=== PATIENT | male | born 1940 | race Caucasian/White ===

== ENCOUNTER → 2017-10-09 | Outpatient (CLI) | payer MEDICARE ==
[~2017-10-09] MED LIST: DOBUTamine DRIP for NUC MED 500 MG in DEXTROSE/WATER 1 250ML.BAG IV ONE
--- NOTE | 2017-10-09 13:01 | ECHOS ---
STRESS ECHOCARDIOGRAM INDICATIONS: Preoperative. BASELINE HEART RATE: 77 BASELINE BLOOD PRESSURE: 154/66 MAXIMUM HEART RATE: 132 MAXIMUM BLOOD PRESSURE: 218/65 85% MPHR: 124 100% MPHR: 146 MAXIMUM STAGE REACHED: 3 TOTAL EXERCISE TIME: 7:00 CLINICAL INFORMATION: Patient was given dobutamine infusion according to the standard protocol. Peak heart rate of 132 was achieved. Maximum blood pressure of 218/65 mmHg was noted. Resting EKG shows normal sinus rhythm with a QRS morphology suggestive of incomplete right bundle branch block pattern was noted. No ST-segment depression suggestive of ischemia was noted. Occasional PACs were noted. An occasional run of atrial tachycardia were noted. The baseline echocardiographic images reveal normal left ventricular chamber size with normal left ventricular systolic function. At the peak dose of dobutamine infusion, normal increase in the wall thickness and contractility is noted. FINAL IMPRESSION: 1. This dobutamine stress echocardiographic study is negative for stress-induced ischemia. 2. EKG portion of the stress test not suggested ischemia. 3. Intermittent premature atrial contractions and occasional runs of nonsustained atrial tachycardia were noted. MMODL / IJN: [id number] /
== END | disposition home or self-care (01) ==
LOC: RADNMMAIN 10:47
PROVIDERS: ATTEND Internal Medicine
DX: Z01.818 Encounter for other preprocedural examination (principal); I47.1 Supraventricular tachycardia
CPT/HCPCS: 93017; 93350

== ENCOUNTER → 2018-05-03 | Outpatient (CLI) | payer MEDICARE ==
--- NOTE | 2018-05-03 15:37 | ECHOF ---
Referral Reason:I48.91 Atrial Fibillation MEASUREMENTS -------- HEIGHT: 175.3 cm WEIGHT: 97.5 kg BP: 138/85 IVSd: 1.2 cm (0.6 - 1.1) LVIDd: 3.2 cm (3.9 - 5.3) LVPWd: 1.3 cm (0.6 - 1.1) IVSs: 1.5 cm LVIDs: 2.3 cm LVPWs: 1.5 cm LAESV Index (A-L): 33.82 ml/m Ao Diam: 3.5 cm (2.0 - 3.7) AV Cusp: 1.7 cm (1.5 - 2.6) LA Diam: 2.3 cm (2.7 - 3.8) MV E Alexei: 1.02 m/s MV DecT: 172 ms MV A Alexei: 0.00 m/s MV E/A Ratio: 6197 AR PHT: 492 ms RAP: 5.00 mmHg RVSP: 25.18 mmHg FINDINGS -------- Atrial fibrillation. This was a technically adequate study. The left ventricular size is normal. There is mild concentric left ventricular hypertrophy. Overa ll left ventricular systolic function is mildly impaired with, an EF between 45 - 50 %. The right ventricle is normal in size and function. LA is moderately dilated 34-39 ml/m2 The right atrium is normal in size. Aortic valve is trileaflet and is mildly thickened. There is mild aortic regurgitation. There is no evidence of aortic stenosis. The mitral valve leaflets are mildly thickened. Mild mitral annular calcification present. Modera te mitral regurgitation is present. Trace tricuspid regurgitation present. Right ventricular systolic pressure is normal at < 35 mmHg. There is no evidence of pulmonary hypertension. The pulmonic valve was not well visualized. The aortic root size is normal. Normal inferior vena cava with normal inspiratory collapse consistent with estimated right atrial pre ssure of 5 mmHg. There is no pericardial effusion. CONCLUSIONS -------- 1. Atrial fibrillation. 2. This was a technically adequate study. 3. The left ventricular size is normal. 4. There is mild concentric left ventricular hypertrophy. 5. Overall left ventricular systolic function is mildly impaired with, an EF between 45 - 50 %. 6. LA is moderately dilated 34-39 ml/m2 7. Aortic valve is trileaflet and is mildly thickened. 8. There is mild aortic regurgitation. 9. The mitral valve leaflets are mildly thickened. 10. Mild mitral annular calcification present. 11. Moderate mitral regurgitation is present. 12. Trace tricuspid regurgitation present. 13. Right ventricular systolic pressure is normal at < 35 mmHg. 14. There is no evidence of pulmonary hypertension. 15. The pulmonic valve was not well visualized. 16. The aortic root size is normal. 17. There is no pericardial effusion. POSTAL SUPERVISOR: Ari Camarena RDCS
== END | disposition home or self-care (01) ==
LOC: RADECHMAIN 11:25
PROVIDERS: ATTEND Internal Medicine
DX: I48.91 Unspecified atrial fibrillation (principal); I08.0 Rheumatic disorders of both mitral and aortic valves
CPT/HCPCS: 93306

== ENCOUNTER → 2018-05-31 | Day surgery (SDC) | payer MEDICARE ==
[2018-05-29 09:19] VITALS: BMI 32.5
[~2018-05-31] MED LIST changes: -DOBUTamine DRIP for NUC MED 500 MG in DEXTROSE/WATER 1 250ML.BAG IV ONE; +FLECAINIDE 50 MG TAB PO SCH; +LACTATED RINGERS 1,000 ML IV SCH; +LIDOCAINE 1% INJ 10MG/ML (20 ML MDV) ONE; +LOSARTAN 25 MG TAB PO SCH; +METOPROLOL TARTRATE 25 MG TAB PO SCH; +MULTIVITAMINS, THERA 1 EACH TAB PO SCH; +PROPOFOL 10 MG/ML 20 ML VIAL IV ONE; +RIVAROXABAN 20 MG TAB PO SCH; +SODIUM CHLORIDE 0.9% 1,000 ML IV SCH; +TAMSULOSIN 0.4 MG CAP.ER.24H PO SCH
[2018-05-31] MEDS: BENZOCAINE SPRAY 1 CAN MUCOUS MEM ONE ×2 (07:12→07:14)
[2018-05-31 07:15] VITALS: RESP 16
[2018-05-31 08:01] VITALS: TEMP 97.2
--- NOTE | 2018-05-31 08:21 | CE ---
CARDIAC ELECTROPHYSIOLOGY REPORT CARDIOVERSION PROCEDURE NOTE. INDICATION: Atrial fibrillation. PROCEDURE: After explaining the procedure to the patient, its risks and complications, blood pressure, heart rate, O2 saturation was monitored. After spraying the throat with Cetacaine attempt to obtain images with the transesophageal echocardiogram were unsuccessful to obtain clear images because of poor contact. At that time, the probe was removed and a synchronized biphasic 200 joules cardioversion was performed with quaker of normal sinus rhythm. There was no immediate complication. LETTY / JAVADN: [id number] /
[2018-05-31 09:20] VITALS: BP 121/75; PULSE 64
== END | disposition home or self-care (01) ==
LOC: CATHCVL 06:24
PROVIDERS: ATTEND Internal Medicine Interventional Cardiology
DX: I48.1 Persistent atrial fibrillation (principal); Z79.01 Long term (current) use of anticoagulants; I42.8 Other cardiomyopathies; I10 Essential (primary) hypertension; I25.10 Atherosclerotic heart disease of native coronary artery without angina pectoris; G47.33 Obstructive sleep apnea (adult) (pediatric); J45.909 Unspecified asthma, uncomplicated; Z79.899 Other long term (current) drug therapy; Z87.891 Personal history of nicotine dependence
CPT/HCPCS: 93005; 92960; 84132; J2001; J2704

== ENCOUNTER → 2018-06-18 | Outpatient (CLI) | payer MEDICARE ==
[2018-06-18 12:21] LABS: Basophils % (A) 1 %; Eosinophils # (A) 0.2 k/uL (0-0.7); Eosinophils % (A) 3 %; HCT 47.3 % (39.0-53.0); HGB 15.3 gm/dL (13.0-17.5); Lymphocytes # (A) 1.2 k/uL (1.0-4.8); Lymphocytes % (A) 23 %; MCH 29.5 pg (25.0-35.0); MCHC 32.2 g/dL (31.0-37.0); MCV 91.6 fL (80.0-100.0); Mean Platelet Volume 6.9; Monocytes # (A) 0.3 k/uL (0-1.0); Monocytes % (A) 7 %; Neutrophils # (A) 3.2 k/uL (1.3-7.7); Neutrophils % (A) 64 %; Platelet Count 189 k/uL (150-450); RBC 5.17 m/uL (4.30-5.90); WBC 5.1 k/uL (3.8-10.6)
[2018-06-18 12:32] LABS: Potassium 4.9 mmol/L (3.5-5.1)
== END | disposition home or self-care (01) ==
LOC: LABPAT 11:41
PROVIDERS: ATTEND Internal Medicine Interventional Cardiology
DX: Z01.812 Encounter for preprocedural laboratory examination (principal); I48.1 Persistent atrial fibrillation
CPT/HCPCS: 36415; 80051; 82565; 84520; 85025

== ENCOUNTER → 2018-07-05 | Day surgery (SDC) | payer MEDICARE ==
[2018-07-04 08:49] VITALS: BMI 26.5
[~2018-07-05] MED LIST changes: +AMIODARONE 200 MG TAB PO SCH; -FLECAINIDE 50 MG TAB PO SCH; +FOLIC ACID 800 MG PO SCH; +IV FLUID CONTINUATION 1,000 ML IV ONE; -LIDOCAINE 1% INJ 10MG/ML (20 ML MDV) ONE; +NON-FORMULARY DRUG (Cyanocobalamin (Vitamin B-12) [Vitamin B-12] 1,000 MCG) PO SCH
[2018-07-05 06:57] VITALS: TEMP 98.8
--- NOTE | 2018-07-05 08:15 | CE ---
CARDIAC ELECTROPHYSIOLOGY REPORT PROCEDURE: Cardioversion. INDICATION: Atrial fibrillation PROCEDURE IN DETAIL: After explaining the procedure to the patient, its risks and complication, obtaining sedated state per Anesthesia Department, a synchronized biphasic cardioversion using 200 joules was performed with jehovah's witness normal sinus rhythm. There was no immediate complication. LETTY / ESPINOZA: [id number] /
[2018-07-05 08:26] VITALS: RESP 18
[2018-07-05 09:42] VITALS: BP 126/72; PULSE 84
== END | disposition home or self-care (01) ==
LOC: CATHCVL 06:20
PROVIDERS: ATTEND Internal Medicine Interventional Cardiology
DX: I48.1 Persistent atrial fibrillation (principal); I10 Essential (primary) hypertension; I48.92 Unspecified atrial flutter; Z79.899 Other long term (current) drug therapy; I42.9 Cardiomyopathy, unspecified; M19.90 Unspecified osteoarthritis, unspecified site; Z86.718 Personal history of other venous thrombosis and embolism; Z96.653 Presence of artificial knee joint, bilateral; Z79.01 Long term (current) use of anticoagulants; Z82.49 Family history of ischemic heart disease and other diseases of the circulatory system
CPT/HCPCS: 92960; J2704

== ENCOUNTER 2018-08-16 20:43 | Emergency (ER) | payer MEDICARE ==
[2018-08-16 20:51] VITALS: TEMP 98.4
[2018-08-16] MEDS ORDERED: diphenhydrAMINE 50 MG CAP PO STA (20:58)
[2018-08-16 21:45] VITALS: BP 142/78; PULSE 68; RESP 16
--- NOTE | 2018-08-16 21:55 | ED ---
Allergic Reaction HPI - General Source: patient Mode of arrival: ambulatory Limitations: no limitations <Janeen Garza - Last Filed: 08/17/18 00:09> <Arina Cardoza - Last Filed: 08/17/18 01:19> - General Chief complaint: Allergic Reaction Stated complaint: allergic reaction Time Seen by Provider: 08/16/18 20:58 - History of Present Illness Initial Comments: 77-year-old male with past medical history of atrial fibrillation asthma presenting today for chief complaint of hives. Patient states that 20 years ago he had an ALLERGIC reaction to shrimp. Today he was eating shrimp, which he has been doing for the last 10 years without any allergic reaction since the isolated reaction 20 years ago. 20 minutes prior to ingestion of the shrimp patient noticed hives over the face chest and upper extremities as well as the abdomen. Patient denies any lip swelling, tongue swelling, neck swelling, difficulty breathing, dyspnea or coffee swallowing, dizziness headache or confusion. Patient denies any diarrhea, fever. Patient states that he feels well he was just concerned he was having ALLERGIC reaction due to the hives and decided to present to the emergency department. Patient denies any new medications. Pt admits to pruritus. Pt did not take anything prior to arrival. Upon arrival patient appears well. VS stable. (Janeen Garza) - Related Data Home Medications Medication Instructions Recorded Confirmed Albuterol Inhaler [Ventolin Hfa 1 - 2 puff INHALATION Q6HR PRN 05/29/18 07/05/18 Inhaler] Cyanocobalamin (Vitamin B-12) 1,000 mcg PO DAILY 05/29/18 07/05/18 [Vitamin B-12] Folic Acid 800 mg PO DAILY 05/29/18 07/04/18 Losartan Potassium [Cozaar] 25 mg PO HS 05/29/18 07/04/18 Metoprolol Tartrate 25 mg PO BID 05/29/18 07/04/18 Multivitamins, Thera [Multivitamin 1 tab PO DAILY 05/29/18 07/04/18 (formulary)] Rivaroxaban [Xarelto] 20 mg PO HS 05/29/18 07/05/18 Tamsulosin HCl [Flomax] 0.4 mg PO HS 05/29/18 07/05/18 Previous Rx's Medication Instructions Recorded Amiodarone [Cordarone] 200 mg PO DAILY #90 tab 07/05/18 Cetirizine HCl [Zyrtec] 10 mg PO DAILY 7 Days #7 tab 08/16/18 Allergies Allergy/AdvReac Type Severity Reaction Status Date / Time shellfish derived [Shrimp] Allergy Rash/Hives Verified 08/16/18 20:51 Review of Systems ROS Other: All systems not noted in ROS Statement are negative. Constitutional: Denies: fever Eyes: Denies: vision change ENT: Denies: throat pain Respiratory: Denies: cough, dyspnea, wheezes, hemoptysis, stridor Cardiovascular: Denies: chest pain, dyspnea on exertion, syncope Gastrointestinal: Denies: abdominal pain, nausea, vomiting, diarrhea, constipation Skin: Reports: rash (CHPI) Neurological: Denies: headache, weakness, numbness, paresthesias, confusion, abnormal gait <Janeen Garza L - Last Filed: 08/17/18 00:09> ROS Other: All systems not noted in ROS Statement are negative. <Arina Cardoza P - Last Filed: 08/17/18 01:19> ROS Statement: Those systems with pertinent positive or pertinent negative responses have been documented in the HPI. Past Medical History Past Medical History: Atrial Fibrillation, Asthma, Deep Vein Thrombosis (DVT), Hearing Disorder / Deafness, Osteoarthritis (OA), Pneumonia Additional Past Medical History / Comment(s): Hx pneumonia yrs ago. Hiatal hernia. Hx kidney stones. Use of bilateral hearing aids. History of Any Multi-Drug Resistant Organisms: None Reported Past Surgical History: Joint Replacement Additional Past Surgical History / Comment(s): Bilateral knee replacements., LIS and cardioversion 05/31/18 Past Anesthesia/Blood Transfusion Reactions: No Reported Reaction Past Psychological History: No Psychological Hx Reported Smoking Status: Former smoker Past Alcohol Use History: Rare Past Drug Use History: None Reported - Past Family History Mother Family Medical History: No Reported History <Janeen Garza - Last Filed: 08/17/18 00:09> General Exam Limitations: no limitations <Janeen Garza - Last Filed: 08/17/18 00:09> <Arina Cardoza P - Last Filed: 08/17/18 01:19> - General Exam Comments Initial Comments: General: The patient is awake and alert, in no distress, and does not appear acutely ill. Eye: Pupils are equal, round and reactive to light, extra-ocular movements are intact. No nystagmus. There is normal conjunctiva bilaterally. No signs of icterus. Ears, nose, mouth and throat: There are moist mucous membranes and no oral lesions. No swelling noted of the tongue, lips neck or face Neck: The neck is supple, there is no tenderness or JVD. Cardiovascular: There is a regular rate and rhythm. No murmur, rub or gallop is appreciated. Respiratory: Lungs are clear to auscultation, respirations are non-labored, breath sounds are equal. No wheezes, stridor, rales, or rhonchi. Musculoskeletal: Normal ROM, no tenderness. Strength 5/5. Sensation intact. Pulses equal bilaterally 2+. Neurological: A&O x 3. CN II-XII intact, There are no obvious motor or sensory deficits. Coordination appears grossly intact. Speech is normal. Skin: Skin is warm and dry. Raised wheels of various sizes on UE bilaterally face, chest and abdomen. Psychiatric: Cooperative, appropriate mood & affect, normal judgment. (Janeen Garza) Vital Signs 08/16/18 08/16/18 20:48 21:43 Temperature 98.4 F Pulse Rate 87 68 Respiratory 18 16 Rate Blood Pressure 125/66 142/78 O2 Sat by Pulse 98 99 Oximetry Medical Decision Making <Janeen Garza - Last Filed: 08/17/18 00:09> <Arina Cardoza - Last Filed: 08/17/18 01:19> - Medical Decision Making Patient evaluated by myself and Dr. Cardoza in person. Patient has uticaria in the areas mentioned above. Patient was given 50 mg of Benadryl. Patient stated that this helped with the itching, and the wheals appear to diminish in size and an in the affected areas. Patient does not show any signs of respiratory distress, anaphylactic or angioedema. Patient states that he is ready to go home. Patient is given a prescription for Zyrtec 1 tablet daily for 7 days or until symptom resolution and take Benadryl every 6-8 hours as directed on bottle for itching. Patient is to follow-up with primary care provider one to two days. Patient was instructed to refrain from eating any types of shellfish. As well as obtain a referral from primary care provider for an fitter machinist. Patient agrees with this plan. Plan discussed with Dr. Cardoza who agrees. Patient discharged in stable condition (Janeen Garza) I personally saw and evaluated the patient. He had no oral pharyngeal swelling. No angioedema. No wheezing. No complaint of chest tightness or tightness in his throat. He did note to have a couple of hives on his left forearm. These it improved after taking Benadryl. This 70 feel the patient is stable for discharge home. Return parameters were discussed. Avoidance of shellfish was discussed. All questions pertaining care were answered best my ability patient was discharged home in stable condition (Arina Cardoza) Disposition Is patient prescribed a controlled substance at d/c from ED?: No Time of Disposition: 21:54 <Janeen Garza - Last Filed: 08/17/18 00:09> <Arina Cardoza - Last Filed: 08/17/18 01:19> Clinical Impression: Acute urticaria, Shellfish allergy Disposition: HOME SELF-CARE Condition: Good Instructions: Urticaria (ED) Additional Instructions: Please use medication as discussed. Please follow-up with family doctor in the next 2 days, for fitter machinist referral. PLEASE AVOID ALL SHELLFISH as discussed. Please return to emergency room if the symptoms increase or worsen or for any other concerns. Prescriptions: Cetirizine HCl [Zyrtec] 10 mg PO DAILY 7 Days #7 tab Referrals: Buzz Zimmerman MD [Primary Care Provider] - 1-2 days
== END 2018-08-16 22:07 | disposition home or self-care (01) ==
LOC: EC 20:43
DX: L50.9 Urticaria, unspecified (principal); I25.10 Atherosclerotic heart disease of native coronary artery without angina pectoris; Z91.013 Allergy to seafood; Z86.718 Personal history of other venous thrombosis and embolism; Z96.653 Presence of artificial knee joint, bilateral; Z87.891 Personal history of nicotine dependence; Z79.01 Long term (current) use of anticoagulants; Z79.899 Other long term (current) drug therapy
CPT/HCPCS: 99282

== ENCOUNTER → 2018-09-03 | Outpatient (CLI) | payer MEDICARE ==
[2018-09-03 13:04] LABS: Calcium 9.3 mg/dL (8.4-10.2); Potassium 4.6 mmol/L (3.5-5.1)
== END ==
LOC: LABWHC1 12:01
PROVIDERS: ATTEND Internal Medicine Interventional Cardiology
DX: I48.1 Persistent atrial fibrillation (principal); I10 Essential (primary) hypertension; I42.8 Other cardiomyopathies
CPT/HCPCS: 36415; 80048; 84443

== ENCOUNTER → 2021-03-08 | Outpatient (CLI) | payer MEDICARE ==
--- NOTE | 2021-03-08 15:05 | US ---
EXAMINATION TYPE: US venous doppler duplex LE RT DATE OF EXAM: 03/08/2021 2:51 PM COMPARISON: NONE CLINICAL HISTORY: 80-year-old male S80.11XA, Hematoma R Lower Extremity, Pain L Lower. History of DVT years ago, on Xarelto, recent rubio injury during fall, palpable at injury SIDE PERFORMED: Right TECHNIQUE: The lower extremity deep venous system is examined utilizing real time linear array sonog reynaldo with graded compression, doppler sonography and color-flow sonography. VESSELS IMAGED: Common Femoral Vein Deep Femoral Vein Greater Saphenous Vein * Femoral Vein Popliteal Vein Small Saphenous Vein * Proximal Calf Veins Posterior tibial vein (* superficial vessels) Right Leg: Negative for DVT. There is a 4.3 cm complex collection along the anterior rubio at area of palpable and injury IMPRESSION: 1. No evidence for DVT within the right lower extremity. 2. A 4.3 cm complex collection within the subcutaneous layer of the anterior right rubio along the sit e of patient's injury. Findings most likely reflects a hematoma. Clinical follow-up to ensure gradual involution. If the finding persists or enlarges, repeat ultrasound will be recommended.
== END | disposition home or self-care (01) ==
LOC: RADUSWWP 14:19
PROVIDERS: ATTEND Internal Medicine
DX: S80.11XA Contusion of right lower leg, initial encounter (principal); Z86.718 Personal history of other venous thrombosis and embolism

== ENCOUNTER → 2021-04-07 | Outpatient (CLI) | payer MEDICARE ==
--- NOTE | 2021-04-07 15:35 | CT ---
EXAMINATION TYPE: CT angio lower extremity RT DATE OF EXAM: 04/07/2021 COMPARISON: None HISTORY: 80-year-old male S80.11XA , Right lower leg hematoma after fall. TECHNIQUE: Contiguous axial scanning of the abdomen and pelvis with bilateral lower extremity runoff performed with IV Contrast, patient injected with 100ml mL of Isovue 370. Arterial imaging is perform ed. Coronal/sagittal reconstructions performed. 3-D reconstructions generated on a dedicated workstat ion. CT DLP: 1553.4 mGycm Automated exposure control for dose reduction was used. FINDINGS: Abdomen: Heart mildly enlarged. No pericardial effusion. Small hiatal hernia. Some patchy changes in the lower lungs probably areas of atelectasis. Calcified granuloma left base. Arterial phase imaging of the liver, gallbladder, adrenal glands, spleen, pancreas shows no gross abn ormality. 5 mm nonobstructive right renal calculus. A couple 4 mm nonobstructive left renal calculi and a 1.4 c m cortical hypodensity lower pole left kidney likely cysts. No dilated small bowel, free fluid, or free air. No mesenteric or retroperitoneal lymphadenopathy. Normal appendix. Mild stool burden. Mildly redundant sigmoid colon. No pericolonic inflammatory blake es. Small fatty umbilical hernia. Pelvis: Bladder partially distended. Prostate gland mildly enlarged at 4.6 cm wide. No abnormal fluid collect ion in the pelvis. Inguinal lymph nodes some of which are borderline to mildly enlarged measuring up to 1.8 cm on the left and 1.7 cm on the right, refer to coronal image 22 and 27. Lower extremities: Bilateral total knee arthroplasties result in extensive metal hardware artifact limiting the evaluati on. Asymmetric soft tissue swelling of the right leg, right ankle, and right foot. No edema along the rebeca per fascial planes and no soft tissue air is seen. Vasculature: No evidence for AAA. The visceral arteries of the abdomen are patent. Duplex right renal artery. Scat tered mild atherosclerotic calcifications infrarenal abdominal aorta. There is normal bilateral runoff into the foot with only small segments of the bilateral popliteal ar charlene obscured by the metal hardware artifact. Bones: Moderate degenerative disc disease L2-L3. Hypertrophic facet arthropathy mid to lower lumbar spine. G rade 1 anterolisthesis of L4-L5. Bulky anterior plate spondylosis lower thoracic spine. IMPRESSION: 1. NORMAL BILATERAL LOWER EXTREMITY RUNOFF. 2. ASYMMETRIC SOFT TISSUE SWELLING OF THE RIGHT LEG, ANKLE, AND FOOT. NO SIZABLE FOCAL HEMATOMA SEEN. 3. BORDERLINE AND MILDLY ENLARGED INGUINAL LYMPH NODES ON BOTH SIDES MEASURING UP TO 1.8 CM PROBABLY REACTIVE/POST INFLAMMATORY. RECOMMEND CLINICAL FOLLOW-UP TO ENSURE STABILITY/RESOLUTION. 4. NONOBSTRUCTIVE BILATERAL RENAL CALCULI MEASURING UP TO 5 MM. SMALL HIATAL HERNIA.
== END | disposition home or self-care (01) ==
LOC: RADCTMAIN 13:06
PROVIDERS: ATTEND Internal Medicine
DX: S80.11XA Contusion of right lower leg, initial encounter (principal); N20.0 Calculus of kidney; K44.9 Diaphragmatic hernia without obstruction or gangrene
CPT/HCPCS: 73706; Q9967

== ENCOUNTER 2021-10-07 12:11 | Inpatient (IN) | payer MEDICARE ==
[2021-10-07] MEDS ORDERED: ACETAMINOPHEN TAB 500 MG TAB PO STA (13:45)
--- NOTE | 2021-10-07 13:45 | XR ---
EXAMINATION TYPE: XR chest 2V DATE OF EXAM: 10/07/2021 COMPARISON: 12/31/2014 TECHNIQUE: PA and lateral views submitted. HISTORY: Cough FINDINGS: Elevated hemidiaphragms with bilateral areas of patchy infiltrate. Biapical pleural thickening. Heart size normal. Degenerative changes of the spine. Coarsened interstitium. Prominent contour of the asc ending aorta. IMPRESSION: 1. Patchy bilateral infiltrates correlate for pneumonia. 2. Prominence of the ascending aorta. Aneurysm not excluded.
[2021-10-07] MEDS ORDERED: IPRATROPIUM-ALBUTEROL 3 ML NEB INHALATION PRN (14:19)
[2021-10-07] MEDS: guaiFENesin-Coden 100-10MG/5ML 10 ML CUP PO PRN (14:38)
[2021-10-07 14:47] LABS: Basophils % (A) 0 %; Eosinophils # (A) 0.1 k/uL (0-0.7); Eosinophils % (A) 1 %; HCT 48.7 % (39.0-53.0); Lymphocytes # (A) 0.6 k/uL (1.0-4.8); Lymphocytes % (A) 7 %; MCH 31.1 pg (25.0-35.0); MCHC 32.8 g/dL (31.0-37.0); MCV 94.9 fL (80.0-100.0); Mean Platelet Volume 7.5; Monocytes # (A) 0.2 k/uL (0-1.0); Monocytes % (A) 3 %; Neutrophils # (A) 7.6 k/uL (1.3-7.7); Neutrophils % (A) 87 %; Platelet Count 153 k/uL (150-450); RBC 5.13 m/uL (4.30-5.90); WBC 8.7 k/uL (3.8-10.6)
[2021-10-07 15:02] LABS: Albumin 4.3 g/dL (3.5-5.0); Calcium 9.5 mg/dL (8.4-10.2); Potassium 4.5 mmol/L (3.5-5.1); Total Bilirubin 0.9 mg/dL (0.2-1.3); Total Protein 7.1 g/dL (6.3-8.2)
[2021-10-07 15:15] LABS: INR 1.1 (<1.2); Prothrombin Time 11.6 sec (9.0-12.0)
[2021-10-07 15:16] LABS: Partial Thromboplastin Time 28.4 sec (22.0-30.0)
[2021-10-07] MEDS ORDERED: methylPREDNISolone SOD SUCCI 125 MG/2 ML VIAL IV STA (15:20)
[2021-10-07] MEDS ORDERED: AZITHROMYCIN 500 MG in SODIUM CHLORIDE 0.9% 250 ML IVPB STA (15:22)
[2021-10-07] MEDS ORDERED: cefTRIAXone IN SWFI 1,000 MG/10 ML SYRINGE IVP STA (15:22)
--- NOTE | 2021-10-07 15:23 | ED ---
SOB HPI - General Chief Complaint: Shortness of Breath Stated Complaint: SOB/Cough Time Seen by Provider: 10/07/21 13:43 Source: patient Mode of arrival: ambulatory Limitations: no limitations - History of Present Illness Initial Comments: 80-year-old male with past medical history of asthma, A. fib on Eliquis presents to the emergency department with shortness of breath and productive cough 4 days. Patient has been using his inhaler without improvement. He saw Dr. Zimmerman in office who placed him on steroids and antibiotics. He has taken 1 day worth of medication without improvement. He was reevaluated today and in office they found him to have oxygen saturation in the low 80s. RSV did return and was positive. Due to low oxygen saturations, Dr. Zimmerman sent him into the emergency department for admission. Admits to chills. No chest pain. No history of heart failure. Denies any sick contacts no nausea, vomiting or diarrhea. No other alleviating, precipitating or modifying factors - Related Data Home Medications Medication Instructions Recorded Confirmed Cyanocobalamin (Vitamin B-12) 2,000 mcg PO DAILY 05/29/18 10/07/21 [Vitamin B-12] Losartan Potassium [Cozaar] 25 mg PO DIRECTED 05/29/18 10/07/21 Metoprolol Tartrate 25 mg PO BID 05/29/18 10/07/21 Multivitamins, Thera [Multivitamin 1 tab PO DAILY 05/29/18 10/07/21 (formulary)] Rivaroxaban [Xarelto] 20 mg PO HS 05/29/18 10/07/21 Tamsulosin HCl [Flomax] 0.4 mg PO HS 05/29/18 10/07/21 Albuterol Sulfate [Albuterol 2 puff PO RT-Q6H PRN 10/07/21 10/07/21 Sulfate Hfa] Amiodarone [Cordarone] 100 mg PO DIRECTED 10/07/21 10/07/21 Azithromycin [Zithromax Z-pack (6 See Taper PO DIRECTED 10/07/21 10/07/21 tabs)] Folic Acid 0.4 mg PO DAILY 10/07/21 10/07/21 methylPREDNISolone [Medrol Dose See Taper PO DIRECTED 10/07/21 10/07/21 Pack] Allergies Allergy/AdvReac Type Severity Reaction Status Date / Time shellfish derived [Shrimp] Allergy Rash/Hives Verified 10/07/21 15:35 Review of Systems ROS Statement: Those systems with pertinent positive or pertinent negative responses have been documented in the HPI. ROS Other: All systems not noted in ROS Statement are negative. Past Medical History Past Medical History: Atrial Fibrillation, Asthma, Deep Vein Thrombosis (DVT), Hearing Disorder / Deafness, Osteoarthritis (OA), Pneumonia Additional Past Medical History / Comment(s): Hx pneumonia yrs ago. Hiatal hernia. Hx kidney stones. Use of bilateral hearing aids. History of Any Multi-Drug Resistant Organisms: None Reported Past Surgical History: Joint Replacement Additional Past Surgical History / Comment(s): Bilateral knee replacements., LIS and cardioversion 05/31/18 Past Anesthesia/Blood Transfusion Reactions: No Reported Reaction Past Psychological History: No Psychological Hx Reported Smoking Status: Never smoker Past Alcohol Use History: Rare Past Drug Use History: None Reported - Past Family History Mother Family Medical History: No Reported History General Exam Limitations: no limitations General appearance: alert, in no apparent distress Head exam: Present: atraumatic, normocephalic, normal inspection Eye exam: Present: normal appearance, PERRL, EOMI. Absent: scleral icterus, conjunctival injection, periorbital swelling ENT exam: Present: normal exam, mucous membranes moist Neck exam: Present: normal inspection. Absent: tenderness, meningismus, lymphadenopathy Respiratory exam: Present: wheezes, other (tachypnia). Absent: respiratory distress, rales, rhonchi, stridor Cardiovascular Exam: Present: regular rate, normal rhythm, normal heart sounds. Absent: systolic murmur, diastolic murmur, rubs, gallop, clicks GI/Abdominal exam: Present: soft, normal bowel sounds. Absent: distended, tenderness, guarding, rebound, rigid Extremities exam: Present: normal inspection, full ROM, normal capillary refill. Absent: tenderness, pedal edema, joint swelling, calf tenderness Back exam: Present: normal inspection Neurological exam: Present: alert, oriented X3, CN II-XII intact Psychiatric exam: Present: normal affect, normal mood Skin exam: Present: warm, dry, intact, normal color. Absent: rash Course Vital Signs 10/07/21 10/07/21 10/07/21 13:09 14:02 14:44 Temperature 100.7 F H Pulse Rate 101 H 94 Respiratory 21 24 Rate Blood Pressure 119/82 O2 Sat by Pulse 87 L Oximetry 10/07/21 10/07/21 10/07/21 14:59 19:45 19:48 Temperature 97.9 F Pulse Rate 104 H 86 Respiratory 24 Rate Blood Pressure 148/87 O2 Sat by Pulse 87 L Oximetry 10/07/21 10/07/21 10/07/21 19:51 20:21 20:41 Temperature Pulse Rate 88 100 100 Respiratory 17 20 Rate Blood Pressure 127/78 O2 Sat by Pulse 92 L Oximetry 10/07/21 21:45 Temperature Pulse Rate 110 H Respiratory 24 Rate Blood Pressure 132/80 O2 Sat by Pulse 91 L Oximetry Medical Decision Making - Medical Decision Making Upon arrival patient was placed into room 21. Patient originally satting 87%. Placed on 4 L nasal cannula. Labs performed. Chest x-ray demonstrates patchy bilateral infiltrates. Blood cultures obtained patient given Rocephin and azithro. Patient also given DuoNeb breathing treatments and steroids. Patient will be admitted to Dr. Zimmerman. Patient agreed to the treatment plan and is aw aiting a bed - Lab Data Result diagrams: 10/13/21 03:19 10/13/21 03:19 Lab Results 10/07/21 10/07/21 10/07/21 Range/Units 13:15 14:30 14:30 WBC 8.7 (3.8-10.6) k/uL RBC 5.13 (4.30-5.90) m/uL Hgb 16.0 (13.0-17.5) gm/dL Hct 48.7 (39.0-53.0) % MCV 94.9 (80.0-100.0) fL MCH 31.1 (25.0-35.0) pg MCHC 32.8 (31.0-37.0) g/dL RDW 14.0 (11.5-15.5) % Plt Count 153 (150-450) k/uL MPV 7.5 Neutrophils % 87 % Lymphocytes % 7 % Monocytes % 3 % Eosinophils % 1 % Basophils % 0 % Neutrophils # 7.6 (1.3-7.7) k/uL Lymphocytes # 0.6 L (1.0-4.8) k/uL Monocytes # 0.2 (0-1.0) k/uL Eosinophils # 0.1 (0-0.7) k/uL Basophils # 0.0 (0-0.2) k/uL PT 11.6 (9.0-12.0) sec INR 1.1 (<1.2) APTT 28.4 (22.0-30.0) sec Sodium (137-145) mmol/L Potassium (3.5-5.1) mmol/L Chloride (98-107) mmol/L Carbon Dioxide (22-30) mmol/L Anion Gap mmol/L BUN (9-20) mg/dL Creatinine (0.66-1.25) mg/dL Est GFR (CKD-EPI)AfAm (>60 ml/min/1.73 sqM) Est GFR (CKD-EPI)NonAf (>60 ml/min/1.73 sqM) Glucose (74-99) mg/dL Plasma Lactic Acid Efren (0.7-2.0) mmol/L Calcium (8.4-10.2) mg/dL Magnesium (1.6-2.3) mg/dL Total Bilirubin (0.2-1.3) mg/dL AST (17-59) U/L ALT (4-49) U/L Alkaline Phosphatase (38-126) U/L Total Protein (6.3-8.2) g/dL Albumin (3.5-5.0) g/dL Coronavirus (PCR) Not Detected (Not Detectd) 10/07/21 10/07/21 Range/Units 14:30 14:30 WBC (3.8-10.6) k/uL RBC (4.30-5.90) m/uL Hgb (13.0-17.5) gm/dL Hct (39.0-53.0) % MCV (80.0-100.0) fL MCH (25.0-35.0) pg MCHC (31.0-37.0) g/dL RDW (11.5-15.5) % Plt Count (150-450) k/uL MPV Neutrophils % % Lymphocytes % % Monocytes % % Eosinophils % % Basophils % % Neutrophils # (1.3-7.7) k/uL Lymphocytes # (1.0-4.8) k/uL Monocytes # (0-1.0) k/uL Eosinophils # (0-0.7) k/uL Basophils # (0-0.2) k/uL PT (9.0-12.0) sec INR (<1.2) APTT (22.0-30.0) sec Sodium 138 (137-145) mmol/L Potassium 4.5 (3.5-5.1) mmol/L Chloride 105 (98-107) mmol/L Carbon Dioxide 23 (22-30) mmol/L Anion Gap 10 mmol/L BUN 19 (9-20) mg/dL Creatinine 1.04 (0.66-1.25) mg/dL Est GFR (CKD-EPI)AfAm 80 (>60 ml/min/1.73 sqM) Est GFR (CKD-EPI)NonAf 69 (>60 ml/min/1.73 sqM) Glucose 118 H (74-99) mg/dL Plasma Lactic Acid Efren 1.5 (0.7-2.0) mmol/L Calcium 9.5 (8.4-10.2) mg/dL Magnesium 2.0 (1.6-2.3) mg/dL Total Bilirubin 0.9 (0.2-1.3) mg/dL AST 41 (17-59) U/L ALT 20 (4-49) U/L Alkaline Phosphatase 112 (38-126) U/L Total Protein 7.1 (6.3-8.2) g/dL Albumin 4.3 (3.5-5.0) g/dL Coronavirus (PCR) (Not Detectd) - EKG Data EKG Comments: EKG demonstrates significant baseline artifact. Sinus rhythm with rate of 92. KS interval 206. QRS 108. QTC 511. No acute ST segment elevations Disposition Clinical Impression: Hypoxia, RSV (respiratory syncytial virus infection), Pyrexia Disposition: ADMITTED IP TO THIS HOSP Condition: Stable Is patient prescribed a controlled substance at d/c from ED?: No Decision to Admit Reason: Admit from EC Decision Date: 10/07/21 Decision Time: 15:26
[2021-10-07] MEDS ORDERED: IBUPROFEN 400 MG TAB PO PRN (15:26)
[2021-10-07] MEDS ORDERED: NALOXONE 0.4 MG/ML 1 ML VIAL IV PRN (15:26)
[2021-10-07] MEDS ORDERED: IPRATROPIUM 0.5 MG/2.5 ML NEBU INHALATION STA (19:40)
[2021-10-07] MEDS ORDERED: ALBUTEROL NEBULIZED 2.5 MG/3 ML INHALATION STA (19:40)
[2021-10-07 20:55] LABS: ABG Base Excess -0.1 mmol/L; ABG HCO3 25 mmol/L (21-25); ABG PCO2 40 mmHg (35-45); ABG PO2 72 mmHg (83-108); ABG TCO2 26 mmol/L (19-24); Allen Test Performed? Yes
[2021-10-07] MEDS ORDERED: methylPREDNISolone SOD SUCCI 125 MG/2 ML VIAL IV SCH (21:00)
--- NOTE | 2021-10-07 21:10 | ED ---
Medical Decision Making - Medical Decision Making Was brought to attention by the nurse that patient was having worsening dyspnea and hypoxia on a nonrebreather. He was moved from bed 21 into trauma bay #2. Is placed on BiPAP with BiPAP settings of 16 and 7. Patient was evaluated at the bedside. He had diminished breath sounds bilaterally. Patient given a breathing treatment of 10 of albuterol and 0.5 Atrovent. ABG was obtained showing pH of 7.397 pCO2 40.4 and a pO2 of 72.4 with 100% FiO2. Clinical presentation concerning for hypoxic respiratory failure. Patient had be given antibiotic steroids. Dr. Lopez was notified who requested the patient be placed in the ICU. Nurse requested that I speak with the clinical secretary. Patient was evaluated at the bedside after breathing treatment with improvement of symptoms. He is moving air much better and reports significant improvement. Clinical presentation concerning for acute bronchospasm. Case was discussed with Dr. Palafox, on behalf of Dr. Zimmerman who is agreeable for patient to be admitted to intensive care unit. - Lab Data Result diagrams: 10/07/21 14:30 10/07/21 14:30 Lab Results 10/07/21 10/07/21 10/07/21 Range/Units 13:15 14:30 14:30 WBC 8.7 (3.8-10.6) k/uL RBC 5.13 (4.30-5.90) m/uL Hgb 16.0 (13.0-17.5) gm/dL Hct 48.7 (39.0-53.0) % MCV 94.9 (80.0-100.0) fL MCH 31.1 (25.0-35.0) pg MCHC 32.8 (31.0-37.0) g/dL RDW 14.0 (11.5-15.5) % Plt Count 153 (150-450) k/uL MPV 7.5 Neutrophils % 87 % Lymphocytes % 7 % Monocytes % 3 % Eosinophils % 1 % Basophils % 0 % Neutrophils # 7.6 (1.3-7.7) k/uL Lymphocytes # 0.6 L (1.0-4.8) k/uL Monocytes # 0.2 (0-1.0) k/uL Eosinophils # 0.1 (0-0.7) k/uL Basophils # 0.0 (0-0.2) k/uL PT 11.6 (9.0-12.0) sec INR 1.1 (<1.2) APTT 28.4 (22.0-30.0) sec Sodium (137-145) mmol/L Potassium (3.5-5.1) mmol/L Chloride (98-107) mmol/L Carbon Dioxide (22-30) mmol/L Anion Gap mmol/L BUN (9-20) mg/dL Creatinine (0.66-1.25) mg/dL Est GFR (CKD-EPI)AfAm (>60 ml/min/1.73 sqM) Est GFR (CKD-EPI)NonAf (>60 ml/min/1.73 sqM) Glucose (74-99) mg/dL Plasma Lactic Acid Efren (0.7-2.0) mmol/L Calcium (8.4-10.2) mg/dL Magnesium (1.6-2.3) mg/dL Total Bilirubin (0.2-1.3) mg/dL AST (17-59) U/L ALT (4-49) U/L Alkaline Phosphatase (38-126) U/L Total Protein (6.3-8.2) g/dL Albumin (3.5-5.0) g/dL Coronavirus (PCR) Not Detected (Not Detectd) 10/07/21 10/07/21 Range/Units 14:30 14:30 WBC (3.8-10.6) k/uL RBC (4.30-5.90) m/uL Hgb (13.0-17.5) gm/dL Hct (39.0-53.0) % MCV (80.0-100.0) fL MCH (25.0-35.0) pg MCHC (31.0-37.0) g/dL RDW (11.5-15.5) % Plt Count (150-450) k/uL MPV Neutrophils % % Lymphocytes % % Monocytes % % Eosinophils % % Basophils % % Neutrophils # (1.3-7.7) k/uL Lymphocytes # (1.0-4.8) k/uL Monocytes # (0-1.0) k/uL Eosinophils # (0-0.7) k/uL Basophils # (0-0.2) k/uL PT (9.0-12.0) sec INR (<1.2) APTT (22.0-30.0) sec Sodium 138 (137-145) mmol/L Potassium 4.5 (3.5-5.1) mmol/L Chloride 105 (98-107) mmol/L Carbon Dioxide 23 (22-30) mmol/L Anion Gap 10 mmol/L BUN 19 (9-20) mg/dL Creatinine 1.04 (0.66-1.25) mg/dL Est GFR (CKD-EPI)AfAm 80 (>60 ml/min/1.73 sqM) Est GFR (CKD-EPI)NonAf 69 (>60 ml/min/1.73 sqM) Glucose 118 H (74-99) mg/dL Plasma Lactic Acid Efren 1.5 (0.7-2.0) mmol/L Calcium 9.5 (8.4-10.2) mg/dL Magnesium 2.0 (1.6-2.3) mg/dL Total Bilirubin 0.9 (0.2-1.3) mg/dL AST 41 (17-59) U/L ALT 20 (4-49) U/L Alkaline Phosphatase 112 (38-126) U/L Total Protein 7.1 (6.3-8.2) g/dL Albumin 4.3 (3.5-5.0) g/dL Coronavirus (PCR) (Not Detectd) Critical Care Time Critical Care Time: Yes Total Critical Care Time: 33 Disposition Clinical Impression: Hypoxia, RSV (respiratory syncytial virus infection), Pyrexia Disposition: ADMITTED IP TO THIS [facility] Condition: Stable
[2021-10-07 22:00] LABS: Glucose,Whole Blood 176 mg/dL (75-99)
[2021-10-08] MEDS: methylPREDNISolone SOD SUCCI 40 MG/ML 1 ML VIAL IV SCH ×2 (01:10→05:54)
[2021-10-08 04:19] LABS: Basophils % (A) 0 %; Eosinophils % (A) 0 %; HCT 45.4 % (39.0-53.0); HGB 15.4 gm/dL (13.0-17.5); Lymphocytes # (A) 0.5 k/uL (1.0-4.8); Lymphocytes % (A) 5 %; MCH 32.4 pg (25.0-35.0); MCHC 33.9 g/dL (31.0-37.0); MCV 95.4 fL (80.0-100.0); Mean Platelet Volume 7.8; Monocytes # (A) 0.2 k/uL (0-1.0); Monocytes % (A) 2 %; Neutrophils # (A) 9.3 k/uL (1.3-7.7); Neutrophils % (A) 93 %; Platelet Count 156 k/uL (150-450); RBC 4.75 m/uL (4.30-5.90); WBC 9.9 k/uL (3.8-10.6)
[2021-10-08 04:35] LABS: Calcium 9.1 mg/dL (8.4-10.2); Potassium 3.9 mmol/L (3.5-5.1)
[2021-10-08] MEDS ORDERED: IPRATROPIUM-ALBUTEROL 3 ML NEB INHALATION PRN (07:52)
[2021-10-08] MEDS ORDERED: AMIODARONE 200 MG TAB PO SCH (08:00)
[2021-10-08] MEDS ORDERED: LOSARTAN 25 MG TAB PO SCH (08:00)
[2021-10-08] MEDS: BUDESONIDE 1 MG/2 ML NEBU INHALATION SCH ×2 (08:22→19:25)
[2021-10-08] MEDS: IPRATROPIUM-ALBUTEROL 3 ML NEB INHALATION SCH ×4 (08:22→19:25)
--- NOTE | 2021-10-08 09:34 | P.HPIM ---
History of Present Illness H&P Date: 10/08/21 HISTORY OF PRESENT ILLNESS This is a 80-year-old male with past medical history of hypertension, paroxysmal atrial fibrillation on Xarelto, benign prostatic hypertrophy, hiatal hernia, hereditary factor VIII deficiency, hyperlipidemia. Patient presented to the office yesterday due to shortness of breath cough, exertional dyspnea and was found to have a pulse ox of 84% and patient was sent to [facility] emergency center for further evaluation and treatment. Patient was placed on BiPAP overnight and has been transitioned to nasal cannula. CBC was unremarkable. Electrolytes and renal function normal. Blood sugar 176. Liver function tests were normal. ProCalcitonin 0.07. Magnesium 2.0. Lactic acid 1.5. Coronal virus PCR not detected. Chest x-ray reveals patchy bilateral infiltrates correlate for pneumonia. Prominence of descending aorta. Aneurysm not excluded. Patient has a drop in his pulse ox on a 60% and was transferred to the ICU and consult/seen by Dr. Palafox. REVIEW OF SYSTEMS Constitutional: No fever, no chills, no night sweats. No weight change. Reports weakness, Reports fatigue Reports lethargy. No daytime sleepiness. EENT: No headache. No blurred vision or double vision, no loss of vision. No loss of Hearing, no ringing in the ears, no dizziness. No nasal drainage or congestion. No epistaxis. No sore throat. Lungs: Reports shortness of breath, Reports cough, Reports sputum production. Reports wheezing. Cardiovascular: No chest pain, no lower extremity edema. No palpitations. No paroxysmal nocturnal dyspnea. No orthopnea. No lightheadedness or dizziness. No syncopal episodes. Abdominal: No abdominal pain. No nausea, vomiting. No diarrhea. No constipation. No bloody or tarry stools. No loss of appetite. Genitourinary: No dysuria, increased frequency, urgency. No urinary retention. Musculoskeletal: No myalgias. Reports muscle weakness, no gait dysfunction, no frequent falls. No back pain. No neck pain. Integumentary: No wounds, no lesions. No rash or pruritus. No unusual bruising. No change in hair or nails. Neurologic: No aphasia. No facial droop. No change in mentation. No head injury. No headache. No paralysis. No paresthesia. Psychiatric: No depression. No anxiety. No mood swings. Endocrine: No abnormal blood sugars. No weight change. No excessive sweating or thirst. No cold intolerance. MEDICAL HISTORY Hypertension Paroxysmal atrial fibrillation Benign prostatic hypertrophy Hiatal hernia Hereditary factor VIII deficiency Hyperlipidemia SURGICAL HISTORY Hernia repair Bilateral knee replacement SOCIAL HISTORY Patient is a lifelong nonsmoker, no alcohol use or abuse, no marijuana or illicit drug use. Patient lives at home with his . FAMILY HISTORY Father at age 88 from CVA and had CABG 25 years earlier. Mother at age 88 at ECF with history of hyperlipidemia. Patient has 2 brothers and one at age 21 in airplane crash and the other one has had multiple surgeries. Patient has one son with no major medical problems and one daughter with no major medical problem. PHYSICAL EXAMINATION Gen: This is an obese 80-year-old male, resting in the ICU, currently on nasal cannula, appears to be fairly comfortable at rest. HEENT: Head is atraumatic, normocephalic. Pupils equal, round. Sclerae is anicteric. NECK: Supple. No JVD. No lymphadenopathy. No thyromegaly. LUNGS: Diminished breath sounds bilaterally. No intercostal retractions. HEART: First heart sound is depressed, second heart sound is normal, 2/6 systolic ejection murmur at the left sternal border. nuclear monitoring technician is a sinus rhythm. ABDOMEN: Soft. Bowel sounds are present. No masses. No tenderness. EXTREMITIES: No pedal edema. No calf tenderness. NEUROLOGICAL: Patient is awake, alert and oriented x3. Cranial nerves 2 through 12 are grossly intact. ASSESSMENT AND PLAN 1. Acute hypoxic respiratory failure was positive for RSV. Continue oxygen therapy. Patient required BiPAP during the night subsequently transitioned to nasal cannula. 2. Acute exacerbation of COPD. Patient started on Solu-Medrol 60 mg IV every 6 hours, DuoNeb treatments 4 times daily scheduled and as needed, Pulmicort 1 mg twice daily, Tessalon Perles 200 mg 3 times daily, Robitussin with codeine every 6 hours as needed, Singulair 10 mg at bedtime, ceftriaxone 2 g IV piggyback every day and azithromycin 500 mg IV piggyback daily for possible pneumonia although pro-calcitonin was normal. 3. Paroxysmal atrial fibrillation. Continue Xarelto 20 mg at bedtime, Lopressor 25 mg twice daily. 4. Benign prostatic hypertrophy. Continue Flomax 0.4 mg daily, monitor for urinary retention. 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 6. Hyperlipidemia. 7. GI prophylaxis. Protonix 40 mg IV daily. 8. DVT prophylaxis. Xarelto. 9. COVID-19 testing negative. Patient has been hospitalized during a pandemic. Patient will be admitted to the hospital for a minimum of 2 night stay. DISCHARGE PLAN TBD. Impression and plan of care have been directed as dictated by the signing physician. Melissa Hairston nurse practitioner acting as scribe for signing physician. Past Medical History Past Medical History: Atrial Fibrillation, Asthma, Deep Vein Thrombosis (DVT), Hearing Disorder / Deafness, Osteoarthritis (OA), Pneumonia Additional Past Medical History / Comment(s): Hx pneumonia yrs ago. Hiatal hernia. Hx kidney stones. Use of bilateral hearing aids. History of Any Multi-Drug Resistant Organisms: None Reported Past Surgical History: Joint Replacement Additional Past Surgical History / Comment(s): Bilateral knee replacements., LIS and cardioversion 05/31/18 Past Anesthesia/Blood Transfusion Reactions: No Reported Reaction Past Psychological History: No Psychological Hx Reported Smoking Status: Never smoker Past Alcohol Use History: Rare Additional Past Alcohol Use History / Comment(s): Quit smoking 50 yrs ago. Past Drug Use History: None Reported - Past Family History Mother Family Medical History: No Reported History Medications and Allergies Home Medications Medication Instructions Recorded Confirmed Type Cyanocobalamin (Vitamin B-12) 2,000 mcg PO DAILY 05/29/18 10/07/21 History [Vitamin B-12] Losartan Potassium [Cozaar] 25 mg PO DIRECTED 05/29/18 10/07/21 History Metoprolol Tartrate 25 mg PO BID 05/29/18 10/07/21 History Multivitamins, Thera [Multivitamin 1 tab PO DAILY 05/29/18 10/07/21 History (formulary)] Rivaroxaban [Xarelto] 20 mg PO HS 05/29/18 10/07/21 History Tamsulosin HCl [Flomax] 0.4 mg PO HS 05/29/18 10/07/21 History Albuterol Sulfate [Albuterol 2 puff PO RT-Q6H PRN 10/07/21 10/07/21 History Sulfate Hfa] Amiodarone [Cordarone] 100 mg PO DIRECTED 10/07/21 10/07/21 History Azithromycin [Zithromax Z-pack (6 See Taper PO DIRECTED 10/07/21 10/07/21 History tabs)] Folic Acid 0.4 mg PO DAILY 10/07/21 10/07/21 History methylPREDNISolone [Medrol Dose See Taper PO DIRECTED 10/07/21 10/07/21 History Pack] Allergies Allergy/AdvReac Type Severity Reaction Status Date / Time shellfish derived [Shrimp] Allergy Rash/Hives Verified 10/07/21 15:35 Physical Exam Vitals: Vital Signs Temp Pulse Pulse Resp BP BP Pulse Ox 10/08/21 07:00 74 15 128/79 97 10/08/21 06:00 76 18 112/76 94 L 10/08/21 05:00 77 16 121/84 94 L 10/08/21 04:00 96.6 F L 79 20 126/75 97 10/08/21 03:00 81 17 123/82 93 L 10/08/21 02:00 81 15 132/77 92 L 10/08/21 01:00 88 18 130/78 94 L 10/08/21 00:30 92 17 130/78 93 L 10/08/21 00:00 97.8 F 93 20 126/91 90 L 10/07/21 23:00 99 20 126/91 94 L 10/07/21 22:30 109 H 22 151/95 97 10/07/21 22:06 105 H 151/95 97 10/07/21 22:00 98.9 F 112 H 23 152/98 98 10/07/21 21:45 110 H 24 132/80 91 L 10/07/21 20:41 100 20 127/78 92 L 10/07/21 20:21 100 10/07/21 19:51 88 17 10/07/21 19:48 97.9 F 10/07/21 19:45 86 24 148/87 87 L 10/07/21 14:59 104 H 10/07/21 14:44 94 10/07/21 14:02 24 10/07/21 13:09 100.7 F H 101 H 21 119/82 87 L Intake and Output 10/07/21 10/08/21 10/08/21 22:59 06:59 14:59 Intake Total 50 400 50 Output Total 0 275 0 Balance 50 125 50 Intake: IV 50 400 50 .9 50 400 50 Output: Urine 0 275 0 Other: Voiding Method Urinal Weight 108.4 kg Results CBC & Chem 7: 10/08/21 03:43 10/08/21 03:43 Labs: Abnormal Lab Results - Last 24 Hours (Table) 10/07/21 10/07/21 10/07/21 Range/Units 14:30 14:30 20:49 Neutrophils # (1.3-7.7) k/uL Lymphocytes # 0.6 L (1.0-4.8) k/uL ABG pO2 72 L (83-108) mmHg ABG Total CO2 26 H (19-24) mmol/L Sodium (137-145) mmol/L BUN (9-20) mg/dL Glucose 118 H (74-99) mg/dL POC Glucose (mg/dL) (75-99) mg/dL 10/07/21 10/08/21 10/08/21 Range/Units 21:58 03:43 03:43 Neutrophils # 9.3 H (1.3-7.7) k/uL Lymphocytes # 0.5 L (1.0-4.8) k/uL ABG pO2 (83-108) mmHg ABG Total CO2 (19-24) mmol/L Sodium 135 L (137-145) mmol/L BUN 23 H (9-20) mg/dL Glucose 179 H (74-99) mg/dL POC Glucose (mg/dL) 176 H (75-99) mg/dL Thrombosis Risk Factor Assmnt - Choose All That Apply Any of the Below Risk Factors Present?: Yes Each Factor Represents 1 point: Obesity (BMI >25) Other Risk Factors: Yes Each Risk Factor Represents 2 Points: Age 61-74 years Each Risk Factor Represents 3 Points: Age 75 years or older, History of DVT/PE Other congenital or acquired thrombophilia - If yes, enter type in comment: No Thrombosis Risk Factor Assessment Total Risk Factor Score: 9 Thrombosis Risk Factor Assessment Level: High Risk
[2021-10-08] MEDS: guaiFENesin-Coden 100-10MG/5ML 10 ML CUP PO PRN (11:26)
[2021-10-08] MEDS: CYANOCOBALAMIN 500 MCG TAB PO SCH (11:26)
[2021-10-08] MEDS: PANTOPRAZOLE 40 MG/10 ML VIAL IV SCH (11:26)
[2021-10-08] MEDS: METOPROLOL TARTRATE 25 MG TAB PO SCH ×2 (11:26→20:08)
[2021-10-08] MEDS: methylPREDNISolone SOD SUCCI 125 MG/2 ML VIAL IV SCH ×2 (11:26→20:08)
[2021-10-08] MEDS: FOLIC ACID 1 MG TAB PO SCH (11:26)
[2021-10-08] MEDS: SODIUM CHLORIDE 0.9% 1,000 ML IV SCH (11:27)
[2021-10-08] MEDS: MULTIVITAMINS, THERA 1 EACH TAB PO SCH (11:27)
[2021-10-08] MEDS: AZITHROMYCIN 500 MG in SODIUM CHLORIDE 0.9% 250 ML IVPB SCH (11:37)
[2021-10-08] MEDS: BENZONATATE 100 MG CAP PO PRN (11:38)
[2021-10-08 11:47] LABS: Glucose,Whole Blood 162 mg/dL (75-99)
[2021-10-08] MEDS: INSULIN ASPART (NovoLOG) 100 UNIT/ML VIAL SQ SCH ×3 (11:48→20:13)
--- NOTE | 2021-10-08 11:56 | P.CNPUL ---
History of Present Illness Consult date: 10/08/21 Requesting physician: Buzz Zimmerman Reason for consult: dyspnea, other (Critical care management) Chief complaint: Shortness of breath, cough, congestion History of present illness: Visit pleasant 80-year-old gentleman who follows with Dr. Zimmerman is his primary care provider. He has a history of atrial fibrillation anticoagulated with Xarelto, DVT, hearing disorder, mild intermittent chronic bronchial asthma, nonsmoker. He had been seen by Dr. Palafox in the past for shortness of breath that he felt was secondary to a large hiatal hernia and the patient did undergo subsequent surgical repair. He was last seen in 2017. Presented to the emergency room yesterday from his PCPs office after being found to have O2 saturation in low 80s. He was positive for RSV. Negative for cho virus. He had initially been given antibiotics and steroids and only took them for 1 day without much improvement. While in the emergency room he was placed on BiPAP 16/7 and 100% FiO2. Blood gases revealed a PaO2 of 72, pCO2 of 40 and a pH of 7.39. He also was having issues with acute bronchospasm and he was admitted to the intensive care unit. He is seen today in consultation. He is currently sitting up in bed. Awake and alert. He does have a harsh nonproductive cough. He is off the BiPAP and requiring 15 L high flow nasal cannula. His x-ray revealed patchy bilateral infiltrates. White count 9.9. Hemoglobin 15.4. Lymphocyte 0.5. Sodium 135. Potassium 3.9. Bicarb 22. Creatinine 1.13. Glucose 179. Pro-calcitonin 0.07. His continued on DuoNeb inhalations, Pulmicort inhalations, IV Solu-Medrol. Antibiotics in the form of ceftriaxone and azithromycin. Review of Systems REVIEW OF SYSTEMS: CONSTITUTIONAL: Denies any recent significant weight loss or weight gain. EYES: Denies change in vision. EARS, NOSE, MOUTH, THROAT: Denies headaches, denies sore throat. CARDIOVASCULAR: Denies chest pain, palpitations or syncopal episodes. RESPIRATORY: Positive for shortness of breath, cough, congestion no hemoptysis. GASTROINTESTINAL: Denies change in appetite, denies abdominal pain GENITOURINARY: Denies hematuria, denies infections. MUSKULOSKELETAL: Denies pain, denies swelling. INTEGUMENTARY: Denies rash, denies eczema. NEUROLOGICAL: Denies recent memory loss, no recent seizure activity. PSYCHIATRIC: Denies anxiety, denies depression. HEMATOLOGIC/LYMPHATIC: Denies anemia, denies enlarged lymph nodes. Past Medical History Past Medical History: Atrial Fibrillation, Asthma, Deep Vein Thrombosis (DVT), Hearing Disorder / Deafness, Osteoarthritis (OA), Pneumonia Additional Past Medical History / Comment(s): Hx pneumonia yrs ago. Hiatal hernia. Hx kidney stones. Use of bilateral hearing aids. History of Any Multi-Drug Resistant Organisms: None Reported Past Surgical History: Joint Replacement Additional Past Surgical History / Comment(s): Bilateral knee replacements., LIS and cardioversion 05/31/18 Past Anesthesia/Blood Transfusion Reactions: No Reported Reaction Past Psychological History: No Psychological Hx Reported Smoking Status: Never smoker Past Alcohol Use History: Rare Additional Past Alcohol Use History / Comment(s): Quit smoking 50 yrs ago. Past Drug Use History: None Reported - Past Family History Mother Family Medical History: No Reported History Medications and Allergies Home Medications Medication Instructions Recorded Confirmed Type Cyanocobalamin (Vitamin B-12) 2,000 mcg PO DAILY 05/29/18 10/07/21 History [Vitamin B-12] Losartan Potassium [Cozaar] 25 mg PO DIRECTED 05/29/18 10/07/21 History Metoprolol Tartrate 25 mg PO BID 05/29/18 10/07/21 History Multivitamins, Thera [Multivitamin 1 tab PO DAILY 05/29/18 10/07/21 History (formulary)] Rivaroxaban [Xarelto] 20 mg PO HS 05/29/18 10/07/21 History Tamsulosin HCl [Flomax] 0.4 mg PO HS 05/29/18 10/07/21 History Albuterol Sulfate [Albuterol 2 puff PO RT-Q6H PRN 10/07/21 10/07/21 History Sulfate Hfa] Amiodarone [Cordarone] 100 mg PO DIRECTED 10/07/21 10/07/21 History Azithromycin [Zithromax Z-pack (6 See Taper PO DIRECTED 10/07/21 10/07/21 History tabs)] Folic Acid 0.4 mg PO DAILY 10/07/21 10/07/21 History methylPREDNISolone [Medrol Dose See Taper PO DIRECTED 10/07/21 10/07/21 History Pack] Allergies Allergy/AdvReac Type Severity Reaction Status Date / Time shellfish derived [Shrimp] Allergy Rash/Hives Verified 10/07/21 15:35 Physical Exam Vitals: Vital Signs Temp Pulse Pulse Resp BP BP Pulse Ox 10/08/21 08:38 88 10/08/21 08:23 87 10/08/21 07:00 74 15 128/79 97 10/08/21 06:00 76 18 112/76 94 L 10/08/21 05:00 77 16 121/84 94 L 10/08/21 04:00 96.6 F L 79 20 126/75 97 10/08/21 03:00 81 17 123/82 93 L 10/08/21 02:00 81 15 132/77 92 L 10/08/21 01:00 88 18 130/78 94 L 10/08/21 00:30 92 17 130/78 93 L 10/08/21 00:00 97.8 F 93 20 126/91 90 L 10/07/21 23:00 99 20 126/91 94 L 10/07/21 22:30 109 H 22 151/95 97 10/07/21 22:06 105 H 151/95 97 10/07/21 22:00 98.9 F 112 H 23 152/98 98 10/07/21 21:45 110 H 24 132/80 91 L 10/07/21 20:41 100 20 127/78 92 L 10/07/21 20:21 100 10/07/21 19:51 88 17 10/07/21 19:48 97.9 F 10/07/21 19:45 86 24 148/87 87 L 10/07/21 14:59 104 H 10/07/21 14:44 94 10/07/21 14:02 24 10/07/21 13:09 100.7 F H 101 H 21 119/82 87 L Intake and Output 10/07/21 10/08/21 10/08/21 22:59 06:59 14:59 Intake Total 50 400 50 Output Total 0 275 0 Balance 50 125 50 Intake: IV 50 400 50 .9 50 400 50 Output: Urine 0 275 0 Other: Voiding Method Urinal Weight 108.4 kg GENERAL EXAM: Alert, obese, 80-year-old gentleman, on 15 L high flow nasal cannula, fairly comfortable in no apparent distress. HEAD: Normocephalic. EYES: Normal reaction of pupils, equal size. NOSE: Clear with pink turbinates. THROAT: No erythema or exudates. NECK: No masses, no JVD. CHEST: No chest wall deformity. LUNGS: Equal air entry with bilateral end expiratory wheeze, scattered rhonchi CVS: S1 and S2 normal with no audible murmur, regular rhythm. ABDOMEN: No hepatosplenomegaly, normal bowel sounds, no guarding or rigidity. SPINE: No scoliosis or deformity SKIN: No rashes CENTRAL NERVOUS SYSTEM: No focal deficits, tone is normal in all 4 extremities. EXTREMITIES: There is no peripheral edema. No clubbing, no cyanosis. Peripheral pulses are intact. Results - Laboratory Findings CBC and BMP: 10/08/21 03:43 10/08/21 03:43 ABG ABG pH 7.40 (7.35-7.45) 10/07/21 20:49 ABG pCO2 40 mmHg (35-45) 10/07/21 20:49 ABG pO2 72 mmHg (83-108) L 10/07/21 20:49 ABG O2 Saturation 95.0 % (94-97) 10/07/21 20:49 PT/INR, D-dimer PT 11.6 sec (9.0-12.0) 10/07/21 14:30 INR 1.1 (<1.2) 10/07/21 14:30 Abnormal lab findings: Abnormal Labs 10/07/21 10/07/21 10/07/21 14:30 14:30 20:49 Neutrophils # Lymphocytes # 0.6 L ABG pO2 72 L ABG Total CO2 26 H Sodium BUN Glucose 118 H POC Glucose (mg/dL) 10/07/21 10/08/21 10/08/21 21:58 03:43 03:43 Neutrophils # 9.3 H Lymphocytes # 0.5 L ABG pO2 ABG Total CO2 Sodium 135 L BUN 23 H Glucose 179 H POC Glucose (mg/dL) 176 H - Diagnostic Findings Chest x-ray: image reviewed Assessment and Plan Assessment: 1 Acute hypoxemic respiratory failure secondary to an acute exacerbation of chronic bronchial asthma secondary to RSV. Negative for COVID-19. Pro- calcitonin normal. 2 History of mild intermittent chronic bronchial asthma 3 Recap history of paroxysmal atrial fibrillation, anticoagulated with Xarelto, previous cardioversion 4 History of DVT 5 Hearing disorder 6 Nonsmoker Plan: The patient was seen and evaluated by Dr. Palafox X-ray, ABGs and labs reviewed Continue to titrate the FiO2 as tolerated May try AirVo high flow oxygen versus BiPAP Add Tessalon Perles Add Singulair Increase IV Solu-Medrol to 60 mg every 6 hours Continue DuoNeb inhalations, Pulmicort inhalations We will continue to follow and make further recommendations based on his clinical status I, the cosigning physician, performed a history & physical examination of the pa coy. Lungs sounds with bilateral end expiratory wheeze, scattered rhonchi. Maintaining good O2 saturations in the 90s on 15 L high flow nasal cannula. I discussed the assessment and plan of care with my nurse practitioner, Bere Borja. I attest to the above consultation as dictated by her. Time with Patient: Greater than 30
[2021-10-08 17:07] LABS: Glucose,Whole Blood 128 mg/dL (75-99)
[2021-10-08] MEDS: MONTELUKAST 10 MG TAB PO SCH (20:08)
[2021-10-08] MEDS: TAMSULOSIN 0.4 MG CAP.ER.24H PO SCH (20:08)
[2021-10-08] MEDS: RIVAROXABAN 20 MG TAB PO SCH (20:09)
[2021-10-08 20:14] LABS: Glucose,Whole Blood 156 mg/dL (75-99)
[2021-10-09] MEDS: methylPREDNISolone SOD SUCCI 125 MG/2 ML VIAL IV SCH ×4 (00:14→17:02)
[2021-10-09] MEDS: IPRATROPIUM-ALBUTEROL 3 ML NEB INHALATION SCH ×4 (07:50→20:04)
[2021-10-09] MEDS: BUDESONIDE 1 MG/2 ML NEBU INHALATION SCH ×2 (07:50→20:04)
[2021-10-09] MEDS: PANTOPRAZOLE 40 MG/10 ML VIAL IV SCH (09:13)
[2021-10-09] MEDS: CYANOCOBALAMIN 500 MCG TAB PO SCH (09:13)
[2021-10-09] MEDS: METOPROLOL TARTRATE 25 MG TAB PO SCH ×2 (09:13→19:45)
[2021-10-09] MEDS: FOLIC ACID 1 MG TAB PO SCH (09:13)
[2021-10-09] MEDS: MULTIVITAMINS, THERA 1 EACH TAB PO SCH (09:13)
[2021-10-09] MEDS: AZITHROMYCIN 500 MG in SODIUM CHLORIDE 0.9% 250 ML IVPB SCH (09:14)
--- NOTE | 2021-10-09 10:34 | P.PN ---
Subjective Progress Note Date: 10/09/21 Principal diagnosis: Acute hypoxic respiratory failure secondary to acute asthma exacerbation and RSV tracheobronchitis. Visit pleasant 80-year-old gentleman who follows with Dr. Zimmerman is his primary care provider. He has a history of atrial fibrillation anticoagulated with Xare lto, DVT, hearing disorder, mild intermittent chronic bronchial asthma, nonsmoker. He had been seen by Dr. Palafox in the past for shortness of breath that he felt was secondary to a large hiatal hernia and the patient did undergo subsequent surgical repair. He was last seen in 2017. Presented to the emergency room yesterday from his PCPs office after being found to have O2 saturation in low 80s. He was positive for RSV. Negative for cho virus. He had initially been given antibiotics and steroids and only took them for 1 day without much improvement. While in the emergency room he was placed on BiPAP 16/7 and 100% FiO2. Blood gases revealed a PaO2 of 72, pCO2 of 40 and a pH of 7.39. He also was having issues with acute bronchospasm and he was admitted to the intensive care unit. He is seen today in consultation. He is currently sitting up in bed. Awake and alert. He does have a harsh nonproductive cough. He is off the BiPAP and requiring 15 L high flow nasal cannula. His x-ray revealed patchy bilateral infiltrates. White count 9.9. Hemoglobin 15.4. Lymphocyte 0.5. Sodium 135. Potassium 3.9. Bicarb 22. Creatinine 1.13. Glucose 179. Pro-calcitonin 0.07. His continued on DuoNeb inhalations, Pulmicort inhalations, IV Solu-Medrol. Antibiotics in the form of ceftriaxone and azithromycin. Reevaluated today on 10/09/21, patient remains in the ICU, continues to have intermittent episodes of cough, wheezing, shortness of breath. Patient is on high flow oxygen, 70% FiO2 and 60 L flow using airvo, and his O2 saturation is 94-96%. Follow-up chest x-ray this morning showed minimal atelectasis at the bases especially at the left base, doubt infiltrate. Labs were reviewed. These were all done yesterday. Objective - Vital Signs Vital signs: Vital Signs Temp 97.9 F 10/09/21 04:00 Pulse 66 10/09/21 07:59 Resp 14 10/09/21 06:00 BP 168/73 10/09/21 06:00 Pulse Ox 96 10/09/21 07:54 Intake & Output 10/08/21 10/09/21 10/09/21 18:59 06:59 18:59 Intake Total 530 460 Output Total 400 800 Balance 130 -340 Weight 108.4 kg Intake: IV 530 260 .9 230 260 Azithromycin 500 mg In 250 Sodium Chloride 0.9% 250 ml @ 250 mls/hr IVPB DAILY [facility] Rx#:[id number] cefTRIAXone 2 gm In 50 Sodium Chloride 0.9% 50 ml @ 100 mls/hr IVPB Q24HR@0800 [facility] Rx#: [id number] Oral 200 Output: Urine 400 800 Other: Voiding Method External Catheter External Catheter # Voids 1 - Exam GENERAL EXAM: Revealed 80-year-old white male in no distress, on high flow oxygen. HEAD: Normocephalic. Atraumatic. EENT: PERRLA, EOMI, anicteric, no neck masses, no JVD, no stridor. NECK: No masses, no JVD. CHEST: No chest wall deformity. LUNGS: Symmetrical chest expansion, rhonchi and wheezes noted bilaterally more so on forced expiratory maneuver. CVS: S1 and S2 normal with no audible murmur, regular rhythm. ABDOMEN: No hepatosplenomegaly, normal bowel sounds, no guarding or rigidity. SKIN: No rashes CENTRAL NERVOUS SYSTEM: Alert and oriented 3, no gross Focal deficits. EXTREMITIES: No clubbing edema or cyanosis. - Labs CBC & Chem 7: 10/08/21 03:43 10/08/21 03:43 Labs: Abnormal Lab Results - Last 24 Hours (Table) 10/08/21 10/08/21 10/08/21 Range/Units 11:45 17:06 20:12 POC Glucose (mg/dL) 162 H 128 H 156 H (75-99) mg/dL Microbiology - Last 24 Hours (Table) 10/07/21 16:15 Blood Culture - Preliminary Blood No Growth after 24 hours Assessment and Plan Assessment: Impression: Acute hypoxic referral failure secondary to acute asthma exacerbation triggered by RSV tracheobronchitis. History of mild intermittent asthma Paroxysmal atrial fibrillation History of DVT Nonsmoker Recommendation: Continue bronchodilators. Continue oxygen Continue empiric antibiotics. Continue GI prophylaxis. Continue Solu-Medrol. Continue to monitor in the ICU not ready for any plans to transfer anytime soon. Continue Xarelto. Prognosis remains guarded. We will continue to follow. Time with Patient: Less than 30
[2021-10-09] MEDS: INSULIN ASPART (NovoLOG) 100 UNIT/ML VIAL SQ SCH ×4 (11:05→19:50)
--- NOTE | 2021-10-09 11:10 | XR ---
EXAMINATION TYPE: XR chest 1V portable DATE OF EXAM: 10/09/2021 Comparison: 10/07/2021 Clinical History: 80-year-old male RSV, RLL infiltrate Findings: Heart is enlarged. Increased peripheral interstitial density on the right. Some improved aeration of the right base but with slight increased patchy retrocardiac density. Tortuous/ectatic thoracic aorta . Impression: 1. Cardiomegaly. 2. Increased patchy left basilar atelectasis/infiltrate. 3. Mild interstitial infiltrate periphery of the right lung.
[2021-10-09 12:39] LABS: Glucose,Whole Blood 147 mg/dL (75-99)
[2021-10-09] MEDS: SODIUM CHLORIDE 0.9% 1,000 ML IV SCH (14:04)
[2021-10-09 16:32] LABS: Glucose,Whole Blood 125 mg/dL (75-99)
[2021-10-09] MEDS: TAMSULOSIN 0.4 MG CAP.ER.24H PO SCH (19:45)
[2021-10-09] MEDS: MONTELUKAST 10 MG TAB PO SCH (19:45)
[2021-10-09] MEDS: RIVAROXABAN 20 MG TAB PO SCH (19:46)
[2021-10-09 19:50] LABS: Glucose,Whole Blood 172 mg/dL (75-99)
[2021-10-10] MEDS: methylPREDNISolone SOD SUCCI 125 MG/2 ML VIAL IV SCH ×4 (06:53→17:05)
[2021-10-10] MEDS: BUDESONIDE 1 MG/2 ML NEBU INHALATION SCH ×2 (07:34→21:51)
[2021-10-10] MEDS: IPRATROPIUM-ALBUTEROL 3 ML NEB INHALATION SCH ×4 (07:34→21:51)
--- NOTE | 2021-10-10 08:21 | P.PN ---
Subjective Progress Note Date: 10/09/21 HISTORY OF PRESENT ILLNESS This is a 80-year-old male with past medical history of hypertension, paroxysmal atrial fibrillation on Xarelto, benign prostatic hypertrophy, hiatal hernia, hereditary factor VIII deficiency, hyperlipidemia. Patient presented to the office yesterday due to shortness of breath cough, exertional dyspnea and was found to have a pulse ox of 84% and patient was sent to [facility] emergency center for further evaluation and treatment. Patient was placed on BiPAP overnight and has been transitioned to nasal cannula. CBC was unremarkable. Electrolytes and renal function normal. Blood sugar 176. Liver function tests were normal. ProCalcitonin 0.07. Magnesium 2.0. Lactic acid 1.5. Coronal virus PCR not detected. Chest x-ray reveals patchy bilateral infiltrates correlate for pneumonia. Prominence of descending aorta. Aneurysm not excluded. Patient has a drop in his pulse ox on a 60% and was transferred to the ICU and consult/seen by Dr. Palafox. 10/09: Patient sitting up in bed he is requiring more oxygen today he's been satting about 93-94%, he continued to have occasional cough, no phlegm production, he has no headache, he has no chest pain, he has pain, nausea vomiting or diarrhea, he seems to be tolerating treatment very well, patient continues to be somewhat hypertensive, we will start the patient on losartan 50 mg once every other blood pressures not improving in the next 24 hours. REVIEW OF SYSTEMS Constitutional: No fever, no chills, no night sweats. No weight change. Repor ts weakness, Reports fatigue Reports lethargy. No daytime sleepiness. EENT: No headache. No blurred vision or double vision, no loss of vision. No loss of Hearing, no ringing in the ears, no dizziness. No nasal drainage or congestion. No epistaxis. No sore throat. Lungs: Reports shortness of breath, Reports cough, Reports sputum production. Reports wheezing. Cardiovascular: No chest pain, no lower extremity edema. No palpitations. No paroxysmal nocturnal dyspnea. No orthopnea. No lightheadedness or dizziness. No syncopal episodes. Abdominal: No abdominal pain. No nausea, vomiting. No diarrhea. No constipation. No bloody or tarry stools. No loss of appetite. Genitourinary: No dysuria, increased frequency, urgency. No urinary retention. Musculoskeletal: No myalgias. Reports muscle weakness, no gait dysfunction, no frequent falls. No back pain. No neck pain. Integumentary: No wounds, no lesions. No rash or pruritus. No unusual bruising. No change in hair or nails. Neurologic: No aphasia. No facial droop. No change in mentation. No head injury. No headache. No paralysis. No paresthesia. Psychiatric: No depression. No anxiety. No mood swings. Endocrine: No abnormal blood sugars. No weight change. No excessive sweating or thirst. No cold intolerance. PHYSICAL EXAMINATION Gen: This is an obese 80-year-old male, resting in the ICU, currently on nasal cannula, appears to be fairly comfortable at rest. HEENT: Head is atraumatic, normocephalic. Pupils equal, round. Sclerae is anicteric. NECK: Supple. No JVD. No lymphadenopathy. No thyromegaly. LUNGS: Diminished breath sounds bilaterally. No intercostal retractions. HEART: First heart sound is depressed, second heart sound is normal, 2/6 systolic ejection murmur at the left sternal border. traffic monitor specialist is a sinus rhythm. ABDOMEN: Soft. Bowel sounds are present. No masses. No tenderness. EXTREMITIES: No pedal edema. No calf tenderness. NEUROLOGICAL: Patient is awake, alert and oriented x3. Cranial nerves 2 through 12 are grossly intact. ASSESSMENT AND PLAN 1. Acute hypoxic respiratory failure was positive for RSV. Continue oxygen therapy. Patient required BiPAP during the night subsequently transitioned to nasal cannula. 2. Acute exacerbation of COPD. Patient on Solu-Medrol 60 mg IV every 6 hours, DuoNeb treatments 4 times daily scheduled and as needed, Pulmicort 1 mg twice daily, Tessalon Perles 200 mg 3 times daily, Robitussin with codeine every 6 hours as needed, Singulair 10 mg at bedtime, ceftriaxone 2 g IV piggyback every day and azithromycin 500 mg IV piggyback daily for possible pneumonia although pro-calcitonin was normal. 3. Paroxysmal atrial fibrillation. Continue Xarelto 20 mg at bedtime, Lopressor 25 mg twice daily. 4. Benign prostatic hypertrophy. Continue Flomax 0.4 mg daily, monitor for urinary retention. 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 6. Hyperlipidemia. Continue low-cholesterol diet and monitor lipid panel. 7. Hypertension and hypertensive cardiovascular disease. Continue patient on metoprolol 25 mg orally twice every day, continue to monitor blood pressure very closely, add losartan 50 mg once every day tomorrow morning the blood pressures not better. 8. GI prophylaxis. Protonix 40 mg IV daily. 9. DVT prophylaxis. Xarelto. 10. COVID-19 testing negative. Patient has been hospitalized during a pandemic. Objective - Vital Signs Vital signs: Vital Signs Temp 97.9 F 10/09/21 04:00 Pulse 66 10/09/21 07:59 Resp 14 10/09/21 06:00 BP 168/73 10/09/21 06:00 Pulse Ox 96 10/09/21 07:54 Intake & Output 10/08/21 10/09/21 10/09/21 18:59 06:59 18:59 Intake Total 530 460 Output Total 400 800 Balance 130 -340 Weight 108.4 kg Intake: IV 530 260 .9 230 260 Azithromycin 500 mg In 250 Sodium Chloride 0.9% 250 ml @ 250 mls/hr IVPB DAILY [facility] Rx#:[id number] cefTRIAXone 2 gm In 50 Sodium Chloride 0.9% 50 ml @ 100 mls/hr IVPB Q24HR@0800 [facility] Rx#: [id number] Oral 200 Output: Urine 400 800 Other: Voiding Method External Catheter External Catheter # Voids 1 - Labs CBC & Chem 7: 10/08/21 03:43 10/08/21 03:43 Labs: Abnormal Lab Results - Last 24 Hours (Table) 10/08/21 10/08/21 10/08/21 Range/Units 11:45 17:06 20:12 POC Glucose (mg/dL) 162 H 128 H 156 H (75-99) mg/dL Microbiology - Last 24 Hours (Table) 10/07/21 16:15 Blood Culture - Preliminary Blood No Growth after 24 hours
[2021-10-10] MEDS: PANTOPRAZOLE 40 MG/10 ML VIAL IV SCH (08:27)
[2021-10-10] MEDS: CYANOCOBALAMIN 500 MCG TAB PO SCH (08:27)
[2021-10-10] MEDS: AZITHROMYCIN 500 MG in SODIUM CHLORIDE 0.9% 250 ML IVPB SCH (08:27)
[2021-10-10] MEDS: MULTIVITAMINS, THERA 1 EACH TAB PO SCH (08:28)
[2021-10-10] MEDS: METOPROLOL TARTRATE 25 MG TAB PO SCH ×2 (08:28→21:12)
[2021-10-10] MEDS: FOLIC ACID 1 MG TAB PO SCH (08:28)
[2021-10-10] MEDS: LOSARTAN 50 MG TAB PO SCH (08:34)
[2021-10-10] MEDS: INSULIN ASPART (NovoLOG) 100 UNIT/ML VIAL SQ SCH ×4 (10:10→21:31)
--- NOTE | 2021-10-10 10:14 | P.PN ---
Subjective Progress Note Date: 10/10/21 HISTORY OF PRESENT ILLNESS This is a 80-year-old male with past medical history of hypertension, paroxysmal atrial fibrillation on Xarelto, benign prostatic hypertrophy, hiatal hernia, hereditary factor VIII deficiency, hyperlipidemia. Patient presented to the office yesterday due to shortness of breath cough, exertional dyspnea and was found to have a pulse ox of 84% and patient was sent to [facility] emergency [place] for further evaluation and treatment. Patient was placed on BiPAP overnight and has been transitioned to nasal cannula. CBC was unremarkable. Electrolytes and renal function normal. Blood sugar 176. Liver function tests were normal. ProCalcitonin 0.07. Magnesium 2.0. Lactic acid 1.5. Coronal virus PCR not detected. Chest x-ray reveals patchy bilateral infiltrates correlate for pneumonia. Prominence of descending aorta. Aneurysm not excluded. Patient has a drop in his pulse ox on a 60% and was transferred to the ICU and consult/seen by Dr. Palafox. 10/09: Patient sitting up in bed he is requiring more oxygen today he's been satting about 93-94%, he continued to have occasional cough, no phlegm production, he has no headache, he has no chest pain, he has pain, nausea vomiting or diarrhea, he seems to be tolerating treatment very well, patient continues to be somewhat hypertensive, we will start the patient on losartan 50 mg once every other blood pressures not improving in the next 24 hours. 10/10: Patient continues to be hypotensive I will add losartan 50 mg once every day, continue metoprolol 25 mg twice every day, continue patient's in the ICU continue patient on current treatment plan, he continues to require quite a bit of oxygen his saturation is about 94%, we'll continue current ICU care monitor the patient very closely. REVIEW OF SYSTEMS Constitutional: No fever, no chills, no night sweats. No weight change. Reports weakness, Reports fatigue Reports lethargy. No daytime sleepiness. EENT: No headache. No blurred vision or double vision, no loss of vision. No loss of Hearing, no ringing in the ears, no dizziness. No nasal drainage or congestion. No epistaxis. No sore throat. Lungs: Reports shortness of breath, Reports cough, Reports sputum production. Reports wheezing. Cardiovascular: No chest pain, no lower extremity edema. No palpitations. No paroxysmal nocturnal dyspnea. No orthopnea. No lightheadedness or dizziness. No syncopal episodes. Abdominal: No abdominal pain. No nausea, vomiting. No diarrhea. No constipation. No bloody or tarry stools. No loss of appetite. Genitourinary: No dysuria, increased frequency, urgency. No urinary retention. Musculoskeletal: No myalgias. Reports muscle weakness, no gait dysfunction, no frequent falls. No back pain. No neck pain. Integumentary: No wounds, no lesions. No rash or pruritus. No unusual bruising. No change in hair or nails. Neurologic: No aphasia. No facial droop. No change in mentation. No head injury. No headache. No paralysis. No paresthesia. Psychiatric: No depression. No anxiety. No mood swings. Endocrine: No abnormal blood sugars. No weight change. No excessive sweating or thirst. No cold intolerance. PHYSICAL EXAMINATION Gen: This is an obese 80-year-old male, resting in the ICU, currently on nasal cannula, appears to be fairly comfortable at rest. HEENT: Head is atraumatic, normocephalic. Pupils equal, round. Sclerae is anicteric. NECK: Supple. No JVD. No lymphadenopathy. No thyromegaly. LUNGS: Diminished breath sounds bilaterally. No intercostal retractions. HEART: First heart sound is depressed, second heart sound is normal, 2/6 systolic ejection murmur at the left sternal border. billing specialist is a sinus rhythm. ABDOMEN: Soft. Bowel sounds are present. No masses. No tenderness. EXTREMITIES: No pedal edema. No calf tenderness. NEUROLOGICAL: Patient is awake, alert and oriented x3. Cranial nerves 2 through 12 are grossly intact. ASSESSMENT AND PLAN 1. Acute hypoxic respiratory failure was positive for RSV. Continue oxygen therapy. Patient required BiPAP during the night subsequently transitioned to nasal cannula. 2. Acute exacerbation of COPD. Patient on Solu-Medrol 60 mg IV every 6 hours, DuoNeb treatments 4 times daily scheduled and as needed, Pulmicort 1 mg twice daily, Tessalon Perles 200 mg 3 times daily, Robitussin with codeine every 6 hours as needed, Singulair 10 mg at bedtime, ceftriaxone 2 g IV piggyback every day and azithromycin 500 mg IV piggyback daily for possible pneumonia although pro-calcitonin was normal. 3. Paroxysmal atrial fibrillation. Continue Xarelto 20 mg at bedtime, Lopressor 25 mg twice daily. 4. Benign prostatic hypertrophy. Continue Flomax 0.4 mg daily, monitor for urinary retention. 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 6. Hyperlipidemia. Continue low-cholesterol diet and monitor lipid panel. 7. Hypertension and hypertensive cardiovascular disease. Continue patient on metoprolol 25 mg orally twice every day, we will add losartan 50 mg every day monitor blood pressure very closely. 8. GI prophylaxis. Protonix 40 mg IV daily. 9. DVT prophylaxis. Xarelto. 10. COVID-19 testing negative. Patient has been hospitalized during a pandemic. Objective - Vital Signs Vital signs: Vital Signs Temp 97.7 F 10/10/21 04:00 Pulse 76 10/10/21 07:46 Resp 13 10/10/21 07:00 BP 150/81 10/10/21 07:00 Pulse Ox 93 L 10/10/21 07:37 Intake & Output 10/09/21 10/10/21 10/10/21 18:59 06:59 18:59 Intake Total 520 260 Output Total 500 550 Balance 20 -290 Weight 109 kg Intake: IV 520 260 .9 220 260 Azithromycin 500 mg In 250 Sodium Chloride 0.9% 250 ml @ 250 mls/hr IVPB DAILY ON LICENSE OF [facility] Rx#:[id number] cefTRIAXone 2 gm In 50 Sodium Chloride 0.9% 50 ml @ 100 mls/hr IVPB Q24HR@0800 ON LICENSE OF [facility] Rx#: [id number] Output: Urine 500 550 Other: Voiding Method External Catheter - Labs CBC & Chem 7: 10/08/21 03:43 10/08/21 03:43 Labs: Abnormal Lab Results - Last 24 Hours (Table) 10/09/21 10/09/21 10/09/21 Range/Units 12:37 16:30 19:49 POC Glucose (mg/dL) 147 H 125 H 172 H (75-99) mg/dL Microbiology - Last 24 Hours (Table) 10/07/21 16:15 Blood Culture - Preliminary Blood No Growth after 48 hours
[2021-10-10 10:46] LABS: Glucose,Whole Blood 136 mg/dL (75-99)
[2021-10-10] MEDS: SODIUM CHLORIDE 0.9% 1,000 ML IV SCH (12:38)
--- NOTE | 2021-10-10 14:33 | P.PN ---
Subjective Progress Note Date: 10/10/21 Principal diagnosis: Acute hypoxic respiratory failure secondary to acute asthma exacerbation and RSV tracheobronchitis. Visit pleasant 80-year-old gentleman who follows with Dr. Zimmerman is his primary care provider. He has a history of atrial fibrillation anticoagulated with Xare lto, DVT, hearing disorder, mild intermittent chronic bronchial asthma, nonsmoker. He had been seen by Dr. Palafox in the past for shortness of breath that he felt was secondary to a large hiatal hernia and the patient did undergo subsequent surgical repair. He was last seen in 2017. Presented to the emergency room yesterday from his PCPs office after being found to have O2 saturation in low 80s. He was positive for RSV. Negative for cho virus. He had initially been given antibiotics and steroids and only took them for 1 day without much improvement. While in the emergency room he was placed on BiPAP 16/7 and 100% FiO2. Blood gases revealed a PaO2 of 72, pCO2 of 40 and a pH of 7.39. He also was having issues with acute bronchospasm and he was admitted to the intensive care unit. He is seen today in consultation. He is currently sitting up in bed. Awake and alert. He does have a harsh nonproductive cough. He is off the BiPAP and requiring 15 L high flow nasal cannula. His x-ray revealed patchy bilateral infiltrates. White count 9.9. Hemoglobin 15.4. Lymphocyte 0.5. Sodium 135. Potassium 3.9. Bicarb 22. Creatinine 1.13. Glucose 179. Pro-calcitonin 0.07. His continued on DuoNeb inhalations, Pulmicort inhalations, IV Solu-Medrol. Antibiotics in the form of ceftriaxone and azithromycin. Reevaluated today on 10/09/21, patient remains in the ICU, continues to have intermittent episodes of cough, wheezing, shortness of breath. Patient is on high flow oxygen, 70% FiO2 and 60 L flow using airvo, and his O2 saturation is 94-96%. Follow-up chest x-ray this morning showed minimal atelectasis at the bases especially at the left base, doubt infiltrate. Labs were reviewed. These were all done yesterday. Patient was reevaluated today on 10/10/2021, remains in the ICU, feeling much better, breathing a lot easier, nonetheless continues to have intermittent episodes of cough. His O2 saturation is 94%, however the patient remains on relatively high flow oxygen, he is on airvo at 55% and 55 L flow. Clinically the patient is feeling better, and breathing a lot easier. Her cheko on multiple bronchodilators and and steroids. No labs were done today. Objective - Vital Signs Vital signs: Vital Signs Temp 98.2 F 10/10/21 08:00 Pulse 58 L 10/10/21 12:00 Resp 5 L 10/10/21 12:00 BP 145/73 10/10/21 12:00 Pulse Ox 94 L 10/10/21 12:00 Intake & Output 10/09/21 10/10/21 10/10/21 18:59 06:59 18:59 Intake Total 520 260 250 Output Total 500 550 Balance 20 -290 250 Weight 109 kg Intake: IV 520 260 250 .9 220 260 100 Azithromycin 500 mg In 250 100 Sodium Chloride 0.9% 250 ml @ 250 mls/hr IVPB DAILY [facility] Rx#:[id number] cefTRIAXone 2 gm In 50 50 Sodium Chloride 0.9% 50 ml @ 100 mls/hr IVPB Q24HR@0800 [facility] Rx#: [id number] Output: Urine 500 550 Other: Voiding Method External Catheter - Exam GENERAL EXAM: Revealed 80-year-old white male in no distress, on high flow oxygen.airvo, 55/55. HEAD: Normocephalic. Atraumatic. EENT: PERRLA, EOMI, anicteric, no neck masses, no JVD, no stridor. NECK: No masses, no JVD. CHEST: No chest wall deformity. LUNGS: Symmetrical chest expansion, minimal wheezing CVS: S1 and S2 normal with no audible murmur, regular rhythm. ABDOMEN: No hepatosplenomegaly, normal bowel sounds, no guarding or rigidity. SKIN: No rashes CENTRAL NERVOUS SYSTEM: Alert and oriented 3, no gross Focal deficits. EXTREMITIES: No clubbing edema or cyanosis. - Labs CBC & Chem 7: 10/08/21 03:43 10/08/21 03:43 Labs: Abnormal Lab Results - Last 24 Hours (Table) 10/09/21 10/09/21 10/10/21 Range/Units 16:30 19:49 10:44 POC Glucose (mg/dL) 125 H 172 H 136 H (75-99) mg/dL Microbiology - Last 24 Hours (Table) 10/07/21 16:15 Blood Culture - Preliminary Blood No Growth after 48 hours Assessment and Plan Assessment: Impression: Acute hypoxic referral failure secondary to acute asthma exacerbation triggered by RSV tracheobronchitis. History of mild intermittent asthma Paroxysmal atrial fibrillation History of DVT Nonsmoker Recommendation: Continue bronchodilators. Continue oxygen Continue empiric antibiotics. Continue GI prophylaxis. Continue Solu-Medrol. We'll continue to monitor the ICU for next 24 hours. And likely transfer to the regular medical floor tomorrow Continue Xarelto. We will continue to follow. Time with Patient: Less than 30
[2021-10-10 17:09] LABS: Glucose,Whole Blood 119 mg/dL (75-99)
[2021-10-10] MEDS: MONTELUKAST 10 MG TAB PO SCH (21:12)
[2021-10-10] MEDS: TAMSULOSIN 0.4 MG CAP.ER.24H PO SCH (21:12)
[2021-10-10] MEDS: RIVAROXABAN 20 MG TAB PO SCH (21:13)
[2021-10-10 21:20] LABS: Glucose,Whole Blood 123 mg/dL (75-99)
[2021-10-11] MEDS: methylPREDNISolone SOD SUCCI 125 MG/2 ML VIAL IV SCH ×4 (00:48→17:32)
[2021-10-11 04:03] LABS: Basophils % (A) 0 %; Eosinophils % (A) 0 %; HCT 45.6 % (39.0-53.0); HGB 14.7 gm/dL (13.0-17.5); Lymphocytes # (A) 0.7 k/uL (1.0-4.8); Lymphocytes % (A) 4 %; MCH 30.7 pg (25.0-35.0); MCHC 32.3 g/dL (31.0-37.0); MCV 95.1 fL (80.0-100.0); Mean Platelet Volume 7.8; Monocytes # (A) 0.4 k/uL (0-1.0); Monocytes % (A) 3 %; Neutrophils # (A) 14.3 k/uL (1.3-7.7); Neutrophils % (A) 93 %; Platelet Count 207 k/uL (150-450); WBC 15.4 k/uL (3.8-10.6)
[2021-10-11 04:07] LABS: Albumin 3.1 g/dL (3.5-5.0); Calcium 8.4 mg/dL (8.4-10.2); Magnesium 2.5 mg/dL (1.6-2.3); Potassium 4.6 mmol/L (3.5-5.1); Total Bilirubin 0.4 mg/dL (0.2-1.3); Total Protein 5.6 g/dL (6.3-8.2)
[2021-10-11] MEDS: PANTOPRAZOLE 40 MG TABLET PO SCH (06:48)
[2021-10-11] MEDS: INSULIN ASPART (NovoLOG) 100 UNIT/ML VIAL SQ SCH ×4 (07:13→21:16)
[2021-10-11] MEDS: BUDESONIDE 1 MG/2 ML NEBU INHALATION SCH ×2 (07:29→20:14)
[2021-10-11] MEDS: IPRATROPIUM-ALBUTEROL 3 ML NEB INHALATION SCH ×4 (07:29→20:14)
[2021-10-11] MEDS: MULTIVITAMINS, THERA 1 EACH TAB PO SCH (08:04)
[2021-10-11] MEDS: CYANOCOBALAMIN 500 MCG TAB PO SCH (08:04)
[2021-10-11] MEDS: METOPROLOL TARTRATE 25 MG TAB PO SCH ×2 (08:04→21:17)
[2021-10-11] MEDS: AZITHROMYCIN 500 MG in SODIUM CHLORIDE 0.9% 250 ML IVPB SCH (08:04)
[2021-10-11] MEDS: LOSARTAN 50 MG TAB PO SCH (08:04)
[2021-10-11] MEDS: FOLIC ACID 1 MG TAB PO SCH (08:04)
[2021-10-11] MEDS: SODIUM CHLORIDE 0.9% 1,000 ML IV SCH (08:05)
[2021-10-11] MEDS ORDERED: DOCUSATE 100 MG CAP PO SCH (09:00)
--- NOTE | 2021-10-11 10:35 | P.PN ---
Subjective Progress Note Date: 10/11/21 Principal diagnosis: Respiratory failure. Acute hypoxic respiratory failure secondary to acute asthma exacerbation and RSV tracheobronchitis. Visit pleasant 80-year-old gentleman who follows with Dr. Zimmerman is his primary care provider. He has a history of atrial fibrillation anticoagulated with Xarelto, DVT, hearing disorder, mild intermittent chronic bronchial asthma, nons moker. He had been seen by Dr. Palafox in the past for shortness of breath that he felt was secondary to a large hiatal hernia and the patient did undergo subsequent surgical repair. He was last seen in 2017. Presented to the emergency room yesterday from his PCPs office after being found to have O2 saturation in low 80s. He was positive for RSV. Negative for cho virus. He had initially been given antibiotics and steroids and only took them for 1 day without much improvement. While in the emergency room he was placed on BiPAP 16/7 and 100% FiO2. Blood gases revealed a PaO2 of 72, pCO2 of 40 and a pH of 7.39. He also was having issues with acute bronchospasm and he was admitted to the intensive care unit. He is seen today in consultation. He is currently sitting up in bed. Awake and alert. He does have a harsh nonproductive cough. He is off the BiPAP and requiring 15 L high flow nasal cannula. His x-ray revealed patchy bilateral infiltrates. White count 9.9. Hemoglobin 15.4. Lymphocyte 0.5. Sodium 135. Potassium 3.9. Bicarb 22. Creatinine 1.13. Glucose 179. Pro-calcitonin 0.07. His continued on DuoNeb inhalations, Pulmicort inhalations, IV Solu-Medrol. Antibiotics in the form of ceftriaxone and azithromycin. Reevaluated today on 10/09/21, patient remains in the ICU, continues to have intermittent episodes of cough, wheezing, shortness of breath. Patient is on high flow oxygen, 70% FiO2 and 60 L flow using airvo, and his O2 saturation is 94-96%. Follow-up chest x-ray this morning showed minimal atelectasis at the bases especially at the left base, doubt infiltrate. Labs were reviewed. These were all done yesterday. Patient was reevaluated today on 10/10/2021, remains in the ICU, feeling much better, breathing a lot easier, nonetheless continues to have intermittent episodes of cough. His O2 saturation is 94%, however the patient remains on relatively high flow oxygen, he is on airvo at 55% and 55 L flow. Clinically the patient is feeling better, and breathing a lot easier. Her cheko on multiple bronchodilators and and steroids. No labs were done today. Progress note dated 10/11/2021. 80-year-old male, who was admitted on October 07, into the intensive care unit for respiratory failure. The patient was discovered to have respiratory syncytial virus infection, with hypoxemic respiratory failure. Currently, the patient is on AIRVO, at 55 L/m with an FiO2 of 55%. The patient is not receiving any IV fluids. The patient is on broad-spectrum antibiotics. I did ask the nurse to repeat a pro-calcitonin level. So far, microbiology is negative. Clinically, he is very short of breath with any activity. He is about the same today as he was yesterday, he tells me. White count 15.4, hemoglobin 14.7, hematocrit 45.6, and platelet count 207,000. Sodium 136, potassium 4.6, chlorides 106, CO2 26, anion gap 4, BUN 31, and creatinine 0.95. Chest x-ray shows cardiomegaly, with patch bilateral infiltrates. Objective - Vital Signs Vital signs: Vital Signs Temp 98.2 F 10/11/21 08:00 Pulse 74 10/11/21 08:00 Resp 17 10/11/21 08:00 BP 139/82 10/11/21 08:00 Pulse Ox 91 L 10/11/21 08:00 Intake & Output 10/10/21 10/11/21 10/11/21 18:59 06:59 18:59 Intake Total 370 920 220 Output Total 500 1200 0 Balance -130 -280 220 Weight 108.7 kg Intake: IV 370 220 20 .9 220 220 20 Azithromycin 500 mg In 100 Sodium Chloride 0.9% 250 ml @ 250 mls/hr IVPB DAILY [facility] Rx#:[id number] cefTRIAXone 2 gm In 50 Sodium Chloride 0.9% 50 ml @ 100 mls/hr IVPB Q24HR@0800 [facility] Rx#: [id number] Oral 700 200 Output: Urine 500 1200 0 Other: Voiding Method External Catheter - Exam Oriented 3, mild conversational dyspnea. AIRVO cannula in place. HEENT examination is grossly unremarkable. Neck supple. Full range of motion. No adenopathy thyromegaly or neck vein distention. Cardiovascular examination reveals regular rhythm rate. S1-S2 normal. No S3 or S4. No discernible murmur noted. Heart sounds are distant. Heart rate 74 bpm. Lungs reveal diffuse bilateral rhonchi. Bibasilar crackles are noted. There are no wheezes. Abdomen soft bowel sounds are heard. No masses or tenderness. Extremities are intact. No cyanosis clubbing or edema. Skin is without rash or lesion. Neurologic examination is brief but nonfocal. - Labs CBC & Chem 7: 10/11/21 03:12 10/11/21 03:12 Labs: Abnormal Lab Results - Last 24 Hours (Table) 10/10/21 10/10/21 10/10/21 Range/Units 10:44 17:07 21:17 WBC (3.8-10.6) k/uL Neutrophils # (1.3-7.7) k/uL Lymphocytes # (1.0-4.8) k/uL Sodium (137-145) mmol/L BUN (9-20) mg/dL Glucose (74-99) mg/dL POC Glucose (mg/dL) 136 H 119 H 123 H (75-99) mg/dL Magnesium (1.6-2.3) mg/dL Total Protein (6.3-8.2) g/dL Albumin (3.5-5.0) g/dL 10/11/21 10/11/21 Range/Units 03:12 03:12 WBC 15.4 H (3.8-10.6) k/uL Neutrophils # 14.3 H (1.3-7.7) k/uL Lymphocytes # 0.7 L (1.0-4.8) k/uL Sodium 136 L (137-145) mmol/L BUN 31 H (9-20) mg/dL Glucose 122 H (74-99) mg/dL POC Glucose (mg/dL) (75-99) mg/dL Magnesium 2.5 H (1.6-2.3) mg/dL Total Protein 5.6 L (6.3-8.2) g/dL Albumin 3.1 L (3.5-5.0) g/dL Microbiology - Last 24 Hours (Table) 10/07/21 16:15 Blood Culture - Preliminary Blood No Growth after 72 hours Assessment and Plan Assessment: Acute hypoxemic respiratory failure secondary to acute asthma exacerbation, triggered by respiratory syncytial virus tracheobronchitis. History of mild intermittent asthma. Paroxysmal atrial fibrillation. History of DVT. Lifelong nontobacco use. Plan: Plan dated 10/11/2021. The patient remains on bronchodilators, as well as oxygen, empiric antibiotics, GI prophylaxis, and Solu-Medrol. The patient also continues on his factor X a inhibitor. We will repeat a pro-calcitonin level. If it is normal, we will discontinue empiric antibiotics. Additional recommendations suggestions are forthcoming. Prognosis is guarded. The patient remains on AIRVO, at 55 L/m with an FiO2 of 55%. X-ray and labs are ordered for the morning. We will continue to follow make recommendations where appropriate. Time with Patient: Greater than 30
[2021-10-11 12:26] LABS: Glucose,Whole Blood 142 mg/dL (75-99)
[2021-10-11 12:58] VITALS: BMI 34.4
--- NOTE | 2021-10-11 15:53 | P.PN ---
<RigobertooliDayamiy A - Last Filed: 10/11/21 15:48> Subjective Progress Note Date: 10/11/21 HISTORY OF PRESENT ILLNESS This is a 80-year-old male with past medical history of hypertension, paroxysmal atrial fibrillation on Xarelto, benign prostatic hypertrophy, hiatal hernia, hereditary factor VIII deficiency, hyperlipidemia. Patient presented to the office yesterday due to shortness of breath cough, exertional dyspnea and was found to have a pulse ox of 84% and patient was sent to [facility] [place] for further evaluation and treatment. Patient was placed on BiPAP overnight and has been transitioned to nasal cannula. CBC was unremarkable. Electrolytes and renal function normal. Blood sugar 176. Liver function tests were normal. ProCalcitonin 0.07. Magnesium 2.0. Lactic acid 1.5. Coronal virus PCR not detected. Chest x-ray reveals patchy bilateral infiltrates correlate for pneumonia. Prominence of descending aorta. Aneurysm not excluded. Patient has a drop in his pulse ox on a 60% and was transferred to the ICU and consult/seen by Dr. Palafox. 10/09: Patient sitting up in bed he is requiring more oxygen today he's been satting about 93-94%, he continued to have occasional cough, no phlegm production, he has no headache, he has no chest pain, he has pain, nausea vomiting or diarrhea, he seems to be tolerating treatment very well, patient con tinues to be somewhat hypertensive, we will start the patient on losartan 50 mg once every other blood pressures not improving in the next 24 hours. 10/10: Patient continues to be hypotensive I will add losartan 50 mg once every day, continue metoprolol 25 mg twice every day, continue patient's in the ICU continue patient on current treatment plan, he continues to require quite a bit of oxygen his saturation is about 94%, we'll continue current ICU care monitor the patient very closely. 10/11: Patient remains in the intensive care unit. Heart rate running between 49 and 64, blood pressure 152/82, pulse ox 92% on high flow nasal cannula. Repeat blood work reveals WBC 15.4. Sodium 136, BUN 31 creatinine 0.95. Capillary blood glucose running between 119 and an 172. Magnesium 2.5. Liver function tests normal. Blood culture showing no growth at 72 hours. REVIEW OF SYSTEMS Constitutional: No fever, no chills, no night sweats. No weight change. Reports weakness, Reports fatigue Reports lethargy. No daytime sleepiness. EENT: No headache. No blurred vision or double vision, no loss of vision. No loss of Hearing. No nasal drainage or congestion. No epistaxis. No sore throat. Lungs: Reports shortness of breath, Reports cough, Reports sputum production. Reports wheezing. Cardiovascular: No chest pain, no lower extremity edema. No palpitations. No paroxysmal nocturnal dyspnea. No orthopnea. No lightheadedness or dizziness. No syncopal episodes. Abdominal: No abdominal pain. No nausea, vomiting. No diarrhea. No constipation. No bloody or tarry stools. No loss of appetite. Genitourinary: No dysuria, increased frequency, urgency. No urinary retention. Musculoskeletal: No myalgias. Reports muscle weakness, no gait dysfunction, no frequent falls. No back pain. No neck pain. Integumentary: No wounds, no lesions. No rash or pruritus. No unusual bruising. No change in hair or nails. Neurologic: No aphasia. No facial droop. No change in mentation. No head injury. No headache. No paralysis. No paresthesia. Psychiatric: No depression. No anxiety. No mood swings. Endocrine: No abnormal blood sugars. No weight change. No excessive sweating or thirst. No cold intolerance. PHYSICAL EXAMINATION Gen: This is an obese 80-year-old male, resting in the ICU, currently on nasal cannula, appears to be fairly comfortable at rest. HEENT: Head is atraumatic, normocephalic. Pupils equal, round. Sclerae is anicteric. NECK: Supple. No JVD. No lymphadenopathy. No thyromegaly. LUNGS: Diminished breath sounds bilaterally. No intercostal retractions. HEART: First heart sound is depressed, second heart sound is normal, 2/6 systolic ejection murmur at the left sternal border. pmo lead is a sinus rhythm. ABDOMEN: Soft. Bowel sounds are present. No masses. No tenderness. EXTREMITIES: No pedal edema. No calf tenderness. NEUROLOGICAL: Patient is awake, alert and oriented x3. Cranial nerves 2 through 12 are grossly intact. ASSESSMENT AND PLAN 1. Acute hypoxic respiratory failure secondary to acute exacerbation of asthma triggered by RSV tracheobronchitis. Patient is managed in the intensive care unit, consult with pulmonary medicine appreciated. Continue azithromycin 500 mg IV piggyback every day, ceftriaxone 2 g IV piggyback every 24 hours, Pulmicort 1 mg twice daily, DuoNeb treatments 4 times daily and as needed, Robitussin with codeine every 6 hours as needed, sliding Medrol 60 mg IV every 6 hours. 2. Acute exacerbation of mild intermittent asthma. Continue as in #1. 3. Paroxysmal atrial fibrillation. Continue Xarelto 20 mg at bedtime, Lopressor 25 mg twice daily. 4. Benign prostatic hypertrophy. Continue Flomax 0.4 mg daily, monitor for urinary retention. 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 6. Hyperlipidemia. Continue low-cholesterol diet and monitor lipid panel. 7. Hypertension and hypertensive cardiovascular disease. Continue patient on metoprolol 25 mg orally twice every day, we will add losartan 50 mg every day monitor blood pressure very closely. 8. GI prophylaxis. Protonix 40 mg IV daily. 9. DVT prophylaxis. Xarelto. 10. COVID-19 testing negative. Patient has been hospitalized during a pandemic. DISCHARGE PLAN Home with [facility] Impression and plan of care have been directed as dictated by the signing physician. Melissa Hairston nurse practitioner acting as scribe for signing physician. Objective - Vital Signs Vital signs: Vital Signs Temp 98.4 F 10/11/21 04:00 Pulse 64 10/11/21 07:33 Resp 22 10/11/21 07:33 BP 139/101 10/11/21 07:00 Pulse Ox 92 L 10/11/21 07:33 Intake & Output 10/10/21 10/11/21 10/11/21 18:59 06:59 18:59 Intake Total 370 920 220 Output Total 500 1200 0 Balance -130 -280 220 Weight 108.7 kg Intake: IV 370 220 20 .9 220 220 20 Azithromycin 500 mg In 100 Sodium Chloride 0.9% 250 ml @ 250 mls/hr IVPB DAILY [facility] Rx#:[id number] cefTRIAXone 2 gm In 50 Sodium Chloride 0.9% 50 ml @ 100 mls/hr IVPB Q24HR@0800 [facility] Rx#: [id number] Oral 700 200 Output: Urine 500 1200 0 Other: Voiding Method External Catheter - Labs CBC & Chem 7: 10/11/21 03:12 10/11/21 03:12 Labs: Abnormal Lab Results - Last 24 Hours (Table) 10/10/21 10/10/21 10/10/21 Range/Units 10:44 17:07 21:17 WBC (3.8-10.6) k/uL Neutrophils # (1.3-7.7) k/uL Lymphocytes # (1.0-4.8) k/uL Sodium (137-145) mmol/L BUN (9-20) mg/dL Glucose (74-99) mg/dL POC Glucose (mg/dL) 136 H 119 H 123 H (75-99) mg/dL Magnesium (1.6-2.3) mg/dL Total Protein (6.3-8.2) g/dL Albumin (3.5-5.0) g/dL 10/11/21 10/11/21 Range/Units 03:12 03:12 WBC 15.4 H (3.8-10.6) k/uL Neutrophils # 14.3 H (1.3-7.7) k/uL Lymphocytes # 0.7 L (1.0-4.8) k/uL Sodium 136 L (137-145) mmol/L BUN 31 H (9-20) mg/dL Glucose 122 H (74-99) mg/dL POC Glucose (mg/dL) (75-99) mg/dL Magnesium 2.5 H (1.6-2.3) mg/dL Total Protein 5.6 L (6.3-8.2) g/dL Albumin 3.1 L (3.5-5.0) g/dL Microbiology - Last 24 Hours (Table) 10/07/21 16:15 Blood Culture - Preliminary Blood No Growth after 72 hours <Buzz Zimmerman - Last Filed: 10/13/21 17:36> Objective - Vital Signs Vital signs: Vital Signs Temp 98.4 F 10/13/21 16:00 Pulse 81 10/13/21 16:42 Resp 18 10/13/21 16:42 BP 132/85 10/13/21 16:00 Pulse Ox 92 L 10/13/21 16:00 Intake & Output 10/12/21 10/13/21 10/13/21 18:59 06:59 18:59 Intake Total 940 300 600 Output Total 550 900 400 Balance 390 -600 200 Weight 110 kg Intake: IV 220 60 .9 220 60 Oral 720 240 600 Output: Urine 550 900 400 Other: Voiding Method Urinal Urinal Urinal # Voids 1 1 # Bowel Movements 1 - Labs CBC & Chem 7: 10/13/21 03:19 10/13/21 03:19 Labs: Abnormal Lab Results - Last 24 Hours (Table) 10/12/21 10/13/21 10/13/21 Range/Units 21:01 03:19 03:19 WBC 14.9 H (3.8-10.6) k/uL Neutrophils # 13.8 H (1.3-7.7) k/uL Lymphocytes # 0.5 L (1.0-4.8) k/uL Sodium 134 L (137-145) mmol/L BUN 38 H (9-20) mg/dL Glucose 129 H (74-99) mg/dL POC Glucose (mg/dL) 128 H (75-99) mg/dL 10/13/21 10/13/21 10/13/21 Range/Units 06:57 11:38 16:50 WBC (3.8-10.6) k/uL Neutrophils # (1.3-7.7) k/uL Lymphocytes # (1.0-4.8) k/uL Sodium (137-145) mmol/L BUN (9-20) mg/dL Glucose (74-99) mg/dL POC Glucose (mg/dL) 104 H 150 H 116 H (75-99) mg/dL Microbiology - Last 24 Hours (Table) 10/07/21 16:15 Blood Culture - Preliminary Blood No Growth after 120 hours
[2021-10-11 17:37] LABS: Glucose,Whole Blood 178 mg/dL (75-99)
[2021-10-11 21:10] LABS: Glucose,Whole Blood 170 mg/dL (75-99)
[2021-10-11] MEDS: TAMSULOSIN 0.4 MG CAP.ER.24H PO SCH (21:18)
[2021-10-11] MEDS: MONTELUKAST 10 MG TAB PO SCH (21:18)
[2021-10-12] MEDS: methylPREDNISolone SOD SUCCI 125 MG/2 ML VIAL IV SCH ×4 (00:01→17:02)
[2021-10-12 04:11] LABS: HGB 15.5 gm/dL (13.0-17.5); MCH 30.8 pg (25.0-35.0); MCHC 32.2 g/dL (31.0-37.0); MCV 95.5 fL (80.0-100.0); Mean Platelet Volume 7.7; Platelet Count 225 k/uL (150-450); RBC 5.03 m/uL (4.30-5.90)
[2021-10-12 04:27] LABS: African American GFR (CKD) >90 (>60 ml/min/1.73 sqM); Anion Gap 3 mmol/L; Blood Urea Nitrogen 37 mg/dL (9-20); Calcium 8.6 mg/dL (8.4-10.2); Carbon Dioxide 29 mmol/L (22-30); Chloride 105 mmol/L (98-107); Glucose 118 mg/dL (74-99); Non-African American GFR(CKD) 80 (>60 ml/min/1.73 sqM); Sodium 137 mmol/L (137-145)
[2021-10-12] MEDS: guaiFENesin-Coden 100-10MG/5ML 10 ML CUP PO PRN (05:00)
[2021-10-12] MEDS: RIVAROXABAN 20 MG TAB PO SCH ×2 (06:46→22:05)
[2021-10-12] MEDS: PANTOPRAZOLE 40 MG TABLET PO SCH (06:52)
[2021-10-12] MEDS: INSULIN ASPART (NovoLOG) 100 UNIT/ML VIAL SQ SCH ×4 (06:53→22:05)
[2021-10-12 06:56] LABS: Glucose,Whole Blood 125 mg/dL (75-99)
--- NOTE | 2021-10-12 08:07 | XR ---
EXAMINATION TYPE: XR chest 1V DATE OF EXAM: 10/12/2021 COMPARISON: Chest x-ray 10/09/2021 HISTORY: Cough TECHNIQUE: Single frontal view of the chest is obtained. FINDINGS: Patchy increased attenuation is present at the lung bases bilaterally. No evident pneumoth orax or pleural effusion. Cardiomediastinal silhouette is likely stable accounting for differences in technique. Bones are unchanged. IMPRESSION: Correlate for pneumonia versus atelectasis
--- NOTE | 2021-10-12 08:19 | P.PN ---
Subjective Progress Note Date: 10/12/21 HISTORY OF PRESENT ILLNESS This is a 80-year-old male with past medical history of hypertension, paroxysmal atrial fibrillation on Xarelto, benign prostatic hypertrophy, hiatal hernia, hereditary factor VIII deficiency, hyperlipidemia. Patient presented to the office yesterday due to shortness of breath cough, exertional dyspnea and was found to have a pulse ox of 84% and patient was sent to [facility] emergency [place] for further evaluation and treatment. Patient was placed on BiPAP overnight and has been transitioned to nasal cannula. CBC was unremarkable. Electrolytes and renal function normal. Blood sugar 176. Liver function tests were normal. ProCalcitonin 0.07. Magnesium 2.0. Lactic acid 1.5. Coronal virus PCR not detected. Chest x-ray reveals patchy bilateral infiltrates correlate for pneumonia. Prominence of descending aorta. Aneurysm not excluded. Patient has a drop in his pulse ox on a 60% and was transferred to the ICU and consult/seen by Dr. Palafox. 10/09: Patient sitting up in bed he is requiring more oxygen today he's been satting about 93-94%, he continued to have occasional cough, no phlegm production, he has no headache, he has no chest pain, he has pain, nausea vomiting or diarrhea, he seems to be tolerating treatment very well, patient continues to be somewhat hypertensive, we will start the patient on losartan 50 mg once every other blood pressures not improving in the next 24 hours. 10/10: Patient continues to be hypotensive I will add losartan 50 mg once every day, continue metoprolol 25 mg twice every day, continue patient's in the ICU continue patient on current treatment plan, he continues to require quite a bit of oxygen his saturation is about 94%, we'll continue current ICU care monitor the patient very closely. 10/11: Patient remains in the intensive care unit. Heart rate running between 49 and 64, blood pressure 152/82, pulse ox 92% on high flow nasal cannula. Repeat blood work reveals WBC 15.4. Sodium 136, BUN 31 creatinine 0.95. Capillary blood glucose running between 119 and an 172. Magnesium 2.5. Liver function tests normal. Blood culture showing no growth at 72 hours. 10/12: Patient remains in the intensive care unit on AirVo 55% and 50 L with pulse ox of 89-93% through the night. Heart rate is running in the 50s, blood pressure 130/78. WBC 16. Capillary blood glucose running between 120s and 178. Patient bothersome congested cough and states he does not feel as well as yesterday. Patient states he was of this year for several hours yesterday. Chest x-ray reveals correlate for pneumonia versus atelectasis. Incentive spirometry will be ordered, patient to be up in a chair today as well. REVIEW OF SYSTEMS Constitutional: No fever, no chills, no night sweats. No weight change. Reports weakness, Reports fatigue Reports lethargy. No daytime sleepiness. EENT: No headache. No blurred vision or double vision, no loss of vision. No loss of Hearing. No nasal drainage or congestion. No epistaxis. No sore throat. Lungs: Reports shortness of breath, Reports cough, Reports sputum production. Reports wheezing. Cardiovascular: No chest pain, no lower extremity edema. No palpitations. No paroxysmal nocturnal dyspnea. No orthopnea. No lightheadedness or dizziness. No syncopal episodes. Abdominal: No abdominal pain. No nausea, vomiting. No diarrhea. No constipation. No bloody or tarry stools. No loss of appetite. Genitourinary: No dysuria, increased frequency, urgency. No urinary retention. Musculoskeletal: No myalgias. Reports muscle weakness, no gait dysfunction, no frequent falls. No back pain. No neck pain. Integumentary: No wounds, no lesions. No rash or pruritus. No unusual bruising. Neurologic: No aphasia. No facial droop. No change in mentation. No head injury. No headache. No paralysis. No paresthesia. Psychiatric: No depression. No anxiety. No mood swings. Endocrine: No abnormal blood sugars. No weight change. No excessive sweating or thirst. No cold intolerance. PHYSICAL EXAMINATION Gen: This is an obese 80-year-old male, resting in the ICU bed, currently on AirVo, appears to be fairly comfortable at rest. HEENT: Head is atraumatic, normocephalic. Pupils equal, round. Sclerae is anicteric. NECK: Supple. No JVD. No lymphadenopathy. No thyromegaly. LUNGS: Diminished breath sounds bilaterally. Bilateral rhonchi. No intercostal retractions. HEART: First heart sound is depressed, second heart sound is normal, 2/6 systolic ejection murmur at the left sternal border. monitoring and evaluation advisor is a sinus rhythm. ABDOMEN: Soft. Bowel sounds are present. No masses. No tenderness. EXTREMITIES: No pedal edema. No calf tenderness. NEUROLOGICAL: Patient is awake, alert and oriented x3. Cranial nerves 2 through 12 are grossly intact. ASSESSMENT AND PLAN 1. Acute hypoxic respiratory failure secondary to acute exacerbation of asthma triggered by RSV tracheobronchitis. Patient is managed in the intensive care unit, consult with pulmonary medicine appreciated. Continue azithromycin 500 mg IV piggyback every day, ceftriaxone 2 g IV piggyback every 24 hours, Pulmicort 1 mg twice daily, DuoNeb treatments 4 times daily and as needed, Robitussin with codeine every 6 hours as needed, sliding Medrol 60 mg IV every 6 hours, no change in steroid, add IS. 2. Acute exacerbation of mild intermittent asthma. Continue as in #1. 3. Paroxysmal atrial fibrillation. Continue Xarelto 20 mg at bedtime, Lopressor 25 mg twice daily. 4. Benign prostatic hypertrophy. Continue Flomax 0.4 mg daily, monitor for urinary retention. 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 6. Hyperlipidemia. Continue low-cholesterol diet and monitor lipid panel. 7. Hypertension and hypertensive cardiovascular disease. Continue patient on metoprolol 25 mg orally twice every day, we will add losartan 50 mg every day monitor blood pressure very closely. 8. GI prophylaxis. Protonix 40 mg IV daily. 9. DVT prophylaxis. Xarelto. 10. COVID-19 testing negative. Patient has been hospitalized during a pandemic. DISCHARGE PLAN Home with [facility] Impression and plan of care have been directed as dictated by the signing physician. Melissa Hairston nurse practitioner acting as scribe for signing physician. Objective - Vital Signs Vital signs: Vital Signs Temp 97.8 F 10/12/21 04:00 Pulse 51 L 10/12/21 07:00 Resp 16 10/12/21 07:00 BP 135/78 10/12/21 07:00 Pulse Ox 92 L 10/12/21 07:00 Intake & Output 10/11/21 10/12/21 10/12/21 18:59 06:59 18:59 Intake Total 540 300 Output Total 1100 1150 Balance -560 -850 Weight 108.7 kg 109.4 kg Intake: IV 340 .9 40 Azithromycin 500 mg In 250 Sodium Chloride 0.9% 250 ml @ 250 mls/hr IVPB DAILY [facility] Rx#:[id number] cefTRIAXone 2 gm In 50 Sodium Chloride 0.9% 50 ml @ 100 mls/hr IVPB Q24HR@0800 [facility] Rx#: [id number] Oral 200 300 Output: Urine 1100 1150 Other: Voiding Method External Catheter - Labs CBC & Chem 7: 10/12/21 03:17 10/12/21 03:17 Labs: Abnormal Lab Results - Last 24 Hours (Table) 10/11/21 10/11/21 10/11/21 Range/Units 12:25 17:36 21:08 WBC (3.8-10.6) k/uL BUN (9-20) mg/dL Glucose (74-99) mg/dL POC Glucose (mg/dL) 142 H 178 H 170 H (75-99) mg/dL 10/12/21 10/12/21 10/12/21 Range/Units 03:17 03:17 06:54 WBC 16.0 H (3.8-10.6) k/uL BUN 37 H (9-20) mg/dL Glucose 118 H (74-99) mg/dL POC Glucose (mg/dL) 125 H (75-99) mg/dL Microbiology - Last 24 Hours (Table) 10/07/21 16:15 Blood Culture - Preliminary Blood No Growth after 96 hours
[2021-10-12] MEDS: IPRATROPIUM-ALBUTEROL 3 ML NEB INHALATION SCH ×4 (09:16→20:51)
[2021-10-12] MEDS: BUDESONIDE 1 MG/2 ML NEBU INHALATION SCH ×2 (09:16→20:51)
[2021-10-12] MEDS: METOPROLOL TARTRATE 25 MG TAB PO SCH ×2 (09:18→22:06)
[2021-10-12] MEDS: CYANOCOBALAMIN 500 MCG TAB PO SCH (09:18)
[2021-10-12] MEDS: LOSARTAN 50 MG TAB PO SCH (09:18)
[2021-10-12] MEDS: MULTIVITAMINS, THERA 1 EACH TAB PO SCH (09:19)
[2021-10-12] MEDS: FOLIC ACID 1 MG TAB PO SCH (09:19)
[2021-10-12] MEDS: SODIUM CHLORIDE 0.9% 1,000 ML IV SCH (09:36)
--- NOTE | 2021-10-12 11:15 | P.PN ---
Subjective Progress Note Date: 10/12/21 Principal diagnosis: Respiratory failure. Acute hypoxic respiratory failure secondary to acute asthma exacerbation and RSV tracheobronchitis. Visit pleasant 80-year-old gentleman who follows with Dr. Zimmerman is his primary care provider. He has a history of atrial fibrillation anticoagulated with Xarelto, DVT, hearing disorder, mild intermittent chronic bronchial asthma, nons moker. He had been seen by Dr. Palafox in the past for shortness of breath that he felt was secondary to a large hiatal hernia and the patient did undergo subsequent surgical repair. He was last seen in 2017. Presented to the emergency room yesterday from his PCPs office after being found to have O2 saturation in low 80s. He was positive for RSV. Negative for cho virus. He had initially been given antibiotics and steroids and only took them for 1 day without much improvement. While in the emergency room he was placed on BiPAP 16/7 and 100% FiO2. Blood gases revealed a PaO2 of 72, pCO2 of 40 and a pH of 7.39. He also was having issues with acute bronchospasm and he was admitted to the intensive care unit. He is seen today in consultation. He is currently sitting up in bed. Awake and alert. He does have a harsh nonproductive cough. He is off the BiPAP and requiring 15 L high flow nasal cannula. His x-ray revealed patchy bilateral infiltrates. White count 9.9. Hemoglobin 15.4. Lymphocyte 0.5. Sodium 135. Potassium 3.9. Bicarb 22. Creatinine 1.13. Glucose 179. Pro-calcitonin 0.07. His continued on DuoNeb inhalations, Pulmicort inhalations, IV Solu-Medrol. Antibiotics in the form of ceftriaxone and azithromycin. Reevaluated today on 10/09/21, patient remains in the ICU, continues to have intermittent episodes of cough, wheezing, shortness of breath. Patient is on high flow oxygen, 70% FiO2 and 60 L flow using airvo, and his O2 saturation is 94-96%. Follow-up chest x-ray this morning showed minimal atelectasis at the bases especially at the left base, doubt infiltrate. Labs were reviewed. These were all done yesterday. Patient was reevaluated today on 10/10/2021, remains in the ICU, feeling much better, breathing a lot easier, nonetheless continues to have intermittent episodes of cough. His O2 saturation is 94%, however the patient remains on relatively high flow oxygen, he is on airvo at 55% and 55 L flow. Clinically the patient is feeling better, and breathing a lot easier. Her cheko on multiple bronchodilators and and steroids. No labs were done today. Progress note dated 10/11/2021. 80-year-old male, who was admitted on October 07, into the intensive care unit for respiratory failure. The patient was discovered to have respiratory syncytial virus infection, with hypoxemic respiratory failure. Currently, the patient is on AIRVO, at 55 L/m with an FiO2 of 55%. The patient is not receiving any IV fluids. The patient is on broad-spectrum antibiotics. I did ask the nurse to repeat a pro-calcitonin level. So far, microbiology is negative. Clinically, he is very short of breath with any activity. He is about the same today as he was yesterday, he tells me. White count 15.4, hemoglobin 14.7, hematocrit 45.6, and platelet count 207,000. Sodium 136, potassium 4.6, chlorides 106, CO2 26, anion gap 4, BUN 31, and creatinine 0.95. Chest x-ray shows cardiomegaly, with patch bilateral infiltrates. Progress note dated 10/12/2021. This is a 80-year-old gentleman who's been now in the hospital for 5 days. He was admitted back on October 07, into the intensive care unit, for respiratory failure. The patient was positive for RSV infection, with hypoxemic respiratory failure, and asthma exacerbation. The patient remains on AIRVO at 50 L/m and 55%. This is essentially what he was on yesterday. The patient is still very short of breath. White count 16, hemoglobin 15.5, hematocrit 48, platelet count 225,000. Sodium 137, potassium 5, chlorides 105, CO2 29, anion gap 3, BUN 37, and creatinine 0.92. The patient's chest x-ray shows bilateral infiltrates, and is essentially unchanged. Objective - Vital Signs Vital signs: Vital Signs Temp 98.5 F 10/12/21 08:00 Pulse 55 L 10/12/21 11:00 Resp 22 10/12/21 09:30 BP 124/101 10/12/21 11:00 Pulse Ox 89 L 10/12/21 11:00 Intake & Output 10/11/21 10/12/21 10/12/21 18:59 06:59 18:59 Intake Total 540 300 140 Output Total 1100 1150 250 Balance -560 -850 -110 Weight 108.7 kg 109.4 kg Intake: IV 340 20 .9 40 20 Azithromycin 500 mg In 250 Sodium Chloride 0.9% 250 ml @ 250 mls/hr IVPB DAILY [facility] Rx#:[id number] cefTRIAXone 2 gm In 50 Sodium Chloride 0.9% 50 ml @ 100 mls/hr IVPB Q24HR@0800 [facility] Rx#: [id number] Oral 200 300 120 Output: Urine 1100 1150 250 Other: Voiding Method External Catheter - Exam Oriented 3, mild conversational dyspnea. AIRVO cannula in place. HEENT examination is grossly unremarkable. Neck supple. Full range of motion. No adenopathy thyromegaly or neck vein distention. Cardiovascular examination reveals regular rhythm rate. S1-S2 normal. No S3 or S4. No discernible murmur noted. Heart sounds are distant. Heart rate 55 bpm. Lungs reveal diffuse bilateral rhonchi. Bibasilar crackles are noted. There are no wheezes. Abdomen soft bowel sounds are heard. No masses or tenderness. Extremities are intact. No cyanosis clubbing or edema. Skin is without rash or lesion. Neurologic examination is brief but nonfocal. - Labs CBC & Chem 7: 10/12/21 03:17 10/12/21 03:17 Labs: Abnormal Lab Results - Last 24 Hours (Table) 10/11/21 10/11/21 10/11/21 Range/Units 12:25 17:36 21:08 WBC (3.8-10.6) k/uL BUN (9-20) mg/dL Glucose (74-99) mg/dL POC Glucose (mg/dL) 142 H 178 H 170 H (75-99) mg/dL 10/12/21 10/12/21 10/12/21 Range/Units 03:17 03:17 06:54 WBC 16.0 H (3.8-10.6) k/uL BUN 37 H (9-20) mg/dL Glucose 118 H (74-99) mg/dL POC Glucose (mg/dL) 125 H (75-99) mg/dL Microbiology - Last 24 Hours (Table) 10/07/21 16:15 Blood Culture - Preliminary Blood No Growth after 96 hours Assessment and Plan Assessment: Acute hypoxemic respiratory failure secondary to acute asthma exacerbation, triggered by respiratory syncytial virus tracheobronchitis. History of mild intermittent asthma. Paroxysmal atrial fibrillation. History of DVT. Lifelong nontobacco use. Plan: Plan dated 10/11/2021. The patient remains on bronchodilators, as well as oxygen, empiric antibiotics, GI prophylaxis, and Solu-Medrol. The patient also continues on his factor X a inhibitor. We will repeat a pro-calcitonin level. If it is normal, we will discontinue empiric antibiotics. Additional recommendations suggestions are forthcoming. Prognosis is guarded. The patient remains on AIRVO, at 55 L/m with an FiO2 of 55%. X-ray and labs are ordered for the morning. We will continue to follow make recommendations where appropriate. Plan dated 10/12/2021. Currently, the patient's about the same as he was yesterday. He remains on updrafts, as well as both Pulmicort, and Robitussin. The patient is also on Singulair, and corticosteroids. The patient's pro-calcitonin level was normal, and hence, the patient's antibiotics were discontinued. The patient is encouraged to deep breathe, cough, and clear any secretions. We will continue to follow. We added Perforomist to his regimen. Time with Patient: Greater than 30
[2021-10-12 12:06] LABS: Glucose,Whole Blood 99 mg/dL (75-99)
[2021-10-12 17:02] LABS: Glucose,Whole Blood 113 mg/dL (75-99)
[2021-10-12] MEDS: FORMOTEROL FUMARATE 20 MCG/2 ML NEBU INHALATION SCH (20:51)
[2021-10-12 21:02] LABS: Glucose,Whole Blood 128 mg/dL (75-99)
[2021-10-12] MEDS: TAMSULOSIN 0.4 MG CAP.ER.24H PO SCH (22:05)
[2021-10-12] MEDS: MONTELUKAST 10 MG TAB PO SCH (22:05)
[2021-10-13 03:32] LABS: Basophils % (A) 0 %; Eosinophils # (A) 0.1 k/uL (0-0.7); Eosinophils % (A) 1 %; HCT 46.6 % (39.0-53.0); HGB 15.2 gm/dL (13.0-17.5); Lymphocytes # (A) 0.5 k/uL (1.0-4.8); Lymphocytes % (A) 4 %; MCHC 32.7 g/dL (31.0-37.0); MCV 94.8 fL (80.0-100.0); Mean Platelet Volume 7.6; Monocytes # (A) 0.5 k/uL (0-1.0); Monocytes % (A) 3 %; Neutrophils # (A) 13.8 k/uL (1.3-7.7); Neutrophils % (A) 92 %; Platelet Count 212 k/uL (150-450); RBC 4.91 m/uL (4.30-5.90); RDW 13.9 % (11.5-15.5); WBC 14.9 k/uL (3.8-10.6)
[2021-10-13 03:43] LABS: Calcium 8.4 mg/dL (8.4-10.2); Potassium 4.6 mmol/L (3.5-5.1)
[2021-10-13] MEDS: methylPREDNISolone SOD SUCCI 125 MG/2 ML VIAL IV SCH ×4 (05:33→18:56)
[2021-10-13 06:59] LABS: Glucose,Whole Blood 104 mg/dL (75-99)
[2021-10-13] MEDS: INSULIN ASPART (NovoLOG) 100 UNIT/ML VIAL SQ SCH ×4 (07:10→21:46)
--- NOTE | 2021-10-13 09:17 | XR ---
EXAMINATION TYPE: XR chest 1V portable DATE OF EXAM: 10/13/2021 COMPARISON: Chest x-ray 10/12/2021 HISTORY: Respiratory distress TECHNIQUE: Single frontal view of the chest is obtained. FINDINGS: Findings are similar to prior exam. Patient is rotated. Cardiac mediastinal silhouette miladis ws a similar appearance. No evident pneumothorax. Bibasilar attenuation is improved somewhat. IMPRESSION: There is some improvement in aeration.
[2021-10-13] MEDS: IPRATROPIUM-ALBUTEROL 3 ML NEB INHALATION SCH ×5 (09:21→20:30)
[2021-10-13] MEDS: BUDESONIDE 1 MG/2 ML NEBU INHALATION SCH ×2 (09:21→20:30)
[2021-10-13] MEDS: FORMOTEROL FUMARATE 20 MCG/2 ML NEBU INHALATION SCH ×2 (09:21→20:30)
[2021-10-13] MEDS: PANTOPRAZOLE 40 MG TABLET PO SCH (09:35)
[2021-10-13] MEDS: CYANOCOBALAMIN 500 MCG TAB PO SCH (09:35)
[2021-10-13] MEDS: FOLIC ACID 1 MG TAB PO SCH (09:36)
[2021-10-13] MEDS: LOSARTAN 50 MG TAB PO SCH (09:36)
[2021-10-13] MEDS: METOPROLOL TARTRATE 25 MG TAB PO SCH ×2 (09:36→21:46)
[2021-10-13] MEDS: MULTIVITAMINS, THERA 1 EACH TAB PO SCH (09:37)
[2021-10-13] MEDS: SODIUM CHLORIDE 0.9% 1,000 ML IV SCH (09:38)
[2021-10-13 11:40] LABS: Glucose,Whole Blood 150 mg/dL (75-99)
--- NOTE | 2021-10-13 12:26 | P.PN ---
Subjective Progress Note Date: 10/13/21 Principal diagnosis: Respiratory failure. Acute hypoxic respiratory failure secondary to acute asthma exacerbation and RSV tracheobronchitis. Visit pleasant 80-year-old gentleman who follows with Dr. Zimmerman is his primary care provider. He has a history of atrial fibrillation anticoagulated with Xarelto, DVT, hearing disorder, mild intermittent chronic bronchial asthma, nons moker. He had been seen by Dr. Palafox in the past for shortness of breath that he felt was secondary to a large hiatal hernia and the patient did undergo subsequent surgical repair. He was last seen in 2017. Presented to the emergency room yesterday from his PCPs office after being found to have O2 saturation in low 80s. He was positive for RSV. Negative for coh virus. He had initially been given antibiotics and steroids and only took them for 1 day without much improvement. While in the emergency room he was placed on BiPAP 16/7 and 100% FiO2. Blood gases revealed a PaO2 of 72, pCO2 of 40 and a pH of 7.39. He also was having issues with acute bronchospasm and he was admitted to the intensive care unit. He is seen today in consultation. He is currently sitting up in bed. Awake and alert. He does have a harsh nonproductive cough. He is off the BiPAP and requiring 15 L high flow nasal cannula. His x-ray revealed patchy bilateral infiltrates. White count 9.9. Hemoglobin 15.4. Lymphocyte 0.5. Sodium 135. Potassium 3.9. Bicarb 22. Creatinine 1.13. Glucose 179. Pro-calcitonin 0.07. His continued on DuoNeb inhalations, Pulmicort inhalations, IV Solu-Medrol. Antibiotics in the form of ceftriaxone and azithromycin. Reevaluated today on 10/09/21, patient remains in the ICU, continues to have intermittent episodes of cough, wheezing, shortness of breath. Patient is on high flow oxygen, 70% FiO2 and 60 L flow using airvo, and his O2 saturation is 94-96%. Follow-up chest x-ray this morning showed minimal atelectasis at the bases especially at the left base, doubt infiltrate. Labs were reviewed. These were all done yesterday. Patient was reevaluated today on 10/10/2021, remains in the ICU, feeling much better, breathing a lot easier, nonetheless continues to have intermittent episodes of cough. His O2 saturation is 94%, however the patient remains on relatively high flow oxygen, he is on airvo at 55% and 55 L flow. Clinically the patient is feeling better, and breathing a lot easier. Her cheko on multiple bronchodilators and and steroids. No labs were done today. Progress note dated 10/11/2021. 80-year-old male, who was admitted on October 07, into the intensive care unit for respiratory failure. The patient was discovered to have respiratory syncytial virus infection, with hypoxemic respiratory failure. Currently, the patient is on AIRVO, at 55 L/m with an FiO2 of 55%. The patient is not receiving any IV fluids. The patient is on broad-spectrum antibiotics. I did ask the nurse to repeat a pro-calcitonin level. So far, microbiology is negative. Clinically, he is very short of breath with any activity. He is about the same today as he was yesterday, he tells me. White count 15.4, hemoglobin 14.7, hematocrit 45.6, and platelet count 207,000. Sodium 136, potassium 4.6, chlorides 106, CO2 26, anion gap 4, BUN 31, and creatinine 0.95. Chest x-ray shows cardiomegaly, with patch bilateral infiltrates. Progress note dated 10/12/2021. This is a 80-year-old gentleman who's been now in the hospital for 5 days. He was admitted back on October 07, into the intensive care unit, for respiratory failure. The patient was positive for RSV infection, with hypoxemic respiratory failure, and asthma exacerbation. The patient remains on AIRVO at 50 L/m and 55%. This is essentially what he was on yesterday. The patient is still very short of breath. White count 16, hemoglobin 15.5, hematocrit 48, platelet count 225,000. Sodium 137, potassium 5, chlorides 105, CO2 29, anion gap 3, BUN 37, and creatinine 0.92. The patient's chest x-ray shows bilateral infiltrates, and is essentially unchanged. Progress note dated 10/13/2021. 80-year-old male is been the hospital now for 6 days. He was admitted back on October 07. Into the ICU, for respiratory failure secondary to RSV infection and asthma exacerbation. Currently, unfortunately, he remains on AIRVO, at 50 L/m and an FiO2 of 50%. He's quite short of breath with any activity. He feels like he is really not improving, but also not getting any worse. White count 14.9, with a normal hemoglobin, hematocrit, and platelet count. Sodium 134, potassium 4.6, chlorides 105, CO2 25, anion gap 4, BUN 38, and creatinine 1. Chest x-ray shows some improvement in the patient's lung aeration. Objective - Vital Signs Vital signs: Vital Signs Temp 97.9 F 10/13/21 08:00 Pulse 81 10/13/21 12:15 Resp 16 10/13/21 12:15 BP 137/77 10/13/21 11:00 Pulse Ox 91 L 10/13/21 11:00 Intake & Output 10/12/21 10/13/21 10/13/21 18:59 06:59 18:59 Intake Total 940 300 240 Output Total 550 900 400 Balance 390 -600 -160 Weight 110 kg Intake: IV 220 60 .9 220 60 Oral 720 240 240 Output: Urine 550 900 400 Other: Voiding Method Urinal Urinal Urinal # Voids 1 1 # Bowel Movements 1 - Exam Oriented 3, mild conversational dyspnea. AIRVO cannula in place. Saturations are 91% HEENT examination is grossly unremarkable. Neck supple. Full range of motion. No adenopathy thyromegaly or neck vein distention. Cardiovascular examination reveals regular rhythm rate. S1-S2 normal. No S3 or S4. No discernible murmur noted. Heart sounds are distant. Heart rate 81 bpm. Lungs reveal diffuse bilateral rhonchi. Bibasilar crackles are noted. There are no wheezes. Abdomen soft bowel sounds are heard. No masses or tenderness. Extremities are intact. No cyanosis clubbing or edema. Skin is without rash or lesion. Neurologic examination is brief but nonfocal. - Labs CBC & Chem 7: 10/13/21 03:19 10/13/21 03:19 Labs: Abnormal Lab Results - Last 24 Hours (Table) 10/12/21 10/12/21 10/13/21 Range/Units 16:59 21:01 03:19 WBC 14.9 H (3.8-10.6) k/uL Neutrophils # 13.8 H (1.3-7.7) k/uL Lymphocytes # 0.5 L (1.0-4.8) k/uL Sodium (137-145) mmol/L BUN (9-20) mg/dL Glucose (74-99) mg/dL POC Glucose (mg/dL) 113 H 128 H (75-99) mg/dL 10/13/21 10/13/21 10/13/21 Range/Units 03:19 06:57 11:38 WBC (3.8-10.6) k/uL Neutrophils # (1.3-7.7) k/uL Lymphocytes # (1.0-4.8) k/uL Sodium 134 L (137-145) mmol/L BUN 38 H (9-20) mg/dL Glucose 129 H (74-99) mg/dL POC Glucose (mg/dL) 104 H 150 H (75-99) mg/dL Microbiology - Last 24 Hours (Table) 10/07/21 16:15 Blood Culture - Preliminary Blood No Growth after 120 hours Assessment and Plan Assessment: Acute hypoxemic respiratory failure secondary to acute asthma exacerbation, triggered by respiratory syncytial virus tracheobronchitis. History of mild intermittent asthma. Paroxysmal atrial fibrillation. History of DVT. Lifelong nontobacco use. Plan: Plan dated 10/11/2021. The patient remains on bronchodilators, as well as oxygen, empiric antibiotics, GI prophylaxis, and Solu-Medrol. The patient also continues on his factor X a inhibitor. We will repeat a pro-calcitonin level. If it is normal, we will discontinue empiric antibiotics. Additional recommendations suggestions are forthcoming. Prognosis is guarded. The patient remains on AIRVO, at 55 L/m with an FiO2 of 55%. X-ray and labs are ordered for the morning. We will continue to follow make recommendations where appropriate. Plan dated 10/12/2021. Currently, the patient's about the same as he was yesterday. He remains on updrafts, as well as both Pulmicort, and Robitussin. The patient is also on Singulair, and corticosteroids. The patient's pro-calcitonin level was normal, and hence, the patient's antibiotics were discontinued. The patient is encouraged to deep breathe, cough, and clear any secretions. We will continue t o follow. We added Perforomist to his regimen. Plan dated 10/13/2021. The patient remains on AIRVO, at 50 L/m with an FiO2 of 50%. He is not getting any IV fluids. His antibiotics were discontinued, because his pro-calcitonin level was normal. The patient is encouraged to take deep breaths, cough, and clear secretions. We also recommend him using the incentive spirometer. The patient is on Pulmicort and Perforomist. He remains on updrafts. We will continue to follow make recommendations where appropriate. He has not really improved clinically over the last 2 or 3 days. Radiographically, there may be some improvement. Time with Patient: Greater than 30
[2021-10-13 16:52] LABS: Glucose,Whole Blood 116 mg/dL (75-99)
--- NOTE | 2021-10-13 17:27 | P.PN ---
Subjective Progress Note Date: 10/13/21 Progress Note Date: 10/13/21 HISTORY OF PRESENT ILLNESS This is a 80-year-old male with past medical history of hypertension, paroxysmal atrial fibrillation on Xarelto, benign prostatic hypertrophy, hiatal hernia, hereditary factor VIII deficiency, hyperlipidemia. Patient presented to the office yesterday due to shortness of breath cough, exertional dyspnea and was found to have a pulse ox of 84% and patient was sent to [facility] emergency center for further evaluation and treatment. Patient was placed on BiPAP overnight and has been transitioned to nasal cannula. CBC was unremarkable. Electrolytes and renal function normal. Blood sugar 176. Liver function tests were normal. ProCalcitonin 0.07. Magnesium 2.0. Lactic acid 1.5. Coronal virus PCR not detected. Chest x-ray reveals patchy bilateral infiltrates correlate for pneumonia. Prominence of descending aorta. Aneurysm not excluded. Patient has a drop in his pulse ox on a 60% and was transferred to the ICU and consult/seen by Dr. Palafox. 10/09: Patient sitting up in bed he is requiring more oxygen today he's been satting about 93-94%, he continued to have occasional cough, no phlegm production, he has no headache, he has no chest pain, he has pain, nausea vomiting or diarrhea, he seems to be tolerating treatment very well, patient continues to be somewhat hypertensive, we will start the patient on losartan 50 mg once every other blood pressures not improving in the next 24 hours. 10/10: Patient continues to be hypotensive I will add losartan 50 mg once every day, continue metoprolol 25 mg twice every day, continue patient's in the ICU continue patient on current treatment plan, he continues to require quite a bit of oxygen his saturation is about 94%, we'll continue current ICU care monitor the patient very closely. 10/11: Patient remains in the intensive care unit. Heart rate running between 49 and 64, blood pressure 152/82, pulse ox 92% on high flow nasal cannula. Repeat blood work reveals WBC 15.4. Sodium 136, BUN 31 creatinine 0.95. Capillary blood glucose running between 119 and an 172. Magnesium 2.5. Liver function tests normal. Blood culture showing no growth at 72 hours. 10/12: Patient remains in the intensive care unit on AirVo 55% and 50 L with pulse ox of 89-93% through the night. Heart rate is running in the 50s, blood pressure 130/78. WBC 16. Capillary blood glucose running between 120s and 178. Patient bothersome congested cough and states he does not feel as well as yesterday. Patient states he was of this year for several hours yesterday. Chest x-ray reveals correlate for pneumonia versus atelectasis. Incentive spirometry will be ordered, patient to be up in a chair today as well. 10/13: Patient sitting up in bed in intensive care unit, continue on AirVo 50% , chest x-ray did show evidence of better aeration of the lung, he continues to be short of breath, he continues to have minimal coughing from production, he is using incentive spirometer, monitor the patient very closely continue current treatment plan, pulmonary is following. REVIEW OF SYSTEMS Constitutional: No fever, no chills, no night sweats. No weight change. Reports weakness, Reports fatigue Reports lethargy. No daytime sleepiness. EENT: No headache. No blurred vision or double vision, no loss of vision. No loss of Hearing. No nasal drainage or congestion. No epistaxis. No sore thr oat. Lungs: Reports shortness of breath, Reports cough, Reports sputum production. Reports wheezing. Cardiovascular: No chest pain, no lower extremity edema. No palpitations. No paroxysmal nocturnal dyspnea. No orthopnea. No lightheadedness or dizziness. No syncopal episodes. Abdominal: No abdominal pain. No nausea, vomiting. No diarrhea. No constipation. No bloody or tarry stools. No loss of appetite. Genitourinary: No dysuria, increased frequency, urgency. No urinary retention. Musculoskeletal: No myalgias. Reports muscle weakness, no gait dysfunction, no frequent falls. No back pain. No neck pain. Integumentary: No wounds, no lesions. No rash or pruritus. No unusual bruis ing. Neurologic: No aphasia. No facial droop. No change in mentation. No head injury. No headache. No paralysis. No paresthesia. Psychiatric: No depression. No anxiety. No mood swings. Endocrine: No abnormal blood sugars. No weight change. No excessive sweating or thirst. No cold intolerance. PHYSICAL EXAMINATION Gen: This is an obese 80-year-old male, resting in the ICU bed, currently on AirVo, appears to be fairly comfortable at rest. HEENT: Head is atraumatic, normocephalic. Pupils equal, round. Sclerae is anicteric. NECK: Supple. No JVD. No lymphadenopathy. No thyromegaly. LUNGS: Diminished breath sounds bilaterally. Bilateral rhonchi. No intercostal retractions. HEART: First heart sound is depressed, second heart sound is normal, 2/6 syst olic ejection murmur at the left sternal border. journalists and other writers is a sinus rhythm. ABDOMEN: Soft. Bowel sounds are present. No masses. No tenderness. EXTREMITIES: No pedal edema. No calf tenderness. NEUROLOGICAL: Patient is awake, alert and oriented x3. Cranial nerves 2 through 12 are grossly intact. ASSESSMENT AND PLAN 1. Acute hypoxic respiratory failure secondary to acute exacerbation of asthma triggered by RSV tracheobronchitis. Patient is managed in the intensive care unit, consult with pulmonary medicine appreciated. Continue azithromycin 500 mg IV piggyback every day, ceftriaxone 2 g IV piggyback every 24 hours, Pulmicort 1 mg twice daily, DuoNeb treatments 4 times daily and as needed, Robitussin with codeine every 6 hours as needed, sliding Medrol 60 mg IV every 6 hours, no change in steroid, add IS. 2. Acute exacerbation of mild intermittent asthma. Continue as in #1. 3. Paroxysmal atrial fibrillation. Continue Xarelto 20 mg at bedtime, Lopressor 25 mg twice daily. 4. Benign prostatic hypertrophy. Continue Flomax 0.4 mg daily, monitor for urinary retention. 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 6. Hyperlipidemia. Continue low-cholesterol diet and monitor lipid panel. 7. Hypertension and hypertensive cardiovascular disease. Continue patient on metoprolol 25 mg orally twice every day, we will add losartan 50 mg every day monitor blood pressure very closely. 8. GI prophylaxis. Protonix 40 mg IV daily. 9. DVT prophylaxis. Xarelto. 10. COVID-19 testing negative. Patient has been hospitalized during a pandemic. Objective - Vital Signs Vital signs: Vital Signs Temp 97.9 F 10/13/21 08:00 Pulse 81 10/13/21 12:15 Resp 16 10/13/21 12:15 BP 137/77 10/13/21 11:00 Pulse Ox 91 L 10/13/21 11:00 Intake & Output 10/12/21 10/13/21 10/13/21 18:59 06:59 18:59 Intake Total 940 300 240 Output Total 550 900 400 Balance 390 -600 -160 Weight 110 kg Intake: IV 220 60 .9 220 60 Oral 720 240 240 Output: Urine 550 900 400 Other: Voiding Method Urinal Urinal Urinal # Voids 1 1 # Bowel Movements 1 - Labs CBC & Chem 7: 10/13/21 03:19 10/13/21 03:19 Labs: Abnormal Lab Results - Last 24 Hours (Table) 10/12/21 10/12/21 10/13/21 Range/Units 16:59 21:01 03:19 WBC 14.9 H (3.8-10.6) k/uL Neutrophils # 13.8 H (1.3-7.7) k/uL Lymphocytes # 0.5 L (1.0-4.8) k/uL Sodium (137-145) mmol/L BUN (9-20) mg/dL Glucose (74-99) mg/dL POC Glucose (mg/dL) 113 H 128 H (75-99) mg/dL 10/13/21 10/13/21 10/13/21 Range/Units 03:19 06:57 11:38 WBC (3.8-10.6) k/uL Neutrophils # (1.3-7.7) k/uL Lymphocytes # (1.0-4.8) k/uL Sodium 134 L (137-145) mmol/L BUN 38 H (9-20) mg/dL Glucose 129 H (74-99) mg/dL POC Glucose (mg/dL) 104 H 150 H (75-99) mg/dL Microbiology - Last 24 Hours (Table) 10/07/21 16:15 Blood Culture - Preliminary Blood No Growth after 120 hours
[2021-10-13 21:23] LABS: Glucose,Whole Blood 150 mg/dL (75-99)
[2021-10-13] MEDS: MONTELUKAST 10 MG TAB PO SCH (21:46)
[2021-10-13] MEDS: RIVAROXABAN 20 MG TAB PO SCH (21:46)
[2021-10-13] MEDS: TAMSULOSIN 0.4 MG CAP.ER.24H PO SCH (21:46)
[2021-10-14] MEDS: methylPREDNISolone SOD SUCCI 125 MG/2 ML VIAL IV SCH ×4 (00:20→18:24)
[2021-10-14 06:45] LABS: Glucose,Whole Blood 109 mg/dL (75-99)
[2021-10-14] MEDS: INSULIN ASPART (NovoLOG) 100 UNIT/ML VIAL SQ SCH ×4 (06:53→21:26)
[2021-10-14] MEDS: BENZOCAINE/MENTHOL LOZENG 1 EACH LOZENGE MUCOUS MEM PRN ×2 (07:02→13:36)
[2021-10-14] MEDS: BUDESONIDE 1 MG/2 ML NEBU INHALATION SCH ×2 (07:57→20:17)
[2021-10-14] MEDS: FORMOTEROL FUMARATE 20 MCG/2 ML NEBU INHALATION SCH ×2 (07:57→20:17)
[2021-10-14] MEDS: IPRATROPIUM-ALBUTEROL 3 ML NEB INHALATION SCH ×4 (07:57→20:17)
[2021-10-14] MEDS: METOPROLOL TARTRATE 25 MG TAB PO SCH ×2 (09:00→21:25)
[2021-10-14] MEDS: CYANOCOBALAMIN 500 MCG TAB PO SCH (09:04)
[2021-10-14] MEDS: MULTIVITAMINS, THERA 1 EACH TAB PO SCH (09:04)
[2021-10-14] MEDS: FOLIC ACID 1 MG TAB PO SCH (09:04)
[2021-10-14] MEDS: LOSARTAN 50 MG TAB PO SCH (09:04)
[2021-10-14] MEDS: PANTOPRAZOLE 40 MG TABLET PO SCH (09:04)
[2021-10-14] MEDS: guaiFENesin-Coden 100-10MG/5ML 10 ML CUP PO PRN ×3 (09:05→21:25)
[2021-10-14] MEDS: SODIUM CHLORIDE 0.9% 1,000 ML IV SCH (10:39)
[2021-10-14 11:36] LABS: Glucose,Whole Blood 118 mg/dL (75-99)
--- NOTE | 2021-10-14 11:40 | P.PN ---
Subjective Progress Note Date: 10/14/21 Principal diagnosis: Respiratory failure. Acute hypoxic respiratory failure secondary to acute asthma exacerbation and RSV tracheobronchitis. Visit pleasant 80-year-old gentleman who follows with Dr. Zimmerman is his primary care provider. He has a history of atrial fibrillation anticoagulated with Xarelto, DVT, hearing disorder, mild intermittent chronic bronchial asthma, nons moker. He had been seen by Dr. Palafox in the past for shortness of breath that he felt was secondary to a large hiatal hernia and the patient did undergo subsequent surgical repair. He was last seen in 2017. Presented to the emergency room yesterday from his PCPs office after being found to have O2 saturation in low 80s. He was positive for RSV. Negative for cho virus. He had initially been given antibiotics and steroids and only took them for 1 day without much improvement. While in the emergency room he was placed on BiPAP 16/7 and 100% FiO2. Blood gases revealed a PaO2 of 72, pCO2 of 40 and a pH of 7.39. He also was having issues with acute bronchospasm and he was admitted to the intensive care unit. He is seen today in consultation. He is currently sitting up in bed. Awake and alert. He does have a harsh nonproductive cough. He is off the BiPAP and requiring 15 L high flow nasal cannula. His x-ray revealed patchy bilateral infiltrates. White count 9.9. Hemoglobin 15.4. Lymphocyte 0.5. Sodium 135. Potassium 3.9. Bicarb 22. Creatinine 1.13. Glucose 179. Pro-calcitonin 0.07. His continued on DuoNeb inhalations, Pulmicort inhalations, IV Solu-Medrol. Antibiotics in the form of ceftriaxone and azithromycin. Reevaluated today on 10/09/21, patient remains in the ICU, continues to have intermittent episodes of cough, wheezing, shortness of breath. Patient is on high flow oxygen, 70% FiO2 and 60 L flow using airvo, and his O2 saturation is 94-96%. Follow-up chest x-ray this morning showed minimal atelectasis at the bases especially at the left base, doubt infiltrate. Labs were reviewed. These were all done yesterday. Patient was reevaluated today on 10/10/2021, remains in the ICU, feeling much better, breathing a lot easier, nonetheless continues to have intermittent episodes of cough. His O2 saturation is 94%, however the patient remains on relatively high flow oxygen, he is on airvo at 55% and 55 L flow. Clinically the patient is feeling better, and breathing a lot easier. Her cheko on multiple bronchodilators and and steroids. No labs were done today. Progress note dated 10/11/2021. 80-year-old male, who was admitted on October 07, into the intensive care unit for respiratory failure. The patient was discovered to have respiratory syncytial virus infection, with hypoxemic respiratory failure. Currently, the patient is on AIRVO, at 55 L/m with an FiO2 of 55%. The patient is not receiving any IV fluids. The patient is on broad-spectrum antibiotics. I did ask the nurse to repeat a pro-calcitonin level. So far, microbiology is negative. Clinically, he is very short of breath with any activity. He is about the same today as he was yesterday, he tells me. White count 15.4, hemoglobin 14.7, hematocrit 45.6, and platelet count 207,000. Sodium 136, potassium 4.6, chlorides 106, CO2 26, anion gap 4, BUN 31, and creatinine 0.95. Chest x-ray shows cardiomegaly, with patch bilateral infiltrates. Progress note dated 10/12/2021. This is a 80-year-old gentleman who's been now in the hospital for 5 days. He was admitted back on October 07, into the intensive care unit, for respiratory failure. The patient was positive for RSV infection, with hypoxemic respiratory failure, and asthma exacerbation. The patient remains on AIRVO at 50 L/m and 55%. This is essentially what he was on yesterday. The patient is still very short of breath. White count 16, hemoglobin 15.5, hematocrit 48, platelet count 225,000. Sodium 137, potassium 5, chlorides 105, CO2 29, anion gap 3, BUN 37, and creatinine 0.92. The patient's chest x-ray shows bilateral infiltrates, and is essentially unchanged. Progress note dated 10/13/2021. 80-year-old male is been the hospital now for 6 days. He was admitted back on October 07. Into the ICU, for respiratory failure secondary to RSV infection and asthma exacerbation. Currently, unfortunately, he remains on AIRVO, at 50 L/m and an FiO2 of 50%. He's quite short of breath with any activity. He feels like he is really not improving, but also not getting any worse. White count 14.9, with a normal hemoglobin, hematocrit, and platelet count. Sodium 134, potassium 4.6, chlorides 105, CO2 25, anion gap 4, BUN 38, and creatinine 1. Chest x-ray shows some improvement in the patient's lung aeration. Progress note dated 10/14/2021. 80-year-old male, seen again in room 258. The patient has been in the hospital now for 7 days. He was admitted with a diagnosis of asthma exacerbation, she was likely triggered by a respiratory syncytial virus. Currently, the patient has been weaned down to 15 L high flow nasal O2. Yesterday, he was on AIRVO. He feels like he is improving. His chest x-ray does show improvement in aeration. No new labs today. Objective - Vital Signs Vital signs: Vital Signs Temp 98.4 F 10/14/21 08:00 Pulse 77 10/14/21 10:00 Resp 11 L 10/14/21 10:00 BP 120/81 10/14/21 10:00 Pulse Ox 90 L 10/14/21 10:00 Intake & Output 10/13/21 10/14/21 10/14/21 18:59 06:59 18:59 Intake Total 960 250 Output Total 400 1300 200 Balance 560 -1300 50 Weight 111.1 kg Intake: Oral 960 250 Output: Urine 400 1300 200 Other: Voiding Method Urinal Urinal # Voids 1 1 - Exam Oriented 3, mild conversational dyspnea. Saturations are 90% on a 15 L high flow nasal cannula. HEENT examination is grossly unremarkable. Neck supple. Full range of motion. No adenopathy thyromegaly or neck vein distention. Cardiovascular examination reveals regular rhythm rate. S1-S2 normal. No S3 or S4. No discernible murmur noted. Heart sounds are distant. Heart rate 77 bpm. Lungs reveal diffuse bilateral rhonchi. Bibasilar crackles are noted. There are no wheezes. Breath sounds are a bit improved. Abdomen soft bowel sounds are heard. No masses or tenderness. Extremities are intact. No cyanosis clubbing or edema. Skin is without rash or lesion. Neurologic examination is brief but nonfocal. - Labs CBC & Chem 7: 10/13/21 03:19 10/13/21 03:19 Labs: Abnormal Lab Results - Last 24 Hours (Table) 10/13/21 10/13/21 10/13/21 Range/Units 11:38 16:50 21:21 POC Glucose (mg/dL) 150 H 116 H 150 H (75-99) mg/dL 10/14/21 10/14/21 Range/Units 06:43 11:34 POC Glucose (mg/dL) 109 H 118 H (75-99) mg/dL Microbiology - Last 24 Hours (Table) 10/07/21 16:15 Blood Culture - Final Blood No Growth after 144 hours Assessment and Plan Assessment: Acute hypoxemic respiratory failure secondary to acute asthma exacerbation, triggered by respiratory syncytial virus tracheobronchitis. History of mild intermittent asthma. Paroxysmal atrial fibrillation. History of DVT. Lifelong nontobacco use. Plan: Plan dated 10/11/2021. The patient remains on bronchodilators, as well as oxygen, empiric antibiotics, GI prophylaxis, and Solu-Medrol. The patient also continues on his factor X a inhibitor. We will repeat a pro-calcitonin level. If it is normal, we will discontinue empiric antibiotics. Additional recommendations suggestions are forthcoming. Prognosis is guarded. The patient remains on AIRVO, at 55 L/m with an FiO2 of 55%. X-ray and labs are ordered for the morning. We will continue to follow make recommendations where appropriate. Plan dated 10/12/2021. Currently, the patient's about the same as he was yesterday. He remains on updrafts, as well as both Pulmicort, and Robitussin. The patient is also on Singulair, and corticosteroids. The patient's pro-calcitonin level was normal, and hence, the patient's antibiotics were discontinued. The patient is encouraged to deep breathe, cough, and clear any secretions. We will continue to follow. We added Perforomist to his regimen. Plan dated 10/13/2021. The patient remains on AIRVO, at 50 L/m with an FiO2 of 50%. He is not getting any IV fluids. His antibiotics were discontinued, because his pro-calcitonin level was normal. The patient is encouraged to take deep breaths, cough, and clear secretions. We also recommend him using the incentive spirometer. The patient is on Pulmicort and Perforomist. He remains on updrafts. We will continue to follow make recommendations where appropriate. He has not really improved clinically over the last 2 or 3 days. Radiographically, there may be some improvement. Plan dated 10/14/2021. The patient has been weaned from AIRVO, down to 15 L high flow nasal cannula. Saturations are right around 90%. Clinically, the patient looks better, and his chest x-ray my opinion is improved. We encourage the hourly use of incentive spirometer, as well as deep breathing, coughing, and clearing of secretions. We will continue to follow. The patient is not stable enough to leave the intensive care unit this time. Additional recommendations and suggestions are forthcoming. Time with Patient: Less than 30
[2021-10-14 16:28] LABS: Glucose,Whole Blood 164 mg/dL (75-99)
[2021-10-14 20:01] LABS: Glucose,Whole Blood 150 mg/dL (75-99)
[2021-10-14] MEDS: RIVAROXABAN 20 MG TAB PO SCH (21:25)
[2021-10-14] MEDS: MONTELUKAST 10 MG TAB PO SCH (21:25)
[2021-10-14] MEDS: TAMSULOSIN 0.4 MG CAP.ER.24H PO SCH (21:25)
[2021-10-14] MEDS ORDERED: guaiFENesin SYRUP 100MG/5ML 200 MG/10 ML CUP PO PRN (21:41)
--- NOTE | 2021-10-14 21:43 | P.PN ---
Subjective This is a pleasant 80 years old male with past medical history of hypertension, paroxysmal atrial fibrillation on Xarelto, benign prostatic hypertrophy, hiatal hernia, hereditary factor VIII deficiency, hyperlipidemia. Patient remains in the ICU monitored closely. He did have good sleep last night however he felt some Mason the center of his chest but he denies any specific chest pain. Coughing a lot and he was to cuff is still followed therefore we will add Robitussin. Patient remains quite hypoxic needing 15 L/m of oxygen. He has mild leukocytosis secondary to steroid effect He remains on Solu-Medrol and Xarelto. Objective - Vital Signs Vital signs: Vital Signs Temp 98.4 F 10/14/21 08:00 Pulse 77 10/14/21 10:00 Resp 11 L 10/14/21 10:00 BP 120/81 10/14/21 10:00 Pulse Ox 90 L 10/14/21 10:00 Intake & Output 10/13/21 10/14/21 10/14/21 18:59 06:59 18:59 Intake Total 960 250 Output Total 400 1300 200 Balance 560 -1300 50 Weight 111.1 kg Intake: Oral 960 250 Output: Urine 400 1300 200 Other: Voiding Method Urinal Urinal # Voids 1 1 - Exam GENERAL: The patient is alert and oriented x3, not in any acute distress. Well developed, well nourished. HEENT: Pupils are round and equally reacting to light. EOMI. No scleral icterus. No conjunctival pallor. Normocephalic, atraumatic. No pharyngeal erythema. No thyromegaly. CARDIOVASCULAR: S1 and S2 present. No murmurs, rubs, or gallops. -PULMONARY: Chest is clear to auscultation, cathetered bilateral wheezing ABDOMEN: Soft, nontender, nondistended, normoactive bowel sounds. No palpable organomegaly. MUSCULOSKELETAL: No joint swelling or deformity. EXTREMITIES: No cyanosis, clubbing, or pedal edema. NEUROLOGICAL: Gross neurological examination did not reveal any focal deficits. SKIN: No rashes. no petechiae. - Labs CBC & Chem 7: 10/13/21 03:19 10/13/21 03:19 Labs: Abnormal Lab Results - Last 24 Hours (Table) 10/13/21 10/13/21 10/13/21 Range/Units 11:38 16:50 21:21 POC Glucose (mg/dL) 150 H 116 H 150 H (75-99) mg/dL 10/14/21 Range/Units 06:43 POC Glucose (mg/dL) 109 H (75-99) mg/dL Microbiology - Last 24 Hours (Table) 10/07/21 16:15 Blood Culture - Final Blood No Growth after 144 hours Assessment and Plan Assessment: Acute asthma exacerbation RSV virus infection of the respiratory's airway Hypertension Paroxysmal atrial fibrillation on Xarelto History of benign prostatic hypertrophy History of hiatal hernia Hereditary factor VIII deficiency Hyperlipidemia Plan: This is a pleasant 80 years old male who presents with asthma Continue with Solu-Medrol Continue with oxygen as needed Labs and medication were reviewed.. Continue same treatment. Continue with symptomatic treatment. Resume home medication. Monitor lytes and vitals. DVT and GI prophylaxis. Further recommendations as per clinical course of the patient DVT prophylaxis: Xarelto GI Prophylaxis: Ppi Prognosis is guarded
[2021-10-14] MEDS: guaiFENesin SYRUP 100MG/5ML 200 MG/10 ML CUP PO SCH (23:46)
[2021-10-15] MEDS: methylPREDNISolone SOD SUCCI 125 MG/2 ML VIAL IV SCH ×5 (00:32→23:33)
[2021-10-15 05:53] LABS: Basophils # (A) 0.1 k/uL (0-0.2); Basophils % (A) 0 %; Eosinophils % (A) 0 %; HCT 48.7 % (39.0-53.0); HGB 15.8 gm/dL (13.0-17.5); Lymphocytes # (A) 0.4 k/uL (1.0-4.8); Lymphocytes % (A) 2 %; MCHC 32.5 g/dL (31.0-37.0); MCV 95.3 fL (80.0-100.0); Mean Platelet Volume 7.5; Monocytes # (A) 0.6 k/uL (0-1.0); Monocytes % (A) 4 %; Neutrophils # (A) 16.9 k/uL (1.3-7.7); Neutrophils % (A) 94 %; Platelet Count 243 k/uL (150-450); RBC 5.11 m/uL (4.30-5.90); WBC 18.1 k/uL (3.8-10.6)
[2021-10-15 06:09] LABS: Calcium 8.3 mg/dL (8.4-10.2); Potassium 4.6 mmol/L (3.5-5.1)
[2021-10-15] MEDS: INSULIN ASPART (NovoLOG) 100 UNIT/ML VIAL SQ SCH ×4 (06:32→21:30)
[2021-10-15] MEDS: PANTOPRAZOLE 40 MG TABLET PO SCH (06:37)
[2021-10-15] MEDS: BUDESONIDE 1 MG/2 ML NEBU INHALATION SCH ×2 (07:59→19:41)
[2021-10-15] MEDS: FORMOTEROL FUMARATE 20 MCG/2 ML NEBU INHALATION SCH ×2 (07:59→19:41)
[2021-10-15] MEDS: IPRATROPIUM-ALBUTEROL 3 ML NEB INHALATION SCH ×4 (07:59→19:41)
[2021-10-15] MEDS: guaiFENesin SYRUP 100MG/5ML 200 MG/10 ML CUP PO SCH ×3 (08:45→21:28)
[2021-10-15] MEDS: MULTIVITAMINS, THERA 1 EACH TAB PO SCH (08:45)
[2021-10-15] MEDS: CYANOCOBALAMIN 500 MCG TAB PO SCH (08:45)
[2021-10-15] MEDS: FOLIC ACID 1 MG TAB PO SCH (08:45)
[2021-10-15] MEDS: METOPROLOL TARTRATE 25 MG TAB PO SCH ×2 (08:46→21:31)
[2021-10-15] MEDS: LOSARTAN 50 MG TAB PO SCH (08:46)
[2021-10-15 11:48] LABS: Glucose,Whole Blood 113 mg/dL (75-99)
--- NOTE | 2021-10-15 15:15 | P.PN ---
Subjective Progress Note Date: 10/15/21 Principal diagnosis: Respiratory failure. Acute hypoxic respiratory failure secondary to acute asthma exacerbation and RSV tracheobronchitis. Visit pleasant 80-year-old gentleman who follows with Dr. Zimmerman is his primary care provider. He has a history of atrial fibrillation anticoagulated with Xarelto, DVT, hearing disorder, mild intermittent chronic bronchial asthma, nons moker. He had been seen by Dr. Palafox in the past for shortness of breath that he felt was secondary to a large hiatal hernia and the patient did undergo subsequent surgical repair. He was last seen in 2017. Presented to the emergency room yesterday from his PCPs office after being found to have O2 saturation in low 80s. He was positive for RSV. Negative for cho virus. He had initially been given antibiotics and steroids and only took them for 1 day without much improvement. While in the emergency room he was placed on BiPAP 16/7 and 100% FiO2. Blood gases revealed a PaO2 of 72, pCO2 of 40 and a pH of 7.39. He also was having issues with acute bronchospasm and he was admitted to the intensive care unit. He is seen today in consultation. He is currently sitting up in bed. Awake and alert. He does have a harsh nonproductive cough. He is off the BiPAP and requiring 15 L high flow nasal cannula. His x-ray revealed patchy bilateral infiltrates. White count 9.9. Hemoglobin 15.4. Lymphocyte 0.5. Sodium 135. Potassium 3.9. Bicarb 22. Creatinine 1.13. Glucose 179. Pro-calcitonin 0.07. His continued on DuoNeb inhalations, Pulmicort inhalations, IV Solu-Medrol. Antibiotics in the form of ceftriaxone and azithromycin. Reevaluated today on 10/09/21, patient remains in the ICU, continues to have intermittent episodes of cough, wheezing, shortness of breath. Patient is on high flow oxygen, 70% FiO2 and 60 L flow using airvo, and his O2 saturation is 94-96%. Follow-up chest x-ray this morning showed minimal atelectasis at the bases especially at the left base, doubt infiltrate. Labs were reviewed. These were all done yesterday. Patient was reevaluated today on 10/10/2021, remains in the ICU, feeling much better, breathing a lot easier, nonetheless continues to have intermittent episodes of cough. His O2 saturation is 94%, however the patient remains on relatively high flow oxygen, he is on airvo at 55% and 55 L flow. Clinically the patient is feeling better, and breathing a lot easier. Her cheko on multiple bronchodilators and and steroids. No labs were done today. Progress note dated 10/11/2021. 80-year-old male, who was admitted on October 07, into the intensive care unit for respiratory failure. The patient was discovered to have respiratory syncytial virus infection, with hypoxemic respiratory failure. Currently, the patient is on AIRVO, at 55 L/m with an FiO2 of 55%. The patient is not receiving any IV fluids. The patient is on broad-spectrum antibiotics. I did ask the nurse to repeat a pro-calcitonin level. So far, microbiology is negative. Clinically, he is very short of breath with any activity. He is about the same today as he was yesterday, he tells me. White count 15.4, hemoglobin 14.7, hematocrit 45.6, and platelet count 207,000. Sodium 136, potassium 4.6, chlorides 106, CO2 26, anion gap 4, BUN 31, and creatinine 0.95. Chest x-ray shows cardiomegaly, with patch bilateral infiltrates. Progress note dated 10/12/2021. This is a 80-year-old gentleman who's been now in the hospital for 5 days. He was admitted back on October 07, into the intensive care unit, for respiratory failure. The patient was positive for RSV infection, with hypoxemic respiratory failure, and asthma exacerbation. The patient remains on AIRVO at 50 L/m and 55%. This is essentially what he was on yesterday. The patient is still very short of breath. White count 16, hemoglobin 15.5, hematocrit 48, platelet count 225,000. Sodium 137, potassium 5, chlorides 105, CO2 29, anion gap 3, BUN 37, and creatinine 0.92. The patient's chest x-ray shows bilateral infiltrates, and is essentially unchanged. Progress note dated 10/13/2021. 80-year-old male is been the hospital now for 6 days. He was admitted back on October 07. Into the ICU, for respiratory failure secondary to RSV infection and asthma exacerbation. Currently, unfortunately, he remains on AIRVO, at 50 L/m and an FiO2 of 50%. He's quite short of breath with any activity. He feels like he is really not improving, but also not getting any worse. White count 14.9, with a normal hemoglobin, hematocrit, and platelet count. Sodium 134, potassium 4.6, chlorides 105, CO2 25, anion gap 4, BUN 38, and creatinine 1. Chest x-ray shows some improvement in the patient's lung aeration. Progress note dated 10/14/2021. 80-year-old male, seen again in room 258. The patient has been in the hospital now for 7 days. He was admitted with a diagnosis of asthma exacerbation, she was likely triggered by a respiratory syncytial virus. Currently, the patient has been weaned down to 15 L high flow nasal O2. Yesterday, he was on AIRVO. He feels like he is improving. His chest x-ray does show improvement in aeration. No new labs today. Progress note dated 10/15/2021. 80-year-old male, again seen in room 258. The patient is been the hospital now for 8 days. He was admitted with a diagnosis of viral pneumonia, secondary to RSV, and asthma exacerbation. The patient is currently not on any IV fluids. He is also on 15 L high flow nasal cannula. Clinically, he looks better. His breathing is better, but his oxygen requirements are still quite high. White count 18.1, hemoglobin, hematocrit, and platelet count are all normal. Sodium 137, potassium 4.6, chlorides 107, CO2 24, anion gap 6, BUN 39, creatinine 0.98. No chest x-ray from today as yet. The patient will have a chest x-ray tomorrow. Objective - Vital Signs Vital signs: Vital Signs Temp 98.3 F 10/15/21 04:00 Pulse 60 10/15/21 15:00 Resp 18 10/15/21 15:00 BP 134/87 10/15/21 15:00 Pulse Ox 94 L 10/15/21 15:00 Intake & Output 10/14/21 10/15/21 10/15/21 18:59 06:59 18:59 Intake Total 1200 500 840 Output Total 800 750 200 Balance 400 -250 640 Intake: Oral 1200 500 840 Output: Urine 800 750 200 Other: Voiding Method Urinal Urinal Urinal # Voids 1 - Exam Oriented 3, mild conversational dyspnea. Saturations are 94 % on a 15 L high flow nasal cannula. HEENT examination is grossly unremarkable. Neck supple. Full range of motion. No adenopathy thyromegaly or neck vein distention. Cardiovascular examination reveals regular rhythm rate. S1-S2 normal. No S3 or S4. No discernible murmur noted. Heart sounds are distant. Heart rate 60 bpm. Lungs reveal diffuse bilateral rhonchi. Bibasilar crackles are noted. There are no wheezes. Breath sounds are a bit improved. Abdomen soft bowel sounds are heard. No masses or tenderness. Extremities are intact. No cyanosis clubbing or edema. Skin is without rash or lesion. Neurologic examination is brief but nonfocal. - Labs CBC & Chem 7: 10/15/21 05:18 10/15/21 05:15 Labs: Abnormal Lab Results - Last 24 Hours (Table) 10/14/21 10/14/21 10/15/21 Range/Units 16:26 19:59 05:15 WBC (3.8-10.6) k/uL Neutrophils # (1.3-7.7) k/uL Lymphocytes # (1.0-4.8) k/uL BUN 39 H (9-20) mg/dL Glucose 125 H (74-99) mg/dL POC Glucose (mg/dL) 164 H 150 H (75-99) mg/dL Calcium 8.3 L (8.4-10.2) mg/dL 10/15/21 10/15/21 Range/Units 05:18 11:47 WBC 18.1 H (3.8-10.6) k/uL Neutrophils # 16.9 H (1.3-7.7) k/uL Lymphocytes # 0.4 L (1.0-4.8) k/uL BUN (9-20) mg/dL Glucose (74-99) mg/dL POC Glucose (mg/dL) 113 H (75-99) mg/dL Calcium (8.4-10.2) mg/dL Assessment and Plan Assessment: Acute hypoxemic respiratory failure secondary to acute asthma exacerbation, triggered by respiratory syncytial virus tracheobronchitis. History of mild intermittent asthma. Paroxysmal atrial fibrillation. History of DVT. Lifelong nontobacco use. Plan: Plan dated 10/11/2021. The patient remains on bronchodilators, as well as oxygen, empiric antibiotics, GI prophylaxis, and Solu-Medrol. The patient also continues on his factor X a inhibitor. We will repeat a pro-calcitonin level. If it is normal, we will discontinue empiric antibiotics. Additional recommendations suggestions are fo rthcoming. Prognosis is guarded. The patient remains on AIRVO, at 55 L/m with an FiO2 of 55%. X-ray and labs are ordered for the morning. We will continue to follow make recommendations where appropriate. Plan dated 10/12/2021. Currently, the patient's about the same as he was yesterday. He remains on updrafts, as well as both Pulmicort, and Robitussin. The patient is also on Singulair, and corticosteroids. The patient's pro-calcitonin level was normal, and hence, the patient's antibiotics were discontinued. The patient is encouraged to deep breathe, cough, and clear any secretions. We will continue to follow. We added Perforomist to his regimen. Plan dated 10/13/2021. The patient remains on AIRVO, at 50 L/m with an FiO2 of 50%. He is not getting any IV fluids. His antibiotics were discontinued, because his pro-calcitonin level was normal. The patient is encouraged to take deep breaths, cough, and clear secretions. We also recommend him using the incentive spirometer. The patient is on Pulmicort and Perforomist. He remains on updrafts. We will continue to follow make recommendations where appropriate. He has not really improved clinically over the last 2 or 3 days. Radiographically, there may be some improvement. Plan dated 10/14/2021. The patient has been weaned from AIRVO, down to 15 L high flow nasal cannula. Saturations are right around 90%. Clinically, the patient looks better, and his chest x-ray my opinion is improved. We encourage the hourly use of incentive spirometer, as well as deep breathing, coughing, and clearing of secretions. We will continue to follow. The patient is not stable enough to leave the intensive care unit this time. Additional recommendations and suggestions are forthcoming. Plan dated 10/15/2021. The patient remains on 15 L high flow nasal cannula. This is an improvement, from the AIRVO that he was previously on. The patient's chest x-ray does show improvement. Clinically the patient feels better. The patient is anxious to be discharged from the hospital, but has to be on 5 L or less of oxygen. In addition, we will like to see her saturations to be above 90%. Additional recommendations and suggestions are forthcoming. We will continue to follow. Prognosis is guarded. Time with Patient: Less than 30
[2021-10-15] MEDS: SODIUM CHLORIDE 0.9% 1,000 ML IV SCH (16:39)
[2021-10-15 16:51] LABS: Glucose,Whole Blood 139 mg/dL (75-99)
--- NOTE | 2021-10-15 19:23 | P.PN ---
Subjective This is a pleasant 80 years old male with past medical history of hypertension, paroxysmal atrial fibrillation on Xarelto, benign prostatic hypertrophy, hiatal hernia, hereditary factor VIII deficiency, hyperlipidemia. Patient remains in the ICU monitored closely. He did have good sleep last night however he felt some [place] the center of his chest but he denies any specific chest pain. Coughing a lot and he was to cuff is still followed therefore we will add Robitussin. Patient remains quite hypoxic needing 15 L/m of oxygen. He has mild leukocytosis secondary to steroid effect He remains on Solu-Medrol and Xarelto. 10/15/2021 Patient showed gradual improvement from air were down to 15 L. However since yesterday's normal change his still on 15 L/m of oxygen. At rest he does not complain from dyspnea, actually he states he feels little better today. However patient does not move around. Cough and is better no other complaints. Other vitals are stable. Labs are unremarkable. Patient kept on the same treatment of 15 mL per hour. Objective - Vital Signs Vital signs: Vital Signs Temp 98.3 F 10/15/21 04:00 Pulse 75 10/15/21 10:00 Resp 16 10/15/21 10:00 BP 140/74 10/15/21 10:00 Pulse Ox 89 L 10/15/21 10:00 Intake & Output 10/14/21 10/15/21 10/15/21 18:59 06:59 18:59 Intake Total 1200 500 360 Output Total 800 750 0 Balance 400 -250 360 Intake: Oral 1200 500 360 Output: Urine 800 750 0 Other: Voiding Method Urinal Urinal Urinal # Voids 1 - Exam GENERAL: The patient is alert and oriented x3, not in any acute distress. Well developed, well nourished. HEENT: Pupils are round and equally reacting to light. EOMI. No scleral icterus. No conjunctival pallor. Normocephalic, atraumatic. No pharyngeal erythema. No thyromegaly. CARDIOVASCULAR: S1 and S2 present. No murmurs, rubs, or gallops. -PULMONARY: Chest is clear to auscultation, cathetered bilateral wheezing ABDOMEN: Soft, nontender, nondistended, normoactive bowel sounds. No palpable o rganomegaly. MUSCULOSKELETAL: No joint swelling or deformity. EXTREMITIES: No cyanosis, clubbing, or pedal edema. NEUROLOGICAL: Gross neurological examination did not reveal any focal deficits. SKIN: No rashes. no petechiae. - Labs CBC & Chem 7: 10/15/21 05:18 10/15/21 05:15 Labs: Abnormal Lab Results - Last 24 Hours (Table) 10/14/21 10/14/21 10/15/21 Range/Units 16:26 19:59 05:15 WBC (3.8-10.6) k/uL Neutrophils # (1.3-7.7) k/uL Lymphocytes # (1.0-4.8) k/uL BUN 39 H (9-20) mg/dL Glucose 125 H (74-99) mg/dL POC Glucose (mg/dL) 164 H 150 H (75-99) mg/dL Calcium 8.3 L (8.4-10.2) mg/dL 10/15/21 10/15/21 Range/Units 05:18 11:47 WBC 18.1 H (3.8-10.6) k/uL Neutrophils # 16.9 H (1.3-7.7) k/uL Lymphocytes # 0.4 L (1.0-4.8) k/uL BUN (9-20) mg/dL Glucose (74-99) mg/dL POC Glucose (mg/dL) 113 H (75-99) mg/dL Calcium (8.4-10.2) mg/dL Assessment and Plan Assessment: Acute asthma exacerbation RSV virus infection of the respiratory's airway Hypertension Paroxysmal atrial fibrillation on Xarelto History of benign prostatic hypertrophy History of hiatal hernia Hereditary factor VIII deficiency Hyperlipidemia Plan: This is a pleasant 80 years old male who presents with asthma Continue with Solu-Medrol Continue with oxygen as needed Labs and medication were reviewed.. Continue same treatment. Continue with symptomatic treatment. Resume home medication. Monitor lytes and vitals. DVT and GI prophylaxis. Further recommendations as per clinical course of the patient DVT prophylaxis: Xarelto GI Prophylaxis: Ppi Prognosis is guarded
[2021-10-15 21:29] LABS: Glucose,Whole Blood 186 mg/dL (75-99)
[2021-10-15] MEDS: TAMSULOSIN 0.4 MG CAP.ER.24H PO SCH (21:31)
[2021-10-15] MEDS: MONTELUKAST 10 MG TAB PO SCH (21:31)
[2021-10-15] MEDS: RIVAROXABAN 20 MG TAB PO SCH (21:31)
[2021-10-16] MEDS: methylPREDNISolone SOD SUCCI 125 MG/2 ML VIAL IV SCH ×4 (05:27→23:37)
[2021-10-16 06:45] LABS: Glucose,Whole Blood 121 mg/dL (75-99)
[2021-10-16] MEDS: PANTOPRAZOLE 40 MG TABLET PO SCH (06:45)
[2021-10-16] MEDS: INSULIN ASPART (NovoLOG) 100 UNIT/ML VIAL SQ SCH ×4 (06:45→20:30)
--- NOTE | 2021-10-16 07:43 | XR ---
EXAMINATION TYPE: XR chest 1V portable DATE OF EXAM: 10/16/2021 CLINICAL HISTORY: Difficulty breathing and RSV progress study. TECHNIQUE: Single AP portable upright view of the chest is obtained. COMPARISON: Chest x-ray from 3 days earlier and older studies. FINDINGS: Cardiomegaly with ectatic thoracic aorta causing right-sided tracheal deviation redemonstr ated. Chronic parenchymal changes with worsening left greater than right bibasilar opacities. Osseous structures are intact. IMPRESSION: Chronic parenchymal changes and cardiomegaly with worsening left greater than right bibas ilar acute infiltrates and/or atelectasis.
[2021-10-16] MEDS: IPRATROPIUM-ALBUTEROL 3 ML NEB INHALATION SCH ×4 (08:13→20:36)
[2021-10-16] MEDS: FORMOTEROL FUMARATE 20 MCG/2 ML NEBU INHALATION SCH (08:13)
[2021-10-16] MEDS: BUDESONIDE 1 MG/2 ML NEBU INHALATION SCH (08:13)
[2021-10-16] MEDS: guaiFENesin SYRUP 100MG/5ML 200 MG/10 ML CUP PO SCH ×3 (09:35→22:00)
[2021-10-16] MEDS: CYANOCOBALAMIN 500 MCG TAB PO SCH (09:35)
[2021-10-16] MEDS: METOPROLOL TARTRATE 25 MG TAB PO SCH ×2 (09:35→20:29)
[2021-10-16] MEDS: MULTIVITAMINS, THERA 1 EACH TAB PO SCH (09:35)
[2021-10-16] MEDS: FOLIC ACID 1 MG TAB PO SCH (09:35)
[2021-10-16] MEDS: LOSARTAN 50 MG TAB PO SCH (09:35)
[2021-10-16] MEDS ORDERED: SODIUM CHLORIDE 0.65% NASAL SPRAY 44 ML BTL NASAL PRN (09:52)
[2021-10-16 11:16] LABS: Glucose,Whole Blood 150 mg/dL (75-99)
--- NOTE | 2021-10-16 12:41 | P.PN ---
Subjective Progress Note Date: 10/16/21 Principal diagnosis: Acute hypoxic respiratory failure On 10/16/2021 patient seen in follow-up in the intensive care unit, he is still coughing, still requiring high flow oxygen, although she feels that this admission overall she is improved. He is currently on 15 L per regular high flow nasal cannula his pulse ox is 90-92%.'s been afebrile, hemodynamically has been stable, he is not on any IV fluids. His chest x-ray today shows chronic bronchial changes and cardiomegaly with worsening left greater than right bibasilar acute infiltrates and/or atelectasis. His labs from yesterday revealed a white blood cell count of 18.1, increased from the previous value a few days ago possibly due to IV steroids. Hemoglobin was stable at 15.8, electrolytes were within normal limits, B1 is 39 creatinine 0.98. Patient was again retested for COVID-19 related to his persistent coughing with a rapid test and was again found to be negative. He remains on IV steroids with Solu-Medrol 60 mg every 6 hours. Patient has been tested with levels of 0.07 and 0.03 not indicative of underlying bacterial infection. Cultures have shown no growth. He states his cough is dry, irritated, lung sounds did not reveal any wheezing, there is some diminished breath sounds with some scattered crackles, no chest pain, no phlegm production. Patient has been getting Tessalon [facility] in [facility] to Robitussin cough syrup 200 mg 3 times daily. Objective - Vital Signs Vital signs: Vital Signs Temp 97.7 F 10/15/21 20:00 Pulse 78 10/16/21 11:36 Resp 18 10/16/21 11:00 BP 137/84 10/16/21 11:00 Pulse Ox 90 L 10/16/21 11:00 Intake & Output 10/15/21 10/16/21 10/16/21 18:59 06:59 18:59 Intake Total 1560 360 Output Total 800 550 350 Balance 760 -550 10 Weight 113.1 kg Intake: Oral 1560 360 Output: Urine 800 550 350 Other: Voiding Method Urinal Urinal Urinal # Voids 1 1 1 - Exam GENERAL EXAM: Alert, pleasant, 80-year-old obese white male, currently on 15 L of oxygen pulse ox is 90-92% comfortable in no apparent distress. HEAD: Normocephalic/atraumatic. EYES: Normal reaction of pupils, equal size. Conjunctiva pink, sclera white. NOSE: Clear with pink turbinates. THROAT: No erythema or exudates. NECK: No masses, no JVD, no thyroid enlargement, no adenopathy. CHEST: No chest wall deformity. Symmetrical expansion. LUNGS: Equal air entry with diffuse crackles, no rhonchi or wheezing CVS: Regular rate and rhythm, normal S1 and S2, no gallops, no murmurs, no rubs ABDOMEN: Soft, nontender. No hepatosplenomegaly, normal bowel sounds, no guarding or rigidity. EXTREMITIES: No clubbing, mild pretibial edema, chronic venous stasis changes present in bilateral lower extremities no cyanosis, 2+ pulses and upper and lower extremities. MUSCULOSKELETAL: Muscle strength and tone normal. SPINE: No scoliosis or deformity SKIN: No rashes CENTRAL NERVOUS SYSTEM: Alert and oriented -3. No focal deficits, tone is normal in all 4 extremities. PSYCHIATRIC: Alert and oriented -3. Appropriate affect. Intact judgment and insight. - Labs CBC & Chem 7: 10/15/21 05:18 10/15/21 05:15 Labs: Abnormal Lab Results - Last 24 Hours (Table) 10/15/21 10/15/21 10/16/21 Range/Units 16:49 21:27 06:40 POC Glucose (mg/dL) 139 H 186 H 121 H (75-99) mg/dL 10/16/21 Range/Units 11:15 POC Glucose (mg/dL) 150 H (75-99) mg/dL Assessment and Plan Plan: Assessment: #1. Acute hypoxic respiratory failure secondary to acute exacerbation of chronic bronchial asthma, unspecified, triggered by respiratory syncytial virus tracheobronchitis. Procalcitonin level was negative 2, COVID-19 PCR was negative 3 #2. Leukocytosis likely related to IV steroids #3. Paroxysmal atrial fibrillation on Xarelto #4. 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 Lifetime nonsmoker #6. Hearing disorder #7. Morbid obesity Plan: Continue IV steroids Continue cough syrup Wean FiO2 to maintain O2 saturations at 88% and above Blood cultures remain negative, probe calcitonin level is negative time 2, COVID-19 PCR negative 3 No acute events overnight Still does have a persistent cough but overall patient is slowly improving since admission Stop Pulmicort and perforomist, they maybe exacerbating the cough continue cough syrup and tessalon Stable for transfer out of intensive care unit today to regular medical surgical floor without telemetry I performed a history & physical examination of the patient and discussed their management with my nurse practitioner, Marcie Schwarz. I reviewed the nurse practitioner's note and agree with the documented findings and plan of care. Lung sounds are positive for diffuse crackles throughout the lung hall. The findings and the impression was discussed with the patient. I attest to the documentation by the nurse practitioner. Time with Patient: Less than 30
[2021-10-16 16:59] LABS: Glucose,Whole Blood 109 mg/dL (75-99)
[2021-10-16 20:21] LABS: Glucose,Whole Blood 134 mg/dL (75-99)
[2021-10-16] MEDS: MONTELUKAST 10 MG TAB PO SCH (20:29)
[2021-10-16] MEDS: TAMSULOSIN 0.4 MG CAP.ER.24H PO SCH (20:29)
[2021-10-16] MEDS: RIVAROXABAN 20 MG TAB PO SCH (20:30)
[2021-10-17] MEDS: methylPREDNISolone SOD SUCCI 125 MG/2 ML VIAL IV SCH ×4 (05:20→23:24)
[2021-10-17 07:02] LABS: Glucose,Whole Blood 125 mg/dL (75-99)
[2021-10-17] MEDS: INSULIN ASPART (NovoLOG) 100 UNIT/ML VIAL SQ SCH ×4 (07:24→21:21)
[2021-10-17] MEDS: BENZONATATE 100 MG CAP PO PRN (08:19)
[2021-10-17] MEDS: guaiFENesin SYRUP 100MG/5ML 200 MG/10 ML CUP PO SCH ×3 (08:19→21:36)
[2021-10-17] MEDS: FOLIC ACID 1 MG TAB PO SCH (08:19)
[2021-10-17] MEDS: CYANOCOBALAMIN 500 MCG TAB PO SCH (08:19)
[2021-10-17] MEDS: PANTOPRAZOLE 40 MG TABLET PO SCH (08:20)
[2021-10-17] MEDS: LOSARTAN 50 MG TAB PO SCH (08:20)
[2021-10-17] MEDS: METOPROLOL TARTRATE 25 MG TAB PO SCH ×2 (08:20→21:36)
[2021-10-17] MEDS: MULTIVITAMINS, THERA 1 EACH TAB PO SCH (08:20)
[2021-10-17] MEDS: IPRATROPIUM-ALBUTEROL 3 ML NEB INHALATION SCH ×4 (09:37→20:33)
[2021-10-17 11:36] LABS: Glucose,Whole Blood 108 mg/dL (75-99)
[2021-10-17 17:06] LABS: Glucose,Whole Blood 126 mg/dL (75-99)
--- NOTE | 2021-10-17 18:20 | P.PN ---
Subjective Progress Note Date: 10/17/21 Principal diagnosis: Respiratory failure. Acute hypoxic respiratory failure secondary to acute asthma exacerbation and RSV tracheobronchitis. Visit pleasant 80-year-old gentleman who follows with Dr. Zimmerman is his primary care provider. He has a history of atrial fibrillation anticoagulated with Xarelto, DVT, hearing disorder, mild intermittent chronic bronchial asthma, nons moker. He had been seen by Dr. Palafox in the past for shortness of breath that he felt was secondary to a large hiatal hernia and the patient did undergo subsequent surgical repair. He was last seen in 2017. Presented to the emergency room yesterday from his PCPs office after being found to have O2 saturation in low 80s. He was positive for RSV. Negative for cho virus. He had initially been given antibiotics and steroids and only took them for 1 day without much improvement. While in the emergency room he was placed on BiPAP 16/7 and 100% FiO2. Blood gases revealed a PaO2 of 72, pCO2 of 40 and a pH of 7.39. He also was having issues with acute bronchospasm and he was admitted to the intensive care unit. He is seen today in consultation. He is currently sitting up in bed. Awake and alert. He does have a harsh nonproductive cough. He is off the BiPAP and requiring 15 L high flow nasal cannula. His x-ray revealed patchy bilateral infiltrates. White count 9.9. Hemoglobin 15.4. Lymphocyte 0.5. Sodium 135. Potassium 3.9. Bicarb 22. Creatinine 1.13. Glucose 179. Pro-calcitonin 0.07. His continued on DuoNeb inhalations, Pulmicort inhalations, IV Solu-Medrol. Antibiotics in the form of ceftriaxone and azithromycin. Reevaluated today on 10/09/21, patient remains in the ICU, continues to have intermittent episodes of cough, wheezing, shortness of breath. Patient is on high flow oxygen, 70% FiO2 and 60 L flow using airvo, and his O2 saturation is 94-96%. Follow-up chest x-ray this morning showed minimal atelectasis at the bases especially at the left base, doubt infiltrate. Labs were reviewed. These were all done yesterday. Patient was reevaluated today on 10/10/2021, remains in the ICU, feeling much better, breathing a lot easier, nonetheless continues to have intermittent episodes of cough. His O2 saturation is 94%, however the patient remains on relatively high flow oxygen, he is on airvo at 55% and 55 L flow. Clinically the patient is feeling better, and breathing a lot easier. Her cheko on multiple bronchodilators and and steroids. No labs were done today. Progress note dated 10/11/2021. 80-year-old male, who was admitted on October 07, into the intensive care unit for respiratory failure. The patient was discovered to have respiratory syncytial virus infection, with hypoxemic respiratory failure. Currently, the patient is on AIRVO, at 55 L/m with an FiO2 of 55%. The patient is not receiving any IV fluids. The patient is on broad-spectrum antibiotics. I did ask the nurse to repeat a pro-calcitonin level. So far, microbiology is negative. Clinically, he is very short of breath with any activity. He is about the same today as he was yesterday, he tells me. White count 15.4, hemoglobin 14.7, hematocrit 45.6, and platelet count 207,000. Sodium 136, potassium 4.6, chlorides 106, CO2 26, anion gap 4, BUN 31, and creatinine 0.95. Chest x-ray shows cardiomegaly, with patch bilateral infiltrates. Progress note dated 10/12/2021. This is a 80-year-old gentleman who's been now in the hospital for 5 days. He was admitted back on October 07, into the intensive care unit, for respiratory failure. The patient was positive for RSV infection, with hypoxemic respiratory failure, and asthma exacerbation. The patient remains on AIRVO at 50 L/m and 55%. This is essentially what he was on yesterday. The patient is still very short of breath. White count 16, hemoglobin 15.5, hematocrit 48, platelet count 225,000. Sodium 137, potassium 5, chlorides 105, CO2 29, anion gap 3, BUN 37, and creatinine 0.92. The patient's chest x-ray shows bilateral infiltrates, and is essentially unchanged. Progress note dated 10/13/2021. 80-year-old male is been the hospital now for 6 days. He was admitted back on October 07. Into the ICU, for respiratory failure secondary to RSV infection and asthma exacerbation. Currently, unfortunately, he remains on AIRVO, at 50 L/m and an FiO2 of 50%. He's quite short of breath with any activity. He feels like he is really not improving, but also not getting any worse. White count 14.9, with a normal hemoglobin, hematocrit, and platelet count. Sodium 134, potassium 4.6, chlorides 105, CO2 25, anion gap 4, BUN 38, and creatinine 1. Chest x-ray shows some improvement in the patient's lung aeration. Progress note dated 10/14/2021. 80-year-old male, seen again in room 258. The patient has been in the hospital now for 7 days. He was admitted with a diagnosis of asthma exacerbation, she was likely triggered by a respiratory syncytial virus. Currently, the patient has been weaned down to 15 L high flow nasal O2. Yesterday, he was on AIRVO. He feels like he is improving. His chest x-ray does show improvement in aeration. No new labs today. Progress note dated 10/15/2021. 80-year-old male, again seen in room 258. The patient is been the hospital now for 8 days. He was admitted with a diagnosis of viral pneumonia, secondary to RSV, and asthma exacerbation. The patient is currently not on any IV fluids. He is also on 15 L high flow nasal cannula. Clinically, he looks better. His breathing is better, but his oxygen requirements are still quite high. White count 18.1, hemoglobin, hematocrit, and platelet count are all normal. Sodium 137, potassium 4.6, chlorides 107, CO2 24, anion gap 6, BUN 39, creatinine 0.98. No chest x-ray from today as yet. The patient will have a chest x-ray tomorrow. Progress note dated 10/17/2021. This is a 80-year-old male, who was seen in room 466. Previously, he was in the ICU. He is now been in the hospital for a total of 10 days. He remains on 15 L high flow nasal O2. Clinically, he appears to be relatively stable. He is not having any conversational dyspnea, or using any accessory muscles of respiration. There are no new labs today to report. Chest x-ray from yesterday shows chronic parenchymal changes and cardiomegaly, left greater than right. Objective - Vital Signs Vital signs: Vital Signs Temp 98 F 10/17/21 14:00 Pulse 68 10/17/21 16:56 Resp 17 10/17/21 16:00 BP 150/71 10/17/21 14:00 Pulse Ox 94 L 10/17/21 17:41 Intake & Output 10/16/21 10/17/21 10/17/21 18:59 06:59 18:59 Intake Total 480 Output Total 350 0 Balance 130 0 Weight 112 kg Intake: Oral 480 Output: Urine 350 0 Other: Voiding Method Urinal Urinal # Voids 1 1 # Bowel Movements 1 - Exam Oriented 3, no overt signs of respiratory distress or difficulty. Saturations are 90 % on a 15 L high flow nasal cannula. HEENT examination is grossly unremarkable. Neck supple. Full range of motion. No adenopathy thyromegaly or neck vein distention. Cardiovascular examination reveals regular rhythm rate. S1-S2 normal. No S3 or S4. No discernible murmur noted. Heart sounds are distant. Heart rate 68 bpm. Lungs reveal diffuse bilateral rhonchi. Bibasilar crackles are noted. There are no wheezes. Breath sounds are a bit improved. Abdomen soft bowel sounds are heard. No masses or tenderness. Extremities are intact. No cyanosis clubbing or edema. Skin is without rash or lesion. Neurologic examination is brief but nonfocal. - Labs CBC & Chem 7: 10/15/21 05:18 10/15/21 05:15 Labs: Abnormal Lab Results - Last 24 Hours (Table) 10/16/21 10/17/21 10/17/21 Range/Units 20:18 07:01 11:34 POC Glucose (mg/dL) 134 H 125 H 108 H (75-99) mg/dL 10/17/21 Range/Units 17:04 POC Glucose (mg/dL) 126 H (75-99) mg/dL Assessment and Plan Assessment: Acute hypoxemic respiratory failure secondary to acute asthma exacerbation, triggered by respiratory syncytial virus (RSV) tracheobronchitis. History of mild intermittent asthma. Paroxysmal atrial fibrillation. History of DVT. Lifelong nontobacco use. Plan: Plan dated 10/11/2021. The patient remains on bronchodilators, as well as oxygen, empiric antibiotics, GI prophylaxis, and Solu-Medrol. The patient also continues on his factor X a inhibitor. We will repeat a pro-calcitonin level. If it is normal, we will discontinue empiric antibiotics. Additional recommendations suggestions are forthcoming. Prognosis is guarded. The patient remains on AIRVO, at 55 L/m with an FiO2 of 55%. X-ray and labs are ordered for the morning. We will continue to follow make recommendations where appropriate. Plan dated 10/12/2021. Currently, the patient's about the same as he was yesterday. He remains on updrafts, as well as both Pulmicort, and Robitussin. The patient is also on Singulair, and corticosteroids. The patient's pro-calcitonin level was normal, and hence, the patient's antibiotics were discontinued. The patient is encouraged to deep breathe, cough, and clear any secretions. We will continue to follow. We added Perforomist to his regimen. Plan dated 10/13/2021. The patient remains on AIRVO, at 50 L/m with an FiO2 of 50%. He is not getting any IV fluids. His antibiotics were discontinued, because his pro-calcitonin level was normal. The patient is encouraged to take deep breaths, cough, and clear secretions. We also recommend him using the incentive spirometer. The patient is on Pulmicort and Perforomist. He remains on updrafts. We will continue to follow make recommendations where appropriate. He has not really improved clinically over the last 2 or 3 days. Radiographically, there may be some improvement. Plan dated 10/14/2021. The patient has been weaned from AIRVO, down to 15 L high flow nasal cannula. Saturations are right around 90%. Clinically, the patient looks better, and his chest x-ray my opinion is improved. We encourage the hourly use of incentive spirometer, as well as deep breathing, coughing, and clearing of secretions. We will continue to follow. The patient is not stable enough to leave the intensive care unit this time. Additional recommendations and suggestions are forthcoming. Plan dated 10/15/2021. The patient remains on 15 L high flow nasal cannula. This is an improvement, f rom the AIRVO that he was previously on. The patient's chest x-ray does show improvement. Clinically the patient feels better. The patient is anxious to be discharged from the hospital, but has to be on 5 L or less of oxygen. In addition, we will like to see her saturations to be above 90%. Additional recommendations and suggestions are forthcoming. We will continue to follow. Prognosis is guarded. Plan dated 10/17/2021. The patient remains on albuterol sulfate and ipratropium bromide breathing treatments. The patient is on Singulair, as well as Solu-Medrol, 60 mg IV push every 6 hours. The patient remains on Xarelto. We will continue to follow make recommendations where appropriate. I will add back Pulmicort, 1 mg twice a day. Prognosis is guarded. We will continue to follow. Time with Patient: Less than 30
--- NOTE | 2021-10-17 19:00 | P.PN ---
Subjective This is a pleasant 80 years old male with past medical history of hypertension, paroxysmal atrial fibrillation on Xarelto, benign prostatic hypertrophy, hiatal hernia, hereditary factor VIII deficiency, hyperlipidemia. Patient remains in the ICU monitored closely. He did have good sleep last night however he felt some [place] the center of his chest but he denies any specific chest pain. Coughing a lot and he was to cuff is still followed therefore we will add Robitussin. Patient remains quite hypoxic needing 15 L/m of oxygen. He has mild leukocytosis secondary to steroid effect He remains on Solu-Medrol and Xarelto. 10/15/2021 Patient showed gradual improvement from air were down to 15 L. However since yesterday's normal change his still on 15 L/m of oxygen. At rest he does not complain from dyspnea, actually he states he feels little better today. However patient does not move around. Cough and is better no other complaints. Other vitals are stable. Labs are unremarkable. Patient kept on the same treatment of 15 mL per hour. 10/17/2021 Patient with severe asthma still on 15 L/m of oxygen with good saturation of 97 %. States his breathing is okay while he is sitting in chair but wants he has mild exertion he becomes severely dyspneic. Remains on high-dose Solu-Medrol 60 mg. Home dose of Xarelto. Continue monitoring closely Objective - Vital Signs Vital signs: Vital Signs Temp 97.7 F 10/15/21 20:00 Pulse 78 10/16/21 11:36 Resp 18 10/16/21 11:00 BP 137/84 10/16/21 11:00 Pulse Ox 90 L 10/16/21 11:00 Intake & Output 10/15/21 10/16/21 10/16/21 18:59 06:59 18:59 Intake Total 1560 360 Output Total 800 550 350 Balance 760 -550 10 Weight 113.1 kg Intake: Oral 1560 360 Output: Urine 800 550 350 Other: Voiding Method Urinal Urinal Urinal # Voids 1 1 1 - Exam GENERAL: The patient is alert and oriented x3, not in any acute distress. Well developed, well nourished. HEENT: Pupils are round and equally reacting to light. EOMI. No scleral icterus. No conjunctival pallor. Normocephalic, atraumatic. No pharyngeal erythema. No thyromegaly. CARDIOVASCULAR: S1 and S2 present. No murmurs, rubs, or gallops. -PULMONARY: Chest is clear to auscultation, cathetered bilateral wheezing ABDOMEN: Soft, nontender, nondistended, normoactive bowel sounds. No palpable organomegaly. MUSCULOSKELETAL: No joint swelling or deformity. EXTREMITIES: No cyanosis, clubbing, or pedal edema. NEUROLOGICAL: Gross neurological examination did not reveal any focal deficits. SKIN: No rashes. no petechiae. - Labs CBC & Chem 7: 10/15/21 05:18 10/15/21 05:15 Labs: Abnormal Lab Results - Last 24 Hours (Table) 10/15/21 10/15/21 10/16/21 Range/Units 16:49 : 06:40 POC Glucose (mg/dL) 139 H 186 H 121 H (75-99) mg/dL 10/16/21 Range/Units 11:15 POC Glucose (mg/dL) 150 H (75-99) mg/dL Assessment and Plan Assessment: Acute asthma exacerbation RSV virus infection of the respiratory's airway Hypertension Paroxysmal atrial fibrillation on Xarelto History of benign prostatic hypertrophy History of hiatal hernia Hereditary factor VIII deficiency Hyperlipidemia Plan: This is a pleasant 80 years old male who presents with asthma Continue with Solu-Medrol Continue with oxygen as needed Labs and medication were reviewed.. Continue same treatment. Continue with symptomatic treatment. Resume home medication. Monitor lytes and vitals. DVT and GI prophylaxis. Further recommendations as per clinical course of the patient DVT prophylaxis: Xarelto GI Prophylaxis: Ppi Prognosis is guarded
[2021-10-17 20:27] LABS: Glucose,Whole Blood 115 mg/dL (75-99)
[2021-10-17] MEDS: BUDESONIDE 1 MG/2 ML NEBU INHALATION SCH (20:33)
[2021-10-17] MEDS: TAMSULOSIN 0.4 MG CAP.ER.24H PO SCH (21:35)
[2021-10-17] MEDS: MONTELUKAST 10 MG TAB PO SCH (21:36)
[2021-10-17] MEDS: RIVAROXABAN 20 MG TAB PO SCH (21:50)
[2021-10-18] MEDS: methylPREDNISolone SOD SUCCI 125 MG/2 ML VIAL IV SCH ×3 (05:12→18:15)
[2021-10-18 07:18] LABS: Glucose,Whole Blood 109 mg/dL (75-99)
[2021-10-18] MEDS: INSULIN ASPART (NovoLOG) 100 UNIT/ML VIAL SQ SCH ×4 (08:28→22:03)
[2021-10-18] MEDS: PANTOPRAZOLE 40 MG TABLET PO SCH (08:51)
[2021-10-18] MEDS: METOPROLOL TARTRATE 25 MG TAB PO SCH ×2 (08:51→22:01)
[2021-10-18] MEDS: LOSARTAN 50 MG TAB PO SCH (08:51)
[2021-10-18] MEDS: MULTIVITAMINS, THERA 1 EACH TAB PO SCH (08:51)
[2021-10-18] MEDS: CYANOCOBALAMIN 500 MCG TAB PO SCH (08:51)
[2021-10-18] MEDS: ACETAMINOPHEN TAB 325 MG TAB PO PRN (08:51)
[2021-10-18] MEDS: FOLIC ACID 1 MG TAB PO SCH (08:51)
[2021-10-18] MEDS: guaiFENesin SYRUP 100MG/5ML 200 MG/10 ML CUP PO SCH ×3 (08:53→22:02)
--- NOTE | 2021-10-18 09:21 | XR ---
EXAMINATION TYPE: XR chest 1V portable DATE OF EXAM: 10/18/2021 COMPARISON: 10/16/2021 HISTORY: Hypoxia TECHNIQUE: Single frontal view of the chest is obtained. FINDINGS: Bilateral lower lobe infiltrate. Tiny effusions not excluded. Her prominent. Bilateral ple ural fluid. No pneumothorax. Interstitium stable. Hypertrophic changes of the spine. IMPRESSION: Stable bilateral infiltrate.
[2021-10-18] MEDS: IPRATROPIUM-ALBUTEROL 3 ML NEB INHALATION SCH ×4 (09:56→20:25)
[2021-10-18] MEDS: BUDESONIDE 1 MG/2 ML NEBU INHALATION SCH ×2 (09:56→20:25)
[2021-10-18] MEDS: AZITHROMYCIN 500 MG in SODIUM CHLORIDE 0.9% 250 ML IVPB SCH (10:27)
[2021-10-18 11:47] LABS: Glucose,Whole Blood 170 mg/dL (75-99)
--- NOTE | 2021-10-18 12:43 | P.PN ---
Subjective Progress Note Date: 10/18/21 80-year-old male patient, who is being seen for a follow-up. The patient has been hospitalized for an acute asthma exacerbation was RSV tracheobronchitis. The patient has been in the hospital for the past 11 days. He also has chronic atrial fibrillation the patient is maintained on Xarelto, he has a large hiatal hernia that has been surgically repaired. The patient was initiated intensive care unit for increased dyspnea wheezing and the patient was also requiring high flow oxygen at 60 L with an FiO2 of 70%. The patient gradually improved in his oxygenation was weaned down and currently is on 15 L of oxygen by nasal cannula. The patient remains on DuoNeb the right treatment [id number]. The patient remains on IV Solu Medrol 60 mg every 6 hours. The chest x-ray showing stable bilateral lower lobe pulmonary infiltrate and tiny effusions along with some mild cardiomegaly. Objective - Vital Signs Vital signs: Vital Signs Temp 98.2 F 10/18/21 07:00 Pulse 85 10/18/21 10:10 Resp 15 10/18/21 08:00 BP 138/73 10/18/21 07:00 Pulse Ox 95 10/18/21 09:59 Intake & Output 10/17/21 10/18/21 10/18/21 18:59 06:59 18:59 Output Total 0 0 Balance 0 0 Weight 111 kg Output: Urine 0 0 Other: Voiding Method Urinal # Voids 1 1 - Exam GENERAL EXAM: Alert, pleasant, 80-year-old obese white male, currently on 15 L of oxygen pulse ox is 90-92% comfortable in no apparent distress. HEAD: Normocephalic/atraumatic. EYES: Normal reaction of pupils, equal size. Conjunctiva pink, sclera white. NOSE: Clear with pink turbinates. THROAT: No erythema or exudates. NECK: No masses, no JVD, no thyroid enlargement, no adenopathy. CHEST: No chest wall deformity. Symmetrical expansion. LUNGS: Equal air entry with diffuse crackles, no rhonchi or wheezing CVS: Regular rate and rhythm, normal S1 and S2, no gallops, no murmurs, no rubs ABDOMEN: Soft, nontender. No hepatosplenomegaly, normal bowel sounds, no guar ding or rigidity. EXTREMITIES: No clubbing, mild pretibial edema, chronic venous stasis changes present in bilateral lower extremities no cyanosis, 2+ pulses and upper and lower extremities. MUSCULOSKELETAL: Muscle strength and tone normal. SPINE: No scoliosis or deformity SKIN: No rashes CENTRAL NERVOUS SYSTEM: Alert and oriented -3. No focal deficits, tone is normal in all 4 extremities. PSYCHIATRIC: Alert and oriented -3. Appropriate affect. Intact judgment and insight. - Labs CBC & Chem 7: 10/15/21 05:18 10/15/21 05:15 Labs: Abnormal Lab Results - Last 24 Hours (Table) 10/17/21 10/17/21 10/18/21 Range/Units 17:04 20:26 07:16 POC Glucose (mg/dL) 126 H 115 H 109 H (75-99) mg/dL 10/18/21 Range/Units 11:46 POC Glucose (mg/dL) 170 H (75-99) mg/dL Assessment and Plan Plan: #1. Acute hypoxic respiratory failure secondary to acute exacerbation of chronic bronchial asthma, unspecified, triggered by respiratory syncytial virus tracheobronchitis. Procalcitonin level was negative 2, COVID-19 PCR was negative 3, clinically improving and the patient has been weaned down to 11 L of oxygen by nasal cannula. Using incentive spirometer. No new complaints otherwise for now. #2. Leukocytosis likely related to IV steroids #3. Paroxysmal atrial fibrillation on Xarelto #4. 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 Lifetime nonsmoker #6. Hearing disorder #7. Morbid obesity Plan: Weaned off the oxygen down to 11 L by nasal cannula and further bringing it down to maintain a saturation above 90% Monitor the oxygenation Continue IV steroids Continue cough syrup Wean FiO2 to maintain O2 saturations at 88% and above Blood cultures remain negative, probe calcitonin level is negative time 2, COVID-19 PCR negative 3 No acute events overnight continue cough syrup and tessalon Stable for transfer out of intensive care unit today to regular medical surgical floor without telemetry
[2021-10-18 16:55] LABS: Glucose,Whole Blood 123 mg/dL (75-99)
[2021-10-18 20:50] LABS: Glucose,Whole Blood 122 mg/dL (75-99)
[2021-10-18] MEDS: RIVAROXABAN 20 MG TAB PO SCH (22:02)
[2021-10-18] MEDS: MONTELUKAST 10 MG TAB PO SCH (22:02)
[2021-10-18] MEDS: TAMSULOSIN 0.4 MG CAP.ER.24H PO SCH (22:02)
[2021-10-19] MEDS: methylPREDNISolone SOD SUCCI 125 MG/2 ML VIAL IV SCH ×4 (00:39→18:15)
[2021-10-19 07:05] LABS: Glucose,Whole Blood 112 mg/dL (75-99)
[2021-10-19] MEDS: INSULIN ASPART (NovoLOG) 100 UNIT/ML VIAL SQ SCH ×4 (08:43→21:15)
[2021-10-19] MEDS: CYANOCOBALAMIN 500 MCG TAB PO SCH (08:43)
[2021-10-19] MEDS: guaiFENesin SYRUP 100MG/5ML 200 MG/10 ML CUP PO SCH ×3 (08:43→21:15)
[2021-10-19] MEDS: PANTOPRAZOLE 40 MG TABLET PO SCH (08:44)
[2021-10-19] MEDS: FOLIC ACID 1 MG TAB PO SCH (08:44)
[2021-10-19] MEDS: METOPROLOL TARTRATE 25 MG TAB PO SCH ×2 (08:44→21:15)
[2021-10-19] MEDS: LOSARTAN 50 MG TAB PO SCH (08:44)
[2021-10-19] MEDS: MULTIVITAMINS, THERA 1 EACH TAB PO SCH (08:44)
[2021-10-19] MEDS: BUDESONIDE 1 MG/2 ML NEBU INHALATION SCH ×2 (08:59→20:36)
[2021-10-19] MEDS: IPRATROPIUM-ALBUTEROL 3 ML NEB INHALATION SCH ×4 (08:59→20:36)
[2021-10-19 11:35] LABS: Glucose,Whole Blood 128 mg/dL (75-99)
--- NOTE | 2021-10-19 12:53 | P.PN ---
Subjective Progress Note Date: 10/19/21 10/19/2021, I'm seeing the patient for a follow-up. The patient is feeling better. The patient is currently down to 8 L of Oxymizer nasal cannula. He is still not fully recovered. He still has exertional dyspnea. Limited cough without any sputum production. He remains on IV Solu-Medrol. He has developed some increased swelling in lower extremity is bilaterally. Note that the patient was hospitalized for acute asthma exacerbation secondary to RSV tracheobronchitis. He has been in the hospital for the past 12 days. He did have gradual improvement in his oxygenation as the patient was treated with a combination of bronchodilators and steroids. No new complaints otherwise for now. His tolerating his diet. No altered mentation. He has chronic atrial fibrillation and he is maintained on Xarelto. The patient also has a large size hiatal hernia that has been surgically repaired. Objective - Vital Signs Vital signs: Vital Signs Temp 98 F 10/19/21 08:01 Pulse 85 10/19/21 09:11 Resp 16 10/19/21 08:01 BP 143/79 10/19/21 08:01 Pulse Ox 93 L 10/19/21 08:01 Intake & Output 10/18/21 10/19/21 10/19/21 18:59 06:59 18:59 Intake Total 236 Balance 236 Intake: Oral 236 Other: Voiding Method Urinal # Voids 3 - Exam GENERAL EXAM: Alert, pleasant, 80-year-old obese white male, currently on 8 L of oxygen pulse ox is 90-92% comfortable in no apparent distress. HEAD: Normocephalic/atraumatic. EYES: Normal reaction of pupils, equal size. Conjunctiva pink, sclera white. NOSE: Clear with pink turbinates. THROAT: No erythema or exudates. NECK: No masses, no JVD, no thyroid enlargement, no adenopathy. CHEST: No chest wall deformity. Symmetrical expansion. LUNGS: Equal air entry with diffuse crackles, no rhonchi or wheezing CVS: Regular rate and rhythm, normal S1 and S2, no gallops, no murmurs, no rubs ABDOMEN: Soft, nontender. No hepatosplenomegaly, normal bowel sounds, no guarding or rigidity. EXTREMITIES: No clubbing, mild pretibial edema, chronic venous stasis changes present in bilateral lower extremities no cyanosis, 2+ pulses and upper and lower extremities. MUSCULOSKELETAL: Muscle strength and tone normal. SPINE: No scoliosis or deformity SKIN: No rashes CENTRAL NERVOUS SYSTEM: Alert and oriented -3. No focal deficits, tone is normal in all 4 extremities. PSYCHIATRIC: Alert and oriented -3. Appropriate affect. Intact judgment and insight. - Labs CBC & Chem 7: 10/15/21 05:18 10/15/21 05:15 Labs: Abnormal Lab Results - Last 24 Hours (Table) 10/18/21 10/18/21 10/19/21 Range/Units 16:55 20:48 07:03 POC Glucose (mg/dL) 123 H 122 H 112 H (75-99) mg/dL 10/19/21 Range/Units 11:34 POC Glucose (mg/dL) 128 H (75-99) mg/dL Assessment and Plan Plan: #1. Acute hypoxic respiratory failure secondary to acute exacerbation of chron ic bronchial asthma, unspecified, triggered by respiratory syncytial virus tracheobronchitis. Procalcitonin level was negative 2, COVID-19 PCR was negative 3, clinically improving and the patient has been weaned down to 8 L of oxygen by nasal cannula. Using incentive spirometer. No new complaints otherwise for now. Continues to be on same treatment including steroids and bronchodilators. #2. Leukocytosis likely related to IV steroids #3. Paroxysmal atrial fibrillation on Xarelto #4. 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 Lifetime nonsmoker #6. Hearing disorder #7. Morbid obesity Plan: Weaned off the oxygen down to 8 L by nasal cannula and further bringing it down to maintain a saturation above 90% Monitor the oxygenation Continue IV steroids, suggest tapering the steroids as of tomorrow Encourage using incentive spirometer Continue cough syrup Wean FiO2 to maintain O2 saturations at 88% and above Blood cultures remain negative, probe calcitonin level is negative time 2, COVID-19 PCR negative 3 No acute events overnight
--- NOTE | 2021-10-19 14:16 | P.PN ---
Subjective Progress Note Date: 10/18/21 HISTORY OF PRESENT ILLNESS This is a 80-year-old male with past medical history of hypertension, paroxysmal atrial fibrillation on Xarelto, benign prostatic hypertrophy, hiatal hernia, hereditary factor VIII deficiency, hyperlipidemia. Patient presented to the office yesterday due to shortness of breath cough, exertional dyspnea and was found to have a pulse ox of 84% and patient was sent to [facility] emergency [place] for further evaluation and treatment. Patient was placed on BiPAP overnight and has been transitioned to nasal cannula. CBC was unremarkable. Electrolytes and renal function normal. Blood sugar 176. Liver function tests were normal. ProCalcitonin 0.07. Magnesium 2.0. Lactic acid 1.5. Coronal virus PCR not detected. Chest x-ray reveals patchy bilateral infiltrates correlate for pneumonia. Prominence of descending aorta. Aneurysm not excluded. Patient has a drop in his pulse ox on a 60% and was transferred to the ICU and consult/seen by Dr. Palafox. 10/09: Patient sitting up in bed he is requiring more oxygen today he's been satting about 93-94%, he continued to have occasional cough, no phlegm production, he has no headache, he has no chest pain, he has pain, nausea vomiting or diarrhea, he seems to be tolerating treatment very well, patient continues to be somewhat hypertensive, we will start the patient on losartan 50 mg once every other blood pressures not improving in the next 24 hours. 10/10: Patient continues to be hypotensive I will add losartan 50 mg once every day, continue metoprolol 25 mg twice every day, continue patient's in the ICU continue patient on current treatment plan, he continues to require quite a bit of oxygen his saturation is about 94%, we'll continue current ICU care monitor the patient very closely. 10/11: Patient remains in the intensive care unit. Heart rate running between 49 and 64, blood pressure 152/82, pulse ox 92% on high flow nasal cannula. Repeat blood work reveals WBC 15.4. Sodium 136, BUN 31 creatinine 0.95. Capillary blood glucose running between 119 and an 172. Magnesium 2.5. Liver function tests normal. Blood culture showing no growth at 72 hours. 10/12: Patient remains in the intensive care unit on AirVo 55% and 50 L with pulse ox of 89-93% through the night. Heart rate is running in the 50s, blood pressure 130/78. WBC 16. Capillary blood glucose running between 120s and 178. Patient bothersome congested cough and states he does not feel as well as yesterday. Patient states he was of this year for several hours yesterday. Chest x-ray reveals correlate for pneumonia versus atelectasis. Incentive spirometry will be ordered, patient to be up in a chair today as well. 10/15/2021 Patient showed gradual improvement from air were down to 15 L. However since yesterday's normal change his still on 15 L/m of oxygen. At rest he does not complain from dyspnea, actually he states he feels little better today. However patient does not move around. Cough and is better no other complaints. Other vitals are stable. Labs are unremarkable. Patient kept on the same treatment of 15 mL per hour. 10/17/2021 Patient with severe asthma still on 15 L/m of oxygen with good saturation of 97%. States his breathing is okay while he is sitting in chair but wants he has mild exertion he becomes severely dyspneic. Remains on high-dose Solu-Medrol 60 mg. Home dose of Xarelto. Continue monitoring closely 10/18: Patient states his breathing is better today and he feels stronger. He is still short of breath with activity. Patient has been afebrile, heart rate 59, blood pressure 138/73, pulse ox 95% on 12 L nasal cannula. He is utilizing incentive spirometry and doing well with that. Repeat chest x-ray reveals stable bilateral infiltrate. Patient is followed by pulmonary medicine and continued on Solu-Medrol 60 mg IV every 6 hours, Pulmicort twice daily, Tessalon Perles, Robitussin, DuoNeb treatments 4 times daily and as needed, Singulair. Plan to wean oxygen down and preparation for discharge soon. REVIEW OF SYSTEMS Constitutional: No fever, no chills, no night sweats. No weight change. Report s weakness, Reports fatigue Reports lethargy. No daytime sleepiness. EENT: No headache. No blurred vision or double vision, no loss of vision. No loss of Hearing. No nasal drainage or congestion. No epistaxis. No sore throat. Lungs: Reports shortness of breath, Reports cough, Reports sputum production. Reports wheezing. Cardiovascular: No chest pain, no lower extremity edema. No palpitations. No paroxysmal nocturnal dyspnea. No orthopnea. No lightheadedness or dizziness. No syncopal episodes. Abdominal: No abdominal pain. No nausea, vomiting. No diarrhea. No constipation. No bloody or tarry stools. No loss of appetite. Genitourinary: No dysuria, increased frequency, urgency. No urinary retention. Musculoskeletal: No myalgias. Reports muscle weakness, no gait dysfunction, no frequent falls. No back pain. No neck pain. Integumentary: No wounds, no lesions. No rash or pruritus. No unusual bruising. Neurologic: No aphasia. No facial droop. No change in mentation. No head injury. No headache. No paralysis. No paresthesia. Psychiatric: No depression. No anxiety. No mood swings. Endocrine: No abnormal blood sugars. No weight change. No excessive sweating or thirst. PHYSICAL EXAMINATION Gen: This is an obese 80-year-old male, resting in bed, currently on AirVo, appears to be fairly comfortable at rest. HEENT: Head is atraumatic, normocephalic. Pupils equal, round. Sclerae is anicteric. NECK: Supple. No JVD. No lymphadenopathy. No thyromegaly. LUNGS: Diminished breath sounds bilaterally. Bilateral rhonchi. No intercostal retractions. HEART: First heart sound is depressed, second heart sound is normal, 2/6 systo lic ejection murmur at the left sternal border. school bus monitor is a sinus rhythm. ABDOMEN: Soft. Bowel sounds are present. No masses. No tenderness. EXTREMITIES: No pedal edema. No calf tenderness. NEUROLOGICAL: Patient is awake, alert and oriented x3. Cranial nerves 2 through 12 are grossly intact. ASSESSMENT AND PLAN 1. Acute hypoxic respiratory failure secondary to acute exacerbation of asthma triggered by RSV tracheobronchitis. Patient is seen today on the cardiac stepdown unit, consult with pulmonary medicine appreciated. Continue Pulmicort 1 mg twice daily, DuoNeb treatments 4 times daily and as needed, Robitussin with codeine every 6 hours as needed, Solu-Medrol 60 mg IV every 6 hours, continue incentive spirometry. 2. Acute exacerbation of mild intermittent asthma. Continue as in #1. Continue Singulair 3. Paroxysmal atrial fibrillation. Continue Xarelto 20 mg at bedtime, Lopressor 25 mg twice daily. 4. Benign prostatic hypertrophy. Continue Flomax 0.4 mg daily, monitor for urinary retention. 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 6. Hyperlipidemia. Continue low-cholesterol diet and monitor lipid panel. 7. Hypertension and hypertensive cardiovascular disease. Continue patient on metoprolol 25 mg orally twice every day, continue losartan 50 mg every day monitor blood pressure very closely. 8. GI prophylaxis. Protonix 40 mg IV daily. 9. DVT prophylaxis. Xarelto. 10. COVID-19 testing negative. Patient has been hospitalized during a pandemic. DISCHARGE PLAN Home with [facility] Impression and plan of care have been directed as dictated by the signing physician. Melissa Hairston nurse practitioner acting as scribe for signing physician. Objective - Vital Signs Vital signs: Vital Signs Temp 98.2 F 10/18/21 07:00 Pulse 59 L 10/18/21 07:00 Resp 22 10/18/21 07:00 BP 138/73 10/18/21 07:00 Pulse Ox 95 10/18/21 07:00 Intake & Output 10/17/21 10/18/21 10/18/21 18:59 06:59 18:59 Output Total 0 0 Balance 0 0 Weight 111 kg Output: Urine 0 0 Other: Voiding Method Urinal # Voids 1 1 - Labs CBC & Chem 7: 10/15/21 05:18 10/15/21 05:15 Labs: Abnormal Lab Results - Last 24 Hours (Table) 10/17/21 10/17/21 10/17/21 Range/Units 11:34 17:04 20:26 POC Glucose (mg/dL) 108 H 126 H 115 H (75-99) mg/dL 10/18/21 Range/Units 07:16 POC Glucose (mg/dL) 109 H (75-99) mg/dL
--- NOTE | 2021-10-19 14:19 | P.PN ---
Subjective Progress Note Date: 10/19/21 HISTORY OF PRESENT ILLNESS This is a 80-year-old male with past medical history of hypertension, paroxysmal atrial fibrillation on Xarelto, benign prostatic hypertrophy, hiatal hernia, hereditary factor VIII deficiency, hyperlipidemia. Patient presented to the office yesterday due to shortness of breath cough, exertional dyspnea and was found to have a pulse ox of 84% and patient was sent to [facility] emergency [place] for further evaluation and treatment. Patient was placed on BiPAP overnight and has been transitioned to nasal cannula. CBC was unremarkable. Electrolytes and renal function normal. Blood sugar 176. Liver function tests were normal. ProCalcitonin 0.07. Magnesium 2.0. Lactic acid 1.5. Coronal virus PCR not detected. Chest x-ray reveals patchy bilateral infiltrates correlate for pneumonia. Prominence of descending aorta. Aneurysm not excluded. Patient has a drop in his pulse ox on a 60% and was transferred to the ICU and consult/seen by Dr. Palafox. 10/09: Patient sitting up in bed he is requiring more oxygen today he's been satting about 93-94%, he continued to have occasional cough, no phlegm production, he has no headache, he has no chest pain, he has pain, nausea vomiting or diarrhea, he seems to be tolerating treatment very well, patient continues to be somewhat hypertensive, we will start the patient on losartan 50 mg once every other blood pressures not improving in the next 24 hours. 10/10: Patient continues to be hypotensive I will add losartan 50 mg once every day, continue metoprolol 25 mg twice every day, continue patient's in the ICU continue patient on current treatment plan, he continues to require quite a bit of oxygen his saturation is about 94%, we'll continue current ICU care monitor the patient very closely. 10/11: Patient remains in the intensive care unit. Heart rate running between 49 and 64, blood pressure 152/82, pulse ox 92% on high flow nasal cannula. Repeat blood work reveals WBC 15.4. Sodium 136, BUN 31 creatinine 0.95. Capillary blood glucose running between 119 and an 172. Magnesium 2.5. Liver function tests normal. Blood culture showing no growth at 72 hours. 10/12: Patient remains in the intensive care unit on AirVo 55% and 50 L with pulse ox of 89-93% through the night. Heart rate is running in the 50s, blood pressure 130/78. WBC 16. Capillary blood glucose running between 120s and 178. Patient bothersome congested cough and states he does not feel as well as yesterday. Patient states he was of this year for several hours yesterday. Chest x-ray reveals correlate for pneumonia versus atelectasis. Incentive spirometry will be ordered, patient to be up in a chair today as well. 10/15/2021 Patient showed gradual improvement from air were down to 15 L. However since yesterday's normal change his still on 15 L/m of oxygen. At rest he does not complain from dyspnea, actually he states he feels little better today. However patient does not move around. Cough and is better no other complaints. Other vitals are stable. Labs are unremarkable. Patient kept on the same treatment of 15 mL per hour. 10/17/2021 Patient with severe asthma still on 15 L/m of oxygen with good saturation of 97%. States his breathing is okay while he is sitting in chair but wants he has mild exertion he becomes severely dyspneic. Remains on high-dose Solu-Medrol 60 mg. Home dose of Xarelto. Continue monitoring closely 10/18: Patient states his breathing is better today and he feels stronger. He is still short of breath with activity. Patient has been afebrile, heart rate 59, blood pressure 138/73, pulse ox 95% on 12 L nasal cannula. He is utilizing incentive spirometry and doing well with that. Repeat chest x-ray reveals stable bilateral infiltrate. Patient is followed by pulmonary medicine and continued on Solu-Medrol 60 mg IV every 6 hours, Pulmicort twice daily, Tessalon Perles, Robitussin, DuoNeb treatments 4 times daily and as needed, Singulair. Plan to wean oxygen down and preparation for discharge soon. 10/19: Patient continues to feel that he is breathing better. He does have a croupy cough. He is eating well and had a bowel movement last night. He is now on 9 L nasal cannula with pulse ox of 93%. He's been afebrile, heart rate 66, blood pressure 143/79. D-dimer 0.2. Plan today to continue to wean oxygen down maintaining pulse ox of 90-93%. She is anxious to be discharged home. Probable discharge home tomorrow. REVIEW OF SYSTEMS Constitutional: No fever, no chills, no night sweats. No weight change. Reports weakness, Reports fatigue Reports lethargy. No daytime sleepiness. EENT: No headache. No blurred vision or double vision, no loss of vision. No loss of Hearing. No nasal drainage or congestion. No epistaxis. No sore throat. Lungs: Reports shortness of breath, Reports cough, Reports sputum production. Reports wheezing. Cardiovascular: No chest pain, no lower extremity edema. No palpitations. No paroxysmal nocturnal dyspnea. No orthopnea. No lightheadedness or dizziness. No syncopal episodes. Abdominal: No abdominal pain. No nausea, vomiting. No diarrhea. No constipation. No bloody or tarry stools. No loss of appetite. Genitourinary: No dysuria, increased frequency, urgency. No urinary retention. Musculoskeletal: No myalgias. Reports muscle weakness, no gait dysfunction, no frequent falls. No back pain. No neck pain. Integumentary: No wounds, no lesions. No rash or pruritus. No unusual bruising. Neurologic: No aphasia. No facial droop. No change in mentation. No head injury. No headache. No paralysis. No paresthesia. Psychiatric: No depression. No anxiety. No mood swings. Endocrine: No abnormal blood sugars. No weight change. PHYSICAL EXAMINATION Gen: This is an obese 80-year-old male, resting in bed, currently on nasal cannula at 8 L, appears to be fairly comfortable at rest. HEENT: Head is atraumatic, normocephalic. Pupils equal, round. Sclerae is anicteric. NECK: Supple. No JVD. No lymphadenopathy. No thyromegaly. LUNGS: Diminished breath sounds bilaterally. Bilateral rhonchi. No intercostal retractions. HEART: First heart sound is depressed, second heart sound is normal, 2/6 systolic ejection murmur at the left sternal border. awake overnight monitor is a sinus rhythm. ABDOMEN: Soft. Bowel sounds are present. No masses. No tenderness. EXTREMITIES: No pedal edema. No calf tenderness. NEUROLOGICAL: Patient is awake, alert and oriented x3. Cranial nerves 2 through 12 are grossly intact. ASSESSMENT AND PLAN 1. Acute hypoxic respiratory failure secondary to acute exacerbation of asthma triggered by RSV tracheobronchitis. Patient is seen today on the cardiac stepdown unit, consult with pulmonary medicine appreciated. Continue Pulmicort 1 mg twice daily, DuoNeb treatments 4 times daily and as needed, Robitussin with codeine every 6 hours as needed, Solu-Medrol 60 mg IV every 6 hours, continue incentive spirometry. 2. Acute exacerbation of mild intermittent asthma. Continue as in #1. Continue Singulair 3. Paroxysmal atrial fibrillation. Continue Xarelto 20 mg at bedtime, continue Lopressor 25 mg twice daily. 4. Benign prostatic hypertrophy. Continue Flomax 0.4 mg daily, monitor for urinary retention. 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 6. Hyperlipidemia. Continue low-cholesterol diet and monitor lipid panel. 7. Hypertension and hypertensive cardiovascular disease. Continue patient on metoprolol 25 mg orally twice every day, continue losartan 50 mg every day monitor blood pressure very closely. 8. GI prophylaxis. Protonix 40 mg IV daily. 9. DVT prophylaxis. Xarelto. 10. COVID-19 testing negative. Patient has been hospitalized during a pandemic. DISCHARGE PLAN Home with [facility] Impression and plan of care have been directed as dictated by the signing phys ician. Melissa Hairston nurse practitioner acting as scribe for signing physician. Objective - Vital Signs Vital signs: Vital Signs Temp 98 F 10/19/21 08:01 Pulse 66 10/19/21 08:01 Resp 16 10/19/21 08:01 BP 143/79 10/19/21 08:01 Pulse Ox 93 L 10/19/21 08:01 Intake & Output 10/18/21 10/19/21 10/19/21 18:59 06:59 18:59 Other: # Voids 3 - Labs CBC & Chem 7: 10/15/21 05:18 10/15/21 05:15 Labs: Abnormal Lab Results - Last 24 Hours (Table) 10/18/21 10/18/21 10/18/21 Range/Units 11:46 16:55 20:48 POC Glucose (mg/dL) 170 H 123 H 122 H (75-99) mg/dL 10/19/21 Range/Units 07:03 POC Glucose (mg/dL) 112 H (75-99) mg/dL
[2021-10-19 16:35] LABS: Glucose,Whole Blood 114 mg/dL (75-99)
[2021-10-19 20:25] LABS: Glucose,Whole Blood 166 mg/dL (75-99)
[2021-10-19] MEDS: MONTELUKAST 10 MG TAB PO SCH (21:15)
[2021-10-19] MEDS: TAMSULOSIN 0.4 MG CAP.ER.24H PO SCH (21:15)
[2021-10-19] MEDS: RIVAROXABAN 20 MG TAB PO SCH (21:15)
[2021-10-19] MEDS: ACETAMINOPHEN TAB 325 MG TAB PO PRN (21:50)
[2021-10-20] MEDS: methylPREDNISolone SOD SUCCI 125 MG/2 ML VIAL IV SCH ×5 (06:10→23:03)
[2021-10-20] MEDS: BENZOCAINE/MENTHOL LOZENG 1 EACH LOZENGE MUCOUS MEM PRN (06:11)
[2021-10-20] MEDS: BENZONATATE 100 MG CAP PO PRN (06:11)
[2021-10-20 07:03] LABS: Glucose,Whole Blood 122 mg/dL (75-99)
[2021-10-20] MEDS: INSULIN ASPART (NovoLOG) 100 UNIT/ML VIAL SQ SCH ×4 (07:32→21:12)
[2021-10-20] MEDS: METOPROLOL TARTRATE 25 MG TAB PO SCH ×2 (07:54→21:11)
[2021-10-20] MEDS: PANTOPRAZOLE 40 MG TABLET PO SCH (07:54)
[2021-10-20] MEDS: FOLIC ACID 1 MG TAB PO SCH (07:55)
[2021-10-20] MEDS: CYANOCOBALAMIN 500 MCG TAB PO SCH (07:55)
[2021-10-20] MEDS: MULTIVITAMINS, THERA 1 EACH TAB PO SCH (07:55)
[2021-10-20] MEDS: guaiFENesin SYRUP 100MG/5ML 200 MG/10 ML CUP PO SCH ×3 (07:56→21:12)
[2021-10-20] MEDS: LOSARTAN 50 MG TAB PO SCH (07:56)
--- NOTE | 2021-10-20 09:39 | P.PN ---
Subjective Progress Note Date: 10/20/21 HISTORY OF PRESENT ILLNESS This is a 80-year-old male with past medical history of hypertension, paroxysmal atrial fibrillation on Xarelto, benign prostatic hypertrophy, hiatal hernia, hereditary factor VIII deficiency, hyperlipidemia. Patient presented to the office yesterday due to shortness of breath cough, exertional dyspnea and was found to have a pulse ox of 84% and patient was sent to [facility] emergency [place] for further evaluation and treatment. Patient was placed on BiPAP overnight and has been transitioned to nasal cannula. CBC was unremarkable. Electrolytes and renal function normal. Blood sugar 176. Liver function tests were normal. ProCalcitonin 0.07. Magnesium 2.0. Lactic acid 1.5. Coronal virus PCR not detected. Chest x-ray reveals patchy bilateral infiltrates correlate for pneumonia. Prominence of descending aorta. Aneurysm not excluded. Patient has a drop in his pulse ox on a 60% and was transferred to the ICU and consult/seen by Dr. Palafox. 10/09: Patient sitting up in bed he is requiring more oxygen today he's been satting about 93-94%, he continued to have occasional cough, no phlegm production, he has no headache, he has no chest pain, he has pain, nausea vomiting or diarrhea, he seems to be tolerating treatment very well, patient continues to be somewhat hypertensive, we will start the patient on losartan 50 mg once every other blood pressures not improving in the next 24 hours. 10/10: Patient continues to be hypotensive I will add losartan 50 mg once every day, continue metoprolol 25 mg twice every day, continue patient's in the ICU continue patient on current treatment plan, he continues to require quite a bit of oxygen his saturation is about 94%, we'll continue current ICU care monitor the patient very closely. 10/11: Patient remains in the intensive care unit. Heart rate running between 49 and 64, blood pressure 152/82, pulse ox 92% on high flow nasal cannula. Repeat blood work reveals WBC 15.4. Sodium 136, BUN 31 creatinine 0.95. Capillary blood glucose running between 119 and an 172. Magnesium 2.5. Liver function tests normal. Blood culture showing no growth at 72 hours. 10/12: Patient remains in the intensive care unit on AirVo 55% and 50 L with pulse ox of 89-93% through the night. Heart rate is running in the 50s, blood pressure 130/78. WBC 16. Capillary blood glucose running between 120s and 178. Patient bothersome congested cough and states he does not feel as well as yesterday. Patient states he was of this year for several hours yesterday. Chest x-ray reveals correlate for pneumonia versus atelectasis. Incentive spirometry will be ordered, patient to be up in a chair today as well. 10/15/2021 Patient showed gradual improvement from air were down to 15 L. However since yesterday's normal change his still on 15 L/m of oxygen. At rest he does not complain from dyspnea, actually he states he feels little better today. However patient does not move around. Cough and is better no other complaints. Other vitals are stable. Labs are unremarkable. Patient kept on the same treatment of 15 mL per hour. 10/17/2021 Patient with severe asthma still on 15 L/m of oxygen with good saturation of 97%. States his breathing is okay while he is sitting in chair but wants he has mild exertion he becomes severely dyspneic. Remains on high-dose Solu-Medrol 60 mg. Home dose of Xarelto. Continue monitoring closely 10/18: Patient states his breathing is better today and he feels stronger. He is still short of breath with activity. Patient has been afebrile, heart rate 59, blood pressure 138/73, pulse ox 95% on 12 L nasal cannula. He is utilizing incentive spirometry and doing well with that. Repeat chest x-ray reveals stable bilateral infiltrate. Patient is followed by pulmonary medicine and continued on Solu-Medrol 60 mg IV every 6 hours, Pulmicort twice daily, Tessalon Perles, Robitussin, DuoNeb treatments 4 times daily and as needed, Singulair. Plan to wean oxygen down and preparation for discharge soon. 10/19: Patient continues to feel that he is breathing better. He does have a croupy cough. He is eating well and had a bowel movement last night. He is now on 9 L nasal cannula with pulse ox of 93%. He's been afebrile, heart rate 66, blood pressure 143/79. D-dimer 0.2. Plan today to continue to wean oxygen down maintaining pulse ox of 90-93%. She is anxious to be discharged home. Probable discharge home tomorrow. 10/20: Patient is seen today sitting up in a recliner and appears to be fairly comfortable. Pulse ox is 92% on 8 L and patient has been decreased to 7 L. He's been afebrile, heart rate 88, blood pressure 141/81, blood pressure 141/81. Patient is continued on Solu-Medrol, cough medicines, Pulmicort and DuoNeb treatments. Patient is followed closely by pulmonary medicine. REVIEW OF SYSTEMS Constitutional: No fever, no chills, no night sweats. No weight change. Rep orts weakness, Reports fatigue Reports lethargy. No daytime sleepiness. EENT: No headache. No blurred vision or double vision, no loss of vision. No loss of Hearing. No nasal drainage or congestion. No epistaxis. No sore throat. Lungs: Reports shortness of breath, improving, Reports cough, Reports sputum production. Reports wheezing. Cardiovascular: No chest pain, no lower extremity edema. No palpitations. No paroxysmal nocturnal dyspnea. No orthopnea. No lightheadedness or dizziness. No syncopal episodes. Abdominal: No abdominal pain. No nausea, vomiting. No diarrhea. No consti pation. No bloody or tarry stools. No loss of appetite. Genitourinary: No dysuria, increased frequency, urgency. No urinary retention. Musculoskeletal: No myalgias. Reports muscle weakness, no gait dysfunction, no frequent falls. No back pain. No neck pain. Integumentary: No wounds, no lesions. No rash or pruritus. No unusual bruising. Neurologic: No aphasia. No facial droop. No change in mentation. No head injury. No headache. No paralysis. No paresthesia. Psychiatric: No depression. No anxiety. No mood swings. Endocrine: No abnormal blood sugars. No weight change. PHYSICAL EXAMINATION Gen: This is an obese 80-year-old male, resting in a recliner, currently on nasal cannula at 7 L, appears to be fairly comfortable at rest. HEENT: Head is atraumatic, normocephalic. Pupils equal, round. Sclerae is anicteric. NECK: Supple. No JVD. No lymphadenopathy. No thyromegaly. LUNGS: Diminished breath sounds bilaterally. Bilateral rhonchi. No intercostal retractions. HEART: First heart sound is depressed, second heart sound is normal, 2/6 sy stolic ejection murmur at the left sternal border. ABDOMEN: Soft. Bowel sounds are present. No masses. No tenderness. EXTREMITIES: No pedal edema. No calf tenderness. NEUROLOGICAL: Patient is awake, alert and oriented x3. Cranial nerves 2 through 12 are grossly intact. ASSESSMENT AND PLAN 1. Acute hypoxic respiratory failure secondary to acute exacerbation of asthma triggered by RSV tracheobronchitis. Patient is seen today on the cardiac stepdown unit, consult with pulmonary medicine appreciated. Continue Pulmicort 1 mg twice daily, DuoNeb treatments 4 times daily and as needed, Robitussin with codeine every 6 hours as needed, Solu-Medrol 60 mg IV every 6 hours as continued, continue incentive spirometry. 2. Acute exacerbation of mild intermittent asthma. Continue as in #1. Continue Singulair 3. Paroxysmal atrial fibrillation. Continue Xarelto 20 mg at bedtime, continue Lopressor 25 mg twice daily. 4. Benign prostatic hypertrophy. Continue Flomax 0.4 mg daily, monitor for urinary retention. 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 6. Hyperlipidemia. Continue low-cholesterol diet and monitor lipid panel. 7. Hypertension and hypertensive cardiovascular disease. Continue patient on metoprolol 25 mg orally twice every day, continue losartan 50 mg every day monitor blood pressure very closely. 8. GI prophylaxis. Protonix 40 mg IV daily. 9. DVT prophylaxis. Xarelto. 10. COVID-19 testing negative. Patient has been hospitalized during a pandemic. DISCHARGE PLAN Home with [facility] Impression and plan of care have been directed as dictated by the signing physician. Melissa Hairston nurse practitioner acting as scribe for signing physician. Objective - Vital Signs Vital signs: Vital Signs Temp 97.8 F 10/20/21 00:07 Pulse 77 10/19/21 21:46 Resp 17 10/19/21 21:46 BP 141/81 10/19/21 21:46 Pulse Ox 92 L 10/19/21 21:46 Intake & Output 10/19/21 10/20/21 10/20/21 18:59 06:59 18:59 Intake Total 708 480 Output Total 200 Balance 508 480 Intake: Oral 708 480 Output: Urine 200 Other: Voiding Method Urinal Urinal - Labs CBC & Chem 7: 10/15/21 05:18 10/15/21 05:15 Labs: Abnormal Lab Results - Last 24 Hours (Table) 10/19/21 10/19/21 10/19/21 Range/Units 11:34 16:33 20:23 POC Glucose (mg/dL) 128 H 114 H 166 H (75-99) mg/dL 10/20/21 Range/Units 07:02 POC Glucose (mg/dL) 122 H (75-99) mg/dL
[2021-10-20] MEDS: IPRATROPIUM-ALBUTEROL 3 ML NEB INHALATION SCH ×4 (09:51→20:04)
[2021-10-20] MEDS: BUDESONIDE 1 MG/2 ML NEBU INHALATION SCH ×2 (09:51→20:04)
[2021-10-20] MEDS: FUROSEMIDE 10 MG/ML 4 ML VIAL IV SCH (11:21)
[2021-10-20] MEDS: POTASSIUM CHLORIDE ER 20 MEQ TAB.ER PO SCH (11:22)
[2021-10-20 12:01] LABS: Glucose,Whole Blood 140 mg/dL (75-99)
--- NOTE | 2021-10-20 13:29 | P.PN ---
Subjective Progress Note Date: 10/20/21 Principal diagnosis: Acute hypoxic respiratory failure On 10/16/2021 patient seen in follow-up in the intensive care unit, he is still coughing, still requiring high flow oxygen, although she feels that this admission overall she is improved. He is currently on 15 L per regular high flow nasal cannula his pulse ox is 90-92%.'s been afebrile, hemodynamically has been stable, he is not on any IV fluids. His chest x-ray today shows chronic bronchial changes and cardiomegaly with worsening left greater than right bibasilar acute infiltrates and/or atelectasis. His labs from yesterday revealed a white blood cell count of 18.1, increased from the previous value a few days ago possibly due to IV steroids. Hemoglobin was stable at 15.8, electrolytes were within normal limits, B1 is 39 creatinine 0.98. Patient was again retested for COVID-19 related to his persistent coughing with a rapid test and was again found to be negative. He remains on IV steroids with Solu-Medrol 60 mg every 6 hours. Patient has been tested with levels of 0.07 and 0.03 not indicative of underlying bacterial infection. Cultures have shown no growth. He states his cough is dry, irritated, lung sounds did not reveal any wheezing, there is some diminished breath sounds with some scattered crackles, no chest pain, no phlegm production. Patient has been getting Tessalon Perles in [facility] to Robitussin cough syrup 200 mg 3 times daily. On 10/20/2021 patient seen in follow-up on medical surgical floor, FiO2 is currently down to 6 L, has been reduced from 8 L earlier this morning, pulse ox on 6 L of oxygen is 93%, overall patient states he is improving, he is coughing less, last night he was able to sleep without any coughing, lung sounds reveal no wheezes, some minimal crackles at the right base, no complaint of chest discomfort, no fever or chills, vital signs have been stable, patient remains on high-dose steroids with Solu-Medrol 60 mg every 6 hours, nebulized bronchodilat ors, he is on oral anticoagulation, and he was given a dose of IV Lasix today in addition to a potassium supplement. blood cultures revealed no growth, his pro calcitonin level was negative, x-ray shows stable bilateral infiltrates and this was on 10/18/2021, overall clinically he is improving, he has mild lower extremity edema, and still requiring high flow oxygen although has shown some improvement in terms of oxygenation and we were able to titrate his FiO2 down. Objective - Vital Signs Vital signs: Vital Signs Temp 98.0 F 10/20/21 10:18 Pulse 73 10/20/21 10:18 Resp 20 10/20/21 10:18 BP 122/75 10/20/21 10:18 Pulse Ox 93 L 10/20/21 12:38 Intake & Output 10/19/21 10/20/21 10/20/21 18:59 06:59 18:59 Intake Total 708 480 Output Total 200 1650 Balance 508 480 -1650 Intake: Oral 708 480 Output: Urine 200 1650 Other: Voiding Method Urinal Urinal - Exam GENERAL EXAM: Alert, pleasant, 80-year-old obese white male, currently on 6 L of oxygen pulse ox is 90-92% comfortable in no apparent distress. HEAD: Normocephalic/atraumatic. EYES: Normal reaction of pupils, equal size. Conjunctiva pink, sclera white. NOSE: Clear with pink turbinates. THROAT: No erythema or exudates. NECK: No masses, no JVD, no thyroid enlargement, no adenopathy. CHEST: No chest wall deformity. Symmetrical expansion. LUNGS: Equal air entry with diffuse crackles, no rhonchi or wheezing CVS: Regular rate and rhythm, normal S1 and S2, no gallops, no murmurs, no rubs ABDOMEN: Soft, nontender. No hepatosplenomegaly, normal bowel sounds, no gu arding or rigidity. EXTREMITIES: No clubbing, mild pretibial edema, chronic venous stasis changes pr esent in bilateral lower extremities no cyanosis, 2+ pulses and upper and lower extremities. MUSCULOSKELETAL: Muscle strength and tone normal. SPINE: No scoliosis or deformity SKIN: No rashes CENTRAL NERVOUS SYSTEM: Alert and oriented -3. No focal deficits, tone is normal in all 4 extremities. PSYCHIATRIC: Alert and oriented -3. Appropriate affect. Intact judgment and insight. - Labs CBC & Chem 7: 10/15/21 05:18 10/15/21 05:15 Labs: Abnormal Lab Results - Last 24 Hours (Table) 10/19/21 10/19/21 10/20/21 Range/Units 16:33 20:23 07:02 POC Glucose (mg/dL) 114 H 166 H 122 H (75-99) mg/dL 10/20/21 Range/Units 11:59 POC Glucose (mg/dL) 140 H (75-99) mg/dL Assessment and Plan Plan: Assessment: #1. Acute hypoxic respiratory failure secondary to acute exacerbation of chronic bronchial asthma, unspecified, triggered by respiratory syncytial virus tracheobronchitis. Procalcitonin level was negative 2, COVID-19 PCR was negative 3 #2. Leukocytosis likely related to IV steroids #3. Paroxysmal atrial fibrillation on Xarelto #4. 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 Lifetime nonsmoker #6. Hearing disorder #7. Morbid obesity Plan: Continue IV steroids Wean FiO2 to maintain O2 saturations at 88% and above Currently Fio2 down to 6 l/min Blood cultures remain negative, probe calcitonin level is negative time 2, COVID-19 PCR negative 3 No acute events overnight Cough improved continue cough syrup and tessalon Will continue to follow, hopefully home in the next 48 hours I performed a history & physical examination of the patient and discussed their management with my nurse practitioner, Marcie Schwarz. I reviewed the nurse practitioner's note and agree with the documented findings and plan of care. L leopoldo sounds are positive for diffuse crackles throughout the lung hall. The findings and the impression was discussed with the patient. I attest to the documentation by the nurse practitioner. Time with Patient: Less than 30
[2021-10-20 16:59] LABS: Glucose,Whole Blood 134 mg/dL (75-99)
[2021-10-20 20:27] LABS: Glucose,Whole Blood 148 mg/dL (75-99)
[2021-10-20] MEDS: TAMSULOSIN 0.4 MG CAP.ER.24H PO SCH (21:10)
[2021-10-20] MEDS: ACETAMINOPHEN TAB 325 MG TAB PO PRN (21:11)
[2021-10-20] MEDS: RIVAROXABAN 20 MG TAB PO SCH (21:11)
[2021-10-20] MEDS: MONTELUKAST 10 MG TAB PO SCH (21:11)
[2021-10-21] MEDS: methylPREDNISolone SOD SUCCI 125 MG/2 ML VIAL IV SCH ×2 (05:39→12:10)
[2021-10-21 07:21] LABS: Glucose,Whole Blood 104 mg/dL (75-99)
[2021-10-21] MEDS: INSULIN ASPART (NovoLOG) 100 UNIT/ML VIAL SQ SCH ×4 (07:49→21:01)
[2021-10-21] MEDS: IPRATROPIUM-ALBUTEROL 3 ML NEB INHALATION SCH ×4 (07:59→19:42)
[2021-10-21] MEDS: BUDESONIDE 1 MG/2 ML NEBU INHALATION SCH ×2 (07:59→19:42)
[2021-10-21] MEDS: METOPROLOL TARTRATE 25 MG TAB PO SCH ×2 (08:11→21:05)
[2021-10-21] MEDS: FOLIC ACID 1 MG TAB PO SCH (08:11)
[2021-10-21] MEDS: FUROSEMIDE 10 MG/ML 4 ML VIAL IV SCH (08:11)
[2021-10-21] MEDS: guaiFENesin SYRUP 100MG/5ML 200 MG/10 ML CUP PO SCH ×3 (08:11→21:05)
[2021-10-21] MEDS: MULTIVITAMINS, THERA 1 EACH TAB PO SCH (08:11)
[2021-10-21] MEDS: PANTOPRAZOLE 40 MG TABLET PO SCH (08:11)
[2021-10-21] MEDS: CYANOCOBALAMIN 500 MCG TAB PO SCH (08:12)
[2021-10-21] MEDS: POTASSIUM CHLORIDE ER 20 MEQ TAB.ER PO SCH (08:12)
[2021-10-21] MEDS: LOSARTAN 50 MG TAB PO SCH (08:12)
[2021-10-21 12:01] LABS: Glucose,Whole Blood 118 mg/dL (75-99)
--- NOTE | 2021-10-21 13:23 | P.PN ---
Subjective Progress Note Date: 10/21/21 HISTORY OF PRESENT ILLNESS This is a 80-year-old male with past medical history of hypertension, paroxysmal atrial fibrillation on Xarelto, benign prostatic hypertrophy, hiatal hernia, hereditary factor VIII deficiency, hyperlipidemia. Patient presented to the office yesterday due to shortness of breath cough, exertional dyspnea and was found to have a pulse ox of 84% and patient was sent to [facility] emergency [place] for further evaluation and treatment. Patient was placed on BiPAP overnight and has been transitioned to nasal cannula. CBC was unremarkable. Electrolytes and renal function normal. Blood sugar 176. Liver function tests were normal. ProCalcitonin 0.07. Magnesium 2.0. Lactic acid 1.5. Coronal virus PCR not detected. Chest x-ray reveals patchy bilateral infiltrates correlate for pneumonia. Prominence of descending aorta. Aneurysm not excluded. Patient has a drop in his pulse ox on a 60% and was transferred to the ICU and consult/seen by Dr. Palafox. 10/09: Patient sitting up in bed he is requiring more oxygen today he's been satting about 93-94%, he continued to have occasional cough, no phlegm production, he has no headache, he has no chest pain, he has pain, nausea vomiting or diarrhea, he seems to be tolerating treatment very well, patient continues to be somewhat hypertensive, we will start the patient on losartan 50 mg once every other blood pressures not improving in the next 24 hours. 10/10: Patient continues to be hypotensive I will add losartan 50 mg once every day, continue metoprolol 25 mg twice every day, continue patient's in the ICU continue patient on current treatment plan, he continues to require quite a bit of oxygen his saturation is about 94%, we'll continue current ICU care monitor the patient very closely. 10/11: Patient remains in the intensive care unit. Heart rate running between 49 and 64, blood pressure 152/82, pulse ox 92% on high flow nasal cannula. Repeat blood work reveals WBC 15.4. Sodium 136, BUN 31 creatinine 0.95. Capillary blood glucose running between 119 and an 172. Magnesium 2.5. Liver function tests normal. Blood culture showing no growth at 72 hours. 10/12: Patient remains in the intensive care unit on AirVo 55% and 50 L with pulse ox of 89-93% through the night. Heart rate is running in the 50s, blood pressure 130/78. WBC 16. Capillary blood glucose running between 120s and 178. Patient bothersome congested cough and states he does not feel as well as yesterday. Patient states he was of this year for several hours yesterday. Chest x-ray reveals correlate for pneumonia versus atelectasis. Incentive spirometry will be ordered, patient to be up in a chair today as well. 10/15/2021 Patient showed gradual improvement from air were down to 15 L. However since yesterday's normal change his still on 15 L/m of oxygen. At rest he does not complain from dyspnea, actually he states he feels little better today. However patient does not move around. Cough and is better no other complaints. Other vitals are stable. Labs are unremarkable. Patient kept on the same treatment of 15 mL per hour. 10/17/2021 Patient with severe asthma still on 15 L/m of oxygen with good saturation of 97%. States his breathing is okay while he is sitting in chair but wants he has mild exertion he becomes severely dyspneic. Remains on high-dose Solu-Medrol 60 mg. Home dose of Xarelto. Continue monitoring closely 10/18: Patient states his breathing is better today and he feels stronger. He is still short of breath with activity. Patient has been afebrile, heart rate 59, blood pressure 138/73, pulse ox 95% on 12 L nasal cannula. He is utilizing incentive spirometry and doing well with that. Repeat chest x-ray reveals stable bilateral infiltrate. Patient is followed by pulmonary medicine and continued on Solu-Medrol 60 mg IV every 6 hours, Pulmicort twice daily, Tessalon Perles, Robitussin, DuoNeb treatments 4 times daily and as needed, Singulair. Plan to wean oxygen down and preparation for discharge soon. 10/19: Patient continues to feel that he is breathing better. He does have a croupy cough. He is eating well and had a bowel movement last night. He is now on 9 L nasal cannula with pulse ox of 93%. He's been afebrile, heart rate 66, blood pressure 143/79. D-dimer 0.2. Plan today to continue to wean oxygen down maintaining pulse ox of 90-93%. She is anxious to be discharged home. Probable discharge home tomorrow. 10/20: Patient is seen today sitting up in a recliner and appears to be fairly comfortable. Pulse ox is 92% on 8 L and patient has been decreased to 7 L. He's been afebrile, heart rate 88, blood pressure 141/81, blood pressure 141/81. Patient is continued on Solu-Medrol, cough medicines, Pulmicort and DuoNeb treatments. Patient is followed closely by pulmonary medicine. 10/21: Patient is seen in follow[facility]up on the [facility] floor. He is currently down to 1-1/2 L nasal cannula. His pulse ox is 92%. He's been afebrile, heart rate 80, blood pressure 149/81. Patient has decreased lower extremity edema. Blood sugars are running between 104 and 148. Anticipate discharge home tomorrow. REVIEW OF SYSTEMS Constitutional: No fever, no chills, no night sweats. No weight change. Reports weakness, Reports fatigue Reports lethargy. No daytime sleepiness. EENT: No headache. No blurred vision or double vision, no loss of vision. No loss of Hearing. No nasal drainage or congestion. No epistaxis. No sore throat. Lungs: Reports shortness of breath, improving, Reports cough, Reports sputum production. Reports wheezing. Cardiovascular: No chest pain, no lower extremity edema. No palpitations. No paroxysmal nocturnal dyspnea. No orthopnea. No lightheadedness or dizziness. No syncopal episodes. Abdominal: No abdominal pain. No nausea, vomiting. No diarrhea. No constipation. No bloody or tarry stools. No loss of appetite. Genitourinary: No dysuria, increased frequency, urgency. No urinary retention. Musculoskeletal: No myalgias. Reports muscle weakness, no gait dysfunction, no frequent falls. No back pain. No neck pain. Integumentary: No wounds, no lesions. No rash or pruritus. No unusual bruising. Neurologic: No aphasia. No facial droop. No change in mentation. No head injury. No headache. No paralysis. No paresthesia. Psychiatric: No depression. No anxiety. Endocrine: No abnormal blood sugars. No weight change. PHYSICAL EXAMINATION Gen: This is an obese 80-year-old male, resting in a recliner, currently on nasal cannula at 7 L, appears to be fairly comfortable at rest. HEENT: Head is atraumatic, normocephalic. Pupils equal, round. Sclerae is anicteric. NECK: Supple. No JVD. No lymphadenopathy. No thyromegaly. LUNGS: Diminished breath sounds bilaterally. Bilateral rhonchi. No intercostal retractions. HEART: First heart sound is depressed, second heart sound is normal, 2/6 systolic ejection murmur at the left sternal border. ABDOMEN: Soft. Bowel sounds are present. No masses. No tenderness. EXTREMITIES: No pedal edema. No calf tenderness. NEUROLOGICAL: Patient is awake, alert and oriented x3. Cranial nerves 2 through 12 are grossly intact. ASSESSMENT AND PLAN 1. Acute hypoxic respiratory failure secondary to acute exacerbation of asthma triggered by RSV tracheobronchitis. Patient is seen today on the cardiac stepdown unit, consult with pulmonary medicine appreciated. Continue Pulmicort 1 mg twice daily, DuoNeb treatments 4 times daily and as needed, Robitussin with codeine every 6 hours as needed, Solu-Medrol crease to 40 mg every 8 hours, continue incentive spirometry. 2. Acute exacerbation of mild intermittent asthma. Continue as in #1. Continue Singulair 3. Paroxysmal atrial fibrillation. Continue Xarelto 20 mg at bedtime, continue Lopressor 25 mg twice daily. 4. Benign prostatic hypertrophy. Continue Flomax 0.4 mg daily, monitor for urinary retention. 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 6. Hyperlipidemia. Continue low-cholesterol diet and monitor lipid panel. 7. Hypertension and hypertensive cardiovascular disease. Continue patient on metoprolol 25 mg orally twice every day, continue losartan 50 mg every day monitor blood pressure very closely. 8. GI prophylaxis. Protonix 40 mg IV daily. 9. DVT prophylaxis. Xarelto. 10. COVID-19 testing negative. Patient has been hospitalized during a pandemic. DISCHARGE PLAN Home with [facility] on Monday Impression and plan of care have been directed as dictated by the signing physician. Melissa Hairston nurse practitioner acting as scribe for signing physician. Objective - Vital Signs Vital signs: Vital Signs Temp 98.3 F 10/21/21 05:46 Pulse 80 10/21/21 08:10 Resp 17 10/21/21 05:46 BP 149/81 10/21/21 05:46 Pulse Ox 92 L 10/21/21 06:22 Intake & Output 10/20/21 10/21/21 10/21/21 18:59 06:59 18:59 Output Total 1650 Balance -1650 Output: Urine 1650 Other: # Voids 2 - Labs CBC & Chem 7: 10/15/21 05:18 10/15/21 05:15 Labs: Abnormal Lab Results - Last 24 Hours (Table) 10/20/21 10/20/21 10/20/21 Range/Units 11:59 16:58 20:26 POC Glucose (mg/dL) 140 H 134 H 148 H (75-99) mg/dL 10/21/21 Range/Units 07:20 POC Glucose (mg/dL) 104 H (75-99) mg/dL
--- NOTE | 2021-10-21 14:01 | P.PN ---
Subjective Progress Note Date: 10/21/21 10/21/2021, the patient is on 2 L of oxygen by nasal cannula. No new complaints. He is recovering from his RSV tracheobronchitis. Using incentive spirometer. Continues to be on bronchodilators. Continues to be on long-term articulation with Xarelto. No other new complaints otherwise for now. Am bulating. No nausea or vomiting. Possible discharge home along with home oxygen Objective - Vital Signs Vital signs: Vital Signs Temp 98.6 F 10/21/21 10:00 Pulse 78 10/21/21 12:14 Resp 16 10/21/21 10:00 BP 132/81 10/21/21 10:00 Pulse Ox 95 10/21/21 10:00 Intake & Output 10/20/21 10/21/21 10/21/21 18:59 06:59 18:59 Output Total 1650 1300 Balance -1650 -1300 Output: Urine 1650 1300 Other: Voiding Method Urinal # Voids 2 - Exam GENERAL EXAM: Alert, pleasant, 80-year-old obese white male, currently on 6 L of oxygen pulse ox is 90-92% comfortable in no apparent distress. HEAD: Normocephalic/atraumatic. EYES: Normal reaction of pupils, equal size. Conjunctiva pink, sclera white. NOSE: Clear with pink turbinates. THROAT: No erythema or exudates. NECK: No masses, no JVD, no thyroid enlargement, no adenopathy. CHEST: No chest wall deformity. Symmetrical expansion. LUNGS: Equal air entry with diffuse crackles, no rhonchi or wheezing CVS: Regular rate and rhythm, normal S1 and S2, no gallops, no murmurs, no rubs ABDOMEN: Soft, nontender. No hepatosplenomegaly, normal bowel sounds, no guarding or rigidity. EXTREMITIES: No clubbing, mild pretibial edema, chronic venous stasis changes present in bilateral lower extremities no cyanosis, 2+ pulses and upper and lower extremities. MUSCULOSKELETAL: Muscle strength and tone normal. SPINE: No scoliosis or deformity SKIN: No rashes CENTRAL NERVOUS SYSTEM: Alert and oriented -3. No focal deficits, tone is normal in all 4 extremities. PSYCHIATRIC: Alert and oriented -3. Appropriate affect. Intact judgment and insight. - Labs CBC & Chem 7: 10/15/21 05:18 10/15/21 05:15 Labs: Abnormal Lab Results - Last 24 Hours (Table) 10/20/21 10/20/21 10/21/21 Range/Units 16:58 20:26 07:20 POC Glucose (mg/dL) 134 H 148 H 104 H (75-99) mg/dL 10/21/21 Range/Units 12:00 POC Glucose (mg/dL) 118 H (75-99) mg/dL Assessment and Plan Plan: #1. Acute hypoxic respiratory failure secondary to acute exacerbation of chronic bronchial asthma, unspecified, triggered by respiratory syncytial virus tracheobronchitis. Procalcitonin level was negative 2, COVID-19 PCR was negative 3, clinically improving and the patient has been weaned down to 2 L of oxygen by nasal cannula. Using incentive spirometer. No new complaints otherwise for now. Continues to be on same treatment including steroids and bronchodilators. #2. Leukocytosis likely related to IV steroids #3. Paroxysmal atrial fibrillation on Xarelto #4. 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 Lifetime nonsmoker #6. Hearing disorder #7. Morbid obesity Plan: Discharge the patient home on a prednisone burst taper with the next 24 hours. Oxidation is improved and the patient is currently on 2 L. Continue Xarelto. Continue bronchodilators. Possible home tomorrow.
[2021-10-21 16:53] LABS: Glucose,Whole Blood 109 mg/dL (75-99)
[2021-10-21] MEDS: methylPREDNISolone SOD SUCCI 40 MG/ML 1 ML VIAL IV SCH ×2 (17:03→23:39)
[2021-10-21 20:47] LABS: Glucose,Whole Blood 127 mg/dL (75-99)
[2021-10-21] MEDS: RIVAROXABAN 20 MG TAB PO SCH (21:05)
[2021-10-21] MEDS: TAMSULOSIN 0.4 MG CAP.ER.24H PO SCH (21:05)
[2021-10-21] MEDS: MONTELUKAST 10 MG TAB PO SCH (21:05)
[2021-10-22 04:38] VITALS: BP 125/72; RESP 18; TEMP 97.1
[2021-10-22 07:03] LABS: Glucose,Whole Blood 111 mg/dL (75-99)
--- NOTE | 2021-10-22 08:10 | P.DS ---
Providers Date of admission: 10/07/21 15:26 Expected date of discharge: 10/22/21 Attending physician: Buzz Zimmerman Consults: 10/07/21 20:28 Consult Physician Routine Consulting Provider: Jessica Palafox Consult Reason/Comments: upgrade to icu Do you want consulting provider notified?: Yes Primary care physician: Buzz Zimmerman Hospital Course: HISTORY OF PRESENT ILLNESS This is a 80-year-old male with past medical history of hypertension, paroxysmal atrial fibrillation on Xarelto, benign prostatic hypertrophy, hiatal hernia, hereditary factor VIII deficiency, hyperlipidemia. Patient presented to the office yesterday due to shortness of breath cough, exertional dyspnea and was found to have a pulse ox of 84% and patient was sent to [facility] for further evaluation and treatment. Patient was placed on BiPAP overnight and has been transitioned to nasal cannula. CBC was unremarkable. Electrolytes and renal function normal. Blood sugar 176. Liver function tests were normal. ProCalcitonin 0.07. Magnesium 2.0. Lactic acid 1.5. Coronal virus PCR not detected. Chest x-ray reveals patchy bilateral infiltrates correlate for pneumonia. Prominence of descending aorta. Aneurysm not excluded. Patient has a drop in his pulse ox on a 60% and was transferred to the ICU and consult/seen by Dr. Palafox. 10/09: Patient sitting up in bed he is requiring more oxygen today he's been satting about 93-94%, he continued to have occasional cough, no phlegm production, he has no headache, he has no chest pain, he has pain, nausea vomiting or diarrhea, he seems to be tolerating treatment very well, patient continues to be somewhat hypertensive, we will start the patient on losartan 50 mg once every other blood pressures not improving in the next 24 hours. 10/10: Patient continues to be hypotensive I will add losartan 50 mg once every day, continue metoprolol 25 mg twice every day, continue patient's in the ICU continue patient on current treatment plan, he continues to require quite a bit of oxygen his saturation is about 94%, we'll continue current ICU care monitor the patient very closely. 10/11: Patient remains in the intensive care unit. Heart rate running between 49 and 64, blood pressure 152/82, pulse ox 92% on high flow nasal cannula. Repeat blood work reveals WBC 15.4. Sodium 136, BUN 31 creatinine 0.95. Capillary blood glucose running between 119 and an 172. Magnesium 2.5. Liver function tests normal. Blood culture showing no growth at 72 hours. 10/12: Patient remains in the intensive care unit on AirVo 55% and 50 L with pulse ox of 89-93% through the night. Heart rate is running in the 50s, blood pressure 130/78. WBC 16. Capillary blood glucose running between 120s and 178. Patient bothersome congested cough and states he does not feel as well as yesterday. Patient states he was of this year for several hours yesterday. Chest x-ray reveals correlate for pneumonia versus atelectasis. Incentive spirometry will be ordered, patient to be up in a chair today as well. 10/15/2021 Patient showed gradual improvement from air were down to 15 L. However since yesterday's normal change his still on 15 L/m of oxygen. At rest he does not complain from dyspnea, actually he states he feels little better today. However patient does not move around. Cough and is better no other complaints. Other vitals are stable. Labs are unremarkable. Patient kept on the same treatment of 15 mL per hour. 10/17/2021 Patient with severe asthma still on 15 L/m of oxygen with good saturation of 97%. States his breathing is okay while he is sitting in chair but wants he has mild exertion he becomes severely dyspneic. Remains on high-dose Solu-Medrol 60 mg. Home dose of Xarelto. Continue monitoring closely 10/18: Patient states his breathing is better today and he feels stronger. He is still short of breath with activity. Patient has been afebrile, heart rate 59, blood pressure 138/73, pulse ox 95% on 12 L nasal cannula. He is utilizing incentive spirometry and doing well with that. Repeat chest x-ray reveals stable bilateral infiltrate. Patient is followed by pulmonary medicine and continued on Solu-Medrol 60 mg IV every 6 hours, Pulmicort twice daily, Tessalon Perles, Robitussin, DuoNeb treatments 4 times daily and as needed, Singulair. Plan to wean oxygen down and preparation for discharge soon. 10/19: Patient continues to feel that he is breathing better. He does have a croupy cough. He is eating well and had a bowel movement last night. He is now on 9 L nasal cannula with pulse ox of 93%. He's been afebrile, heart rate 66, blood pressure 143/79. D-dimer 0.2. Plan today to continue to wean oxygen down maintaining pulse ox of 90-93%. She is anxious to be discharged home. Probable discharge home tomorrow. 10/20: Patient is seen today sitting up in a recliner and appears to be fairly comfortable. Pulse ox is 92% on 8 L and patient has been decreased to 7 L. He's been afebrile, heart rate 88, blood pressure 141/81, blood pressure 141/81. Patient is continued on Solu-Medrol, cough medicines, Pulmicort and DuoNeb treatments. Patient is followed closely by pulmonary medicine. 10/21: Patient is [facility] floor. He is currently down to 1-1/2 L nasal cannula. His pulse ox is 92%. He's been afebrile, heart rate 80, blood pressure 149/81. Patient has decreased lower extremity edema. Blood sugars are running between 104 and 148. Anticipate discharge home tomorrow. 10/22: Patient is now off oxygen therapy with pulse ox of 95%. He's been afebrile, heart rate 50s to 80s, blood pressure 125/72. Patient's breathing status is improved. We will plan to send the patient home on prednisone taper, DuoNeb and Symbicort and continue Lasix. Patient will be discharged today once all arrangements are completed. ASSESSMENT AND PLAN 1. Acute hypoxic respiratory failure secondary to acute exacerbation of asthma triggered by RSV tracheobronchitis. 2. Acute exacerbation of mild intermittent asthma and possible underlying COPD. 3. Paroxysmal atrial fibrillation. 4. Benign prostatic hypertrophy. 5. Hereditary factor VIII deficiency. 6. Hyperlipidemia. 7. Hypertension and hypertensive cardiovascular disease. 8. COVID-19 testing negative. Patient has been hospitalized during a pandemic. DISCHARGE PLAN Home with [facility] Greater than 35 minutes was utilized and coordinating patient's discharge. Impression and plan of care have been directed as dictated by the signing physician. Melissa Hairston nurse practitioner acting as scribe for signing physician. Patient Condition at Discharge: Stable Plan - Discharge Summary Discharge Rx Participant: No New Discharge Prescriptions: New Furosemide [Lasix] 40 mg PO DAILY #30 tablet predniSONE 0 mg PO DIRECTED #30 tab guaiFENesin SYRUP 100MG/5ML [Robitussin] 200 mg PO TID ml Montelukast [Singulair] 10 mg PO HS #30 tab Benzonatate [Tessalon Perles] 200 mg PO TID PRN #30 cap PRN Reason: Cough Losartan [Cozaar] 50 mg PO DAILY #30 tab Ipratropium-Albuterol Nebulize [Duoneb 0.5 mg-3 mg/3 ml Soln] 3 ml INHALATION TID #90 ml Potassium Chloride ER [K-Dur 20] 20 meq PO DAILY #30 tablet Pantoprazole [Protonix] 40 mg PO AC-BRKFST #30 tab Budesonide-Formot 160-4.5 Mcg [Symbicort 160-4.5 Mcg Inhaler] 2 puff INHALATION BID #10.2 gm Continue Metoprolol Tartrate 25 mg PO BID Rivaroxaban [Xarelto] 20 mg PO HS Multivitamins, Thera [Multivitamin (formulary)] 1 tab PO DAILY Tamsulosin HCl [Flomax] 0.4 mg PO HS Cyanocobalamin (Vitamin B-12) [Vitamin B-12] 2,000 mcg PO DAILY Folic Acid 0.4 mg PO DAILY Albuterol Sulfate [Albuterol Sulfate Hfa] 2 puff PO RT-Q6H PRN PRN Reason: Shortness Of Breath Discontinued Losartan Potassium [Cozaar] 25 mg PO DIRECTED methylPREDNISolone [Medrol Dose Pack] See Taper PO DIRECTED Amiodarone [Cordarone] 100 mg PO DIRECTED Azithromycin [Zithromax Z-pack (6 tabs)] See Taper PO DIRECTED Discharge Medication List Cyanocobalamin (Vitamin B-12) [Vitamin B-12] 2,000 mcg PO DAILY 05/29/18 [History] Metoprolol Tartrate 25 mg PO BID 05/29/18 [History] Multivitamins, Thera [Multivitamin (formulary)] 1 tab PO DAILY 05/29/18 [History] Rivaroxaban [Xarelto] 20 mg PO HS 05/29/18 [History] Tamsulosin HCl [Flomax] 0.4 mg PO HS 05/29/18 [History] Albuterol Sulfate [Albuterol Sulfate Hfa] 2 puff PO RT-Q6H PRN 10/07/21 [History] Folic Acid 0.4 mg PO DAILY 10/07/21 [History] Benzonatate [Tessalon Perles] 200 mg PO TID PRN #30 cap 10/22/21 [Rx] Budesonide-Formot 160-4.5 Mcg [Symbicort 160-4.5 Mcg Inhaler] 2 puff INHALATION BID #10.2 gm 10/22/21 [Rx] Furosemide [Lasix] 40 mg PO DAILY #30 tablet 10/22/21 [Rx] Ipratropium-Albuterol Nebulize [Duoneb 0.5 mg-3 mg/3 ml Soln] 3 ml INHALATION TID #90 ml 10/22/21 [Rx] Losartan [Cozaar] 50 mg PO DAILY #30 tab 10/22/21 [Rx] Montelukast [Singulair] 10 mg PO HS #30 tab 10/22/21 [Rx] Pantoprazole [Protonix] 40 mg PO AC-BRKFST #30 tab 10/22/21 [Rx] Potassium Chloride ER [K-Dur 20] 20 meq PO DAILY #30 tablet 10/22/21 [Rx] guaiFENesin SYRUP 100MG/5ML [Robitussin] 200 mg PO TID ml 10/22/21 [Rx] predniSONE 0 mg PO DIRECTED #30 tab 10/22/21 [Rx] Follow up Appointment(s)/Referral(s): Jessica Palafox MD [STAFF PHYSICIAN] - 11/11/21 2:45 pm (Appointment with Bere Borja ) Buzz Zimmerman MD [Primary Care Provider] - 10/29/21 12:15 pm Discharge/Stand Alone Forms: Personal Piano In[employer] Discharge Disposition: HOME SELF-CARE
[2021-10-22] MEDS: INSULIN ASPART (NovoLOG) 100 UNIT/ML VIAL SQ SCH (08:48)
[2021-10-22] MEDS: methylPREDNISolone SOD SUCCI 40 MG/ML 1 ML VIAL IV SCH (08:59)
[2021-10-22] MEDS: FUROSEMIDE 10 MG/ML 4 ML VIAL IV SCH (08:59)
[2021-10-22] MEDS: CYANOCOBALAMIN 500 MCG TAB PO SCH (09:00)
[2021-10-22] MEDS: METOPROLOL TARTRATE 25 MG TAB PO SCH (09:00)
[2021-10-22] MEDS: MULTIVITAMINS, THERA 1 EACH TAB PO SCH (09:00)
[2021-10-22] MEDS: guaiFENesin SYRUP 100MG/5ML 200 MG/10 ML CUP PO SCH (09:00)
[2021-10-22] MEDS: PANTOPRAZOLE 40 MG TABLET PO SCH (09:00)
[2021-10-22] MEDS: POTASSIUM CHLORIDE ER 20 MEQ TAB.ER PO SCH (09:00)
[2021-10-22] MEDS: LOSARTAN 50 MG TAB PO SCH (09:00)
[2021-10-22] MEDS: FOLIC ACID 1 MG TAB PO SCH (09:00)
[2021-10-22] MEDS: IPRATROPIUM-ALBUTEROL 3 ML NEB INHALATION SCH (09:20)
[2021-10-22] MEDS: BUDESONIDE 1 MG/2 ML NEBU INHALATION SCH (09:21)
[2021-10-22 09:35] VITALS: PULSE 90
== END 2021-10-22 11:11 | disposition home or self-care (01) | DRG 202 ==
LOC: EC 12:11 → 4SSUR 15:26 → 2SICU 20:50 → 4SSUR 10-16 16:03 → 6NMEDSUR 10-22 05:48 → 4SSUR 10-22 05:52
PROVIDERS: ADMIT Internal Medicine; ATTEND Internal Medicine
PROC: 5A09357 Assistance with Respiratory Ventilation, Less than 24 Consecutive Hours, Continuous Positive Airway Pressure (ICD-10-PCS; principal; 2021-10-07)
PROC: 5A0955A Assistance with Respiratory Ventilation, Greater than 96 Consecutive Hours, High Flow/Velocity Cannula (ICD-10-PCS; 2021-10-07)
DX: J20.5 Acute bronchitis due to respiratory syncytial virus (principal); J96.01 Acute respiratory failure with hypoxia; D66 Hereditary factor VIII deficiency; J45.21 Mild intermittent asthma with (acute) exacerbation; J44.0 Chronic obstructive pulmonary disease with (acute) lower respiratory infection; J44.1 Chronic obstructive pulmonary disease with (acute) exacerbation; I95.9 Hypotension, unspecified; I11.9 Hypertensive heart disease without heart failure; I48.0 Paroxysmal atrial fibrillation; E66.01 Morbid (severe) obesity due to excess calories; Z20.822 Contact with and (suspected) exposure to COVID-19; D72.829 Elevated white blood cell count, unspecified; T38.0X5A Adverse effect of glucocorticoids and synthetic analogues, initial encounter; Z68.35 Body mass index [BMI] 35.0-35.9, adult; E78.5 Hyperlipidemia, unspecified; N40.0 Benign prostatic hyperplasia without lower urinary tract symptoms; H91.90 Unspecified hearing loss, unspecified ear; M19.90 Unspecified osteoarthritis, unspecified site; Z79.01 Long term (current) use of anticoagulants; Z79.899 Other long term (current) drug therapy; Z86.718 Personal history of other venous thrombosis and embolism; Z87.01 Personal history of pneumonia (recurrent); Z87.442 Personal history of urinary calculi; Z97.4 Presence of external hearing-aid; Z96.653 Presence of artificial knee joint, bilateral; Z87.19 Personal history of other diseases of the digestive system; Z87.891 Personal history of nicotine dependence; Z98.890 Other specified postprocedural states; Z71.3 Dietary counseling and surveillance; Z91.013 Allergy to seafood; Z82.3 Family history of stroke; Z82.49 Family history of ischemic heart disease and other diseases of the circulatory system
CPT/HCPCS: 36415; 36600; 71045; 71046; 80048; 80053; 82805; 83605; 83735; 84145; 85025; 85027; 85379; 85610; 85730; 87040; 87635; 93005; 94640; 94660; 94760; 99285

== ENCOUNTER → 2021-12-15 | Outpatient (CLI) | payer MEDICARE ==
--- NOTE | 2021-12-15 13:50 | CT ---
EXAMINATION TYPE: CT angio lower extremity LT DATE OF EXAM: 12/15/2021 1:36 PM COMPARISON: None. HISTORY: contusion of lt LE CT DLP: 993.3 mGycm Automated exposure control for dose reduction was used. TECHNIQUE: Performed with IV Contrast, patient injected with 100 mL of Isovue 300. 3D reconstructed images are created on an independent workstation and reviewed.. Imaging performed of the pelvis extending through the bilateral lower extremities. FINDINGS: Vascular: Mild peripheral plaque in the distal abdominal aorta. Minimal plaque in the iliac arteries bilaterally without significant stenosis. Mild peripheral plaque left common femoral artery. No obvio us significant stenosis on the right. Exam is tailored to the left lower extremity with satisfactory bifurcation into superficial and deep femoral arteries. There is no significant plaque or stenosis al cecy the left superficial femoral artery extending into the popliteal artery. Satisfactory bifurcation and trifurcation below the knee joint. Good three-vessel flow mid leg similar drop the left side. Go od 2 vessel flow ankle level similar to the opposite right side. Suboptimal evaluation of left knee j oint due to streak artifact from surgical change. Other: There is susceptibility artifact from bilateral knee arthroplasty noted. Below the knees there is moderate diffuse subcutaneous edema bilaterally fairly symmetric in appearance. Some improvement in the distal leg level bilaterally is present with more moderate edema and swelling in the ankles an d feet bilaterally symmetric in appearance. No well-formed fluid collection or hematoma identified bi laterally. No suspicious bowel dilatation. Normal-appearing appendix is seen. Prostate gland is upper limits of normal in size. There are prominent but subcentimeter bilateral groin lymph nodes. Muscle bulk is sym metric and maintained bilaterally. IMPRESSION: As above.
== END | disposition home or self-care (01) ==
LOC: RADCTMAIN 12:37
PROVIDERS: ATTEND Internal Medicine
DX: S80.12XA Contusion of left lower leg, initial encounter (principal); I70.202 Unspecified atherosclerosis of native arteries of extremities, left leg; I70.0 Atherosclerosis of aorta; M79.89 Other specified soft tissue disorders; X58.XXXA Exposure to other specified factors, initial encounter
CPT/HCPCS: 73706; Q9967

== ENCOUNTER → 2022-05-27 | Outpatient (CLI) | payer MEDICARE ==
--- NOTE | 2022-05-28 07:34 | CT ---
EXAMINATION TYPE: CT abdomen pelvis w con DATE OF EXAM: 05/27/2022 COMPARISON: None. HISTORY: L hip pain, constipation, contusion of abdominal wall/psoas region CT DLP: 2041.10 mGycm, Automated Exposure Control for Dose Reduction was Utilized. CONTRAST: CT scan of the abdomen and pelvis is performed with oral and with IV Contrast, patient injected with 2041.10 mL of Isovue 370. FINDINGS: LUNG BASES: Elevated left hemidiaphragm. Mild cardiomegaly. There is 7 mm calcified nodule or benign granuloma in the posterior left lung base axial image 12. LIVER/GB: Dependent density in the gallbladder consistent with small stones and/or sludge.. No surrou nding fat stranding. No biliary dilatation. PANCREAS: No significant abnormality is seen. SPLEEN: No significant abnormality is seen. ADRENALS: No significant abnormality is seen. KIDNEYS: Incidental simple appearing 1.5 cm thin-walled cyst lower pole of the left kidney series 6 i mage 46.. There are 2-3 small right renal calculi coronal image 68 measuring up to 5 mm in size. Ther e is 2 to 3 mm nonobstructing calculus left kidney coronal image 64. There is symmetric cortical medu llary uptake and excretion without hydronephrosis seen bilaterally. BOWEL: Surgical changes at level of diaphragmatic hiatus. And oral contrast does not reach level of d istal ileum making evaluation of distal bowel slightly suboptimal. No suspicious small or large bowel dilatation is seen. PROSTATE/SEMINAL VESICLES: Prostate gland upper limits of normal in size. LYMPH NODES: No greater than 1cm abdominal or pelvic lymph nodes are appreciated. Prominent borderli ne enlarged bilateral groin lymph nodes OSSEOUS STRUCTURES: Moderate multilevel spurring in the thoracolumbar spine. Multilevel facet arthrop athy in the mid to lower lumbar spine. OTHER: Mild calcified plaque of the aorta extends into branch vessels. Moderate to large size umbilic al hernia containing fat and suspected some fluid. IMPRESSION: No bowel obstruction. No significant colonic fecal prominence. No suspicious ventral wall hernia. Moderate to large size umbilical hernia is present. Bilateral nonobstructing renal calculi a re noted. Small stones and/or gallbladder sludge. No CT evidence for acute cholecystitis.
== END | disposition home or self-care (01) ==
LOC: RADCTMAIN 17:19
PROVIDERS: ATTEND Internal Medicine
DX: K42.9 Umbilical hernia without obstruction or gangrene (principal); N20.0 Calculus of kidney; K80.20 Calculus of gallbladder without cholecystitis without obstruction
CPT/HCPCS: 74177; Q9967

== ENCOUNTER 2022-06-02 12:21 | Inpatient (IN) | payer MEDICARE ==
[2022-06-02] MEDS ORDERED: ACETAMINOPHEN TAB 325 MG TAB PO PRN (13:35)
[2022-06-02] MEDS ORDERED: NALOXONE 0.4 MG/ML 1 ML VIAL IV PRN (13:35)
--- NOTE | 2022-06-02 13:40 | ED ---
Lower Extremity Injury HPI - General Chief Complaint: Extremity Injury, Lower Stated Complaint: Procedure 06/03 Hip Time Seen by Provider: 06/02/22 12:24 Source: patient, RN notes reviewed Mode of arrival: wheelchair Limitations: no limitations - History of Present Illness Initial Comments: This a 81-year-old male presents emergency Department for admission for left hip surgery. Patient still having left hip pain for a while is found to have a subcapital hip fracture on MRI. Patient is scheduled for total hip replacement tomorrow. Patient denies any blood thinners denies any head injury no chest pain or shortness breath no abdominal pain. - Related Data Home Medications Medication Instructions Recorded Confirmed Cyanocobalamin (Vitamin B-12) 2,000 mcg PO DAILY 05/29/18 06/02/22 [Vitamin B-12] Metoprolol Tartrate 25 mg PO BID 05/29/18 06/02/22 Multivitamins, Thera [Multivitamin 1 tab PO DAILY 05/29/18 06/02/22 (formulary)] Rivaroxaban [Xarelto] 20 mg PO DIRECTED 05/29/18 06/02/22 Tamsulosin HCl [Flomax] 0.4 mg PO HS 05/29/18 06/02/22 Albuterol Sulfate [Albuterol 1 puff PO RT-Q4H PRN 10/07/21 06/02/22 Sulfate Hfa] Folic Acid 0.4 mg PO DAILY 10/07/21 06/02/22 Docusate [Colace] 100 mg PO BID PRN 06/02/22 06/02/22 Ezetimibe [Zetia] 10 mg PO DAILY 06/02/22 06/02/22 Fluticasone Nasal [place] [Flonase 1 spray EA NOSTRIL BID PRN 06/02/22 06/02/22 Nasal [place]] HYDROcodone/APAP 7.5-325MG [[place] 1 tab PO Q4H PRN 06/02/22 06/02/22 7.5-325] Levocetirizine Dihydrochloride 5 mg PO HS PRN 06/02/22 06/02/22 [Xyzal] Losartan [Cozaar] 25 mg PO DAILY 06/02/22 06/02/22 Previous Rx's Medication Instructions Recorded Montelukast [Singulair] 10 mg PO HS #30 tab 10/22/21 Docusate [Colace] 100 mg PO BID #60 capsule 06/03/22 HYDROcodone/APAP 5-325MG [[place] 1 - 2 tab PO Q6HR PRN 7 Days #40 06/03/22 5-325] tab Omeprazole 40 mg PO DAILY 30 Days #30 cap 06/03/22 Allergies Allergy/AdvReac Type Severity Reaction Status Date / Time shellfish derived [Shrimp] Allergy Rash/Hives Verified 06/03/22 09:13 rosuvastatin [From Crestor] AdvReac muscle Verified 06/03/22 09:13 soreness/cramps Review of Systems ROS Statement: Those systems with pertinent positive or pertinent negative responses have been documented in the HPI. ROS Other: All systems not noted in ROS Statement are negative. Past Medical History Past Medical History: Atrial Fibrillation, Asthma, Deep Vein Thrombosis (DVT), Hearing Disorder / Deafness, Osteoarthritis (OA), Pneumonia Additional Past Medical History / Comment(s): Hx pneumonia yrs ago. Hiatal hernia. Hx kidney stones. Use of bilateral hearing aids. History of Any Multi-Drug Resistant Organisms: None Reported Past Surgical History: Joint Replacement Additional Past Surgical History / Comment(s): Bilateral knee replacements., LIS and cardioversion 05/31/18 Past Anesthesia/Blood Transfusion Reactions: No Reported Reaction Past Psychological History: No Psychological Hx Reported Smoking Status: Never smoker Past Alcohol Use History: Rare Past Drug Use History: None Reported - Past Family History Mother Family Medical History: No Reported History General Exam Limitations: no limitations General appearance: alert, in no apparent distress Head exam: Present: atraumatic, normocephalic, normal inspection Eye exam: Present: normal appearance, PERRL, EOMI. Absent: scleral icterus, conjunctival injection, periorbital swelling ENT exam: Present: normal exam, mucous membranes moist Neck exam: Present: normal inspection, full ROM. Absent: tenderness, meningismus, lymphadenopathy Respiratory exam: Present: normal lung sounds bilaterally. Absent: respiratory distress, wheezes, rales, rhonchi, stridor Cardiovascular Exam: Present: normal rhythm, tachycardia, normal heart sounds. Absent: systolic murmur, diastolic murmur, rubs, gallop, clicks Extremities exam: Present: other (Left wrist, limited range of motion) Course Vital Signs 06/02/22 13:35 Temperature 98.1 F Pulse Rate 114 H Respiratory 20 Rate Blood Pressure 130/77 O2 Sat by Pulse 97 Oximetry Medical Decision Making - Medical Decision Making I did received phone call from orthopedics associate to the patient admitted to Dr. Thakkar. Labs EKG and chest x-ray were ordered patient will have medicine consult. - Lab Data Result diagrams: 06/04/22 06:04 06/02/22 13:43 Disposition Clinical Impression: Fracture of left hip Disposition: ADMITTED IP TO THIS HOSP Condition: Fair Time of Disposition: 13:40
[2022-06-02 14:10] LABS: Basophils % (A) 0 %; Eosinophils # (A) 0.1 k/uL (0-0.7); Eosinophils % (A) 1 %; HCT 45.4 % (39.0-53.0); HGB 14.7 gm/dL (13.0-17.5); Lymphocytes # (A) 0.6 k/uL (1.0-4.8); Lymphocytes % (A) 6 %; MCH 29.9 pg (25.0-35.0); MCHC 32.4 g/dL (31.0-37.0); Mean Platelet Volume 7.3; Monocytes # (A) 0.8 k/uL (0-1.0); Monocytes % (A) 8 %; Neutrophils # (A) 8.5 k/uL (1.3-7.7); Neutrophils % (A) 84 %; Platelet Count 306 k/uL (150-450); RBC 4.94 m/uL (4.30-5.90); RDW 13.9 % (11.5-15.5); WBC 10.1 k/uL (3.8-10.6)
[2022-06-02 14:30] LABS: INR 1.1 (<1.2); Partial Thromboplastin Time 28.4 sec (22.0-30.0); Prothrombin Time 11.7 sec (9.0-12.0)
[2022-06-02 14:34] LABS: Albumin 4.1 g/dL (3.5-5.0); Calcium 9.4 mg/dL (8.4-10.2); Potassium 4.8 mmol/L (3.5-5.1); Total Bilirubin 1.1 mg/dL (0.2-1.3); Total Protein 6.9 g/dL (6.3-8.2)
[2022-06-02 14:35] LABS: Appearance,Urine Clear (Clear); Bilirubin,Urine Negative (Negative); Blood,Urine Moderate (Negative); Color,Urine Yellow; Glucose,Urine (UA) Negative (Negative); Hyaline Casts,Urine 16 /lpf (0-2); Ketones,Urine 1+ (Negative); Leukocyte Esterase,Urine Negative (Negative); Mucus,Urine Rare /hpf; Nitrite,Urine Negative (Negative); PH, Urine 5.5 (5.0-8.0); Protein,Urine Trace (Negative); RBC,Urine 37 /hpf (0-5); Specific Gravity,Urine 1.024 (1.001-1.035); WBC,Urine 1 /hpf (0-5)
[2022-06-02] MEDS ORDERED: ONDANSETRON 4 MG/2 ML VIAL IVP STA (15:30)
[2022-06-02] MEDS ORDERED: HYDROmorphone 0.5 MG/0.5 ML SYRINGE IVP STA (15:30)
--- NOTE | 2022-06-02 15:42 | XR ---
EXAMINATION TYPE: XR chest 1V DATE OF EXAM: 06/02/2022 COMPARISON: 10/18/2021 HISTORY: Preop TECHNIQUE: Single frontal view of the chest is obtained. FINDINGS: There is no focal air space opacity, pleural effusion, or pneumothorax seen. The cardiac silhouette size is within normal limits. The osseous structures are intact. Prominence of the aorta . Elevated hemidiaphragms with areas of subsegmental consolidation. Cannot exclude a degree of COPD. IMPRESSION: 1. Mediastinum is somewhat prominent correlate for thoracic aortic ectasia or aneurysm. 2. Correlate for COPD.
--- NOTE | 2022-06-02 18:39 | P.HPOR ---
History of Present Illness H&P Date: 06/02/22 This patient is a 81- year old male with a past medical history of atrial fibrillation on Xarelto who initially presented to our office for evaluation of his left hip on 05/20/22. Patient was experiencing hip pain for about 4 weeks with no injury. X-rays showed evidence of possible AVN. MRI of the left hip was ordered as an outpatient and revealed an acute femoral neck fracture. It was recommended patient be admitted to the hospital today for surgical intervention with a left total hip arthroplasty for femoral neck fracture. Patient presented to the [facility] emergency department this afternoon for direct admission. Patient was admitted under the care of Dr. Thakkar with a consult placed to internal medicine for pre-operative medical clearance. Past Medical History Past Medical History: Atrial Fibrillation, Asthma, Deep Vein Thrombosis (DVT), Hearing Disorder / Deafness, Osteoarthritis (OA), Pneumonia Additional Past Medical History / Comment(s): Hx pneumonia yrs ago. Hiatal hernia. Hx kidney stones. Use of bilateral hearing aids. History of Any Multi-Drug Resistant Organisms: None Reported Past Surgical History: Joint Replacement Additional Past Surgical History / Comment(s): Bilateral knee replacements., LIS and cardioversion 05/31/18 Past Anesthesia/Blood Transfusion Reactions: No Reported Reaction Past Psychological History: No Psychological Hx Reported Smoking Status: Never smoker Past Alcohol Use History: Rare Additional Past Alcohol Use History / Comment(s): Quit smoking 50 yrs ago. Past Drug Use History: None Reported - Past Family History Mother Family Medical History: No Reported History Medications and Allergies Home Medications Medication Instructions Recorded Confirmed Type Cyanocobalamin (Vitamin B-12) 2,000 mcg PO DAILY 05/29/18 10/07/21 History [Vitamin B-12] Metoprolol Tartrate 25 mg PO BID 05/29/18 10/07/21 History Multivitamins, Thera [Multivitamin 1 tab PO DAILY 05/29/18 10/07/21 History (formulary)] Rivaroxaban [Xarelto] 20 mg PO HS 05/29/18 10/07/21 History Tamsulosin HCl [Flomax] 0.4 mg PO HS 05/29/18 10/07/21 History Albuterol Sulfate [Albuterol 2 puff PO RT-Q6H PRN 10/07/21 10/07/21 History Sulfate Hfa] Folic Acid 0.4 mg PO DAILY 10/07/21 10/07/21 History Benzonatate [Tessalon Perles] 200 mg PO TID PRN #30 cap 10/22/21 Rx Budesonide-Formot 160-4.5 Mcg 2 puff INHALATION BID #10.2 gm 10/22/21 Rx [Symbicort 160-4.5 Mcg Inhaler] Furosemide [Lasix] 40 mg PO DAILY #30 tablet 10/22/21 Rx Ipratropium-Albuterol Nebulize 3 ml INHALATION TID #90 ml 10/22/21 Rx [Duoneb 0.5 mg-3 mg/3 ml Soln] Losartan [Cozaar] 50 mg PO DAILY #30 tab 10/22/21 Rx Montelukast [Singulair] 10 mg PO HS #30 tab 10/22/21 Rx Pantoprazole [Protonix] 40 mg PO AC-BRKFST #30 tab 10/22/21 Rx Potassium Chloride ER [K-Dur 20] 20 meq PO DAILY #30 tablet 10/22/21 Rx guaiFENesin SYRUP 100MG/5ML 200 mg PO TID ml 10/22/21 Rx [Robitussin] predniSONE 0 mg PO DIRECTED #30 tab 10/22/21 Rx Allergies Allergy/AdvReac Type Severity Reaction Status Date / Time shellfish derived [Shrimp] Allergy Rash/Hives Verified 06/02/22 13:38 Physical Examination On examination, patient is sitting up in bed in no apparent distress. He is alert and orientated x3. A focused examination of his left hip is conducted. On inspection of the left hip, there are no prior scars. Skin is intact. Severe pain with any PROM of the left hip. Motor and sensory function grossly intact LLE. LLE is warm and well perfused. Results MRI left hip performed at [facility] 05/31/22: Acute/subacute subcapital femoral neck fracture with mild displacement and varus alignment. - Labs Labs: Abnormal Lab Results - Last 24 Hours (Table) 06/02/22 06/02/22 06/02/22 Range/Units 13:43 13:43 13:43 Neutrophils # 8.5 H (1.3-7.7) k/uL Lymphocytes # 0.6 L (1.0-4.8) k/uL Sodium 134 L (137-145) mmol/L Glucose 118 H (74-99) mg/dL Alkaline Phosphatase 132 H (38-126) U/L Urine Protein Trace H (Negative) Urine Ketones 1+ H (Negative) Urine Blood Moderate H (Negative) Urine RBC 37 H (0-5) /hpf Hyaline Casts 16 H (0-2) /lpf Urine Mucus Rare H (None) /hpf H & H 06/02/22 Range/Units 13:43 Hgb 14.7 (13.0-17.5) gm/dL Hct 45.4 (39.0-53.0) % Coagulation 06/02/22 Range/Units 13:43 INR 1.1 (<1.2) Result Diagrams: 06/02/22 13:43 06/02/22 13:43 Assessment and Plan Assessment: Left subcapital femoral neck fracture Plan: - The clinical and imaging findings were discussed bedside this afternoon with the patient and Dr. Thakkar. Recommend left direct anterior total hip arthroplasty for femoral neck fracture tomorrow morning. Risks were discussed with the patient. Patient is agreeable to surgery. - Non-weight bearing left lower extremity. Pain management as needed. - Internal medicine consulted for pre-operative medical clearance. - NPO diet at midnight. Will plan for OR in the morning.
[2022-06-02] MEDS: HYDROmorphone 0.5 MG/0.5 ML SYRINGE IVP PRN (19:46)
[2022-06-02] MEDS ORDERED: FLUTICASONE 50MCG/SPRAY NASAL 16GM EA NOSTRIL PRN (20:17)
[2022-06-02] MEDS ORDERED: ALBUTEROL NEBULIZED 2.5 MG/3 ML INHALATION PRN (20:17)
[2022-06-02] MEDS ORDERED: LORATADINE 10 MG TAB PO PRN (20:17)
[2022-06-02] MEDS: METOPROLOL TARTRATE 25 MG TAB PO SCH (21:03)
[2022-06-02] MEDS: MONTELUKAST 10 MG TAB PO SCH (21:03)
[2022-06-02] MEDS: TAMSULOSIN 0.4 MG CAP.ER.24H PO SCH (21:03)
[2022-06-02] MEDS: HYDROcodone/APAP 5-325MG 1 EACH TAB PO PRN (23:09)
--- NOTE | 2022-06-03 07:19 | P.CONS ---
History of Present Illness - Reason for Consult Consult date: 06/03/22 Medical management - History of Present Illness HISTORY OF PRESENT ILLNESS This is a 81-year-old male with past medical history of hypertension, paroxysmal atrial fibrillation on Xarelto, benign prostatic hypertrophy, hiatal hernia, hereditary factor VIII deficiency, hyperlipidemia, mild intermittent asthma Possible COPD. Patient has had ongoing hip pain for the past month and was seen by orthopedics in the office initially on 05/20. X-ray showed evidence of possible AVN. MRI of the left hip revealed acute acute femoral neck fracture and patient was recommended, and the hospital for left total hip arthroplasty for femoral neck fracture. Patient has been seen by orthopedics and scheduled for surgical intervention today. Patient presented to [facility] emergency center and found to be afebrile, heart rate 114, blood pressure 130/77, pulse ox 97% on room air. CBC is unremarkable. Electrolytes and renal function unremarkable. Blood sugar 118. Alkaline phosphatase 132. Urinalysis showed moderate amount of blood and 37 RBCs. Chest x-ray reveals mediastinum is somewhat prominent correlate for thoracic aortic ectasia or aneurysm. Correlate for COPD REVIEW OF SYSTEMS Constitutional: No fever, no chills, no night sweats. No weight change. Reports weakness, Reports fatigue Reports lethargy. No daytime sleepiness. EENT: No headache. No blurred vision or double vision, no loss of vision. No loss of Hearing, no ringing in the ears, no dizziness. No nasal drainage or congestion. No epistaxis. No sore throat. Lungs: Reports shortness of breath, Reports cough, Reports sputum production. Reports wheezing. Cardiovascular: No chest pain, no lower extremity edema. No palpitations. No paroxysmal nocturnal dyspnea. No orthopnea. No lightheadedness or dizziness. No syncopal episodes. Abdominal: No abdominal pain. No nausea, vomiting. No diarrhea. No constipation. No bloody or tarry stools. No loss of appetite. Genitourinary: No dysuria, increased frequency, urgency. No urinary retention. Musculoskeletal: No myalgias. Reports muscle weakness, no gait dysfunction, no frequent falls. No back pain. No neck pain. Integumentary: No wounds, no lesions. No rash or pruritus. No unusual bruising. No change in hair or nails. Neurologic: No aphasia. No facial droop. No change in mentation. No head injury. No headache. No paralysis. No paresthesia. Psychiatric: No depression. No anxiety. No mood swings. Endocrine: No abnormal blood sugars. No weight change. No excessive sweating or thirst. No cold intolerance. MEDICAL HISTORY Hypertension Paroxysmal atrial fibrillation Benign prostatic hypertrophy Hiatal hernia Hereditary factor VIII deficiency Hyperlipidemia Mild intermittent asthma COPD SURGICAL HISTORY Hernia repair Bilateral knee replacement SOCIAL HISTORY Patient is a lifelong nonsmoker, no alcohol use or abuse, no marijuana or illicit drug use. Patient lives at home with his . FAMILY HISTORY Father at age 88 from CVA and had CABG 25 years earlier. Mother at age 88 at F with history of hyperlipidemia. Patient has 2 brothers and one at age 21 in airplane crash and the other one has had multiple surgeries. Patient has one son with no major medical problems and one daughter with no major medical problem. PHYSICAL EXAMINATION Gen: This is an obese 81-year-old male, resting in bed, appears to be fairly comfortable at rest. HEENT: Head is atraumatic, normocephalic. Pupils equal, round. Sclerae is anicteric. NECK: Supple. No JVD. No lymphadenopathy. No thyromegaly. LUNGS: Diminished breath sounds bilaterally. No intercostal retractions. HEART: First heart sound is depressed, second heart sound is normal, 2/6 sy stolic ejection murmur at the left sternal border. ABDOMEN: Soft. Bowel sounds are present. No masses. No tenderness. EXTREMITIES: No pedal edema. No calf tenderness. Pain in the left hip. Dorsa lis pedis palpable bilaterally. NEUROLOGICAL: Patient is awake, alert and oriented x3. Cranial nerves 2 through 12 are grossly intact. ASSESSMENT AND PLAN 1. Acute left femoral neck fracture, scheduled for left total hip arthroplasty today. Xarelto is on hold. Continue [place] as needed for pain, incentive spirometry to reduce incidence of atelectasis and hospital-acquired pneumonia. Patient is cleared medically for surgical intervention. 2. COPD without exacerbation. Continue patient on albuterol every 4 hours as needed for shortness of breath. 3. Mild intermittent asthma. Continue Singulair 10 mg at bedtime, Claritin as needed, albuterol nebulizer treatments every 4 hours as needed. 4. Paroxysmal atrial fibrillation. Hold Xarelto 20 mg at bedtime, continue patient on Lopressor 25 mg twice daily. 5. Benign prostatic hypertrophy. Continue Flomax 0.4 mg at bedtime, monitor for urinary retention. 6. Hereditary factor VIII deficiency. Resume Xarelto once cleared by orthopedic surgeon. 7. Hyperlipidemia. Continue Zetia 10 mg daily 8. Hypertension. Continue losartan 25 mg daily, Lopressor 25 mg twice daily. 9. GI prophylaxis. Protonix 40 mg po daily. 10. DVT prophylaxis. Xarelto will be resumed following surgery once cleared by orthopedics. 9. COVID-19 testing negative. Patient has been hospitalized during a pandemic. DISCHARGE PLAN Anticipate need for subacute rehab. PT and OT will be started following surgery. Impression and plan of care have been directed as dictated by the signing physician. Melissa Hairston nurse practitioner acting as scribe for signing physician. Past Medical History Past Medical History: Atrial Fibrillation, Asthma, Deep Vein Thrombosis (DVT), Hearing Disorder / Deafness, Osteoarthritis (OA), Pneumonia Additional Past Medical History / Comment(s): Hx pneumonia yrs ago. Hiatal hernia. Hx kidney stones. Use of bilateral hearing aids. History of Any Multi-Drug Resistant Organisms: None Reported Past Surgical History: Joint Replacement Additional Past Surgical History / Comment(s): Bilateral knee replacements., LIS and cardioversion 05/31/18 Past Anesthesia/Blood Transfusion Reactions: No Reported Reaction Past Psychological History: No Psychological Hx Reported Smoking Status: Never smoker Past Alcohol Use History: Rare Additional Past Alcohol Use History / Comment(s): Quit smoking 50 yrs ago. Past Drug Use History: None Reported - Past Family History Mother Family Medical History: No Reported History Medications and Allergies Home Medications Medication Instructions Recorded Confirmed Type Cyanocobalamin (Vitamin B-12) 2,000 mcg PO DAILY 05/29/18 06/02/22 History [Vitamin B-12] Metoprolol Tartrate 25 mg PO BID 05/29/18 06/02/22 History Multivitamins, Thera [Multivitamin 1 tab PO DAILY 05/29/18 06/02/22 History (formulary)] Rivaroxaban [Xarelto] 20 mg PO DIRECTED 05/29/18 06/02/22 History Tamsulosin HCl [Flomax] 0.4 mg PO HS 05/29/18 06/02/22 History Albuterol Sulfate [Albuterol 1 puff PO RT-Q4H PRN 10/07/21 06/02/22 History Sulfate Hfa] Folic Acid 0.4 mg PO DAILY 10/07/21 06/02/22 History Montelukast [Singulair] 10 mg PO HS #30 tab 10/22/21 06/02/22 Rx Docusate [Colace] 100 mg PO BID PRN 06/02/22 06/02/22 History Ezetimibe [Zetia] 10 mg PO DAILY 06/02/22 06/02/22 History Fluticasone Nasal [place] [Flonase 1 spray EA NOSTRIL BID PRN 06/02/22 06/02/22 History Nasal [place]] HYDROcodone/APAP 7.5-325MG [[place] 1 tab PO Q4H PRN 06/02/22 06/02/22 History 7.5-325] Levocetirizine Dihydrochloride 5 mg PO HS PRN 06/02/22 06/02/22 History [Xyzal] Losartan [Cozaar] 25 mg PO DAILY 06/02/22 06/02/22 History Allergies Allergy/AdvReac Type Severity Reaction Status Date / Time shellfish derived [Shrimp] Allergy Rash/Hives Verified 06/02/22 19:07 rosuvastatin [From Crestor] AdvReac muscle Verified 06/02/22 19:07 soreness/cramps Physical Exam Vitals: Vital Signs Temp Pulse Pulse Resp BP BP Pulse Ox 06/03/22 01:32 98.8 F 65 16 125/75 94 L 06/02/22 19:55 20 06/02/22 19:16 98 F 105 H 16 121/87 95 06/02/22 17:24 98.5 F 93 20 167/95 96 06/02/22 15:53 98.5 F 92 16 167/95 96 06/02/22 15:45 98 F 78 16 128/78 98 06/02/22 13:35 98.1 F 114 H 20 130/77 97 Intake and Output 06/02/22 06/03/22 06/03/22 22:59 06:59 14:59 Intake Total 500 Output Total 500 800 Balance 0 -800 Intake: Oral 500 Output: Urine 500 800 Other: Voiding Method Urinal # Voids 2 3 # Bowel Movements 0 Weight 106.141 kg Results CBC & Chem 7: 06/02/22 13:43 06/02/22 13:43 Labs: Abnormal Lab Results - Last 24 Hours (Table) 06/02/22 06/02/22 06/02/22 Range/Units 13:43 13:43 13:43 Neutrophils # 8.5 H (1.3-7.7) k/uL Lymphocytes # 0.6 L (1.0-4.8) k/uL Sodium 134 L (137-145) mmol/L Glucose 118 H (74-99) mg/dL Alkaline Phosphatase 132 H (38-126) U/L Urine Protein Trace H (Negative) Urine Ketones 1+ H (Negative) Urine Blood Moderate H (Negative) Urine RBC 37 H (0-5) /hpf Hyaline Casts 16 H (0-2) /lpf Urine Mucus Rare H (None) /hpf
[2022-06-03] MEDS: PANTOPRAZOLE 40 MG TABLET PO SCH (07:27)
[2022-06-03] MEDS: HYDROmorphone 0.5 MG/0.5 ML SYRINGE IVP PRN (07:28)
[2022-06-03] MEDS: METOPROLOL TARTRATE 25 MG TAB PO SCH ×2 (07:29→21:29)
[2022-06-03] MEDS: LOSARTAN 25 MG TAB PO SCH (07:29)
[2022-06-03] MEDS ORDERED: TRANEXAMIC ACID IN NACL,ISO-OS 1,000 MG in SALINE 1 100ML.BAG IVPB ONE (09:33)
[2022-06-03] MEDS: CYANOCOBALAMIN 500 MCG TAB PO SCH (09:33)
[2022-06-03] MEDS: EZETIMIBE 10 MG TAB PO SCH (09:34)
[2022-06-03] MEDS: FOLIC ACID 1 MG TAB PO SCH (09:34)
[2022-06-03] MEDS: MULTIVITAMINS, THERA 1 EACH TAB PO SCH (09:34)
[2022-06-03] MEDS ORDERED: LACTATED RINGERS 1,000 ML IV ONE ×2 (09:55→13:11)
[2022-06-03] MEDS ORDERED: TRANEXAMIC ACID 1,000 MG in SODIUM CHLORIDE 0.9% 100 ML IVPB ONE (10:02)
[2022-06-03] MEDS ORDERED: ROPIVACAINE/EPI/CLONIDINE/KET 50 ML SYRINGE MISCELLANE PRN (10:02)
[2022-06-03] MEDS ORDERED: IPRATROPIUM-ALBUTEROL 3 ML NEB INHALATION STA (10:07)
[2022-06-03] MEDS ORDERED: fentaNYL (PF) 50 MCG/ML 2 ML AMP IVP ONE (10:31)
[2022-06-03] MEDS ORDERED: oxyCODONE ER 10 MG TAB.ER.12H PO ONE ×2 (10:31)
[2022-06-03] MEDS ORDERED: ACETAMINOPHEN TAB 500 MG TAB PO ONE ×2 (10:31)
[2022-06-03] MEDS ORDERED: KETOROLAC 15 MG/ML 1 ML VIAL IVP ONE ×2 (10:31)
[2022-06-03] MEDS ORDERED: DEXAMETHASONE SOD PHOSPHATE 10 MG/ML 1 ML VIAL IVP ONE ×2 (10:31)
[2022-06-03] MEDS ORDERED: FAMOTIDINE 20 MG/2 ML VIAL IVP ONE ×2 (10:31)
[2022-06-03] MEDS ORDERED: DEXAMETHASONE SOD PHOSPHATE 4 MG/ML 1 ML VIAL ONE (10:53)
[2022-06-03] MEDS ORDERED: GLYCOPYRROLATE 0.2 MG/ML 2 ML VIAL ONE (10:53)
[2022-06-03] MEDS ORDERED: SUCCINYLCHOLINE CHLORIDE 100 MG/5 ML SYR IV ONE (10:53)
[2022-06-03] MEDS ORDERED: LIDOCAINE 2% INJ 20 MG/ML (2 ML VIAL) ONE (10:53)
[2022-06-03] MEDS ORDERED: ROPIVACAINE 5 MG/ML 30 ML VIAL ONE (10:53)
[2022-06-03] MEDS ORDERED: TRANEXAMIC ACID IN NACL,ISO-OS 1,000 MG/100 ML BAG ONE (10:53)
[2022-06-03] MEDS ORDERED: fentaNYL (PF) 50 MCG/ML 2 ML AMP ONE (10:53)
[2022-06-03] MEDS ORDERED: ROCURONIUM 10 MG/ML (5 ML VIAL) IV ONE (10:53)
[2022-06-03] MEDS ORDERED: NEOSTIGMINE 1 MG/ML 10 ML VIAL ONE (10:53)
[2022-06-03] MEDS ORDERED: ePHEDrine 50 MG/ML 1 ML VIAL ONE (10:53)
[2022-06-03] MEDS ORDERED: PROPOFOL 10 MG/ML 20 ML VIAL IV ONE (10:53)
--- NOTE | 2022-06-03 13:00 | P.ANPRN ---
Procedure Note - Anesthesia - Nerve Block Performed Left Erector Spinae Single Time Out Performed: Yes Date of Procedure: 06/03/22 Procedure Start Time: 10:30 Procedure Stop Time: 10:38 Location of Patient: PreOp Indication: Acute Post-Operative Pain, Requested by Surgeon Sedation Type: Sedate with meaningful contact maintained Preparation: Sterile Prep Position: Prone Catheter: None Needle Types: [place] Needle Gauge: 20 Ultrasound used to visualize needle placement: Yes Ultrasound used to observe medication spread: Yes Injectate: 0.5% Ropivacaine (see comment for volume) (30 ml + decadron 4 mg) Blood Aspirated: No Pain Paresthesia on Injection Noted: No Resistance on Injection: Normal Image Stored and Saved: Yes Events: Uneventful and Well Tolerated
[2022-06-03] MEDS ORDERED: ONDANSETRON 4 MG/2 ML VIAL IVP PRN (13:18)
[2022-06-03] MEDS ORDERED: hydrOXYzine pamoate 25 MG CAP PO PRN (13:18)
[2022-06-03] MEDS ORDERED: HYDROmorphone 0.5 MG/0.5 ML SYRINGE IVP PRN ×3 (13:18)
--- NOTE | 2022-06-03 13:23 | P.OP ---
Date of Procedure: 06/03/22 Preoperative Diagnosis: 1. 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 History of RSV pulmonary infection with high-dose steroid use 3. Atrial fibrillation on Xarelto Postoperative Diagnosis: Same Procedure(s) Performed: Left direct anterior total hip arthroplasty Implants: 1. Evelyn Trident II Acetabular Cup, Size #54 2. Evelyn Accolade C Size # 5 Femoral Stem, High Offset 3. Dual Mobility OD 42mm, ID 28mm, -4 neck Anesthesia: GETA Surgeon: Cullen Thakkar Zigzag Tunnel Elastic Operator #1: Ronald Lr Estimated Blood Loss (ml): 200 IV fluids (ml): 1,000 Pathology: other (Femoral head to pathology) Condition: stable Disposition: PACU Indications for Procedure: The patient is very pleasant 81-year-old male who was recently hospitalized for pulmonary infection with RSV. He received high-dose steroids at that time. He's been having hip pain and was followed in the office by my partner Dr. Lavon Bran who diagnosed him with AVN. He had an increase in his hip pain so an MRI was ordered. Dr. Bran was out of town when the results came in and it showed collapse with a displaced femoral neck fracture. I agreed to assume care of Mr. Brennan. I met with the patient and discussed treatment options. My recommendation was to proceed with a direct anterior total hip arthroplasty. We discussed the risks at length included the elevated risk profile associated with avascular necrosis. My recommendation was to use a press-fit acetabular cup, cemented femoral stem, and a dual mobility articulation. I had a long discussion with the patient in his hospital room on the potential risks and complications of an elective total hip replacement through a direct anterior approach. Risks discussed include, but are certainly not limited to, risks from anesthesia, superficial infection requiring local wound care or antibiotics, deep steven- prosthetic joint infection and the treatment required to eradicate infection, intraoperative fracture, postoperative periprosthetic fracture, damage to local blood vessels or nerves particularly the lateral femoral cutaneous nerve, delayed wound healing requiring local wound care or possibly surgical debridement, hip dislocation, leg length discrepancy, soft tissue irritation around the total hip implant such as iliopsoas tendinitis or trochanteric bursitis, wear and osteolysis from the implants, squeaking or audible noises, g roin pain, thigh pain, heterotopic ossification, stiffness, aseptic loosening of the implants, dissatisfaction with surgical outcome, need for revision surgery, DVT, PE, swelling of the operative extremity, acute coronary event, stroke, failure to thrive, and possibly loss of life or limb. The patient understands that while these are the most common complications after an elective hip replacement there are certainly other less common complications possible. They were given ample time to ask questions regarding the potential complications of a hip replacement. Following our discussion the patient provided their verbal and written consent to go forward with an elective total hip replacement. Operative Findings: There is obvious avascular necrosis with collapse of the left femoral head. There was necrosis throughout the subchondral bone. Patient had very poor bone quality and the proximal femur so cemented fixation was utilized. Description of Procedure: The patient was identified in the preoperative holding area and the correct hip was marked with my initials. I reviewed the procedure and consent with the patient. All of their questions were answered. The patient was then brought back into the operating room by anesthesia. While on the [facility] anesthesia was administered by the anesthesia team. Preoperative antibiotics and tranexamic acid were also given. After the patient was under anesthesia I examined their ankles to determine their preoperative leg length discrepancy. The skin over the anterior aspect of the hip was shaved to remove hair over the site of planned incision. Both feet and ankles were padded with webril and boots for the [place] were applied. The patient was then carefully transferred onto the [place] table. A perineal post was immediately placed. The arms were placed on arm holders and were well-padded. Both boots were secured to the spars on the [place] table. The patient was positioned so that the pelvis was centered over the post. Nonsterile drapes were applied. A timeout was performed identifying the correct patient, operative extremity, and procedure. At this point fluoroscopy was brought in to take preoperative images of the pelvis and operative hip. Using the standing AP pelvis from the office as a template, a comparable image was obtained with fluoroscopy. A metallic bar was used to create a bi-ischial line for use as a reference to leg length adjustments during the procedure. Global offset was also measured on both the operative and nonoperative leg. Fluoroscopy was then brought out and a pre-scrub using a chlorhexidine scrub brush was performed. The operative limb was then prepped and draped in the standard sterile fashion. An anterior longitudinal incision was made lateral and distal to the ASIS. The skin and subcutaneous tissues were incised sharply. The underlying tensor fascia was identified and incised in its midportion. The fascia was dissected free from the underlying muscle and the muscle belly was retracted. A blunt tipped cobra retractor was placed over the superior neck under the muscle fibers of the gluteus minimus. The deep enveloping fascia of the tensor was incised. The anterior leash of vessels were then identified and cauterized. The fascia between the rectus and the capsule was then incised and the pre-capsular fat was excised. A second Cobra was placed inferior to the neck. The interval between the rectus and iliocapsularis and the hip capsule was developed and a retractor was placed carefully over the anterior rim of the acetabulum. A T-shaped anterior capsulotomy was performed. The superior capsular leaflet was left in place in the inferior capsular flap was excised. The Cobra retractors were placed intracapsularly. We then made a femoral neck osteotomy according to preoperative and intraoperative templating and confirmed the level of the osteotomy using fluoroscopic imaging. The femoral head was removed, passed off to the back table, and sized. The superior capsular flap was excised. Retractors were placed circumferentially exposing the acetabulum. We then circumferentially debrided the acetabulum free of labrum and osteophytes. The pulvinar was removed to fully visualize the cotyloid fossa. We then sequentially reamed to achieve peripheral fit and excellent bleeding subchondral bone. The socket was thoroughly irrigated. The acetabular component was impacted into the appropriate position using fluoroscopy to guide version, inclination, and depth of insertion taking care to have a comparable image of the AP pelvis to the standing image taken in the office. An excellent press-fit was achieved and final position was confirmed using fluoroscopy. The press fit was augmented with bony cancellus dome screws. The liner was then impacted into the socket. Attention was then turned to the femur. The remnant dorsal lateral capsule was excised. The short external rotators were visible and protected. A bone hook was used to confirm appropriate translation of the trochanter away from the acetabulum. The leg was then extended and adducted and the bone hook was used to elevate the femur for broaching. On inspection of the patient's proximal femur, they appeared to have poor bone quality so I elected to proceed with cemented fixation of the femoral component. A box osteotome and blunt tipped canal sound was then utilized to gain access to the femoral canal. We then sequentially broached the femur in appropriate anteversion until torsional stability was achieved and the implant was felt to have reached the appropriate size to allow trialing. The neck cut was brought flush to the trial broach with a calcar planar. A trial neck and head were then placed onto the broach and the hip was atraumatically reduced under direct visualization. External rotation to 90 was performed to assess stability. Fluoroscopy was brought in. An AP and lateral fluoroscopic image of the proximal femur was obtained to assess position and fill of the trial broach. An AP of the pelvis was then obtained and matched to the preoperative image taken. A bi-ischial bar was then placed and measurements were taken to assess changes in length and offset. The hip was then carefully dislocated, the proximal femur was exposed, and the trial implants were removed. The proximal femur was then prepared for cementing. The canal was thoroughly irrigated with pulsatile lavage to remove blood and marrow contents. A cement restrictor was placed to a depth just distal to the tip of the final implant. Epinephrine-soaked gauze was then packed into the proximal femur. 2 bags of cement were then mixed using a centrifuge and placed into a cement gun. Anesthesia was notified that cementing was about to commence to make sure the patient was appropriately ventilated and hydrated. Once the cement had reached appropriate consistency, the cement gun was used to fill the canal in a retrograde fashion starting at the restrictor. Cement was then pressurized into the canal with a blue tipped apron worker. The stem was then carefully introduced into the cement taking care to guide the implant into appropriate version. The stem was held in position until the cement had fully set. All extra cement was removed while the cement was hardening. The trunnion was cleansed and the final head was tapped into place to engage the Castro taper. The acetabulum was irrigated and visualized to be free of debris. The hip was carefully reduced. Stability was checked clinically with external rotation to 90 and there was no evidence of instability. Final fluoroscopic images were taken. The wound was then thoroughly irrigated and soaked with a dilute Betadine rinse for 3 minutes. 3 L of sterile saline was irrigated through the wound using pulsatile lavage. Local anesthetic cocktail was injected into the soft tissues around the surgical field. A deep drain was placed. The wound was then closed in layers. A sterile dressing was placed over the surgical incision and drain site. The drapes were taken down and the patient was carefully transferred off of the [place] table. Following removal of the boots the leg lengths felt acceptable. The patient was then taken to recovery room having tolerated the procedure well. Ronald Lr PA-C was required as a skilled grooming assistant for patient positioning, surgical exposure, retraction, placement of implants, and closure of the surgical wound. PLAN: The patient can weight-bear as tolerated on the operative extremity. 2 doses of postoperative antibiotics. DVT prophylaxis - resume Xarelto POD #1 for DVT prophylaxis. Physical therapy for gait training. Discontinue drain postoperative day #1 if output is less than 100 mL per shift.
[2022-06-03] MEDS ORDERED: ONDANSETRON 4 MG/2 ML VIAL IVP ONE ×2 (13:50→13:52)
[2022-06-03] MEDS ORDERED: HYDROmorphone 0.5 MG/0.5 ML SYRINGE IVP ONE (13:53)
[2022-06-03] MEDS ORDERED: SODIUM CHLORIDE 0.9% 1,000 ML IV ONE (14:35)
[2022-06-03] MEDS ORDERED: MAGNESIUM CITRATE 296 ML BOTTLE PO ONE (18:18)
[2022-06-03] MEDS: TAMSULOSIN 0.4 MG CAP.ER.24H PO SCH (21:29)
[2022-06-03] MEDS: MONTELUKAST 10 MG TAB PO SCH (21:30)
[2022-06-03] MEDS: SENNOSIDES-DOCUSATE SODIUM 1 EACH TAB PO SCH (21:30)
--- NOTE | 2022-06-04 09:36 | P.PN ---
Subjective Progress Note Date: 06/04/22 Principal diagnosis: Left total hip arthroplasty Objective - Vital Signs Vital signs: Vital Signs Temp 97.6 F 06/04/22 02:00 Pulse 97 06/04/22 02:00 Resp 17 06/04/22 02:00 BP 103/62 06/04/22 02:00 Pulse Ox 97 06/04/22 02:00 FiO2 Intake & Output 06/03/22 06/04/22 06/04/22 18:59 06:59 18:59 Intake Total 1850 Output Total 400 420 Balance 1450 -420 Intake: IV 1850 Output: Drainage 80 Left Hip 80 Urine 300 340 Estimated Blood Loss 100 Other: Voiding Method Urinal Toilet Urinal # Voids 1 # Bowel Movements 1 - Labs CBC & Chem 7: 06/02/22 13:43 06/02/22 13:43
[2022-06-04] MEDS: FOLIC ACID 1 MG TAB PO SCH (10:13)
[2022-06-04] MEDS: MULTIVITAMINS, THERA 1 EACH TAB PO SCH (10:13)
[2022-06-04] MEDS: EZETIMIBE 10 MG TAB PO SCH (10:13)
[2022-06-04] MEDS: PANTOPRAZOLE 40 MG TABLET PO SCH (10:13)
[2022-06-04] MEDS: CYANOCOBALAMIN 500 MCG TAB PO SCH (10:13)
[2022-06-04] MEDS: METOPROLOL TARTRATE 25 MG TAB PO SCH ×3 (10:13→22:59)
[2022-06-04] MEDS: LOSARTAN 25 MG TAB PO SCH (10:13)
--- NOTE | 2022-06-04 10:19 | P.PN ---
Subjective Progress Note Date: 06/04/22 HISTORY OF PRESENT ILLNESS This is a 81-year-old male with past medical history of hypertension, paroxysmal atrial fibrillation on Xarelto, benign prostatic hypertrophy, hiatal hernia, hereditary factor VIII deficiency, hyperlipidemia, mild intermittent asthma Possible COPD. Patient has had ongoing hip pain for the past month and was seen by orthopedics in the office initially on 05/20. X-ray showed evidence of possible AVN. MRI of the left hip revealed acute acute femoral neck fracture and patient was recommended, and the hospital for left total hip arthroplasty for femoral neck fracture. Patient has been seen by orthopedics and scheduled for surgical intervention today. Patient presented to [facility] emergency center and found to be afebrile, heart rate 114, blood pressure 130/77, pulse ox 97% on room air. CBC is unremarkable. Electrolytes and renal function unremarkable. Blood sugar 118. Alkaline phosphatase 132. Urinalysis showed moderate amount of blood and 37 RBCs. Chest x-ray reveals mediastinum is somewhat prominent correlate for thoracic aortic ectasia or aneurysm. Correlate for COPD 06/04: Anterior approach total hip arthroplasty with Dr. Thakkar. Patient remains afebrile, heart rate 97, blood pressure 103/62, pulse ox 97% on room air. Patient is reaching 2500 ML's on incentive spirometry. Blood work report is pending. Patient will be resumed on Xarelto tonight. Patient is start working with PT and OT. Anticipate need for subacute rehab at discharge. REVIEW OF SYSTEMS Constitutional: No fever, no chills, no night sweats. No weight change. Reports weakness, Reports fatigue Reports lethargy. No daytime sleepiness. EENT: No headache. No blurred vision or double vision, no loss of vision. No loss of Hearing, no ringing in the ears, no dizziness. No nasal drainage or congestion. No epistaxis. No sore throat. Lungs: Reports shortness of breath, Reports cough, Reports sputum production. Reports wheezing. Cardiovascular: No chest pain, no lower extremity edema. No palpitations. No paroxysmal nocturnal dyspnea. No orthopnea. No lightheadedness or dizziness. No syncopal episodes. Abdominal: No abdominal pain. No nausea, vomiting. No diarrhea. No constipation. No bloody or tarry stools. No loss of appetite. Genitourinary: No dysuria, increased frequency, urgency. No urinary retention. Musculoskeletal: No myalgias. Reports muscle weakness, noted gait dysfunction, no frequent falls. No back pain. No neck pain. Reports left hip discomfort. Integumentary: No wounds, no lesions. No rash or pruritus. No unusual bruising. No change in hair or nails. Neurologic: No aphasia. No facial droop. No change in mentation. No head injury. No headache. No paralysis. No paresthesia. Psychiatric: No depression. No anxiety. No mood swings. Endocrine: No abnormal blood sugars. No weight change. No excessive sweating or thirst. No cold intolerance. PHYSICAL EXAMINATION Gen: This is an obese 81-year-old male, resting in bed, appears to be fairly comfortable at rest. HEENT: Head is atraumatic, normocephalic. Pupils equal, round. Sclerae is anicteric. NECK: Supple. No JVD. No lymphadenopathy. No thyromegaly. LUNGS: Diminished breath sounds bilaterally. No intercostal retractions. HEART: First heart sound is depressed, second heart sound is normal, 2/6 systolic ejection murmur at the left sternal border. ABDOMEN: Soft. Bowel sounds are present. No masses. No tenderness. EXTREMITIES: No pedal edema. No calf tenderness. Pain in the left hip. Dorsalis pedis palpable bilaterally. NEUROLOGICAL: Patient is awake, alert and oriented x3. Cranial nerves 2 through 12 are grossly intact. ASSESSMENT AND PLAN 1. Acute left femoral neck fracture, status post anterior approach left total hip arthroplasty 06/03. Xarelto will be resumed. Continue [place] as needed for pain, incentive spirometry to reduce incidence of atelectasis and hospital- acquired pneumonia. Patient is cleared medically for surgical intervention. PT and OT to start today 2. COPD without exacerbation. Continue patient on albuterol every 4 hours as needed for shortness of breath. 3. Mild intermittent asthma. Continue Singulair 10 mg at bedtime, Claritin as needed, albuterol nebulizer treatments every 4 hours as needed. 4. Paroxysmal atrial fibrillation. Resume Xarelto 20 mg at bedtime, continue patient on Lopressor 25 mg twice daily. 5. Benign prostatic hypertrophy. Continue Flomax 0.4 mg at bedtime, monitor for urinary retention. 6. Hereditary factor VIII deficiency. Resume Xarelto. 7. Hyperlipidemia. Continue Zetia 10 mg daily 8. Hypertension. Continue losartan 25 mg daily, Lopressor 25 mg twice daily. 9. GI prophylaxis. Protonix 40 mg po daily. 10. DVT prophylaxis. Xarelto. DISCHARGE PLAN Anticipate need for subacute rehab. PT and OT will be started following surgery. Impression and plan of care have been directed as dictated by the signing physician. Melissa Hairston nurse practitioner acting as scribe for signing physician. Objective - Vital Signs Vital signs: Vital Signs Temp 97.6 F 06/04/22 02:00 Pulse 97 06/04/22 02:00 Resp 17 06/04/22 02:00 BP 103/62 06/04/22 02:00 Pulse Ox 97 06/04/22 02:00 FiO2 Intake & Output 06/03/22 06/04/22 06/04/22 18:59 06:59 18:59 Intake Total 1850 Output Total 400 420 Balance 1450 -420 Intake: IV 1850 Output: Drainage 80 Left Hip 80 Urine 300 340 Estimated Blood Loss 100 Other: Voiding Method Urinal Toilet Urinal # Voids 1 # Bowel Movements 1 - Labs CBC & Chem 7: 06/02/22 13:43 06/02/22 13:43
--- NOTE | 2022-06-04 11:58 | P.PN ---
Subjective Progress Note Date: 06/04/22 Principal diagnosis: Status post left total hip arthroplasty This is a 81 year-old male post left direct anterior total knee arthroplasty. This is post-op day 1. The patient was evaluated at the bedside today. The patient denies nausea, vomiting, abdominal pain, chest pain, or shortness of breath this morning. He states his pain is controlled at this time. The patient has been up to the bathroom this morning. He has been constipation for the past few weeks but did have a small bowel movement this morning. He states the Hemovac drain was pulled out last night when he got out of bed. Objective - Vital Signs Vital signs: Vital Signs Temp 97.6 F 06/04/22 02:00 Pulse 97 06/04/22 02:00 Resp 17 06/04/22 02:00 BP 103/62 06/04/22 02:00 Pulse Ox 97 06/04/22 02:00 FiO2 Intake & Output 06/03/22 06/04/22 06/04/22 18:59 06:59 18:59 Intake Total 1850 Output Total 400 420 Balance 1450 -420 Intake: IV 1850 Output: Drainage 80 Left Hip 80 Urine 300 340 Estimated Blood Loss 100 Other: Voiding Method Urinal Toilet Urinal # Voids 1 # Bowel Movements 1 - Exam The patient does not appear in acute distress. Alert and orientated x3. Dressing is clean dry and intact. Incision appears fine with no erythema or active drainage. Drain site looks good. Calf is soft and nontender. Good foot and ankle motion without difficulty. Sensation and circulatory status is intact. - Labs CBC & Chem 7: 06/02/22 13:43 06/02/22 13:43 Assessment and Plan (1) Status post total hip replacement, left Current Visit: Yes Status: Acute Code(s): Z96.642 - PRESENCE OF LEFT ARTIFICIAL HIP JOINT SNOMED Code(s): 644502583980 (2) Fracture of left hip Current Visit: Yes Status: Acute Code(s): S72.002A - FRACTURE OF UNSP PART OF NECK OF LEFT FEMUR, INIT SNOMED Code(s): 942693484 Plan: 1. Continue pain control 2. Anticoagulation with Xarelto 3. Start physical therapy and ambulation today 4. Anticipate discharge home vs rehab in the next day or so.
[2022-06-04 12:13] LABS: Basophils # (A) 0.01 X 10*3/uL (0.00-0.10); Basophils % (A) 0.1 %; Eosinophils # (A) 0 X 10*3/uL (0.04-0.35); Eosinophils % (A) 0 %; HCT 35.8 % (39.6-50.0); HGB 11.3 g/dL (13.0-17.0); Immature Grans, Automated 0.9 %; Lymphocytes # (A) 0.46 X 10*3/uL (0.90-5.00); Lymphocytes % (A) 2.8 %; MCH 28.8 pg (27.0-32.0); MCHC 31.6 g/dL (32.0-37.0); MCV 91.3 fL (80.0-97.0); Mean Platelet Volume 10.1 fL (9.5-12.2); Monocytes # (A) 1.13 X 10*3/uL (0.20-1.00); Monocytes % (A) 6.9 %; NRBC Per 100 WBC 0 /100 WBCS (0.0-0.0); Neutrophils # (A) 14.54 X 10*3/uL (1.80-7.70); Neutrophils % (A) 89.3 %; Platelet Count 291 X 10*3/uL (140-440); RBC 3.92 X 10*6/uL (4.40-5.60); RDW 14.6 % (11.5-14.5); WBC 16.28 X 10*3/uL (4.50-10.00)
[2022-06-04] MEDS: RIVAROXABAN 20 MG TAB PO SCH (17:38)
[2022-06-04] MEDS: MONTELUKAST 10 MG TAB PO SCH (22:11)
[2022-06-04] MEDS: TAMSULOSIN 0.4 MG CAP.ER.24H PO SCH (22:11)
[2022-06-04] MEDS: HYDROcodone/APAP 5-325MG 1 EACH TAB PO PRN (22:11)
[2022-06-04] MEDS: SENNOSIDES-DOCUSATE SODIUM 1 EACH TAB PO SCH (22:12)
[2022-06-04] MEDS ORDERED: SODIUM CHLORIDE 0.9% 500 ML 500 ML IV ONE (23:05)
[2022-06-05] MEDS: PANTOPRAZOLE 40 MG TABLET PO SCH (08:50)
[2022-06-05] MEDS: MULTIVITAMINS, THERA 1 EACH TAB PO SCH (08:50)
[2022-06-05] MEDS: FOLIC ACID 1 MG TAB PO SCH (08:51)
[2022-06-05] MEDS: LOSARTAN 25 MG TAB PO SCH (08:51)
[2022-06-05] MEDS: CYANOCOBALAMIN 500 MCG TAB PO SCH (08:51)
[2022-06-05] MEDS: EZETIMIBE 10 MG TAB PO SCH (08:51)
[2022-06-05] MEDS: METOPROLOL TARTRATE 25 MG TAB PO SCH ×2 (08:51→21:34)
[2022-06-05] MEDS: HYDROcodone/APAP 5-325MG 1 EACH TAB PO PRN (08:53)
--- NOTE | 2022-06-05 09:16 | P.PN ---
Subjective Progress Note Date: 06/05/22 HISTORY OF PRESENT ILLNESS This is a 81-year-old male with past medical history of hypertension, paroxysmal atrial fibrillation on Xarelto, benign prostatic hypertrophy, hiatal hernia, hereditary factor VIII deficiency, hyperlipidemia, mild intermittent asthma Possible COPD. Patient has had ongoing hip pain for the past month and was seen by orthopedics in the office initially on 05/20. X-ray showed evidence of possible AVN. MRI of the left hip revealed acute acute femoral neck fracture and patient was recommended, and the hospital for left total hip arthroplasty for femoral neck fracture. Patient has been seen by orthopedics and scheduled for surgical intervention today. Patient presented to [facility] emergency center and found to be afebrile, heart rate 114, blood pressure 130/77, pulse ox 97% on room air. CBC is unremarkable. Electrolytes and renal function unremarkable. Blood sugar 118. Alkaline phosphatase 132. Urinalysis showed moderate amount of blood and 37 RBCs. Chest x-ray reveals mediastinum is somewhat prominent correlate for thoracic aortic ectasia or aneurysm. Correlate for COPD 06/04: Anterior approach total hip arthroplasty with Dr. Thakkar. Patient remains afebrile, heart rate 97, blood pressure 103/62, pulse ox 97% on room air. Patient is reaching 2500 ML's on incentive spirometry. Blood work report is pending. Patient will be resumed on Xarelto tonight. Patient is start working with PT and OT. Anticipate need for subacute rehab at discharge. 06/05: Patient is complaining of increased muscle pain in the left thigh and we will continue with current treatment plan, he definitely will require physical therapy, patient will need a wheeled walker for home, and if he is ok by orthopedic service he may go home. REVIEW OF SYSTEMS Constitutional: No fever, no chills, no night sweats. No weight change. Reports weakness, Reports fatigue Reports lethargy. No daytime sleepiness. EENT: No headache. No blurred vision or double vision, no loss of vision. No loss of Hearing, no ringing in the ears, no dizziness. No nasal drainage or congestion. No epistaxis. No sore throat. Lungs: Reports shortness of breath, Reports cough, Reports sputum production. Reports wheezing. Cardiovascular: No chest pain, no lower extremity edema. No palpitations. No paroxysmal nocturnal dyspnea. No orthopnea. No lightheadedness or dizziness. No syncopal episodes. Abdominal: No abdominal pain. No nausea, vomiting. No diarrhea. No constipation. No bloody or tarry stools. No loss of appetite. Genitourinary: No dysuria, increased frequency, urgency. No urinary retention. Musculoskeletal: No myalgias. Reports muscle weakness, noted gait dysfunction, no frequent falls. No back pain. No neck pain. Reports left hip discomfort. Integumentary: No wounds, no lesions. No rash or pruritus. No unusual bruising. No change in hair or nails. Neurologic: No aphasia. No facial droop. No change in mentation. No head injury. No headache. No paralysis. No paresthesia. Psychiatric: No depression. No anxiety. No mood swings. Endocrine: No abnormal blood sugars. No weight change. No excessive sweating or thirst. No cold intolerance. PHYSICAL EXAMINATION Gen: This is an obese 81-year-old male, resting in bed, appears to be fairly comfortable at rest. HEENT: Head is atraumatic, normocephalic. Pupils equal, round. Sclerae is anicteric. NECK: Supple. No JVD. No lymphadenopathy. No thyromegaly. LUNGS: Diminished breath sounds bilaterally. No intercostal retractions. HEART: First heart sound is depressed, second heart sound is normal, 2/6 systolic ejection murmur at the left sternal border. ABDOMEN: Soft. Bowel sounds are present. No masses. No tenderness. EXTREMITIES: No pedal edema. No calf tenderness. Pain in the left hip. Dorsalis pedis palpable bilaterally. NEUROLOGICAL: Patient is awake, alert and oriented x3. Cranial nerves 2 through 12 are grossly intact. ASSESSMENT AND PLAN 1. Acute left femoral neck fracture, status post anterior approach left total hip arthroplasty 06/03. Xarelto 20 mg po daily Continue [place] as needed for pain, incentive spirometry to reduce incidence of atelectasis and hospital- acquired pneumonia. Patient is cleared medically for surgical intervention. PT and OT to start today 2. COPD without exacerbation. Continue patient on albuterol every 4 hours as needed for shortness of breath. 3. Mild intermittent asthma. Continue Singulair 10 mg at bedtime, Claritin as needed, albuterol nebulizer treatments every 4 hours as needed. 4. Paroxysmal atrial fibrillation. Resume Xarelto 20 mg at bedtime, continue patient on Lopressor 25 mg twice daily. 5. Benign prostatic hypertrophy. Continue Flomax 0.4 mg at bedtime, monitor for urinary retention. 6. Hereditary factor VIII deficiency. Resume Xarelto. 7. Hyperlipidemia. Continue Zetia 10 mg daily 8. Hypertension. Continue losartan 25 mg daily, Lopressor 25 mg twice daily. 9. GI prophylaxis. Protonix 40 mg po daily. 10. DVT prophylaxis. Xarelto. 11. Patient will need some sort of therapy he is asking for home PT as he can not leave his alone due to her dementia Objective - Vital Signs Vital signs: Vital Signs Temp 98.5 F 06/05/22 07:45 Pulse 93 06/05/22 07:45 Resp 18 06/05/22 07:45 BP 94/69 06/05/22 07:45 Pulse Ox 96 06/05/22 07:45 FiO2 Intake & Output 06/04/22 06/05/22 06/05/22 18:59 06:59 18:59 Intake Total 500 Output Total 2000 120 Balance -1500 -120 Intake: Intake, IV Titration 500 Amount Sodium Chloride 0.9% 500 500 ml 500 ml @ 999 mls/hr IV .Q31M ONE Rx#:[id number] Output: Urine 2000 120 Other: Voiding Method Toilet Toilet Urinal Urinal # Voids 2 8 # Bowel Movements 1 - Labs CBC & Chem 7: 06/04/22 06:04 06/02/22 13:43 Labs: Abnormal Lab Results - Last 24 Hours (Table) 06/04/22 Range/Units 06:04 WBC 16.28 H (4.50-10.00) X 10*3/uL RBC 3.92 L (4.40-5.60) X 10*6/uL Hgb 11.3 L (13.0-17.0) g/dL Hct 35.8 L (39.6-50.0) % MCHC 31.6 L (32.0-37.0) g/dL RDW 14.6 H (11.5-14.5) % Immature Gran # 0.14 H (0.00-0.04) X 10*3/uL Neutrophils # 14.54 H (1.80-7.70) X 10*3/uL Lymphocytes # 0.46 L (0.90-5.00) X 10*3/uL Monocytes # 1.13 H (0.20-1.00) X 10*3/uL Eosinophils # 0 L (0.04-0.35) X 10*3/uL
--- NOTE | 2022-06-05 10:17 | P.PN ---
Subjective Progress Note Date: 06/05/22 Principal diagnosis: Status post left hip arthroplasty This is a 81 year-old male post left direct anterior total knee arthroplasty. This is post-op day 2. The patient was evaluated at the bedside today. The patient denies nausea, vomiting, abdominal pain, chest pain, or shortness of breath this morning. He states his pain is controlled at this time. The patient has been up to the bathroom this morning. No new complaints today. Objective - Vital Signs Vital signs: Vital Signs Temp 98.5 F 06/05/22 07:45 Pulse 93 06/05/22 07:45 Resp 18 06/05/22 07:45 BP 94/69 06/05/22 07:45 Pulse Ox 96 06/05/22 07:45 FiO2 Intake & Output 06/04/22 06/05/22 06/05/22 18:59 06:59 18:59 Intake Total 500 Output Total 1999 120 Balance -1500 -120 Intake: Intake, IV Titration 500 Amount Sodium Chloride 0.9% 500 500 ml 500 ml @ 999 mls/hr IV .Q31M ONE Rx#:[id number] Output: Urine 1999 120 Other: Voiding Method Toilet Toilet Urinal Urinal # Voids 2 8 # Bowel Movements 1 - Exam The patient does not appear in acute distress. Alert and orientated x3. Dressing is clean dry and intact. Incision appears fine with no erythema or active drainage. Drain site looks good. Calf is soft and nontender. Good foot and ankle motion without difficulty. Sensation and circulatory status is intact. - Labs CBC & Chem 7: 06/04/22 06:04 06/02/22 13:43 Labs: Abnormal Lab Results - Last 24 Hours (Table) 06/04/22 Range/Units 06:04 WBC 16.28 H (4.50-10.00) X 10*3/uL RBC 3.92 L (4.40-5.60) X 10*6/uL Hgb 11.3 L (13.0-17.0) g/dL Hct 35.8 L (39.6-50.0) % MCHC 31.6 L (32.0-37.0) g/dL RDW 14.6 H (11.5-14.5) % Immature Gran # 0.14 H (0.00-0.04) X 10*3/uL Neutrophils # 14.54 H (1.80-7.70) X 10*3/uL Lymphocytes # 0.46 L (0.90-5.00) X 10*3/uL Monocytes # 1.13 H (0.20-1.00) X 10*3/uL Eosinophils # 0 L (0.04-0.35) X 10*3/uL Assessment and Plan (1) Status post total hip replacement, left Current Visit: Yes Status: Acute Code(s): Z96.642 - PRESENCE OF LEFT ARTIFICIAL HIP JOINT SNOMED Code(s): 483388256174 (2) Fracture of left hip Current Visit: Yes Status: Acute Code(s): S72.002A - FRACTURE OF UNSP PART OF NECK OF LEFT FEMUR, INIT SNOMED Code(s): 305415277 Plan: 1. Continue pain control 2. Anticoagulation with Xarelto 3. Continue physical therapy and ambulation today 4. Anticipate discharge home vs rehab in the next day or so.
[2022-06-05] MEDS: RIVAROXABAN 20 MG TAB PO SCH (17:06)
[2022-06-05] MEDS: MONTELUKAST 10 MG TAB PO SCH (21:34)
[2022-06-05] MEDS: SENNOSIDES-DOCUSATE SODIUM 1 EACH TAB PO SCH (21:34)
[2022-06-05] MEDS: TAMSULOSIN 0.4 MG CAP.ER.24H PO SCH (21:34)
[2022-06-06 07:41] VITALS: RESP 18
[2022-06-06 07:48] VITALS: BP 108/69; PULSE 91; TEMP 98.6
[2022-06-06 08:26] LABS: Basophils # (A) 0.02 X 10*3/uL (0.00-0.10); Basophils % (A) 0.2 %; Eosinophils # (A) 0.06 X 10*3/uL (0.04-0.35); Eosinophils % (A) 0.5 %; HCT 35.2 % (39.6-50.0); HGB 11.1 g/dL (13.0-17.0); Lymphocytes # (A) 0.91 X 10*3/uL (0.90-5.00); Lymphocytes % (A) 7.5 %; MCH 29.1 pg (27.0-32.0); MCHC 31.5 g/dL (32.0-37.0); MCV 92.4 fL (80.0-97.0); Mean Platelet Volume 9.9 fL (9.5-12.2); Monocytes % (A) 11.5 %; NRBC Per 100 WBC 0 /100 WBCS (0.0-0.0); Neutrophils # (A) 9.69 X 10*3/uL (1.80-7.70); Neutrophils % (A) 79.3 %; Platelet Count 298 X 10*3/uL (140-440); RBC 3.81 X 10*6/uL (4.40-5.60); RDW 14.9 % (11.5-14.5)
[2022-06-06] MEDS: EZETIMIBE 10 MG TAB PO SCH (09:28)
[2022-06-06] MEDS: CYANOCOBALAMIN 500 MCG TAB PO SCH (09:28)
[2022-06-06] MEDS: LOSARTAN 25 MG TAB PO SCH (09:29)
[2022-06-06] MEDS: FOLIC ACID 1 MG TAB PO SCH (09:29)
[2022-06-06] MEDS: METOPROLOL TARTRATE 25 MG TAB PO SCH (09:29)
[2022-06-06] MEDS: MULTIVITAMINS, THERA 1 EACH TAB PO SCH (09:29)
[2022-06-06] MEDS: PANTOPRAZOLE 40 MG TABLET PO SCH (09:29)
--- NOTE | 2022-06-06 11:46 | P.DS ---
Providers Date of admission: 06/02/22 13:35 Expected date of discharge: 06/06/22 Attending physician: Cullen Thakkar Consults: 06/02/22 13:35 Consult Physician Urgent Consulting Provider: Buzz Zimmerman Consult Reason/Comments: Medical management, surgical clearance Do you want consulting provider notified?: Yes Primary care physician: Buzz Zimmerman Hospital Course: This is a 81-year-old male who was followed in the office for increasing left hip pain. MRI was obtained as an outpatient and revealed a femoral neck fracture. Treatment options were discussed, and patient elected to undergo a left total hip arthroplasty. Patient was direct admitted under the care of Dr. Thakkar. Patient was seen pre-operatively by Dr. Zimmerman and cleared for surgery. Patient underwent a left direct anterior total hip arthroplasty on 06/03/22. The procedure was performed without complication or sequelae. The patient is doing fairly well postoperatively. Vital signs and labs are stable on postoperative day #3. Patient was examined bedside today. Patient states he is overall doing very well and the pain in his left hip is well-controlled. He has been ambulating with a walker with minimal assistance. He has worked with physical therapy this morning and has been cleared to return home. Patient is tolerating his breakfast well. He is voiding without issues. Patient is comfortable being discharged home today. Patient denies chest pain, shortness of breath, nausea, vomiting, fevers, chills. On examination, the patient is sitting up in the bed in no apparent distress. He is alert and orientated 3. On inspection of the left hip, there is a clean, dry, intact surgical dressing in place. There is no bleeding or drainage the dressing. Patient has good strength and ROM of the left ankle and toes. Motor and sensory function is intact of the left lower extremity. The dorsalis pedis pulse is easily palpable, the left lower extremity is warm and well perfused with brisk capillary refill. Calf is soft and non-tender to palpation. Patient is discharged home with home health in good condition, pending medical clearance. Patient will follow-up with Dr. Thakkar in the office in 2 weeks. Please see med rec for accurate list of discharge medication. Patient Condition at Discharge: Fair Plan - Discharge Summary New Discharge Prescriptions: New Docusate [Colace] 100 mg PO BID #60 capsule HYDROcodone/APAP 5-325MG [[place] 5-325] 1 - 2 tab PO Q6HR PRN 7 Days #40 tab PRN Reason: Pain Omeprazole 40 mg PO DAILY 30 Days #30 cap Continue Metoprolol Tartrate 25 mg PO BID Rivaroxaban [Xarelto] 20 mg PO DIRECTED Multivitamins, Thera [Multivitamin (formulary)] 1 tab PO DAILY Tamsulosin HCl [Flomax] 0.4 mg PO HS Cyanocobalamin (Vitamin B-12) [Vitamin B-12] 2,000 mcg PO DAILY Montelukast [Singulair] 10 mg PO HS #30 tab HYDROcodone/APAP 7.5-325MG [[place] 7.5-325] 1 tab PO Q4H PRN PRN Reason: Pain Losartan [Cozaar] 25 mg PO DAILY Folic Acid 0.4 mg PO DAILY Albuterol Sulfate [Albuterol Sulfate Hfa] 1 puff PO RT-Q4H PRN PRN Reason: Shortness Of Breath Levocetirizine Dihydrochloride [Xyzal] 5 mg PO HS PRN PRN Reason: Allergy Symptoms Docusate [Colace] 100 mg PO BID PRN PRN Reason: Constipation Fluticasone Nasal [place] [Flonase Nasal [place]] 1 spray EA NOSTRIL BID PRN PRN Reason: Allergy Symptoms Ezetimibe [Zetia] 10 mg PO DAILY Discharge Medication List Cyanocobalamin (Vitamin B-12) [Vitamin B-12] 2,000 mcg PO DAILY 05/29/18 [History] Metoprolol Tartrate 25 mg PO BID 05/29/18 [History] Multivitamins, Thera [Multivitamin (formulary)] 1 tab PO DAILY 05/29/18 [History] Rivaroxaban [Xarelto] 20 mg PO DIRECTED 05/29/18 [History] Tamsulosin HCl [Flomax] 0.4 mg PO HS 05/29/18 [History] Albuterol Sulfate [Albuterol Sulfate Hfa] 1 puff PO RT-Q4H PRN 10/07/21 [History] Folic Acid 0.4 mg PO DAILY 10/07/21 [History] Montelukast [Singulair] 10 mg PO HS #30 tab 10/22/21 [Rx] Docusate [Colace] 100 mg PO BID PRN 06/02/22 [History] Ezetimibe [Zetia] 10 mg PO DAILY 06/02/22 [History] Fluticasone Nasal [place] [Flonase Nasal [place]] 1 spray EA NOSTRIL BID PRN 06/02/22 [History] HYDROcodone/APAP 7.5-325MG [[place] 7.5-325] 1 tab PO Q4H PRN 06/02/22 [History] Levocetirizine Dihydrochloride [Xyzal] 5 mg PO HS PRN 06/02/22 [History] Losartan [Cozaar] 25 mg PO DAILY 06/02/22 [History] Docusate [Colace] 100 mg PO BID #60 capsule 06/03/22 [Rx] HYDROcodone/APAP 5-325MG [[place] 5-325] 1 - 2 tab PO Q6HR PRN 7 Days #40 tab 06/03/22 [Rx] Omeprazole 40 mg PO DAILY 30 Days #30 cap 06/03/22 [Rx] Follow up Appointment(s)/Referral(s): Buzz Zimmerman MD [Primary Care Provider] - 1 Week [facility] [NON-STAFF] - As Needed (walker) [facility] [NON-STAFF] - As Needed Cullen Thakkar MD [Medical Doctor] - 2 Weeks Activity/Diet/Wound Care/Special Instructions: Weight bear as tolerated on operative extremity with a walker. Keep operative dressings intact until follow-up in the office. May shower over dressing. Call the office if dressing becomes saturated or falls off. Resume Xarelto for DVT prophylaxis. Take pain medications as prescribed. Follow-up in the office in two weeks with Dr. Thakkar. Call the office with any questions or concerns, Discharge Disposition: HOME WITH HOME HEALTH SERVICES
--- NOTE | 2022-06-06 15:49 | P.PN ---
Subjective Progress Note Date: 06/06/22 HISTORY OF PRESENT ILLNESS This is a 81-year-old male with past medical history of hypertension, paroxysmal atrial fibrillation on Xarelto, benign prostatic hypertrophy, hiatal hernia, hereditary factor VIII deficiency, hyperlipidemia, mild intermittent asthma Possible COPD. Patient has had ongoing hip pain for the past month and was seen by orthopedics in the office initially on 05/20. X-ray showed evidence of possible AVN. MRI of the left hip revealed acute acute femoral neck fracture and patient was recommended, and the hospital for left total hip arthroplasty for femoral neck fracture. Patient has been seen by orthopedics and scheduled for surgical intervention today. Patient presented to [facility] emergency center and found to be afebrile, heart rate 114, blood pressure 130/77, pulse ox 97% on room air. CBC is unremarkable. Electrolytes and renal function unremarkable. Blood sugar 118. Alkaline phosphatase 132. Urinalysis showed moderate amount of blood and 37 RBCs. Chest x-ray reveals mediastinum is somewhat prominent correlate for thoracic aortic ectasia or aneurysm. Correlate for COPD 06/04: Anterior approach total hip arthroplasty with Dr. Thakkar. Patient remains afebrile, heart rate 97, blood pressure 103/62, pulse ox 97% on room air. Patient is reaching 2500 ML's on incentive spirometry. Blood work report is pending. Patient will be resumed on Xarelto tonight. Patient is start working with PT and OT. Anticipate need for subacute rehab at discharge. 06/05: Patient is complaining of increased muscle pain in the left thigh and we will continue with current treatment plan, he definitely will require physical therapy, patient will need a wheeled walker for home, and if he is ok by orthopedic service he may go home. 06/06: No new concerns from the patient. He is scheduled for discharge home today. [facility] has been arranged. Medication reconciliation has been reviewed for discharge. He has been afebrile, heart rate 91, blood pressure 108/69, pulse ox 95% on room air. Repeat blood work reveals WBC 12.2, hemoglobin 11.1, platelet count 298. REVIEW OF SYSTEMS Constitutional: No fever, no chills, no night sweats. No weight change. Reports weakness, Reports fatigue Reports lethargy. No daytime sleepiness. EENT: No headache. No blurred vision or double vision, no loss of vision. No loss of Hearing, no ringing in the ears, no dizziness. No nasal drainage or congestion. No epistaxis. No sore throat. Lungs: Reports shortness of breath, Reports cough, Reports sputum production. Reports wheezing. Cardiovascular: No chest pain, no lower extremity edema. No palpitations. No paroxysmal nocturnal dyspnea. No orthopnea. No lightheadedness or dizziness. No syncopal episodes. Abdominal: No abdominal pain. No nausea, vomiting. No diarrhea. No constipa tion. No bloody or tarry stools. No loss of appetite. Genitourinary: No dysuria, increased frequency, urgency. No urinary retention. Musculoskeletal: No myalgias. Reports muscle weakness, noted gait dysfunction, no frequent falls. No back pain. No neck pain. Reports left hip discomfort. Integumentary: No wounds, no lesions. No rash or pruritus. No unusual bruising. No change in hair or nails. Neurologic: No aphasia. No facial droop. No change in mentation. No head injury. No headache. No paralysis. No paresthesia. Psychiatric: No depression. No anxiety. No mood swings. Endocrine: No abnormal blood sugars. No weight change. No excessive sweating or thirst. No cold intolerance. PHYSICAL EXAMINATION Gen: This is an obese 81-year-old male, resting in bed, appears to be fairly comfortable at rest. HEENT: Head is atraumatic, normocephalic. Pupils equal, round. Sclerae is anicteric. NECK: Supple. No JVD. No lymphadenopathy. No thyromegaly. LUNGS: Diminished breath sounds bilaterally. No intercostal retractions. HEART: First heart sound is depressed, second heart sound is normal, 2/6 systolic ejection murmur at the left sternal border. ABDOMEN: Soft. Bowel sounds are present. No masses. No tenderness. EXTREMITIES: No pedal edema. No calf tenderness. Pain in the left hip. Dorsalis pedis palpable bilaterally. NEUROLOGICAL: Patient is awake, alert and oriented x3. Cranial nerves 2 through 12 are grossly intact. ASSESSMENT AND PLAN 1. Acute left femoral neck fracture, status post anterior approach left total hip arthroplasty 06/03. Xarelto 20 mg po daily Continue [place] as needed for pain, incentive spirometry to reduce incidence of atelectasis and hospital- acquired pneumonia. Patient is cleared medically for surgical intervention. PT and OT to start today 2. COPD without exacerbation. Continue patient on albuterol every 4 hours as needed for shortness of breath. 3. Mild intermittent asthma. Continue Singulair 10 mg at bedtime, Claritin as needed, albuterol nebulizer treatments every 4 hours as needed. 4. Paroxysmal atrial fibrillation. Resume Xarelto 20 mg at bedtime, continue patient on Lopressor 25 mg twice daily. 5. Benign prostatic hypertrophy. Continue Flomax 0.4 mg at bedtime, monitor for urinary retention. 6. Hereditary factor VIII deficiency. Resume Xarelto. 7. Hyperlipidemia. Continue Zetia 10 mg daily 8. Hypertension. Continue losartan 25 mg daily, Lopressor 25 mg twice daily. 9. GI prophylaxis. Protonix 40 mg po daily. 10. DVT prophylaxis. Xarelto. 11. Patient will need some sort of therapy he is asking for home PT as he can not leave his alone due to her dementia Impression and plan of care have been directed as dictated by the signing physician. Melissa Hairston nurse practitioner acting as scribe for signing physician. Impression and plan of care have been directed as dictated by the signing physician. Melissa Hairston nurse practitioner acting as scribe for signing physician. Objective - Vital Signs Vital signs: Vital Signs Temp 98.6 F 06/06/22 07:48 Pulse 91 06/06/22 07:48 Resp 18 06/06/22 07:48 BP 108/69 06/06/22 07:48 Pulse Ox 96 06/06/22 08:19 FiO2 21 06/06/22 08:19 Intake & Output 06/05/22 06/06/22 06/06/22 18:59 06:59 18:59 Intake Total 590 Output Total 120 800 Balance -120 -210 Intake: Oral 590 Output: Urine 120 800 Other: Voiding Method Toilet Urinal # Voids 3 - Labs CBC & Chem 7: 06/06/22 05:26 06/02/22 13:43 Labs: Abnormal Lab Results - Last 24 Hours (Table) 06/06/22 Range/Units 05:26 WBC 12.20 H (4.50-10.00) X 10*3/uL RBC 3.81 L (4.40-5.60) X 10*6/uL Hgb 11.1 L (13.0-17.0) g/dL Hct 35.2 L (39.6-50.0) % MCHC 31.5 L (32.0-37.0) g/dL RDW 14.9 H (11.5-14.5) % Immature Gran # 0.12 H (0.00-0.04) X 10*3/uL Neutrophils # 9.69 H (1.80-7.70) X 10*3/uL Monocytes # 1.40 H (0.20-1.00) X 10*3/uL
== END 2022-06-06 15:14 | disposition home health service (06) | DRG 521 ==
LOC: EC 12:21 → 4SSUR 13:35
PROVIDERS: ADMIT Orthopaedic Surgery; ATTEND Orthopaedic Surgery
PROC: 0SRB049 Replacement of Left Hip Joint with Ceramic on Polyethylene Synthetic Substitute, Cemented, Open Approach (ICD-10-PCS; principal; 2022-06-03 10:15)
DX: S72.012A Unspecified intracapsular fracture of left femur, initial encounter for closed fracture (principal); D66 Hereditary factor VIII deficiency; M87.852 Other osteonecrosis, left femur; I48.0 Paroxysmal atrial fibrillation; J44.9 Chronic obstructive pulmonary disease, unspecified; J45.20 Mild intermittent asthma, uncomplicated; I10 Essential (primary) hypertension; E78.5 Hyperlipidemia, unspecified; N40.0 Benign prostatic hyperplasia without lower urinary tract symptoms; K44.9 Diaphragmatic hernia without obstruction or gangrene; K59.00 Constipation, unspecified; H91.90 Unspecified hearing loss, unspecified ear; Z79.01 Long term (current) use of anticoagulants; Z79.899 Other long term (current) drug therapy; Z96.653 Presence of artificial knee joint, bilateral; Z87.442 Personal history of urinary calculi; Z97.4 Presence of external hearing-aid; Z86.718 Personal history of other venous thrombosis and embolism; Z87.01 Personal history of pneumonia (recurrent); Z88.8 Allergy status to other drugs, medicaments and biological substances; Z91.013 Allergy to seafood; Z82.3 Family history of stroke; Z83.49 Family history of other endocrine, nutritional and metabolic diseases
CPT/HCPCS: 64461; 71045; 76942; 80053; 81001; 85025; 85610; 85730; 86850; 86900; 86901; 93005; 94640; 94760; 96374; 96375; 99284

== ENCOUNTER → 2023-04-14 | Outpatient (CLI) | payer MEDICARE ==
--- NOTE | 2023-04-18 04:43 | CT ---
EXAMINATION TYPE: CT angio chest DATE OF EXAM: 04/14/2023 COMPARISON: 09/19/2017 HISTORY: 82-year-old male R7.81, pleuritic chest pain TECHNIQUE: Contiguous axial scanning of the chest performed with IV Contrast, patient injected with 7 5 mL of Isovue 370. Coronal/sagittal MIP reconstructions performed. CT DLP: 581.6 mGycm Automated exposure control for dose reduction was used. FINDINGS: Heart is mildly enlarged particularly with left atrial dilatation. No pericardial effusion. LAD coron rohit artery calcifications are present. Mild aortic valvular calcifications. 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 Mild atherosclerotic arch calcifications with conventio nal arch vessel branching anatomy. Ectatic descending thoracic aorta measuring up to 3.3 cm, unchange d. There is large caliber to the main right and left pulmonary arteries measuring up to 3.0 cm suggestin g underlying pulmonary artery hypertension. No evidence for pulmonary embolus. Numerous nonenlarged and borderline to mildly enlarged mediastinal lymph nodes are present. Largest l ower right paratracheal measuring 2.0 cm versus 1.5 cm, previously. Subcarinal measuring 2.0 cm, new from prior. Right hilum measuring up to 1.8 cm. Interval postsurgical change with repair of the patient's previous very large hiatal hernia. There ap pears to be a fundoplication wrap. Possible residual tiny hiatal hernia. There is fat stranding aroun d the distal esophagus that could represent postsurgical scarring and should be correlated with patie nt's symptoms to exclude any inflammatory edema. There are septal lines seen throughout the lungs. Mild emphysematous change. Moderate central interst itial thickening. More patchy and groundglass changes in the lower lungs. Some of these densities have a more nodular configuration and should be reassessed following treatmen t. For example, 9 mm at the lingula, axial and 79 and 5 mm at the posterolateral left lung base, axia l image 98. Benign calcified granuloma posterior left base measuring 1 cm. No pleural effusion. Visualized upper abdomen shows a few nonobstructive bilateral renal calculi measuring up to 4 mm. Pos sible layering gravel in the gallbladder partially visualized. Bones: Moderate degenerative disc disease throughout. Prominent anterior endplate spondylosis mid to lower thoracic spine with accentuated midthoracic kyphosis. Normal variant sternal foramen. IMPRESSION: 1. CARDIOMEGALY WITH PULMONARY ARTERIAL HYPERTENSION, NEW DIFFUSE SEPTAL AND CENTRAL INTERSTITIAL THI CKENING. Patchy and groundglass opacities in the lower lungs. Correlate for CHF with developing patch y pulmonary edema. 2. Mediastinal and hilar lymphadenopathy measuring up to 2.0 cm may be reactive. Reassess in 3 months to ensure stability/resolution. 3. COPD with mild emphysema. Some of the parenchymal changes have a nodular configuration and should also be reassessed in 3 months. 4. No pulmonary embolus is seen. 5. Interval repair of the patient's very large hiatal hernia. A tiny residual hiatal hernia may remai n. There is prominent fat stranding along the distal esophagus that may represent postsurgical scarri ng. Correlate with patient's symptoms to exclude any inflammatory edema.
== END | disposition home or self-care (01) ==
LOC: RADCTMAIN 10:32
PROVIDERS: ATTEND Internal Medicine
DX: I27.21 Secondary pulmonary arterial hypertension (principal); K44.9 Diaphragmatic hernia without obstruction or gangrene; J43.9 Emphysema, unspecified; R91.8 Other nonspecific abnormal finding of lung field; R59.0 Localized enlarged lymph nodes
CPT/HCPCS: 82565; 84520; 71275; 36415; Q9967

== ENCOUNTER → 2023-09-19 | Day surgery (SDC) | payer MEDICARE ==
[~2023-09-19] MED LIST changes: +ALPRAZolam 0.25 MG TAB PO PRN; +ALPRAZolam 0.5 MG TAB PO PRN; +AMIODARONE 100 MG TAB PO SCH; -AMIODARONE 200 MG TAB PO SCH; +ASPIRIN 325 MG TAB PO STA; +ASPIRIN 81 MG ONE; -FOLIC ACID 800 MG PO SCH; +HEPARIN SODIUM 1,000 UN/ML (10ML VL) IV ONE; +HEPARIN SODIUM 1,000 UN/ML (10ML VL) ONE; +HEPARIN SODIUM,PORCINE (1 ML) 2,500 UNIT in SODIUM CHLORIDE 0.9% 250 ML IRRIGATION PRN; +HEPARIN SODIUM,PORCINE 10,000 UNIT in SODIUM CHLORIDE 0.9% 1,000 ML IRRIGATION PRN; +IOPAMIDOL-370 100ML BTL INJ ONE; -IV FLUID CONTINUATION 1,000 ML IV ONE; -LACTATED RINGERS 1,000 ML IV SCH; +LIDOCAINE 1% INJ 10MG/ML (20 ML MDV) SQ ONE; -LOSARTAN 25 MG TAB PO SCH; +LOSARTAN 25 MG TAB PO STA; +LOSARTAN 50 MG TAB PO SCH; +METOPROLOL TARTRATE 25 MG TAB PO STA; -MULTIVITAMINS, THERA 1 EACH TAB PO SCH; +NITROGLYCERIN SL TABS 0.4 MG TAB SUBLINGUAL PRN; -NON-FORMULARY DRUG (Cyanocobalamin (Vitamin B-12) [Vitamin B-12] 1,000 MCG) PO SCH; -PROPOFOL 10 MG/ML 20 ML VIAL IV ONE; -RIVAROXABAN 20 MG TAB PO SCH; +RX INFO: IV CONTRAST WAS GIVEN 1 EACH MISC MISCELLANE PRN; +SODIUM CHLORIDE 0.9% 1,000 ML in EMPTY BAG 1 BAG IV SCH; +VERAPAMIL 2.5 MG/ML 2 ML AMP ONE; +VERAPAMIL SYRINGE (5 MG/10 ML) INTRAARTER ONE; +fentaNYL (PF) 50 MCG/1 ML VIAL IVP ONE; +fentaNYL (PF) 50 MCG/ML 2 ML AMP ONE
[2023-09-19 08:53] LABS: Basophils % (A) 0 %; Eosinophils # (A) 0.2 k/uL (0-0.7); Eosinophils % (A) 2 %; HCT 47.2 % (39.0-53.0); HGB 15.4 gm/dL (13.0-17.5); Lymphocytes # (A) 1.3 k/uL (1.0-4.8); Lymphocytes % (A) 18 %; MCH 30.8 pg (25.0-35.0); MCHC 32.7 g/dL (31.0-37.0); MCV 94.2 fL (80.0-100.0); Mean Platelet Volume 7.8; Monocytes # (A) 0.6 k/uL (0-1.0); Monocytes % (A) 8 %; Neutrophils # (A) 4.8 k/uL (1.3-7.7); Neutrophils % (A) 69 %; Platelet Count 194 k/uL (150-450)
[2023-09-19 09:09] LABS: African American GFR (CKD) 88 (>60 ml/min/1.73 sqM); Anion Gap 12 mmol/L; Blood Urea Nitrogen 19 mg/dL (9-20); Carbon Dioxide 21 mmol/L (22-30); Chloride 106 mmol/L (98-107); Glucose 119 mg/dL (74-99); Non-African American GFR(CKD) 76 (>60 ml/min/1.73 sqM); Sodium 139 mmol/L (137-145)
[2023-09-19 09:13] VITALS: RESP 18; TEMP 98.2
--- NOTE | 2023-09-19 11:21 | P.CARDCATH ---
Date of Procedure: 09/19/23 Description of Procedure: Cardiac Catheterization: The patient is an 82-year-old male known history of hypertension, hyperlipidemia who has been complaining of progressive dyspnea and had an abnormal MPI. He has a known history of atrial fibrillation. Recommendations were made regarding cardiac catheterization, the risks and the complications were discussed with the patient who is in full understanding and agreement. Procedure Description: Patient was brought to [facility] in fasting semi-sedated state after receiving Fentanyl and Benadryl achieiving moderate conscious sedated state. Using Xylocaine Anesthesia and modified Seldinger technique, a 6-Congolese sheath was introduced in the right radial artery . Subsequently, selective coronary angiography was performed using a 5-Congolese 3.5 bend Audrey catheter. Multiple views of the coronary artery including hemiaxial views were obtained. The 5-Congolese pigtail catheter was used to cross the aortic valve and LVEDP was calculated. Following that, catheter and sheath were removed. Hemostasis was obtained with deployment of vascular band . There was no immediate complication. Patient was returned to room in stable condition. Of note, the patient received a total of 5000 units of intravenous heparin as well as intra-arterial verapamil. Findings: Fluoroscopy: Calcifications of the LAD was noted Left main: This is a large size vessel, bifurcating into LAD and left circumflex, the distal left main has about a 10% to 20% plaque. LAD: This is a large size vessel, giving rise to a very proximal diagonal branch. The proximal LAD has mild intimal disease of 20% with no high-grade stenosis Left circumflex: This is a large nondominant vessel giving rise to 2 obtuse marginal branch. The proximal left circumflex has 10-20% plaque. The rest of the vessel has no high-grade stenosis. RCA: This is a large dominant vessel, bifurcating distally into PDA and PLV. The midright coronary artery stent 20% plaque that is of the vessel has no high- grade stenosis Left Ventriculogram: Not performed Hemodynamics: There was no gradient across the aortic valve , LVEDP was 16-20 mmHg Conclusion: 1. Calcified LAD 2. Mild triple-vessel disease 3. Mild distal left main disease 4. Right dominance Recommendations: The patient will continue on aggressive coronary risks modifications. The findings and the recommendations were discussed with the patient and the family and they were in full understanding and agreement. Duration of sedation is 18 minutes.
[2023-09-19 15:17] VITALS: BP 128/80; PULSE 62
== END | disposition home or self-care (01) ==
LOC: CATHCVL 08:19
PROVIDERS: ATTEND Internal Medicine Interventional Cardiology
DX: I48.19 Other persistent atrial fibrillation (principal); I25.10 Atherosclerotic heart disease of native coronary artery without angina pectoris; I10 Essential (primary) hypertension; E78.5 Hyperlipidemia, unspecified; Z79.01 Long term (current) use of anticoagulants; Z79.899 Other long term (current) drug therapy; Z95.2 Presence of prosthetic heart valve
CPT/HCPCS: 99152; 93458; 80048; 85025; C1769 ×2; C1894; J2001; J1644; Q9967; J3010

== ENCOUNTER 2023-10-16 04:22 | Observation (INO) | payer MEDICARE ==
--- NOTE | 2023-10-16 04:26 | ED ---
Trauma HPI - General Stated Complaint: Fall Time Seen by Provider: 10/16/23 04:25 - History of Present Illness Initial Comments: 82-year-old male presents to the emergency department today via ambulance. Patient reports that around 8 PM last night he fell in his bathroom resulting in injury to his right elbow. He did strike his head but doesn't believe he lost consciousness. Patient reports a April the pain in his arm he was able to crawl so he remained on the floor most the night until he was able to get to a phone this morning and call for assistance. Ambulance found him on the floor with obvious deformity to the right elbow and brought to the ER for evaluation. - Related Data Home Medications Medication Instructions Recorded Confirmed Cyanocobalamin (Vitamin B-12) 2,000 mcg PO QAM 05/29/18 09/19/23 [Vitamin B-12] Metoprolol Tartrate 25 mg PO BID 05/29/18 09/19/23 Multivitamins, Thera [Multivitamin 1 tab PO QAM 05/29/18 09/19/23 (formulary)] Rivaroxaban [Xarelto] 20 mg PO HS 05/29/18 09/19/23 Tamsulosin HCl [Flomax] 0.4 mg PO HS 05/29/18 09/19/23 Albuterol Sulfate [Albuterol 1 puff PO RT-Q4H PRN 10/07/21 09/19/23 Sulfate Hfa] Folic Acid 0.4 mg PO QAM 10/07/21 09/19/23 Fluticasone Nasal Mather [Flonase 1 spray EA NOSTRIL BID PRN 06/02/22 09/19/23 Nasal Mather] Losartan [Cozaar] 25 mg PO DAILY 06/02/22 09/19/23 Amiodarone [Cordarone] 100 mg PO HS 09/07/23 09/19/23 Fluticasone/Umeclidin/Vilanter 1 spray NASAL QAM 09/07/23 09/19/23 [Trelegy Ellipta 200-62.5-25] Allergies Allergy/AdvReac Type Severity Reaction Status Date / Time rosuvastatin [From Crestor] AdvReac muscle Verified 09/19/23 08:49 soreness/cramps Review of Systems ROS Statement: Those systems with pertinent positive or pertinent negative responses have been documented in the HPI. ROS Other: All systems not noted in ROS Statement are negative. Past Medical History Past Medical History: Atrial Fibrillation, Asthma, Deep Vein Thrombosis (DVT), Hearing Disorder / Deafness, Hyperlipidemia, Hypertension, Osteoarthritis (OA), Pneumonia, Renal Disease Additional Past Medical History / Comment(s): Hx pneumonia yrs ago, RSV/ hospitalized x 2 weeks in ICU, dvt R calf, hiatal hernia, hx kidney stones, [place] use of bilateral hearing aids. History of Any Multi-Drug Resistant Organisms: None Reported Past Surgical History: Joint Replacement Additional Past Surgical History / Comment(s): Bilateral knee replacements., total L hip arthroplasty, LIS and cardioversions Past Anesthesia/Blood Transfusion Reactions: No Reported Reaction Smoking Status: Never smoker - Past Family History Mother Family Medical History: No Reported History General Exam Limitations: no limitations General appearance: alert, other (Appears uncomfortable) Head exam: Present: normocephalic, other (Abrasion to left side of forehead) Eye exam: Present: PERRL ENT exam: Present: mucous membranes dry Neck exam: Present: normal inspection Respiratory exam: Absent: respiratory distress Cardiovascular Exam: Present: tachycardia, irregular rhythm GI/Abdominal exam: Present: soft, hernia (Umbilical, nontender). Absent: di stended Right Elbow exam: Present: tenderness, swelling, deformity Hand Wrist exam: Present: ecchymosis Vascular: Absent: vascular compromise Course Vital Signs 10/16/23 10/16/23 04:26 07:00 Temperature 98.4 F Pulse Rate 74 115 H Respiratory 24 25 H Rate Blood Pressure 162/97 140/93 O2 Sat by Pulse 95 94 L Oximetry Medical Decision Making - Medical Decision Making Was pt. sent in by a medical professional or institution (, PA, FIELD SERVICE COORDINATOR, urgent care, hospital, or jail...) When possible be specific @ -[No Did you speak to anyone other than the patient for history (EMS, parent, family, police, friend...)? What history was obtained from this source @ -EMS Did you review nursing and triage notes (agree or disagree)? Why? @ -I reviewed and agree with nursing and triage notes Were old charts reviewed (outside hosp., previous admission, EMS record, old EKG, old radiological studies, urgent care reports/EKG's, jail records)? Report findings @ -No old charts were reviewed Differential Diagnosis (chest pain, altered mental status, abdominal pain women, abdominal pain men, vaginal bleeding, weakness, fever, dyspnea, syncope, headache, dizziness, GI bleed, back pain, seizure, CVA, palpatations, mental health)? @ -Trauma EKG interpreted by me (3pts min.). @ -As above X-rays interpreted by me (1pt min.). @ -Right elbow x-ray concerning for distal humerus fracture based on my interpretation CT interpreted by me (1pt min.). @ -CT head with no obvious mass or bleed U/S interpreted by me (1pt. min.). @ -None done What testing was considered but not performed or refused? (CT, X-rays, U/S, labs)? Why? @ -None What meds were considered but not given or refused? Why? @ -None Did you discuss the management of the patient with other professionals (pro fessionals i.e. , PA, FIELD SERVICE COORDINATOR, lab, RT, psych nurse, social media sr strategy manager, emergency veterinary technician, teacher, fourth officer, case checker)? Give summary @ -No Was smoking cessation discussed for >3mins.? @ -No Was critical care preformed (if so, how long)? @ -No Were there social determinants of health that impacted care today? How? (Homelessness, low income, unemployed, alcoholism, drug addiction, transporta tion, low edu. Level, literacy, decrease access to med. care, fdc, rehab)? @ -Transportation Was there de-escalation of care discussed even if they declined (Discuss DNR or withdrawal of care, Hospice)? DNR status @ -No What co-morbidities impacted this encounter? (DM, HTN, Smoking, COPD, CAD, Cancer, CVA, ARF, Chemo, Hep., AIDS, mental health diagnosis, sleep apnea, morbid obesity)? @ -Diabetes Was patient admitted / discharged? Hospital course, mention meds given and route, prescriptions, significant lab abnormalities, going to OR and other pertinent info. @ -The patient was seen and evaluated me upon arrival in the emergency department, 82-year-old male fall at home obvious head trauma, obvious deformity of the right elbow, patient spent over 8 hours on the floor. Labs were initiated. Patient has mild lactic acidosis ever glycemia, chronic kidney d isease. Patient receiving gentle IV fluids. X-ray was indeterminate computed tomography scan was ordered there is a supracondylar fracture, patient is neurovascularly intact. Patient splinted. Patient to be admitted due to A for social work intervention and concerns about safety. Undiagnosed new problem with uncertain prognosis? @ -No Drug Therapy requiring intensive monitoring for toxicity (Heparin, Nitro, Insulin, Cardizem)? @ -No Were any procedures done? @ -No Diagnosis/symptom? @ -Fracture, elbow Acute, or Chronic, or Acute on Chronic? @ -Acute Uncomplicated (without systemic symptoms) or Complicated (systemic symptoms)? @ -Uncomplicated Side effects of treatment? @ -No Exacerbation, Progression, or Severe Exacerbation? @ -No Poses a threat to life or bodily function? How? (Chest pain, USA, NC, pneumonia, PE, COPD, DKA, ARF, appy, cholecystitis, CVA, Diverticulitis, Homicidal, Suicidal, threat to staff... and all critical care pts) @ -No - Lab Data Result diagrams: 10/16/23 05:14 10/16/23 05:14 Lab Results 10/16/23 10/16/23 10/16/23 Range/Units 05:14 05:14 05:14 WBC 10.3 (3.8-10.6) k/uL RBC 5.04 (4.30-5.90) m/uL Hgb 15.5 (13.0-17.5) gm/dL Hct 47.8 (39.0-53.0) % MCV 94.9 (80.0-100.0) fL MCH 30.7 (25.0-35.0) pg MCHC 32.4 (31.0-37.0) g/dL RDW 14.8 (11.5-15.5) % Plt Count 146 L (150-450) k/uL MPV 8.7 Neutrophils % 89 % Lymphocytes % 4 % Monocytes % 5 % Eosinophils % 1 % Basophils % 0 % Neutrophils # 9.2 H (1.3-7.7) k/uL Lymphocytes # 0.4 L (1.0-4.8) k/uL Monocytes # 0.5 (0-1.0) k/uL Eosinophils # 0.1 (0-0.7) k/uL Basophils # 0.0 (0-0.2) k/uL PT 11.7 (10.0-12.5) sec INR 1.1 (<1.2) APTT 23.1 (22.0-30.0) sec Sodium 133 L (137-145) mmol/L Potassium 4.6 (3.5-5.1) mmol/L Chloride 99 (98-107) mmol/L Carbon Dioxide 23 (22-30) mmol/L Anion Gap 11 mmol/L BUN 20 (9-20) mg/dL Creatinine 1.48 H (0.66-1.25) mg/dL Est GFR (CKD-EPI)AfAm 51 (>60 ml/min/1.73 sqM) Est GFR (CKD-EPI)NonAf 44 (>60 ml/min/1.73 sqM) Glucose 145 H (74-99) mg/dL Plasma Lactic Acid Efren (0.7-2.0) mmol/L Calcium 9.1 (8.4-10.2) mg/dL Total Bilirubin 0.9 (0.2-1.3) mg/dL AST 33 (17-59) U/L ALT 21 (4-49) U/L Alkaline Phosphatase 94 (38-126) U/L Creatine Kinase 205 H (55-170) U/L Troponin I (0.000-0.034) ng/mL Total Protein 6.5 (6.3-8.2) g/dL Albumin 4.1 (3.5-5.0) g/dL Serum Alcohol <10 mg/dL Blood Type Blood Type Recheck Bld Type Recheck Status Antibody Screen Spec Expiration Date 10/16/23 10/16/23 10/16/23 Range/Units 05:14 05:14 05:14 WBC (3.8-10.6) k/uL RBC (4.30-5.90) m/uL Hgb (13.0-17.5) gm/dL Hct (39.0-53.0) % MCV (80.0-100.0) fL MCH (25.0-35.0) pg MCHC (31.0-37.0) g/dL RDW (11.5-15.5) % Plt Count (150-450) k/uL MPV Neutrophils % % Lymphocytes % % Monocytes % % Eosinophils % % Basophils % % Neutrophils # (1.3-7.7) k/uL Lymphocytes # (1.0-4.8) k/uL Monocytes # (0-1.0) k/uL Eosinophils # (0-0.7) k/uL Basophils # (0-0.2) k/uL PT (10.0-12.5) sec INR (<1.2) APTT (22.0-30.0) sec Sodium (137-145) mmol/L Potassium (3.5-5.1) mmol/L Chloride (98-107) mmol/L Carbon Dioxide (22-30) mmol/L Anion Gap mmol/L BUN (9-20) mg/dL Creatinine (0.66-1.25) mg/dL Est GFR (CKD-EPI)AfAm (>60 ml/min/1.73 sqM) Est GFR (CKD-EPI)NonAf (>60 ml/min/1.73 sqM) Glucose (74-99) mg/dL Plasma Lactic Acid Efern 2.4 H* (0.7-2.0) mmol/L Calcium (8.4-10.2) mg/dL Total Bilirubin (0.2-1.3) mg/dL AST (17-59) U/L ALT (4-49) U/L Alkaline Phosphatase (38-126) U/L Creatine Kinase (55-170) U/L Troponin I 0.026 (0.000-0.034) ng/mL Total Protein (6.3-8.2) g/dL Albumin (3.5-5.0) g/dL Serum Alcohol mg/dL Blood Type A Positive Blood Type Recheck A Pos Bld Type Recheck Status No Antibody Screen NEGATIVE Spec Expiration Date 10/19/20232313 - EKG Data -: EKG Interpreted by Me Rate: tachycardia EKG Comments: EKG interpreted by me, EKG obtained his prior trauma workup EKG obtained at 5:07 AM, rate is 116 rhythm and it is their complex irregular rhythm consistent with atrial fibrillation with rapid ventricular response, bifascicular block noted, no obvious ST elevations or depressions no evidence of ischemia or infarction. Disposition Clinical Impression: Fall, Elbow fracture, right, Atrial fibrillation with RVR, Lactic acidosis, Hyperglycemia due to type 2 diabetes mellitus, CKD (chronic kidney disease) Disposition: ADMITTED IP TO THIS HOSP Condition: Stable Is patient prescribed a controlled substance at d/c from ED?: No Referrals: Buzz Zimmerman MD [Primary Care Provider] - 1-2 days
[2023-10-16 05:46] LABS: Basophils % (A) 0 %; Eosinophils # (A) 0.1 k/uL (0-0.7); Eosinophils % (A) 1 %; HCT 47.8 % (39.0-53.0); HGB 15.5 gm/dL (13.0-17.5); Lymphocytes # (A) 0.4 k/uL (1.0-4.8); Lymphocytes % (A) 4 %; MCH 30.7 pg (25.0-35.0); MCHC 32.4 g/dL (31.0-37.0); MCV 94.9 fL (80.0-100.0); Mean Platelet Volume 8.7; Monocytes # (A) 0.5 k/uL (0-1.0); Monocytes % (A) 5 %; Neutrophils # (A) 9.2 k/uL (1.3-7.7); Neutrophils % (A) 89 %; Platelet Count 146 k/uL (150-450); RBC 5.04 m/uL (4.30-5.90); RDW 14.8 % (11.5-15.5); WBC 10.3 k/uL (3.8-10.6)
--- NOTE | 2023-10-16 05:49 | XR ---
EXAM: XR Right Wrist Complete, 3 or More Views CLINICAL HISTORY: Deformity TECHNIQUE: Frontal, lateral and oblique views of the right wrist. COMPARISON: No relevant prior studies available. FINDINGS: Bones/joints: No acute fracture. No dislocation. Degenerative changes of the first digit carpometacarpal joint. Soft tissues: Unremarkable. No radiopaque foreign body. IMPRESSION: No acute post-traumatic abnormality.
--- NOTE | 2023-10-16 05:54 | XR ---
EXAM: XR Right Elbow Complete, 3 or More Views CLINICAL HISTORY: Deformity TECHNIQUE: Frontal, lateral and oblique views of the right elbow. COMPARISON: No relevant prior studies available. FINDINGS: Soft tissue swelling surrounding the elbow. Degenerative changes with hypertrophic spurring throughout the elbow. No acute fracture or dislocation. Bone mineralization within normal limits. IMPRESSION: Soft tissue swelling. No definite fracture or dislocation. Diffuse degenerative changes.
--- NOTE | 2023-10-16 05:55 | XR ---
EXAM: XR Pelvis, 1 or 2 Views CLINICAL HISTORY: Trauma TECHNIQUE: Frontal view of the pelvis. COMPARISON: No relevant prior studies available. FINDINGS: Left hip bipolar arthroplasty in anatomic position. Degenerative changes of the lumbar spine and right hip. No acute fracture or dislocation. Bones are osteopenic. Soft tissues are unremarkable. IMPRESSION: No acute post-traumatic abnormality.
--- NOTE | 2023-10-16 05:57 | XR ---
EXAM: XR Chest, 1 View CLINICAL HISTORY: Trauma TECHNIQUE: Frontal view of the chest. COMPARISON: 06/02/2022. FINDINGS: Patient is slightly rotated to the right. Heart and mediastinum are enlarged low relatively prominent. No CHF. No pleural effusion or pneumothorax. Bones are unremarkable. IMPRESSION: Amended rotated examination. Enlarged cardiomediastinal silhouette, likely positional. Recommend repeat straight frontal view to rule out mediastinal widening.
[2023-10-16 06:03] LABS: INR 1.1 (<1.2); Partial Thromboplastin Time 23.1 sec (22.0-30.0); Prothrombin Time 11.7 sec (10.0-12.5)
--- NOTE | 2023-10-16 06:23 | CT ---
EXAM: CT Head Without Intravenous Contrast CLINICAL HISTORY: ITS.REASON CT Reason: fall TECHNIQUE: Axial computed tomography images of the head/brain without intravenous contrast. CTDI is 45.2 mGy and DLP is 881.25 mGy-cm. This CT exam was performed using one or more of the following dose reduction techniques: automated exposure control, adjustment of the mA and/or kV according to patient size, and/or use of iterative reconstruction technique. COMPARISON: No relevant prior studies available. FINDINGS: There is no acute intracranial hemorrhage or major vascular territory infarct. No mass effect or midline shift seen. There is prominence of the ventricles and sulci consistent with generalized parenchymal volume loss. Scattered hypodensities throughout the periventricular and subcortical white matter are noted, likely sequela of chronic microvascular changes. The calvarium is intact. Orbits unremarkable. Mucosal thickening in the right ethmoid sinuses. The mastoid air cells are clear. IMPRESSION: No acute intracranial pathology. Generalized parenchymal volume loss and sequela of chronic microvascular ischemic angiopathy. EXAM: CT Cervical Spine Without Intravenous Contrast CLINICAL HISTORY: ITS.REASON CT Reason: fall TECHNIQUE: Axial computed tomography images of the cervical spine without intravenous contrast. CTDI is 22.6 mGy and DLP is 881.25 mGy-cm. This CT exam was performed using one or more of the following dose reduction techniques: automated exposure control, adjustment of the mA and/or kV according to patient size, and/or use of iterative reconstruction technique. COMPARISON: No relevant prior studies available. FINDINGS: No acute fracture or traumatic subluxation. Calcification of the transverse ligament which can be seen in the setting of crowned dens syndrome. Prominent multilevel cervical spondylosis which would be better evaluated by MRI. Moderate to severe narrowing at C3-4. The prevertebral and paraspinal soft tissues are grossly unremarkable. Visualized lung apices are clear. IMPRESSION: No acute fracture or traumatic subluxation. Prominent multilevel cervical spondylosis which would be better evaluated by MRI.
[2023-10-16 06:28] LABS: ALT 21 U/L (4-49); AST 33 U/L (17-59); African American GFR (CKD) 51 (>60 ml/min/1.73 sqM); Albumin 4.1 g/dL (3.5-5.0); Alcohol <10 mg/dL; Alkaline Phosphatase 94 U/L (38-126); Anion Gap 11 mmol/L; Blood Urea Nitrogen 20 mg/dL (9-20); Calcium 9.1 mg/dL (8.4-10.2); Carbon Dioxide 23 mmol/L (22-30); Chloride 99 mmol/L (98-107); Creatine Kinase 205 U/L (55-170); Glucose 145 mg/dL (74-99); Non-African American GFR(CKD) 44 (>60 ml/min/1.73 sqM); Potassium 4.6 mmol/L (3.5-5.1); Sodium 133 mmol/L (137-145); Total Bilirubin 0.9 mg/dL (0.2-1.3); Total Protein 6.5 g/dL (6.3-8.2)
--- NOTE | 2023-10-16 08:20 | CT ---
EXAMINATION TYPE: CT elbow RT wo con DATE OF EXAM: 10/16/2023 COMPARISON: Right elbow x-ray earlier today HISTORY: Fall, trauma to RT elbow, possible fracture CT DLP: 433.5 mGycm Automated exposure control for dose reduction was used. FINDINGS: Nondisplaced transverse fracture through the supracondylar region of the distal humerus. Fracture edouard e is fairly well corticated with tiny adjacent densities could reflect small fracture fragments and m ild to moderate adjacent subcutaneous edema raising concern for acute or subacute age or injury. No s ignificant joint effusion is seen. No elbow dislocation. IMPRESSION: Age-indeterminate transverse supracondylar fracture of the distal humerus. Acute or subac [place] etiology cannot be excluded.
[2023-10-16] MEDS ORDERED: NALOXONE 0.4 MG/ML 1 ML VIAL IV PRN (08:27)
[2023-10-16] MEDS ORDERED: MORPHINE SULFATE 4 MG/ML SYRINGE IV PRN (08:27)
[2023-10-16 11:22] LABS: Amphetamine Screen,Urine Not Detected (NotDetected); Barbiturate Screen,Urine Not Detected (NotDetected); Benzodiazepines Screen,Urine Not Detected (NotDetected); Cocaine Screen,Urine Not Detected (NotDetected); Methadone Screen, Urine Not Detected (NotDetected); Opiate Screen,Urine Not Detected (NotDetected); Oxycodone Screen, Urine Not Detected (NotDetected); Phencyclidine Screen,Urine Not Detected (NotDetected); Tricyclic Antidepressant,Urine Not Detected (NotDetected); Urn Cannabinoid Scrn Not Detected (NotDetected)
[2023-10-16] MEDS ORDERED: ALBUTEROL NEBULIZED 2.5 MG/3 ML INHALATION PRN (12:12)
[2023-10-16] MEDS ORDERED: FLUTICASONE 50MCG/SPRAY NASAL 16GM EA NOSTRIL PRN (12:12)
[2023-10-16] MEDS ORDERED: SENNOSIDES 8.6 MG TAB PO PRN (12:35)
--- NOTE | 2023-10-16 12:38 | P.CNOR ---
History of Present Illness - [facility] Consult date: 10/16/23 Requesting physician: Arina Cardoza Consult reason: other (right elbow fracture) History of present illness: Patient is an 82-year-old male who presents to the emergency department this morning via ambulance with chief complaint of right elbow pain. Patient was seen at bedside this morning in the emergency room with a splint to the right upper extremity. Patient says last night he was walking downstairs when he missed the last step and fell onto the floor landing onto his right elbow. Patient states he does not believe that he lost consciousness. Patient states he spent most of last night on the floor before he was able to crawl to the phone and call ambulance. Patient says he does have previous history of knee replacements and hip surgery. Patient states pain is located to the right elbow at this time. Patient denies radiation of pain. Patient denies any numbnes s/tingling down the right upper extremity. Patient denies any previous history of stroke or heart attack. Patient states at baseline he does ambulate independently. Patient denies chest pain, fever, shortness of breath, nausea, vomiting, change in vision, loss of bowel/bladder control. Past Medical History Past Medical History: Atrial Fibrillation, Asthma, Deep Vein Thrombosis (DVT), Hearing Disorder / Deafness, Hyperlipidemia, Hypertension, Osteoarthritis (OA), Pneumonia, Renal Disease Additional Past Medical History / Comment(s): Hx pneumonia yrs ago, RSV/ hospitalized x 2 weeks in ICU, dvt R calf, hiatal hernia, hx kidney stones, [place] use of bilateral hearing aids. History of Any Multi-Drug Resistant Organisms: None Reported Past Surgical History: Joint Replacement Additional Past Surgical History / Comment(s): Bilateral knee replacements., t otal L hip arthroplasty, LIS and cardioversions Past Anesthesia/Blood Transfusion Reactions: No Reported Reaction Smoking Status: Never smoker - Past Family History Mother Family Medical History: No Reported History Medications and Allergies Home Medications Medication Instructions Recorded Confirmed Type Cyanocobalamin (Vitamin B-12) 2,000 mcg PO QAM 05/29/18 10/16/23 History [Vitamin B-12] Metoprolol Tartrate 25 mg PO BID 05/29/18 10/16/23 History Multivitamins, Thera [Multivitamin 1 tab PO QAM 05/29/18 10/16/23 History (formulary)] Rivaroxaban [Xarelto] 20 mg PO HS 05/29/18 10/16/23 History Tamsulosin HCl [Flomax] 0.4 mg PO HS 05/29/18 10/16/23 History Albuterol Sulfate [Albuterol 1 puff PO RT-Q4H PRN 10/07/21 10/16/23 History Sulfate Hfa] Folic Acid 0.4 mg PO QAM 10/07/21 10/16/23 History Fluticasone Nasal [place] [Flonase 1 spray EA NOSTRIL BID PRN 06/02/22 10/16/23 History Nasal [place]] Fluticasone/Umeclidin/Vilanter 1 puff INHALATION RT-DAILY 09/07/23 10/16/23 History [Trelegy Ellipta 200-62.5-25] Amiodarone [Cordarone] 100 mg PO HS 10/16/23 10/16/23 History Atorvastatin [Lipitor] 40 mg PO HS 10/16/23 10/16/23 History Ezetimibe [Zetia] 10 mg PO DAILY 10/16/23 10/16/23 History Isosorbide Mononitrate ER [Imdur] 30 mg PO DAILY 10/16/23 10/16/23 History Levocetirizine Dihydrochloride 5 mg PO HS 10/16/23 10/16/23 History [Xyzal] Sulfamethox-Tmp 800-160Mg [Bactrim 1 tab PO Q12HR 10/16/23 10/16/23 History DS 800-160 mg] Allergies Allergy/AdvReac Type Severity Reaction Status Date / Time rosuvastatin [From Crestor] AdvReac muscle Verified 10/16/23 10:15 soreness/cramps Physical Examination Inspection: Johnny bandage and long-arm splint present to the right upper extremity. Negative for any open fractures. Sensation: Equal, symmetric, bilaterally intact throughout the upper and lower extremities Palpation: Moderate to severe TTP diffusely throughout the right elbow and the proximal humerus in the right upper extremity. Nontender to palpation throughout rest exam. Range of motion: Patient is able to wiggle digits and right upper extremity without pain. Patient does have limited range of motion in right wrist and elbow secondary to pain and splint in place. Patient has full range of motion throughout left upper extremity on exam. Motor: Right upper extremity motor exam limited secondary to pain and injury to the right elbow and splint. 4+/5 in all major motor groups and left upper extremity. 4+/5 in all major motor groups BLE Special tests: Negative Homans bilaterally. Negative Nilesh's bilaterally. Neurovascular status: Radial pulses intact, 2+ bilaterally. Cap refill under 3 seconds in digits of UE. Results - Labs Labs: Abnormal Lab Results - Last 24 Hours (Table) 10/16/23 10/16/23 10/16/23 Range/Units 05:14 05:14 05:14 Plt Count 146 L (150-450) k/uL Neutrophils # 9.2 H (1.3-7.7) k/uL Lymphocytes # 0.4 L (1.0-4.8) k/uL Sodium 133 L (137-145) mmol/L Creatinine 1.48 H (0.66-1.25) mg/dL Glucose 145 H (74-99) mg/dL Plasma Lactic Acid Efren 2.4 H* (0.7-2.0) mmol/L Creatine Kinase 205 H (55-170) U/L 10/16/23 Range/Units 09:47 Plt Count (150-450) k/uL Neutrophils # (1.3-7.7) k/uL Lymphocytes # (1.0-4.8) k/uL Sodium (137-145) mmol/L Creatinine (0.66-1.25) mg/dL Glucose (74-99) mg/dL Plasma Lactic Acid Efren 2.1 H* (0.7-2.0) mmol/L Creatine Kinase (55-170) U/L H & H 10/16/23 Range/Units 05:14 Hgb 15.5 (13.0-17.5) gm/dL Hct 47.8 (39.0-53.0) % Coagulation 10/16/23 Range/Units 05:14 INR 1.1 (<1.2) Result Diagrams: 10/16/23 05:14 10/16/23 05:14 - Diagnostic results Elbow CT: report reviewed, image reviewed (Computed tomography scan and x-ray of the right elbow do reveal right distal humerus supracondylar fracture. Negative for any significant joint effusion or dislocation) Assessment and Plan Assessment: 1. Right upper extremity distal humerus fracture Plan: 1. Right upper extremity distal humerus fracture - Computed tomography scan and x-ray of the right elbow do reveal right distal humerus supracondylar fracture. Negative for any significant joint effusion or dislocation. Patient stable at bedside with splint in place. I did discuss the findings of the imaging and exam with my attending, Dr. Alvarez. At this time we are recommending surgical intervention in the form of ORIF right distal humerus. Surgery has been sche duled for 10/18/2023. Patient does need medical clearance for surgery. Patient may weight-bear as tolerated lower extremities. Splint in place to RUE --NWB RUE. Sling to be applied to the upper extremity as well. We'll continue follow patient during a standard hospital. Patient to be nothing by mouth starting midnight tomorrow night. 2. Appreciate medical management - patient does need medical clearance for surgery 3. Pain management - tramadol; tylenol 4. GI prophylaxis - senna 5. DVT prophylaxis - mechanical; withhold thinners at this time 6. PT/OT - nonweightbearing right upper extremity. Maintain in splint at all times. Maintain in sling. Weight-bear as tolerated bilateral lower extremities 7. Encourage incentive spirometer use 8. Appreciate consult Time with Patient: Less than 30
[2023-10-16] MEDS: ACETAMINOPHEN TAB 325 MG TAB PO PRN ×2 (13:58→20:11)
[2023-10-16] MEDS: ISOSORBIDE MONONITRATE ER 30 MG TAB.ER.24H PO SCH (13:58)
[2023-10-16] MEDS: METOPROLOL TARTRATE 25 MG TAB PO SCH ×2 (13:58→22:23)
[2023-10-16 14:37] LABS: Appearance,Urine Clear (Clear); Bilirubin,Urine Negative (Negative); Blood,Urine Large (Negative); Color,Urine Yellow; Glucose,Urine (UA) Negative (Negative); Ketones,Urine Trace (Negative); Leukocyte Esterase,Urine Negative (Negative); Mucus,Urine Rare /hpf; Nitrite,Urine Negative (Negative); PH, Urine 5.5 (5.0-8.0); Protein,Urine Trace (Negative); RBC,Urine 54 /hpf (0-5); Urobilinogen,Urine <2.0 mg/dL (<2.0); WBC,Urine 9 /hpf (0-5)
[2023-10-16] MEDS: traMADol 50 MG TAB PO SCH ×2 (17:45→22:23)
[2023-10-16] MEDS: ATORVASTATIN 40 MG TAB PO SCH (20:11)
[2023-10-16] MEDS: TAMSULOSIN 0.4 MG CAP.ER.24H PO SCH (20:11)
[2023-10-16] MEDS ORDERED: SULFAMETHOX-TMP 800-160MG 1 EACH TAB PO SCH (21:00)
[2023-10-16] MEDS: AMIODARONE 100 MG TAB PO SCH (22:23)
[2023-10-17] MEDS: traMADol 50 MG TAB PO SCH ×3 (08:14→21:34)
[2023-10-17] MEDS: MULTIVITAMINS, THERA 1 EACH TAB PO SCH (08:14)
[2023-10-17] MEDS: FOLIC ACID 1 MG TAB PO SCH (08:14)
[2023-10-17] MEDS: CYANOCOBALAMIN 500 MCG TAB PO SCH (08:15)
[2023-10-17] MEDS: EZETIMIBE 10 MG TAB PO SCH (08:15)
[2023-10-17] MEDS: ISOSORBIDE MONONITRATE ER 30 MG TAB.ER.24H PO SCH (08:15)
[2023-10-17] MEDS: METOPROLOL TARTRATE 25 MG TAB PO SCH ×2 (08:15→21:34)
[2023-10-17] MEDS: IPRATROPIUM 0.5 MG/2.5 ML NEBU INHALATION SCH ×4 (08:43→18:31)
[2023-10-17] MEDS: SYMBICORT 80-4.5 MCG INHALER INHALATION SCH ×2 (08:43→18:31)
--- NOTE | 2023-10-17 08:45 | P.PN ---
Subjective Progress Note Date: 10/17/23 Principal diagnosis: Right elbow fracture Patient seen and examined this morning. Patient is resting comfortably in bed. Right upper extremity presents with splint and Johnny wrap intact elevated on one pillow. Patient denies any numbness or tingling to the right upper extremity and is able to wiggle fingers. Patient was slightly confused thinking his surgery was today. Continue to encourage patient to elevate right upper extremity and utilize ice packs to decrease swelling. No acute concerns at this time. Objective - Vital Signs Vital signs: Vital Signs Temp 98.0 F 10/17/23 02:00 Pulse 89 10/17/23 02:00 Resp 16 10/17/23 02:00 BP 116/74 10/17/23 02:00 Pulse Ox 92 L 10/17/23 02:00 FiO2 Intake & Output 10/16/23 10/17/23 10/17/23 18:59 06:59 18:59 Intake Total 240 Output Total 800 Balance -560 Weight 106.594 kg Intake: Oral 240 Output: Urine 800 Other: Voiding Method Urinal Diaper Incontinent # Voids 2 - Exam Inspection: Negative for any open fractures, edematous noted to right upper extremity. Right upper extremity presents with Johnny wrap and splint intact, elevated on pillow. Sensation: Sensation is equal, symmetric, bilaterally intact throughout the upper and lower extremities Palpation: Tenderness to palpation over the right elbow. Range of motion: Patient does have full range of motion bilateral upper and lower extremities on exam, limited range of motion to the right elbow due to splint and pain. Motor: 4/5 in all major motor groups in the bilateral upper and lower extremities Special tests: Negative Homans bilaterally. Negative Nilesh bilaterally. Negative clonus bilaterally. Neurovascular: Radial pulse intact, 2+ bilaterally. Cap refill under 3 seconds in digits upper extremities. - Labs CBC & Chem 7: 10/16/23 05:14 10/16/23 05:14 Labs: Abnormal Lab Results - Last 24 Hours (Table) 10/16/23 10/16/23 Range/Units 09:47 14:27 Plasma Lactic Acid Efren 2.1 H* (0.7-2.0) mmol/L Urine Protein Trace H (Negative) Urine Ketones Trace H (Negative) Urine Blood Large H (Negative) Urine RBC 54 H (0-5) /hpf Urine WBC 9 H (0-5) /hpf Urine Mucus Rare H (None) /hpf Assessment and Plan Assessment: Right upper extremity distal humerus fracture Plan: 1. Surgery is scheduled for 10/20/2023. Patient to be NPO at [place] the night before. Surgery is postponed to allow for soft tissue swelling to improve. Patient may either stay inpatient to day of surgery Monday or be DC'd to facility and surgery can be performed outpatient on Monday. 2. Appreciate medical management - patient does need medical clearance for surgery 3. Pain management - tramadol; tylenol 4. GI prophylaxis - senna 5. DVT prophylaxis - Recommend Lovenox if staying in patient and DC lovenox 5pm night before surgery. 6. PT/OT - nonweightbearing right upper extremity. Maintain in splint at all times. Maintain in sling. Weight-bear as tolerated bilateral lower extremities 7. Encourage incentive spirometer use 8. Appreciate consult -Terry Alvarez DO I reviewed and discussed this case with my attending Dr. Alvarez, whom has reviewed this chart and films and is in agreement with assessment and plan of care as outlined above. I have personally seen and examined the patient, performed the documentation and the assessment and plan as written. Number of minutes spent on the visit: 15m.
[2023-10-17] MEDS ORDERED: ENOXAPARIN 30 MG/0.3 ML SYRINGE SQ STA (09:26)
--- NOTE | 2023-10-17 15:45 | P.CONS ---
History of Present Illness - Reason for Consult Consult date: 10/16/23 - History of Present Illness HISTORY OF PRESENT ILLNESS This is a 82-year-old male with past medical history of hypertension, paroxysmal atrial fibrillation on Xarelto, benign prostatic hypertrophy, hiatal hernia, hereditary factor VIII deficiency, hyperlipidemia, mild intermittent asthma, possible COPD. patient presented to the emergency center via ambulance due to fall the previous night in his bathroom. Patient injured his right elbow. No loss of consciousness. Patient ended up staying on the floor for the night, approximately 8 hours, until he was able to crawl and get to a phone call for assistance. He was found to have significant deformity of the right elbow and was brought into the emergency center. Blood pressure was elevated at the time at 162/97 otherwise vital signs were stable and he has been afebrile. The splint has been applied to the right arm and patient is seen today in the emergency center. Platelet count was found to be 146. Sodium 133 and potassium 4.6, creatinine was 1.48 and baseline is 0.9. CK 205. Urinalysis was bloody. Urine drug screen negative. Serum alcohol negative. Patient Efra for been on the [facility] floor and orthopedic consult in place. X-rays of the right wrist showed no acute abnormality. X-ray of the right elbow soft tissue swelling. No definite fracture or dislocation. Diffuse degenerative changes. Chest x-ray: Enlarged cardiomediastinal silhouette. Pelvis x-ray no acute abnormality. CT right elbow: Age indeterminate transverse supracondylar fracture of the distal humerus. Acute or subacute etiology cannot be excluded. CAT scan of the head reveals no acute fracture or traumatic subluxation. Prominent multilevel cervical spondylosis. REVIEW OF SYSTEMS Constitutional: No fever, no chills, no night sweats. No weight change. Reports weakness, Reports fatigue Reports lethargy. No daytime sleepiness. EENT: No headache. No blurred vision or double vision, no loss of vision. No loss of Hearing, no ringing in the ears, no dizziness. No nasal drainage or congestion. No epistaxis. No sore throat. Lungs: Reports shortness of breath, Reports cough, Reports sputum production. Reports wheezing. Cardiovascular: No chest pain, no lower extremity edema. No palpitations. No paroxysmal nocturnal dyspnea. No orthopnea. No lightheadedness or dizziness. No syncopal episodes. Abdominal: No abdominal pain. No nausea, vomiting. No diarrhea. No constipation. No bloody or tarry stools. No loss of appetite. Genitourinary: No dysuria, increased frequency, urgency. No urinary retention. Musculoskeletal: No myalgias. Reports muscle weakness, no gait dysfunction, no frequent falls. No back pain. No neck pain. + Right elbow pain Integumentary: No wounds, no lesions. No rash or pruritus. No unusual bruising. No change in hair or nails. Neurologic: No aphasia. No facial droop. No change in mentation. No head injury. No headache. No paralysis. No paresthesia. Psychiatric: No depression. No anxiety. No mood swings. Endocrine: No abnormal blood sugars. No weight change. No excessive sweating or thirst. No cold intolerance. MEDICAL HISTORY Hypertension Paroxysmal atrial fibrillation Benign prostatic hypertrophy Hiatal hernia Hereditary factor VIII deficiency Hyperlipidemia Mild intermittent asthma COPD SURGICAL HISTORY Hernia repair Bilateral knee replacement SOCIAL HISTORY Patient is a lifelong nonsmoker, no alcohol use or abuse, no marijuana or illicit drug use. Patient lives at home with his . FAMILY HISTORY Father at age 88 from CVA and had CABG 25 years earlier. Mother at age 88 at [facility] with history of hyperlipidemia. Patient has 2 brothers and one at age 21 in airplane crash and the other one has had multiple surgeries. Patient has one son with no major medical problems and one daughter with no major medical problem. PHYSICAL EXAMINATION Gen: This is an obese 82-year-old male, resting in bed, appears to be fairly comfortable at rest. HEENT: Head is atraumatic, normocephalic. Pupils equal, round. Sclerae is anicteric. NECK: Supple. No JVD. No lymphadenopathy. No thyromegaly. LUNGS: Diminished breath sounds bilaterally. No intercostal retractions. HEART: First heart sound is depressed, second heart sound is normal, 2/6 systolic ejection murmur at the left sternal border. ABDOMEN: Soft. Bowel sounds are present. No masses. No tenderness. EXTREMITIES: No pedal edema. No calf tenderness. Pain in the left hip. Dorsalis pedis palpable bilaterally. NEUROLOGICAL: Patient is awake, alert and oriented x3. Cranial nerves 2 through 12 are grossly intact. ASSESSMENT AND PLAN 1. Acute right distal humerus fracture. Consult with orthopedics. Continue patient on morphine 4 mg IV push every 4 hours as needed for pain or tramadol 50 mg 3 times daily for pain. Maintain splint to the right arm. Patient is medically cleared for surgery. 2. Possible UTI. Patient started on ceftriaxone 1 g IV piggyback every 24 hours. 3. COPD without exacerbation. Continue patient on albuterol every 4 hours as needed for shortness of breath, Symbicort 804 0.5 g 2 puffs twice daily. 4. Mild intermittent asthma. Continue Singulair 10 mg at bedtime, Claritin as needed, albuterol nebulizer treatments every 4 hours as needed. 5. Paroxysmal atrial fibrillation. Hold Xarelto 20 mg at bedtime, continue patient on amiodarone 100 mg at bedtime, Lopressor 25 mg twice daily. 6. Benign prostatic hypertrophy. Continue Flomax 0.4 mg at bedtime, monitor for urinary retention. 6. Hereditary factor VIII deficiency. Resume Xarelto once cleared by orthopedic surgeon. 7. Hyperlipidemia. Continue Zetia 10 mg daily 8. Hypertension. Continue losartan 25 mg daily, Lopressor 25 mg twice daily. 9. GI prophylaxis. Protonix 40 mg po daily. 10. DVT prophylaxis. Xarelto will be resumed following surgery once cleared by orthopedics DISCHARGE PLAN Return home Past Medical History Past Medical History: Atrial Fibrillation, Asthma, Deep Vein Thrombosis (DVT), Hearing Disorder / Deafness, Hyperlipidemia, Hypertension, Osteoarthritis (OA), Pneumonia, Renal Disease Additional Past Medical History / Comment(s): Hx pneumonia yrs ago, RSV/ hosp italized x 2 weeks in ICU, dvt R calf, hiatal hernia, hx kidney stones, [place] use of bilateral hearing aids. History of Any Multi-Drug Resistant Organisms: None Reported Past Surgical History: Joint Replacement Additional Past Surgical History / Comment(s): Bilateral knee replacements., total L hip arthroplasty, LIS and cardioversions Past Anesthesia/Blood Transfusion Reactions: No Reported Reaction Past Psychological History: Depression Additional Psychological History / Comment(s): Pt resides alone. Spouse 04/2023 Smoking Status: Former smoker Past Alcohol Use History: Rare Additional Past Alcohol Use History / Comment(s): Quit smoking 50 yrs ago. Past Drug Use History: None Reported - Past Family History Mother Family Medical History: No Reported History Medications and Allergies Home Medications Medication Instructions Recorded Confirmed Type Cyanocobalamin (Vitamin B-12) 2,000 mcg PO QAM 05/29/18 10/16/23 History [Vitamin B-12] Metoprolol Tartrate 25 mg PO BID 05/29/18 10/16/23 History Multivitamins, Thera [Multivitamin 1 tab PO QAM 05/29/18 10/16/23 History (formulary)] Rivaroxaban [Xarelto] 20 mg PO HS 05/29/18 10/16/23 History Tamsulosin HCl [Flomax] 0.4 mg PO HS 05/29/18 10/16/23 History Albuterol Sulfate [Albuterol 1 puff PO RT-Q4H PRN 10/07/21 10/16/23 History Sulfate Hfa] Folic Acid 0.4 mg PO QAM 10/07/21 10/16/23 History Fluticasone Nasal [place] [Flonase 1 spray EA NOSTRIL BID PRN 06/02/22 10/16/23 History Nasal [place]] Fluticasone/Umeclidin/Vilanter 1 puff INHALATION RT-DAILY 09/07/23 10/16/23 History [Trelegy Ellipta 200-62.5-25] Amiodarone [Cordarone] 100 mg PO HS 10/16/23 10/16/23 History Atorvastatin [Lipitor] 40 mg PO HS 10/16/23 10/16/23 History Ezetimibe [Zetia] 10 mg PO DAILY 10/16/23 10/16/23 History Isosorbide Mononitrate ER [Imdur] 30 mg PO DAILY 10/16/23 10/16/23 History Levocetirizine Dihydrochloride 5 mg PO HS 10/16/23 10/16/23 History [Xyzal] Sulfamethox-Tmp 800-160Mg [Bactrim 1 tab PO Q12HR 10/16/23 10/16/23 History DS 800-160 mg] Allergies Allergy/AdvReac Type Severity Reaction Status Date / Time rosuvastatin [From Crestor] AdvReac muscle Verified 10/16/23 10:15 soreness/cramps Physical Exam Vitals: Vital Signs Temp Pulse Pulse Resp BP BP BP 10/17/23 14:18 98.5 F 42 L 16 101/64 10/17/23 11:54 96 10/17/23 11:44 92 10/17/23 08:51 100 10/17/23 08:41 100 10/17/23 07:21 98.7 F 97 16 118/76 10/17/23 02:00 98.0 F 89 16 116/74 10/16/23 20:00 98.6 F 67 16 112/76 10/16/23 17:57 97/52 10/16/23 17:00 95 20 100/63 10/16/23 15:00 117 H 20 125/72 Pulse Ox 10/17/23 14:18 92 L 10/17/23 11:54 10/17/23 11:44 10/17/23 08:51 10/17/23 08:41 10/17/23 07:21 91 L 10/17/23 02:00 92 L 10/16/23 20:00 94 L 10/16/23 17:57 10/16/23 17:00 92 L 10/16/23 15:00 93 L Intake and Output 10/16/23 10/17/23 10/17/23 22:59 06:59 14:59 Intake Total 240 120 Output Total 800 100 Balance 240 -800 20 Intake: Oral 240 120 Output: Urine 800 100 Other: Voiding Method Urinal Urinal Diaper Diaper Incontinent # Voids 2 Weight 106.594 kg Results CBC & Chem 7: 10/16/23 05:14 10/16/23 05:14
--- NOTE | 2023-10-17 16:39 | P.DS ---
Providers Date of admission: 10/16/23 08:27 Expected date of discharge: 10/17/23 Attending physician: Buzz Zimmerman Consults: 10/16/23 08:27 Consult Physician Urgent Consulting Provider: Terry Alvarez Consult Reason/Comments: right elbow fracture Do you want consulting provider notified?: Already Contacted Primary care physician: Buzz Zimmerman [facility] Course: HISTORY OF PRESENT ILLNESS This is a 82-year-old male with past medical history of hypertension, paroxysmal atrial fibrillation on Xarelto, benign prostatic hypertrophy, hiatal hernia, hereditary factor VIII deficiency, hyperlipidemia, mild intermittent asthma, possible COPD. patient presented to the emergency center via ambulance due to fall the previous night in his bathroom. Patient injured his right elbow. No loss of consciousness. Patient ended up staying on the floor for the night, approximately 8 hours, until he was able to crawl and get to a phone call for assistance. He was found to have significant deformity of the right elbow and was brought into the emergency center. Blood pressure was elevated at the time at 162/97 otherwise vital signs were stable and he has been afebrile. The splint has been applied to the right arm and patient is seen today in the emergency center. Platelet count was found to be 146. Sodium 133 and potassium 4.6, creatinine was 1.48 and baseline is 0.9. CK 205. Urinalysis was bloody. Urine drug screen negative. Serum alcohol negative. Patient Efra for been on the [facility] floor and orthopedic consult in place. X-rays of the right wrist showed no acute abnormality. X-ray of the right elbow soft tissue swelling. No definite fracture or dislocation. Diffuse degenerative changes. Chest x-ray: Enlarged cardiomediastinal silhouette. Pelvis x-ray no acute abnormality. CT right elbow: Age indeterminate transverse supracondylar fracture of the distal humerus. Acute or subacute etiology cannot be excluded. CAT scan of the head reveals no acute fracture or traumatic subluxation. Prominent multilevel cervical spondylosis. REVIEW OF SYSTEMS Constitutional: No fever, no chills, no night sweats. No weight change. Reports weakness, Reports fatigue Reports lethargy. No daytime sleepiness. EENT: No headache. No blurred vision or double vision, no loss of vision. No loss of Hearing, no ringing in the ears, no dizziness. No nasal drainage or congestion. No epistaxis. No sore throat. Lungs: Reports shortness of breath, Reports cough, Reports sputum production. Reports wheezing. Cardiovascular: No chest pain, no lower extremity edema. No palpitations. No paroxysmal nocturnal dyspnea. No orthopnea. No lightheadedness or dizziness. No syncopal episodes. Abdominal: No abdominal pain. No nausea, vomiting. No diarrhea. No constipation. No bloody or tarry stools. No loss of appetite. Genitourinary: No dysuria, increased frequency, urgency. No urinary retention. Musculoskeletal: No myalgias. Reports muscle weakness, no gait dysfunction, no frequent falls. No back pain. No neck pain. + Right elbow pain Integumentary: No wounds, no lesions. No rash or pruritus. No unusual bru ising. No change in hair or nails. Neurologic: No aphasia. No facial droop. No change in mentation. No head injury. No headache. No paralysis. No paresthesia. Psychiatric: No depression. No anxiety. No mood swings. Endocrine: No abnormal blood sugars. No weight change. No excessive sweating or thirst. No cold intolerance. MEDICAL HISTORY Hypertension Paroxysmal atrial fibrillation Benign prostatic hypertrophy Hiatal hernia Hereditary factor VIII deficiency Hyperlipidemia Mild intermittent asthma COPD SURGICAL HISTORY Hernia repair Bilateral knee replacement SOCIAL HISTORY Patient is a lifelong nonsmoker, no alcohol use or abuse, no marijuana or illicit drug use. Patient lives at home with his . FAMILY HISTORY Father at age 88 from CVA and had CABG 25 years earlier. Mother at age 88 at [facility] with history of hyperlipidemia. Patient has 2 brothers and one at age 21 in airplane crash and the other one has had multiple surgeries. Patient has one son with no major medical problems and one daughter with no major medical problem. PHYSICAL EXAMINATION Gen: This is an obese 82-year-old male, resting in bed, appears to be fairly comfortable at rest. HEENT: Head is atraumatic, normocephalic. Pupils equal, round. Sclerae is anicteric. NECK: Supple. No JVD. No lymphadenopathy. No thyromegaly. LUNGS: Diminished breath sounds bilaterally. No intercostal retractions. HEART: First heart sound is depressed, second heart sound is normal, 2/6 systolic ejection murmur at the left sternal border. ABDOMEN: Soft. Bowel sounds are present. No masses. No tenderness. EXTREMITIES: No pedal edema. No calf tenderness. Pain in the left hip. Dorsalis pedis palpable bilaterally. NEUROLOGICAL: Patient is awake, alert and oriented x3. Cranial nerves 2 through 12 are grossly intact. ASSESSMENT AND PLAN 1. Acute right distal humerus fracture. Consult with orthopedics. Continue patient on morphine 4 mg IV push every 4 hours as needed for pain or tramadol 50 mg 3 times daily for pain. Maintain splint to the right arm. Patient is medically cleared for surgery. 2. Possible UTI. Patient started on ceftriaxone 1 g IV piggyback every 24 hours. 3. COPD without exacerbation. Continue patient on albuterol every 4 hours as needed for shortness of breath, Symbicort 804 0.5 g 2 puffs twice daily. 4. Mild intermittent asthma. Continue Singulair 10 mg at bedtime, Claritin as needed, albuterol nebulizer treatments every 4 hours as needed. 5. Paroxysmal atrial fibrillation. Hold Xarelto 20 mg at bedtime, continue patient on amiodarone 100 mg at bedtime, Lopressor 25 mg twice daily. 6. Benign prostatic hypertrophy. Continue Flomax 0.4 mg at bedtime, monitor for urinary retention. 6. Hereditary factor VIII deficiency. Resume Xarelto once cleared by orthopedic surgeon. 7. Hyperlipidemia. Continue Zetia 10 mg daily 8. Hypertension. Continue losartan 25 mg daily, Lopressor 25 mg twice daily. 9. GI prophylaxis. Protonix 40 mg po daily. 10. DVT prophylaxis. Xarelto will be resumed following surgery once cleared by orthopedics DISCHARGE PLAN Return home Patient Condition at Discharge: Stable Plan - Discharge Summary New Discharge Prescriptions: New Sennosides [Senokot] 8.6 mg PO DAILY PRN tab PRN Reason: Constipation Continue Metoprolol Tartrate 25 mg PO BID Rivaroxaban [Xarelto] 20 mg PO HS Multivitamins, Thera [Multivitamin (formulary)] 1 tab PO QAM Tamsulosin HCl [Flomax] 0.4 mg PO HS Cyanocobalamin (Vitamin B-12) [Vitamin B-12] 2,000 mcg PO QAM Fluticasone/Umeclidin/Vilanter [Trelegy Ellipta 200-62.5-25] 1 puff INHALATION RT-DAILY Isosorbide Mononitrate ER [Imdur] 30 mg PO DAILY Ezetimibe [Zetia] 10 mg PO DAILY Folic Acid 0.4 mg PO QAM Albuterol Sulfate [Albuterol Sulfate Hfa] 1 puff PO RT-Q4H PRN PRN Reason: Shortness Of Breath Fluticasone Nasal [place] [Flonase Nasal [place]] 1 spray EA NOSTRIL BID PRN PRN Reason: Allergy Symptoms Sulfamethox-Tmp 800-160Mg [Bactrim DS 800-160 mg] 1 tab PO Q12HR Atorvastatin [Lipitor] 40 mg PO HS Amiodarone [Cordarone] 100 mg PO HS Levocetirizine Dihydrochloride [Xyzal] 5 mg PO HS Discharge Medication List Cyanocobalamin (Vitamin B-12) [Vitamin B-12] 2,000 mcg PO QAM 05/29/18 [History] Metoprolol Tartrate 25 mg PO BID 05/29/18 [History] Multivitamins, Thera [Multivitamin (formulary)] 1 tab PO QAM 05/29/18 [History] Rivaroxaban [Xarelto] 20 mg PO HS 05/29/18 [History] Tamsulosin HCl [Flomax] 0.4 mg PO HS 05/29/18 [History] Albuterol Sulfate [Albuterol Sulfate Hfa] 1 puff PO RT-Q4H PRN 10/07/21 [History] Folic Acid 0.4 mg PO QAM 10/07/21 [History] Fluticasone Nasal [place] [Flonase Nasal [place]] 1 spray EA NOSTRIL BID PRN 06/02/22 [History] Fluticasone/Umeclidin/Vilanter [Trelegy Ellipta 200-62.5-25] 1 puff INHALATION RT-DAILY 09/07/23 [History] Amiodarone [Cordarone] 100 mg PO HS 10/16/23 [History] Atorvastatin [Lipitor] 40 mg PO HS 10/16/23 [History] Ezetimibe [Zetia] 10 mg PO DAILY 10/16/23 [History] Isosorbide Mononitrate ER [Imdur] 30 mg PO DAILY 10/16/23 [History] Levocetirizine Dihydrochloride [Xyzal] 5 mg PO HS 10/16/23 [History] Sulfamethox-Tmp 800-160Mg [Bactrim DS 800-160 mg] 1 tab PO Q12HR 10/16/23 [History] Sennosides [Senokot] 8.6 mg PO DAILY PRN tab 10/17/23 [Rx] Follow up Appointment(s)/Referral(s): Buzz Zimmerman MD [Primary Care Provider] - As Needed Discharge Disposition: HOME SELF-CARE
[2023-10-17] MEDS: ACETAMINOPHEN TAB 325 MG TAB PO PRN (18:10)
[2023-10-17] MEDS: AMIODARONE 100 MG TAB PO SCH (21:34)
[2023-10-17] MEDS: TAMSULOSIN 0.4 MG CAP.ER.24H PO SCH (21:34)
[2023-10-17] MEDS: ATORVASTATIN 40 MG TAB PO SCH (21:34)
--- NOTE | 2023-10-18 08:18 | P.PN ---
Subjective Progress Note Date: 10/18/23 Principal diagnosis: Right elbow fracture Patient seen and examined this morning. Patient is resting comfortably in bed. Right upper extremity presents with splint and Johnny wrap intact elevated on one pillow. Patient denies any numbness or tingling to the right upper extremity and is able to wiggle fingers. His daughter is present at bedside. There was confusion again today regarding date of surgery, called Dr. Alvarez while in room and he states he did change date of surgery to 10/20/23. Patient and family have been updated. Patient may continue with his previous diet order. Continue to encourage patient to elevate right upper extremity and utilize ice packs to decrease swelling. No acute concerns at this time. Objective - Vital Signs Vital signs: Vital Signs Temp 97.8 F 10/18/23 07:25 Pulse 89 10/18/23 07:25 Resp 16 10/18/23 07:25 BP 131/89 10/18/23 07:25 Pulse Ox 92 L 10/18/23 07:25 FiO2 Intake & Output 10/17/23 10/18/23 10/18/23 18:59 06:59 18:59 Intake Total 120 50 Output Total 100 225 Balance 20 -175 Intake: Intake, IV Titration 50 Amount cefTRIAXone 1 gm In 50 Sodium Chloride 0.9% 50 ml @ 100 mls/hr IVPB Q24HR [facility] Rx#:[id number] Oral 120 Output: Urine 100 225 Other: Voiding Method Urinal Urinal Diaper Diaper # Voids 1 - Exam Inspection: Negative for any open fractures, edematous noted to right upper extremity. Right upper extremity presents with Johnny wrap and splint intact, elevated on pillow. Sensation: Sensation is equal, symmetric, bilaterally intact throughout the upper and lower extremities Palpation: Tenderness to palpation over the right elbow. Range of motion: Patient does have full range of motion bilateral upper and lower extremities on exam, limited range of motion to the right elbow due to splint and pain. Motor: 4/5 in all major motor groups in the bilateral upper and lower extremities Special tests: Negative Homans bilaterally. Negative Nilesh bilaterally. Negative clonus bilaterally. Neurovascular: Radial pulse intact, 2+ bilaterally. Cap refill under 3 seconds in digits upper extremities. - Labs CBC & Chem 7: 10/16/23 05:14 10/16/23 05:14 Labs: Microbiology - Last 24 Hours (Table) 10/16/23 14:00 Blood Culture - Preliminary Blood 10/16/23 13:45 Blood Culture - Preliminary Blood Assessment and Plan Assessment: Right upper extremity distal humerus fracture Plan: 1. Surgery is scheduled for 10/20/23 2. Appreciate medical management - patient does need medical clearance for surgery 3. Pain management - tramadol; tylenol 4. GI prophylaxis - senna 5. DVT prophylaxis - Continue Lovenox while in patient, DC night before surgery. Patient will resume Xarelto post op. 6. PT/OT - nonweightbearing right upper extremity. Maintain in splint at all times. Maintain in sling. Weight-bear as tolerated bilateral lower extremities 7. Encourage incentive spirometer use 8. Appreciate consult I reviewed and discussed this case with my attending Dr. Alvarez, whom has reviewed this chart and films and is in agreement with assessment and plan of care as outlined above. I have personally seen and examined the patient, performed the documentation and the assessment and plan as written. Number of minutes spent on the visit: 15m.
[2023-10-18] MEDS: EZETIMIBE 10 MG TAB PO SCH (08:49)
[2023-10-18] MEDS: ISOSORBIDE MONONITRATE ER 30 MG TAB.ER.24H PO SCH (08:49)
[2023-10-18] MEDS: METOPROLOL TARTRATE 25 MG TAB PO SCH ×2 (08:49→21:15)
[2023-10-18] MEDS: FOLIC ACID 1 MG TAB PO SCH (08:49)
[2023-10-18] MEDS: MULTIVITAMINS, THERA 1 EACH TAB PO SCH (08:49)
[2023-10-18] MEDS: CYANOCOBALAMIN 500 MCG TAB PO SCH (08:49)
[2023-10-18] MEDS: traMADol 50 MG TAB PO SCH ×3 (08:50→21:15)
[2023-10-18] MEDS ORDERED: ENOXAPARIN 30 MG/0.3 ML SYRINGE SQ SCH ×2 (09:00→12:45)
[2023-10-18] MEDS: IPRATROPIUM 0.5 MG/2.5 ML NEBU INHALATION SCH ×4 (09:39→20:48)
[2023-10-18] MEDS: SYMBICORT 80-4.5 MCG INHALER INHALATION SCH ×2 (09:39→20:48)
--- NOTE | 2023-10-18 16:56 | P.PN ---
Subjective Progress Note Date: 10/17/23 HISTORY OF PRESENT ILLNESS This is a 82-year-old male with past medical history of hypertension, paroxysmal atrial fibrillation on Xarelto, benign prostatic hypertrophy, hiatal hernia, hereditary factor VIII deficiency, hyperlipidemia, mild intermittent asthma, possible COPD. patient presented to the emergency center via ambulance due to fall the previous night in his bathroom. Patient injured his right elbow. No loss of consciousness. Patient ended up staying on the floor for the night, approximately 8 hours, until he was able to crawl and get to a phone call for assistance. He was found to have significant deformity of the right elbow and was brought into the emergency center. Blood pressure was elevated at the time at 162/97 otherwise vital signs were stable and he has been afebrile. The splint has been applied to the right arm and patient is seen today in the emergency center. Platelet count was found to be 146. Sodium 133 and potassium 4.6, creatinine was 1.48 and baseline is 0.9. CK 205. Urinalysis was bloody. Urine drug screen negative. Serum alcohol negative. Patient Efra for been on the [facility] floor and orthopedic consult in place. X-rays of the right wrist showed no acute abnormality. X-ray of the right elbow soft tissue swelling. No definite fracture or dislocation. Diffuse degenerative changes. Chest x-ray: Enlarged cardiomediastinal silhouette. Pelvis x-ray no acute abnormality. CT right elbow: Age indeterminate transverse supracondylar fracture of the distal humerus. Acute or subacute etiology cannot be excluded. CAT scan of the head reveals no acute fracture or traumatic subluxation. Prominent multilevel cervical spondylosis. 10/17: Patient is currently waiting for surgery on his elbow. He is off Xarelto and will be started on Lovenox at the three-day isidro. He has history of factor VIII deficiency. Patient remains with a sling and Johnny wrap on the right arm. Patient remains afebrile, heart rate in the 70s, blood pressure 101/64, pulse ox 92% on room air. Patient is currently waiting for surgery. REVIEW OF SYSTEMS Constitutional: No fever, no chills, no night sweats. No weight change. Reports weakness, Reports fatigue Reports lethargy. No daytime sleepiness. EENT: No headache. No blurred vision or double vision, no loss of vision. No loss of Hearing, no ringing in the ears, no dizziness. No nasal drainage or congestion. No epistaxis. No sore throat. Lungs: Reports shortness of breath, Reports cough, Reports sputum production. Reports wheezing. Cardiovascular: No chest pain, no lower extremity edema. No palpitations. No paroxysmal nocturnal dyspnea. No orthopnea. No lightheadedness or dizziness. No syncopal episodes. Abdominal: No abdominal pain. No nausea, vomiting. No diarrhea. No constipation. No bloody or tarry stools. No loss of appetite. Genitourinary: No dysuria, increased frequency, urgency. No urinary retention. Musculoskeletal: No myalgias. Reports muscle weakness, no gait dysfunction, no frequent falls. No back pain. No neck pain. + Right elbow pain Integumentary: No wounds, no lesions. No rash or pruritus. No unusual bru ising. No change in hair or nails. Neurologic: No aphasia. No facial droop. No change in mentation. No head injury. No headache. No paralysis. No paresthesia. Psychiatric: No depression. No anxiety. No mood swings. Endocrine: No abnormal blood sugars. No weight change. No excessive sweating or thirst. No cold intolerance. PHYSICAL EXAMINATION Gen: This is an obese 82-year-old male, resting in bed, appears to be fairly comfortable at rest. HEENT: Head is atraumatic, normocephalic. Pupils equal, round. Sclerae is anicteric. NECK: Supple. No JVD. No lymphadenopathy. No thyromegaly. LUNGS: Diminished breath sounds bilaterally. No intercostal retractions. HEART: First heart sound is depressed, second heart sound is normal, 2/6 systolic ejection murmur at the left sternal border. ABDOMEN: Soft. Bowel sounds are present. No masses. No tenderness. EXTREMITIES: No pedal edema. No calf tenderness. Pain in the left hip. Dorsalis pedis palpable bilaterally. NEUROLOGICAL: Patient is awake, alert and oriented x3. Cranial nerves 2 through 12 are grossly intact. ASSESSMENT AND PLAN 1. Acute right distal humerus fracture. Consult with orthopedics. Continue patient on morphine 4 mg IV push every 4 hours as needed for pain or tramadol 50 mg 3 times daily for pain. Maintain splint to the right arm. [facility] 2. Possible UTI. Patient started on ceftriaxone 1 g IV piggyback every 24 hours. 3. COPD without exacerbation. Continue patient on albuterol every 4 hours as needed for shortness of breath, Symbicort 804 0.5 g 2 puffs twice daily. 4. Mild intermittent asthma. Continue Singulair 10 mg at bedtime, Claritin as needed, albuterol nebulizer treatments every 4 hours as needed. 5. Paroxysmal atrial fibrillation. Hold Xarelto 20 mg at bedtime, continue patient on amiodarone 100 mg at bedtime, Lopressor 25 mg twice daily. 6. Benign prostatic hypertrophy. Continue Flomax 0.4 mg at bedtime, monitor for urinary retention. 6. Hereditary factor VIII deficiency. Resume Xarelto once cleared by orthopedic surgeon. 7. Hyperlipidemia. Continue Zetia 10 mg daily 8. Hypertension. Continue losartan 25 mg daily, Lopressor 25 mg twice daily. 9. GI prophylaxis. Protonix 40 mg po daily. 10. DVT prophylaxis. Xarelto will be resumed following surgery once cleared by orthopedics DISCHARGE PLAN Subacute rehab at [facility] or [facility] following surgery. Patient is not safe to be discharged home and at high risk for falls with further injury. Impression and plan of care have been directed as dictated by the signing physi cian. Melissa Hairston nurse practitioner acting as scribe for signing physician. Objective - Vital Signs Vital signs: Vital Signs Temp 98.5 F 10/17/23 14:18 Pulse 72 10/17/23 15:38 Resp 16 10/17/23 14:18 BP 101/64 10/17/23 14:18 Pulse Ox 92 L 10/17/23 14:18 FiO2 Intake & Output 10/16/23 10/17/23 10/17/23 18:59 06:59 18:59 Intake Total 240 120 Output Total 800 100 Balance -560 20 Weight 106.594 kg Intake: Oral 240 120 Output: Urine 800 100 Other: Voiding Method Urinal Urinal Diaper Diaper Incontinent # Voids 2 - Labs CBC & Chem 7: 10/16/23 05:14 10/16/23 05:14
--- NOTE | 2023-10-18 16:59 | P.PN ---
Subjective Progress Note Date: 10/18/23 HISTORY OF PRESENT ILLNESS This is a 82-year-old male with past medical history of hypertension, paroxysmal atrial fibrillation on Xarelto, benign prostatic hypertrophy, hiatal hernia, hereditary factor VIII deficiency, hyperlipidemia, mild intermittent asthma, possible COPD. patient presented to the emergency center via ambulance due to fall the previous night in his bathroom. Patient injured his right elbow. No loss of consciousness. Patient ended up staying on the floor for the night, approximately 8 hours, until he was able to crawl and get to a phone call for assistance. He was found to have significant deformity of the right elbow and was brought into the emergency center. Blood pressure was elevated at the time at 162/97 otherwise vital signs were stable and he has been afebrile. The splint has been applied to the right arm and patient is seen today in the emergency center. Platelet count was found to be 146. Sodium 133 and potassium 4.6, creatinine was 1.48 and baseline is 0.9. CK 205. Urinalysis was bloody. Urine drug screen negative. Serum alcohol negative. Patient Efra for been on the [facility] floor and orthopedic consult in place. X-rays of the right wrist showed no acute abnormality. X-ray of the right elbow soft tissue swelling. No definite fracture or dislocation. Diffuse degenerative changes. Chest x-ray: Enlarged cardiomediastinal silhouette. Pelvis x-ray no acute abnormality. CT right elbow: Age indeterminate transverse supracondylar fracture of the distal humerus. Acute or subacute etiology cannot be excluded. CAT scan of the head reveals no acute fracture or traumatic subluxation. Prominent multilevel cervical spondylosis. 10/17: Patient is currently waiting for surgery on his elbow. He is off Xarelto and will be started on Lovenox at the three-day isidro. He has history of factor VIII deficiency. Patient remains with a sling and Johnny wrap on the right arm. Patient remains afebrile, heart rate in the 70s, blood pressure 101/64, pulse ox 92% on room air. Patient is currently waiting for surgery. 10/18: Patient surgery is delayed until Monday to wait for improvement of swelling. Patient will be started on Lovenox tonight based on weight due to his factor VIII deficiency. Plan for him to receive Lovenox on Monday and morning and then discontinue prior to surgery. Heart rate is in the 90s and 80s, blood pressure 113/74, pulse ox 95% on room air. Discharge plan is for subacute rehab at [facility] or [facility] following surgery. REVIEW OF SYSTEMS Constitutional: No fever, no chills, no night sweats. No weight change. Reports weakness, Reports fatigue Reports lethargy. No daytime sleepiness. EENT: No headache. No blurred vision or double vision, no loss of vision. No loss of Hearing, no ringing in the ears, no dizziness. No nasal drainage or con gestion. No epistaxis. No sore throat. Lungs: Reports shortness of breath, Reports cough, Reports sputum production. Reports wheezing. Cardiovascular: No chest pain, no lower extremity edema. No palpitations. No paroxysmal nocturnal dyspnea. No orthopnea. No lightheadedness or dizziness. No syncopal episodes. Abdominal: No abdominal pain. No nausea, vomiting. No diarrhea. No constipation. No bloody or tarry stools. No loss of appetite. Genitourinary: No dysuria, increased frequency, urgency. No urinary retention. Musculoskeletal: No myalgias. Reports muscle weakness, no gait dysfunction, no frequent falls. No back pain. No neck pain. + Right elbow pain Integumentary: No wounds, no lesions. No rash or pruritus. No unusual bruising. No change in hair or nails. Neurologic: No aphasia. No facial droop. No change in mentation. No head injury. No headache. No paralysis. No paresthesia. Psychiatric: No depression. No anxiety. No mood swings. Endocrine: No abnormal blood sugars. No weight change. No excessive sweating or thirst. No cold intolerance. PHYSICAL EXAMINATION Gen: This is an obese 82-year-old male, resting in bed, appears to be fairly comfortable at rest. HEENT: Head is atraumatic, normocephalic. Pupils equal, round. Sclerae is anicteric. NECK: Supple. No JVD. No lymphadenopathy. No thyromegaly. LUNGS: Diminished breath sounds bilaterally. No intercostal retractions. HEART: First heart sound is depressed, second heart sound is normal, 2/6 systolic ejection murmur at the left sternal border. ABDOMEN: Soft. Bowel sounds are present. No masses. No tenderness. EXTREMITIES: No pedal edema. No calf tenderness. Pain in the left hip. Dorsalis pedis palpable bilaterally. NEUROLOGICAL: Patient is awake, alert and oriented x3. Cranial nerves 2 through 12 are grossly intact. ASSESSMENT AND PLAN 1. Acute right distal humerus fracture. Consult with orthopedics. Continue patient on morphine 4 mg IV push every 4 hours as needed for pain or tramadol 50 mg 3 times daily for pain. Maintain splint to the right arm. Patient is medically cleared for surgery. Patient surgery has been delayed until Monday. 2. Possible UTI. Patient started on ceftriaxone 1 g IV piggyback every 24 hours. 3. COPD without exacerbation. Continue patient on albuterol every 4 hours as needed for shortness of breath, Symbicort 804 0.5 g 2 puffs twice daily. 4. Mild intermittent asthma. Continue Singulair 10 mg at bedtime, Claritin as needed, albuterol nebulizer treatments every 4 hours as needed. 5. Paroxysmal atrial fibrillation. Hold Xarelto 20 mg at bedtime, continue patient on amiodarone 100 mg at bedtime, Lopressor 25 mg twice daily. 6. Benign prostatic hypertrophy. Continue Flomax 0.4 mg at bedtime, monitor for urinary retention. 6. Hereditary factor VIII deficiency. Resume Xarelto once cleared by orthopedic surgeon. Patient is day #3 without Xarelto. Patient will be started on Lovenox based on weight. Plan to continue this for tonight morning and discontinue after that in preparation for surgery on Monday. 7. Hyperlipidemia. Continue Zetia 10 mg daily 8. Hypertension. Continue losartan 25 mg daily, Lopressor 25 mg twice daily. 9. GI prophylaxis. Protonix 40 mg po daily. 10. DVT prophylaxis. Xarelto will be resumed following surgery once cleared by orthopedics DISCHARGE PLAN Subacute rehab at [facility] or [facility] following surgery. Patient is not safe to be discharged home and at high risk for falls with further injury. Impression and plan of care have been directed as dictated by the signing physician. Melissa Hairston nurse practitioner acting as scribe for signing physician. Objective - Vital Signs Vital signs: Vital Signs Temp 97.8 F 10/18/23 12:45 Pulse 74 10/18/23 15:53 Resp 16 10/18/23 12:45 BP 113/74 10/18/23 12:45 Pulse Ox 95 10/18/23 12:45 FiO2 Intake & Output 10/17/23 10/18/23 10/18/23 18:59 06:59 18:59 Intake Total 120 50 236 Output Total 100 225 200 Balance 20 -175 36 Intake: Intake, IV Titration 50 Amount cefTRIAXone 1 gm In 50 Sodium Chloride 0.9% 50 ml @ 100 mls/hr IVPB Q24HR [facility] Rx#:[id number] Oral 120 236 Output: Urine 100 225 200 Other: Voiding Method Urinal Urinal Diaper Diaper # Voids 1 - Labs CBC & Chem 7: 10/16/23 05:14 10/16/23 05:14 Labs: Microbiology - Last 24 Hours (Table) 10/16/23 14:00 Blood Culture - Preliminary Blood 10/16/23 13:45 Blood Culture - Preliminary Blood
[2023-10-18 17:49] LABS: HGB 14.9 gm/dL (13.0-17.5); MCH 30.7 pg (25.0-35.0); MCHC 32.5 g/dL (31.0-37.0); MCV 94.5 fL (80.0-100.0); Mean Platelet Volume 8.2; Platelet Count 158 k/uL (150-450); RBC 4.86 m/uL (4.30-5.90); RDW 14.2 % (11.5-15.5); WBC 6.6 k/uL (3.8-10.6)
[2023-10-18 18:07] LABS: ALT 20 U/L (4-49); AST 28 U/L (17-59); African American GFR (CKD) 72 (>60 ml/min/1.73 sqM); Albumin 3.4 g/dL (3.5-5.0); Albumin/Globulin Ratio 1.4; Alkaline Phosphatase 78 U/L (38-126); Anion Gap 10 mmol/L; Blood Urea Nitrogen 26 mg/dL (9-20); Calcium 8.7 mg/dL (8.4-10.2); Carbon Dioxide 23 mmol/L (22-30); Chloride 101 mmol/L (98-107); Globulin 2.5 g/dL; Glucose 130 mg/dL (74-99); Non-African American GFR(CKD) 63 (>60 ml/min/1.73 sqM); Potassium 4.4 mmol/L (3.5-5.1); Sodium 134 mmol/L (137-145); Total Bilirubin 0.7 mg/dL (0.2-1.3); Total Protein 5.9 g/dL (6.3-8.2)
[2023-10-18] MEDS: ENOXAPARIN 100 MG/ML SYRINGE SQ SCH (21:15)
[2023-10-18] MEDS: ATORVASTATIN 40 MG TAB PO SCH (21:15)
[2023-10-18] MEDS: TAMSULOSIN 0.4 MG CAP.ER.24H PO SCH (21:15)
[2023-10-18] MEDS: AMIODARONE 100 MG TAB PO SCH (21:15)
[2023-10-19] MEDS: IPRATROPIUM 0.5 MG/2.5 ML NEBU INHALATION SCH ×4 (07:36→20:05)
[2023-10-19] MEDS: SYMBICORT 80-4.5 MCG INHALER INHALATION SCH ×2 (07:36→20:05)
[2023-10-19] MEDS: traMADol 50 MG TAB PO SCH ×3 (08:41→21:00)
[2023-10-19] MEDS: MULTIVITAMINS, THERA 1 EACH TAB PO SCH (08:41)
[2023-10-19] MEDS: CYANOCOBALAMIN 500 MCG TAB PO SCH (08:41)
[2023-10-19] MEDS: METOPROLOL TARTRATE 25 MG TAB PO SCH ×2 (08:41→21:02)
[2023-10-19] MEDS: ENOXAPARIN 100 MG/ML SYRINGE SQ SCH (08:42)
[2023-10-19] MEDS: ISOSORBIDE MONONITRATE ER 30 MG TAB.ER.24H PO SCH (08:42)
[2023-10-19] MEDS: EZETIMIBE 10 MG TAB PO SCH (08:42)
[2023-10-19] MEDS: FOLIC ACID 1 MG TAB PO SCH (08:42)
--- NOTE | 2023-10-19 09:10 | P.PN ---
Subjective Progress Note Date: 10/19/23 HISTORY OF PRESENT ILLNESS This is a 82-year-old male with past medical history of hypertension, paroxysmal atrial fibrillation on Xarelto, benign prostatic hypertrophy, hiatal hernia, hereditary factor VIII deficiency, hyperlipidemia, mild intermittent asthma, possible COPD. patient presented to the emergency center via ambulance due to fall the previous night in his bathroom. Patient injured his right elbow. No loss of consciousness. Patient ended up staying on the floor for the night, approximately 8 hours, until he was able to crawl and get to a phone call for assistance. He was found to have significant deformity of the right elbow and was brought into the emergency center. Blood pressure was elevated at the time at 162/97 otherwise vital signs were stable and he has been afebrile. The splint has been applied to the right arm and patient is seen today in the emergency center. Platelet count was found to be 146. Sodium 133 and potassium 4.6, creatinine was 1.48 and baseline is 0.9. CK 205. Urinalysis was bloody. Urine drug screen negative. Serum alcohol negative. Patient Efra for been on the [facility] floor and orthopedic consult in place. X-rays of the right wrist showed no acute abnormality. X-ray of the right elbow soft tissue swelling. No definite fracture or dislocation. Diffuse degenerative changes. Chest x-ray: Enlarged cardiomediastinal silhouette. Pelvis x-ray no acute abnormality. CT right elbow: Age indeterminate transverse supracondylar fracture of the distal humerus. Acute or subacute etiology cannot be excluded. CAT scan of the head reveals no acute fracture or traumatic subluxation. Prominent multilevel cervical spondylosis. 10/17: Patient is currently waiting for surgery on his elbow. He is off Xarelto and will be started on Lovenox at the three-day isidro. He has history of factor VIII deficiency. Patient remains with a sling and Johnny wrap on the right arm. Patient remains afebrile, heart rate in the 70s, blood pressure 101/64, pulse ox 92% on room air. Patient is currently waiting for surgery. 10/18: Patient surgery is delayed until Monday to wait for improvement of swelling. Patient will be started on Lovenox tonight based on weight due to his factor VIII deficiency. Plan for him to receive Lovenox on Monday and morning and then discontinue prior to surgery. Heart rate is in the 90s and 80s, blood pressure 113/74, pulse ox 95% on room air. Discharge plan is for subacute rehab at [facility] or [facility] following surgery. 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 This will be discontinued today after the morning dose in preparation for surgery tomorrow. Heart rate is been in the 70s and 80s, blood pressure 117/78, pulse ox 92% on room air. Blood work ordered yesterday afternoon reveals CBC is unremarkable with hemoglobin of 14.9. Sodium 134, potassium 4.4, BUN 26 creatinine 1.11. REVIEW OF SYSTEMS Constitutional: No fever, no chills, no night sweats. No weight change. Reports weakness, Reports fatigue Reports lethargy. No daytime sleepiness. EENT: No headache. No blurred vision or double vision, no loss of vision. No loss of Hearing, no ringing in the ears, no dizziness. No nasal drainage or con gestion. No epistaxis. No sore throat. Lungs: Reports shortness of breath, Reports cough, Reports sputum production. Reports wheezing. Cardiovascular: No chest pain, no lower extremity edema. No palpitations. No paroxysmal nocturnal dyspnea. No orthopnea. No lightheadedness or dizziness. No syncopal episodes. Abdominal: No abdominal pain. No nausea, vomiting. No diarrhea. No constipation. No bloody or tarry stools. No loss of appetite. Genitourinary: No dysuria, increased frequency, urgency. No urinary retention. Musculoskeletal: No myalgias. Reports muscle weakness, no gait dysfunction, no frequent falls. No back pain. No neck pain. + Right elbow pain Integumentary: No wounds, no lesions. No rash or pruritus. No unusual bruising. No change in hair or nails. Neurologic: No aphasia. No facial droop. No change in mentation. No head injury. No headache. No paralysis. No paresthesia. Psychiatric: No depression. No anxiety. No mood swings. Endocrine: No abnormal blood sugars. No weight change. No excessive sweating or thirst. No cold intolerance. PHYSICAL EXAMINATION Gen: This is an obese 82-year-old male, resting in bed, appears to be fairly comfortable at rest. HEENT: Head is atraumatic, normocephalic. Pupils equal, round. Sclerae is anicteric. NECK: Supple. No JVD. No lymphadenopathy. No thyromegaly. LUNGS: Diminished breath sounds bilaterally. No intercostal retractions. HEART: First heart sound is depressed, second heart sound is normal, 2/6 systolic ejection murmur at the left sternal border. ABDOMEN: Soft. Bowel sounds are present. No masses. No tenderness. EXTREMITIES: No pedal edema. No calf tenderness. Pain in the left hip. Dorsalis pedis palpable bilaterally. NEUROLOGICAL: Patient is awake, alert and oriented x3. Cranial nerves 2 through 12 are grossly intact. ASSESSMENT AND PLAN 1. Acute right distal humerus fracture. Consult with orthopedics. Continue patient on morphine 4 mg IV push every 4 hours as needed for pain or tramadol 50 mg 3 times daily for pain. Maintain splint to the right arm. Patient is medically cleared for surgery. Patient surgery has been delayed until Monday. 2. Possible UTI. Patient started on ceftriaxone 1 g IV piggyback every 24 hours. 3. COPD without exacerbation. Continue patient on albuterol every 4 hours as needed for shortness of breath, Symbicort 804 0.5 g 2 puffs twice daily. 4. Mild intermittent asthma. Continue Singulair 10 mg at bedtime, Claritin as needed, albuterol nebulizer treatments every 4 hours as needed. 5. Paroxysmal atrial fibrillation. Hold Xarelto 20 mg at bedtime, continue patient on amiodarone 100 mg at bedtime, Lopressor 25 mg twice daily. 6. Benign prostatic hypertrophy. Continue Flomax 0.4 mg at bedtime, monitor for urinary retention. 6. Hereditary factor VIII deficiency. Resume Xarelto once cleared by orthopedic surgeon. Patient is day #3 without Xarelto. Patient will be started on Lovenox based on weight. Plan to continue this for tonight morning and discontinue after that in preparation for surgery on Monday. 7. Hyperlipidemia. Continue Zetia 10 mg daily 8. Hypertension. Continue losartan 25 mg daily, Lopressor 25 mg twice daily. 9. GI prophylaxis. Protonix 40 mg po daily. 10. DVT prophylaxis. Xarelto will be resumed following surgery once cleared by orthopedics DISCHARGE PLAN Subacute rehab at [facility] or [facility] following surgery. Patient is not safe to be discharged home and at high risk for falls with further injury. Impression and plan of care have been directed as dictated by the signing physician. Melissa Hairston nurse practitioner acting as scribe for signing physician. Objective - Vital Signs Vital signs: Vital Signs Temp 98.3 F 10/19/23 07:24 Pulse 84 10/19/23 07:50 Resp 20 10/19/23 07:24 BP 117/78 10/19/23 07:24 Pulse Ox 91 L 10/19/23 07:38 FiO2 Intake & Output 10/18/23 10/19/23 10/19/23 18:59 06:59 18:59 Intake Total 236 Output Total 300 150 100 Balance -64 -150 -100 Intake: Oral 236 Output: Urine 300 150 100 Other: Voiding Method Urinal Urinal Diaper Diaper - Labs CBC & Chem 7: 10/18/23 17:32 10/18/23 17:32 Labs: Abnormal Lab Results - Last 24 Hours (Table) 10/18/23 Range/Units 17:32 Sodium 134 L (137-145) mmol/L BUN 26 H (9-20) mg/dL Glucose 130 H (74-99) mg/dL Total Protein 5.9 L (6.3-8.2) g/dL Albumin 3.4 L (3.5-5.0) g/dL Microbiology - Last 24 Hours (Table) 10/16/23 14:00 Blood Culture - Preliminary Blood 10/16/23 13:45 Blood Culture - Preliminary Blood
--- NOTE | 2023-10-19 09:10 | P.PN ---
Subjective Progress Note Date: 10/19/23 Principal diagnosis: Right elbow fracture Patient seen and examined this morning. Patient is resting comfortably in bed. Right upper extremity presents with splint and Johnny wrap intact elevated on one pillow. Patient denies any numbness or tingling to the right upper extremity and is able to wiggle fingers. Continue to encourage patient to elevate right upper extremity and utilize ice packs to decrease swelling. [facility] N[facility] at [facility]. Surgery scheduled for tomorrow 10/20/23. No acute concerns at this time. Objective - Vital Signs Vital signs: Vital Signs Temp 98.6 F 10/19/23 01:33 Pulse 97 10/19/23 01:33 Resp 16 10/19/23 01:33 BP 111/65 10/19/23 01:33 Pulse Ox 92 L 10/19/23 01:33 FiO2 Intake & Output 10/18/23 10/19/23 10/19/23 18:59 06:59 18:59 Intake Total 236 Output Total 300 150 Balance -64 -150 Intake: Oral 236 Output: Urine 300 150 Other: Voiding Method Urinal Diaper - Exam Inspection: Negative for any open fractures, edematous noted to right upper extremity. Right upper extremity presents with Johnny wrap and splint intact, elevated on pillow. Sensation: Sensation is equal, symmetric, bilaterally intact throughout the upper and lower extremities Palpation: Tenderness to palpation over the right elbow. Range of motion: Patient does have full range of motion bilateral upper and lower extremities on exam, limited range of motion to the right elbow due to splint and pain. Motor: 4/5 in all major motor groups in the bilateral upper and lower extremities Special tests: Negative Homans bilaterally. Negative Nilesh bilaterally. Negative clonus bilaterally. Neurovascular: Radial pulse intact, 2+ bilaterally. Cap refill under 3 seconds in digits upper extremities. - Labs CBC & Chem 7: 10/18/23 17:32 10/18/23 17:32 Labs: Abnormal Lab Results - Last 24 Hours (Table) 10/18/23 Range/Units 17:32 Sodium 134 L (137-145) mmol/L BUN 26 H (9-20) mg/dL Glucose 130 H (74-99) mg/dL Total Protein 5.9 L (6.3-8.2) g/dL Albumin 3.4 L (3.5-5.0) g/dL Microbiology - Last 24 Hours (Table) 10/16/23 14:00 Blood Culture - Preliminary Blood 10/16/23 13:45 Blood Culture - Preliminary Blood Assessment and Plan Assessment: Right upper extremity distal humerus fracture Plan: 1. Surgery is scheduled for 10/20/23, NPO at [facility] 2. Appreciate medical management - patient does need medical clearance for surgery 3. Pain management - tramadol; tylenol 4. GI prophylaxis - senna 5. DVT prophylaxis - mechanical; withhold thinners at this time 6. PT/OT - nonweightbearing right upper extremity. Maintain in splint at all times. Maintain in sling. Weight-bear as tolerated bilateral lower extremities 7. Encourage incentive spirometer use 8. Appreciate consult I reviewed and discussed this case with my attending Dr. Alvarez, whom has reviewe d this chart and films and is in agreement with assessment and plan of care as outlined above. I have personally seen and examined the patient, performed the documentation and the assessment and plan as written. Number of minutes spent on the visit: 15m.
[2023-10-19] MEDS ORDERED: IPRATROPIUM-ALBUTEROL 3 ML NEB INHALATION PRN (11:27)
[2023-10-19] MEDS: IPRATROPIUM-ALBUTEROL 3 ML NEB INHALATION SCH ×3 (12:18→20:05)
[2023-10-19] MEDS: ATORVASTATIN 40 MG TAB PO SCH (21:02)
[2023-10-19] MEDS: TAMSULOSIN 0.4 MG CAP.ER.24H PO SCH (21:02)
[2023-10-19] MEDS: AMIODARONE 100 MG TAB PO SCH (22:08)
[2023-10-20] MEDS: IPRATROPIUM-ALBUTEROL 3 ML NEB INHALATION SCH ×4 (05:41→20:34)
[2023-10-20] MEDS: SYMBICORT 80-4.5 MCG INHALER INHALATION SCH ×2 (05:41→20:34)
[2023-10-20] MEDS: IPRATROPIUM 0.5 MG/2.5 ML NEBU INHALATION SCH ×2 (07:45→11:06)
[2023-10-20] MEDS: CYANOCOBALAMIN 500 MCG TAB PO SCH (10:02)
[2023-10-20] MEDS: traMADol 50 MG TAB PO SCH ×3 (10:02→21:50)
[2023-10-20] MEDS: ISOSORBIDE MONONITRATE ER 30 MG TAB.ER.24H PO SCH (10:02)
[2023-10-20] MEDS: EZETIMIBE 10 MG TAB PO SCH (10:02)
[2023-10-20] MEDS: METOPROLOL TARTRATE 25 MG TAB PO SCH ×2 (10:02→20:27)
[2023-10-20] MEDS: MULTIVITAMINS, THERA 1 EACH TAB PO SCH (10:03)
[2023-10-20] MEDS: FOLIC ACID 1 MG TAB PO SCH (10:11)
[2023-10-20] MEDS ORDERED: LACTATED RINGERS 1,000 ML IV ONE ×3 (11:42→17:34)
[2023-10-20] MEDS ORDERED: MIDAZOLAM 2 MG/2 ML VIAL IV PRN (11:44)
[2023-10-20] MEDS ORDERED: ONDANSETRON 4 MG/2 ML VIAL IVP ONE (11:44)
[2023-10-20] MEDS ORDERED: DEXAMETHASONE SOD PHOSPHATE 4 MG/ML 1 ML VIAL IV ONE (11:44)
[2023-10-20] MEDS ORDERED: LIDOCAINE 1% (10MG/ML) FOR IV START INTRADERMA PRN (11:44)
[2023-10-20] MEDS ORDERED: HYDROmorphone 0.5 MG/0.5 ML SYRINGE IVP PRN (11:44)
[2023-10-20] MEDS ORDERED: MIDAZOLAM 2 MG/2 ML VIAL IVP ONE (12:16)
--- NOTE | 2023-10-20 13:18 | P.ANPRN ---
Procedure Note - Anesthesia - Nerve Block Performed Right Supraclavicular Single Time Out Performed: Yes ([id number]) Date of Procedure: 10/20/23 Procedure Start Time: 12: Procedure Stop Time: : Location of Patient: PreOp Indication: Acute Post-Operative Pain, Requested by Surgeon Sedation Type: Sedate with meaningful contact maintained Preparation: Sterile Prep Position: Sitting Catheter: None Needle Types: Pajunk Needle Gauge: Other (see comment) (22 G) Ultrasound used to visualize needle placement: Yes Ultrasound used to observe medication spread: Yes Injectate: 0.5% Ropivacaine (see comment for volume) (21 mL of block solution containing 20 ML of 0.5% ropivacaine mixed with 4 MG of dexamethasone) Blood Aspirated: No Pain Paresthesia on Injection Noted: No Resistance on Injection: Normal Image Stored and Saved: Yes Events: Uneventful and Well Tolerated
[2023-10-20 13:28] LABS: Glucose,Whole Blood 109 mg/dL (70-110)
[2023-10-20] MEDS ORDERED: LIDOCAINE 1% INJ 10MG/ML (20 ML MDV) ONE (13:28)
[2023-10-20] MEDS ORDERED: PHENYLEPHRINE 10 MG/ML VIAL ONE (13:28)
[2023-10-20] MEDS ORDERED: ePHEDrine 50 MG/ML 1 ML VIAL ONE (13:28)
[2023-10-20] MEDS ORDERED: DEXAMETHASONE SOD PHOSPHATE 4 MG/ML 1 ML VIAL ONE (13:28)
[2023-10-20] MEDS ORDERED: PROPOFOL 10 MG/ML 20 ML VIAL IV ONE (13:28)
[2023-10-20] MEDS ORDERED: SUCCINYLCHOLINE CHLORIDE 200 MG/10 ML VIAL IV ONE (13:28)
[2023-10-20] MEDS ORDERED: ROPIVACAINE 5 MG/ML 30 ML VIAL ONE (13:28)
[2023-10-20] MEDS ORDERED: ceFAZolin 1,000 MG in SODIUM CHLORIDE 0.9% 1,000 ML IRRIGATION ONE (14:14)
--- NOTE | 2023-10-20 14:32 | P.PN ---
Subjective Progress Note Date: 10/20/23 HISTORY OF PRESENT ILLNESS This is a 82-year-old male with past medical history of hypertension, paroxysmal atrial fibrillation on Xarelto, benign prostatic hypertrophy, hiatal hernia, hereditary factor VIII deficiency, hyperlipidemia, mild intermittent asthma, possible COPD. patient presented to the emergency center via ambulance due to fall the previous night in his bathroom. Patient injured his right elbow. No loss of consciousness. Patient ended up staying on the floor for the night, approximately 8 hours, until he was able to crawl and get to a phone call for assistance. He was found to have significant deformity of the right elbow and was brought into the emergency center. Blood pressure was elevated at the time at 162/97 otherwise vital signs were stable and he has been afebrile. The splint has been applied to the right arm and patient is seen today in the emergency center. Platelet count was found to be 146. Sodium 133 and potassium 4.6, creatinine was 1.48 and baseline is 0.9. CK 205. Urinalysis was bloody. Urine drug screen negative. Serum alcohol negative. Patient Efra for been on the [facility] floor and orthopedic consult in place. X-rays of the right wrist showed no acute abnormality. X-ray of the right elbow soft tissue swelling. No definite fracture or dislocation. Diffuse degenerative changes. Chest x-ray: Enlarged cardiomediastinal silhouette. Pelvis x-ray no acute abnormality. CT right elbow: Age indeterminate transverse supracondylar fracture of the distal humerus. Acute or subacute etiology cannot be excluded. CAT scan of the head reveals no acute fracture or traumatic subluxation. Prominent multilevel cervical spondylosis. 10/17: Patient is currently waiting for surgery on his elbow. He is off Xarelto and will be started on Lovenox at the three-day isidro. He has history of factor VIII deficiency. Patient remains with a sling and Johnny wrap on the right arm. Patient remains afebrile, heart rate in the 70s, blood pressure 101/64, pulse ox 92% on room air. Patient is currently waiting for surgery. 10/18: Patient surgery is delayed until Monday to wait for improvement of swelling. Patient will be started on Lovenox tonight based on weight due to his factor VIII deficiency. Plan for him to receive Lovenox on Monday and morning and then discontinue prior to surgery. Heart rate is in the 90s and 80s, blood pressure 113/74, pulse ox 95% on room air. Discharge plan is for subacute rehab at [facility] or [facility] following surgery. 10/19: Yesterday, patient was started on Lovenox for Dr. Cristiano aaron. This will be discontinued today after the morning dose in preparation for surgery tomorrow. Heart rate is been in the 70s and 80s, blood pressure 117/78, pulse ox 92% on room air. Blood work ordered yesterday afternoon reveals CBC is unremarkable with hemoglobin of 14.9. Sodium 134, potassium 4.4, BUN 26 creatinine 1.11. 10/20: Patient is status post surgical intervention. He is looking at rehab at [facility] and has been accepted awaiting insurance authorization. Patient has been afebrile, heart rate 74, blood pressure 106/66, pulse ox 95% on 2 L nasal cannula. Plan to discharge patient to rehab once arrangements are completed REVIEW OF SYSTEMS Constitutional: No fever, no chills, no night sweats. No weight change. Reports weakness, Reports fatigue Reports lethargy. No daytime sleepiness. EENT: No headache. No blurred vision or double vision, no loss of vision. No loss of Hearing, no ringing in the ears, no dizziness. No nasal drainage or congestion. No epistaxis. No sore throat. Lungs: Reports shortness of breath, Reports cough, Reports sputum production. Reports wheezing. Cardiovascular: No chest pain, no lower extremity edema. No palpitations. No paroxysmal nocturnal dyspnea. No orthopnea. No lightheadedness or dizziness. No syncopal episodes. Abdominal: No abdominal pain. No nausea, vomiting. No diarrhea. No constipation. No bloody or tarry stools. No loss of appetite. Genitourinary: No dysuria, increased frequency, urgency. No urinary retention. Musculoskeletal: No myalgias. Reports muscle weakness, no gait dysfunction, no frequent falls. No back pain. No neck pain. + Right elbow pain Integumentary: No wounds, no lesions. No rash or pruritus. No unusual bruising. No change in hair or nails. Neurologic: No aphasia. No facial droop. No change in mentation. No head injury. No headache. No paralysis. No paresthesia. Psychiatric: No depression. No anxiety. No mood swings. Endocrine: No abnormal blood sugars. No weight change. No excessive sweating or thirst. No cold intolerance. PHYSICAL EXAMINATION Gen: This is an obese 82-year-old male, resting in bed, appears to be fairly comfortable at rest. HEENT: Head is atraumatic, normocephalic. Pupils equal, round. Sclerae is anicteric. NECK: Supple. No JVD. No lymphadenopathy. No thyromegaly. LUNGS: Diminished breath sounds bilaterally. No intercostal retractions. HEART: First heart sound is depressed, second heart sound is normal, 2/6 systolic ejection murmur at the left sternal border. ABDOMEN: Soft. Bowel sounds are present. No masses. No tenderness. EXTREMITIES: No pedal edema. No calf tenderness. Pain in the left hip. Dorsalis pedis palpable bilaterally. NEUROLOGICAL: Patient is awake, alert and oriented x3. Cranial nerves 2 through 12 are grossly intact. ASSESSMENT AND PLAN 1. Acute right distal humerus fracture. Consult with orthopedics. Continue patient on morphine 4 mg IV push every 4 hours as needed for pain or tramadol 50 mg 3 times daily for pain. Maintain splint to the right arm. Patient is medically cleared for surgery. 2. Possible UTI. Patient started on ceftriaxone 1 g IV piggyback every 24 hours. 3. COPD without exacerbation. Continue patient on albuterol every 4 hours as needed for shortness of breath, Symbicort 804 0.5 g 2 puffs twice daily. 4. Mild intermittent asthma. Continue Singulair 10 mg at bedtime, Claritin as needed, albuterol nebulizer treatments every 4 hours as needed. 5. Paroxysmal atrial fibrillation. Hold Xarelto 20 mg at bedtime, continue patient on amiodarone 100 mg at bedtime, Lopressor 25 mg twice daily. 6. Benign prostatic hypertrophy. Continue Flomax 0.4 mg at bedtime, monitor for urinary retention. 6. Hereditary factor VIII deficiency. Resume Xarelto once cleared by orthopedic surgeon. Patient is day #3 without Xarelto. Patient will be started on Lovenox based on weight. Plan to continue this for tonight morning and discontinue after that in preparation for surgery on Monday. 7. Hyperlipidemia. Continue Zetia 10 mg daily 8. Hypertension. Continue losartan 25 mg daily, Lopressor 25 mg twice daily. 9. GI prophylaxis. Protonix 40 mg po daily. 10. DVT prophylaxis. Xarelto will be resumed following surgery once cleared by orthopedics DISCHARGE PLAN Subacute rehab at [facility]. Patient is not safe to be discharged home and at high risk for falls with further injury. Impression and plan of care have been directed as dictated by the signing physician. Melissa Hairston nurse practitioner acting as scribe for signing physician. Objective - Vital Signs Vital signs: Vital Signs Temp 98.4 F 10/20/23 11:30 Pulse 74 10/20/23 12:25 Resp 16 10/20/23 12:25 BP 106/66 10/20/23 12:25 Pulse Ox 95 10/20/23 12:25 FiO2 21 10/20/23 11:09 Intake & Output 10/19/23 10/20/23 10/20/23 18:59 06:59 18:59 Intake Total 120 151 Output Total 250 500 Balance -130 -500 151 Intake: IV 151 Oral 120 Output: Urine 250 500 Other: Voiding Method Urinal Urinal Diaper Diaper # Voids 1 - Labs CBC & Chem 7: 10/18/23 17:32 10/18/23 17:32 Labs: Microbiology - Last 24 Hours (Table) 10/16/23 14:00 Blood Culture - Preliminary Blood 10/16/23 13:45 Blood Culture - Preliminary Blood
--- NOTE | 2023-10-20 17:34 | XR ---
Fluoroscopy INDICATION: Pain FINDINGS: Fluoroscopy time: 1 minute 29 seconds. Total dose area product (DAP) in uGy*m?, mGy*cm? (or similar): 1.9173 Images obtained: 5. IMPRESSION: 1. Documentation of fluoroscopy.
[2023-10-20] MEDS ORDERED: ALBUTEROL NEBULIZED 2.5 MG/3 ML INHALATION ONE (18:15)
--- NOTE | 2023-10-20 18:40 | P.OP ---
Date of Procedure: 10/20/23 Preoperative Diagnosis: Right distal humerus fracture Postoperative Diagnosis: Right distal humerus fracture Procedure(s) Performed: Open reduction internal fixation of right distal humerus fracture Implants: Evelyn Variax 2 distal humerus plates x2 Anesthesia: PERLAA Surgeon: Terry Alvarez [employer] Associate #1: Arianne Miller Estimated Blood Loss (ml): 200 Pathology: none sent Condition: stable Disposition: PACU Description of Procedure: This is a 82 year old male who sustained a displaced right distal humerus fracture after falling and presents today for surgical intervention. Risks and benefits of surgery were discussed with the patient including bleeding, damage to surrounding tissue, possible need for irritable hardware removal in the future infection, need for further surgery as well as risks of anesthesia including pulmonary embolism and even and the patient wished to proceed with surgical intervention. The patient was seen in the pre-operative area by myself. Consent and H&P were completed and updated. The correct extremity was marked in the pre-operative area by myself and all other questions were answered. Operative Narrative: The patient was brought to the operating room by the department of anes thea. They were placed supine on the operative table and general anesthesia was performed. The patient was then drifted off to sleep by the department of anesthesia. A nonsterile tourniquet was then applied to the operative extremity and the patient was then placed in a samuel bag lateral position with all joshua prominences well padded, axillary role was placed. The upper extremity was then prepped and draped in normal sterile fashion. Pre-operative time out was performed indicating the correct patient, procedure and laterality. All in the room agreed. Pre-operative antibiotics were given prior to skin incision. A nonsterile tourniquet was then applied to the operative extremity and the right upper extremity was then prepped and draped in normal sterile fashion. The operative extremity was the exsanguinated with an esmarch bandage and the tourniquet was inflated to 250mmHg. 15 blade scalpel was utilized to make a longitudinal incision over the posterior aspect of the elbow that was directed slightly medial around the olecranon process. Full thickness flaps were then made down to the posterior aspect of the triceps tendon. Dissection was then carried medially and the ulnar nerve was identified proximally and then dissected out along it's distal course through the cubital tunnel which was released and the deep and superficial fascia of the two heads of the FCU muscle were decompressed and the nerve was able to be mobilized. The nerve was found to be trapped in the fracture site and appeared very compressed, erythematous and irritated after removal. A subcutaneous pocket was then created anteriorly and the ulnar nerve was then tucked into the pocket out of the fracture site and tagged with a vessel loop. The medial intermuscular septum was then identified and the medial triceps was elevated off of the intermuscular septum to reveal the medial column of the distal humerus. The triceps was then from the underlying capsule. Looking through the medial window it appeared the fracture was a transverse supracondylar fracture without intra-articular extension and decision was made to go forward with a triceps sparing approach. 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 There were no obvious cortical fracture reads with the rounded edges but the outer cortex of the medial epicondyle was able to be easily identified and read for fracture approximation. A Mckenzie elevator was utilized to bluntly pass around the distal humerus posteriorly to the lateral intermuscular septum region. The lateral boarder of the triceps was then developed and the lateral column was exposed with sharp dissection. Radial nerve was identified and was found to have a relatively distal crossing point along the posterior humerus. This was identified and protected. Both the medial and lateral columns were now adequately exposed. The fracture site was opened up and irrigation and suction was utilized to remove any free floating small bone fragments in the joint and subcutaneous tissue and to debride the cortical edges. Reduction was performed and two K-wires were then inserted in retrograde fashion up both the medial and lateral columns out of the region of planned plate placement. Reduction was confirmed both visually and with C-Arm. A medial distal humerus Evelyn Variax 2 locking plate was applied to the reduced medial epicondyle and found to fit the patients anatomy well. Distally this plate was held in place with a k-wire and the plate was then fixed proximally to the metadiaphyseal region with a non locking screw in the oblong hole. The same was then done for the lateral column. Distal fixation was then performed and screws were placed crossing both columns. Supracondylar compression was then applied across the fracture site, the proximal holes of the medial and lateral plates were drilled eccentrically to aid in compression. The distal K-wires were then removed and drilled and filled with locking screws. The lateral posterior cortical read was very poor due to rounded edges and the void was filled with crushed cancellous graft. Final imaging confirmed correct screw length with no intra-articular penetration, elbow range of motion was smooth without any obvious intra-articlar penetration of the screws. The wound was then irrigated. The ulnar nerve was then placed back posteriorly. Layered closure was performed with 2-0 vicryl suture followed by 3-0 nylon suture in a horizontal mattress fashion. Sterile dressing was applied consisting of a adaptic, bacitracin, 4x4s, cast padding, and a posterior slab plaster splint. Tourniquet was let down and the hand had immediate perfusion. The patient was then transferred to PACU in stable condition. Veronica Brown NP was present for the case to assist in major portions including hardware placement and fracture reduction. Terry Alvarez D.O. Orthopedic Hand/Upper Extremity Surgeon
[2023-10-20] MEDS ORDERED: METOPROLOL TARTRATE 5 MG/5 ML VIAL IVP ONE (18:58)
[2023-10-20] MEDS: LACTATED RINGERS 1,000 ML IV SCH (20:26)
[2023-10-20] MEDS: TAMSULOSIN 0.4 MG CAP.ER.24H PO SCH (20:27)
[2023-10-20] MEDS: AMIODARONE 100 MG TAB PO SCH (20:27)
[2023-10-20] MEDS: ATORVASTATIN 40 MG TAB PO SCH (20:27)
[2023-10-21] MEDS: SYMBICORT 80-4.5 MCG INHALER INHALATION SCH ×2 (07:38→18:02)
[2023-10-21] MEDS: IPRATROPIUM-ALBUTEROL 3 ML NEB INHALATION SCH ×4 (07:38→18:02)
[2023-10-21] MEDS: METOPROLOL TARTRATE 25 MG TAB PO SCH ×2 (09:25→20:05)
[2023-10-21] MEDS: EZETIMIBE 10 MG TAB PO SCH (09:25)
[2023-10-21] MEDS: FOLIC ACID 1 MG TAB PO SCH (09:25)
[2023-10-21] MEDS: MULTIVITAMINS, THERA 1 EACH TAB PO SCH (09:25)
[2023-10-21] MEDS: ISOSORBIDE MONONITRATE ER 30 MG TAB.ER.24H PO SCH (09:25)
[2023-10-21] MEDS: traMADol 50 MG TAB PO SCH ×3 (09:25→22:16)
[2023-10-21] MEDS: CYANOCOBALAMIN 500 MCG TAB PO SCH (09:25)
[2023-10-21 09:42] LABS: Basophils % (A) 0 %; Eosinophils % (A) 0 %; HGB 13.6 gm/dL (13.0-17.5); Lymphocytes # (A) 0.6 k/uL (1.0-4.8); Lymphocytes % (A) 4 %; MCH 31.2 pg (25.0-35.0); MCHC 33.1 g/dL (31.0-37.0); MCV 94.2 fL (80.0-100.0); Mean Platelet Volume 9.1; Monocytes # (A) 0.7 k/uL (0-1.0); Monocytes % (A) 5 %; Neutrophils # (A) 11.3 k/uL (1.3-7.7); Neutrophils % (A) 89 %; Platelet Count 240 k/uL (150-450); RBC 4.35 m/uL (4.30-5.90); RDW 14.6 % (11.5-15.5); WBC 12.7 k/uL (3.8-10.6)
[2023-10-21 09:44] LABS: INR 1.1 (<1.2); Prothrombin Time 11.4 sec (10.0-12.5)
[2023-10-21 10:27] LABS: African American GFR (CKD) 76 (>60 ml/min/1.73 sqM); Anion Gap 13 mmol/L; Blood Urea Nitrogen 27 mg/dL (9-20); Calcium 8.7 mg/dL (8.4-10.2); Carbon Dioxide 25 mmol/L (22-30); Chloride 100 mmol/L (98-107); Glucose 112 mg/dL (74-99); Non-African American GFR(CKD) 66 (>60 ml/min/1.73 sqM); Potassium 4.8 mmol/L (3.5-5.1); Sodium 138 mmol/L (137-145)
--- NOTE | 2023-10-21 14:23 | P.PN ---
Progress Note - Text Progress Note Date: 10/21/23 Subjective: The patient was seen and examined at bedside today by myself. He is resting comfortably in bed and is postoperative day 1 after undergoing a right distal humerus open reduction and internal fixation. His pain has been controlled as his nerve block is wearing off. He denies any numbness or tingling in the hand and is able to move all the fingers. We discussed intraoperative findings that this fracture appeared to be to some degree subacute in nature. He now recalls a significant fall approximately 1 month ago where he thought he hurt the elbow but never sought any treatment. 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 He states he has yet to have a bowel movement. Physical Exam: RUE: AIN/PIN/Radial/Ulnar/Median motor intact. Radial/Ulnar/Median SILT. 2+/4 Radial/Ulnar pulses palpated. Able to make a full fist. Splint is in place. Cap refill to digits is <3 seconds. Assessment: 1.) POD 1 right distal humerus ORIF Plan: Intraoperative findings and details of surgery were discussed in detail with the patient and all questions were answered. We will plan to keep the postoperative splint on for the next 24 hours and then initiate early range of motion starting Monday with passive and active flexion and extension, elbow exercises. He is to remain nonweightbearing in the splint until splint removal but may start immediate hand and finger range of motion. Recommend ice for swelling control 3 times a day. He may continue DVT prophylaxis with Xarelto which he was previously on. The current plan is placement at [facility]. Recommend bowel stimulation due to lack of bowel movement thus far in the hospital stay. Orthopedics will continue to follow the patient. He may follow up in 10-14 days in the outpatient setting for his first post operative appointment. -Terry Alvarez DO Orthopedic Hand/Upper Extremity Surgeon
[2023-10-21] MEDS: LACTATED RINGERS 1,000 ML IV SCH (14:26)
--- NOTE | 2023-10-21 15:26 | P.PN ---
Subjective Progress Note Date: 10/21/23 HISTORY OF PRESENT ILLNESS This is a 82-year-old male with past medical history of hypertension, paroxysmal atrial fibrillation on Xarelto, benign prostatic hypertrophy, hiatal hernia, hereditary factor VIII deficiency, hyperlipidemia, mild intermittent asthma, possible COPD. patient presented to the emergency center via ambulance due to fall the previous night in his bathroom. Patient injured his right elbow. No loss of consciousness. Patient ended up staying on the floor for the night, approximately 8 hours, until he was able to crawl and get to a phone call for assistance. He was found to have significant deformity of the right elbow and was brought into the emergency center. Blood pressure was elevated at the time at 162/97 otherwise vital signs were stable and he has been afebrile. The splint has been applied to the right arm and patient is seen today in the emergency center. Platelet count was found to be 146. Sodium 133 and potassium 4.6, creatinine was 1.48 and baseline is 0.9. CK 205. Urinalysis was bloody. Urine drug screen negative. Serum alcohol negative. Patient Efra for been on the [facility] floor and orthopedic consult in place. X-rays of the right wrist showed no acute abnormality. X-ray of the right elbow soft tissue swelling. No definite fracture or dislocation. Diffuse degenerative changes. Chest x-ray: Enlarged cardiomediastinal silhouette. Pelvis x-ray no acute abnormality. CT right elbow: Age indeterminate transverse supracondylar fracture of the distal humerus. Acute or subacute etiology cannot be excluded. CAT scan of the head reveals no acute fracture or traumatic subluxation. Prominent multilevel cervical spondylosis. 10/17: Patient is currently waiting for surgery on his elbow. He is off Xarelto and will be started on Lovenox at the three-day isidro. He has history of factor VIII deficiency. Patient remains with a sling and Johnny wrap on the right arm. Patient remains afebrile, heart rate in the 70s, blood pressure 101/64, pulse ox 92% on room air. Patient is currently waiting for surgery. 10/18: Patient surgery is delayed until Monday to wait for improvement of swelling. Patient will be started on Lovenox tonight based on weight due to his factor VIII deficiency. Plan for him to receive Lovenox on Monday and morning and then discontinue prior to surgery. Heart rate is in the 90s and 80s, blood pressure 113/74, pulse ox 95% on room air. Discharge plan is for subacute rehab at [facility] or [facility] following surgery. 10/19: Yesterday, patient was started on Lovenox for Dr. Cristiano aaron. This will be discontinued today after the morning dose in preparation for surgery tomorrow. Heart rate is been in the 70s and 80s, blood pressure 117/78, pulse ox 92% on room air. Blood work ordered yesterday afternoon reveals CBC is unremarkable with hemoglobin of 14.9. Sodium 134, potassium 4.4, BUN 26 creatinine 1.11. 10/20: Patient is status post surgical intervention. He is looking at rehab at [facility] and has been accepted awaiting insurance authorization. Patient has been afebrile, heart rate 74, blood pressure 106/66, pulse ox 95% on 2 L nasal cannula. Plan to discharge patient to rehab once arrangements are completed 10/21: Patient is post-op day #1 for ORIF of the right distal humerus fracture and open ulnar nerve neuroplasty at the elbow. Patient is awake and alert. Son was concerned that patient is confused but he seems to be mentally intact. He has been resumed back on Xarelto starting today. His heart rate has been in the 80s and 90s, blood pressure 138/79, afebrile, pulse ox 95% on room air. WBC 12.7, hemoglobin 13.6, platelet count 240. BUN 27 creatinine 1.07. Blood sugar 112. Electrolytes within normal limits. Patient states he ate his breakfast this morning, he denies any nausea or vomiting. No lightheadedness or dizziness the patient is not been out of bed yet. He does need assistance to get out of bed and is a risk for falls. Blood culture no growth after 72 hours. Discharge plan is [facility] on Monday for subacute rehab. REVIEW OF SYSTEMS Constitutional: No fever, no chills, no night sweats. No weight change. Reports weakness, Reports fatigue Reports lethargy. No daytime sleepiness. EENT: No headache. No blurred vision or double vision, no loss of vision. No loss of Hearing, no ringing in the ears, no dizziness. No nasal drainage or congestion. No epistaxis. No sore throat. Lungs: Reports shortness of breath, Reports cough, Reports sputum production. Reports wheezing. Cardiovascular: No chest pain, no lower extremity edema. No palpitations. No paroxysmal nocturnal dyspnea. No orthopnea. No lightheadedness or dizziness. No syncopal episodes. Abdominal: No abdominal pain. No nausea, vomiting. No diarrhea. No constipation. No bloody or tarry stools. No loss of appetite. Genitourinary: No dysuria, increased frequency, urgency. No urinary retention. Musculoskeletal: No myalgias. Reports muscle weakness, no gait dysfunction, no frequent falls. No back pain. No neck pain. + Right elbow pain Integumentary: No wounds, no lesions. No rash or pruritus. No unusual bruising. No change in hair or nails. Neurologic: No aphasia. No facial droop. No change in mentation. No head injury. No headache. No paralysis. No paresthesia. Psychiatric: No depression. No anxiety. No mood swings. Endocrine: No abnormal blood sugars. No weight change. No excessive sweating or thirst. No cold intolerance. PHYSICAL EXAMINATION Gen: This is an obese 82-year-old male, resting in bed, appears to be fairly comfortable at rest. HEENT: Head is atraumatic, normocephalic. Pupils equal, round. Sclerae is anicteric. NECK: Supple. No JVD. No lymphadenopathy. No thyromegaly. LUNGS: Diminished breath sounds bilaterally. No intercostal retractions. HEART: First heart sound is depressed, second heart sound is normal, 2/6 systolic ejection murmur at the left sternal border. ABDOMEN: Soft. Bowel sounds are present. No masses. No tenderness. EXTREMITIES: No pedal edema. No calf tenderness. Cast and splint in place to the right arm. Dorsalis pedis palpable bilaterally. NEUROLOGICAL: Patient is awake, alert and oriented x3. Cranial nerves 2 through 12 are grossly intact. ASSESSMENT AND PLAN 1. Acute right distal humerus fracture status post ORIF of the right distal humerus fracture and open ulnar nerve neuroplasty at the elbow 10/20. Consult with orthopedics appreciated. Continue patient on morphine 4 mg IV push every 4 hours as needed for pain or tramadol 50 mg 3 times daily for pain. Maintain splint to the right arm. Incentive spirometry to reduce incidence of atelectasis and hospital-acquired pneumonia. Patient has been resumed on Xarelto 2. Possible UTI. Patient started on ceftriaxone 1 g IV piggyback every 24 hours. 3. COPD without exacerbation. Continue patient on albuterol every 4 hours as needed for shortness of breath, Symbicort 804 0.5 g 2 puffs twice daily. 4. Mild intermittent asthma. Continue Singulair 10 mg at bedtime, Claritin as needed, albuterol nebulizer treatments every 4 hours as needed. 5. Paroxysmal atrial fibrillation. Hold Xarelto 20 mg at bedtime, continue patient on amiodarone 100 mg at bedtime, Lopressor 25 mg twice daily. 6. Benign prostatic hypertrophy. Continue Flomax 0.4 mg at bedtime, monitor for urinary retention. 6. Hereditary factor VIII deficiency. Resume Xarelto. 7. Hyperlipidemia. Continue Zetia 10 mg daily 8. Hypertension. Continue losartan 25 mg daily, Lopressor 25 mg twice daily. 9. GI prophylaxis. Protonix 40 mg po daily. 10. DVT prophylaxis. Xarelto will be resumed following surgery once cleared by orthopedics DISCHARGE PLAN Subacute rehab at [facility] on Monday. Impression and plan of care have been directed as dictated by the signing physician. Melissa Hairston nurse practitioner acting as scribe for signing physician. Objective - Vital Signs Vital signs: Vital Signs Temp 98.8 F 10/21/23 08:00 Pulse 97 10/21/23 08:00 Resp 17 10/21/23 08:00 BP 138/79 10/21/23 08:00 Pulse Ox 95 10/21/23 08:00 FiO2 21 10/20/23 11:09 Intake & Output 10/20/23 10/21/23 10/21/23 18:59 06:59 18:59 Intake Total 2251 Output Total 200 Balance 2050 Intake: IV 2251 Output: Estimated Blood Loss 200 Other: Voiding Method Urinal Diaper # Voids 3 - Labs CBC & Chem 7: 10/21/23 06:53 10/21/23 06:53 Labs: Abnormal Lab Results - Last 24 Hours (Table) 10/21/23 10/21/23 Range/Units 06:53 06:53 WBC 12.7 H (3.8-10.6) k/uL Neutrophils # 11.3 H (1.3-7.7) k/uL Lymphocytes # 0.6 L (1.0-4.8) k/uL BUN 27 H (9-20) mg/dL Glucose 112 H (74-99) mg/dL
[2023-10-21] MEDS: TAMSULOSIN 0.4 MG CAP.ER.24H PO SCH (20:05)
[2023-10-21] MEDS: RIVAROXABAN 20 MG TAB PO SCH (20:05)
[2023-10-21] MEDS: AMIODARONE 100 MG TAB PO SCH (20:05)
[2023-10-21] MEDS: ATORVASTATIN 40 MG TAB PO SCH (20:05)
[2023-10-22] MEDS: SYMBICORT 80-4.5 MCG INHALER INHALATION SCH ×2 (07:37→20:07)
[2023-10-22] MEDS: IPRATROPIUM-ALBUTEROL 3 ML NEB INHALATION SCH ×4 (07:37→20:07)
[2023-10-22] MEDS: traMADol 50 MG TAB PO SCH ×3 (09:38→22:26)
[2023-10-22] MEDS: EZETIMIBE 10 MG TAB PO SCH (09:38)
[2023-10-22] MEDS: ISOSORBIDE MONONITRATE ER 30 MG TAB.ER.24H PO SCH (09:38)
[2023-10-22] MEDS: MULTIVITAMINS, THERA 1 EACH TAB PO SCH (09:38)
[2023-10-22] MEDS: METOPROLOL TARTRATE 25 MG TAB PO SCH ×2 (09:38→20:21)
[2023-10-22] MEDS: CYANOCOBALAMIN 500 MCG TAB PO SCH (09:38)
[2023-10-22] MEDS: FOLIC ACID 1 MG TAB PO SCH (09:38)
--- NOTE | 2023-10-22 13:57 | P.PN ---
Subjective Progress Note Date: 10/22/23 HISTORY OF PRESENT ILLNESS This is a 82-year-old male with past medical history of hypertension, paroxysmal atrial fibrillation on Xarelto, benign prostatic hypertrophy, hiatal hernia, hereditary factor VIII deficiency, hyperlipidemia, mild intermittent asthma, possible COPD. patient presented to the emergency center via ambulance due to fall the previous night in his bathroom. Patient injured his right elbow. No loss of consciousness. Patient ended up staying on the floor for the night, approximately 8 hours, until he was able to crawl and get to a phone call for assistance. He was found to have significant deformity of the right elbow and was brought into the emergency center. Blood pressure was elevated at the time at 162/97 otherwise vital signs were stable and he has been afebrile. The splint has been applied to the right arm and patient is seen today in the emergency center. Platelet count was found to be 146. Sodium 133 and potassium 4.6, creatinine was 1.48 and baseline is 0.9. CK 205. Urinalysis was bloody. Urine drug screen negative. Serum alcohol negative. Patient Efra for been on the [facility] floor and orthopedic consult in place. X-rays of the right wrist showed no acute abnormality. X-ray of the right elbow soft tissue swelling. No definite fracture or dislocation. Diffuse degenerative changes. Chest x-ray: Enlarged cardiomediastinal silhouette. Pelvis x-ray no acute abnormality. CT right elbow: Age indeterminate transverse supracondylar fracture of the distal humerus. Acute or subacute etiology cannot be excluded. CAT scan of the head reveals no acute fracture or traumatic subluxation. Prominent multilevel cervical spondylosis. 10/17: Patient is currently waiting for surgery on his elbow. He is off Xarelto and will be started on Lovenox at the three-day isidro. He has history of factor VIII deficiency. Patient remains with a sling and Johnny wrap on the right arm. Patient remains afebrile, heart rate in the 70s, blood pressure 101/64, pulse ox 92% on room air. Patient is currently waiting for surgery. 10/18: Patient surgery is delayed until Monday to wait for improvement of swelling. Patient will be started on Lovenox tonight based on weight due to his factor VIII deficiency. Plan for him to receive Lovenox on Monday and morning and then discontinue prior to surgery. Heart rate is in the 90s and 80s, blood pressure 113/74, pulse ox 95% on room air. Discharge plan is for subacute rehab at [facility] or [facility] following surgery. 10/19: Yesterday, patient was started on Lovenox for Dr. Cristiano aaron. This will be discontinued today after the morning dose in preparation for surgery tomorrow. Heart rate is been in the 70s and 80s, blood pressure 117/78, pulse ox 92% on room air. Blood work ordered yesterday afternoon reveals CBC is unremarkable with hemoglobin of 14.9. Sodium 134, potassium 4.4, BUN 26 creatinine 1.11. 10/20: Patient is status post surgical intervention. He is looking at rehab at [facility] and has been accepted awaiting insurance authorization. Patient has been afebrile, heart rate 74, blood pressure 106/66, pulse ox 95% on 2 L nasal cannula. Plan to discharge patient to rehab once arrangements are completed 10/21: Patient is post-op day #1 for ORIF of the right distal humerus fracture and open ulnar nerve neuroplasty at the elbow. Patient is awake and alert. Son was concerned that patient is confused but he seems to be mentally intact. He has been resumed back on Xarelto starting today. His heart rate has been in the 80s and 90s, blood pressure 138/79, afebrile, pulse ox 95% on room air. WBC 12.7, hemoglobin 13.6, platelet count 240. BUN 27 creatinine 1.07. Blood sugar 112. Electrolytes within normal limits. Patient states he ate his breakfast this morning, he denies any nausea or vomiting. No lightheadedness or dizziness the patient is not been out of bed yet. He does need assistance to get out of bed and is a risk for falls. Blood culture no growth after 72 hours. Discharge plan is [facility] on Monday for subacute rehab. 10/22: Patient is sitting up in bed in no apparent distress, he continues to have some pain in the right shoulder, he denies any chest pain, or any shortness breath, he to be tolerated treatment very well, patient will likely be discharged to [facility] tomorrow morning for physical therapy and rehabilitation. REVIEW OF SYSTEMS Constitutional: No fever, no chills, no night sweats. No weight change. Reports weakness, Reports fatigue Reports lethargy. No daytime sleepiness. EENT: No headache. No blurred vision or double vision, no loss of vision. No loss of Hearing, no ringing in the ears, no dizziness. No nasal drainage or congestion. No epistaxis. No sore throat. Lungs: Reports shortness of breath, Reports cough, Reports sputum production. Reports wheezing. Cardiovascular: No chest pain, no lower extremity edema. No palpitations. No paroxysmal nocturnal dyspnea. No orthopnea. No lightheadedness or dizziness. No syncopal episodes. Abdominal: No abdominal pain. No nausea, vomiting. No diarrhea. No constipation. No bloody or tarry stools. No loss of appetite. Genitourinary: No dysuria, increased frequency, urgency. No urinary retention. Musculoskeletal: No myalgias. Reports muscle weakness, no gait dysfunction, no frequent falls. No back pain. No neck pain. + Right elbow pain Integumentary: No wounds, no lesions. No rash or pruritus. No unusual bruising. No change in hair or nails. Neurologic: No aphasia. No facial droop. No change in mentation. No head injury. No headache. No paralysis. No paresthesia. Psychiatric: No depression. No anxiety. No mood swings. Endocrine: No abnormal blood sugars. No weight change. No excessive sweating or thirst. No cold intolerance. PHYSICAL EXAMINATION Gen: This is an obese 82-year-old male, resting in bed, appears to be fairly comfortable at rest. HEENT: Head is atraumatic, normocephalic. Pupils equal, round. Sclerae is a nicteric. NECK: Supple. No JVD. No lymphadenopathy. No thyromegaly. LUNGS: Diminished breath sounds bilaterally. No intercostal retractions. HEART: First heart sound is depressed, second heart sound is normal, 2/6 systolic ejection murmur at the left sternal border. ABDOMEN: Soft. Bowel sounds are present. No masses. No tenderness. EXTREMITIES: No pedal edema. No calf tenderness. Cast and splint in place to the right arm. Dorsalis pedis palpable bilaterally. NEUROLOGICAL: Patient is awake, alert and oriented x3. Cranial nerves 2 through 12 are grossly intact. ASSESSMENT AND PLAN 1. POD #2 S/P Acute right distal humerus fracture status post ORIF of the right distal humerus fracture and open ulnar nerve neuroplasty at the elbow. Continue current pain management, continue to monitor the patient very closely, fall precautions, follow up with the patient very closely. 2. Possible UTI. Patient has been on ceftriaxone 1 g IV piggyback every 24 hours, we'll switch to oral Ceftin tomorrow morning. 3. COPD without exacerbation. Continue patient on albuterol every 4 hours as needed for shortness of breath, Symbicort 804 0.5 g 2 puffs twice daily. 4. Mild intermittent asthma. Continue Singulair 10 mg at bedtime, Claritin as needed, albuterol nebulizer treatments every 4 hours as needed. 5. Paroxysmal atrial fibrillation. Hold Xarelto 20 mg at bedtime, continue patient on amiodarone 100 mg at bedtime, Lopressor 25 mg twice daily. 6. Benign prostatic hypertrophy. Continue Flomax 0.4 mg at bedtime, monitor for urinary retention. 6. Hereditary factor VIII deficiency. Resume Xarelto. 7. Hyperlipidemia. Continue Zetia 10 mg daily 8. Hypertension. Continue losartan 25 mg daily, Lopressor 25 mg twice daily. 9. GI prophylaxis. Protonix 40 mg po daily. 10. DVT prophylaxis. Continue patient on Xarelto. 11. We will follow with you. Objective - Vital Signs Vital signs: Vital Signs Temp 97.9 F 10/22/23 08:00 Pulse 84 10/22/23 11:21 Resp 19 10/22/23 08:00 BP 129/78 10/22/23 08:00 Pulse Ox 96 10/22/23 08:00 FiO2 21 10/20/23 11:09 Intake & Output 10/21/23 10/22/23 10/22/23 18:59 06:59 18:59 Intake Total 880 1430 120 Output Total 300 Balance 880 1130 120 Intake: Oral 880 1430 120 Output: Urine 300 Other: Voiding Method Urinal Urinal Diaper Diaper # Voids 3 4 1 - Labs CBC & Chem 7: 10/21/23 06:53 10/21/23 06:53 Labs: Microbiology - Last 24 Hours (Table) 10/16/23 14:00 Blood Culture - Final Blood 10/16/23 13:45 Blood Culture - Final Blood
[2023-10-22] MEDS: LACTATED RINGERS 1,000 ML IV SCH (16:51)
[2023-10-22] MEDS ORDERED: NA PHOS,M-B/NA PHOS,DI-BA 133 ML ENEMA RECTAL PRN (19:56)
[2023-10-22] MEDS ORDERED: MAGNESIUM HYDROXIDE 2,400 MG/30 ML CUP PO PRN (19:56)
--- NOTE | 2023-10-22 19:56 | P.PN ---
Subjective Progress Note Date: 10/22/23 Principal diagnosis: Right elbow fracture Patient seen and examined this morning. Family friend is present at bedside. Patient is resting comfortably in bed. He is aware that he is slightly confused at times. This has been ongoing since the of his in April 2023 and l ongtime pet few weeks after. Right upper extremity presents with splint and Johnny wrap intact elevated on one pillow and in sling. Patient denies any numbness or tingling to the right upper extremity and is able to wiggle fingers. Patient is looking forward to the removal of the splint to begin range of motion exercises tomorrow. Patient reports his pain is managed on current regimen. He verbalizes his understanding of his need to go to subacute rehab at discharge. No acute concerns at this time. Objective - Vital Signs Vital signs: Vital Signs Temp 97.9 F 10/22/23 08:00 Pulse 74 10/22/23 08:00 Resp 19 10/22/23 08:00 BP 129/78 10/22/23 08:00 Pulse Ox 96 10/22/23 08:00 FiO2 21 10/20/23 11:09 Intake & Output 10/21/23 10/22/23 10/22/23 18:59 06:59 18:59 Intake Total 880 1430 120 Output Total 300 Balance 880 1130 120 Intake: Oral 880 1430 120 Output: Urine 300 Other: Voiding Method Urinal Urinal Diaper Diaper # Voids 3 4 - Exam Inspection: Negative for any open fractures, edematous noted to right upper extremity. Surgical incision to the right elbow, right upper extremity presents with Johnny wrap and splint intact, elevated on pillow and sling present. Sensation: Sensation is equal, symmetric, bilaterally intact throughout the upper and lower extremities Palpation: Tenderness to palpation over the right elbow. Range of motion: Patient does have full range of motion bilateral upper and lower extremities on exam, limited range of motion to the right elbow due to splint and pain. Motor: 4/5 in all major motor groups in the bilateral upper and lower extremities Special tests: Negative Homans bilaterally. Negative Nilesh bilaterally. Negative clonus bilaterally. Neurovascular: Radial pulse intact, 2+ bilaterally. Cap refill under 3 seconds in digits upper extremities. - Labs CBC & Chem 7: 10/21/23 06:53 10/21/23 06:53 Labs: Microbiology - Last 24 Hours (Table) 10/16/23 14:00 Blood Culture - Final Blood 10/16/23 13:45 Blood Culture - Final Blood Assessment and Plan Assessment: Postop day 2: Right distal humerus ORIF Right upper extremity distal humerus fracture Plan: 1. Appreciate medical management 2. Pain management - tramadol; tylenol, Recommend ice for swelling control 3 times a day. 3. GI prophylaxis - senna 4. DVT prophylaxis - Xarelto 5. PT/OT - nonweightbearing right upper extremity, start immediate hand and finger range of motion. Maintain in splint at all times. Maintain in sling. Weight-bear as tolerated bilateral lower extremities. We will initiate early range of motion starting Monday with passive and active flexion and extension, elbow exercises after we remove splint. 6. Encourage incentive spirometer use 7. Appreciate consult, He may follow up in 10-14 days in the outpatient setting for his first post operative appointment. I reviewed and discussed this case with my attending Dr. Alvarez, whom has reviewed this chart and films and is in agreement with assessment and plan of care as outlined above. I have personally seen and examined the patient, performed the documentation and the assessment and plan as written. Number of minutes spent on the visit: 15m.
[2023-10-22] MEDS: TAMSULOSIN 0.4 MG CAP.ER.24H PO SCH (20:20)
[2023-10-22] MEDS: ATORVASTATIN 40 MG TAB PO SCH (20:20)
[2023-10-22] MEDS: polyethylene glycoL 3350 17 GM POWD.PACK PO SCH (20:20)
[2023-10-22] MEDS: AMIODARONE 100 MG TAB PO SCH (20:21)
[2023-10-22] MEDS: RIVAROXABAN 20 MG TAB PO SCH (20:21)
[2023-10-23] MEDS: IPRATROPIUM-ALBUTEROL 3 ML NEB INHALATION SCH ×4 (07:28→19:40)
[2023-10-23] MEDS: SYMBICORT 80-4.5 MCG INHALER INHALATION SCH ×2 (07:28→19:40)
--- NOTE | 2023-10-23 07:39 | P.DS ---
Providers Date of admission: 10/16/23 08:27 Expected date of discharge: 10/23/23 Attending physician: Buzz Zimmerman Consults: 10/16/23 08:27 Consult Physician Urgent Consulting Provider: Terry Alvarez Consult Reason/Comments: right elbow fracture Do you want consulting provider notified?: Already Contacted Primary care physician: Buzz Zimmerman [facility] Course: HISTORY OF PRESENT ILLNESS This is a 82-year-old male with past medical history of hypertension, paroxysmal atrial fibrillation on Xarelto, benign prostatic hypertrophy, hiatal hernia, hereditary factor VIII deficiency, hyperlipidemia, mild intermittent asthma, possible COPD. patient presented to the emergency center via ambulance due to fall the previous night in his bathroom. Patient injured his right elbow. No loss of consciousness. Patient ended up staying on the floor for the night, approximately 8 hours, until he was able to crawl and get to a phone call for assistance. He was found to have significant deformity of the right elbow and was brought into the emergency center. Blood pressure was elevated at the time at 162/97 otherwise vital signs were stable and he has been afebrile. The splint has been applied to the right arm and patient is seen today in the emergency center. Platelet count was found to be 146. Sodium 133 and potassium 4.6, creatinine was 1.48 and baseline is 0.9. CK 205. Urinalysis was bloody. Urine drug screen negative. Serum alcohol negative. Patient Efra for been on the [facility] floor and orthopedic consult in place. X-rays of the right wrist showed no acute abnormality. X-ray of the right elbow soft tissue swelling. No definite fracture or dislocation. Diffuse degenerative changes. Chest x-ray: Enlarged cardiomediastinal silhouette. Pelvis x-ray no acute abnormality. CT right elbow: Age indeterminate transverse supracondylar fracture of the distal humerus. Acute or subacute etiology cannot be excluded. CAT scan of the head reveals no acute fracture or traumatic subluxation. Prominent multilevel cervical spondylosis. 10/17: Patient is currently waiting for surgery on his elbow. He is off Xarelto and will be started on Lovenox at the three-day isidro. He has history of factor VIII deficiency. Patient remains with a sling and Johnny wrap on the right arm. Patient remains afebrile, heart rate in the 70s, blood pressure 101/64, pulse ox 92% on room air. Patient is currently waiting for surgery. 10/18: Patient surgery is delayed until Monday to wait for improvement of swelling. Patient will be started on Lovenox tonight based on weight due to his factor VIII deficiency. Plan for him to receive Lovenox on Monday and morning and then discontinue prior to surgery. Heart rate is in the 90s and 80s, blood pressure 113/74, pulse ox 95% on room air. Discharge plan is for subacute rehab at [facility] or [facility] following surgery. 10/19: Yesterday, patient was started on Lovenox for Dr. 8 deficiency. This will be discontinued today after the morning dose in preparation for surgery tomorrow. Heart rate is been in the 70s and 80s, blood pressure 117/78, pulse ox 92% on room air. Blood work ordered yesterday afternoon reveals CBC is unremarkable with hemoglobin of 14.9. Sodium 134, potassium 4.4, BUN 26 creatinine 1.11. 10/20: Patient is status post surgical intervention. He is looking at rehab at [facility] and has been accepted awaiting insurance authorization. Patient has been afebrile, heart rate 74, blood pressure 106/66, pulse ox 95% on 2 L nasal cannula. Plan to discharge patient to rehab once arrangements are completed 10/21: Patient is post-op day #1 for ORIF of the right distal humerus fracture and open ulnar nerve neuroplasty at the elbow. Patient is awake and alert. Son was concerned that patient is confused but he seems to be mentally intact. He has been resumed back on Xarelto starting today. His heart rate has been in the 80s and 90s, blood pressure 138/79, afebrile, pulse ox 95% on room air. WBC 12.7, hemoglobin 13.6, platelet count 240. BUN 27 creatinine 1.07. Blood sugar 112. Electrolytes within normal limits. Patient states he ate his breakfast this morning, he denies any nausea or vomiting. No lightheadedness or dizziness the patient is not been out of bed yet. He does need assistance to get out of bed and is a risk for falls. Blood culture no growth after 72 hours. Discharge plan is [facility] on Monday for subacute rehab. 10/22: Patient is sitting up in bed in no apparent distress, he continues to have some pain in the right shoulder, he denies any chest pain, or any shortness breath, he to be tolerated treatment very well, patient will likely be discharged to [facility] tomorrow morning for physical therapy and rehabilitation. 10/23: Patient will be discharged to subacute rehab today in stable condition. DISCHARGE DIAGNOSES 1. POD #3 S/P Acute right distal humerus fracture status post ORIF of the right distal humerus fracture and open ulnar nerve neuroplasty at the elbow. 2. Possible UTI. 3. COPD without exacerbation. 4. Mild intermittent asthma. 5. Paroxysmal atrial fibrillation. 6. Benign prostatic hypertrophy. 6. Hereditary factor VIII deficiency. 7. Hyperlipidemia. 8. Hypertension. Discharge plan: Subacute rehab at [facility] than 35 minutes was utilized and coordinating patient's discharge. Impression and plan of care have been directed as dictated by the signing physician. Melissa Hairston nurse practitioner acting as scribe for signing physician. Patient Condition at Discharge: Stable Plan - Discharge Summary New Discharge Prescriptions: New Sennosides [Senokot] 8.6 mg PO DAILY PRN tab PRN Reason: Constipation Ipratropium-Albuterol Nebulize [Duoneb 0.5 mg-3 mg/3 ml Soln] 3 ml INHALATION RT-QID PRN each PRN Reason: Shortness Of Breath polyethylene glycoL 3350 [Miralax] 17 gm PO DAILY packet Continue Metoprolol Tartrate 25 mg PO BID Rivaroxaban [Xarelto] 20 mg PO HS Multivitamins, Thera [Multivitamin (formulary)] 1 tab PO QAM Tamsulosin HCl [Flomax] 0.4 mg PO HS Cyanocobalamin (Vitamin B-12) [Vitamin B-12] 2,000 mcg PO QAM Fluticasone/Umeclidin/Vilanter [Trelegy Ellipta 200-62.5-25] 1 puff INHALATION RT-DAILY Isosorbide Mononitrate ER [Imdur] 30 mg PO DAILY Ezetimibe [Zetia] 10 mg PO DAILY Folic Acid 0.4 mg PO QAM Albuterol Sulfate [Albuterol Sulfate Hfa] 1 puff PO RT-Q4H PRN PRN Reason: Shortness Of Breath Fluticasone Nasal Dover [Flonase Nasal Dover] 1 spray EA NOSTRIL BID PRN PRN Reason: Allergy Symptoms Atorvastatin [Lipitor] 40 mg PO HS Amiodarone [Cordarone] 100 mg PO HS Levocetirizine Dihydrochloride [Xyzal] 5 mg PO HS Discontinued Sulfamethox-Tmp 800-160Mg [Bactrim DS 800-160 mg] 1 tab PO Q12HR Discharge Medication List Cyanocobalamin (Vitamin B-12) [Vitamin B-12] 2,000 mcg PO QAM 05/29/18 [History] Metoprolol Tartrate 25 mg PO BID 05/29/18 [History] Multivitamins, Thera [Multivitamin (formulary)] 1 tab PO QAM 05/29/18 [History] Rivaroxaban [Xarelto] 20 mg PO HS 05/29/18 [History] Tamsulosin HCl [Flomax] 0.4 mg PO HS 05/29/18 [History] Albuterol Sulfate [Albuterol Sulfate Hfa] 1 puff PO RT-Q4H PRN 10/07/21 [History] Folic Acid 0.4 mg PO QAM 10/07/21 [History] Fluticasone Nasal [place] [Flonase Nasal [place]] 1 spray EA NOSTRIL BID PRN 06/02/22 [History] Fluticasone/Umeclidin/Vilanter [Trelegy Ellipta 200-62.5-25] 1 puff INHALATION RT-DAILY 09/07/23 [History] Amiodarone [Cordarone] 100 mg PO HS 10/16/23 [History] Atorvastatin [Lipitor] 40 mg PO HS 10/16/23 [History] Ezetimibe [Zetia] 10 mg PO DAILY 10/16/23 [History] Isosorbide Mononitrate ER [Imdur] 30 mg PO DAILY 10/16/23 [History] Levocetirizine Dihydrochloride [Xyzal] 5 mg PO HS 10/16/23 [History] Sennosides [Senokot] 8.6 mg PO DAILY PRN tab 10/17/23 [Rx] Ipratropium-Albuterol Nebulize [Duoneb 0.5 mg-3 mg/3 ml Soln] 3 ml INHALATION RT-QID PRN each 12/04/23 [Rx] polyethylene glycoL 3350 [Miralax] 17 gm PO DAILY packet 10/23/23 [Rx] Follow up Appointment(s)/Referral(s): Buzz Zimmerman MD [Primary Care Provider] - 1 Week (at [facility] ) Terry Alvarez DO [Doctor of Osteopathic Medicine] - 10 Days Discharge Disposition: TRANSFER TO SNF/ECF
--- NOTE | 2023-10-23 07:48 | P.PN ---
Subjective Progress Note Date: 10/23/23 Principal diagnosis: Right elbow fracture Patient seen and examined this morning. Patient repositioned in bed for comfort. He states his pain is controlled at this time. Patient denies any numbness or tingling to the right upper extremity and is able to wiggle fingers. Splint and bello wrap have been removed. Optifoam surgical dressing applied. Instructed patient to begin passive and active range of motion of the right elbow. He continues to be a little confused, please continue to reorientate patient with instructions and guided exercises. No acute concerns at this time. Objective - Vital Signs Vital signs: Vital Signs Temp 97.7 F 10/23/23 02:00 Pulse 78 10/23/23 03:29 Resp 16 10/23/23 02:00 BP 119/72 10/23/23 02:00 Pulse Ox 92 L 10/23/23 02:00 FiO2 21 10/20/23 11:09 Intake & Output 10/22/23 10/23/23 10/23/23 18:59 06:59 18:59 Intake Total 760 590 Output Total 300 Balance 760 290 Intake: Oral 760 590 Output: Urine 300 Other: Voiding Method Urinal Urinal Diaper Diaper # Voids 3 - Exam Inspection: Negative for any open fractures, edematous noted to right upper extremity. Surgical incision to the right elbow, Optifoam surgical dressing applied, elevated on pillow and sling present. Sensation: Sensation is equal, symmetric, bilaterally intact throughout the upper and lower extremities Palpation: Tenderness to palpation over the right elbow. Range of motion: Patient does have full range of motion bilateral upper and lower extremities on exam, limited range of motion to the right elbow due to splint and pain. Motor: 4/5 in all major motor groups in the bilateral upper and lower extremities Special tests: Negative Homans bilaterally. Negative Nilseh bilaterally. Negative clonus bilaterally. Neurovascular: Radial pulse intact, 2+ bilaterally. Cap refill under 3 seconds in digits upper extremities. - Labs CBC & Chem 7: 10/21/23 06:53 10/21/23 06:53 Assessment and Plan Assessment: Postop day 3: Right distal humerus ORIF Right upper extremity distal humerus fracture Plan: 1. Appreciate medical management 2. Pain management - tramadol; tylenol, Recommend ice for swelling control 3 times a day. 3. GI prophylaxis - senna 4. DVT prophylaxis - Xarelto 5. PT/OT - Weight-bear as tolerated bilateral lower extremities. Initiate early range of motion starting today with passive and active flexion and extension elbow exercises. Patient to continue nonweightbearing of right upper extremity, utilize sling. 6. Encourage incentive spirometer use 7. Appreciate consult, He may follow up in 10-14 days in the outpatient setting for his first post operative appointment. I reviewed and discussed this case with my attending Dr. Alvarez, whom has reviewed this chart and films and is in agreement with assessment and plan of care as outlined above. I have personally seen and examined the patient, performed the documentation and the assessment and plan as written. Number of minutes spent on the visit: 15m.
[2023-10-23] MEDS: polyethylene glycoL 3350 17 GM POWD.PACK PO SCH (10:03)
[2023-10-23] MEDS: CYANOCOBALAMIN 500 MCG TAB PO SCH (10:04)
[2023-10-23] MEDS: FOLIC ACID 1 MG TAB PO SCH (10:04)
[2023-10-23] MEDS: traMADol 50 MG TAB PO SCH ×3 (10:04→21:47)
[2023-10-23] MEDS: EZETIMIBE 10 MG TAB PO SCH (10:04)
[2023-10-23] MEDS: SENNOSIDES 8.6 MG TAB PO SCH (10:04)
[2023-10-23] MEDS: ISOSORBIDE MONONITRATE ER 30 MG TAB.ER.24H PO SCH (10:04)
[2023-10-23] MEDS: MULTIVITAMINS, THERA 1 EACH TAB PO SCH (10:04)
[2023-10-23] MEDS: METOPROLOL TARTRATE 25 MG TAB PO SCH ×2 (10:04→21:47)
[2023-10-23] MEDS: LACTATED RINGERS 1,000 ML IV SCH (11:45)
[2023-10-23] MEDS: TAMSULOSIN 0.4 MG CAP.ER.24H PO SCH (21:47)
[2023-10-23] MEDS: RIVAROXABAN 20 MG TAB PO SCH (21:47)
[2023-10-23] MEDS: ATORVASTATIN 40 MG TAB PO SCH (21:47)
[2023-10-23] MEDS: AMIODARONE 100 MG TAB PO SCH (21:47)
[2023-10-24] MEDS: IPRATROPIUM-ALBUTEROL 3 ML NEB INHALATION SCH ×2 (07:37→11:17)
[2023-10-24] MEDS: SYMBICORT 80-4.5 MCG INHALER INHALATION SCH (07:37)
--- NOTE | 2023-10-24 08:32 | US ---
EXAMINATION TYPE: US venous doppler duplex UE RT DATE OF EXAM: 10/24/2023 COMPARISON: NONE CLINICAL INDICATION: Male, 82 years old with history of EDEMA, POST orif, OFF ANTICOAG FOR SURGERY; S welling. No redness. Upper arm fx surgery 10/20/2023 SIDE PERFORMED: Right Right Arm: Negative for DVT IMPRESSION: Grayscale, color doppler, spectral doppler imaging performed of the deep veins of the upper extremiti es. There is normal flow, compressibility and vascular waveforms.
[2023-10-24] MEDS: METOPROLOL TARTRATE 25 MG TAB PO SCH (09:12)
[2023-10-24] MEDS: LACTATED RINGERS 1,000 ML IV SCH (09:12)
[2023-10-24] MEDS: MULTIVITAMINS, THERA 1 EACH TAB PO SCH (09:12)
[2023-10-24] MEDS: traMADol 50 MG TAB PO SCH (09:12)
[2023-10-24] MEDS: SENNOSIDES 8.6 MG TAB PO SCH (09:13)
[2023-10-24] MEDS: ISOSORBIDE MONONITRATE ER 30 MG TAB.ER.24H PO SCH (09:13)
[2023-10-24] MEDS: CYANOCOBALAMIN 500 MCG TAB PO SCH (09:13)
[2023-10-24] MEDS: EZETIMIBE 10 MG TAB PO SCH (09:13)
[2023-10-24] MEDS: FOLIC ACID 1 MG TAB PO SCH (09:13)
[2023-10-24] MEDS: polyethylene glycoL 3350 17 GM POWD.PACK PO SCH (09:14)
--- NOTE | 2023-10-24 09:28 | P.PN ---
Subjective Progress Note Date: 10/23/23 HISTORY OF PRESENT ILLNESS This is a 82-year-old male with past medical history of hypertension, paroxysmal atrial fibrillation on Xarelto, benign prostatic hypertrophy, hiatal hernia, hereditary factor VIII deficiency, hyperlipidemia, mild intermittent asthma, possible COPD. patient presented to the emergency center via ambulance due to fall the previous night in his bathroom. Patient injured his right elbow. No loss of consciousness. Patient ended up staying on the floor for the night, approximately 8 hours, until he was able to crawl and get to a phone call for assistance. He was found to have significant deformity of the right elbow and was brought into the emergency center. Blood pressure was elevated at the time at 162/97 otherwise vital signs were stable and he has been afebrile. The splint has been applied to the right arm and patient is seen today in the emergency center. Platelet count was found to be 146. Sodium 133 and potassium 4.6, creatinine was 1.48 and baseline is 0.9. CK 205. Urinalysis was bloody. Urine drug screen negative. Serum alcohol negative. Patient Efra for been on the [facility] floor and orthopedic consult in place. X-rays of the right wrist showed no acute abnormality. X-ray of the right elbow soft tissue swelling. No definite fracture or dislocation. Diffuse degenerative changes. Chest x-ray: Enlarged cardiomediastinal silhouette. Pelvis x-ray no acute abnormality. CT right elbow: Age indeterminate transverse supracondylar fracture of the distal humerus. Acute or subacute etiology cannot be excluded. CAT scan of the head reveals no acute fracture or traumatic subluxation. Prominent multilevel cervical spondylosis. 10/17: Patient is currently waiting for surgery on his elbow. He is off Xarelto and will be started on Lovenox at the three-day isidro. He has history of factor VIII deficiency. Patient remains with a sling and Johnny wrap on the right arm. Patient remains afebrile, heart rate in the 70s, blood pressure 101/64, pulse ox 92% on room air. Patient is currently waiting for surgery. 10/18: Patient surgery is delayed until Monday to wait for improvement of swelling. Patient will be started on Lovenox tonight based on weight due to his factor VIII deficiency. Plan for him to receive Lovenox on Monday and morning and then discontinue prior to surgery. Heart rate is in the 90s and 80s, blood pressure 113/74, pulse ox 95% on room air. Discharge plan is for subacute rehab at [facility] or [facility] following surgery. 10/19: Yesterday, patient was started on Lovenox for Dr. Cristiano aaron. This will be discontinued today after the morning dose in preparation for surgery tomorrow. Heart rate is been in the 70s and 80s, blood pressure 117/78, pulse ox 92% on room air. Blood work ordered yesterday afternoon reveals CBC is unremarkable with hemoglobin of 14.9. Sodium 134, potassium 4.4, BUN 26 creatinine 1.11. 10/20: Patient is status post surgical intervention. He is looking at rehab at [facility] and has been accepted awaiting insurance authorization. Patient has been afebrile, heart rate 74, blood pressure 106/66, pulse ox 95% on 2 L nasal cannula. Plan to discharge patient to rehab once arrangements are completed 10/21: Patient is post-op day #1 for ORIF of the right distal humerus fracture and open ulnar nerve neuroplasty at the elbow. Patient is awake and alert. Son was concerned that patient is confused but he seems to be mentally intact. He has been resumed back on Xarelto starting today. His heart rate has been in the 80s and 90s, blood pressure 138/79, afebrile, pulse ox 95% on room air. WBC 12.7, hemoglobin 13.6, platelet count 240. BUN 27 creatinine 1.07. Blood sugar 112. Electrolytes within normal limits. Patient states he ate his breakfast this morning, he denies any nausea or vomiting. No lightheadedness or dizziness the patient is not been out of bed yet. He does need assistance to get out of bed and is a risk for falls. Blood culture no growth after 72 hours. Discharge plan is [facility] on Monday for subacute rehab. 10/22: Patient is sitting up in bed in no apparent distress, he continues to have some pain in the right shoulder, he denies any chest pain, or any shortness breath, he to be tolerated treatment very well, patient will likely be discharged to [facility] tomorrow morning for physical therapy and rehabilitation. 10/23: No new concerns overnight. Patient's vital signs are been stable. He has been cleared for discharge by orthopedic surgery and plan for follow-up in the office in 10-14 days. Discharge plan is for subacute rehab at [facility]. Patient was prepared for discharge but on hold waiting for insurance authorization. REVIEW OF SYSTEMS Constitutional: No fever, no chills, no night sweats. No weight change. Reports weakness, Reports fatigue Reports lethargy. No daytime sleepiness. EENT: No headache. No blurred vision or double vision, no loss of vision. No loss of Hearing, no ringing in the ears, no dizziness. No nasal drainage or congestion. No epistaxis. No sore throat. Lungs: Reports shortness of breath, Reports cough, Reports sputum production. Reports wheezing. Cardiovascular: No chest pain, no lower extremity edema. No palpitations. No paroxysmal nocturnal dyspnea. No orthopnea. No lightheadedness or dizziness. No syncopal episodes. Abdominal: No abdominal pain. No nausea, vomiting. No diarrhea. No con stipation. No bloody or tarry stools. No loss of appetite. Genitourinary: No dysuria, increased frequency, urgency. No urinary retention. Musculoskeletal: No myalgias. Reports muscle weakness, no gait dysfunction, no frequent falls. No back pain. No neck pain. + Right elbow pain Integumentary: No wounds, no lesions. No rash or pruritus. No unusual bruising. No change in hair or nails. Neurologic: No aphasia. No facial droop. No change in mentation. No head injury. No headache. No paralysis. No paresthesia. Psychiatric: No depression. No anxiety. No mood swings. Endocrine: No abnormal blood sugars. No weight change. No excessive sweating or thirst. No cold intolerance. PHYSICAL EXAMINATION Gen: This is an obese 82-year-old male, resting in bed, appears to be fairly comfortable at rest. HEENT: Head is atraumatic, normocephalic. Pupils equal, round. Sclerae is anicteric. NECK: Supple. No JVD. No lymphadenopathy. No thyromegaly. LUNGS: Diminished breath sounds bilaterally. No intercostal retractions. HEART: First heart sound is depressed, second heart sound is normal, 2/6 systolic ejection murmur at the left sternal border. ABDOMEN: Soft. Bowel sounds are present. No masses. No tenderness. EXTREMITIES: No pedal edema. No calf tenderness. Cast and splint in place to the right arm. Dorsalis pedis palpable bilaterally. NEUROLOGICAL: Patient is awake, alert and oriented x3. Cranial nerves 2 through 12 are grossly intact. ASSESSMENT AND PLAN 1. POD #2 S/P Acute right distal humerus fracture status post ORIF of the right distal humerus fracture and open ulnar nerve neuroplasty at the elbow. Continue current pain management, continue to monitor the patient very closely, fall precautions, follow up with the patient very closely. 2. Possible UTI. Patient has been on ceftriaxone 1 g IV piggyback every 24 hours, we'll switch to oral Ceftin tomorrow morning. 3. COPD without exacerbation. Continue patient on albuterol every 4 hours as needed for shortness of breath, Symbicort 804 0.5 g 2 puffs twice daily. 4. Mild intermittent asthma. Continue Singulair 10 mg at bedtime, Claritin as needed, albuterol nebulizer treatments every 4 hours as needed. 5. Paroxysmal atrial fibrillation. Hold Xarelto 20 mg at bedtime, continue patient on amiodarone 100 mg at bedtime, Lopressor 25 mg twice daily. 6. Benign prostatic hypertrophy. Continue Flomax 0.4 mg at bedtime, monitor f or urinary retention. 6. Hereditary factor VIII deficiency. Resume Xarelto. 7. Hyperlipidemia. Continue Zetia 10 mg daily 8. Hypertension. Continue losartan 25 mg daily, Lopressor 25 mg twice daily. 9. GI prophylaxis. Protonix 40 mg po daily. 10. DVT prophylaxis. Continue patient on Xarelto. 11. We will follow with you. Impression and plan of care have been directed as dictated by the signing physician. Melissa Hairston nurse practitioner acting as scribe for signing physician. Objective - Vital Signs Vital signs: Vital Signs Temp 97.6 F 10/24/23 07:40 Pulse 80 10/24/23 07:50 Resp 20 10/24/23 07:40 BP 115/81 10/24/23 07:40 Pulse Ox 99 10/24/23 07:40 FiO2 21 10/20/23 11:09 Intake & Output 10/23/23 10/24/23 10/24/23 18:59 06:59 18:59 Intake Total 50 Balance 50 Intake: Intake, IV Titration 50 Amount Lactated Ringers 1,000 ml 50 @ 0 mls/hr IV .[facility] Rx#:[id number] Other: Voiding Method Urinal Urinal Diaper Diaper # Voids 0 - Labs CBC & Chem 7: 10/21/23 06:53 10/21/23 06:53
[2023-10-24 13:03] VITALS: BP 107/67; PULSE 83; RESP 16; TEMP 97.9
[2023-10-24 13:52] VITALS: BMI 34.7
== END 2023-10-24 13:51 ==
LOC: EC 04:22 → 4SSUR 08:27 → 5NMEDONC 14:24
PROVIDERS: ADMIT Internal Medicine; ATTEND Internal Medicine
DX: S42.411A Displaced simple supracondylar fracture without intercondylar fracture of right humerus, initial encounter for closed fracture (principal); W10.9XXA Fall (on) (from) unspecified stairs and steps, initial encounter; Y92.012 Bathroom of single-family (private) house as the place of occurrence of the external cause; E11.65 Type 2 diabetes mellitus with hyperglycemia; E11.22 Type 2 diabetes mellitus with diabetic chronic kidney disease; I12.9 Hypertensive chronic kidney disease with stage 1 through stage 4 chronic kidney disease, or unspecified chronic kidney disease; N18.9 Chronic kidney disease, unspecified; E87.20 Acidosis, unspecified; I48.0 Paroxysmal atrial fibrillation; E78.5 Hyperlipidemia, unspecified; N40.1 Benign prostatic hyperplasia with lower urinary tract symptoms; R33.8 Other retention of urine; J45.20 Mild intermittent asthma, uncomplicated; D66 Hereditary factor VIII deficiency; F32.A Depression, unspecified; Z86.718 Personal history of other venous thrombosis and embolism; Z87.891 Personal history of nicotine dependence; Z79.01 Long term (current) use of anticoagulants; Z79.51 Long term (current) use of inhaled steroids; Z79.899 Other long term (current) drug therapy
CPT/HCPCS: 96361; 96366 ×7; 96372 ×3; 96375; 96365; 99285; 36415; 94640 ×16; 94760 ×3; 93005; 97530 ×3; 97162; 97535 ×2; 97166; 64415; 86900; 86901; 80053 ×2; 80048; 82550; 83605; 84484; 85025 ×2; 85027; 85610 ×2; 85730; 86850; 81001; 87040; 80306; 72170; 73070; 73080; 73110; 71045; 93971; 72125; 70450; 73200; 24545; G0378 ×10; C1713 ×2; G0480; J2250; J0330; J2270; J1100; J2405; J0690; J2001; J1650 ×4; J0696 ×8; J2795; J2704; J2371; 80320

== ENCOUNTER 2024-01-12 16:08 | Inpatient (IN) | payer MEDICARE ==
[2024-01-12 16:49] LABS: Basophils % (A) 0 %; Eosinophils # (A) 0.1 k/uL (0-0.7); Eosinophils % (A) 1 %; HCT 42.5 % (39.0-53.0); HGB 13.4 gm/dL (13.0-17.5); Lymphocytes # (A) 0.6 k/uL (1.0-4.8); Lymphocytes % (A) 5 %; MCH 29.6 pg (25.0-35.0); MCHC 31.6 g/dL (31.0-37.0); MCV 93.6 fL (80.0-100.0); Mean Platelet Volume 7.4; Monocytes # (A) 0.5 k/uL (0-1.0); Monocytes % (A) 4 %; Neutrophils # (A) 11.2 k/uL (1.3-7.7); Neutrophils % (A) 89 %; Platelet Count 191 k/uL (150-450); RBC 4.54 m/uL (4.30-5.90); RDW 15.3 % (11.5-15.5); WBC 12.6 k/uL (3.8-10.6)
[2024-01-12 17:02] LABS: INR 1.3 (<1.2); Partial Thromboplastin Time 27.1 sec (22.0-30.0); Prothrombin Time 13.6 sec (10.0-12.5)
[2024-01-12 17:06] LABS: ALT 30 U/L (4-49); AST 122 U/L (17-59); African American GFR (CKD) 79 (>60 ml/min/1.73 sqM); Albumin 3.7 g/dL (3.5-5.0); Alkaline Phosphatase 126 U/L (38-126); Anion Gap 10 mmol/L; Blood Urea Nitrogen 20 mg/dL (9-20); Carbon Dioxide 22 mmol/L (22-30); Chloride 107 mmol/L (98-107); Glucose 112 mg/dL (74-99); Magnesium 1.8 mg/dL (1.6-2.3); Non-African American GFR(CKD) 68 (>60 ml/min/1.73 sqM); Potassium 4.5 mmol/L (3.5-5.1); Sodium 139 mmol/L (137-145); Total Bilirubin 1.6 mg/dL (0.2-1.3); Total Protein 6.2 g/dL (6.3-8.2)
--- NOTE | 2024-01-12 17:35 | ED ---
General Adult HPI - General Chief complaint: Weakness Stated complaint: Weakness Time Seen by Provider: 01/12/24 16:16 Source: patient, RN notes reviewed, old records reviewed Mode of arrival: EMS Limitations: no limitations - History of Present Illness Initial comments: Patient is an 83-year-old male who presents emergency department after being found down for 3 days at home. Was recently discharged from rehab as well as family sounds. States he was too weak to get back up. [place] weak like he might fall so he lowered himself to the ground and was unable to get up. Has not eaten or taken his medications over that period of time either. Was found today on the ground. No obvious injuries. Has a known right elbow fracture status post repair. Denies any obvious injuries. Unknown if he lost consciousness. Presents for further evaluation at this time. - Related Data Home Medications Medication Instructions Recorded Confirmed Metoprolol Tartrate 25 mg PO BID 05/29/18 01/12/24 Rivaroxaban [Xarelto] 20 mg PO HS 05/29/18 01/12/24 Tamsulosin HCl [Flomax] 0.4 mg PO HS 05/29/18 01/12/24 Albuterol Sulfate [Albuterol 1 puff PO RT-Q4H PRN 10/07/21 01/12/24 Sulfate Hfa] Fluticasone Nasal [place] [Flonase 1 spray EA NOSTRIL BID PRN 06/02/22 01/12/24 Nasal [place]] Fluticasone/Umeclidin/Vilanter 1 puff INHALATION RT-DAILY 09/07/23 01/12/24 [[place] Ellipta 200-62.5-25] Atorvastatin [Lipitor] 40 mg PO HS 10/16/23 01/12/24 Ezetimibe [Zetia] 10 mg PO DAILY 10/16/23 01/12/24 Isosorbide Mononitrate ER [Imdur] 30 mg PO DAILY 10/16/23 01/12/24 Levocetirizine Dihydrochloride 5 mg PO HS 10/16/23 01/12/24 [Xyzal] Amiodarone [Cordarone] 100 mg PO HS 01/12/24 01/12/24 Venlafaxine HCl [Effexor XR] 75 mg PO HS 01/12/24 01/12/24 Previous Rx's Medication Instructions Recorded Sennosides [Senokot] 8.6 mg PO DAILY PRN tab 10/17/23 Allergies Allergy/AdvReac Type Severity Reaction Status Date / Time rosuvastatin [From Crestor] AdvReac muscle Verified 01/12/24 16:44 soreness/cramps Review of Systems ROS Statement: Those systems with pertinent positive or pertinent negative responses have been documented in the HPI. Review of Systems: CONST: Denies fever EYES: Denies blurry vision ENT: Denies nasal congestion C/V: Denies Chest pain RESP: Denies shortness of breath GI: Denies abdominal pain : Denies dysuria SKIN: Denies rash. MSK: Denies joint pain. NEURO: Denies headache ROS Other: All systems not noted in ROS Statement are negative. Past Medical History Past Medical History: Atrial Fibrillation, Asthma, Deep Vein Thrombosis (DVT), Hearing Disorder / Deafness, Hyperlipidemia, Hypertension, Osteoarthritis (OA), Pneumonia, Renal Disease Additional Past Medical History / Comment(s): Hx pneumonia yrs ago, RSV/ hospitalized x 2 weeks in ICU, dvt R calf, hiatal hernia, hx kidney stones, [place] use of bilateral hearing aids. History of Any Multi-Drug Resistant Organisms: None Reported Past Surgical History: Joint Replacement Additional Past Surgical History / Comment(s): Bilateral knee replacements., total L hip arthroplasty, LIS and cardioversions Past Anesthesia/Blood Transfusion Reactions: No Reported Reaction Past Psychological History: Depression Smoking Status: Former smoker Past Alcohol Use History: Rare Past Drug Use History: None Reported - Past Family History Mother Family Medical History: No Reported History General Exam - General Exam Comments Initial Comments: General: Appears in no acute distress. HEAD: Normal with no signs of head trauma. EYES: PERRLA, EOMI, conjunctiva normal, no discharge. +3 mm and equal bilaterally ENT: Hearing grossly intact, normal oropharynx. RESPIRATORY: Clear breath sounds bilaterally. No wheezes, rales, or rhonchi. C/V: Regular rate and rhythm. S1 and S2 auscultated, no edema, peripheral pulses 2+ and intact throughout ABD: Abd is soft, nontender, nondistended EXT: Normal range of motion, no obvious deformity. No midline cervical, thoracic, lumbar spine tenderness to palpation. Pelvis is stable. Right elbow is swollen, status post surgery. SKIN: No rashes or lesions observed on exposed skin. NEURO: Alert and oriented x 4. Cranial nerves II-XII intact. No focal sensory or strength deficits. Endorses generalized weakness Limitations: no limitations Course Vital Signs 01/12/24 01/12/24 01/12/24 16:14 18:15 19:36 Temperature 98.3 F Pulse Rate 118 H 93 88 Respiratory 18 18 22 Rate Blood Pressure 133/104 133/86 120/73 O2 Sat by Pulse 96 95 97 Oximetry Medical Decision Making - Medical Decision Making Was pt. sent in by a medical professional or institution (, PA, SWISS TYPE SCREW MACHINE OPERATOR, urgent care, hospital, or prison...) When possible be specific @ -No Did you speak to anyone other than the patient for history (EMS, parent, family, police, friend...)? What history was obtained from this source @ -No Did you review nursing and triage notes (agree or disagree)? Why? @ -I reviewed and agree with nursing and triage notes Were old charts reviewed (outside hosp., previous admission, EMS record, old EKG, old radiological studies, urgent care reports/EKG's, prison records)? Report findings @ -Old charts reviewed Differential Diagnosis (chest pain, altered mental status, abdominal pain women, abdominal pain men, vaginal bleeding, weakness, fever, dyspnea, syncope, headache, dizziness, GI bleed, back pain, seizure, CVA, palpatations, mental health, musculoskeletal)? @ -Differential Weakness: Hypoglycemia, shock, sepsis, hyponatremia, anemia, infection, OH, ETOH, adverse medicine reaction, overdose, stroke, this is not meant to be an all-inclusive list. EKG interpreted by me (3pts min.). @ -As above X-rays interpreted by me (1pt min.). @ -Elbow x-ray shows status post fixation. Chest x-ray reveals no obvious acute cardiopulmonary process, COPD changes. CT interpreted by me (1pt min.). @ -CT brain reveals no evidence of acute intracranial process or injury. U/S interpreted by me (1pt. min.). @ -None done What testing was considered but not performed or refused? (CT, X-rays, U/S, labs)? Why? @ -None What meds were considered but not given or refused? Why? @ -None Did you discuss the management of the patient with other professionals (professionals i.e. , PA, SWISS TYPE SCREW MACHINE OPERATOR, lab, RT, psych nurse, foster care social worker, noc analyst, teacher, commercial loan officer, protective services case worker)? Give summary @ -Discussed with admitting team, BELLE Valencia of [facility] who is covering for Dr. Zimmerman. He accepted the admission. Was smoking cessation discussed for >3mins.? @ -No Was critical care preformed (if so, how long)? @ -No Were there social determinants of health that impacted care today? How? (Homelessness, low income, unemployed, alcoholism, drug addiction, transportation, low edu. Level, literacy, decrease access to med. care, care home, rehab)? @ -No Was there de-escalation of care discussed even if they declined (Discuss DNR or withdrawal of care, Hospice)? DNR status @ -No What co-morbidities impacted this encounter? (DM, HTN, Smoking, COPD, CAD, Cancer, CVA, ARF, Chemo, Hep., AIDS, mental health diagnosis, sleep apnea, morbid obesity)? @ -History of atrial fibrillation Was patient admitted / discharged? Hospital course, mention meds given and route, prescriptions, significant lab abnormalities, going to OR and other pertinent info. @ -Based on the patient's presentation and physical exam, presents with A-fib with RVR as well as concern for possible rhabdo as he has been on the ground for multiple days. Likely secondary to chronic debility. We will obtain generalized workup. CT imaging the brain will be obtained as he is on blood thinners. Patient was in agreement this plan. Vital signs remarkable for A-fib with RVR but he has not been compliant with medications since he has been on the ground. He will be given a dose of his amiodarone early as well as metoprolol. Patient was in agreement this plan. Patient's heart rate improved. Vital signs remained within acceptable limits. EKG shows no signs of acute ischemia. Laboratory studies remarkable for elevated lactic acid of 2.4, elevated creatinine kinase of 5400, as well as an elevated troponin of 0.083 likely secondary to underlying presentation of debility, being on the ground for the last 3 days, weakness, dehydration. I updated the patient. CT imaging the brain as well as imaging unremarkable. I would like to admit her to the hospital at this time. We will continue IV fluids as well as normal home pain meds. Troponin will be trended. Cardiology will be consulted. They were in agreement this plan. I spoke with the admitting team, BELLE Valencia of [facility] who accepted the admission. Undiagnosed new problem with uncertain prognosis? @ -No Drug Therapy requiring intensive monitoring for toxicity (Heparin, Nitro, Insulin, Cardizem)? @ -No Were any procedures done? @ -No Diagnosis/symptom? @ -Rhabdomyolysis, dehydration, elevated troponin, debility Acute, or Chronic, or Acute on Chronic? @ -Acute Uncomplicated (without systemic symptoms) or Complicated (systemic symptoms)? @ -Complicated Side effects of treatment? @ -No Exacerbation, Progression, or Severe Exacerbation? @ -No Poses a threat to life or bodily function? How? (Chest pain, [place], OH, pneumonia, PE, COPD, DKA, ARF, appy, cholecystitis, CVA, Diverticulitis, Homicidal, Suicidal, threat to staff... and all critical care pts) @ -Yes Diagnosis/symptom? @ -A-fib Acute, or Chronic, or Acute on Chronic? @ -Chronic Uncomplicated (without systemic symptoms) or Complicated (systemic symptoms)? @ -Uncomplicated Side effects of treatment? @ -None Exacerbation, Progression, or Severe Exacerbation] @ -No Poses a threat to life or bodily function? @ -Unlikely - Lab Data Result diagrams: 01/12/24 16:39 01/12/24 16:39 Lab Results 01/12/24 01/12/24 01/12/24 Range/Units 16:39 16:39 16:39 WBC 12.6 H (3.8-10.6) k/uL RBC 4.54 (4.30-5.90) m/uL Hgb 13.4 (13.0-17.5) gm/dL Hct 42.5 (39.0-53.0) % MCV 93.6 (80.0-100.0) fL MCH 29.6 (25.0-35.0) pg MCHC 31.6 (31.0-37.0) g/dL RDW 15.3 (11.5-15.5) % Plt Count 191 (150-450) k/uL MPV 7.4 Neutrophils % 89 % Lymphocytes % 5 % Monocytes % 4 % Eosinophils % 1 % Basophils % 0 % Neutrophils # 11.2 H (1.3-7.7) k/uL Lymphocytes # 0.6 L (1.0-4.8) k/uL Monocytes # 0.5 (0-1.0) k/uL Eosinophils # 0.1 (0-0.7) k/uL Basophils # 0.0 (0-0.2) k/uL PT 13.6 H (10.0-12.5) sec INR 1.3 H (<1.2) APTT 27.1 (22.0-30.0) sec Sodium 139 (137-145) mmol/L Potassium 4.5 (3.5-5.1) mmol/L Chloride 107 (98-107) mmol/L Carbon Dioxide 22 (22-30) mmol/L Anion Gap 10 mmol/L BUN 20 (9-20) mg/dL Creatinine 1.03 (0.66-1.25) mg/dL Est GFR (CKD-EPI)AfAm 79 (>60 ml/min/1.73 sqM) Est GFR (CKD-EPI)NonAf 68 (>60 ml/min/1.73 sqM) Glucose 112 H (74-99) mg/dL Lactic Ac Sepsis Rflx Plasma Lactic Acid Efren (0.7-2.0) mmol/L Calcium 9.0 (8.4-10.2) mg/dL Magnesium 1.8 (1.6-2.3) mg/dL Total Bilirubin 1.6 H (0.2-1.3) mg/dL AST 122 H (17-59) U/L ALT 30 (4-49) U/L Alkaline Phosphatase 126 (38-126) U/L Creatine Kinase 5444 H* (55-170) U/L Troponin I (0.000-0.034) ng/mL Total Protein 6.2 L (6.3-8.2) g/dL Albumin 3.7 (3.5-5.0) g/dL Influenza Type A (PCR) (Not Detectd) Influenza Type B (PCR) (Not Detectd) RSV (PCR) (Not Detectd) SARS-CoV-2 (PCR) (Not Detectd) 01/12/24 01/12/24 01/12/24 Range/Units 16:39 16:39 16:39 WBC (3.8-10.6) k/uL RBC (4.30-5.90) m/uL Hgb (13.0-17.5) gm/dL Hct (39.0-53.0) % MCV (80.0-100.0) fL MCH (25.0-35.0) pg MCHC (31.0-37.0) g/dL RDW (11.5-15.5) % Plt Count (150-450) k/uL MPV Neutrophils % % Lymphocytes % % Monocytes % % Eosinophils % % Basophils % % Neutrophils # (1.3-7.7) k/uL Lymphocytes # (1.0-4.8) k/uL Monocytes # (0-1.0) k/uL Eosinophils # (0-0.7) k/uL Basophils # (0-0.2) k/uL PT (10.0-12.5) sec INR (<1.2) APTT (22.0-30.0) sec Sodium (137-145) mmol/L Potassium (3.5-5.1) mmol/L Chloride (98-107) mmol/L Carbon Dioxide (22-30) mmol/L Anion Gap mmol/L BUN (9-20) mg/dL Creatinine (0.66-1.25) mg/dL Est GFR (CKD-EPI)AfAm (>60 ml/min/1.73 sqM) Est GFR (CKD-EPI)NonAf (>60 ml/min/1.73 sqM) Glucose (74-99) mg/dL Lactic Ac Sepsis Rflx Plasma Lactic Acid Efren 2.4 H* (0.7-2.0) mmol/L Calcium (8.4-10.2) mg/dL Magnesium (1.6-2.3) mg/dL Total Bilirubin (0.2-1.3) mg/dL AST (17-59) U/L ALT (4-49) U/L Alkaline Phosphatase (38-126) U/L Creatine Kinase (55-170) U/L Troponin I 0.083 H* (0.000-0.034) ng/mL Total Protein (6.3-8.2) g/dL Albumin (3.5-5.0) g/dL Influenza Type A (PCR) Not Detected (Not Detectd) Influenza Type B (PCR) Not Detected (Not Detectd) RSV (PCR) Not Detected (Not Detectd) SARS-CoV-2 (PCR) Not Detected (Not Detectd) 01/12/24 Range/Units 17:04 WBC (3.8-10.6) k/uL RBC (4.30-5.90) m/uL Hgb (13.0-17.5) gm/dL Hct (39.0-53.0) % MCV (80.0-100.0) fL MCH (25.0-35.0) pg MCHC (31.0-37.0) g/dL RDW (11.5-15.5) % Plt Count (150-450) k/uL MPV Neutrophils % % Lymphocytes % % Monocytes % % Eosinophils % % Basophils % % Neutrophils # (1.3-7.7) k/uL Lymphocytes # (1.0-4.8) k/uL Monocytes # (0-1.0) k/uL Eosinophils # (0-0.7) k/uL Basophils # (0-0.2) k/uL PT (10.0-12.5) sec INR (<1.2) APTT (22.0-30.0) sec Sodium (137-145) mmol/L Potassium (3.5-5.1) mmol/L Chloride (98-107) mmol/L Carbon Dioxide (22-30) mmol/L Anion Gap mmol/L BUN (9-20) mg/dL Creatinine (0.66-1.25) mg/dL Est GFR (CKD-EPI)AfAm (>60 ml/min/1.73 sqM) Est GFR (CKD-EPI)NonAf (>60 ml/min/1.73 sqM) Glucose (74-99) mg/dL Lactic Ac Sepsis Rflx Y Plasma Lactic Acid Efren (0.7-2.0) mmol/L Calcium (8.4-10.2) mg/dL Magnesium (1.6-2.3) mg/dL Total Bilirubin (0.2-1.3) mg/dL AST (17-59) U/L ALT (4-49) U/L Alkaline Phosphatase (38-126) U/L Creatine Kinase (55-170) U/L Troponin I (0.000-0.034) ng/mL Total Protein (6.3-8.2) g/dL Albumin (3.5-5.0) g/dL Influenza Type A (PCR) (Not Detectd) Influenza Type B (PCR) (Not Detectd) RSV (PCR) (Not Detectd) SARS-CoV-2 (PCR) (Not Detectd) - EKG Data -: EKG Interpreted by Me EKG Comments: 12-lead Electrocardiogram Interpretation Note EKG was reviewed and interpreted by myself. 12-lead ECG performed at 1611 is interpreted by me as revealing A-fib with RVR at a rate of 120 beats per minute. Left axis deviation. QRS durations 128 ms, QTc is 433 ms.. There were no ST or T wave abnormalities to suggest myocardial ischemia or injury. R wave progression across the precordium was delayed. By my interpretation this EKG is non-diagnostic for acute ischemia. Disposition Clinical Impression: Rhabdomyolysis, Dehydration, A-fib, Debility Disposition: ADMITTED IP TO THIS [facility] Condition: Stable Referrals: Buzz Zimmerman MD [Primary Care Provider] - 1-2 days Time of Disposition: 19:35
[2024-01-12 17:54] LABS: Creatine Kinase 5444 U/L (55-170)
[2024-01-12] MEDS: SODIUM CHLORIDE 0.9% 1,000 ML IV STA ×2 (18:18→19:34)
[2024-01-12] MEDS: METOPROLOL TARTRATE 25 MG TAB PO STA (18:18)
[2024-01-12] MEDS: AMIODARONE 100 MG TAB PO STA (18:19)
--- NOTE | 2024-01-12 18:36 | CT ---
EXAMINATION TYPE: CT brain wo con CT DLP: 1193.4 mGycm, Automated exposure control for dose reduction was used. DATE OF EXAM: 01/12/2024 6:00 PM COMPARISON: 10/16/2023. CLINICAL INDICATION:Male, 83 years old with history of weakness, Weakness. TECHNIQUE: Brain: Axial CT images of the brain were obtained with coronal and sagittal reformats created and rev iewed. Contrast used: None. Oral contrast used: None. FINDINGS: Brain: Extra-axial spaces: No abnormal extra-axial fluid collections. Ventricular system: Dilatation in proportion to cerebral atrophy. Cerebral parenchyma: Cerebral atrophy. No acute intraparenchymal hemorrhage or mass effect. The mcguire -white junction is well differentiated. Scattered hypoattenuating areas are seen within the white mat ter. Cerebellum: Unremarkable. Mass effect: No evidence of midline shift. Intracranial vasculature: Atherosclerotic calcifications of the intracranial vessels. Soft tissues: Normal. Calvarium/osseous structures: No depressed skull fracture. Paranasal sinuses and mastoid air cells: Mild scattered paranasal sinus disease. Visualized orbits: Orbital contents are intact. IMPRESSION: 1. No acute intracranial process. 2. Nonspecific white matter changes, likely secondary to chronic small vessel ischemic disease.
--- NOTE | 2024-01-12 19:20 | XR ---
EXAMINATION TYPE: XR elbow limited RT DATE OF EXAM: 01/12/2024 6:49 PM CLINICAL INDICATION:Male, 83 years old with history of pain; [facility] COMPARISON: 10/16/2023. TECHNIQUE: XR elbow limited RT; elbow was examined in AP, lateral, and oblique projections. FINDINGS/IMPRESSION: Post fixation changes. Hardware appears intact. There is incomplete fusion of the fracture site to th e distal humerus. No new fractures. Soft tissue swelling around the distal humerus.
--- NOTE | 2024-01-12 19:24 | XR ---
EXAMINATION TYPE: XR chest 2V DATE OF EXAM: 01/12/2024 6:48 PM CLINICAL INDICATION:Male, 83 years old with history of Weakness; [facility] COMPARISON: Chest radiographs from 10/16/2023. TECHNIQUE: XR chest 2V Frontal and lateral views of the chest. FINDINGS: Lungs/Pleura: There is no evidence of pleural effusion, focal consolidation, or pneumothorax. Pulmonary vascularity: Pulmonary vascular congestion. Heart/mediastinum: Cardiomediastinal silhouette is enlarged and stable. Musculoskeletal: No acute osseous pathology. IMPRESSION: 1. No acute cardiopulmonary disease process. 2. COPD changes.
[2024-01-12] MEDS ORDERED: FLUTICASONE 50MCG/SPRAY NASAL 16GM EA NOSTRIL PRN (19:44)
[2024-01-12] MEDS ORDERED: SENNOSIDES 8.6 MG TAB PO PRN (19:44)
[2024-01-12] MEDS ORDERED: NALOXONE 0.4 MG/ML 1 ML VIAL IV PRN (19:45)
[2024-01-12] MEDS: SODIUM CHLORIDE 0.9% 1,000 ML IV SCH (20:02)
[2024-01-12 20:03] LABS: Appearance,Urine Cloudy (Clear); Bacteria,Urine Many /hpf; Bilirubin,Urine Negative (Negative); Blood,Urine Small (Negative); Color,Urine Yellow; Glucose,Urine (UA) Negative (Negative); Hyaline Casts,Urine 6 /lpf (0-2); Ketones,Urine 1+ (Negative); Leukocyte Esterase,Urine Large (Negative); Mucus,Urine Many /hpf; Nitrite,Urine Negative (Negative); PH, Urine 5.5 (5.0-8.0); Protein,Urine 1+ (Negative); RBC,Urine 17 /hpf (0-5); Specific Gravity,Urine 1.022 (1.001-1.035); Urobilinogen,Urine <2.0 mg/dL (<2.0); WBC,Urine 148 /hpf (0-5)
[2024-01-12] MEDS: ALBUTEROL NEBULIZED 2.5 MG/3 ML INHALATION PRN (20:12)
[2024-01-12] MEDS: IPRATROPIUM-ALBUTEROL 3 ML NEB INHALATION STA ×2 (21:47→21:48)
[2024-01-12] MEDS: methylPREDNISolone SOD SUCCI 125 MG/2 ML VIAL IV STA (21:56)
[2024-01-12] MEDS: ATORVASTATIN 40 MG TAB PO SCH (22:02)
[2024-01-12] MEDS: LORATADINE 10 MG TAB PO SCH (22:03)
[2024-01-12] MEDS: TAMSULOSIN 0.4 MG CAP.ER.24H PO SCH (22:04)
[2024-01-12] MEDS: VENLAFAXINE HCL ER 75 MG CAP PO SCH (22:04)
[2024-01-12] MEDS: RIVAROXABAN 20 MG TAB PO SCH (22:04)
[2024-01-12] MEDS: METOPROLOL TARTRATE 25 MG TAB PO SCH (22:14)
[2024-01-12] MEDS: IPRATROPIUM-ALBUTEROL 3 ML NEB INHALATION SCH (23:47)
[2024-01-13 01:50] LABS: Glucose,Whole Blood 117 mg/dL (70-110)
[2024-01-13 04:14] LABS: Glucose,Whole Blood 199 mg/dL (70-110)
[2024-01-13] MEDS ORDERED: IPRATROPIUM 0.5 MG/2.5 ML NEBU INHALATION SCH (08:00)
[2024-01-13] MEDS: ISOSORBIDE MONONITRATE ER 30 MG TAB.ER.24H PO SCH (08:10)
[2024-01-13] MEDS: EZETIMIBE 10 MG TAB PO SCH (08:10)
[2024-01-13] MEDS: methylPREDNISolone SOD SUCCI 40 MG/ML 1 ML VIAL IV SCH (08:10)
[2024-01-13 08:20] LABS: Basophils % (A) 0 %; Eosinophils % (A) 0 %; HCT 42.4 % (39.0-53.0); HGB 13.4 gm/dL (13.0-17.5); Hypochromasia Slight; Lymphocytes # (A) 0.5 k/uL (1.0-4.8); Lymphocytes % (A) 4 %; MCH 30.2 pg (25.0-35.0); MCHC 31.7 g/dL (31.0-37.0); MCV 95.2 fL (80.0-100.0); Mean Platelet Volume 9.5; Monocytes # (A) 0.3 k/uL (0-1.0); Monocytes % (A) 3 %; Neutrophils # (A) 11.6 k/uL (1.3-7.7); Neutrophils % (A) 93 %; Platelet Count 163 k/uL (150-450); RBC 4.45 m/uL (4.30-5.90); RDW 15.5 % (11.5-15.5); WBC 12.5 k/uL (3.8-10.6)
[2024-01-13] MEDS: SYMBICORT 80-4.5 MCG INHALER INHALATION SCH (08:27)
[2024-01-13 08:39] LABS: African American GFR (CKD) 82 (>60 ml/min/1.73 sqM); Anion Gap 9 mmol/L; Blood Urea Nitrogen 22 mg/dL (9-20); Calcium 8.7 mg/dL (8.4-10.2); Carbon Dioxide 22 mmol/L (22-30); Chloride 110 mmol/L (98-107); Glucose 186 mg/dL (74-99); Non-African American GFR(CKD) 71 (>60 ml/min/1.73 sqM); Potassium 4.3 mmol/L (3.5-5.1); Sodium 141 mmol/L (137-145)
[2024-01-13 08:47] LABS: Creatine Kinase 2723 U/L (55-170)
--- NOTE | 2024-01-13 11:40 | P.HPIM ---
History of Present Illness This is a pleasant 83 years old male with past medical history of multiple medical problems including atrial fibrillation and DVT on a blood thinner, Hearing Disorder / Deafness, Hyperlipidemia, Hypertension, Osteoarthritis (OA), Patient presents because he was on the floor for 2 days. Patient states that his on April 26, 2023, since then he has difficulty taking care of himself. The last few days prior to hospitalization he had tremor in his hands and has been shaking with difficulty walking because of balance problem, because of his tremor he could not call of friend, he ran out of food and drinks for 2 days, eventually he fell on the floor and he had difficult time moving, it took him 2 days to crawl to his cell phone as he has large house about 4000 square feet as per patient, he could manage to call his son who brought him to the emergency room. Currently he is sitting up in bed, fully awake and oriented, looks relaxed. He has been complaining from some tachypnea with coughing and occasional phlegm but no overt chest pain, no abdominal pain Patient has been complaining from hesitancy in urination he noticed some blood in his urine and little dysuria. Henry catheter was placed in the emergency room. Patient denies headache dizziness weakness or numbness specific for lateralization. Patient however has generalized weakness. Patient denies depression or suicidal ideation He denies smoking alcohol or illicit drugs. On admission he has mild leukocytosis of 12.5, he is afebrile and list of vitals look stable now, his was mildly tachypneic but currently breathing at 16 breaths/min, Heart rate is around 110. Creatinine kinase was elevated 5444, coming down to 2723 today. Urine analysis suspicious for infection. AST slightly up 11/27/2021, bilirubin 1.6 but ALT is normal at 30. Troponin is mildly elevated 0.08, 0.07, 0.05 and 0.05. Mic[place] Influenza A and type B, RSV, SARS (coronavirus) are and detected Chest x-ray: COPD with no acute process Elbow x-ray showing no new fracture but incomplete fusion of fracture site to the distal humerus CT of brain negative for acute process EKG showing A-fib with RVR with a rate of 120. Patient started on IV Solu-Medrol 40 mg twice daily, normal saline 100 mL/h and resumed his Xarelto 20 mg as well as amiodarone and metoprolol. Review of Systems Review of systems CONSTITUTIONAL: No fever, no malaise HEENT: No recent visual problems , Denied any sore throat. CARDIOVASCULAR: No orthopnea, PND, no palpitations, no syncope. PULMONARY: No chest wall tenderness, no hemoptysis. GASTROINTESTINAL: No diarrhea, no nausea, no vomiting, no abdominal pain. Normoactive bowel sounds. NEUROLOGICAL: No headaches, no weakness, no numbness. HEMATOLOGICAL: Denies any bleeding or petechiae. -GENITOURINARY: As above MUSCULOSKELETAL/RHEUMATOLOGICAL: Denies any joint pain, swelling, or any muscle pain. ENDOCRINE: Denies any polyuria or polydipsia. Past Medical History Past Medical History: Atrial Fibrillation, Asthma, Deep Vein Thrombosis (DVT), Hearing Disorder / Deafness, Hyperlipidemia, Hypertension, Osteoarthritis (OA), Pneumonia, Renal Disease Additional Past Medical History / Comment(s): Hx pneumonia yrs ago, RSV/ hospitalized x 2 weeks in ICU, dvt R calf, hiatal hernia, hx kidney stones, [place] use of bilateral hearing aids. History of Any Multi-Drug Resistant Organisms: None Reported Past Surgical History: Joint Replacement Additional Past Surgical History / Comment(s): Bilateral knee replacements., total L hip arthroplasty, LIS and cardioversions Past Anesthesia/Blood Transfusion Reactions: No Reported Reaction Smoking Status: Never smoker - Past Family History Mother Family Medical History: No Reported History Medications and Allergies Home Medications Medication Instructions Recorded Confirmed Type Metoprolol Tartrate 25 mg PO BID 05/29/18 01/12/24 History Rivaroxaban [Xarelto] 20 mg PO HS 05/29/18 01/12/24 History Tamsulosin HCl [Flomax] 0.4 mg PO HS 05/29/18 01/12/24 History Albuterol Sulfate [Albuterol 1 puff PO RT-Q4H PRN 10/07/21 01/12/24 History Sulfate Hfa] Fluticasone Nasal [place] [Flonase 1 spray EA NOSTRIL BID PRN 06/02/22 01/12/24 History Nasal [place]] Fluticasone/Umeclidin/Vilanter 1 puff INHALATION RT-DAILY 09/07/23 01/12/24 History [Trelegy Ellipta 200-62.5-25] Atorvastatin [Lipitor] 40 mg PO HS 10/16/23 01/12/24 History Ezetimibe [Zetia] 10 mg PO DAILY 10/16/23 01/12/24 History Isosorbide Mononitrate ER [Imdur] 30 mg PO DAILY 10/16/23 01/12/24 History Levocetirizine Dihydrochloride 5 mg PO HS 10/16/23 01/12/24 History [Xyzal] Sennosides [Senokot] 8.6 mg PO DAILY PRN tab 10/17/23 01/12/24 Rx Amiodarone [Cordarone] 100 mg PO HS 01/12/24 01/12/24 History Venlafaxine HCl [Effexor XR] 75 mg PO HS 01/12/24 01/12/24 History Allergies Allergy/AdvReac Type Severity Reaction Status Date / Time rosuvastatin [From Crestor] AdvReac muscle Verified 01/12/24 16:44 soreness/cramps Physical Exam Vitals: Vital Signs Temp Pulse Pulse Resp BP BP Pulse Ox 01/13/24 08:35 100 01/13/24 08:28 101 H 98 01/13/24 04:32 110 H 20 01/13/24 04:00 98.0 F 110 H 20 122/80 95 01/13/24 03:57 104 H 01/13/24 01:27 96 22 113/81 94 L 01/12/24 23:39 105 H 24 136/74 92 L 01/12/24 22:00 104 H 26 H 123/78 95 01/12/24 21:57 104 H 01/12/24 21:49 101 H 01/12/24 21:38 94 28 H 96 01/12/24 20:21 84 01/12/24 20:14 84 01/12/24 20:00 96 28 H 108/80 97 01/12/24 19:36 88 22 120/73 97 01/12/24 18:15 93 18 133/86 95 01/12/24 16:14 98.3 F 118 H 18 133/104 96 Intake and Output 01/12/24 01/13/24 01/13/24 22:59 06:59 14:59 Output Total 500 Balance -500 Output: Urine 500 Other: Voiding Method Incontinent Weight 99.79 kg 99.79 kg GENERAL: The patient is alert and oriented x3, not in any acute distress. Well developed, well nourished. HEENT: Pupils are round and equally reacting to light. EOMI. No scleral icterus. No conjunctival pallor. Normocephalic, atraumatic. No pharyngeal erythema. No thyromegaly. CARDIOVASCULAR: S1 and S2 present. No murmurs, rubs, or gallops. PULMONARY: Chest is clear to auscultation, no wheezing , no crackles. ABDOMEN: Soft, nontender, nondistended, normoactive bowel sounds. No palpable organomegaly. MUSCULOSKELETAL: No joint swelling or deformity. EXTREMITIES: No cyanosis, clubbing, or pedal edema. NEUROLOGICAL: Gross neurological examination did not reveal any focal deficits. SKIN: No rashes. no petechiae. Results CBC & Chem 7: 01/13/24 08:00 01/13/24 08:00 Labs: Abnormal Lab Results - Last 24 Hours (Table) 01/12/24 01/12/24 01/12/24 Range/Units 16:39 16:39 16:39 WBC 12.6 H (3.8-10.6) k/uL Neutrophils # 11.2 H (1.3-7.7) k/uL Lymphocytes # 0.6 L (1.0-4.8) k/uL PT 13.6 H (10.0-12.5) sec INR 1.3 H (<1.2) Chloride (98-107) mmol/L BUN (9-20) mg/dL Glucose 112 H (74-99) mg/dL POC Glucose (mg/dL) (70-110) mg/dL Plasma Lactic Acid Efren (0.7-2.0) mmol/L Total Bilirubin 1.6 H (0.2-1.3) mg/dL AST 122 H (17-59) U/L Creatine Kinase 5444 H* (55-170) U/L Troponin I (0.000-0.034) ng/mL Total Protein 6.2 L (6.3-8.2) g/dL Urine Protein (Negative) Urine Ketones (Negative) Urine Blood (Negative) Ur Leukocyte Esterase (Negative) Urine RBC (0-5) /hpf Urine WBC (0-5) /hpf Urine Bacteria (None) /hpf Hyaline Casts (0-2) /lpf Urine Mucus (None) /hpf 01/12/24 01/12/24 01/12/24 Range/Units 16:39 16:39 19:35 WBC (3.8-10.6) k/uL Neutrophils # (1.3-7.7) k/uL Lymphocytes # (1.0-4.8) k/uL PT (10.0-12.5) sec INR (<1.2) Chloride (98-107) mmol/L BUN (9-20) mg/dL Glucose (74-99) mg/dL POC Glucose (mg/dL) (70-110) mg/dL Plasma Lactic Acid Efren 2.4 H* (0.7-2.0) mmol/L Total Bilirubin (0.2-1.3) mg/dL AST (17-59) U/L Creatine Kinase (55-170) U/L Troponin I 0.083 H* (0.000-0.034) ng/mL Total Protein (6.3-8.2) g/dL Urine Protein 1+ H (Negative) Urine Ketones 1+ H (Negative) Urine Blood Small H (Negative) Ur Leukocyte Esterase Large H (Negative) Urine RBC 17 H (0-5) /hpf Urine WBC 148 H (0-5) /hpf Urine Bacteria Many H (None) /hpf Hyaline Casts 6 H (0-2) /lpf Urine Mucus Many H (None) /hpf 01/12/24 01/12/24 01/13/24 Range/Units 20:56 23:45 01:48 WBC (3.8-10.6) k/uL Neutrophils # (1.3-7.7) k/uL Lymphocytes # (1.0-4.8) k/uL PT (10.0-12.5) sec INR (<1.2) Chloride (98-107) mmol/L BUN (9-20) mg/dL Glucose (74-99) mg/dL POC Glucose (mg/dL) 117 H (70-110) mg/dL Plasma Lactic Acid Efren (0.7-2.0) mmol/L Total Bilirubin (0.2-1.3) mg/dL AST (17-59) U/L Creatine Kinase (55-170) U/L Troponin I 0.076 H* 0.059 H* (0.000-0.034) ng/mL Total Protein (6.3-8.2) g/dL Urine Protein (Negative) Urine Ketones (Negative) Urine Blood (Negative) Ur Leukocyte Esterase (Negative) Urine RBC (0-5) /hpf Urine WBC (0-5) /hpf Urine Bacteria (None) /hpf Hyaline Casts (0-2) /lpf Urine Mucus (None) /hpf 01/13/24 01/13/24 01/13/24 Range/Units 04:12 06:42 08:00 WBC 12.5 H (3.8-10.6) k/uL Neutrophils # 11.6 H (1.3-7.7) k/uL Lymphocytes # 0.5 L (1.0-4.8) k/uL PT (10.0-12.5) sec INR (<1.2) Chloride (98-107) mmol/L BUN (9-20) mg/dL Glucose (74-99) mg/dL POC Glucose (mg/dL) 199 H (70-110) mg/dL Plasma Lactic Acid Efren (0.7-2.0) mmol/L Total Bilirubin (0.2-1.3) mg/dL AST (17-59) U/L Creatine Kinase (55-170) U/L Troponin I 0.053 H* (0.000-0.034) ng/mL Total Protein (6.3-8.2) g/dL Urine Protein (Negative) Urine Ketones (Negative) Urine Blood (Negative) Ur Leukocyte Esterase (Negative) Urine RBC (0-5) /hpf Urine WBC (0-5) /hpf Urine Bacteria (None) /hpf Hyaline Casts (0-2) /lpf Urine Mucus (None) /hpf 01/13/24 Range/Units 08:00 WBC (3.8-10.6) k/uL Neutrophils # (1.3-7.7) k/uL Lymphocytes # (1.0-4.8) k/uL PT (10.0-12.5) sec INR (<1.2) Chloride 110 H (98-107) mmol/L BUN 22 H (9-20) mg/dL Glucose 186 H (74-99) mg/dL POC Glucose (mg/dL) (70-110) mg/dL Plasma Lactic Acid Efren (0.7-2.0) mmol/L Total Bilirubin (0.2-1.3) mg/dL AST (17-59) U/L Creatine Kinase 2723 H* (55-170) U/L Troponin I (0.000-0.034) ng/mL Total Protein (6.3-8.2) g/dL Urine Protein (Negative) Urine Ketones (Negative) Urine Blood (Negative) Ur Leukocyte Esterase (Negative) Urine RBC (0-5) /hpf Urine WBC (0-5) /hpf Urine Bacteria (None) /hpf Hyaline Casts (0-2) /lpf Urine Mucus (None) /hpf Thrombosis Risk Factor Assmnt - Choose All That Apply Any of the Below Risk Factors Present?: No Other Risk Factors: No Other congenital or acquired thrombophilia - If yes, enter type in comment: No Thrombosis Risk Factor Assessment Level: Very Low Risk Assessment and Plan Assessment: Acute rhabdomyolysis Fall and was on the floor for 2 to 3 days Dehydration managed with elevated lactic acid level, present on admission and improving acute urinary tract infection Acute urinary retention s/p Henry catheter Mild acute COPD exacerbation A-fib and RVR on Xarelto with elevated troponin History of DVT on Xarelto History of right humerus fracture status post fixation and hardcore wire placement, possible noncompliance effusion, asymptomatic Plan: Continue with normal saline 100 mL/h, This can be lowered to 75 mL/h Keep monitoring creatinine kinase Start ceftriaxone and monitor urine culture Discontinue IV Solu-Medrol and start prednisone 40 mg Continue with blood thinner Xarelto, amiodarone and metoprolol Cardiology team consult Labs and medication were reviewed.. Continue same treatment. Continue with symptomatic treatment. Resume home medication. Monitor labs and vitals. DVT and GI prophylaxis. Further recommendations as per clinical course of the patient DVT prophylaxis: Subcutaneous heparin GI Prophylaxis: Pepcid PT/OT: Pending Prognosis is guarded
--- NOTE | 2024-01-13 13:19 | P.CRDCN ---
History of Present Illness Consult date: 01/13/24 Consult reason: atrial fibrillation History of present illness: The patient is an 83-year-old male who follows in the office with Dr. Davis. Cardiology has been consulted for syncope, however the patient denies actually losing consciousness. The patient did recently have a fall where he fractured his right elbow. He states he has been doing better about using assistive devices, however had not eaten or drank fluid over the course of 48 hours when he became weak ambulating to the restroom. The patient states when he felt extremely weak he was able to guide himself to the floor. The patient is currently being treated for rhabdomyolysis, with CK level being greater than 2000. The patient also has elevated troponins which are to be e xpected in relation to his CK level DIAGNOSTICS: EKG shows atrial fibrillation with RVR. Heart rates in the 120s. Lab data: WBC 12.5, hemoglobin 13.4, hematocrit 42.4, platelet 163, sodium 141, potassium 4.3, BUN 22, creatinine 0.99, CK 2723, troponin 0.08, 0.07, 0.05, 0.05, TSH 1.4 CT scan of the brain shows no acute intracranial process Chest x-ray shows no acute cardiopulmonary disease process REVIEW OF SYSTEMS: No fever or chills. No cough or expectoration. No diaphoresis. Patient denies headache, dizziness, blurred vision, double vision. Patient denies any stomach discomfort. No nausea, vomiting. No hematochezia. No hematemesis. Denies any black stools or blood in his stools. Denies dysuria or hematuria. No muscle weakness or numbness. Denies any current chest pain or chest pressure. No difficulty breathing. PHYSICAL EXAMINATION: This is a 82-year-old male in no apparent distress at the time of my examination. HEENT: Head is atraumatic, normocephalic. Pupils are equal, round. There is no jugular venous distention. No carotid bruit is heard. CHEST EXAMINATION: Lungs are clear to auscultation. No chest wall tenderness is noted on palpation or with deep breathing. HEART EXAMINATION: Irregular rate and rhythm. S1, S2 heard. No murmurs, gallops or rub. ABDOMEN: Soft, nontender. Bowel sounds are heard. No organomegaly noted. EXTREMITIES: 2+ peripheral pulses with no evidence of peripheral edema and no calf tenderness noted. Bruising and swelling noted around right elbow. NEUROLOGIC EXAMINATION: Patient is awake, alert and oriented x3. FINAL ASSESSMENT AND PLAN: Mechanical fall Acute rhabdomyolysis Dehydration A-fib with RVR PLAN: Continue current medication regimen including rehydration with IV fluids Consider discontinuing isosorbide if patient develops hypotension Outpatient follow-up with Dr. Davis regarding possible cardioversion should the patient remain in atrial fibrillation Further recommendations to be based upon clinical course I am dictating on behalf of Dr Adama Arrieta's history/physical and assessment/plan. Past Medical History Past Medical History: Atrial Fibrillation, Asthma, Deep Vein Thrombosis (DVT), Hearing Disorder / Deafness, Hyperlipidemia, Hypertension, Osteoarthritis (OA), Pneumonia, Renal Disease Additional Past Medical History / Comment(s): Hx pneumonia yrs ago, RSV/ hospitalized x 2 weeks in ICU, dvt R calf, hiatal hernia, hx kidney stones, [place] use of bilateral hearing aids. History of Any Multi-Drug Resistant Organisms: None Reported Past Surgical History: Joint Replacement Additional Past Surgical History / Comment(s): Bilateral knee replacements., total L hip arthroplasty, LIS and cardioversions Past Anesthesia/Blood Transfusion Reactions: No Reported Reaction Smoking Status: Never smoker - Past Family History Mother Family Medical History: No Reported History Medications and Allergies Home Medications Medication Instructions Recorded Confirmed Type Metoprolol Tartrate 25 mg PO BID 05/29/18 01/12/24 History Rivaroxaban [Xarelto] 20 mg PO HS 05/29/18 01/12/24 History Tamsulosin HCl [Flomax] 0.4 mg PO HS 05/29/18 01/12/24 History Albuterol Sulfate [Albuterol 1 puff PO RT-Q4H PRN 10/07/21 01/12/24 History Sulfate Hfa] Fluticasone Nasal [place] [Flonase 1 spray EA NOSTRIL BID PRN 06/02/22 01/12/24 History Nasal [place]] Fluticasone/Umeclidin/Vilanter 1 puff INHALATION RT-DAILY 09/07/23 01/12/24 History [Trelegy Ellipta 200-62.5-25] Atorvastatin [Lipitor] 40 mg PO HS 10/16/23 01/12/24 History Ezetimibe [Zetia] 10 mg PO DAILY 10/16/23 01/12/24 History Isosorbide Mononitrate ER [Imdur] 30 mg PO DAILY 10/16/23 01/12/24 History Levocetirizine Dihydrochloride 5 mg PO HS 10/16/23 01/12/24 History [Xyzal] Sennosides [Senokot] 8.6 mg PO DAILY PRN tab 10/17/23 01/12/24 Rx Amiodarone [Cordarone] 100 mg PO HS 01/12/24 01/12/24 History Venlafaxine HCl [Effexor XR] 75 mg PO HS 01/12/24 01/12/24 History Allergies Allergy/AdvReac Type Severity Reaction Status Date / Time rosuvastatin [From Crestor] AdvReac muscle Verified 01/12/24 16:44 soreness/cramps Physical Exam Vitals: Vital Signs Temp Pulse Pulse Resp BP BP Pulse Ox 01/13/24 12:40 100 01/13/24 12:27 102 H 01/13/24 12:00 97.6 F 102 H 16 104/66 95 01/13/24 08:35 100 01/13/24 08:28 101 H 98 01/13/24 08:00 97.2 F L 94 16 120/78 96 01/13/24 04:32 110 H 20 01/13/24 04:00 98.0 F 110 H 20 122/80 95 01/13/24 03:57 104 H 01/13/24 01:27 96 22 113/81 94 L 01/12/24 23:39 105 H 24 136/74 92 L 01/12/24 22:00 104 H 26 H 123/78 95 01/12/24 21:57 104 H 01/12/24 21:49 101 H 01/12/24 21:38 94 28 H 96 01/12/24 20:21 84 01/12/24 20:14 84 01/12/24 20:00 96 28 H 108/80 97 01/12/24 19:36 88 22 120/73 97 01/12/24 18:15 93 18 133/86 95 01/12/24 16:14 98.3 F 118 H 18 133/104 96 Intake and Output 01/12/24 01/13/24 01/13/24 22:59 06:59 14:59 Intake Total 1988 Output Total 500 Balance -500 1987 Intake: Intake, IV Titration 850 Amount Sodium Chloride 0.9% 1, 800 000 ml @ 100 mls/hr IV . Q10H [facility] Rx#:[id number] cefTRIAXone 1 gm In 50 Sodium Chloride 0.9% 50 ml @ 100 mls/hr IVPB Q24HR [facility] Rx#:[id number] Oral 1138 Output: Urine 500 Other: Voiding Method Incontinent Indwelling Catheter Weight 99.79 kg 99.79 kg Results 01/13/24 08:00 01/13/24 08:00 Cardiac Enzymes 01/12/24 01/12/24 01/12/24 Range/Units 16:39 16:39 20:56 AST 122 H (17-59) U/L Troponin I 0.083 H* 0.076 H* (0.000-0.034) ng/mL 01/12/24 01/13/24 Range/Units 23:45 06:42 AST (17-59) U/L Troponin I 0.059 H* 0.053 H* (0.000-0.034) ng/mL Coagulation 01/12/24 Range/Units 16:39 PT 13.6 H (10.0-12.5) sec APTT 27.1 (22.0-30.0) sec CBC 01/12/24 01/13/24 Range/Units 16:39 08:00 WBC 12.6 H 12.5 H (3.8-10.6) k/uL RBC 4.54 4.45 (4.30-5.90) m/uL Hgb 13.4 13.4 (13.0-17.5) gm/dL Hct 42.5 42.4 (39.0-53.0) % Plt Count 191 163 (150-450) k/uL Comprehensive Metabolic Panel 01/12/24 01/13/24 Range/Units 16:39 08:00 Sodium 139 141 (137-145) mmol/L Potassium 4.5 4.3 (3.5-5.1) mmol/L Chloride 107 110 H (98-107) mmol/L Carbon Dioxide 22 22 (22-30) mmol/L BUN 20 22 H (9-20) mg/dL Creatinine 1.03 0.99 (0.66-1.25) mg/dL Glucose 112 H 186 H (74-99) mg/dL Calcium 9.0 8.7 (8.4-10.2) mg/dL AST 122 H (17-59) U/L ALT 30 (4-49) U/L Alkaline Phosphatase 126 (38-126) U/L Total Protein 6.2 L (6.3-8.2) g/dL Albumin 3.7 (3.5-5.0) g/dL Current Medications Generic Name Dose Route Start Last Admin Trade Name Freq PRN Reason Stop Dose Admin Albuterol Sulfate 2.5 mg 01/12/24 19:44 01/12/24 20:12 Albuterol Nebulized 2.5 Mg/3 Ml INHALATION 2.5 mg RT-Q4H PRN Administration Shortness Of Breath Albuterol/Ipratropium 3 ml 01/13/24 00:00 01/13/24 12:27 Ipratropium-Albuterol 3 Ml Neb INHALATION 3 ml RT-Q4H BRIANA Administration Amiodarone HCl 100 mg 01/13/24 21:00 Amiodarone 100 Mg Tab PO HS BRIANA Atorvastatin Calcium 40 mg 01/12/24 21:00 01/12/24 22:02 Atorvastatin 40 Mg Tab PO 40 mg HS BRIANA Administration Budesonide/Formoterol Fumarate 2 puff 01/13/24 08:00 01/13/24 08:27 Symbicort 80-4.5 Mcg Inhaler INHALATION 2 puff RT-BID BRIANA Administration Ezetimibe 10 mg 01/13/24 09:00 01/13/24 08:10 Ezetimibe 10 Mg Tab PO 10 mg DAILY BRIANA Administration Famotidine 20 mg 01/13/24 21:00 Famotidine 20 Mg Tab PO BID BRIANA Fluticasone Propionate 1 spray 01/12/24 19:44 Fluticasone 50mcg/[place] Nasal 16gm EA NOSTRIL BID PRN Allergy Symptoms Sodium Chloride 1,000 mls @ 100 mls/hr 01/12/24 19:45 01/12/24 20:02 Saline 0.9% IV 100 mls/hr .Q10H BRIANA Administration Ceftriaxone Sodium 1 gm/ 50 mls @ 100 mls/hr 01/13/24 12:00 Sodium Chloride IVPB Q24HR BRIANA Protocol Isosorbide Mononitrate 30 mg 01/13/24 09:00 01/13/24 08:10 Isosorbide Mononitrate Er 30 Mg Tab.Er.24h PO 30 mg DAILY BRIANA Administration Loratadine 10 mg 01/12/24 21:00 01/12/24 22:03 Loratadine 10 Mg Tab PO 10 mg HS BRIANA Administration Metoprolol Tartrate 25 mg 01/12/24 21:00 01/13/24 08:10 Metoprolol Tartrate 25 Mg Tab PO 25 mg BID BRIANA Administration Naloxone HCl 0.2 mg 01/12/24 19:45 Naloxone 0.4 Mg/Ml 1 Ml Vial IV Q2M PRN Opioid Reversal Prednisone 40 mg 01/14/24 09:00 Prednisone 20 Mg Tab PO DAILY BRIANA Rivaroxaban 20 mg 01/12/24 21:00 01/12/24 22:04 Rivaroxaban 20 Mg Tab PO 20 mg HS BRIANA Administration Protocol Senna 8.6 mg 01/12/24 19:44 Sennosides 8.6 Mg Tab PO DAILY PRN Constipation Tamsulosin HCl 0.4 mg 01/12/24 21:00 01/12/24 22:04 Tamsulosin 0.4 Mg Cap.Er.24h PO 0.4 mg HS BRIANA Administration Venlafaxine HCl 75 mg 01/12/24 21:00 01/12/24 22:04 Venlafaxine Hcl Er 75 Mg Cap PO 75 mg HS BRIANA Administration Intake and Output 01/12/24 01/13/24 01/13/24 22:59 06:59 14:59 Intake Total 1987 Output Total 500 Balance -500 1987 Intake: Intake, IV Titration 850 Amount Sodium Chloride 0.9% 1, 800 000 ml @ 100 mls/hr IV . Q10H [facility] Rx#:[id number] cefTRIAXone 1 gm In 50 Sodium Chloride 0.9% 50 ml @ 100 mls/hr IVPB Q24HR [facility] Rx#:[id number] Oral 1138 Output: Urine 500 Other: Voiding Method Incontinent Indwelling Catheter Weight 99.79 kg 99.79 kg 01/13/24 08:00 01/13/24 08:00
--- NOTE | 2024-01-13 16:43 | US ---
EXAMINATION TYPE: US renals and bladder DATE OF EXAM: 01/13/2024 COMPARISON: CT 2021 CLINICAL INDICATION: Male, 83 years old with history of sever uti and retention; EXAM MEASUREMENTS: Right Kidney: 10.5 x 4.8 x 4.4 cm Left Kidney: 10.3 x 4.5 x 4.7 cm Right Kidney: 0.6cm echogenic focus superior pole Left Kidney: 0.5cm echogenic focus inferior pole Bladder: not distended, mckinley catheter There is no evidence for hydronephrosis at this point in time. No masses are identified. The urinar y bladder is anechoic. IMPRESSION: No evidence for obstructive uropathy. Bilateral nonobstructing calculi.
[2024-01-13] MEDS: FAMOTIDINE 20 MG TAB PO SCH (19:27)
[2024-01-13] MEDS: AMIODARONE 100 MG TAB PO SCH (19:28)
[2024-01-13] MEDS ORDERED: FAMOTIDINE 20 MG/2 ML VIAL IV SCH (21:00)
[2024-01-14] MEDS: predniSONE 20 MG TAB PO SCH (08:07)
[2024-01-14 08:49] LABS: Basophils % (A) 0 %; Eosinophils % (A) 0 %; HCT 37.5 % (39.0-53.0); HGB 11.9 gm/dL (13.0-17.5); Hypochromasia Slight; Lymphocytes # (A) 0.6 k/uL (1.0-4.8); Lymphocytes % (A) 3 %; MCH 30.2 pg (25.0-35.0); MCHC 31.7 g/dL (31.0-37.0); MCV 95.2 fL (80.0-100.0); Monocytes # (A) 0.6 k/uL (0-1.0); Monocytes % (A) 4 %; Neutrophils # (A) 16.2 k/uL (1.3-7.7); Neutrophils % (A) 92 %; Platelet Count 195 k/uL (150-450); RBC 3.94 m/uL (4.30-5.90); RDW 15.7 % (11.5-15.5); WBC 17.6 k/uL (3.8-10.6)
[2024-01-14 09:08] LABS: African American GFR (CKD) 82 (>60 ml/min/1.73 sqM); Anion Gap 6 mmol/L; Blood Urea Nitrogen 30 mg/dL (9-20); Calcium 8.5 mg/dL (8.4-10.2); Carbon Dioxide 21 mmol/L (22-30); Chloride 112 mmol/L (98-107); Glucose 137 mg/dL (74-99); Non-African American GFR(CKD) 71 (>60 ml/min/1.73 sqM); Potassium 4.3 mmol/L (3.5-5.1); Sodium 139 mmol/L (137-145)
--- NOTE | 2024-01-14 12:13 | P.PN ---
Subjective Progress Note Date: 01/14/24 The patient is an 83-year-old male who follows in the office with Dr. Davis. He is currently admitted after experiencing a presyncopal episode. He has had multiple falls within the last several months, however his most recent episode was likely secondary to dehydration. Patient is interviewed and examined resting comfortably in the recliner chair. He denies any dizziness lightheadedness when ambulating around his room. He currently denies any chest pain, chest pressure, or difficulty breathing. GENERAL: Well-appearing, well-nourished and in no acute distress. NECK: Supple without JVD or thyromegaly. LUNGS: Breath sounds diminished to auscultation bilaterally. Respiration equal and unlabored. No wheezes, rales or rhonchi. HEART: Irregular rate and rhythm without murmurs, rubs or gallops. S1 and S2 heard. EXTREMITIES: Normal range of motion, no edema. No clubbing or cyanosis. Peripheral pulses intact and strong. Ambulates with a walker. TELEMETRY: Persistent atrial fibrillation LABS: WBC 17.6, hemoglobin 11.9, hematocrit 37.5, platelet 195, sodium 139, potassium 4.3, BUN 30, creatinine 0.99 IMPRESSION: Status post mechanical fall Acute rhabdomyolysis He dehydration A-fib with RVR PLAN: Increase beta-niraj for rate control Encourage oral hydration and ambulation Patient may be discharged from the cardiac standpoint Outpatient follow-up with Dr. Davis in 1 week I am dictating on behalf of Dr Adama Arrieta's history/physical and assessment/plan. Objective - Vital Signs Vital signs: Vital Signs Temp 97.5 F L 01/14/24 11:41 Pulse 84 01/14/24 11:52 Resp 16 01/14/24 11:52 BP 107/69 01/14/24 11:41 Pulse Ox 92 L 01/14/24 11:41 FiO2 Intake & Output 01/13/24 01/14/24 01/14/24 18:59 06:59 18:59 Intake Total 3614 240 Output Total 350 350 Balance 3264 -350 240 Intake: Intake, IV Titration 1700 Amount Sodium Chloride 0.9% 1, 1600 000 ml @ 100 mls/hr IV . Q10H [facility] Rx#:[id number] cefTRIAXone 1 gm In 100 Sodium Chloride 0.9% 50 ml @ 100 mls/hr IVPB Q24HR [facility] Rx#:[id number] Oral 1914 240 Output: Urine 350 350 Other: Voiding Method Indwelling Catheter Indwelling Catheter Indwelling Catheter # Bowel Movements 1 - Labs CBC & Chem 7: 01/14/24 07:44 01/14/24 07:44 Labs: Abnormal Lab Results - Last 24 Hours (Table) 01/13/24 01/13/24 01/14/24 Range/Units 07:13 08:00 07:44 WBC 17.6 H (3.8-10.6) k/uL RBC 3.94 L (4.30-5.90) m/uL Hgb 11.9 L (13.0-17.5) gm/dL Hct 37.5 L (39.0-53.0) % RDW 15.7 H (11.5-15.5) % Neutrophils # 16.2 H (1.3-7.7) k/uL Lymphocytes # 0.6 L (1.0-4.8) k/uL Chloride (98-107) mmol/L Carbon Dioxide (22-30) mmol/L BUN (9-20) mg/dL Glucose (74-99) mg/dL Vitamin B12 1048.0 H (200.0-944.0) pg/mL Procalcitonin 2.07 H (0.02-0.09) ng/mL 01/14/24 Range/Units 07:44 WBC (3.8-10.6) k/uL RBC (4.30-5.90) m/uL Hgb (13.0-17.5) gm/dL Hct (39.0-53.0) % RDW (11.5-15.5) % Neutrophils # (1.3-7.7) k/uL Lymphocytes # (1.0-4.8) k/uL Chloride 112 H (98-107) mmol/L Carbon Dioxide 21 L (22-30) mmol/L BUN 30 H (9-20) mg/dL Glucose 137 H (74-99) mg/dL Vitamin B12 (200.0-944.0) pg/mL Procalcitonin (0.02-0.09) ng/mL
[2024-01-14] MEDS: METOPROLOL TARTRATE 25 MG TAB PO STA (12:20)
--- NOTE | 2024-01-14 12:33 | P.PN ---
Subjective Progress Note Date: 01/14/24 83 years old male with past medical history of multiple medical problems including atrial fibrillation and DVT on a blood thinner, Hearing Disorder / Deafness, Hyperlipidemia, Hypertension, Osteoarthritis (OA), Patient presents because he was on the floor for 2 days. Patient states that his on April 26, 2023, since then he has difficulty taking care of himself. The last few days prior to hospitalization he had tremor in his hands and has been shaking with difficulty walking because of balance problem, because of his tremor he could not call of friend, he ran out of food and drinks for 2 days, eventually he fell on the floor and he had difficult time moving, it took him 2 days to crawl to his cell phone as he has large house about 4000 square feet as per patient, he could manage to call his son who brought him to the emergency room. Currently he is sitting up in bed, fully awake and oriented, looks relaxed. He has been complaining from some tachypnea with coughing and occasional phlegm but no overt chest pain, no abdominal pain Patient has been complaining from hesitancy in urination he noticed some blood in his urine and little dysuria. Henry catheter was placed in the emergency room. Patient denies headache dizziness weakness or numbness specific for lateralization. Patient however has generalized weakness. Patient denies depression or suicidal ideation He denies smoking alcohol or illicit drugs. On admission he has mild leukocytosis of 12.5, he is afebrile and list of vitals look stable now, his was mildly tachypneic but currently breathing at 16 breaths/min, Heart rate is around 110. Creatinine kinase was elevated 5444, coming down to 2723 today. Urine analysis suspicious for infection. AST slightly up 11/27/2021, bilirubin 1.6 but ALT is normal at 30. Troponin is mildly elevated 0.08, 0.07, 0.05 and 0.05. Microwires Influenza A and type B, RSV, SARS (coronavirus) are and detected Chest x-ray: COPD with no acute process Elbow x-ray showing no new fracture but incomplete fusion of fracture site to the distal humerus CT of brain negative for acute process EKG showing A-fib with RVR with a rate of 120. Patient started on IV Solu-Medrol 40 mg twice daily, normal saline 100 mL/h and resumed his Xarelto 20 mg as well as amiodarone and metoprolol. 01/14/2024: Patient seen and evaluated bedside, patient admitted for A-fib RVR. Blood work reviewed WBC 17.6 hemoglobin 11.0 platelet count 195. Serum chemistry showed sodium 139, serum creatinine down. Heart rate better controlled 84. PHYSICAL EXAMINATION: GENERAL: The patient is alert and oriented x3, ill appearance HEENT: Pupils are round and equally reacting to light. EOMI. No scleral icterus. CARDIOVASCULAR: S1 and S2 present. No murmurs, rubs, or gallops. PULMONARY: Chest is clear to auscultation, no wheezing or crackles. ABDOMEN: Soft, nontender, nondistended, normoactive bowel sounds. No palpable organomegaly. MUSCULOSKELETAL: Right humerus swelling nontender on palpation EXTREMITIES: No cyanosis, clubbing, or pedal edema. NEUROLOGICAL: Gross neurological examination did not reveal any focal deficits. . Objective - Vital Signs Vital signs: Vital Signs Temp 97.5 F L 01/14/24 11:41 Pulse 84 01/14/24 11:52 Resp 16 01/14/24 11:52 BP 107/69 01/14/24 11:41 Pulse Ox 92 L 01/14/24 11:41 FiO2 Intake & Output 01/13/24 01/14/24 01/14/24 18:59 06:59 18:59 Intake Total 3614 240 Output Total 350 350 Balance 3264 -350 240 Intake: Intake, IV Titration 1700 Amount Sodium Chloride 0.9% 1, 1600 000 ml @ 100 mls/hr IV . Q10H [facility] Rx#:[id number] cefTRIAXone 1 gm In 100 Sodium Chloride 0.9% 50 ml @ 100 mls/hr IVPB Q24HR [facility] Rx#:[id number] Oral 1914 240 Output: Urine 350 350 Other: Voiding Method Indwelling Catheter Indwelling Catheter Indwelling Catheter # Bowel Movements 1 - Labs CBC & Chem 7: 01/14/24 07:44 01/14/24 07:44 Labs: Abnormal Lab Results - Last 24 Hours (Table) 01/13/24 01/13/24 01/14/24 Range/Units 07:13 08:00 07:44 WBC 17.6 H (3.8-10.6) k/uL RBC 3.94 L (4.30-5.90) m/uL Hgb 11.9 L (13.0-17.5) gm/dL Hct 37.5 L (39.0-53.0) % RDW 15.7 H (11.5-15.5) % Neutrophils # 16.2 H (1.3-7.7) k/uL Lymphocytes # 0.6 L (1.0-4.8) k/uL Chloride (98-107) mmol/L Carbon Dioxide (22-30) mmol/L BUN (9-20) mg/dL Glucose (74-99) mg/dL Vitamin B12 1048.0 H (200.0-944.0) pg/mL Procalcitonin 2.07 H (0.02-0.09) ng/mL 01/14/24 Range/Units 07:44 WBC (3.8-10.6) k/uL RBC (4.30-5.90) m/uL Hgb (13.0-17.5) gm/dL Hct (39.0-53.0) % RDW (11.5-15.5) % Neutrophils # (1.3-7.7) k/uL Lymphocytes # (1.0-4.8) k/uL Chloride 112 H (98-107) mmol/L Carbon Dioxide 21 L (22-30) mmol/L BUN 30 H (9-20) mg/dL Glucose 137 H (74-99) mg/dL Vitamin B12 (200.0-944.0) pg/mL Procalcitonin (0.02-0.09) ng/mL Assessment and Plan Assessment: Assessment and plan S/p fall with rhabdomyolysis Urinary tract infection Atrial fibrillation with rapid ventricular response history of DVT on Xarelto History of right humerus fracture s/p fixation, impaired fusion History of COPD with exacerbation * Regards to rhabdomyolysis continue fluid resuscitation, follow-up on CPK levels * In regards to urinary tract infection continue patient on Rocephin * Regards to atrial fibrillation continue anticoagulation with Xarelto, continue rate control medication including metoprolol * Regards to COPD continue patient on breathing treatment continue prednisone * In regards to BPH continue Flomax
[2024-01-14] MEDS: METOPROLOL TARTRATE 25 MG TAB PO SCH (20:08)
[2024-01-15 01:11] LABS: Basophils % (A) 0 %; Eosinophils % (A) 0 %; HCT 37.1 % (39.0-53.0); HGB 11.8 gm/dL (13.0-17.5); Lymphocytes # (A) 0.5 k/uL (1.0-4.8); Lymphocytes % (A) 4 %; MCH 30.1 pg (25.0-35.0); MCHC 31.8 g/dL (31.0-37.0); MCV 94.6 fL (80.0-100.0); Mean Platelet Volume 8.6; Monocytes # (A) 0.4 k/uL (0-1.0); Monocytes % (A) 3 %; Neutrophils % (A) 92 %; Platelet Count 187 k/uL (150-450); RBC 3.92 m/uL (4.30-5.90); RDW 15.5 % (11.5-15.5); WBC 14.1 k/uL (3.8-10.6)
[2024-01-15 07:47] LABS: HCT 37.7 % (39.0-53.0); Hypochromasia Slight; MCH 29.9 pg (25.0-35.0); MCHC 31.9 g/dL (31.0-37.0); MCV 93.6 fL (80.0-100.0); Mean Platelet Volume 8.3; Platelet Count 214 k/uL (150-450); RBC 4.03 m/uL (4.30-5.90); RDW 15.7 % (11.5-15.5); WBC 15.2 k/uL (3.8-10.6)
[2024-01-15 07:55] LABS: African American GFR (CKD) >90 (>60 ml/min/1.73 sqM); Anion Gap 4 mmol/L; Blood Urea Nitrogen 30 mg/dL (9-20); Calcium 8.4 mg/dL (8.4-10.2); Carbon Dioxide 22 mmol/L (22-30); Chloride 113 mmol/L (98-107); Creatine Kinase 477 U/L (55-170); Glucose 96 mg/dL (74-99); Non-African American GFR(CKD) 81 (>60 ml/min/1.73 sqM); Potassium 4.3 mmol/L (3.5-5.1); Sodium 139 mmol/L (137-145)
[2024-01-15] MEDS: IPRATROPIUM-ALBUTEROL 3 ML NEB INHALATION SCH (08:34)
[2024-01-15] MEDS: METOPROLOL TARTRATE 50 MG TAB PO SCH (08:53)
[2024-01-15] MEDS: guaiFENesin SYRUP 100MG/5ML 200 MG/10 ML CUP PO PRN (08:57)
--- NOTE | 2024-01-15 11:27 | P.PN ---
Subjective Progress Note Date: 01/15/24 83 years old male with past medical history of multiple medical problems including atrial fibrillation and DVT on a blood thinner, Hearing Disorder / Deafness, Hyperlipidemia, Hypertension, Osteoarthritis (OA), Patient presents because he was on the floor for 2 days. Patient states that his on April 26, 2023, since then he has difficulty taking care of himself. The last few days prior to hospitalization he had tremor in his hands and has been shaking with difficulty walking because of balance problem, because of his tremor he could not call of friend, he ran out of food and drinks for 2 days, eventually he fell on the floor and he had difficult time moving, it took him 2 days to crawl to his cell phone as he has large house about 4000 square feet as per patient, he could manage to call his son who brought him to the emergency room. Currently he is sitting up in bed, fully awake and oriented, looks relaxed. He has been complaining from some tachypnea with coughing and occasional phlegm but no overt chest pain, no abdominal pain Patient has been complaining from hesitancy in urination he noticed some blood in his urine and little dysuria. Henry catheter was placed in the emergency room. Patient denies headache dizziness weakness or numbness specific for lateralization. Patient however has generalized weakness. Patient denies depression or suicidal ideation He denies smoking alcohol or illicit drugs. On admission he has mild leukocytosis of 12.5, he is afebrile and list of vitals look stable now, his was mildly tachypneic but currently breathing at 16 breaths/min, Heart rate is around 110. Creatinine kinase was elevated 5444, coming down to 2723 today. Urine analysis suspicious for infection. AST slightly up 11/27/2021, bilirubin 1.6 but ALT is normal at 30. Troponin is mildly elevated 0.08, 0.07, 0.05 and 0.05. Microwires Influenza A and type B, RSV, SARS (coronavirus) are and detected Chest x-ray: COPD with no acute process Elbow x-ray showing no new fracture but incomplete fusion of fracture site to the distal humerus CT of brain negative for acute process EKG showing A-fib with RVR with a rate of 120. Patient started on IV Solu-Medrol 40 mg twice daily, normal saline 100 mL/h and resumed his Xarelto 20 mg as well as amiodarone and metoprolol. 01/14/2024: Patient seen and evaluated bedside, patient admitted for A-fib RVR. Blood work reviewed WBC 17.6 hemoglobin 11.0 platelet count 195. Serum chemistry showed sodium 139, serum creatinine down. Heart rate better controlled 84. 01/15/2024: Patient seen and evaluated bedside, patient worked with therapy, noted to have paroxysmal tachycardia heart rate 107. Hematology reviewed WBC 15.2 hemoglobin 12, serum chemistry reviewed CPK trending down. Discussed with case management potential discharge in the next 24 hours we will send referrals to rehab and see if patient is approved PHYSICAL EXAMINATION: GENERAL: The patient is alert and oriented x3, ill appearance HEENT: Pupils are round and equally reacting to light. EOMI. No scleral icterus. CARDIOVASCULAR: S1 and S2 present. Irregular rhythm tachycardic s. PULMONARY: Chest is clear to auscultation, no wheezing or crackles. ABDOMEN: Soft, nontender, nondistended, normoactive bowel sounds. No palpable organomegaly. MUSCULOSKELETAL: Right humerus swelling nontender on palpation EXTREMITIES: No cyanosis, clubbing, or pedal edema. NEUROLOGICAL: Gross neurological examination did not reveal any focal deficits. . Objective - Vital Signs Vital signs: Vital Signs Temp 98.6 F 01/15/24 08:00 Pulse 92 01/15/24 08:43 Resp 16 01/15/24 08:00 BP 116/74 01/15/24 08:00 Pulse Ox 95 01/15/24 08:35 FiO2 Intake & Output 01/14/24 01/15/24 01/15/24 18:59 06:59 18:59 Intake Total 358 Output Total 375 650 Balance -17 -650 Intake: Oral 358 Output: Urine 375 650 Other: Voiding Method Indwelling Catheter Indwelling Catheter # Bowel Movements 1 - Labs CBC & Chem 7: 01/15/24 07:04 01/15/24 07:04 Labs: Abnormal Lab Results - Last 24 Hours (Table) 01/15/24 01/15/24 01/15/24 Range/Units 01:00 07:04 07:04 WBC 14.1 H 15.2 H (3.8-10.6) k/uL RBC 3.92 L 4.03 L (4.30-5.90) m/uL Hgb 11.8 L 12.0 L (13.0-17.5) gm/dL Hct 37.1 L 37.7 L (39.0-53.0) % RDW 15.7 H (11.5-15.5) % Neutrophils # 13.0 H (1.3-7.7) k/uL Lymphocytes # 0.5 L (1.0-4.8) k/uL Chloride 113 H (98-107) mmol/L BUN 30 H (9-20) mg/dL Creatine Kinase 477 H (55-170) U/L Assessment and Plan Assessment: Assessment and plan S/p fall with rhabdomyolysis Urinary tract infection Atrial fibrillation with rapid ventricular response history of DVT on Xarelto History of right humerus fracture s/p fixation, impaired fusion History of COPD with exacerbation * Regards to rhabdomyolysis appropriately fluid resuscitation, IV fluid dis continued 01/15 follow-up on CPK levels ending down * In regards to urinary tract infection continue patient on Rocephin day 3 * Regards to atrial fibrillation continue anticoagulation with Xarelto, continue rate control medication including metoprolol * Regards to COPD continue patient on breathing treatment continue prednisone, to complete 5-day course * In regards to BPH continue Flomax * Worked with therapy will evaluate for discharge home versus rehab patient lives by himself Time with Patient: Greater than 30
--- NOTE | 2024-01-15 12:42 | P.PN ---
Subjective Progress Note Date: 01/15/24 The patient is an 83-year-old male who follows in the office with Dr. Davis. He is currently admitted after experiencing a presyncopal episode. He has had multiple falls within the last several months, however his most recent episode was likely secondary to dehydration. Patient is interviewed and examined resting comfortably in bed. He denies any dizziness lightheadedness when ambulating around his room. He currently denies any chest pain, chest pressure. Patient does complain of shortness of breath secondary to asthma. Heart rate is 1 in the 90s, blood pressure 127/69. GENERAL: Well-appearing, well-nourished and in no acute distress. NECK: Supple without JVD or thyromegaly. LUNGS: Breath sounds diminished to auscultation bilaterally. Bilateral wheezing. HEART: Irregular rate and rhythm without murmurs, rubs or gallops. S1 and S2 heard. EXTREMITIES: Normal range of motion, no edema. No clubbing or cyanosis. Peripheral pulses intact and strong. Ambulates with a walker. IMPRESSION: Status post mechanical fall Acute rhabdomyolysis Dehydration A-fib with RVR on presentation, currently rate controlled PLAN: Continue current cardiac medications Cardiology will sign off this case and follow on an as-needed basis. Please reconsult for any new concerns. Patient may follow-up with Dr. Davis in the office in one to 2 weeks. Nurse practitioner note has been reviewed, I agree with documented findings and plan of care. Patient was seen and examined. Objective - Vital Signs Vital signs: Vital Signs Temp 98 F 01/15/24 04:00 Pulse 99 01/15/24 04:00 Resp 18 01/15/24 04:00 BP 112/66 01/15/24 04:00 Pulse Ox 96 01/15/24 04:00 FiO2 Intake & Output 01/14/24 01/15/24 01/15/24 18:59 06:59 18:59 Intake Total 358 Output Total 375 650 Balance -17 650 Intake: Oral 358 Output: Urine 375 650 Other: Voiding Method Indwelling Catheter Indwelling Catheter # Bowel Movements 1 - Labs CBC & Chem 7: 01/15/24 07:04 01/15/24 07:04 Labs: Abnormal Lab Results - Last 24 Hours (Table) 01/14/24 01/14/24 01/15/24 Range/Units 07:44 07:44 01:00 WBC 17.6 H 14.1 H (3.8-10.6) k/uL RBC 3.94 L 3.92 L (4.30-5.90) m/uL Hgb 11.9 L 11.8 L (13.0-17.5) gm/dL Hct 37.5 L 37.1 L (39.0-53.0) % RDW 15.7 H (11.5-15.5) % Neutrophils # 16.2 H 13.0 H (1.3-7.7) k/uL Lymphocytes # 0.6 L 0.5 L (1.0-4.8) k/uL Chloride 112 H (98-107) mmol/L Carbon Dioxide 21 L (22-30) mmol/L BUN 30 H (9-20) mg/dL Glucose 137 H (74-99) mg/dL Creatine Kinase (55-170) U/L 01/15/24 01/15/24 Range/Units 07:04 07:04 WBC 15.2 H (3.8-10.6) k/uL RBC 4.03 L (4.30-5.90) m/uL Hgb 12.0 L (13.0-17.5) gm/dL Hct 37.7 L (39.0-53.0) % RDW 15.7 H (11.5-15.5) % Neutrophils # (1.3-7.7) k/uL Lymphocytes # (1.0-4.8) k/uL Chloride 113 H (98-107) mmol/L Carbon Dioxide (22-30) mmol/L BUN 30 H (9-20) mg/dL Glucose (74-99) mg/dL Creatine Kinase 477 H (55-170) U/L
--- NOTE | 2024-01-15 18:22 | CDI ---
Documentation Clarification Form Date: 01/15/2024 06:10:20 PM From: Raine Perales RN, CCDS Email: [email or web address] Admit Date: 01/12/2024 07:48:00 PM Patient Name: Yaw Brennan Visit Number: [id number] Discharge Date: ATTENTION: The Clinical Documentation Specialists (CDI) and [facility] Coding Staff appreciate your assistance in clarifying documentation. Please respond to the clarification below the line at the bottom and electronically sign. The CDI & [facility] Coding staff will review the response and follow-up if needed. Please note: Queries are made part of the Legal Health Record. If you have any questions, please contact the author of this message via ITS. Dr. Hever Bernal Acute Rhabdomyolysis is documented in the H&P and progress notes. Additional clarification regarding the type of rhabdomyolysis is requested. History/Risk Factors: A fib, DVT, HLD and HTN. Presented after a fall. Admitted with acute rhabdomyolysis, dehydration and COPD exacerbation. Clinical Indicators: H&P: "he fell on the floor and he had difficult time moving. It took him 2 days to crawl to his cell phone. Acute rhabdomyolysis." 01/13 Cardiology: "The patient is currently being treated for rhabdomyolysis, with CK level being greater than 2000." 01/15 IM: "In regard to rhabdomyolysis, appropriate fluid resuscitation, IV fluid discontinued 01/15. Follow-up on CPK levels trending down." 01/12-01/15 CK level: [id number] Treatment: Monitor CK levels; 1L IV bolus 0.9 NS on 01/12 then NS @100mL/hr Please clarify the type of rhabdomyolysis, if known: [y ] Traumatic rhabdomyolysis due to fall [ ] Traumatic rhabdomyolysis due to prolonged immobility [ ] Other, please specify [ ] Unable to Determine MTDD
[2024-01-16 09:14] LABS: HCT 38.2 % (39.0-53.0); HGB 12.1 gm/dL (13.0-17.5); Hypochromasia Slight; MCH 29.6 pg (25.0-35.0); MCHC 31.5 g/dL (31.0-37.0); MCV 93.7 fL (80.0-100.0); Mean Platelet Volume 8.3; Platelet Count 221 k/uL (150-450); RBC 4.08 m/uL (4.30-5.90); RDW 15.7 % (11.5-15.5); WBC 11.7 k/uL (3.8-10.6)
[2024-01-16 09:22] LABS: African American GFR (CKD) >90 (>60 ml/min/1.73 sqM); Anion Gap 4 mmol/L; Blood Urea Nitrogen 24 mg/dL (9-20); Calcium 8.3 mg/dL (8.4-10.2); Carbon Dioxide 23 mmol/L (22-30); Chloride 111 mmol/L (98-107); Creatine Kinase 273 U/L (55-170); Glucose 108 mg/dL (74-99); Non-African American GFR(CKD) 82 (>60 ml/min/1.73 sqM); Potassium 4.1 mmol/L (3.5-5.1); Sodium 138 mmol/L (137-145)
[2024-01-16] MEDS: CEPHALEXIN 500 MG CAP PO SCH (10:07)
--- NOTE | 2024-01-16 11:39 | P.PN ---
Subjective Progress Note Date: 01/16/24 83 years old male with past medical history of multiple medical problems including atrial fibrillation and DVT on a blood thinner, Hearing Disorder / Deafness, Hyperlipidemia, Hypertension, Osteoarthritis (OA), Patient presents because he was on the floor for 2 days. Patient states that his on April 26, 2023, since then he has difficulty taking care of himself. The last few days prior to hospitalization he had tremor in his hands and has been shaking with difficulty walking because of balance problem, because of his tremor he could not call of friend, he ran out of food and drinks for 2 days, eventually he fell on the floor and he had difficult time moving, it took him 2 days to crawl to his cell phone as he has large house about 4000 square feet as per patient, he could manage to call his son who brought him to the emergency room. Currently he is sitting up in bed, fully awake and oriented, looks relaxed. He has been complaining from some tachypnea with coughing and occasional phlegm but no overt chest pain, no abdominal pain Patient has been complaining from hesitancy in urination he noticed some blood in his urine and little dysuria. Henry catheter was placed in the emergency room. Patient denies headache dizziness weakness or numbness specific for lateralization. Patient however has generalized weakness. Patient denies depression or suicidal ideation He denies smoking alcohol or illicit drugs. On admission he has mild leukocytosis of 12.5, he is afebrile and list of vitals look stable now, his was mildly tachypneic but currently breathing at 16 breaths/min, Heart rate is around 110. Creatinine kinase was elevated 5444, coming down to 2723 today. Urine analysis suspicious for infection. AST slightly up 11/27/2021, bilirubin 1.6 but ALT is normal at 30. Troponin is mildly elevated 0.08, 0.07, 0.05 and 0.05. Microwires Influenza A and type B, RSV, SARS (coronavirus) are and detected Chest x-ray: COPD with no acute process Elbow x-ray showing no new fracture but incomplete fusion of fracture site to the distal humerus CT of brain negative for acute process EKG showing A-fib with RVR with a rate of 120. Patient started on IV Solu-Medrol 40 mg twice daily, normal saline 100 mL/h and resumed his Xarelto 20 mg as well as amiodarone and metoprolol. 01/14/2024: Patient seen and evaluated bedside, patient admitted for A-fib RVR. Blood work reviewed WBC 17.6 hemoglobin 11.0 platelet count 195. Serum chemistry showed sodium 139, serum creatinine down. Heart rate better controlled 84. 01/15/2024: Patient seen and evaluated bedside, patient worked with therapy, noted to have paroxysmal tachycardia heart rate 107. Hematology reviewed WBC 15.2 hemoglobin 12, serum chemistry reviewed CPK trending down. Discussed with case management potential discharge in the next 24 hours we will send referrals to rehab and see if patient is approved 01/16/2024: Patient seen and evaluated at bedside, patient had episode of delirium has been intermittently confused. However through the day his mentation improved was alert to person place and situation. His home safety concern has been a big issue.. PEER TO PEER Completed with patient insurance waiting to see if he will be approved for rehab since he believes patient lives by himself and were not be a safe discharge home by himself. Case management aware of the situation. Patient states if he has to go home his son can help out however he is at work at the moment and might not be able to help him today PHYSICAL EXAMINATION: GENERAL: The patient is alert and oriented x3, ill appearance HEENT: Pupils are round and equally reacting to light. EOMI. No scleral icterus. CARDIOVASCULAR: S1 and S2 present. Irregular rhythm , rate controlled within normal limits. PULMONARY: Chest is clear to auscultation, no wheezing or crackles. ABDOMEN: Soft, nontender, nondistended, normoactive bowel sounds. No palpable organomegaly. MUSCULOSKELETAL: Right humerus swelling nontender on palpation EXTREMITIES: No cyanosis, clubbing, or pedal edema. NEUROLOGICAL: Gross neurological examination did not reveal any focal deficits. . Objective - Vital Signs Vital signs: Vital Signs Temp 97.9 F 01/16/24 07:50 Pulse 84 01/16/24 09:07 Resp 16 01/16/24 07:50 BP 155/92 01/16/24 07:50 Pulse Ox 96 01/16/24 08:54 FiO2 Intake & Output 01/15/24 01/16/24 01/16/24 18:59 06:59 18:59 Intake Total 1204 0 240 Balance 1204 0 240 Intake: Intake, IV Titration 850 Amount Sodium Chloride 0.9% 1, 800 000 ml @ 100 mls/hr IV . Q10H [facility] Rx#:[id number] cefTRIAXone 1 gm In 50 Sodium Chloride 0.9% 50 ml @ 100 mls/hr IVPB Q24HR [facility] Rx#:[id number] Oral 354 0 240 Other: Voiding Method Toilet Toilet Toilet Urinal Urinal Urinal # Voids 2 2 # Bowel Movements 1 1 - Labs CBC & Chem 7: 01/16/24 08:19 01/16/24 08:19 Labs: Abnormal Lab Results - Last 24 Hours (Table) 01/16/24 01/16/24 Range/Units 08:19 08:19 WBC 11.7 H (3.8-10.6) k/uL RBC 4.08 L (4.30-5.90) m/uL Hgb 12.1 L (13.0-17.5) gm/dL Hct 38.2 L (39.0-53.0) % RDW 15.7 H (11.5-15.5) % Chloride 111 H (98-107) mmol/L BUN 24 H (9-20) mg/dL Glucose 108 H (74-99) mg/dL Calcium 8.3 L (8.4-10.2) mg/dL Creatine Kinase 273 H (55-170) U/L Microbiology - Last 24 Hours (Table) 01/13/24 12:07 Urine Culture - Final Urine,Catheterized Enterococcus faecalis Assessment and Plan Assessment: Assessment and plan S/p fall with rhabdomyolysis Urinary tract infection Acute metabolic encephalopathy with acute delirium Atrial fibrillation with rapid ventricular response history of DVT on Xarelto History of right humerus fracture s/p fixation, impaired fusion History of COPD with exacerbation * Regards to rhabdomyolysis appropriately fluid resuscitation, IV fluid discontinued 01/15 follow-up on CPK levels ending down * In regards to urinary tract infection continue patient on Rocephin on day 4>> , transition to oral antibiotic Keflex to complete total 7-day course * Regards to atrial fibrillation continue anticoagulation with Xarelto, continue rate control medication including metoprolol * Regards to COPD continue patient on breathing treatment continue prednisone, to complete 5-day course * In regards to BPH continue Flomax * Patient work with physical therapy, trying to coordinate with insurance for discharge to rehab, if denied patient would want to go home with home care however family needs to stay with him since patient does get intermittently confused concern for med management Time with Patient: Greater than 30
[2024-01-16 21:25] VITALS: TEMP 98.2
[2024-01-17 08:14] VITALS: BP 136/87; RESP 18
[2024-01-17 08:41] LABS: HCT 43.2 % (39.0-53.0); HGB 13.8 gm/dL (13.0-17.5); Hypochromasia Slight; MCH 30.2 pg (25.0-35.0); MCHC 31.8 g/dL (31.0-37.0); MCV 94.7 fL (80.0-100.0); Mean Platelet Volume 8.3; Platelet Count 251 k/uL (150-450); RBC 4.56 m/uL (4.30-5.90); RDW 15.5 % (11.5-15.5); WBC 14.9 k/uL (3.8-10.6)
[2024-01-17 08:46] VITALS: PULSE 90
[2024-01-17 08:47] LABS: African American GFR (CKD) 82 (>60 ml/min/1.73 sqM); Anion Gap 5 mmol/L; Blood Urea Nitrogen 22 mg/dL (9-20); Calcium 8.7 mg/dL (8.4-10.2); Carbon Dioxide 26 mmol/L (22-30); Chloride 108 mmol/L (98-107); Glucose 93 mg/dL (74-99); Non-African American GFR(CKD) 71 (>60 ml/min/1.73 sqM); Potassium 3.9 mmol/L (3.5-5.1); Sodium 139 mmol/L (137-145)
--- NOTE | 2024-01-17 08:54 | XR ---
EXAMINATION TYPE: XR chest 1V DATE OF EXAM: 01/17/2024 8:35 AM CLINICAL INDICATION:Male, 83 years old with history of sob. COMPARISON: Chest radiographs from 01/12/2024. TECHNIQUE: XR chest 1V Frontal view of the chest. FINDINGS: Lungs/Pleura: There is no evidence of pleural effusion, focal consolidation, or pneumothorax. Pulmonary vascularity: Unremarkable. Heart/mediastinum: Cardiomediastinal silhouette is unremarkable. Musculoskeletal: No acute osseous pathology. Other findings: None IMPRESSION: Stable chronic changes, no evidence for acute heart failure.
[2024-01-17] MEDS: AMOXIC-POT CLAV 875-125MG 1 EACH TAB PO SCH (09:21)
[2024-01-17 11:33] LABS: C Reactive Protein 1.8 mg/dL (<1.0)
--- NOTE | 2024-01-18 00:13 | P.DS ---
Providers Date of admission: 01/12/24 19:48 Attending physician: Yina Fierro Consults: 01/12/24 19:45 Consult Physician Routine Consulting Provider: [facility] Consult Reason/Comments: afib, elevated troponin Do you want consulting provider notified?: Yes Primary care physician: Buzz Zimmerman Hospital Course: Diagnoses: S/p fall with rhabdomyolysis Urinary tract infection, secondary to Enterococcus faecalis sensitive to ampicillin Acute metabolic encephalopathy with acute delirium. Resolved Atrial fibrillation with rapid ventricular response history of DVT on Xarelto History of right humerus fracture s/p fixation, impaired fusion History of COPD with exacerbation Hospital course: 83 years old male with past medical history of multiple medical problems including atrial fibrillation and DVT on a blood thinner, Hearing Disorder / Deafness, Hyperlipidemia, Hypertension, Osteoarthritis (OA), Patient presents because he was on the floor for 2 days. Patient states that his on April 26, 2023, since then he has difficulty taking care of himself. The last few days prior to hospitalization he had tremor in his hands and has been shaking with difficulty walking because of balance problem, because of his tremor he could not call of friend, he ran out of food and drinks for 2 days, eventually he fell on the floor and he had difficult time moving, it took him 2 days to crawl to his cell phone as he has large house about 4000 square feet as per patient, he could manage to call his son who brought him to the emergency room. Patient was found to have elevated creatinine kinase up to 5444 which was improved with IV fluid. Patient was diagnosed with rhabdomyolysis. He was dehydrated and improved with IV fluid. Batch Operator evaluated the patient for A-fib and RVR and elevated troponin and recommended to treat conservatively and cardiology signed off the case. Is on Xarelto at home for his atrial fibrillation and he confirms to me he has Xarelto at home Patient with evidence of UTI. Culture growing Enterococcus faecalis sensitive to amoxicillin and patient was placed on Augmentin with plan to be discharged on short course of oral Augmentin x 5 days. Patient is awake and alert and oriented to time place and person, he has insight and follow commands. He gets little confused over night but improved with orientation most likely secondary to his delirium due to his infection and other medical problems however this morning he is stable. His mentation is back to normal. Get up and go test is normal. Patient evaluated by PT/OT recommended home health care with patient agreed to this plan. Also patient will be discharged on tapered steroids for his acute COPD exacerbation Other than his medically stable hide cardiology signed off the case Patient denies any other new complaint and he confirms he is ready to go home today. Problems and management plan were discussed with the patient and he verbalized understanding and acceptance Patient was found stable and can be discharged home in guarded prognosis however he needs follow-up as an outpatient. Patient was instructed to follow up with PCP Dr. Zimmerman within one week and patient agrees . Patient was instructed to follow-up with portfolio assistant Dr. Davis in 1 to 2 weeks and he agrees. Also patient will follow-up with his orthopedic for his history of right humerus fracture and he already told me he has appointment with them Physical exam Gen: patient is a AAOx3, no distress CVS: S1-S2, RRR, no murmur Lungs: B/L CTA, no wheezing Abdomen: soft, no distention, no tenderness, positive bowel sounds Extremity: no leg edema or induration Time spent more than 35 minutes Patient Condition at Discharge: Stable Plan - Discharge Summary Discharge Rx Participant: No New Discharge Prescriptions: New Amoxic-Pot Clav 875-125Mg [Augmentin 875-125] 1 each PO Q12HR 5 Days #10 tab Famotidine [Pepcid] 20 mg PO BID 15 Days #30 tab Metoprolol Tartrate [Lopressor] 25 mg PO HS #30 tab Metoprolol Tartrate [Lopressor] 50 mg PO DAILY #30 tab predniSONE 10 mg PO DIRECTED #40 tab Continue Rivaroxaban [Xarelto] 20 mg PO HS Tamsulosin HCl [Flomax] 0.4 mg PO HS Fluticasone/Umeclidin/Vilanter [Trelegy Ellipta 200-62.5-25] 1 puff INHALATION RT-DAILY Isosorbide Mononitrate ER [Imdur] 30 mg PO DAILY Ezetimibe [Zetia] 10 mg PO DAILY Sennosides [Senokot] 8.6 mg PO DAILY PRN tab PRN Reason: Constipation Venlafaxine HCl [Effexor XR] 75 mg PO HS Albuterol Sulfate [Albuterol Sulfate Hfa] 1 puff PO RT-Q4H PRN PRN Reason: Shortness Of Breath Fluticasone Nasal [place] [Flonase Nasal [place]] 1 spray EA NOSTRIL BID PRN PRN Reason: Allergy Symptoms Atorvastatin [Lipitor] 40 mg PO HS Levocetirizine Dihydrochloride [Xyzal] 5 mg PO HS Amiodarone [Cordarone] 100 mg PO HS Discontinued Metoprolol Tartrate 25 mg PO BID Discharge Medication List Rivaroxaban [Xarelto] 20 mg PO HS 05/29/18 [History] Tamsulosin HCl [Flomax] 0.4 mg PO HS 05/29/18 [History] Albuterol Sulfate [Albuterol Sulfate Hfa] 1 puff PO RT-Q4H PRN 10/07/21 [History] Fluticasone Nasal [place] [Flonase Nasal [place]] 1 spray EA NOSTRIL BID PRN 06/02/22 [History] Fluticasone/Umeclidin/Vilanter [Trelegy Ellipta 200-62.5-25] 1 puff INHALATION RT-DAILY 09/07/23 [History] Atorvastatin [Lipitor] 40 mg PO HS 10/16/23 [History] Ezetimibe [Zetia] 10 mg PO DAILY 10/16/23 [History] Isosorbide Mononitrate ER [Imdur] 30 mg PO DAILY 10/16/23 [History] Levocetirizine Dihydrochloride [Xyzal] 5 mg PO HS 10/16/23 [History] Sennosides [Senokot] 8.6 mg PO DAILY PRN tab 10/17/23 [Rx] Amiodarone [Cordarone] 100 mg PO HS 01/12/24 [History] Venlafaxine HCl [Effexor XR] 75 mg PO HS 01/12/24 [History] Amoxic-Pot Clav 875-125Mg [Augmentin 875-125] 1 each PO Q12HR 5 Days #10 tab 01/17/24 [Rx] Famotidine [Pepcid] 20 mg PO BID 15 Days #30 tab 01/17/24 [Rx] Metoprolol Tartrate [Lopressor] 25 mg PO HS #30 tab 01/17/24 [Rx] Metoprolol Tartrate [Lopressor] 50 mg PO DAILY #30 tab 01/17/24 [Rx] predniSONE 10 mg PO DIRECTED #40 tab 01/17/24 [Rx] Follow up Appointment(s)/Referral(s): [facility], [NON-STAFF] - George Davis MD [STAFF PHYSICIAN] - 01/25/24 9:45 am Terry Alvarez DO [Doctor of Osteopathic Medicine] - 01/22/24 11:45 am (your orthopedic doctor ) Buzz Zimmerman MD [Primary Care Provider] - 02/16/24 11:15 am Activity/Diet/Wound Care/Special Instructions: Home Care arranged - must go to follow up appointment at Dr. Zimmerman's office before home care can begin - appt scheduled for this Monday01/19/24 @1115 with his nurse practitioner [facility] - [phone] Ext [id number] [place] [employer] [facility] - for meals on wheels - [phone] Discharge Disposition: HOME WITH HOME HEALTH SERVICES
== END 2024-01-17 12:08 | disposition home health service (06) | DRG 564 ==
LOC: EC 16:08 → 3SCARD 19:48
PROVIDERS: ADMIT Hospitalist; ATTEND Hospitalist
DX: T79.6XXA Traumatic ischemia of muscle, initial encounter (principal); G93.41 Metabolic encephalopathy; I48.19 Other persistent atrial fibrillation; F05 Delirium due to known physiological condition; J44.1 Chronic obstructive pulmonary disease with (acute) exacerbation; S42.3 Fracture of shaft of humerus; N39.0 Urinary tract infection, site not specified; R54 Age-related physical debility; I47.9 Paroxysmal tachycardia, unspecified; I10 Essential (primary) hypertension; E86.0 Dehydration; B95.2 Enterococcus as the cause of diseases classified elsewhere; E78.5 Hyperlipidemia, unspecified; Z74.2 Need for assistance at home and no other household member able to render care; N40.1 Benign prostatic hyperplasia with lower urinary tract symptoms; H91.93 Unspecified hearing loss, bilateral; T50.916A Underdosing of multiple unspecified drugs, medicaments and biological substances, initial encounter; R25.1 Tremor, unspecified; R29.6 Repeated falls; R31.9 Hematuria, unspecified; R39.11 Hesitancy of micturition; W18.30XA Fall on same level, unspecified, initial encounter; Y92.009 Unspecified place in unspecified non-institutional (private) residence as the place of occurrence of the external cause; Z96.653 Presence of artificial knee joint, bilateral; Z96.642 Presence of left artificial hip joint; Z87.891 Personal history of nicotine dependence; Z91.130 Patient's unintentional underdosing of medication regimen due to age-related debility; Z11.52 Encounter for screening for COVID-19; Z79.899 Other long term (current) drug therapy; Z79.01 Long term (current) use of anticoagulants; Z86.718 Personal history of other venous thrombosis and embolism; Z79.51 Long term (current) use of inhaled steroids; Z88.8 Allergy status to other drugs, medicaments and biological substances; Z97.4 Presence of external hearing-aid; Z91.81 History of falling; Z63.4 Disappearance and death of family member
CPT/HCPCS: 36415; 51702; 51798; 70450; 71045; 71046; 76770; 80048; 80053; 81001; 82550; 82607; 82746; 83605; 83735; 84145; 84443; 84484; 85025; 85027; 85610; 85730; 86140; 87077; 87086; 87186; 87636; 93005; 94640; 94760; 96361; 96374; 99285

== ENCOUNTER → 2024-02-22 | Outpatient (CLI) | payer MEDICARE ==
--- NOTE | 2024-02-22 15:52 | XR ---
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 FINDINGS: No evidence of any acute osseous pathology. No evidence of loss of vertebral body height i s seen. There is grade 1 anterolisthesis of L4 and L5 alignment of the lumbar vertebral bodies. Mild scattered disc space narrowing. Multilevel marginal osteophyte formation throughout the visualized sp ine. There is facet joint arthropathy throughout the spine. Scattered at least mild neural foraminal stenosis. Hip arthroplasty changes partially visualized. IMPRESSION: 1. No acute fracture. 2. Moderate multilevel disc degeneration.
== END | disposition home or self-care (01) ==
LOC: RADXRMAIN 14:45
PROVIDERS: ATTEND Internal Medicine
DX: M51.36 Other intervertebral disc degeneration, lumbar region (principal); M47.16 Other spondylosis with myelopathy, lumbar region
CPT/HCPCS: 72100

== ENCOUNTER 2024-03-22 09:57 | Inpatient (IN) | payer MEDICARE ==
--- NOTE | 2024-03-22 10:22 | ED ---
General Adult HPI - General Chief complaint: Shortness of Breath Stated complaint: Afib,VIOLETA Time Seen by Provider: 03/22/24 10:00 Source: EMS, RN notes reviewed, old records reviewed Mode of arrival: EMS Limitations: no limitations - History of Present Illness Initial comments: This is an 83-year-old male who presents to the emergency department complaining of difficulty breathing. Patient went to see his doctor doctor and he was having such a hard time breathing a [facility] emergency department immediately. Patient states has been coughing for the last few days. Patient states last time he had RSV had to be intubated. Patient also has a history of atrial fibrillation is on Xarelto. Patient is extremely hard of hearing. Patient denies any chest pain or abdominal pain. Patient denies any lightheadedness or dizziness. Patient's complaint is that he has a significant cough and short of breath. Patient denies any increased swelling to the legs or any calf tenderness. - Related Data Home Medications Medication Instructions Recorded Confirmed Rivaroxaban [Xarelto] 20 mg PO HS 05/29/18 03/22/24 Tamsulosin HCl [Flomax] 0.4 mg PO HS 05/29/18 03/22/24 Albuterol Sulfate [Albuterol 1 puff PO RT-Q4H PRN 10/07/21 03/22/24 Sulfate Hfa] Fluticasone Nasal [place] [Flonase 1 spray EA NOSTRIL BID PRN 06/02/22 03/22/24 Nasal [place]] Fluticasone/Umeclidin/Vilanter 1 puff INHALATION RT-DAILY 09/07/23 03/22/24 [[place] 200-62.5-25] Atorvastatin [Lipitor] 40 mg PO HS 10/16/23 03/22/24 Ezetimibe [Zetia] 10 mg PO DAILY 10/16/23 03/22/24 Levocetirizine Dihydrochloride 5 mg PO HS 10/16/23 03/22/24 [Xyzal] Venlafaxine HCl [Effexor XR] 75 mg PO HS 01/12/24 03/22/24 Previous Rx's Medication Instructions Recorded Metoprolol Tartrate [Lopressor] 25 mg PO HS #30 tab 01/17/24 Metoprolol Tartrate [Lopressor] 50 mg PO DAILY #30 tab 01/17/24 Allergies Allergy/AdvReac Type Severity Reaction Status Date / Time rosuvastatin [From Crestor] AdvReac muscle Verified 03/22/24 10:35 soreness/cramps Review of Systems ROS Statement: Those systems with pertinent positive or pertinent negative responses have been documented in the HPI. ROS Other: All systems not noted in ROS Statement are negative. Past Medical History Past Medical History: Atrial Fibrillation, Asthma, Deep Vein Thrombosis (DVT), Hearing Disorder / Deafness, Hyperlipidemia, Hypertension, Osteoarthritis (OA), Pneumonia, Renal Disease Additional Past Medical History / Comment(s): Hx pneumonia yrs ago, RSV/ hospitalized x 2 weeks in ICU, dvt R calf, hiatal hernia, hx kidney stones, [place] use of bilateral hearing aids. History of Any Multi-Drug Resistant Organisms: None Reported Past Surgical History: Joint Replacement Additional Past Surgical History / Comment(s): Bilateral knee replacements., total L hip arthroplasty, LIS and cardioversions Past Anesthesia/Blood Transfusion Reactions: No Reported Reaction Past Psychological History: Depression Smoking Status: Never smoker Past Alcohol Use History: Occasional Past Drug Use History: None Reported - Past Family History Mother Family Medical History: No Reported History General Exam - General Exam Comments Initial Comments: GENERAL: Patient is well-developed and well-nourished. Patient is nontoxic and well- hydrated and is in mild distress. ENT: Neck is soft and supple. No significant lymphadenopathy is noted. Oropharynx is clear. Moist mucous membranes. Neck has full range of motion without eliciting any pain. EYES: The sclera were anicteric and conjunctiva were pink and moist. Extraocular movements were intact and pupils were equal round and reactive to light. Eyelids were unremarkable. PULMONARY: Unlabored respirations. Occasional expiratory wheeze. Crackles in the right base CARDIOVASCULAR: Patient is tachycardic at about 130 beats a minute and it is irregular ABDOMEN: Soft and nontender with normal bowel sounds. No palpable organomegaly was noted. There is no palpable pulsatile mass. SKIN: Skin is clear with no lesions or rashes and otherwise unremarkable. NEUROLOGIC: Patient is alert and oriented x3. Cranial nerves II through XII are grossly intact. Motor and sensory are also intact. Normal speech, volume and content. Symmetrical smile. MUSCULOSKELETAL: Normal extremities with adequate strength and full range of motion. LYMPHATICS: No significant lymphadenopathy is noted PSYCHIATRIC: Normal psychiatric evaluation. Limitations: no limitations Course Vital Signs 05/03/24 05/03/24 05/03/24 09:59 10:15 10:31 Temperature 99.6 F Pulse Rate 93 135 H Pulse Rate [ 130 H Pulse Oximetery ] Respiratory 24 20 Rate Blood Pressure 111/76 98/73 O2 Sat by Pulse 94 L 94 L Oximetry 03/22/24 03/22/24 03/22/24 10:55 11:15 11:51 Temperature 99.6 F Pulse Rate 123 H 123 H 122 H Pulse Rate [ Pulse Oximetery ] Respiratory 20 Rate Blood Pressure 115/75 O2 Sat by Pulse 94 L Oximetry 03/22/24 12:00 Temperature Pulse Rate 113 H Pulse Rate [ Pulse Oximetery ] Respiratory 20 Rate Blood Pressure 130/82 O2 Sat by Pulse 91 L Oximetry Medical Decision Making - Medical Decision Making EKG is interpreted by myself. EKG shows atrial fibrillation with rapid ventricular response at 139 bpm QRS is 118 QT interval 335 QTc is 416. Patient EKG shows no ST segment elevation. Was pt. sent in by a medical professional or institution (, PA, BEHAVIORAL HEALTH CLINICIAN, urgent care, hospital, or halfway...) When possible be specific @ -Dr. Zimmerman sent the patient to the emergency department Did you speak to anyone other than the patient for history (EMS, parent, family, police, friend...)? What history was obtained from this source @ -[No] Did you review nursing and triage notes (agree or disagree)? Why? @ -[I reviewed and agree with nursing and triage notes] Were old charts reviewed (outside hosp., previous admission, EMS record, old EKG, old radiological studies, urgent care reports/EKG's, halfway records)? Report findings @ -I compared this chest x-ray with the previous chest x-ray there is some atelectasis in the bilateral bases. Differential Diagnosis (chest pain, altered mental status, abdominal pain women, abdominal pain men, vaginal bleeding, weakness, fever, dyspnea, syncope, headache, dizziness, GI bleed, back pain, seizure, CVA, palpatations, mental health, musculoskeletal)? @ -Differential Dyspnea: Coronary syndrome, arrhythmia, tamponade, asthma, COPD, pulmonary embolism, pneumonia, pneumothorax, pulmonary effusion, anaphylaxis, diabetic ketoacidosis, flailed chest, pulmonary contusion, diaphragmatic rupture, anemia, neuromuscular, this is not meant to be an all-inclusive list. EKG interpreted by me (3pts min.). @ -[As above] X-rays interpreted by me (1pt min.). @ -Chest x-ray showed atelectasis bilateral bases CT interpreted by me (1pt min.). @ -[None done] U/S interpreted by me (1pt. min.). @ -[None done] What testing was considered but not performed or refused? (CT, X-rays, U/S, labs)? Why? @ -[None] What meds were considered but not given or refused? Why? @ -[None] Did you discuss the management of the patient with other professionals (professionals i.e. , PA, BEHAVIORAL HEALTH CLINICIAN, lab, RT, psych nurse, director social, ferry pilot, teacher, zoology technical officer, manager case)? Give summary @ -I spoke with Dr. Zimmerman and he agreed to admit the patient admit the patient wrote admitting orders Was smoking cessation discussed for >3mins.? @ -[No] Was critical care preformed (if so, how long)? @ -35 minutes Were there social determinants of health that impacted care today? How? (Homelessness, low income, unemployed, alcoholism, drug addiction, transportation, low edu. Level, literacy, decrease access to med. care, intermediate, rehab)? @ -[No] Was there de-escalation of care discussed even if they declined (Discuss DNR or withdrawal of care, Hospice)? DNR status @ -[No] What co-morbidities impacted this encounter? (DM, HTN, Smoking, COPD, CAD, Cancer, CVA, ARF, Chemo, Hep., AIDS, mental health diagnosis, sleep apnea, mor bid obesity)? @ -[None] Was patient admitted / discharged? Hospital course, mention meds given and r oute, prescriptions, significant lab abnormalities, going to OR and other pertinent info. @ -Patient was started on Cardizem and given a Cardizem bolus. Patient's heart rate slowed down nicely. Patient was also given some Lasix after initial fluid bolus for the tentative blood pressure. I admitted the patient to Dr. Zimmerman and I consulted cardiology and Dr. Welsh. Undiagnosed new problem with uncertain prognosis? @ -[No] Drug Therapy requiring intensive monitoring for toxicity (Heparin, Nitro, Insulin, Cardizem)? @ -[No] Were any procedures done? @ -[No] Diagnosis/symptom? @ -A-fib with rapid ventricular response Acute, or Chronic, or Acute on Chronic? @ -Acute Uncomplicated (without systemic symptoms) or Complicated (systemic symptoms)? @ -Complicated Side effects of treatment? @ -[No] Exacerbation, Progression, or Severe Exacerbation? @ -[No] Poses a threat to life or bodily function? How? (Chest pain, [place], [place], pneumonia, PE, COPD, DKA, ARF, appy, cholecystitis, CVA, Diverticulitis, Homicidal, Suicidal, threat to staff... and all critical care pts) @ -Yes this can lead to poor perfusion and endorgan dysfunction - Lab Data Result diagrams: 03/22/24 10:25 03/22/24 10:25 Lab Results 03/22/24 03/22/24 03/22/24 Range/Units 10:25 10:25 10:25 WBC 5.6 (3.8-10.6) k/uL RBC 4.77 (4.30-5.90) m/uL Hgb 14.3 (13.0-17.5) gm/dL Hct 44.6 (39.0-53.0) % MCV 93.4 (80.0-100.0) fL MCH 30.0 (25.0-35.0) pg MCHC 32.1 (31.0-37.0) g/dL RDW 15.8 H (11.5-15.5) % Plt Count 163 (150-450) k/uL MPV 7.8 Neutrophils % 68 % Lymphocytes % 16 % Monocytes % 11 % Eosinophils % 1 % Basophils % 1 % Neutrophils # 3.8 (1.3-7.7) k/uL Lymphocytes # 0.9 L (1.0-4.8) k/uL Monocytes # 0.6 (0-1.0) k/uL Eosinophils # 0.0 (0-0.7) k/uL Basophils # 0.0 (0-0.2) k/uL PT 13.2 H (10.0-12.5) sec INR 1.3 H (<1.2) APTT 26.0 (22.0-30.0) sec Sodium 137 (137-145) mmol/L Potassium 4.0 (3.5-5.1) mmol/L Chloride 107 (98-107) mmol/L Carbon Dioxide 19 L (22-30) mmol/L Anion Gap 11 mmol/L BUN 19 (9-20) mg/dL Creatinine 1.03 (0.66-1.25) mg/dL Est GFR (CKD-EPI)AfAm 79 (>60 ml/min/1.73 sqM) Est GFR (CKD-EPI)NonAf 68 (>60 ml/min/1.73 sqM) Glucose 115 H (74-99) mg/dL Plasma Lactic Acid Efren (0.7-2.0) mmol/L Calcium 8.3 L (8.4-10.2) mg/dL Magnesium 1.7 (1.6-2.3) mg/dL Total Bilirubin 1.1 (0.2-1.3) mg/dL AST 30 (17-59) U/L ALT 18 (4-49) U/L Alkaline Phosphatase 106 (38-126) U/L Troponin I (0.000-0.034) ng/mL NT-Pro-B Natriuret Pep 1230 pg/mL Total Protein 5.9 L (6.3-8.2) g/dL Albumin 3.5 (3.5-5.0) g/dL Influenza Type A (PCR) (Not Detectd) Influenza Type B (PCR) (Not Detectd) RSV (PCR) (Not Detectd) SARS-CoV-2 (PCR) (Not Detectd) 03/22/24 03/22/24 03/22/24 Range/Units 10:25 10:25 10:25 WBC (3.8-10.6) k/uL RBC (4.30-5.90) m/uL Hgb (13.0-17.5) gm/dL Hct (39.0-53.0) % MCV (80.0-100.0) fL MCH (25.0-35.0) pg MCHC (31.0-37.0) g/dL RDW (11.5-15.5) % Plt Count (150-450) k/uL MPV Neutrophils % % Lymphocytes % % Monocytes % % Eosinophils % % Basophils % % Neutrophils # (1.3-7.7) k/uL Lymphocytes # (1.0-4.8) k/uL Monocytes # (0-1.0) k/uL Eosinophils # (0-0.7) k/uL Basophils # (0-0.2) k/uL PT (10.0-12.5) sec INR (<1.2) APTT (22.0-30.0) sec Sodium (137-145) mmol/L Potassium (3.5-5.1) mmol/L Chloride (98-107) mmol/L Carbon Dioxide (22-30) mmol/L Anion Gap mmol/L BUN (9-20) mg/dL Creatinine (0.66-1.25) mg/dL Est GFR (CKD-EPI)AfAm (>60 ml/min/1.73 sqM) Est GFR (CKD-EPI)NonAf (>60 ml/min/1.73 sqM) Glucose (74-99) mg/dL Plasma Lactic Acid Efren 3.0 H* (0.7-2.0) mmol/L Calcium (8.4-10.2) mg/dL Magnesium (1.6-2.3) mg/dL Total Bilirubin (0.2-1.3) mg/dL AST (17-59) U/L ALT (4-49) U/L Alkaline Phosphatase (38-126) U/L Troponin I 0.022 (0.000-0.034) ng/mL NT-Pro-B Natriuret Pep pg/mL Total Protein (6.3-8.2) g/dL Albumin (3.5-5.0) g/dL Influenza Type A (PCR) Not Detected (Not Detectd) Influenza Type B (PCR) Not Detected (Not Detectd) RSV (PCR) Not Detected (Not Detectd) SARS-CoV-2 (PCR) Not Detected (Not Detectd) Disposition Clinical Impression: Atrial fibrillation with rapid ventricular response Disposition: ADMITTED IP TO THIS HOSP Referrals: Buzz Zimmerman MD [Primary Care Provider] - 1-2 days Time of Disposition: 12:31
[2024-03-22] MEDS: ALBUTEROL NEBULIZED 2.5 MG/3 ML INHALATION STA (10:54)
[2024-03-22] MEDS: IPRATROPIUM 0.5 MG/2.5 ML NEBU INHALATION STA (10:54)
[2024-03-22 10:55] LABS: Basophils % (A) 1 %; Eosinophils % (A) 1 %; HCT 44.6 % (39.0-53.0); HGB 14.3 gm/dL (13.0-17.5); Lymphocytes # (A) 0.9 k/uL (1.0-4.8); Lymphocytes % (A) 16 %; MCHC 32.1 g/dL (31.0-37.0); MCV 93.4 fL (80.0-100.0); Mean Platelet Volume 7.8; Monocytes # (A) 0.6 k/uL (0-1.0); Monocytes % (A) 11 %; Neutrophils # (A) 3.8 k/uL (1.3-7.7); Neutrophils % (A) 68 %; Platelet Count 163 k/uL (150-450); RBC 4.77 m/uL (4.30-5.90); RDW 15.8 % (11.5-15.5); WBC 5.6 k/uL (3.8-10.6)
[2024-03-22 10:58] LABS: INR 1.3 (<1.2); Prothrombin Time 13.2 sec (10.0-12.5)
[2024-03-22 11:01] LABS: ALT 18 U/L (4-49); AST 30 U/L (17-59); African American GFR (CKD) 79 (>60 ml/min/1.73 sqM); Albumin 3.5 g/dL (3.5-5.0); Alkaline Phosphatase 106 U/L (38-126); Anion Gap 11 mmol/L; Blood Urea Nitrogen 19 mg/dL (9-20); Calcium 8.3 mg/dL (8.4-10.2); Carbon Dioxide 19 mmol/L (22-30); Chloride 107 mmol/L (98-107); Glucose 115 mg/dL (74-99); Magnesium 1.7 mg/dL (1.6-2.3); Non-African American GFR(CKD) 68 (>60 ml/min/1.73 sqM); Sodium 137 mmol/L (137-145); Total Bilirubin 1.1 mg/dL (0.2-1.3); Total Protein 5.9 g/dL (6.3-8.2)
[2024-03-22] MEDS: cefTRIAXone IN SWFI 1,000 MG/10 ML SYRINGE IVP STA (11:04)
--- NOTE | 2024-03-22 11:05 | XR ---
EXAMINATION TYPE: XR chest 2V DATE OF EXAM: 03/22/2024 COMPARISON: 01/17/2024 TECHNIQUE: PA and lateral views submitted. HISTORY: Cough FINDINGS: A bilateral consolidation. Elevated left hemidiaphragm. No pneumothorax. Diffuse osteopenia and arthr opathy of the shoulders. Size is mildly enlarged. IMPRESSION: 1. Bilateral lower lobe infiltrate or atelectasis.
[2024-03-22 11:09] LABS: NT-Pro-B-Type Natriuretic Pept 1230 pg/mL
[2024-03-22] MEDS: SODIUM CHLORIDE 0.9% 500 ML 500 ML IV STA (11:17)
[2024-03-22] MEDS: methylPREDNISolone SOD SUCCI 125 MG/2 ML VIAL IV STA (11:48)
[2024-03-22] MEDS: FUROSEMIDE 10 MG/ML 4 ML VIAL IV STA (11:49)
[2024-03-22] MEDS ORDERED: NITROGLYCERIN SL TABS 0.4 MG TAB SUBLINGUAL PRN (12:31)
[2024-03-22] MEDS ORDERED: ALBUTEROL HFA INHALER INHALATION PRN (13:12)
[2024-03-22] MEDS ORDERED: FLUTICASONE 50MCG/SPRAY NASAL 16GM EA NOSTRIL PRN (13:12)
--- NOTE | 2024-03-22 14:45 | P.CRDCN ---
History of Present Illness History of present illness: HISTORY OF PRESENT ILLNESS: This is a 83-year-old male with a past medical history significant for coronary artery disease, atrial fibrillation, hypertension, hyperlipidemia, peripheral v ascular disease and asthma. Patient follows in the office with Dr. Davis. We have been asked to see the patient in consultation for A-fib with RVR. Patient examined at the bedside in the emergency room. Patient states he started feeling short of breath last Monday and it has progressively gotten worse. He does report having a frequent nonproductive cough. He denies any chest pain or pressure. No swelling in his legs or weight gain. He denies having any palpitations. Denied any fever or chills. Patient was found to be in A-fib with RVR upon presentation to the emergency room. Upon examination, the patient remains in atrial fibrillation with a heart rate around 120. DIAGNOSTICS: - EKG reveals atrial fibrillation with RVR. - Chest xray bilateral lower lobe infiltrate or atelectasis - Laboratory data: WBC 5.6. Hemoglobin 14.3. Platelet count 163. Sodium 137. Potassium 4.0. BUN 19. Creatinine 1.03. Lactic acid 3.0. Troponin negative x 2. proBNP 1230. - Current home cardiac medications include Xarelto 20 mg at night, metoprolol tartrate 50 mg in the morning and 25 mg in the evening, Zetia 10 mg daily, Lipitor 40 mg at night. - Most recent echocardiogram obtained in July 2023 revealed normal EF, moderate MR, mild AR, mild TR - Cardiac catheterization history: August 2023 revealing 20% distal left main, 20% proximal LAD, 20% proximal circumflex, 20% mid RCA. Right dominant system. REVIEW OF SYSTEMS: At the time of my exam: CONSTITUTIONAL: Denies fever or chills. HEENT: Denies blurred vision, vision changes, or eye pain. Denies hemoptysis CARDIOVASCULAR: Denies chest pain. Denies orthopnea. Denies PND. Denies palpitations RESPIRATORY: Reports shortness of breath. GASTROINTESTINAL: Denies abdominal pain. Denies nausea or vomiting. HEMATOLOGIC: Denies bleeding disorders. GENITOURINARY: Denies any blood in urine. SKIN: Denies pruitis. Denies rash. PHYSICAL EXAM: VITAL SIGNS: Reviewed. GENERAL: Well-developed in no acute distress. HEENT: Head is normocephalic. Pupils are equal, round. Sclerae anicteric. Mucous membranes of the mouth are moist. Neck supple. No JVD or thyromegaly LUNGS: Respirations even and unlabored. Lungs with bilateral crackles HEART: Tachycardic. Irregular rate and rhythm. S1 and S2 heard. ABDOMEN: Soft. Nondistended. Nontender. EXTREMITIES: Normal range of motion. No clubbing or cyanosis. Peripheral pulses intact. No lower extremity edema NEUROLOGIC: Awake and alert. Oriented x 3. ASSESSMENT: Progressive dyspnea likely stemming from asthma exacerbation Persistent atrial fibrillation with RVR Bilateral lower lobe infiltrate or atelectasis, per CXR Elevated lactic acid Nonobstructive coronary artery disease Hypertension Hyperlipidemia Peripheral vascular disease History of asthma PLAN: Obtain 2D echo to assess cardiac structure and function Resume home cardiac medications Add Cardizem 30 mg 3 times daily for optimal heart rate control May continue IV diuretics for additional 24 hours Continue telemetry monitoring Further recommendations pending patient course Nurse practitioner note has been reviewed by physician. Signing provider agrees with the documented findings, assessment, and plan of care documented by DIRECTOR OF PLANT OPERATIONS as a scribe. Past Medical History Past Medical History: Atrial Fibrillation, Asthma, Deep Vein Thrombosis (DVT), Hearing Disorder / Deafness, Hyperlipidemia, Hypertension, Osteoarthritis (OA), Pneumonia, Renal Disease Additional Past Medical History / Comment(s): Hx pneumonia yrs ago, RSV/ hospitalized x 2 weeks in ICU, dvt R calf, hiatal hernia, hx kidney stones, [place] use of bilateral hearing aids. History of Any Multi-Drug Resistant Organisms: None Reported Past Surgical History: Joint Replacement Additional Past Surgical History / Comment(s): Bilateral knee replacements., total L hip arthroplasty, LIS and cardioversions Past Anesthesia/Blood Transfusion Reactions: No Reported Reaction Past Psychological History: Depression Smoking Status: Never smoker Past Alcohol Use History: Occasional Past Drug Use History: None Reported - Past Family History Mother Family Medical History: No Reported History Medications and Allergies Home Medications Medication Instructions Recorded Confirmed Type Rivaroxaban [Xarelto] 20 mg PO HS 05/29/18 03/22/24 History Tamsulosin HCl [Flomax] 0.4 mg PO HS 05/29/18 03/22/24 History Albuterol Sulfate [Albuterol 1 puff PO RT-Q4H PRN 10/07/21 03/22/24 History Sulfate Hfa] Fluticasone Nasal [place] [Flonase 1 spray EA NOSTRIL BID PRN 06/02/22 03/22/24 History Nasal [place]] Fluticasone/Umeclidin/Vilanter 1 puff INHALATION RT-DAILY 09/07/23 03/22/24 History [[place] Ellipta 200-62.5-25] Atorvastatin [Lipitor] 40 mg PO HS 10/16/23 03/22/24 History Ezetimibe [Zetia] 10 mg PO DAILY 10/16/23 03/22/24 History Levocetirizine Dihydrochloride 5 mg PO HS 10/16/23 03/22/24 History [Xyzal] Venlafaxine HCl [Effexor XR] 75 mg PO HS 01/12/24 03/22/24 History Metoprolol Tartrate [Lopressor] 25 mg PO HS #30 tab 01/17/24 03/22/24 Rx Metoprolol Tartrate [Lopressor] 50 mg PO DAILY #30 tab 01/17/24 03/22/24 Rx Allergies Allergy/AdvReac Type Severity Reaction Status Date / Time rosuvastatin [From Crestor] AdvReac muscle Verified 03/22/24 10:35 soreness/cramps Physical Exam Vitals: Vital Signs Temp Pulse Pulse Resp BP Pulse Ox 03/22/24 12:47 117 H 20 143/96 94 L 03/22/24 12:00 113 H 20 130/82 91 L 03/22/24 11:51 99.6 F 122 H 20 115/75 94 L 03/22/24 11:15 123 H 03/22/24 10:55 123 H 03/22/24 10:31 135 H 20 98/73 94 L 03/22/24 10:15 130 H 03/22/24 09:59 99.6 F 93 24 111/76 94 L Intake and Output 03/21/24 03/22/24 03/22/24 22:59 06:59 14:59 Other: Weight 104.326 kg Results 03/22/24 10:25 03/22/24 10:25 Cardiac Enzymes 03/22/24 03/22/24 03/22/24 Range/Units 10:25 10:25 12:55 AST 30 (17-59) U/L Troponin I 0.022 0.022 (0.000-0.034) ng/mL Coagulation 03/22/24 Range/Units 10:25 PT 13.2 H (10.0-12.5) sec APTT 26.0 (22.0-30.0) sec CBC 03/22/24 Range/Units 10:25 WBC 5.6 (3.8-10.6) k/uL RBC 4.77 (4.30-5.90) m/uL Hgb 14.3 (13.0-17.5) gm/dL Hct 44.6 (39.0-53.0) % Plt Count 163 (150-450) k/uL Comprehensive Metabolic Panel 03/22/24 Range/Units 10:25 Sodium 137 (137-145) mmol/L Potassium 4.0 (3.5-5.1) mmol/L Chloride 107 (98-107) mmol/L Carbon Dioxide 19 L (22-30) mmol/L BUN 19 (9-20) mg/dL Creatinine 1.03 (0.66-1.25) mg/dL Glucose 115 H (74-99) mg/dL Calcium 8.3 L (8.4-10.2) mg/dL AST 30 (17-59) U/L ALT 18 (4-49) U/L Alkaline Phosphatase 106 (38-126) U/L Total Protein 5.9 L (6.3-8.2) g/dL Albumin 3.5 (3.5-5.0) g/dL Current Medications Generic Name Dose Route Start Last Admin Trade Name Freq PRN Reason Stop Dose Admin Albuterol Sulfate 1 puff 03/22/24 13:12 Albuterol Hfa Inhaler INHALATION RT-Q4H PRN Shortness Of Breath Atorvastatin Calcium 40 mg 03/22/24 21:00 Atorvastatin 40 Mg Tab PO HS [facility] Budesonide/Formoterol Fumarate 2 puff 03/22/24 20:00 Symbicort 160-4.5 Mcg Inhaler INHALATION RT-BID [facility] Ezetimibe 10 mg 03/23/24 09:00 Ezetimibe 10 Mg Tab PO DAILY [facility] Fluticasone Propionate 1 spray 03/22/24 13:12 Fluticasone 50mcg/[place] Nasal 16gm EA NOSTRIL BID PRN Allergy Symptoms Furosemide 20 mg 03/22/24 21:00 Furosemide 10 Mg/Ml 2 Ml Vial IV Q12HR [facility] Ipratropium [place] 0.5 mg 03/23/24 08:00 Ipratropium 0.5 Mg/2.5 Ml Nebu INHALATION RT-QID BRIANA Loratadine 10 mg 03/22/24 21:00 Loratadine 10 Mg Tab PO HS [facility] Metoprolol Tartrate 25 mg 03/22/24 21:00 Metoprolol Tartrate 25 Mg Tab PO HS [facility] Metoprolol Tartrate 50 mg 03/23/24 09:00 Metoprolol Tartrate 50 Mg Tab PO DAILY BRIANA Nitroglycerin 0.4 mg 03/22/24 12:31 Nitroglycerin Sl Tabs 0.4 Mg Tab SUBLINGUAL Q5M PRN Chest Pain Pantoprazole Sodium 40 mg 03/23/24 07:30 Pantoprazole 40 Mg Tablet PO AC-BRKFST [facility] Rivaroxaban 20 mg 03/22/24 21:00 Rivaroxaban 20 Mg Tab PO HS [facility] Protocol Tamsulosin HCl 0.4 mg 03/22/24 21:00 Tamsulosin 0.4 Mg Cap.Er.24h PO HS [facility] Venlafaxine HCl 75 mg 03/22/24 21:00 Venlafaxine Hcl Er 75 Mg Cap PO HS [facility] Intake and Output 03/21/24 03/22/24 03/22/24 22:59 06:59 14:59 Other: Weight 104.326 kg Patient Weight 03/23/24 06:59 Weight 104.326 kg 03/22/24 10:25 03/22/24 10:25
--- NOTE | 2024-03-22 16:13 | P.CNPUL ---
History of Present Illness Consult date: 03/22/24 Reason for consult: dyspnea History of present illness: 83-year-old male patient came into the emergency department today with symptoms of shortness of breath progressively getting worse. He also had some nonproductive cough. Denies having any chest pain. No swelling lower extremities. He was found to be in A-fib RVR at the time of presentation to the emergency department. Patient is known to have coronary artery disease and chronic atrial fibrillation. The patient is also known to have hypertension hyperlipidemia peripheral vascular disease and history of bronchial asthma. His chest x-ray showed some limited left lower lobe atelectatic change. EKG was consistent with A-fib RVR. WBC count of 5.6 with a hemoglobin of 14 and a platelet count of 163. Creatinine was at 1.03 with a BUN of 19. Troponin was negative x 2 and proBNP level was 1230. The patient is known to have a preserved LV function based on a previous echocardiogram from July 2023 with moderate MR, mild AR and mild TR. Last cardiac catheterization was in August 2023 and the patient was found to have 20% left main, 20% LAD, 20% circumflex and 20% RCA lesion. The patient was accordingly hospitalized. Currently is on anticoagulation with Xarelto. He is also on oral Cardizem at 30 mg 3 times daily and is also on metoprolol 25 mg at bedtime and 50 mg in the morning. His current heart rate is around 117. BP is stable and the patient is currently on liters of oxygen by nasal cannula with a pulse ox of 94%. The rest spirometry that was done back in 2016 showed an FEV1 of 77% of predicted. The patient has remote history of DVT, and degenerative arthritis in addition. His last hospitalization was in December 2022 and at that time the patient had rhabdomyolysis related to a fall and a urine tract infection with Enterococcus faecalis treated with penicillins. He also developed encephalopathy at that time which essentially recovered. He is known to have mild COPD maintained on Trelegy Ellipta on outpatient basis. He is currently off amiodarone. Review of Systems Constitutional: No fever, no chills, no night sweats. No weight change. Reports weakness, Reports fatigue Reports lethargy. No daytime sleepiness. EENT: No headache. No blurred vision or double vision, no loss of vision. No loss of Hearing, no ringing in the ears, no dizziness. No nasal drainage or congestion. No epistaxis. No sore throat. Lungs: Reports shortness of breath, Reports cough, Reports sputum production. Reports wheezing. Cardiovascular: No chest pain, no lower extremity edema. No palpitations. No paroxysmal nocturnal dyspnea. No orthopnea. No lightheadedness or dizziness. No syncopal episodes. Abdominal: No abdominal pain. No nausea, vomiting. No diarrhea. No constipation. No bloody or tarry stools. No loss of appetite. Genitourinary: No dysuria, increased frequency, urgency. No urinary retention. Musculoskeletal: No myalgias. Reports muscle weakness, no gait dysfunction, no frequent falls. No back pain. No neck pain. + Right elbow pain Integumentary: No wounds, no lesions. No rash or pruritus. No unusual bruising. No change in hair or nails. Neurologic: No aphasia. No facial droop. No change in mentation. No head injury. No headache. No paralysis. No paresthesia. Psychiatric: No depression. No anxiety. No mood swings. Endocrine: No abnormal blood sugars. No weight change. No excessive sweating or thirst. No cold intolerance. Past Medical History Past Medical History: Atrial Fibrillation, Asthma, Deep Vein Thrombosis (DVT), Hearing Disorder / Deafness, Hyperlipidemia, Hypertension, Osteoarthritis (OA), Pneumonia, Renal Disease Additional Past Medical History / Comment(s): Hx pneumonia yrs ago, RSV/ hospitalized x 2 weeks in ICU, dvt R calf, hiatal hernia, hx kidney stones, [place] use of bilateral hearing aids. History of Any Multi-Drug Resistant Organisms: None Reported Past Surgical History: Joint Replacement Additional Past Surgical History / Comment(s): Bilateral knee replacements., total L hip arthroplasty, LIS and cardioversions Past Anesthesia/Blood Transfusion Reactions: No Reported Reaction Past Psychological History: Depression Smoking Status: Never smoker Past Alcohol Use History: Occasional Past Drug Use History: None Reported - Past Family History Mother Family Medical History: No Reported History Medications and Allergies Home Medications Medication Instructions Recorded Confirmed Type Rivaroxaban [Xarelto] 20 mg PO HS 05/29/18 03/22/24 History Tamsulosin HCl [Flomax] 0.4 mg PO HS 05/29/18 03/22/24 History Albuterol Sulfate [Albuterol 1 puff PO RT-Q4H PRN 10/07/21 03/22/24 History Sulfate Hfa] Fluticasone Nasal [place] [Flonase 1 spray EA NOSTRIL BID PRN 06/02/22 03/22/24 History Nasal [place]] Fluticasone/Umeclidin/Vilanter 1 puff INHALATION RT-DAILY 09/07/23 03/22/24 History [Trelegy Ellipta 200-62.5-25] Atorvastatin [Lipitor] 40 mg PO HS 10/16/23 03/22/24 History Ezetimibe [Zetia] 10 mg PO DAILY 10/16/23 03/22/24 History Levocetirizine Dihydrochloride 5 mg PO HS 10/16/23 03/22/24 History [Xyzal] Venlafaxine HCl [Effexor XR] 75 mg PO HS 01/12/24 03/22/24 History Metoprolol Tartrate [Lopressor] 25 mg PO HS #30 tab 01/17/24 03/22/24 Rx Metoprolol Tartrate [Lopressor] 50 mg PO DAILY #30 tab 01/17/24 03/22/24 Rx Allergies Allergy/AdvReac Type Severity Reaction Status Date / Time rosuvastatin [From Crestor] AdvReac muscle Verified 03/22/24 10:35 soreness/cramps Physical Exam Vitals: Vital Signs Temp Pulse Pulse Resp BP Pulse Ox 03/22/24 12:47 117 H 20 143/96 94 L 03/22/24 12:00 113 H 20 130/82 91 L 03/22/24 11:51 99.6 F 122 H 20 115/75 94 L 03/22/24 11:15 123 H 03/22/24 10:55 123 H 03/22/24 10:31 135 H 20 98/73 94 L 03/22/24 10:15 130 H 03/22/24 09:59 99.6 F 93 24 111/76 94 L Intake and Output 03/22/24 03/22/24 03/22/24 06:59 14:59 22:59 Other: Weight 104.326 kg Gen: This is an obese 83-year-old male, resting in bed, appears to be fairly comfortable at rest. The patient is currently on 3 days of oxygen by nasal cannula Head exam was generally normal. There was no scleral icterus or corneal arcus. Mucous membranes were moist. HEENT: Head is atraumatic, normocephalic. Pupils equal, round. Sclerae is anicteric. NECK: Supple. No JVD. No lymphadenopathy. No thyromegaly. LUNGS: Diminished breath sounds bilaterally. No intercostal retractions. HEART: Irregular S1-S2 consistent with atrial fibrillation with rapid ventricular response first heart sound is depressed, second heart sound is normal, 2/6 systolic ejection murmur at the left sternal border. ABDOMEN: Soft. Bowel sounds are present. No masses. No tenderness. EXTREMITIES: No pedal edema. No calf tenderness. Pain in the left hip. Dorsalis pedis palpable bilaterally. NEUROLOGICAL: Patient is awake, alert and oriented x3. Cranial nerves 2 through 12 are grossly intact. Examination of the skin revealed no evidence of significant rashes, suspicious appearing nevi or other concerning lesions. Results - Laboratory Findings CBC and BMP: 03/22/24 10:25 03/22/24 10:25 PT/INR, D-dimer PT 13.2 sec (10.0-12.5) H 03/22/24 10:25 INR 1.3 (<1.2) H 03/22/24 10:25 Abnormal lab findings: Abnormal Labs 03/22/24 03/22/24 03/22/24 10:25 10:25 10:25 RDW 15.8 H Lymphocytes # 0.9 L PT 13.2 H INR 1.3 H Carbon Dioxide 19 L Glucose 115 H Plasma Lactic Acid Efren Calcium 8.3 L Total Protein 5.9 L 03/22/24 10:25 RDW Lymphocytes # PT INR Carbon Dioxide Glucose Plasma Lactic Acid Efren 3.0 H* Calcium Total Protein Assessment and Plan Plan: There may be also a component of mild CHF with preserved LV function secondary to A-fib RVR. Acute on chronic shortness of breath desaturated to A-fib RVR, he does have underlying COPD. Acute hypoxic respiratory failure currently on 3 L of oxygen by nasal cannula COPD with an FEV1 of 77% of predicted at baseline maintain on Trelegy Ellipta on outpatient basis with a mild component of COPD exacerbation. CHF with preserved LV function, pro BNP level is at 1230 Mild lactic acidosis, improved Mild nonocclusive coronary artery disease Hypertension Hyperlipidemia Peripheral vascular disease Remote history of a DVT, involving the right lower extremity BPH Impaired hearing Osteoarthritis History of hiatal hernia Plan Management of atrial fibrillation per cardiology. Echocardiogram to be repeated and the patient is currently on metoprolol 50 mg in p.m. and 25 mg the morning and the patient was also started on Cardizem 30 mg p.o. 3 times daily. Continue anticoagulation with Xarelto. May allow to use Trelegy Ellipta from home, meanwhile, the patient was switched to Symbicort during his current hospital stay. IV Solu-Medrol 40 mg. 8 DuoNeb updrafts as needed Resume home medications Viral screen is negative Will continue to follow
[2024-03-22] MEDS: DILTIAZEM ORAL 30 MG TAB PO SCH (17:08)
[2024-03-22 17:16] LABS: Glucose,Whole Blood 139 mg/dL (70-110)
[2024-03-22] MEDS: INSULIN ASPART (NovoLOG) 100 UNIT/ML VIAL SQ SCH (17:18)
[2024-03-22] MEDS: methylPREDNISolone SOD SUCCI 125 MG/2 ML VIAL IV SCH (17:29)
--- NOTE | 2024-03-22 18:47 | CA ---
Transthoracic Echo Report Name: Yaw Brennan Age: 83 Gender: M : 1940 Exam Date: 03/22/2024 16:04 Exam Location: [facility] Ht (in): 70 Wt (lb): 230 Ordering Physician: Sabine Ruiz Attending/Referring Phys: [id number], Joseph Peanut Roaster Sonya Lugo, JAMEEL Procedure CPT: Indications: LV function, AF Cardiac Hx: Technical Quality: Technically difficult study Contrast 1: Total Dose (mL): Contrast 2: Total Dose (mL): MEASUREMENTS (Male / Female) Normal Values 2D ECHO LV Diastolic Diameter PLAX 4.1 cm 4.2 - 5.9 / 3.9 - 5.3 cm LV Systolic Diameter PLAX 3.3 cm IVS Diastolic Thickness 1.7 cm 0.6 - 1.0 / 0.6 - 0.9 cm LVPW Diastolic Thickness 1.7 cm 0.6 - 1.0 / 0.6 - 0.9 cm LV Relative Wall Thickness 0.8 RV Internal Dim ED PLAX 3.4 cm LVOT Diameter 1.9 cm LA Systolic Diameter LX 4.6 cm 3.0 - 4.0 / 2.7 - 3.8 cm LA Volume 65.4 cm??? 18 - 58 / 22 - 52 cm??? LA Volume Index 28.4 cm???/m??? 16 - 28 cm???/m??? M-MODE Aortic Root Diameter MM 4.1 cm MV E Point Septal Separation 0.4 cm AV Cusp Separation MM 2.3 cm DOPPLER AV Peak Velocity 186.6 cm/s AV Peak Gradient 13.9 mmHg AV Mean Velocity 147.2 cm/s AV Mean Gradient 9.9 mmHg AV Velocity Time Integral 39.3 cm AI Peak Velocity 468.5 cm/s AI Peak Gradient 87.8 mmHg AI Pressure Half Time 1502.3 ms MV Area PHT 3.5 cm??? MV Deceleration Time 185.5 ms TR Peak Velocity 215.8 cm/s TR Peak Gradient 18.6 mmHg Right Ventricular Systolic Press 22.6 mmHg FINDINGS Left Ventricle Left ventricular ejection fraction is estimated at 40-45 %. Left ventricular cavity size normal. Severe concentric left ventricular hypertrophy. No obvious regional wall motion abnormalities. Right Ventricle Mild right ventricular dilatation. Right ventricular systolic pressure within normal limits. Right Atrium Normal right atrial size. No right atrial thrombus or mass seen. Left Atrium Normal left atrial size. No left atrial thrombus or mass present. Mitral Valve Structurally normal mitral valve. No mitral stenosis, regurgitation or prolapse. Aortic Valve Aortic valve not well visualized. Mild aortic stenosis with a peak gradient of 14 mmHg and a mean gradient of 10 mmHg. Mild aortic regurgitation. Tricuspid Valve Structurally normal tricuspid valve. Mild tricuspid regurgitation. Pulmonic Valve Pulmonic valve not well visualized. Pericardium No pericardial effusion. No pleural effusion. Aorta Mild aortic dilatation at the level of the sinuses of valsalva 41 mm CONCLUSIONS Mildly impaired LV function was EF between 40-45% Overall technically difficult study was poorly visualized endocardium and intracardiac valves Aortic valve was not well seen. There is mild aortic stenosis and mild aortic insufficiency Previewed by: Dr. Ramirez Bradshaw MD (Electronically Signed) Final Date: 22 Mar 2024 18:46
[2024-03-22] MEDS: BUDESONIDE 1 MG/2 ML NEBU INHALATION SCH (19:47)
[2024-03-22] MEDS: IPRATROPIUM-ALBUTEROL 3 ML NEB INHALATION SCH (19:47)
[2024-03-22] MEDS ORDERED: SYMBICORT 160-4.5 MCG INHALER INHALATION SCH (20:00)
[2024-03-22] MEDS ORDERED: METOPROLOL TARTRATE 25 MG TAB PO SCH (21:00)
[2024-03-22 21:20] LABS: Glucose,Whole Blood 278 mg/dL (70-110)
[2024-03-22] MEDS: TAMSULOSIN 0.4 MG CAP.ER.24H PO SCH (21:23)
[2024-03-22] MEDS: LORATADINE 10 MG TAB PO SCH (21:23)
[2024-03-22] MEDS: METOPROLOL TARTRATE 50 MG TAB PO SCH (21:23)
[2024-03-22] MEDS: RIVAROXABAN 20 MG TAB PO SCH (21:23)
[2024-03-22] MEDS: VENLAFAXINE HCL ER 75 MG CAP PO SCH (21:23)
[2024-03-22] MEDS: ATORVASTATIN 40 MG TAB PO SCH (21:23)
[2024-03-22] MEDS: FUROSEMIDE 10 MG/ML 2 ML VIAL IV SCH (21:26)
[2024-03-23 06:14] LABS: Glucose,Whole Blood 150 mg/dL (70-110)
[2024-03-23] MEDS: PANTOPRAZOLE 40 MG TABLET PO SCH (06:52)
[2024-03-23 08:12] LABS: Basophils % (A) 0 %; Eosinophils % (A) 0 %; HCT 45.9 % (39.0-53.0); HGB 14.7 gm/dL (13.0-17.5); Lymphocytes # (A) 0.6 k/uL (1.0-4.8); Lymphocytes % (A) 11 %; MCH 29.6 pg (25.0-35.0); MCV 92.3 fL (80.0-100.0); Mean Platelet Volume 7.7; Monocytes # (A) 0.2 k/uL (0-1.0); Monocytes % (A) 3 %; Neutrophils % (A) 85 %; Platelet Count 183 k/uL (150-450); RBC 4.97 m/uL (4.30-5.90); RDW 15.9 % (11.5-15.5); WBC 5.9 k/uL (3.8-10.6)
[2024-03-23 08:29] LABS: ALT 18 U/L (4-49); AST 26 U/L (17-59); African American GFR (CKD) 89 (>60 ml/min/1.73 sqM); Albumin 3.9 g/dL (3.5-5.0); Alkaline Phosphatase 108 U/L (38-126); Anion Gap 12 mmol/L; Blood Urea Nitrogen 23 mg/dL (9-20); Carbon Dioxide 20 mmol/L (22-30); Chloride 105 mmol/L (98-107); Glucose 154 mg/dL (74-99); Magnesium 1.9 mg/dL (1.6-2.3); Non-African American GFR(CKD) 77 (>60 ml/min/1.73 sqM); Potassium 4.2 mmol/L (3.5-5.1); Sodium 137 mmol/L (137-145); Total Bilirubin 0.7 mg/dL (0.2-1.3); Total Protein 6.3 g/dL (6.3-8.2)
[2024-03-23] MEDS: IPRATROPIUM 0.5 MG/2.5 ML NEBU INHALATION SCH (08:48)
[2024-03-23] MEDS: EZETIMIBE 10 MG TAB PO SCH (08:56)
[2024-03-23] MEDS: FUROSEMIDE 20 MG TAB PO SCH (08:56)
[2024-03-23] MEDS ORDERED: ASPIRIN 325 MG TAB PO SCH (09:00)
[2024-03-23] MEDS ORDERED: METOPROLOL TARTRATE 50 MG TAB PO SCH (09:00)
[2024-03-23] MEDS: DAPAGLIFLOZIN PROPANEDIOL 10 MG TABLET PO SCH (11:01)
--- NOTE | 2024-03-23 11:25 | P.PN ---
Subjective HISTORY OF PRESENT ILLNESS: This is a 83-year-old male with a past medical history significant for coronary artery disease, atrial fibrillation, hypertension, hyperlipidemia, peripheral vascular disease and asthma. Patient follows in the office with Dr. Davis. We have been asked to see the patient in consultation for A-fib with RVR. Patient e regina at the bedside in the emergency room. Patient states he started feeling short of breath last Monday and it has progressively gotten worse. He does report having a frequent nonproductive cough. He denies any chest pain or pressure. No swelling in his legs or weight gain. He denies having any palpitations. Denied any fever or chills. Patient was found to be in A-fib with RVR upon presentation to the emergency room. Upon examination, the patient remains in atrial fibrillation with a heart rate around 120. DIAGNOSTICS: - EKG reveals atrial fibrillation with RVR. - Chest xray bilateral lower lobe infiltrate or atelectasis - Laboratory data: WBC 5.6. Hemoglobin 14.3. Platelet count 163. Sodium 137. Potassium 4.0. BUN 19. Creatinine 1.03. Lactic acid 3.0. Troponin negative x 2. proBNP 1230. - Current home cardiac medications include Xarelto 20 mg at night, metoprolol tartrate 50 mg in the morning and 25 mg in the evening, Zetia 10 mg daily, Lipitor 40 mg at night. - Most recent echocardiogram obtained in July 2023 revealed normal EF, moderate MR, mild AR, mild TR - Cardiac catheterization history: August 2023 revealing 20% distal left main, 20% proximal LAD, 20% proximal circumflex, 20% mid RCA. Right dominant system. 03/23/2024 Patient examined this morning. Patient is sitting up in the chair. Patient reports improvement in his shortness of breath. He does report having a mild cough this morning. He denies any chest pain or pressure. Telemetry reveals atrial fibrillation with heart rate between [id number]. Echocardiogram completed revealing ejection fraction 40 to 45%, no obvious regional wall motion abnormalities, mild aortic stenosis, and mild aortic insufficiency PHYSICAL EXAM: VITAL SIGNS: Reviewed. GENERAL: Well-developed in no acute distress. HEENT: Head is normocephalic. Pupils are equal, round. Sclerae anicteric. Mucous membranes of the mouth are moist. Neck supple. No JVD or thyromegaly LUNGS: Respirations even and unlabored. Lungs with a few crackles at the bases and mild expiratory wheezing noted HEART: Irregular rate and rhythm. S1 and S2 heard. ABDOMEN: Soft. Nondistended. Nontender. EXTREMITIES: Normal range of motion. No clubbing or cyanosis. Peripheral pulses intact. No lower extremity edema NEUROLOGIC: Awake and alert. Oriented x 3. ASSESSMENT: Progressive dyspnea likely stemming from asthma exacerbation Persistent atrial fibrillation with RVR Bilateral lower lobe infiltrate or atelectasis, per CXR Elevated lactic acid Nonobstructive coronary artery disease Hypertension Hyperlipidemia Peripheral vascular disease History of asthma New onset cardiomyopathy, EF 40 to 45%, suspect nonischemic as patient had recent heart cath in August 2023 PLAN: Discontinue oral Cardizem Continue current dose of metoprolol tartrate Discontinue IV Lasix. Begin oral Lasix 20 mg daily Continue telemetry monitoring Recheck kidney function in a.m. Further recommendations pending patient course Nurse practitioner note has been reviewed by physician. Signing provider agrees with the documented findings, assessment, and plan of care documented by LOAN ADMINISTRATOR as a scribe. Objective - Vital Signs Vital signs: Vital Signs Temp 98.2 F 03/23/24 08:00 Pulse 92 03/23/24 09:01 Resp 18 03/23/24 09:01 BP 120/75 03/23/24 08:00 Pulse Ox 94 L 03/23/24 08:48 FiO2 Intake & Output 03/22/24 03/23/24 03/23/24 18:59 06:59 18:59 Intake Total 240 118 Output Total 1200 Balance -960 118 Weight 104.326 kg 106.6 kg Intake: Oral 240 118 Output: Urine 1200 Other: Voiding Method External Catheter # Voids 1 # Bowel Movements 1 - Labs CBC & Chem 7: 03/23/24 07:41 03/23/24 07:41 Labs: Abnormal Lab Results - Last 24 Hours (Table) 03/22/24 03/22/24 03/22/24 Range/Units 10:25 17:12 21:19 RDW (11.5-15.5) % Lymphocytes # (1.0-4.8) k/uL Carbon Dioxide (22-30) mmol/L BUN (9-20) mg/dL Glucose (74-99) mg/dL POC Glucose (mg/dL) 139 H 278 H (70-110) mg/dL Plasma Lactic Acid Efren 3.0 H* (0.7-2.0) mmol/L 03/23/24 03/23/24 03/23/24 Range/Units 06:13 07:41 07:41 RDW 15.9 H (11.5-15.5) % Lymphocytes # 0.6 L (1.0-4.8) k/uL Carbon Dioxide 20 L (22-30) mmol/L BUN 23 H (9-20) mg/dL Glucose 154 H (74-99) mg/dL POC Glucose (mg/dL) 150 H (70-110) mg/dL Plasma Lactic Acid Efren (0.7-2.0) mmol/L
[2024-03-23 11:35] LABS: Glucose,Whole Blood 218 mg/dL (70-110)
[2024-03-23] MEDS: IPRATROPIUM-ALBUTEROL 3 ML NEB INHALATION SCH (12:02)
[2024-03-23 13:29] LABS: Chol/HDL Ratio 2.22 Ratio; LDL Cholesterol,Calculated 59.7 mg/dL (0.0-131.0); VLDL Calculation 11.16 mg/dL (5.00-40.00)
--- NOTE | 2024-03-23 13:49 | P.PN ---
Subjective Progress Note Date: 03/23/24 83-year-old male patient came into the emergency department today with symptoms of shortness of breath progressively getting worse. He also had some nonproductive cough. Denies having any chest pain. No swelling lower extremities. He was found to be in A-fib RVR at the time of presentation to the emergency department. Patient is known to have coronary artery disease and chronic atrial fibrillation. The patient is also known to have hypertension hyperlipidemia peripheral vascular disease and history of bronchial asthma. His chest x-ray showed some limited left lower lobe atelectatic change. EKG was consistent with A-fib RVR. WBC count of 5.6 with a hemoglobin of 14 and a platelet count of 163. Creatinine was at 1.03 with a BUN of 19. Troponin was negative x 2 and proBNP level was 1230. The patient is known to have a preserved LV function based on a previous echocardiogram from July 2023 with moderate MR, mild AR and mild TR. Last cardiac catheterization was in August 2023 and the patient was found to have 20% left main, 20% LAD, 20% circumflex and 20% RCA lesion. The patient was accordingly hospitalized. Currently is on anticoagulation with Xarelto. He is also on oral Cardizem at 30 mg 3 times daily and is also on metoprolol 25 mg at bedtime and 50 mg in the morning. His current heart rate is around 117. BP is stable and the patient is currently on liters of oxygen by nasal cannula with a pulse ox of 94%. The rest spirometry that was done back in 2016 showed an FEV1 of 77% of predicted. The patient has remote history of DVT, and degenerative arthritis in addition. His last hospitalization was in December 2022 and at that time the patient had rhabdomyolysis related to a fall and a urine tract infection with Enterococcus faecalis treated with penicillins. He also developed encephalopathy at that time which essentially recovered. He is known to have mild COPD maintained on Trelegy Ellipta on outpatient basis. He is currently off amiodarone. 03/23/2024, the patient is being seen for a follow-up. Patient is doing well. Less short of breath compared to yesterday. Less bronchospastic and wheezy. The patient is currently resting comfortably on room air oxygen. Denies having any chest pain. The patient is currently on metoprolol and Cardizem drip has been discontinued. The patient was also taken off the IV Lasix and the patient will be started on oral Lasix by cardiology. Has echocardiogram was repeated yesterday and the patient was found to have a mildly impaired LV function with an ejection fraction of 40 to 45%. Concentric left ventricular hypertrophy was present. The patient remains on bronchodilators. Patient remains on steroids. The patient is also on anticoagulation with Xarelto. He remains in atrial fibrillation and the rate is under better control for now. Objective - Vital Signs Vital signs: Vital Signs Temp 98.2 F 03/23/24 08:00 Pulse 92 03/23/24 09:01 Resp 18 03/23/24 09:01 BP 120/75 03/23/24 08:00 Pulse Ox 94 L 03/23/24 08:48 FiO2 Intake & Output 03/22/24 03/23/24 03/23/24 18:59 06:59 18:59 Intake Total 240 118 Output Total 1200 Balance -960 118 Weight 104.326 kg 106.6 kg Intake: Oral 240 118 Output: Urine 1200 Other: Voiding Method External Catheter # Voids 1 # Bowel Movements 1 - Exam Gen: This is an obese 83-year-old male, resting in bed, appears to be fairly comfortable at rest. The patient is currently on 3 days of oxygen by nasal cannula Head exam was generally normal. There was no scleral icterus or corneal arcus. Mucous membranes were moist. HEENT: Head is atraumatic, normocephalic. Pupils equal, round. Sclerae is anicteric. NECK: Supple. No JVD. No lymphadenopathy. No thyromegaly. LUNGS: Diminished breath sounds bilaterally. No intercostal retractions. HEART: Irregular S1-S2 consistent with atrial fibrillation with rapid ventricular response first heart sound is depressed, second heart sound is normal, 2/6 systolic ejection murmur at the left sternal border. ABDOMEN: Soft. Bowel sounds are present. No masses. No tenderness. EXTREMITIES: No pedal edema. No calf tenderness. Pain in the left hip. Dorsalis pedis palpable bilaterally. NEUROLOGICAL: Patient is awake, alert and oriented x3. Cranial nerves 2 through 12 are grossly intact. Examination of the skin revealed no evidence of significant rashes, suspicious appearing nevi or other concerning lesions. - Labs CBC & Chem 7: 03/23/24 07:41 03/23/24 07:41 Labs: Abnormal Lab Results - Last 24 Hours (Table) 03/22/24 03/22/24 03/22/24 Range/Units 10:25 10:25 10:25 RDW 15.8 H (11.5-15.5) % Lymphocytes # 0.9 L (1.0-4.8) k/uL PT 13.2 H (10.0-12.5) sec INR 1.3 H (<1.2) Carbon Dioxide 19 L (22-30) mmol/L BUN (9-20) mg/dL Glucose 115 H (74-99) mg/dL POC Glucose (mg/dL) (70-110) mg/dL Plasma Lactic Acid Efrne (0.7-2.0) mmol/L Calcium 8.3 L (8.4-10.2) mg/dL Total Protein 5.9 L (6.3-8.2) g/dL 03/22/24 03/22/24 03/22/24 Range/Units 10:25 17:12 21:19 RDW (11.5-15.5) % Lymphocytes # (1.0-4.8) k/uL PT (10.0-12.5) sec INR (<1.2) Carbon Dioxide (22-30) mmol/L BUN (9-20) mg/dL Glucose (74-99) mg/dL POC Glucose (mg/dL) 139 H 278 H (70-110) mg/dL Plasma Lactic Acid Efren 3.0 H* (0.7-2.0) mmol/L Calcium (8.4-10.2) mg/dL Total Protein (6.3-8.2) g/dL 03/23/24 03/23/24 03/23/24 Range/Units 06:13 07:41 07:41 RDW 15.9 H (11.5-15.5) % Lymphocytes # 0.6 L (1.0-4.8) k/uL PT (10.0-12.5) sec INR (<1.2) Carbon Dioxide 20 L (22-30) mmol/L BUN 23 H (9-20) mg/dL Glucose 154 H (74-99) mg/dL POC Glucose (mg/dL) 150 H (70-110) mg/dL Plasma Lactic Acid Efren (0.7-2.0) mmol/L Calcium (8.4-10.2) mg/dL Total Protein (6.3-8.2) g/dL Assessment and Plan Plan: There may be also a component of mild CHF with preserved LV function secondary to A-fib RVR. Acute on chronic shortness of breath desaturated to A-fib RVR, he does have underlying COPD. Clinically improving. The patient remains atrial fibrillation the rate is under better control. Remains on bronchodilators and steroids. Acute hypoxic respiratory failure currently on 3 L of oxygen by nasal cannula Acute exacerbation of chronic COPD. The patient is known to have COPD with an FEV1 of 77% of predicted at baseline maintain on Trelegy Ellipta on outpatient basis with a mild component of COPD exacerbation. CHF with preserved LV function, pro BNP level is at 1230 Mild lactic acidosis, improved Mild nonocclusive coronary artery disease Hypertension Hyperlipidemia Peripheral vascular disease Remote history of a DVT, involving the right lower extremity BPH Impaired hearing Osteoarthritis History of hiatal hernia Plan Management of atrial fibrillation per cardiology. Continue metoprolol 50 mg p.o. twice daily.. Continue anticoagulation with Xarelto. May allow to use Trelegy Ellipta from home, meanwhile, the patient was switched to Symbicort during his current hospital stay. IV Solu-Medrol 40 mg. 8 8 hours IV DuoNeb updrafts as needed Resume home medications Viral screen is negative Will continue to follow
--- NOTE | 2024-03-23 14:47 | P.HPIM ---
History of Present Illness H&P Date: 03/22/24 Chief Complaint: atrial fibrillation with RVR HISTORY OF PRESENT ILLNESS This is a 83-year-old male with past medical history of hypertension, paroxysmal atrial fibrillation on Xarelto, benign prostatic hypertrophy, hiatal hernia, hereditary factor VIII deficiency, hyperlipidemia, mild intermittent asthma, possible COPD. Patient was seen in the office today for shortness of breath x 5 days as well as a nonproductive cough. Patient denies any chest pain or discomfort. Patient denies fever or chills. Patient does state that he was recently in close proximity to sick individuals at a . Patient was swabbed in the emergency room; negative for influenza, COVID, and RSV. EKG revealed atrial fibrillation with rapid ventricular response. Patient was taken by ambulance to the emergency department where he was given Cardizem 30 mg PO, Solu-Medrol 125 mg IV push, 1 g of Rocephin, and 40 mg IV lasix. Chest x-ray shows bilateral lower lobe infiltrate. Patient will be admitted with consults to pulmonology and cardiology. REVIEW OF SYSTEMS Constitutional: No fever, no chills, no night sweats. No weight change. Reports weakness, Reports fatigue Reports lethargy. No daytime sleepiness. EENT: No headache. No blurred vision or double vision, no loss of vision. No loss of Hearing, no ringing in the ears, no dizziness. No nasal drainage or congestion. No epistaxis. No sore throat. Lungs: Reports shortness of breath, Reports cough, Reports sputum production. Reports wheezing. Cardiovascular: No chest pain, no lower extremity edema. No palpitations. No paroxysmal nocturnal dyspnea. No orthopnea. No lightheadedness or dizziness. No syncopal episodes. Abdominal: No abdominal pain. No nausea, vomiting. No diarrhea. No constipation. No bloody or tarry stools. No loss of appetite. Genitourinary: No dysuria, increased frequency, urgency. No urinary retention. Musculoskeletal: No myalgias. Reports muscle weakness, no gait dysfunction, no frequent falls. No back pain. No neck pain. + Right elbow pain Integumentary: No wounds, no lesions. No rash or pruritus. No unusual bruising . No change in hair or nails. Neurologic: No aphasia. No facial droop. No change in mentation. No head injury. No headache. No paralysis. No paresthesia. Psychiatric: No depression. No anxiety. No mood swings. Endocrine: No abnormal blood sugars. No weight change. No excessive sweating or thirst. No cold intolerance. MEDICAL HISTORY Hypertension Paroxysmal atrial fibrillation Benign prostatic hypertrophy Hiatal hernia Hereditary factor VIII deficiency Hyperlipidemia Mild intermittent asthma COPD SURGICAL HISTORY Hernia repair Bilateral knee replacement SOCIAL HISTORY Patient is a lifelong nonsmoker, no alcohol use or abuse, no marijuana or illicit drug use. Patient lives at home with his . FAMILY HISTORY Father at age 88 from CVA and had CABG 25 years earlier. Mother at age 88 at F with history of hyperlipidemia. Patient has 2 brothers and one at age 21 in airplane crash and the other one has had multiple surgeries. Patient has one son with no major medical problems and one daughter with no major medical problem. PHYSICAL EXAMINATION Gen: This is an obese 83-year-old male, resting in bed, appears to be fairly comfortable at rest. HEENT: Head is atraumatic, normocephalic. Pupils equal, round. Sclerae is a nicteric. NECK: Supple. No JVD. No lymphadenopathy. No thyromegaly. LUNGS: Diminished breath sounds bilaterally, bilateral expiratory wheezes, mild intercostal retractions HEART: First heart sound is depressed, second heart sound is normal, 2/6 systolic ejection murmur at the left sternal border, irregularly irregular due to atrial fibrillation ABDOMEN: Soft. Bowel sounds are present. No masses. No tenderness. EXTREMITIES: +1 pedal edema. No calf tenderness. Pain in the left hip. Dorsalis pedis palpable bilaterally. NEUROLOGICAL: Patient is awake, alert and oriented x3. Cranial nerves 2 through 12 are grossly intact, muscle power 4/5 upper and lower extremities bilaterally ASSESSMENT AND PLAN 1. Atrial fibrillation with RVR. Patient started on Cardizem drip, continue Xarelto 20 mg once a day, amiodarone 100 mg at bedtime, increase Lopressor to 50 mg twice daily, cardiology consult. 2. Acute diastolic heart failure due to afib with RVR. Continue metoprolol 50 mg morning and increase evening dose from 25 mg to 50 mg. Start lasix 20 mg IVP every 12 hours. 3. COPD without exacerbation. Continue patient on albuterol every 4 hours as needed for shortness of breath, Symbicort 804 0.5 g 2 puffs twice daily. 4. Mild intermittent asthma. Continue Singulair 10 mg at bedtime, levocetirizine 5 mg once daily, albuterol nebulizer treatments every 4 hours as needed. 5. Paroxysmal atrial fibrillation. Continue Xarelto 20 mg at bedtime, continue Lopressor 50 mg twice daily. 6. Benign prostatic hypertrophy. Continue Flomax 0.4 mg at bedtime, monitor for urinary retention. 7. Hereditary factor VIII deficiency. Continue Xarelto 20 mg once a day. 8. Hyperlipidemia. Continue Zetia 10 mg daily and Atorvastatin 40 mg once a day. 9. Hypertension. Continue Lopressor 50 mg twice daily. 10. GI prophylaxis. Protonix 40 mg po daily. 11. DVT prophylaxis. Continue Xarelto 20 mg once daily. 12. Admit to inpatient. Estimated length of stay two midnights. 13. Full code. Past Medical History Past Medical History: Atrial Fibrillation, Asthma, Deep Vein Thrombosis (DVT), Hearing Disorder / Deafness, Hyperlipidemia, Hypertension, Osteoarthritis (OA), Pneumonia, Renal Disease Additional Past Medical History / Comment(s): Hx pneumonia yrs ago, RSV/ hospitalized x 2 weeks in ICU, dvt R calf, hiatal hernia, hx kidney stones, [id number] use of bilateral hearing aids. History of Any Multi-Drug Resistant Organisms: None Reported Past Surgical History: Joint Replacement Additional Past Surgical History / Comment(s): Bilateral knee replacements., total L hip arthroplasty, LIS and cardioversions Past Anesthesia/Blood Transfusion Reactions: No Reported Reaction Past Psychological History: Depression Smoking Status: Never smoker Past Alcohol Use History: Occasional Past Drug Use History: None Reported - Past Family History Mother Family Medical History: No Reported History Medications and Allergies Home Medications Medication Instructions Recorded Confirmed Type Rivaroxaban [Xarelto] 20 mg PO HS 05/29/18 03/22/24 History Tamsulosin HCl [Flomax] 0.4 mg PO HS 05/29/18 03/22/24 History Albuterol Sulfate [Albuterol 1 puff PO RT-Q4H PRN 10/07/21 03/22/24 History Sulfate Hfa] Fluticasone Nasal [place] [Flonase 1 spray EA NOSTRIL BID PRN 06/02/22 03/22/24 H istory Nasal [place]] Fluticasone/Umeclidin/Vilanter 1 puff INHALATION RT-DAILY 09/07/23 03/22/24 History [Trelegy Ellipta 200-62.5-25] Atorvastatin [Lipitor] 40 mg PO HS 10/16/23 03/22/24 History Ezetimibe [Zetia] 10 mg PO DAILY 10/16/23 03/22/24 History Levocetirizine Dihydrochloride 5 mg PO HS 10/16/23 03/22/24 History [Xyzal] Venlafaxine HCl [Effexor XR] 75 mg PO HS 01/12/24 03/22/24 History Metoprolol Tartrate [Lopressor] 25 mg PO HS #30 tab 01/17/24 03/22/24 Rx Metoprolol Tartrate [Lopressor] 50 mg PO DAILY #30 tab 01/17/24 03/22/24 Rx Allergies Allergy/AdvReac Type Severity Reaction Status Date / Time rosuvastatin [From Crestor] AdvReac muscle Verified 03/22/24 10:35 soreness/cramps Physical Exam Vitals: Vital Signs Temp Pulse Pulse Resp BP Pulse Ox 03/22/24 12:47 117 H 20 143/96 94 L 03/22/24 12:00 113 H 20 130/82 91 L 03/22/24 11:51 99.6 F 122 H 20 115/75 94 L 03/22/24 11:15 123 H 03/22/24 10:55 123 H 03/22/24 10:31 135 H 20 98/73 94 L 03/22/24 10:15 130 H 03/22/24 09:59 99.6 F 93 24 111/76 94 L Intake and Output 03/21/24 03/22/24 03/22/24 22:59 06:59 14:59 Other: Weight 104.326 kg Results CBC & Chem 7: 03/23/24 07:41 03/23/24 07:41 Labs: Abnormal Lab Results - Last 24 Hours (Table) 03/22/24 03/22/24 03/22/24 Range/Units 10:25 10:25 10:25 RDW 15.8 H (11.5-15.5) % Lymphocytes # 0.9 L (1.0-4.8) k/uL PT 13.2 H (10.0-12.5) sec INR 1.3 H (<1.2) Carbon Dioxide 19 L (22-30) mmol/L Glucose 115 H (74-99) mg/dL Plasma Lactic Acid Efren (0.7-2.0) mmol/L Calcium 8.3 L (8.4-10.2) mg/dL Total Protein 5.9 L (6.3-8.2) g/dL 03/22/24 Range/Units 10:25 RDW (11.5-15.5) % Lymphocytes # (1.0-4.8) k/uL PT (10.0-12.5) sec INR (<1.2) Carbon Dioxide (22-30) mmol/L Glucose (74-99) mg/dL Plasma Lactic Acid Efren 3.0 H* (0.7-2.0) mmol/L Calcium (8.4-10.2) mg/dL Total Protein (6.3-8.2) g/dL
--- NOTE | 2024-03-23 15:02 | P.PN ---
Subjective Progress Note Date: 03/23/24 HISTORY OF PRESENT ILLNESS This is a 83-year-old male with past medical history of hypertension, paroxysmal atrial fibrillation on Xarelto, benign prostatic hypertrophy, hiatal hernia, hereditary factor VIII deficiency, hyperlipidemia, mild intermittent asthma, possible COPD. Patient was seen in the office today for shortness of breath x 5 days as well as a nonproductive cough. Patient denies any chest pain or discomfort. Patient denies fever or chills. Patient does state that he was recently in close proximity to sick individuals at a . Patient was swabbed in the emergency room; negative for influenza, COVID, and RSV. EKG revealed atrial fibrillation with rapid ventricular response. Patient was taken by ambulance to the emergency department where he was given Cardizem 30 mg PO, Solu-Medrol 125 mg IV push, 1 g of Rocephin, and 40 mg IV lasix. Chest x-ray shows bilateral lower lobe infiltrate. Patient will be admitted with consults to pulmonology and cardiology. 03/23: Patient is sitting up in bed at this time. He is less short of breath today. Transthoracic echo shows mildly impaired LV function with an EF of 40 to 45%, mild aortic stenosis, and mild aortic insufficiency. Patient remains in A- fib with a heart rate between 90 and 110. Diltiazem was discontinued. Patient is currently not on amiodarone. Continue metoprolol 50 mg twice daily. Continue Solu-Medrol 60 mg IV every 6 hours. Patient was switched to 20 mg oral Lasix once daily. Continue continue Xarelto 20 mg at bedtime. We will obtain repeat chest x-ray and labs tomorrow. Likely to be discharged tomorrow or Monday. REVIEW OF SYSTEMS Constitutional: No fever, no chills, no night sweats. No weight change. Reports weakness, Reports fatigue Reports lethargy. No daytime sleepiness. EENT: No headache. No blurred vision or double vision, no loss of vision. No loss of Hearing, no ringing in the ears, no dizziness. No nasal drainage or congestion. No epistaxis. No sore throat. Lungs: Reports shortness of breath, Reports cough, Reports sputum production. Reports wheezing. Cardiovascular: No chest pain, no lower extremity edema. No palpitations. No paroxysmal nocturnal dyspnea. No orthopnea. No lightheadedness or dizziness. No syncopal episodes. Abdominal: No abdominal pain. No nausea, vomiting. No diarrhea. No constipation. No bloody or tarry stools. No loss of appetite. Genitourinary: No dysuria, increased frequency, urgency. No urinary retention. Musculoskeletal: No myalgias. Reports muscle weakness, no gait dysfunction, no frequent falls. No back pain. No neck pain. + Right elbow pain Integumentary: No wounds, no lesions. No rash or pruritus. No unusual bruising. No change in hair or nails. Neurologic: No aphasia. No facial droop. No change in mentation. No head injury. No headache. No paralysis. No paresthesia. Psychiatric: No depression. No anxiety. No mood swings. Endocrine: No abnormal blood sugars. No weight change. No excessive sweating or thirst. No cold intolerance. PHYSICAL EXAMINATION Gen: This is an obese 83-year-old male, resting in bed, appears to be fairly comfortable at rest. HEENT: Head is atraumatic, normocephalic. Pupils equal, round. Sclerae is anicteric. NECK: Supple. No JVD. No lymphadenopathy. No thyromegaly. LUNGS: Diminished breath sounds bilaterally, bilateral expiratory wheezes, no retractions HEART: First heart sound is depressed, second heart sound is normal, 2/6 systolic ejection murmur at the left sternal border, irregularly irregular due to atrial fibrillation ABDOMEN: Soft. Bowel sounds are present. No masses. No tenderness. EXTREMITIES: +1 pedal edema. No calf tenderness. Pain in the left hip. Dorsalis pedis palpable bilaterally. NEUROLOGICAL: Patient is awake, alert and oriented x3. Cranial nerves 2 through 12 are grossly intact, muscle power 4/5 upper and lower extremities bilaterally ASSESSMENT AND PLAN 1. Atrial fibrillation with RVR. Continue Xarelto 20 mg once a day and lopressor 50 mg twice daily. 2. Acute diastolic heart failure due to afib with RVR. Continue metoprolol 50 mg morning and increase evening dose from 25 mg to 50 mg. Start lasix 20 mg IVP every 12 hours. 3. COPD without exacerbation. Continue patient on albuterol every 4 hours as needed for shortness of breath, Symbicort 804 0.5 g 2 puffs twice daily. 4. Mild intermittent asthma. Continue Singulair 10 mg at bedtime, levocetirizine 5 mg once daily, albuterol nebulizer treatments every 4 hours as needed. 5. Paroxysmal atrial fibrillation. Continue Xarelto 20 mg at bedtime, continue metoprolol 50 mg twice daily. 6. Benign prostatic hypertrophy. Continue Flomax 0.4 mg at bedtime, monitor for urinary retention. 7. Hereditary factor VIII deficiency. Continue Xarelto 20 mg once daily. 8. Hyperlipidemia. Continue Zetia 10 mg daily and Atorvastatin 40 mg once a day. 9. Hypertension. Continue Lopressor 50 milligrams twice daily. 10. GI prophylaxis. Protonix 40 mg po daily. 11. DVT prophylaxis. Continue Xarelto 20 mg once daily. 13. Full code. Objective - Vital Signs Vital signs: Vital Signs Temp 98.2 F 03/23/24 08:00 Pulse 92 03/23/24 12:03 Resp 18 03/23/24 12:03 BP 123/60 03/23/24 11:55 Pulse Ox 94 L 03/23/24 11:55 FiO2 Intake & Output 03/22/24 03/23/24 03/23/24 18:59 06:59 18:59 Intake Total 240 476 Output Total 1200 150 Balance -960 326 Weight 104.326 kg 106.6 kg Intake: Oral 240 476 Output: Urine 1200 150 Other: Voiding Method Toilet Urinal # Voids 1 # Bowel Movements 1 - Labs CBC & Chem 7: 03/23/24 07:41 03/23/24 07:41 Labs: Abnormal Lab Results - Last 24 Hours (Table) 03/22/24 03/22/24 03/23/24 Range/Units 17:12 21:19 06:13 RDW (11.5-15.5) % Lymphocytes # (1.0-4.8) k/uL Carbon Dioxide (22-30) mmol/L BUN (9-20) mg/dL Glucose (74-99) mg/dL POC Glucose (mg/dL) 139 H 278 H 150 H (70-110) mg/dL 03/23/24 03/23/24 03/23/24 Range/Units 07:41 07:41 11:33 RDW 15.9 H (11.5-15.5) % Lymphocytes # 0.6 L (1.0-4.8) k/uL Carbon Dioxide 20 L (22-30) mmol/L BUN 23 H (9-20) mg/dL Glucose 154 H (74-99) mg/dL POC Glucose (mg/dL) 218 H (70-110) mg/dL
[2024-03-23 16:15] LABS: Glucose,Whole Blood 134 mg/dL (70-110)
[2024-03-23 20:32] LABS: Glucose,Whole Blood 174 mg/dL (70-110)
[2024-03-24 05:50] LABS: Glucose,Whole Blood 126 mg/dL (70-110)
[2024-03-24 08:01] LABS: African American GFR (CKD) 67 (>60 ml/min/1.73 sqM); Anion Gap 10 mmol/L; Blood Urea Nitrogen 28 mg/dL (9-20); Calcium 8.8 mg/dL (8.4-10.2); Carbon Dioxide 23 mmol/L (22-30); Chloride 106 mmol/L (98-107); Glucose 145 mg/dL (74-99); Non-African American GFR(CKD) 58 (>60 ml/min/1.73 sqM); Potassium 4.2 mmol/L (3.5-5.1); Sodium 139 mmol/L (137-145)
--- NOTE | 2024-03-24 09:22 | P.PN ---
Subjective Progress Note Date: 03/24/24 HISTORY OF PRESENT ILLNESS This is a 83-year-old male with past medical history of hypertension, paroxysmal atrial fibrillation on Xarelto, benign prostatic hypertrophy, hiatal hernia, hereditary factor VIII deficiency, hyperlipidemia, mild intermittent asthma, possible COPD. Patient was seen in the office today for shortness of breath x 5 days as well as a nonproductive cough. Patient denies any chest pain or discomfort. Patient denies fever or chills. Patient does state that he was recently in close proximity to sick individuals at a . Patient was swabbed in the emergency room; negative for influenza, COVID, and RSV. EKG revealed atrial fibrillation with rapid ventricular response. Patient was taken by ambulance to the emergency department where he was given Cardizem 30 mg PO, Solu-Medrol 125 mg IV push, 1 g of Rocephin, and 40 mg IV lasix. Chest x-ray shows bilateral lower lobe infiltrate. Patient will be admitted with consults to pulmonology and cardiology. 03/23: Patient is sitting up in bed at this time. He is less short of breath today. Transthoracic echo shows mildly impaired LV function with an EF of 40 to 45%, mild aortic stenosis, and mild aortic insufficiency. Patient remains in A- fib with a heart rate between 90 and 110. Diltiazem was discontinued. Patient is currently not on amiodarone. Continue metoprolol 50 mg twice daily. Continue Solu-Medrol 60 mg IV every 6 hours. Patient was switched to 20 mg oral Lasix once daily. Continue continue Xarelto 20 mg at bedtime. We will obtain repeat chest x-ray and labs tomorrow. Likely to be discharged tomorrow or Monday. 03/24: Patient is sitting up in the chair he continues to be somewhat short of breath when ambulating, he denies any chest pressure at this point in time, his echocardiogram showed ejection fraction of 45%, with mild aortic valve stenosis and mild aortic regurgitation, he remains in atrial fibrillation his heart rate is around 90-102, patient has been on metoprolol 50 mg orally twice every day, I will increase metoprolol to 75 mg orally twice every day, monitor the patient very closely decrease Solu-Medrol to 40 mg IV push every 8 hours, patient is yet to be seen by pulmonary medicine, will continue to monitor the patient very closely continue patient on DuoNeb 3 mL nebulization every 6 hours and Pulmicort 1 mg nebulization twice every day. REVIEW OF SYSTEMS Constitutional: No fever, no chills, no night sweats. No weight change. Reports weakness, Reports fatigue Reports lethargy. No daytime sleepiness. EENT: No headache. No blurred vision or double vision, no loss of vision. No loss of Hearing, no ringing in the ears, no dizziness. No nasal drainage or congestion. No epistaxis. No sore throat. Lungs: Reports shortness of breath, Reports cough, Reports sputum production. Reports wheezing. Cardiovascular: No chest pain, no lower extremity edema. No palpitations. No paroxysmal nocturnal dyspnea. No orthopnea. No lightheadedness or dizziness. No syncopal episodes. Abdominal: No abdominal pain. No nausea, vomiting. No diarrhea. No constipation. No bloody or tarry stools. No loss of appetite. Genitourinary: No dysuria, increased frequency, urgency. No urinary retention. Musculoskeletal: No myalgias. Reports muscle weakness, no gait dysfunction, no frequent falls. No back pain. No neck pain. + Right elbow pain Integumentary: No wounds, no lesions. No rash or pruritus. No unusual b ruising. No change in hair or nails. Neurologic: No aphasia. No facial droop. No change in mentation. No head injury. No headache. No paralysis. No paresthesia. Psychiatric: No depression. No anxiety. No mood swings. Endocrine: No abnormal blood sugars. No weight change. No excessive sweating o r thirst. No cold intolerance. PHYSICAL EXAMINATION Gen: This is an obese 83-year-old male, resting in bed, appears to be fairly comfortable at rest. HEENT: Head is atraumatic, normocephalic. Pupils equal, round. Sclerae is anicteric. NECK: Supple. No JVD. No lymphadenopathy. No thyromegaly. LUNGS: Diminished breath sounds bilaterally, bilateral expiratory wheezes, no retractions HEART: First heart sound is depressed, second heart sound is normal, 2/6 sy stolic ejection murmur at the left sternal border, irregularly irregular due to atrial fibrillation ABDOMEN: Soft. Bowel sounds are present. No masses. No tenderness. EXTREMITIES: +1 pedal edema. No calf tenderness. Pain in the left hip. Dorsalis pedis palpable bilaterally. NEUROLOGICAL: Patient is awake, alert and oriented x3. Cranial nerves 2 through 12 are grossly intact, muscle power 4/5 upper and lower extremities bilaterally ASSESSMENT AND PLAN 1. Atrial fibrillation with RVR. Patient heart rate is between 90-103 I will increase his metoprolol to 75 mg orally twice every day, continue Xarelto 20 mg once every day, monitor the patient very closely 2. Acute diastolic heart failure due to afib with RVR. Continue metoprolol 50 milligram orally twice every day, patient was taken off Cardizem due to heart failure with reduced ejection fraction, continue patient on Farxiga 10 mg once every day, monitor input and output and daily weight, continue patient on Lasix 40 mg orally once every day. 3. Mild COPD exacerbation. Decrease Solu-Medrol to 40 mg IV push every 8 hours, continue DuoNeb 3 mm nebulization 4 times every day, continue Pulmicort 1 mg nebulization twice every day, pulmonary consultation 4. Mild intermittent asthma. Continue patient on DuoNeb 3 mL nebulization 4 times every day, Pulmicort 1 mg nebulization twice every day, I will continue patient on oxygen as needed, continue Singulair 10 mg at bedtime as well as levocetirizine or Claritin 10 mg orally once every day. 5. Paroxysmal atrial fibrillation. Continue Xarelto 20 mg at bedtime, continue metoprolol 50 mg twice daily. 6. Benign prostatic hypertrophy. Continue Flomax 0.4 mg at bedtime, monitor for urinary retention. 7. Hereditary factor VIII deficiency. Continue Xarelto 20 mg once daily. 8. Hyperlipidemia. Continue Zetia 10 mg daily and Atorvastatin 40 mg once a day. 9. Hypertension and hypertensive cardiovascular disease. Continue patient on metoprolol 75 mg orally twice every day. 10. GI prophylaxis. Protonix 40 mg po daily. 11. DVT prophylaxis. Continue Xarelto 20 mg once daily. 13. Full code. 14. Physical therapy evaluation. 15. Likely home on Monday. Objective - Vital Signs Vital signs: Vital Signs Temp 97.7 F 03/23/24 19:57 Pulse 101 H 03/24/24 09:14 Resp 18 03/24/24 09:14 BP 118/73 03/24/24 04:00 Pulse Ox 91 L 03/24/24 09:03 FiO2 Intake & Output 03/23/24 03/24/24 03/24/24 18:59 06:59 18:59 Intake Total 594 480 240 Output Total 450 600 Balance 144 -120 240 Weight 105.6 kg Intake: Oral 594 480 240 Output: Urine 450 600 Other: Voiding Method Toilet External Catheter Urinal # Voids 2 1 - Labs CBC & Chem 7: 03/23/24 07:41 03/24/24 06:49 Labs: Abnormal Lab Results - Last 24 Hours (Table) 03/23/24 03/23/24 03/23/24 Range/Units 11:33 16:14 20:22 BUN (9-20) mg/dL Glucose (74-99) mg/dL POC Glucose (mg/dL) 218 H 134 H 174 H (70-110) mg/dL 03/24/24 03/24/24 Range/Units 05:48 06:49 BUN 28 H (9-20) mg/dL Glucose 145 H (74-99) mg/dL POC Glucose (mg/dL) 126 H (70-110) mg/dL Microbiology - Last 24 Hours (Table) 03/22/24 10:40 Blood Culture - Preliminary Blood 03/22/24 10:25 Blood Culture - Preliminary Blood
--- NOTE | 2024-03-24 10:23 | P.PN ---
Subjective HISTORY OF PRESENT ILLNESS: This is a 83-year-old male with a past medical history significant for coronary artery disease, atrial fibrillation, hypertension, hyperlipidemia, peripheral vascular disease and asthma. Patient follows in the office with Dr. Davis. We have been asked to see the patient in consultation for A-fib with RVR. Patient e regina at the bedside in the emergency room. Patient states he started feeling short of breath last Monday and it has progressively gotten worse. He does report having a frequent nonproductive cough. He denies any chest pain or pressure. No swelling in his legs or weight gain. He denies having any palpitations. Denied any fever or chills. Patient was found to be in A-fib with RVR upon presentation to the emergency room. Upon examination, the patient remains in atrial fibrillation with a heart rate around 120. DIAGNOSTICS: - EKG reveals atrial fibrillation with RVR. - Chest xray bilateral lower lobe infiltrate or atelectasis - Laboratory data: WBC 5.6. Hemoglobin 14.3. Platelet count 163. Sodium 137. Potassium 4.0. BUN 19. Creatinine 1.03. Lactic acid 3.0. Troponin negative x 2. proBNP 1230. - Current home cardiac medications include Xarelto 20 mg at night, metoprolol tartrate 50 mg in the morning and 25 mg in the evening, Zetia 10 mg daily, Lipitor 40 mg at night. - Most recent echocardiogram obtained in July 2023 revealed normal EF, moderate MR, mild AR, mild TR - Cardiac catheterization history: August 2023 revealing 20% distal left main, 20% proximal LAD, 20% proximal circumflex, 20% mid RCA. Right dominant system. 03/23/2024 Patient examined this morning. Patient is sitting up in the chair. Patient reports improvement in his shortness of breath. He does report having a mild cough this morning. He denies any chest pain or pressure. Telemetry reveals atrial fibrillation with heart rate between [id number]. Echocardiogram completed revealing ejection fraction 40 to 45%, no obvious regional wall motion abnormalities, mild aortic stenosis, and mild aortic insufficiency 03/24/2024 Patient examined this morning. Patient is sitting up in the chair. Patient reports having an episode of shortness of breath with wheezing overnight. He reports a" rattle" in his throat this morning. Telemetry reveals atrial fibrillation with heart rate between [id number]. PHYSICAL EXAM: VITAL SIGNS: Reviewed. GENERAL: Well-developed in no acute distress. HEENT: Head is normocephalic. Pupils are equal, round. Sclerae anicteric. Mucous membranes of the mouth are moist. Neck supple. No JVD or thyromegaly LUNGS: Respirations even and unlabored. Lungs with a few crackles at the bases and mild expiratory wheezing noted HEART: Irregular rate and rhythm. S1 and S2 heard. ABDOMEN: Soft. Nondistended. Nontender. EXTREMITIES: Normal range of motion. No clubbing or cyanosis. Peripheral pulses intact. No lower extremity edema NEUROLOGIC: Awake and alert. Oriented x 3. ASSESSMENT: Progressive dyspnea likely stemming from asthma exacerbation Persistent atrial fibrillation with RVR Bilateral lower lobe infiltrate or atelectasis, per CXR Elevated lactic acid Nonobstructive coronary artery disease Hypertension Hyperlipidemia Peripheral vascular disease History of asthma New onset cardiomyopathy, EF 40 to 45%, suspect nonischemic as patient had recent heart cath in August 2023 PLAN: Increase metoprolol to 75 mg twice a day for optimal heart rate control Continue additional cardiac medications Continue IV steroids per primary medicine Possible discharge home tomorrow if patient remains stable Further recommendations pending patient course Nurse practitioner note has been reviewed by physician. Signing provider agrees with the documented findings, assessment, and plan of care documented by ASSISTANT TRACK COACH as a scribe. Objective - Vital Signs Vital signs: Vital Signs Temp 98.1 F 03/24/24 08:00 Pulse 101 H 03/24/24 09:14 Resp 18 03/24/24 09:14 BP 110/67 03/24/24 08:00 Pulse Ox 91 L 03/24/24 09:03 FiO2 Intake & Output 03/23/24 03/24/24 03/24/24 18:59 06:59 18:59 Intake Total 594 480 240 Output Total 450 600 Balance 144 -120 240 Weight 105.6 kg Intake: Oral 594 480 240 Output: Urine 450 600 Other: Voiding Method Toilet External Catheter Toilet Urinal Urinal # Voids 2 1 - Labs CBC & Chem 7: 03/23/24 07:41 03/24/24 06:49 Labs: Abnormal Lab Results - Last 24 Hours (Table) 03/23/24 03/23/24 03/23/24 Range/Units 11:33 16:14 20:22 BUN (9-20) mg/dL Glucose (74-99) mg/dL POC Glucose (mg/dL) 218 H 134 H 174 H (70-110) mg/dL 03/24/24 03/24/24 Range/Units 05:48 06:49 BUN 28 H (9-20) mg/dL Glucose 145 H (74-99) mg/dL POC Glucose (mg/dL) 126 H (70-110) mg/dL Microbiology - Last 24 Hours (Table) 03/22/24 10:40 Blood Culture - Preliminary Blood 03/22/24 10:25 Blood Culture - Preliminary Blood
[2024-03-24 12:00] LABS: Glucose,Whole Blood 124 mg/dL (70-110)
--- NOTE | 2024-03-24 12:06 | P.PN ---
Subjective Progress Note Date: 03/24/24 83-year-old male patient came into the emergency department today with symptoms of shortness of breath progressively getting worse. He also had some nonproductive cough. Denies having any chest pain. No swelling lower extremities. He was found to be in A-fib RVR at the time of presentation to the emergency department. Patient is known to have coronary artery disease and chronic atrial fibrillation. The patient is also known to have hypertension hyperlipidemia peripheral vascular disease and history of bronchial asthma. His chest x-ray showed some limited left lower lobe atelectatic change. EKG was consistent with A-fib RVR. WBC count of 5.6 with a hemoglobin of 14 and a platelet count of 163. Creatinine was at 1.03 with a BUN of 19. Troponin was negative x 2 and proBNP level was 1230. The patient is known to have a preserved LV function based on a previous echocardiogram from July 2023 with moderate MR, mild AR and mild TR. Last cardiac catheterization was in August 2023 and the patient was found to have 20% left main, 20% LAD, 20% circumflex and 20% RCA lesion. The patient was accordingly hospitalized. Currently is on anticoagulation with Xarelto. He is also on oral Cardizem at 30 mg 3 times daily and is also on metoprolol 25 mg at bedtime and 50 mg in the morning. His current heart rate is around 117. BP is stable and the patient is currently on liters of oxygen by nasal cannula with a pulse ox of 94%. The rest spirometry that was done back in 2016 showed an FEV1 of 77% of predicted. The patient has remote history of DVT, and degenerative arthritis in addition. His last hospitalization was in December 2022 and at that time the patient had rhabdomyolysis related to a fall and a urine tract infection with Enterococcus faecalis treated with penicillins. He also developed encephalopathy at that time which essentially recovered. He is known to have mild COPD maintained on Trelegy Ellipta on outpatient basis. He is currently off amiodarone. 03/23/2024, the patient is being seen for a follow-up. Patient is doing well. Less short of breath compared to yesterday. Less bronchospastic and wheezy. The patient is currently resting comfortably on room air oxygen. Denies having any chest pain. The patient is currently on metoprolol and Cardizem drip has been discontinued. The patient was also taken off the IV Lasix and the patient will be started on oral Lasix by cardiology. Has echocardiogram was repeated yesterday and the patient was found to have a mildly impaired LV function with an ejection fraction of 40 to 45%. Concentric left ventricular hypertrophy was present. The patient remains on bronchodilators. Patient remains on steroids. The patient is also on anticoagulation with Xarelto. He remains in atrial fibrillation and the rate is under better control for now. 03/24/2024, the patient is being seen for a follow-up. The patient is calm and comfortable and patient is currently on room air oxygen with a pulse ox of 91%. Continues to have some noted bronchospasm and wheezing. Overall condition is improved considerably. Remains on bronchodilators. Remains on IV Solu-Medrol 40 mg every 8 hours. Remains on Lasix 40 mg p.o. daily. Antibiotic coverage essentially empiric and the cultures have been negative. BUN is 28 with a creatinine 1.1 and sodium of 139 with a potassium level of 4.2. No complaints. Sitting up in the chair and he reports improvement. Objective - Vital Signs Vital signs: Vital Signs Temp 98.1 F 03/24/24 08:00 Pulse 101 H 03/24/24 09:14 Resp 18 03/24/24 09:14 BP 110/67 03/24/24 08:00 Pulse Ox 91 L 03/24/24 09:03 FiO2 Intake & Output 03/23/24 03/24/24 03/24/24 18:59 06:59 18:59 Intake Total 594 480 240 Output Total 450 600 Balance 144 -120 240 Weight 105.6 kg Intake: Oral 594 480 240 Output: Urine 450 600 Other: Voiding Method Toilet External Catheter Toilet Urinal Urinal # Voids 2 1 - Exam Gen: This is an obese 83-year-old male, resting in bed, appears to be fairly comfortable at rest. The patient is currently on 3 days of oxygen by nasal cannula Head exam was generally normal. There was no scleral icterus or corneal arcus. Mucous membranes were moist. HEENT: Head is atraumatic, normocephalic. Pupils equal, round. Sclerae is anicteric. NECK: Supple. No JVD. No lymphadenopathy. No thyromegaly. LUNGS: Diminished breath sounds bilaterally. No intercostal retractions. HEART: Irregular S1-S2 consistent with atrial fibrillation with rapid ventricu lar response first heart sound is depressed, second heart sound is normal, 2/6 systolic ejection murmur at the left sternal border. ABDOMEN: Soft. Bowel sounds are present. No masses. No tenderness. EXTREMITIES: No pedal edema. No calf tenderness. Pain in the left hip. Dorsalis pedis palpable bilaterally. NEUROLOGICAL: Patient is awake, alert and oriented x3. Cranial nerves 2 through 12 are grossly intact. Examination of the skin revealed no evidence of significant rashes, suspicious appearing nevi or other concerning lesions. - Labs CBC & Chem 7: 03/23/24 07:41 03/24/24 06:49 Labs: Abnormal Lab Results - Last 24 Hours (Table) 03/23/24 03/23/24 03/23/24 Range/Units 11:33 16:14 20:22 BUN (9-20) mg/dL Glucose (74-99) mg/dL POC Glucose (mg/dL) 218 H 134 H 174 H (70-110) mg/dL 03/24/24 03/24/24 Range/Units 05:48 06:49 BUN 28 H (9-20) mg/dL Glucose 145 H (74-99) mg/dL POC Glucose (mg/dL) 126 H (70-110) mg/dL Microbiology - Last 24 Hours (Table) 03/22/24 10:40 Blood Culture - Preliminary Blood 03/22/24 10:25 Blood Culture - Preliminary Blood Assessment and Plan Plan: There may be also a component of mild CHF with preserved LV function secondary to A-fib RVR. Acute on chronic shortness of breath desaturated to A-fib RVR, he does have underlying COPD. Clinically improving. The patient remains atrial fibrillation the rate is under better control. Remains on bronchodilators and steroids. Acute hypoxic respiratory failure , improved and the patient is currently on room air oxygen. Acute exacerbation of chronic COPD. The patient is known to have COPD with an FEV1 of 77% of predicted at baseline maintain on Trelegy Ellipta on outpatient basis with a mild component of COPD exacerbation. CHF with preserved LV function, pro BNP level is at 1230 Mild lactic acidosis, improved Mild nonocclusive coronary artery disease Hypertension Hyperlipidemia Peripheral vascular disease Remote history of a DVT, involving the right lower extremity BPH Impaired hearing Osteoarthritis History of hiatal hernia Plan Clinically improving Less short of breath and oxygenation is improved and the patient is currently on room air oxygen Management of atrial fibrillation per cardiology. Continue metoprolol 50 mg p.o. twice daily.. Continue anticoagulation with Xarelto. May allow to use Trelegy Ellipta from home, meanwhile, the patient was switched to Symbicort during his current hospital stay. IV Solu-Medrol 40 mg. 8 8 hours IV for another 24 hours and switch this patient to prednisone burst taper as of tomorrow DuoNeb updrafts as needed Resume home medications Viral screen is negative Will continue to follow
[2024-03-24] MEDS: methylPREDNISolone SOD SUCCI 40 MG/ML 1 ML VIAL IV SCH (15:13)
[2024-03-24 16:39] LABS: Glucose,Whole Blood 112 mg/dL (70-110)
[2024-03-24 19:49] LABS: Glucose,Whole Blood 156 mg/dL (70-110)
[2024-03-24] MEDS: METOPROLOL TARTRATE 25 MG TAB PO SCH (19:55)
[2024-03-25 05:55] LABS: Glucose,Whole Blood 111 mg/dL (70-110)
[2024-03-25] MEDS: FUROSEMIDE 40 MG TAB PO SCH (09:32)
[2024-03-25 10:08] LABS: Basophils % (A) 0 %; Eosinophils # (A) 0.1 k/uL (0-0.7); Eosinophils % (A) 1 %; HCT 47.1 % (39.0-53.0); HGB 14.6 gm/dL (13.0-17.5); Lymphocytes # (A) 0.6 k/uL (1.0-4.8); Lymphocytes % (A) 3 %; MCH 28.8 pg (25.0-35.0); MCHC 31.1 g/dL (31.0-37.0); MCV 92.6 fL (80.0-100.0); Monocytes # (A) 0.4 k/uL (0-1.0); Monocytes % (A) 2 %; Neutrophils # (A) 16.3 k/uL (1.3-7.7); Neutrophils % (A) 94 %; Platelet Count 208 k/uL (150-450); RBC 5.08 m/uL (4.30-5.90); WBC 17.5 k/uL (3.8-10.6)
[2024-03-25 10:45] LABS: ALT 20 U/L (4-49); AST 26 U/L (17-59); African American GFR (CKD) 74 (>60 ml/min/1.73 sqM); Albumin 3.7 g/dL (3.5-5.0); Alkaline Phosphatase 96 U/L (38-126); Anion Gap 9 mmol/L; Blood Urea Nitrogen 37 mg/dL (9-20); Calcium 8.8 mg/dL (8.4-10.2); Carbon Dioxide 22 mmol/L (22-30); Chloride 108 mmol/L (98-107); Glucose 133 mg/dL (74-99); Magnesium 2.2 mg/dL (1.6-2.3); Non-African American GFR(CKD) 64 (>60 ml/min/1.73 sqM); Potassium 4.4 mmol/L (3.5-5.1); Sodium 139 mmol/L (137-145); Total Bilirubin 0.5 mg/dL (0.2-1.3); Total Protein 6.3 g/dL (6.3-8.2)
[2024-03-25 11:43] LABS: Glucose,Whole Blood 132 mg/dL (70-110)
--- NOTE | 2024-03-25 12:59 | P.PN ---
Subjective Progress Note Date: 03/25/24 HISTORY OF PRESENT ILLNESS This is a 83-year-old male with past medical history of hypertension, paroxysmal atrial fibrillation on Xarelto, benign prostatic hypertrophy, hiatal hernia, hereditary factor VIII deficiency, hyperlipidemia, mild intermittent asthma, possible COPD. Patient was seen in the office today for shortness of breath x 5 days as well as a nonproductive cough. Patient denies any chest pain or discomfort. Patient denies fever or chills. Patient does state that he was recently in close proximity to sick individuals at a . Patient was swabbed in the emergency room; negative for influenza, COVID, and RSV. EKG revealed atrial fibrillation with rapid ventricular response. Patient was taken by ambulance to the emergency department where he was given Cardizem 30 mg PO, Solu-Medrol 125 mg IV push, 1 g of Rocephin, and 40 mg IV lasix. Chest x-ray shows bilateral lower lobe infiltrate. Patient will be admitted with consults to pulmonology and cardiology. 03/23: Patient is sitting up in bed at this time. He is less short of breath today. Transthoracic echo shows mildly impaired LV function with an EF of 40 to 45%, mild aortic stenosis, and mild aortic insufficiency. Patient remains in A- fib with a heart rate between 90 and 110. Diltiazem was discontinued. Patient is currently not on amiodarone. Continue metoprolol 50 mg twice daily. Continue Solu-Medrol 60 mg IV every 6 hours. Patient was switched to 20 mg oral Lasix once daily. Continue continue Xarelto 20 mg at bedtime. We will obtain repeat chest x-ray and labs tomorrow. Likely to be discharged tomorrow or Monday. 03/24: Patient is sitting up in the chair he continues to be somewhat short of breath when ambulating, he denies any chest pressure at this point in time, his echocardiogram showed ejection fraction of 45%, with mild aortic valve stenosis and mild aortic regurgitation, he remains in atrial fibrillation his heart rate is around 90-102, patient has been on metoprolol 50 mg orally twice every day, I will increase metoprolol to 75 mg orally twice every day, monitor the patient very closely decrease Solu-Medrol to 40 mg IV push every 8 hours, patient is yet to be seen by pulmonary medicine, will continue to monitor the patient very closely continue patient on DuoNeb 3 mL nebulization every 6 hours and Pulmicort 1 mg nebulization twice every day. 6: Patient continues to have dyspnea on exertion, he continues to be somewhat short of breath laying flat, he denies any abdominal pain, he did not have a bowel movement, he continues to urinate well, he is down and Solu-Medrol to 40 mg IV push every 12 hours, will keep the patient for another 24 hours, continue current treatment plan, I will follow-up with the patient in the next 24 hours hopefully will be able to discharge home tomorrow morning. REVIEW OF SYSTEMS Constitutional: No fever, no chills, no night sweats. No weight change. Reports weakness, Reports fatigue Reports lethargy. No daytime sleepiness. EENT: No headache. No blurred vision or double vision, no loss of vision. No loss of Hearing, no ringing in the ears, no dizziness. No nasal drainage or congestion. No epistaxis. No sore throat. Lungs: Reports shortness of breath, Reports cough, Reports sputum production. Reports wheezing. Cardiovascular: No chest pain, no lower extremity edema. No palpitations. No paroxysmal nocturnal dyspnea. No orthopnea. No lightheadedness or dizziness. No syncopal episodes. Abdominal: No abdominal pain. No nausea, vomiting. No diarrhea. No constip ation. No bloody or tarry stools. No loss of appetite. Genitourinary: No dysuria, increased frequency, urgency. No urinary retention. Musculoskeletal: No myalgias. Reports muscle weakness, no gait dysfunction, no frequent falls. No back pain. No neck pain. + Right elbow pain Integumentary: No wounds, no lesions. No rash or pruritus. No unusual bruising. No change in hair or nails. Neurologic: No aphasia. No facial droop. No change in mentation. No head injury. No headache. No paralysis. No paresthesia. Psychiatric: No depression. No anxiety. No mood swings. Endocrine: No abnormal blood sugars. No weight change. No excessive sweating or thirst. No cold intolerance. PHYSICAL EXAMINATION Gen: This is an obese 83-year-old male, resting in bed, appears to be fairly comfortable at rest. HEENT: Head is atraumatic, normocephalic. Pupils equal, round. Sclerae is anicteric. NECK: Supple. No JVD. No lymphadenopathy. No thyromegaly. LUNGS: Diminished breath sounds bilaterally, bilateral expiratory wheezes, no retractions HEART: First heart sound is depressed, second heart sound is normal, 2/6 systolic ejection murmur at the left sternal border, irregularly irregular due to atrial fibrillation ABDOMEN: Soft. Bowel sounds are present. No masses. No tenderness. EXTREMITIES: +1 pedal edema. No calf tenderness. Pain in the left hip. Do rsalis pedis palpable bilaterally. NEUROLOGICAL: Patient is awake, alert and oriented x3. Cranial nerves 2 through 12 are grossly intact, muscle power 4/5 upper and lower extremities bilaterally ASSESSMENT AND PLAN 1. Atrial fibrillation with RVR. Patient heart rate is between 90-103 continue metoprolol to 75 mg orally twice every day, continue Xarelto 20 mg once every day, monitor the patient very closely 2. Acute systolic heart failure due to afib with RVR. Continue metoprolol 75 milligram orally twice every day, continue patient on Farxiga 10 mg once every day, monitor input and output and daily weight, continue patient on Lasix 40 mg orally once every day. 3. Mild COPD exacerbation. Decrease Solu-Medrol to 40 mg IV push every 12 hours, continue DuoNeb 3 mm nebulization 4 times every day, continue Pulmicort 1 mg nebulization twice every day, pulmonary consultation 4. Mild intermittent asthma. Continue patient on DuoNeb 3 mL nebulization 4 times every day, Pulmicort 1 mg nebulization twice every day, I will continue patient on oxygen as needed, continue Singulair 10 mg at bedtime as well as levocetirizine or Claritin 10 mg orally once every day. 5. Paroxysmal atrial fibrillation. Continue Xarelto 20 mg at bedtime, continue metoprolol 75 mg twice daily. 6. Benign prostatic hypertrophy. Continue Flomax 0.4 mg at bedtime, monitor for urinary retention. 7. Hereditary factor VIII deficiency. Continue Xarelto 20 mg once daily. 8. Hyperlipidemia. Continue Zetia 10 mg daily and Atorvastatin 40 mg once a day. 9. Hypertension and hypertensive cardiovascular disease. Continue patient on metoprolol 75 mg orally twice every day. 10. GI prophylaxis. Protonix 40 mg po daily. 11. DVT prophylaxis. Continue Xarelto 20 mg once daily. 13. Full code. 14. Physical therapy evaluation. 15. Likely home on Monday. Objective - Vital Signs Vital signs: Vital Signs Temp 98.2 F 03/25/24 08:00 Pulse 88 03/25/24 12:44 Resp 20 03/25/24 08:00 BP 154/78 03/25/24 08:00 Pulse Ox 93 L 03/25/24 08:53 FiO2 Intake & Output 03/24/24 03/25/24 03/25/24 18:59 06:59 18:59 Intake Total 1320 240 Balance 1320 240 Intake: Oral 1320 240 Other: Voiding Method Toilet Toilet Urinal Urinal # Voids 2 1 - Labs CBC & Chem 7: 03/25/24 09:44 03/25/24 09:44 Labs: Abnormal Lab Results - Last 24 Hours (Table) 03/24/24 03/24/24 03/25/24 Range/Units 16:38 19:47 05:54 WBC (3.8-10.6) k/uL RDW (11.5-15.5) % Neutrophils # (1.3-7.7) k/uL Lymphocytes # (1.0-4.8) k/uL Chloride (98-107) mmol/L BUN (9-20) mg/dL Glucose (74-99) mg/dL POC Glucose (mg/dL) 112 H 156 H 111 H (70-110) mg/dL 03/25/24 03/25/24 03/25/24 Range/Units 09:44 09:44 11:35 WBC 17.5 H (3.8-10.6) k/uL RDW 16.0 H (11.5-15.5) % Neutrophils # 16.3 H (1.3-7.7) k/uL Lymphocytes # 0.6 L (1.0-4.8) k/uL Chloride 108 H (98-107) mmol/L BUN 37 H (9-20) mg/dL Glucose 133 H (74-99) mg/dL POC Glucose (mg/dL) 132 H (70-110) mg/dL Microbiology - Last 24 Hours (Table) 03/22/24 10:40 Blood Culture - Preliminary Blood 03/22/24 10:25 Blood Culture - Preliminary Blood
--- NOTE | 2024-03-25 14:16 | P.PN ---
Subjective Progress Note Date: 03/25/24 HISTORY OF PRESENT ILLNESS: This is a 83-year-old male with a past medical history significant for coronary artery disease, atrial fibrillation, hypertension, hyperlipidemia, peripheral vascular disease and asthma. Patient follows in the office with Dr. Davis. We have been asked to see the patient in consultation for A-fib with RVR. Patient examined at the bedside in the emergency room. Patient states he started feeling short of breath last Monday and it has progressively gotten worse. He does report having a frequent nonproductive cough. He denies any chest pain or pressure. No swelling in his legs or weight gain. He denies having any palpitations. Denied any fever or chills. Patient was found to be in A-fib with RVR upon presentation to the emergency room. Upon examination, the patient remains in atrial fibrillation with a heart rate around 120. DIAGNOSTICS: - EKG reveals atrial fibrillation with RVR. - Chest xray bilateral lower lobe infiltrate or atelectasis - Laboratory data: WBC 5.6. Hemoglobin 14.3. Platelet count 163. Sodium 137. Potassium 4.0. BUN 19. Creatinine 1.03. Lactic acid 3.0. Troponin negative x 2. proBNP 1230. - Current home cardiac medications include Xarelto 20 mg at night, metoprolol tartrate 50 mg in the morning and 25 mg in the evening, Zetia 10 mg daily, Lipitor 40 mg at night. - Most recent echocardiogram obtained in July 2023 revealed normal EF, moderate MR, mild AR, mild TR - Cardiac catheterization history: August 2023 revealing 20% distal left main, 20% proximal LAD, 20% proximal circumflex, 20% mid RCA. Right dominant system. 03/23/2024 Patient examined this morning. Patient is sitting up in the chair. Patient reports improvement in his shortness of breath. He does report having a mild cough this morning. He denies any chest pain or pressure. Telemetry reveals atrial fibrillation with heart rate [place] [id number]. Echocardiogram completed revealing ejection fraction 40 to 45%, no obvious regional wall motion abnormalities, mild aortic stenosis, and mild aortic insufficiency 03/24/2024 Patient examined this morning. Patient is sitting up in the chair. Patient reports having an episode of shortness of breath with wheezing overnight. He reports a" rattle" in his throat this morning. Telemetry reveals atrial fibrillation with heart rate between [id number]. 03/24 Patient is seen today in follow-up. He has been maintained on IV Lasix 40 mg oral daily started today by attending. Blood pressure 154/78, heart rate 88, pulse ox 93% on room air. Repeat blood work reveals WBC 17.5, hemoglobin 14.6. Potassium 4.4, BUN 37 creatinine 1.08. Patient does not feel as well today as he did yesterday. C/o cough but unable to bring up sputum. He feels heart rate rise with minimal activity. PHYSICAL EXAM: VITAL SIGNS: Reviewed. GENERAL: Well-developed in no acute distress. HEENT: Head is normocephalic. Pupils are equal, round. Sclerae anicteric. Mucous membranes of the mouth are moist. Neck supple. No JVD or thyromegaly LUNGS: Respirations even and unlabored. Lungs with a few mild expiratory wheezing noted HEART: Irregular rate and rhythm. S1 and S2 heard. ABDOMEN: Soft. Nondistended. Nontender. EXTREMITIES: Normal range of motion. No clubbing or cyanosis. Peripheral pulses intact. No lower extremity edema NEUROLOGIC: Awake and alert. Oriented x 3. 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 Cardiology will sign off this case and follow on an as-needed basis. Please rec onsult for any new concerns. Patient may follow-up in the office in one to 2 weeks. Nurse practitioner note has been reviewed by physician. Signing provider agrees with the documented findings, assessment, and plan of care documented by FLOW NURSE as a scribe. Objective - Vital Signs Vital signs: Vital Signs Temp 98.2 F 03/25/24 08:00 Pulse 88 03/25/24 12:44 Resp 20 03/25/24 08:00 BP 154/78 03/25/24 08:00 Pulse Ox 93 L 03/25/24 08:53 FiO2 Intake & Output 03/24/24 03/25/2403/25/24 18:59 06:59 18:59 Intake Total 1320 480 Balance 1320 480 Intake: Oral 1320 480 Other: Voiding Method Toilet Toilet Urinal Urinal # Voids 2 1 - Labs CBC & Chem 7: 03/25/24 09:44 03/25/24 09:44 Labs: Abnormal Lab Results - Last 24 Hours (Table) 03/24/24 03/24/24 03/25/24 Range/Units 16:38 19:47 05:54 WBC (3.8-10.6) k/uL RDW (11.5-15.5) % Neutrophils # (1.3-7.7) k/uL Lymphocytes # (1.0-4.8) k/uL Chloride (98-107) mmol/L BUN (9-20) mg/dL Glucose (74-99) mg/dL POC Glucose (mg/dL) 112 H 156 H 111 H (70-110) mg/dL 03/25/24 03/25/24 03/25/24 Range/Units 09:44 09:44 11:35 WBC 17.5 H (3.8-10.6) k/uL RDW 16.0 H (11.5-15.5) % Neutrophils # 16.3 H (1.3-7.7) k/uL Lymphocytes # 0.6 L (1.0-4.8) k/uL Chloride 108 H (98-107) mmol/L BUN 37 H (9-20) mg/dL Glucose 133 H (74-99) mg/dL POC Glucose (mg/dL) 132 H (70-110) mg/dL Microbiology - Last 24 Hours (Table) 03/22/24 10:40 Blood Culture - Preliminary Blood 03/22/24 10:25 Blood Culture - Preliminary Blood
--- NOTE | 2024-03-25 16:04 | P.PN ---
Subjective Progress Note Date: 03/25/24 83-year-old male patient came into the emergency department today with symptoms of shortness of breath progressively getting worse. He also had some nonproductive cough. Denies having any chest pain. No swelling lower extremities. He was found to be in A-fib RVR at the time of presentation to the emergency department. Patient is known to have coronary artery disease and chronic atrial fibrillation. The patient is also known to have hypertension hyperlipidemia peripheral vascular disease and history of bronchial asthma. His chest x-ray showed some limited left lower lobe atelectatic change. EKG was consistent with A-fib RVR. WBC count of 5.6 with a hemoglobin of 14 and a platelet count of 163. Creatinine was at 1.03 with a BUN of 19. Troponin was negative x 2 and proBNP level was 1230. The patient is known to have a preserved LV function based on a previous echocardiogram from July 2023 with moderate MR, mild AR and mild TR. Last cardiac catheterization was in August 2023 and the patient was found to have 20% left main, 20% LAD, 20% circumflex and 20% RCA lesion. The patient was accordingly hospitalized. Currently is on anticoagulation with Xarelto. He is also on oral Cardizem at 30 mg 3 times daily and is also on metoprolol 25 mg at bedtime and 50 mg in the morning. His current heart rate is around 117. BP is stable and the patient is currently on liters of oxygen by nasal cannula with a pulse ox of 94%. The rest spirometry that was done back in 2016 showed an FEV1 of 77% of predicted. The patient has remote history of DVT, and degenerative arthritis in addition. His last hospitalization was in December 2022 and at that time the patient had rhabdomyolysis related to a fall and a urine tract infection with Enterococcus faecalis treated with penicillins. He also developed encephalopathy at that time which essentially recovered. He is known to have mild COPD maintained on Trelegy Ellipta on outpatient basis. He is currently off amiodarone. 03/23/2024, the patient is being seen for a follow-up. Patient is doing well. Less short of breath compared to yesterday. Less bronchospastic and wheezy. The patient is currently resting comfortably on room air oxygen. Denies having any chest pain. The patient is currently on metoprolol and Cardizem drip has been discontinued. The patient was also taken off the IV Lasix and the patient will be started on oral Lasix by cardiology. Has echocardiogram was repeated yesterday and the patient was found to have a mildly impaired LV function with an ejection fraction of 40 to 45%. Concentric left ventricular hypertrophy was present. The patient remains on bronchodilators. Patient remains on steroids. The patient is also on anticoagulation with Xarelto. He remains in atrial fibrillation and the rate is under better control for now. 03/24/2024, the patient is being seen for a follow-up. The patient is calm and comfortable and patient is currently on room air oxygen with a pulse ox of 91%. Continues to have some noted bronchospasm and wheezing. Overall condition is improved considerably. Remains on bronchodilators. Remains on IV Solu-Medrol 40 mg every 8 hours. Remains on Lasix 40 mg p.o. daily. Antibiotic coverage essentially empiric and the cultures have been negative. BUN is 28 with a creatinine 1.1 and sodium of 139 with a potassium level of 4.2. No complaints. Sitting up in the chair and he reports improvement. The patient is seen today March 25, 2024 in follow-up on the selective care unit. He is currently sitting up at the bedside. Awake and alert in no acute distress. He is maintaining good O2 saturations in the 90s on room air. Does remain in atrial fibrillation with RVR. He does have suspected nonischemic cardiomyopathy with ejection fraction of 40 to 45%. Has some cough and congestion. Blood cultures revealed no growth. Count 17.5. Hemoglobin 14.6. Platelets 208. Sodium 139. Potassium 4.4. Bicarb 22. BUN 37. Creatinine 1.08. Glucose 133. He remains on DuoNeb ventilations, Pulmicort and performing scintillations, IV Solu-Medrol. He is anticoagulated with Xarelto. He is on antibiotics in the form of ceftriaxone. Objective - Vital Signs Vital signs: Vital Signs Temp 98.2 F 03/25/24 08:00 Pulse 110 H 03/25/24 15:53 Resp 20 03/25/24 15:53 BP 139/80 03/25/24 15:53 Pulse Ox 95 03/25/24 15:53 FiO2 Intake & Output 03/24/24 03/25/24 03/25/24 18:59 06:59 18:59 Intake Total 1320 480 Balance 1320 480 Intake: Oral 1320 480 Other: Voiding Method Toilet Toilet Urinal Urinal # Voids 2 1 - Exam GENERAL EXAM: Alert, pleasant 83-year-old gentleman, on room air, fair comfortable in no apparent distress. HEAD: Normocephalic. EYES: Normal reaction of pupils, equal size. NOSE: Clear with pink turbinates. THROAT: No erythema or exudates. NECK: No masses, no JVD. CHEST: No chest wall deformity. LUNGS: Equal air entry with end expiratory wheeze, few scattered rhonchi, diminished CVS: S1 and S2 normal with no audible murmur, irregular rhythm. ABDOMEN: No hepatosplenomegaly, normal bowel sounds, no guarding or rigidity. SPINE: No scoliosis or deformity SKIN: No rashes CENTRAL NERVOUS SYSTEM: No focal deficits, tone is normal in all 4 extremities. EXTREMITIES: There is no peripheral edema. No clubbing, no cyanosis. Peripheral pulses are intact. - Labs CBC & Chem 7: 03/25/24 09:44 03/25/24 09:44 Labs: Abnormal Lab Results - Last 24 Hours (Table) 03/24/24 03/24/24 03/25/24 Range/Units 16:38 19:47 05:54 WBC (3.8-10.6) k/uL RDW (11.5-15.5) % Neutrophils # (1.3-7.7) k/uL Lymphocytes # (1.0-4.8) k/uL Chloride (98-107) mmol/L BUN (9-20) mg/dL Glucose (74-99) mg/dL POC Glucose (mg/dL) 112 H 156 H 111 H (70-110) mg/dL 03/25/24 03/25/24 03/25/24 Range/Units 09:44 09:44 11:35 WBC 17.5 H (3.8-10.6) k/uL RDW 16.0 H (11.5-15.5) % Neutrophils # 16.3 H (1.3-7.7) k/uL Lymphocytes # 0.6 L (1.0-4.8) k/uL Chloride 108 H (98-107) mmol/L BUN 37 H (9-20) mg/dL Glucose 133 H (74-99) mg/dL POC Glucose (mg/dL) 132 H (70-110) mg/dL Microbiology - Last 24 Hours (Table) 03/22/24 10:40 Blood Culture - Preliminary Blood 03/22/24 10:25 Blood Culture - Preliminary Blood Assessment and Plan Assessment: Acute exacerbation of chronic systolic congestive heart failure impaired left ventricular systolic function with ejection fraction 40 to 45%. Acute on chronic shortness of breath secondary to A-fib RVR, he does have underlying COPD. Clinically improving. The patient remains atrial fibrillation the rate is under better control. Anticoagulated with Xarelto and remains on bronchodil ators and steroids Acute hypoxic respiratory failure , improved and the patient is currently on joselyn m air oxygen Acute exacerbation of chronic COPD. The patient is known to have COPD with an FEV1 of 77% of predicted at baseline maintain on Trelegy Ellipta on outpatient basis with a mild component of COPD exacerbation. Mild lactic acidosis, improved Mild nonocclusive coronary artery disease Hypertension Hyperlipidemia Peripheral vascular disease Remote history of a DVT, involving the right lower extremity BPH Impaired hearing Osteoarthritis History of hiatal hernia Plan: The patient was seen and evaluated Labs and medications reviewed Continue bronchodilators and steroids Continue diuretics Anticoagulated with Xarelto We will continue to follow I have personally seen and examined the patient, performed the documentation and the assessment and plan as written. Number of minutes spent on the visit: 10.
[2024-03-25 16:18] LABS: Glucose,Whole Blood 116 mg/dL (70-110)
[2024-03-25] MEDS: methylPREDNISolone SOD SUCCI 40 MG/ML 1 ML VIAL IV SCH (17:27)
[2024-03-25] MEDS: FORMOTEROL FUMARATE 20 MCG/2 ML NEBU INHALATION SCH (20:32)
[2024-03-25 20:49] LABS: Glucose,Whole Blood 137 mg/dL (70-110)
[2024-03-25] MEDS ORDERED: methylPREDNISolone SOD SUCCI 40 MG/ML 1 ML VIAL IV SCH (21:00)
[2024-03-26 06:14] LABS: Glucose,Whole Blood 106 mg/dL (70-110)
[2024-03-26 12:06] LABS: Glucose,Whole Blood 155 mg/dL (70-110)
--- NOTE | 2024-03-26 12:59 | P.PN ---
Subjective Progress Note Date: 03/26/24 HISTORY OF PRESENT ILLNESS This is a 83-year-old male with past medical history of hypertension, paroxysmal atrial fibrillation on Xarelto, benign prostatic hypertrophy, hiatal hernia, hereditary factor VIII deficiency, hyperlipidemia, mild intermittent asthma, possible COPD. Patient was seen in the office today for shortness of breath x 5 days as well as a nonproductive cough. Patient denies any chest pain or discomfort. Patient denies fever or chills. Patient does state that he was recently in close proximity to sick individuals at a . Patient was swabbed in the emergency room; negative for influenza, COVID, and RSV. EKG revealed atrial fibrillation with rapid ventricular response. Patient was taken by ambulance to the emergency department where he was given Cardizem 30 mg PO, Solu-Medrol 125 mg IV push, 1 g of Rocephin, and 40 mg IV lasix. Chest x-ray shows bilateral lower lobe infiltrate. Patient will be admitted with consults to pulmonology and cardiology. 03/23: Patient is sitting up in bed at this time. He is less short of breath today. Transthoracic echo shows mildly impaired LV function with an EF of 40 to 45%, mild aortic stenosis, and mild aortic insufficiency. Patient remains in A- fib with a heart rate between 90 and 110. Diltiazem was discontinued. Patient is currently not on amiodarone. Continue metoprolol 50 mg twice daily. Continue Solu-Medrol 60 mg IV every 6 hours. Patient was switched to 20 mg oral Lasix once daily. Continue continue Xarelto 20 mg at bedtime. We will obtain repeat chest x-ray and labs tomorrow. Likely to be discharged tomorrow or Monday. 03/24: Patient is sitting up in the chair he continues to be somewhat short of breath when ambulating, he denies any chest pressure at this point in time, his echocardiogram showed ejection fraction of 45%, with mild aortic valve stenosis and mild aortic regurgitation, he remains in atrial fibrillation his heart rate is around 90-102, patient has been on metoprolol 50 mg orally twice every day, I will increase metoprolol to 75 mg orally twice every day, monitor the patient very closely decrease Solu-Medrol to 40 mg IV push every 8 hours, patient is yet to be seen by pulmonary medicine, will continue to monitor the patient very closely continue patient on DuoNeb 3 mL nebulization every 6 hours and Pulmicort 1 mg nebulization twice every day. 03/25: Patient continues to have dyspnea on exertion, he continues to be somewhat short of breath laying flat, he denies any abdominal pain, he did not have a bowel movement, he continues to urinate well, he is down and Solu-Medrol to 40 mg IV push every 12 hours, will keep the patient for another 24 hours, continue current treatment plan, I will follow-up with the patient in the next 24 hours hopefully will be able to discharge home tomorrow morning. 03/26: Patient is sitting up in bed he is feeling a bit better, he continues to have some minimal expiratory wheezes, he was seen yesterday by pulmonary medicine, his Solu-Medrol was increased back to 40 mg IV push every 8 hours, he was started on Perforomist twice every day, continue the current treatment plan, continue to follow-up with the patient for another 24 hours, hopefully he will be able to be discharged home in the next 24 hours. I will keep the patient on current steroid dose unless otherwise directed by pulmonary team, patient has been seen by cardiology as well, there were signed off, I would think the patient can be discharged home in the next 24 hours if okay with pulmonary medicine. REVIEW OF SYSTEMS Constitutional: No fever, no chills, no night sweats. No weight change. Reports weakness, Reports fatigue Reports lethargy. No daytime sleepiness. EENT: No headache. No blurred vision or double vision, no loss of vision. No loss of Hearing, no ringing in the ears, no dizziness. No nasal drainage or congestion. No epistaxis. No sore throat. Lungs: Reports shortness of breath, Reports cough, Reports sputum production. Reports wheezing. Cardiovascular: No chest pain, no lower extremity edema. No palpitations. No paroxysmal nocturnal dyspnea. No orthopnea. No lightheadedness or dizziness. No syncopal episodes. Abdominal: No abdominal pain. No nausea, vomiting. No diarrhea. No constipation. No bloody or tarry stools. No loss of appetite. Genitourinary: No dysuria, increased frequency, urgency. No urinary retention. Musculoskeletal: No myalgias. Reports muscle weakness, no gait dysfunction, no frequent falls. No back pain. No neck pain. + Right elbow pain Integumentary: No wounds, no lesions. No rash or pruritus. No unusual bruising. No change in hair or nails. Neurologic: No aphasia. No facial droop. No change in mentation. No head injury. No headache. No paralysis. No paresthesia. Psychiatric: No depression. No anxiety. No mood swings. Endocrine: No abnormal blood sugars. No weight change. No excessive sweating or thirst. No cold intolerance. PHYSICAL EXAMINATION Gen: This is an obese 83-year-old male, resting in bed, appears to be fairly comfortable at rest. HEENT: Head is atraumatic, normocephalic. Pupils equal, round. Sclerae is anicteric. NECK: Supple. No JVD. No lymphadenopathy. No thyromegaly. LUNGS: Diminished breath sounds bilaterally, bilateral expiratory wheezes, no retractions HEART: First heart sound is depressed, second heart sound is normal, 2/6 systolic ejection murmur at the left sternal border, irregularly irregular due to atrial fibrillation ABDOMEN: Soft. Bowel sounds are present. No masses. No tenderness. EXTREMITIES: +1 pedal edema. No calf tenderness. Pain in the left hip. Dorsalis pedis palpable bilaterally. NEUROLOGICAL: Patient is awake, alert and oriented x3. Cranial nerves 2 through 12 are grossly intact, muscle power 4/5 upper and lower extremities bilaterally ASSESSMENT AND PLAN 1. Atrial fibrillation with RVR. Patient heart rate is between 90-103 continue metoprolol to 75 mg orally twice every day, continue Xarelto 20 mg once every day, monitor the patient very closely 2. Acute systolic heart failure due to afib with RVR. Continue metoprolol 75 milligram orally twice every day, continue patient on Farxiga 10 mg once every day, monitor input and output and daily weight, continue patient on Lasix 40 mg orally once every day. 3. Mild COPD exacerbation. Continue Solu-Medrol to 40 mg IV push every 8 hours, continue DuoNeb 3 mm nebulization 4 times every day, continue Pulmicort 1 mg nebulization twice every day, continue performance twice every day as well, pulmonary consultation appreciated. 4. Mild intermittent asthma. Continue patient on DuoNeb 3 mL nebulization 4 times every day, Pulmicort 1 mg nebulization twice every day, I will continue patient on oxygen as needed, continue Singulair 10 mg at bedtime as well as levocetirizine or Claritin 10 mg orally once every day. 5. Paroxysmal atrial fibrillation. Continue Xarelto 20 mg at bedtime, continue metoprolol 75 mg twice daily. 6. Benign prostatic hypertrophy. Continue Flomax 0.4 mg at bedtime, monitor for urinary retention. 7. Hereditary factor VIII deficiency. Continue Xarelto 20 mg once daily. 8. Hyperlipidemia. Continue Zetia 10 mg daily and Atorvastatin 40 mg once a day. 9. Hypertension and hypertensive cardiovascular disease. Continue patient on metoprolol 75 mg orally twice every day. 10. GI prophylaxis. Protonix 40 mg po daily. 11. DVT prophylaxis. Continue Xarelto 20 mg once daily. 13. Full code. 14. Physical therapy evaluation. 15. Likely home tomorrow morning. Objective - Vital Signs Vital signs: Vital Signs Temp 97.5 F L 03/26/24 04:00 Pulse 88 03/26/24 11:38 Resp 16 03/26/24 04:00 BP 122/78 03/26/24 04:00 Pulse Ox 91 L 03/26/24 04:00 FiO2 Intake & Output 03/25/24 03/26/24 03/26/24 18:59 06:59 18:59 Intake Total 598 118 Output Total 175 Balance 598 -175 118 Intake: Oral 598 118 Output: Urine 175 Other: Voiding Method Toilet Urinal # Voids 2 2 - Labs CBC & Chem 7: 03/25/24 09:44 03/25/24 09:44 Labs: Abnormal Lab Results - Last 24 Hours (Table) 03/25/24 03/25/24 03/26/24 Range/Units 16:13 20:19 12:04 POC Glucose (mg/dL) 116 H 137 H 155 H (70-110) mg/dL Microbiology - Last 24 Hours (Table) 03/22/24 10:40 Blood Culture - Preliminary Blood 03/22/24 10:25 Blood Culture - Preliminary Blood
[2024-03-26 14:35] LABS: Anisocytosis Slight; Basophils % (A) 0 %; Eosinophils % (A) 0 %; HCT 45.6 % (39.0-53.0); HGB 14.7 gm/dL (13.0-17.5); Lymphocytes # (A) 0.4 k/uL (1.0-4.8); Lymphocytes % (A) 3 %; MCH 29.6 pg (25.0-35.0); MCHC 32.3 g/dL (31.0-37.0); MCV 91.4 fL (80.0-100.0); Mean Platelet Volume 8.7; Monocytes # (A) 0.4 k/uL (0-1.0); Monocytes % (A) 3 %; Neutrophils # (A) 13.3 k/uL (1.3-7.7); Neutrophils % (A) 93 %; Platelet Count 221 k/uL (150-450); RBC 4.98 m/uL (4.30-5.90); WBC 14.2 k/uL (3.8-10.6)
[2024-03-26 14:50] LABS: ALT 24 U/L (4-49); AST 28 U/L (17-59); African American GFR (CKD) 81 (>60 ml/min/1.73 sqM); Albumin 3.5 g/dL (3.5-5.0); Alkaline Phosphatase 101 U/L (38-126); Anion Gap 9 mmol/L; Blood Urea Nitrogen 39 mg/dL (9-20); Calcium 8.5 mg/dL (8.4-10.2); Carbon Dioxide 24 mmol/L (22-30); Chloride 105 mmol/L (98-107); Glucose 131 mg/dL (74-99); Non-African American GFR(CKD) 70 (>60 ml/min/1.73 sqM); Potassium 4.4 mmol/L (3.5-5.1); Sodium 138 mmol/L (137-145); Total Bilirubin 0.5 mg/dL (0.2-1.3)
--- NOTE | 2024-03-26 15:40 | P.PN ---
Subjective Progress Note Date: 03/26/24 83-year-old male patient came into the emergency department today with symptoms of shortness of breath progressively getting worse. He also had some nonproductive cough. Denies having any chest pain. No swelling lower extremities. He was found to be in A-fib RVR at the time of presentation to the emergency department. Patient is known to have coronary artery disease and chronic atrial fibrillation. The patient is also known to have hypertension hyperlipidemia peripheral vascular disease and history of bronchial asthma. His chest x-ray showed some limited left lower lobe atelectatic change. EKG was consistent with A-fib RVR. WBC count of 5.6 with a hemoglobin of 14 and a platelet count of 163. Creatinine was at 1.03 with a BUN of 19. Troponin was negative x 2 and proBNP level was 1230. The patient is known to have a preserved LV function based on a previous echocardiogram from July 2023 with moderate MR, mild AR and mild TR. Last cardiac catheterization was in August 2023 and the patient was found to have 20% left main, 20% LAD, 20% circumflex and 20% RCA lesion. The patient was accordingly hospitalized. Currently is on anticoagulation with Xarelto. He is also on oral Cardizem at 30 mg 3 times daily and is also on metoprolol 25 mg at bedtime and 50 mg in the morning. His current heart rate is around 117. BP is stable and the patient is currently on liters of oxygen by nasal cannula with a pulse ox of 94%. The rest spirometry that was done back in 2016 showed an FEV1 of 77% of predicted. The patient has remote history of DVT, and degenerative arthritis in addition. His last hospitalization was in December 2022 and at that time the patient had rhabdomyolysis related to a fall and a urine tract infection with Enterococcus faecalis treated with penicillins. He also developed encephalopathy at that time which essentially recovered. He is known to have mild COPD maintained on Trelegy Ellipta on outpatient basis. He is currently off amiodarone. 03/23/2024, the patient is being seen for a follow-up. Patient is doing well. Less short of breath compared to yesterday. Less bronchospastic and wheezy. The patient is currently resting comfortably on room air oxygen. Denies having any chest pain. The patient is currently on metoprolol and Cardizem drip has been discontinued. The patient was also taken off the IV Lasix and the patient will be started on oral Lasix by cardiology. Has echocardiogram was repeated yesterday and the patient was found to have a mildly impaired LV function with an ejection fraction of 40 to 45%. Concentric left ventricular hypertrophy was present. The patient remains on bronchodilators. Patient remains on steroids. The patient is also on anticoagulation with Xarelto. He remains in atrial fibrillation and the rate is under better control for now. 03/24/2024, the patient is being seen for a follow-up. The patient is calm and comfortable and patient is currently on room air oxygen with a pulse ox of 91%. Continues to have some noted bronchospasm and wheezing. Overall condition is improved considerably. Remains on bronchodilators. Remains on IV Solu-Medrol 40 mg every 8 hours. Remains on Lasix 40 mg p.o. daily. Antibiotic coverage essentially empiric and the cultures have been negative. BUN is 28 with a creatinine 1.1 and sodium of 139 with a potassium level of 4.2. No complaints. Sitting up in the chair and he reports improvement. The patient is seen today March 25, 2024 in follow-up on the selective care unit. He is currently sitting up at the bedside. Awake and alert in no acute distress. He is maintaining good O2 saturations in the 90s on room air. Does remain in atrial fibrillation with RVR. He does have suspected nonischemic cardiomyopathy with ejection fraction of 40 to 45%. Has some cough and congestion. Blood cultures revealed no growth. Count 17.5. Hemoglobin 14.6. Platelets 208. Sodium 139. Potassium 4.4. Bicarb 22. BUN 37. Creatinine 1.08. Glucose 133. He remains on DuoNeb ventilations, Pulmicort and performing scintillations, IV Solu-Medrol. He is anticoagulated with Xarelto. He is on antibiotics in the form of ceftriaxone. The patient is seen today March 26, 2024 in follow-up on the selective care unit. He is currently sitting up in a chair. Awake and alert in no acute distress. He is maintaining good O2 saturations in the 90s on room air. He is feeling better today compared to yesterday. White count 14.2. Hemoglobin 14.7. Platel ets 221. Sodium 138. Potassium 4.4. Bicarb 24. BUN 39. Creatinine 1.00. Glucose 131. He remains on antibiotics in the form of ceftriaxone. Continued on bronchodilators and steroids. Anticoagulated with Xarelto. Remains on oral diuretics. Objective - Vital Signs Vital signs: Vital Signs Temp 97.5 F L 03/26/24 04:00 Pulse 88 03/26/24 11:38 Resp 16 03/26/24 04:00 BP 122/78 03/26/24 04:00 Pulse Ox 91 L 03/26/24 04:00 FiO2 Intake & Output 03/25/24 03/26/24 03/26/24 18:59 06:59 18:59 Intake Total 598 236 Output Total 175 Balance 598 -175 236 Intake: Oral 598 236 Output: Urine 175 Other: Voiding Method Toilet Urinal # Voids 2 2 - Exam GENERAL EXAM: Alert, 83-year-old gentleman, on room air, up in a chair, comfortable in no apparent distress. HEAD: Normocephalic. EYES: Normal reaction of pupils, equal size. NOSE: Clear with pink turbinates. THROAT: No erythema or exudates. NECK: No masses, no JVD. CHEST: No chest wall deformity. LUNGS: Equal air entry with end expiratory wheeze, few scattered rhonchi, diminished CVS: S1 and S2 normal with no audible murmur, irregular rhythm. ABDOMEN: No hepatosplenomegaly, normal bowel sounds, no guarding or rigidity. SPINE: No scoliosis or deformity SKIN: No rashes CENTRAL NERVOUS SYSTEM: No focal deficits, tone is normal in all 4 extremities. EXTREMITIES: There is no peripheral edema. No clubbing, no cyanosis. Peripheral pulses are intact. - Labs CBC & Chem 7: 03/26/24 13:22 03/26/24 13:22 Labs: Abnormal Lab Results - Last 24 Hours (Table) 03/25/24 03/25/24 03/26/24 Range/Units 16:13 20:19 12:04 WBC (3.8-10.6) k/uL RDW (11.5-15.5) % Neutrophils # (1.3-7.7) k/uL Lymphocytes # (1.0-4.8) k/uL BUN (9-20) mg/dL Glucose (74-99) mg/dL POC Glucose (mg/dL) 116 H 137 H 155 H (70-110) mg/dL Total Protein (6.3-8.2) g/dL 03/26/24 03/26/24 Range/Units 13:22 13:22 WBC 14.2 H (3.8-10.6) k/uL RDW 16.0 H (11.5-15.5) % Neutrophils # 13.3 H (1.3-7.7) k/uL Lymphocytes # 0.4 L (1.0-4.8) k/uL BUN 39 H (9-20) mg/dL Glucose 131 H (74-99) mg/dL POC Glucose (mg/dL) (70-110) mg/dL Total Protein 6.0 L (6.3-8.2) g/dL Microbiology - Last 24 Hours (Table) 03/22/24 10:40 Blood Culture - Preliminary Blood 03/22/24 10:25 Blood Culture - Preliminary Blood Assessment and Plan Assessment: Acute exacerbation of chronic systolic congestive heart failure impaired left ventricular systolic function with ejection fraction 40 to 45%. Acute on chronic shortness of breath secondary to A-fib RVR, he does have underlying COPD. Clinically improving. The patient remains atrial fibrillation the rate is under better control. Anticoagulated with Xarelto and remains on bronchodilators and steroids Acute hypoxic respiratory failure , improved and the patient is currently on room air oxygen Acute exacerbation of chronic COPD. The patient is known to have COPD with an FEV1 of 77% of predicted at baseline maintain on Trelegy Ellipta on outpatient basis with a mild component of COPD exacerbation. Mild lactic acidosis, improved Mild nonocclusive coronary artery disease Hypertension Hyperlipidemia Peripheral vascular disease Remote history of a DVT, involving the right lower extremity BPH Impaired hearing Osteoarthritis History of hiatal hernia Plan: The patient was seen and evaluated Labs and medications reviewed Continue the current treatment plan Home once cleared by cardiology I have personally seen and examined the patient, performed the documentation and the assessment and plan as written. Number of minutes spent on the visit: 10.
[2024-03-26 16:29] LABS: Glucose,Whole Blood 152 mg/dL (70-110)
[2024-03-26 20:24] LABS: Glucose,Whole Blood 122 mg/dL (70-110)
[2024-03-27 06:20] LABS: Glucose,Whole Blood 128 mg/dL (70-110)
--- NOTE | 2024-03-27 07:45 | XR ---
EXAMINATION TYPE: XR chest 1V portable DATE OF EXAM: 03/27/2024 COMPARISON: 03/22/2024 HISTORY: Shortness of breath TECHNIQUE: Single frontal view of the chest is obtained. FINDINGS: There is bilateral consolidation greater on the right. Elevated left hemidiaphragm. No pne umothorax. Diffuse osteopenia and arthropathy of the shoulders. Heart size is mildly enlarged. No pne umothorax. No sizable pleural effusion. IMPRESSION: Bilateral lower lobe atelectasis or infiltrate. Findings stable.
[2024-03-27 11:45] LABS: Glucose,Whole Blood 164 mg/dL (70-110)
--- NOTE | 2024-03-27 13:33 | P.PN ---
Subjective Progress Note Date: 03/27/24 Principal diagnosis: Acute exacerbation of chronic systolic congestive heart failure and underlying COPD with acute exacerbation 83-year-old male patient came into the emergency department today with symptoms of shortness of breath progressively getting worse. He also had some nonproductive cough. Denies having any chest pain. No swelling lower extremities. He was found to be in A-fib RVR at the time of presentation to the emergency department. Patient is known to have coronary artery disease and chronic atrial fibrillation. The patient is also known to have hypertension hyperlipidemia peripheral vascular disease and history of bronchial asthma. His chest x-ray showed some limited left lower lobe atelectatic change. EKG was consistent with A-fib RVR. WBC count of 5.6 with a hemoglobin of 14 and a platelet count of 163. Creatinine was at 1.03 with a BUN of 19. Troponin was negative x 2 and proBNP level was 1230. The patient is known to have a preserved LV function based on a previous echocardiogram from July 2023 with moderate MR, mild AR and mild TR. Last cardiac catheterization was in August 2023 and the patient was found to have 20% left main, 20% LAD, 20% circumflex and 20% RCA lesion. The patient was accordingly hospitalized. Currently is on anticoagulation with Xarelto. He is also on oral Cardizem at 30 mg 3 times daily and is also on metoprolol 25 mg at bedtime and 50 mg in the morning. His current heart rate is around 117. BP is stable and the patient is currently on liters of oxygen by nasal cannula with a pulse ox of 94%. The rest spirometry that was done back in 2016 showed an FEV1 of 77% of predicted. The patient has remote history of DVT, and degenerative arthritis in addition. His last hospitalization was in December 2022 and at that time the patient had rhabdomyolysis related to a fall and a urine tract infection with Enterococcus faecalis treated with penicillins. He also developed encephalopathy at that time which essentially recovered. He is known to have mild COPD maintained on Trelegy Ellipta on outpatient basis. He is currently off amiodarone. 03/23/2024, the patient is being seen for a follow-up. Patient is doing well. Less short of breath compared to yesterday. Less bronchospastic and wheezy. The patient is currently resting comfortably on room air oxygen. Denies having any chest pain. The patient is currently on metoprolol and Cardizem drip has been discontinued. The patient was also taken off the IV Lasix and the patient will be started on oral Lasix by cardiology. Has echocardiogram was repeated yesterday and the patient was found to have a mildly impaired LV function with an ejection fraction of 40 to 45%. Concentric left ventricular hypertrophy was present. The patient remains on bronchodilators. Patient remains on steroids. The patient is also on anticoagulation with Xarelto. He remains in atrial fibrillation and the rate is under better control for now. 03/24/2024, the patient is being seen for a follow-up. The patient is calm and comfortable and patient is currently on room air oxygen with a pulse ox of 91%. Continues to have some noted bronchospasm and wheezing. Overall condition is improved considerably. Remains on bronchodilators. Remains on IV Solu-Medrol 40 mg every 8 hours. Remains on Lasix 40 mg p.o. daily. Antibiotic coverage essentially empiric and the cultures have been negative. BUN is 28 with a creatinine 1.1 and sodium of 139 with a potassium level of 4.2. No complaints. Sitting up in the chair and he reports improvement. The patient is seen today March 25, 2024 in follow-up on the selective care unit. He is currently sitting up at the bedside. Awake and alert in no acute distress. He is maintaining good O2 saturations in the 90s on room air. Does remain in atrial fibrillation with RVR. He does have suspected nonischemic cardiomyopathy with ejection fraction of 40 to 45%. Has some cough and congestion. Blood cultures revealed no growth. Count 17.5. Hemoglobin 14.6. Platelets 208. Sodium 139. Potassium 4.4. Bicarb 22. BUN 37. Creatinine 1.08. Glucose 133. He remains on DuoNeb ventilations, Pulmicort and performing scintillations, IV Solu-Medrol. He is anticoagulated with Xarelto. He is on antibiotics in the form of ceftriaxone. The patient is seen today March 26, 2024 in follow-up on the selective care unit. He is currently sitting up in a chair. Awake and alert in no acute distress. He is maintaining good O2 saturations in the 90s on room air. He is feeling better today compared to yesterday. White count 14.2. Hemoglobin 14.7. Platelets 221. Sodium 138. Potassium 4.4. Bicarb 24. BUN 39. Creatinine 1.00. Glucose 131. He remains on antibiotics in the form of ceftriaxone. Continued on bronchodilators and steroids. Anticoagulated with Xarelto. Remains on oral diuretics. Patient was reevaluated today on March 2706/2024, patient is feeling better, patient is asking to be discharged home, and I felt that the patient needed to be cleared by cardiology pulmonary schaefer continues to have some minimal cough and wheezing patient is on proper bronchodilators and steroids, he is also on diuretics. Cardiology is following for his congestive heart failure. Again clinically the patient is feeling better and he would like to be discharged home. Labs today where not done except for a blood sugar of 164 Objective - Vital Signs Vital signs: Vital Signs Temp 97.9 F 03/27/24 08:00 Pulse 96 03/27/24 12:00 Resp 16 03/27/24 08:00 BP 113/76 03/27/24 04:00 Pulse Ox 92 L 03/27/24 08:00 FiO2 Intake & Output 03/26/24 03/27/24 03/27/24 18:59 06:59 18:59 Intake Total 354 118 Output Total 200 Balance 354 -200 118 Weight 107.9 kg Intake: Oral 354 118 Output: Urine 200 Other: Voiding Method Toilet Toilet Urinal Urinal # Voids 1 - Exam GENERAL EXAM: Revealed 83-year-old white male in no distress HEAD: Normocephalic. EYES: Normal reaction of pupils, equal size. NOSE: Clear with pink turbinates. THROAT: No erythema or exudates. NECK: No masses, no JVD. CHEST: No chest wall deformity. LUNGS: Fine crackles and wheezing noted bilaterally CVS: S1 and S2 normal with no audible murmur, irregular rhythm. ABDOMEN: No hepatosplenomegaly, normal bowel sounds, no guarding or rigidity. SKIN: No rashes CENTRAL NERVOUS SYSTEM: Alert and oriented x 3 no gross focal deficit EXTREMITIES: There is no peripheral edema. No clubbing, no cyanosis. Peripheral pulses are intact. - Labs CBC & Chem 7: 03/26/24 13:22 03/26/24 13:22 Labs: Abnormal Lab Results - Last 24 Hours (Table) 03/26/24 03/26/24 03/26/24 Range/Units 13:22 13:22 16:28 WBC 14.2 H (3.8-10.6) k/uL RDW 16.0 H (11.5-15.5) % Neutrophils # 13.3 H (1.3-7.7) k/uL Lymphocytes # 0.4 L (1.0-4.8) k/uL BUN 39 H (9-20) mg/dL Glucose 131 H (74-99) mg/dL POC Glucose (mg/dL) 152 H (70-110) mg/dL Total Protein 6.0 L (6.3-8.2) g/dL 03/26/24 03/27/24 03/27/24 Range/Units 20:04 06:18 11:43 WBC (3.8-10.6) k/uL RDW (11.5-15.5) % Neutrophils # (1.3-7.7) k/uL Lymphocytes # (1.0-4.8) k/uL BUN (9-20) mg/dL Glucose (74-99) mg/dL POC Glucose (mg/dL) 122 H 128 H 164 H (70-110) mg/dL Total Protein (6.3-8.2) g/dL Assessment and Plan Assessment: Impression: Acute exacerbation of chronic systolic congestive heart failure impaired left ventricular systolic function with ejection fraction 40 to 45%. Acute on chronic shortness of breath secondary to A-fib RVR, he does have underlying COPD. Acute hypoxic respiratory failure , improved and the patient is currently on room air oxygen Acute exacerbation of chronic COPD. The patient is known to have COPD with an FEV1 of 77% of predicted at baseline maintain on Trelegy Ellipta on outpatient basis with a mild component of COPD exacerbation. Mild lactic acidosis, improved Mild nonocclusive coronary artery disease Hypertension Hyperlipidemia Peripheral vascular disease Remote history of a DVT, involving the right lower extremity BPH Impaired hearing Osteoarthritis History of hiatal hernia Recommendation: Continue bronchodilators, continue diuretics, Transition to oral prednisone, Will clear the patient for discharge if cleared by cardiology. Otherwise we will continue to follow
--- NOTE | 2024-03-27 14:54 | P.DS ---
Providers Date of admission: 03/22/24 12:33 Expected date of discharge: 03/27/24 Attending physician: Buzz Zimmerman Consults: 03/22/24 12:31 Consult Physician Urgent Consulting Provider: [facility] Consult Reason/Comments: A-fib with rapid ventricular response Do you want consulting provider notified?: Yes Consult Physician Urgent Consulting Provider: Karie Perez Consult Reason/Comments: COPD Do you want consulting provider notified?: Yes Primary care physician: Buzz Zimmerman Hospital Course: HISTORY OF PRESENT ILLNESS This is a 83-year-old male with past medical history of hypertension, paroxysmal atrial fibrillation on Xarelto, benign prostatic hypertrophy, hiatal hernia, hereditary factor VIII deficiency, hyperlipidemia, mild intermittent asthma, possible COPD. Patient was seen in the office today for shortness of breath x 5 days as well as a nonproductive cough. Patient denies any chest pain or discomfort. Patient denies fever or chills. Patient does state that he was recently in close proximity to sick individuals at a . Patient was swabbed in the emergency room; negative for influenza, COVID, and RSV. EKG revealed atrial fibrillation with rapid ventricular response. Patient was taken by ambulance to the emergency department where he was given Cardizem 30 mg PO, Solu-Medrol 125 mg IV push, 1 g of Rocephin, and 40 mg IV lasix. Chest x-ray shows bilateral lower lobe infiltrate. Patient will be admitted with consults to pulmonology and cardiology. 03/23: Patient is sitting up in bed at this time. He is less short of breath today. Transthoracic echo shows mildly impaired LV function with an EF of 40 to 45%, mild aortic stenosis, and mild aortic insufficiency. Patient remains in A- fib with a heart rate between 90 and 110. Diltiazem was discontinued. Patient is currently not on amiodarone. Continue metoprolol 50 mg twice daily. Continue Solu-Medrol 60 mg IV every 6 hours. Patient was switched to 20 mg oral Lasix once daily. Continue continue Xarelto 20 mg at bedtime. We will obtain repeat chest x-ray and labs tomorrow. Likely to be discharged tomorrow or Monday. 03/24: Patient is sitting up in the chair he continues to be somewhat short of breath when ambulating, he denies any chest pressure at this point in time, his echocardiogram showed ejection fraction of 45%, with mild aortic valve stenosis and mild aortic regurgitation, he remains in atrial fibrillation his heart rate is around 90-102, patient has been on metoprolol 50 mg orally twice every day, I will increase metoprolol to 75 mg orally twice every day, monitor the patient very closely decrease Solu-Medrol to 40 mg IV push every 8 hours, patient is yet to be seen by pulmonary medicine, will continue to monitor the patient very closely continue patient on DuoNeb 3 mL nebulization every 6 hours and Pulmicort 1 mg nebulization twice every day. 03/25: Patient continues to have dyspnea on exertion, he continues to be somewhat short of breath laying flat, he denies any abdominal pain, he did not have a bowel movement, he continues to urinate well, he is down and Solu-Medrol to 40 mg IV push every 12 hours, will keep the patient for another 24 hours, continue current treatment plan, I will follow-up with the patient in the next 24 hours hopefully will be able to discharge home tomorrow morning. 03/26: Patient is sitting up in bed he is feeling a bit better, he continues to have some minimal expiratory wheezes, he was seen yesterday by pulmonary medicine, his Solu-Medrol was increased back to 40 mg IV push every 8 hours, he was started on Perforomist twice every day, continue the current treatment plan, continue to follow-up with the patient for another 24 hours, hopefully he will be able to be discharged home in the next 24 hours. I will keep the patient on current steroid dose unless otherwise directed by pulmonary team, patient has been seen by cardiology as well, there were signed off, I would think the patient can be discharged home in the next 24 hours if okay with pulmonary medicine. 03/27: Patient is sitting up in bed is feeling better today, he was transitioned to oral prednisone, he denies any chest pain, he continues to be somewhat short of breath with activity, he continues to be on current treatment plan, patient is willing to be discharged home today, follow-up with us as an outpatient in the next week. He is to follow-up with cardiology as well as pulmonary medicine as an outpatient. 03/28: Patient is sitting up in the chair no apparent distress, he is requiring no oxygen at this time, his oxygen saturation on room air with ambulation is 94%, continue with current treatment plan, switch the patient to oral prednisone, prescription was called to his pharmacy, send the patient home without oxygen, follow-up with me as an outpatient 1 week. Discharge diagnoses: 1. Atrial fibrillation with RVR. 2. Acute systolic heart failure due to afib with RVR. 3. Mild COPD exacerbation. 4. Mild intermittent asthma. 5. Paroxysmal atrial fibrillation. 6. Benign prostatic hypertrophy. 7. Hereditary factor VIII deficiency. 8. Hyperlipidemia. 9. Hypertension and hypertensive cardiovascular disease. Patient Condition at Discharge: Stable Plan - Discharge Summary Discharge Rx Participant: No New Discharge Prescriptions: New predniSONE [Deltasone] 40 mg PO DAILY #20 tab Metoprolol Tartrate [Lopressor] 75 mg PO BID #60 tab Dapagliflozin Propanediol [Farxiga] 10 mg PO DAILY #30 tab Furosemide [Lasix] 40 mg PO DAILY #30 tab Pantoprazole [Protonix] 40 mg PO AC-BRKFST #30 tab Continue Rivaroxaban [Xarelto] 20 mg PO HS Tamsulosin HCl [Flomax] 0.4 mg PO HS Fluticasone/Umeclidin/Vilanter [Trelegy Ellipta 200-62.5-25] 1 puff INHALATION RT-DAILY Ezetimibe [Zetia] 10 mg PO DAILY Venlafaxine HCl [Effexor XR] 75 mg PO HS Albuterol Sulfate [Albuterol Sulfate Hfa] 1 puff PO RT-Q4H PRN PRN Reason: Shortness Of Breath Fluticasone Nasal Franklin [Flonase Nasal Franklin] 1 spray EA NOSTRIL BID PRN PRN Reason: Allergy Symptoms Atorvastatin [Lipitor] 40 mg PO HS Levocetirizine Dihydrochloride [Xyzal] 5 mg PO HS Discontinued Metoprolol Tartrate [Lopressor] 25 mg PO HS #30 tab Metoprolol Tartrate [Lopressor] 50 mg PO DAILY #30 tab Discharge Medication List Rivaroxaban [Xarelto] 20 mg PO HS 05/29/18 [History] Tamsulosin HCl [Flomax] 0.4 mg PO HS 05/29/18 [History] Albuterol Sulfate [Albuterol Sulfate Hfa] 1 puff PO RT-Q4H PRN 10/07/21 [History] Fluticasone Nasal Franklin [Flonase Nasal Franklin] 1 spray EA NOSTRIL BID PRN 06/02/22 [History] Fluticasone/Umeclidin/Vilanter [Trelegy Ellipta 200-62.5-25] 1 puff INHALATION RT-DAILY 09/07/23 [History] Atorvastatin [Lipitor] 40 mg PO HS 10/16/23 [History] Ezetimibe [Zetia] 10 mg PO DAILY 10/16/23 [History] Levocetirizine Dihydrochloride [Xyzal] 5 mg PO HS 10/16/23 [History] Venlafaxine HCl [Effexor XR] 75 mg PO HS 01/12/24 [History] Dapagliflozin Propanediol [Farxiga] 10 mg PO DAILY #30 tab 03/27/24 [Rx] Furosemide [Lasix] 40 mg PO DAILY #30 tab 03/27/24 [Rx] Metoprolol Tartrate [Lopressor] 75 mg PO BID #60 tab 03/27/24 [Rx] Pantoprazole [Protonix] 40 mg PO AC-BRKFST #30 tab 03/27/24 [Rx] predniSONE [Deltasone] 40 mg PO DAILY #20 tab 03/27/24 [Rx] Follow up Appointment(s)/Referral(s): George Davis MD [STAFF PHYSICIAN] - 1 Week Buzz Zimmerman MD [Primary Care Provider] - 1 Week Discharge Disposition: HOME WITH HOME HEALTH SERVICES
[2024-03-27 16:32] LABS: Glucose,Whole Blood 136 mg/dL (70-110)
[2024-03-27] MEDS: SYMBICORT 160-4.5 MCG INHALER INHALATION SCH (18:17)
[2024-03-27 19:47] LABS: Glucose,Whole Blood 177 mg/dL (70-110)
--- NOTE | 2024-03-27 20:37 | P.PN ---
Subjective Progress Note Date: 03/27/24 HISTORY OF PRESENT ILLNESS This is a 83-year-old male with past medical history of hypertension, paroxysmal atrial fibrillation on Xarelto, benign prostatic hypertrophy, hiatal hernia, hereditary factor VIII deficiency, hyperlipidemia, mild intermittent asthma, possible COPD. Patient was seen in the office today for shortness of breath x 5 days as well as a nonproductive cough. Patient denies any chest pain or discomfort. Patient denies fever or chills. Patient does state that he was recently in close proximity to sick individuals at a . Patient was swabbed in the emergency room; negative for influenza, COVID, and RSV. EKG revealed atrial fibrillation with rapid ventricular response. Patient was taken by ambulance to the emergency department where he was given Cardizem 30 mg PO, Solu-Medrol 125 mg IV push, 1 g of Rocephin, and 40 mg IV lasix. Chest x-ray shows bilateral lower lobe infiltrate. Patient will be admitted with consults to pulmonology and cardiology. 03/23: Patient is sitting up in bed at this time. He is less short of breath today. Transthoracic echo shows mildly impaired LV function with an EF of 40 to 45%, mild aortic stenosis, and mild aortic insufficiency. Patient remains in A- fib with a heart rate between 90 and 110. Diltiazem was discontinued. Patient is currently not on amiodarone. Continue metoprolol 50 mg twice daily. Continue Solu-Medrol 60 mg IV every 6 hours. Patient was switched to 20 mg oral Lasix once daily. Continue continue Xarelto 20 mg at bedtime. We will obtain repeat chest x-ray and labs tomorrow. Likely to be discharged tomorrow or Monday. 03/24: Patient is sitting up in the chair he continues to be somewhat short of breath when ambulating, he denies any chest pressure at this point in time, his echocardiogram showed ejection fraction of 45%, with mild aortic valve stenosis and mild aortic regurgitation, he remains in atrial fibrillation his heart rate is around 90-102, patient has been on metoprolol 50 mg orally twice every day, I will increase metoprolol to 75 mg orally twice every day, monitor the patient very closely decrease Solu-Medrol to 40 mg IV push every 8 hours, patient is yet to be seen by pulmonary medicine, will continue to monitor the patient very closely continue patient on DuoNeb 3 mL nebulization every 6 hours and Pulmicort 1 mg nebulization twice every day. 03/25: Patient continues to have dyspnea on exertion, he continues to be somewhat short of breath laying flat, he denies any abdominal pain, he did not have a bowel movement, he continues to urinate well, he is down and Solu-Medrol to 40 mg IV push every 12 hours, will keep the patient for another 24 hours, continue current treatment plan, I will follow-up with the patient in the next 24 hours hopefully will be able to discharge home tomorrow morning. 03/26: Patient is sitting up in bed he is feeling a bit better, he continues to have some minimal expiratory wheezes, he was seen yesterday by pulmonary medicine, his Solu-Medrol was increased back to 40 mg IV push every 8 hours, he was started on Perforomist twice every day, continue the current treatment plan, continue to follow-up with the patient for another 24 hours, hopefully he will be able to be discharged home in the next 24 hours. I will keep the patient on current steroid dose unless otherwise directed by pulmonary team, patient has been seen by cardiology as well, there were signed off, I would think the patient can be discharged home in the next 24 hours if okay with pulmonary medicine. 03/27: Patient was supposed to be discharged home today, however he is feeling more short of breath today, he is started on 2 L nasal cannula, his oxygenation is 90% at this time, patient was instructed to use incentive parameter, continue with nebulized treatment, restart the patient back on Solu-Medrol 40 mg IV push every 12 hours for another 24 hours, then he would be restarted back on prednisone tomorrow morning. Meanwhile the patient will stay in the hospital for another 24 hours, he continues to have yellow phlegm production, he continues to have shortness of breath with activity, likely related to ischemic cardiomyopathy. REVIEW OF SYSTEMS Constitutional: No fever, no chills, no night sweats. No weight change. Reports weakness, Reports fatigue Reports lethargy. No daytime sleepiness. EENT: No headache. No blurred vision or double vision, no loss of vision. No loss of Hearing, no ringing in the ears, no dizziness. No nasal drainage or congestion. No epistaxis. No sore throat. Lungs: Reports shortness of breath, Reports cough, Reports sputum production. Reports wheezing. Cardiovascular: No chest pain, no lower extremity edema. No palpitations. No paroxysmal nocturnal dyspnea. No orthopnea. No lightheadedness or dizziness. No syncopal episodes. Abdominal: No abdominal pain. No nausea, vomiting. No diarrhea. No constipation. No bloody or tarry stools. No loss of appetite. Genitourinary: No dysuria, increased frequency, urgency. No urinary retention. Musculoskeletal: No myalgias. Reports muscle weakness, no gait dysfunction, no frequent falls. No back pain. No neck pain. + Right elbow pain Integumentary: No wounds, no lesions. No rash or pruritus. No unusual bruising. No change in hair or nails. Neurologic: No aphasia. No facial droop. No change in mentation. No head injury. No headache. No paralysis. No paresthesia. Psychiatric: No depression. No anxiety. No mood swings. Endocrine: No abnormal blood sugars. No weight change. No excessive sweating or thirst. No cold intolerance. PHYSICAL EXAMINATION Gen: This is an obese 83-year-old male, resting in bed, appears to be fairly comfortable at rest. HEENT: Head is atraumatic, normocephalic. Pupils equal, round. Sclerae is anicteric. NECK: Supple. No JVD. No lymphadenopathy. No thyromegaly. LUNGS: Diminished breath sounds bilaterally, minimal expiratory wheezes, minimal intercostal retractions. Chest wall tenderness HEART: First heart sound is depressed, second heart sound is normal, 2/6 systolic ejection murmur at the left sternal border, irregularly irregular due to atrial fibrillation ABDOMEN: Soft. Bowel sounds are present. No masses. No tenderness. EXTREMITIES: +1 pedal edema. No calf tenderness. Pain in the left hip. Dorsalis pedis palpable bilaterally. NEUROLOGICAL: Patient is awake, alert and oriented x3. Cranial nerves 2 through 12 are grossly intact, muscle power 4/5 upper and lower extremities bilaterally ASSESSMENT AND PLAN 1. Atrial fibrillation with RVR. Patient heart rate is between 90-103 continue metoprolol to 75 mg orally twice every day, continue Xarelto 20 mg once every day, monitor the patient very closely 2. Acute systolic heart failure due to afib with RVR. Continue metoprolol 75 milligram orally twice every day, continue patient on Farxiga 10 mg once every day, monitor input and output and daily weight, continue patient on Lasix 40 mg orally once every day. 3. Mild COPD exacerbation. Continue Solu-Medrol to 40 mg IV push every 12 hours, continue DuoNeb 3 mm nebulization 4 times every day, patient was started on Symbicort 160/4.5 mcg 2 puffs inhalation twice every day, continue oxygen support, check the patient oxygen level tomorrow morning, patient may need to go home on oxygen. 4. Mild intermittent asthma. Continue patient on DuoNeb 3 mL nebulization 4 times every day, continue Symbicort 160/4.5 mcg 2 puffs inhalation twice every day, check the patient oxygen level tomorrow morning. 5. Paroxysmal atrial fibrillation. Continue Xarelto 20 mg at bedtime, continue metoprolol 75 mg twice daily. 6. Benign prostatic hypertrophy. Continue Flomax 0.4 mg at bedtime, monitor for urinary retention. 7. Hereditary factor VIII deficiency. Continue Xarelto 20 mg once daily. 8. Hyperlipidemia. Continue Zetia 10 mg daily and Atorvastatin 40 mg once a day. 9. Hypertension and hypertensive cardiovascular disease. Continue patient on metoprolol 75 mg orally twice every day. 10. GI prophylaxis. Protonix 40 mg po daily. 11. DVT prophylaxis. Continue Xarelto 20 mg once daily. 14. Home tomorrow morning. Objective - Vital Signs Vital signs: Vital Signs Temp 97.9 F 03/27/24 08:00 Pulse 94 03/27/24 12:00 Resp 16 03/27/24 12:00 BP 119/57 03/27/24 12:00 Pulse Ox 90 L 03/27/24 12:00 FiO2 Intake & Output 03/26/24 03/27/24 03/27/24 18:59 06:59 18:59 Intake Total 354 236 Output Total 200 Balance 354 -200 236 Weight 107.9 kg Intake: Oral 354 236 Output: Urine 200 Other: Voiding Method Toilet Toilet Urinal Urinal # Voids 1 - Labs CBC & Chem 7: 03/26/24 13:22 03/26/24 13:22 Labs: Abnormal Lab Results - Last 24 Hours (Table) 03/26/24 03/26/24 03/27/24 Range/Units 16:28 20:04 06:18 POC Glucose (mg/dL) 152 H 122 H 128 H (70-110) mg/dL 03/27/24 Range/Units 11:43 POC Glucose (mg/dL) 164 H (70-110) mg/dL
[2024-03-27] MEDS: methylPREDNISolone SOD SUCCI 40 MG/ML 1 ML VIAL IV SCH (21:21)
[2024-03-28 06:18] LABS: Glucose,Whole Blood 119 mg/dL (70-110)
[2024-03-28] MEDS ORDERED: predniSONE 20 MG TAB PO SCH (09:00)
[2024-03-28 09:07] VITALS: RESP 16; TEMP 97.4
[2024-03-28 10:44] LABS: Basophils # (A) 0.1 k/uL (0-0.2); Basophils % (A) 0 %; Eosinophils % (A) 0 %; HCT 49.1 % (39.0-53.0); HGB 15.4 gm/dL (13.0-17.5); Lymphocytes # (A) 0.6 k/uL (1.0-4.8); Lymphocytes % (A) 4 %; MCH 29.3 pg (25.0-35.0); MCHC 31.4 g/dL (31.0-37.0); MCV 93.3 fL (80.0-100.0); Mean Platelet Volume 8.5; Monocytes # (A) 0.5 k/uL (0-1.0); Monocytes % (A) 3 %; Neutrophils # (A) 14.4 k/uL (1.3-7.7); Neutrophils % (A) 92 %; Platelet Count 270 k/uL (150-450); RBC 5.26 m/uL (4.30-5.90); RDW 15.7 % (11.5-15.5); WBC 15.7 k/uL (3.8-10.6)
[2024-03-28 11:20] LABS: Glucose,Whole Blood 101 mg/dL (70-110)
[2024-03-28 11:30] LABS: ALT 30 U/L (4-49); AST 28 U/L (17-59); African American GFR (CKD) 81 (>60 ml/min/1.73 sqM); Albumin 3.4 g/dL (3.5-5.0); Alkaline Phosphatase 94 U/L (38-126); Anion Gap 7 mmol/L; Blood Urea Nitrogen 42 mg/dL (9-20); Calcium 8.2 mg/dL (8.4-10.2); Carbon Dioxide 25 mmol/L (22-30); Chloride 104 mmol/L (98-107); Glucose 118 mg/dL (74-99); Non-African American GFR(CKD) 70 (>60 ml/min/1.73 sqM); Potassium 4.1 mmol/L (3.5-5.1); Sodium 136 mmol/L (137-145); Total Bilirubin 0.7 mg/dL (0.2-1.3); Total Protein 5.9 g/dL (6.3-8.2)
[2024-03-28 12:11] VITALS: BP 135/90
[2024-03-28 12:55] VITALS: PULSE 92
--- NOTE | 2024-03-28 14:14 | P.PN ---
Subjective Progress Note Date: 03/28/24 Principal diagnosis: Acute exacerbation of chronic systolic congestive heart failure and underlying COPD with acute exacerbation 83-year-old male patient came into the emergency department today with symptoms of shortness of breath progressively getting worse. He also had some nonproductive cough. Denies having any chest pain. No swelling lower extremities. He was found to be in A-fib RVR at the time of presentation to the emergency department. Patient is known to have coronary artery disease and chronic atrial fibrillation. The patient is also known to have hypertension hyperlipidemia peripheral vascular disease and history of bronchial asthma. His chest x-ray showed some limited left lower lobe atelectatic change. EKG was consistent with A-fib RVR. WBC count of 5.6 with a hemoglobin of 14 and a platelet count of 163. Creatinine was at 1.03 with a BUN of 19. Troponin was negative x 2 and proBNP level was 1230. The patient is known to have a preserved LV function based on a previous echocardiogram from July 2023 with moderate MR, mild AR and mild TR. Last cardiac catheterization was in August 2023 and the patient was found to have 20% left main, 20% LAD, 20% circumflex and 20% RCA lesion. The patient was accordingly hospitalized. Currently is on anticoagulation with Xarelto. He is also on oral Cardizem at 30 mg 3 times daily and is also on metoprolol 25 mg at bedtime and 50 mg in the morning. His current heart rate is around 117. BP is stable and the patient is currently on liters of oxygen by nasal cannula with a pulse ox of 94%. The rest spirometry that was done back in 2016 showed an FEV1 of 77% of predicted. The patient has remote history of DVT, and degenerative arthritis in addition. His last hospitalization was in December 2022 and at that time the patient had rhabdomyolysis related to a fall and a urine tract infection with Enterococcus faecalis treated with penicillins. He also developed encephalopathy at that time which essentially recovered. He is known to have mild COPD maintained on Trelegy Ellipta on outpatient basis. He is currently off amiodarone. 03/23/2024, the patient is being seen for a follow-up. Patient is doing well. Less short of breath compared to yesterday. Less bronchospastic and wheezy. The patient is currently resting comfortably on room air oxygen. Denies having any chest pain. The patient is currently on metoprolol and Cardizem drip has been discontinued. The patient was also taken off the IV Lasix and the patient will be started on oral Lasix by cardiology. Has echocardiogram was repeated yesterday and the patient was found to have a mildly impaired LV function with an ejection fraction of 40 to 45%. Concentric left ventricular hypertrophy was present. The patient remains on bronchodilators. Patient remains on steroids. The patient is also on anticoagulation with Xarelto. He remains in atrial fibrillation and the rate is under better control for now. 03/24/2024, the patient is being seen for a follow-up. The patient is calm and comfortable and patient is currently on room air oxygen with a pulse ox of 91%. Continues to have some noted bronchospasm and wheezing. Overall condition is improved considerably. Remains on bronchodilators. Remains on IV Solu-Medrol 40 mg every 8 hours. Remains on Lasix 40 mg p.o. daily. Antibiotic coverage essentially empiric and the cultures have been negative. BUN is 28 with a creatinine 1.1 and sodium of 139 with a potassium level of 4.2. No complaints. Sitting up in the chair and he reports improvement. The patient is seen today March 25, 2024 in follow-up on the selective care unit. He is currently sitting up at the bedside. Awake and alert in no acute distress. He is maintaining good O2 saturations in the 90s on room air. Does remain in atrial fibrillation with RVR. He does have suspected nonischemic cardiomyopathy with ejection fraction of 40 to 45%. Has some cough and congestion. Blood cultures revealed no growth. Count 17.5. Hemoglobin 14.6. Platelets 208. Sodium 139. Potassium 4.4. Bicarb 22. BUN 37. Creatinine 1.08. Glucose 133. He remains on DuoNeb ventilations, Pulmicort and performing scintillations, IV Solu-Medrol. He is anticoagulated with Xarelto. He is on antibiotics in the form of ceftriaxone. The patient is seen today March 26, 2024 in follow-up on the selective care unit. He is currently sitting up in a chair. Awake and alert in no acute distress. He is maintaining good O2 saturations in the 90s on room air. He is feeling better today compared to yesterday. White count 14.2. Hemoglobin 14.7. Platelets 221. Sodium 138. Potassium 4.4. Bicarb 24. BUN 39. Creatinine 1.00. Glucose 131. He remains on antibiotics in the form of ceftriaxone. Continued on bronchodilators and steroids. Anticoagulated with Xarelto. Remains on oral diuretics. Patient was reevaluated today on March 2706/2024, patient is feeling better, patient is asking to be discharged home, and I felt that the patient needed to be cleared by cardiology pulmonary schaefer continues to have some minimal cough and wheezing patient is on proper bronchodilators and steroids, he is also on diuretics. Cardiology is following for his congestive heart failure. Again clinically the patient is feeling better and he would like to be discharged home. Labs today where not done except for a blood sugar of 164 Patient with 3 reevaluated today on 03/28/2024, continues to do well, patient denies any cough, no wheezing, no shortness of breath, his pulmonary symptoms have significantly improved since admission, again will clear the patient for discharge if cleared by cardiology on the case. Objective - Vital Signs Vital signs: Vital Signs Temp 97.4 F L 03/28/24 08:00 Pulse 92 03/28/24 12:38 Resp 16 03/28/24 11:53 BP 135/90 03/28/24 11:53 Pulse Ox 94 L 03/28/24 11:53 FiO2 Intake & Output 03/27/24 03/28/24 03/28/24 18:59 06:59 18:59 Intake Total 354 20 366 Balance 354 20 366 Weight 108.1 kg Intake: IV 20 10 Invasive Line 2 20 10 Oral 354 356 Other: Voiding Method Toilet Toilet Urinal Urinal # Voids 2 - Exam GENERAL EXAM: Revealed 83-year-old white male in no distress HEAD: Normocephalic. EYES: Normal reaction of pupils, equal size. NOSE: Clear with pink turbinates. THROAT: No erythema or exudates. NECK: No masses, no JVD. CHEST: No chest wall deformity. LUNGS: Clear bilaterally no rhonchi no wheezes CVS: S1 and S2 normal with no audible murmur, irregular rhythm. ABDOMEN: No hepatosplenomegaly, normal bowel sounds, no guarding or rigidity. SKIN: No rashes CENTRAL NERVOUS SYSTEM: Alert and oriented x 3 no gross focal deficit EXTREMITIES: There is no peripheral edema. No clubbing, no cyanosis. Peripheral pulses are intact. - Labs CBC & Chem 7: 03/28/24 08:22 03/28/24 08:22 Labs: Abnormal Lab Results - Last 24 Hours (Table) 03/27/24 03/27/24 03/28/24 Range/Units 16:30 19:46 06:16 WBC (3.8-10.6) k/uL RDW (11.5-15.5) % Neutrophils # (1.3-7.7) k/uL Lymphocytes # (1.0-4.8) k/uL Sodium (137-145) mmol/L BUN (9-20) mg/dL Glucose (74-99) mg/dL POC Glucose (mg/dL) 136 H 177 H 119 H (70-110) mg/dL Calcium (8.4-10.2) mg/dL Total Protein (6.3-8.2) g/dL Albumin (3.5-5.0) g/dL 03/28/24 03/28/24 Range/Units 08:22 08:22 WBC 15.7 H (3.8-10.6) k/uL RDW 15.7 H (11.5-15.5) % Neutrophils # 14.4 H (1.3-7.7) k/uL Lymphocytes # 0.6 L (1.0-4.8) k/uL Sodium 136 L (137-145) mmol/L BUN 42 H (9-20) mg/dL Glucose 118 H (74-99) mg/dL POC Glucose (mg/dL) (70-110) mg/dL Calcium 8.2 L (8.4-10.2) mg/dL Total Protein 5.9 L (6.3-8.2) g/dL Albumin 3.4 L (3.5-5.0) g/dL Microbiology - Last 24 Hours (Table) 03/22/24 10:40 Blood Culture - Final Blood 03/22/24 10:25 Blood Culture - Final Blood Assessment and Plan Assessment: Impression: Acute exacerbation of chronic systolic congestive heart failure impaired left ventricular systolic function with ejection fraction 40 to 45%. Acute on chronic shortness of breath secondary to A-fib RVR, he does have underlying COPD. Acute hypoxic respiratory failure , improved and the patient is currently on room air oxygen Acute exacerbation of chronic COPD. The patient is known to have COPD with an FEV1 of 77% of predicted at baseline maintain on Trelegy Ellipta on outpatient basis with a mild component of COPD exacerbation. Mild lactic acidosis, improved Mild nonocclusive coronary artery disease Hypertension Hyperlipidemia Peripheral vascular disease Remote history of a DVT, involving the right lower extremity BPH Impaired hearing Osteoarthritis History of hiatal hernia Recommendation: Continue bronchodilators, continue diuretics, Transition to oral prednisone, titrate on outpatient basis over the next 1 week Cleared again for discharge, Follow-up on outpatient basis Time with Patient: Less than 30
== END 2024-03-28 14:27 | disposition home health service (06) | DRG 291 ==
LOC: EC 09:57 → 3SCARD 12:33
PROVIDERS: ADMIT Internal Medicine; ATTEND Internal Medicine
DX: I11.0 Hypertensive heart disease with heart failure (principal); D66 Hereditary factor VIII deficiency; I50.43 Acute on chronic combined systolic (congestive) and diastolic (congestive) heart failure; J96.01 Acute respiratory failure with hypoxia; G93.40 Encephalopathy, unspecified; I48.0 Paroxysmal atrial fibrillation; N40.0 Benign prostatic hyperplasia without lower urinary tract symptoms; I25.5 Ischemic cardiomyopathy; I25.10 Atherosclerotic heart disease of native coronary artery without angina pectoris; I35.0 Nonrheumatic aortic (valve) stenosis; H91.93 Unspecified hearing loss, bilateral; J45.20 Mild intermittent asthma, uncomplicated; J44.9 Chronic obstructive pulmonary disease, unspecified; F32.A Depression, unspecified; E78.5 Hyperlipidemia, unspecified; Z96.642 Presence of left artificial hip joint; Z96.653 Presence of artificial knee joint, bilateral; Z79.01 Long term (current) use of anticoagulants; Z79.51 Long term (current) use of inhaled steroids; Z79.899 Other long term (current) drug therapy; Z86.718 Personal history of other venous thrombosis and embolism; Z97.4 Presence of external hearing-aid
CPT/HCPCS: 36415; 71045; 71046; 80048; 80053; 80061; 83605; 83735; 83880; 84484; 85025; 85610; 85730; 87040; 87636; 93005; 93306; 94640; 94760; 96374; 96375; 96376; 99291

== ENCOUNTER → 2024-06-27 | Outpatient (CLI) | payer MEDICARE | END | disposition home or self-care (01) | LOC: LABPRL 01:57 | PROVIDERS: ATTEND Internal Medicine | DX: I10 Essential (primary) hypertension | CPT/HCPCS: 80053; 80061; 83036; 83735; 84443; 84550; 85025 ==

== ENCOUNTER 2024-08-29 18:07 | Emergency (ER) | payer MEDICARE ==
[2024-08-29 18:34] VITALS: RESP 18; TEMP 97.8
--- NOTE | 2024-08-29 19:11 | ED ---
Head Injury HPI - General Chief complaint: Head Injury Stated complaint: fall/on thinners, head injury Time Seen by Provider: 08/29/24 19:09 Source: patient, family, RN notes reviewed Mode of arrival: wheelchair Limitations: no limitations - History of Present Illness Initial comments: 83-year-old male presenting to the ER with a chief complaint of head injury. Patient states he was sitting in his lawn chair in the sun earlier today. He states he was leaning back and believes he fell backward hitting his head. He does take Xarelto. Patient is unsure of how long he was unconscious or on the ground. Family state he was only home alone for approximately 3 hours. Patient does report today he noticed his urine was brown in color prior to the fall. He states he may be dehydrated. He denies any other injuries or complaints. Patient does have a laceration to the back of his head. Tetanus is up-to-date. No other injuries or complaints. - Related Data Home Medications Medication Instructions Recorded Confirmed Rivaroxaban [Xarelto] 20 mg PO HS 05/29/18 03/22/24 Tamsulosin HCl [Flomax] 0.4 mg PO HS 05/29/18 03/22/24 Albuterol Sulfate [Albuterol 1 puff PO RT-Q4H PRN 10/07/21 03/22/24 Sulfate Hfa] Fluticasone Nasal [place] [Flonase 1 spray EA NOSTRIL BID PRN 06/02/22 03/22/24 Nasal [place]] Fluticasone/Umeclidin/Vilanter 1 puff INHALATION RT-DAILY 09/07/23 03/22/24 [[place] Ellipta 200-62.5-25] Atorvastatin [Lipitor] 40 mg PO HS 10/16/23 03/22/24 Ezetimibe [Zetia] 10 mg PO DAILY 10/16/23 03/22/24 Levocetirizine Dihydrochloride 5 mg PO HS 10/16/23 03/22/24 [Xyzal] Venlafaxine HCl [Effexor XR] 75 mg PO HS 01/12/24 03/22/24 Previous Rx's Medication Instructions Recorded Dapagliflozin Propanediol [Farxiga] 10 mg PO DAILY #30 tab 03/27/24 Furosemide [Lasix] 40 mg PO DAILY #30 tab 03/27/24 Metoprolol Tartrate [Lopressor] 75 mg PO BID #60 tab 03/27/24 Pantoprazole [Protonix] 40 mg PO AC-BRKFST #30 tab 03/27/24 predniSONE [Deltasone] 40 mg PO DAILY #20 tab 03/27/24 Allergies/Adverse reactions: Allergies Allergy/AdvReac Type Severity Reaction Status Date / Time rosuvastatin [From Crestor] AdvReac muscle Verified 03/22/24 10:35 soreness/cramps Review of Systems ROS Statement: Those systems with pertinent positive or pertinent negative responses have been documented in the HPI. ROS Other: All systems not noted in ROS Statement are negative. Past Medical History Past Medical History: Atrial Fibrillation, Asthma, Deep Vein Thrombosis (DVT), Hearing Disorder / Deafness, Hyperlipidemia, Hypertension, Osteoarthritis (OA), Pneumonia, Renal Disease Additional Past Medical History / Comment(s): Hx pneumonia yrs ago, RSV/ hospitalized x 2 weeks in ICU, dvt R calf, hiatal hernia, hx kidney stones, [place] use of bilateral hearing aids. History of Any Multi-Drug Resistant Organisms: None Reported Past Surgical History: Joint Replacement Additional Past Surgical History / Comment(s): Bilateral knee replacements., total L hip arthroplasty, LIS and cardioversions Past Anesthesia/Blood Transfusion Reactions: No Reported Reaction Past Psychological History: Depression Smoking Status: Never smoker Past Alcohol Use History: Occasional Past Drug Use History: None Reported - Past Family History Mother Family Medical History: No Reported History General Exam Limitations: no limitations General appearance: alert, in no apparent distress Head exam: Present: normocephalic, other (skin tear to occipital scalp. No active bleeding.) Eye exam: Present: normal appearance, PERRL, EOMI. Absent: scleral icterus, conjunctival injection, periorbital swelling Pupils: Present: normal accommodation ENT exam: Present: normal exam, normal oropharynx, mucous membranes moist Neck exam: Present: normal inspection. Absent: tenderness, meningismus, lymphadenopathy Respiratory exam: Present: wheezes (Bilaterally) Cardiovascular Exam: Present: regular rate, irregular rhythm, normal heart sounds GI/Abdominal exam: Present: soft, normal bowel sounds. Absent: distended, tenderness, guarding, rebound, rigid Extremities exam: Present: normal inspection, full ROM, normal capillary refill. Absent: tenderness, pedal edema, joint swelling, calf tenderness Back exam: Present: normal inspection Neurological exam: Present: alert, oriented X3, CN II-XII intact Skin exam: Present: warm, dry, intact, normal color. Absent: rash Course Vital Signs 08/29/24 08/29/24 08/29/24 18:29 19:00 19:31 Temperature 97.8 F Pulse Rate 62 76 Respiratory 18 16 16 Rate Blood Pressure 141/82 114/76 120/95 O2 Sat by Pulse 96 96 Oximetry 08/29/24 08/29/24 08/29/24 20:30 21:00 22:38 Temperature Pulse Rate 80 84 86 Respiratory 16 18 18 Rate Blood Pressure 105/73 132/78 111/75 O2 Sat by Pulse 94 L 94 L 98 Oximetry Medical Decision Making - Medical Decision Making Was pt. sent in by a medical professional or institution (, PA, D[employer], urgent care, hospital, or long term...) When possible be specific @ -No Did you speak to anyone other than the patient for history (EMS, parent, family, police, friend...)? What history was obtained from this source @ -No Did you review nursing and triage notes (agree or disagree)? Why? @ -I reviewed and agree with nursing and triage notes Were old charts reviewed (outside hosp., previous admission, EMS record, old EKG, old radiological studies, urgent care reports/EKG's, long term records)? Report findings @ -No old charts were reviewed Differential Diagnosis (chest pain, altered mental status, abdominal pain women, abdominal pain men, vaginal bleeding, weakness, fever, dyspnea, syncope, headache, dizziness, GI bleed, back pain, seizure, CVA, palpatations, mental health, musculoskeletal)? @ -Differential Syncope: Valvular disease, hypertrophic cardiomyopathy, pulmonary embolism, tamponade, tachycardia, bradycardia, [place], hypovolemia, hemorrhage, dissection, anemia, intracranial hemorrhage, seizure, hypoglycemia, carbon monoxide poisoning, this is not meant to be an all-inclusive list. Family, at bedside, aiding in HPI and past medical history. EKG interpreted by me (3pts min.). @ -As above X-rays interpreted by me (1pt min.). @ -Right ribs AP chest x-ray negative for acute fractures or dislocations. There is cardiomegaly and mild pulmonary vascular congestion noted. Lumbar spine x-rays showing vertebral fractures of undetermined age. CT interpreted by me (1pt min.). @ -CT brain negative for acute intracranial process. U/S interpreted by me (1pt. min.). @ -None done What testing was considered but not performed or refused? (CT, X-rays, U/S, labs)? Why? @ -None What meds were considered but not given or refused? Why? @ -None Did you discuss the management of the patient with other professionals (professionals i.e. , PA, D[employer], lab, RT, psych nurse, social work therapist, turbine mechanic, teacher, protocol officer, watch case polisher)? Give summary @ -No Was smoking cessation discussed for >3mins.? @ -No Was critical care preformed (if so, how long)? @ -No Were there social determinants of health that impacted care today? How? (Homelessness, low income, unemployed, alcoholism, drug addiction, transportation, low edu. Level, literacy, decrease access to med. care, shelter, rehab)? @ -No Was there de-escalation of care discussed even if they declined (Discuss DNR or withdrawal of care, Hospice)? DNR status @ -No What co-morbidities impacted this encounter? (DM, HTN, Smoking, COPD, CAD, Cancer, CVA, ARF, Chemo, Hep., AIDS, mental health diagnosis, sleep apnea, morbid obesity)? @ -Atrial fibrillation on xarelto Was patient admitted / discharged? Hospital course, mention meds given and route, prescriptions, significant lab abnormalities, going to OR and other pertinent info. @ -Discharge. 83-year-old male presented to the ER with a chief complaint of a fall with head injury. History and physical exam completed. Vitals within normal limits. Patient in no signs of acute distress nontoxic-appearing. AxO x 3. No acute neurological findings on exam. Bilateral upper and lower extremities neurovascular intact. Patient does have a skin tear to posterior scalp. Minimal active bleeding. Due to patient being uncertain if he passed out or how long he was down laboratory studies will be obtained. Laboratories unremarkable. Troponin undetectable. Creatinine kinase 73. EKG showing atrial fibrillation no acute evidence of infarct or ischemia. CT brain negative. All other x-rays negative for acute findings. Lumbar x-ray showing vertebral fractures of undetermined age. Family at bedside states this is chronic and patient received an MRI today for further evaluation. Patient received 1 L IV fluids in the ER. Upon reevaluation, patient resting comfortably in exam room eager for discharge. No signs of acute distress. Results discussed with patient, all questions answered. Wound cleaned and a compressive dressing was placed. Tetanus is up-to-date. Patient stable for discharge. Strict return parameters discussed. Patient discharged stable condition with follow-up to PCP in the next 1 to 2 days. Patient verbally expressed understanding and agreement with care plan. Case discussed with ED attending, Dr. Berumen. Undiagnosed new problem with uncertain prognosis? @ -No Drug Therapy requiring intensive monitoring for toxicity (Heparin, Nitro, Insulin, Cardizem)? @ -No Were any procedures done? @ -No Diagnosis/symptom? @ -Fall/skin tear Acute, or Chronic, or Acute on Chronic? @ -Acute Uncomplicated (without systemic symptoms) or Complicated (systemic symptoms)? @ -Uncomplicated Side effects of treatment? @ -No Exacerbation, Progression, or Severe Exacerbation? @ -No Poses a threat to life or bodily function? How? (Chest pain, [place], [place], pneumonia, PE, COPD, DKA, ARF, appy, cholecystitis, CVA, Diverticulitis, Homicidal, Suicidal, threat to staff... and all critical care pts) @ -No - Lab Data Result diagrams: 08/29/24 19:09 08/29/24 19:09 Lab Results 08/29/24 08/29/24 08/29/24 Range/Units 19:09 19:09 19:09 WBC 8.0 (3.8-10.6) k/uL RBC 5.15 (4.30-5.90) m/uL Hgb 15.4 (13.0-17.5) gm/dL Hct 48.9 (39.0-53.0) % MCV 95.0 (80.0-100.0) fL MCH 29.8 (25.0-35.0) pg MCHC 31.4 (31.0-37.0) g/dL RDW 15.2 (11.5-15.5) % Plt Count 195 (150-450) k/uL MPV 7.2 Neutrophils % 77 % Lymphocytes % 13 % Monocytes % 6 % Eosinophils % 1 % Basophils % 0 % Neutrophils # 6.1 (1.3-7.7) k/uL Lymphocytes # 1.0 (1.0-4.8) k/uL Monocytes # 0.5 (0-1.0) k/uL Eosinophils # 0.1 (0-0.7) k/uL Basophils # 0.0 (0-0.2) k/uL Hypochromasia Slight PT 11.8 (10.0-12.5) sec INR 1.1 (<1.2) APTT 26.0 (22.0-30.0) sec Sodium 139 (137-145) mmol/L Potassium 4.6 (3.5-5.1) mmol/L Chloride 110 H (98-107) mmol/L Carbon Dioxide 23 (22-30) mmol/L Anion Gap 6 mmol/L BUN 19 (9-20) mg/dL Creatinine 1.16 (0.66-1.25) mg/dL Est GFR (CKD-EPI)AfAm 68 (>60 ml/min/1.73 sqM) Est GFR (CKD-EPI)NonAf 59 (>60 ml/min/1.73 sqM) Glucose 99 (74-99) mg/dL Calcium 9.4 (8.4-10.2) mg/dL Total Bilirubin 0.9 (0.2-1.3) mg/dL AST 30 (17-59) U/L ALT 22 (4-49) U/L Alkaline Phosphatase 118 (38-126) U/L Creatine Kinase 73 (55-170) U/L Troponin I (0.000-0.034) ng/mL Total Protein 6.3 (6.3-8.2) g/dL Albumin 4.1 (3.5-5.0) g/dL 08/29/24 Range/Units 19:09 WBC (3.8-10.6) k/uL RBC (4.30-5.90) m/uL Hgb (13.0-17.5) gm/dL Hct (39.0-53.0) % MCV (80.0-100.0) fL MCH (25.0-35.0) pg MCHC (31.0-37.0) g/dL RDW (11.5-15.5) % Plt Count (150-450) k/uL MPV Neutrophils % % Lymphocytes % % Monocytes % % Eosinophils % % Basophils % % Neutrophils # (1.3-7.7) k/uL Lymphocytes # (1.0-4.8) k/uL Monocytes # (0-1.0) k/uL Eosinophils # (0-0.7) k/uL Basophils # (0-0.2) k/uL Hypochromasia PT (10.0-12.5) sec INR (<1.2) APTT (22.0-30.0) sec Sodium (137-145) mmol/L Potassium (3.5-5.1) mmol/L Chloride (98-107) mmol/L Carbon Dioxide (22-30) mmol/L Anion Gap mmol/L BUN (9-20) mg/dL Creatinine (0.66-1.25) mg/dL Est GFR (CKD-EPI)AfAm (>60 ml/min/1.73 sqM) Est GFR (CKD-EPI)NonAf (>60 ml/min/1.73 sqM) Glucose (74-99) mg/dL Calcium (8.4-10.2) mg/dL Total Bilirubin (0.2-1.3) mg/dL AST (17-59) U/L ALT (4-49) U/L Alkaline Phosphatase (38-126) U/L Creatine Kinase (55-170) U/L Troponin I 0.012 (0.000-0.034) ng/mL Total Protein (6.3-8.2) g/dL Albumin (3.5-5.0) g/dL - EKG Data -: EKG Interpreted by Me EKG Comments: EKG taken at 18: 42 showing atrial fibrillation with a right bundle branch block. No acute ST segment or T wave abnormalities. Ventricular rate 81, QRS duration 133, QT/QTc 420/458. - Radiology Data Radiology results: report reviewed, image reviewed Disposition Clinical Impression: Scalp avulsion, Fall Disposition: HOME SELF-CARE Condition: Stable Instructions (If sedation given, give patient instructions): Fall Prevention for Older Adults (ED) Additional Instructions: You may take [id number] Tylenol for pain control. Follow-up with PCP in the next 1 to 2 days. Return to the ER for any new or worsening concerns. Is patient prescribed a controlled substance at d/c from ED?: No Referrals: Buzz Zimmerman MD [Primary Care Provider] - 1-2 days Time of Disposition: 22:26
[2024-08-29 19:20] LABS: Basophils % (A) 0 %; Eosinophils # (A) 0.1 k/uL (0-0.7); Eosinophils % (A) 1 %; HCT 48.9 % (39.0-53.0); HGB 15.4 gm/dL (13.0-17.5); Hypochromasia Slight; Lymphocytes % (A) 13 %; MCH 29.8 pg (25.0-35.0); MCHC 31.4 g/dL (31.0-37.0); Mean Platelet Volume 7.2; Monocytes # (A) 0.5 k/uL (0-1.0); Monocytes % (A) 6 %; Neutrophils # (A) 6.1 k/uL (1.3-7.7); Neutrophils % (A) 77 %; Platelet Count 195 k/uL (150-450); RBC 5.15 m/uL (4.30-5.90); RDW 15.2 % (11.5-15.5)
[2024-08-29 19:31] LABS: ALT 22 U/L (4-49); AST 30 U/L (17-59); African American GFR (CKD) 68 (>60 ml/min/1.73 sqM); Albumin 4.1 g/dL (3.5-5.0); Alkaline Phosphatase 118 U/L (38-126); Anion Gap 6 mmol/L; Blood Urea Nitrogen 19 mg/dL (9-20); Calcium 9.4 mg/dL (8.4-10.2); Carbon Dioxide 23 mmol/L (22-30); Chloride 110 mmol/L (98-107); Creatine Kinase 73 U/L (55-170); Glucose 99 mg/dL (74-99); Non-African American GFR(CKD) 59 (>60 ml/min/1.73 sqM); Potassium 4.6 mmol/L (3.5-5.1); Sodium 139 mmol/L (137-145); Total Bilirubin 0.9 mg/dL (0.2-1.3); Total Protein 6.3 g/dL (6.3-8.2)
[2024-08-29 19:32] LABS: INR 1.1 (<1.2); Prothrombin Time 11.8 sec (10.0-12.5)
[2024-08-29] MEDS: SODIUM CHLORIDE 0.9% 1,000 ML IV STA (19:51)
--- NOTE | 2024-08-29 20:46 | XR ---
EXAMINATION TYPE: XR chest 2V, XR ribs right DATE OF EXAM: 08/29/2024 7:32 PM CLINICAL INDICATION:Male, 83 years old with history of syncope; [facility] COMPARISON: 03/2024 TECHNIQUE: XR chest 2V. Frontal and lateral views of the chest.. 4 views right ribs. FINDINGS: EKG leads overlie the [id number]. Heart is moderately enlarged. Mediastinum appears prominent likely related to body habitus/lipomatosi s. If of concern, CT may be obtained. Mild central vascular congestion. No focal consolidation, sizable pleural effusion, or visible pneumo thorax. Osseous structures appear grossly intact as seen. Moderate degenerative changes of the shoulders and spine. No acute displaced or deforming rib fractures identified. IMPRESSION: 1. Cardiomegaly with mild pulmonary vascular congestion. 2. No pneumothorax or definite displaced/deforming rib fracture. [facility], , 08/29/2024 8:44 PM
--- NOTE | 2024-08-29 20:49 | XR ---
EXAMINATION TYPE: XR chest 2V, XR ribs right DATE OF EXAM: 08/29/2024 7:32 PM CLINICAL INDICATION:Male, 83 years old with history of syncope; [facility] COMPARISON: 03/2024 TECHNIQUE: XR chest 2V. Frontal and lateral views of the chest.. 4 views right ribs. FINDINGS: EKG leads overlie the [id number]. Heart is moderately enlarged. Mediastinum appears prominent likely related to body habitus/lipomatosi s. If of concern, CT may be obtained. Mild central vascular congestion. No focal consolidation, sizable pleural effusion, or visible pneumo thorax. Osseous structures appear grossly intact as seen. Moderate degenerative changes of the shoulders and spine. No acute displaced or deforming rib fractures identified. IMPRESSION: 1. Cardiomegaly with mild pulmonary vascular congestion. 2. No pneumothorax or definite displaced/deforming rib fracture. [facility], , 08/29/2024 8:47 PM
--- NOTE | 2024-08-29 21:00 | XR ---
EXAMINATION TYPE: XR lumbar spine 2 or 3V DATE OF EXAM: 08/29/2024 7:33 PM CLINICAL INDICATION:Male, 83 years old with history of pain s/p fall; [facility] COMPARISON: None TECHNIQUE: XR lumbar spine 2 or 3V - Frontal, lateral and coned down L5-S1 lateral views of the lumba r spine. FINDINGS: Examination limited by bowel gas and size osteopenia. There are moderate degenerative changes. Mild v ertebral body height loss suggested at multiple levels including T12, L1, L2, age-indeterminate. Ther e is grade 1 degenerative anterolisthesis L4 over 5. Mild apex right curvature. Mild degenerative neal nges of the SI joints. Partially imaged left total hip arthroplasty. Moderate arterial vascular calcifications of the aorta. IMPRESSION: 1. Moderate multilevel lumbar spondylosis. 2. Nonspecific, age indeterminate height loss of multiple vertebral bodies suggested. If clinically indicated, CT or MRI may be considered for further evaluation. [facility], , 08/29/2024 8:57 PM
--- NOTE | 2024-08-29 21:24 | CT ---
EXAMINATION TYPE: CT brain wo con CT DLP: 1184.4 mGycm, Automated exposure control for dose reduction was used. DATE OF EXAM: 08/29/2024 8:00 PM COMPARISON: CT 01/12/2024 CLINICAL INDICATION:Male, 83 years old with history of head injury on thinners, Fall TECHNIQUE: Brain: Axial CT images of the brain were obtained with coronal and sagittal reformats created and rev iewed. Contrast used: None. Oral contrast used: None. FINDINGS: Extra-axial spaces: No abnormal extra-axial fluid collections. Basilar cisterns are patent. Ventricular system: Ventricles appear dilated in proportion to the degree of cerebral atrophy. Cerebral parenchyma: No increased attenuation to suggest acute intraparenchymal hemorrhage. The gra y-white matter interface appears maintained. Moderate generalized brain atrophy. Scattered and some confluent hypoattenuating areas are seen within the cerebral white matter, nonspecific but most ofte n seen with chronic microvascular ischemic changes; moderate/severe in degree. Cerebellum: No acute abnormality. Mass effect: No evidence of mass effect or midline shift. Intracranial vasculature: Unremarkable Soft tissues: No acute or concerning abnormality. Visualized orbits: Orbital contents appear grossly intact. Calvarium/osseous structures: No evidence of calvarial fracture. Paranasal sinuses and mastoid air cells: No significant fluid accumulation is seen. There is somewhat lobular appearing soft tissue density seen in the right nasal passage, considerations include nasal polyposis; correlate clinically. MRI is more sensitive for detecting acute processes such as infarct, and may be considered if clinica lly warranted. IMPRESSION: 1. No CT evidence of an acute intracranial abnormality. 2. Atrophy and chronic microvascular ischemic white matter changes. [facility], , 08/29/2024 9:22 PM
[2024-08-29 22:47] VITALS: BP 111/75; PULSE 86
== END 2024-08-29 22:53 | disposition home or self-care (01) ==
LOC: EC 18:07
CPT/HCPCS: 36415; 70450; 71046; 72100; 80053; 82550; 84484; 85025; 85610; 85730; 93005; 96360; 99284

== ENCOUNTER 2024-09-13 03:47 | Inpatient (IN) | payer MEDICARE ==
--- NOTE | 2024-09-13 05:14 | ED ---
General Adult HPI <Prince Johnson - Last Filed: 09/13/24 10:09> - General Source: patient Mode of arrival: ambulatory <Meena - Last Filed: 09/20/24 03:12> - General Chief complaint: Back Pain/Injury Stated complaint: Back pain Time Seen by Provider: 09/13/24 04:04 - History of Present Illness Initial comments: Patient is a pleasant 83-year-old gentleman presenting today for right sided back pain. Patient states that he typically deals with lower chronic lumbar back pain however this evening he began experiencing pain on the right side of his back that was different from his usual pain. States it began in the right lower quadrant of his abdomen and radiates to the right flank. His son who accompanies him states patient does have a history of prior kidney stones. Patient states that he took a pain pill at home but is not sure what he took. This did improve the pain somewhat. He denies hematuria or dysuria. Denies any black or bloody stools or diarrhea. Denies fevers or vomiting but does endorse nausea. Denies chest pain or shortness of breath. No lower extremity swelling. Denies any recent trauma, saddle anesthesia or urinary or stool incontinence. (Meena Nicole) - Related Data Home Medications Medication Instructions Recorded Confirmed Rivaroxaban [Xarelto] 20 mg PO HS 05/29/18 09/13/24 Tamsulosin HCl [Flomax] 0.4 mg PO HS 05/29/18 09/13/24 Albuterol Sulfate [Albuterol 1 puff INHALATION RT-Q4H PRN 10/07/21 09/13/24 Sulfate Hfa] Fluticasone Nasal [place] [Flonase 1 spray EA NOSTRIL BID PRN 06/02/22 09/13/24 Nasal [place]] Fluticasone/Umeclidin/Vilanter 1 puff INHALATION RT-DAILY 09/07/23 09/13/24 [Trelegy Ellipta 200-62.5-25] Atorvastatin [Lipitor] 40 mg PO HS 10/16/23 09/13/24 Ezetimibe [Zetia] 10 mg PO DAILY 10/16/23 09/13/24 Levocetirizine Dihydrochloride 5 mg PO HS 10/16/23 09/13/24 [Xyzal] Ammonium Lactate Lotion 1 applic TOPICAL BID 09/13/24 09/13/24 [Lac-Hydrin 12% Lotion] Budesonide/Formoterol Fumarate 1 puff INHALATION RT-BID 09/13/24 09/13/24 [Breyna 160-4.5 Mcg Inhaler] Pantoprazole [Protonix] 40 mg PO DAILY 09/13/24 09/13/24 Venlafaxine HCl [Effexor XR] 37.5 mg PO HS 09/13/24 09/13/24 Previous Rx's Medication Instructions Recorded Dapagliflozin Propanediol [Farxiga] 10 mg PO DAILY #30 tab 03/27/24 Metoprolol Tartrate [Lopressor] 75 mg PO BID #60 tab 03/27/24 Amoxicillin 500 mg PO Q8H #30 capsule 09/16/24 Lactulose [Cephulac] 20 gm PO BID #900 ml 09/19/24 Sennosides [Senokot] 8.6 mg PO BID #60 tab 09/19/24 polyethylene glycoL 3350 [Miralax] 17 gm PO DAILY #30 packet 09/19/24 Allergies Allergy/AdvReac Type Severity Reaction Status Date / Time rosuvastatin [From Crestor] AdvReac muscle Verified 09/13/24 10:41 soreness/cramps Review of Systems ROS Other: All systems not noted in ROS Statement are negative. <Prince Johnson - Last Filed: 09/13/24 10:09> ROS Other: All systems not noted in ROS Statement are negative. <Meena Nicole - Last Filed: 09/20/24 03:12> ROS Statement: Those systems with pertinent positive or pertinent negative responses have been documented in the HPI. Past Medical History Past Medical History: Atrial Fibrillation, Asthma, Deep Vein Thrombosis (DVT), Hearing Disorder / Deafness, Hyperlipidemia, Hypertension, Osteoarthritis (OA), Pneumonia, Renal Disease Additional Past Medical History / Comment(s): Hx pneumonia yrs ago, RSV/ hospitalized x 2 weeks in ICU, dvt R calf, hiatal hernia, hx kidney stones, KOI use of bilateral hearing aids. History of Any Multi-Drug Resistant Organisms: None Reported Past Surgical History: Joint Replacement Additional Past Surgical History / Comment(s): Bilateral knee replacements., total L hip arthroplasty, LIS and cardioversions Past Anesthesia/Blood Transfusion Reactions: No Reported Reaction Past Psychological History: Depression Smoking Status: Never smoker Past Alcohol Use History: Occasional Past Drug Use History: None Reported - Past Family History Mother Family Medical History: No Reported History <Meena Nicole - Last Filed: 09/20/24 03:12> General Exam <Meena Nicole - Last Filed: 09/20/24 03:12> - General Exam Comments Initial Comments: PE: CONSTITUTIONAL: No apparent distress, well appearing SKIN: Warm, dry, no jaundice, hives or petechiae, overlying skin changes in the area of discomfort EYES: Pupils are equally round, extraocular movements intact without nystagmus, clear conjunctiva, non-icteric sclera HENT: Normocephalic, atraumatic, moist mucus membranes, oropharynx clear without exudates NECK: , Full range of motion, normal appearance PULMONARY: Clear to auscultation without wheezes, rhonchi, or rales, normal ex cursion, no accessory muscle use and no stridor CARDIOVASCULAR: Regular rate, rhythm, normal S1 and S2. No appreciated murmurs, rubs or gallops. Strong radial and dorsalis pedis pulses with intact distal perfusion. No lower extremity edema GASTROINTESTINAL: Soft, active bowel sounds throughout, non-tender, non- distended, no palpable masses, no rebound or guarding. No hepatosplenomegaly, right sided CVA/flank tenderness to palpation GENITOURINARY: MUSCULOSKELETAL: Extremities have no gross deformity, no edema, redness, or swelling. No calf swelling NEUROLOGIC:_a/o x 3, GCS 15, normal mentation and speech. Moves all extremities x 4 without motor or sensory deficit, no midline spinal tenderness to palpation PSYCHIATRIC:_normal mood and affect, thought process is clear and linear (Meena Nicole) Course Vital Signs 09/13/24 09/13/24 09/13/24 03:48 08:05 09:35 Temperature Pulse Rate 102 H 71 77 Pulse Rate [ Pulse Oximetery ] Respiratory 18 17 17 Rate Blood Pressure 136/81 106/72 129/85 Blood Pressure [Right Arm] O2 Sat by Pulse 95 99 95 Oximetry 09/13/24 09/13/24 09/13/24 09:47 11:21 13:30 Temperature 97.8 F 97.8 F Pulse Rate 74 77 Pulse Rate [ Pulse Oximetery ] Respiratory 17 16 Rate Blood Pressure 95/61 126/75 Blood Pressure [Right Arm] O2 Sat by Pulse 95 93 L Oximetry 09/13/24 09/13/24 14:06 15:09 Temperature 97.7 F 97.6 F Pulse Rate 82 Pulse Rate [ 83 Pulse Oximetery ] Respiratory 16 16 Rate Blood Pressure 128/87 Blood Pressure 148/91 [Right Arm] O2 Sat by Pulse 95 96 Oximetry Medical Decision Making - Lab Data Result diagrams: 09/13/24 05:43 09/13/24 05:43 <Prince Johnson - Last Filed: 09/13/24 10:09> - Lab Data Result diagrams: 09/19/24 05:34 09/19/24 05:34 <Meena Nicole - Last Filed: 09/20/24 03:12> - Medical Decision Making CT scan of abdomen and pelvis interpreted by myself does show right distal ureteral calculi, 5 mm with right-sided hydro and stranding. Case was discussed with urology Dr. Gayle who will admit Patient will be kept n.p.o. with cultures and IV antibiotics started. This is all been ordered. Patient reevaluated and updated. Patient is having only mild discomfort at this time. Patient had questionable subjective fever at home, none in the emergency department. Diagnosis: Kidney stone, UTI Acute, acute Complicated with urinary tract infection Threat of sepsis and renal dysfunction (Prince Johnson) Was pt. sent in by a medical professional or institution (, PA, SENIOR ESTIMATOR, urgent care, hospital, or jail...) When possible be specific @ -No Did you speak to anyone other than the patient for history (EMS, parent, family, police, friend...)? What history was obtained from this source @Spoke with patient's son who assisted in providing history at bedside Did you review nursing and triage notes (agree or disagree)? Why? @ -I reviewed and agree with nursing and triage notes Were old charts reviewed (outside hosp., previous admission, EMS record, old EKG, old radiological studies, urgent care reports/EKG's, jail records)? Report findings @Medical records reviewed Differential Diagnosis (chest pain, altered mental status, abdominal pain women, abdominal pain men, vaginal bleeding, weakness, fever, dyspnea, syncope, headache, dizziness, GI bleed, back pain, seizure, CVA, palpatations, mental health, musculoskeletal)? Differential Back Pain: Strain, zoster, cauda equina syndrome, epidural abscess, vertebral osteomyelitis, discitis, fracture, subluxation, disc herniation, DJD, spinal st enosis, dissection, AAA, pancreatitis, peptic ulcer disease, pyelonephritis, kidney stone, this is not meant to be an all-inclusive list. I have very low suspicion for infectious etiology including osteomyelitis, discitis or epidural abscess given no midline spinal tenderness palpation, no fevers, no overlying skin changes, I do not feel imaging to delineate for these etiologies further indicated unless significant lab abnormalities. EKG interpreted by me (3pts min.). @ -As above X-rays interpreted by me (1pt min.). @ -None done CT interpreted by me (1pt min.). @Please see my interpretation as noted below U/S interpreted by me (1pt. min.). @ -None done What testing was considered but not performed or refused? (CT, X-rays, U/S, labs)? Why? @ -None What meds were considered but not given or refused? Why? @ -None Did you discuss the management of the patient with other professionals (prof brandons i.e. , PA, SENIOR ESTIMATOR, lab, RT, psych nurse, social services analyst, differential tester, teacher, employment security officer, bottle caser)? Give summary @ -No Was smoking cessation discussed for >3mins.? @ -No Was critical care preformed (if so, how long)? @ -No Were there social determinants of health that impacted care today? How? (Homelessness, low income, unemployed, alcoholism, drug addiction, transportation, low edu. Level, literacy, decrease access to med. care, long term, rehab)? @ -No Was there de-escalation of care discussed even if they declined (Discuss DNR or withdrawal of care, Hospice)? @ -No What co-morbidities impacted this encounter? (DM, HTN, Smoking, COPD, CAD, Cancer, CVA, ARF, Chemo, Hep., AIDS, mental health diagnosis, sleep apnea, morbid obesity)? @ -None Was patient admitted / discharged? Hospital course, mention meds given and route, prescriptions, significant lab abnormalities, going to OR and other pertinent info. @ - Signed out to oncoming physician pending CT read. Patient is a pleasant 83-year-old gentleman presenting today for right flank pain. On my assessment patient is well-appearing and in no acute distress. +Right CVA TTP on exam. Discussed with patient and son plan for CT abdomen pelvis patient and son are agreeable plan Reviewed patient's labs, significant for mild leukocytosis white blood cell 11.9, CRP 0.9, lactic 1.1. Reviewed CT Ab/pelvis, I do see an approximately 6-7 mm stone in the right ureter. I reassessed the patient. He states that his pain is controlled. He is currently comfortable. I updated him the findings and concern for ureterolithiasis as well as pending radiologist read. Patient agreeable with plan. Currently pending radiologist read and UA, signed out to oncoming physician, Dr. Johnson. (,Meena) - Lab Data Lab Results 09/13/24 09/13/24 09/13/24 Range/Units 05:43 05:43 05:43 WBC 11.3 H (3.8-10.6) k/uL RBC 5.06 (4.30-5.90) m/uL Hgb 14.8 (13.0-17.5) gm/dL Hct 47.4 (39.0-53.0) % MCV 93.8 (80.0-100.0) fL MCH 29.2 (25.0-35.0) pg MCHC 31.2 (31.0-37.0) g/dL RDW 15.3 (11.5-15.5) % Plt Count 220 (150-450) k/uL MPV 7.6 Neutrophils % 84 % Lymphocytes % 7 % Monocytes % 6 % Eosinophils % 1 % Basophils % 0 % Neutrophils # 9.5 H (1.3-7.7) k/uL Lymphocytes # 0.8 L (1.0-4.8) k/uL Monocytes # 0.7 (0-1.0) k/uL Eosinophils # 0.1 (0-0.7) k/uL Basophils # 0.0 (0-0.2) k/uL Hypochromasia Sodium 139 (137-145) mmol/L Potassium 4.5 (3.5-5.1) mmol/L Chloride 109 H (98-107) mmol/L Carbon Dioxide 24 (22-30) mmol/L Anion Gap 6 mmol/L BUN 27 H (9-20) mg/dL Creatinine 1.18 (0.66-1.25) mg/dL Est GFR (CKD-EPI)AfAm 67 (>60 ml/min/1.73 sqM) Est GFR (CKD-EPI)NonAf 58 (>60 ml/min/1.73 sqM) Glucose 143 H (74-99) mg/dL POC Glucose (mg/dL) (70-110) mg/dL POC Glu Technical Support 1 Software Engineer ID Plasma Lactic Acid Efren 1.1 (0.7-2.0) mmol/L Calcium 8.9 (8.4-10.2) mg/dL Total Bilirubin 0.9 (0.2-1.3) mg/dL AST 23 (17-59) U/L ALT 15 (4-49) U/L Alkaline Phosphatase 168 H (38-126) U/L C-Reactive Protein 0.9 (<1.0) mg/dL Total Protein 5.8 L (6.3-8.2) g/dL Albumin 3.6 (3.5-5.0) g/dL Lipase 77 (23-300) U/L Urine Color Urine Appearance (Clear) Urine pH (5.0-8.0) Ur Specific [place] (1.001-1.035) Urine Protein (Negative) Urine Glucose (UA) (Negative) Urine Ketones (Negative) Urine Blood (Negative) Urine Nitrite (Negative) Urine Bilirubin (Negative) Urine Urobilinogen (<2.0) mg/dL Ur Leukocyte Esterase (Negative) Urine RBC (0-5) /hpf Urine WBC (0-5) /hpf Urine WBC Clumps (None) /hpf Urine Bacteria (None) /hpf Urine Mucus (None) /hpf 09/13/24 09/14/24 09/14/24 Range/Units 08:30 05:48 05:48 WBC 8.4 (3.8-10.6) k/uL RBC 4.87 (4.30-5.90) m/uL Hgb 14.2 (13.0-17.5) gm/dL Hct 46.4 (39.0-53.0) % MCV 95.3 (80.0-100.0) fL MCH 29.2 (25.0-35.0) pg MCHC 30.6 L (31.0-37.0) g/dL RDW 15.4 (11.5-15.5) % Plt Count 213 (150-450) k/uL MPV 7.7 Neutrophils % 92 % Lymphocytes % 5 % Monocytes % 2 % Eosinophils % 0 % Basophils % 0 % Neutrophils # 7.7 (1.3-7.7) k/uL Lymphocytes # 0.5 L (1.0-4.8) k/uL Monocytes # 0.2 (0-1.0) k/uL Eosinophils # 0.0 (0-0.7) k/uL Basophils # 0.0 (0-0.2) k/uL Hypochromasia Slight Sodium 139 (137-145) mmol/L Potassium 5.2 H (3.5-5.1) mmol/L Chloride 107 (98-107) mmol/L Carbon Dioxide 27 (22-30) mmol/L Anion Gap 5 mmol/L BUN 29 H (9-20) mg/dL Creatinine 1.46 H (0.66-1.25) mg/dL Est GFR (CKD-EPI)AfAm 51 (>60 ml/min/1.73 sqM) Est GFR (CKD-EPI)NonAf 45 (>60 ml/min/1.73 sqM) Glucose 140 H (74-99) mg/dL POC Glucose (mg/dL) (70-110) mg/dL POC Glu Technical Support 1 Software Engineer ID Plasma Lactic Acid Efren (0.7-2.0) mmol/L Calcium 8.7 (8.4-10.2) mg/dL Total Bilirubin 0.6 (0.2-1.3) mg/dL AST 21 (17-59) U/L ALT 14 (4-49) U/L Alkaline Phosphatase 138 H (38-126) U/L C-Reactive Protein (<1.0) mg/dL Total Protein 5.3 L (6.3-8.2) g/dL Albumin 3.2 L (3.5-5.0) g/dL Lipase (23-300) U/L Urine Color Yellow Urine Appearance Cloudy (Clear) Urine pH 6.0 (5.0-8.0) Ur Specific [place] 1.025 (1.001-1.035) Urine Protein Trace H (Negative) Urine Glucose (UA) 4+ H (Negative) Urine Ketones Negative (Negative) Urine Blood Large H (Negative) Urine Nitrite Negative (Negative) Urine Bilirubin Negative (Negative) Urine Urobilinogen <2.0 (<2.0) mg/dL Ur Leukocyte Esterase Large H (Negative) Urine RBC >182 H (0-5) /hpf Urine WBC >182 H (0-5) /hpf Urine WBC Clumps Few H (None) /hpf Urine Bacteria Few H (None) /hpf Urine Mucus Rare H (None) /hpf 09/15/24 09/15/24 09/16/24 Range/Units 06:44 06:44 06:29 WBC 17.7 H (3.8-10.6) k/uL RBC 4.39 (4.30-5.90) m/uL Hgb 13.2 (13.0-17.5) gm/dL Hct 41.0 (39.0-53.0) % MCV 93.4 (80.0-100.0) fL MCH 30.0 (25.0-35.0) pg MCHC 32.1 (31.0-37.0) g/dL RDW 16.0 H (11.5-15.5) % Plt Count 206 (150-450) k/uL MPV 8.1 Neutrophils % 93 % Lymphocytes % 3 % Monocytes % 4 % Eosinophils % 0 % Basophils % 0 % Neutrophils # 16.4 H (1.3-7.7) k/uL Lymphocytes # 0.6 L (1.0-4.8) k/uL Monocytes # 0.6 (0-1.0) k/uL Eosinophils # 0.0 (0-0.7) k/uL Basophils # 0.0 (0-0.2) k/uL Hypochromasia Sodium 138 (137-145) mmol/L Potassium 5.1 (3.5-5.1) mmol/L Chloride 109 H (98-107) mmol/L Carbon Dioxide 25 (22-30) mmol/L Anion Gap 4 mmol/L BUN 33 H (9-20) mg/dL Creatinine 1.15 (0.66-1.25) mg/dL Est GFR (CKD-EPI)AfAm 69 (>60 ml/min/1.73 sqM) Est GFR (CKD-EPI)NonAf 60 (>60 ml/min/1.73 sqM) Glucose 101 H (74-99) mg/dL POC Glucose (mg/dL) 101 (70-110) mg/dL POC Glu Technical Support 1 Software Engineer ID [place] Plasma Lactic Acid Efren (0.7-2.0) mmol/L Calcium 8.3 L (8.4-10.2) mg/dL Total Bilirubin 0.4 (0.2-1.3) mg/dL AST 21 (17-59) U/L ALT 13 (4-49) U/L Alkaline Phosphatase 125 (38-126) U/L C-Reactive Protein (<1.0) mg/dL Total Protein 5.0 L (6.3-8.2) g/dL Albumin 2.9 L (3.5-5.0) g/dL Lipase (23-300) U/L Urine Color Urine Appearance (Clear) Urine pH (5.0-8.0) Ur Specific [place] (1.001-1.035) Urine Protein (Negative) Urine Glucose (UA) (Negative) Urine Ketones (Negative) Urine Blood (Negative) Urine Nitrite (Negative) Urine Bilirubin (Negative) Urine Urobilinogen (<2.0) mg/dL Ur Leukocyte Esterase (Negative) Urine RBC (0-5) /hpf Urine WBC (0-5) /hpf Urine WBC Clumps (None) /hpf Urine Bacteria (None) /hpf Urine Mucus (None) /hpf 09/16/24 09/16/24 Range/Units 07:26 07:26 WBC 12.2 H (3.8-10.6) k/uL RBC 4.71 (4.30-5.90) m/uL Hgb 13.8 (13.0-17.5) gm/dL Hct 44.5 (39.0-53.0) % MCV 94.6 (80.0-100.0) fL MCH 29.2 (25.0-35.0) pg MCHC 30.9 L (31.0-37.0) g/dL RDW 15.4 (11.5-15.5) % Plt Count 208 (150-450) k/uL MPV 7.4 Neutrophils % 83 % Lymphocytes % 10 % Monocytes % 6 % Eosinophils % 0 % Basophils % 0 % Neutrophils # 10.2 H (1.3-7.7) k/uL Lymphocytes # 1.2 (1.0-4.8) k/uL Monocytes # 0.7 (0-1.0) k/uL Eosinophils # 0.0 (0-0.7) k/uL Basophils # 0.0 (0-0.2) k/uL Hypochromasia Sodium 138 (137-145) mmol/L Potassium 4.4 (3.5-5.1) mmol/L Chloride 108 H (98-107) mmol/L Carbon Dioxide 27 (22-30) mmol/L Anion Gap 3 mmol/L BUN 28 H (9-20) mg/dL Creatinine 1.08 (0.66-1.25) mg/dL Est GFR (CKD-EPI)AfAm 74 (>60 ml/min/1.73 sqM) Est GFR (CKD-EPI)NonAf 64 (>60 ml/min/1.73 sqM) Glucose 87 (74-99) mg/dL POC Glucose (mg/dL) (70-110) mg/dL POC Glu Technical Support 1 Software Engineer ID Plasma Lactic Acid Efren (0.7-2.0) mmol/L Calcium 8.3 L (8.4-10.2) mg/dL Total Bilirubin 0.4 (0.2-1.3) mg/dL AST 24 (17-59) U/L ALT 16 (4-49) U/L Alkaline Phosphatase 130 H (38-126) U/L C-Reactive Protein (<1.0) mg/dL Total Protein 5.0 L (6.3-8.2) g/dL Albumin 3.0 L (3.5-5.0) g/dL Lipase (23-300) U/L Urine Color Urine Appearance (Clear) Urine pH (5.0-8.0) Ur Specific [place] (1.001-1.035) Urine Protein (Negative) Urine Glucose (UA) (Negative) Urine Ketones (Negative) Urine Blood (Negative) Urine Nitrite (Negative) Urine Bilirubin (Negative) Urine Urobilinogen (<2.0) mg/dL Ur Leukocyte Esterase (Negative) Urine RBC (0-5) /hpf Urine WBC (0-5) /hpf Urine WBC Clumps (None) /hpf Urine Bacteria (None) /hpf Urine Mucus (None) /hpf Disposition Is patient prescribed a controlled substance at d/c from ED?: No Time of Disposition: 10:10 <Prince Johnson - Last Filed: 09/13/24 10:09> <Meena Nicole - Last Filed: 09/20/24 03:12> Clinical Impression: Kidney stone Disposition: ADMITTED IP TO THIS HOSP Condition: Stable
[2024-09-13] MEDS: SODIUM CHLORIDE 0.9% 500 ML 500 ML IV STA (05:36)
[2024-09-13] MEDS: ACETAMINOPHEN TAB 500 MG TAB PO STA (05:36)
[2024-09-13] MEDS: KETOROLAC 15 MG/ML 1 ML VIAL IVP STA (05:36)
[2024-09-13 05:57] LABS: Basophils % (A) 0 %; Eosinophils # (A) 0.1 k/uL (0-0.7); Eosinophils % (A) 1 %; HCT 47.4 % (39.0-53.0); HGB 14.8 gm/dL (13.0-17.5); Lymphocytes # (A) 0.8 k/uL (1.0-4.8); Lymphocytes % (A) 7 %; MCH 29.2 pg (25.0-35.0); MCHC 31.2 g/dL (31.0-37.0); MCV 93.8 fL (80.0-100.0); Mean Platelet Volume 7.6; Monocytes # (A) 0.7 k/uL (0-1.0); Monocytes % (A) 6 %; Neutrophils # (A) 9.5 k/uL (1.3-7.7); Neutrophils % (A) 84 %; Platelet Count 220 k/uL (150-450); RBC 5.06 m/uL (4.30-5.90); RDW 15.3 % (11.5-15.5); WBC 11.3 k/uL (3.8-10.6)
[2024-09-13 06:13] LABS: ALT 15 U/L (4-49); AST 23 U/L (17-59); African American GFR (CKD) 67 (>60 ml/min/1.73 sqM); Albumin 3.6 g/dL (3.5-5.0); Alkaline Phosphatase 168 U/L (38-126); Anion Gap 6 mmol/L; Blood Urea Nitrogen 27 mg/dL (9-20); C Reactive Protein 0.9 mg/dL (<1.0); Calcium 8.9 mg/dL (8.4-10.2); Carbon Dioxide 24 mmol/L (22-30); Chloride 109 mmol/L (98-107); Glucose 143 mg/dL (74-99); Lipase 77 U/L (23-300); Non-African American GFR(CKD) 58 (>60 ml/min/1.73 sqM); Potassium 4.5 mmol/L (3.5-5.1); Sodium 139 mmol/L (137-145); Total Bilirubin 0.9 mg/dL (0.2-1.3); Total Protein 5.8 g/dL (6.3-8.2)
[2024-09-13 09:00] LABS: Appearance,Urine Cloudy (Clear); Bacteria,Urine Few /hpf; Bilirubin,Urine Negative (Negative); Blood,Urine Large (Negative); Color,Urine Yellow; Glucose,Urine (UA) 4+ (Negative); Ketones,Urine Negative (Negative); Leukocyte Esterase,Urine Large (Negative); Mucus,Urine Rare /hpf; Nitrite,Urine Negative (Negative); Protein,Urine Trace (Negative); RBC,Urine >182 /hpf (0-5); Specific Gravity,Urine 1.025 (1.001-1.035); Urobilinogen,Urine <2.0 mg/dL (<2.0); WBC,Urine >182 /hpf (0-5)
--- NOTE | 2024-09-13 09:27 | CT ---
EXAMINATION TYPE: CT abdomen pelvis wo/w con DATE OF EXAM: 09/13/2024 COMPARISON: 05/27/2022 HISTORY: Patient is coming to facility with complaints of back pain. H/O renal stones. CT DLP: 2757 mGycm CONTRAST: CT scan of the abdomen and pelvis is performed without Oral Contrast and with IV Contrast, patient in jected with 100 ml mL of Isovue 300. FINDINGS: LUNG BASES-: No visible nodule. No infiltrate. LIVER/GB: Layering calculi within the gallbladder. No space occupying hepatic lesion. Biliary tree is of normal caliber. PANCREAS: No inflammation. No distinct mass. SPLEEN: No splenic enlargement. No lesion seen. ADRENALS: No nodule. No thickening. KIDNEYS/BLADDER: There is a 5.3 x 4.4 mm distal right ureteral calculus which resides approximately 3 .2 cm from the right UVJ. There is resultant [id number] right-sided hydronephrosis. There is ri ght perinephric stranding. Nonobstructing 2 mm calculus mid pole left kidney. No distinct renal mass. Urinary bladder grossly unremarkable. BOWEL: Normal appendix. Normal bowel caliber. No inflammation. GENITAL ORGANS: No gross abnormality. LYMPH NODES: No greater than 1cm abdominal or pelvic lymph nodes are appreciated. AORTA: No significant abnormality. OSSEOUS STRUCTURES: No significant abnormality is seen. OTHER: Small fat-containing umbilical hernia. IMPRESSION: 1. 5.3 x 4.4 mm distal right ureteral calculus which resides approximately 3.2 cm from the right UVJ. There is resultant [id number] right-sided hydronephrosis. There is right perinephric stranding . [facility], , 09/13/2024 7:54 AM
[2024-09-13] MEDS ORDERED: HYDROmorphone 0.5 MG/0.5 ML SYRINGE IVP PRN (10:10)
[2024-09-13] MEDS ORDERED: NALOXONE 0.4 MG/ML 1 ML VIAL IV PRN (10:10)
[2024-09-13] MEDS ORDERED: HYDROmorphone 1 MG/ML 1 ML SYRINGE IVP PRN (10:10)
[2024-09-13] MEDS: SODIUM CHLORIDE 0.9% 1,000 ML IV SCH (11:23)
--- NOTE | 2024-09-13 13:05 | P.GSHP ---
History of Present Illness H&P Date: 09/13/24 Chief Complaint: Right renal colic The patient is an 83-year-old white male with a history of urolithiasis. He has never required surgery for kidney stones. He denies any prior history of UTIs. Yesterday, he experienced acute onset of right flank pain radiating to the right groin, associated with nausea and vomiting. His symptoms have worsened and he presented to the ER for evaluation. CT scan shows evidence of right hydronephrosis due to a 4.4 x 5.3 mm right distal ureteral calculus. CT scan also shows a 2 mm nonobstructing left renal calculus. He is afebrile, but his WBC count is mildly elevated and urinalysis is suggestive of a UTI. - Constitutional Constitutional: Denies chills, Denies fever - Gastrointestinal Gastrointestinal: Reports nausea, Reports vomiting - Genitourinary (Male) Genitourinary: Reports dysuria, Reports flank pain, Reports hematuria, Reports kidney stones Past Medical History Past Medical History: Atrial Fibrillation, Asthma, Deep Vein Thrombosis (DVT), Hearing Disorder / Deafness, Hyperlipidemia, Hypertension, Osteoarthritis (OA), Pneumonia, Renal Disease Additional Past Medical History / Comment(s): Hx pneumonia yrs ago, RSV/ hospitalized x 2 weeks in ICU, dvt R calf, hiatal hernia, hx kidney stones, [place] use of bilateral hearing aids. History of Any Multi-Drug Resistant Organisms: None Reported Past Surgical History: Joint Replacement Additional Past Surgical History / Comment(s): Bilateral knee replacements., total L hip arthroplasty, LIS and cardioversions Past Anesthesia/Blood Transfusion Reactions: No Reported Reaction Past Psychological History: Depression Smoking Status: Never smoker Past Alcohol Use History: Occasional Past Drug Use History: None Reported - Past Family History Mother Family Medical History: No Reported History Medications and Allergies Home Medications Medication Instructions Recorded Confirmed Type Rivaroxaban [Xarelto] 20 mg PO HS 05/29/18 09/13/24 History Tamsulosin HCl [Flomax] 0.4 mg PO HS 05/29/18 09/13/24 History Albuterol Sulfate [Albuterol 1 puff INHALATION RT-Q4H PRN 10/07/21 09/13/24 History Sulfate Hfa] Fluticasone Nasal [place] [Flonase 1 spray EA NOSTRIL BID PRN 06/02/22 09/13/24 History Nasal [place]] Fluticasone/Umeclidin/Vilanter 1 puff INHALATION RT-DAILY 09/07/23 09/13/24 History [Trelegy Ellipta 200-62.5-25] Atorvastatin [Lipitor] 40 mg PO HS 10/16/23 09/13/24 History Ezetimibe [Zetia] 10 mg PO DAILY 10/16/23 09/13/24 History Levocetirizine Dihydrochloride 5 mg PO HS 10/16/23 09/13/24 History [Xyzal] Dapagliflozin Propanediol [Farxiga] 10 mg PO DAILY #30 tab 03/27/24 09/13/24 Rx Metoprolol Tartrate [Lopressor] 75 mg PO BID #60 tab 03/27/24 09/13/24 Rx Ammonium Lactate Lotion 1 applic TOPICAL BID 09/13/24 09/13/24 History [Lac-Hydrin 12% Lotion] Budesonide/Formoterol Fumarate 1 puff INHALATION RT-BID 09/13/24 09/13/24 History [Breyna 160-4.5 Mcg Inhaler] Pantoprazole [Protonix] 40 mg PO DAILY 09/13/24 09/13/24 History Venlafaxine HCl [Effexor XR] 37.5 mg PO HS 09/13/24 09/13/24 History Allergies Allergy/AdvReac Type Severity Reaction Status Date / Time rosuvastatin [From Crestor] AdvReac muscle Verified 09/13/24 10:41 soreness/cramps Surgical - Exam Vital Signs Pulse Resp BP Pulse Ox 102 H 18 136/81 95 09/13/24 03:48 09/13/24 03:48 09/13/24 03:48 09/13/24 03:48 - General well developed, well nourished, moderate distress - Respiratory normal respiratory effort - Abdomen Abdomen: soft, non tender, no guarding, no rigid, no rebound - Genitourinary normal penis with no external lesions, testicles non-tender - Psychiatric oriented to time, oriented to person, oriented to place, speech is normal, memory intact Results - Labs 09/13/24 05:43 09/13/24 05:43 Abnormal Lab Results - Last 24 Hours (Table) 09/13/24 09/13/24 09/13/24 Range/Units 05:43 05:43 08:30 WBC 11.3 H (3.8-10.6) k/uL Neutrophils # 9.5 H (1.3-7.7) k/uL Lymphocytes # 0.8 L (1.0-4.8) k/uL Chloride 109 H (98-107) mmol/L BUN 27 H (9-20) mg/dL Glucose 143 H (74-99) mg/dL Alkaline Phosphatase 168 H (38-126) U/L Total Protein 5.8 L (6.3-8.2) g/dL Urine Protein Trace H (Negative) Urine Glucose (UA) 4+ H (Negative) Urine Blood Large H (Negative) Ur Leukocyte Esterase Large H (Negative) Urine RBC >182 H (0-5) /hpf Urine WBC >182 H (0-5) /hpf Urine WBC Clumps Few H (None) /hpf Urine Bacteria Few H (None) /hpf Urine Mucus Rare H (None) /hpf Diabetes panel 09/13/24 Range/Units 05:43 Sodium 139 (137-145) mmol/L Potassium 4.5 (3.5-5.1) mmol/L Chloride 109 H (98-107) mmol/L Carbon Dioxide 24 (22-30) mmol/L BUN 27 H (9-20) mg/dL Creatinine 1.18 (0.66-1.25) mg/dL Glucose 143 H (74-99) mg/dL Calcium 8.9 (8.4-10.2) mg/dL AST 23 (17-59) U/L ALT 15 (4-49) U/L Alkaline Phosphatase 168 H (38-126) U/L Total Protein 5.8 L (6.3-8.2) g/dL Albumin 3.6 (3.5-5.0) g/dL Calcium panel 09/13/24 Range/Units 05:43 Calcium 8.9 (8.4-10.2) mg/dL Albumin 3.6 (3.5-5.0) g/dL Pituitary panel 09/13/24 Range/Units 05:43 Sodium 139 (137-145) mmol/L Potassium 4.5 (3.5-5.1) mmol/L Chloride 109 H (98-107) mmol/L Carbon Dioxide 24 (22-30) mmol/L BUN 27 H (9-20) mg/dL Creatinine 1.18 (0.66-1.25) mg/dL Glucose 143 H (74-99) mg/dL Calcium 8.9 (8.4-10.2) mg/dL Adrenal panel 09/13/24 Range/Units 05:43 Sodium 139 (137-145) mmol/L Potassium 4.5 (3.5-5.1) mmol/L Chloride 109 H (98-107) mmol/L Carbon Dioxide 24 (22-30) mmol/L BUN 27 H (9-20) mg/dL Creatinine 1.18 (0.66-1.25) mg/dL Glucose 143 H (74-99) mg/dL Calcium 8.9 (8.4-10.2) mg/dL Total Bilirubin 0.9 (0.2-1.3) mg/dL AST 23 (17-59) U/L ALT 15 (4-49) U/L Alkaline Phosphatase 168 H (38-126) U/L Total Protein 5.8 L (6.3-8.2) g/dL Albumin 3.6 (3.5-5.0) g/dL - Imaging CT scan - abdomen: report reviewed, image reviewed Assessment and Plan (1) Calculus of ureter Current Visit: Yes Status: Acute Code(s): N20.1 - CALCULUS OF URETER SNOMED Code(s): 59085675 (2) UTI (urinary tract infection) Current Visit: Yes Status: Acute Code(s): N39.0 - URINARY TRACT INFECTION, SITE NOT SPECIFIED SNOMED Code(s): 91023305 (3) Hydronephrosis with renal and ureteral calculous obstruction Current Visit: Yes Status: Acute Code(s): N13.2 - HYDRONEPHROSIS WITH RENAL AND URETERAL CALCULOUS OBSTRUCTION SNOMED Code(s): 813968248 Plan: A urine culture was sent, and the patient has received Rocephin. I have made arrangements for Mr. Brennan to undergo cystoscopy with right ureteral stent insertion, to relieve his right ureteral obstruction. The rationale for this was discussed with him, as were potential risks which include anesthesia, bleeding, inability to place the stent, and ureteral injury. The patient has been advised that he will require a secondary procedure in 2 to 4 weeks, consisting of cystoscopy, right ureteral stent removal, and ureteroscopic removal of the right ureteral calculus once his infection has resolved. Time with Patient: Greater than 30
[2024-09-13] MEDS: IV FLUID CONTINUATION 1,000 ML IV ONE (15:15)
[2024-09-13] MEDS ORDERED: FLUTICASONE NASAL 50MCG/SPRAY 16GM BTL EA NOSTRIL PRN (15:16)
[2024-09-13] MEDS ORDERED: ALBUTEROL NEBULIZED 2.5 MG/3 ML INHALATION PRN (15:16)
--- NOTE | 2024-09-13 15:16 | P.CONS ---
History of Present Illness - Reason for Consult Consult date: 09/13/24 Medical management Requesting physician: Sharad Smiley - Chief Complaint Right distal ureteral stone with hydronephrosis/UTI - History of Present Illness HISTORY OF PRESENT ILLNESS This is a 83-year-old male with past medical history of hypertension, paroxysmal atrial fibrillation on Xarelto, benign prostatic hypertrophy, hiatal hernia, hereditary factor VIII deficiency, hyperlipidemia, mild intermittent asthma, possible COPD, patient was brought into the Emergency Department at [facility] today 3:00 in the morning because of severe right sided flank pain associated with intractable nausea and vomiting radiating to the groin area, he had a CT scan of the abdomen pelvis that showed evidence of 4.4 x 5.3 mm distal right ureteral stone with right hydronephrosis, patient also was found to have an evidence of UTI with SIRS without evidence of sepsis, he was started on IV antibiotic in the form of Rocephin, he was placed on pain medication, and he was seen in by urology admitted under urology service he is going for a cystoscopy with right ureteral stent placement to relieve the obstruction and urine culture was obtained still pending at time of dictation, I was asked to see the patient for medical management. REVIEW OF SYSTEMS Constitutional: No fever, no chills, no night sweats. No weight change. no weakness, no fatigue or lethargy. EENT: No headache. No blurred vision or double vision, no loss of vision. very hard of Hearing, no ringing in the ears, no dizziness. No nasal drainage o r congestion. No epistaxis. No sore throat. Lungs: No shortness of breath, no cough, dyspnea on exertion, no pleurisy no hemoptysis. Cardiovascular: No chest pain, no lower extremity edema. No palpitations. No paroxysmal nocturnal dyspnea. No orthopnea. No lightheadedness or dizziness. No syncopal episodes. Abdominal: Positive right flank abdominal pain. Positive for nausea, vomiting. No diarrhea. No constipation. No bloody or tarry stools. No loss of appetite. Genitourinary: No dysuria, increased frequency, urgency. No urinary retention. Musculoskeletal: No myalgias. Reports muscle weakness, no gait dysfunction, positive for frequent falls. No back pain. No neck pain. Integumentary: No wounds, no lesions. No rash or pruritus. No unusual bruising. No change in hair or nails. Neurologic: No aphasia. No facial droop. No change in mentation. No head injury. No headache. No paralysis. No paresthesia. Psychiatric: No depression. No anxiety. No mood swings. Endocrine: No abnormal blood sugars. No weight change. No excessive sweating or thirst. No cold intolerance. MEDICAL HISTORY Hypertension Paroxysmal atrial fibrillation Benign prostatic hypertrophy Hiatal hernia Hereditary factor VIII deficiency Hyperlipidemia Mild intermittent asthma COPD SURGICAL HISTORY Hernia repair Bilateral knee replacement SOCIAL HISTORY Patient is a lifelong nonsmoker, no alcohol use or abuse, no marijuana or illicit drug use. Patient lives at home with his . FAMILY HISTORY Father at age 88 from CVA and had CABG 25 years earlier. Mother at age 88 at F with history of hyperlipidemia. Patient has 2 brothers and one at age 21 in airplane crash and the other one has had multiple surgeries. Patient has one son with no major medical problems and one daughter with no major medical problem. PHYSICAL EXAMINATION Gen: This is an obese 83-year-old male, resting in bed, appears to be fairly comfortable at rest. HEENT: Head is atraumatic, normocephalic. Pupils equal, round. Sclerae is anicteric. NECK: Supple. No JVD. No lymphadenopathy. No thyromegaly. LUNGS: decreased breath sound at bases, few rhonchi no expiratory wheezes no chest wall tenderness no intercostal retractions HEART: First heart sound is depressed, second heart sound is normal, 2/6 systolic ejection murmur at the left sternal border, irregular irregular due to atrial fibrillation. ABDOMEN: Soft. Bowel sounds are present. No masses. No tenderness. EXTREMITIES: +1 pedal edema. No calf tenderness. Pain in the left hip. Dorsalis pedis palpable bilaterally. NEUROLOGICAL: Patient is awake, alert and oriented x3. Cranial nerves 2 through 12 are grossly intact, muscle power 4/5 upper and lower extremities bilaterally ASSESSMENT AND PLAN 1. Right distal ureteral stone with right-sided hydronephrosis continue IV fluid resuscitation, continue patient on IV antibiotic in the form of Rocephin 2 g piggyback every 24 hours, check urine culture, patient is scheduled to go for cystoscopy with right ureteral stent placement by Dr. Shelby later on today. 2. chronic diastolic heart failure . Continue metoprolol 75 mg orally twice every day, monitor the patient's symptoms very closely continue Farxiga 10 mg orally once every day. 3. COPD without exacerbation. Continue patient on albuterol every 4 hours as needed for shortness of breath, Symbicort 804 0.5 g 2 puffs twice daily. 4. Mild intermittent asthma. Continue Singulair 10 mg at bedtime, levocetirizine 5 mg once daily, albuterol nebulizer treatments every 4 hours as needed. 5. Paroxysmal atrial fibrillation. hold Xarelto until after the procedure, continue Lopressor 75 mg twice daily. Continue Farxiga 10 mg orally once every day. 6. Benign prostatic hypertrophy. Continue Flomax 0.4 mg at bedtime, monitor for urinary retention. 7. Hereditary factor VIII deficiency. Continue Xarelto 20 mg once a day. 8. Hyperlipidemia. Continue Zetia 10 mg daily and Atorvastatin 40 mg once a day. Monitor the patient lipid panel, keep LDL 55-70 9. Hypertension and hypertensive cardiovascular disease. Continue Lopressor 75 mg twice daily. 10. GI prophylaxis. Protonix 40 mg po daily. 11. DVT prophylaxis. hold Xarelto until after the procedure. 12. Major depressive disorder. Continue patient on Effexor XR 37.5 mg orally once every day. 13. Thank you Dr. Smiley for allowing me to participate in the care of your patient will follow the patient with you. Past Medical History Past Medical History: Atrial Fibrillation, Asthma, Deep Vein Thrombosis (DVT), Hearing Disorder / Deafness, Hyperlipidemia, Hypertension, Osteoarthritis (OA), Pneumonia, Renal Disease Additional Past Medical History / Comment(s): Hx pneumonia yrs ago, RSV/ hospitalized x 2 weeks in ICU, dvt R calf, hiatal hernia, hx kidney stones, [place] use of bilateral hearing aids. History of Any Multi-Drug Resistant Organisms: None Reported Past Surgical History: Joint Replacement Additional Past Surgical History / Comment(s): Bilateral knee replacements., total L hip arthroplasty, LIS and cardioversions Past Anesthesia/Blood Transfusion Reactions: No Reported Reaction Past Psychological History: Depression Smoking Status: Never smoker Past Alcohol Use History: Occasional Past Drug Use History: None Reported - Past Family History Mother Family Medical History: No Reported History Medications and Allergies Home Medications Medication Instructions Recorded Confirmed Type Rivaroxaban [Xarelto] 20 mg PO HS 05/29/18 09/13/24 History Tamsulosin HCl [Flomax] 0.4 mg PO HS 05/29/18 09/13/24 History Albuterol Sulfate [Albuterol 1 puff INHALATION RT-Q4H PRN 10/07/21 09/13/24 History Sulfate Hfa] Fluticasone Nasal [place] [Flonase 1 spray EA NOSTRIL BID PRN 06/02/22 09/13/24 History Nasal [place]] Fluticasone/Umeclidin/Vilanter 1 puff INHALATION RT-DAILY 09/07/23 09/13/24 History [Trelegy Ellipta 200-62.5-25] Atorvastatin [Lipitor] 40 mg PO HS 10/16/23 09/13/24 History Ezetimibe [Zetia] 10 mg PO DAILY 10/16/23 09/13/24 History Levocetirizine Dihydrochloride 5 mg PO HS 10/16/23 09/13/24 History [Xyzal] Dapagliflozin Propanediol [Farxiga] 10 mg PO DAILY #30 tab 03/27/24 09/13/24 Rx Metoprolol Tartrate [Lopressor] 75 mg PO BID #60 tab 03/27/24 09/13/24 Rx Ammonium Lactate Lotion 1 applic TOPICAL BID 09/13/24 09/13/24 History [Lac-Hydrin 12% Lotion] Budesonide/Formoterol Fumarate 1 puff INHALATION RT-BID 09/13/24 09/13/24 History [Breyna 160-4.5 Mcg Inhaler] Pantoprazole [Protonix] 40 mg PO DAILY 09/13/24 09/13/24 History Venlafaxine HCl [Effexor XR] 37.5 mg PO HS 09/13/24 09/13/24 History Allergies Allergy/AdvReac Type Severity Reaction Status Date / Time rosuvastatin [From Crestor] AdvReac muscle Verified 09/13/24 10:41 soreness/cramps Physical Exam Vitals: Vital Signs Temp Pulse Resp BP Pulse Ox 09/13/24 14:06 97.7 F 82 16 128/87 95 09/13/24 13:30 97.8 F 77 16 126/75 93 L 09/13/24 11:21 74 17 95/61 95 09/13/24 09:47 97.8 F 09/13/24 09:35 77 17 129/85 95 10/25/24 08:05 71 17 106/72 99 09/13/24 03:48 102 H 18 136/81 95 Intake and Output 09/13/24 09/13/24 09/13/24 06:59 14:59 22:59 Other: Weight 104.326 kg Results CBC & Chem 7: 09/13/24 05:43 09/13/24 05:43 Labs: Abnormal Lab Results - Last 24 Hours (Table) 09/13/24 09/13/24 09/13/24 Range/Units 05:43 05:43 08:30 WBC 11.3 H (3.8-10.6) k/uL Neutrophils # 9.5 H (1.3-7.7) k/uL Lymphocytes # 0.8 L (1.0-4.8) k/uL Chloride 109 H (98-107) mmol/L BUN 27 H (9-20) mg/dL Glucose 143 H (74-99) mg/dL Alkaline Phosphatase 168 H (38-126) U/L Total Protein 5.8 L (6.3-8.2) g/dL Urine Protein Trace H (Negative) Urine Glucose (UA) 4+ H (Negative) Urine Blood Large H (Negative) Ur Leukocyte Esterase Large H (Negative) Urine RBC >182 H (0-5) /hpf Urine WBC >182 H (0-5) /hpf Urine WBC Clumps Few H (None) /hpf Urine Bacteria Few H (None) /hpf Urine Mucus Rare H (None) /hpf
[2024-09-13] MEDS: methylPREDNISolone SOD SUCCI 125 MG/2 ML VIAL IV STA (15:28)
[2024-09-13] MEDS: ONDANSETRON 4 MG/2 ML VIAL IVP STA (15:30)
[2024-09-13] MEDS ORDERED: HYDROmorphone 2 MG/ML 1 ML SYRINGE IVP PRN (15:31)
[2024-09-13] MEDS: IPRATROPIUM-ALBUTEROL 3 ML NEB INHALATION STA (15:32)
[2024-09-13] MEDS ORDERED: fentaNYL (PF) 50 MCG/ML 2 ML AMP ONE (15:34)
[2024-09-13] MEDS ORDERED: MIDAZOLAM 2 MG/2 ML VIAL ONE (15:34)
[2024-09-13] MEDS ORDERED: GLYCOPYRROLATE 0.2 MG/ML 2 ML VIAL ONE (15:34)
[2024-09-13] MEDS ORDERED: KETAMINE HCL IN 0.9 % NACL 50 MG/5 ML SYRINGE ONE (15:34)
[2024-09-13] MEDS ORDERED: LIDOCAINE 1% INJ 10MG/ML (20 ML MDV) ONE (15:34)
[2024-09-13] MEDS ORDERED: PROPOFOL 10 MG/ML 20 ML VIAL IV ONE (15:34)
[2024-09-13] MEDS: LIDOCAINE 2% URO-JET JELLY 5 ML KIT URETHRAL ONE (15:53)
--- NOTE | 2024-09-13 16:17 | P.OP ---
Date of Procedure: 09/13/24 Preoperative Diagnosis: Right hydronephrosis secondary to right ureteral calculus Postoperative Diagnosis: Same Procedure(s) Performed: Cystoscopy, right ureteral stent insertion Anesthesia: MAC Surgeon: Sharad Smiley Estimated Blood Loss (ml): 5 IV fluids (ml): 500 Pathology: none sent Condition: stable Disposition: PACU Indications for Procedure: The patient is an 83-year-old white male with a history of urolithiasis. He has never required surgery for kidney stones. He denies any prior history of UTIs. Yesterday, he experienced acute onset of right flank pain radiating to the right groin, associated with nausea and vomiting. His symptoms have worsened and he presented to the ER for evaluation. CT scan shows evidence of right hydronephrosis due to a 4.4 x 5.3 mm right distal ureteral calculus. CT scan also shows a 2 mm nonobstructing left renal calculus. He is afebrile, but his WBC count is mildly elevated and urinalysis is suggestive of a UTI. He has received Rocephin and now comes for right ureteral stent insertion. Operative Findings: Successful right ureteral stent placement. Description of Procedure: The patient was taken to the operating room and placed in the dorsolithotomy position, with legs supported in Sal stirrups. The external genitalia was prepped and draped sterilely. 2% lidocaine gel was administered intraurethrally. The 30 lens was used to introduce the 22-[place] Stortz cystoscopic sheath through the urethra and into the bladder under direct vision. The prostatic urethra showed evidence of significant lateral lobe enlargement with visual occlusion. The bladder was examined in its entirety. Both ureteral orifices were of normal anatomic location and configuration. Clear urine effluxed from the left ureteral orifice, but bloody urine effluxed from the right ureteral orifice. No tumors or foreign bodies were seen. The bladder was moderately trabeculated with several cellules. A 0.035 inch Glidewire was passed through the cystoscope. The right ureteral orifice was cannulated, and the Glidewire was slowly advanced. Resistance was met at the level of the calculus, which was not radiopaque, but the Glidewire was manipulated beyond the calculus and up to the renal pelvis, where it coiled. Significant amount of bloody urine drained alongside the Glidewire. A 26 cm, 6-[place] double-J ureteral stent was placed over the wire. Proper stent positioning was verified fluoroscopically and endoscopically. With the beak of the cystoscope immediately adjacent to the distal end of the stent, urine was collected and sent for culture and sensitivity. The bladder was emptied and the cystoscope removed. The patient tolerated the procedure well and was taken to the recovery room in stable condition.
[2024-09-13] MEDS: PHENYLEPHRINE-0.9% NACL SYG 1,000 MCG/10 ML SYRINGE IVP ONE (16:33)
[2024-09-13] MEDS: SODIUM CHLORIDE 0.9% 1,000 ML IV ONE ×2 (16:33→17:32)
--- NOTE | 2024-09-13 16:36 | FL ---
EXAMINATION TYPE: FL guidance operating room DATE OF EXAM: 09/13/2024 Comparison: None FLUOROSCOPY cystoscopy rt side fl time- 18.3 dap-[id number] One image submitted. [facility], , 09/13/2024 4:33 PM
[2024-09-13] MEDS: SYMBICORT 160-4.5 MCG INHALER INHALATION SCH (19:54)
[2024-09-13] MEDS ORDERED: RIVAROXABAN 20 MG TAB PO SCH (21:00)
[2024-09-13] MEDS: ATORVASTATIN 40 MG TAB PO SCH (21:29)
[2024-09-13] MEDS: LORATADINE 10 MG TAB PO SCH (21:29)
[2024-09-13] MEDS: TAMSULOSIN 0.4 MG CAP.ER.24H PO SCH (21:29)
[2024-09-13] MEDS: METOPROLOL TARTRATE 25 MG TAB PO SCH (21:30)
[2024-09-13] MEDS: VENLAFAXINE HCL ER 37.5 MG CAP PO SCH (21:56)
[2024-09-13] MEDS: AMMONIUM LACTATE 12% LOTION 225 GM BTL TOPICAL SCH (21:56)
[2024-09-14] MEDS: PANTOPRAZOLE 40 MG TABLET PO SCH (06:44)
[2024-09-14 06:49] LABS: Basophils % (A) 0 %; Eosinophils % (A) 0 %; HCT 46.4 % (39.0-53.0); HGB 14.2 gm/dL (13.0-17.5); Hypochromasia Slight; Lymphocytes # (A) 0.5 k/uL (1.0-4.8); Lymphocytes % (A) 5 %; MCH 29.2 pg (25.0-35.0); MCHC 30.6 g/dL (31.0-37.0); MCV 95.3 fL (80.0-100.0); Mean Platelet Volume 7.7; Monocytes # (A) 0.2 k/uL (0-1.0); Monocytes % (A) 2 %; Neutrophils # (A) 7.7 k/uL (1.3-7.7); Neutrophils % (A) 92 %; Platelet Count 213 k/uL (150-450); RBC 4.87 m/uL (4.30-5.90); RDW 15.4 % (11.5-15.5); WBC 8.4 k/uL (3.8-10.6)
[2024-09-14 07:05] LABS: ALT 14 U/L (4-49); AST 21 U/L (17-59); African American GFR (CKD) 51 (>60 ml/min/1.73 sqM); Albumin 3.2 g/dL (3.5-5.0); Alkaline Phosphatase 138 U/L (38-126); Anion Gap 5 mmol/L; Blood Urea Nitrogen 29 mg/dL (9-20); Calcium 8.7 mg/dL (8.4-10.2); Carbon Dioxide 27 mmol/L (22-30); Chloride 107 mmol/L (98-107); Glucose 140 mg/dL (74-99); Non-African American GFR(CKD) 45 (>60 ml/min/1.73 sqM); Potassium 5.2 mmol/L (3.5-5.1); Sodium 139 mmol/L (137-145); Total Bilirubin 0.6 mg/dL (0.2-1.3); Total Protein 5.3 g/dL (6.3-8.2)
[2024-09-14] MEDS: EZETIMIBE 10 MG TAB PO SCH (08:29)
[2024-09-14] MEDS: DAPAGLIFLOZIN PROPANEDIOL 10 MG TABLET PO SCH (08:29)
[2024-09-14] MEDS: IPRATROPIUM 0.5 MG/2.5 ML NEBU INHALATION SCH (09:17)
--- NOTE | 2024-09-14 10:03 | P.PN ---
Subjective Progress Note Date: 09/14/24 HISTORY OF PRESENT ILLNESS This is a 83-year-old male with past medical history of hypertension, paroxysmal atrial fibrillation on Xarelto, benign prostatic hypertrophy, hiatal hernia, hereditary factor VIII deficiency, hyperlipidemia, mild intermittent asthma, possible COPD, patient was brought into the Emergency Department at [facility] today 3:00 in the morning because of severe right sided flank pain associated with intractable nausea and vomiting radiating to the groin area, he had a CT scan of the abdomen pelvis that showed evidence of 4.4 x 5.3 mm distal right ureteral stone with right hydronephrosis, patient also was found to have an evidence of UTI with SIRS without evidence of sepsis, he was started on IV antibiotic in the form of Rocephin, he was placed on pain medication, and he was seen in by urology admitted under urology service he is going for a cystoscopy with right ureteral stent placement to relieve the obstruction and urine culture was obtained still pending at time of dictation, I was asked to see the patient for medical management. 09/14: Patient sitting up in bed in no apparent distress, he underwent yesterday cystoscopy with J stent placement of the right ureter, urine culture was sent, he continues to be on IV antibiotic in the form of ceftriaxone, 2 g of piggyback every 24 hours, urine culture still pending, we will follow-up with the patient very closely continue IV fluid resuscitation in the form of normal saline 75 cc an hour, restart the patient back on Xarelto 20 mg once every day, I will follow-up with the patient during his hospital stay, hopefully if we get the results of the urine culture patient can be discharged home in the next 1 or 2 days. REVIEW OF SYSTEMS Constitutional: No fever, no chills, no night sweats. No weight change. no weakness, no fatigue or lethargy. EENT: No headache. No blurred vision or double vision, no loss of vision. very hard of Hearing, no ringing in the ears, no dizziness. No nasal drainage or congestion. No epistaxis. No sore throat. Lungs: No shortness of breath, no cough, dyspnea on exertion, no pleurisy no hemoptysis. Cardiovascular: No chest pain, no lower extremity edema. No palpitations. No paroxysmal nocturnal dyspnea. No orthopnea. No lightheadedness or dizziness. No syncopal episodes. Abdominal: No right flank abdominal pain. Negative for nausea, vomiting. No diarrhea. No constipation. No bloody or tarry stools. No loss of appetite. Genitourinary: No dysuria, increased frequency, urgency. No urinary retention. Musculoskeletal: No myalgias. Reports muscle weakness, no gait dysfunction, positive for frequent falls. No back pain. No neck pain. Integumentary: No wounds, no lesions. No rash or pruritus. No unusual bruising. No change in hair or nails. Neurologic: No aphasia. No facial droop. No change in mentation. No head injury. No headache. No paralysis. No paresthesia. Psychiatric: No depression. No anxiety. No mood swings. Endocrine: No abnormal blood sugars. No weight change. No excessive sweating or thirst. No cold intolerance. PHYSICAL EXAMINATION Gen: This is an obese 83-year-old male, resting in bed, appears to be fairly comfortable at rest. HEENT: Head is atraumatic, normocephalic. Pupils equal, round. Sclerae is anicteric. NECK: Supple. No JVD. No lymphadenopathy. No thyromegaly. LUNGS: decreased breath sound at bases, few rhonchi no expiratory wheezes no chest wall tenderness no intercostal retractions HEART: First heart sound is depressed, second heart sound is normal, 2/6 systolic ejection murmur at the left sternal border, irregular irregular due to atrial fibrillation. ABDOMEN: Soft. Bowel sounds are present. No masses. No tenderness. EXTREMITIES: +1 pedal edema. No calf tenderness. Pain in the left hip. Dorsa lis pedis palpable bilaterally. NEUROLOGICAL: Patient is awake, alert and oriented x3. Cranial nerves 2 through 12 are grossly intact, muscle power 4/5 upper and lower extremities bilaterally ASSESSMENT AND PLAN 1. Right distal ureteral stone with right-sided hydronephrosis status post cystoscopy with J stent placement of the right ureter, continue patient on ceftriaxone 2 g every back every 24 hours, monitor for urine culture, continue current pain management, continue IV resuscitation in the form of normal saline 75 cc an hour. 2. chronic diastolic heart failure . Continue metoprolol 75 mg orally twice every day, monitor the patient's symptoms very closely continue Farxiga 10 mg orally once every day. 3. COPD without exacerbation. Continue patient on albuterol every 4 hours as needed for shortness of breath, Symbicort 804 0.5 g 2 puffs twice daily. 4. Mild intermittent asthma. Continue Singulair 10 mg at bedtime, levocetirizine 5 mg once daily, albuterol nebulizer treatments every 4 hours as needed. 5. Paroxysmal atrial fibrillation. Continue Xarelto 20 mg once every day, continue Lopressor 75 mg twice daily. Continue Farxiga 10 mg orally once every day. 6. Benign prostatic hypertrophy. Continue Flomax 0.4 mg at bedtime, monitor for urinary retention. 7. Hereditary factor VIII deficiency. Continue Xarelto 20 mg once a day. 8. Hyperlipidemia. Continue Zetia 10 mg daily and Atorvastatin 40 mg once a day. Monitor the patient lipid panel, keep LDL 55-70 9. Hypertension and hypertensive cardiovascular disease. Continue Lopressor 75 mg twice daily. 10. GI prophylaxis. Protonix 40 mg po daily. 11. DVT prophylaxis. Restart the patient Xarelto 20 mg once every day. 12. Major depressive disorder. Continue patient on Effexor XR 37.5 mg orally once every day. 13. We will continue to follow with you. Objective - Vital Signs Vital signs: Vital Signs Temp 97.5 F L 09/14/24 04:00 Pulse 82 09/14/24 09:27 Resp 16 09/14/24 04:00 BP 109/65 09/14/24 04:00 Pulse Ox 98 09/14/24 04:00 FiO2 Intake & Output 09/13/24 09/14/24 09/14/24 18:59 06:59 18:59 Intake Total 900 0 118 Output Total 5 450 Balance 895 -450 118 Weight 104.326 kg 111 kg Intake: IV 900 Oral 0 118 Output: Urine 450 Estimated Blood Loss 5 Other: # Voids 1 - Labs CBC & Chem 7: 09/14/24 05:48 09/14/24 05:48 Labs: Abnormal Lab Results - Last 24 Hours (Table) 09/14/24 09/14/24 Range/Units 05:48 05:48 MCHC 30.6 L (31.0-37.0) g/dL Lymphocytes # 0.5 L (1.0-4.8) k/uL Potassium 5.2 H (3.5-5.1) mmol/L BUN 29 H (9-20) mg/dL Creatinine 1.46 H (0.66-1.25) mg/dL Glucose 140 H (74-99) mg/dL Alkaline Phosphatase 138 H (38-126) U/L Total Protein 5.3 L (6.3-8.2) g/dL Albumin 3.2 L (3.5-5.0) g/dL
--- NOTE | 2024-09-14 10:07 | P.PN ---
Subjective Progress Note Date: 09/14/24 Principal diagnosis: Right ureteral calculus, UTI Patient presented with right renal colic due to a right distal ureteral calculus. Urinalysis was suggestive of a UTI, so he underwent right ureteral stent insertion on September 13, 2024. He is currently receiving Rocephin, pending urine culture results. He denies dysuria and flank pain. He has very minimal hematuria. Objective - Vital Signs Vital signs: Vital Signs Temp 97.5 F L 09/14/24 04:00 Pulse 65 09/14/24 04:00 Resp 16 09/14/24 04:00 BP 109/65 09/14/24 04:00 Pulse Ox 98 09/14/24 04:00 FiO2 Intake & Output 09/13/24 09/14/24 09/14/24 18:59 06:59 18:59 Intake Total 900 0 Output Total 5 450 Balance 895 -450 Weight 104.326 kg 111 kg Intake: IV 900 Oral 0 Output: Urine 450 Estimated Blood Loss 5 Other: # Voids 1 - Constitutional General appearance: Present: average body habitus, cooperative, no acute distre ss - Psychiatric Psychiatric: Present: A&O x's 3 - Labs CBC & Chem 7: 09/14/24 05:48 09/14/24 05:48 Labs: Abnormal Lab Results - Last 24 Hours (Table) 09/13/24 09/14/24 09/14/24 Range/Units 08:30 05:48 05:48 MCHC 30.6 L (31.0-37.0) g/dL Lymphocytes # 0.5 L (1.0-4.8) k/uL Potassium 5.2 H (3.5-5.1) mmol/L BUN 29 H (9-20) mg/dL Creatinine 1.46 H (0.66-1.25) mg/dL Glucose 140 H (74-99) mg/dL Alkaline Phosphatase 138 H (38-126) U/L Total Protein 5.3 L (6.3-8.2) g/dL Albumin 3.2 L (3.5-5.0) g/dL Urine Protein Trace H (Negative) Urine Glucose (UA) 4+ H (Negative) Urine Blood Large H (Negative) Ur Leukocyte Esterase Large H (Negative) Urine RBC >182 H (0-5) /hpf Urine WBC >182 H (0-5) /hpf Urine WBC Clumps Few H (None) /hpf Urine Bacteria Few H (None) /hpf Urine Mucus Rare H (None) /hpf Assessment and Plan (1) Calculus of ureter Current Visit: Yes Status: Acute Code(s): N20.1 - CALCULUS OF URETER SNOMED Code(s): 14294333 (2) UTI (urinary tract infection) Current Visit: Yes Status: Acute Code(s): N39.0 - URINARY TRACT INFECTION, SITE NOT SPECIFIED SNOMED Code(s): 65121763 (3) Hydronephrosis with renal and ureteral calculous obstruction Current Visit: Yes Status: Acute Code(s): N13.2 - HYDRONEPHROSIS WITH RENAL AND URETERAL CALCULOUS OBSTRUCTION SNOMED Code(s): 933074485 Plan: - Continue Rocephin, pending urine culture results. - Continue tamsulosin. - Resume Xarelto. - Anticipate discharge home once cultures are complete.
--- NOTE | 2024-09-14 12:46 | P.CNPUL ---
History of Present Illness Consult date: 09/14/24 Requesting physician: Perfecto Oates Reason for consult: other (Postoperative hypotension and evaluation for possible ICU admission) Chief complaint: Right-sided flank pain with intact nausea and vomiting History of present illness: This is an 83-year-old white male admitted on 09/13/2024, patient was admitted with mostly symptoms of right hydronephrosis and right ureteral calculus. Underwent cystoscopy and right ureteral stent insertion. Postoperatively and while in the recovery room, patient was relatively hypotensive I was notified about the patient to evaluate and possibly admit to the ICU. I evaluated the patient in the recovery room, and during my evaluation he was felt to be stable enough to be transferred to 3 S. and not ICU. Patient had no shortness of breath, no chest pain, no cough, no wheezing, and he was definitely hemodynamically stable during my evaluation. Patient is already on antibiotics for presumptive urosepsis, and pyelonephritis. Patient is being followed by primary care for his acute urosepsis.Urine came back positive for group D Enterococcus, hence antibiotics will likely need to be changed to Unasyn. The patient was transferred to 3 . last night, he seems to be doing well, remains stable, not in any distress, reviewed the cultures from his urine, and change of ceftriaxone to Unasyn Review of Systems REVIEW OF SYSTEMS: CONSTITUTIONAL: Negative. EYES: Negative. ENT: Negative. CARDIAC: Negative. PULMONARY: As above. GI: Nausea and vomiting in the setting of acute pyelonephritis GENITOURINARY: As noted in HPI, mostly symptoms of right flank pain with nausea and vomiting MUSCULOSKELETAL: Negative. SKIN: Negative. NEUROPSYCH: Negative. ENDOCRINE: Negative. HEMATOLOGIC: Negative. Past Medical History Past Medical History: Atrial Fibrillation, Asthma, Deep Vein Thrombosis (DVT), Hearing Disorder / Deafness, Hyperlipidemia, Hypertension, Osteoarthritis (OA), Pneumonia, Renal Disease Additional Past Medical History / Comment(s): Hx pneumonia yrs ago, RSV/ hospitalized x 2 weeks in ICU, dvt R calf, hiatal hernia, hx kidney stones, ROBINSON use of bilateral hearing aids. History of Any Multi-Drug Resistant Organisms: None Reported Past Surgical History: Joint Replacement Additional Past Surgical History / Comment(s): Bilateral knee replacements., total L hip arthroplasty, LIS and cardioversions Past Anesthesia/Blood Transfusion Reactions: No Reported Reaction Past Psychological History: Depression Additional Psychological History / Comment(s): Pt resides alone. Spouse 04/2023 Smoking Status: Never smoker Past Alcohol Use History: Occasional Additional Past Alcohol Use History / Comment(s): Quit smoking 50 yrs ago. Past Drug Use History: None Reported - Past Family History Mother Family Medical History: No Reported History Medications and Allergies Home Medications Medication Instructions Recorded Confirmed Type Rivaroxaban [Xarelto] 20 mg PO HS 05/29/18 09/13/24 History Tamsulosin HCl [Flomax] 0.4 mg PO HS 05/29/18 09/13/24 History Albuterol Sulfate [Albuterol 1 puff INHALATION RT-Q4H PRN 10/07/21 09/13/24 History Sulfate Hfa] Fluticasone Nasal Ringsted [Flonase 1 spray EA NOSTRIL BID PRN 06/02/22 09/13/24 History Nasal Ringsted] Fluticasone/Umeclidin/Vilanter 1 puff INHALATION RT-DAILY 09/07/23 09/13/24 History [Velasquez Ellipta 200-62.5-25] Atorvastatin [Lipitor] 40 mg PO HS 10/16/23 09/13/24 History Ezetimibe [Zetia] 10 mg PO DAILY 10/16/23 09/13/24 History Levocetirizine Dihydrochloride 5 mg PO HS 10/16/23 09/13/24 History [Xyzal] Dapagliflozin Propanediol [Farxiga] 10 mg PO DAILY #30 tab 03/27/24 09/13/24 Rx Metoprolol Tartrate [Lopressor] 75 mg PO BID #60 tab 03/27/24 09/13/24 Rx Ammonium Lactate Lotion 1 applic TOPICAL BID 09/13/24 09/13/24 History [Lac-Hydrin 12% Lotion] Budesonide/Formoterol Fumarate 1 puff INHALATION RT-BID 09/13/24 09/13/24 History [Breyna 160-4.5 Mcg Inhaler] Pantoprazole [Protonix] 40 mg PO DAILY 09/13/24 09/13/24 History Venlafaxine HCl [Effexor XR] 37.5 mg PO HS 09/13/24 09/13/24 History Allergies Allergy/AdvReac Type Severity Reaction Status Date / Time rosuvastatin [From Crestor] AdvReac muscle Verified 09/13/24 10:41 soreness/cramps Physical Exam Vitals: Vital Signs Temp Pulse Pulse Resp BP BP Pulse Ox 09/14/24 12:05 80 09/14/24 11:55 86 09/14/24 11:50 86 16 125/68 93 L 09/14/24 09:27 82 09/14/24 09:18 76 09/14/24 08:05 98.2 F 82 16 131/69 94 L 09/14/24 04:00 97.5 F L 65 16 109/65 98 09/14/24 01:28 85 16 09/14/24 00:00 97.6 F 85 16 110/67 97 09/13/24 19:39 97.5 F L 89 16 132/78 97 09/13/24 18:01 91 18 09/13/24 17:45 91 136/89 97 09/13/24 17:16 103 H 18 115/61 95 09/13/24 17:01 109 H 18 103/69 93 L 09/13/24 16:53 109 H 18 124/59 97 09/13/24 16:48 107 H 18 109/68 97 09/13/24 16:42 111 H 18 98/62 97 09/13/24 16:34 96 18 104/60 96 09/13/24 16:28 109 H 18 83/64 98 09/13/24 16:24 101 H 18 87/52 98 09/13/24 16:19 105 H 18 98/52 98 09/13/24 16:14 97 F L 115 H 18 96/56 99 09/13/24 15:09 97.6 F 83 16 148/91 96 09/13/24 14:06 97.7 F 82 16 128/87 95 09/13/24 13:30 97.8 F 77 16 126/75 93 L Intake and Output 09/13/24 09/14/24 09/14/24 22:59 06:59 14:59 Intake Total 900 118 Output Total 5 450 150 Balance 895 -450 -32 Intake: IV 900 Oral 0 118 Output: Urine 450 150 Estimated Blood Loss 5 Other: # Voids 1 Weight 104.326 kg 111 kg Gen: 83-year-old white male in no distress, on room air HEENT: Head is atraumatic, normocephalic. Pupils equal, round. Sclerae is anicteric. NECK: Supple no neck masses no thyromegaly no JVD no lymphadenopathy LUNGS: Good breath sound bilaterally no crackles rhonchi or wheezes HEART: Distant S1-S2, 2/6 systolic murmur left lower sternal border. ABDOMEN: Obese soft nontender no megaly no rebound no guarding EXTREMITIES: trace of bipedal edema, no clubbing, no cyanosis, good pulses bilaterally NEUROLOGICAL: Alert and oriented x 3 no gross focal neurologic deficit Psychiatric: Normal mood affect and no mental status examination Skin: No rash Results - Laboratory Findings CBC and BMP: 09/14/24 05:48 09/14/24 05:48 Abnormal lab findings: Abnormal Labs 09/13/24 09/13/24 09/13/24 05:43 05:43 08:30 WBC 11.3 H MCHC Neutrophils # 9.5 H Lymphocytes # 0.8 L Potassium Chloride 109 H BUN 27 H Creatinine Glucose 143 H Alkaline Phosphatase 168 H Total Protein 5.8 L Albumin Urine Protein Trace H Urine Glucose (UA) 4+ H Urine Blood Large H Ur Leukocyte Esterase Large H Urine RBC >182 H Urine WBC >182 H Urine WBC Clumps Few H Urine Bacteria Few H Urine Mucus Rare H 09/14/24 09/14/24 05:48 05:48 WBC MCHC 30.6 L Neutrophils # Lymphocytes # 0.5 L Potassium 5.2 H Chloride BUN 29 H Creatinine 1.46 H Glucose 140 H Alkaline Phosphatase 138 H Total Protein 5.3 L Albumin 3.2 L Urine Protein Urine Glucose (UA) Urine Blood Ur Leukocyte Esterase Urine RBC Urine WBC Urine WBC Clumps Urine Bacteria Urine Mucus - Diagnostic Findings Additional studies: CT abdomen and pelvis report was reviewed, clearly showed a 5.3 x 4.4 mm distal right ureteral calculus and evidence of mild right-sided hydronephrosis. And there is evidence of right perinephric stranding. Assessment and Plan Assessment: Impression: Acute pyelonephritis Acute hydronephrosis secondary to right ureteral calculus status post cystoscopy and ureteral stent placement History of chronic diastolic congestive heart failure History of underlying COPD Paroxysmal atrial fibrillation History of benign prostatic hypertrophy History of hypertension Dyslipidemia History of factor VIII deficiency Recommendation: Considering the cultures of the urine showing group D Enterococcus, will transition the antibiotics from ceftriaxone to Unasyn Continue to monitor on 3 S., I saw the patient yesterday and today, and recommended no need for ICU admission Continue bronchodilators and cardiac meds Check final report on the urine and blood cultures and adjust antibiotics accordingly Will continue to follow Time with Patient: Greater than 30
[2024-09-14] MEDS: AMPICILLIN-SULBACTAM 1.5 GM in SODIUM CHLORIDE 0.9% 50 ML IVPB SCH (17:01)
[2024-09-14] MEDS: RIVAROXABAN 15 MG TAB PO SCH (17:01)
[2024-09-14] MEDS ORDERED: RIVAROXABAN 20 MG TAB PO SCH (17:30)
[2024-09-15 07:41] LABS: Basophils % (A) 0 %; Eosinophils % (A) 0 %; HGB 13.2 gm/dL (13.0-17.5); Lymphocytes # (A) 0.6 k/uL (1.0-4.8); Lymphocytes % (A) 3 %; MCHC 32.1 g/dL (31.0-37.0); MCV 93.4 fL (80.0-100.0); Mean Platelet Volume 8.1; Monocytes # (A) 0.6 k/uL (0-1.0); Monocytes % (A) 4 %; Neutrophils # (A) 16.4 k/uL (1.3-7.7); Neutrophils % (A) 93 %; Platelet Count 206 k/uL (150-450); RBC 4.39 m/uL (4.30-5.90); WBC 17.7 k/uL (3.8-10.6)
[2024-09-15 08:09] LABS: African American GFR (CKD) 69 (>60 ml/min/1.73 sqM); Albumin 2.9 g/dL (3.5-5.0); Anion Gap 4 mmol/L; Blood Urea Nitrogen 33 mg/dL (9-20); Calcium 8.3 mg/dL (8.4-10.2); Carbon Dioxide 25 mmol/L (22-30); Chloride 109 mmol/L (98-107); Glucose 101 mg/dL (74-99); Non-African American GFR(CKD) 60 (>60 ml/min/1.73 sqM); Potassium 5.1 mmol/L (3.5-5.1); Sodium 138 mmol/L (137-145)
[2024-09-15 08:10] LABS: ALT 13 U/L (4-49); AST 21 U/L (17-59); Alkaline Phosphatase 125 U/L (38-126); Total Bilirubin 0.4 mg/dL (0.2-1.3)
--- NOTE | 2024-09-15 10:53 | P.PN ---
Subjective Progress Note Date: 09/15/24 HISTORY OF PRESENT ILLNESS This is a 83-year-old male with past medical history of hypertension, paroxysmal atrial fibrillation on Xarelto, benign prostatic hypertrophy, hiatal hernia, hereditary factor VIII deficiency, hyperlipidemia, mild intermittent asthma, possible COPD, patient was brought into the Emergency Department at [facility] today 3:00 in the morning because of severe right sided flank pain associated with intractable nausea and vomiting radiating to the groin area, he had a CT scan of the abdomen pelvis that showed evidence of 4.4 x 5.3 mm distal right ureteral stone with right hydronephrosis, patient also was found to have an evidence of UTI with SIRS without evidence of sepsis, he was started on IV antibiotic in the form of Rocephin, he was placed on pain medication, and he was seen in by urology admitted under urology service he is going for a cystoscopy with right ureteral stent placement to relieve the obstruction and urine culture was obtained still pending at time of dictation, I was asked to see the patient for medical management. 09/14: Patient sitting up in bed in no apparent distress, he underwent yesterday cystoscopy with J stent placement of the right ureter, urine culture was sent, he continues to be on IV antibiotic in the form of ceftriaxone, 2 g of piggyback every 24 hours, urine culture still pending, we will follow-up with the patient very closely continue IV fluid resuscitation in the form of normal saline 75 cc an hour, restart the patient back on Xarelto 20 mg once every day, I will follow-up with the patient during his hospital stay, hopefully if we get the results of the urine culture patient can be discharged home in the next 1 or 2 days. 09/15: Patient is laying down in bed in no apparent distress, he denies any chest pain, shortness of breath, he denies any abdominal pain, nausea vomiting or diarrhea, he has no pain in the right flank area, he has a new episode of hematuria we will continue to monitor the patient very closely, CBC and CMP were done, no significant drop in the hemoglobin, his urine culture is positive for group D Enterococcus, discontinue ceftriaxone start the patient on Unasyn 3 g piggyback every 8 hours monitor the patient very closely. REVIEW OF SYSTEMS Constitutional: No fever, no chills, no night sweats. No weight change. no weakness, no fatigue or lethargy. EENT: No headache. No blurred vision or double vision, no loss of vision. very hard of Hearing, no ringing in the ears, no dizziness. No nasal drainage or congestion. No epistaxis. No sore throat. Lungs: No shortness of breath, no cough, dyspnea on exertion, no pleurisy no hemoptysis. Cardiovascular: No chest pain, no lower extremity edema. No palpitations. No paroxysmal nocturnal dyspnea. No orthopnea. No lightheadedness or dizziness. No syncopal episodes. Abdominal: No right flank abdominal pain. Negative for nausea, vomiting. No diarrhea. No constipation. No bloody or tarry stools. No loss of appetite. Genitourinary: No dysuria, increased frequency, urgency. No urinary retention, positive for hematuria Musculoskeletal: No myalgias. Reports no muscle weakness, no gait dysfunction, positive for frequent falls. No back pain. No neck pain. Integumentary: No wounds, no lesions. No rash or pruritus. No unusual bruising. No change in hair or nails. Neurologic: No aphasia. No facial droop. No change in mentation. No head injury. No headache. No paralysis. No paresthesia. Psychiatric: No depression. No anxiety. No mood swings. Endocrine: No abnormal blood sugars. No weight change. No excessive sweating or thirst. No cold intolerance. PHYSICAL EXAMINATION Gen: This is an obese 83-year-old male, resting in bed, appears to be fairly comfortable at rest. HEENT: Head is atraumatic, normocephalic. Pupils equal, round. Sclerae is anicteric. NECK: Supple. No JVD. No lymphadenopathy. No thyromegaly. LUNGS: decreased breath sound at bases, few rhonchi no expiratory wheezes no chest wall tenderness no intercostal retractions HEART: First heart sound is depressed, second heart sound is normal, 2/6 systolic ejection murmur at the left sternal border, irregular irregular due to atrial fibrillation. ABDOMEN: Soft. Bowel sounds are present. No masses. No tenderness. EXTREMITIES: +1 pedal edema. No calf tenderness. Pain in the left hip. Dorsalis pedis palpable bilaterally. NEUROLOGICAL: Patient is awake, alert and oriented x3. Cranial nerves 2 through 12 are grossly intact, muscle power 4/5 upper and lower extremities bilaterally ASSESSMENT AND PLAN 1. Right distal ureteral stone with right-sided hydronephrosis status post cystoscopy with J stent placement of the right ureter, continue patient on ceftriaxone 2 g every back every 24 hours, monitor for urine culture, continue current pain management, Hep-Lock his IV. 2. Gross hematuria likely related to recent instrumentation. Monitor the patient CBC, hold Xarelto if hemoglobin is dropping overnight. 3. Group D Enterococcus UTI without sepsis. patient was taken off ceftriaxone and he was started on Unasyn patient may be switched to oral Augmentin 875/125 mg orally twice every day for 7 days when the urine cultures are back. 4. chronic diastolic heart failure . Continue metoprolol 75 mg orally twice every day, monitor the patient's symptoms very closely continue Farxiga 10 mg orally once every day. Hep-Lock his IV. 5. COPD without exacerbation. Continue patient on albuterol every 4 hours as needed for shortness of breath, Symbicort 804 0.5 g 2 puffs twice daily. 6. Mild intermittent asthma. Continue Singulair 10 mg at bedtime, levocetirizine 5 mg once daily, albuterol nebulizer treatments every 4 hours as needed. 7. Paroxysmal atrial fibrillation. Continue Xarelto 20 mg once every day, continue Lopressor 75 mg twice daily. Continue Farxiga 10 mg orally once every day. 8. Benign prostatic hypertrophy. Continue Flomax 0.4 mg at bedtime, monitor for urinary retention. 9. Hereditary factor VIII deficiency. Continue Xarelto 20 mg once a day. 10. Hyperlipidemia. Continue Zetia 10 mg daily and Atorvastatin 40 mg once a day. Monitor the patient lipid panel, keep LDL 55-70 11. Hypertension and hypertensive cardiovascular disease. Continue Lopressor 75 mg twice daily. 12. GI prophylaxis. Protonix 40 mg po daily. 13. DVT prophylaxis. Restart the patient Xarelto 20 mg once every day. 14. Major depressive disorder. Continue patient on Effexor XR 37.5 mg orally once every day. 15. We will continue to follow with you. Objective - Vital Signs Vital signs: Vital Signs Temp 97.6 F 09/15/24 03:29 Pulse 92 09/15/24 08:24 Resp 16 09/15/24 03:29 BP 104/76 09/15/24 03:29 Pulse Ox 94 L 09/15/24 03:29 FiO2 Intake & Output 09/14/24 09/15/24 09/15/24 18:59 06:59 18:59 Intake Total 358 120 Output Total 850 650 Balance -492 -530 Intake: Oral 358 120 Output: Urine 850 650 - Labs CBC & Chem 7: 09/15/24 06:44 09/15/24 06:44 Labs: Abnormal Lab Results - Last 24 Hours (Table) 09/15/24 09/15/24 Range/Units 06:44 06:44 WBC 17.7 H (3.8-10.6) k/uL RDW 16.0 H (11.5-15.5) % Neutrophils # 16.4 H (1.3-7.7) k/uL Lymphocytes # 0.6 L (1.0-4.8) k/uL Chloride 109 H (98-107) mmol/L BUN 33 H (9-20) mg/dL Glucose 101 H (74-99) mg/dL Calcium 8.3 L (8.4-10.2) mg/dL Total Protein 5.0 L (6.3-8.2) g/dL Albumin 2.9 L (3.5-5.0) g/dL Microbiology - Last 24 Hours (Table) 09/13/24 16:11 Urine Culture - Preliminary Urine,Voided 09/14/24 00:00 Blood Culture - Preliminary Blood 09/13/24 08:30 Urine Culture - Preliminary Urine,Voided Group D Enterococcus
--- NOTE | 2024-09-15 13:08 | P.PN ---
Subjective Progress Note Date: 09/15/24 Principal diagnosis: Acute pyelonephritis This is an 83-year-old white male admitted on 09/13/2024, patient was admitted with mostly symptoms of right hydronephrosis and right ureteral calculus. Underwent cystoscopy and right ureteral stent insertion. Postoperatively and while in the recovery room, patient was relatively hypotensive I was notified about the patient to evaluate and possibly admit to the ICU. I evaluated the patient in the recovery room, and during my evaluation he was felt to be stable enough to be transferred to 3 S. and not ICU. Patient had no shortness of breath, no chest pain, no cough, no wheezing, and he was definitely hemodynamically stable during my evaluation. Patient is already on antibiotics for presumptive urosepsis, and pyelonephritis. Patient is being followed by primary care for his acute urosepsis.Urine came back positive for group D Enterococcus, hence antibiotics will likely need to be changed to Unasyn. The patient was transferred to 3 S. last night, he seems to be doing well, remains stable, not in any distress, reviewed the cultures from his urine, and change of ceftriaxone to Unasyn Patient was evaluated today on 09/15/2024, on room air, does not seem to be in any distress, patient is hemodynamically stable. Continues to have gross hematuria most likely related to instrumentation and underlying urinary tract i nfection. Patient is afebrile, hemodynamically stable. His urine cultures came back positive for group D Enterococcus presently on Unasyn which could be transitioned eventually to Augmentin. WBC 17.7 hemoglobin 13.2 basic metabolic profile is normal bicarb is 33 creatinine down to 1.15 Objective - Vital Signs Vital signs: Vital Signs Temp 97.8 F 09/15/24 08:15 Pulse 92 09/15/24 11:41 Resp 16 09/15/24 11:20 BP 119/72 09/15/24 11:20 Pulse Ox 94 L 09/15/24 11:20 FiO2 Intake & Output 09/14/24 09/15/24 09/15/24 18:59 06:59 18:59 Intake Total 358 120 240 Output Total 850 650 300 Balance -492 -530 -60 Intake: Oral 358 120 240 Output: Urine 850 650 300 - Exam Gen: 83-year-old white male in no distress, on room air HEENT: Head is atraumatic, normocephalic. Pupils equal, round. Sclerae is anicteric. NECK: Supple no neck masses no thyromegaly no JVD no lymphadenopathy LUNGS: Good breath sound bilaterally no crackles rhonchi or wheezes HEART: Distant S1-S2, 2/6 systolic murmur left lower sternal border. ABDOMEN: Obese soft nontender no megaly no rebound no guarding EXTREMITIES: trace of bipedal edema, no clubbing, no cyanosis, good pulses bilaterally NEUROLOGICAL: Alert and oriented x 3 no gross focal neurologic deficit Psychiatric: Normal mood affect and no mental status examination Skin: No rash - Labs CBC & Chem 7: 09/15/24 06:44 09/15/24 06:44 Labs: Abnormal Lab Results - Last 24 Hours (Table) 09/15/24 09/15/24 Range/Units 06:44 06:44 WBC 17.7 H (3.8-10.6) k/uL RDW 16.0 H (11.5-15.5) % Neutrophils # 16.4 H (1.3-7.7) k/uL Lymphocytes # 0.6 L (1.0-4.8) k/uL Chloride 109 H (98-107) mmol/L BUN 33 H (9-20) mg/dL Glucose 101 H (74-99) mg/dL Calcium 8.3 L (8.4-10.2) mg/dL Total Protein 5.0 L (6.3-8.2) g/dL Albumin 2.9 L (3.5-5.0) g/dL Microbiology - Last 24 Hours (Table) 09/13/24 08:30 Urine Culture - Final Urine,Voided Enterococcus faecalis 09/13/24 16:11 Urine Culture - Preliminary Urine,Voided 09/14/24 00:00 Blood Culture - Preliminary Blood Assessment and Plan Assessment: Impression: Acute pyelonephritis Acute hydronephrosis secondary to right ureteral calculus status post cystoscopy and ureteral stent placement History of chronic diastolic congestive heart failure History of underlying COPD Paroxysmal atrial fibrillation History of benign prostatic hypertrophy History of hypertension Dyslipidemia History of factor VIII deficiency Recommendation: Continue Unasyn for now, may eventually transition to Augmentin orally Continue to monitor on 3 S., Continue bronchodilators and cardiac meds Will continue to follow Time with Patient: Less than 30
[2024-09-15] MEDS: RIVAROXABAN 20 MG TAB PO SCH (17:05)
--- NOTE | 2024-09-15 20:49 | P.PN ---
Subjective Progress Note Date: 09/15/24 Principal diagnosis: Right ureteral calculus, UTI Patient presented with right renal colic due to a right distal ureteral calculus. Urinalysis was suggestive of a UTI, so he underwent right ureteral stent insertion on September 13, 2024. He states that he is feeling well. He reports minimal dysuria at the beginning of his urinary stream. He denies flank pain. He is experiencing some hematuria and understands that this will persist intermittently until his stent is removed. Urine culture shows an Enterococcus UTI, and Rocephin has been changed to Unasyn. Preliminary blood cultures are negative. Objective - Vital Signs Vital signs: Vital Signs Temp 98.4 F 09/15/24 16:10 Pulse 72 09/15/24 20:36 Resp 16 09/15/24 16:10 BP 112/74 09/15/24 16:10 Pulse Ox 95 09/15/24 16:10 FiO2 Intake & Output 09/15/24 09/15/24 09/16/24 06:59 18:59 06:59 Intake Total 120 600 Output Total 650 1300 Balance -530 -700 Intake: Oral 120 600 Output: Urine 650 1300 - Constitutional General appearance: Present: average body habitus, cooperative, no acute distress - Psychiatric Psychiatric: Present: A&O x's 3 - Labs CBC & Chem 7: 09/15/24 06:44 09/15/24 06:44 Labs: Abnormal Lab Results - Last 24 Hours (Table) 09/15/24 09/15/24 Range/Units 06:44 06:44 WBC 17.7 H (3.8-10.6) k/uL RDW 16.0 H (11.5-15.5) % Neutrophils # 16.4 H (1.3-7.7) k/uL Lymphocytes # 0.6 L (1.0-4.8) k/uL Chloride 109 H (98-107) mmol/L BUN 33 H (9-20) mg/dL Glucose 101 H (74-99) mg/dL Calcium 8.3 L (8.4-10.2) mg/dL Total Protein 5.0 L (6.3-8.2) g/dL Albumin 2.9 L (3.5-5.0) g/dL Microbiology - Last 24 Hours (Table) 09/13/24 08:30 Urine Culture - Final Urine,Voided Enterococcus faecalis 09/13/24 16:11 Urine Culture - Preliminary Urine,Voided 09/14/24 00:00 Blood Culture - Preliminary Blood Assessment and Plan Assessment: The patient's condition continues to improve. The increase in his WBC count this morning was unexpected. (1) Calculus of ureter Current Visit: Yes Status: Acute Code(s): N20.1 - CALCULUS OF URETER SNOMED Code(s): 86382828 (2) UTI (urinary tract infection) Current Visit: Yes Status: Acute Code(s): N39.0 - URINARY TRACT INFECTION, SITE NOT SPECIFIED SNOMED Code(s): 40994619 (3) Hydronephrosis with renal and ureteral calculous obstruction Current Visit: Yes Status: Acute Code(s): N13.2 - HYDRONEPHROSIS WITH RENAL AND URETERAL CALCULOUS OBSTRUCTION SNOMED Code(s): 036355350 Plan: - Continue Unasyn. - Continue tamsulosin. - Repeat CBC in AM - Anticipate discharge in 1 to 2 days on Augmentin. Arrangements will be made for him to undergo outpatient surgery (cystoscopy, right ureteral stent removal, right ureteroscopy with holmium laser lithotripsy and possible stone basketing).
[2024-09-16 06:31] LABS: Glucose,Whole Blood 101 mg/dL (70-110)
[2024-09-16 08:24] LABS: Basophils % (A) 0 %; Eosinophils % (A) 0 %; HCT 44.5 % (39.0-53.0); HGB 13.8 gm/dL (13.0-17.5); Lymphocytes # (A) 1.2 k/uL (1.0-4.8); Lymphocytes % (A) 10 %; MCH 29.2 pg (25.0-35.0); MCHC 30.9 g/dL (31.0-37.0); MCV 94.6 fL (80.0-100.0); Mean Platelet Volume 7.4; Monocytes # (A) 0.7 k/uL (0-1.0); Monocytes % (A) 6 %; Neutrophils # (A) 10.2 k/uL (1.3-7.7); Neutrophils % (A) 83 %; Platelet Count 208 k/uL (150-450); RBC 4.71 m/uL (4.30-5.90); RDW 15.4 % (11.5-15.5); WBC 12.2 k/uL (3.8-10.6)
[2024-09-16 08:38] LABS: ALT 16 U/L (4-49); AST 24 U/L (17-59); African American GFR (CKD) 74 (>60 ml/min/1.73 sqM); Alkaline Phosphatase 130 U/L (38-126); Anion Gap 3 mmol/L; Blood Urea Nitrogen 28 mg/dL (9-20); Calcium 8.3 mg/dL (8.4-10.2); Carbon Dioxide 27 mmol/L (22-30); Chloride 108 mmol/L (98-107); Glucose 87 mg/dL (74-99); Non-African American GFR(CKD) 64 (>60 ml/min/1.73 sqM); Potassium 4.4 mmol/L (3.5-5.1); Sodium 138 mmol/L (137-145); Total Bilirubin 0.4 mg/dL (0.2-1.3)
--- NOTE | 2024-09-16 12:05 | P.PN ---
Subjective Progress Note Date: 09/16/24 Principal diagnosis: Kidney stone, urinary tract infection. This is an 83-year-old white male admitted on 09/13/2024, patient was admitted with mostly symptoms of right hydronephrosis and right ureteral calculus. Underwent cystoscopy and right ureteral stent insertion. Postoperatively and while in the recovery room, patient was relatively hypotensive I was notified about the patient to evaluate and possibly admit to the ICU. I evaluated the patient in the recovery room, and during my evaluation he was felt to be stable enough to be transferred to 3 S. and not ICU. Patient had no shortness of breath, no chest pain, no cough, no wheezing, and he was definitely hemodyna mically stable during my evaluation. Patient is already on antibiotics for presumptive urosepsis, and pyelonephritis. Patient is being followed by primary care for his acute urosepsis.Urine came back positive for group D Enterococcus, hence antibiotics will likely need to be changed to Unasyn. The patient was transferred to 3 S. last night, he seems to be doing well, remains stable, not in any distress, reviewed the cultures from his urine, and change of ceftriaxone to Unasyn Patient was evaluated today on 09/15/2024, on room air, does not seem to be in any distress, patient is hemodynamically stable. Continues to have gross hematuria most likely related to instrumentation and underlying urinary tract infection. Patient is afebrile, hemodynamically stable. His urine cultures came back positive for group D Enterococcus presently on Unasyn which could be transitioned eventually to Augmentin. WBC 17.7 hemoglobin 13.2 basic metabolic profile is normal bicarb is 33 creatinine down to 1.15 Progress note dated September 16, 2024. 83-year-old male seen today in room 351. He is currently on room air. He is getting saline at 75 cc an hour. The patient seems to be doing relatively well. He is resting comfortably. No acute distress. Certainly no respiratory distress. Urine cultures came back positive for group D Enterococcus. Current laboratory data includes a white count 12.2, hemoglobin 13.8, hematocrit 44.5, and a platelet count of 208,000. Sodium 138, potassium 4.4, chlorides 108, CO2 27, BUN 28, and creatinine 1.08. Albumin is 3. Calcium is 8.3. The patient had a cystoscopy, with a right ureteral stent insertion. Objective - Vital Signs Vital signs: Vital Signs Temp 98.1 F 09/16/24 08:00 Pulse 72 09/16/24 11:06 Resp 16 09/16/24 08:00 BP 121/76 09/16/24 08:00 Pulse Ox 95 09/16/24 08:00 FiO2 Intake & Output 09/15/24 09/16/24 09/16/24 18:59 06:59 18:59 Intake Total 600 250 Output Total 1300 1900 Balance -700 -1900 250 Weight 112.4 kg Intake: Oral 600 250 Output: Urine 1300 1900 Other: Voiding Method External Catheter External Catheter - Exam No acute distress, oriented 3. HEENT examination is grossly unremarkable. Mucous membranes are moist. No oral lesions. Neck supple. Full range of motion. No adenopathy thyromegaly or neck vein distention. Cardiovascular examination reveals regular rhythm rate. S1-S2 normal. No S3 or S4. No discernible murmur noted. Lungs reveal clear breath sounds. Breath sounds are equal bilaterally. No adventitious lung sounds including wheezes rhonchi or crackles. Abdomen soft bowel sounds are heard. No masses or tenderness. Extremities are intact. No cyanosis clubbing or edema. Skin is without rash or lesion. Neurologic examination is brief but nonfocal. - Labs CBC & Chem 7: 09/16/24 07:26 09/16/24 07:26 Labs: Abnormal Lab Results - Last 24 Hours (Table) 09/16/24 09/16/24 Range/Units 07:26 07:26 WBC 12.2 H (3.8-10.6) k/uL MCHC 30.9 L (31.0-37.0) g/dL Neutrophils # 10.2 H (1.3-7.7) k/uL Chloride 108 H (98-107) mmol/L BUN 28 H (9-20) mg/dL Calcium 8.3 L (8.4-10.2) mg/dL Alkaline Phosphatase 130 H (38-126) U/L Total Protein 5.0 L (6.3-8.2) g/dL Albumin 3.0 L (3.5-5.0) g/dL Microbiology - Last 24 Hours (Table) 09/13/24 16:11 Urine Culture - Final Urine,Voided Enterococcus faecalis 09/14/24 00:00 Blood Culture - Preliminary Blood 09/13/24 08:30 Urine Culture - Final Urine,Voided Enterococcus faecalis Assessment and Plan Assessment: Acute pyelonephritis, secondary to group D Enterococcus. Acute hydronephrosis, secondary to right ureteral calculus, S/P cystoscopy, and right ureteral stent. History of chronic diastolic CHF. History of COPD. History of paroxysmal atrial fibrillation. History of benign prostatic hypertrophy. History of hypertension. History of dyslipidemia. History of factor VIII deficiency. Plan: Plan dated September 16, 2024. The patient is seen today in room 351. The patient appears to be resting comfortably. He is on room air. He is getting saline at 75 cc an hour. The patient had a right ureteral stent placed. Urine sampling, shows evidence of Enterococcus faecalis. The patient continues on Unasyn. Labs, x-rays, and all medications are reviewed. We will continue to follow the patient. Prognosis is guarded. Time with Patient: Less than 30
--- NOTE | 2024-09-16 12:07 | P.DS ---
Providers Date of admission: 09/13/24 10:10 Attending physician: Sharad Smiley Consults: 09/13/24 12:57 Consult Physician Routine Consulting Provider: Buzz Zimmerman Consult Reason/Comments: Complicated UTI, medical management Do you want consulting provider notified?: Yes 09/13/24 17:05 Consult Physician Urgent Consulting Provider: Jessica Palafox Consult Reason/Comments: CRITICAL CARE EVALUATION Do you want consulting provider notified?: Already Contacted Primary care physician: Buzz Zimmerman Hospital Course: patient was admitted 09/13 with a uti with sepsis and and obstructing stone.in the right ureter. Dr Smiley placed a stent . the urine grew enterococcus. He is ion appropriate ab. He is ready for d/c He will be given and rx for amoxicillin. He will fu in the office in 1 week. He will be set up for cysto with stent and stone removal from the right ureter in about two weeks The situation has been discussed with the patient and hs daughter. His condition is good. Patient Condition at Discharge: Good Plan - Discharge Summary Discharge Rx Participant: No New Discharge Prescriptions: New Amoxicillin 500 mg PO Q8H #30 capsule No Action Rivaroxaban [Xarelto] 20 mg PO HS Tamsulosin HCl [Flomax] 0.4 mg PO HS Fluticasone/Umeclidin/Vilanter [Trelegy Ellipta 200-62.5-25] 1 puff INHALATION RT-DAILY Ezetimibe [Zetia] 10 mg PO DAILY Metoprolol Tartrate [Lopressor] 75 mg PO BID #60 tab Ammonium Lactate Lotion [Lac-Hydrin 12% Lotion] 1 applic TOPICAL BID Pantoprazole [Protonix] 40 mg PO DAILY Albuterol Sulfate [Albuterol Sulfate Hfa] 1 puff INHALATION RT-Q4H PRN PRN Reason: Shortness Of Breath Fluticasone Nasal Prospect [Flonase Nasal Prospect] 1 spray EA NOSTRIL BID PRN PRN Reason: Allergy Symptoms Atorvastatin [Lipitor] 40 mg PO HS Levocetirizine Dihydrochloride [Xyzal] 5 mg PO HS Dapagliflozin Propanediol [Farxiga] 10 mg PO DAILY #30 tab Budesonide/Formoterol Fumarate [Breyna 160-4.5 Mcg Inhaler] 1 puff INHALATION RT-BID Venlafaxine HCl [Effexor XR] 37.5 mg PO HS Discharge Medication List Rivaroxaban [Xarelto] 20 mg PO HS 05/29/18 [History] Tamsulosin HCl [Flomax] 0.4 mg PO HS 05/29/18 [History] Albuterol Sulfate [Albuterol Sulfate Hfa] 1 puff INHALATION RT-Q4H PRN 10/07/21 [History] Fluticasone Nasal Prospect [Flonase Nasal Prospect] 1 spray EA NOSTRIL BID PRN 06/02/22 [History] Fluticasone/Umeclidin/Vilanter [Trelegy Ellipta 200-62.5-25] 1 puff INHALATION RT-DAILY 09/07/23 [History] Atorvastatin [Lipitor] 40 mg PO HS 10/16/23 [History] Ezetimibe [Zetia] 10 mg PO DAILY 10/16/23 [History] Levocetirizine Dihydrochloride [Xyzal] 5 mg PO HS 10/16/23 [History] Dapagliflozin Propanediol [Farxiga] 10 mg PO DAILY #30 tab 03/27/24 [Rx] Metoprolol Tartrate [Lopressor] 75 mg PO BID #60 tab 03/27/24 [Rx] Ammonium Lactate Lotion [Lac-Hydrin 12% Lotion] 1 applic TOPICAL BID 09/13/24 [H istory] Budesonide/Formoterol Fumarate [Breyna 160-4.5 Mcg Inhaler] 1 puff INHALATION RT-BID 09/13/24 [History] Pantoprazole [Protonix] 40 mg PO DAILY 09/13/24 [History] Venlafaxine HCl [Effexor XR] 37.5 mg PO HS 09/13/24 [History] Amoxicillin 500 mg PO Q8H #30 capsule 09/16/24 [Rx] Follow up Appointment(s)/Referral(s): [facility], [NON-STAFF] - Buzz Zimmerman MD [Primary Care Provider] - 1-2 days Dillon Arreaga MD [STAFF PHYSICIAN] - 1 Week Discharge Disposition: HOME SELF-CARE
--- NOTE | 2024-09-16 16:14 | P.PN ---
Subjective Progress Note Date: 09/16/24 HISTORY OF PRESENT ILLNESS This is a 83-year-old male with past medical history of hypertension, paroxysmal atrial fibrillation on Xarelto, benign prostatic hypertrophy, hiatal hernia, hereditary factor VIII deficiency, hyperlipidemia, mild intermittent asthma, possible COPD, patient was brought into the Emergency Department at [facility] today 3:00 in the morning because of severe right sided flank pain associated with intractable nausea and vomiting radiating to the groin area, he had a CT scan of the abdomen pelvis that showed evidence of 4.4 x 5.3 mm distal right ureteral stone with right hydronephrosis, patient also was found to have an evidence of UTI with SIRS without evidence of sepsis, he was started on IV antibiotic in the form of Rocephin, he was placed on pain medication, and he was seen in by urology admitted under urology service he is going for a cystoscopy with right ureteral stent placement to relieve the obstruction and urine culture was obtained still pending at time of dictation, I was asked to see the patient for medical management. 09/14: Patient sitting up in bed in no apparent distress, he underwent yesterday cystoscopy with J stent placement of the right ureter, urine culture was sent, he continues to be on IV antibiotic in the form of ceftriaxone, 2 g of piggyback every 24 hours, urine culture still pending, we will follow-up with the patient very closely continue IV fluid resuscitation in the form of normal saline 75 cc an hour, restart the patient back on Xarelto 20 mg once every day, I will follow-up with the patient during his hospital stay, hopefully if we get the results of the urine culture patient can be discharged home in the next 1 or 2 days. 09/15: Patient is laying down in bed in no apparent distress, he denies any chest pain, shortness of breath, he denies any abdominal pain, nausea vomiting or diarrhea, he has no pain in the right flank area, he has a new episode of hematuria we will continue to monitor the patient very closely, CBC and CMP were done, no significant drop in the hemoglobin, his urine culture is positive for group D Enterococcus, discontinue ceftriaxone start the patient on Unasyn 3 g piggyback every 8 hours monitor the patient very closely. 09/16: Patient sitting up in the chair does not appear to be in acute distress, he continues to have the pure wick in place, he continues to have a significant hematuria patient was discharged by urology we will keep the patient for another 24 hours, hold his Xarelto, increase his fluid intake, repeat CBC tomorrow morning, if his hematuria is better he can be discharged home tomorrow morning. REVIEW OF SYSTEMS Constitutional: No fever, no chills, no night sweats. No weight change. no weakness, no fatigue or lethargy. EENT: No headache. No blurred vision or double vision, no loss of vision. ashu y hard of Hearing, no ringing in the ears, no dizziness. No nasal drainage or congestion. No epistaxis. No sore throat. Lungs: No shortness of breath, no cough, dyspnea on exertion, no pleurisy no hemoptysis. Cardiovascular: No chest pain, no lower extremity edema. No palpitations. No paroxysmal nocturnal dyspnea. No orthopnea. No lightheadedness or dizziness. No syncopal episodes. Abdominal: No right flank abdominal pain. Negative for nausea, vomiting. No diarrhea. No constipation. No bloody or tarry stools. No loss of appetite. Genitourinary: No dysuria, increased frequency, urgency. No urinary retention, positive for hematuria Musculoskeletal: No myalgias. Reports no muscle weakness, no gait dysfunction, positive for frequent falls. No back pain. No neck pain. Integumentary: No wounds, no lesions. No rash or pruritus. No unusual bruising. No change in hair or nails. Neurologic: No aphasia. No facial droop. No change in mentation. No head injury. No headache. No paralysis. No paresthesia. Psychiatric: No depression. No anxiety. No mood swings. Endocrine: No abnormal blood sugars. No weight change. No excessive sweating or thirst. No cold intolerance. PHYSICAL EXAMINATION Gen: This is an obese 83-year-old male, resting in bed, appears to be fairly comfortable at rest. HEENT: Head is atraumatic, normocephalic. Pupils equal, round. Sclerae is anicteric. NECK: Supple. No JVD. No lymphadenopathy. No thyromegaly. LUNGS: decreased breath sound at bases, few rhonchi no expiratory wheezes no chest wall tenderness no intercostal retractions HEART: First heart sound is depressed, second heart sound is normal, 2/6 systolic ejection murmur at the left sternal border, irregular irregular due to atrial fibrillation. ABDOMEN: Soft. Bowel sounds are present. No masses. No tenderness. EXTREMITIES: +1 pedal edema. No calf tenderness. Pain in the left hip. Dorsalis pedis palpable bilaterally. NEUROLOGICAL: Patient is awake, alert and oriented x3. Cranial nerves 2 through 12 are grossly intact, muscle power 4/5 upper and lower extremities bilaterally ASSESSMENT AND PLAN 1. Right distal ureteral stone with right-sided hydronephrosis status post cystoscopy with J stent placement of the right ureter, patient has been on Unasyn 3 g of piggyback every 8 hours, he will be transition to Augmentin 875 mg orally twice every day for 7 days. 2. Gross hematuria likely related to recent instrumentation. Monitor the patient CBC, hold Xarelto tonight, repeat CBC CMP tomorrow morning. 3. Group D Enterococcus UTI without sepsis. patient was taken off ceftriaxone and he was started on Unasyn patient may be switched to oral Augmentin 875/125 mg orally twice every day for 7 days when the urine cultures are back. 4. chronic diastolic heart failure . Continue metoprolol 75 mg orally twice every day, monitor the patient's symptoms very closely continue Farxiga 10 mg orally once every day. Hep-Lock his IV. 5. COPD without exacerbation. Continue patient on albuterol every 4 hours as needed for shortness of breath, Symbicort 804 0.5 g 2 puffs twice daily. 6. Mild intermittent asthma. Continue Singulair 10 mg at bedtime, levocetirizine 5 mg once daily, albuterol nebulizer treatments every 4 hours as needed. 7. Paroxysmal atrial fibrillation. Continue Xarelto 20 mg once every day, continue Lopressor 75 mg twice daily. Continue Farxiga 10 mg orally once every day. 8. Benign prostatic hypertrophy. Continue Flomax 0.4 mg at bedtime, monitor for urinary retention. 9. Hereditary factor VIII deficiency. Continue Xarelto 20 mg once a day. 10. Hyperlipidemia. Continue Zetia 10 mg daily and Atorvastatin 40 mg once a day. Monitor the patient lipid panel, keep LDL 55-70 11. Hypertension and hypertensive cardiovascular disease. Continue Lopressor 7 5 mg twice daily. 12. GI prophylaxis. Protonix 40 mg po daily. 13. DVT prophylaxis. Restart the patient Xarelto 20 mg once every day. 14. Major depressive disorder. Continue patient on Effexor XR 37.5 mg orally once every day. 15. We will continue to follow with you. Objective - Vital Signs Vital signs: Vital Signs Temp 98.1 F 09/16/24 08:00 Pulse 68 09/16/24 15:34 Resp 16 09/16/24 14:00 BP 115/77 09/16/24 12:00 Pulse Ox 94 L 09/16/24 12:00 FiO2 Intake & Output 09/15/24 09/16/24 09/16/24 18:59 06:59 18:59 Intake Total 600 1150 Output Total 1300 1900 Balance -700 -1900 1150 Weight 112.4 kg Intake: Intake, IV Titration 650 Amount Ampicillin-Sulbactam 1.5 50 gm In Sodium Chloride 0.9 % 50 ml @ 100 mls/hr IVPB Q8HR [facility] Rx#:[id number] Sodium Chloride 0.9% 1, 600 000 ml @ 75 mls/hr IV . [id number] [facility] Rx#:[id number] Oral 600 500 Output: Urine 1300 1900 Other: Voiding Method External Catheter External Catheter # Voids 1 - Labs CBC & Chem 7: 09/16/24 07:26 09/16/24 07:26 Labs: Abnormal Lab Results - Last 24 Hours (Table) 09/16/24 09/16/24 Range/Units 07:26 07:26 WBC 12.2 H (3.8-10.6) k/uL MCHC 30.9 L (31.0-37.0) g/dL Neutrophils # 10.2 H (1.3-7.7) k/uL Chloride 108 H (98-107) mmol/L BUN 28 H (9-20) mg/dL Calcium 8.3 L (8.4-10.2) mg/dL Alkaline Phosphatase 130 H (38-126) U/L Total Protein 5.0 L (6.3-8.2) g/dL Albumin 3.0 L (3.5-5.0) g/dL Microbiology - Last 24 Hours (Table) 09/13/24 16:11 Urine Culture - Final Urine,Voided Enterococcus faecalis 09/14/24 00:00 Blood Culture - Preliminary Blood 09/13/24 08:30 Urine Culture - Final Urine,Voided Enterococcus faecalis
[2024-09-17 07:29] LABS: Basophils % (A) 0 %; Eosinophils # (A) 0.1 k/uL (0-0.7); Eosinophils % (A) 2 %; HCT 42.3 % (39.0-53.0); HGB 13.7 gm/dL (13.0-17.5); Hypochromasia Slight; Lymphocytes # (A) 1.1 k/uL (1.0-4.8); Lymphocytes % (A) 12 %; MCH 30.5 pg (25.0-35.0); MCHC 32.3 g/dL (31.0-37.0); MCV 94.5 fL (80.0-100.0); Mean Platelet Volume 7.6; Monocytes # (A) 0.7 k/uL (0-1.0); Monocytes % (A) 8 %; Neutrophils % (A) 77 %; Platelet Count 205 k/uL (150-450); RBC 4.48 m/uL (4.30-5.90); RDW 15.5 % (11.5-15.5); WBC 9.1 k/uL (3.8-10.6)
[2024-09-17 07:53] LABS: ALT 20 U/L (4-49); AST 25 U/L (17-59); African American GFR (CKD) 81 (>60 ml/min/1.73 sqM); Albumin 2.8 g/dL (3.5-5.0); Alkaline Phosphatase 130 U/L (38-126); Anion Gap 4 mmol/L; Blood Urea Nitrogen 22 mg/dL (9-20); Calcium 8.1 mg/dL (8.4-10.2); Carbon Dioxide 26 mmol/L (22-30); Chloride 109 mmol/L (98-107); Glucose 89 mg/dL (74-99); Non-African American GFR(CKD) 70 (>60 ml/min/1.73 sqM); Potassium 4.6 mmol/L (3.5-5.1); Sodium 139 mmol/L (137-145); Total Bilirubin 0.5 mg/dL (0.2-1.3); Total Protein 4.8 g/dL (6.3-8.2)
--- NOTE | 2024-09-17 10:55 | P.PN ---
Subjective Progress Note Date: 09/17/24 Principal diagnosis: Kidney stone, urinary tract infection. This is an 83-year-old white male admitted on 09/13/2024, patient was admitted with mostly symptoms of right hydronephrosis and right ureteral calculus. Underwent cystoscopy and right ureteral stent insertion. Postoperatively and while in the recovery room, patient was relatively hypotensive I was notified about the patient to evaluate and possibly admit to the ICU. I evaluated the patient in the recovery room, and during my evaluation he was felt to be stable enough to be transferred to 3 S. and not ICU. Patient had no shortness of breath, no chest pain, no cough, no wheezing, and he was definitely hemodyna mically stable during my evaluation. Patient is already on antibiotics for presumptive urosepsis, and pyelonephritis. Patient is being followed by primary care for his acute urosepsis.Urine came back positive for group D Enterococcus, hence antibiotics will likely need to be changed to Unasyn. The patient was transferred to 3 S. last night, he seems to be doing well, remains stable, not in any distress, reviewed the cultures from his urine, and change of ceftriaxone to Unasyn Patient was evaluated today on 09/15/2024, on room air, does not seem to be in any distress, patient is hemodynamically stable. Continues to have gross hematuria most likely related to instrumentation and underlying urinary tract infection. Patient is afebrile, hemodynamically stable. His urine cultures came back positive for group D Enterococcus presently on Unasyn which could be transitioned eventually to Augmentin. WBC 17.7 hemoglobin 13.2 basic metabolic profile is normal bicarb is 33 creatinine down to 1.15 Progress note dated September 16, 2024. 83-year-old male seen today in room 351. He is currently on room air. He is getting saline at 75 cc an hour. The patient seems to be doing relatively well. He is resting comfortably. No acute distress. Certainly no respiratory distress. Urine cultures came back positive for group D Enterococcus. Current laboratory data includes a white count 12.2, hemoglobin 13.8, hematocrit 44.5, and a platelet count of 208,000. Sodium 138, potassium 4.4, chlorides 108, CO2 27, BUN 28, and creatinine 1.08. Albumin is 3. Calcium is 8.3. The patient had a cystoscopy, with a right ureteral stent insertion. Progress note dated September 17, 2024. 83-year-old male seen today in room 351. The patient is currently on room air. He is getting saline at 75 cc an hour. The patient is resting comfortably, with no acute distress. He has no specific complaints today. Labs today include a white count of 9.1, down from 12.2, hemoglobin 13.7, hematocrit 42.3, and a normal platelet count. Sodium 139, potassium 4.6, chlorides 109, CO2 26, BUN 22, creatinine 1. Albumin is 2.8. Urine cultures are positive for Enterococcus faecalis. The patient remains on Unasyn. Objective - Vital Signs Vital signs: Vital Signs Temp 98.5 F 09/17/24 08:00 Pulse 78 09/17/24 09:06 Resp 20 09/17/24 08:00 BP 152/95 09/17/24 08:00 Pulse Ox 95 09/17/24 08:00 FiO2 Intake & Output 09/16/24 09/17/24 09/17/24 18:59 06:59 18:59 Intake Total 1300 Output Total 2 Balance 1300 -2 Weight 112.1 kg Intake: Intake, IV Titration 650 Amount Ampicillin-Sulbactam 1.5 50 gm In Sodium Chloride 0.9 % 50 ml @ 100 mls/hr IVPB Q8HR [facility] Rx#:[id number] Sodium Chloride 0.9% 1, 600 000 ml @ 75 mls/hr IV . [id number] [facility] Rx#:[id number] Oral 650 Output: Urine 2 Other: Voiding Method External Catheter Urinal Urinal Diaper Diaper # Voids 2 5 - Exam No acute distress, oriented 3. HEENT examination is grossly unremarkable. Mucous membranes are moist. No oral lesions. Neck supple. Full range of motion. No adenopathy thyromegaly or neck vein distention. Cardiovascular examination reveals regular rhythm rate. S1-S2 normal. No S3 or S4. No discernible murmur noted. Lungs reveal clear breath sounds. Breath sounds are equal bilaterally. No adventitious lung sounds including wheezes rhonchi or crackles. Abdomen soft bowel sounds are heard. No masses or tenderness. Extremities are intact. No cyanosis clubbing or edema. Skin is without rash or lesion. Neurologic examination is brief but nonfocal. - Labs CBC & Chem 7: 09/17/24 06:37 09/17/24 06:37 Labs: Abnormal Lab Results - Last 24 Hours (Table) 09/17/24 Range/Units 06:37 Chloride 109 H (98-107) mmol/L BUN 22 H (9-20) mg/dL Calcium 8.1 L (8.4-10.2) mg/dL Alkaline Phosphatase 130 H (38-126) U/L Total Protein 4.8 L (6.3-8.2) g/dL Albumin 2.8 L (3.5-5.0) g/dL Microbiology - Last 24 Hours (Table) 09/14/24 00:00 Blood Culture - Preliminary Blood 09/13/24 16:11 Urine Culture - Final Urine,Voided Enterococcus faecalis Assessment and Plan Assessment: Acute pyelonephritis, secondary to group D Enterococcus faecalis. Acute hydronephrosis, secondary to right ureteral calculus, S/P cystoscopy, and right ureteral stent. History of chronic diastolic CHF. History of COPD. History of paroxysmal atrial fibrillation. History of benign prostatic hypertrophy. History of hypertension. History of dyslipidemia. History of factor VIII deficiency. Plan: Plan dated September 16, 2024. The patient is seen today in room 351. The patient appears to be resting comfortably. He is on room air. He is getting saline at 75 cc an hour. The patient had a right ureteral stent placed. Urine sampling, shows evidence of Enterococcus faecalis. The patient continues on Unasyn. Labs, x-rays, and all medications are reviewed. We will continue to follow the patient. Prognosis is guarded. Plan dated September 17, 2024. The patient is seen today in room 351. He is on room air. He is getting saline at 75 cc an hour. The patient continues on Unasyn, for urine sampling which showed evidence of Enterococcus faecalis. Labs, x-rays, and all medications are reviewed. The patient is resting comfortably without any particular complaints. He is currently on room air. We will continue to follow as needed. Prognosis is guarded. Time with Patient: Less than 30
--- NOTE | 2024-09-17 14:09 | P.PN ---
Subjective Progress Note Date: 09/17/24 Patient is evaluated today in follow up and nursing still reports bloody urine with clots. His xarelto has been placed on hold, hemoglobin remains stable today at 13.7. Renal function slightly improved BUN of 22, creatinine 1.00 with oral hydration. Review of Systems Constitutional: Denied any fatigue denied any fever. Cardio vascular: denied any chest pain, palpitations Gastrointestinal: denied any nausea, vomiting, diarrhea Pulmonary: Denied any shortness of breath cough Neurologic denied any new focal deficits All inpatient medications were reviewed and appropriate changes in these medications as dictated in the interval history and assessment and plan. PHYSICAL EXAMINATION: GENERAL: The patient is alert and oriented x3, not in any acute distress. Well developed, well nourished. HEENT: Pupils are round and equally reacting to light. EOMI. No scleral icterus. No conjunctival pallor. Normocephalic, atraumatic. No pharyngeal erythema. No thyromegaly. CARDIOVASCULAR: S1 and S2 present. No murmurs, rubs, or gallops. PULMONARY: Chest is clear to auscultation, no wheezing or crackles. ABDOMEN: Soft, nontender, nondistended, normoactive bowel sounds. No palpable organomegaly. MUSCULOSKELETAL: No joint swelling or deformity. EXTREMITIES: No cyanosis, clubbing, or pedal edema. NEUROLOGICAL: Gross neurological examination did not reveal any focal deficits. SKIN: No rashes. Assessment and Plan 1. Right distal ureteral stone with right-sided hydronephrosis status post cystoscopy with J stent placement of the right ureter, patient has been on Unasyn 3 g of piggyback every 8 hours, he will be transition to Augmentin 875 mg orally twice every day for 7 days. 2. Gross hematuria likely related to recent instrumentation. Monitor the patient CBC, and continue to hold xarelto. repeat CBC CMP tomorrow morning. There is continued gross hematuria with clots. 3. Group D Enterococcus UTI without sepsis. patient was taken off ceftriaxone and he was started on Unasyn patient may be switched to oral Augmentin 875/125 mg orally twice every day for 7 days Urine culture is back and showing enteroccocus faecalis. 4. chronic diastolic heart failure . Continue metoprolol 75 mg orally twice every day, monitor the patient's symptoms very closely continue Farxiga 10 mg orally once every day. Hep-Lock his IV. 5. COPD without exacerbation. Continue patient on albuterol every 4 hours as needed for shortness of breath, Symbicort 804 0.5 g 2 puffs twice daily. 6. Mild intermittent asthma. Continue Singulair 10 mg at bedtime, levocetirizine 5 mg once daily, albuterol nebulizer treatments every 4 hours as needed. 7. Paroxysmal atrial fibrillation. Continue Xarelto 20 mg once every day, continue Lopressor 75 mg twice daily. Continue Farxiga 10 mg orally once every day. 8. Benign prostatic hypertrophy. Continue Flomax 0.4 mg at bedtime, monitor for urinary retention. 9. Hereditary factor VIII deficiency. Continue Xarelto 20 mg once a day. Currently on hold for gross hematura post ureter stent placement. 10. Hyperlipidemia. Continue Zetia 10 mg daily and Atorvastatin 40 mg once a day. Monitor the patient lipid panel, keep LDL 55-70 11. Hypertension and hypertensive cardiovascular disease. Continue Lopressor 75 mg twice daily. 12. GI prophylaxis. Protonix 40 mg po daily. 13. DVT prophylaxis. Restart the patient Xarelto 20 mg once every day. 14. Major depressive disorder. Continue patient on Effexor XR 37.5 mg orally once every day. 15. We will continue to follow with you. Continue to hold xarelto. Monitor for improvement in the hematura. Repeat CBC tomorrow. The impression and plan of care has been dictated by Kandace Bennett, Nurse Practitioner as directed. Dr. Tarun MD I have performed a history and physical examination and medical decision making of this patient, discussed the same with the dictator, and agree with the dictators assessment and plan as written, documented as a scribe. Based on total visit time, I have performed more than 50% of this visit. Objective - Vital Signs Vital signs: Vital Signs Temp 97.7 F 09/17/24 04:00 Pulse 78 09/17/24 09:06 Resp 20 09/17/24 04:00 BP 128/74 09/17/24 04:00 Pulse Ox 93 L 09/17/24 04:00 FiO2 Intake & Output 09/16/24 09/17/24 09/17/24 18:59 06:59 18:59 Intake Total 1300 Output Total 2 Balance 1300 -2 Weight 112.1 kg Intake: Intake, IV Titration 650 Amount Ampicillin-Sulbactam 1.5 50 gm In Sodium Chloride 0.9 % 50 ml @ 100 mls/hr IVPB Q8HR [facility] Rx#:[id number] Sodium Chloride 0.9% 1, 600 000 ml @ 75 mls/hr IV . [id number] [facility] Rx#:[id number] Oral 650 Output: Urine 2 Other: Voiding Method External Catheter Urinal Diaper # Voids 2 5 - Labs CBC & Chem 7: 09/17/24 06:37 09/17/24 06:37 Labs: Abnormal Lab Results - Last 24 Hours (Table) 09/17/24 Range/Units 06:37 Chloride 109 H (98-107) mmol/L BUN 22 H (9-20) mg/dL Calcium 8.1 L (8.4-10.2) mg/dL Alkaline Phosphatase 130 H (38-126) U/L Total Protein 4.8 L (6.3-8.2) g/dL Albumin 2.8 L (3.5-5.0) g/dL Microbiology - Last 24 Hours (Table) 09/14/24 00:00 Blood Culture - Preliminary Blood 09/13/24 16:11 Urine Culture - Final Urine,Voided Enterococcus faecalis Assessment and Plan Time with Patient: Less than 30
[2024-09-18 07:31] LABS: Basophils % (A) 0 %; Eosinophils # (A) 0.2 k/uL (0-0.7); Eosinophils % (A) 2 %; HCT 43.3 % (39.0-53.0); HGB 13.5 gm/dL (13.0-17.5); Hypochromasia Slight; Lymphocytes # (A) 1.2 k/uL (1.0-4.8); Lymphocytes % (A) 12 %; MCH 29.4 pg (25.0-35.0); MCHC 31.2 g/dL (31.0-37.0); MCV 94.2 fL (80.0-100.0); Mean Platelet Volume 7.6; Monocytes # (A) 0.7 k/uL (0-1.0); Monocytes % (A) 7 %; Neutrophils # (A) 8.1 k/uL (1.3-7.7); Neutrophils % (A) 78 %; Platelet Count 210 k/uL (150-450); RBC 4.59 m/uL (4.30-5.90); RDW 15.5 % (11.5-15.5); WBC 10.4 k/uL (3.8-10.6)
--- NOTE | 2024-09-18 11:00 | P.PN ---
Subjective Progress Note Date: 09/18/24 Principal diagnosis: Kidney stone, urinary tract infection. This is an 83-year-old white male admitted on 09/13/2024, patient was admitted with mostly symptoms of right hydronephrosis and right ureteral calculus. Underwent cystoscopy and right ureteral stent insertion. Postoperatively and while in the recovery room, patient was relatively hypotensive I was notified about the patient to evaluate and possibly admit to the ICU. I evaluated the patient in the recovery room, and during my evaluation he was felt to be stable enough to be transferred to 3 S. and not ICU. Patient had no shortness of breath, no chest pain, no cough, no wheezing, and he was definitely hemodyna mically stable during my evaluation. Patient is already on antibiotics for presumptive urosepsis, and pyelonephritis. Patient is being followed by primary care for his acute urosepsis.Urine came back positive for group D Enterococcus, hence antibiotics will likely need to be changed to Unasyn. The patient was transferred to 3 S. last night, he seems to be doing well, remains stable, not in any distress, reviewed the cultures from his urine, and change of ceftriaxone to Unasyn Patient was evaluated today on 09/15/2024, on room air, does not seem to be in any distress, patient is hemodynamically stable. Continues to have gross hematuria most likely related to instrumentation and underlying urinary tract infection. Patient is afebrile, hemodynamically stable. His urine cultures came back positive for group D Enterococcus presently on Unasyn which could be transitioned eventually to Augmentin. WBC 17.7 hemoglobin 13.2 basic metabolic profile is normal bicarb is 33 creatinine down to 1.15 Progress note dated September 16, 2024. 83-year-old male seen today in room 351. He is currently on room air. He is getting saline at 75 cc an hour. The patient seems to be doing relatively well. He is resting comfortably. No acute distress. Certainly no respiratory distress. Urine cultures came back positive for group D Enterococcus. Current laboratory data includes a white count 12.2, hemoglobin 13.8, hematocrit 44.5, and a platelet count of 208,000. Sodium 138, potassium 4.4, chlorides 108, CO2 27, BUN 28, and creatinine 1.08. Albumin is 3. Calcium is 8.3. The patient had a cystoscopy, with a right ureteral stent insertion. Progress note dated September 17, 2024. 83-year-old male seen today in room 351. The patient is currently on room air. He is getting saline at 75 cc an hour. The patient is resting comfortably, with no acute distress. He has no specific complaints today. Labs today include a white count of 9.1, down from 12.2, hemoglobin 13.7, hematocrit 42.3, and a normal platelet count. Sodium 139, potassium 4.6, chlorides 109, CO2 26, BUN 22, creatinine 1. Albumin is 2.8. Urine cultures are positive for Enterococcus faecalis. The patient remains on Unasyn. Progress note dated September 18, 2024. 83-year-old male seen in room 351. The patient continues on room air. The patient is receiving saline at 75 cc an hour. He continues on Unasyn. He has no specific complaints today. He is awake and alert. Current laboratory data includes a white count 10.4, hemoglobin 13.5, hematocrit 43.3, and a normal platelet count. Previous urine cultures were positive for Enterococcus faecalis. Objective - Vital Signs Vital signs: Vital Signs Temp 98.3 F 09/18/24 08:00 Pulse 86 09/18/24 08:22 Resp 16 09/18/24 08:00 BP 147/81 09/18/24 08:00 Pulse Ox 95 09/18/24 08:00 FiO2 Intake & Output 09/17/24 09/18/24 09/18/24 18:59 06:59 18:59 Intake Total 1320 180 Output Total 2 1225 Balance 1318 -1225 180 Weight 114 kg Intake: Oral 1320 180 Output: Urine 2 850 Post Void Residual 375 Other: Voiding Method Urinal Toilet Diaper Diaper # Voids 7 - Exam No acute distress, oriented 3. No respiratory distress. The patient is currently on room air. HEENT examination is grossly unremarkable. Mucous membranes are moist. No oral lesions. Neck supple. Full range of motion. No adenopathy thyromegaly or neck vein distention. Cardiovascular examination reveals regular rhythm rate. S1-S2 normal. No S3 or S4. No discernible murmur noted. Lungs reveal clear breath sounds. Breath sounds are equal bilaterally. No adventitious lung sounds including wheezes rhonchi or crackles. Abdomen soft bowel sounds are heard. No masses or tenderness. Extremities are intact. No cyanosis clubbing or edema. Skin is without rash or lesion. Neurologic examination is brief but nonfocal. - Labs CBC & Chem 7: 09/18/24 06:25 09/17/24 06:37 Labs: Abnormal Lab Results - Last 24 Hours (Table) 09/18/24 Range/Units 06:25 Neutrophils # 8.1 H (1.3-7.7) k/uL Assessment and Plan Assessment: Acute pyelonephritis, secondary to group D Enterococcus faecalis. Acute hydronephrosis, secondary to right ureteral calculus, S/P cystoscopy, and right ureteral stent. History of chronic diastolic CHF. History of COPD. History of paroxysmal atrial fibrillation. History of benign prostatic hypertrophy. History of hypertension. History of dyslipidemia. History of factor VIII deficiency. Plan: Plan dated September 16, 2024. The patient is seen today in room 351. The patient appears to be resting comfortably. He is on room air. He is getting saline at 75 cc an hour. The patient had a right ureteral stent placed. Urine sampling, shows evidence of Enterococcus faecalis. The patient continues on Unasyn. Labs, x-rays, and all medications are reviewed. We will continue to follow the patient. Prognosis is guarded. Plan dated September 17, 2024. The patient is seen today in room 351. He is on room air. He is getting saline at 75 cc an hour. The patient continues on Unasyn, for urine sampling which showed evidence of Enterococcus faecalis. Labs, x-rays, and all medications are reviewed. The patient is resting comfortably without any particular complaints. He is currently on room air. We will continue to follow as needed. Prognosis is guarded. Plan dated September 18, 2024. The patient is seen today in room 351. The patient continues on Unasyn. The patient is getting saline at 75 cc an hour. Urine sampling was positive for Enterococcus faecalis. We will continue to follow make recommendations along the way. Labs, x-rays, and all medications are reviewed. Prognosis is guarded. Time with Patient: Less than 30
[2024-09-18] MEDS: SENNOSIDES 8.6 MG TAB PO SCH (15:32)
[2024-09-18] MEDS: bisacodyL 10 MG SUPP RECTAL STA (15:32)
[2024-09-18] MEDS: polyethylene glycoL 3350 17 GM POWD.PACK PO SCH (15:32)
[2024-09-18] MEDS: RIVAROXABAN 20 MG TAB PO SCH (15:32)
--- NOTE | 2024-09-18 16:22 | P.PN ---
Subjective Progress Note Date: 09/18/24 HISTORY OF PRESENT ILLNESS This is a 83-year-old male with past medical history of hypertension, paroxysmal atrial fibrillation on Xarelto, benign prostatic hypertrophy, hiatal hernia, hereditary factor VIII deficiency, hyperlipidemia, mild intermittent asthma, possible COPD, patient was brought into [facility] Emergency Department at [facility] today 3:00 in the morning because of severe right sided flank pain associated with intractable nausea and vomiting radiating to the groin area, he had a CT scan of the abdomen pelvis that showed evidence of 4.4 x 5.3 mm distal right ureteral stone with right hydronephrosis, patient also was found to have an evidence of UTI with SIRS without evidence of sepsis, he was started on IV antibiotic in the form of Rocephin, he was placed on pain medication, and he was seen in by urology admitted under urology service he is going for a cystoscopy with right ureteral stent placement to relieve the obstruction and urine culture was obtained still pending at time of dictation, I was asked to see the patient for medical management. 09/14: Patient sitting up in bed in no apparent distress, he underwent yesterday cystoscopy with J stent placement of the right ureter, urine culture was sent, he continues to be on IV antibiotic in the form of ceftriaxone, 2 g of piggyback every 24 hours, urine culture still pending, we will follow-up with the patient very closely continue IV fluid resuscitation in the form of normal saline 75 cc an hour, restart the patient back on Xarelto 20 mg once every day, I will follow-up with the patient during his hospital stay, hopefully if we get the results of the urine culture patient can be discharged home in the next 1 or 2 days. 09/15: Patient is laying down in bed in no apparent distress, he denies any chest pain, shortness of breath, he denies any abdominal pain, nausea vomiting or diarrhea, he has no pain in the right flank area, he has a new episode of hematuria we will continue to monitor the patient very closely, CBC and CMP were done, no significant drop in the hemoglobin, his urine culture is positive for group D Enterococcus, discontinue ceftriaxone start the patient on Unasyn 3 g piggyback every 8 hours monitor the patient very closely. 09/16: Patient sitting up in the chair does not appear to be in acute distress, he continues to have the pure wick in place, he continues to have a significant hematuria patient was discharged by urology we will keep the patient for another 24 hours, hold his Xarelto, increase his fluid intake, repeat CBC tomorrow morning, if his hematuria is better he can be discharged home tomorrow morning. 09/17: Patient is sitting up in a chair he complains of increased abdominal distention, he has a Henry catheter in place, his urine is better less hematuria, we will restart his Xarelto 20 mg tonight, discontinue Henry catheter tomorrow morning, patient has not had a bowel movement in the last week or so patient will be given Dulcolax suppository 10 mg if that does not work we will give him a Fleet enema, added MiraLAX and lactulose along with a stool softener follow-up with the patient very closely repeat labs tomorrow morning. REVIEW OF SYSTEMS Constitutional: No fever, no chills, no night sweats. No weight change. no weakness, no fatigue or lethargy. EENT: No headache. No blurred vision or double vision, no loss of vision. very hard of Hearing, no ringing in the ears, no dizziness. No nasal drainage or congestion. No epistaxis. No sore throat. Lungs: No shortness of breath, no cough, dyspnea on exertion, no pleurisy no hemoptysis. Cardiovascular: No chest pain, no lower extremity edema. No palpitations. No paroxysmal nocturnal dyspnea. No orthopnea. No lightheadedness or dizziness. No syncopal episodes. Abdominal: No right flank abdominal pain. Negative for nausea, vomiting. No diarrhea. No constipation. No bloody or tarry stools. No loss of appetite. Genitourinary: No dysuria, increased frequency, urgency. No urinary retention, positive for hematuria Musculoskeletal: No myalgias. Reports no muscle weakness, no gait dysfunction, positive for frequent falls. No back pain. No neck pain. Integumentary: No wounds, no lesions. No rash or pruritus. No unusual bruising. No change in hair or nails. Neurologic: No aphasia. No facial droop. No change in mentation. No head injury. No headache. No paralysis. No paresthesia. Psychiatric: No depression. No anxiety. No mood swings. Endocrine: No abnormal blood sugars. No weight change. No excessive sweating or thirst. No cold intolerance. PHYSICAL EXAMINATION Gen: This is an obese 83-year-old male, resting in bed, appears to be fairly comfortable at rest. HEENT: Head is atraumatic, normocephalic. Pupils equal, round. Sclerae is anicteric. NECK: Supple. No JVD. No lymphadenopathy. No thyromegaly. LUNGS: decreased breath sound at bases, few rhonchi no expiratory wheezes no chest wall tenderness no intercostal retractions HEART: First heart sound is depressed, second heart sound is normal, 2/6 systolic ejection murmur at the left sternal border, irregular irregular due to atrial fibrillation. ABDOMEN: Soft. Bowel sounds are present. No masses. No tenderness. EXTREMITIES: +1 pedal edema. No calf tenderness. Pain in the left hip. Dorsalis pedis palpable bilaterally. NEUROLOGICAL: Patient is awake, alert and oriented x3. Cranial nerves 2 through 12 are grossly intact, muscle power 4/5 upper and lower extremities bilaterally ASSESSMENT AND PLAN 1. Right distal ureteral stone with right-sided hydronephrosis status post cystoscopy with J stent placement of the right ureter, patient has been on Unasyn 3 g of piggyback every 8 hours, he will be transition to Augmentin 875 mg orally twice every day for 7 days. 2. Gross hematuria likely related to recent instrumentation. Has been off his Xarelto for the past 48 hours. Monitor the patient CBC, hold Xarelto tonight, repeat CBC CMP tomorrow morning. 3. Group D Enterococcus UTI without sepsis. patient was taken off ceftriaxone and he was started on Unasyn patient may be switched to oral Augmentin 875/125 mg orally twice every day for 7 days when the urine cultures are back. 4. chronic diastolic heart failure . Continue metoprolol 75 mg orally twice every day, monitor the patient's symptoms very closely continue Farxiga 10 mg orally once every day. Hep-Lock his IV. 5. COPD without exacerbation. Continue patient on albuterol every 4 hours as n eeded for shortness of breath, Symbicort 804 0.5 g 2 puffs twice daily. 6. Mild intermittent asthma. Continue Singulair 10 mg at bedtime, levocetirizine 5 mg once daily, albuterol nebulizer treatments every 4 hours as needed. 7. Paroxysmal atrial fibrillation. Continue Xarelto 20 mg once every day, continue Lopressor 75 mg twice daily. Continue Farxiga 10 mg orally once every day. 8. Benign prostatic hypertrophy. Continue Flomax 0.4 mg at bedtime, monitor for urinary retention. 9. Hereditary factor VIII deficiency. Continue Xarelto 20 mg once a day. 10. Hyperlipidemia. Continue Zetia 10 mg daily and Atorvastatin 40 mg once a day. Monitor the patient lipid panel, keep LDL 55-70 11. Hypertension and hypertensive cardiovascular disease. Continue Lopressor 75 mg twice daily. 12. GI prophylaxis. Protonix 40 mg po daily. 13. DVT prophylaxis. Restart the patient Xarelto 20 mg once every day. 14. Major depressive disorder. Continue patient on Effexor XR 37.5 mg orally once every day. 15. severe Constipation start the patient on Dulcolax suppository 10 mg follo wed by Fleet enema if no response continue with lactulose 20 g orally twice every day and stool softener. 16. Discontinue Henry catheter tomorrow morning. 17. Home tomorrow morning. Objective - Vital Signs Vital signs: Vital Signs Temp 98.3 F 09/18/24 12:00 Pulse 95 09/18/24 12:00 Resp 16 09/18/24 12:00 BP 142/87 09/18/24 12:00 Pulse Ox 95 09/18/24 12:00 FiO2 Intake & Output 09/17/24 09/18/24 09/18/24 18:59 06:59 18:59 Intake Total 1320 360 Output Total 2 1225 900 Balance 1318 -1225 -540 Weight 114 kg Intake: Oral 1320 360 Output: Urine 2 850 900 Post Void Residual 375 Other: Voiding Method Urinal Toilet Toilet Diaper Diaper Diaper # Voids 7 - Labs CBC & Chem 7: 09/18/24 06:25 09/17/24 06:37 Labs: Abnormal Lab Results - Last 24 Hours (Table) 09/18/24 Range/Units 06:25 Neutrophils # 8.1 H (1.3-7.7) k/uL
[2024-09-18] MEDS: NA PHOS,M-B/NA PHOS,DI-BA 133 ML ENEMA RECTAL ONE (18:03)
[2024-09-18] MEDS: LACTULOSE 20 GM/30 ML CUP PO SCH (20:26)
[2024-09-19 06:12] LABS: Basophils % (A) 0 %; Eosinophils # (A) 0.2 k/uL (0-0.7); Eosinophils % (A) 2 %; HCT 41.5 % (39.0-53.0); HGB 13.5 gm/dL (13.0-17.5); Lymphocytes # (A) 1.1 k/uL (1.0-4.8); Lymphocytes % (A) 10 %; MCH 30.3 pg (25.0-35.0); MCHC 32.5 g/dL (31.0-37.0); MCV 93.2 fL (80.0-100.0); Mean Platelet Volume 7.3; Monocytes # (A) 0.9 k/uL (0-1.0); Monocytes % (A) 8 %; Neutrophils # (A) 8.5 k/uL (1.3-7.7); Neutrophils % (A) 78 %; Platelet Count 191 k/uL (150-450); RBC 4.46 m/uL (4.30-5.90); RDW 15.5 % (11.5-15.5); WBC 10.9 k/uL (3.8-10.6)
[2024-09-19 06:28] LABS: ALT 17 U/L (4-49); AST 20 U/L (17-59); African American GFR (CKD) 89 (>60 ml/min/1.73 sqM); Albumin 2.8 g/dL (3.5-5.0); Alkaline Phosphatase 131 U/L (38-126); Anion Gap 4 mmol/L; Blood Urea Nitrogen 15 mg/dL (9-20); Calcium 8.4 mg/dL (8.4-10.2); Carbon Dioxide 26 mmol/L (22-30); Chloride 107 mmol/L (98-107); Glucose 90 mg/dL (74-99); Non-African American GFR(CKD) 77 (>60 ml/min/1.73 sqM); Potassium 4.4 mmol/L (3.5-5.1); Sodium 137 mmol/L (137-145); Total Protein 4.8 g/dL (6.3-8.2)
[2024-09-19 12:11] VITALS: BP 118/78; PULSE 89; RESP 18; TEMP 98.5
--- NOTE | 2024-09-19 12:52 | P.DS ---
Providers Date of admission: 09/16/24 09:58 Expected date of discharge: 09/19/24 Attending physician: Sharad Smiley Consults: 09/13/24 12:57 Consult Physician Routine Consulting Provider: Buzz Zimmerman Consult Reason/Comments: Complicated UTI, medical management Do you want consulting provider notified?: Yes 09/13/24 17:05 Consult Physician Urgent Consulting Provider: Jessica Palafox Consult Reason/Comments: CRITICAL CARE EVALUATION Do you want consulting provider notified?: Already Contacted Primary care physician: Buzz Zimmerman [facility] Course: HISTORY OF PRESENT ILLNESS This is a 83-year-old male with past medical history of hypertension, paroxysmal atrial fibrillation on Xarelto, benign prostatic hypertrophy, hiatal hernia, hereditary factor VIII deficiency, hyperlipidemia, mild intermittent asthma, possible COPD, patient was brought into the Emergency Department at [facility] today 3:00 in the morning because of severe right sided flank pain associated with intractable nausea and vomiting radiating to the groin area, he had a CT scan of the abdomen pelvis that showed evidence of 4.4 x 5.3 mm distal right ureteral stone with right hydronephrosis, patient also was found to have an evidence of UTI with SIRS without evidence of sepsis, he was started on IV antibiotic in the form of Rocephin, he was placed on pain medication, and he was seen in by urology admitted under urology service he is going for a cystoscopy with right ureteral stent placement to relieve the obstruction and urine culture was obtained still pending at time of dictation, I was asked to see the patient for medical management. 09/14: Patient sitting up in bed in no apparent distress, he underwent yesterday cystoscopy with J stent placement of the right ureter, urine culture was sent, he continues to be on IV antibiotic in the form of ceftriaxone, 2 g of piggyback every 24 hours, urine culture still pending, we will follow-up with the patient very closely continue IV fluid resuscitation in the form of normal saline 75 cc an hour, restart the patient back on Xarelto 20 mg once every day, I will follow-up with the patient during his hospital stay, hopefully if we get the results of the urine culture patient can be discharged home in the next 1 or 2 days. 09/15: Patient is laying down in bed in no apparent distress, he denies any chest pain, shortness of breath, he denies any abdominal pain, nausea vomiting or diarrhea, he has no pain in the right flank area, he has a new episode of hematuria we will continue to monitor the patient very closely, CBC and CMP were done, no significant drop in the hemoglobin, his urine culture is positive for group D Enterococcus, discontinue ceftriaxone start the patient on Unasyn 3 g piggyback every 8 hours monitor the patient very closely. 09/16: Patient sitting up in the chair does not appear to be in acute distress, he continues to have the pure wick in place, he continues to have a significant hematuria patient was discharged by urology we will keep the patient for another 24 hours, hold his Xarelto, increase his fluid intake, repeat CBC tomorrow morning, if his hematuria is better he can be discharged home tomorrow morning. 09/18: Patient is sitting up in a chair he complains of increased abdominal distention, he has a Henry catheter in place, his urine is better less hematuria, we will restart his Xarelto 20 mg tonight, discontinue Henry catheter tomorrow morning, patient has not had a bowel movement in the last week or so patient will be given Dulcolax suppository 10 mg if that does not work we will give him a Fleet enema, added MiraLAX and lactulose along with a stool softener follow-up with the patient very closely repeat labs tomorrow morning. 09/19: Patient is sitting up in the recliner chair no apparent distress, he had a bowel movement yesterday, he denies any chest pain, shortness of breath, his Henry catheter was removed, he was seen earlier by urology, he was cleared to be discharged home today, he will be discharged home and follow-up with me as an outpatient next week, he is to follow-up with pulmonary as well as cardiology in the next week or as well along with urology. Discharge diagnoses: 1. Right distal ureteral stone with right-sided hydronephrosis status post cystoscopy with J stent placement of the right ureter 2. Gross hematuria likely related to recent instrumentation. 3. Group D Enterococcus UTI without sepsis. 4. chronic diastolic heart failure 5. COPD without exacerbation. 6. Mild intermittent asthma. 7. Paroxysmal atrial fibrillation. 8. Benign prostatic hypertrophy. 9. Hereditary factor VIII deficiency. 10. Hyperlipidemia. 11. Hypertension and hypertensive cardiovascular disease. 12. Major depressive disorder. Continue patient on Effexor XR 37.5 mg orally once every day. 13. severe Constipation Patient Condition at Discharge: Stable Plan - Discharge Summary Discharge Rx Participant: No New Discharge Prescriptions: New Amoxicillin 500 mg PO Q8H #30 capsule No Action Rivaroxaban [Xarelto] 20 mg PO HS Tamsulosin HCl [Flomax] 0.4 mg PO HS Fluticasone/Umeclidin/Vilanter [Trelegy Ellipta 200-62.5-25] 1 puff INHALATION RT-DAILY Ezetimibe [Zetia] 10 mg PO DAILY Metoprolol Tartrate [Lopressor] 75 mg PO BID #60 tab Ammonium Lactate Lotion [Lac-Hydrin 12% Lotion] 1 applic TOPICAL BID Pantoprazole [Protonix] 40 mg PO DAILY Albuterol Sulfate [Albuterol Sulfate Hfa] 1 puff INHALATION RT-Q4H PRN PRN Reason: Shortness Of Breath Fluticasone Nasal [place] [Flonase Nasal [place]] 1 spray EA NOSTRIL BID PRN PRN Reason: Allergy Symptoms Atorvastatin [Lipitor] 40 mg PO HS Levocetirizine Dihydrochloride [Xyzal] 5 mg PO HS Dapagliflozin Propanediol [Farxiga] 10 mg PO DAILY #30 tab Budesonide/Formoterol Fumarate [Breyna 160-4.5 Mcg Inhaler] 1 puff INHALATION RT-BID Venlafaxine HCl [Effexor XR] 37.5 mg PO HS Discharge Medication List Rivaroxaban [Xarelto] 20 mg PO HS 05/29/18 [History] Tamsulosin HCl [Flomax] 0.4 mg PO HS 05/29/18 [History] Albuterol Sulfate [Albuterol Sulfate Hfa] 1 puff INHALATION RT-Q4H PRN 10/07/21 [History] Fluticasone Nasal [place] [Flonase Nasal [place]] 1 spray EA NOSTRIL BID PRN 06/02/22 [History] Fluticasone/Umeclidin/Vilanter [Trelegy Ellipta 200-62.5-25] 1 puff INHALATION RT-DAILY 09/07/23 [History] Atorvastatin [Lipitor] 40 mg PO HS 10/16/23 [History] Ezetimibe [Zetia] 10 mg PO DAILY 10/16/23 [History] Levocetirizine Dihydrochloride [Xyzal] 5 mg PO HS 10/16/23 [History] Dapagliflozin Propanediol [Farxiga] 10 mg PO DAILY #30 tab 03/27/24 [Rx] Metoprolol Tartrate [Lopressor] 75 mg PO BID #60 tab 03/27/24 [Rx] Ammonium Lactate Lotion [Lac-Hydrin 12% Lotion] 1 applic TOPICAL BID 09/13/24 [History] Budesonide/Formoterol Fumarate [Breyna 160-4.5 Mcg Inhaler] 1 puff INHALATION RT-BID 09/13/24 [History] Pantoprazole [Protonix] 40 mg PO DAILY 09/13/24 [History] Venlafaxine HCl [Effexor XR] 37.5 mg PO HS 09/13/24 [History] Amoxicillin 500 mg PO Q8H #30 capsule 09/16/24 [Rx] Follow up Appointment(s)/Referral(s): [facility], [NON-STAFF] - Buzz Zimmerman MD [Primary Care Provider] - 1-2 days Dillon Arreaga MD [STAFF PHYSICIAN] - 1 Week
--- NOTE | 2024-09-19 12:57 | P.PN ---
Subjective Progress Note Date: 09/19/24 Principal diagnosis: Kidney stone, urinary tract infection. This is an 83-year-old white male admitted on 09/13/2024, patient was admitted with mostly symptoms of right hydronephrosis and right ureteral calculus. Underwent cystoscopy and right ureteral stent insertion. Postoperatively and while in the recovery room, patient was relatively hypotensive I was notified about the patient to evaluate and possibly admit to the ICU. I evaluated the patient in the recovery room, and during my evaluation he was felt to be stable enough to be transferred to 3 S. and not ICU. Patient had no shortness of breath, no chest pain, no cough, no wheezing, and he was definitely hemodyna mically stable during my evaluation. Patient is already on antibiotics for presumptive urosepsis, and pyelonephritis. Patient is being followed by primary care for his acute urosepsis.Urine came back positive for group D Enterococcus, hence antibiotics will likely need to be changed to Unasyn. The patient was transferred to 3 S. last night, he seems to be doing well, remains stable, not in any distress, reviewed the cultures from his urine, and change of ceftriaxone to Unasyn Patient was evaluated today on 09/15/2024, on room air, does not seem to be in any distress, patient is hemodynamically stable. Continues to have gross hematuria most likely related to instrumentation and underlying urinary tract infection. Patient is afebrile, hemodynamically stable. His urine cultures came back positive for group D Enterococcus presently on Unasyn which could be transitioned eventually to Augmentin. WBC 17.7 hemoglobin 13.2 basic metabolic profile is normal bicarb is 33 creatinine down to 1.15 Progress note dated September 16, 2024. 83-year-old male seen today in room 351. He is currently on room air. He is getting saline at 75 cc an hour. The patient seems to be doing relatively well. He is resting comfortably. No acute distress. Certainly no respiratory distress. Urine cultures came back positive for group D Enterococcus. Current laboratory data includes a white count 12.2, hemoglobin 13.8, hematocrit 44.5, and a platelet count of 208,000. Sodium 138, potassium 4.4, chlorides 108, CO2 27, BUN 28, and creatinine 1.08. Albumin is 3. Calcium is 8.3. The patient had a cystoscopy, with a right ureteral stent insertion. Progress note dated September 17, 2024. 83-year-old male seen today in room 351. The patient is currently on room air. He is getting saline at 75 cc an hour. The patient is resting comfortably, with no acute distress. He has no specific complaints today. Labs today include a white count of 9.1, down from 12.2, hemoglobin 13.7, hematocrit 42.3, and a normal platelet count. Sodium 139, potassium 4.6, chlorides 109, CO2 26, BUN 22, creatinine 1. Albumin is 2.8. Urine cultures are positive for Enterococcus faecalis. The patient remains on Unasyn. Progress note dated September 18, 2024. 83-year-old male seen in room 351. The patient continues on room air. The patient is receiving saline at 75 cc an hour. He continues on Unasyn. He has no specific complaints today. He is awake and alert. Current laboratory data includes a white count 10.4, hemoglobin 13.5, hematocrit 43.3, and a normal platelet count. Previous urine cultures were positive for Enterococcus faecalis. Progress note dated September 19, 2024. 83-year-old male seen in room 351. The patient is doing about the same. No specific complaints. He is on room air. Is not receiving any IV fluids. He is currently on Unasyn for Enterococcus faecalis infection. White count is 10.9, hemoglobin 13.5, hematocrit 41.5, platelet count 191,000. Sodium 137, potassium 4.4, chlorides 107, CO2 26, BUN 15, creatinine 0.93. Albumin is 2.8. Objective - Vital Signs Vital signs: Vital Signs Temp 98.5 F 09/19/24 12:00 Pulse 89 09/19/24 12:00 Resp 18 09/19/24 12:00 BP 118/78 09/19/24 12:00 Pulse Ox 95 09/19/24 12:00 FiO2 Intake & Output 09/18/24 09/19/24 09/19/24 18:59 06:59 18:59 Intake Total 540 118 Output Total 1700 2300 Balance -1160 -2300 118 Weight 110.2 kg Intake: Oral 540 118 Output: Urine 1700 2300 Other: Voiding Method Toilet Toilet Toilet Diaper Diaper Diaper # Bowel Movements 1 - Exam No acute distress, oriented 3. No respiratory distress. The patient is currently on room air. HEENT examination is grossly unremarkable. Mucous membranes are moist. No oral lesions. Neck supple. Full range of motion. No adenopathy thyromegaly or neck vein distention. Cardiovascular examination reveals regular rhythm rate. S1-S2 normal. No S3 or S4. No discernible murmur noted. Lungs reveal clear breath sounds. Breath sounds are equal bilaterally. No adventitious lung sounds including wheezes rhonchi or crackles. Abdomen soft bowel sounds are heard. No masses or tenderness. Extremities are intact. No cyanosis clubbing or edema. Skin is without rash or lesion. Neurologic examination is brief but nonfocal. - Labs CBC & Chem 7: 09/19/24 05:34 09/19/24 05:34 Labs: Abnormal Lab Results - Last 24 Hours (Table) 09/19/24 09/19/24 Range/Units 05:34 05:34 WBC 10.9 H (3.8-10.6) k/uL Neutrophils # 8.5 H (1.3-7.7) k/uL Alkaline Phosphatase 131 H (38-126) U/L Total Protein 4.8 L (6.3-8.2) g/dL Albumin 2.8 L (3.5-5.0) g/dL Microbiology - Last 24 Hours (Table) 09/14/24 00:00 Blood Culture - Final Blood Assessment and Plan Assessment: Acute pyelonephritis, secondary to group D Enterococcus faecalis. Acute hydronephrosis, secondary to right ureteral calculus, S/P cystoscopy, and right ureteral stent. History of chronic diastolic CHF. History of COPD. History of paroxysmal atrial fibrillation. History of benign prostatic hypertrophy. History of hypertension. History of dyslipidemia. History of factor VIII deficiency. Plan: Plan dated September 16, 2024. The patient is seen today in room 351. The patient appears to be resting comfortably. He is on room air. He is getting saline at 75 cc an hour. The patient had a right ureteral stent placed. Urine sampling, shows evidence of Enterococcus faecalis. The patient continues on Unasyn. Labs, x-rays, and all medications are reviewed. We will continue to follow the patient. Prognosis is guarded. Plan dated September 17, 2024. The patient is seen today in room 351. He is on room air. He is getting saline at 75 cc an hour. The patient continues on Unasyn, for urine sampling which showed evidence of Enterococcus faecalis. Labs, x-rays, and all medications are reviewed. The patient is resting comfortably without any particular complaints. He is currently on room air. We will continue to follow as needed. Prognosis is guarded. Plan dated September 18, 2024. The patient is seen today in room 351. The patient continues on Unasyn. The patient is getting saline at 75 cc an hour. Urine sampling was positive for Enterococcus faecalis. We will continue to follow make recommendations along the way. Labs, x-rays, and all medications are reviewed. Prognosis is guarded. Plan dated September 19, 2024. The patient is seen again in room 351. He is resting comfortably. He is on room air. No IV fluids. The patient continues on Unasyn. Labs, x-rays, and all medications are reviewed. No additional recommendations are made at this time. Prognosis is guarded. We will continue to follow. Time with Patient: Less than 30
--- NOTE | 2024-09-19 18:33 | P.PN ---
Subjective Progress Note Date: 09/19/24 No acute overnight event, denies any flank pain gross hematuria or dysuria. Objective - Vital Signs Vital signs: Vital Signs Temp 98.5 F 09/19/24 12:00 Pulse 89 09/19/24 12:00 Resp 18 09/19/24 12:00 BP 118/78 09/19/24 12:00 Pulse Ox 95 09/19/24 12:00 FiO2 Intake & Output 09/18/24 09/19/24 09/19/24 18:59 06:59 18:59 Intake Total 540 118 Output Total 1700 2300 Balance -1160 -2300 118 Weight 110.2 kg Intake: Oral 540 118 Output: Urine 1700 2300 Other: Voiding Method Toilet Toilet Toilet Diaper Diaper Diaper # Bowel Movements 1 - Constitutional General appearance: Present: no acute distress - Psychiatric Psychiatric: Present: A&O x's 3 - Labs CBC & Chem 7: 09/19/24 05:34 09/19/24 05:34 Labs: Abnormal Lab Results - Last 24 Hours (Table) 09/19/24 09/19/24 Range/Units 05:34 05:34 WBC 10.9 H (3.8-10.6) k/uL Neutrophils # 8.5 H (1.3-7.7) k/uL Alkaline Phosphatase 131 H (38-126) U/L Total Protein 4.8 L (6.3-8.2) g/dL Albumin 2.8 L (3.5-5.0) g/dL Microbiology - Last 24 Hours (Table) 09/14/24 00:00 Blood Culture - Final Blood Assessment and Plan Assessment: 83-year-old male status post right-sided stent insertion for a 5 mm ureteral stone by Dr. Shelby. From urology standpoint he is stable for discharge, he will need to follow-up with Dr. Shelby as an outpatient as he will need to be set up for right-sided ureteroscopy with holmium laser to address his stone
== END 2024-09-19 15:07 | disposition home health service (06) | DRG 853 ==
LOC: EC 03:47 → 4SSUR 10:10 → 3SCARD 17:16 → OBSVTOIN 09-16 09:58
PROVIDERS: ADMIT Urology; ATTEND Urology
PROC: 0T968ZX Drainage of Right Ureter, Via Natural or Artificial Opening Endoscopic, Diagnostic (ICD-10-PCS; 2024-09-13)
PROC: 0T768DZ Dilation of Right Ureter with Intraluminal Device, Via Natural or Artificial Opening Endoscopic (ICD-10-PCS; principal; 2024-09-13 11:30)
DX: A41.81 Sepsis due to Enterococcus (principal); D66 Hereditary factor VIII deficiency; I50.32 Chronic diastolic (congestive) heart failure; N13.6 Pyonephrosis; I11.0 Hypertensive heart disease with heart failure; K59.00 Constipation, unspecified; E78.5 Hyperlipidemia, unspecified; F32.9 Major depressive disorder, single episode, unspecified; G89.29 Other chronic pain; I48.0 Paroxysmal atrial fibrillation; J45.20 Mild intermittent asthma, uncomplicated; R31.0 Gross hematuria; H91.93 Unspecified hearing loss, bilateral; J44.89 Other specified chronic obstructive pulmonary disease; K44.9 Diaphragmatic hernia without obstruction or gangrene; I95.9 Hypotension, unspecified; N40.0 Benign prostatic hyperplasia without lower urinary tract symptoms; Z79.01 Long term (current) use of anticoagulants; Z79.84 Long term (current) use of oral hypoglycemic drugs; Z79.899 Other long term (current) drug therapy; Z79.51 Long term (current) use of inhaled steroids; Z87.01 Personal history of pneumonia (recurrent); Z87.442 Personal history of urinary calculi; Z96.642 Presence of left artificial hip joint; Z96.653 Presence of artificial knee joint, bilateral; Z82.3 Family history of stroke
CPT/HCPCS: 36415; 74178; 80053; 81001; 83605; 83690; 85025; 86140; 87040; 87077; 87086; 87186; 94640; 96361; 96365; 96375; 99285

== ENCOUNTER 2024-10-09 07:03 | Day surgery (SDC) | payer MEDICARE ==
--- NOTE | 2024-10-08 14:45 | P.GSHP ---
History of Present Illness H&P Date: 10/08/24 83 yo male recently in hospital with uti and obstructing rt distal ureteral stone. Sherice Mcintosh saw the patient in consultation and placed a right double j catheter. The patient now comes stone and stent removal. - Constitutional Constitutional: Denies chills, Denies fever - EENT Eyes: denies blurred vision, denies pain Ears, nose, mouth and throat: Denies headache, Denies sore throat - Cardiovascular Cardiovascular: Denies chest pain, Denies shortness of breath - Respiratory Respiratory: Denies cough, Denies 7 - Gastrointestinal Gastrointestinal: Denies abdominal pain, Denies diarrhea, Denies nausea, Denies vomiting - Genitourinary (Female) Genitourinary: Denies dysuria, Denies hematuria - Genitourinary (Male) Genitourinary: Denies dysuria, Denies hematuria - Musculoskeletal Musculoskeletal: Denies myalgias - Integumentary Integumentary: Denies pruritus, Denies rash - Neurological Neurological: Denies numbness, Denies weakness - Psychiatric Psychiatric: Denies anxiety, Denies depression - Endocrine Endocrine: Denies fatigue, Denies weight change Past Medical History Past Medical History: Atrial Fibrillation, Asthma, Cancer, Deep Vein Thrombosis (DVT), GERD/Reflux, Hearing Disorder / Deafness, Hyperlipidemia, Hypertension, Osteoarthritis (OA), Pneumonia, Renal Disease Additional Past Medical History / Comment(s): Hx pneumonia yrs ago, RSV/ hospitalized x 2 weeks in ICU 2020, dvt R calf, , hx kidney stones, ELEM use of bilateral hearing aids. farxiga for heart. skin cancer removed. recent UTI/ kidney stones treated with abx and complete. hx Dermatitis to lower legs History of Any Multi-Drug Resistant Organisms: None Reported Past Surgical History: Hernia Repair, Joint Replacement Additional Past Surgical History / Comment(s): Bilateral knee replacements., total L hip arthroplasty, LIS and cardioversions. hiatal hernia Past Anesthesia/Blood Transfusion Reactions: No Reported Reaction Smoking Status: Former smoker, Light tobacco smoker - Past Family History Mother Family Medical History: No Reported History Father Additional Family Medical History / Comment(s): open heart Medications and Allergies Home Medications Medication Instructions Recorded Confirmed Type Rivaroxaban [Xarelto] 20 mg PO HS 05/29/18 10/07/24 History Tamsulosin HCl [Flomax] 0.4 mg PO HS 05/29/18 10/07/24 History Albuterol Sulfate [Albuterol 1 puff INHALATION RT-Q4H PRN 10/07/21 10/07/24 History Sulfate Hfa] Fluticasone Nasal [place] [Flonase 1 spray EA NOSTRIL BID PRN 06/02/22 10/07/24 History Nasal [place]] Fluticasone/Umeclidin/Vilanter 1 puff INHALATION RT-DAILY 09/07/23 10/07/24 History [Trelegy Ellipta 200-62.5-25] Atorvastatin [Lipitor] 40 mg PO HS 10/16/23 10/07/24 History Ezetimibe [Zetia] 10 mg PO DAILY 10/16/23 10/07/24 History Levocetirizine Dihydrochloride 5 mg PO HS 10/16/23 10/07/24 History [Xyzal] Dapagliflozin Propanediol [Farxiga] 10 mg PO DAILY #30 tab 03/27/24 10/07/24 Rx Metoprolol Tartrate [Lopressor] 75 mg PO BID #60 tab 03/27/24 10/07/24 Rx Ammonium Lactate Lotion 1 applic TOPICAL BID PRN 09/13/24 10/07/24 History [Lac-Hydrin 12% Lotion] Budesonide/Formoterol Fumarate 1 puff INHALATION RT-BID 09/13/24 10/07/24 History [Breyna 160-4.5 Mcg Inhaler] Pantoprazole [Protonix] 40 mg PO DAILY 09/13/24 10/07/24 History Venlafaxine HCl [Effexor XR] 37.5 mg PO HS 09/13/24 10/07/24 History Sennosides [Senokot] 8.6 mg PO DAILY 10/07/24 10/07/24 History Allergies Allergy/AdvReac Type Severity Reaction Status Date / Time rosuvastatin [From Crestor] AdvReac muscle Verified 10/07/24 12:50 soreness/cramps Surgical - Exam - General well developed, well nourished, no distress, obese - Eyes normal ocular movement, no icteric - ENT no hearing loss, no congestion - Neck no masses, trachea midline - Respiratory normal respiratory effort, clear to auscultation - Abdomen Abdomen: soft, non tender, no guarding, no rigid, no rebound - Integumentary no rash, no abnormal pigmentation - Neurologic no disoriented, no combative - Psychiatric oriented to time, oriented to person, oriented to place, speech is normal, memory intact Results - Imaging CT scan - abdomen: report reviewed, image reviewed CT scan - pelvis: report reviewed, image reviewed Assessment and Plan Assessment: Impression: right ureteral stone sp/ stent placement and antibiotics Plan: cysto with right ureteroscopy laser lithotripsy, stone and stent removal
[~2024-10-09 07:03] MED LIST changes: -ALPRAZolam 0.25 MG TAB PO PRN; -ALPRAZolam 0.5 MG TAB PO PRN; -AMIODARONE 100 MG TAB PO SCH; -ASPIRIN 325 MG TAB PO STA; -ASPIRIN 81 MG ONE; -HEPARIN SODIUM 1,000 UN/ML (10ML VL) IV ONE; -HEPARIN SODIUM 1,000 UN/ML (10ML VL) ONE; -HEPARIN SODIUM,PORCINE (1 ML) 2,500 UNIT in SODIUM CHLORIDE 0.9% 250 ML IRRIGATION PRN; -HEPARIN SODIUM,PORCINE 10,000 UNIT in SODIUM CHLORIDE 0.9% 1,000 ML IRRIGATION PRN; +HYDROmorphone 0.5 MG/0.5 ML SYRINGE IVP PRN; -IOPAMIDOL-370 100ML BTL INJ ONE; +LIDOCAINE 1% (10MG/ML) FOR IV START INTRADERMA PRN; -LIDOCAINE 1% INJ 10MG/ML (20 ML MDV) SQ ONE; -LOSARTAN 25 MG TAB PO STA; -LOSARTAN 50 MG TAB PO SCH; -METOPROLOL TARTRATE 25 MG TAB PO SCH; -METOPROLOL TARTRATE 25 MG TAB PO STA; -NITROGLYCERIN SL TABS 0.4 MG TAB SUBLINGUAL PRN; -RX INFO: IV CONTRAST WAS GIVEN 1 EACH MISC MISCELLANE PRN; -SODIUM CHLORIDE 0.9% 1,000 ML IV SCH; -SODIUM CHLORIDE 0.9% 1,000 ML in EMPTY BAG 1 BAG IV SCH; -TAMSULOSIN 0.4 MG CAP.ER.24H PO SCH; -VERAPAMIL 2.5 MG/ML 2 ML AMP ONE; -VERAPAMIL SYRINGE (5 MG/10 ML) INTRAARTER ONE; +droPERidol 5 MG/2 ML VIAL IVP ONE; -fentaNYL (PF) 50 MCG/1 ML VIAL IVP ONE; -fentaNYL (PF) 50 MCG/ML 2 ML AMP ONE
[2024-10-09 08:00] LABS: Glucose,Whole Blood 116 mg/dL (70-110)
[2024-10-09] MEDS: ONDANSETRON 4 MG/2 ML VIAL IVP ONE (08:02)
[2024-10-09] MEDS: DEXAMETHASONE SOD PHOSPHATE 4 MG/ML 1 ML VIAL IV ONE (08:03)
--- NOTE | 2024-10-09 08:11 | XR ---
EXAMINATION TYPE: XR KUB DATE OF EXAM: 10/09/2024 7:28 AM COMPARISON: 10/09/2024. CLINICAL INDICATION: Male, 83 years old with history of Right Ureteral Calculus N20.1; TECHNIQUE: One radiographic view of the abdomen was obtained. FINDINGS: The bowel gas pattern is nonspecific without dilated loops of small or large bowel. . Fecal material and gas are demonstrated throughout the colon and rectum. There is no evidence for organomegaly or pneumoperitoneum. The osseous structures are intact. Right ureteral stent with superior and inferior pigtails in appropriate position. Hip fixation hardware in satisfactory position. A calcific density projects near the distal right ure teral stent. IMPRESSION: Right ureteral stent in appropriate position. Calculus projects near the distal ureteral stent. Nonspecific bowel gas pattern without radiographic evidence for acute process. [facility], , 10/09/2024 8:09 AM
[2024-10-09] MEDS: LACTATED RINGERS 1,000 ML IV SCH (08:12)
[2024-10-09] MEDS: IV FLUID CONTINUATION 1,000 ML IV ONE (08:13)
[2024-10-09] MEDS ORDERED: LIDOCAINE 1% INJ 10MG/ML (20 ML MDV) ONE (08:27)
[2024-10-09] MEDS ORDERED: MIDAZOLAM 2 MG/2 ML VIAL ONE (08:27)
[2024-10-09] MEDS ORDERED: PROPOFOL 10 MG/ML 20 ML VIAL IV ONE (08:27)
[2024-10-09] MEDS: GENTAMICIN 130 MG in SODIUM CHLORIDE 0.9% 100 ML IVPB PRN (08:30)
[2024-10-09] MEDS: AMPICILLIN 2,000 MG in SODIUM CHLORIDE 0.9% 100 ML IVPB PRN (08:30)
--- NOTE | 2024-10-09 09:11 | P.OP ---
Date of Procedure: 10/09/24 Preoperative Diagnosis: right ureteral calculus with obstruction status post stent placement Postoperative Diagnosis: same Procedure(s) Performed: cystoscopy, right ureteroscopy with laser lithotripsy and stone basketing, removal double-J catheter right Anesthesia: SEGUNDO Surgeon: Dillon Arreaga Estimated Blood Loss (ml): 0 Pathology: other (stone) Condition: stable Disposition: PACU Indications for Procedure: patient is 83. A couple weeks back he had a urinary tract infection with sepsis and obstructing right ureteral stone. placed a right double-J catheter to relieve the obstruction he was treated with antibiotics. His infection has cleared. He now comes for removal stent stone Description of Procedure: The operative suite. Given a general anesthetic. Placed lithotomy position with a sterile prep and drape. Cystoscopy Foroblique lens and 21-[place] sheath identifies a normal anterior urethra. The prostatic urethra shows trilobar obstruction and friability. The bladder tanner trabeculated. The right double-J catheters identified and grasped and pulled to the urethral meatus. An 035 wires passed through the stent up into the right kidney.I remove the stent. I then passed the semirigid ureteroscope up into the bladder and then up the right ureteral orifice to the stone. With the 365 laser probe the stone was broken into tiny fragments the largest of which are stone basketed. At the end of the procedure there is no significant fragments remaining in the ureter. There is not enough edema to replace a stent. The stone fragments are drained out of the bladder. The bladder is drained. The wires removed. The patient is awakened and returned recovery room good condition. He tolerated procedure well and will be discharged home upon recovery. He'll follow-up in the office in one week. His condition is good.
[2024-10-09 09:14] VITALS: TEMP 97.3
--- NOTE | 2024-10-09 09:19 | FL ---
EXAMINATION TYPE: FL guidance operating room DATE OF EXAM: 10/09/2024 9:13 AM COMPARISON: Pre Operative Images if available both CT/MRI or plain film CLINICAL INDICATION: Male, 83 years old with history of RIGHT URETERAL STONE; TECHNIQUE: FL guidance operating room, multiple fluoroscopic images provided for procedure. Total fluoroscopy time: 3.2 seconds Total submitted images to PACS: 1 DAP: [id number] mGym2 Gycm2 uGym2 cGycm2 or equivalent. FINDINGS: Fluoroscopic images taken for renal stone. No evidence of pneumoperitoneum. Multilevel degeneration c hanges of the spine. IMPRESSION: 1. No evidence for intraoperative complication. 2. Please see the operative/procedural note for further details. [facility], , 10/09/2024 9:17 AM
[2024-10-09 10:58] VITALS: BP 113/72; PULSE 79; RESP 14
== END 2024-10-09 11:22 | disposition home or self-care (01) ==
LOC: OR 07:03
PROVIDERS: ATTEND Urology
DX: N20.1 Calculus of ureter (principal); I48.91 Unspecified atrial fibrillation; J45.909 Unspecified asthma, uncomplicated; E78.5 Hyperlipidemia, unspecified; I10 Essential (primary) hypertension; K21.9 Gastro-esophageal reflux disease without esophagitis; M19.90 Unspecified osteoarthritis, unspecified site; Z85.828 Personal history of other malignant neoplasm of skin; Z87.442 Personal history of urinary calculi; Z98.890 Other specified postprocedural states; Z96.653 Presence of artificial knee joint, bilateral; Z87.891 Personal history of nicotine dependence; Z86.718 Personal history of other venous thrombosis and embolism; Z79.84 Long term (current) use of oral hypoglycemic drugs
CPT/HCPCS: 82365; 74018; 52356; C1769; J2250; J1100; J2405; J2003; J1580; J0290; J2704

== ENCOUNTER → 2024-10-14 | Outpatient (CLI) | payer MEDICARE | LOC: LABWHC1 16:11 | PROVIDERS: ATTEND Internal Medicine | DX: Z53.9 Procedure and treatment not carried out, unspecified reason (principal) ==

== ENCOUNTER → 2024-10-14 | Outpatient (CLI) | payer MEDICARE ==
[2024-10-15 02:25] LABS: Basophils # (A) 0.04 X 10*3/uL (0.00-0.10); Basophils % (A) 0.5 %; Eosinophils # (A) 0.16 X 10*3/uL (0.04-0.35); HCT 42.5 % (39.6-50.0); HGB 13.7 g/dL (13.0-17.0); Lymphocytes # (A) 1.09 X 10*3/uL (0.90-5.00); Lymphocytes % (A) 13.8 %; MCH 30.4 pg (27.0-32.0); MCHC 32.2 g/dL (32.0-37.0); MCV 94.4 FL (80.0-97.0); Mean Platelet Volume 10.7 FL (9.5-12.2); Monocytes # (A) 0.96 X 10*3/uL (0.20-1.00); Monocytes % (A) 12.2 %; NRBC Per 100 WBC 0 X 10*3/uL (0.00-0.01); Neutrophils # (A) 5.55 X 10*3/uL (1.80-7.70); Neutrophils % (A) 70.2 %; Platelet Count 229 X 10*3/uL (140-440); RDW 16.4 % (11.5-14.5)
[2024-10-15 03:22] LABS: NT-Pro-B-Type Natriuretic Pept 1751 pg/mL (0-450)
[2024-10-15 03:41] LABS: ALT 15 U/L (10-49); AST 19 U/L (14-35); Albumin 3.9 g/dL (3.8-4.9); Albumin/Globulin Ratio 2.17 Ratio (1.60-3.17); Alkaline Phosphatase 131 U/L (41-126); BUN/Creat Ratio 16.83 Ratio (12.00-20.00); Blood Urea Nitrogen 20.2 mg/dL (9.0-27.0); Calcium 8.9 mg/dL (8.7-10.3); Carbon Dioxide 25.8 mmol/L (21.6-31.8); Chloride 107 mmol/L (96-109); Chol/HDL Ratio 1.84 Ratio; Creatine Kinase 41 U/L (35-257); Globulin 1.8 g/dL (1.6-3.3); Glucose 100 mg/dL (70-110); Potassium 4.7 mmol/L (3.5-5.5); Prostate Specific Antigen 2.46 ng/mL (0.000-6.500); Sodium 142 mmol/L (135-145); Total Bilirubin 0.6 mg/dL (0.3-1.2); Total Protein 5.7 g/dL (6.2-8.2); Uric Acid 4.8 mg/dL (3.7-8.7)
[2024-10-15 05:06] LABS: Appearance,Urine Clear (Clear); Bilirubin,Urine Negative (Negative); Blood,Urine Negative (Negative); Color,Urine Yellow (Yellow); Ketones,Urine Negative (Negative); Nitrite,Urine Negative (Negative); PH, Urine 5.5; Specific Gravity,Urine 1.027 (1.001-1.030)
== END | disposition home or self-care (01) ==
LOC: LABPAT 16:08
PROVIDERS: ATTEND Orthopaedic Surgery
DX: Z01.812 Encounter for preprocedural laboratory examination (principal); Z22.322 Carrier or suspected carrier of Methicillin resistant Staphylococcus aureus; M16.11 Unilateral primary osteoarthritis, right hip; E11.9 Type 2 diabetes mellitus without complications
CPT/HCPCS: 80053; 80061; 81003; 82306; 82550; 83036; 83735; 83880; 84153; 84550; 85025; 86850; 86900; 86901; 87070

== ENCOUNTER 2024-11-25 02:57 | Inpatient (IN) | payer MEDICARE ==
--- NOTE | 2024-11-25 03:34 | ED ---
General Adult HPI - General Chief complaint: Shortness of Breath Stated complaint: Difficulty breathing Time Seen by Provider: 11/25/24 03:04 Source: patient, EMS Mode of arrival: EMS Limitations: no limitations - History of Present Illness Initial comments: Dictation was produced using [employer] dictation software. please excuse any grammatical, word or spelling errors. Chief Complaint: 84-year-old male with dyspnea History of Present Illness: Patient is an 84-year-old male brought in from [facility] for dyspnea. Is found to be hypoxic after trying to go to the bathroom by himself. Patient states he exerted himself. States at the bedside he feels baseline. According EMS patient was 80% pulse oximetry. Patient has a chest pain. Denies any cough runny nose sore throat. The ROS documented in this emergency department record has been reviewed and confirmed by me. Those systems with pertinent positive or negative responses have been documented in the HPI. All other systems are other negative and/or noncontributory. - Related Data Home Medications Medication Instructions Recorded Confirmed Tamsulosin HCl [Flomax] 0.4 mg PO HS 05/29/18 10/25/24 Albuterol Sulfate [Albuterol 1 puff INHALATION RT-Q4H PRN 10/07/21 10/25/24 Sulfate Hfa] Fluticasone Nasal [place] [Flonase 1 spray EA NOSTRIL BID PRN 06/02/22 10/25/24 Nasal [place]] Fluticasone/Umeclidin/Vilanter 1 puff INHALATION RT-DAILY 09/07/23 10/25/24 [Velasquez Bruce 200-62.5-25] Atorvastatin [Lipitor] 40 mg PO HS 10/16/23 10/25/24 Ezetimibe [Zetia] 10 mg PO DAILY 10/16/23 10/25/24 Levocetirizine Dihydrochloride 5 mg PO HS 10/16/23 10/25/24 [Xyzal] Ammonium Lactate Lotion 1 applic TOPICAL BID PRN 09/13/24 10/25/24 [Lac-Hydrin 12% Lotion] Budesonide/Formoterol Fumarate 1 puff INHALATION RT-BID 09/13/24 10/25/24 [Breyna 160-4.5 Mcg Inhaler] Pantoprazole [Protonix] 40 mg PO DAILY 09/13/24 10/25/24 Venlafaxine HCl [Effexor XR] 37.5 mg PO HS 09/13/24 10/25/24 Cholecalciferol (Vitamin D3) 50 mcg PO DAILY 10/21/24 10/25/24 [Vitamin D3 (50 Mcg = 2000 Iu)] Previous Rx's Medication Instructions Recorded Dapagliflozin Propanediol [Farxiga] 10 mg PO DAILY #30 tab 03/27/24 Metoprolol Tartrate [Lopressor] 75 mg PO BID #60 tab 03/27/24 HYDROcodone/APAP 5-325MG [[place] 5] 1 - 2 each PO Q6HR PRN #48 tab 10/25/24 Omeprazole 20 mg PO DAILY #30 tab 10/25/24 Ondansetron [Zofran] 4 mg PO Q6HR PRN #30 tab 10/25/24 Sennosides-Docusate Sodium 1 tab PO BID PRN #60 tablet 10/25/24 [Senokot-S] Ipratropium-Albuterol Nebulize 3 ml INHALATION RT-QID each 10/30/24 [Duoneb 0.5 mg-3 mg/3 ml Soln] Lactulose [Cephulac] 20 gm PO BID ml 10/30/24 Rivaroxaban [Xarelto] 15 mg PO BID-W/MEALS tab 10/30/24 guaiFENesin SYRUP 100MG/5ML 200 mg PO Q6HR PRN ml 10/30/24 [Robitussin] polyethylene glycoL 3350 [Miralax] 17 gm PO DAILY packet 10/30/24 Allergies Allergy/AdvReac Type Severity Reaction Status Date / Time rosuvastatin [From Crestor] AdvReac muscle Verified 11/25/24 03:04 soreness/cramps Review of Systems ROS Statement: Those systems with pertinent positive or pertinent negative responses have been documented in the HPI. ROS Other: All systems not noted in ROS Statement are negative. Past Medical History Past Medical History: Atrial Fibrillation, Asthma, Cancer, Diabetes Mellitus, Deep Vein Thrombosis (DVT), GERD/Reflux, Hearing Disorder / Deafness, Hyperlipidemia, Hypertension, Osteoarthritis (OA), Pneumonia, Prostate Disorder Additional Past Medical History / Comment(s): Hx pneumonia yrs ago, RSV/ hospitalized x 2 weeks in ICU, dvt R calf, hiatal hernia, hx kidney stones, [place] use of bilateral hearing aids. skin ca; "pre diabetic". History of Any Multi-Drug Resistant Organisms: None Reported Past Surgical History: Joint Replacement, Orthopedic Surgery Additional Past Surgical History / Comment(s): Bilateral knee replacements., total L hip arthroplasty, LIS and cardioversions, elbow surg, cystoscopy & right ureter stent Aug 2024, stent removed Sep 2024. Right TAD. Past Anesthesia/Blood Transfusion Reactions: No Reported Reaction Past Psychological History: Depression Smoking Status: Never smoker Past Alcohol Use History: Rare Past Drug Use History: None Reported - Past Family History Mother Family Medical History: No Reported History Father Additional Family Medical History / Comment(s): open heart General Exam - General Exam Comments Initial Comments: PHYSICAL EXAM: General Impression: Alert and oriented x3, tachypneic HEENT: Normocephalic atraumatic, extra-ocular movements intact, pupils equal and reactive to light bilaterally, mucous membranes moist. Cardiovascular: Heart regular rate and rhythm Chest: Able to complete full sentences, no retractions, no tachypnea Abdomen: abdomen soft, non-tender, non-distended, no organomegaly Musculoskeletal: Pulses present and equal in all extremities, no peripheral edema Motor: no focal deficits noted Neurological: CN II-XII grossly intact, no focal motor or sensory deficits noted Skin: Intact with no visualized rashes Psych: Normal affect and mood Limitations: no limitations Course Vital Signs 11/25/24 11/25/24 03:00 03:16 Temperature 99.3 F Pulse Rate 94 108 H Respiratory 20 20 Rate Blood Pressure 124/88 102/77 O2 Sat by Pulse 97 97 Oximetry EKG Findings - EKG Comments: EKG Findings:: My EKG interpretation: Ventricular rate 20, A-fib, QRS 133, QTc 423. No IN prolongation, no QTC prolongation, no ST or T-wave changes noted. EKG compared to August 29, 2024 showing no changes. Overall, this EKG is unremarkable Medical Decision Making - Medical Decision Making Was pt. sent in by a medical professional or institution (, PA, ASSEMBLY LINE INSPECTOR, urgent care, hospital, or long-term...) When possible be specific @ -No Did you speak to anyone other than the patient for history (EMS, parent, family, police, friend...)? What history was obtained from this source @ -No Did you review nursing and triage notes (agree or disagree)? Why? @ -I reviewed and agree with nursing and triage notes Were old charts reviewed (outside hosp., previous admission, EMS record, old EKG, old radiological studies, urgent care reports/EKG's, long-term records)? Report findings @ -No old charts were reviewed Differential Diagnosis (chest pain, altered mental status, abdominal pain women, abdominal pain men, vaginal bleeding, musculoskeletal, weakness, fever, dyspnea, syncope, headache, dizziness, GI bleed, back pain, seizure, CVA, palpatations, mental health)? @ -Differential Dyspnea: Coronary syndrome, arrhythmia, tamponade, asthma, COPD, pulmonary embolism, pneumonia, pneumothorax, pulmonary effusion, anaphylaxis, diabetic ketoacidosis, flailed chest, pulmonary contusion, diaphragmatic rupture, anemia, neuromuscular, this is not meant to be an all-inclusive list. EKG interpreted by me (3pts min.). @ -See above X-rays interpreted by me (1pt min.). @ -Chest x-ray shows right lower lobe pneumonia CT interpreted by me (1pt min.). @ -None done U/S interpreted by me (1pt. min.). @ -None done What testing was considered but not performed or refused? (CT, X-rays, U/S, labs)? Why? @ -None What meds were considered but not given or refused? Why? @ -None Was smoking cessation discussed for >3mins.? @ -No Were there social determinants of health that impacted care today? How? (Home lessness, low income, unemployed, alcoholism, drug addiction, transportation, low edu. Level, literacy, decrease access to med. care, m[facility], rehab)? @ -No Was there de-escalation of care discussed even if they declined (Discuss DNR or withdrawal of care, Hospice)? DNR status @ -No What co-morbidities impacted this encounter? (DM, HTN, Smoking, COPD, CAD, Cancer, CVA, ARF, Chemo, Hep., AIDS, mental health diagnosis, sleep apnea, morbid obesity)? @ -CHF Was patient admitted / discharged? Hospital course, mention meds given and route, prescriptions, significant lab abnormalities, going to OR and other pertinent info. @ -84-year-old male presents emergency department for dyspnea and hypoxia. Vital signs upon arrival 97% on 15 L nonrebreather. Patient switched to nasal cannula. Laboratory evaluation obtained leukocytosis 17.0. No lactic acidosis. Elevated cardiac labs. X-ray shows pneumonia. Viral testing is negative. Patient started on antibiotics to treat commune acquired pneumonia. Case discussed with Dr. Zimmerman for admission Did you discuss the management of the patient with other professionals (professionals i.e. , PA, ASSEMBLY LINE INSPECTOR, lab, RT, psych nurse, social media content specialist, health information assistant, teacher, compliance officer, bilingual patient support caseworker)? Give summary @ -No Was critical care preformed (if so, how long)? @ -No Undiagnosed new problem with uncertain prognosis? @ -No Drug Therapy requiring intensive monitoring for toxicity (Heparin, Nitro, Insulin, Cardizem)? @ -No Were any procedures done? @ -No Diagnosis/symptom? Acute, or Chronic, or Acute on Chronic? Uncomplicated (without systemic symptoms) or Complicated (systemic symptoms)? @ -Acute pneumonia complicated by hypoxia Side effects of treatment? @ -No Exacerbation, Progression, or Severe Exacerbation? @ -No Poses a threat to life or bodily function? How? (Chest pain, USA, LA, pneumonia, PE, COPD, DKA, ARF, appy, cholecystitis, CVA, Diverticulitis, Homicidal, Suicidal, threat to staff... and all critical care pts) @ -yes - Lab Data Result diagrams: 11/25/24 03:26 11/25/24 03:26 Lab Results 11/25/24 11/25/24 11/25/24 Range/Units 03:10 03:26 03:26 WBC 17.0 H (3.8-10.6) k/uL RBC 4.70 (4.30-5.90) m/uL Hgb 13.6 (13.0-17.5) gm/dL Hct 42.0 (39.0-53.0) % MCV 89.4 (80.0-100.0) fL MCH 29.0 (25.0-35.0) pg MCHC 32.5 (31.0-37.0) g/dL RDW 14.7 (11.5-15.5) % Plt Count 299 (150-450) k/uL MPV 8.1 Neutrophils % 90 % Lymphocytes % 4 % Monocytes % 5 % Eosinophils % 1 % Basophils % 0 % Neutrophils # 15.2 H (1.3-7.7) k/uL Lymphocytes # 0.7 L (1.0-4.8) k/uL Monocytes # 0.8 (0-1.0) k/uL Eosinophils # 0.1 (0-0.7) k/uL Basophils # 0.0 (0-0.2) k/uL Hypochromasia Slight PT 13.8 H (10.0-12.5) sec INR 1.3 H (<1.2) APTT 27.4 (22.0-30.0) sec Sodium (137-145) mmol/L Potassium (3.5-5.1) mmol/L Chloride (98-107) mmol/L Carbon Dioxide (22-30) mmol/L Anion Gap mmol/L BUN (9-20) mg/dL Creatinine (0.66-1.25) mg/dL Est GFR (CKD-EPI)AfAm (>60 ml/min/1.73 sqM) Est GFR (CKD-EPI)NonAf (>60 ml/min/1.73 sqM) Glucose (74-99) mg/dL Plasma Lactic Acid Efren (0.7-2.0) mmol/L Calcium (8.4-10.2) mg/dL Magnesium (1.6-2.3) mg/dL Total Bilirubin (0.2-1.3) mg/dL AST (17-59) U/L ALT (4-49) U/L Alkaline Phosphatase (38-126) U/L Troponin I (0.000-0.034) ng/mL NT-Pro-B Natriuret Pep pg/mL Total Protein (6.3-8.2) g/dL Albumin (3.5-5.0) g/dL Influenza Type A (PCR) Not Detected (Not Detectd) Influenza Type B (PCR) Not Detected (Not Detectd) RSV (PCR) Not Detected (Not Detectd) SARS-CoV-2 (PCR) Not Detected (Not Detectd) 11/25/24 11/25/24 11/25/24 Range/Units 03:26 03:26 03:26 WBC (3.8-10.6) k/uL RBC (4.30-5.90) m/uL Hgb (13.0-17.5) gm/dL Hct (39.0-53.0) % MCV (80.0-100.0) fL MCH (25.0-35.0) pg MCHC (31.0-37.0) g/dL RDW (11.5-15.5) % Plt Count (150-450) k/uL MPV Neutrophils % % Lymphocytes % % Monocytes % % Eosinophils % % Basophils % % Neutrophils # (1.3-7.7) k/uL Lymphocytes # (1.0-4.8) k/uL Monocytes # (0-1.0) k/uL Eosinophils # (0-0.7) k/uL Basophils # (0-0.2) k/uL Hypochromasia PT (10.0-12.5) sec INR (<1.2) APTT (22.0-30.0) sec Sodium 136 L (137-145) mmol/L Potassium 4.6 (3.5-5.1) mmol/L Chloride 100 (98-107) mmol/L Carbon Dioxide 27 (22-30) mmol/L Anion Gap 9 mmol/L BUN 38 H (9-20) mg/dL Creatinine 1.49 H (0.66-1.25) mg/dL Est GFR (CKD-EPI)AfAm 50 (>60 ml/min/1.73 sqM) Est GFR (CKD-EPI)NonAf 43 (>60 ml/min/1.73 sqM) Glucose 139 H (74-99) mg/dL Plasma Lactic Acid Efren 1.6 (0.7-2.0) mmol/L Calcium 9.3 (8.4-10.2) mg/dL Magnesium 2.1 (1.6-2.3) mg/dL Total Bilirubin 0.6 (0.2-1.3) mg/dL AST 25 (17-59) U/L ALT 21 (4-49) U/L Alkaline Phosphatase 139 H (38-126) U/L Troponin I 0.017 (0.000-0.034) ng/mL NT-Pro-B Natriuret Pep 1170 pg/mL Total Protein 6.1 L (6.3-8.2) g/dL Albumin 3.8 (3.5-5.0) g/dL Influenza Type A (PCR) (Not Detectd) Influenza Type B (PCR) (Not Detectd) RSV (PCR) (Not Detectd) SARS-CoV-2 (PCR) (Not Detectd) Disposition Clinical Impression: Pneumonia Disposition: ADMITTED IP TO THIS HOSP Condition: Fair Referrals: None,Stated [REFERRING] - 1-2 days Decision Time: 05:20
[2024-11-25 03:43] LABS: Basophils % (A) 0 %; Eosinophils # (A) 0.1 k/uL (0-0.7); Eosinophils % (A) 1 %; HGB 13.6 gm/dL (13.0-17.5); Hypochromasia Slight; Lymphocytes # (A) 0.7 k/uL (1.0-4.8); Lymphocytes % (A) 4 %; MCHC 32.5 g/dL (31.0-37.0); MCV 89.4 fL (80.0-100.0); Mean Platelet Volume 8.1; Monocytes # (A) 0.8 k/uL (0-1.0); Monocytes % (A) 5 %; Neutrophils # (A) 15.2 k/uL (1.3-7.7); Neutrophils % (A) 90 %; Platelet Count 299 k/uL (150-450); RDW 14.7 % (11.5-15.5)
[2024-11-25 03:53] LABS: INR 1.3 (<1.2); Partial Thromboplastin Time 27.4 sec (22.0-30.0); Prothrombin Time 13.8 sec (10.0-12.5)
[2024-11-25 04:13] LABS: ALT 21 U/L (4-49); AST 25 U/L (17-59); African American GFR (CKD) 50 (>60 ml/min/1.73 sqM); Albumin 3.8 g/dL (3.5-5.0); Alkaline Phosphatase 139 U/L (38-126); Anion Gap 9 mmol/L; Blood Urea Nitrogen 38 mg/dL (9-20); Calcium 9.3 mg/dL (8.4-10.2); Carbon Dioxide 27 mmol/L (22-30); Chloride 100 mmol/L (98-107); Glucose 139 mg/dL (74-99); Magnesium 2.1 mg/dL (1.6-2.3); Non-African American GFR(CKD) 43 (>60 ml/min/1.73 sqM); Potassium 4.6 mmol/L (3.5-5.1); Sodium 136 mmol/L (137-145); Total Bilirubin 0.6 mg/dL (0.2-1.3); Total Protein 6.1 g/dL (6.3-8.2)
[2024-11-25 04:20] LABS: Influenza A Not Detected (Not Detectd); Influenza B Not Detected (Not Detectd); RSV Not Detected (Not Detectd)
[2024-11-25 04:21] LABS: NT-Pro-B-Type Natriuretic Pept 1170 pg/mL
--- NOTE | 2024-11-25 05:07 | XR ---
EXAM: XR Chest, 1 View CLINICAL HISTORY: ITS.REASON XR Reason: dyspnea, hypoxic TECHNIQUE: Frontal view of the chest. COMPARISON: X-ray dated 08/29/2024 FINDINGS: Lungs: Confluent right lower lobe airspace opacity. The lateral aspect of the right lower lungs excluded from the film. The right lung is clear. Pleural space: Unremarkable. No pneumothorax. Heart: Mild enlargement of the cardiac silhouette. Mediastinum: Unremarkable. Normal mediastinal contour. Bones/joints: Degenerative changes are seen within the spine and shoulders. No acute fracture. IMPRESSION: Partial visualization of likely right lower lobe pneumonia.
[2024-11-25] MEDS ORDERED: PNEUMONIA PROTOCOL UTILIZED 1 EACH MISC PO PRN (05:13)
[2024-11-25] MEDS: SODIUM CHLORIDE 0.9% 1,000 ML IV SCH (07:38)
[2024-11-25] MEDS ORDERED: ONDANSETRON 4 MG TAB PO PRN (10:37)
[2024-11-25] MEDS ORDERED: ALBUTEROL NEBULIZED 2.5 MG/3 ML INHALATION PRN (10:37)
[2024-11-25] MEDS ORDERED: NON FORMULARY DRUG (Naloxone Hcl [Narcan] 4 MG Each) NASAL PRN (10:37)
[2024-11-25] MEDS ORDERED: polyethylene glycoL 3350 17 GM POWD.PACK PO PRN (10:37)
[2024-11-25] MEDS ORDERED: AMMONIUM LACTATE 12% LOTION 225 GM BTL TOPICAL PRN (10:37)
[2024-11-25] MEDS ORDERED: SENNOSIDES 8.6 MG TAB PO PRN (10:37)
[2024-11-25] MEDS: RIVAROXABAN 15 MG TAB PO SCH (11:04)
[2024-11-25] MEDS: EZETIMIBE 10 MG TAB PO SCH (11:04)
[2024-11-25] MEDS: POTASSIUM CHLORIDE ER 20 MEQ TAB.ER PO SCH (11:04)
[2024-11-25] MEDS: IPRATROPIUM-ALBUTEROL 3 ML NEB INHALATION SCH (12:43)
[2024-11-25] MEDS: FUROSEMIDE 40 MG TAB PO SCH (14:12)
[2024-11-25] MEDS: METOPROLOL TARTRATE 25 MG TAB PO SCH (15:15)
[2024-11-25] MEDS: BENZONATATE 100 MG CAP PO SCH (15:16)
[2024-11-25] MEDS: DOCUSATE 100 MG CAP PO SCH (15:16)
[2024-11-25] MEDS: ACETAMINOPHEN TAB 325 MG TAB PO PRN (15:16)
[2024-11-25] MEDS: SYMBICORT 160-4.5 MCG INHALER INHALATION SCH (19:47)
[2024-11-25] MEDS: VENLAFAXINE HCL ER 37.5 MG CAP PO SCH (20:34)
[2024-11-25] MEDS: LORATADINE 10 MG TAB PO SCH (20:34)
[2024-11-25] MEDS: TAMSULOSIN 0.4 MG CAP.ER.24H PO SCH (20:34)
[2024-11-25] MEDS: ATORVASTATIN 40 MG TAB PO SCH (20:34)
[2024-11-26] MEDS ORDERED: VANCOMYCIN IV PER PHARMACY 1 EACH MISC MISCELLANE PRN (05:03)
[2024-11-26] MEDS: FLUTICASONE NASAL 50MCG/SPRAY 16GM BTL EA NOSTRIL PRN (05:26)
--- NOTE | 2024-11-26 05:45 | P.HPIM ---
History of Present Illness H&P Date: 11/25/24 Chief Complaint: Right lower lobe pneumonia HISTORY OF PRESENT ILLNESS This is a 84-year-old male with past medical history of hypertension, paroxysmal atrial fibrillation on Xarelto, benign prostatic hypertrophy, hiatal hernia, hereditary factor VIII deficiency, hyperlipidemia, mild intermittent asthma, mild COPD, patient was recently admitted to [facility] after he underwent right total hip arthroplasty that was done by Dr. Thakkar and he has been at [facility] for physical therapy rehabilitation, patient developed to have a significant cough yellow phlegm production as well as shortness of breath over the last 2 days, yesterday I received a call from the nursing staff stating that the patient is having dry cough, he was placed on Tessalon Perles 200 mg orally 3 times every day, however the patient became quite hypoxemic, with oxygenation in the range of 84 to 85% he was placed on nonrebreather, he was sent to the ER for evaluation he had a chest x-ray that showed right lower lobe pneumonia, he was started on IV antibiotic in the form of Rocephin and Zithromax he was admitted to the hospital with pulmonary c onsultation, antibiotics were further discontinued and he was started on vancomycin and cefepime since blood cultures did show evidence of MRSA. REVIEW OF SYSTEMS Constitutional: positive for fever, no chills, no night sweats. No weight change. no weakness, no fatigue or lethargy. EENT: No headache. No blurred vision or double vision, no loss of vision. very hard of Hearing, no ringing in the ears, no dizziness. No nasal drainage or congestion. No epistaxis. No sore throat. Lungs: positive for shortness of breath, positive for cough, positive for phlegm production dyspnea on exertion, no pleurisy no hemoptysis. Cardiovascular: No chest pain, mild lower extremity edema. positive for palpitations. No paroxysmal nocturnal dyspnea. No orthopnea. No l ightheadedness or dizziness. No syncopal episodes. Abdominal: no abdominal pain. no nausea, vomiting. No diarrhea. positive for constipation. No bloody or tarry stools. No loss of appetite. Genitourinary: No dysuria, increased frequency, urgency. No urinary retention. Musculoskeletal: No myalgias. Reports muscle weakness, positive for gait dysfunction, positive for frequent falls. No back pain. No neck pain. Integumentary: right hip incision is healed , no lesions. No rash or pruritus. No unusual bruising. No change in hair or nails. Neurologic: No aphasia. No facial droop. No change in mentation. No head injury. No headache. No paralysis. No paresthesia. Psychiatric: mild depression. No anxiety. No mood swings. Endocrine: No abnormal blood sugars. No weight change. No excessive sweating or thirst. No cold intolerance. MEDICAL HISTORY Hypertension Paroxysmal atrial fibrillation Benign prostatic hypertrophy Hiatal hernia Hereditary factor VIII deficiency Hyperlipidemia Mild intermittent asthma COPD SURGICAL HISTORY Hernia repair Bilateral knee replacement Right total hip arthroplasty via anterior approach SOCIAL HISTORY Patient is a lifelong nonsmoker, no alcohol use or abuse, no marijuana or illicit drug use. Patient lives at home with his . FAMILY HISTORY Father at age 88 from CVA and had CABG 25 years earlier. Mother at age 88 at [facility] with history of hyperlipidemia. Patient has 2 brothers and one at age 21 in airplane crash and the other one has had multiple surgeries. Patient has one son with no major medical problems and one daughter with no major medical problem. PHYSICAL EXAMINATION Gen: This is an obese 84-year-old male, resting in bed, appears to be in minimal respiratory distress. HEENT: Head is atraumatic, normocephalic. Pupils equal, round. Sclerae is anicteric. NECK: Supple. No JVD. No lymphadenopathy. No thyromegaly. LUNGS: decreased breath sound at bases, few rhonchi minimal expiratory wheezes no chest wall tenderness no intercostal retractions HEART: First heart sound is depressed, second heart sound is normal, 2/6 systolic ejection murmur at the left sternal border, irregular irregular due to atrial fibrillation. ABDOMEN: Soft. Bowel sounds are present. No masses. No tenderness. EXTREMITIES: +1 pedal edema. No calf tenderness. Pain in the left hip. Dorsalis pedis palpable bilaterally. NEUROLOGICAL: Patient is awake, alert and oriented x3. Cranial nerves 2 through 12 are grossly intact, muscle power 4/5 upper and lower extremities bilaterally ASSESSMENT AND PLAN 1. Right lower lobe pneumonia with MRSA bacteremia. Sputum culture/blood culture came back positive for MRSA discontinue Rocephin and Zithromax started the patient on vancomycin pharmacy to dose its peak and trough, cefepime 2 g IV piggyback every 8 hours, continue with DuoNeb 3 mL nebulization 4 times every day, continue oxygen support, continue with Symbicort 160/4.5 mcg 2 puffs elation twice every day, we have consulted pulmonary medicine as well as ID we will follow-up with the patient very closely. 2. Atrial fibrillation with rapid ventricular response. Increase metoprolol to 100 mg orally twice every day, continue Xarelto 15 mg orally once every day, cardiology consultation. 3. chronic diastolic heart failure . Continue metoprolol 100 mg orally twice every day, monitor the patient's symptoms very closely continue Farxiga 10 mg orally once every day, continue Lasix 40 mg orally twice daily with potassium supplements 4. COPD with mild exacerbation. Continue patient on DuoNeb 3 mL nebulization 4 times every day, Symbicort 804 0.5 g 2 puffs twice daily, oxygen support, pulmonary consultation 5. Mild intermittent asthma. Continue Singulair 10 mg at bedtime, levocetirizine 5 mg once daily, albuterol nebulizer treatments every 4 hours as neede 6. Benign prostatic hypertrophy. Continue Flomax 0.4 mg at bedtime, monitor for urinary retention. 7. Hereditary factor VIII deficiency. Continue Xarelto 15 mg once a day. 8. Hyperlipidemia. Continue Zetia 10 mg daily and Atorvastatin 40 mg once a day. Monitor the patient lipid panel, keep LDL 55-70 9. Hypertension and hypertensive cardiovascular disease. Continue Lopressor 100 mg twice daily. 10. GI prophylaxis. Protonix 40 mg po daily. 11. DVT prophylaxis. Continue Xarelto 15 mg once every day 12. Major depressive disorder. Continue patient on Effexor XR 37.5 mg orally once every day. 13. Admit to inpatient. Estimated length of stay 2 nights 14. Patient is full code. Past Medical History Past Medical History: Atrial Fibrillation, Asthma, Cancer, Diabetes Mellitus, Deep Vein Thrombosis (DVT), GERD/Reflux, Hearing Disorder / Deafness, Hyperlipidemia, Hypertension, Osteoarthritis (OA), Pneumonia, Prostate Disorder Additional Past Medical History / Comment(s): Hx pneumonia yrs ago, RSV/ hospitalized x 2 weeks in ICU, dvt R calf, hiatal hernia, hx kidney stones, [place] use of bilateral hearing aids. skin ca; "pre diabetic". History of Any Multi-Drug Resistant Organisms: None Reported Past Surgical History: Joint Replacement, Orthopedic Surgery Additional Past Surgical History / Comment(s): Bilateral knee replacements., total L hip arthroplasty, LIS and cardioversions, elbow surg, cystoscopy & right ureter stent Aug 2024, stent removed Sep 2024. Right TAD. Past Anesthesia/Blood Transfusion Reactions: No Reported Reaction Past Psychological History: Depression Smoking Status: Never smoker Past Alcohol Use History: Rare Past Drug Use History: None Reported - Past Family History Mother Family Medical History: No Reported History Father Additional Family Medical History / Comment(s): open heart Medications and Allergies Home Medications Medication Instructions Recorded Confirmed Type Tamsulosin HCl [Flomax] 0.4 mg PO HS 05/29/18 11/25/24 History Albuterol Sulfate [Albuterol 1 puff INHALATION RT-Q4H PRN 10/07/21 11/25/24 History Sulfate Hfa] Fluticasone Nasal [place] [Flonase 1 spray EA NOSTRIL BID PRN 06/02/22 11/25/24 History Nasal [place]] Fluticasone/Umeclidin/Vilanter 1 puff INHALATION RT-DAILY 09/07/23 11/25/24 History [Trelegy Ellipta 200-62.5-25] Atorvastatin [Lipitor] 40 mg PO HS 10/16/23 11/25/24 History Ezetimibe [Zetia] 10 mg PO DAILY 10/16/23 11/25/24 History Levocetirizine Dihydrochloride 5 mg PO HS 10/16/23 11/25/24 History [Xyzal] Dapagliflozin Propanediol [Farxiga] 10 mg PO DAILY #30 tab 03/27/24 11/25/24 Rx Ammonium Lactate Lotion 1 applic TOPICAL BID PRN 09/13/24 11/25/24 History [Lac-Hydrin 12% Lotion] Budesonide/Formoterol Fumarate 1 puff INHALATION RT-BID 09/13/24 11/25/24 History [Breyna 160-4.5 Mcg Inhaler] Venlafaxine HCl [Effexor XR] 37.5 mg PO HS 09/13/24 11/25/24 History Cholecalciferol (Vitamin D3) 50 mcg PO DAILY 10/21/24 11/25/24 History [Vitamin D3 (50 Mcg = 2000 Iu)] Omeprazole 20 mg PO DAILY #30 tab 10/25/24 11/25/24 Rx Ondansetron [Zofran] 4 mg PO Q6HR PRN #30 tab 10/25/24 11/25/24 Rx guaiFENesin SYRUP 100MG/5ML 200 mg PO Q6HR PRN ml 10/30/24 11/25/24 Rx [Robitussin] Acetaminophen [Tylenol 8 Hour] 650 mg PO Q6H PRN 11/25/24 11/25/24 History Benzonatate [Tessalon Perles] 100 mg PO TID 11/25/24 11/25/24 History Docusate [Colace] 100 mg PO BID@0800,1600 11/25/24 11/25/24 History Furosemide [Lasix] 40 mg PO DAILY@0500,1300 11/25/24 11/25/24 History HYDROcodone/APAP 5-325MG [[place] 5] 1 tab PO Q6HR PRN 11/25/24 11/25/24 History Ipratropium-Albuterol Nebulize 3 ml INHALATION RT-Q6H 11/25/24 11/25/24 History [Duoneb 0.5 mg-3 mg/3 ml Soln] Metoprolol Tartrate [Lopressor] 75 mg PO BID@0800,1600 11/25/24 11/25/24 History Naloxone HCl [Narcan] 4 mg NASAL ONCE PRN 11/25/24 11/25/24 History Potassium Chloride [Klor-Con M20] 20 meq PO DAILY 11/25/24 11/25/24 History Rivaroxaban [Xarelto] 20 mg PO DAILY 11/25/24 11/25/24 History Sennosides [Senokot] 17.2 mg PO DAILY PRN 11/25/24 11/25/24 History polyethylene glycoL 3350 [Miralax] 17 gm PO DAILY PRN 11/25/24 11/25/24 History Allergies Allergy/AdvReac Type Severity Reaction Status Date / Time rosuvastatin [From Crestor] AdvReac muscle Verified 11/25/24 03:04 soreness/cramps Physical Exam Vitals: Vital Signs Temp Pulse Resp BP Pulse Ox 11/25/24 10:34 107 H 22 100/65 95 11/25/24 09:15 99.8 F H 107 H 22 97/73 98 11/25/24 07:41 110 H 24 105/70 95 11/25/24 06:35 103 H 20 113/91 93 L 11/25/24 03:16 108 H 20 102/77 97 11/25/24 03:00 99.3 F 94 20 124/88 97 Intake and Output 11/24/24 11/25/24 11/25/24 22:59 06:59 14:59 Other: Weight 106.594 kg Results CBC & Chem 7: 11/25/24 03:26 11/25/24 03:26 Labs: Abnormal Lab Results - Last 24 Hours (Table) 11/25/24 11/25/24 11/25/24 Range/Units 03:26 03:26 03:26 WBC 17.0 H (3.8-10.6) k/uL Neutrophils # 15.2 H (1.3-7.7) k/uL Lymphocytes # 0.7 L (1.0-4.8) k/uL PT 13.8 H (10.0-12.5) sec INR 1.3 H (<1.2) Sodium 136 L (137-145) mmol/L BUN 38 H (9-20) mg/dL Creatinine 1.49 H (0.66-1.25) mg/dL Glucose 139 H (74-99) mg/dL Alkaline Phosphatase 139 H (38-126) U/L Total Protein 6.1 L (6.3-8.2) g/dL
[2024-11-26] MEDS: VANCOMYCIN 1,750 MG in SODIUM CHLORIDE 0.9% 500 ML 500 ML IVPB SCH (06:23)
[2024-11-26] MEDS: METOPROLOL TARTRATE 50 MG TAB PO SCH (06:23)
--- NOTE | 2024-11-26 06:29 | P.CNPUL ---
History of Present Illness Consult date: 11/26/24 Requesting physician: Deny Conley Reason for consult: pneumonia Chief complaint: Shortness of breath, hypoxia History of present illness: Patient is an 84-year-old male with past medical history significant for hypertension, atrial fibrillation anticoagulated on Xarelto, hyperlipidemia, ast hma/COPD. Of note, recently underwent right total hip arthroplasty on October 25, 2024, and was discharged to [facility] for rehab. While at the [facility], was noted to be getting up to the bathroom and was in acute respiratory distress. He was noted to be hypoxic with an SpO2 in the low 80s. Transferred to [facility] ED for evaluation early yesterday morning. Workup in the ED including a chest x-ray possible right lower lobe airspace opacity with the right lateral lung excluded from the film. Originally started on antibiotics in the ED for possible pneumonia. Blood cultures were positive for MRSA. Patient's antibiotics have since been adjusted to vancomycin and cefepime. Highest recorded temperature 99.8 F. Has been tachycardic. Right hip incision is approximated without any erythema, warmth, drainage, or wound dehiscence no. No significant pain out of proportion. He has been ambulating with walker. CBC: WBC count 17, hemoglobin 13.6, platelets 299. CMP: Sodium 136, potassium 4.6, chloride 100, serum bicarb 27, BUN 38, creatinine 1.49, glucose 139. Lac tic was 1.6. NT proBNP 1170. EKG: Atrial fibrillation with rapid ventricular response, 108 bpm, RBB pattern. Negative for influenza, RSV, COVID. Currently being evaluated on the general medical floor. He is alert but overall poor historian. He is hard of hearing. He is on 3 L/min nasal cannula, SpO2 is 95%. He denies any significant respiratory distress. Has a congested cough. Current vitals: Temperature 98.4 F, heart rate 107 bpm, blood pressure 103/57 mmHg, nontachypneic, SpO2 95% on 3 L/min nasal cannula. Review of Systems Constitutional: Denies chills, Denies fatigue, Denies fever, Denies poor appetite, Denies sweats, Denies weight gain, Denies weight loss Ears, nose, mouth and throat: Denies headache, Denies nasal congestion, Denies nasal discharge, Denies post-nasal drip, Denies sinus pain, Denies sinus pr essure, Denies sore throat Cardiovascular: Reports dyspnea on exertion, Denies chest pain, Denies leg edema, Denies lightheadedness, Denies orthopnea, Denies palpitations, Denies paroxysmal nocturnal dyspnea, Denies shortness of breath Respiratory: Reports congestion, Reports cough, Reports dyspnea, Denies cough with sputum, Denies excessive sputum, Denies home oxygen Gastrointestinal: Denies abdominal pain, Denies constipation, Denies diarrhea, Denies nausea, Denies vomiting Genitourinary: Denies dysuria Musculoskeletal: Denies limitation of motion Integumentary: Denies rash, Denies sores Neurological: Denies seizures, Denies syncope Psychiatric: Denies anxiety, Denies depression Past Medical History Past Medical History: Atrial Fibrillation, Asthma, Cancer, Diabetes Mellitus, Deep Vein Thrombosis (DVT), GERD/Reflux, Hearing Disorder / Deafness, H yperlipidemia, Hypertension, Osteoarthritis (OA), Pneumonia, Prostate Disorder Additional Past Medical History / Comment(s): Hx pneumonia yrs ago, RSV/ hospitalized x 2 weeks in ICU, dvt R calf, hiatal hernia, hx kidney stones, EKWOK use of bilateral hearing aids. skin ca; "pre diabetic". History of Any Multi-Drug Resistant Organisms: None Reported Past Surgical History: Joint Replacement, Orthopedic Surgery Additional Past Surgical History / Comment(s): Bilateral knee replacements., total L hip arthroplasty, LIS and cardioversions, elbow surg, cystoscopy & right ureter stent Aug 2024, stent removed Sep 2024. Right TAD. Past Anesthesia/Blood Transfusion Reactions: No Reported Reaction Past Psychological History: Depression Smoking Status: Never smoker Past Alcohol Use History: Rare Past Drug Use History: None Reported - Past Family History Mother Family Medical History: No Reported History Father Additional Family Medical History / Comment(s): open heart Medications and Allergies Home Medications Medication Instructions Recorded Confirmed Type Tamsulosin HCl [Flomax] 0.4 mg PO HS 05/29/18 11/25/24 History Albuterol Sulfate [Albuterol 1 puff INHALATION RT-Q4H PRN 10/07/21 11/25/24 History Sulfate Hfa] Fluticasone Nasal [place] [Flonase 1 spray EA NOSTRIL BID PRN 06/02/22 11/25/24 History Nasal [place]] Fluticasone/Umeclidin/Vilanter 1 puff INHALATION RT-DAILY 09/07/23 11/25/24 History [Trelerodriguez Ellipta 200-62.5-25] Atorvastatin [Lipitor] 40 mg PO HS 10/16/23 11/25/24 History Ezetimibe [Zetia] 10 mg PO DAILY 10/16/23 11/25/24 History Levocetirizine Dihydrochloride 5 mg PO HS 10/16/23 11/25/24 History [Xyzal] Dapagliflozin Propanediol [Farxiga] 10 mg PO DAILY #30 tab 03/27/24 11/25/24 Rx Ammonium Lactate Lotion 1 applic TOPICAL BID PRN 09/13/24 11/25/24 History [Lac-Hydrin 12% Lotion] Budesonide/Formoterol Fumarate 1 puff INHALATION RT-BID 09/13/24 11/25/24 History [Breyna 160-4.5 Mcg Inhaler] Venlafaxine HCl [Effexor XR] 37.5 mg PO HS 09/13/24 11/25/24 History Cholecalciferol (Vitamin D3) 50 mcg PO DAILY 10/21/24 11/25/24 History [Vitamin D3 (50 Mcg = 2000 Iu)] Omeprazole 20 mg PO DAILY #30 tab 10/25/24 11/25/24 Rx Ondansetron [Zofran] 4 mg PO Q6HR PRN #30 tab 10/25/24 11/25/24 Rx guaiFENesin SYRUP 100MG/5ML 200 mg PO Q6HR PRN ml 10/30/24 11/25/24 Rx [Robitussin] Acetaminophen [Tylenol 8 Hour] 650 mg PO Q6H PRN 11/25/24 11/25/24 History Benzonatate [Tessalon Perles] 100 mg PO TID 11/25/24 11/25/24 History Docusate [Colace] 100 mg PO BID@0800,1600 11/25/24 11/25/24 History Furosemide [Lasix] 40 mg PO DAILY@0500,1300 11/25/24 11/25/24 History HYDROcodone/APAP 5-325MG [[place] 5] 1 tab PO Q6HR PRN 11/25/24 11/25/24 History Ipratropium-Albuterol Nebulize 3 ml INHALATION RT-Q6H 11/25/24 11/25/24 History [Duoneb 0.5 mg-3 mg/3 ml Soln] Metoprolol Tartrate [Lopressor] 75 mg PO BID@0800,1600 11/25/24 11/25/24 History Naloxone HCl [Narcan] 4 mg NASAL ONCE PRN 11/25/24 11/25/24 History Potassium Chloride [Klor-Con M20] 20 meq PO DAILY 11/25/24 11/25/24 History Rivaroxaban [Xarelto] 20 mg PO DAILY 11/25/24 11/25/24 History Sennosides [Senokot] 17.2 mg PO DAILY PRN 11/25/24 11/25/24 History polyethylene glycoL 3350 [Miralax] 17 gm PO DAILY PRN 11/25/24 11/25/24 History Allergies Allergy/AdvReac Type Severity Reaction Status Date / Time rosuvastatin [From Crestor] AdvReac muscle Verified 11/25/24 03:04 soreness/cramps Physical Exam Vitals: Vital Signs Temp Pulse Pulse Resp BP BP Pulse Ox 11/26/24 05:36 95 11/26/24 01:52 98.4 F 107 H 18 103/57 95 11/25/24 20:02 118 H 11/25/24 20:00 18 11/25/24 19:48 115 H 11/25/24 19:16 98.5 F 92 18 101/65 94 L 11/25/24 13:50 97.8 F 116 H 20 143/65 95 11/25/24 12:57 99.2 F 104 H 18 108/75 97 11/25/24 12:53 109 H 11/25/24 12:44 120 H 11/25/24 10:34 107 H 22 100/65 95 11/25/24 09:15 99.8 F H 107 H 22 97/73 98 11/25/24 07:41 110 H 24 105/70 95 11/25/24 06:35 103 H 20 113/91 93 L Intake and Output 11/25/24 11/25/24 11/26/24 14:59 22:59 06:59 Intake Total 50 Balance 50 Intake: Intake, IV Titration 50 Amount cefTRIAXone 2 gm In 50 Sodium Chloride 0.9% 50 ml @ 100 mls/hr IVPB Q24HR [facility] Rx#:[id number] Other: Voiding Method Incontinent # Voids 2 3 Weight 106.594 kg GENERAL EXAM: Alert, 84-year-old white male, laying on his left side, hard of hearing, fairly comfortable in no apparent distress. HEAD: Normocephalic and atraumatic EYES: Normal reaction of pupils, equal size. NOSE: Clear with pink turbinates. THROAT: No erythema or exudates. NECK: No masses, no JVD. CHEST: No chest wall deformity. LUNGS: Equal air entry with bilateral rhonchi. On 3 L/min nasal cannula, SpO2 95%. No conversational dyspnea or accessory muscle use.. CVS: S1 and S2 normal with no audible murmur, irregular rhythm. No extra heart sounds ABDOMEN: No hepatosplenomegaly, active bowel sounds, no guarding or rigidity. SPINE: No scoliosis or deformity SKIN: No rashes. Right hip incision is approximated, without any erythema, warmth, drainage or wound dehiscence CENTRAL NERVOUS SYSTEM: No focal deficits, tone is normal in all 4 extremities. EXTREMITIES: There is no peripheral edema, clubbing, or cyanosis. Peripheral pulses are intact. Results - Laboratory Findings CBC and BMP: 11/25/24 03:26 11/25/24 03:26 PT/INR, D-dimer PT 13.8 sec (10.0-12.5) H 11/25/24 03:26 INR 1.3 (<1.2) H 11/25/24 03:26 Abnormal lab findings: Abnormal Labs 11/25/24 11/25/24 11/25/24 03:26 03:26 03:26 WBC 17.0 H Neutrophils # 15.2 H Lymphocytes # 0.7 L PT 13.8 H INR 1.3 H Sodium 136 L BUN 38 H Creatinine 1.49 H Glucose 139 H Alkaline Phosphatase 139 H Total Protein 6.1 L - Diagnostic Findings Chest x-ray: image reviewed Assessment and Plan Assessment: Acute exacerbation of chronic COPD with secondary shortness of breath. The patient is actively bronchospastic and wheezy Acute hypoxic respiratory failure currently on 3 days of oxygen by nasal ca nnula. Chest x-ray is revealing cardiomegaly with mild pulm vessel congestion and some atelectatic changes right lung base MRSA bacteremia, under investigation. Rule out contaminant versus true inf ection. Afebrile the patient has some mild leukocytosis. Surgical site over the right hip area is dry clean and intact. Recent right direct anterior total hip arthroplasty, October 25, 2024, discha [facility]ilherme to [facility] for rehab Acute hypoxemic respiratory failure, on 3 L/min nasal cannula, chest x-ray showing possible right lung infiltrate versus atelectasis Possible acute COPD exacerbation Atrial fibrillation with rapid ventricular response, anticoagulated on Xarelto History of hypertension History of hyperlipidemia History of factor VIII deficiency History of BPH History of nephrolithiasis and previous ureteral stent placement History of frequent urinary tract infections Plan: Patient's medications, labs, chest x-ray reviewed Continue supplemental oxygen maintain oxygen saturation of 90% or greater, currently on 3 L/min nasal cannula Continue combination of Symbicort inhaler, DuoNebs, IV Solu-Medrol Blood cultures positive for MRSA, antibiotics previously adjusted including vancomycin and cefepime. Echocardiogram pending for the morning Recent direct anterior total hip arthroplasty Infectious disease is consulted Xarelto has been continued Metoprolol 100 mg twice daily also continued GI prophylaxis: protonix We will continue to follow I have personally seen and examined the patient, performed the documentation and the assessment and plan as written. Number of minutes spent on the visit:20 On 11/26/2024, the patient is being seen in consultation and this is a joint evaluation that was done along with the nurse practitioner. This patient is a 22 years old with known history of COPD. He also has multiple other comorbidities including history of atrial fibrillation maintained on long-term anticoagulation with Xarelto, hypertension, hyperlipidemia, BPH, nephrolithiasis and the patient has osteoarthritis and he has undergone a anterior total right hip arthroplasty on 10/25/2024. He was discharged for rehabilitation at the [facility] where the patient was found to be more short of breath and the patient was actively bronchospastic and wheezy and based on that he was brought back to the hospital. Chest x-ray reveals cardiomegaly with some increased interstitial prominence and the echocardiogram shows mildly impaired LV function with an ejection fraction of 40 to 45% without any significant valvular abnormalities other than some mild aortic regurgitation. The patient also had a positive blood culture that is growing gram-positive cocci in clusters. His white cell count is currently at 17 with a hemoglobin 13.6 and a platelet count of 299. BUN is 38 with a creatinine of 1.49 and this is consistent with an acute kidney injury. Rest of the electrolytes are essentially within normal limits. Troponins are negative. proBNP level is 1170. For now, the patient is on DuoNeb nebulized treatment [id number], Symbicort 2 puffs twice daily as maintenance. He is on IV Solu-Medrol 60 mg every 6 hours. He was started on IV vancomycin pending further cultures and the blood. He is also on IV cefepime. He remains on anticoagulation with Xarelto. Oxygen requirements are stable and the patient remains on 2 L of oxygen by nasal cannula with a pulse ox of 92%. Surgical wound site over the right hip area is dry clean and intact. Will monitor the cultures. Will continue to follow. Time with Patient: Greater than 30
[2024-11-26] MEDS ORDERED: NON FORMULARY DRUG (Fluticasone/Umeclidin/Vilanter [Trelegy Ellipta 200-62.5-25] 1 EACH Bl INHALATION SCH (08:00)
[2024-11-26] MEDS: DAPAGLIFLOZIN PROPANEDIOL 10 MG TABLET PO SCH (08:28)
[2024-11-26] MEDS: PANTOPRAZOLE 40 MG TABLET PO SCH (08:28)
[2024-11-26] MEDS: CHOLECALCIFEROL 25 MCG (1000 IU) TABLET PO SCH (08:28)
--- NOTE | 2024-11-26 08:32 | XR ---
EXAMINATION TYPE: XR chest 1V portable DATE OF EXAM: 11/26/2024 7:35 AM COMPARISON: 11/25/2024 CLINICAL INDICATION: Male, 84 years old with history of pneumonia, , FINDINGS: Heart mildly moderately enlarged. Increased interstitial density. Ongoing patchy mid and lower lung o pacity on the right lower lesser extent on the left. IMPRESSION: 1. Similar mild to moderate cardiomegaly. 2. Similar interstitial density. Correlate to exclude mild pulmonary vascular congestion. 3. Patchy interstitial opacities remain at the lower lungs, right greater than left. [facility], Workstation: [id number], 11/26/2024 8:30 AM
[2024-11-26] MEDS ORDERED: AZITHROMYCIN 500 MG TAB PO SCH (09:00)
[2024-11-26] MEDS: CEFEPIME 2 GM in SODIUM CHLORIDE 0.9% 100 ML IVPB SCH (10:29)
--- NOTE | 2024-11-26 11:00 | P.CRDCN ---
History of Present Illness Consult date: 11/26/24 (It looks) Reason for Consult (text): Atrial fibrillation with RVR History of present illness: This is an 84-year-old male patient of Dr. Davis with past medical history of chronic permanent atrial fibrillation on Xarelto, hypertension, peripheral vascular disease, family history of premature coronary artery disease, history of tobacco use and dependence, multivessel CAD, mixed hyperlipidemia, ischemic cardiomyopathy. We have been asked to evaluate the patient for A-fib with RVR. Patient's son states that he received a call from [facility] where patient is receiving subacute rehab that his pulse ox had dropped down to 80%. Patient a lso had congestion and a deep raspy cough. Patient denies having chest pain, no palpitations. Patient was admitted to the hospital and treated for right lower lobe pneumonia and MRSA bacteremia, A-fib with RVR, chronic diastolic heart failure, COPD with mild exacerbation as well as mild intermittent asthma. Patient was found to have A-fib with RVR with heart rate in the 120s to 150s this morning. Attending has increased his Lopressor to 100 mg twice daily from 75 mg twice daily. Heart rate is better controlled at the time of evaluation. Blood pressure 107/62, heart rate 100-112, pulse ox 95% on 2 L nasal cannula. -EKG: Atrial fibrillation with ventricular rate of 108 -Chest x-ray: #1 partial visualization of likely right lower lobe pneumonia. #2 similar mild to moderate cardiomegaly. Similar interstitial density correlate to include mild pulmonary vascular congestion. Patchy interstitial opacities remain in the lower lungs right greater than left. -Laboratory studies: WBC 17, hemoglobin 13.6, INR 1.3, BUN 38, creatinine 1.49, potassium 4.6, troponin negative x 1. proBNP 1170. Alkaline phosphatase 139. Influenza A, influenza B, RSV, COVID-19 not detected. -Home cardiac medications: Atorvastatin 40 mg at bedtime, Farxiga 10 mg daily, Zetia 10 mg daily, Lasix 40 mg twice daily, metoprolol tartrate 75 mg twice daily, potassium chloride 20 mill equivalents daily, Xarelto 20 mg daily -Cardiac catheterization performed 09/19/2023 revealed 20% distal left main, 20% proximal LAD, 20% proximal circumflex, 20% mid RCA and right dominant. -Echocardiogram performed on 03/22/2024 in the office revealed EF 42% with mild , mild TR, mild AR. -Event monitor performed 01/25/2024 - 01/26/2024: Primary rhythm atrial fibrillation/flutter with average heart rate 93, minimal heart rate 69 and maximum heart rate 144. 100% burden of atrial fibrillation or flutter. PVC burden 0.08%. 1 episode of ventricular tachycardia 4 beats. Overall, atrial fibrillation with controlled ventricular rate. Review Of Systems: At the time of my exam: CONSTITUTIONAL: Denies fever or chills. HEENT: Denies blurred vision, vision changes, or eye pain. Denies hemoptysis CARDIOVASCULAR: Denies chest pain. Denies orthopnea. Denies PND. Denies palpitations RESPIRATORY: Reports shortness of breath. Reports cough GASTROINTESTINAL: Denies abdominal pain. Denies nausea or vomiting. HEMATOLOGIC: Denies bleeding disorders. GENITOURINARY: Denies any blood in urine. SKIN: Denies puritis. Denies rash. Physical examination: Gen: This is an 84-year-old male in no acute distress. VS: reviewed HEENT: Head is atraumatic, normocephalic. Pupils equal, round. Sclerae is anicteric. NECK: Supple. No JVD. LUNGS: Bilateral rhonchi. No intercostal retractions. HEART: Irregular rate and rhythm. 2/6 systolic ejection murmur at the base. ABDOMEN: Soft No tenderness. EXTREMITIES: No pedal edema. No calf tenderness. NEUROLOGICAL: Patient is awake, alert and oriented x3. Assessment: Permanent atrial fibrillation on Xarelto with RVR Acute hypoxic respiratory failure with possible right pneumonia COPD exacerbation Possible MRSA bacteremia Acute kidney injury Recent right total hip arthroplasty 10/25/2024 Hypertension Hyperlipidemia Multivessel mild coronary artery disease, nonobstructive, cardiac cath done 09/19/2023 Remote history of tobacco use Plan: Continue patient's home cardiac medications Agree with increasing metoprolol to 100 mg twice daily Continue telemetry monitoring Obtain 2-D echocardiogram and Doppler study to assess cardiac structure and function Further recommendations to follow based upon clinical course Thank you kindly for this consultation. Nurse practitioner note has been reviewed, I agree with documented findings and plan of care. Patient was seen and examined. Past Medical History Past Medical History: Atrial Fibrillation, Asthma, Cancer, Diabetes Mellitus, Deep Vein Thrombosis (DVT), GERD/Reflux, Hearing Disorder / Deafness, Hyperlipidemia, Hypertension, Osteoarthritis (OA), Pneumonia, Prostate Disorder Additional Past Medical History / Comment(s): Hx pneumonia yrs ago, RSV/ hospitalized x 2 weeks in ICU, dvt R calf, hiatal hernia, hx kidney stones, [place] use of bilateral hearing aids. skin ca; "pre diabetic". History of Any Multi-Drug Resistant Organisms: None Reported Past Surgical History: Joint Replacement, Orthopedic Surgery Additional Past Surgical History / Comment(s): Bilateral knee replacements., to aurea L hip arthroplasty, LIS and cardioversions, elbow surg, cystoscopy & right ureter stent Aug 2024, stent removed Sep 2024. Right TAD. Past Anesthesia/Blood Transfusion Reactions: No Reported Reaction Past Psychological History: Depression Smoking Status: Never smoker Past Alcohol Use History: Rare Past Drug Use History: None Reported - Past Family History Mother Family Medical History: No Reported History Father Additional Family Medical History / Comment(s): open heart Medications and Allergies Home Medications Medication Instructions Recorded Confirmed Type Tamsulosin HCl [Flomax] 0.4 mg PO HS 05/29/18 11/25/24 History Albuterol Sulfate [Albuterol 1 puff INHALATION RT-Q4H PRN 10/07/21 11/25/24 History Sulfate Hfa] Fluticasone Nasal [place] [Flonase 1 spray EA NOSTRIL BID PRN 06/02/22 11/25/24 History Nasal [place]] Fluticasone/Umeclidin/Vilanter 1 puff INHALATION RT-DAILY 09/07/23 11/25/24 History [Trelegy Ellipta 200-62.5-25] Atorvastatin [Lipitor] 40 mg PO HS 10/16/23 11/25/24 History Ezetimibe [Zetia] 10 mg PO DAILY 10/16/23 11/25/24 History Levocetirizine Dihydrochloride 5 mg PO HS 10/16/23 11/25/24 History [Xyzal] Dapagliflozin Propanediol [Farxiga] 10 mg PO DAILY #30 tab 03/27/24 11/25/24 Rx Ammonium Lactate Lotion 1 applic TOPICAL BID PRN 09/13/24 11/25/24 History [Lac-Hydrin 12% Lotion] Budesonide/Formoterol Fumarate 1 puff INHALATION RT-BID 09/13/24 11/25/24 His tory [Breyna 160-4.5 Mcg Inhaler] Venlafaxine HCl [Effexor XR] 37.5 mg PO HS 09/13/24 11/25/24 History Cholecalciferol (Vitamin D3) 50 mcg PO DAILY 10/21/24 11/25/24 History [Vitamin D3 (50 Mcg = 2000 Iu)] Omeprazole 20 mg PO DAILY #30 tab 10/25/24 11/25/24 Rx Ondansetron [Zofran] 4 mg PO Q6HR PRN #30 tab 10/25/24 11/25/24 Rx guaiFENesin SYRUP 100MG/5ML 200 mg PO Q6HR PRN ml 10/30/24 11/25/24 Rx [Robitussin] Acetaminophen [Tylenol 8 Hour] 650 mg PO Q6H PRN 11/25/24 11/25/24 History Benzonatate [Tessalon Perles] 100 mg PO TID 11/25/24 11/25/24 History Docusate [Colace] 100 mg PO BID@0800,1600 11/25/24 11/25/24 History Furosemide [Lasix] 40 mg PO DAILY@0500,1300 11/25/24 11/25/24 History HYDROcodone/APAP 5-325MG [Ransom 5] 1 tab PO Q6HR PRN 11/25/24 11/25/24 History Ipratropium-Albuterol Nebulize 3 ml INHALATION RT-Q6H 11/25/24 11/25/24 History [Duoneb 0.5 mg-3 mg/3 ml Soln] Metoprolol Tartrate [Lopressor] 75 mg PO BID@0800,1600 11/25/24 11/25/24 History Naloxone HCl [Narcan] 4 mg NASAL ONCE PRN 11/25/24 11/25/24 History Potassium Chloride [Klor-Con M20] 20 meq PO DAILY 11/25/24 11/25/24 History Rivaroxaban [Xarelto] 20 mg PO DAILY 11/25/24 11/25/24 History Sennosides [Senokot] 17.2 mg PO DAILY PRN 11/25/24 11/25/24 History polyethylene glycoL 3350 [Miralax] 17 gm PO DAILY PRN 11/25/24 11/25/24 History Allergies Allergy/AdvReac Type Severity Reaction Status Date / Time rosuvastatin [From Crestor] AdvReac muscle Verified 11/25/24 03:04 soreness/cramps Physical Exam Vitals: Vital Signs Temp Pulse Pulse Resp BP BP Pulse Ox 11/26/24 08:25 100 11/26/24 08:10 112 H 11/26/24 07:10 98.5 F 100 22 107/62 95 11/26/24 06:45 111 H 11/26/24 06:24 136 H 132/78 95 11/26/24 05:36 95 11/26/24 01:52 98.4 F 107 H 18 103/57 95 11/25/24 20:02 118 H 11/25/24 20:00 18 11/25/24 19:48 115 H 11/25/24 19:16 98.5 F 92 18 101/65 94 L 11/25/24 13:50 97.8 F 116 H 20 143/65 95 11/25/24 12:57 99.2 F 104 H 18 108/75 97 11/25/24 12:53 109 H 11/25/24 12:44 120 H 11/25/24 10:34 107 H 22 100/65 95 11/25/24 09:15 99.8 F H 107 H 22 97/73 98 Intake and Output 11/25/24 11/26/24 11/26/24 22:59 06:59 14:59 Intake Total 50 Output Total 100 Balance 50 -100 Intake: Intake, IV Titration 50 Amount cefTRIAXone 2 gm In 50 Sodium Chloride 0.9% 50 ml @ 100 mls/hr IVPB Q24HR [facility] Rx#:[id number] Output: Urine 100 Other: Voiding Method Incontinent # Voids 2 3 Results 11/25/24 03:26 11/25/24 03:26 Current Medications Generic Name Dose Route Start Last Admin Trade Name Freq PRN Reason Stop Dose Admin Acetaminophen 650 mg 11/25/24 10:37 11/25/24 15:16 Acetaminophen Tab 325 Mg Tab PO 650 mg Q6H PRN Administration Mild Pain Hydrocodone Bitart/Acetaminophen 1 each 11/25/24 10:37 Hydrocodone/Apap 5-325mg 1 Each Tab PO Q6HR PRN Pain Albuterol/Ipratropium 3 ml 11/25/24 14:00 11/26/24 08:10 Ipratropium-Albuterol 3 Ml Neb INHALATION 3 ml RT-Q6H BRIANA Administration Atorvastatin Calcium 40 mg 11/25/24 21:00 11/25/24 20:34 Atorvastatin 40 Mg Tab PO 40 mg HS BRIANA Administration Benzonatate 100 mg 11/25/24 16:00 11/26/24 08:28 Benzonatate 100 Mg Cap PO 100 mg TID BRIANA Administration Budesonide/Formoterol Fumarate 1 puff 11/25/24 20:00 11/26/24 08:10 Symbicort 160-4.5 Mcg Inhaler INHALATION 1 puff RT-BID BRIANA Administration Cholecalciferol 50 mcg 11/26/24 09:00 11/26/24 08:28 Cholecalciferol 25 Mcg (1000 Iu) Tablet PO 50 mcg DAILY BRIANA Administration Dapagliflozin 10 mg 11/26/24 09:00 11/26/24 08:28 Dapagliflozin Propanediol 10 Mg Tablet PO 10 mg DAILY BRIANA Administration Docusate Sodium 100 mg 11/25/24 16:00 11/26/24 08:28 Docusate 100 Mg Cap PO 100 mg BID@0800,1600 BRIANA Administration Ezetimibe 10 mg 11/25/24 10:45 11/26/24 08:28 Ezetimibe 10 Mg Tab PO 10 mg DAILY BRIANA Administration Fluticasone Propionate 1 spray 11/25/24 10:37 11/26/24 05:26 Fluticasone Nasal 50mcg/[place] 16gm Btl EA NOSTRIL 1 spray BID PRN Administration Allergy Symptoms Guaifenesin 200 mg 11/25/24 10:37 Guaifenesin Syrup 100mg/5ml 200 Mg/10 Ml Cup PO Q6HR PRN Cough Sodium Chloride 1,000 mls @ 20 mls/hr 11/25/24 05:15 11/26/24 05:15 Saline 0.9% IV Not Given .Q24H BRIANA Cefepime HCl 2 gm/ Sodium 100 mls @ 25 mls/hr 11/26/24 08:00 Chloride IVPB Q12H BRIANA Protocol Vancomycin HCl 1,750 mg/ 500 mls @ 167 mls/hr 11/26/24 06:00 11/26/24 06:23 Sodium Chloride IVPB 167 mls/hr Q24H BRIANA Administration Lactic Acid 1 applic 11/25/24 10:37 Ammonium Lactate 12% Lotion 225 Gm Btl TOPICAL BID PRN dermatitis on legs Protocol Loratadine 10 mg 11/25/24 21:00 11/25/24 20:34 Loratadine 10 Mg Tab PO 10 mg HS [facility] Administration Methylprednisolone Sodium Succinate 60 mg 11/26/24 12:00 Methylprednisolone Sod Succi 125 Mg/2 Ml Vial IV Q6HR [facility] Metoprolol Tartrate 100 mg 11/26/24 09:00 11/26/24 06:23 Metoprolol Tartrate 50 Mg Tab PO 100 mg BID BRIANA Administration Miscellaneous Information 1 each 11/25/24 05:13 Pneumonia Protocol Utilized 1 Each Misc PO ONCE PRN Per Protocol Ondansetron HCl 4 mg 11/25/24 10:37 Ondansetron 4 Mg Tab PO Q6HR PRN Nausea Pantoprazole Sodium 40 mg 11/26/24 09:00 11/26/24 08:28 Pantoprazole 40 Mg Tablet PO 40 mg DAILY [facility] Administration Polyethylene Glycol 17 gm 11/25/24 10:37 Polyethylene Glycol 3350 17 Gm Powd.Pack PO DAILY PRN Constipation Rivaroxaban 15 mg 11/25/24 10:45 11/26/24 08:28 Rivaroxaban 15 Mg Tab PO 15 mg DAILY [facility] Administration Protocol Senna 17.2 mg 11/25/24 10:37 Sennosides 8.6 Mg Tab PO DAILY PRN Constipation Tamsulosin HCl 0.4 mg 11/25/24 21:00 11/25/24 20:34 Tamsulosin 0.4 Mg Cap.Er.24h PO 0.4 mg HS [facility] Administration Venlafaxine HCl 37.5 mg 11/25/24 21:00 11/25/24 20:34 Venlafaxine Hcl Er 37.5 Mg Cap PO 37.5 mg HS [facility] Administration Intake and Output 11/25/24 11/26/24 11/26/24 22:59 06:59 14:59 Intake Total 50 Output Total 100 Balance 50 -100 Intake: Intake, IV Titration 50 Amount cefTRIAXone 2 gm In 50 Sodium Chloride 0.9% 50 ml @ 100 mls/hr IVPB Q24HR [facility] Rx#:[id number] Output: Urine 100 Other: Voiding Method Incontinent # Voids 2 3 11/25/24 03:26 11/25/24 03:26
--- NOTE | 2024-11-26 13:05 | CA ---
Transthoracic Echo Report Name: Yaw Brennan Age: 84 Gender: M : 1940 Exam Date: 11/26/2024 10:06 Exam Location: [place] [facility] Ht (in): 69 Wt (lb): 235 Ordering Physician: Buzz Zimmerman MD Attending/Referring Phys: Wild Life Manager Sonya Lugo RDCS Procedure CPT: Indications: MRSA bacteremia Cardiac Hx: Technical Quality: Very technically difficult study Contrast 1: Definity Total Dose (mL): 2 Contrast 2: Total Dose (mL): MEASUREMENTS (Male / Female) Normal Values 2D ECHO LV Diastolic Diameter PLAX 3.4 cm 4.2 - 5.9 / 3.9 - 5.3 cm LV Systolic Diameter PLAX 2.7 cm IVS Diastolic Thickness 1.3 cm 0.6 - 1.0 / 0.6 - 0.9 cm LVPW Diastolic Thickness 1.1 cm 0.6 - 1.0 / 0.6 - 0.9 cm LV Relative Wall Thickness 0.7 RV Internal Dim ED PLAX 3.2 cm LV Diastolic Volume MOD BP 57.1 cm??? 67 - 155 / 56 - 104 cm??? LV Systolic Volume MOD BP 27.6 cm??? 22 - 58 / 19 - 49 cm??? LV Ejection Fraction MOD BP 51.7 % >= 55 % LV Cardiac Index MOD BP 1453.0 cm???/min???m??? LV Diastolic Volume MOD 4C 83.6 cm??? LV Systolic Volume MOD 4C 32.4 cm??? LV Ejection Fraction MOD 4C 61.3 % LV Cardiac Index MOD 4C 2522.3 cm???/min???m??? LV Diastolic Length 4C 7.9 cm LV Systolic Length 4C 7.0 cm LV Diastolic Volume MOD 2C 38.3 cm??? LV Systolic Volume MOD 2C 7.7 cm??? LV Ejection Fraction MOD 2C 80.0 % LV Cardiac Index MOD 2C 1509.4 cm???/min???m??? LV Diastolic Length 2C 7.7 cm LV Systolic Length 2C 2.2 cm LA Volume 64.2 cm??? 18 - 58 / 22 - 52 cm??? LA Volume Index 27.7 cm???/m??? 16 - 28 cm???/m??? M-MODE Aortic Root Diameter MM 3.4 cm DOPPLER AV Peak Velocity 178.2 cm/s AV Peak Gradient 12.7 mmHg AV Mean Velocity 127.3 cm/s AV Mean Gradient 7.3 mmHg AV Velocity Time Integral 28.6 cm MV Area PHT 3.1 cm??? MV Deceleration Time 244.8 ms FINDINGS Left Ventricle Left ventricular ejection fraction is estimated at 40-45 %. Small left ventricular cavity. Mildly increased septal wall thickness. Mildly decreased left ventricular ejection fraction. Right Ventricle Normal right ventricular size. Unable to estimate the right ventricular systolic pressure. Right Atrium Right atrium not well visualized. Left Atrium Mildly increased left atrial volume. Mildly increased left atrial area. Mitral Valve Mitral valve not well visualized. No mitral stenosis, regurgitation or prolapse. Aortic Valve Aortic valve not well visualized. No aortic valve stenosis. Aortic valve sclerosis. Trace to mild aortic regurgitation. Tricuspid Valve Tricuspid valve not well visualized. No tricuspid stenosis, regurgitation or prolapse. Pulmonic Valve Pulmonic valve not well visualized. Pericardium No pericardial effusion. Aorta Normal size aortic root and proximal ascending aorta. CONCLUSIONS Very technically difficult study. Limited views LVEF 40 to 45% Globally reduced mild LV systolic dysfunction. No significant regional wall motion abnormality appreciated. Mild aortic regurgitation Previewed by: Dr Ez Taylor (Electronically Signed) Final Date: 26 November 2024 13:04
[2024-11-26] MEDS: methylPREDNISolone SOD SUCCI 125 MG/2 ML VIAL IV SCH (13:13)
--- NOTE | 2024-11-26 19:06 | P.PN ---
Subjective Progress Note Date: 11/26/24 HISTORY OF PRESENT ILLNESS This is a 84-year-old male with past medical history of hypertension, paroxysmal atrial fibrillation on Xarelto, benign prostatic hypertrophy, hiatal hernia, hereditary factor VIII deficiency, hyperlipidemia, mild intermittent asthma, mild COPD, patient was recently admitted to [facility] after he underwent right total hip arthroplasty that was done by Dr. Thakkar and he has been at [facility] for physical therapy rehabilitation, patient developed to have a significant cough yellow phlegm production as well as shortness of breath over the last 2 days, yesterday I received a call from the nursing staff stating that the patient is having dry cough, he was placed on Tessalon Perles 200 mg orally 3 times every day, however the patient became quite hypoxemic, with oxygenation in the range of 84 to 85% he was placed on nonrebreather, he was sent to the ER for evaluation he had a chest x-ray that showed right lower lobe pneumonia, he was started on IV antibiotic in the form of Rocephin and Zithromax he was admitted to the hospital with pulmonary consultation, antibiotics were further discontinued and he was started on va ncomycin and cefepime since blood cultures did show evidence of MRSA. 11/26: Patient is laying down in bed in no apparent distress, he continues to have A-fib with RVR his heart rate is running between 115 and 135 cardiology was consulted, metoprolol was increased to 100 mg orally twice every day, continue treatment plan, pulmonary consultation still pending, cardiology consultation still pending, patient blood culture showed evidence of MRSA, he was switched to vancomycin as well as cefepime, await ID input, echocardiogram will be obtained. PHYSICAL EXAMINATION Gen: This is an obese 84-year-old male, resting in bed, appears to be in minimal respiratory distress. HEENT: Head is atraumatic, normocephalic. Pupils equal, round. Sclerae is anicteric. NECK: Supple. No JVD. No lymphadenopathy. No thyromegaly. LUNGS: decreased breath sound at bases, few rhonchi minimal expiratory wheezes no chest wall tenderness no intercostal retractions HEART: First heart sound is depressed, second heart sound is normal, 2/6 systolic ejection murmur at the left sternal border, irregular irregular due to atrial fibrillation. ABDOMEN: Soft. Bowel sounds are present. No masses. No tenderness. EXTREMITIES: +1 pedal edema. No calf tenderness. Pain in the left hip. Dorsalis pedis palpable bilaterally. NEUROLOGICAL: Patient is awake, alert and oriented x3. Cranial nerves 2 through 12 are grossly intact, muscle power 4/5 upper and lower extremities bilaterally ASSESSMENT AND PLAN 1. Right lower lobe pneumonia with MRSA bacteremia. Sputum culture/blood culture came back positive for MRSA discontinue Rocephin and Zithromax started the patient on vancomycin pharmacy to dose its peak and trough, cefepime 2 g IV piggyback every 8 hours, continue with DuoNeb 3 mL nebulization 4 times every day, continue oxygen support, continue with Symbicort 160/4.5 mcg 2 puffs elation twice every day, we have consulted pulmonary medicine as well as ID we will follow-up with the patient very closely. We will check echocardiogram. 2. Atrial fibrillation with rapid ventricular response. Increase metoprolol to 100 mg orally twice every day, continue Xarelto 15 mg orally once every day, cardiology consultation. 3. chronic diastolic heart failure . Continue metoprolol 100 mg orally twice every day, monitor the patient's symptoms very closely continue Farxiga 10 mg orally once every day, continue Lasix 40 mg orally twice daily with potassium supplements 4. COPD with mild exacerbation. Continue patient on DuoNeb 3 mL nebulization 4 times every day, Symbicort 804 0.5 g 2 puffs twice daily, oxygen support, pulmonary consultation 5. Mild intermittent asthma. Continue Singulair 10 mg at bedtime, levocetirizine 5 mg once daily, albuterol nebulizer treatments every 4 hours as neede 6. Benign prostatic hypertrophy. Continue Flomax 0.4 mg at bedtime, monitor for urinary retention. 7. Hereditary factor VIII deficiency. Continue Xarelto 15 mg once a day. 8. Hyperlipidemia. Continue Zetia 10 mg daily and Atorvastatin 40 mg once a day. Monitor the patient lipid panel, keep LDL 55-70 9. Hypertension and hypertensive cardiovascular disease. Continue Lopressor 100 mg twice daily. 10. GI prophylaxis. Protonix 40 mg po daily. 11. DVT prophylaxis. Continue Xarelto 15 mg once every day 12. Major depressive disorder. Continue patient on Effexor XR 37.5 mg orally once every day. Objective - Vital Signs Vital signs: Vital Signs Temp 98.4 F 01/07/25 01:52 Pulse 107 H 11/26/24 01:52 Resp 18 11/26/24 01:52 BP 103/57 11/26/24 01:52 Pulse Ox 95 11/26/24 05:36 FiO2 Intake & Output 11/25/24 11/25/24 11/26/24 06:59 18:59 06:59 Intake Total 50 Balance 50 Weight 106.594 kg 106.594 kg Intake: Intake, IV Titration 50 Amount cefTRIAXone 2 gm In 50 Sodium Chloride 0.9% 50 ml @ 100 mls/hr IVPB Q24HR [facility] Rx#:[id number] Other: Voiding Method Incontinent Incontinent # Voids 3 - Labs CBC & Chem 7: 11/25/24 03:26 11/25/24 03:26 Labs: Microbiology - Last 24 Hours (Table) 11/25/24 03:10 Blood Culture Gram Stain - Preliminary Blood Blood Culture - Preliminary Molecular ID
[2024-11-26] MEDS ORDERED: IPRATROPIUM-ALBUTEROL 3 ML NEB INHALATION PRN (19:37)
[2024-11-26] MEDS: IPRATROPIUM-ALBUTEROL 3 ML NEB INHALATION SCH (22:04)
--- NOTE | 2024-11-26 22:27 | P.CONS ---
History of Present Illness - Reason for Consult Consult date: 11/26/24 Positive blood culture Requesting physician: Buzz Zimmerman - Chief Complaint Shortness of breath x few days - History of Present Illness Patient is an 84-year-old male with a past medical history significant for diabetes mellitus hypertension hyperlipidemia osteoarthritis pneumonia atrial fibrillation patient has been brought into the hospital from the local intermediate concerning for increasing shortness of breath and the patient was found to be hypoxic after trying to go to the bathroom by himself patient was hypoxic with O2 sats of 80% patient denies having any high-grade fever or chills no significant URI symptoms no chest pain did have some shortness of breath and a cough but not bringing up any sputum denies any nausea vomiting no choking on food no abdominal pain or diarrhea patient on presentation to hospital have low- grade fever of 99.8 F patient was tachycardic but not hypotensive he was hypoxic he is currently on 2 L nasal cannula oxygen patient did have white count of 17,000 with a left shift. Creatinine has been mildly elevated influenza RSV COVID testing is negative patient did have chest x-ray right lower lobe pneumonia patient did have a procalcitonin 0.22 blood cultures came back positive with MRSA patient has been started on vancomycin he is also on cefepime infectious disease was consulted for further management of antibiotic therapy Review of Systems Positive point and negatives has been mentioned in the HPI, complete review of systems was performed and all other systems are negative Past Medical History Past Medical History: Atrial Fibrillation, Asthma, Cancer, Diabetes Mellitus, Deep Vein Thrombosis (DVT), GERD/Reflux, Hearing Disorder / Deafness, Hyperlipidemia, Hypertension, Osteoarthritis (OA), Pneumonia, Prostate Disorder Additional Past Medical History / Comment(s): Hx pneumonia yrs ago, RSV/ hospitalized x 2 weeks in ICU, dvt R calf, hiatal hernia, hx kidney stones, [place] use of bilateral hearing aids. skin ca; "pre diabetic". History of Any Multi-Drug Resistant Organisms: None Reported Past Surgical History: Joint Replacement, Orthopedic Surgery Additional Past Surgical History / Comment(s): Bilateral knee replacements., total L hip arthroplasty, LIS and cardioversions, elbow surg, cystoscopy & right ureter stent Aug 2024, stent removed Sep 2024. Right TAD. Past Anesthesia/Blood Transfusion Reactions: No Reported Reaction Past Psychological History: Depression Smoking Status: Never smoker Past Alcohol Use History: Rare Past Drug Use History: None Reported - Past Family History Mother Family Medical History: No Reported History Father Additional Family Medical History / Comment(s): open heart Medications and Allergies Home Medications Medication Instructions Recorded Confirmed Type Tamsulosin HCl [Flomax] 0.4 mg PO HS 05/29/18 11/25/24 History Albuterol Sulfate [Albuterol 1 puff INHALATION RT-Q4H PRN 10/07/21 11/25/24 History Sulfate Hfa] Fluticasone Nasal [place] [Flonase 1 spray EA NOSTRIL BID PRN 06/02/22 11/25/24 History Nasal [place]] Fluticasone/Umeclidin/Vilanter 1 puff INHALATION RT-DAILY 09/07/23 11/25/24 History [Trelegy Ellipta 200-62.5-25] Atorvastatin [Lipitor] 40 mg PO HS 10/16/23 11/25/24 History Ezetimibe [Zetia] 10 mg PO DAILY 10/16/23 11/25/24 History Levocetirizine Dihydrochloride 5 mg PO HS 10/16/23 11/25/24 History [Xyzal] Dapagliflozin Propanediol [Farxiga] 10 mg PO DAILY #30 tab 03/27/24 11/25/24 Rx Ammonium Lactate Lotion 1 applic TOPICAL BID PRN 09/13/24 11/25/24 History [Lac-Hydrin 12% Lotion] Budesonide/Formoterol Fumarate 1 puff INHALATION RT-BID 09/13/24 11/25/24 History [Breyna 160-4.5 Mcg Inhaler] Venlafaxine HCl [Effexor XR] 37.5 mg PO HS 09/13/24 11/25/24 History Cholecalciferol (Vitamin D3) 50 mcg PO DAILY 10/21/24 11/25/24 History [Vitamin D3 (50 Mcg = 2000 Iu)] Omeprazole 20 mg PO DAILY #30 tab 10/25/24 11/25/24 Rx Ondansetron [Zofran] 4 mg PO Q6HR PRN #30 tab 10/25/24 11/25/24 Rx guaiFENesin SYRUP 100MG/5ML 200 mg PO Q6HR PRN ml 10/30/24 11/25/24 Rx [Robitussin] Acetaminophen [Tylenol 8 Hour] 650 mg PO Q6H PRN 11/25/24 11/25/24 History Benzonatate [Tessalon Perles] 100 mg PO TID 11/25/24 11/25/24 History Docusate [Colace] 100 mg PO BID@0800,1600 11/25/24 11/25/24 History Furosemide [Lasix] 40 mg PO DAILY@0500,1300 11/25/24 11/25/24 History HYDROcodone/APAP 5-325MG [[place] 5] 1 tab PO Q6HR PRN 11/25/24 11/25/24 History Ipratropium-Albuterol Nebulize 3 ml INHALATION RT-Q6H 11/25/24 11/25/24 History [Duoneb 0.5 mg-3 mg/3 ml Soln] Metoprolol Tartrate [Lopressor] 75 mg PO BID@0800,1600 11/25/24 11/25/24 History Naloxone HCl [Narcan] 4 mg NASAL ONCE PRN 11/25/24 11/25/24 History Potassium Chloride [Klor-Con M20] 20 meq PO DAILY 11/25/24 11/25/24 History Rivaroxaban [Xarelto] 20 mg PO DAILY 11/25/24 11/25/24 History Sennosides [Senokot] 17.2 mg PO DAILY PRN 11/25/24 11/25/24 History polyethylene glycoL 3350 [Miralax] 17 gm PO DAILY PRN 11/25/24 11/25/24 History Allergies Allergy/AdvReac Type Severity Reaction Status Date / Time rosuvastatin [From Crestor] AdvReac muscle Verified 11/25/24 03:04 soreness/cramps Physical Exam Vitals: Vital Signs Temp Pulse Pulse Resp BP BP Pulse Ox 11/26/24 08:25 100 11/26/24 08:10 112 H 11/26/24 07:10 98.5 F 100 22 107/62 95 11/26/24 06:45 111 H 11/26/24 06:24 136 H 132/78 95 11/26/24 05:36 95 11/26/24 01:52 98.4 F 107 H 18 103/57 95 11/25/24 20:02 118 H 11/25/24 20:00 18 11/25/24 19:48 115 H 11/25/24 19:16 98.5 F 92 18 101/65 94 L 11/25/24 13:50 97.8 F 116 H 20 143/65 95 11/25/24 12:57 99.2 F 104 H 18 108/75 97 11/25/24 12:53 109 H 11/25/24 12:44 120 H Intake and Output 11/25/24 11/26/24 11/26/24 22:59 06:59 14:59 Intake Total 50 Output Total 100 200 Balance 50 -100 -200 Intake: Intake, IV Titration 50 Amount cefTRIAXone 2 gm In 50 Sodium Chloride 0.9% 50 ml @ 100 mls/hr IVPB Q24HR [facility] Rx#:[id number] Output: Urine 100 200 Other: Voiding Method Incontinent Urinal Incontinent # Voids 2 3 GENERAL DESCRIPTION: Elderly male lying in bed, no distress. No tachypnea or accessory muscle of respiration use. HEENT: Shows Pallor , no scleral icterus. Oral mucous membrane is dry. No p haryngeal erythema or thrush NECK: Trachea central, no thyromegaly. LUNGS: Unlabored breathing. Coarse breath sounds bilaterally HEART: S1, S2, regular rate and rhythm. No loud murmur ABDOMEN: Soft, no tenderness , guarding or rigidity, no organomegaly EXTREMITIES: No edema of feet. SKIN: No rash, no masses palpable. NEUROLOGICAL: The patient is sleepy but arousable mood and affect normal. Results CBC & Chem 7: 11/28/24 03:42 11/28/24 03:42 Labs: Microbiology - Last 24 Hours (Table) 11/25/24 03:10 Blood Culture Gram Stain - Preliminary Blood Blood Culture - Preliminary Molecular ID Assessment and Plan (1) Sepsis Current Visit: Yes Status: Acute Code(s): A41.9 - SEPSIS, UNSPECIFIED ORGANISM SNOMED Code(s): 46777543 (2) MRSA bacteremia Current Visit: Yes Status: Acute Code(s): R78.81 - BACTEREMIA; B95.62 - METHICILLIN RESIS STAPH INFCT CAUSING DISEASES [facility]SD [facility] SNOMED Code(s): 73599861386924525 (3) Pneumonia Current Visit: Yes Status: Acute Code(s): J18.9 - PNEUMONIA, UNSPECIFIED ORGANISM SNOMED Code(s): 470600441 Plan: 1patient presented to hospital with sepsis in this patient who did have low- grade fever tachycardia elevated white count meeting criteria for SIRS/sepsis source likely pneumonia right lower lobe in this patient who is a intermediate resident concern for resistant gram-positive/gram-negative 2-patient with MRSA bacteremia source likely pneumonia 3-blood cultures will be document clearance of bacteremia 4-patient did have mild renal insufficiency and need to monitor Vanco trough closely while on vancomycin 5-vancomycin pharmacy to dose target trough of 15 while watching kidney function and Vanco trough closely however discontinue cefepime We will follow on clinical condition and cultures to further adjust medication if needed Thank you for this consultation we will follow the patient along with you Dictation was produced using [employer] dictation software. please excuse any grammatical, word or spelling errors. Time with Patient: Greater than 30
[2024-11-27 05:48] LABS: ALT 17 U/L (4-49); AST 22 U/L (17-59); African American GFR (CKD) 65 (>60 ml/min/1.73 sqM); Albumin 3.4 g/dL (3.5-5.0); Albumin/Globulin Ratio 1.4; Alkaline Phosphatase 116 U/L (38-126); Anion Gap 7 mmol/L; Blood Urea Nitrogen 38 mg/dL (9-20); Calcium 9.2 mg/dL (8.4-10.2); Carbon Dioxide 25 mmol/L (22-30); Chloride 101 mmol/L (98-107); Globulin 2.4 g/dL; Glucose 141 mg/dL (74-99); Non-African American GFR(CKD) 56 (>60 ml/min/1.73 sqM); Potassium 4.4 mmol/L (3.5-5.1); Sodium 133 mmol/L (137-145); Total Bilirubin 0.6 mg/dL (0.2-1.3); Total Protein 5.8 g/dL (6.3-8.2)
[2024-11-27 08:31] LABS: Basophils # (A) 0.01 X 10*3/uL (0.00-0.10); Basophils % (A) 0.1 %; Eosinophils # (A) 0 X 10*3/uL (0.04-0.35); Eosinophils % (A) 0 %; HCT 37.2 % (39.6-50.0); Lymphocytes # (A) 0.42 X 10*3/uL (0.90-5.00); Lymphocytes % (A) 4.7 %; MCHC 32.3 g/dL (32.0-37.0); MCV 86.9 FL (80.0-97.0); Mean Platelet Volume 10.8 FL (9.5-12.2); Monocytes # (A) 0.23 X 10*3/uL (0.20-1.00); Monocytes % (A) 2.6 %; NRBC Per 100 WBC 0 X 10*3/uL (0.00-0.01); Neutrophils # (A) 8.18 X 10*3/uL (1.80-7.70); Neutrophils % (A) 91.7 %; Platelet Count 231 X 10*3/uL (140-440); RBC 4.28 X 10*6/uL (4.40-5.60); RDW 14.5 % (11.5-14.5); WBC 8.92 X 10*3/uL (4.50-10.00)
[2024-11-27] MEDS: DILTIAZEM ORAL 30 MG TAB PO SCH (10:24)
--- NOTE | 2024-11-27 11:01 | P.PN ---
Subjective Progress Note Date: 11/27/24 Reason for Consult (text): Atrial fibrillation with RVR History of present illness: This is an 84-year-old male patient of Dr. Davis with past medical history of chronic permanent atrial fibrillation on Xarelto, hypertension, peripheral vascular disease, family history of premature coronary artery disease, history of tobacco use and dependence, multivessel CAD, mixed hyperlipidemia, ischemic cardiomyopathy. We have been asked to evaluate the patient for A-fib with RVR. Patient's son states that he received a call from [facility] where patient is receiving subacute rehab that his pulse ox had dropped down to 80%. Patient also had congestion and a deep raspy cough. Patient denies having chest pain, no palpitations. Patient was admitted to the hospital and treated for right lower lobe pneumonia and MRSA bacteremia, A-fib with RVR, chronic diastolic heart failure, COPD with mild exacerbation as well as mild intermittent asthma. Patient was found to have A-fib with RVR with heart rate in the 120s to 150s this morning. Attending has increased his Lopressor to 100 mg twice daily from 75 mg twice daily. Heart rate is better controlled at the time of evaluation. Blood pressure 107/62, heart rate 100-112, pulse ox 95% on 2 L nasal cannula. -EKG: Atrial fibrillation with ventricular rate of 108 -Chest x-ray: #1 partial visualization of likely right lower lobe pneumonia. #2 similar mild to moderate cardiomegaly. Similar interstitial density correlate to include mild pulmonary vascular congestion. Patchy interstitial opacities r emain in the lower lungs right greater than left. -Laboratory studies: WBC 17, hemoglobin 13.6, INR 1.3, BUN 38, creatinine 1.49, potassium 4.6, troponin negative x 1. proBNP 1170. Alkaline phosphatase 139. Influenza A, influenza B, RSV, COVID-19 not detected. -Home cardiac medications: Atorvastatin 40 mg at bedtime, Farxiga 10 mg daily, Zetia 10 mg daily, Lasix 40 mg twice daily, metoprolol tartrate 75 mg twice daily, potassium chloride 20 mill equivalents daily, Xarelto 20 mg daily -Cardiac catheterization performed 09/19/2023 revealed 20% distal left main, 20% proximal LAD, 20% proximal circumflex, 20% mid RCA and right dominant. -Echocardiogram performed on 03/22/2024 in the office revealed EF 42% with mild , mild TR, mild AR. -Event monitor performed 01/25/2024 - 01/26/2024: Primary rhythm atrial fibrillation/flutter with average heart rate 93, minimal heart rate 69 and maximum heart rate 144. 100% burden of atrial fibrillation or flutter. PVC burden 0.08%. 1 episode of ventricular tachycardia 4 beats. Overall, atrial fibrillation with controlled ventricular rate. 11/27/2024 Patient seen and examined. Patient states that his shortness of breath and coughing are a lot better. He feels a lot better in general. Heart rate is running between 90 and 114, telemetry is atrial fibrillation. Blood pressure 107/72, pulse ox 90% on 2 L nasal cannula. Repeat blood work reveals WBC 8.9, hemoglobin 12, sodium 133, potassium 4.4, BUN 38 creatinine 1.2 Echocardiogram reveals EF 40 to 45%, limited views. Mild aortic regurgitation. Physical examination: Gen: This is an 84-year-old male in no acute distress. VS: reviewed HEENT: Head is atraumatic, normocephalic. Pupils equal, round. Sclerae is anicteric. NECK: Supple. No JVD. LUNGS: Bilateral rhonchi. No intercostal retractions. HEART: Irregular rate and rhythm. 2/6 systolic ejection murmur at the base. ABDOMEN: Soft No tenderness. EXTREMITIES: No pedal edema. No calf tenderness. NEUROLOGICAL: Patient is awake, alert and oriented x3. Assessment: Permanent atrial fibrillation on Xarelto with RVR Acute hypoxic respiratory failure with possible right pneumonia COPD exacerbation MRSA bacteremia Acute kidney injury, resolved Recent right total hip arthroplasty 10/25/2024 Hypertension Hyperlipidemia Multivessel mild coronary artery disease, nonobstructive, cardiac cath done 09/19/2023 Remote history of tobacco use Plan: Continue patient's home cardiac medications Continue increased dose of metoprolol metoprolol 100 mg twice daily Start patient on Cardizem 30 mg 3 times daily while in the hospital. This can be discontinued at discharge if heart rate is improved. Consider increasing Xarelto dosing at discharge if renal function remains improved Cardiology will sign off this case and follow on an as-needed basis. Please reconsult for any new concerns. Patient may follow-up in the office in one to [address] Davis. Nurse practitioner note has been reviewed, I agree with documented findings and plan of care. Patient was seen and examined. Objective - Vital Signs Vital signs: Vital Signs Temp 97.5 F L 11/27/24 07:36 Pulse 92 11/27/24 08:11 Resp 18 11/27/24 07:36 BP 107/72 11/27/24 07:36 Pulse Ox 90 L 11/27/24 07:36 FiO2 Intake & Output 11/26/24 11/27/24 11/27/24 18:59 06:59 18:59 Output Total 200 600 Balance -200 -600 Output: Urine 200 600 Other: Voiding Method Urinal Urinal Incontinent Incontinent # Voids 3 - Labs CBC & Chem 7: 11/27/24 05:26 11/27/24 05:26 Labs: Abnormal Lab Results - Last 24 Hours (Table) 11/27/24 11/27/24 Range/Units 05:26 05:26 RBC 4.28 L (4.40-5.60) X 10*6/uL Hgb 12.0 L (13.0-17.0) g/dL Hct 37.2 L (39.6-50.0) % Immature Gran # 0.08 H (0.00-0.04) X 10*3/uL Neutrophils # 8.18 H (1.80-7.70) X 10*3/uL Lymphocytes # 0.42 L (0.90-5.00) X 10*3/uL Eosinophils # 0 L (0.04-0.35) X 10*3/uL Sodium 133 L (137-145) mmol/L BUN 38 H (9-20) mg/dL Glucose 141 H (74-99) mg/dL Total Protein 5.8 L (6.3-8.2) g/dL Albumin 3.4 L (3.5-5.0) g/dL Microbiology - Last 24 Hours (Table) 11/25/24 03:10 Blood Culture Gram Stain - Preliminary Blood Blood Culture - Preliminary Presumptive MRSA Coagulase Negative Staph Molecular ID
[2024-11-27] MEDS: guaiFENesin SYRUP 100MG/5ML 200 MG/10 ML CUP PO PRN (13:22)
--- NOTE | 2024-11-27 14:34 | P.PN ---
Subjective Progress Note Date: 11/27/24 Patient is an 84-year-old male with past medical history significant for hypertension, atrial fibrillation anticoagulated on Xarelto, hyperlipidemia, asthma/COPD. Of note, recently underwent right total hip arthroplasty on October 25, 2024, and was discharged to [facility] for rehab. While at the [facility], was noted to be getting up to the bathroom and was in acute respiratory distress. He was noted to be hypoxic with an SpO2 in the low 80s. Transferred to [facility] ED for evaluation early yesterday morning. Workup in the ED including a chest x-ray possible right lower lobe airspace opacity with the right lateral lung excluded from the film. Originally started on antibiotics in the ED for possible pneumonia. Blood cultures were positive for MRSA. Patient's antibiotics have since been adjusted to vancomycin and cefepime. Highest recorded temperature 99.8 F. Has been tachycardic. Right hip incision is approximated without any erythema, warmth, drainage, or wound de hiscence no. No significant pain out of proportion. He has been ambulating with walker. CBC: WBC count 17, hemoglobin 13.6, platelets 299. CMP: Sodium 136, potassium 4.6, chloride 100, serum bicarb 27, BUN 38, creatinine 1.49, glucose 139. Lactic was 1.6. NT proBNP 1170. EKG: Atrial fibrillation with rapid ventricular response, 108 bpm, RBB pattern. Negative for influenza, RSV, COVID. Currently being evaluated on the general medical floor. He is alert but overall poor historian. He is hard of hearing. He is on 3 L/min nasal cannula, SpO2 is 95%. He denies any significant respiratory distress. Has a congested cough. Current vitals: Temperature 98.4 F, heart rate 107 bpm, blood pressure 103/57 mmHg, nontachypneic, SpO2 95% on 3 L/min nasal cannula. On 11/27/2024, the patient is being seen for a follow-up. Less short of breath compared to yesterday. Markedly improved and less bronchospastic and wheezy. Remains on Symbicort as maintenance and DuoNeb nebulized treatments [id number]. Remains on IV Solu-Medrol 60 mg every 6 hours. Rest of the medications are essentially unchanged. Labs from today show a white cell count of 8 with a hemoglobin 12 and a platelet count of 231. Sodium levels at 133, BUN 38 and a creatinine is 1.2. proBNP level was 1170. Troponins were negative. Procalcitonin level was at 0.32. The blood culture is presumptive MRSA and coagulase negative staph and the patient remains on vancomycin. No clear source for the underlying infection. The patient is also known to be in chronic atrial fibrillation. Appraisal Manager on the case. Maintained on metoprolol 100 mg p.o. twice a day. Maintained also on Cardizem 30 mg p.o. 3 times daily for rate control and the patient is also on anticoagulation with Xarelto and dose modification was done as the patient's renal function improved and the creatinine is down from 1.49 down to 1.2. Patient is also being seen by infectious disease regarding the bacteremia with MRSA/coagulase-negative staph. Reviewed the chest x-ray and there is some cardiomegaly. Increased interstitial changes in the lung bases. Pneumonia is doubtful. Currently on 2 L of oxygen by nasal cannula. Echocardiogram from 11/26/2024 shows left-ventricular ejection fraction of 40 to 45%, mildly impaired without any significant wall motion abnormalities and there is also mild aortic regurgitation. Objective - Vital Signs Vital signs: Vital Signs Temp 97.5 F L 11/27/24 07:36 Pulse 96 11/27/24 11:41 Resp 18 11/27/24 08:00 BP 107/72 11/27/24 07:36 Pulse Ox 90 L 11/27/24 07:36 FiO2 Intake & Output 11/26/24 11/27/24 11/27/24 18:59 06:59 18:59 Output Total 200 600 Balance -200 -600 Output: Urine 200 600 Other: Voiding Method Urinal Urinal Urinal Incontinent Incontinent Incontinent # Voids 3 - Exam GENERAL EXAM: Alert, 84-year-old white male, laying on his left side, hard of hearing, fairly comfortable in no apparent distress. Patient is currently on 2 L of oxygen nasal cannula HEAD: Normocephalic and atraumatic EYES: Normal reaction of pupils, equal size. NOSE: Clear with pink turbinates. THROAT: No erythema or exudates. NECK: No masses, no JVD. CHEST: No chest wall deformity. LUNGS: Equal air entry with bilateral rhonchi. Improved air entry bilaterally the patient is much less bronchospastic and wheezy. No conversational dyspnea or accessory muscle use. CVS: S1 and S2 normal with no audible murmur, irregular rhythm. No extra heart sounds ABDOMEN: No hepatosplenomegaly, active bowel sounds, no guarding or rigidity. SPINE: No scoliosis or deformity SKIN: No rashes. Right hip incision is approximated, without any erythema, warmth, drainage or wound dehiscence CENTRAL NERVOUS SYSTEM: No focal deficits, tone is normal in all 4 extremities. EXTREMITIES: There is no peripheral edema, clubbing, or cyanosis. Peripheral p ulses are intact. - Labs CBC & Chem 7: 11/27/24 05:26 11/27/24 05:26 Labs: Abnormal Lab Results - Last 24 Hours (Table) 11/27/24 11/27/24 Range/Units 05:26 05:26 RBC 4.28 L (4.40-5.60) X 10*6/uL Hgb 12.0 L (13.0-17.0) g/dL Hct 37.2 L (39.6-50.0) % Immature Gran # 0.08 H (0.00-0.04) X 10*3/uL Neutrophils # 8.18 H (1.80-7.70) X 10*3/uL Lymphocytes # 0.42 L (0.90-5.00) X 10*3/uL Eosinophils # 0 L (0.04-0.35) X 10*3/uL Sodium 133 L (137-145) mmol/L BUN 38 H (9-20) mg/dL Glucose 141 H (74-99) mg/dL Total Protein 5.8 L (6.3-8.2) g/dL Albumin 3.4 L (3.5-5.0) g/dL Microbiology - Last 24 Hours (Table) 11/25/24 03:10 Blood Culture Gram Stain - Preliminary Blood Blood Culture - Preliminary Presumptive MRSA Coagulase Negative Staph Molecular ID Assessment and Plan Assessment: Acute exacerbation of chronic COPD with secondary shortness of breath, Started on a combination of bronchodilators and steroids and the patient is feeling less short of breath compared to yesterday Acute hypoxic respiratory failure currently on 2 L oxygen by nasal cannula. est x-ray is revealing cardiomegaly with mild pulm vessel congestion and some atelectatic changes right lung base, pneumonia is doubtful Staph aureus/coagulase-negative staph bacteremia, under investigation. Rule out contaminant versus true infection. Afebrile the patient has some mild leukocytosis. Surgical site over the right hip area is dry clean and intact. Procalcitonin level is is at 0.32 and the patient is leukocytosis improving. Recent right direct anterior total hip arthroplasty, October 25, 2024, discharged to [facility] for rehab Chronic systolic heart failure and Echocardiogram from 11/26/2024 shows left- ventricular ejection fraction of 40 to 45%, mildly impaired without any significant wall motion abnormalities and there is also mild aortic regurgitation. Atrial fibrillation with rapid ventricular response, anticoagulated on Xarelto, the patient is currently on a combination of Cardizem and metoprolol Acute kidney injury, improving History of hypertension History of hyperlipidemia History of factor VIII deficiency History of BPH History of nephrolithiasis and previous ureteral stent placement History of frequent urinary tract infections Plan: Titrate oxygen flow to maintain saturation above 90%, currently on 2 L Continue Symbicort Continue DuoNeb updrafts Continue IV Solu-Medrol Awaiting final blood cultures and the patient remains on IV vancomycin White cell count is improving Renal function is improving Continue anticoagulation with Xarelto Patient is on metoprolol 100 mg p.o. twice a day and the patient was also started on Cardizem Echocardiogram was noted ID is on the case Cardiology on the case Will continue to follow
[2024-11-28] MEDS: HYDROcodone/APAP 5-325MG 1 EACH TAB PO PRN (00:47)
[2024-11-28 04:28] LABS: ALT 20 U/L (4-49); AST 28 U/L (17-59); African American GFR (CKD) 70 (>60 ml/min/1.73 sqM); Albumin 3.6 g/dL (3.5-5.0); Albumin/Globulin Ratio 1.4; Alkaline Phosphatase 113 U/L (38-126); Anion Gap 12 mmol/L; Blood Urea Nitrogen 42 mg/dL (9-20); Calcium 9.2 mg/dL (8.4-10.2); Carbon Dioxide 19 mmol/L (22-30); Chloride 104 mmol/L (98-107); Globulin 2.5 g/dL; Glucose 131 mg/dL (74-99); Non-African American GFR(CKD) 61 (>60 ml/min/1.73 sqM); Potassium 4.3 mmol/L (3.5-5.1); Sodium 135 mmol/L (137-145); Total Bilirubin 0.5 mg/dL (0.2-1.3); Total Protein 6.1 g/dL (6.3-8.2)
[2024-11-28 09:03] LABS: Basophils # (A) 0.03 X 10*3/uL (0.00-0.10); Basophils % (A) 0.1 %; Eosinophils # (A) 0.02 X 10*3/uL (0.04-0.35); Eosinophils % (A) 0.1 %; HGB 12.3 g/dL (13.0-17.0); Lymphocytes # (A) 0.44 X 10*3/uL (0.90-5.00); Lymphocytes % (A) 2.2 %; MCHC 31.5 g/dL (32.0-37.0); MCV 88.8 FL (80.0-97.0); Mean Platelet Volume 10.7 FL (9.5-12.2); Monocytes # (A) 0.56 X 10*3/uL (0.20-1.00); Monocytes % (A) 2.8 %; NRBC Per 100 WBC 0.02 X 10*3/uL (0.00-0.01); Neutrophils # (A) 18.86 X 10*3/uL (1.80-7.70); Platelet Count 277 X 10*3/uL (140-440); RBC 4.39 X 10*6/uL (4.40-5.60); RDW 14.5 % (11.5-14.5); WBC 20.08 X 10*3/uL (4.50-10.00)
--- NOTE | 2024-11-28 13:02 | P.PN ---
Subjective Progress Note Date: 11/27/24 Principal diagnosis: Reason for follow-up is MRSA bacteremia/pneumonia Patient is an 84-year-old male with a past medical history significant for diabetes mellitus hypertension hyperlipidemia osteoarthritis pneumonia atrial fibrillation patient has been brought into the hospital from the local halfway concerning for increasing shortness of breath and the patient was found to be hypoxic, patient also have a positive blood culture with MRSA prompting this consultation. On today's evaluation that is 11/27/2024,the patient denies any fever or any chills, patient is breathing slightly comfortably on 2 L nasal cannula oxygen, the patient denies chest pain shortness of breath and no worsening cough, patient denies abdominal pain, no nausea vomiting or diarrhea. Patient white count is 8.92, creatinine 1.20 blood culture with MRSA repeat blood culture currently pending Objective - Vital Signs Vital signs: Vital Signs Temp 97.5 F L 11/27/24 07:36 Pulse 96 11/27/24 11:41 Resp 18 11/27/24 08:00 BP 107/72 11/27/24 07:36 Pulse Ox 90 L 11/27/24 07:36 FiO2 Intake & Output 11/26/24 11/27/24 11/27/24 18:59 06:59 18:59 Output Total 200 600 Balance -200 -600 Output: Urine 200 600 Other: Voiding Method Urinal Urinal Urinal Incontinent Incontinent Incontinent # Voids 3 - Exam GENERAL DESCRIPTION: An elderly male up in the chair in no distress RESPIRATORY SYSTEM: Unlabored breathing , decreased breath sounds at bases HEART: S1 S2 regular rate and rhythm , ABDOMEN: Soft , no tenderness EXTREMITIES: Trace edema feet - Labs CBC & Chem 7: 11/28/24 03:42 11/28/24 03:42 Labs: Abnormal Lab Results - Last 24 Hours (Table) 11/27/24 11/27/24 Range/Units 05:26 05:26 RBC 4.28 L (4.40-5.60) X 10*6/uL Hgb 12.0 L (13.0-17.0) g/dL Hct 37.2 L (39.6-50.0) % Immature Gran # 0.08 H (0.00-0.04) X 10*3/uL Neutrophils # 8.18 H (1.80-7.70) X 10*3/uL Lymphocytes # 0.42 L (0.90-5.00) X 10*3/uL Eosinophils # 0 L (0.04-0.35) X 10*3/uL Sodium 133 L (137-145) mmol/L BUN 38 H (9-20) mg/dL Glucose 141 H (74-99) mg/dL Total Protein 5.8 L (6.3-8.2) g/dL Albumin 3.4 L (3.5-5.0) g/dL Microbiology - Last 24 Hours (Table) 11/25/24 03:10 Blood Culture Gram Stain - Preliminary Blood Blood Culture - Preliminary Presumptive MRSA Coagulase Negative Staph Molecular ID Assessment and Plan (1) Sepsis Current Visit: Yes Status: Acute Code(s): A41.9 - SEPSIS, UNSPECIFIED ORGANISM SNOMED Code(s): 86282981 (2) MRSA bacteremia Current Visit: Yes Status: Acute Code(s): R78.81 - BACTEREMIA; B95.62 - METHICILLIN RESIS STAPH INFCT CAUSING DISEASES [facility] SNOMED Code(s): 06519433243710108 (3) Pneumonia Current Visit: Yes Status: Acute Code(s): J18.9 - PNEUMONIA, UNSPECIFIED ORGANISM SNOMED Code(s): 603206782 Plan: 1patient presented to hospital with sepsis in this patient who did have low-gr vipin fever tachycardia elevated white count meeting criteria for SIRS/sepsis source likely pneumonia right lower lobe in this patient who is a halfway resident concern for resistant gram-positive/gram-negative 2-patient with MRSA bacteremia source likely pneumonia, blood cultures has been repeated document clearance of bacteremia 3patient to continue with vancomycin pharmacy to dose target trough of 15 while watching kidney function and Vanco trough closely Dictation was produced using GTRAN dictation software. please excuse any grammatical, word or spelling errors.
--- NOTE | 2024-11-28 13:03 | P.PN ---
Subjective Progress Note Date: 11/28/24 Principal diagnosis: Reason for follow-up is MRSA bacteremia/pneumonia Patient is an 84-year-old male with a past medical history significant for diabetes mellitus hypertension hyperlipidemia osteoarthritis pneumonia atrial fibrillation patient has been brought into the hospital from the local custodial concerning for increasing shortness of breath and the patient was found to be hypoxic, patient also have a positive blood culture with MRSA prompting this consultation. On today's evaluation that is 11/28/2024,the patient remains to be afebrile, patient is on 2 L nasal cannula supplemental oxygen and complaining of more shortness of breath especially when he lies down he denies any chest pain or any worsening cough no nausea vomiting abdominal pain or diarrhea. Patient white count is up to 20.08, creatinine is 1.13 blood and sputum culture repeated currently pending Objective - Vital Signs Vital signs: Vital Signs Temp 98.5 F 11/28/24 07:16 Pulse 104 H 11/28/24 12:17 Resp 18 11/28/24 08:00 BP 96/63 11/28/24 07:16 Pulse Ox 96 11/28/24 09:43 FiO2 Intake & Output 11/27/24 11/28/24 11/28/24 18:59 06:59 18:59 Intake Total 1200 Output Total 675 400 Balance 525 -400 Intake: Oral 1200 Output: Urine 675 400 Other: Voiding Method Urinal Urinal Urinal Incontinent Incontinent Incontinent - Exam GENERAL DESCRIPTION: An elderly male up in the chair in no distress RESPIRATORY SYSTEM: Unlabored breathing , decreased breath sounds at bases HEART: S1 S2 regular rate and rhythm , ABDOMEN: Soft , no tenderness EXTREMITIES: Trace edema feet - Labs CBC & Chem 7: 11/28/24 03:42 11/28/24 03:42 Labs: Abnormal Lab Results - Last 24 Hours (Table) 11/28/24 11/28/24 Range/Units 03:42 03:42 WBC 20.08 H (4.50-10.00) X 10*3/uL RBC 4.39 L (4.40-5.60) X 10*6/uL Hgb 12.3 L (13.0-17.0) g/dL Hct 39.0 L (39.6-50.0) % MCHC 31.5 L (32.0-37.0) g/dL Immature Gran # 0.17 H (0.00-0.04) X 10*3/uL Neutrophils # 18.86 H (1.80-7.70) X 10*3/uL Lymphocytes # 0.44 L (0.90-5.00) X 10*3/uL Eosinophils # 0.02 L (0.04-0.35) X 10*3/uL NRBC/100 WBC Diff 0.02 H (0.00-0.01) X 10*3/uL Sodium 135 L (137-145) mmol/L Carbon Dioxide 19 L (22-30) mmol/L BUN 42 H (9-20) mg/dL Glucose 131 H (74-99) mg/dL Total Protein 6.1 L (6.3-8.2) g/dL Microbiology - Last 24 Hours (Table) 11/27/24 05:20 Blood Culture - Preliminary Blood 11/25/24 03:10 Blood Culture Gram Stain - Final Blood Blood Culture - Final Methicillin resist S. aureus Coagulase Negative Staph Molecular ID Assessment and Plan (1) Sepsis Current Visit: Yes Status: Acute Code(s): A41.9 - SEPSIS, UNSPECIFIED ORGAN ISM SNOMED Code(s): 98051616 (2) MRSA bacteremia Current Visit: Yes Status: Acute Code(s): R78.81 - BACTEREMIA; B95.62 - METHICILLIN RESIS STAPH INFCT CAUSING DISEASES CLASSD [facility] SNOMED Code(s): 23075576913289482 (3) Pneumonia Current Visit: Yes Status: Acute Code(s): J18.9 - PNEUMONIA, UNSPECIFIED ORGANISM SNOMED Code(s): 217987779 Plan: 1patient presented to hospital with sepsis in this patient who did have low- grade fever tachycardia elevated white count meeting criteria for SIRS/sepsis source likely pneumonia right lower lobe in this patient who is a custodial resident concern for resistant gram-positive/gram-negative 2-patient with MRSA bacteremia source likely pneumonia, blood cultures has been repeated currently pending sputum culture has been obtained results are curre ntly pending 3patient did have slight worsening of the white count likely related to steroids need to be monitored closely and for now we will treat with vancomycin pharmacy to dose target trough of 15 while watching kidney function and Vanco trough closely Dictation was produced using Acucelaation software. please excuse any grammatical, word or spelling errors. Time with Patient: Less than 30
--- NOTE | 2024-11-28 14:08 | CDI ---
Documentation Clarification Form Date: 11/28/2024 01:30:48 PM From: Evleine Roe RN CCDS Phone: [phone] Admit Date: 11/25/2024 05:16:00 AM Patient Name: Yaw Brennan Visit Number: [id number] Discharge Date: ATTENTION: The Clinical Documentation Specialists (CDI) and [facility] Coding Staff appreciate your assistance in clarifying documentation. Please respond to the clarification below the line at the bottom and electronically sign. The CDI & [facility] Coding staff will review the response and follow-up if needed. Please note: Queries are made part of the Legal Health Record. If you have any questions, please contact the author of this message via ITS. Dr: Buzz Zimmerman Sepsis is documented in the ID consult 11/26. Based on this information and the findings below, is there an additional diagnosis that is clinically appropriate for this patient? History/Risk Factors: 84 year old Male presents to the ED from [facility] for dyspnea found to be hypoxic after coming back from the bathroom pulse ox 80%. Recent discharge from hospital. Medical History: COPD, PAfib, HTN, HLD, CAD and BPH. 11/25, HP. Clinical Indicators: WBC, 11/25: 17.0 Neutrophils, 11/25: 15.2 Blood cultures: 11/25: MRSA Coagulase Negative Staph Molecular ID 11/27: No growth after 24 hours verified on 11/28/2024 Vitals signs: 11/25: B/P 102/77, HR 108, 20, Temp 99.3F oral SpO2 97% 15 L Non Rebreather Treatment: ID Consult, 11/26: Patient presented to hospital with sepsis in this paitent who did have a low grade fever tachycardia elevated white count meeting criteria for SIRS/sepsis source likely pneumonia right lower lobe in this patient who is a intermediate resident concern for gram positive / gram negative. Antibiotics: 11/26 Vancomycin IVPB, Q24H; 11/26 11/26 Cefepime IVPB Q12H x 2 doses. Is there an additional diagnosis that is clinically appropriate for this patient? [ x ] Sepsis, secondary to bacteremia and pneumonia [ ] Sepsis, secondary to pneumonia [ ] Sepsis ruled out [ ] Other, please specify [ ] Unable to determine SIRS Criteria: 2 or more of the following may indicate SIRS Temperature < 96.8F (36C) or > 101.0F (38.3C) Heart Rate > 90 bpm Respiratory Rate > 20 breaths/min or PaCO2 < 32 mmHg White Blood Cell Count > 12,000 or < 4,000 cells/mm3 or > 10% bands (Template Last Reviewed: November 2022) MTDD
[2024-11-28] MEDS: DILTIAZEM 125 MG in SODIUM CHLORIDE 0.9% 100 ML IV SCH (15:33)
--- NOTE | 2024-11-28 17:23 | P.PN ---
Subjective Progress Note Date: 11/28/24 Patient is an 84-year-old male with past medical history significant for hypertension, atrial fibrillation anticoagulated on Xarelto, hyperlipidemia, asthma/COPD. Of note, recently underwent right total hip arthroplasty on October 25, 2024, and was discharged to [facility] for rehab. While at the [facility], was noted to be getting up to the bathroom and was in acute respiratory distress. He was noted to be hypoxic with an SpO2 in the low 80s. Transferred to [facility] ED for evaluation early yesterday morning. Workup in the ED including a chest x-ray possible right lower lobe airspace opacity with the right lateral lung excluded from the film. Originally started on antibiotics in the ED for possible pneumonia. Blood cultures were positive for MRSA. Patient's antibiotics have since been adjusted to vancomycin and cefepime. Highest recorded temperature 99.8 F. Has been tachycardic. Right hip incision is approximated without any erythema, warmth, drainage, or wound de hiscence no. No significant pain out of proportion. He has been ambulating with walker. CBC: WBC count 17, hemoglobin 13.6, platelets 299. CMP: Sodium 136, potassium 4.6, chloride 100, serum bicarb 27, BUN 38, creatinine 1.49, glucose 139. Lactic was 1.6. NT proBNP 1170. EKG: Atrial fibrillation with rapid ventricular response, 108 bpm, RBB pattern. Negative for influenza, RSV, COVID. Currently being evaluated on the general medical floor. He is alert but overall poor historian. He is hard of hearing. He is on 3 L/min nasal cannula, SpO2 is 95%. He denies any significant respiratory distress. Has a congested cough. Current vitals: Temperature 98.4 F, heart rate 107 bpm, blood pressure 103/57 mmHg, nontachypneic, SpO2 95% on 3 L/min nasal cannula. On 11/27/2024, the patient is being seen for a follow-up. Less short of breath compared to yesterday. Markedly improved and less bronchospastic and wheezy. Remains on Symbicort as maintenance and DuoNeb nebulized treatments [id number]. Remains on IV Solu-Medrol 60 mg every 6 hours. Rest of the medications are essentially unchanged. Labs from today show a white cell count of 8 with a hemoglobin 12 and a platelet count of 231. Sodium levels at 133, BUN 38 and a creatinine is 1.2. proBNP level was 1170. Troponins were negative. Procalcitonin level was at 0.32. The blood culture is presumptive MRSA and coagulase negative staph and the patient remains on vancomycin. No clear source for the underlying infection. The patient is also known to be in chronic atrial fibrillation. Puppet Master on the case. Maintained on metoprolol 100 mg p.o. twice a day. Maintained also on Cardizem 30 mg p.o. 3 times daily for rate control and the patient is also on anticoagulation with Xarelto and dose modification was done as the patient's renal function improved and the creatinine is down from 1.49 down to 1.2. Patient is also being seen by infectious disease regarding the bacteremia with MRSA/coagulase-negative staph. Reviewed the chest x-ray and there is some cardiomegaly. Increased interstitial changes in the lung bases. Pneumonia is doubtful. Currently on 2 L of oxygen by nasal cannula. Echocardiogram from 11/26/2024 shows left-ventricular ejection fraction of 40 to 45%, mildly impaired without any significant wall motion abnormalities and there is also mild aortic regurgitation. On 11/28/2024, the patient is being seen for a follow-up. The patient was seen earlier this morning and the patient was feeling better. He is still having some coughing spells. Nevertheless, he is less bronchospastic and wheezy. Of concern is a positive blood culture with MRSA and coagulase-negative staph. Blood work from today shows a white cell count of 20 with a hemoglobin 12.3 and a platelet count of 277. His BUN is 42 with a creatinine of 1.1. Serum bicarb is down to 19 and sodium levels at 135. His procalcitonin level is at 0.32. The patient is communicating. He is afebrile. Denies having any nausea vomiting or diarrhea. No other new complaints for now. He is antibiotic coverage includes vancomycin. He remains on bronchodilators. He remains on Symbicort. He remains on IV Solu-Medrol. Long-term anticoagulation is with Xarelto. Objective - Vital Signs Vital signs: Vital Signs Temp 98.5 F 11/28/24 07:16 Pulse 100 11/28/24 09:54 Resp 18 11/28/24 08:00 BP 96/63 11/28/24 07:16 Pulse Ox 96 11/28/24 09:43 FiO2 Intake & Output 11/27/24 11/28/24 11/28/24 18:59 06:59 18:59 Intake Total 1200 Output Total 675 400 Balance 525 -400 Intake: Oral 1200 Output: Urine 675 400 Other: Voiding Method Urinal Urinal Urinal Incontinent Incontinent Incontinent - Exam GENERAL EXAM: Alert, 84-year-old white male, laying on his left side, hard of hearing, fairly comfortable in no apparent distress. Patient is currently on 2 L of oxygen nasal cannula HEAD: Normocephalic and atraumatic EYES: Normal reaction of pupils, equal size. NOSE: Clear with pink turbinates. THROAT: No erythema or exudates. NECK: No masses, no JVD. CHEST: No chest wall deformity. LUNGS: Equal air entry with bilateral rhonchi. Improved air entry bilaterally the patient is much less bronchospastic and wheezy. No conversational dyspnea or accessory muscle use. CVS: S1 and S2 normal with no audible murmur, irregular rhythm. No extra heart sounds ABDOMEN: No hepatosplenomegaly, active bowel sounds, no guarding or rigidity. SPINE: No scoliosis or deformity SKIN: No rashes. Right hip incision is approximated, without any erythema, warm th, drainage or wound dehiscence CENTRAL NERVOUS SYSTEM: No focal deficits, tone is normal in all 4 extremities. EXTREMITIES: There is no peripheral edema, clubbing, or cyanosis. Peripheral pulses are intact. - Labs CBC & Chem 7: 11/28/24 03:42 11/28/24 03:42 Labs: Abnormal Lab Results - Last 24 Hours (Table) 11/28/24 11/28/24 Range/Units 03:42 03:42 WBC 20.08 H (4.50-10.00) X 10*3/uL RBC 4.39 L (4.40-5.60) X 10*6/uL Hgb 12.3 L (13.0-17.0) g/dL Hct 39.0 L (39.6-50.0) % MCHC 31.5 L (32.0-37.0) g/dL Immature Gran # 0.17 H (0.00-0.04) X 10*3/uL Neutrophils # 18.86 H (1.80-7.70) X 10*3/uL Lymphocytes # 0.44 L (0.90-5.00) X 10*3/uL Eosinophils # 0.02 L (0.04-0.35) X 10*3/uL NRBC/100 WBC Diff 0.02 H (0.00-0.01) X 10*3/uL Sodium 135 L (137-145) mmol/L Carbon Dioxide 19 L (22-30) mmol/L BUN 42 H (9-20) mg/dL Glucose 131 H (74-99) mg/dL Total Protein 6.1 L (6.3-8.2) g/dL Microbiology - Last 24 Hours (Table) 11/25/24 03:10 Blood Culture Gram Stain - Final Blood Blood Culture - Final Methicillin resist S. aureus Coagulase Negative Staph Molecular ID Assessment and Plan Assessment: Acute exacerbation of chronic COPD with secondary shortness of breath, maintained on a combination of bronchodilators and steroids. Last bronchospa stic and wheezy. Continues to have coughing spells. Acute hypoxic respiratory failure currently on 2 L oxygen by nasal cannula. Chest x-ray is revealing cardiomegaly with mild pulm vessel congestion and some atelectatic changes right lung base, pneumonia is doubtful Staphylococcal sepsis and blood cultures positive for MRSA and coagulase- negative staph. The white cell count is elevated procalcitonin level is is at 0.32 Recent right direct anterior total hip arthroplasty, October 25, 2024, [facility] Chronic systolic heart failure and Echocardiogram from 11/26/2024 shows left- ventricular ejection fraction of 40 to 45%, mildly impaired without any significant wall motion abnormalities and there is also mild aortic regurgitation. Atrial fibrillation with rapid ventricular response, anticoagulated on Xarelto, the patient is currently on a combination of Cardizem and metoprolol Acute kidney injury, improving History of hypertension History of hyperlipidemia History of factor VIII deficiency History of BPH History of nephrolithiasis and previous ureteral stent placement History of frequent urinary tract infections Plan: Titrate oxygen flow to maintain saturation above 90%, currently on 2 L Continue Symbicort Continue DuoNeb updrafts Continue IV Solu-Medrol Continue V vancomycin White cell count is still elevated Renal function is improving Continue anticoagulation with Xarelto Patient is on metoprolol 100 mg p.o. twice a day and Cardizem Echocardiogram was noted ID is on the case Cardiology on the case Will continue to follow
--- NOTE | 2024-11-28 23:48 | P.PN ---
Subjective Progress Note Date: 11/28/24 HISTORY OF PRESENT ILLNESS This is a 84-year-old male with past medical history of hypertension, paroxysmal atrial fibrillation on Xarelto, benign prostatic hypertrophy, hiatal hernia, hereditary factor VIII deficiency, hyperlipidemia, mild intermittent asthma, mild COPD, patient was recently admitted to [facility] after he underwent right total hip arthroplasty that was done by Dr. Thakkar and he has been at [facility] for physical therapy rehabilitation, patient developed to have a significant cough yellow phlegm production as well as shortness of breath over the last 2 days, yesterday I received a call from the nursing staff stating that the patient is having dry cough, he was placed on Tessalon Perles 200 mg orally 3 times every day, however the patient became quite hypoxemic, with oxygenation in the range of 84 to 85% he was placed on nonrebreather, he was sent to the ER for evaluation he had a chest x-ray that showed right lower lobe pneumonia, he was started on IV antibiotic in the form of Rocephin and Zithromax he was admitted to the hospital with pulmonary consultation, antibiotics were further discontinued and he was started on va ncomycin and cefepime since blood cultures did show evidence of MRSA. 11/26: Patient is laying down in bed in no apparent distress, he continues to have A-fib with RVR his heart rate is running between 115 and 135 cardiology was consulted, metoprolol was increased to 100 mg orally twice every day, continue treatment plan, pulmonary consultation still pending, cardiology consultation still pending, patient blood culture showed evidence of MRSA, he was switched to vancomycin as well as cefepime, await ID input, echocardiogram will be obtained. 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 1/9: Patient is sitting up in the chair continues to be somewhat short of breath, his monitor showing atrial fibrillation with rapid response, cardiology reconsulted, the patient was moved to telemetry unit, he was started on Cardizem drip at 5 mg an hour, he has been maintained on metoprolol 100 mg orally twice every day, repeated blood culture from November 27, 2024 still pending at the time of dictation, patient continues to be on vancomycin for MRSA bacteremia that is likely related to possible MRSA pneumonia. Sputum culture still pending at time of dictation. Patient will be seen in consultation by physical therapy, the plan for the patient to either go back to [facility] or going home from here. PHYSICAL EXAMINATION Gen: This is an obese 84-year-old male, resting in bed, appears to be in minimal respiratory distress. HEENT: Head is atraumatic, normocephalic. Pupils equal, round. Sclerae is anicteric. NECK: Supple. No JVD. No lymphadenopathy. No thyromegaly. LUNGS: decreased breath sound at bases, few rhonchi minimal expiratory wheezes no chest wall tenderness no intercostal retractions HEART: First heart sound is depressed, second heart sound is normal, 2/6 systolic ejection murmur at the left sternal border, irregular irregular due to atrial fibrillation. ABDOMEN: Soft. Bowel sounds are present. No masses. No tenderness. EXTREMITIES: +1 pedal edema. No calf tenderness. Pain in the left hip. Dorsal is pedis palpable bilaterally. NEUROLOGICAL: Patient is awake, alert and oriented x3. Cranial nerves 2 through 12 are grossly intact, muscle power 4/5 upper and lower extremities bilaterally ASSESSMENT AND PLAN 1. Right lower lobe pneumonia with MRSA bacteremia likely MRSA pneumonia. Continue patient on vancomycin pharmacy to dose its peak and trough, shoot for a trough of 15 per ID recommendation, continue to monitor the patient very closely, continue oxygen support, continue nebulized treatment, follow-up with the patient very closely, sputum culture was sent still pending. Repeat the blood culture from November 27, 2024 still pending. 2. Atrial fibrillation with rapid ventricular response. Increase metoprolol to 100 mg orally twice every day, continue Xarelto 15 mg orally once every day, cardiology consultation. Patient was switched to Cardizem drip at 5 mg an hour he was moved to telemetry 9. 3. 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 Continue metoprolol 100 mg orally twice every day, monitor the patient's symptoms very closely continue Farxiga 10 mg orally once every day, continue Lasix 40 mg orally twice daily with potassium supplements 4. COPD with mild exacerbation. Continue patient on DuoNeb 3 mL nebulization 4 times every day, Symbicort 804 0.5 g 2 puffs twice daily, oxygen support continue Solu-Medrol 1 mg IV push every 8 hours 5. Mild intermittent asthma. Continue Singulair 10 mg at bedtime, loratadine 10 mg once daily, albuterol nebulizer treatments every 4 hours as needed. 6. Benign prostatic hypertrophy. Continue Flomax 0.4 mg at bedtime, monitor for urinary retention. 7. Hereditary factor VIII deficiency. Continue Xarelto 15 mg once a day. 8. Mixed hyperlipidemia. Continue Zetia 10 mg daily and Atorvastatin 40 mg once a day. Monitor the patient lipid panel, keep LDL 55-70 9. Hypertension and hypertensive cardiovascular disease. Continue metoprolol 100 mg orally twice every day. 10. GI prophylaxis. Continue patient on Protonix 40 mg po daily. 11. DVT prophylaxis. Continue Xarelto 15 mg once every day 12. Major depressive disorder. Continue patient on Effexor XR 37.5 mg orally once every day. 13. Physical therapy evaluation. 14. 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 15. Full code. Objective - Vital Signs Vital signs: Vital Signs Temp 97.7 F 11/28/24 20:33 Pulse 100 11/28/24 22:03 Resp 20 11/28/24 20:33 BP 128/84 11/28/24 20:33 Pulse Ox 93 L 11/28/24 20:33 FiO2 Intake & Output 11/28/24 11/28/24 11/29/24 06:59 18:59 06:59 Intake Total 480 Output Total 400 Balance -400 480 Intake: Oral 480 Output: Urine 400 Other: Voiding Method Urinal Urinal Urinal Incontinent # Voids 1 - Labs CBC & Chem 7: 11/28/24 03:42 11/28/24 03:42 Labs: Abnormal Lab Results - Last 24 Hours (Table) 11/28/24 11/28/24 Range/Units 03:42 03:42 WBC 20.08 H (4.50-10.00) X 10*3/uL RBC 4.39 L (4.40-5.60) X 10*6/uL Hgb 12.3 L (13.0-17.0) g/dL Hct 39.0 L (39.6-50.0) % MCHC 31.5 L (32.0-37.0) g/dL Immature Gran # 0.17 H (0.00-0.04) X 10*3/uL Neutrophils # 18.86 H (1.80-7.70) X 10*3/uL Lymphocytes # 0.44 L (0.90-5.00) X 10*3/uL Eosinophils # 0.02 L (0.04-0.35) X 10*3/uL NRBC/100 WBC Diff 0.02 H (0.00-0.01) X 10*3/uL Sodium 135 L (137-145) mmol/L Carbon Dioxide 19 L (22-30) mmol/L BUN 42 H (9-20) mg/dL Glucose 131 H (74-99) mg/dL Total Protein 6.1 L (6.3-8.2) g/dL Microbiology - Last 24 Hours (Table) 11/27/24 05:20 Blood Culture - Preliminary Blood 11/25/24 03:10 Blood Culture Gram Stain - Final Blood Blood Culture - Final Methicillin resist S. aureus Coagulase Negative Staph Molecular ID
[2024-11-29] MEDS: methylPREDNISolone SOD SUCCI 40 MG/ML 1 ML VIAL IV SCH ×3 (00:38→21:19)
[2024-11-29 05:46] LABS: Basophils % (A) 0 %; Eosinophils # (A) 0.1 k/uL (0-0.7); Eosinophils % (A) 0 %; HCT 36.5 % (39.0-53.0); HGB 11.5 gm/dL (13.0-17.5); Hypochromasia Moderate; Lymphocytes # (A) 0.4 k/uL (1.0-4.8); Lymphocytes % (A) 2 %; MCH 28.3 pg (25.0-35.0); MCHC 31.6 g/dL (31.0-37.0); MCV 89.4 fL (80.0-100.0); Mean Platelet Volume 7.3; Monocytes # (A) 0.6 k/uL (0-1.0); Monocytes % (A) 4 %; Neutrophils # (A) 14.8 k/uL (1.3-7.7); Neutrophils % (A) 93 %; Platelet Count 266 k/uL (150-450); RBC 4.08 m/uL (4.30-5.90); RDW 14.5 % (11.5-15.5); WBC 15.9 k/uL (3.8-10.6)
[2024-11-29 06:01] LABS: ALT 21 U/L (4-49); AST 28 U/L (17-59); African American GFR (CKD) 59 (>60 ml/min/1.73 sqM); Albumin 3.3 g/dL (3.5-5.0); Alkaline Phosphatase 104 U/L (38-126); Anion Gap 7 mmol/L; Blood Urea Nitrogen 45 mg/dL (9-20); Calcium 9.2 mg/dL (8.4-10.2); Carbon Dioxide 25 mmol/L (22-30); Chloride 106 mmol/L (98-107); Glucose 119 mg/dL (74-99); Non-African American GFR(CKD) 51 (>60 ml/min/1.73 sqM); Potassium 4.7 mmol/L (3.5-5.1); Sodium 138 mmol/L (137-145); Total Bilirubin 0.3 mg/dL (0.2-1.3); Total Protein 5.5 g/dL (6.3-8.2)
[2024-11-29] MEDS: VANCOMYCIN TROUGH DUE 1 EACH MISC MISCELLANE ONE (07:19)
[2024-11-29] MEDS: METOPROLOL TARTRATE 50 MG TAB PO STA (11:30)
--- NOTE | 2024-11-29 12:25 | P.PN ---
Subjective Progress Note Date: 11/29/24 History of present illness: This is an 84-year-old male patient of Dr. Davis with past medical history of chronic permanent atrial fibrillation on Xarelto, hypertension, peripheral vascular disease, family history of premature coronary artery disease, history of tobacco use and dependence, multivessel CAD, mixed hyperlipidemia, ischemic cardiomyopathy. We have been asked to evaluate the patient for A-fib with RVR. Patient's son states that he received a call from [facility] where patient is receiving subacute rehab that his pulse ox had dropped down to 80%. Patient also had congestion and a deep raspy cough. Patient denies having chest pain, no palpitations. Patient was admitted to the hospital and treated for right lower lobe pneumonia and MRSA bacteremia, A-fib with RVR, chronic diastolic heart failure, COPD with mild exacerbation as well as mild intermittent asthma. Patient was found to have A-fib with RVR with heart rate in the 120s to 150s this morning. Attending has increased his Lopressor to 100 mg twice daily from 75 mg twice daily. Heart rate is better controlled at the time of evaluation. Blood pressure 107/62, heart rate 100-112, pulse ox 95% on 2 L nasal cannula. -EKG: Atrial fibrillation with ventricular rate of 108 -Chest x-ray: #1 partial visualization of likely right lower lobe pneumonia. #2 similar mild to moderate cardiomegaly. Similar interstitial density correlate to include mild pulmonary vascular congestion. Patchy interstitial opacities remain in the lower lungs right greater than left. -Laboratory studies: WBC 17, hemoglobin 13.6, INR 1.3, BUN 38, creatinine 1.49, potassium 4.6, troponin negative x 1. proBNP 1170. Alkaline phosphatase 139. Influenza A, influenza B, RSV, COVID-19 not detected. -Home cardiac medications: Atorvastatin 40 mg at bedtime, Farxiga 10 mg daily, Zetia 10 mg daily, Lasix 40 mg twice daily, metoprolol tartrate 75 mg twice daily, potassium chloride 20 mill equivalents daily, Xarelto 20 mg daily -Cardiac catheterization performed 09/19/2023 revealed 20% distal left main, 20% proximal LAD, 20% proximal circumflex, 20% mid RCA and right dominant. -Echocardiogram performed on 03/22/2024 in the office revealed EF 42% with mild , mild TR, mild AR. -Event monitor performed 01/25/2024 - 01/26/2024: Primary rhythm atrial fibrillation/flutter with average heart rate 93, minimal heart rate 69 and maximum heart rate 144. 100% burden of atrial fibrillation or flutter. PVC burden 0.08%. 1 episode of ventricular tachycardia 4 beats. Overall, atrial fibrillation with controlled ventricular rate. 11/27/2024 Patient seen and examined. Patient states that his shortness of breath and coughing are a lot better. He feels a lot better in general. Heart rate is running between 90 and 114, telemetry is atrial fibrillation. Blood pressure 107/72, pulse ox 90% on 2 L nasal cannula. Repeat blood work reveals WBC 8.9, hemoglobin 12, sodium 133, potassium 4.4, BUN 38 creatinine 1.2 Echocardiogram reveals EF 40 to 45%, limited views. Mild aortic regurgitation. 11/29/2024 Cardiology was reconsulted for atrial fibrillation. Echocardiogram does show EF of 40-45%. His heart rates are not well-controlled. He is out of bed in chair and feeling okay. His shortness of breath is better but he is not at baseline. Still with a cough. He does admit that he had prior cardioversion x 2 in the past and did feel better with this. Physical examination: Gen: This is an 84-year-old male in no acute distress. VS: reviewed HEENT: Head is atraumatic, normocephalic. Pupils equal, round. Sclerae is anicteric. NECK: Supple. No JVD. LUNGS: Bilateral rhonchi. No intercostal retractions. HEART: Irregular rate and rhythm. 2/6 systolic ejection murmur at the base. ABDOMEN: Soft No tenderness. EXTREMITIES: No pedal edema. No calf tenderness. NEUROLOGICAL: Patient is awake, alert and oriented x3. Assessment: Permanent atrial fibrillation on Xarelto with RVR Acute hypoxic respiratory failure with possible right pneumonia COPD exacerbation MRSA bacteremia Acute kidney injury, resolved Recent right total hip arthroplasty 10/25/2024 Hypertension Hyperlipidemia Multivessel mild coronary artery disease, nonobstructive, cardiac cath done 09/19/2023 Remote history of tobacco use Plan: Continue patient's home cardiac medications Continue increased dose of metoprolol metoprolol 150 mg twice daily Given low EF we will stop Cardizem. May consider cardioversion or antiarrhythmics as an outpatient for longer-term management of atrial fibrillation Further recommendations pending clinical course. Nurse practitioner note has been reviewed, I agree with documented findings and plan of care. Patient was seen and examined. Objective - Vital Signs Vital signs: Vital Signs Temp 97.4 F L 11/29/24 09:01 Pulse 100 11/29/24 11:33 Resp 17 11/29/24 11:32 BP 128/77 11/29/24 11:32 Pulse Ox 91 L 11/29/24 09:01 FiO2 Intake & Output 11/28/24 11/29/24 11/29/24 18:59 06:59 18:59 Intake Total 480 480 Output Total 725 Balance 480 -725 480 Weight 109 kg Intake: Oral 480 480 Output: Urine 725 Other: Voiding Method Urinal Urinal Urinal # Voids 1 3 - Labs CBC & Chem 7: 11/29/24 05:26 11/29/24 05:26 Labs: Abnormal Lab Results - Last 24 Hours (Table) 11/29/24 11/29/24 Range/Units 05:26 05:26 WBC 15.9 H (3.8-10.6) k/uL RBC 4.08 L (4.30-5.90) m/uL Hgb 11.5 L (13.0-17.5) gm/dL Hct 36.5 L (39.0-53.0) % Neutrophils # 14.8 H (1.3-7.7) k/uL Lymphocytes # 0.4 L (1.0-4.8) k/uL BUN 45 H (9-20) mg/dL Creatinine 1.29 H (0.66-1.25) mg/dL Glucose 119 H (74-99) mg/dL Total Protein 5.5 L (6.3-8.2) g/dL Albumin 3.3 L (3.5-5.0) g/dL Microbiology - Last 24 Hours (Table) 11/28/24 03:30 Gram Stain - Preliminary Sputum 11/27/24 05:20 Blood Culture - Preliminary Blood 11/25/24 03:10 Blood Culture Gram Stain - Final Blood Blood Culture - Final Methicillin resist S. aureus Coagulase Negative Staph Molecular ID
--- NOTE | 2024-11-29 15:29 | P.PN ---
Subjective Progress Note Date: 11/29/24 Patient is an 84-year-old male with past medical history significant for hypertension, atrial fibrillation anticoagulated on Xarelto, hyperlipidemia, asthma/COPD. Of note, recently underwent right total hip arthroplasty on October 25, 2024, and was discharged to [facility] for rehab. While at the [facility], was noted to be getting up to the bathroom and was in acute respiratory distress. He was noted to be hypoxic with an SpO2 in the low 80s. Transferred to [facility] ED for evaluation early yesterday morning. Workup in the ED including a chest x-ray possible right lower lobe airspace opacity with the right lateral lung excluded from the film. Originally started on antibiotics in the ED for possible pneumonia. Blood cultures were positive for MRSA. Patient's antibiotics have since been adjusted to vancomycin and cefepime. Highest recorded temperature 99.8 F. Has been tachycardic. Right hip incision is approximated without any erythema, warmth, drainage, or wound de hiscence no. No significant pain out of proportion. He has been ambulating with walker. CBC: WBC count 17, hemoglobin 13.6, platelets 299. CMP: Sodium 136, potassium 4.6, chloride 100, serum bicarb 27, BUN 38, creatinine 1.49, glucose 139. Lactic was 1.6. NT proBNP 1170. EKG: Atrial fibrillation with rapid ventricular response, 108 bpm, RBB pattern. Negative for influenza, RSV, COVID. Currently being evaluated on the general medical floor. He is alert but overall poor historian. He is hard of hearing. He is on 3 L/min nasal cannula, SpO2 is 95%. He denies any significant respiratory distress. Has a congested cough. Current vitals: Temperature 98.4 F, heart rate 107 bpm, blood pressure 103/57 mmHg, nontachypneic, SpO2 95% on 3 L/min nasal cannula. On 11/27/2024, the patient is being seen for a follow-up. Less short of breath compared to yesterday. Markedly improved and less bronchospastic and wheezy. Remains on Symbicort as maintenance and DuoNeb nebulized treatments [id number]. Remains on IV Solu-Medrol 60 mg every 6 hours. Rest of the medications are essentially unchanged. Labs from today show a white cell count of 8 with a hemoglobin 12 and a platelet count of 231. Sodium levels at 133, BUN 38 and a creatinine is 1.2. proBNP level was 1170. Troponins were negative. Procalcitonin level was at 0.32. The blood culture is presumptive MRSA and coagulase negative staph and the patient remains on vancomycin. No clear source for the underlying infection. The patient is also known to be in chronic atrial fibrillation. Brick Maker on the case. Maintained on metoprolol 100 mg p.o. twice a day. Maintained also on Cardizem 30 mg p.o. 3 times daily for rate control and the patient is also on anticoagulation with Xarelto and dose modification was done as the patient's renal function improved and the creatinine is down from 1.49 down to 1.2. Patient is also being seen by infectious disease regarding the bacteremia with MRSA/coagulase-negative staph. Reviewed the chest x-ray and there is some cardiomegaly. Increased interstitial changes in the lung bases. Pneumonia is doubtful. Currently on 2 L of oxygen by nasal cannula. Echocardiogram from 11/26/2024 shows left-ventricular ejection fraction of 40 to 45%, mildly impaired without any significant wall motion abnormalities and there is also mild aortic regurgitation. On 11/28/2024, the patient is being seen for a follow-up. The patient was seen earlier this morning and the patient was feeling better. He is still having some coughing spells. Nevertheless, he is less bronchospastic and wheezy. Of concern is a positive blood culture with MRSA and coagulase-negative staph. Blood work from today shows a white cell count of 20 with a hemoglobin 12.3 and a platelet count of 277. His BUN is 42 with a creatinine of 1.1. Serum bicarb is down to 19 and sodium levels at 135. His procalcitonin level is at 0.32. The patient is communicating. He is afebrile. Denies having any nausea vomiting or diarrhea. No other new complaints for now. He is antibiotic coverage includes vancomycin. He remains on bronchodilators. He remains on Symbicort. He remains on IV Solu-Medrol. Long-term anticoagulation is with Xarelto. 11/29/2024, the patient is being seen for a follow-up. Noted the patient was transferred to telemetry unit as the patient was having atrial fibrillation with rapid ventricular response and the patient was started on Cardizem drip which is currently running at 10 mg an hour. Heart rate is under better control. Continues to have some limited wheezing although this is improved. Continues to have episodes of cough and coughing spells and those are also improving. On a separate note, the patient's blood culture was positive for MRSA and the patient remains on IV vancomycin. The white cell count is down to 15.9 with a hemoglobin 11.5 and a platelet count of 266. BUN is 45 with a creatinine 1.2 and a sodium level at 138. Alert and awake and communicating. Extremely hard of hearing. Remains hemodynamically stable. Remains on anticoagulation with Xarelto. Remains on bronchodilators. Remains on IV Solu-Medrol. Objective - Vital Signs Vital signs: Vital Signs Temp 97.4 F L 11/29/24 09:01 Pulse 104 H 11/29/24 09:01 Resp 20 11/29/24 09:01 BP 141/86 11/29/24 09:01 Pulse Ox 91 L 11/29/24 09:01 FiO2 Intake & Output 11/28/24 11/29/24 11/29/24 18:59 06:59 18:59 Intake Total 480 480 Output Total 725 Balance 480 -725 480 Weight 109 kg Intake: Oral 480 480 Output: Urine 725 Other: Voiding Method Urinal Urinal Urinal # Voids 1 3 - Exam GENERAL EXAM: Alert, 84-year-old white male, laying on his left side, hard of hearing, fairly comfortable in no apparent distress. Patient is currently on 2 L of oxygen nasal cannula HEAD: Normocephalic and atraumatic EYES: Normal reaction of pupils, equal size. NOSE: Clear with pink turbinates. THROAT: No erythema or exudates. NECK: No masses, no JVD. CHEST: No chest wall deformity. LUNGS: Equal air entry with bilateral rhonchi. Improved air entry bilaterally the patient is much less bronchospastic and wheezy. No conversational dyspnea or accessory muscle use. CVS: S1 and S2 normal with no audible murmur, irregular rhythm. No extra heart sounds ABDOMEN: No hepatosplenomegaly, active bowel sounds, no guarding or rigidity. SPINE: No scoliosis or deformity SKIN: No rashes. Right hip incision is approximated, without any erythema, warmth, drainage or wound dehiscence CENTRAL NERVOUS SYSTEM: No focal deficits, tone is normal in all 4 extremities. EXTREMITIES: There is no peripheral edema, clubbing, or cyanosis. Peripheral pulses are intact. - Labs CBC & Chem 7: 11/29/24 05:26 11/29/24 05:26 Labs: Abnormal Lab Results - Last 24 Hours (Table) 11/29/24 11/29/24 Range/Units 05:26 05:26 WBC 15.9 H (3.8-10.6) k/uL RBC 4.08 L (4.30-5.90) m/uL Hgb 11.5 L (13.0-17.5) gm/dL Hct 36.5 L (39.0-53.0) % Neutrophils # 14.8 H (1.3-7.7) k/uL Lymphocytes # 0.4 L (1.0-4.8) k/uL BUN 45 H (9-20) mg/dL Creatinine 1.29 H (0.66-1.25) mg/dL Glucose 119 H (74-99) mg/dL Total Protein 5.5 L (6.3-8.2) g/dL Albumin 3.3 L (3.5-5.0) g/dL Microbiology - Last 24 Hours (Table) 11/28/24 03:30 Gram Stain - Preliminary Sputum 11/27/24 05:20 Blood Culture - Preliminary Blood 11/25/24 03:10 Blood Culture Gram Stain - Final Blood Blood Culture - Final Methicillin resist S. aureus Coagulase Negative Staph Molecular ID Assessment and Plan Assessment: Acute exacerbation of chronic COPD with secondary shortness of breath, maintained on a combination of bronchodilators and steroids. Clinically improving. Shortness of breath and cough have also been improving. Remains on bronchodilators. Remains on steroids. Acute hypoxic respiratory failure currently on 2 L oxygen by nasal cannula. Chest x-ray is revealing cardiomegaly with mild pulm vessel congestion and some atelectatic changes right lung base, pneumonia is doubtful Staphylococcal sepsis and blood cultures positive for MRSA and coagulase- negative staph. The white cell count is elevated procalcitonin level is is at 0.32 Recent right direct anterior total hip arthroplasty, October 25, 2024, discharged to [facility] for rehab Chronic systolic heart failure and Echocardiogram from 11/26/2024 shows left-ventricular ejection fraction of 40 to 45%, mildly impaired without any significant wall motion abnormalities and there is also mild aortic regurgitation. Atrial fibrillation with rapid ventricular response, anticoagulated on Xarelto, the patient is currently Cardizem drip and metoprolol Acute kidney injury, improving History of hypertension History of hyperlipidemia History of factor VIII deficiency History of BPH History of nephrolithiasis and previous ureteral stent placement History of frequent urinary tract infections Plan: Titrate oxygen flow to maintain saturation above 90%, currently on 2 L Continue Symbicort Continue DuoNeb updrafts Continue IV Solu-Medrol for another 24 hours and switch this patient to prednisone burst taper as of tomorrow Continue IV vancomycin White cell count is improving Renal function is stable Continue anticoagulation with Xarelto Patient is on metoprolol 150 mg p.o. twice a day and Cardizem drip and this can be gradually weaned off and the patient is on anticoagulation with Xarelto. Echocardiogram was noted ID is on the case Cardiology on the case Will continue to follow
[2024-11-29 16:31] LABS: Glucose,Whole Blood 140 mg/dL (70-110)
[2024-11-29 20:29] LABS: Glucose,Whole Blood 145 mg/dL (70-110)
[2024-11-29] MEDS: METOPROLOL TARTRATE 50 MG TAB PO SCH (21:19)
[2024-11-29] MEDS: VANCOMYCIN 1,750 MG in SODIUM CHLORIDE 0.9% 500 ML 500 ML IVPB SCH (22:12)
[2024-11-30 06:09] LABS: Glucose,Whole Blood 124 mg/dL (70-110)
[2024-11-30 08:17] LABS: Basophils % (A) 0 %; Eosinophils % (A) 0 %; HCT 37.1 % (39.0-53.0); HGB 11.8 gm/dL (13.0-17.5); Hypochromasia Moderate; Lymphocytes # (A) 0.5 k/uL (1.0-4.8); Lymphocytes % (A) 3 %; MCH 28.6 pg (25.0-35.0); MCHC 31.8 g/dL (31.0-37.0); MCV 90.1 fL (80.0-100.0); Mean Platelet Volume 7.5; Monocytes # (A) 0.6 k/uL (0-1.0); Monocytes % (A) 4 %; Neutrophils # (A) 16.1 k/uL (1.3-7.7); Neutrophils % (A) 93 %; Platelet Count 259 k/uL (150-450); RBC 4.12 m/uL (4.30-5.90); RDW 14.6 % (11.5-15.5); WBC 17.3 k/uL (3.8-10.6)
[2024-11-30 08:45] LABS: ALT 23 U/L (4-49); AST 30 U/L (17-59); African American GFR (CKD) 74 (>60 ml/min/1.73 sqM); Albumin 3.2 g/dL (3.5-5.0); Alkaline Phosphatase 109 U/L (38-126); Anion Gap 11 mmol/L; Blood Urea Nitrogen 45 mg/dL (9-20); Calcium 8.9 mg/dL (8.4-10.2); Carbon Dioxide 20 mmol/L (22-30); Chloride 108 mmol/L (98-107); Glucose 110 mg/dL (74-99); Non-African American GFR(CKD) 64 (>60 ml/min/1.73 sqM); Potassium 4.8 mmol/L (3.5-5.1); Sodium 139 mmol/L (137-145); Total Bilirubin 0.3 mg/dL (0.2-1.3); Total Protein 5.5 g/dL (6.3-8.2)
--- NOTE | 2024-11-30 10:17 | P.PN ---
Subjective Progress Note Date: 11/29/24 HISTORY OF PRESENT ILLNESS This is a 84-year-old male with past medical history of hypertension, paroxysmal atrial fibrillation on Xarelto, benign prostatic hypertrophy, hiatal hernia, hereditary factor VIII deficiency, hyperlipidemia, mild intermittent asthma, mild COPD, patient was recently admitted to [facility] after he underwent right total hip arthroplasty that was done by Dr. Thakkar and he has been at [facility] for physical therapy rehabilitation, patient developed to have a significant cough yellow phlegm production as well as shortness of breath over the last 2 days, yesterday I received a call from the nursing staff stating that the patient is having dry cough, he was placed on Tessalon Perles 200 mg orally 3 times every day, however the patient became quite hypoxemic, with oxygenation in the range of 84 to 85% he was placed on nonrebreather, he was sent to the ER for evaluation he had a chest x-ray that showed right lower lobe pneumonia, he was started on IV antibiotic in the form of Rocephin and Zithromax he was admitted to the hospital with pulmonary consultation, antibiotics were further discontinued and he was started on va ncomycin and cefepime since blood cultures did show evidence of MRSA. 11/26: Patient is laying down in bed in no apparent distress, he continues to have A-fib with RVR his heart rate is running between 115 and 135 cardiology was consulted, metoprolol was increased to 100 mg orally twice every day, continue treatment plan, pulmonary consultation still pending, cardiology consultation still pending, patient blood culture showed evidence of MRSA, he was switched to vancomycin as well as cefepime, await ID input, echocardiogram will be obtained. 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 1/9: Patient is sitting up in the chair continues to be somewhat short of breath, his monitor showing atrial fibrillation with rapid response, cardiology reconsulted, the patient was moved to telemetry unit, he was started on Cardizem drip at 5 mg an hour, he has been maintained on metoprolol 100 mg orally twice every day, repeated blood culture from November 27, 2024 still pending at the time of dictation, patient continues to be on vancomycin for MRSA bacteremia that is likely related to possible MRSA pneumonia. Sputum culture still pending at time of dictation. Patient will be seen in consultation by physical therapy, the plan for the patient to either go back to [facility] or going home from here. 11/29: Patient sitting up in bed in no apparent distress, he denies any chest pain, shortness of breath, he has no abdominal pain, nausea vomiting or diarrhea, he is heart rate is a lot better today, he has been on Cardizem drip at 5 mg an hour, he continues to be on metoprolol 150 mg orally twice every day, his repeated blood culture from 11/27/2024 showed evidence of coagulase-negative methicillin-resistant Staphylococcus aureus, that is resistant to tetracycline and ampicillin and Augmentin and sensitive to prevent everything including vancomycin continue with current treatment plan, sputum culture showed evidence of gram-positive cocci as well as gram-negative bacilli, still preliminary, follow-up with the patient very closely. PHYSICAL EXAMINATION Gen: This is an obese 84-year-old male, resting in bed, appears to be in minimal respiratory distress. HEENT: Head is atraumatic, normocephalic. Pupils equal, round. Sclerae is anicteric. NECK: Supple. No JVD. No lymphadenopathy. No thyromegaly. LUNGS: decreased breath sound at bases, few rhonchi minimal expiratory wheezes no chest wall tenderness no intercostal retractions HEART: First heart sound is depressed, second heart sound is normal, 2/6 systolic ejection murmur at the left sternal border, irregular irregular due to atrial fibrillation. ABDOMEN: Soft. Bowel sounds are present. No masses. No tenderness. EXTREMITIES: +1 pedal edema. No calf tenderness. Pain in the left hip. Dorsalis pedis palpable bilaterally. NEUROLOGICAL: Patient is awake, alert and oriented x3. Cranial nerves 2 through 12 are grossly intact, muscle power 4/5 upper and lower extremities bilaterally ASSESSMENT AND PLAN 1. Right lower lobe pneumonia with MRSA bacteremia likely MRSA pneumonia. Continue patient on vancomycin pharmacy to dose its peak and trough, shoot for a trough of 15 per ID recommendation, continue to monitor the patient very closely, continue oxygen support, continue nebulized treatment, follow-up with the patient very closely, sputum culture was sent still pending. Repeat the blood culture from November 27 showed evidence of coagulase-negative staph that is MRSA 2. Atrial fibrillation with rapid ventricular response. Increase metoprolol to 150 mg orally twice every day, continue Xarelto 15 mg orally once every day, cardiology consultation. Patient was switched to Cardizem drip at 5 mg an hour he was moved to telemetry 3. 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 Continue metoprolol 100 mg orally twice every day, monitor the patient's symptoms very closely continue Farxiga 10 mg orally once every day, continue Lasix 40 mg orally twice daily with potassium supplements 4. COPD with mild exacerbation. Continue patient on DuoNeb 3 mL nebulization 4 times every day, Symbicort 804 0.5 g 2 puffs twice daily, oxygen support continue Solu-Medrol 1 mg IV push every 12 hours 5. Mild intermittent asthma. Continue Singulair 10 mg at bedtime, loratadine 10 mg once daily, albuterol nebulizer treatments every 4 hours as needed. 6. Benign prostatic hypertrophy. Continue Flomax 0.4 mg at bedtime, monitor for urinary retention. 7. Hereditary factor VIII deficiency. Continue Xarelto 15 mg once a day. 8. Mixed hyperlipidemia. Continue Zetia 10 mg daily and Atorvastatin 40 mg once a day. Monitor the patient lipid panel, keep LDL 55-70 9. Hypertension and hypertensive cardiovascular disease. Continue metoprolol 100 mg orally twice every day. 10. GI prophylaxis. Continue patient on Protonix 40 mg po daily. 11. DVT prophylaxis. Continue Xarelto 15 mg once every day 12. Major depressive disorder. Continue patient on Effexor XR 37.5 mg orally once every day. 13. Physical therapy evaluation. 14. other sales support worker consultation for discharge planning likely back to [facility]. 15. Full code. Objective - Vital Signs Vital signs: Vital Signs Temp 97.4 F L 11/29/24 09:01 Pulse 100 11/29/24 15:13 Resp 17 11/29/24 11:32 BP 128/77 11/29/24 11:32 Pulse Ox 91 L 11/29/24 09:01 FiO2 Intake & Output 11/28/24 11/29/24 11/29/24 18:59 06:59 18:59 Intake Total 480 480 Output Total 725 Balance 480 -725 480 Weight 109 kg Intake: Oral 480 480 Output: Urine 725 Other: Voiding Method Urinal Urinal Urinal # Voids 1 3 - Labs CBC & Chem 7: 11/29/24 05:26 11/29/24 05:26 Labs: Abnormal Lab Results - Last 24 Hours (Table) 11/29/24 11/29/24 Range/Units 05:26 05:26 WBC 15.9 H (3.8-10.6) k/uL RBC 4.08 L (4.30-5.90) m/uL Hgb 11.5 L (13.0-17.5) gm/dL Hct 36.5 L (39.0-53.0) % Neutrophils # 14.8 H (1.3-7.7) k/uL Lymphocytes # 0.4 L (1.0-4.8) k/uL BUN 45 H (9-20) mg/dL Creatinine 1.29 H (0.66-1.25) mg/dL Glucose 119 H (74-99) mg/dL Total Protein 5.5 L (6.3-8.2) g/dL Albumin 3.3 L (3.5-5.0) g/dL Microbiology - Last 24 Hours (Table) 11/27/24 05:20 Blood Culture - Preliminary Blood 11/28/24 03:30 Gram Stain - Preliminary Sputum Sputum Culture - Preliminary
--- NOTE | 2024-11-30 11:15 | P.PN ---
Subjective Progress Note Date: 11/30/24 HISTORY OF PRESENT ILLNESS This is a 84-year-old male with past medical history of hypertension, paroxysmal atrial fibrillation on Xarelto, benign prostatic hypertrophy, hiatal hernia, hereditary factor VIII deficiency, hyperlipidemia, mild intermittent asthma, mild COPD, patient was recently admitted to [facility] after he underwent right total hip arthroplasty that was done by Dr. Thakkar and he has been at [facility] for physical therapy rehabilitation, patient developed to have a significant cough yellow phlegm production as well as shortness of breath over the last 2 days, yesterday I received a call from the nursing staff stating that the patient is having dry cough, he was placed on Tessalon Perles 200 mg orally 3 times every day, however the patient became quite hypoxemic, with oxygenation in the range of 84 to 85% he was placed on nonrebreather, he was sent to the ER for evaluation he had a chest x-ray that showed right lower lobe pneumonia, he was started on IV antibiotic in the form of Rocephin and Zithromax he was admitted to the hospital with pulmonary consultation, antibiotics were further discontinued and he was started on va ncomycin and cefepime since blood cultures did show evidence of MRSA. 11/26: Patient is laying down in bed in no apparent distress, he continues to have A-fib with RVR his heart rate is running between 115 and 135 cardiology was consulted, metoprolol was increased to 100 mg orally twice every day, continue treatment plan, pulmonary consultation still pending, cardiology consultation still pending, patient blood culture showed evidence of MRSA, he was switched to vancomycin as well as cefepime, await ID input, echocardiogram will be obtained. 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 1/9: Patient is sitting up in the chair continues to be somewhat short of breath, his monitor showing atrial fibrillation with rapid response, cardiology reconsulted, the patient was moved to telemetry unit, he was started on Cardizem drip at 5 mg an hour, he has been maintained on metoprolol 100 mg orally twice every day, repeated blood culture from November 27, 2024 still pending at the time of dictation, patient continues to be on vancomycin for MRSA bacteremia that is likely related to possible MRSA pneumonia. Sputum culture still pending at time of dictation. Patient will be seen in consultation by physical therapy, the plan for the patient to either go back to [facility] or going home from here. 11/29: Patient sitting up in bed in no apparent distress, he denies any chest pain, shortness of breath, he has no abdominal pain, nausea vomiting or diarrhea, he is heart rate is a lot better today, he has been on Cardizem drip at 5 mg an hour, he continues to be on metoprolol 150 mg orally twice every day, his repeated blood culture from 11/27/2024 showed evidence of coagulase-negative methicillin-resistant Staphylococcus aureus, that is resistant to tetracycline and ampicillin and Augmentin and sensitive to prevent everything including vancomycin continue with current treatment plan, sputum culture showed evidence of gram-positive cocci as well as gram-negative bacilli, still preliminary, follow-up with the patient very closely. 11/30: Patient is laying down in bed he is still have some cough minimal from production, no chest pain or shortness of breath, he is not having abdominal pain, nausea vomiting or diarrhea, he has been tolerating treatment very well, he continues to be on Solu-Medrol 40 mg IV push every 12 hours, vancomycin for presumably MRSA pneumonia, as well as MRSA bacteremia, given that the bacteremia did show evidence of possible contaminant, we will continue to follow-up with the patient very closely, likely the patient will be discharged home at the beginning of the week. PHYSICAL EXAMINATION Gen: This is an obese 84-year-old male, resting in bed, appears to be in minimal respiratory distress. HEENT: Head is atraumatic, normocephalic. Pupils equal, round. Sclerae is anicteric. NECK: Supple. No JVD. No lymphadenopathy. No thyromegaly. LUNGS: decreased breath sound at bases, few rhonchi minimal expiratory wheezes no chest wall tenderness no intercostal retractions HEART: First heart sound is depressed, second heart sound is normal, 2/6 systolic ejection murmur at the left sternal border, irregular irregular due to atrial fibrillation. ABDOMEN: Soft. Bowel sounds are present. No masses. No tenderness. EXTREMITIES: +1 pedal edema. No calf tenderness. Pain in the left hip. Dorsalis pedis palpable bilaterally. NEUROLOGICAL: Patient is awake, alert and oriented x3. Cranial nerves 2 through 12 are grossly intact, muscle power 4/5 upper and lower extremities bilaterally ASSESSMENT AND PLAN 1. Right lower lobe pneumonia with MRSA bacteremia likely MRSA pneumonia. Continue patient on Solu-Medrol 40 mg IV push every 12 hours, continue Tessalon Perles 200 mg orally 3 times every day, Mucinex as needed, DuoNeb 3 mL nebulization 4 times every day, oxygen support, continue vancomycin, sputum culture showed evidence of gram-positive cocci as well as gram-negative bacilli, the final results are pending, however the blood culture finalized from 11/27/2024 showed evidence of coagulase-negative MRSA could be a contaminant however we will continue with the vancomycin for now since the patient is improving on it. 2. Atrial fibrillation with rapid ventricular response. Increase metoprolol to 150 mg orally twice every day, continue Xarelto 15 mg orally once every day, monitor the patient very closely, patient was taken off Cardizem drip due to low ejection fraction. 3. 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 Continue metoprolol 150 mg orally twice every day, monitor the patient's symptoms very closely continue Farxiga 10 mg orally once every day, add losartan 25 mg once every day, spironolactone 25 mg orally once every day, monitor the patient input and output and daily weight. Echocardiogram was reviewed. 4. COPD with exacerbation. Continue patient on DuoNeb 3 mL nebulization 4 times every day, Symbicort 804 0.5 g 2 puffs twice daily, oxygen support continue Solu-Medrol 1 mg IV push every 12 hours 5. Mild intermittent asthma. Continue Singulair 10 mg at bedtime, loratadine 10 mg once daily, albuterol nebulizer treatments every 4 hours as needed. 6. Benign prostatic hypertrophy. Continue Flomax 0.4 mg at bedtime, monitor for urinary retention. 7. Hereditary factor VIII deficiency. Continue Xarelto 15 mg once a day. 8. Mixed hyperlipidemia. Continue Zetia 10 mg daily and Atorvastatin 40 mg once a day. Monitor the patient lipid panel, keep LDL 55-70 9. Hypertension and hypertensive cardiovascular disease. Continue metoprolo 150 mg orally twice every day, start the patient on losartan 25 milligram orally once every day, monitor the patient blood pressure very closely. 10. GI prophylaxis. Continue patient on Protonix 40 mg po daily. 11. DVT prophylaxis. Continue Xarelto 15 mg once every day 12. Major depressive disorder. Continue patient on Effexor XR 37.5 mg orally once every day. 13. Physical therapy evaluation. 14. 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 15. Full code. Objective - Vital Signs Vital signs: Vital Signs Temp 97.7 F 11/30/24 09:18 Pulse 114 H 11/30/24 09:18 Resp 22 11/30/24 09:34 BP 129/74 11/30/24 09:18 Pulse Ox 91 L 11/30/24 09:34 FiO2 Intake & Output 11/29/24 11/30/24 11/30/24 18:59 06:59 18:59 Intake Total 480 240 10 Output Total 600 500 300 Balance -120 -260 -290 Weight 109.2 kg Intake: IV 10 Invasive Line 4 10 Oral 480 240 Output: Urine 600 500 300 Other: Voiding Method Urinal Urinal # Voids 2 - Labs CBC & Chem 7: 11/30/24 06:50 11/30/24 06:50 Labs: Abnormal Lab Results - Last 24 Hours (Table) 11/29/24 11/29/24 11/30/24 Range/Units 16:30 20:28 06:07 WBC (3.8-10.6) k/uL RBC (4.30-5.90) m/uL Hgb (13.0-17.5) gm/dL Hct (39.0-53.0) % Neutrophils # (1.3-7.7) k/uL Lymphocytes # (1.0-4.8) k/uL Chloride (98-107) mmol/L Carbon Dioxide (22-30) mmol/L BUN (9-20) mg/dL Glucose (74-99) mg/dL POC Glucose (mg/dL) 140 H 145 H 124 H (70-110) mg/dL Total Protein (6.3-8.2) g/dL Albumin (3.5-5.0) g/dL 11/30/24 11/30/24 Range/Units 06:50 06:50 WBC 17.3 H (3.8-10.6) k/uL RBC 4.12 L (4.30-5.90) m/uL Hgb 11.8 L (13.0-17.5) gm/dL Hct 37.1 L (39.0-53.0) % Neutrophils # 16.1 H (1.3-7.7) k/uL Lymphocytes # 0.5 L (1.0-4.8) k/uL Chloride 108 H (98-107) mmol/L Carbon Dioxide 20 L (22-30) mmol/L BUN 45 H (9-20) mg/dL Glucose 110 H (74-99) mg/dL POC Glucose (mg/dL) (70-110) mg/dL Total Protein 5.5 L (6.3-8.2) g/dL Albumin 3.2 L (3.5-5.0) g/dL Microbiology - Last 24 Hours (Table) 11/27/24 05:20 Blood Culture - Preliminary Blood 11/28/24 03:30 Gram Stain - Preliminary Sputum Sputum Culture - Preliminary
[2024-11-30 11:51] LABS: Glucose,Whole Blood 154 mg/dL (70-110)
[2024-11-30] MEDS: SPIRONOLACTONE 25 MG TAB PO SCH (11:55)
[2024-11-30] MEDS: LOSARTAN 25 MG TAB PO SCH (11:55)
--- NOTE | 2024-11-30 12:38 | P.PN ---
Subjective Progress Note Date: 11/30/24 Patient is an 84-year-old male with past medical history significant for hypertension, atrial fibrillation anticoagulated on Xarelto, hyperlipidemia, asthma/COPD. Of note, recently underwent right total hip arthroplasty on October 25, 2024, and was discharged to [facility] for rehab. While at the [facility], was noted to be getting up to the bathroom and was in acute respiratory distress. He was noted to be hypoxic with an SpO2 in the low 80s. Transferred to [facility] ED for evaluation early yesterday morning. Workup in the ED including a chest x-ray possible right lower lobe airspace opacity with the right lateral lung excluded from the film. Originally started on antibiotics in the ED for possible pneumonia. Blood cultures were positive for MRSA. Patient's antibiotics have since been adjusted to vancomycin and cefepime. Highest recorded temperature 99.8 F. Has been tachycardic. Right hip incision is approximated without any erythema, warmth, drainage, or wound de hiscence no. No significant pain out of proportion. He has been ambulating with walker. CBC: WBC count 17, hemoglobin 13.6, platelets 299. CMP: Sodium 136, potassium 4.6, chloride 100, serum bicarb 27, BUN 38, creatinine 1.49, glucose 139. Lactic was 1.6. NT proBNP 1170. EKG: Atrial fibrillation with rapid ventricular response, 108 bpm, RBB pattern. Negative for influenza, RSV, COVID. Currently being evaluated on the general medical floor. He is alert but overall poor historian. He is hard of hearing. He is on 3 L/min nasal cannula, SpO2 is 95%. He denies any significant respiratory distress. Has a congested cough. Current vitals: Temperature 98.4 F, heart rate 107 bpm, blood pressure 103/57 mmHg, nontachypneic, SpO2 95% on 3 L/min nasal cannula. On 11/27/2024, the patient is being seen for a follow-up. Less short of breath compared to yesterday. Markedly improved and less bronchospastic and wheezy. Remains on Symbicort as maintenance and DuoNeb nebulized treatments [id number]. Remains on IV Solu-Medrol 60 mg every 6 hours. Rest of the medications are essentially unchanged. Labs from today show a white cell count of 8 with a hemoglobin 12 and a platelet count of 231. Sodium levels at 133, BUN 38 and a creatinine is 1.2. proBNP level was 1170. Troponins were negative. Procalcitonin level was at 0.32. The blood culture is presumptive MRSA and coagulase negative staph and the patient remains on vancomycin. No clear source for the underlying infection. The patient is also known to be in chronic atrial fibrillation. [employer] on the case. Maintained on metoprolol 100 mg p.o. twice a day. Maintained also on Cardizem 30 mg p.o. 3 times daily for rate control and the patient is also on anticoagulation with Xarelto and dose modification was done as the patient's renal function improved and the creatinine is down from 1.49 down to 1.2. Patient is also being seen by infectious disease regarding the bacteremia with MRSA/coagulase-negative staph. Reviewed the chest x-ray and there is some cardiomegaly. Increased interstitial changes in the lung bases. Pneumonia is doubtful. Currently on 2 L of oxygen by nasal cannula. Echocardiogram from 11/26/2024 shows left-ventricular ejection fraction of 40 to 45%, mildly impaired without any significant wall motion abnormalities and there is also mild aortic regurgitation. On 11/28/2024, the patient is being seen for a follow-up. The patient was seen earlier this morning and the patient was feeling better. He is still having some coughing spells. Nevertheless, he is less bronchospastic and wheezy. Of concern is a positive blood culture with MRSA and coagulase-negative staph. Blood work from today shows a white cell count of 20 with a hemoglobin 12.3 and a platelet count of 277. His BUN is 42 with a creatinine of 1.1. Serum bicarb is down to 19 and sodium levels at 135. His procalcitonin level is at 0.32. The patient is communicating. He is afebrile. Denies having any nausea vomiting or diarrhea. No other new complaints for now. He is antibiotic coverage includes vancomycin. He remains on bronchodilators. He remains on Symbicort. He remains on IV Solu-Medrol. Long-term anticoagulation is with Xarelto. 11/29/2024, the patient is being seen for a follow-up. Noted the patient was transferred to telemetry unit as the patient was having atrial fibrillation with rapid ventricular response and the patient was started on Cardizem drip which is currently running at 10 mg an hour. Heart rate is under better control. Continues to have some limited wheezing although this is improved. Continues to have episodes of cough and coughing spells and those are also improving. On a separate note, the patient's blood culture was positive for MRSA and the patient remains on IV vancomycin. The white cell count is down to 15.9 with a hemoglobin 11.5 and a platelet count of 266. BUN is 45 with a creatinine 1.2 and a sodium level at 138. Alert and awake and communicating. Extremely hard of hearing. Remains hemodynamically stable. Remains on anticoagulation with Xarelto. Remains on bronchodilators. Remains on IV Solu-Medrol. 11/30/2024, the patient is being seen for a follow-up. Continues to have coughing spells along with some shortness of breath. Continues to bronchospastic and wheezy. Nevertheless, no interval worsening shortness of breath. No pleurisy. No chest pain. No hemoptysis. No fever. The white cell count at 17 with a hemoglobin 11.8 and a platelet count of 259. BUN is 45 with a creatinine of 1.08 and a sodium levels at 139. The patient remains on vancomycin. The patient remains on Symbicort, DuoNeb updrafts and IV Solu-M edrol. Blood culture was positive for MRSA. Repeat blood culture was negative. He is hard of hearing. He is currently on oxygen at 8 L/min nasal cannula with a +97%. FiO2 can be gradually weaned off. Objective - Vital Signs Vital signs: Vital Signs Temp 97.7 F 11/30/24 09:18 Pulse 114 H 11/30/24 09:18 Resp 22 11/30/24 09:34 BP 129/74 11/30/24 09:18 Pulse Ox 91 L 11/30/24 09:34 FiO2 Intake & Output 11/29/24 11/30/24 11/30/24 18:59 06:59 18:59 Intake Total 480 240 Output Total 600 500 Balance -120 -260 Weight 109.2 kg Intake: Oral 480 240 Output: Urine 600 500 Other: Voiding Method Urinal Urinal # Voids 2 - Exam GENERAL EXAM: Alert, 84-year-old white male, laying on his left side, hard of hearing, fairly comfortable in no apparent distress. Patient is currently on 8 L of oxygen nasal cannula HEAD: Normocephalic and atraumatic EYES: Normal reaction of pupils, equal size. NOSE: Clear with pink turbinates. THROAT: No erythema or exudates. NECK: No masses, no JVD. CHEST: No chest wall deformity. LUNGS: Equal air entry with bilateral rhonchi. Improved air entry bilaterally the patient is much less bronchospastic and wheezy. No conversational dyspnea or accessory muscle use. CVS: S1 and S2 normal with no audible murmur, irregular rhythm. No extra heart sounds ABDOMEN: No hepatosplenomegaly, active bowel sounds, no guarding or rigidity. SPINE: No scoliosis or deformity SKIN: No rashes. Right hip incision is approximated, without any erythema, warmth, drainage or wound dehiscence CENTRAL NERVOUS SYSTEM: No focal deficits, tone is normal in all 4 extremities. EXTREMITIES: There is no peripheral edema, clubbing, or cyanosis. Peripheral pulses are intact. - Labs CBC & Chem 7: 11/30/24 06:50 11/30/24 06:50 Labs: Abnormal Lab Results - Last 24 Hours (Table) 11/29/24 11/29/24 11/30/24 Range/Units 16:30 20:28 06:07 WBC (3.8-10.6) k/uL RBC (4.30-5.90) m/uL Hgb (13.0-17.5) gm/dL Hct (39.0-53.0) % Neutrophils # (1.3-7.7) k/uL Lymphocytes # (1.0-4.8) k/uL Chloride (98-107) mmol/L Carbon Dioxide (22-30) mmol/L BUN (9-20) mg/dL Glucose (74-99) mg/dL POC Glucose (mg/dL) 140 H 145 H 124 H (70-110) mg/dL Total Protein (6.3-8.2) g/dL Albumin (3.5-5.0) g/dL 11/30/24 11/30/24 Range/Units 06:50 06:50 WBC 17.3 H (3.8-10.6) k/uL RBC 4.12 L (4.30-5.90) m/uL Hgb 11.8 L (13.0-17.5) gm/dL Hct 37.1 L (39.0-53.0) % Neutrophils # 16.1 H (1.3-7.7) k/uL Lymphocytes # 0.5 L (1.0-4.8) k/uL Chloride 108 H (98-107) mmol/L Carbon Dioxide 20 L (22-30) mmol/L BUN 45 H (9-20) mg/dL Glucose 110 H (74-99) mg/dL POC Glucose (mg/dL) (70-110) mg/dL Total Protein 5.5 L (6.3-8.2) g/dL Albumin 3.2 L (3.5-5.0) g/dL Microbiology - Last 24 Hours (Table) 11/27/24 05:20 Blood Culture - Preliminary Blood 11/28/24 03:30 Gram Stain - Preliminary Sputum Sputum Culture - Preliminary Assessment and Plan Assessment: Acute exacerbation of chronic COPD with secondary shortness of breath, maintained on a combination of bronchodilators and steroids. Clinically improving. Acute hypoxic respiratory failure currently on 8 L oxygen by nasal cannula. Chest x-ray is revealing cardiomegaly with mild pulm vessel congestion and some atelectatic changes right lung base, pneumonia is doubtful Staphylococcal sepsis and blood cultures positive for MRSA and coagulase-negative staph. The white cell count is elevated procalcitonin level is is at 0.32 Recent right direct anterior total hip arthroplasty, October 25, 2024, discharged to [facility] for rehab Chronic systolic heart failure and Echocardiogram from 11/26/2024 shows left- ventricular ejection fraction of 40 to 45%, mildly impaired without any significant wall motion abnormalities and there is also mild aortic re gurgitation. Atrial fibrillation with rapid ventricular response, anticoagulated on Xarelto, the patient is currently Cardizem drip and metoprolol Acute kidney injury, improving History of hypertension History of hyperlipidemia History of factor VIII deficiency History of BPH History of nephrolithiasis and previous ureteral stent placement History of frequent urinary tract infections Plan: Titrate oxygen flow to maintain saturation above 90%, currently on 8 L as the patient oxygen requirements gradually went up overnight. His current pulse ox 97% he should be able to wean off slowly. Continue Symbicort Continue DuoNeb updrafts Continue IV Solu-Medrol Continue IV vancomycin White cell count is still elevated Renal function is stable Continue anticoagulation with Xarelto Patient is on metoprolol 150 mg p.o. twice a day and Cardizem drip and this can be gradually weaned off and the patient is on anticoagulation with Xarelto. Echocardiogram was noted ID is on the case Cardiology on the case Will continue to follow
--- NOTE | 2024-11-30 13:27 | P.PN ---
Subjective Progress Note Date: 11/29/24 Principal diagnosis: Reason for follow-up is MRSA bacteremia/pneumonia Patient is an 84-year-old male with a past medical history significant for diabetes mellitus hypertension hyperlipidemia osteoarthritis pneumonia atrial fibrillation patient has been brought into the hospital from the local [place] [facility] concerning for increasing shortness of breath and the patient was found to be hypoxic, patient also have a positive blood culture with MRSA prompting this consultation. On today's evaluation that is 11/29/2024, the patient continues to be afebrile, the patient is on 2 L nasal oxygen and breathing comfortably, the Pt denies having any chest pain or any worsening cough, the patient denies having any abdominal pain no vomiting or any diarrhea has been reported by the nursing staff Patient white count is down to 15.9 creatinine is 1.29 Objective - Vital Signs Vital signs: Vital Signs Temp 97.4 F L 11/29/24 09:01 Pulse 104 H 11/29/24 09:01 Resp 20 11/29/24 09:01 BP 141/86 11/29/24 09:01 Pulse Ox 91 L 11/29/24 09:01 FiO2 Intake & Output 11/28/24 11/29/24 11/29/24 18:59 06:59 18:59 Intake Total 480 480 Output Total 725 Balance 480 -725 480 Weight 109 kg Intake: Oral 480 480 Output: Urine 725 Other: Voiding Method Urinal Urinal Urinal # Voids 1 3 - Exam GENERAL DESCRIPTION: An elderly male up in the chair in no distress RESPIRATORY SYSTEM: Unlabored breathing , decreased breath sounds at bases HEART: S1 S2 regular rate and rhythm , ABDOMEN: Soft , no tenderness EXTREMITIES: Trace edema feet - Labs CBC & Chem 7: 11/30/24 06:50 11/30/24 06:50 Labs: Abnormal Lab Results - Last 24 Hours (Table) 11/29/24 11/29/24 Range/Units 05:26 05:26 WBC 15.9 H (3.8-10.6) k/uL RBC 4.08 L (4.30-5.90) m/uL Hgb 11.5 L (13.0-17.5) gm/dL Hct 36.5 L (39.0-53.0) % Neutrophils # 14.8 H (1.3-7.7) k/uL Lymphocytes # 0.4 L (1.0-4.8) k/uL BUN 45 H (9-20) mg/dL Creatinine 1.29 H (0.66-1.25) mg/dL Glucose 119 H (74-99) mg/dL Total Protein 5.5 L (6.3-8.2) g/dL Albumin 3.3 L (3.5-5.0) g/dL Microbiology - Last 24 Hours (Table) 11/28/24 03:30 Gram Stain - Preliminary Sputum 11/27/24 05:20 Blood Culture - Preliminary Blood 11/25/24 03:10 Blood Culture Gram Stain - Final Blood Blood Culture - Final Methicillin resist S. aureus Coagulase Negative Staph Molecular ID Assessment and Plan (1) Sepsis Current Visit: Yes Status: Acute Code(s): A41.9 - SEPSIS, UNSPECIFIED ORGANISM SNOMED Code(s): 86025405 (2) MRSA bacteremia Current Visit: Yes Status: Acute Code(s): R78.81 - BACTEREMIA; B95.62 - METHICILLIN RESIS STAPH INFCT CAUSING DISEASES CLASSD [facility] SNOMED Code(s): 25347011526128850 (3) Pneumonia Current Visit: Yes Status: Acute Code(s): J18.9 - PNEUMONIA, UNSPECIFIED ORGANISM SNOMED Code(s): 163543145 Plan: 1patient presented to hospital with sepsis in this patient who did have low- grade fever tachycardia elevated white count meeting criteria for SIRS/sepsis source likely pneumonia right lower lobe in this patient who is a [place] [facility] resident concern for resistant gram-positive/gram-negative 2-patient with MRSA bacteremia source likely pneumonia, blood cultures has been repeated 11/27/2024, has been negative so far sputum culture pending 3patient did have improvement in the white count currently being treated with vancomycin pharmacy to dose target trough of 15 while watching kidney function and Vanco trough closely Dictation was produced using [employer] dictation software. please excuse any grammatical, word or spelling errors. Time with Patient: Less than 30
--- NOTE | 2024-11-30 13:28 | P.PN ---
Subjective Progress Note Date: 11/30/24 Principal diagnosis: Reason for follow-up is MRSA bacteremia/pneumonia Patient is an 84-year-old male with a past medical history significant for diabetes mellitus hypertension hyperlipidemia osteoarthritis pneumonia atrial fibrillation patient has been brought into the hospital from the local intermediate concerning for increasing shortness of breath and the patient was found to be hypoxic, patient also have a positive blood culture with MRSA prompting this consultation. On today's evaluation that is 11/30/2024, patient did not have any fever and denies any chills, patient is breathing comfortably however is requiring high flow nasal oxygen at 8 L today, patient with no chest pain and mention cough has decreased in intensity, patient did not have any abdominal pain nausea vomiting or any loose stools. Patient white count slightly up to 17.3 today, creatinine 1.08 blood culture repeat on 11/27/2024 so far negative Objective - Vital Signs Vital signs: Vital Signs Temp 98.4 F 11/30/24 11:52 Pulse 102 H 11/30/24 11:52 Resp 20 11/30/24 11:52 BP 110/80 11/30/24 11:52 Pulse Ox 97 11/30/24 11:52 FiO2 Intake & Output 11/29/24 11/30/24 11/30/24 18:59 06:59 18:59 Intake Total 480 240 10 Output Total 600 500 300 Balance -120 -260 -290 Weight 109.2 kg Intake: IV 10 Invasive Line 4 10 Oral 480 240 Output: Urine 600 500 300 Other: Voiding Method Urinal Urinal Urinal # Voids 2 - Exam GENERAL DESCRIPTION: An elderly male up in the chair in no distress RESPIRATORY SYSTEM: Unlabored breathing , decreased breath sounds at bases HEART: S1 S2 regular rate and rhythm , ABDOMEN: Soft , no tenderness EXTREMITIES: Trace edema feet - Labs CBC & Chem 7: 11/30/24 06:50 11/30/24 06:50 Labs: Abnormal Lab Results - Last 24 Hours (Table) 11/29/24 11/29/24 11/30/24 Range/Units 16:30 20:28 06:07 WBC (3.8-10.6) k/uL RBC (4.30-5.90) m/uL Hgb (13.0-17.5) gm/dL Hct (39.0-53.0) % Neutrophils # (1.3-7.7) k/uL Lymphocytes # (1.0-4.8) k/uL Chloride (98-107) mmol/L Carbon Dioxide (22-30) mmol/L BUN (9-20) mg/dL Glucose (74-99) mg/dL POC Glucose (mg/dL) 140 H 145 H 124 H (70-110) mg/dL Total Protein (6.3-8.2) g/dL Albumin (3.5-5.0) g/dL 11/30/24 11/30/24 11/30/24 Range/Units 06:50 06:50 11:50 WBC 17.3 H (3.8-10.6) k/uL RBC 4.12 L (4.30-5.90) m/uL Hgb 11.8 L (13.0-17.5) gm/dL Hct 37.1 L (39.0-53.0) % Neutrophils # 16.1 H (1.3-7.7) k/uL Lymphocytes # 0.5 L (1.0-4.8) k/uL Chloride 108 H (98-107) mmol/L Carbon Dioxide 20 L (22-30) mmol/L BUN 45 H (9-20) mg/dL Glucose 110 H (74-99) mg/dL POC Glucose (mg/dL) 154 H (70-110) mg/dL Total Protein 5.5 L (6.3-8.2) g/dL Albumin 3.2 L (3.5-5.0) g/dL Microbiology - Last 24 Hours (Table) 11/28/24 03:30 Gram Stain - Final Sputum Sputum Culture - Final 11/27/24 05:20 Blood Culture - Preliminary Blood Assessment and Plan (1) Sepsis Current Visit: Yes Status: Acute Code(s): A41.9 - SEPSIS, UNSPECIFIED ORGANISM SNOMED Code(s): 91625987 (2) MRSA bacteremia Current Visit: Yes Status: Acute Code(s): R78.81 - BACTEREMIA; B95.62 - METHICILLIN RESIS STAPH INFCT CAUSING DISEASES CLASSD [facility] SNOMED Code(s): 30785537086578812 (3) Pneumonia Current Visit: Yes Status: Acute Code(s): J18.9 - PNEUMONIA, UNSPECIFIED ORGANISM SNOMED Code(s): 499155396 Plan: 1patient presented to hospital with sepsis in this patient who did have low- grade fever tachycardia elevated white count meeting criteria for SIRS/sepsis source likely pneumonia right lower lobe in this patient who is a intermediate resident concern for resistant gram-positive/gram-negative 2-patient with MRSA bacteremia source likely pneumonia, blood cultures has been repeated 11/27/2024 and has been negative so far sputum culture has been negative so far 3patient did have some clinical improvement, currently being treated vancomycin pharmacy to dose target trough of 15 will need a PICC line to finish his antibiotic on discharge Dictation was produced using [employer] dictation software. please excuse any grammatical, word or spelling errors. Time with Patient: Less than 30
--- NOTE | 2024-11-30 16:02 | P.PN ---
Subjective Progress Note Date: 11/30/24 History of present illness: This is an 84-year-old male patient of Dr. Davis with past medical history of chronic permanent atrial fibrillation on Xarelto, hypertension, peripheral vascular disease, family history of premature coronary artery disease, history of tobacco use and dependence, multivessel CAD, mixed hyperlipidemia, ischemic cardiomyopathy. We have been asked to evaluate the patient for A-fib with RVR. Patient's son states that he received a call from [facility] where patient is receiving subacute rehab that his pulse ox had dropped down to 80%. Patient also had congestion and a deep raspy cough. Patient denies having chest pain, no palpitations. Patient was admitted to the hospital and treated for right lower lobe pneumonia and MRSA bacteremia, A-fib with RVR, chronic diastolic heart failure, COPD with mild exacerbation as well as mild intermittent asthma. Patient was found to have A-fib with RVR with heart rate in the 120s to 150s this morning. Attending has increased his Lopressor to 100 mg twice daily from 75 mg twice daily. Heart rate is better controlled at the time of evaluation. Blood pressure 107/62, heart rate 100-112, pulse ox 95% on 2 L nasal cannula. -EKG: Atrial fibrillation with ventricular rate of 108 -Chest x-ray: #1 partial visualization of likely right lower lobe pneumonia. #2 similar mild to moderate cardiomegaly. Similar interstitial density correlate to include mild pulmonary vascular congestion. Patchy interstitial opacities remain in the lower lungs right greater than left. -Laboratory studies: WBC 17, hemoglobin 13.6, INR 1.3, BUN 38, creatinine 1.49, potassium 4.6, troponin negative x 1. proBNP 1170. Alkaline phosphatase 139. Influenza A, influenza B, RSV, COVID-19 not detected. -Home cardiac medications: Atorvastatin 40 mg at bedtime, Farxiga 10 mg daily, Zetia 10 mg daily, Lasix 40 mg twice daily, metoprolol tartrate 75 mg twice daily, potassium chloride 20 mill equivalents daily, Xarelto 20 mg daily -Cardiac catheterization performed 09/19/2023 revealed 20% distal left main, 20% proximal LAD, 20% proximal circumflex, 20% mid RCA and right dominant. -Echocardiogram performed on 03/22/2024 in the office revealed EF 42% with mild , mild TR, mild AR. -Event monitor performed 01/25/2024 - 01/26/2024: Primary rhythm atrial fibrillation/flutter with average heart rate 93, minimal heart rate 69 and maximum heart rate 144. 100% burden of atrial fibrillation or flutter. PVC burden 0.08%. 1 episode of ventricular tachycardia 4 beats. Overall, atrial fibrillation with controlled ventricular rate. 11/27/2024 Patient seen and examined. Patient states that his shortness of breath and coughing are a lot better. He feels a lot better in general. Heart rate is running between 90 and 114, telemetry is atrial fibrillation. Blood pressure 107/72, pulse ox 90% on 2 L nasal cannula. Repeat blood work reveals WBC 8.9, hemoglobin 12, sodium 133, potassium 4.4, BUN 38 creatinine 1.2 Echocardiogram reveals EF 40 to 45%, limited views. Mild aortic regurgitation. 11/29/2024 Cardiology was reconsulted for atrial fibrillation. Echocardiogram does show EF of 40-45%. His heart rates are not well-controlled. He is out of bed in chair and feeling okay. His shortness of breath is better but he is not at baseline. Still with a cough. He does admit that he had prior cardioversion x 2 in the past and did feel better with this. 11/30/2024 Patient is out of bed in chair. He is doing okay. Still has cough however shortness of breath improving. WBC 17.3, hemoglobin 11.8, creatinine 1.08. Heart rate is better controlled 901 100s on telemetry. Physical examination: Gen: This is an 84-year-old male in no acute distress. VS: reviewed HEENT: Head is atraumatic, normocephalic. Pupils equal, round. Sclerae is anicteric. NECK: Supple. No JVD. LUNGS: Bilateral rhonchi. No intercostal retractions. HEART: Irregular rate and rhythm. 2/6 systolic ejection murmur at the base. ABDOMEN: Soft No tenderness. EXTREMITIES: No pedal edema. No calf tenderness. NEUROLOGICAL: Patient is awake, alert and oriented x3. Assessment: Permanent atrial fibrillation on Xarelto with RVR Acute hypoxic respiratory failure with possible right pneumonia COPD exacerbation MRSA bacteremia Acute kidney injury, resolved Recent right total hip arthroplasty 10/25/2024 Hypertension Hyperlipidemia Multivessel mild coronary artery disease, nonobstructive, cardiac cath done 09/19/2023 Remote history of tobacco use Plan: Continue patient's home cardiac medications Continue increased dose of metoprolol metoprolol 150 mg twice daily May consider cardioversion or antiarrhythmics as an outpatient for longer-term management of atrial fibrillation Heart rates are better controlled. Cardiology to sign off, please call with any questions or concerns. Follow-up in office in 1 week. Nurse practitioner note has been reviewed, I agree with documented findings and plan of care. Patient was seen and examined. Objective - Vital Signs Vital signs: Vital Signs Temp 97.9 F 11/30/24 04:39 Pulse 106 H 11/30/24 04:39 Resp 20 11/30/24 04:39 BP 112/74 11/30/24 04:39 Pulse Ox 93 L 11/30/24 05:35 FiO2 Intake & Output 11/29/24 11/30/24 11/30/24 18:59 06:59 18:59 Intake Total 480 240 Output Total 600 500 Balance -120 -260 Weight 109.2 kg Intake: Oral 480 240 Output: Urine 600 500 Other: Voiding Method Urinal Urinal # Voids 2 - Labs CBC & Chem 7: 11/30/24 06:50 11/30/24 06:50 Labs: Abnormal Lab Results - Last 24 Hours (Table) 11/29/24 11/29/24 11/30/24 Range/Units 16:30 20:28 06:07 POC Glucose (mg/dL) 140 H 145 H 124 H (70-110) mg/dL Microbiology - Last 24 Hours (Table) 11/27/24 05:20 Blood Culture - Preliminary Blood 11/28/24 03:30 Gram Stain - Preliminary Sputum Sputum Culture - Preliminary
[2024-11-30 16:53] LABS: Glucose,Whole Blood 138 mg/dL (70-110)
[2024-11-30 20:12] LABS: Glucose,Whole Blood 178 mg/dL (70-110)
[2024-12-01 06:36] LABS: Glucose,Whole Blood 128 mg/dL (70-110)
[2024-12-01] MEDS: VANCOMYCIN TROUGH DUE 1 EACH MISC MISCELLANE ONE (07:16)
[2024-12-01 11:38] LABS: Glucose,Whole Blood 117 mg/dL (70-110)
[2024-12-01] MEDS: guaiFENesin SYRUP 100MG/5ML 200 MG/10 ML CUP PO SCH (11:51)
--- NOTE | 2024-12-01 12:56 | P.PN ---
Subjective Progress Note Date: 12/01/24 Patient is an 84-year-old male with past medical history significant for hypertension, atrial fibrillation anticoagulated on Xarelto, hyperlipidemia, asthma/COPD. Of note, recently underwent right total hip arthroplasty on October 25, 2024, and was discharged to [facility] for rehab. While at the [facility], was noted to be getting up to the bathroom and was in acute respiratory distress. He was noted to be hypoxic with an SpO2 in the low 80s. Transferred to [facility] ED for evaluation early yesterday morning. Workup in the ED including a chest x-ray possible right lower lobe airspace opacity with the right lateral lung excluded from the film. Originally started on antibiotics in the ED for possible pneumonia. Blood cultures were positive for MRSA. Patient's antibiotics have since been adjusted to vancomycin and cefepime. Highest recorded temperature 99.8 F. Has been tachycardic. Right hip incision is approximated without any erythema, warmth, drainage, or wound de hiscence no. No significant pain out of proportion. He has been ambulating with walker. CBC: WBC count 17, hemoglobin 13.6, platelets 299. CMP: Sodium 136, potassium 4.6, chloride 100, serum bicarb 27, BUN 38, creatinine 1.49, glucose 139. Lactic was 1.6. NT proBNP 1170. EKG: Atrial fibrillation with rapid ventricular response, 108 bpm, RBB pattern. Negative for influenza, RSV, COVID. Currently being evaluated on the general medical floor. He is alert but overall poor historian. He is hard of hearing. He is on 3 L/min nasal cannula, SpO2 is 95%. He denies any significant respiratory distress. Has a congested cough. Current vitals: Temperature 98.4 F, heart rate 107 bpm, blood pressure 103/57 mmHg, nontachypneic, SpO2 95% on 3 L/min nasal cannula. On 11/27/2024, the patient is being seen for a follow-up. Less short of breath compared to yesterday. Markedly improved and less bronchospastic and wheezy. Remains on Symbicort as maintenance and DuoNeb nebulized treatments [id number]. Remains on IV Solu-Medrol 60 mg every 6 hours. Rest of the medications are essentially unchanged. Labs from today show a white cell count of 8 with a hemoglobin 12 and a platelet count of 231. Sodium levels at 133, BUN 38 and a creatinine is 1.2. proBNP level was 1170. Troponins were negative. Procalcitonin level was at 0.32. The blood culture is presumptive MRSA and coagulase negative staph and the patient remains on vancomycin. No clear source for the underlying infection. The patient is also known to be in chronic atrial fibrillation. 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 Maintained on metoprolol 100 mg p.o. twice a day. Maintained also on Cardizem 30 mg p.o. 3 times daily for rate control and the patient is also on anticoagulation with Xarelto and dose modification was done as the patient's renal function improved and the creatinine is down from 1.49 down to 1.2. Patient is also being seen by infectious disease regarding the bacteremia with MRSA/coagulase-negative staph. Reviewed the chest x-ray and there is some cardiomegaly. Increased interstitial changes in the lung bases. Pneumonia is doubtful. Currently on 2 L of oxygen by nasal cannula. Echocardiogram from 11/26/2024 shows left-ventricular ejection fraction of 40 to 45%, mildly impaired without any significant wall motion abnormalities and there is also mild aortic regurgitation. On 11/28/2024, the patient is being seen for a follow-up. The patient was seen earlier this morning and the patient was feeling better. He is still having some coughing spells. Nevertheless, he is less bronchospastic and wheezy. Of concern is a positive blood culture with MRSA and coagulase-negative staph. Blood work from today shows a white cell count of 20 with a hemoglobin 12.3 and a platelet count of 277. His BUN is 42 with a creatinine of 1.1. Serum bicarb is down to 19 and sodium levels at 135. His procalcitonin level is at 0.32. The patient is communicating. He is afebrile. Denies having any nausea vomiting or diarrhea. No other new complaints for now. He is antibiotic coverage includes vancomycin. He remains on bronchodilators. He remains on Symbicort. He remains on IV Solu-Medrol. Long-term anticoagulation is with Xarelto. 11/29/2024, the patient is being seen for a follow-up. Noted the patient was transferred to telemetry unit as the patient was having atrial fibrillation with rapid ventricular response and the patient was started on Cardizem drip which is currently running at 10 mg an hour. Heart rate is under better control. Continues to have some limited wheezing although this is improved. Continues to have episodes of cough and coughing spells and those are also improving. On a separate note, the patient's blood culture was positive for MRSA and the patient remains on IV vancomycin. The white cell count is down to 15.9 with a hemoglobin 11.5 and a platelet count of 266. BUN is 45 with a creatinine 1.2 and a sodium level at 138. Alert and awake and communicating. Extremely hard of hearing. Remains hemodynamically stable. Remains on anticoagulation with Xarelto. Remains on bronchodilators. Remains on IV Solu-Medrol. 11/30/2024, the patient is being seen for a follow-up. Continues to have coughing spells along with some shortness of breath. Continues to bronchospastic and wheezy. Nevertheless, no interval worsening shortness of breath. No pleurisy. No chest pain. No hemoptysis. No fever. The white cell count at 17 with a hemoglobin 11.8 and a platelet count of 259. BUN is 45 with a creatinine of 1.08 and a sodium levels at 139. The patient remains on vancomycin. The patient remains on Symbicort, DuoNeb updrafts and IV Solu-M edrol. Blood culture was positive for MRSA. Repeat blood culture was negative. He is hard of hearing. He is currently on oxygen at 8 L/min nasal cannula with a +97%. FiO2 can be gradually weaned off. On 12/01/2024, patient is still having coughing episodes. Remains on Symbicort. Remains on DuoNeb updrafts. Remains on IV Solu-Medrol 40 mg every 12 hours. Blood sugars 817. No other new complaints otherwise for now. Remains on IV antibiotics regarding his MRSA septicemia and the patient remains on vancomycin. Oxygenation remained stable and the patient remains on 3 L of oxygen by nasal cannula with a pulse ox of 94%. Remains bronchospastic and wheezy. Objective - Vital Signs Vital signs: Vital Signs Temp 98.6 F 12/01/24 07:52 Pulse 106 H 12/01/24 09:19 Resp 18 12/01/24 07:52 BP 120/81 12/01/24 07:52 Pulse Ox 94 L 12/01/24 09:05 FiO2 Intake & Output 11/30/24 12/01/24 12/01/24 18:59 06:59 18:59 Intake Total 454 250 Output Total 500 225 300 Balance -46 -225 -50 Weight 111.2 kg Intake: IV 10 10 Invasive Line 4 10 Invasive Line 5 10 Oral 444 240 Output: Urine 500 225 300 Other: Voiding Method Urinal Urinal Urinal # Voids 2 - Exam GENERAL EXAM: Alert, 84-year-old white male, laying on his left side, hard of hearing, fairly comfortable in no apparent distress. Patient is currently on 8 L of oxygen nasal cannula HEAD: Normocephalic and atraumatic EYES: Normal reaction of pupils, equal size. NOSE: Clear with pink turbinates. THROAT: No erythema or exudates. NECK: No masses, no JVD. CHEST: No chest wall deformity. LUNGS: Equal air entry with bilateral rhonchi. Improved air entry bilaterally the patient is much less bronchospastic and wheezy. No conversational dyspnea or accessory muscle use. CVS: S1 and S2 normal with no audible murmur, irregular rhythm. No extra heart sounds ABDOMEN: No hepatosplenomegaly, active bowel sounds, no guarding or rigidity. SPINE: No scoliosis or deformity SKIN: No rashes. Right hip incision is approximated, without any erythema, warmth, drainage or wound dehiscence CENTRAL NERVOUS SYSTEM: No focal deficits, tone is normal in all 4 extremities. EXTREMITIES: There is no peripheral edema, clubbing, or cyanosis. Peripheral p ulses are intact. - Labs CBC & Chem 7: 11/30/24 06:50 11/30/24 06:50 Labs: Abnormal Lab Results - Last 24 Hours (Table) 11/30/24 11/30/24 11/30/24 Range/Units 11:50 16:49 20:11 POC Glucose (mg/dL) 154 H 138 H 178 H (70-110) mg/dL 12/01/24 Range/Units 06:35 POC Glucose (mg/dL) 128 H (70-110) mg/dL Microbiology - Last 24 Hours (Table) 11/27/24 05:20 Blood Culture - Preliminary Blood 11/28/24 03:30 Gram Stain - Final Sputum Sputum Culture - Final Assessment and Plan Assessment: Acute exacerbation of chronic COPD with secondary shortness of breath, maintained on a combination of bronchodilators and steroids. Clinically improving. Acute hypoxic respiratory failure currently on 3 L of oxygen by nasal cannula Staphylococcal sepsis and blood cultures positive for MRSA and coagulase- negative staph. The white cell count is elevated procalcitonin level is is at 0.32 Recent right direct anterior total hip arthroplasty, October 25, 2024, discharged to [facility] for rehab Chronic systolic heart failure and Echocardiogram from 11/26/2024 shows left- ventricular ejection fraction of 40 to 45%, mildly impaired without any significant wall motion abnormalities and there is also mild aortic regurgitation. Atrial fibrillation with rapid ventricular response, anticoagulated on Xarelto, the patient is currently Cardizem drip and metoprolol Acute kidney injury, improving History of hypertension History of hyperlipidemia History of factor VIII deficiency History of BPH History of nephrolithiasis and previous ureteral stent placement History of frequent urinary tract infections Plan: Titrate oxygen flow to maintain saturation above 90%, currently on 3 L of oxygen by nasal cannula Discontinue the Symbicort and put the patient on a combination of Perforomist and Pulmicort updrafts twice a day Continue DuoNeb updrafts Continue IV Solu-Medrol at the current doses Continue IV vancomycin White cell count is still elevated Renal function is stable Continue anticoagulation with Xarelto Patient is on metoprolol 150 mg p.o. twice a day and Cardizem drip and this can be gradually weaned off and the patient is on anticoagulation with Xarelto. Echocardiogram was noted ID is on the case Cardiology on the case Will continue to follow
--- NOTE | 2024-12-01 13:02 | P.PN ---
Subjective Progress Note Date: 12/01/24 This is a 84-year-old male with past medical history of hypertension, paroxysmal atrial fibrillation on Xarelto, benign prostatic hypertrophy, hiatal hernia, hereditary factor VIII deficiency, hyperlipidemia, mild intermittent asthma, mild COPD, patient was recently admitted to [facility] after he underwent right total hip arthroplasty that was done by Dr. Thakkar and he has been at [facility] for physical therapy rehabilitation, patient developed to have a significant cough yellow phlegm production as well as shortness of breath over the last 2 days, yesterday I received a call from the nursing staff stating that the patient is having dry cough, he was placed on Tessalon Perles 200 mg orally 3 times every day, however the patient became quite hypoxemic, with oxygenation in the range of 84 to 85% he was placed on nonrebreather, he was sent to the ER for evaluation he had a chest x-ray that showed right lower lobe pneumonia, he was started on IV antibiotic in the form of Rocephin and Zithromax he was admitted to the hospital with pulmonary consultation, antibiotics were further discontinued and he was started on vancomycin and cefepime since blood cultures did show evidence of MRSA. 11/26: Patient is laying down in bed in no apparent distress, he continues to have A-fib with RVR his heart rate is running between 115 and 135 cardiology was consulted, metoprolol was increased to 100 mg orally twice every day, continue treatment plan, pulmonary consultation still pending, cardiology consultation still pending, patient blood culture showed evidence of MRSA, he was switched to vancomycin as well as cefepime, await ID input, echocardiogram will be obtained. 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 11/28: Patient is sitting up in the chair continues to be somewhat short of breath, his monitor showing atrial fibrillation with rapid response, cardiology reconsulted, the patient was moved to telemetry unit, he was started on Cardizem drip at 5 mg an hour, he has been maintained on metoprolol 100 mg orally twice every day, repeated blood culture from November 27, 2024 still pending at the time of dictation, patient continues to be on vancomycin for MRSA bacteremia that is likely related to possible MRSA pneumonia. Sputum culture still pending at time of dictation. Patient will be seen in consultation by physical therapy, the plan for the patient to either go back to [facility] or going home from here. 11/29: Patient sitting up in bed in no apparent distress, he denies any chest pain, shortness of breath, he has no abdominal pain, nausea vomiting or diarrhea, he is heart rate is a lot better today, he has been on Cardizem drip at 5 mg an hour, he continues to be on metoprolol 150 mg orally twice every day, his repeated blood culture from 11/27/2024 showed evidence of coagulase-negative methicillin-resistant Staphylococcus aureus, that is resistant to tetracycline and ampicillin and Augmentin and sensitive to prevent everything including vancomycin continue with current treatment plan, sputum culture showed evidence of gram-positive cocci as well as gram-negative bacilli, still preliminary, follow-up with the patient very closely. 11/30: Patient is laying down in bed he is still have some cough minimal from production, no chest pain or shortness of breath, he is not having abdominal pain, nausea vomiting or diarrhea, he has been tolerating treatment very well, he continues to be on Solu-Medrol 40 mg IV push every 12 hours, vancomycin for presumably MRSA pneumonia, as well as MRSA bacteremia, given that the bacteremia did show evidence of possible contaminant, we will continue to follow-up with the patient very closely, likely the patient will be discharged home at the beginning of the week. 12/01. Patient seen and examined. States he feels better. States he gets short of breath on laying. Denies any chest pain or cough. REVIEW OF SYSTEMS: CONSTITUTIONAL: No fever, no malaise,. CARDIOVASCULAR: No chest pain, no palpitations, no syncope. PULMONARY: No shortness of breath, no cough, GASTROINTESTINAL: No diarrhea, no nausea, no vomiting, no abdominal pain. NEUROLOGICAL: No headaches, no weakness, PHYSICAL EXAMINATION: GENERAL: The patient is alert and oriented x3, not in any acute distress. Well developed, well nourished. HEENT: Pupils are round and equally reacting to light. EOMI. No scleral icterus. No conjunctival pallor. Normocephalic, atraumatic. No pharyngeal erythema. No thyromegaly. CARDIOVASCULAR: S1 and S2 present. No murmurs, rubs, or gallops. PULMONARY: Coarse breath sound bilaterally, no wheezing or crackles. ABDOMEN: Soft, nontender, nondistended, normoactive bowel sounds. No palpable organomegaly. MUSCULOSKELETAL: No joint swelling or deformity. EXTREMITIES: No cyanosis, clubbing, or pedal edema. NEUROLOGICAL: Gross neurological examination did not reveal any focal deficits. SKIN: No rashes. Assessment and plan 1. Right lower lobe pneumonia with MRSA bacteremia likely MRSA pneumonia. Monitor vital sign Monitor CBC Monitor CMP Continue breathing treatment Continue IV Solu-Medrol Continue pharmacy to dose vancomycin ID following, recommend antibiotics at discharge in the form of vancomycin, will need PICC placement 2. Atrial fibrillation with rapid ventricular response. Continue Lopressor, Eliquis . 3. 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 Continue metoprolol, Farxiga, losartan, Aldactone 4. COPD with exacerbation. Continue patient on DuoNeb 3 mL nebulization 4 times every day, Symbicort 804 0.5 g 2 puffs twice daily, continue Solu-Medrol 1 mg IV push every 12 hours 5. Mild intermittent asthma. Continue Singulair 10 mg at bedtime, loratadine 10 mg once daily, albuterol nebulizer treatments every 4 hours as needed. 6. Benign prostatic hypertrophy. Continue Flomax 0.4 mg at bedtime, monitor for urinary retention. 7. Hereditary factor VIII deficiency. Continue Xarelto 15 mg once a day. 8. Mixed hyperlipidemia. Continue Zetia 10 mg daily and Atorvastatin 40 mg once a day. 9. Hypertension and hypertensive cardiovascular disease. Continue metoprolol, losartan 10. Major depressive disorder. Continue patient on Effexor XR 37.5 mg orally once every day. Labs and medication were reviewed.. Continue same treatment. Continue with symptomatic treatment. Resume home medication. Monitor labs and vitals. DVT and GI prophylaxis. Further recommendations as per clinical course of the patient Dictation was produced using dragon dictation software. please excuse any grammatical, word or spelling errors. Objective - Vital Signs Vital signs: Vital Signs Temp 98.6 F 12/01/24 07:52 Pulse 106 H 12/01/24 09:19 Resp 18 12/01/24 07:52 BP 120/81 12/01/24 07:52 Pulse Ox 94 L 12/01/24 09:05 FiO2 Intake & Output 11/30/24 12/01/24 12/01/24 18:59 06:59 18:59 Intake Total 454 10 Output Total 500 225 300 Balance -46 -225 -290 Weight 111.2 kg Intake: IV 10 10 Invasive Line 4 10 Invasive Line 5 10 Oral 444 Output: Urine 500 225 300 Other: Voiding Method Urinal Urinal Urinal # Voids 2 - Labs CBC & Chem 7: 11/30/24 06:50 11/30/24 06:50 Labs: Abnormal Lab Results - Last 24 Hours (Table) 11/30/24 11/30/24 11/30/24 Range/Units 11:50 16:49 20:11 POC Glucose (mg/dL) 154 H 138 H 178 H (70-110) mg/dL 12/01/24 Range/Units 06:35 POC Glucose (mg/dL) 128 H (70-110) mg/dL Microbiology - Last 24 Hours (Table) 11/27/24 05:20 Blood Culture - Preliminary Blood 11/28/24 03:30 Gram Stain - Final Sputum Sputum Culture - Final
--- NOTE | 2024-12-01 14:20 | P.PN ---
Subjective Progress Note Date: 12/01/24 Principal diagnosis: Reason for follow-up is MRSA bacteremia/pneumonia Patient is an 84-year-old male with a past medical history significant for diabetes mellitus hypertension hyperlipidemia osteoarthritis pneumonia atrial fibrillation patient has been [facility] the [facility] concerning for increasing shortness of breath and the patient was found to be hypoxic, patient also have a positive blood culture with MRSA prompting this consultation. On today's evaluation that is 12/01/2024, Patient is afebrile patient is currently on 3 L nasal oxygen he is breathing slightly comfortably denies any chest pain still complaining of cough not bringing up any sputum no nausea vomiting no abdominal pain or diarrhea. Patient did have a vancomycin trough of 18.6 blood culture repeat has been negative so far Objective - Vital Signs Vital signs: Vital Signs Temp 98.2 F 12/01/24 11:21 Pulse 103 H 12/01/24 11:21 Resp 20 12/01/24 11:21 BP 117/83 12/01/24 11:21 Pulse Ox 94 L 12/01/24 11:21 FiO2 Intake & Output 11/30/24 12/01/24 12/01/24 18:59 06:59 18:59 Intake Total 454 490 Output Total 500 225 600 Balance -46 -225 -110 Weight 111.2 kg Intake: IV 10 10 Invasive Line 4 10 Invasive Line 5 10 Oral 444 480 Output: Urine 500 225 600 Other: Voiding Method Urinal Urinal Urinal # Voids 2 - Exam GENERAL DESCRIPTION: An elderly male up in the chair in no distress RESPIRATORY SYSTEM: Unlabored breathing , decreased breath sounds at bases HEART: S1 S2 regular rate and rhythm , ABDOMEN: Soft , no tenderness EXTREMITIES: Trace edema feet - Labs CBC & Chem 7: 11/30/24 06:50 11/30/24 06:50 Labs: Abnormal Lab Results - Last 24 Hours (Table) 11/30/24 11/30/24 12/01/24 Range/Units 16:49 20:11 06:35 POC Glucose (mg/dL) 138 H 178 H 128 H (70-110) mg/dL 12/01/24 Range/Units 11:36 POC Glucose (mg/dL) 117 H (70-110) mg/dL Microbiology - Last 24 Hours (Table) 11/27/24 05:20 Blood Culture - Preliminary Blood 11/28/24 03:30 Gram Stain - Final Sputum Sputum Culture - Final Assessment and Plan (1) Sepsis Current Visit: Yes Status: Acute Code(s): A41.9 - SEPSIS, UNSPECIFIED ORGANISM SNOMED Code(s): 83800580 (2) MRSA bacteremia Current Visit: Yes Status: Acute Code(s): R78.81 - BACTEREMIA; B95.62 - METHICILLIN RESIS STAPH INFCT CAUSING [facility]ES [facility] Code(s): 37297853881566659 (3) Pneumonia Current Visit: Yes Status: Acute Code(s): J18.9 - PNEUMONIA, UNSPECIFIED ORGANISM SNOMED Code(s): 024593636 Plan: 1patient presented to hospital with sepsis in this patient who did have low- grade fever tachycardia elevated white count meeting criteria for SIRS/sepsis source likely pneumonia right lower lobe in this patient who is a jail resident concern for resistant gram-positive/gram-negative 2-patient with MRSA bacteremia source likely pneumonia, blood cultures has been repeated 11/27/2024 and has been negative so far sputum culture has been negative so far 3patient is afebrile follow-up blood culture has been negative, patient will be continued with vancomycin pharmacy to dose target trough of 15 and order PICC line for tomorrow for outpatient IV antibiotics Dictation was produced using Simpler dictation software. please excuse any grammatical, word or spelling errors. Time with Patient: Less than 30
[2024-12-01 16:31] LABS: Glucose,Whole Blood 149 mg/dL (70-110)
[2024-12-01] MEDS: BUDESONIDE 0.5 MG/2 ML NEBU INHALATION SCH (20:21)
[2024-12-01] MEDS: FORMOTEROL FUMARATE 20 MCG/2 ML NEBU INHALATION SCH (20:22)
[2024-12-01 20:45] LABS: Glucose,Whole Blood 142 mg/dL (70-110)
[2024-12-02 06:38] LABS: Glucose,Whole Blood 118 mg/dL (70-110)
[2024-12-02 06:44] LABS: African American GFR (CKD) >90 (>60 ml/min/1.73 sqM); Anion Gap 7 mmol/L; Blood Urea Nitrogen 34 mg/dL (9-20); Calcium 8.7 mg/dL (8.4-10.2); Carbon Dioxide 25 mmol/L (22-30); Chloride 107 mmol/L (98-107); Glucose 123 mg/dL (74-99); Non-African American GFR(CKD) 78 (>60 ml/min/1.73 sqM); Potassium 4.8 mmol/L (3.5-5.1); Sodium 139 mmol/L (137-145)
--- NOTE | 2024-12-02 09:54 | XR ---
EXAMINATION TYPE: XR chest 1V DATE OF EXAM: 12/02/2024 9:38 AM COMPARISON: 11/26/2024 CLINICAL INDICATION: Male, 84 years old with history of For placement of PICC line; [facility] TECHNIQUE: XR chest 1V Frontal view of the chest. FINDINGS: Lungs/Pleura: There is no evidence of pleural effusion, focal consolidation, or pneumothorax. Pulmonary vascularity: Unremarkable. Heart/mediastinum: Cardiomediastinal silhouette is unremarkable. Musculoskeletal: No acute osseous pathology. Other findings: None Lines/Tubes: Right internal jugular central venous catheter with distal tip at the cavoatrial junction. Left-sided PICC with distal tip at the superior vena cava/brachiocephalic confluence. IMPRESSION: Left PICC in appropriate position. Stable exam, No acute cardiopulmonary disease/process. [facility], , 12/02/2024 9:52 AM
[2024-12-02 11:29] LABS: Glucose,Whole Blood 152 mg/dL (70-110)
[2024-12-02 13:04] VITALS: BMI 36.1
--- NOTE | 2024-12-02 13:08 | P.PN ---
Subjective Progress Note Date: 12/02/24 HISTORY OF PRESENT ILLNESS This is a 84-year-old male with past medical history of hypertension, paroxysmal atrial fibrillation on Xarelto, benign prostatic hypertrophy, hiatal hernia, hereditary factor VIII deficiency, hyperlipidemia, mild intermittent asthma, mild COPD, patient was recently admitted to [facility] after he underwent right total hip arthroplasty that was done by Dr. Thakkar and he has been at [facility] for physical therapy rehabilitation, patient developed to have a significant cough yellow phlegm production as well as shortness of breath over the last 2 days, yesterday I received a call from the nursing staff stating that the patient is having dry cough, he was placed on Tessalon Perles 200 mg orally 3 times every day, however the patient became quite hypoxemic, with oxygenation in the range of 84 to 85% he was placed on nonrebreather, he was sent to the ER for evaluation he had a chest x-ray that showed right lower lobe pneumonia, he was started on IV antibiotic in the form of Rocephin and Zithromax he was admitted to the hospital with pulmonary consultation, antibiotics were further discontinued and he was started on va ncomycin and cefepime since blood cultures did show evidence of MRSA. 11/26: Patient is laying down in bed in no apparent distress, he continues to have A-fib with RVR his heart rate is running between 115 and 135 cardiology was consulted, metoprolol was increased to 100 mg orally twice every day, continue treatment plan, pulmonary consultation still pending, cardiology consultation still pending, patient blood culture showed evidence of MRSA, he was switched to vancomycin as well as cefepime, await ID input, echocardiogram will be obtained. 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 1/9: Patient is sitting up in the chair continues to be somewhat short of breath, his monitor showing atrial fibrillation with rapid response, cardiology reconsulted, the patient was moved to telemetry unit, he was started on Cardizem drip at 5 mg an hour, he has been maintained on metoprolol 100 mg orally twice every day, repeated blood culture from November 27, 2024 still pending at the time of dictation, patient continues to be on vancomycin for MRSA bacteremia that is likely related to possible MRSA pneumonia. Sputum culture still pending at time of dictation. Patient will be seen in consultation by physical therapy, the plan for the patient to either go back to [facility] or going home from here. 11/29: Patient sitting up in bed in no apparent distress, he denies any chest pain, shortness of breath, he has no abdominal pain, nausea vomiting or diarrhea, he is heart rate is a lot better today, he has been on Cardizem drip at 5 mg an hour, he continues to be on metoprolol 150 mg orally twice every day, his repeated blood culture from 11/27/2024 showed evidence of coagulase-negative methicillin-resistant Staphylococcus aureus, that is resistant to tetracycline and ampicillin and Augmentin and sensitive to prevent everything including vancomycin continue with current treatment plan, sputum culture showed evidence of gram-positive cocci as well as gram-negative bacilli, still preliminary, follow-up with the patient very closely. 11/30: Patient is laying down in bed he is still have some cough minimal from production, no chest pain or shortness of breath, he is not having abdominal pain, nausea vomiting or diarrhea, he has been tolerating treatment very well, he continues to be on Solu-Medrol 40 mg IV push every 12 hours, vancomycin for presumably MRSA pneumonia, as well as MRSA bacteremia, given that the bacteremia did show evidence of possible contaminant, we will continue to follow-up with the patient very closely, likely the patient will be discharged home at the beginning of the week. 12/02: Patient is sitting up in bed he continues to have minimal shortness of breath with exertion, he is requiring about 4 L nasal cannula, he continues to have some cough, minimal phlegm production, sputum culture showed normal respiratory gypsy, repeated blood cultures on November 27, 2024 was negative, PICC line was placed and today in the left upper extremity, no complications, patient has no abdominal pain, has no diarrhea at this time, he continues to be generally weak, the plan is to finish IV antibiotic as an outpatient, the patient does not want to go to [facility], he was asking if he can do it at home. I let the nursing staff know to talk to the welfare case worker about trying to find coverage for the patient for vancomycin as an outpatient. PHYSICAL EXAMINATION Gen: This is an obese 84-year-old male, resting in bed, appears to be in minimal respiratory distress. HEENT: Head is atraumatic, normocephalic. Pupils equal, round. Sclerae is anicteric. NECK: Supple. No JVD. No lymphadenopathy. No thyromegaly. LUNGS: decreased breath sound at bases, few rhonchi minimal expiratory wheezes no chest wall tenderness no intercostal retractions HEART: First heart sound is depressed, second heart sound is normal, 2/6 systolic ejection murmur at the left sternal border, irregular irregular due to atrial fibrillation. ABDOMEN: Soft. Bowel sounds are present. No masses. No tenderness. EXTREMITIES: +1 pedal edema. No calf tenderness. Pain in the left hip. Dorsalis pedis palpable bilaterally. NEUROLOGICAL: Patient is awake, alert and oriented x3. Cranial nerves 2 through 12 are grossly intact, muscle power 4/5 upper and lower extremities bilaterally ASSESSMENT AND PLAN 1. Right lower lobe pneumonia with MRSA bacteremia likely MRSA pneumonia. Cont inue IV antibiotic in the form of vancomycin with pharmacy to dose, continue nebulizer treatment [id number], continue oxygen support, discontinue Solu- Medrol, start the patient on prednisone 40 mg orally once every day, monitor the patient symptoms very closely. 2. Atrial fibrillation with rapid ventricular response. Increase metoprolol to 150 mg orally twice every day, continue Xarelto 15 mg orally once every day, monitor the patient very closely, continue losartan 25 mg once every day, spironolactone 25 mg orally once every day. 3. 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 Continue metoprolol 150 mg orally twice every day, monitor the patient's symptoms very closely continue Farxiga 10 mg orally once every day, continue losartan 25 mg once every day, spironolactone 25 mg orally once every day, monitor the patient input and output and daily weight. Echocardiogram was reviewed. 4. COPD with exacerbation. Continue patient on DuoNeb 3 mL nebulization 4 times every day, Symbicort 804 0.5 g 2 puffs twice daily, oxygen support discontinue Solu-Medrol start the patient on prednisone 40 mg orally once every day. 5. Mild intermittent asthma. Continue Singulair 10 mg at bedtime, loratadine 10 mg once daily, albuterol nebulizer treatments every 4 hours as needed. Switch the patient prednisone 40 mg orally once every day. 6. Benign prostatic hypertrophy. Continue Flomax 0.4 mg at bedtime, monitor for urinary retention. 7. Hereditary factor VIII deficiency. Continue Xarelto 15 mg once a day. 8. Mixed hyperlipidemia. Continue Zetia 10 mg daily and Atorvastatin 40 mg once a day. Monitor the patient lipid panel, keep LDL 55-70 9. Hypertension and hypertensive cardiovascular disease. Continue metoprolo 150 mg orally twice every day, start the patient on losartan 25 milligram orally once every day, monitor the patient blood pressure very closely. 10. GI prophylaxis. Continue patient on Protonix 40 mg po daily. 11. DVT prophylaxis. Continue Xarelto 15 mg once every day 12. Major depressive disorder. Continue patient on Effexor XR 37.5 mg orally once every day. 13. Physical therapy evaluation. 14. bee worker consultation for discharge planning likely home. 15. Full code. Objective - Vital Signs Vital signs: Vital Signs Temp 97.7 F 12/02/24 11:36 Pulse 89 12/02/24 11:36 Resp 19 12/02/24 11:36 BP 125/76 12/02/24 11:36 Pulse Ox 95 12/02/24 11:36 FiO2 Intake & Output 12/01/24 12/02/24 12/02/24 18:59 06:59 18:59 Intake Total 730 Output Total 700 450 Balance 30 -450 Weight 110.8 kg Intake: IV 10 Invasive Line 5 10 Oral 720 Output: Urine 700 450 Other: Voiding Method Urinal Urinal - Labs CBC & Chem 7: 11/30/24 06:50 12/02/24 06:11 Labs: Abnormal Lab Results - Last 24 Hours (Table) 12/01/24 12/01/24 12/02/24 Range/Units 16:29 20:44 06:11 BUN 34 H (9-20) mg/dL Glucose 123 H (74-99) mg/dL POC Glucose (mg/dL) 149 H 142 H (70-110) mg/dL 12/02/24 12/02/24 Range/Units 06:33 11:27 BUN (9-20) mg/dL Glucose (74-99) mg/dL POC Glucose (mg/dL) 118 H 152 H (70-110) mg/dL Microbiology - Last 24 Hours (Table) 11/27/24 05:20 Blood Culture - Final Blood
[2024-12-02 16:22] LABS: Glucose,Whole Blood 115 mg/dL (70-110)
--- NOTE | 2024-12-02 17:09 | P.PN ---
Subjective Progress Note Date: 12/02/24 Patient is an 84-year-old male with past medical history significant for hypertension, atrial fibrillation anticoagulated on Xarelto, hyperlipidemia, asthma/COPD. Of note, recently underwent right total hip arthroplasty on October 25, 2024, and was discharged to [facility] for rehab. While at the [facility], was noted to be getting up to the bathroom and was in acute respiratory distress. He was noted to be hypoxic with an SpO2 in the low 80s. Transferred to [facility] ED for evaluation early yesterday morning. Workup in the ED including a chest x-ray possible right lower lobe airspace opacity with the right lateral lung excluded from the film. Originally started on antibiotics in the ED for possible pneumonia. Blood cultures were positive for MRSA. Patient's antibiotics have since been adjusted to vancomycin and cefepime. Highest recorded temperature 99.8 F. Has been tachycardic. Right hip incision is approximated without any erythema, warmth, drainage, or wound dehiscence no. No significant pain out of proportion. He has been ambulating with walker. CBC: WBC count 17, hemoglobin 13.6, platelets 299. CMP: Sodium 136, potassium 4.6, chloride 100, serum bicarb 27, BUN 38, creatinine 1.49, glucose 139. Lactic was 1.6. NT proBNP 1170. EKG: Atrial fibrillation with rapid ventricular response, 108 bpm, RBB pattern. Negative for influenza, RSV, COVID. Currently being evaluated on the general medical floor. He is alert but overall poor historian. He is hard of hearing. He is on 3 L/min nasal cannula, SpO2 is 95%. He denies any significant respiratory distress. Has a congested cough. Current vitals: Temperature 98.4 F, heart rate 107 bpm, blood pressure 103/57 mmHg, nontachypneic, SpO2 95% on 3 L/min nasal cannula. On 11/27/2024, the patient is being seen for a follow-up. Less short of breath compared to yesterday. Markedly improved and less bronchospastic and wheezy. Remains on Symbicort as maintenance and DuoNeb nebulized treatments a [id number]. Remains on IV Solu-Medrol 60 mg every 6 hours. Rest of the medications are essentially unchanged. Labs from today show a white cell count of 8 with a hemoglobin 12 and a platelet count of 231. Sodium levels at 133, BUN 38 and a creatinine is 1.2. proBNP level was 1170. Troponins were negative. Procalcitonin level was at 0.32. The blood culture is presumptive MRSA and coagulase negative staph and the patient remains on vancomycin. No clear source for the underlying infection. The patient is also known to be in chronic atrial fibrillation. Meat [employer]ver on the case. Maintained on metoprolol 100 mg p.o. twice a day. Maintained also on Cardizem 30 mg p.o. 3 times daily for rate control and the patient is also on anticoagulation with Xarelto and dose modification was done as the patient's renal function improved and the creatinine is down from 1.49 down to 1.2. Patient is also being seen by infectious disease regarding the bacteremia with MRSA/coagulase-negative staph. Reviewed the chest x-ray and there is some cardiomegaly. Increased interstitial changes in the lung bases. Pneumonia is doubtful. Currently on 2 L of oxygen by nasal cannula. Echocardiogram from 11/26/2024 shows left-ventricular ejection fraction of 40 to 45%, mildly impaired without any significant wall motion abnormalities and there is also mild aortic regurgitation. On 11/28/2024, the patient is being seen for a follow-up. The patient was seen earlier this morning and the patient was feeling better. He is still having some coughing spells. Nevertheless, he is less bronchospastic and wheezy. Of concern is a positive blood culture with MRSA and coagulase-negative staph. Blood work from today shows a white cell count of 20 with a hemoglobin 12.3 and a platelet count of 277. His BUN is 42 with a creatinine of 1.1. Serum bicarb is down to 19 and sodium levels at 135. His procalcitonin level is at 0.32. The patient is communicating. He is afebrile. Denies having any nausea vomiting or diarrhea. No other new complaints for now. He is antibiotic coverage includes vancomycin. He remains on bronchodilators. He remains on Symbicort. He remains on IV Solu-Medrol. Long-term anticoagulation is with Xarelto. 11/29/2024, the patient is being seen for a follow-up. Noted the patient was transferred to telemetry unit as the patient was having atrial fibrillation with rapid ventricular response and the patient was started on Cardizem drip which is currently running at 10 mg an hour. Heart rate is under better control. Continues to have some limited wheezing although this is improved. Continues to have episodes of cough and coughing spells and those are also improving. On a separate note, the patient's blood culture was positive for MRSA and the patient remains on IV vancomycin. The white cell count is down to 15.9 with a hemoglobin 11.5 and a platelet count of 266. BUN is 45 with a creatinine 1.2 and a sodium level at 138. Alert and awake and communicating. Extremely hard of hearing. Remains hemodynamically stable. Remains on anticoagulation with Xarelto. Remains on bronchodilators. Remains on IV Solu-Medrol. 11/30/2024, the patient is being seen for a follow-up. Continues to have coughing spells along with some shortness of breath. Continues to bronchospastic and wheezy. Nevertheless, no interval worsening shortness of breath. No pleurisy. No chest pain. No hemoptysis. No fever. The white cell count at 17 with a hemoglobin 11.8 and a platelet count of 259. BUN is 45 with a creatinine of 1.08 and a sodium levels at 139. The patient remains on vancomycin. The patient remains on Symbicort, DuoNeb updrafts and IV Solu-Me drol. Blood culture was positive for MRSA. Repeat blood culture was negative. He is hard of hearing. He is currently on oxygen at 8 L/min nasal cannula with a +97%. FiO2 can be gradually weaned off. On 12/01/2024, patient is still having coughing episodes. Remains on Symbicort. Remains on DuoNeb updrafts. Remains on IV Solu-Medrol 40 mg every 12 hours. Blood sugars 817. No other new complaints otherwise for now. Remains on IV antibiotics regarding his MRSA septicemia and the patient remains on vancomycin. Oxygenation remained stable and the patient remains on 3 L of oxygen by nasal cannula with a pulse ox of 94%. Remains bronchospastic and wheezy. The patient is seen today December 02, 2024 in follow-up on the selective care unit. He is currently sitting up in a chair at the bedside. Awake and alert in no acute distress. Requiring 5 L high flow nasal cannula to maintain O2 saturation in the 90s. He is afebrile. Hemodynamically stable. Blood cultures are positive for MRSA. Sputum culture revealed no growth. Sodium 139. Potassium 4.8. Bicarb 25. BUN 34. Creatinine 0.91. Glucose 123. He remains on DuoNeb inhalations, Pulmicort and Perforomist inhalations, prednisone taper. Antibiotics in the form of vancomycin. Anticoagulated with Xarelto. Objective - Vital Signs Vital signs: Vital Signs Temp 97.7 F 12/02/24 11:36 Pulse 96 12/02/24 16:46 Resp 19 12/02/24 14:00 BP 125/76 12/02/24 11:36 Pulse Ox 95 12/02/24 11:36 FiO2 Intake & Output 12/01/24 12/02/24 12/02/24 18:59 06:59 18:59 Intake Total 730 Output Total 700 450 Balance 30 -450 Weight 110.8 kg 110.8 kg Intake: IV 10 Invasive Line 5 10 Oral 720 Output: Urine 700 450 Other: Voiding Method Urinal Urinal Urinal - Exam GENERAL EXAM: Alert, 84-year-old white male, up in a chair, hard of hearing, comfortable in no apparent distress. Patient is currently on 5 L of oxygen nasal cannula HEAD: Normocephalic and atraumatic EYES: Normal reaction of pupils, equal size. NOSE: Clear with pink turbinates. THROAT: No erythema or exudates. NECK: No masses, no JVD. CHEST: No chest wall deformity. LUNGS: Equal air entry with bilateral rhonchi. Improved air entry bilaterally CVS: S1 and S2 normal with no audible murmur, irregular rhythm. No extra heart sounds ABDOMEN: No hepatosplenomegaly, active bowel sounds, no guarding or rigidity. SPINE: No scoliosis or deformity SKIN: No rashes. Right hip incision is approximated, without any erythema, warmth, drainage or wound dehiscence CENTRAL NERVOUS SYSTEM: No focal deficits, tone is normal in all 4 extremities. EXTREMITIES: There is no peripheral edema, clubbing, or cyanosis. Peripheral pulses are intact. - Labs CBC & Chem 7: 11/30/24 06:50 12/02/24 06:11 Labs: Abnormal Lab Results - Last 24 Hours (Table) 12/01/24 12/02/24 12/02/24 Range/Units 20:44 06:11 06:33 BUN 34 H (9-20) mg/dL Glucose 123 H (74-99) mg/dL POC Glucose (mg/dL) 142 H 118 H (70-110) mg/dL 12/02/24 12/02/24 Range/Units 11:27 16:21 BUN (9-20) mg/dL Glucose (74-99) mg/dL POC Glucose (mg/dL) 152 H 115 H (70-110) mg/dL Microbiology - Last 24 Hours (Table) 11/27/24 05:20 Blood Culture - Final Blood Assessment and Plan Assessment: Acute exacerbation of chronic COPD with secondary shortness of breath, maintained on a combination of bronchodilators and steroids. Clinically improving. Acute hypoxic respiratory failure currently on 5 L of oxygen by nasal cannula Staphylococcal sepsis and blood cultures positive for MRSA and coagulase- negative staph. The white cell count is elevated procalcitonin level is is at 0.32 Recent right direct anterior total hip arthroplasty, October 25, 2024, discharged to [facility] for rehab Chronic systolic heart failure and Echocardiogram from 11/26/2024 shows left- ventricular ejection fraction of 40 to 45%, mildly impaired without any significant wall motion abnormalities and there is also mild aortic regurgitation. Atrial fibrillation with rapid ventricular response, anticoagulated on Xarelto, the patient is currently Cardizem drip and metoprolol Acute kidney injury, improving History of hypertension History of hyperlipidemia History of factor VIII deficiency History of BPH History of nephrolithiasis and previous ureteral stent placement History of frequent urinary tract infections Plan: The patient was seen and evaluated Labs and medications reviewed Continue the current treatment plan Titrate down the FiO2 as tolerated Midline placed today Continue vancomycin We will continue to follow I have personally seen and examined the patient, performed the documentation and the assessment and plan as written. Number of minutes spent on the visit: 10 Dictation was produced using [employer] dictation software. Please excuse any grammatical, word or spelling errors.
[2024-12-02 20:33] LABS: Glucose,Whole Blood 145 mg/dL (70-110)
[2024-12-03 06:11] LABS: Glucose,Whole Blood 114 mg/dL (70-110)
[2024-12-03 08:04] LABS: Basophils % (A) 0 %; Eosinophils % (A) 0 %; HCT 41.7 % (39.0-53.0); HGB 12.7 gm/dL (13.0-17.5); Hypochromasia Marked; Lymphocytes # (A) 0.5 k/uL (1.0-4.8); Lymphocytes % (A) 3 %; MCH 27.5 pg (25.0-35.0); MCHC 30.4 g/dL (31.0-37.0); MCV 90.3 fL (80.0-100.0); Mean Platelet Volume 7.2; Monocytes # (A) 0.7 k/uL (0-1.0); Monocytes % (A) 4 %; Neutrophils # (A) 14.2 k/uL (1.3-7.7); Neutrophils % (A) 92 %; Platelet Count 248 k/uL (150-450); RBC 4.62 m/uL (4.30-5.90); RDW 14.9 % (11.5-15.5); WBC 15.5 k/uL (3.8-10.6)
[2024-12-03 08:56] LABS: ALT 39 U/L (4-49); AST 41 U/L (17-59); African American GFR (CKD) >90 (>60 ml/min/1.73 sqM); Albumin 3.1 g/dL (3.5-5.0); Alkaline Phosphatase 108 U/L (38-126); Anion Gap 5 mmol/L; Blood Urea Nitrogen 29 mg/dL (9-20); Calcium 8.5 mg/dL (8.4-10.2); Carbon Dioxide 26 mmol/L (22-30); Chloride 107 mmol/L (98-107); Glucose 97 mg/dL (74-99); Non-African American GFR(CKD) 80 (>60 ml/min/1.73 sqM); Potassium 4.6 mmol/L (3.5-5.1); Sodium 138 mmol/L (137-145); Total Bilirubin 0.4 mg/dL (0.2-1.3); Total Protein 5.4 g/dL (6.3-8.2)
[2024-12-03] MEDS: predniSONE 20 MG TAB PO SCH (09:05)
--- NOTE | 2024-12-03 09:22 | P.PN ---
Subjective Progress Note Date: 12/02/24 Principal diagnosis: Reason for follow-up is MRSA bacteremia/pneumonia Patient is an 84-year-old male with a past medical history significant for diabetes mellitus hypertension hyperlipidemia osteoarthritis pneumonia atrial fibrillation patient has been brought into the hospital from the local senior living concerning for increasing shortness of breath and the patient was found to be hypoxic, patient also have a positive blood culture with MRSA prompting this consultation. On today's evaluation that is 12/02/2023, patient has been afebrile, patient is breathing comfortably and is currently on 5 L nasal oxygen, patient denies significantly distressed no vomiting or any other changes reported by the nursing staff. Patient did not have a CBC done today his creatinine 0.91 blood culture repeat has been negative chest x-ray did not show any acute cardiopulmonary disease process Objective - Vital Signs Vital signs: Vital Signs Temp 97.7 F 12/02/24 11:36 Pulse 89 12/02/24 11:36 Resp 19 12/02/24 11:36 BP 125/76 12/02/24 11:36 Pulse Ox 95 12/02/24 11:36 FiO2 Intake & Output 12/01/24 12/02/24 12/02/24 18:59 06:59 18:59 Intake Total 730 Output Total 700 450 Balance 30 -450 Weight 110.8 kg 110.8 kg Intake: IV 10 Invasive Line 5 10 Oral 720 Output: Urine 700 450 Other: Voiding Method Urinal Urinal - Exam GENERAL DESCRIPTION: An elderly male up in the chair in no distress RESPIRATORY SYSTEM: Unlabored breathing , decreased breath sounds at bases HEART: S1 S2 regular rate and rhythm , ABDOMEN: Soft , no tenderness EXTREMITIES: Trace edema feet - Labs CBC & Chem 7: 12/03/24 06:42 12/03/24 06:42 Labs: Abnormal Lab Results - Last 24 Hours (Table) 12/01/24 12/01/24 12/02/24 Range/Units 16:29 20:44 06:11 BUN 34 H (9-20) mg/dL Glucose 123 H (74-99) mg/dL POC Glucose (mg/dL) 149 H 142 H (70-110) mg/dL 12/02/24 12/02/24 Range/Units 06:33 11:27 BUN (9-20) mg/dL Glucose (74-99) mg/dL POC Glucose (mg/dL) 118 H 152 H (70-110) mg/dL Microbiology - Last 24 Hours (Table) 11/27/24 05:20 Blood Culture - Final Blood Assessment and Plan (1) Sepsis Current Visit: Yes Status: Acute Code(s): A41.9 - SEPSIS, UNSPECIFIED ORGANISM SNOMED Code(s): 97381120 (2) MRSA bacteremia Current Visit: Yes Status: Acute Code(s): R78.81 - BACTEREMIA; B95.62 - METHICILLIN RESIS STAPH INFCT CAUSING DISEASES CLASSD [id number] SNOMED Code(s): 60617423255259871 (3) Pneumonia Current Visit: Yes Status: Acute Code(s): J18.9 - PNEUMONIA, UNSPECIFIED ORGANISM SNOMED Code(s): 714396338 Plan: 1patient presented to hospital with sepsis in this patient who did have low- grade fever tachycardia elevated white count meeting criteria for SIRS/sepsis source likely pneumonia right lower lobe in this patient who is a senior living resident concern for resistant gram-positive/gram-negative 2-patient with MRSA bacteremia source likely pneumonia, blood cultures has been repeated 11/27/2024 and has been negative so far sputum culture has been negative so far 3patient is afebrile follow-up blood culture has been negative, patient will be continued with vancomycin pharmacy to dose target trough of 15 patient did have a PICC line placement with the x-ray reported no acute infiltrate may benefit from a LIS to make sure no evidence of any endocarditis will discussed with the cardiology team Dictation was produced using [employer] dictation software. please excuse any grammatical, word or spelling errors. Time with Patient: Less than 30
[2024-12-03] MEDS: VANCOMYCIN TROUGH DUE 1 EACH MISC MISCELLANE ONE (09:53)
[2024-12-03 11:13] LABS: Glucose,Whole Blood 125 mg/dL (70-110)
[2024-12-03] MEDS ORDERED: BENZOCAINE SPRAY 1 CAN TOPICAL PRN (13:40)
[2024-12-03] MEDS ORDERED: fentaNYL (PF) 50 MCG/ML 5 ML AMP IVP PRN (13:40)
[2024-12-03] MEDS ORDERED: MIDAZOLAM 2 MG/2 ML VIAL IV PRN (13:40)
--- NOTE | 2024-12-03 14:07 | P.PN ---
Subjective Progress Note Date: 12/03/24 Patient is an 84-year-old male with past medical history significant for hypertension, atrial fibrillation anticoagulated on Xarelto, hyperlipidemia, asthma/COPD. Of note, recently underwent right total hip arthroplasty on October 25, 2024, and was discharged to [facility] for rehab. While at the [facility], was noted to be getting up to the bathroom and was in acute respiratory distress. He was noted to be hypoxic with an SpO2 in the low 80s. Transferred to [facility] ED for evaluation early yesterday morning. Workup in the ED including a chest x-ray possible right lower lobe airspace opacity with the right lateral lung excluded from the film. Originally started on antibiotics in the ED for possible pneumonia. Blood cultures were positive for MRSA. Patient's antibiotics have since been adjusted to vancomycin and cefepime. Highest recorded temperature 99.8 F. Has been tachycardic. Right hip incision is approximated without any erythema, warmth, drainage, or wound dehiscence no. No significant pain out of proportion. He has been ambulating with walker. CBC: WBC count 17, hemoglobin 13.6, platelets 299. CMP: Sodium 136, potassium 4.6, chloride 100, serum bicarb 27, BUN 38, creatinine 1.49, glucose 139. Lactic was 1.6. NT proBNP 1170. EKG: Atrial fibrillation with rapid ventricular response, 108 bpm, RBB pattern. Negative for influenza, RSV, COVID. Currently being evaluated on the general medical floor. He is alert but overall poor historian. He is hard of hearing. He is on 3 L/min nasal cannula, SpO2 is 95%. He denies any significant respiratory distress. Has a congested cough. Current vitals: Temperature 98.4 F, heart rate 107 bpm, blood pressure 103/57 mmHg, nontachypneic, SpO2 95% on 3 L/min nasal cannula. On 11/27/2024, the patient is being seen for a follow-up. Less short of breath compared to yesterday. Markedly improved and less bronchospastic and wheezy. Remains on Symbicort as maintenance and DuoNeb nebulized treatments a [id number]. Remains on IV Solu-Medrol 60 mg every 6 hours. Rest of the medications are essentially unchanged. Labs from today show a white cell count of 8 with a hemoglobin 12 and a platelet count of 231. Sodium levels at 133, BUN 38 and a creatinine is 1.2. proBNP level was 1170. Troponins were negative. Procalcitonin level was at 0.32. The blood culture is presumptive MRSA and coagulase negative staph and the patient remains on vancomycin. No clear source for the underlying infection. The patient is also known to be in chronic atrial fibrillation. Pill Coater on the case. Maintained on metoprolol 100 mg p.o. twice a day. Maintained also on Cardizem 30 mg p.o. 3 times daily for rate control and the patient is also on anticoagulation with Xarelto and dose modification was done as the patient's renal function improved and the creatinine is down from 1.49 down to 1.2. Patient is also being seen by infectious disease regarding the bacteremia with MRSA/coagulase-negative staph. Reviewed the chest x-ray and there is some cardiomegaly. Increased interstitial changes in the lung bases. Pneumonia is doubtful. Currently on 2 L of oxygen by nasal cannula. Echocardiogram from 11/26/2024 shows left-ventricular ejection fraction of 40 to 45%, mildly impaired without any significant wall motion abnormalities and there is also mild aortic regurgitation. On 11/28/2024, the patient is being seen for a follow-up. The patient was seen earlier this morning and the patient was feeling better. He is still having some coughing spells. Nevertheless, he is less bronchospastic and wheezy. Of concern is a positive blood culture with MRSA and coagulase-negative staph. Blood work from today shows a white cell count of 20 with a hemoglobin 12.3 and a platelet count of 277. His BUN is 42 with a creatinine of 1.1. Serum bicarb is down to 19 and sodium levels at 135. His procalcitonin level is at 0.32. The patient is communicating. He is afebrile. Denies having any nausea vomiting or diarrhea. No other new complaints for now. He is antibiotic coverage includes vancomycin. He remains on bronchodilators. He remains on Symbicort. He remains on IV Solu-Medrol. Long-term anticoagulation is with Xarelto. 11/29/2024, the patient is being seen for a follow-up. Noted the patient was transferred to telemetry unit as the patient was having atrial fibrillation with rapid ventricular response and the patient was started on Cardizem drip which is currently running at 10 mg an hour. Heart rate is under better control. Continues to have some limited wheezing although this is improved. Continues to have episodes of cough and coughing spells and those are also improving. On a separate note, the patient's blood culture was positive for MRSA and the patient remains on IV vancomycin. The white cell count is down to 15.9 with a hemoglobin 11.5 and a platelet count of 266. BUN is 45 with a creatinine 1.2 and a sodium level at 138. Alert and awake and communicating. Extremely hard of hearing. Remains hemodynamically stable. Remains on anticoagulation with Xarelto. Remains on bronchodilators. Remains on IV Solu-Medrol. 11/30/2024, the patient is being seen for a follow-up. Continues to have coughing spells along with some shortness of breath. Continues to bronchospastic and wheezy. Nevertheless, no interval worsening shortness of breath. No pleurisy. No chest pain. No hemoptysis. No fever. The white cell count at 17 with a hemoglobin 11.8 and a platelet count of 259. BUN is 45 with a creatinine of 1.08 and a sodium levels at 139. The patient remains on vancomycin. The patient remains on Symbicort, DuoNeb updrafts and IV Solu-Me drol. Blood culture was positive for MRSA. Repeat blood culture was negative. He is hard of hearing. He is currently on oxygen at 8 L/min nasal cannula with a +97%. FiO2 can be gradually weaned off. On 12/01/2024, patient is still having coughing episodes. Remains on Symbicort. Remains on DuoNeb updrafts. Remains on IV Solu-Medrol 40 mg every 12 hours. Blood sugars 817. No other new complaints otherwise for now. Remains on IV antibiotics regarding his MRSA septicemia and the patient remains on vancomycin. Oxygenation remained stable and the patient remains on 3 L of oxygen by nasal cannula with a pulse ox of 94%. Remains bronchospastic and wheezy. The patient is seen today December 02, 2024 in follow-up on the selective care unit. He is currently sitting up in a chair at the bedside. Awake and alert in no acute distress. Requiring 5 L high flow nasal cannula to maintain O2 saturation in the 90s. He is afebrile. Hemodynamically stable. Blood cultures are positive for MRSA. Sputum culture revealed no growth. Sodium 139. Potassium 4.8. Bicarb 25. BUN 34. Creatinine 0.91. Glucose 123. He remains on DuoNeb inhalations, Pulmicort and Perforomist inhalations, prednisone taper. Antibiotics in the form of vancomycin. Anticoagulated with Xarelto. The patient is seen today as an 25 in follow-up on the selective care unit. He is currently resting in bed. Awake and alert in no acute distress. Maintaining O2 saturations in the 90s on 5 L/min per nasal cannula. He is afebrile. Hemodynamically stable. Blood cultures were positive for MRSA. Sputum culture revealed no growth. White count 15.5. Hemoglobin 12.7. Platelets 248. Sodium 138. Potassium 4.6. Bicarb 26. BUN 29. Creatinine 0.89. Glucose 97. He remains on DuoNeb inhalations, Pulmicort and Perforomist inhalations. Continued on Tessalon Perles. Anticoagulated with Xarelto. Remains on vancomycin. Objective - Vital Signs Vital signs: Vital Signs Temp 97.8 F 12/03/24 08:20 Pulse 100 12/03/24 12:12 Resp 18 12/03/24 08:30 BP 133/86 12/03/24 08:20 Pulse Ox 98 12/03/24 08:20 FiO2 Intake & Output 12/02/24 12/03/24 12/03/24 18:59 06:59 18:59 Intake Total 240 462 Output Total 550 425 Balance -310 -425 462 Weight 110.8 kg 111.5 kg Intake: Oral 240 462 Output: Urine 550 425 Other: Voiding Method Urinal Urinal Urinal # Voids 1 - Exam GENERAL EXAM: Alert, 84-year-old male, resting in bed, hard of hearing, comfortable in no apparent distress. Currently on 5 L of oxygen nasal cannula HEAD: Normocephalic and atraumatic EYES: Normal reaction of pupils, equal size. NOSE: Clear with pink turbinates. THROAT: No erythema or exudates. NECK: No masses, no JVD. CHEST: No chest wall deformity. LUNGS: Equal air entry with bilateral rhonchi. Improved air entry bilaterally CVS: S1 and S2 normal with no audible murmur, irregular rhythm. No extra heart sounds ABDOMEN: No hepatosplenomegaly, active bowel sounds, no guarding or rigidity. SPINE: No scoliosis or deformity SKIN: No rashes. Right hip incision is approximated, without any erythema, warmth, drainage or wound dehiscence CENTRAL NERVOUS SYSTEM: No focal deficits, tone is normal in all 4 extremities. EXTREMITIES: There is no peripheral edema, clubbing, or cyanosis. Peripheral pulses are intact. - Labs CBC & Chem 7: 12/03/24 06:42 12/03/24 06:42 Labs: Abnormal Lab Results - Last 24 Hours (Table) 12/02/24 12/02/24 12/03/24 Range/Units 16:21 20:32 06:10 WBC (3.8-10.6) k/uL Hgb (13.0-17.5) gm/dL MCHC (31.0-37.0) g/dL Neutrophils # (1.3-7.7) k/uL Lymphocytes # (1.0-4.8) k/uL BUN (9-20) mg/dL POC Glucose (mg/dL) 115 H 145 H 114 H (70-110) mg/dL Total Protein (6.3-8.2) g/dL Albumin (3.5-5.0) g/dL 12/03/24 12/03/24 12/03/24 Range/Units 06:42 06:42 11:11 WBC 15.5 H (3.8-10.6) k/uL Hgb 12.7 L (13.0-17.5) gm/dL MCHC 30.4 L (31.0-37.0) g/dL Neutrophils # 14.2 H (1.3-7.7) k/uL Lymphocytes # 0.5 L (1.0-4.8) k/uL BUN 29 H (9-20) mg/dL POC Glucose (mg/dL) 125 H (70-110) mg/dL Total Protein 5.4 L (6.3-8.2) g/dL Albumin 3.1 L (3.5-5.0) g/dL Microbiology - Last 24 Hours (Table) 11/27/24 05:20 Blood Culture - Final Blood Assessment and Plan Assessment: Acute exacerbation of chronic COPD with secondary shortness of breath, maintained on a combination of bronchodilators and steroids. Clinically improving. Acute hypoxic respiratory failure currently on 5 L of oxygen by nasal cannula Staphylococcal sepsis and blood cultures positive for MRSA and coagulase- negative staph. The white cell count is elevated procalcitonin level is is at 0.32 Recent right direct anterior total hip arthroplasty, October 25, 2024, discharged to [facility] for rehab Chronic systolic heart failure and Echocardiogram from 11/26/2024 shows left- ventricular ejection fraction of 40 to 45%, mildly impaired without any significant wall motion abnormalities and there is also mild aortic regurgitation. Atrial fibrillation with rapid ventricular response, anticoagulated on Xarelto, the patient is currently Cardizem drip and metoprolol Acute kidney injury, improving History of hypertension History of hyperlipidemia History of factor VIII deficiency History of BPH History of nephrolithiasis and previous ureteral stent placement History of frequent urinary tract infections Plan: The patient was seen and evaluated Labs and medications reviewed Continue the current treatment plan Titrate down the FiO2 as tolerated Midline placed Continue vancomycin Plan is for possible [facility] at discharge I have personally seen and examined the patient, performed the documentation and the assessment and plan as written. Number of minutes spent on the visit: 10 Dictation was produced using [employer] dictation software. Please excuse any grammatical, word or spelling errors.
--- NOTE | 2024-12-03 15:24 | P.PN ---
Subjective Progress Note Date: 12/03/24 Principal diagnosis: Reason for follow-up is MRSA bacteremia/pneumonia Patient is an 84-year-old male with a past medical history significant for diabetes mellitus hypertension hyperlipidemia osteoarthritis pneumonia atrial fibrillation patient has been brought into the hospital from the local correction concerning for increasing shortness of breath and the patient was found to be hypoxic, patient also have a positive blood culture with MRSA prompting this consultation. On today's evaluation that is 12/03/2023, Patient is afebrile this morning patient denies having any chest pain breathing comfortably and cough has decreased intensity, the patient is still requiring 5 L nasal oxygen, patient denies any abdominal pain no diarrhea no nausea no vomiting Patient white count is down to 15.5 creatinine 0.89 Vanco trough is 18.1 blood culture repeat has been negative Objective - Vital Signs Vital signs: Vital Signs Temp 97.8 F 12/03/24 08:20 Pulse 100 12/03/24 12:12 Resp 18 12/03/24 08:30 BP 133/86 12/03/24 08:20 Pulse Ox 98 12/03/24 08:20 FiO2 Intake & Output 12/02/24 12/03/24 12/03/24 18:59 06:59 18:59 Intake Total 240 462 Output Total 550 425 Balance -310 -425 462 Weight 110.8 kg 111.5 kg Intake: Oral 240 462 Output: Urine 550 425 Other: Voiding Method Urinal Urinal Urinal # Voids 1 - Exam GENERAL DESCRIPTION: An elderly male up in the chair in no distress RESPIRATORY SYSTEM: Unlabored breathing , decreased breath sounds at bases HEART: S1 S2 regular rate and rhythm , ABDOMEN: Soft , no tenderness EXTREMITIES: Trace edema feet - Labs CBC & Chem 7: 12/03/24 06:42 12/03/24 06:42 Labs: Abnormal Lab Results - Last 24 Hours (Table) 12/02/24 12/02/24 12/03/24 Range/Units 16:21 20:32 06:10 WBC (3.8-10.6) k/uL Hgb (13.0-17.5) gm/dL MCHC (31.0-37.0) g/dL Neutrophils # (1.3-7.7) k/uL Lymphocytes # (1.0-4.8) k/uL BUN (9-20) mg/dL POC Glucose (mg/dL) 115 H 145 H 114 H (70-110) mg/dL Total Protein (6.3-8.2) g/dL Albumin (3.5-5.0) g/dL 12/03/24 12/03/24 12/03/24 Range/Units 06:42 06:42 11:11 WBC 15.5 H (3.8-10.6) k/uL Hgb 12.7 L (13.0-17.5) gm/dL MCHC 30.4 L (31.0-37.0) g/dL Neutrophils # 14.2 H (1.3-7.7) k/uL Lymphocytes # 0.5 L (1.0-4.8) k/uL BUN 29 H (9-20) mg/dL POC Glucose (mg/dL) 125 H (70-110) mg/dL Total Protein 5.4 L (6.3-8.2) g/dL Albumin 3.1 L (3.5-5.0) g/dL Microbiology - Last 24 Hours (Table) 11/27/24 05:20 Blood Culture - Final Blood Assessment and Plan (1) Sepsis Current Visit: Yes Status: Acute Code(s): A41.9 - SEPSIS, UNSPECIFIED ORGANISM SNOMED Code(s): 62063121 (2) MRSA bacteremia Current Visit: Yes Status: Acute Code(s): R78.81 - BACTEREMIA; B95.62 - METHICILLIN RESIS STAPH INFCT CAUSING DISEASES [facility] SNOMED Code(s): 99180370236830172 (3) Pneumonia Current Visit: Yes Status: Acute Code(s): J18.9 - PNEUMONIA, UNSPECIFIED ORGANISM SNOMED Code(s): 963361370 Plan: 1patient presented to hospital with sepsis in this patient who did have low- grade fever tachycardia elevated white count meeting criteria for SIRS/sepsis source likely pneumonia right lower lobe in 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 please excuse any grammatical, word or spelling errors. Time with Patient: Less than 30
[2024-12-03 16:18] LABS: Glucose,Whole Blood 142 mg/dL (70-110)
[2024-12-03 19:59] LABS: Glucose,Whole Blood 254 mg/dL (70-110)
[2024-12-04 04:40] VITALS: TEMP 97.8
[2024-12-04 06:05] LABS: Glucose,Whole Blood 100 mg/dL (70-110)
--- NOTE | 2024-12-04 07:31 | XR ---
EXAMINATION TYPE: XR chest 1V portable DATE OF EXAM: 12/04/2024 6:28 AM COMPARISON: Chest radiograph from two days prior. CLINICAL INDICATION: Male, 84 years old with history of shortness of breath; TECHNIQUE: XR chest 1V portable Frontal view of the chest. FINDINGS: Lungs/Pleura: There is no evidence of pleural effusion, focal consolidation, or pneumothorax. Pulmonary vascularity: Unremarkable. Heart/mediastinum: Cardiomediastinal silhouette is unremarkable. Musculoskeletal: No acute osseous pathology. Other findings: None Left PICC with tip in the SVC. IMPRESSION: No acute cardiopulmonary disease/process. [facility], , 12/04/2024 7:28 AM
[2024-12-04] MEDS: SODIUM CHLORIDE 0.9% 500 ML 500 ML IV ONE (08:33)
[2024-12-04] MEDS: BENZOCAINE SPRAY 1 EACH MM ONE ×2 (08:41→08:45)
[2024-12-04] MEDS: MIDAZOLAM 2 MG/2 ML VIAL IVP ONE ×2 (08:46→08:49)
[2024-12-04] MEDS: fentaNYL (PF) 50 MCG/ML 2 ML AMP IVP ONE (08:46)
--- NOTE | 2024-12-04 09:14 | P.PCN ---
Date of Procedure: 12/04/24 Description of Procedure: Indication: Bacteremia Procedure Description: After explaining the procedure to the patient, it's risk and complications, blood pressure, heart rate and O2 saturation were monitored. The throat was sprayed with Cetacaine. Patient received 3 mg intravenous Versed, 50 mcg intravenous fentanyl. The probe was introduced into the esophagus without difficulty. Images were obtained. Following that, the probe was removed. There was no immediate complication. The images were suboptimal because of his breathing pattern. Findings: Left atrial size is normal, left atrial appendage is normal. Left ventricular size and systolic function are normal. The mitral valve revealed mitral annulus calcification with mild thickening of the leaflets and no evidence of vegetations. The aortic valve is a tricuspid valve, calcified with preserved opening and no vegetations. The tricuspid valve was suboptimally visualized but no gross vegetations were noted. Descending thoracic aorta appears to be normal. No pericardial effusion was noted. Contrast bubble study revealed minimal [id number] shunting through a patent foramen ovale. Doppler: Pulse wave and color Doppler were obtained, and revealed moderate mitral with mild aortic and tricuspid regurgitation. There was evidence of [id number] shunting through a patent foramen ovale Conclusion: 1. Normal left ventricular size and systolic function 2. Normal appearance of the left atrial appendage 3. Moderate mitral with mild aortic regurgitation 4. Vsll-go-[id number] shunting through a patent foramen ovale with minimal reversal of flow with bubble study. 5. No evidence of vegetations on the aortic or mitral valve. The tricuspid valve was suboptimally visualized but showed no gross vegetations. 6. No pericardial effusion. Duration of sedation: 15 minutes.
[2024-12-04 11:47] LABS: Glucose,Whole Blood 89 mg/dL (70-110)
[2024-12-04 12:05] VITALS: BP 121/86; RESP 18
--- NOTE | 2024-12-04 12:30 | P.PN ---
Subjective Progress Note Date: 12/04/24 This is an 84-year-old male patient of Dr. Davis with past medical history of chronic permanent atrial fibrillation on Xarelto, hypertension, peripheral vascular disease, family history of premature coronary artery disease, history of tobacco use and dependence, multivessel CAD, mixed hyperlipidemia, ischemic cardiomyopathy. We have been asked to evaluate the patient for A-fib with RVR. Patient's son states that he received a call from [facility] where patient is receiving subacute rehab that his pulse ox had dropped down to 80%. Patient also had congestion and a deep raspy cough. Patient denies having chest pain, no palpitations. Patient was admitted to the hospital and treated for right low er lobe pneumonia and MRSA bacteremia, A-fib with RVR, chronic diastolic heart failure, COPD with mild exacerbation as well as mild intermittent asthma. Patient was found to have A-fib with RVR with heart rate in the 120s to 150s this morning. Attending has increased his Lopressor to 100 mg twice daily from 75 mg twice daily. Heart rate is better controlled at the time of evaluation. Blood pressure 107/62, heart rate 100-112, pulse ox 95% on 2 L nasal cannula. -EKG: Atrial fibrillation with ventricular rate of 108 -Chest x-ray: #1 partial visualization of likely right lower lobe pneumonia. #2 similar mild to moderate cardiomegaly. Similar interstitial density correlate to include mild pulmonary vascular congestion. Patchy interstitial opacities remain in the lower lungs right greater than left. -Laboratory studies: WBC 17, hemoglobin 13.6, INR 1.3, BUN 38, creatinine 1.49, potassium 4.6, troponin negative x 1. proBNP 1170. Alkaline phosphatase 139. Influenza A, influenza B, RSV, COVID-19 not detected. -Home cardiac medications: Atorvastatin 40 mg at bedtime, Farxiga 10 mg daily, Zetia 10 mg daily, Lasix 40 mg twice daily, metoprolol tartrate 75 mg twice daily, potassium chloride 20 mill equivalents daily, Xarelto 20 mg daily -Cardiac catheterization performed 09/19/2023 revealed 20% distal left main, 20% proximal LAD, 20% proximal circumflex, 20% mid RCA and right dominant. -Echocardiogram performed on 03/22/2024 in the office revealed EF 42% with mild , mild TR, mild AR. -Event monitor performed 01/25/2024 - 01/26/2024: Primary rhythm atrial fibrillation/flutter with average heart rate 93, minimal heart rate 69 and maximum heart rate 144. 100% burden of atrial fibrillation or flutter. PVC burden 0.08%. 1 episode of ventricular tachycardia 4 beats. Overall, atrial fibrillation with controlled ventricular rate. 11/27/2024 Patient seen and examined. Patient states that his shortness of breath and coughing are a lot better. He feels a lot better in general. Heart rate is running between 90 and 114, telemetry is atrial fibrillation. Blood pressure 107/72, pulse ox 90% on 2 L nasal cannula. Repeat blood work reveals WBC 8.9, hemoglobin 12, sodium 133, potassium 4.4, BUN 38 creatinine 1.2 Echocardiogram reveals EF 40 to 45%, limited views. Mild aortic regurgitation. 11/29/2024 Cardiology was reconsulted for atrial fibrillation. Echocardiogram does show EF of 40-45%. His heart rates are not well-controlled. He is out of bed in chair and feeling okay. His shortness of breath is better but he is not at baseline. Still with a cough. He does admit that he had prior cardioversion x 2 in the past and did feel better with this. 11/30/2024 Patient is out of bed in chair. He is doing okay. Still has cough however shortness of breath improving. WBC 17.3, hemoglobin 11.8, creatinine 1.08. Heart rate is better controlled 901 100s on telemetry. 12/04/2024 Cardiology signed off earlier in the week. We have been asked to reassess the patient and performed LIS which was scheduled for this morning. LIS revealed normal left ventricular size and systolic function, normal left atrial appendage, moderate mitral and mild aortic regurgitation. There was left to right shunting through PFO with minimal reversal of flow with bubble study. No evidence of vegetation on the aortic or mitral valve. Tricuspid valve was suboptimally visualized but showed no gross vegetations. No pericardial effusion. Results of the echocardiogram reviewed with the patient although due to difficulty hearing, patient may not comprehend all of the results. He is cleared for discharge from cardiology perspective. Physical examination: Gen: This is an 84-year-old male in no acute distress. VS: reviewed HEENT: Head is atraumatic, normocephalic. Pupils equal, round. Sclerae is anicteric. NECK: Supple. No JVD. LUNGS: Bilateral rhonchi. No intercostal retractions. HEART: Irregular rate and rhythm. 2/6 systolic ejection murmur at the base. ABDOMEN: Soft No tenderness. EXTREMITIES: No pedal edema. No calf tenderness. NEUROLOGICAL: Patient is awake, alert and oriented x3. Assessment: Permanent atrial fibrillation on Xarelto with controlled rate Acute hypoxic respiratory failure with possible right pneumonia COPD exacerbation MRSA bacteremia Acute kidney injury, resolved Recent right total hip arthroplasty 10/25/2024 Hypertension Hyperlipidemia Multivessel mild coronary artery disease, nonobstructive, cardiac cath done 09/19/2023 Remote history of tobacco use Plan: Continue patient's current cardiac medications Cardiology to sign off, please call with any questions or concerns. Follow-up in office in 1 week. Nurse practitioner note has been reviewed, I agree with documented findings and plan of care. Patient was seen and examined. Objective - Vital Signs Vital signs: Vital Signs Temp 97.8 F 12/04/24 08:00 Pulse 110 H 12/04/24 09:05 Resp 20 12/04/24 09:05 BP 116/97 12/04/24 09:05 Pulse Ox 93 L 12/04/24 09:05 FiO2 Intake & Output 12/03/24 12/04/24 12/04/24 18:59 06:59 18:59 Intake Total 702 500 20 Output Total 500 775 Balance 202 -275 20 Weight 112.9 kg Intake: IV 500 20 Vancomycin 1,750 mg In 500 Sodium Chloride 0.9% 500 ml 500 ml @ 167 mls/hr IVPB Q16H [facility] Rx#: [id number] Oral 702 Output: Urine 500 775 Other: Voiding Method Urinal Urinal Urinal # Voids 1 - Labs CBC & Chem 7: 12/03/24 06:42 12/03/24 06:42 Labs: Abnormal Lab Results - Last 24 Hours (Table) 12/03/24 12/03/24 12/03/24 Range/Units 11:11 16:12 19:57 POC Glucose (mg/dL) 125 H 142 H 254 H (70-110) mg/dL
--- NOTE | 2024-12-04 12:43 | P.DS ---
Providers Date of admission: 11/25/24 05:16 Expected date of discharge: 12/04/24 Attending physician: Buzz Zimmerman Consults: 11/25/24 05:13 Consult Physician Routine Consulting Provider: Smooth Welsh Consult Reason/Comments: hypoxia, pna Do you want consulting provider notified?: Yes 11/26/24 05:05 Consult Physician Routine Consulting Provider: Bert Leos Consult Reason/Comments: Afib RVR Do you want consulting provider notified?: Yes, Notify in am 11/26/24 05:07 Consult Physician Routine Consulting Provider: Silverio Agosto Consult Reason/Comments: positive blood cultures Do you want consulting provider notified?: Yes, Notify in am 12/03/24 13:39 Consult Physician Routine Consulting Provider: Dori Wells Consult Reason/Comments: LIS tomorrow with Dr. Davis Do you want consulting provider notified?: Yes Primary care physician: Buzz Zimmerman [facility] Course: HISTORY OF PRESENT ILLNESS This is a 84-year-old male with past medical history of hypertension, paroxysmal atrial fibrillation on Xarelto, benign prostatic hypertrophy, hiatal hernia, hereditary factor VIII deficiency, hyperlipidemia, mild intermittent asthma, mild COPD, patient was recently admitted to [facility] after he underwent right total hip arthroplasty that was done by Dr. Thakkar and he has been at [facility] for physical therapy rehabilitation, patient developed to have a significant cough yellow phlegm production as well as shortness of breath over the last 2 days, yesterday I received a call from the nursing staff stating that the patient is having dry cough, he was placed on Tessalon Perles 200 mg orally 3 times every day, however the patient became quite hypoxemic, with oxygenation in the range of 84 to 85% he was placed on nonrebreather, he was sent to the ER for evaluation he had a chest x-ray that showed right lower lobe pneumonia, he was started on IV antibiotic in the form of Rocephin and Zithromax he was admitted to the hospital with pulmonary consultation, antibiotics were further discontinued and he was started on vancomycin and cefepime since blood cultures did show evidence of MRSA. 11/26: Patient is laying down in bed in no apparent distress, he continues to have A-fib with RVR his heart rate is running between 115 and 135 cardiology was consulted, metoprolol was increased to 100 mg orally twice every day, continue treatment plan, pulmonary consultation still pending, cardiology consultation still pending, patient blood culture showed evidence of MRSA, he was switched to vancomycin as well as cefepime, await ID input, echocardiogram will be obtained. 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 11/28: Patient is sitting up in the chair continues to be somewhat short of breath, his monitor showing atrial fibrillation with rapid response, cardiology reconsulted, the patient was moved to telemetry unit, he was started on Cardizem drip at 5 mg an hour, he has been maintained on metoprolol 100 mg orally twice every day, repeated blood culture from November 27, 2024 still pending at the time of dictation, patient continues to be on vancomycin for MRSA bacteremia that is likely related to possible MRSA pneumonia. Sputum culture still pending at time of dictation. Patient will be seen in consultation by physical therapy, the plan for the patient to either go back to [facility] or going home from here. 11/29: Patient sitting up in bed in no apparent distress, he denies any chest pain, shortness of breath, he has no abdominal pain, nausea vomiting or diarrhea, he is heart rate is a lot better today, he has been on Cardizem drip at 5 mg an hour, he continues to be on metoprolol 150 mg orally twice every day, his repeated blood culture from 11/27/2024 showed evidence of coagulase-negative methicillin-resistant Staphylococcus aureus, that is resistant to tetracycline and ampicillin and Augmentin and sensitive to prevent everything including van comycin continue with current treatment plan, sputum culture showed evidence of gram-positive cocci as well as gram-negative bacilli, still preliminary, follow- up with the patient very closely. 11/30: Patient is laying down in bed he is still have some cough minimal from production, no chest pain or shortness of breath, he is not having abdominal pain, nausea vomiting or diarrhea, he has been tolerating treatment very well, he continues to be on Solu-Medrol 40 mg IV push every 12 hours, vancomycin for presumably MRSA pneumonia, as well as MRSA bacteremia, given that the bacteremia did show evidence of possible contaminant, we will continue to follow-up with the patient very closely, likely the patient will be discharged home at the beginning of the week. 12/02: Patient is sitting up in bed he continues to have minimal shortness of breath with exertion, he is requiring about 4 L nasal cannula, he continues to have some cough, minimal phlegm production, sputum culture showed normal respi ratory gypsy, repeated blood cultures on November 27, 2024 was negative, PICC line was placed and today in the left upper extremity, no complications, patient has no abdominal pain, has no diarrhea at this time, he continues to be generally weak, the plan is to finish IV antibiotic as an outpatient, the patient does not want to go to [facility], he was asking if he can do it at home. I let the nursing staff know to talk to the pillowcase turner about trying to find coverage for the patient for vancomycin as an outpatient. 12/04: Due to persistent bacteremia, Dr. Agosto has recommended LIS which was performed this morning by Dr. Davis which revealed normal left ventricular size and systolic function, normal left atrial appendage, moderate mitral and mild aortic regurgitation. There was left to right shunting through PFO with minimal reversal of flow with bubble study. No evidence of vegetation on the aortic or mitral valve. Tricuspid valve was suboptimally visualized but showed no gross vegetations. No pericardial effusion. No further cardiac workup was indicated and cardiology has cleared the patient for discharge. Dr. Thomas has recommended DISCHARGE DIAGNOSES 1. Right lower lobe pneumonia with MRSA bacteremia likely MRSA pneumonia. 2. Atrial fibrillation with rapid ventricular response, currently rate controlled. 3. 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 4. COPD with exacerbation. 5. Mild intermittent asthma. 6. Benign prostatic hypertrophy. 7. Hereditary factor VIII deficiency. 8. Mixed hyperlipidemia. 9. Hypertension and hypertensive cardiovascular disease. 10. Major depressive disorder. Discharge plan: Subacute rehab at [facility] Greater than 35 minutes was utilized and coordinating patient's discharge. Impression and plan of care have been directed as dictated by the signing physician. Melissa Hairston nurse practitioner acting as scribe for signing physician. Patient Condition at Discharge: Fair Plan - Discharge Summary Discharge Rx Participant: No New Discharge Prescriptions: New Metoprolol Tartrate [Lopressor] 150 mg PO BID tab predniSONE 0 mg PO DIRECTED #30 tab Vancomycin 1,750 mg IVPB Q16H 10 Days each Spironolactone [Aldactone] 25 mg PO DAILY tab Losartan [Cozaar] 25 mg PO DAILY tab Continue Tamsulosin HCl [Flomax] 0.4 mg PO HS Fluticasone/Umeclidin/Vilanter [Trelegy Ellipta 200-62.5-25] 1 puff INHALATION RT-DAILY Ezetimibe [Zetia] 10 mg PO DAILY Ammonium Lactate Lotion [Lac-Hydrin 12% Lotion] 1 applic TOPICAL BID PRN PRN Reason: dermatitis on legs Omeprazole 20 mg PO DAILY #30 tab Sennosides [Senokot] 17.2 mg PO DAILY PRN PRN Reason: Constipation polyethylene glycoL 3350 [Miralax] 17 gm PO DAILY PRN PRN Reason: Constipation Acetaminophen [Tylenol 8 Hour] 650 mg PO Q6H PRN PRN Reason: Pain Benzonatate [Tessalon Perles] 100 mg PO TID Docusate [Colace] 100 mg PO BID@0800,1600 Rivaroxaban [Xarelto] 20 mg PO DAILY Albuterol Sulfate [Albuterol Sulfate Hfa] 1 puff INHALATION RT-Q4H PRN PRN Reason: Shortness Of Breath Fluticasone Nasal [place] [Flonase Nasal [place]] 1 spray EA NOSTRIL BID PRN PRN Reason: Allergy Symptoms Atorvastatin [Lipitor] 40 mg PO HS Levocetirizine Dihydrochloride [Xyzal] 5 mg PO HS Dapagliflozin Propanediol [Farxiga] 10 mg PO DAILY #30 tab Budesonide/Formoterol Fumarate [Breyna 160-4.5 Mcg Inhaler] 1 puff INHALATION RT-BID Venlafaxine HCl [Effexor XR] 37.5 mg PO HS Cholecalciferol (Vitamin D3) [Vitamin D3 (50 Mcg = 2000 Iu)] 50 mcg PO DAILY Ondansetron [Zofran] 4 mg PO Q6HR PRN #30 tab PRN Reason: Nausea guaiFENesin SYRUP 100MG/5ML [Robitussin] 200 mg PO Q6HR PRN ml PRN Reason: Cough Naloxone HCl [Narcan] 4 mg NASAL ONCE PRN PRN Reason: OVERDOSE SUSPECTED Ipratropium-Albuterol Nebulize [Duoneb 0.5 mg-3 mg/3 ml Soln] 3 ml INHALATION RT-Q6H Furosemide [Lasix] 40 mg PO DAILY@0500,1300 Potassium Chloride [Klor-Con M20] 20 meq PO DAILY Changed HYDROcodone/APAP 5-325MG [Somers 5-325] 1 tab PO Q6HR PRN #12 tab PRN Reason: Pain Discontinued Metoprolol Tartrate [Lopressor] 75 mg PO BID@0800,1600 Discharge Medication List Tamsulosin HCl [Flomax] 0.4 mg PO HS 05/29/18 [History] Albuterol Sulfate [Albuterol Sulfate Hfa] 1 puff INHALATION RT-Q4H PRN 10/07/21 [History] Fluticasone Nasal [place] [Flonase Nasal [place]] 1 spray EA NOSTRIL BID PRN 06/02/22 [History] Fluticasone/Umeclidin/Vilanter [Trelegy Ellipta 200-62.5-25] 1 puff INHALATION RT-DAILY 09/07/23 [History] Atorvastatin [Lipitor] 40 mg PO HS 10/16/23 [History] Ezetimibe [Zetia] 10 mg PO DAILY 10/16/23 [History] Levocetirizine Dihydrochloride [Xyzal] 5 mg PO HS 10/16/23 [History] Dapagliflozin Propanediol [Farxiga] 10 mg PO DAILY #30 tab 03/27/24 [Rx] Ammonium Lactate Lotion [Lac-Hydrin 12% Lotion] 1 applic TOPICAL BID PRN 09/13/24 [History] Budesonide/Formoterol Fumarate [Breyna 160-4.5 Mcg Inhaler] 1 puff INHALATION RT-BID 09/13/24 [History] Venlafaxine HCl [Effexor XR] 37.5 mg PO HS 09/13/24 [History] Cholecalciferol (Vitamin D3) [Vitamin D3 (50 Mcg = 2000 Iu)] 50 mcg PO DAILY 10/21/24 [History] Omeprazole 20 mg PO DAILY #30 tab 10/25/24 [Rx] Ondansetron [Zofran] 4 mg PO Q6HR PRN #30 tab 10/25/24 [Rx] guaiFENesin SYRUP 100MG/5ML [Robitussin] 200 mg PO Q6HR PRN ml 10/30/24 [Rx] Acetaminophen [Tylenol 8 Hour] 650 mg PO Q6H PRN 11/25/24 [History] Benzonatate [Tessalon Perles] 100 mg PO TID 11/25/24 [History] Docusate [Colace] 100 mg PO BID@0800,1600 11/25/24 [History] Furosemide [Lasix] 40 mg PO DAILY@0500,1300 11/25/24 [History] Ipratropium-Albuterol Nebulize [Duoneb 0.5 mg-3 mg/3 ml Soln] 3 ml INHALATION RT-Q6H 11/25/24 [History] Naloxone HCl [Narcan] 4 mg NASAL ONCE PRN 11/25/24 [History] Potassium Chloride [Klor-Con M20] 20 meq PO DAILY 11/25/24 [History] Rivaroxaban [Xarelto] 20 mg PO DAILY 11/25/24 [History] Sennosides [Senokot] 17.2 mg PO DAILY PRN 11/25/24 [History] polyethylene glycoL 3350 [Miralax] 17 gm PO DAILY PRN 11/25/24 [History] HYDROcodone/APAP 5-325MG [Somers 5-325] 1 tab PO Q6HR PRN #12 tab 12/04/24 [Rx] Losartan [Cozaar] 25 mg PO DAILY tab 12/04/24 [Rx] Metoprolol Tartrate [Lopressor] 150 mg PO BID tab 12/04/24 [Rx] Spironolactone [Aldactone] 25 mg PO DAILY tab 12/04/24 [Rx] Vancomycin 1,750 mg IVPB Q16H 10 Days each 12/04/24 [Rx] predniSONE 0 mg PO DIRECTED #30 tab 12/04/24 [Rx] Follow up Appointment(s)/Referral(s): George Davis MD [STAFF PHYSICIAN] - 1 Week Buzz Zimmerman MD [Primary Care Provider] - 1 Week (at [facility]) Ambulatory/Diagnostic Orders: Complete Blood Count w/diff [LAB.AMB] Location: None Selected Comprehensive Metabolic Panel [LAB.AMB] Location: None Selected Vancomycin,Trough [LAB.AMB] Location: None Selected Discharge Disposition: TRANSFER TO SNF/ECF
[2024-12-04 15:18] VITALS: PULSE 106
--- NOTE | 2024-12-04 15:59 | P.PN ---
Subjective Progress Note Date: 12/04/24 Patient is an 84-year-old male with past medical history significant for hypertension, atrial fibrillation anticoagulated on Xarelto, hyperlipidemia, asthma/COPD. Of note, recently underwent right total hip arthroplasty on October 25, 2024, and was discharged to [facility] for rehab. While at the [facility], was noted to be getting up to the bathroom and was in acute respiratory distress. He was noted to be hypoxic with an SpO2 in the low 80s. Transferred to [facility] ED for evaluation early yesterday morning. Workup in the ED including a chest x-ray possible right lower lobe airspace opacity with the right lateral lung excluded from the film. Originally started on antibiotics in the ED for possible pneumonia. Blood cultures were positive for MRSA. Patient's antibiotics have since been adjusted to vancomycin and cefepime. Highest recorded temperature 99.8 F. Has been tachycardic. Right hip incision is approximated without any erythema, warmth, drainage, or wound dehiscence no. No significant pain out of proportion. He has been ambulating with walker. CBC: WBC count 17, hemoglobin 13.6, platelets 299. CMP: Sodium 136, potassium 4.6, chloride 100, serum bicarb 27, BUN 38, creatinine 1.49, glucose 139. Lactic was 1.6. NT proBNP 1170. EKG: Atrial fibrillation with rapid ventricular response, 108 bpm, RBB pattern. Negative for influenza, RSV, COVID. Currently being evaluated on the general medical floor. He is alert but overall poor historian. He is hard of hearing. He is on 3 L/min nasal cannula, SpO2 is 95%. He denies any significant respiratory distress. Has a congested cough. Current vitals: Temperature 98.4 F, heart rate 107 bpm, blood pressure 103/57 mmHg, nontachypneic, SpO2 95% on 3 L/min nasal cannula. On 11/27/2024, the patient is being seen for a follow-up. Less short of breath compared to yesterday. Markedly improved and less bronchospastic and wheezy. Remains on Symbicort as maintenance and DuoNeb nebulized treatments a [id number]. Remains on IV Solu-Medrol 60 mg every 6 hours. Rest of the medications are essentially unchanged. Labs from today show a white cell count of 8 with a hemoglobin 12 and a platelet count of 231. Sodium levels at 133, BUN 38 and a creatinine is 1.2. proBNP level was 1170. Troponins were negative. Procalcitonin level was at 0.32. The blood culture is presumptive MRSA and coagulase negative staph and the patient remains on vancomycin. No clear source for the underlying infection. The patient is also known to be in chronic atrial fibrillation. [employer] on the case. Maintained on metoprolol 100 mg p.o. twice a day. Maintained also on Cardizem 30 mg p.o. 3 times daily for rate control and the patient is also on anticoagulation with Xarelto and dose modification was done as the patient's renal function improved and the creatinine is down from 1.49 down to 1.2. Patient is also being seen by infectious disease regarding the bacteremia with MRSA/coagulase-negative staph. Reviewed the chest x-ray and there is some cardiomegaly. Increased interstitial changes in the lung bases. Pneumonia is doubtful. Currently on 2 L of oxygen by nasal cannula. Echocardiogram from 11/26/2024 shows left-ventricular ejection fraction of 40 to 45%, mildly impaired without any significant wall motion abnormalities and there is also mild aortic regurgitation. On 11/28/2024, the patient is being seen for a follow-up. The patient was seen earlier this morning and the patient was feeling better. He is still having some coughing spells. Nevertheless, he is less bronchospastic and wheezy. Of concern is a positive blood culture with MRSA and coagulase-negative staph. Blood work from today shows a white cell count of 20 with a hemoglobin 12.3 and a platelet count of 277. His BUN is 42 with a creatinine of 1.1. Serum bicarb is down to 19 and sodium levels at 135. His procalcitonin level is at 0.32. The patient is communicating. He is afebrile. Denies having any nausea vomiting or diarrhea. No other new complaints for now. He is antibiotic coverage includes vancomycin. He remains on bronchodilators. He remains on Symbicort. He remains on IV Solu-Medrol. Long-term anticoagulation is with Xarelto. 11/29/2024, the patient is being seen for a follow-up. Noted the patient was transferred to telemetry unit as the patient was having atrial fibrillation with rapid ventricular response and the patient was started on Cardizem drip which is currently running at 10 mg an hour. Heart rate is under better control. Continues to have some limited wheezing although this is improved. Continues to have episodes of cough and coughing spells and those are also improving. On a separate note, the patient's blood culture was positive for MRSA and the patient remains on IV vancomycin. The white cell count is down to 15.9 with a hemoglobin 11.5 and a platelet count of 266. BUN is 45 with a creatinine 1.2 and a sodium level at 138. Alert and awake and communicating. Extremely hard of hearing. Remains hemodynamically stable. Remains on anticoagulation with Xarelto. Remains on bronchodilators. Remains on IV Solu-Medrol. 11/30/2024, the patient is being seen for a follow-up. Continues to have coughing spells along with some shortness of breath. Continues to bronchospastic and wheezy. Nevertheless, no interval worsening shortness of breath. No pleurisy. No chest pain. No hemoptysis. No fever. The white cell count at 17 with a hemoglobin 11.8 and a platelet count of 259. BUN is 45 with a creatinine of 1.08 and a sodium levels at 139. The patient remains on vancomycin. The patient remains on Symbicort, DuoNeb updrafts and IV Solu-Me drol. Blood culture was positive for MRSA. Repeat blood culture was negative. He is hard of hearing. He is currently on oxygen at 8 L/min nasal cannula with a +97%. FiO2 can be gradually weaned off. On 12/01/2024, patient is still having coughing episodes. Remains on Symbicort. Remains on DuoNeb updrafts. Remains on IV Solu-Medrol 40 mg every 12 hours. Blood sugars 817. No other new complaints otherwise for now. Remains on IV antibiotics regarding his MRSA septicemia and the patient remains on vancomycin. Oxygenation remained stable and the patient remains on 3 L of oxygen by nasal cannula with a pulse ox of 94%. Remains bronchospastic and wheezy. The patient is seen today December 02, 2024 in follow-up on the selective care unit. He is currently sitting up in a chair at the bedside. Awake and alert in no acute distress. Requiring 5 L high flow nasal cannula to maintain O2 saturation in the 90s. He is afebrile. Hemodynamically stable. Blood cultures are positive for MRSA. Sputum culture revealed no growth. Sodium 139. Potassium 4.8. Bicarb 25. BUN 34. Creatinine 0.91. Glucose 123. He remains on DuoNeb inhalations, Pulmicort and Perforomist inhalations, prednisone taper. Antibiotics in the form of vancomycin. Anticoagulated with Xarelto. The patient is seen today December 03 2024 in follow-up on the selective care unit. He is currently resting in bed. Awake and alert in no acute distress. Maintaining O2 saturations in the 90s on 5 L/min per nasal cannula. He is afebrile. Hemodynamically stable. Blood cultures were positive for MRSA. Sput um culture revealed no growth. White count 15.5. Hemoglobin 12.7. Platelets 248. Sodium 138. Potassium 4.6. Bicarb 26. BUN 29. Creatinine 0.89. Glucose 97. He remains on DuoNeb inhalations, Pulmicort and Perforomist inhalations. Continued on Tessalon Perles. Anticoagulated with Xarelto. Remains on vancomycin. The patient is seen today December 04, 2024 in follow-up on the selective care unit. He is currently sitting up in a chair. Awake and alert in no acute distress. Maintaining O2 saturations in the 90s on 4 L/min per nasal cannula. He is feeling better today compared to yesterday. He did undergo a LIS today that revealed a normal left ventricular size and systolic function. [id number] shunting through a patent foramen ovale with minimal reversal of flow with bubble study. No evidence of vegetation on the aortic, tricuspid or mitral valve. Sputum culture had revealed no growth. Follow-up blood cultures revealed no growth. Glucose 100. He remains on vancomycin. Anticoagulated with Xarelto. Continued on bronchodilators. Objective - Vital Signs Vital signs: Vital Signs Temp 97.8 F 12/04/24 12:00 Pulse 106 H 12/04/24 15:18 Resp 18 12/04/24 12:00 BP 121/86 12/04/24 12:00 Pulse Ox 97 12/04/24 12:00 FiO2 Intake & Output 12/03/24 12/04/24 12/04/24 18:59 06:59 18:59 Intake Total 702 500 20 Output Total 500 775 Balance 202 -275 20 Weight 112.9 kg Intake: IV 500 20 Vancomycin 1,750 mg In 500 Sodium Chloride 0.9% 500 ml 500 ml @ 167 mls/hr IVPB Q16H [facility] Rx#: [id number] Oral 702 Output: Urine 500 775 Other: Voiding Method Urinal Urinal Urinal # Voids 1 - Exam GENERAL EXAM: Alert, 84-year-old male, up in a chair, hard of hearing, in no apparent distress. Currently on 4 L of oxygen nasal cannula HEAD: Normocephalic and atraumatic EYES: Normal reaction of pupils, equal size. NOSE: Clear with pink turbinates. THROAT: No erythema or exudates. NECK: No masses, no JVD. CHEST: No chest wall deformity. LUNGS: Equal air entry with bilateral rhonchi. Improved air entry bilaterally CVS: S1 and S2 normal with no audible murmur, irregular rhythm. No extra heart sounds ABDOMEN: No hepatosplenomegaly, active bowel sounds, no guarding or rigidity. SPINE: No scoliosis or deformity SKIN: No rashes. Right hip incision is approximated, without any erythema, warmth, drainage or wound dehiscence CENTRAL NERVOUS SYSTEM: No focal deficits, tone is normal in all 4 extremities. EXTREMITIES: There is no peripheral edema, clubbing, or cyanosis. Peripheral pulses are intact. - Labs CBC & Chem 7: 12/03/24 06:42 12/03/24 06:42 Labs: Abnormal Lab Results - Last 24 Hours (Table) 12/03/24 12/03/24 Range/Units 16:12 19:57 POC Glucose (mg/dL) 142 H 254 H (70-110) mg/dL Assessment and Plan Assessment: Acute exacerbation of chronic COPD with secondary shortness of breath, maintained on a combination of bronchodilators and steroids. Clinically improving. Acute hypoxic respiratory failure currently on 4 L of oxygen by nasal cannula Staphylococcal sepsis and blood cultures positive for MRSA and coagulase- negative staph. The white cell count is elevated procalcitonin level is is at 0.32. LIS revealed no evidence of vegetation Recent right direct anterior total hip arthroplasty, October 25, 2024, discharged to [facility] for rehab Chronic systolic heart failure and Echocardiogram from 11/26/2024 shows left- ventricular ejection fraction of 40 to 45%, mildly impaired without any significant wall motion abnormalities and there is also mild aortic regurgitation. Atrial fibrillation with rapid ventricular response, anticoagulated on Xarelto, the patient is currently Cardizem drip and metoprolol Acute kidney injury, improving History of hypertension History of hyperlipidemia History of factor VIII deficiency History of BPH History of nephrolithiasis and previous ureteral stent placement History of frequent urinary tract infections Plan: The patient was seen and evaluated LIS, labs and medications reviewed No evidence of vegetation Continue the current treatment plan Titrate down the FiO2 as tolerated Continue vancomycin Plan is for [facility] at discharge I have personally seen and examined the patient, performed the documentation and the assessment and plan as written. Number of minutes spent on the visit: 10 Dictation was produced using [employer] dictation software. Please excuse any grammatical, word or spelling errors.
== END 2024-12-04 16:24 | DRG 871 ==
LOC: EC 02:57 → 3SCARD 05:16 → 5NMEDONC 10:00 → 3SCARD 11-28 15:02 → UNDODISIN 11-30 16:35
PROVIDERS: ADMIT Internal Medicine; ATTEND Internal Medicine
PROC: 05HB33Z Insertion of Infusion Device into Right Basilic Vein, Percutaneous Approach (ICD-10-PCS; 2024-12-02)
PROC: B24BZZ4 Ultrasonography of Heart with Aorta, Transesophageal (ICD-10-PCS; principal; 2024-12-04 08:30)
DX: A41.02 Sepsis due to Methicillin resistant Staphylococcus aureus (principal); D66 Hereditary factor VIII deficiency; J15.212 Pneumonia due to Methicillin resistant Staphylococcus aureus; J96.01 Acute respiratory failure with hypoxia; I47.20 Ventricular tachycardia, unspecified; I42.8 Other cardiomyopathies; I48.21 Permanent atrial fibrillation; Q21.12 Patent foramen ovale; I50.22 Chronic systolic (congestive) heart failure; J44.0 Chronic obstructive pulmonary disease with (acute) lower respiratory infection; J44.1 Chronic obstructive pulmonary disease with (acute) exacerbation; N17.9 Acute kidney failure, unspecified; I11.0 Hypertensive heart disease with heart failure; E11.51 Type 2 diabetes mellitus with diabetic peripheral angiopathy without gangrene; F32.9 Major depressive disorder, single episode, unspecified; I08.3 Combined rheumatic disorders of mitral, aortic and tricuspid valves; J45.20 Mild intermittent asthma, uncomplicated; E78.2 Mixed hyperlipidemia; I49.3 Ventricular premature depolarization; N40.1 Benign prostatic hyperplasia with lower urinary tract symptoms; N39.498 Other specified urinary incontinence; I25.10 Atherosclerotic heart disease of native coronary artery without angina pectoris; K21.9 Gastro-esophageal reflux disease without esophagitis; K44.9 Diaphragmatic hernia without obstruction or gangrene; M19.90 Unspecified osteoarthritis, unspecified site; H91.93 Unspecified hearing loss, bilateral; Z79.51 Long term (current) use of inhaled steroids; Z79.84 Long term (current) use of oral hypoglycemic drugs; Z79.01 Long term (current) use of anticoagulants; Z79.899 Other long term (current) drug therapy; Z87.891 Personal history of nicotine dependence; Z87.01 Personal history of pneumonia (recurrent); Z87.440 Personal history of urinary (tract) infections; Z86.718 Personal history of other venous thrombosis and embolism; Z85.9 Personal history of malignant neoplasm, unspecified; Z96.653 Presence of artificial knee joint, bilateral; Z96.643 Presence of artificial hip joint, bilateral; Z88.8 Allergy status to other drugs, medicaments and biological substances
CPT/HCPCS: 36415; 36573; 71045; 80048; 80053; 80202; 83605; 83735; 83880; 84145; 84484; 85025; 85610; 85730; 87040; 87070; 87077; 87186; 87205; 87449; 87636; 93005; 93306; 93312; 93320; 93325; 94640; 94760; 96360; 96361; 99285

== ENCOUNTER 2024-12-06 13:10 | Inpatient (IN) | payer MEDICARE ==
--- NOTE | 2024-12-06 13:51 | XR ---
EXAMINATION TYPE: XR chest 1V portable DATE OF EXAM: 12/06/2024 1:43 PM COMPARISON: Chest radiographs from 12/04/2024 CLINICAL INDICATION: Male, 84 years old with history of sob; TECHNIQUE: XR chest 1V portable Frontal view of the chest. FINDINGS: Rotated exam. Lungs/Pleura: There is no evidence of pleural effusion, focal consolidation, or pneumothorax. Pulmonary vascularity: Unremarkable. Heart/mediastinum: Cardiomediastinal silhouette is unremarkable. Musculoskeletal: No acute osseous pathology. Other findings: None IMPRESSION: Rotated exam no obvious change from prior [facility] Maurisio Walton, , 12/06/2024 1:49 PM
[2024-12-06 14:04] LABS: ALT 37 U/L (4-49); AST 32 U/L (17-59); African American GFR (CKD) 76 (>60 ml/min/1.73 sqM); Albumin 3.2 g/dL (3.5-5.0); Alkaline Phosphatase 113 U/L (38-126); Anion Gap 10 mmol/L; Blood Urea Nitrogen 33 mg/dL (9-20); Calcium 8.8 mg/dL (8.4-10.2); Carbon Dioxide 23 mmol/L (22-30); Chloride 102 mmol/L (98-107); Glucose 129 mg/dL (74-99); Non-African American GFR(CKD) 66 (>60 ml/min/1.73 sqM); Potassium 4.7 mmol/L (3.5-5.1); Sodium 135 mmol/L (137-145); Total Bilirubin 0.7 mg/dL (0.2-1.3); Total Protein 5.7 g/dL (6.3-8.2)
[2024-12-06 14:10] LABS: INR 1.5 (<1.2)
[2024-12-06 14:11] LABS: Partial Thromboplastin Time 26.1 sec (22.0-30.0); Prothrombin Time 15.5 sec (10.0-12.5)
[2024-12-06 14:13] LABS: NT-Pro-B-Type Natriuretic Pept 2080 pg/mL
[2024-12-06 14:17] LABS: Basophils % (A) 0 %; Eosinophils # (A) 0.1 k/uL (0-0.7); Eosinophils % (A) 0 %; HCT 42.3 % (39.0-53.0); HGB 13.5 gm/dL (13.0-17.5); Hypochromasia Slight; Lymphocytes # (A) 0.3 k/uL (1.0-4.8); Lymphocytes % (A) 1 %; MCH 27.9 pg (25.0-35.0); MCHC 31.8 g/dL (31.0-37.0); MCV 87.6 fL (80.0-100.0); Mean Platelet Volume 7.9; Monocytes # (A) 0.8 k/uL (0-1.0); Monocytes % (A) 2 %; Neutrophils # (A) 32.7 k/uL (1.3-7.7); Neutrophils % (A) 96 %; Platelet Count 206 k/uL (150-450); RBC 4.83 m/uL (4.30-5.90); RDW 15.4 % (11.5-15.5)
[2024-12-06 14:21] LABS: WBC 34.1 k/uL (3.8-10.6)
[2024-12-06 14:33] LABS: Influenza A Detected (Not Detectd); Influenza B Not Detected (Not Detectd); RSV Not Detected (Not Detectd)
--- NOTE | 2024-12-06 15:16 | ED ---
SOB HPI - General Chief Complaint: Shortness of Breath Stated Complaint: Respiratory Distressed Time Seen by Provider: 12/06/24 13:20 Source: patient, EMS Mode of arrival: EMS Limitations: no limitations - History of Present Illness Initial Comments: 84-year-old male with past medical history of COPD, CHF who presents emergency department with shortness of breath. Patient was just discharged from our facility 2 days ago. He was diagnosed with pneumonia. Today the patient was having increasing shortness of breath. EMS states that the patient was previously on 2 L. He wears 4 L with activity. They increased the patient to 8 L nonrebreather when he was still hypoxic in the 80s. Patient was then placed on a CPAP by EMS. Patient currently on steroids and Vanco. He was residing at [facility]. He denies any chest pain. No other alleviating, precipitating or modifying factors. - Related Data Home Medications Medication Instructions Recorded Confirmed Tamsulosin HCl [Flomax] 0.4 mg PO HS 05/29/18 12/06/24 Albuterol Sulfate [Albuterol 1 puff INHALATION RT-Q4H PRN 10/07/21 12/06/24 Sulfate Hfa] Fluticasone Nasal [place] [Flonase 1 spr EA NOSTRIL Q12H PRN 06/02/22 12/06/24 Nasal [place]] Fluticasone/Umeclidin/Vilanter 1 puff INHALATION RT-DAILY 09/07/23 12/06/24 [Trelegy Ellipta 200-62.5-25] Atorvastatin [Lipitor] 40 mg PO HS 10/16/23 12/06/24 Ezetimibe [Zetia] 10 mg PO HS 10/16/23 12/06/24 Levocetirizine Dihydrochloride 5 mg PO HS 10/16/23 12/06/24 [Xyzal] Budesonide/Formoterol Fumarate 1 puff INHALATION RT-BID@0800,1600 09/13/24 12/06/24 [Breyna 160-4.5 Mcg Inhaler] Cholecalciferol (Vitamin D3) 50 mcg PO DAILY 10/21/24 12/06/24 [Vitamin D3 (50 Mcg = 2000 Iu)] Acetaminophen [Tylenol 8 Hour] 650 mg PO Q6H PRN 11/25/24 12/06/24 Benzonatate [Tessalon Perles] 100 mg PO TID 11/25/24 12/06/24 Docusate [Colace] 100 mg PO BID@0800,1600 11/25/24 12/06/24 Furosemide [Lasix] 40 mg PO BID 11/25/24 12/06/24 Ipratropium-Albuterol Nebulize 3 ml INHALATION RT-Q6H 11/25/24 12/06/24 [Duoneb 0.5 mg-3 mg/3 ml Soln] Naloxone HCl [Narcan] 4 mg NASAL ONCE PRN 11/25/24 12/06/24 Potassium Chloride [Klor-Con M20] 20 meq PO DAILY 11/25/24 12/06/24 Rivaroxaban [Xarelto] 20 mg PO DAILY 11/25/24 12/06/24 Sennosides [Senokot] 17.2 mg PO DAILY PRN 11/25/24 12/06/24 polyethylene glycoL 3350 [Miralax] 17 gm PO Q24H PRN 11/25/24 12/06/24 Ammonium Lactate Cream [Lac-Hydrin 1 applic TOPICAL Q12H PRN 12/06/24 12/06/24 12% Cream] Magnesium Hydroxide [Milk of 2,400 mg PO Q24H PRN 12/06/24 12/06/24 Magnesia] Omeprazole 20 mg PO HS 12/06/24 12/06/24 Venlafaxine HCl ER [Effexor Xr] 37.5 mg PO HS 12/06/24 12/06/24 predniSONE See Taper PO DAILY 12/06/24 12/06/24 Previous Rx's Medication Instructions Recorded Dapagliflozin Propanediol [Farxiga] 10 mg PO DAILY #30 tab 03/27/24 Ondansetron [Zofran] 4 mg PO Q6HR PRN #30 tab 10/25/24 guaiFENesin SYRUP 100MG/5ML 200 mg PO Q6HR PRN ml 10/30/24 [Robitussin] HYDROcodone/APAP 5-325MG [Wallback 1 tab PO Q6HR PRN #12 tab 12/04/24 5-325] Losartan [Cozaar] 25 mg PO DAILY tab 12/04/24 Metoprolol Tartrate [Lopressor] 150 mg PO BID tab 12/04/24 Spironolactone [Aldactone] 25 mg PO DAILY tab 12/04/24 Vancomycin 1,750 mg IVPB Q16H 10 Days each 12/04/24 Allergies Allergy/AdvReac Type Severity Reaction Status Date / Time rosuvastatin [From Crestor] AdvReac muscle Verified 12/06/24 14:08 soreness/cramps Review of Systems ROS Statement: Those systems with pertinent positive or pertinent negative responses have been documented in the HPI. ROS Other: All systems not noted in ROS Statement are negative. Past Medical History Past Medical History: Atrial Fibrillation, Asthma, Cancer, Diabetes Mellitus, Deep Vein Thrombosis (DVT), GERD/Reflux, Hearing Disorder / Deafness, H yperlipidemia, Hypertension, Osteoarthritis (OA), Pneumonia, Prostate Disorder Additional Past Medical History / Comment(s): Hx pneumonia yrs ago, RSV/ hospitalized x 2 weeks in ICU, dvt R calf, hiatal hernia, hx kidney stones, ORUTSARARMIUT use of bilateral hearing aids. skin ca; "pre diabetic". History of Any Multi-Drug Resistant Organisms: MRSA Date of last positivie culture/infection: 11/25/24 MDRO Source:: blood Past Surgical History: Joint Replacement, Orthopedic Surgery Additional Past Surgical History / Comment(s): Bilateral knee replacements., tot al L hip arthroplasty, LIS and cardioversions, elbow surg, cystoscopy & right ureter stent Aug 2024, stent removed Sep 2024. Right TAD. Past Anesthesia/Blood Transfusion Reactions: No Reported Reaction Past Psychological History: Depression Smoking Status: Never smoker Past Alcohol Use History: Rare Past Drug Use History: None Reported - Past Family History Mother Family Medical History: No Reported History Father Additional Family Medical History / Comment(s): open heart General Exam Limitations: no limitations General appearance: alert, in distress Head exam: Present: atraumatic, normocephalic, normal inspection Eye exam: Present: normal appearance, PERRL, EOMI. Absent: scleral icterus, conjunctival injection, periorbital swelling ENT exam: Present: normal exam, mucous membranes moist Neck exam: Present: normal inspection. Absent: tenderness, meningismus, lymphadenopathy Respiratory exam: Present: respiratory distress, wheezes, accessory muscle use, decreased breath sounds Cardiovascular Exam: Present: normal rhythm, tachycardia GI/Abdominal exam: Present: soft, normal bowel sounds. Absent: distended, tenderness, guarding, rebound, rigid Back exam: Present: normal inspection Neurological exam: Present: alert, oriented X3, CN II-XII intact Psychiatric exam: Present: normal affect, normal mood Course Vital Signs 12/06/24 12/06/24 12/06/24 13:13 13:20 13:37 Temperature Pulse Rate 110 H 108 H Pulse Rate [ Technical Support Consultant ] Respiratory 32 H 20 Rate Blood Pressure 93/77 108/48 Blood Pressure [Right Arm] O2 Sat by Pulse 91 L 94 L Oximetry Fraction of 80 Inspired Oxygen (FIO2) 12/06/24 12/06/24 12/06/24 15:25 15:34 15:44 Temperature Pulse Rate 111 H Pulse Rate [ Technical Support Consultant ] Respiratory 26 H Rate Blood Pressure Blood Pressure [Right Arm] O2 Sat by Pulse Oximetry Fraction of 80 Inspired Oxygen (FIO2) 12/06/24 12/06/24 12/06/24 15:52 18:08 19:16 Temperature Pulse Rate 110 H 141 H Pulse Rate [ Technical Support Consultant ] Respiratory 26 H Rate Blood Pressure 140/97 Blood Pressure [Right Arm] O2 Sat by Pulse 99 Oximetry Fraction of 100 Inspired Oxygen (FIO2) 12/06/24 12/06/24 12/06/24 19:40 19:45 19:47 Temperature Pulse Rate Pulse Rate [ 174 H 146 H Technical Support Consultant ] Respiratory 25 H 24 24 Rate Blood Pressure Blood Pressure 134/117 134/110 [Right Arm] O2 Sat by Pulse Oximetry Fraction of 100 Inspired Oxygen (FIO2) 12/06/24 12/06/24 12/06/24 19:50 19:55 20:00 Temperature Pulse Rate Pulse Rate [ 115 H 120 H 112 H Technical Support Consultant ] Respiratory 24 24 24 Rate Blood Pressure Blood Pressure 128/85 128/85 71/45 [Right Arm] O2 Sat by Pulse Oximetry Fraction of Inspired Oxygen (FIO2) 12/06/24 12/06/24 12/06/24 20:05 20:15 20:30 Temperature Pulse Rate Pulse Rate [ 115 H 108 H 110 H Technical Support Consultant ] Respiratory 24 26 H 24 Rate Blood Pressure Blood Pressure 73/42 87/53 84/53 [Right Arm] O2 Sat by Pulse Oximetry Fraction of Inspired Oxygen (FIO2) 12/06/24 12/06/24 12/06/24 21:00 21:09 21:10 Temperature Pulse Rate 118 H 104 H Pulse Rate [ 111 H Technical Support Consultant ] Respiratory 24 21 27 H Rate Blood Pressure 90/57 90/57 Blood Pressure 89/58 [Right Arm] O2 Sat by Pulse 99 100 Oximetry Fraction of Inspired Oxygen (FIO2) 12/06/24 12/06/24 12/06/24 21:20 21:30 21:40 Temperature Pulse Rate 118 H 128 H 115 H Pulse Rate [ 115 H Technical Support Consultant ] Respiratory 22 23 21 Rate Blood Pressure 101/86 100/68 98/62 Blood Pressure 79/55 [Right Arm] O2 Sat by Pulse 98 98 98 Oximetry Fraction of Inspired Oxygen (FIO2) 12/06/24 12/06/24 12/06/24 21:50 22:00 22:10 Temperature Pulse Rate 112 H 109 H 107 H Pulse Rate [ 104 H Technical Support Consultant ] Respiratory 15 27 H 27 H Rate Blood Pressure 85/65 83/37 83/55 Blood Pressure 80/62 [Right Arm] O2 Sat by Pulse 97 94 L 92 L Oximetry Fraction of Inspired Oxygen (FIO2) 12/06/24 12/06/24 12/06/24 22:20 22:30 22:40 Temperature Pulse Rate 109 H 92 100 Pulse Rate [ Technical Support Consultant ] Respiratory 19 22 21 Rate Blood Pressure 78/56 84/70 72/62 Blood Pressure [Right Arm] O2 Sat by Pulse 94 L 94 L 94 L Oximetry Fraction of Inspired Oxygen (FIO2) 12/06/24 12/06/24 12/06/24 22:50 23:00 23:01 Temperature Pulse Rate 104 H 107 H Pulse Rate [ 95 Technical Support Consultant ] Respiratory 21 24 26 H Rate Blood Pressure 74/42 79/69 Blood Pressure 66/47 [Right Arm] O2 Sat by Pulse 94 L 94 L Oximetry Fraction of Inspired Oxygen (FIO2) 12/06/24 12/06/24 12/06/24 23:10 23:20 23:30 Temperature Pulse Rate 105 H 106 H 113 H Pulse Rate [ Technical Support Consultant ] Respiratory 10 L 11 L 10 L Rate Blood Pressure 66/47 57/32 89/29 Blood Pressure [Right Arm] O2 Sat by Pulse 94 L 93 L 92 L Oximetry Fraction of Inspired Oxygen (FIO2) 12/06/24 12/06/24 12/06/24 23:35 23:40 23:50 Temperature Pulse Rate 103 H 93 Pulse Rate [ 98 102 H Technical Support Consultant ] Respiratory 26 H 16 24 Rate Blood Pressure 55/33 85/59 Blood Pressure 65/44 85/59 [Right Arm] O2 Sat by Pulse 94 L 94 L Oximetry Fraction of Inspired Oxygen (FIO2) 12/06/24 12/07/24 12/07/24 23:54 00:00 00:04 Temperature Pulse Rate 96 Pulse Rate [ 98 88 Technical Support Consultant ] Respiratory 24 24 24 Rate Blood Pressure 87/59 Blood Pressure 91/62 88/55 [Right Arm] O2 Sat by Pulse 93 L 91 L 93 L Oximetry Fraction of Inspired Oxygen (FIO2) 12/07/24 12/07/24 12/07/24 00:05 00:07 00:10 Temperature Pulse Rate 100 92 Pulse Rate [ Technical Support Consultant ] Respiratory 24 Rate Blood Pressure 86/65 Blood Pressure [Right Arm] O2 Sat by Pulse 91 L Oximetry Fraction of 100 Inspired Oxygen (FIO2) 12/07/24 12/07/24 12/07/24 00:15 00:20 00:27 Temperature 97.9 F Pulse Rate 90 98 Pulse Rate [ 99 Technical Support Consultant ] Respiratory 24 24 24 Rate Blood Pressure 85/59 86/62 Blood Pressure 85/59 [Right Arm] O2 Sat by Pulse 93 L 93 L 94 L Oximetry Fraction of Inspired Oxygen (FIO2) 12/07/24 00:30 Temperature 98.2 F Pulse Rate 84 Pulse Rate [ Technical Support Consultant ] Respiratory 24 Rate Blood Pressure 86/62 Blood Pressure [Right Arm] O2 Sat by Pulse 94 L Oximetry Fraction of Inspired Oxygen (FIO2) Medical Decision Making - Medical Decision Making Was pt. sent in by a medical professional or institution (, PA, COPY HOLDER, urgent care, hospital, or long-term...) When possible be specific @ -Patient sent in from [facility] Did you speak to anyone other than the patient for history (EMS, parent, family, police, friend...)? What history was obtained from this source @ -I spoke with EMS for history Did you review nursing and triage notes (agree or disagree)? Why? @ -I reviewed and agree with nursing and triage notes Were old charts reviewed (outside hosp., previous admission, EMS record, old EKG, old radiological studies, urgent care reports/EKG's, long-term records)? Report findings @ -I reviewed the patient's discharge summary from 2 days ago Differential Diagnosis (chest pain, altered mental status, abdominal pain women, abdominal pain men, vaginal bleeding, weakness, fever, dyspnea, syncope, headache, dizziness, GI bleed, back pain, seizure, CVA, palpatations, mental health, musculoskeletal)? @ -Differential Dyspnea: Coronary syndrome, arrhythmia, tamponade, asthma, COPD, pulmonary embolism, pneumonia, pneumothorax, pulmonary effusion, anaphylaxis, diabetic ketoacidosis, flailed chest, pulmonary contusion, diaphragmatic rupture, anemia, neuromuscular, this is not meant to be an all-inclusive list. EKG interpreted by me (3pts min.). @ -Yes and demonstrates A-fib with a rate of 107. QRS 132. QTc of 410. No acute ST segment elevations or depressions X-rays interpreted by me (1pt min.). @ -Yes which demonstrates no change CT interpreted by me (1pt min.). @ -None done U/S interpreted by me (1pt. min.). @ -None done What testing was considered but not performed or refused? (CT, X-rays, U/S, labs)? Why? @ -None What meds were considered but not given or refused? Why? @ -None Did you discuss the management of the patient with other professionals (professionals i.e. , PA, COPY HOLDER, lab, RT, psych nurse, licensed clinical social worker, exercise specialist, teacher, co founder and chief strategy officer, leather case finisher)? Give summary @ -Spoke with Dr. Zimmerman for admission Was smoking cessation discussed for >3mins.? @ -No Was critical care preformed (if so, how long)? @ -Yes, 35 minutes for BiPAP respiratory failure Were there social determinants of health that impacted care today? How? (Homelessness, low income, unemployed, alcoholism, drug addiction, transportation, low edu. Level, literacy, decrease access to med. care, care home, rehab)? @ -Patient is currently in rehab Was there de-escalation of care discussed even if they declined (Discuss DNR or withdrawal of care, Hospice)? DNR status @ -No What co-morbidities impacted this encounter? (DM, HTN, Smoking, COPD, CAD, Cancer, CVA, ARF, Chemo, Hep., AIDS, mental health diagnosis, sleep apnea, morbid obesity)? @ -COPD, CHF Was patient admitted / discharged? Hospital course, mention meds given and route, prescriptions, significant lab abnormalities, going to OR and other pertinent info. @ -Upon arrival patient is seen and evaluated in room 3. Thorough history and physical exam was performed. Patient does arrive on a CPAP. He is transition to a BiPAP. He is placed on continuous pulse ox and cardiac monitoring. Twelve-lead EKG is obtained. Laboratory studies are conducted. Chest x-ray was performed. Viral swab demonstrates that the patient is positive for influenza A. Due to his hypoxia and need for BiPAP I did recommend admission for which the patient was agreeable. Spoke with Dr. zimmerman who is excepted the admission and presents to the emergency department to evaluate the patient Undiagnosed new problem with uncertain prognosis? @ -No Drug Therapy requiring intensive monitoring for toxicity (Heparin, Nitro, Insulin, Cardizem)? @ -No Were any procedures done? @ -No Diagnosis/symptom? @ -Acute BiPAP dependent respiratory failure, influenza A positive, COPD, recent pneumonia Acute, or Chronic, or Acute on Chronic? @ -Acute Uncomplicated (without systemic symptoms) or Complicated (systemic symptoms)? @ -Complicated Side effects of treatment? @ -No Exacerbation, Progression, or Severe Exacerbation? @ -No Poses a threat to life or bodily function? How? (Chest pain, [place], [place], pneumonia, PE, COPD, DKA, ARF, appy, cholecystitis, CVA, Diverticulitis, Homicidal, Suicidal, threat to staff... and all critical care pts) @ -Yes as patient is requiring BiPAP to maintain oxygen saturations greater than 90% - Lab Data Result diagrams: 12/17/24 05:00 12/17/24 05:00 Lab Results 12/06/24 12/06/24 12/06/24 Range/Units 13:32 13:32 13:32 WBC 34.1 H (3.8-10.6) k/uL RBC 4.83 (4.30-5.90) m/uL Hgb 13.5 (13.0-17.5) gm/dL Hct 42.3 (39.0-53.0) % MCV 87.6 (80.0-100.0) fL MCH 27.9 (25.0-35.0) pg MCHC 31.8 (31.0-37.0) g/dL RDW 15.4 (11.5-15.5) % Plt Count 206 (150-450) k/uL MPV 7.9 Neutrophils % 96 % Lymphocytes % 1 % Monocytes % 2 % Eosinophils % 0 % Basophils % 0 % Neutrophils # 32.7 H (1.3-7.7) k/uL Lymphocytes # 0.3 L (1.0-4.8) k/uL Monocytes # 0.8 (0-1.0) k/uL Eosinophils # 0.1 (0-0.7) k/uL Basophils # 0.0 (0-0.2) k/uL Manual Slide Review Performed Hypochromasia Slight PT 15.5 H (10.0-12.5) sec INR 1.5 H (<1.2) APTT 26.1 (22.0-30.0) sec Sodium 135 L (137-145) mmol/L Potassium 4.7 (3.5-5.1) mmol/L Chloride 102 (98-107) mmol/L Carbon Dioxide 23 (22-30) mmol/L Anion Gap 10 mmol/L BUN 33 H (9-20) mg/dL Creatinine 1.06 (0.66-1.25) mg/dL Est GFR (CKD-EPI)AfAm 76 (>60 ml/min/1.73 sqM) Est GFR (CKD-EPI)NonAf 66 (>60 ml/min/1.73 sqM) Glucose 129 H (74-99) mg/dL Plasma Lactic Acid Efren (0.7-2.0) mmol/L Calcium 8.8 (8.4-10.2) mg/dL Total Bilirubin 0.7 (0.2-1.3) mg/dL AST 32 (17-59) U/L ALT 37 (4-49) U/L Alkaline Phosphatase 113 (38-126) U/L Troponin I (0.000-0.034) ng/mL NT-Pro-B Natriuret Pep 2080 pg/mL Total Protein 5.7 L (6.3-8.2) g/dL Albumin 3.2 L (3.5-5.0) g/dL Influenza Type A (PCR) (Not Detectd) Influenza Type B (PCR) (Not Detectd) RSV (PCR) (Not Detectd) SARS-CoV-2 (PCR) (Not Detectd) 12/06/24 12/06/24 12/06/24 Range/Units 13:32 13:32 13:34 WBC (3.8-10.6) k/uL RBC (4.30-5.90) m/uL Hgb (13.0-17.5) gm/dL Hct (39.0-53.0) % MCV (80.0-100.0) fL MCH (25.0-35.0) pg MCHC (31.0-37.0) g/dL RDW (11.5-15.5) % Plt Count (150-450) k/uL MPV Neutrophils % % Lymphocytes % % Monocytes % % Eosinophils % % Basophils % % Neutrophils # (1.3-7.7) k/uL Lymphocytes # (1.0-4.8) k/uL Monocytes # (0-1.0) k/uL Eosinophils # (0-0.7) k/uL Basophils # (0-0.2) k/uL Manual Slide Review Hypochromasia PT (10.0-12.5) sec INR (<1.2) APTT (22.0-30.0) sec Sodium (137-145) mmol/L Potassium (3.5-5.1) mmol/L Chloride (98-107) mmol/L Carbon Dioxide (22-30) mmol/L Anion Gap mmol/L BUN (9-20) mg/dL Creatinine (0.66-1.25) mg/dL Est GFR (CKD-EPI)AfAm (>60 ml/min/1.73 sqM) Est GFR (CKD-EPI)NonAf (>60 ml/min/1.73 sqM) Glucose (74-99) mg/dL Plasma Lactic Acid Efren 2.0 (0.7-2.0) mmol/L Calcium (8.4-10.2) mg/dL Total Bilirubin (0.2-1.3) mg/dL AST (17-59) U/L ALT (4-49) U/L Alkaline Phosphatase (38-126) U/L Troponin I 0.027 (0.000-0.034) ng/mL NT-Pro-B Natriuret Pep pg/mL Total Protein (6.3-8.2) g/dL Albumin (3.5-5.0) g/dL Influenza Type A (PCR) Detected A (Not Detectd) Influenza Type B (PCR) Not Detected (Not Detectd) RSV (PCR) Not Detected (Not Detectd) SARS-CoV-2 (PCR) Not Detected (Not Detectd) Disposition Clinical Impression: Atrial fibrillation with RVR, Hypoxia, Respiratory failure, BiPAP (biphasic positive airway pressure) dependence, Leukocytosis, Influenza A Disposition: ADMITTED IP TO THIS HOSP Condition: Stable Is patient prescribed a controlled substance at d/c from ED?: No Time of Disposition: 15:21 Decision to Admit Reason: Admit from EC Decision Date: 12/06/24 Decision Time: 15:21
[2024-12-06] MEDS: IPRATROPIUM-ALBUTEROL 3 ML NEB INHALATION SCH (15:42)
[2024-12-06] MEDS ORDERED: NALOXONE 0.4 MG/ML 1 ML VIAL IV PRN (15:45)
[2024-12-06] MEDS ORDERED: ACETAMINOPHEN TAB 325 MG TAB PO PRN (15:45)
[2024-12-06] MEDS ORDERED: guaiFENesin SYRUP 100MG/5ML 200 MG/10 ML CUP PO PRN (15:49)
[2024-12-06] MEDS ORDERED: FLUTICASONE NASAL 50MCG/SPRAY 16GM BTL EA NOSTRIL PRN (15:49)
[2024-12-06] MEDS ORDERED: ONDANSETRON 4 MG TAB PO PRN (15:49)
[2024-12-06] MEDS ORDERED: CEFEPIME 2 GM in SODIUM CHLORIDE 0.9% 100 ML IVPB SCH (16:00)
[2024-12-06] MEDS: BENZONATATE 100 MG CAP PO SCH (16:01)
[2024-12-06] MEDS: methylPREDNISolone SOD SUCCI 40 MG/ML 1 ML VIAL IV SCH (16:01)
[2024-12-06] MEDS: CEFEPIME 2 GM in SODIUM CHLORIDE 0.9% 100 ML IVPB SCH (16:05)
[2024-12-06] MEDS: FUROSEMIDE 40 MG TAB PO SCH (16:06)
[2024-12-06] MEDS: DOCUSATE 100 MG CAP PO SCH (16:13)
[2024-12-06] MEDS: OSELTAMIVIR 30 MG CAP PO SCH (17:24)
[2024-12-06] MEDS ORDERED: VANCOMYCIN IV PER PHARMACY 1 EACH MISC MISCELLANE PRN (17:41)
[2024-12-06] MEDS: VANCOMYCIN 1000 MG IV SCH (18:03)
--- NOTE | 2024-12-06 18:27 | XR ---
EXAMINATION TYPE: XR chest 1V portable DATE OF EXAM: 12/06/2024 6:16 PM COMPARISON: Chest radiographs from 12/06/2024 CLINICAL INDICATION: Male, 84 years old with history of lung sound change, increased labor of breathi ng; [facility] TECHNIQUE: XR chest 1V portable Frontal view of the chest. FINDINGS: Limited rotated exam. Lungs/Pleura: There may be increased basilar masses on the left. There is no evidence of pleural effu merrick, focal consolidation, or pneumothorax. Pulmonary vascularity: Unremarkable. Heart/mediastinum: Cardiomediastinal silhouette is unremarkable. Musculoskeletal: No acute osseous pathology. Other findings: None IMPRESSION: Rotated exam no significant change from earlier today correlate for left basilar developing pneumonia . [facility], , 12/06/2024 6:24 PM
[2024-12-06] MEDS: FUROSEMIDE 10 MG/ML 10 ML VIAL IV SCH (18:33)
[2024-12-06 19:25] LABS: ABG Base Excess -0.1 mmol/L; ABG HCO3 27 mmol/L (21-25); ABG Oxygen Saturation 97.9 % (94-97); ABG PCO2 52 mmHg (35-45); ABG PH 7.32 (7.35-7.45); ABG PO2 113 mmHg (83-108); ABG TCO2 28 mmol/L (19-24); Allen Test Performed? Yes
[2024-12-06] MEDS: SUCCINYLCHOLINE CHLORIDE 200 MG/10 ML VIAL IV STA (19:45)
[2024-12-06] MEDS: DEXTROSE 5% IN WATER 100 ML with AMIODARONE 150 MG IV ONE (19:51)
[2024-12-06] MEDS ORDERED: SYMBICORT 160-4.5 MCG INHALER INHALATION SCH (20:00)
[2024-12-06] MEDS: AMIODARONE 360 MG in DEXTROSE 5% IN WATER 200 ML IV ONE (20:23)
[2024-12-06] MEDS: SODIUM CHLORIDE 0.9% 1,000 ML IV ONE ×2 (20:26→23:35)
--- NOTE | 2024-12-06 20:31 | XR ---
EXAMINATION TYPE: XR chest 1V portable DATE OF EXAM: 12/06/2024 8:14 PM COMPARISON: Chest radiographs from. Same day. CLINICAL INDICATION: Male, 84 years old with history of Tube placement; TECHNIQUE: XR chest 1V portable Frontal view of the chest. FINDINGS: Lungs/Pleura: Left-sided airspace opacities remain No evidence of pneumothorax or pleural effusion. Pulmonary vascularity: Unremarkable. Heart/mediastinum: Cardiomediastinal silhouette is unremarkable. Musculoskeletal: No acute osseous pathology. Other findings: None Lines/Tubes: Endotracheal tube with distal tip 4.1 cm above the landen. Nasogastric tube with side-port projecting over the distal esophagus. IMPRESSION: Endotracheal tube is above the landen. Nasogastric tube terminates at the heart in the mid esophagus. Advancement of at least 16 cm recommen ded for optimal placement. [facility], , 12/06/2024 8:29 PM
[2024-12-06 21:37] LABS: ABG Base Excess -2.7 mmol/L; ABG HCO3 26 mmol/L (21-25); ABG Oxygen Saturation 96.4 % (94-97); ABG PCO2 59 mmHg (35-45); ABG PH 7.24 (7.35-7.45); ABG PO2 100 mmHg (83-108); ABG TCO2 27 mmol/L (19-24); Allen Test Performed? Yes
[2024-12-06] MEDS: BUDESONIDE 1 MG/2 ML NEBU INHALATION SCH (21:46)
[2024-12-06] MEDS: ATORVASTATIN 40 MG TAB PO SCH (22:47)
[2024-12-06] MEDS: METOPROLOL TARTRATE 50 MG TAB PO SCH (22:48)
[2024-12-06] MEDS: EZETIMIBE 10 MG TAB PO SCH (22:48)
[2024-12-06] MEDS: LORATADINE 10 MG TAB PO SCH (22:48)
[2024-12-06] MEDS: TAMSULOSIN 0.4 MG CAP.ER.24H PO SCH (22:48)
[2024-12-06] MEDS: PANTOPRAZOLE 40 MG TABLET PO SCH (22:48)
[2024-12-06] MEDS: VENLAFAXINE HCL ER 37.5 MG CAP PO SCH (22:48)
[2024-12-06] MEDS: VANCOMYCIN 1,750 MG in SODIUM CHLORIDE 0.9% 500 ML 500 ML IVPB SCH (22:57)
[2024-12-06] MEDS: NOREPINEPHRINE 4 MG in SODIUM CHLORIDE 0.9% 250 ML IV SCH (23:34)
[2024-12-06] MEDS: CHLORHEXIDINE GLUCONATE 15 ML CUP MUCOUS MEM SCH (23:36)
[2024-12-07 00:58] LABS: Glucose,Whole Blood 166 mg/dL (70-110)
[2024-12-07] MEDS: methylPREDNISolone SOD SUCCI 125 MG/2 ML VIAL IV SCH (01:41)
[2024-12-07] MEDS: SODIUM CHLORIDE 0.9% 1,000 ML IV SCH (02:04)
--- NOTE | 2024-12-07 02:40 | XR ---
EXAM: XR Chest, 1 View CLINICAL HISTORY: ITS.REASON XR Reason: NG tube placement TECHNIQUE: Frontal view of the chest. COMPARISON: 12/06/24 at 1958 hrs. FINDINGS: Lungs: Similar bilateral lower lung zone opacities. Pleural space: Small pleural effusions, left greater than right. No pneumothorax. Heart: Stable heart size. Bones/joints: Thoracic spondylosis. Tubes, lines and devices: Nasogastric tube placed with tip at the stomach and side port near the GE junction. Endotracheal tube 4.5 cm from the landen. IMPRESSION: 1. Similar bilateral lower lung zone opacities. 2. Nasogastric tube placed with tip at the stomach and side port near the GE junction. 3. Small pleural effusions, left greater than right.
[2024-12-07 04:09] LABS: Basophils # (A) 0.1 k/uL (0-0.2); Basophils % (A) 0 %; Eosinophils # (A) 0.1 k/uL (0-0.7); Eosinophils % (A) 0 %; HCT 38.6 % (39.0-53.0); HGB 12.2 gm/dL (13.0-17.5); Hypochromasia Marked; Lymphocytes # (A) 0.4 k/uL (1.0-4.8); Lymphocytes % (A) 1 %; MCH 28.6 pg (25.0-35.0); MCHC 31.6 g/dL (31.0-37.0); MCV 90.4 fL (80.0-100.0); Mean Platelet Volume 7.7; Monocytes # (A) 0.9 k/uL (0-1.0); Monocytes % (A) 2 %; Neutrophils # (A) 42.1 k/uL (1.3-7.7); Neutrophils % (A) 97 %; Platelet Count 185 k/uL (150-450); RBC 4.27 m/uL (4.30-5.90); RDW 15.3 % (11.5-15.5); WBC 43.6 k/uL (3.8-10.6)
[2024-12-07] MEDS ORDERED: DEXTROSE 5% IN WATER 250 ML with AMIODARONE 300 MG IV ONE (04:25)
[2024-12-07 04:34] LABS: African American GFR (CKD) 60 (>60 ml/min/1.73 sqM); Anion Gap 11 mmol/L; Blood Urea Nitrogen 35 mg/dL (9-20); Calcium 7.4 mg/dL (8.4-10.2); Carbon Dioxide 18 mmol/L (22-30); Chloride 104 mmol/L (98-107); Glucose 167 mg/dL (74-99); Magnesium 1.8 mg/dL (1.6-2.3); Non-African American GFR(CKD) 52 (>60 ml/min/1.73 sqM); Potassium 4.6 mmol/L (3.5-5.1); Sodium 133 mmol/L (137-145)
[2024-12-07] MEDS: AMIODARONE 450 MG in DEXTROSE 5% IN WATER 250 ML IV SCH (04:56)
[2024-12-07 05:34] LABS: ABG Base Excess -4.1 mmol/L; ABG HCO3 22 mmol/L (21-25); ABG Oxygen Saturation 95.8 % (94-97); ABG PCO2 44 mmHg (35-45); ABG PH 7.31 (7.35-7.45); ABG PO2 85 mmHg (83-108); ABG TCO2 23 mmol/L (19-24); Allen Test Performed? Yes
--- NOTE | 2024-12-07 07:11 | XR ---
EXAMINATION TYPE: XR chest 1V portable DATE OF EXAM: 12/07/2024 6:01 AM COMPARISON: Chest radiograph from one day prior. CLINICAL INDICATION: Male, 84 years old with history of Tube placement; [facility] TECHNIQUE: XR chest 1V portable Frontal view of the chest. FINDINGS: Lungs/Pleura: Left-sided airspace opacities not well appreciated. No evidence of pneumothorax or pleu ral effusion. Pulmonary vascularity: Unremarkable. Heart/mediastinum: Cardiomediastinal silhouette is unremarkable. Musculoskeletal: No acute osseous pathology. Other findings: None Lines/Tubes: Endotracheal tube with distal tip 5.3 cm above the landen. Nasogastric tube with its distal tip and side-port projecting under the diaphragm and projecting over the gastric lumen. IMPRESSION: 1. Endotracheal tube is above the landen. 2. Nasogastric tube in appropriate position. [facility], , 12/07/2024 7:08 AM
[2024-12-07] MEDS ORDERED: TIOTROPIUM 2.5 MCG INHALER INHALATION SCH (08:00)
--- NOTE | 2024-12-07 08:17 | P.HPIM ---
History of Present Illness H&P Date: 12/06/24 Chief Complaint: Acute hypoxemic respiratory failure HISTORY OF PRESENT ILLNESS This is a 84-year-old male with past medical history of hypertension, paroxysmal atrial fibrillation on Xarelto, benign prostatic hypertrophy, hiatal hernia, hereditary factor VIII deficiency, hyperlipidemia, mild intermittent asthma, mild COPD, patient was recently admitted to [facility] after he underwent right total hip arthroplasty that was done by Dr. Thakkar and he has been at [facility] for physical therapy rehabilitation, patient was recently hospitalized at [facility] from November 25 of December 04 after he was admitted for what appears to be right lower lobe pneumonia appears to be MRSA pneumonia, initially was started on vancomycin as well as cefepime was seen in consultation by pulm medicine as well as cardiology, he had a significant MRSA bacteremia, that responded very well to vancomycin, patient ended up going for transesophageal echocardiogram that did not show evidence of any vegetation, it did show evidence of 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%, patient was sent to [facility] December 04, 2024 while he was there he was requiring about 5 L nasal cannula of oxygen, I received a phone call from the nursing staff stating that the patient is in acute respiratory distress today, he was given 60 mg IM of Lasix as well as 80 mg IM of Solu-Medrol with nebulizer treatment along with Pulmicort and DuoNeb, without any relief, he was placed on nonrebreather, and patient was sent to the ER for evaluation, he was found to have a significant leukocytosis with a white count of 36,000, his swab came back positive for influenza A, and chest x-ray showed evidence of cardiomegaly as well as basilar pneumonia patient was started back on his vancomycin as well as cefepime he was started on Tamiflu, he was started on Lasix 80 mg IV push every 12 hours, along with Solu-Medrol 60 mg IV push every 6 hours, DuoNeb nebulization 4 times every day Pulmicort 1 mg nebulization twice every day he is currently on BiPAP, pulmonary consultation as well as cardiology consultation. Sputum culture will be obtained as well as blood cultures. REVIEW OF SYSTEMS Constitutional: positive for fever, no chills, no night sweats. No weight change. no weakness, no fatigue or lethargy. EENT: No headache. No blurred vision or double vision, no loss of vision. very hard of Hearing, no ringing in the ears, no dizziness. No nasal drainage or congestion. No epistaxis. No sore throat. Lungs: positive for shortness of breath, positive for cough, positive for phlegm production dyspnea on exertion, no pleurisy no hemoptysis. Cardiovascular: No chest pain, mild lower extremity edema. positive for palpitations. No paroxysmal nocturnal dyspnea. No orthopnea. No lightheadedness or dizziness. No syncopal episodes. Abdominal: no abdominal pain. no nausea, vomiting. No diarrhea. positive for constipation. No bloody or tarry stools. No loss of appetite. Genitourinary: No dysuria, increased frequency, urgency. No urinary retention. Musculoskeletal: No myalgias. Reports muscle weakness, positive for gait dysfunction, positive for frequent falls. No back pain. No neck pain. Integumentary: right hip incision is healed , no lesions. No rash or pruritus. No unusual bruising. No change in hair or nails. Neurologic: No aphasia. No facial droop. No change in mentation. No head injury. No headache. No paralysis. No paresthesia. Psychiatric: mild depression. Positive for anxiety. No mood swings. Endocrine: No abnormal blood sugars. No weight change. No excessive sweating or thirst. No cold intolerance. MEDICAL HISTORY Hypertension Paroxysmal atrial fibrillation Benign prostatic hypertrophy Hiatal hernia Hereditary factor VIII deficiency Hyperlipidemia Mild intermittent asthma COPD SURGICAL HISTORY Hernia repair Bilateral knee replacement Right total hip arthroplasty via anterior approach SOCIAL HISTORY Patient is a lifelong nonsmoker, no alcohol use or abuse, no marijuana or illicit drug use. Patient lives at home with his . FAMILY HISTORY Father at age 88 from CVA and had CABG 25 years earlier. Mother at age 88 at [facility] with history of hyperlipidemia. Patient has 2 brothers and one at age 21 in airplane crash and the other one has had multiple surgeries. Patient has one son with no major medical problems and one daughter with no major medical problem. PHYSICAL EXAMINATION Gen: This is an obese 84-year-old male laying down in bed in moderate respiratory distress HEENT: Head is atraumatic, normocephalic. Pupils equal, round. Sclerae is anicteric. NECK: Supple. No JVD. No lymphadenopathy. No thyromegaly. LUNGS: decreased breath sound at bases, few rhonchi minimal expiratory wheezes no chest wall tenderness mild intercostal retractions HEART: First heart sound is depressed, second heart sound is normal, 2/6 systolic ejection murmur at the left sternal border, irregular irregular due to atrial fibrillation. ABDOMEN: Soft. Bowel sounds are present. No masses. No tenderness. EXTREMITIES: +1 pedal edema. No calf tenderness. Pain in the left hip. Dorsalis pedis palpable bilaterally. NEUROLOGICAL: Patient is awake, alert and oriented x3. Cranial nerves 2 through 12 are grossly intact, muscle power 4/5 upper and lower extremities bilaterally ASSESSMENT AND PLAN: 1. Acute hypoxemic respiratory failure due to acute systolic heart failure as well as acute left lower lobe gram-negative pneumonia and influenza A. Patient will be maintained on BiPAP for now, start the patient on Solu-Medrol 60 mg IV push every 6 hours, Lasix 80 mg IV push every 12 hours, continue vancomycin add cefepime 2 g piggyback every 8 hours, pulmonary consultation, cardiology consultation, input and output and daily weight, try to titrate his oxygen to keep saturation greater than or equal to 94% and all the time, patient will be admitted to a telemetry unit, we will monitor the patient very closely, patient is being evaluated for possible intubation. 2. Atrial fibrillation with rapid ventricular response. Cardiology contacted, patient was started on amiodarone drip, patient was taken off his metoprolol due to hypotension, as well as Xarelto. 3. Acute on chronic systolic heart failure with reduced ejection fraction, monitor the patient's symptoms very closely, continue patient on Lasix 80 mg IV push every 12 hours. 4. COPD exacerbation. Continue Solu-Medrol 60 mg IV push every 6 hours, continue Pulmicort 1 mg nebulization twice every day, DuoNeb 3 manipulation 4 times every day, oxygen support, currently on BiPAP well patient is being evaluated for possible intubation. 5. Mild intermittent asthma. Continue Singulair 10 mg at bedtime, loratadine 10 mg once daily, albuterol nebulizer treatments every 4 hours as neede 6. Benign prostatic hypertrophy. Continue Flomax 0.4 mg at bedtime, monitor for urinary retention, plan for Henry catheter. To measure input and output . 7. Hereditary factor VIII deficiency. continue Xarelto for now may transition to heparin drip after intubation 8. Hyperlipidemia. Continue Zetia 10 mg daily and Atorvastatin 40 mg once a day. Monitor the patient lipid panel, keep LDL 55-70 9. Hypertension and hypertensive cardiovascular disease. Slightly hypotensive hold metoprolol for now. 10. GI prophylaxis. Protonix 40 mg IV push daily. 11. DVT prophylaxis. Continue Xarelto 20 mg once every day and transition to heparin drip after intubation 12. Major depressive disorder. Continue patient on Effexor XR 37.5 mg orally once every day. 13. Admit to inpatient. Estimated length of stay 2 nights 14. Patient is full code. Past Medical History Past Medical History: Atrial Fibrillation, Asthma, Cancer, Diabetes Mellitus, Deep Vein Thrombosis (DVT), GERD/Reflux, Hearing Disorder / Deafness, Hyperlipidemia, Hypertension, Osteoarthritis (OA), Pneumonia, Prostate Disorder Additional Past Medical History / Comment(s): Hx pneumonia yrs ago, RSV/ hospitalized x 2 weeks in ICU, dvt R calf, hiatal hernia, hx kidney stones, KNIK use of bilateral hearing aids. skin ca; "pre diabetic". History of Any Multi-Drug Resistant Organisms: MRSA Date of last positivie culture/infection: 11/25/24 MDRO Source:: blood Past Surgical History: Joint Replacement, Orthopedic Surgery Additional Past Surgical History / Comment(s): Bilateral knee replacements., total L hip arthroplasty, LIS and cardioversions, elbow surg, cystoscopy & right ureter stent Aug 2024, stent removed Sep 2024. Right TAD. Past Anesthesia/Blood Transfusion Reactions: No Reported Reaction Past Psychological History: Depression Smoking Status: Never smoker Past Alcohol Use History: Rare Past Drug Use History: None Reported - Past Family History Mother Family Medical History: No Reported History Father Additional Family Medical History / Comment(s): open heart Medications and Allergies Home Medications Medication Instructions Recorded Confirmed Type Tamsulosin HCl [Flomax] 0.4 mg PO HS 05/29/18 12/06/24 History Albuterol Sulfate [Albuterol 1 puff INHALATION RT-Q4H PRN 10/07/21 12/06/24 History Sulfate Hfa] Fluticasone Nasal [place] [Flonase 1 spr EA NOSTRIL Q12H PRN 06/02/22 12/06/24 History Nasal [place]] Fluticasone/Umeclidin/Vilanter 1 puff INHALATION RT-DAILY 09/07/23 12/06/24 History [Trelegy Ellipta 200-62.5-25] Atorvastatin [Lipitor] 40 mg PO HS 10/16/23 12/06/24 History Ezetimibe [Zetia] 10 mg PO HS 10/16/23 12/06/24 History Levocetirizine Dihydrochloride 5 mg PO HS 10/16/23 12/06/24 History [Xyzal] Dapagliflozin Propanediol [Farxiga] 10 mg PO DAILY #30 tab 03/27/24 12/06/24 Rx Budesonide/Formoterol Fumarate 1 puff INHALATION RT-BID@0800,1600 09/13/24 12/06/24 History [Breyna 160-4.5 Mcg Inhaler] Cholecalciferol (Vitamin D3) 50 mcg PO DAILY 10/21/24 12/06/24 History [Vitamin D3 (50 Mcg = 2000 Iu)] Ondansetron [Zofran] 4 mg PO Q6HR PRN #30 tab 10/25/24 12/06/24 Rx guaiFENesin SYRUP 100MG/5ML 200 mg PO Q6HR PRN ml 10/30/24 12/06/24 Rx [Robitussin] Acetaminophen [Tylenol 8 Hour] 650 mg PO Q6H PRN 11/25/24 12/06/24 History Benzonatate [Tessalon Perles] 100 mg PO TID 11/25/24 12/06/24 History Docusate [Colace] 100 mg PO BID@0800,1600 11/25/24 12/06/24 History Furosemide [Lasix] 40 mg PO BID 11/25/24 12/06/24 History Ipratropium-Albuterol Nebulize 3 ml INHALATION RT-Q6H 11/25/24 12/06/24 History [Duoneb 0.5 mg-3 mg/3 ml Soln] Naloxone HCl [Narcan] 4 mg NASAL ONCE PRN 11/25/24 12/06/24 History Potassium Chloride [Klor-Con M20] 20 meq PO DAILY 11/25/24 12/06/24 History Rivaroxaban [Xarelto] 20 mg PO DAILY 11/25/24 12/06/24 History Sennosides [Senokot] 17.2 mg PO DAILY PRN 11/25/24 12/06/24 History polyethylene glycoL 3350 [Miralax] 17 gm PO Q24H PRN 11/25/24 12/06/24 History HYDROcodone/APAP 5-325MG [Varna 1 tab PO Q6HR PRN #12 tab 12/04/24 12/06/24 Rx 5-325] Losartan [Cozaar] 25 mg PO DAILY tab 12/04/24 12/06/24 Rx Metoprolol Tartrate [Lopressor] 150 mg PO BID tab 12/04/24 12/06/24 Rx Spironolactone [Aldactone] 25 mg PO DAILY tab 12/04/24 12/06/24 Rx Vancomycin 1,750 mg IVPB Q16H 10 Days each 12/04/24 12/06/24 Rx Ammonium Lactate Cream [Lac-Hydrin 1 applic TOPICAL Q12H PRN 12/06/24 12/06/24 History 12% Cream] Magnesium Hydroxide [Milk of 2,400 mg PO Q24H PRN 12/06/24 12/06/24 History Magnesia] Omeprazole 20 mg PO HS 12/06/24 12/06/24 History Venlafaxine HCl ER [Effexor Xr] 37.5 mg PO HS 12/06/24 12/06/24 History predniSONE See Taper PO DAILY 12/06/24 12/06/24 History Allergies Allergy/AdvReac Type Severity Reaction Status Date / Time rosuvastatin [From Crestor] AdvReac muscle Verified 12/06/24 14:08 soreness/cramps Physical Exam Vitals: Vital Signs Pulse Resp BP Pulse Ox FiO2 12/06/24 18:08 100 12/06/24 15:52 110 H 12/06/24 15:44 111 H 12/06/24 15:34 80 12/06/24 15:25 26 H 12/06/24 13:37 108 H 20 108/48 94 L 12/06/24 13:20 80 12/06/24 13:13 110 H 32 H 93/77 91 L Intake and Output 12/06/24 12/06/24 12/06/24 06:59 14:59 22:59 Other: Weight 108.862 kg Results CBC & Chem 7: 12/08/24 04:30 12/08/24 04:30 Labs: Abnormal Lab Results - Last 24 Hours (Table) 12/06/24 12/06/24 12/06/24 Range/Units 13:32 13:32 13:32 WBC 34.1 H (3.8-10.6) k/uL Neutrophils # 32.7 H (1.3-7.7) k/uL Lymphocytes # 0.3 L (1.0-4.8) k/uL PT 15.5 H (10.0-12.5) sec INR 1.5 H (<1.2) Sodium 135 L (137-145) mmol/L BUN 33 H (9-20) mg/dL Glucose 129 H (74-99) mg/dL Total Protein 5.7 L (6.3-8.2) g/dL Albumin 3.2 L (3.5-5.0) g/dL Influenza Type A (PCR) (Not Detectd) 12/06/24 Range/Units 13:34 WBC (3.8-10.6) k/uL Neutrophils # (1.3-7.7) k/uL Lymphocytes # (1.0-4.8) k/uL PT (10.0-12.5) sec INR (<1.2) Sodium (137-145) mmol/L BUN (9-20) mg/dL Glucose (74-99) mg/dL Total Protein (6.3-8.2) g/dL Albumin (3.5-5.0) g/dL Influenza Type A (PCR) Detected A (Not Detectd)
[2024-12-07] MEDS ORDERED: RIVAROXABAN 20 MG TAB PO SCH (09:00)
[2024-12-07] MEDS: CHOLECALCIFEROL 25 MCG (1000 IU) TABLET PO SCH (09:57)
[2024-12-07] MEDS: DAPAGLIFLOZIN PROPANEDIOL 10 MG TABLET PO SCH (09:58)
[2024-12-07] MEDS: LOSARTAN 25 MG TAB PO SCH (10:00)
[2024-12-07] MEDS: POTASSIUM CHLORIDE ER 20 MEQ TAB.ER PO SCH (10:00)
[2024-12-07] MEDS: SPIRONOLACTONE 25 MG TAB PO SCH (10:01)
--- NOTE | 2024-12-07 10:02 | US ---
EXAMINATION TYPE: US venous doppler duplex LE BI DATE OF EXAM: 12/07/2024 9:42 AM COMPARISON: Prev right leg CLINICAL INDICATION: , 84 years old with history of Hypoxemia; ICU pt intubated, Pain TECHNIQUE: The lower extremity deep venous system is examined utilizing real time linear array sonog reynaldo with graded compression, color doppler sonography, and spectral doppler. SIDE PERFORMED: Bilateral FINDINGS: VESSELS IMAGED: Common Femoral Vein Deep Femoral Vein Greater Saphenous Vein * Femoral Vein Popliteal Vein Small Saphenous Vein * Proximal Calf Veins (* superficial vessels) Right Leg: Appears negative for acute DVT, possible non-occluding chronic thrombus within popliteal vein as visualized on prior , Color Doppler imaging shows patency of the vessels. Spectral waveforms are within normal limits. Left Leg: Negative for DVT, Color Doppler imaging shows patency of the vessels. Spectral waveforms a re within normal limits. IMPRESSION: Chronic nonoccluding right lower extremity DVT. No evidence for occlusive acute right lower extremity deep vein thrombosis. [facility], , 12/07/2024 10:00 AM
[2024-12-07 10:06] LABS: Basophils % (A) 0 %; Eosinophils # (A) 0.1 k/uL (0-0.7); Eosinophils % (A) 0 %; HCT 40.1 % (39.0-53.0); HGB 12.9 gm/dL (13.0-17.5); Hypochromasia Moderate; Lymphocytes # (A) 0.4 k/uL (1.0-4.8); Lymphocytes % (A) 1 %; MCH 28.7 pg (25.0-35.0); MCHC 32.1 g/dL (31.0-37.0); MCV 89.3 fL (80.0-100.0); Mean Platelet Volume 7.6; Monocytes # (A) 0.9 k/uL (0-1.0); Monocytes % (A) 2 %; Neutrophils # (A) 36.8 k/uL (1.3-7.7); Neutrophils % (A) 96 %; Platelet Count 141 k/uL (150-450); RBC 4.49 m/uL (4.30-5.90); RDW 15.3 % (11.5-15.5); WBC 38.3 k/uL (3.8-10.6)
[2024-12-07 10:12] LABS: INR 1.3 (<1.2); Partial Thromboplastin Time 23.3 sec (22.0-30.0); Prothrombin Time 13.5 sec (10.0-12.5)
[2024-12-07] MEDS: HEPARIN SOD,PORK IN 0.45% NACL 25,000 UNIT in 0.45% NACL 1 250ML.BAG IV SCH (10:19)
[2024-12-07] MEDS: HEPARIN SODIUM 1,000 UN/ML (10ML VL) IV ONE (10:24)
[2024-12-07 10:49] LABS: Crenated RBC Present; Poikilocytosis (M) Present
--- NOTE | 2024-12-07 11:01 | P.CNPUL ---
History of Present Illness Consult date: 12/07/24 Requesting physician: Buzz Zimmerman Reason for consult: other (Acute hypoxic respiratory failure) Chief complaint: Shortness of breath History of present illness: This is an 84-year-old white male familiar to my service, patient was recently seen in the hospital for MRSA bacteremia, workup for endocarditis and transesophageal echocardiogram was unremarkable and there was no evidence of vegetations. Patient was discharged to care home on vancomycin and he had a PICC line in place. His transesophageal echo on his last admission showed ejection fraction of 45%, patient is also known to have history of paroxysmal atrial fibrillation as well as history of hereditary factor VIII deficiency. In addition to all of this the patient is known to have history of mild COPD, hiatal hernia, hypertension, and yesterday care home was concerned about the patient having episodes of shortness of breath. Patient received diuretics, received bronchodilators, this was done upon arrival to the ER, patient developed worsening atrial fibrillation with RVR. I was notified about this patient from the ER, initially recommended amiodarone and amiodarone drip because of his atrial fibrillation with RVR, cardiology was consulted, his oxygenation while in the ER was getting worse in spite of diuretics his chest x- ray did not show any evidence of significant pulmonary edema, patient was intubated shortly after upon my recommendation, and arrangements made for the patient to transfer to the ICU late at night. In the meantime patient was noted to have leukocytosis, WBC count as high as 43.6, hemoglobin was 12.2. Basic metabolic profile was normal except for slightly low bicarb of 18 BUN 35 cr eatinine 1.28. Chest x-ray this morning showed normal pulmonary vasculature there was no clear-cut evidence of pneumonia or any pleural effusion, no evidence of congestive heart failure, patient did receive multiple fluid boluses yesterday for low blood pressure after intubation. Today the patient is on assist-control rate of 24 tidal volume 500 FiO2 90% and PEEP of 8 which I increased to 10 ABG remains marginal with a pO2 of 85 pCO2 44 pH of 7.31 patient has been on Xarelto for history of chronic atrial fibrillation presently I would recommend that we place the patient on heparin, patient is still receiving amiodarone at 0.5 mg/min he is also on norepinephrine at 0.06 mcg/kg/min propofol at 50 mcg/kg/min IV fluid 100 cc/h 0.9 normal saline. Went ahead and establish a right radial arterial line, patient does have a PICC line in place hence no need to change PICC line unless the patient comes back with positive blood cultures. In the meantime we are recommending cefepime and vancomycin. 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 Knowing this, possibility of pulmonary embolism is likely and I am recommending that we heparinized the patient for now, once his renal functioning improved may consider sending him down for a CT angiogram of the chest. Review of Systems ROS unobtainable: due to endotracheal tube Past Medical History Past Medical History: Atrial Fibrillation, Asthma, Cancer, Diabetes Mellitus, Deep Vein Thrombosis (DVT), GERD/Reflux, Hearing Disorder / Deafness, Hyperlipidemia, Hypertension, Osteoarthritis (OA), Pneumonia, Prostate Disorder Additional Past Medical History / Comment(s): Hx pneumonia yrs ago, RSV/ hospitalized x 2 weeks in ICU, dvt R calf, hiatal hernia, hx kidney stones, [place] use of bilateral hearing aids. skin ca; "pre diabetic". History of Any Multi-Drug Resistant Organisms: MRSA Date of last positivie culture/infection: 11/25/24 MDRO Source:: blood Past Surgical History: Joint Replacement, Orthopedic Surgery Additional Past Surgical History / Comment(s): Bilateral knee replacements., total L hip arthroplasty, LIS and cardioversions, elbow surg, cystoscopy & right ureter stent Aug 2024, stent removed Sep 2024. Right TAD. Past Anesthesia/Blood Transfusion Reactions: No Reported Reaction Past Psychological History: Depression Smoking Status: Never smoker Past Alcohol Use History: Rare Past Drug Use History: None Reported - Past Family History Mother Family Medical History: No Reported History Father Additional Family Medical History / Comment(s): open heart Medications and Allergies Home Medications Medication Instructions Recorded Confirmed Type Tamsulosin HCl [Flomax] 0.4 mg PO HS 05/29/18 12/06/24 History Albuterol Sulfate [Albuterol 1 puff INHALATION RT-Q4H PRN 10/07/21 12/06/24 History Sulfate Hfa] Fluticasone Nasal [place] [Flonase 1 spr EA NOSTRIL Q12H PRN 06/02/22 12/06/24 History Nasal [place]] Fluticasone/Umeclidin/Vilanter 1 puff INHALATION RT-DAILY 09/07/23 12/06/24 History [Velasquez Ellipta 200-62.5-25] Atorvastatin [Lipitor] 40 mg PO HS 10/16/23 12/06/24 History Ezetimibe [Zetia] 10 mg PO HS 10/16/23 12/06/24 History Levocetirizine Dihydrochloride 5 mg PO HS 10/16/23 12/06/24 History [Xyzal] Dapagliflozin Propanediol [Farxiga] 10 mg PO DAILY #30 tab 03/27/24 12/06/24 Rx Budesonide/Formoterol Fumarate 1 puff INHALATION RT-BID@0800,1600 09/13/24 12/06/24 History [Breyna 160-4.5 Mcg Inhaler] Cholecalciferol (Vitamin D3) 50 mcg PO DAILY 10/21/24 12/06/24 History [Vitamin D3 (50 Mcg = 2000 Iu)] Ondansetron [Zofran] 4 mg PO Q6HR PRN #30 tab 10/25/24 12/06/24 Rx guaiFENesin SYRUP 100MG/5ML 200 mg PO Q6HR PRN ml 10/30/24 12/06/24 Rx [Robitussin] Acetaminophen [Tylenol 8 Hour] 650 mg PO Q6H PRN 11/25/24 12/06/24 History Benzonatate [Tessalon Perles] 100 mg PO TID 11/25/24 12/06/24 History Docusate [Colace] 100 mg PO BID@0800,1600 11/25/24 12/06/24 History Furosemide [Lasix] 40 mg PO BID 11/25/24 12/06/24 History Ipratropium-Albuterol Nebulize 3 ml INHALATION RT-Q6H 11/25/24 12/06/24 History [Duoneb 0.5 mg-3 mg/3 ml Soln] Naloxone HCl [Narcan] 4 mg NASAL ONCE PRN 11/25/24 12/06/24 History Potassium Chloride [Klor-Con M20] 20 meq PO DAILY 11/25/24 12/06/24 History Rivaroxaban [Xarelto] 20 mg PO DAILY 11/25/24 12/06/24 History Sennosides [Senokot] 17.2 mg PO DAILY PRN 11/25/24 12/06/24 History polyethylene glycoL 3350 [Miralax] 17 gm PO Q24H PRN 11/25/24 12/06/24 History HYDROcodone/APAP 5-325MG [[place] 1 tab PO Q6HR PRN #12 tab 12/04/24 12/06/24 Rx 5-325] Losartan [Cozaar] 25 mg PO DAILY tab 12/04/24 12/06/24 Rx Metoprolol Tartrate [Lopressor] 150 mg PO BID tab 12/04/24 12/06/24 Rx Spironolactone [Aldactone] 25 mg PO DAILY tab 12/04/24 12/06/24 Rx Vancomycin 1,750 mg IVPB Q16H 10 Days each 12/04/24 12/06/24 Rx Ammonium Lactate Cream [Lac-Hydrin 1 applic TOPICAL Q12H PRN 12/06/24 12/06/24 History 12% Cream] Magnesium Hydroxide [Milk of 2,400 mg PO Q24H PRN 12/06/24 12/06/24 History Magnesia] Omeprazole 20 mg PO HS 12/06/24 12/06/24 History Venlafaxine HCl ER [Effexor Xr] 37.5 mg PO HS 12/06/24 12/06/24 History predniSONE See Taper PO DAILY 12/06/24 12/06/24 History Allergies Allergy/AdvReac Type Severity Reaction Status Date / Time rosuvastatin [From Crestor] AdvReac muscle Verified 12/06/24 14:08 soreness/cramps Physical Exam Vitals: Vital Signs Temp Pulse Pulse Resp BP BP Pulse Ox 12/07/24 09:45 108 H 24 12/07/24 09:30 106 H 20 93 L 12/07/24 09:15 114 H 21 91 L 12/07/24 09:00 115 H 21 92 L 12/07/24 08:45 105 H 21 93 L 12/07/24 08:30 114 H 20 90/62 92 L 12/07/24 08:15 97 25 H 104/63 92 L 12/07/24 08:07 88 12/07/24 08:00 98.5 F 98 20 95/63 92 L 12/07/24 07:54 12/07/24 07:51 12/07/24 07:47 12/07/24 07:45 93 8 L 97/63 89 L 12/07/24 07:43 98 12/07/24 07:30 94 24 98/63 89 L 12/07/24 07:15 88 21 93/64 90 L 12/07/24 07:00 97 21 94/62 91 L 12/07/24 06:45 93 20 98/64 92 L 12/07/24 06:30 88 20 80/53 95 12/07/24 06:25 12/07/24 06:15 93 19 101/79 94 L 12/07/24 06:00 87 24 91/58 96 12/07/24 05:45 96 21 101/65 96 12/07/24 05:30 39 H 93/72 95 12/07/24 05:15 96 27 H 85/62 95 12/07/24 05:00 98.1 F 98 24 89/74 95 12/07/24 04:45 104 H 20 97/70 96 12/07/24 04:30 93 21 96/64 95 12/07/24 04:15 91 20 96/71 94 L 12/07/24 04:00 87 20 81/64 93 L 12/07/24 03:45 89 9 L 82/65 93 L 12/07/24 03:42 87 12/07/24 03:31 12/07/24 03:30 75 8 L 89/64 92 L 12/07/24 03:15 88 26 H 85/60 92 L 12/07/24 03:00 72 21 90/66 91 L 12/07/24 02:45 92 20 90/65 91 L 12/07/24 02:30 83 25 H 90/65 92 L 12/07/24 02:10 91 26 H 99/76 93 L 12/07/24 02:00 97 26 H 96/75 92 L 12/07/24 01:50 96 25 H 96/75 93 L 12/07/24 01:40 86 23 95/73 92 L 12/07/24 01:30 90 14 93/72 92 L 12/07/24 01:20 84 25 H 93/72 91 L 12/07/24 01:18 92 25 H 93/72 91 L 12/07/24 00:40 95/67 12/07/24 00:30 98.2 F 84 24 86/62 94 L 12/07/24 00:27 97.9 F 98 24 86/62 94 L 12/07/24 00:20 90 24 85/59 93 L 12/07/24 00:15 99 24 85/59 93 L 12/07/24 00:10 92 24 86/65 91 L 12/07/24 00:07 100 12/07/24 00:05 12/07/24 00:04 88 24 88/55 93 L 12/07/24 00:00 96 24 87/59 91 L 12/06/24 23:54 98 24 91/62 93 L 12/06/24 23:50 93 24 85/59 94 L 12/06/24 23:40 103 H 102 H 16 55/33 85/59 94 L 12/06/24 23:35 98 26 H 65/44 12/06/24 23:30 113 H 10 L 89/29 92 L 12/06/24 23:20 106 H 11 L 57/32 93 L 12/06/24 23:10 105 H 10 L 66/47 94 L 12/06/24 23:01 95 26 H 66/47 12/06/24 23:00 107 H 24 79/69 94 L 12/06/24 22:50 104 H 21 74/42 94 L 12/06/24 22:40 100 21 72/62 94 L 12/06/24 22:30 92 22 84/70 94 L 12/06/24 22:20 109 H 19 78/56 94 L 12/06/24 22:10 107 H 27 H 83/55 92 L 12/06/24 22:00 109 H 104 H 27 H 83/37 80/62 94 L 12/06/24 21:50 112 H 15 85/65 97 12/06/24 21:40 115 H 21 98/62 98 12/06/24 21:30 128 H 115 H 23 100/68 79/55 98 12/06/24 21:20 118 H 22 101/86 98 12/06/24 21:10 104 H 27 H 90/57 100 12/06/24 21:09 118 H 21 90/57 99 12/06/24 21:00 111 H 24 89/58 12/06/24 20:30 110 H 24 84/53 12/06/24 20:15 108 H 26 H 87/53 12/06/24 20:05 115 H 24 73/42 12/06/24 20:00 112 H 24 71/45 12/06/24 19:55 120 H 24 128/85 12/06/24 19:50 115 H 24 128/85 12/06/24 19:47 24 12/06/24 19:45 146 H 24 134/110 12/06/24 19:40 174 H 25 H 134/117 12/06/24 19:16 141 H 26 H 140/97 99 12/06/24 18:08 12/06/24 15:52 110 H 12/06/24 15:44 111 H 12/06/24 15:34 12/06/24 15:25 26 H 12/06/24 13:37 108 H 20 108/48 94 L 12/06/24 13:20 12/06/24 13:13 110 H 32 H 93/77 91 L FiO2 12/07/24 09:45 12/07/24 09:30 12/07/24 09:15 12/07/24 09:00 12/07/24 08:45 12/07/24 08:30 12/07/24 08:15 12/07/24 08:07 12/07/24 08:00 90 12/07/24 07:54 100 12/07/24 07:51 90 12/07/24 07:47 90 12/07/24 07:45 12/07/24 07:43 12/07/24 07:30 12/07/24 07:15 12/07/24 07:00 12/07/24 06:45 12/07/24 06:30 12/07/24 06:25 90 12/07/24 06:15 12/07/24 06:00 12/07/24 05:45 12/07/24 05:30 12/07/24 05:15 12/07/24 05:00 12/07/24 04:45 12/07/24 04:30 12/07/24 04:15 12/07/24 04:00 100 12/07/24 03:45 12/07/24 03:42 12/07/24 03:31 100 12/07/24 03:30 12/07/24 03:15 12/07/24 03:00 12/07/24 02:45 12/07/24 02:30 12/07/24 02:10 12/07/24 02:00 12/07/24 01:50 12/07/24 01:40 12/07/24 01:30 12/07/24 01:20 12/07/24 01:18 12/07/24 00:40 12/07/24 00:30 12/07/24 00:27 12/07/24 00:20 12/07/24 00:15 12/07/24 00:10 12/07/24 00:07 12/07/24 00:05 12/07/24 00:04 12/07/24 00:00 12/06/24 23:54 12/06/24 23:50 12/06/24 23:40 12/06/24 23:35 12/06/24 23:30 12/06/24 23:20 12/06/24 23:10 12/06/24 23:01 12/06/24 23:00 12/06/24 22:50 12/06/24 22:40 12/06/24 22:30 12/06/24 22:20 12/06/24 22:10 12/06/24 22:00 12/06/24 21:50 12/06/24 21:40 12/06/24 21:30 12/06/24 21:20 12/06/24 21:10 12/06/24 21:09 12/06/24 21:00 12/06/24 20:30 12/06/24 20:15 12/06/24 20:05 12/06/24 20:00 12/06/24 19:55 12/06/24 19:50 12/06/24 19:47 12/06/24 19:45 100 12/06/24 19:40 12/06/24 19:16 12/06/24 18:08 100 12/06/24 15:52 12/06/24 15:44 12/06/24 15:34 80 12/06/24 15:25 12/06/24 13:37 12/06/24 13:20 80 12/06/24 13:13 Intake and Output 12/06/24 12/07/24 12/07/24 22:59 06:59 14:59 Intake Total 23.297 977.392 416.67 Output Total 400 175 Balance 23.297 577.392 241.67 Intake: IV 200 Sodium Chloride 0.9% 1, 200 000 ml @ 100 mls/hr IV . Q10H BRIANA Rx#:[id number] Intake, IV Titration 23.297 977.392 216.67 Amount Amiodarone 450 mg In 50.01 16.67 Dextrose 5% in Water 250 ml @ 0.5 MG/MIN 16.667 mls/hr IV .Q15H BRIANA Rx#: [id number] Norepinephrine 4 mg In 191.693 Sodium Chloride 0.9% 250 ml @ 0.03 MCG/KG/MIN 12. 443 mls/hr IV .[id number] BRIANA Rx#:[id number] Sodium Chloride 0.9% 1, 500 100 000 ml @ 100 mls/hr IV . Q10H BRIANA Rx#:[id number] propofoL 1,000 mg In 23.297 235.689 100 Empty Bag 1 bag @ 15 MCG/ KG/MIN 9.798 mls/hr IV . [id number] BRIANA Rx#:[id number] Output: Urine 400 175 Other: Voiding Method Indwelling Catheter Weight 112.5 kg 112.5 kg ABP, PAP, CO, CI - Last 8 Hours Arterial Blood Pressure 103/64 Arterial Blood Pressure 106/62 Arterial Blood Pressure 98/62 Arterial Blood Pressure 87/57 Arterial Blood Pressure 101/62 General: Revealed an 84-year-old white male obese intubated mechanically ventilated, sedated, responses by withdrawal to pain HEENT: Atraumatic normocephalic, PERRLA, EOMI, anicteric, no neck masses no JVD NECK: Supple. No JVD. No lymphadenopathy. No thyromegaly. LUNGS: Diminished breath sounds at the bases minimal wheezing/scattered HEART: Irregular irregular rhythm, 2/6 systolic murmur over left lower sternal border ABDOMEN: Obese, soft. Bowel sounds are present. No masses. No tenderness. EXTREMITIES: +1 pedal edema. No tenderness, good pulses bilaterally. NEUROLOGICAL: Could not fully assess, patient is sedated on propofol. Psychiatric: Could not assess because of sedation Results - Laboratory Findings CBC and BMP: 12/07/24 09:37 12/07/24 03:19 ABG ABG pH 7.31 (7.35-7.45) L 12/07/24 05:32 ABG pCO2 44 mmHg (35-45) 12/07/24 05:32 ABG pO2 85 mmHg (83-108) 12/07/24 05:32 ABG O2 Saturation 95.8 % (94-97) 12/07/24 05:32 PT/INR, D-dimer PT 13.5 sec (10.0-12.5) H 12/07/24 09:37 INR 1.3 (<1.2) H 12/07/24 09:37 Abnormal lab findings: Abnormal Labs 12/06/24 12/06/24 12/06/24 13:32 13:32 13:32 WBC 34.1 H RBC Hgb Hct Plt Count Neutrophils # 32.7 H Lymphocytes # 0.3 L PT 15.5 H INR 1.5 H ABG pH ABG pCO2 ABG pO2 ABG HCO3 ABG Total CO2 ABG O2 Saturation Hemoglobin Sodium 135 L Carbon Dioxide BUN 33 H Creatinine Glucose 129 H POC Glucose (mg/dL) Calcium Total Protein 5.7 L Albumin 3.2 L Influenza Type A (PCR) 12/06/24 12/06/24 12/06/24 13:34 19:07 21:35 WBC RBC Hgb Hct Plt Count Neutrophils # Lymphocytes # PT INR ABG pH 7.32 L 7.24 L ABG pCO2 52 H 59 H ABG pO2 113 H ABG HCO3 27 H 26 H ABG Total CO2 28 H 27 H ABG O2 Saturation 97.9 H Hemoglobin Sodium Carbon Dioxide BUN Creatinine Glucose POC Glucose (mg/dL) Calcium Total Protein Albumin Influenza Type A (PCR) Detected A 12/07/24 12/07/24 12/07/24 00:56 03:13 03:19 WBC 43.6 H RBC 4.27 L Hgb 12.2 L Hct 38.6 L Plt Count Neutrophils # 42.1 H Lymphocytes # 0.4 L PT INR ABG pH ABG pCO2 ABG pO2 ABG HCO3 ABG Total CO2 ABG O2 Saturation Hemoglobin Sodium 133 L Carbon Dioxide 18 L BUN 35 H Creatinine 1.28 H Glucose 167 H POC Glucose (mg/dL) 166 H Calcium 7.4 L Total Protein Albumin Influenza Type A (PCR) 12/07/24 12/07/24 12/07/24 05:32 09:37 09:37 WBC 38.3 H RBC Hgb 12.9 L Hct Plt Count 141 L Neutrophils # Lymphocytes # PT 13.5 H INR 1.3 H ABG pH 7.31 L ABG pCO2 ABG pO2 ABG HCO3 ABG Total CO2 ABG O2 Saturation Hemoglobin 12.1 L Sodium Carbon Dioxide BUN Creatinine Glucose POC Glucose (mg/dL) Calcium Total Protein Albumin Influenza Type A (PCR) - Diagnostic Findings Chest x-ray: image reviewed (As noted in HPI) Assessment and Plan Assessment: Impression: Acute hypoxic respiratory failure, multifactorial Suspect persistent sepsis, possible septic shock from MRSA bacteremia, previous workup for endocarditis was negative. Moderate LV dysfunction but no clear-cut evidence of congestive heart failure based on chest x-ray Atrial fibrillation with RVR is mostly contributing to his shortness of breath not to mention the patient does have LV dysfunction Chronic systolic congestive heart failure with LV dysfunction Acute exacerbation of COPD, on proper bronchodilators and steroids History of benign prostatic hyperplasia History of factor VIII deficiency patient is normally on Xarelto 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, possible pulmonary embolism, may eventually need a CT angiogram of the chest however since the patient has acute kidney injury I prefer not to do so and heparinize the patient for now. Benign essential hypertension Acute influenza A infection Recent history of MRSA bacteremia unknown primary site of infection History of right total hip arthroplasty Recommendation: Continue ventilatory support Continue hemodynamic support Continue antibiotics empirically for now Noted the results of his venous Doppler patient is on heparin, will decide on CT angiogram of the chest in the next couple of days in the meantime continue anticoagulation therapy Close monitoring of I's and O's GI and DVT prophylaxis Nutritional support/enteral feeding Right radial arterial line was placed for hemodynamic monitoring patient is still on norepinephrine for now. Continue bronchodilators and methylprednisolone Continue amiodarone Continue Lipitor Hold Lasix if he remains hypotensive but the patient will eventually need to be placed back on Lasix 80 mg IV push every 12 hours Patient is critically ill Will continue to follow Time with Patient: Greater than 30
[2024-12-07] MEDS ORDERED: DEXTROSE 50% SYRINGE 50 ML IVP PRN ×2 (11:32)
[2024-12-07 11:33] LABS: Glucose,Whole Blood 208 mg/dL (70-110)
--- NOTE | 2024-12-07 11:35 | OP ---
OPERATIVE REPORT DATE OF SERVICE : PROCEDURE PERFORMED: Placement of a right radial arterial line. ASSISTING PHYSICIAN: Dr. Arina Whitney. ANESTHESIA USED: None deployed. PROCEDURE IN DETAIL: The patient was placed in a supine position, the right wrist was prepared in a sterile fashion. Drapes were applied. The right radial artery was palpated, cannulated and a guidewire was placed. A Cook's catheter was inserted over the guidewire, and the guidewire was removed. There was good blood flow, good waveform, no complications. Line was secured using 3.0 silk sutures. MMODL / IJN: [id number] /
[2024-12-07] MEDS: INSULIN ASPART (NovoLOG) 100 UNIT/ML VIAL SQ SCH (14:02)
--- NOTE | 2024-12-07 17:20 | P.PN ---
Subjective Progress Note Date: 12/07/24 HISTORY OF PRESENT ILLNESS This is a 84-year-old male with past medical history of hypertension, paroxysmal atrial fibrillation on Xarelto, benign prostatic hypertrophy, hiatal hernia, hereditary factor VIII deficiency, hyperlipidemia, mild intermittent asthma, mild COPD, patient was recently admitted to [facility] after he underwent right total hip arthroplasty that was done by Dr. Thakkar and he has been at [facility] for physical therapy rehabilitation, patient was recently hospitalized at [facility] from November 25 of December 04 after he was admitted for what appears to be right lower lobe pneumonia appears to be MRSA pneumonia, initially was started on vancomycin as well as cefepime was seen in consultation by pulm medicine as well as cardiology, he had a significant MRSA bacteremia, that responded very well to vancomycin, patient ended up going for transesophageal echocardiogram that did not show evidence of any vegetation, it did show evidence of 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%, patient was sent to [facility] December 04, 2024 while he was there he was requiring about 5 L nasal cannula of oxygen, I received a phone call from the nursing staff stating that the patient is in acute respiratory distress today, he was given 60 mg IM of Lasix as well as 80 mg IM of Solu-Medrol with nebulizer treatment along with Pulmicort and DuoNeb, without any relief, he was placed on nonrebreather, and patient was sent to the ER for evaluation, he was found to have a significant leukocytosis with a white count of 36,000, his swab came back positive for influenza A, and chest x-ray showed evidence of cardiomegaly as well as basilar pneumonia patient was started back on his vancomycin as well as cefepime he was started on Tamiflu, he was started on Lasix 80 mg IV push every 12 hours, along with Solu-Medrol 60 mg IV push every 6 hours, DuoNeb nebulization 4 times every day Pulmicort 1 mg nebulization twice every day he is currently on BiPAP, pulmonary consultation as well as cardiology consultation. Sputum culture will be obtained as well as blood cultures. 12/07: While the patient yesterday in the emergency department he went into severe respiratory distress while he was on the BiPAP, he did receive 1 dose of Lasix 80 mg IV push, along with Solu-Medrol 60 mg IV push along with nebulized treatment in the form of DuoNeb as well as Pulmicort, without relief, at that time the decision was made for the patient to be intubated and transferred to the intensive care unit from the emergency department, patient is currently sedated on the ventilator, he is currently on amiodarone drip, as well as propofol drip, he is on 90% FiO2, with a PEEP of 5, pulmonary/critical care is following the patient very closely, cardiology is following as well, patient was started on IV antibiotic in the form of vancomycin as well as cefepime, he was started on Tamiflu as well due to influenza A, his white count initially was elevated at 43,000 down to 38,000, patient appears quite sick at this point in time, his prognosis continue be guarded, will continue with aggressive treatment plan for now, we will follow-up with the patient very closely. REVIEW OF SYSTEMS Patient is sedated on the ventilator. PHYSICAL EXAMINATION Gen: This is an obese 84-year-old is sedated on the ventilator HEENT: Head is atraumatic, normocephalic. Pupils equal, round. Sclerae is anicteric, there is an NG tube in place, and ET tube placed NECK: Supple. No JVD. No lymphadenopathy. No thyromegaly. LUNGS: decreased breath sound at bases, few rhonchi, minimal expiratory whee zes, no chest wall tenderness, no intercostal retractions. HEART: First heart sound is depressed, second heart sound is normal, 2/6 systolic ejection murmur at the left sternal border, irregular irregular due to atrial fibrillation. ABDOMEN: Soft. Bowel sounds are present. No masses. No tenderness. EXTREMITIES: +1 pedal edema. No calf tenderness. Pain in the left hip. Dorsalis pedis palpable bilaterally. NEUROLOGICAL: Patient is currently sedated on the ventilator. ASSESSMENT AND PLAN: 1. Acute vent dependent hypoxemic respiratory failure due to acute systolic heart failure as well as acute left lower lobe gram-negative pneumonia and influenza A. Continue patient on current vent setting, pulmonary is to continue to follow-up with the patient, continue patient on vancomycin,/cefepime,/Tamiflu,/continue aggressive pulmonary toileting with DuoNeb as well as Pulmicort, continue Solu-Medrol 60 mg IV push every 6 hours [id number], continue to follow-up with the patient very closely, blood culture, sputum culture, we will follow-up with the patient while he is in the ICU. Patient has been started on Levophed drip at the small dose. 2. Gram-negative pneumonia with sepsis likely due to gram-negative along with MRSA along with influenza A. Continue treatment as in Paragraph #1 3. Atrial fibrillation with rapid ventricular response. Cardiology contacted, patient was started on amiodarone drip, continue patient on heparin drip for now he was taken off Xarelto. 4. Acute on chronic diastolic heart failure . Continue Lasix 80 mg IV push e very 12 hours, continue to monitor the patient very closely. 5. COPD exacerbation. Continue Solu-Medrol 60 mg IV push every 6 hours, continue Pulmicort 1 mg nebulization twice every day, DuoNeb 3 manipulation 4 times every day, oxygen support, currently on the ventilator. 6. Mild intermittent asthma. Continue Singulair 10 mg at bedtime, loratadine 10 mg once every day, continue aggressive pulmonary toileting. 7. Benign prostatic hypertrophy. Continue Flomax 0.4 mg currently has a Henry catheter in place. 8. Hereditary factor VIII deficiency. Continue heparin drip for now. 9. Hyperlipidemia. Continue Zetia 10 mg daily and Atorvastatin 40 mg once a day. Monitor the patient lipid panel, keep LDL 55-70 10. Hypertension and hypertensive cardiovascular disease. Continue metoprolol 150 mg orally twice every day 11. GI prophylaxis. Protonix 40 mg IV push daily. 12. DVT prophylaxis. Continue drip for now. 13. Major depressive disorder. Continue patient on Effexor XR 37.5 mg orally once every day. 14. Prognosis is guarded 15. Full code. Objective - Vital Signs Vital signs: Vital Signs Temp 98.1 F 12/07/24 05:00 Pulse 88 12/07/24 08:07 Resp 21 12/07/24 07:00 BP 94/62 12/07/24 07:00 Pulse Ox 91 L 12/07/24 07:00 FiO2 100 12/07/24 07:54 Intake & Output 12/06/24 12/07/24 12/07/24 18:59 06:59 18:59 Intake Total 1000.689 116.67 Output Total 400 50 Balance 600.689 66.67 Weight 108.862 kg 112.5 kg Intake: Intake, IV Titration 1000.689 116.67 Amount Amiodarone 450 mg In 50.01 16.67 Dextrose 5% in Water 250 ml @ 0.5 MG/MIN 16.667 mls/hr IV .Q15H BRIANA Rx#: [id number] Norepinephrine 4 mg In 191.693 Sodium Chloride 0.9% 250 ml @ 0.03 MCG/KG/MIN 12. 443 mls/hr IV .[id number] BRIANA Rx#:[id number] Sodium Chloride 0.9% 1, 500 100 000 ml @ 100 mls/hr IV . Q10H BRIANA Rx#:[id number] propofoL 1,000 mg In 258.986 Empty Bag 1 bag @ 15 MCG/ KG/MIN 9.798 mls/hr IV . [id number] BRIANA Rx#:[id number] Output: Urine 400 50 Other: Voiding Method Indwelling Catheter - Labs CBC & Chem 7: 12/07/24 09:37 12/07/24 03:19 Labs: Abnormal Lab Results - Last 24 Hours (Table) 12/06/24 12/06/24 12/06/24 Range/Units 13:32 13:32 13:32 WBC 34.1 H (3.8-10.6) k/uL RBC (4.30-5.90) m/uL Hgb (13.0-17.5) gm/dL Hct (39.0-53.0) % Neutrophils # 32.7 H (1.3-7.7) k/uL Lymphocytes # 0.3 L (1.0-4.8) k/uL PT 15.5 H (10.0-12.5) sec INR 1.5 H (<1.2) ABG pH (7.35-7.45) ABG pCO2 (35-45) mmHg ABG pO2 (83-108) mmHg ABG HCO3 (21-25) mmol/L ABG Total CO2 (19-24) mmol/L ABG O2 Saturation (94-97) % Hemoglobin (13.0-17.5) gm/dL Sodium 135 L (137-145) mmol/L Carbon Dioxide (22-30) mmol/L BUN 33 H (9-20) mg/dL Creatinine (0.66-1.25) mg/dL Glucose 129 H (74-99) mg/dL POC Glucose (mg/dL) (70-110) mg/dL Calcium (8.4-10.2) mg/dL Total Protein 5.7 L (6.3-8.2) g/dL Albumin 3.2 L (3.5-5.0) g/dL Influenza Type A (PCR) (Not Detectd) 12/06/24 12/06/24 12/06/24 Range/Units 13:34 19:07 21:35 WBC (3.8-10.6) k/uL RBC (4.30-5.90) m/uL Hgb (13.0-17.5) gm/dL Hct (39.0-53.0) % Neutrophils # (1.3-7.7) k/uL Lymphocytes # (1.0-4.8) k/uL PT (10.0-12.5) sec INR (<1.2) ABG pH 7.32 L 7.24 L (7.35-7.45) ABG pCO2 52 H 59 H (35-45) mmHg ABG pO2 113 H (83-108) mmHg ABG HCO3 27 H 26 H (21-25) mmol/L ABG Total CO2 28 H 27 H (19-24) mmol/L ABG O2 Saturation 97.9 H (94-97) % Hemoglobin (13.0-17.5) gm/dL Sodium (137-145) mmol/L Carbon Dioxide (22-30) mmol/L BUN (9-20) mg/dL Creatinine (0.66-1.25) mg/dL Glucose (74-99) mg/dL POC Glucose (mg/dL) (70-110) mg/dL Calcium (8.4-10.2) mg/dL Total Protein (6.3-8.2) g/dL Albumin (3.5-5.0) g/dL Influenza Type A (PCR) Detected A (Not Detectd) 12/07/24 12/07/24 12/07/24 Range/Units 00:56 03:13 03:19 WBC 43.6 H (3.8-10.6) k/uL RBC 4.27 L (4.30-5.90) m/uL Hgb 12.2 L (13.0-17.5) gm/dL Hct 38.6 L (39.0-53.0) % Neutrophils # 42.1 H (1.3-7.7) k/uL Lymphocytes # 0.4 L (1.0-4.8) k/uL PT (10.0-12.5) sec INR (<1.2) ABG pH (7.35-7.45) ABG pCO2 (35-45) mmHg ABG pO2 (83-108) mmHg ABG HCO3 (21-25) mmol/L ABG Total CO2 (19-24) mmol/L ABG O2 Saturation (94-97) % Hemoglobin (13.0-17.5) gm/dL Sodium 133 L (137-145) mmol/L Carbon Dioxide 18 L (22-30) mmol/L BUN 35 H (9-20) mg/dL Creatinine 1.28 H (0.66-1.25) mg/dL Glucose 167 H (74-99) mg/dL POC Glucose (mg/dL) 166 H (70-110) mg/dL Calcium 7.4 L (8.4-10.2) mg/dL Total Protein (6.3-8.2) g/dL Albumin (3.5-5.0) g/dL Influenza Type A (PCR) (Not Detectd) 12/07/24 Range/Units 05:32 WBC (3.8-10.6) k/uL RBC (4.30-5.90) m/uL Hgb (13.0-17.5) gm/dL Hct (39.0-53.0) % Neutrophils # (1.3-7.7) k/uL Lymphocytes # (1.0-4.8) k/uL PT (10.0-12.5) sec INR (<1.2) ABG pH 7.31 L (7.35-7.45) ABG pCO2 (35-45) mmHg ABG pO2 (83-108) mmHg ABG HCO3 (21-25) mmol/L ABG Total CO2 (19-24) mmol/L ABG O2 Saturation (94-97) % Hemoglobin 12.1 L (13.0-17.5) gm/dL Sodium (137-145) mmol/L Carbon Dioxide (22-30) mmol/L BUN (9-20) mg/dL Creatinine (0.66-1.25) mg/dL Glucose (74-99) mg/dL POC Glucose (mg/dL) (70-110) mg/dL Calcium (8.4-10.2) mg/dL Total Protein (6.3-8.2) g/dL Albumin (3.5-5.0) g/dL Influenza Type A (PCR) (Not Detectd) Microbiology - Last 24 Hours (Table) 12/06/24 20:40 Gram Stain - Preliminary Sputum
[2024-12-07 17:46] LABS: Glucose,Whole Blood 188 mg/dL (70-110)
--- NOTE | 2024-12-07 19:36 | P.CRDCN ---
History of Present Illness Consult date: 12/07/24 History of present illness: HISTORY OF PRESENTING ILLNESS: Patient is a 84-year-old male with past medical history of hypertension, paroxysmal atrial fibrillation and other multiple comorbidities. He was recently admitted at [facility] for a right total hip arthroplasty and was then sent to [facility] for physical therapy and rehabilitation. Patient was again hospitalized at [facility] from November 25 to December 04 this time was found to have MRSA pneumonia and was treated with vancomycin. He had a transesophageal echocardiogram which did not show any significant intracardiac infections or concerns of infective endocarditis. This time he presented to the hospital because of increased worsening shortness of breath. On admission he was tested positive for influenza A. Chest x-ray showed concerns of basilar pneumonia and congestive heart failure exacerbation. Due to respiratory distress and increased work of breathing he was intubated. Admission Cardiac Labs: Hemoglobin 12.9, BUN 33, creatinine 1.06, troponin was 0.027, NT-proBNP 2000, Admission testing: EKG shows atrial fibrillation with RVR, right bundle branch block, occasional PV Cs Prior cardiac testing: Echo from November 2024 shows LVEF 40 to 45%, mild aortic regurgitation. Technically difficult study REVIEW OF SYSTEMS: 14 point review of system is negative except what is mentioned above in HPI. PHYSICAL EXAMINATION: Neck: Brisk carotid upstroke, Lungs: ET tube in place on vent support, mild crackles and rhonchi audible Heart: Irregularly irregular pulse, S1-S2, mild diastolic murmur audible Abdomen: Soft nontender, positive bowel sounds. Extremities: 1+ pitting edema. Neuro: Under sedation. Detailed neuroexam was not performed. ASSESSMENT: # Atrial fibrillation with RVR # Septic shock # Acute vent dependent hypoxic respiratory failure with influenza pneumonia # Gram-negative pneumonia # Acute on chronic diastolic heart failure # BLADE SHARPENER exacerbation # Factor VIII deficiency # Hypertension, dyslipidemia, obesity PLAN: Continue amiodarone drip. Resume low-dose beta-niraj once patient is able to titrate down from pressors Continue supportive care from ICU and primary care team Prognosis is guarded Ez Taylor MD, FACC, RPVI Thank you for allowing [facility] to participate in this patient's care. Feel free to reach out in case of any followup questions. Past Medical History Past Medical History: Atrial Fibrillation, Asthma, Cancer, Diabetes Mellitus, Deep Vein Thrombosis (DVT), GERD/Reflux, Hearing Disorder / Deafness, Hyperlipidemia, Hypertension, Osteoarthritis (OA), Pneumonia, Prostate Disorder Additional Past Medical History / Comment(s): Hx pneumonia yrs ago, RSV/ hospitalized x 2 weeks in ICU, dvt R calf, hiatal hernia, hx kidney stones, WIYOT use of bilateral hearing aids. skin ca; "pre diabetic". History of Any Multi-Drug Resistant Organisms: MRSA Date of last positivie culture/infection: 11/25/24 MDRO Source:: blood Past Surgical History: Joint Replacement, Orthopedic Surgery Additional Past Surgical History / Comment(s): Bilateral knee replacements., total L hip arthroplasty, LIS and cardioversions, elbow surg, cystoscopy & right ureter stent Aug 2024, stent removed Sep 2024. Right TAD. Past Anesthesia/Blood Transfusion Reactions: No Reported Reaction Past Psychological History: Depression Additional Psychological History / Comment(s): Pt resides alone. Spouse 04/2023 Smoking Status: Never smoker Past Alcohol Use History: Rare Additional Past Alcohol Use History / Comment(s): Quit smoking 50 yrs ago. Past Drug Use History: None Reported - Past Family History Mother Family Medical History: No Reported History Father Additional Family Medical History / Comment(s): open heart Medications and Allergies Home Medications Medication Instructions Recorded Confirmed Type Tamsulosin HCl [Flomax] 0.4 mg PO HS 05/29/18 12/06/24 History Albuterol Sulfate [Albuterol 1 puff INHALATION RT-Q4H PRN 10/07/21 12/06/24 History Sulfate Hfa] Fluticasone Nasal [place] [Flonase 1 spr EA NOSTRIL Q12H PRN 06/02/22 12/06/24 History Nasal [place]] Fluticasone/Umeclidin/Vilanter 1 puff INHALATION RT-DAILY 09/07/23 12/06/24 History [Trelegy Ellipta 200-62.5-25] Atorvastatin [Lipitor] 40 mg PO HS 10/16/23 12/06/24 History Ezetimibe [Zetia] 10 mg PO HS 10/16/23 12/06/24 History Levocetirizine Dihydrochloride 5 mg PO HS 10/16/23 12/06/24 History [Xyzal] Dapagliflozin Propanediol [Farxiga] 10 mg PO DAILY #30 tab 03/27/24 12/06/24 Rx Budesonide/Formoterol Fumarate 1 puff INHALATION RT-BID@0800,1600 09/13/24 12/06/24 History [Breyna 160-4.5 Mcg Inhaler] Cholecalciferol (Vitamin D3) 50 mcg PO DAILY 10/21/24 12/06/24 History [Vitamin D3 (50 Mcg = 2000 Iu)] Ondansetron [Zofran] 4 mg PO Q6HR PRN #30 tab 10/25/24 12/06/24 Rx guaiFENesin SYRUP 100MG/5ML 200 mg PO Q6HR PRN ml 10/30/24 12/06/24 Rx [Robitussin] Acetaminophen [Tylenol 8 Hour] 650 mg PO Q6H PRN 11/25/24 12/06/24 History Benzonatate [Tessalon Perles] 100 mg PO TID 11/25/24 12/06/24 History Docusate [Colace] 100 mg PO BID@0800,1600 11/25/24 12/06/24 History Furosemide [Lasix] 40 mg PO BID 11/25/24 12/06/24 History Ipratropium-Albuterol Nebulize 3 ml INHALATION RT-Q6H 11/25/24 12/06/24 History [Duoneb 0.5 mg-3 mg/3 ml Soln] Naloxone HCl [Narcan] 4 mg NASAL ONCE PRN 11/25/24 12/06/24 History Potassium Chloride [Klor-Con M20] 20 meq PO DAILY 11/25/24 12/06/24 History Rivaroxaban [Xarelto] 20 mg PO DAILY 11/25/24 12/06/24 History Sennosides [Senokot] 17.2 mg PO DAILY PRN 11/25/24 12/06/24 History polyethylene glycoL 3350 [Miralax] 17 gm PO Q24H PRN 11/25/24 12/06/24 History HYDROcodone/APAP 5-325MG [[place] 1 tab PO Q6HR PRN #12 tab 12/04/24 12/06/24 Rx 5-325] Losartan [Cozaar] 25 mg PO DAILY tab 12/04/24 12/06/24 Rx Metoprolol Tartrate [Lopressor] 150 mg PO BID tab 12/04/24 12/06/24 Rx Spironolactone [Aldactone] 25 mg PO DAILY tab 12/04/24 12/06/24 Rx Vancomycin 1,750 mg IVPB Q16H 10 Days each 12/04/24 12/06/24 Rx Ammonium Lactate Cream [Lac-Hydrin 1 applic TOPICAL Q12H PRN 12/06/24 12/06/24 History 12% Cream] Magnesium Hydroxide [Milk of 2,400 mg PO Q24H PRN 12/06/24 12/06/24 History Magnesia] Omeprazole 20 mg PO HS 12/06/24 12/06/24 History Venlafaxine HCl ER [Effexor Xr] 37.5 mg PO HS 12/06/24 12/06/24 History predniSONE See Taper PO DAILY 12/06/24 12/06/24 History Allergies Allergy/AdvReac Type Severity Reaction Status Date / Time rosuvastatin [From Crestor] AdvReac muscle Verified 12/06/24 14:08 soreness/cramps Physical Exam Vitals: Vital Signs Temp Pulse Pulse Resp BP BP Pulse Ox 12/07/24 18:45 111 H 27 H 95 12/07/24 18:30 124 H 24 96 12/07/24 18:15 117 H 24 96 12/07/24 18:00 115 H 24 96 12/07/24 17:45 121 H 23 94 L 12/07/24 17:30 112 H 33 H 95 12/07/24 17:15 122 H 24 95 12/07/24 17:00 116 H 24 95 12/07/24 16:45 104 H 24 93 L 12/07/24 16:30 118 H 24 94 L 12/07/24 16:15 111 H 24 94 L 12/07/24 16:00 94.3 F L 108 H 24 95 12/07/24 15:45 109 H 24 94 L 12/07/24 15:30 116 H 24 94 L 12/07/24 15:18 104 H 12/07/24 15:15 103 H 24 95 12/07/24 15:06 110 H 12/07/24 15:00 112 H 24 94 L 12/07/24 14:45 110 H 24 94 L 12/07/24 14:30 116 H 24 92 L 12/07/24 14:15 112 H 24 94 L 12/07/24 14:00 120 H 24 93 L 12/07/24 13:45 112 H 24 93 L 12/07/24 13:30 115 H 24 94 L 12/07/24 13:15 110 H 24 94 L 12/07/24 13:00 122 H 21 93 L 12/07/24 12:45 125 H 20 94 L 12/07/24 12:30 115 H 20 94 L 12/07/24 12:15 120 H 10 L 94 L 12/07/24 12:00 96.3 F L 116 H 20 92 L 12/07/24 11:45 124 H 11 L 90 L 12/07/24 11:30 117 H 7 L 89 L 12/07/24 11:25 97 12/07/24 11:15 108 H 19 92 L 12/07/24 11:13 101 H 12/07/24 11:08 12/07/24 11:00 113 H 20 94 L 12/07/24 10:45 112 H 21 94 L 12/07/24 10:30 106 H 24 93 L 12/07/24 10:15 115 H 24 93 L 12/07/24 10:00 114 H 20 92 L 12/07/24 09:45 108 H 24 12/07/24 09:30 106 H 20 93 L 12/07/24 09:15 114 H 21 91 L 12/07/24 09:00 115 H 21 92 L 12/07/24 08:45 105 H 21 93 L 12/07/24 08:30 114 H 20 90/62 92 L 12/07/24 08:15 97 25 H 104/63 92 L 12/07/24 08:07 88 12/07/24 08:00 98.5 F 98 20 95/63 92 L 12/07/24 07:54 12/07/24 07:51 12/07/24 07:47 12/07/24 07:45 93 8 L 97/63 89 L 12/07/24 07:43 98 12/07/24 07:30 94 24 98/63 89 L 12/07/24 07:15 88 21 93/64 90 L 12/07/24 07:00 97 21 94/62 91 L 12/07/24 06:45 93 20 98/64 92 L 12/07/24 06:30 88 20 80/53 95 12/07/24 06:25 12/07/24 06:15 93 19 101/79 94 L 12/07/24 06:00 87 24 91/58 96 12/07/24 05:45 96 21 101/65 96 12/07/24 05:30 39 H 93/72 95 12/07/24 05:15 96 27 H 85/62 95 12/07/24 05:00 98.1 F 98 24 89/74 95 12/07/24 04:45 104 H 20 97/70 96 12/07/24 04:30 93 21 96/64 95 12/07/24 04:15 91 20 96/71 94 L 12/07/24 04:00 87 20 81/64 93 L 12/07/24 03:45 89 9 L 82/65 93 L 12/07/24 03:42 87 12/07/24 03:31 12/07/24 03:30 75 8 L 89/64 92 L 12/07/24 03:15 88 26 H 85/60 92 L 12/07/24 03:00 72 21 90/66 91 L 12/07/24 02:45 92 20 90/65 91 L 12/07/24 02:30 83 25 H 90/65 92 L 12/07/24 02:10 91 26 H 99/76 93 L 12/07/24 02:00 97 26 H 96/75 92 L 12/07/24 01:50 96 25 H 96/75 93 L 12/07/24 01:40 86 23 95/73 92 L 12/07/24 01:30 90 14 93/72 92 L 12/07/24 01:20 84 25 H 93/72 91 L 12/07/24 01:18 92 25 H 93/72 91 L 12/07/24 00:40 95/67 12/07/24 00:30 98.2 F 84 24 86/62 94 L 12/07/24 00:27 97.9 F 98 24 86/62 94 L 12/07/24 00:20 90 24 85/59 93 L 12/07/24 00:15 99 24 85/59 93 L 12/07/24 00:10 92 24 86/65 91 L 12/07/24 00:07 100 12/07/24 00:05 12/07/24 00:04 88 24 88/55 93 L 12/07/24 00:00 96 24 87/59 91 L 12/06/24 23:54 98 24 91/62 93 L 12/06/24 23:50 93 24 85/59 94 L 12/06/24 23:40 103 H 102 H 16 55/33 85/59 94 L 12/06/24 23:35 98 26 H 65/44 12/06/24 23:30 113 H 10 L 89/29 92 L 12/06/24 23:20 106 H 11 L 57/32 93 L 12/06/24 23:10 105 H 10 L 66/47 94 L 12/06/24 23:01 95 26 H 66/47 12/06/24 23:00 107 H 24 79/69 94 L 12/06/24 22:50 104 H 21 74/42 94 L 12/06/24 22:40 100 21 72/62 94 L 12/06/24 22:30 92 22 84/70 94 L 12/06/24 22:20 109 H 19 78/56 94 L 12/06/24 22:10 107 H 27 H 83/55 92 L 12/06/24 22:00 109 H 104 H 27 H 83/37 80/62 94 L 12/06/24 21:50 112 H 15 85/65 97 12/06/24 21:40 115 H 21 98/62 98 12/06/24 21:30 128 H 115 H 23 100/68 79/55 98 12/06/24 21:20 118 H 22 101/86 98 12/06/24 21:10 104 H 27 H 90/57 100 12/06/24 21:09 118 H 21 90/57 99 12/06/24 21:00 111 H 24 89/58 12/06/24 20:30 110 H 24 84/53 12/06/24 20:15 108 H 26 H 87/53 12/06/24 20:05 115 H 24 73/42 12/06/24 20:00 112 H 24 71/45 12/06/24 19:55 120 H 24 128/85 12/06/24 19:50 115 H 24 128/85 12/06/24 19:47 24 12/06/24 19:45 146 H 24 134/110 12/06/24 19:40 174 H 25 H 134/117 FiO2 12/07/24 18:45 12/07/24 18:30 12/07/24 18:15 12/07/24 18:00 12/07/24 17:45 12/07/24 17:30 12/07/24 17:15 12/07/24 17:00 12/07/24 16:45 12/07/24 16:30 12/07/24 16:15 12/07/24 16:00 90 12/07/24 15:45 12/07/24 15:30 12/07/24 15:18 12/07/24 15:15 12/07/24 15:06 90 12/07/24 15:00 12/07/24 14:45 12/07/24 14:30 12/07/24 14:15 12/07/24 14:00 12/07/24 13:45 12/07/24 13:30 12/07/24 13:15 12/07/24 13:00 12/07/24 12:45 12/07/24 12:30 12/07/24 12:15 12/07/24 12:00 90 12/07/24 11:45 12/07/24 11:30 12/07/24 11:25 12/07/24 11:15 12/07/24 11:13 12/07/24 11:08 90 12/07/24 11:00 12/07/24 10:45 12/07/24 10:30 12/07/24 10:15 12/07/24 10:00 12/07/24 09:45 12/07/24 09:30 12/07/24 09:15 12/07/24 09:00 12/07/24 08:45 12/07/24 08:30 12/07/24 08:15 12/07/24 08:07 12/07/24 08:00 90 12/07/24 07:54 100 12/07/24 07:51 90 12/07/24 07:47 90 12/07/24 07:45 12/07/24 07:43 12/07/24 07:30 12/07/24 07:15 12/07/24 07:00 12/07/24 06:45 12/07/24 06:30 12/07/24 06:25 90 12/07/24 06:15 12/07/24 06:00 12/07/24 05:45 12/07/24 05:30 12/07/24 05:15 12/07/24 05:00 12/07/24 04:45 12/07/24 04:30 12/07/24 04:15 12/07/24 04:00 12/07/24 03:45 12/07/24 03:42 12/07/24 03:31 12/07/24 03:30 12/07/24 03:15 12/07/24 03:00 12/07/24 02:45 12/07/24 02:30 12/07/24 02:10 12/07/24 02:00 12/07/24 01:50 12/07/24 01:40 12/07/24 01:30 12/07/24 01:20 12/07/24 01:18 12/07/24 00:40 12/07/24 00:30 12/07/24 00:27 12/07/24 00:20 12/07/24 00:15 12/07/24 00:10 12/07/24 00:07 12/07/24 00:05 12/07/24 00:04 12/07/24 00:00 12/06/24 23:54 12/06/24 23:50 12/06/24 23:40 12/06/24 23:35 12/06/24 23:30 12/06/24 23:20 12/06/24 23:10 12/06/24 23:01 12/06/24 23:00 12/06/24 22:50 12/06/24 22:40 12/06/24 22:30 12/06/24 22:20 12/06/24 22:10 12/06/24 22:00 12/06/24 21:50 12/06/24 21:40 12/06/24 21:30 12/06/24 21:20 12/06/24 21:10 12/06/24 21:09 12/06/24 21:00 12/06/24 20:30 12/06/24 20:15 12/06/24 20:05 12/06/24 20:00 12/06/24 19:55 12/06/24 19:50 12/06/24 19:47 12/06/24 19:45 100 12/06/24 19:40 Intake and Output 12/07/24 12/07/24 12/07/24 06:59 14:59 22:59 Intake Total 048.750 8616.977 824.833 Output Total 400 315 210 Balance 577.392 803.977 614.833 Intake: IV 700 500 Sodium Chloride 0.9% 1, 700 500 000 ml @ 100 mls/hr IV . Q10H BRIANA Rx#:[id number] Intake, IV Titration 977.392 378.977 174.833 Amount Amiodarone 450 mg In 50.01 16.67 Dextrose 5% in Water 250 ml @ 0.5 MG/MIN 16.667 mls/hr IV .Q15H BRIANA Rx#: [id number] Heparin Sod,Pork in 0.45% 74.833 NaCl 25,000 unit In 0.45 % NaCl 1 250ml.bag @ 8. 889 UNITS/KG/HR 10 mls/hr IV .Q24H BRIANA Rx#: [id number] Norepinephrine 4 mg In 191.693 62.307 Sodium Chloride 0.9% 250 ml @ 0.03 MCG/KG/MIN 12. 443 mls/hr IV .[id number] BRIANA Rx#:[id number] Sodium Chloride 0.9% 1, 500 100 000 ml @ 100 mls/hr IV . Q10H BRIANA Rx#:[id number] propofoL 1,000 mg In 235.689 200 100 Empty Bag 1 bag @ 15 MCG/ KG/MIN 9.798 mls/hr IV . [id number] BRIANA Rx#:[id number] Tube Feeding 40 120 Other 30 Output: Urine 400 315 210 Other: Voiding Method Indwelling Catheter Indwelling Catheter Indwelling Catheter Weight 112.5 kg 112.5 kg ABP, PAP, CO, CI - Last 8 Hours Arterial Blood Pressure 96/59 Arterial Blood Pressure 103/58 Arterial Blood Pressure 96/59 Arterial Blood Pressure 95/59 Arterial Blood Pressure 106/57 Arterial Blood Pressure 103/59 Arterial Blood Pressure 98/59 Arterial Blood Pressure 106/56 Arterial Blood Pressure 92/55 Arterial Blood Pressure 101/54 Arterial Blood Pressure 100/55 Arterial Blood Pressure 97/61 Arterial Blood Pressure 104/62 Arterial Blood Pressure 95/56 Arterial Blood Pressure 108/57 Arterial Blood Pressure 98/59 Arterial Blood Pressure 104/57 Arterial Blood Pressure 100/59 Arterial Blood Pressure 106/56 Arterial Blood Pressure 97/61 Arterial Blood Pressure 106/61 Arterial Blood Pressure 97/58 Arterial Blood Pressure 92/57 Arterial Blood Pressure 104/61 Arterial Blood Pressure 101/57 Arterial Blood Pressure 99/59 Arterial Blood Pressure 96/58 Arterial Blood Pressure 104/56 Arterial Blood Pressure 129/84 Results 12/07/24 09:37 12/07/24 03:19 Coagulation 12/07/24 12/07/24 Range/Units 09:37 16:10 PT 13.5 H (10.0-12.5) sec APTT 23.3 76.3 H (22.0-30.0) sec CBC 12/07/24 12/07/24 Range/Units 03:13 09:37 WBC 43.6 H 38.3 H (3.8-10.6) k/uL RBC 4.27 L 4.49 (4.30-5.90) m/uL Hgb 12.2 L 12.9 L (13.0-17.5) gm/dL Hct 38.6 L 40.1 (39.0-53.0) % Plt Count 185 141 L (150-450) k/uL Comprehensive Metabolic Panel 12/07/24 Range/Units 03:19 Sodium 133 L (137-145) mmol/L Potassium 4.6 (3.5-5.1) mmol/L Chloride 104 (98-107) mmol/L Carbon Dioxide 18 L (22-30) mmol/L BUN 35 H (9-20) mg/dL Creatinine 1.28 H (0.66-1.25) mg/dL Glucose 167 H (74-99) mg/dL Calcium 7.4 L (8.4-10.2) mg/dL Current Medications Generic Name Dose Route Start Last Admin Trade Name Freq PRN Reason Stop Dose Admin Acetaminophen 650 mg 12/06/24 15:45 Acetaminophen Tab 325 Mg Tab PO Q6HR PRN Mild Pain or Fever > 100.5 Hydrocodone Bitart/Acetaminophen 1 each 12/06/24 15:49 Hydrocodone/Apap 5-325mg 1 Each Tab PO Q6HR PRN Pain Albuterol/Ipratropium 3 ml 12/06/24 16:00 12/07/24 15:06 Ipratropium-Albuterol 3 Ml Neb INHALATION 3 ml RT-Q4H BRIANA Administration Atorvastatin Calcium 40 mg 12/06/24 21:00 12/06/24 22:47 Atorvastatin 40 Mg Tab PO Not Given HS BRIANA Benzonatate 100 mg 12/06/24 16:00 12/07/24 16:39 Benzonatate 100 Mg Cap PO Not Given TID BRIANA Budesonide 1 mg 12/06/24 20:00 12/07/24 07:41 Budesonide 1 Mg/2 Ml Nebu INHALATION 1 mg RT-BID BRIANA Administration Chlorhexidine Gluconate 15 ml 12/06/24 21:00 12/07/24 09:57 Chlorhexidine Gluconate 15 Ml Cup MUCOUS MEM 15 ml BID BRIANA Administration Cholecalciferol 50 mcg 12/07/24 09:00 12/07/24 09:57 Cholecalciferol 25 Mcg (1000 Iu) Tablet PO 50 mcg DAILY BRIANA Administration Dapagliflozin 10 mg 12/07/24 09:00 12/07/24 09:58 Dapagliflozin Propanediol 10 Mg Tablet PO 10 mg DAILY BRIANA Administration Dextrose/Water 25 ml 12/07/24 11:32 Dextrose 50% Syringe 50 Ml IVP PER PROTOCOL PRN Hypoglycemia Protocol Dextrose/Water 50 ml 12/07/24 11:32 Dextrose 50% Syringe 50 Ml IVP PER PROTOCOL PRN Hypoglycemia Protocol Docusate Sodium 100 mg 12/06/24 16:00 12/07/24 16:39 Docusate 100 Mg Cap PO Not Given BID@0800,1600 ON LICENSE OF [facility] Ezetimibe 10 mg 12/06/24 21:00 12/06/24 22:48 Ezetimibe 10 Mg Tab PO Not Given HS ON LICENSE OF [facility] Fluticasone Propionate 1 spray 12/06/24 15:49 Fluticasone Nasal 50mcg/[place] 16gm Btl EA NOSTRIL Q12H PRN Seasonal Allergic Rhinitis Furosemide 80 mg 12/06/24 18:45 12/07/24 09:59 Furosemide 10 Mg/Ml 10 Ml Vial IV Not Given Q12HR ON LICENSE OF [facility] Guaifenesin 200 mg 12/06/24 15:49 Guaifenesin Syrup 100mg/5ml 200 Mg/10 Ml Cup PO Q6HR PRN Cough Heparin Sodium (Porcine) 0 unit 12/07/24 08:45 Heparin Sodium 1,000 Un/Ml (10ml Vl) IV PER PROTOCOL PRN Low PTT Protocol Cefepime HCl 2 gm/ Sodium 100 mls @ 25 mls/hr 12/06/24 16:00 12/07/24 16:40 Chloride IVPB 25 mls/hr Q12H BRIANA Administration Protocol Vancomycin HCl 1,750 mg/ 500 mls @ 167 mls/hr 12/06/24 21:00 12/06/24 22:57 Sodium Chloride IVPB 167 mls/hr Q24H BRIANA Administration Propofol 1,000 mg/ IV Solution 100 mls @ 9.798 mls/hr 12/06/24 20:00 12/07/24 19:23 IV 50 mcg/kg/min .[id number] BRIANA 32.659 mls/hr Administration Protocol 15 MCG/KG/MIN Norepinephrine Bitartrate 4 mg 254 mls @ 12.443 mls/hr 12/06/24 23:30 12/07/24 14:02 / Sodium Chloride IV 0.1 mcg/kg/min .[id number] BRIANA 41.476 mls/hr Administration Protocol 0.03 MCG/KG/MIN Sodium Chloride 1,000 mls @ 100 mls/hr 12/07/24 02:00 12/07/24 16:40 Saline 0.9% IV 100 mls/hr .Q10H BRIANA Administration Amiodarone HCl 450 mg/ 250 mls @ 16.667 mls/hr 12/07/24 04:45 12/07/24 04:56 Dextrose/Water IV 12/07/24 22:44 0.5 mg/min .Q15H BRIANA 16.667 mls/hr Administration Protocol 0.5 MG/MIN Heparin Sodium/Sodium Chloride 250 mls @ 10 mls/hr 12/07/24 09:00 12/07/24 17:48 25,000 unit/ Sodium Chloride IV 6.889 units/kg/hr .Q24H BRIANA 7.75 mls/hr Titration Protocol 8.889 UNITS/KG/HR Insulin Aspart 0 unit 12/07/24 12:00 12/07/24 18:31 Insulin Aspart (Novolog) 100 Unit/Ml Vial SQ 2 unit Q6HR BRIANA Administration Protocol Loratadine 10 mg 12/06/24 21:00 12/06/24 22:48 Loratadine 10 Mg Tab PO Not Given HS BRIANA Losartan Potassium 25 mg 12/07/24 09:00 12/07/24 10:00 Losartan 25 Mg Tab PO Not Given DAILY BRIANA Magnesium Hydroxide 2,400 mg 12/06/24 15:49 Magnesium Hydroxide 2,400 Mg/30 Ml Cup PO Q24H PRN No BM x 3 days Methylprednisolone Sodium Succinate 60 mg 12/07/24 00:00 12/07/24 18:32 Methylprednisolone Sod Succi 125 Mg/2 Ml Vial IV 60 mg Q6HR BRIANA Administration Metoprolol Tartrate 150 mg 12/06/24 21:00 12/07/24 10:00 Metoprolol Tartrate 50 Mg Tab PO Not Given BID BRIANA Naloxone HCl 0.2 mg 12/06/24 15:45 Naloxone 0.4 Mg/Ml 1 Ml Vial IV Q2M PRN Opioid Reversal Ondansetron HCl 4 mg 12/06/24 15:49 Ondansetron 4 Mg Tab PO Q6HR PRN Nausea Oseltamivir Phosphate 30 mg 12/06/24 16:00 12/07/24 10:01 Oseltamivir 30 Mg Cap PO 12/11/24 09:01 30 mg Q12HR BRIANA Administration Protocol Pantoprazole Sodium 40 mg 12/08/24 09:00 Pantoprazole 40 Mg/10 Ml Vial IVP DAILY ON LICENSE OF [facility] Polyethylene Glycol 17 gm 12/06/24 15:49 Polyethylene Glycol 3350 17 Gm Powd.Pack PO Q24H PRN Constipation Potassium Chloride 20 meq 12/07/24 09:00 12/07/24 10:00 Potassium Chloride Er 20 Meq Tab.Er PO Not Given DAILY BRIANA Senna 17.2 mg 12/06/24 15:49 Sennosides 8.6 Mg Tab PO DAILY PRN Constipation Spironolactone 25 mg 12/07/24 09:00 12/07/24 10:01 Spironolactone 25 Mg Tab PO 25 mg DAILY BRIANA Administration Tamsulosin HCl 0.4 mg 12/06/24 21:00 12/06/24 22:48 Tamsulosin 0.4 Mg Cap.Er.24h PO Not Given HS BRIANA Venlafaxine HCl 37.5 mg 12/06/24 21:00 12/06/24 22:48 Venlafaxine Hcl Er 37.5 Mg Cap PO Not Given HS BRIANA Intake and Output 01/18/25 01/18/25 01/18/25 06:59 14:59 22:59 Intake Total 786.635 5176.977 824.833 Output Total 400 315 210 Balance 577.392 803.977 614.833 Intake: IV 700 500 Sodium Chloride 0.9% 1, 700 500 000 ml @ 100 mls/hr IV . Q10H BRIANA Rx#:[id number] Intake, IV Titration 977.392 378.977 174.833 Amount Amiodarone 450 mg In 50.01 16.67 Dextrose 5% in Water 250 ml @ 0.5 MG/MIN 16.667 mls/hr IV .Q15H BRIANA Rx#: [id number] Heparin Sod,Pork in 0.45% 74.833 NaCl 25,000 unit In 0.45 % NaCl 1 250ml.bag @ 8. 889 UNITS/KG/HR 10 mls/hr IV .Q24H BRIANA Rx#: [id number] Norepinephrine 4 mg In 191.693 62.307 Sodium Chloride 0.9% 250 ml @ 0.03 MCG/KG/MIN 12. 443 mls/hr IV .[id number] BRIANA Rx#:[id number] Sodium Chloride 0.9% 1, 500 100 000 ml @ 100 mls/hr IV . Q10H BRIANA Rx#:[id number] propofoL 1,000 mg In 235.689 200 100 Empty Bag 1 bag @ 15 MCG/ KG/MIN 9.798 mls/hr IV . [id number] BRIANA Rx#:[id number] Tube Feeding 40 120 Other 30 Output: Urine 400 315 210 Other: Voiding Method Indwelling Catheter Indwelling Catheter Indwelling Catheter Weight 112.5 kg 112.5 kg Patient Weight 12/08/24 06:59 Weight 112.5 kg 12/07/24 09:37 12/07/24 03:19
[2024-12-07 23:38] LABS: Glucose,Whole Blood 151 mg/dL (70-110)
[2024-12-08 04:27] LABS: Glucose,Whole Blood 145 mg/dL (70-110)
[2024-12-08 04:52] LABS: Basophils % (A) 0 %; Eosinophils # (A) 0.1 k/uL (0-0.7); Eosinophils % (A) 0 %; HCT 39.1 % (39.0-53.0); Hypochromasia Marked; Lymphocytes # (A) 0.3 k/uL (1.0-4.8); Lymphocytes % (A) 1 %; MCH 28.3 pg (25.0-35.0); MCHC 30.8 g/dL (31.0-37.0); MCV 92.1 fL (80.0-100.0); Mean Platelet Volume 7.9; Monocytes # (A) 0.8 k/uL (0-1.0); Monocytes % (A) 2 %; Neutrophils % (A) 96 %; Platelet Count 178 k/uL (150-450); RBC 4.25 m/uL (4.30-5.90); RDW 15.4 % (11.5-15.5); WBC 36.6 k/uL (3.8-10.6)
[2024-12-08 05:13] LABS: African American GFR (CKD) 37 (>60 ml/min/1.73 sqM); Anion Gap 10 mmol/L; Blood Urea Nitrogen 38 mg/dL (9-20); Calcium 7.7 mg/dL (8.4-10.2); Carbon Dioxide 19 mmol/L (22-30); Chloride 105 mmol/L (98-107); Glucose 157 mg/dL (74-99); Non-African American GFR(CKD) 32 (>60 ml/min/1.73 sqM); Potassium 4.9 mmol/L (3.5-5.1); Sodium 134 mmol/L (137-145)
[2024-12-08 05:17] LABS: INR 1.1 (<1.2)
[2024-12-08 05:18] LABS: Prothrombin Time 12.4 sec (10.0-12.5)
[2024-12-08 05:20] LABS: Neutrophils # (A) 35.2 k/uL (1.3-7.7)
[2024-12-08 05:47] LABS: ABG Base Excess -5.9 mmol/L; ABG HCO3 22 mmol/L (21-25); ABG Oxygen Saturation 98.7 % (94-97); ABG PCO2 50 mmHg (35-45); ABG PH 7.25 (7.35-7.45); ABG PO2 125 mmHg (83-108); ABG TCO2 23 mmol/L (19-24)
--- NOTE | 2024-12-08 06:00 | XR ---
EXAM: XR Chest, 1 View CLINICAL HISTORY: OG tube placement TECHNIQUE: Frontal view of the chest. COMPARISON: 12/07/2024. FINDINGS: Endotracheal tube is 4.7 cm above [place]. Enteric tube tip is in left upper quadrant below the inferior aspect of the image. Heart is enlarged. Mild pulmonary vascular congestion. No definite pleural effusion or pneumothorax. Bones are unchanged. IMPRESSION: Orogastric tube tip in the left upper quadrant below the inferior aspect of the image. Endotracheal tube tip 4.7 cm above [place]. Otherwise no change.
[2024-12-08 06:10] LABS: Allen Test Performed? No
[2024-12-08] MEDS ORDERED: VANCOMYCIN IV PER PHARMACY 1 EACH MISC MISCELLANE PRN (07:41)
[2024-12-08] MEDS: PANTOPRAZOLE 40 MG/10 ML VIAL IVP SCH (08:24)
[2024-12-08] MEDS: AMIODARONE 450 MG in DEXTROSE 5% IN WATER 250 ML IV SCH (10:29)
--- NOTE | 2024-12-08 11:10 | P.PN ---
Subjective Progress Note Date: 12/08/24 Principal diagnosis: Acute hypoxic respiratory failure This is an 84-year-old white male familiar to my service, patient was recently seen in the hospital for MRSA bacteremia, workup for endocarditis and transesophageal echocardiogram was unremarkable and there was no evidence of vegetations. Patient was discharged to half-way on vancomycin and he had a PICC line in place. His transesophageal echo on his last admission showed ejection fraction of 45%, patient is also known to have history of paroxysmal atrial fibrillation as well as history of hereditary factor VIII deficiency. In addition to all of this the patient is known to have history of mild COPD, hiatal hernia, hypertension, and yesterday half-way was concerned about the patient having episodes of shortness of breath. Patient received diuretics, received bronchodilators, this was done upon arrival to the ER, patient developed worsening atrial fibrillation with RVR. I was notified about this pa tient from the ER, initially recommended amiodarone and amiodarone drip because of his atrial fibrillation with RVR, cardiology was consulted, his oxygenation while in the ER was getting worse in spite of diuretics his chest x-ray did not show any evidence of significant pulmonary edema, patient was intubated shortly after upon my recommendation, and arrangements made for the patient to transfer to the ICU late at night. In the meantime patient was noted to have leukocytosis, WBC count as high as 43.6, hemoglobin was 12.2. Basic metabolic profile was normal except for slightly low bicarb of 18 BUN 35 creatinine 1.28. Chest x-ray this morning showed normal pulmonary vasculature there was no clear- cut evidence of pneumonia or any pleural effusion, no evidence of congestive heart failure, patient did receive multiple fluid boluses yesterday for low blood pressure after intubation. Today the patient is on assist-control rate of 24 tidal volume 500 FiO2 90% and PEEP of 8 which I increased to 10 ABG remains marginal with a pO2 of 85 pCO2 44 pH of 7.31 patient has been on Xarelto for hi story of chronic atrial fibrillation presently I would recommend that we place the patient on heparin, patient is still receiving amiodarone at 0.5 mg/min he is also on norepinephrine at 0.06 mcg/kg/min propofol at 50 mcg/kg/min IV fluid 100 cc/h 0.9 normal saline. Went ahead and establish a right radial arterial line, patient does have a PICC line in place hence no need to change PICC line unless the patient comes back with positive blood cultures. In the meantime we are recommending cefepime and vancomycin. 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 Knowing this, possibility of pulmonary embolism is likely and I am recommending that we heparinized the patient for now, once his renal functioning improved may consider sending him down for a CT angiogram of the chest. Seen today on 12/08/2024, patient remains in the ICU, intubated mechanically ventilated, he is on assist-control rate of 24 tidal volume 500 FiO2 90% PEEP of 12 ABG showed a pO2 of 125 pCO2 50 pH of 7.25 hence tidal volume was increased to 550, FiO2 was cut down to 60%, kept the PEEP at 12. Chest x-ray is showing evidence of worsening interstitial edema. Patient is on diuretics Lasix 80 mg IV push twice daily. Patient is still requiring pressors he is on norepinephrine at 0.06 mcg/kg/min propofol at 30 mcg/kg/min IV fluid was 100 cc/h, however considering his chest x-ray I recommended we cut it down to KVO. Patient remains on amiodarone at 0.5 mg/min antibiotics schaefer he is on cefepime and vancomycin patient had recent MRSA bacteremia he is also on Tamiflu for acute influenza. For his DVT and possible pulmonary embolism patient remains on heparin as per protocol. Patient is sedated, still hemodynamically unstable requiring norepinephrine, patient is receiving GI DVT prophylaxis is also on enteral feeding for nutritional support. Blood cultures are still pending no plans to address weaning today since the patient is still requiring relatively high FiO2 and high PEEP. Renal functioning seems to be a bit worse, being addressed by nephrology on the case. Patient may have developed acute kidney injury, likely cardiorenal in nature. And could be related to his low blood pressure on presentation /acute tubular necrosis. Objective - Vital Signs Vital signs: Vital Signs Temp 97.8 F 12/08/24 08:00 Pulse 100 12/08/24 10:30 Resp 24 12/08/24 03:15 BP 116/85 12/08/24 10:30 Pulse Ox 92 L 12/08/24 10:30 FiO2 60 12/08/24 10:00 Intake & Output 12/07/24 12/08/24 12/08/24 18:59 06:59 18:59 Intake Total 8699.291 1195.887 632.821 Output Total 490 740 290 Balance 0542.204 1520.887 342.821 Weight 112.5 kg 116.7 kg Intake: IV 1100 1200 300 Sodium Chloride 0.9% 1, 1100 1200 300 000 ml @ 100 mls/hr IV . Q10H [facility] Rx#:[id number] Intake, IV Titration 875.672 5866.887 182.821 Amount Amiodarone 450 mg In 16.67 250 Dextrose 5% in Water 250 ml @ 0.5 MG/MIN 16.667 mls/hr IV .Q15H [facility] Rx#: [id number] Cefepime 2 gm In Sodium 100 Chloride 0.9% 100 ml @ 25 mls/hr IVPB Q12H [facility] Rx# :[id number] Heparin Sod,Pork in 0.45% 74.833 NaCl 25,000 unit In 0.45 % NaCl 1 250ml.bag @ 8. 889 UNITS/KG/HR 10 mls/hr IV .Q24H [facility] Rx#: [id number] Norepinephrine 4 mg In 62.307 568.530 109.220 Sodium Chloride 0.9% 250 ml @ 0.03 MCG/KG/MIN 12. 443 mls/hr IV .[id number] [facility] Rx#:[id number] Sodium Chloride 0.9% 1, 100 000 ml @ 100 mls/hr IV . Q10H [facility] Rx#:[id number] Vancomycin 1,750 mg In 500 Sodium Chloride 0.9% 500 ml 500 ml @ 167 mls/hr IVPB Q24H [facility] Rx#: [id number] propofoL 1,000 mg In 300 289.357 73.601 Empty Bag 1 bag @ 15 MCG/ KG/MIN 9.798 mls/hr IV . [id number] [facility] Rx#:[id number] Tube Feeding 140 210 120 Other 30 60 30 Output: Urine 490 740 290 Other: Voiding Method Indwelling Catheter Indwelling Catheter Indwelling Catheter ABP, PAP, CO, CI - Last Documented Arterial Blood Pressure 107/66 - Exam General: Revealed an 84-year-old white male obese intubated mechanically venti lated, sedated HEENT: Atraumatic normocephalic, PERRLA, EOMI, anicteric, no neck masses no JVD NECK: Supple. No JVD. No lymphadenopathy. No thyromegaly. LUNGS: Diminished breath sounds at the bases minimal wheezing/scattered HEART: Irregular irregular rhythm, 2/6 systolic murmur over left lower sternal border ABDOMEN: Obese, soft. Bowel sounds are present. No masses. No tenderness. EXTREMITIES: +1 pedal edema. No tenderness, good pulses bilaterally. NEUROLOGICAL: Could not fully assess, patient is sedated on propofol. Psychiatric: Could not assess because of sedation - Labs CBC & Chem 7: 12/08/24 04:30 12/08/24 04:30 Labs: Abnormal Lab Results - Last 24 Hours (Table) 12/07/24 12/07/24 12/07/24 Range/Units 03:13 11:31 16:10 WBC (3.8-10.6) k/uL RBC (4.30-5.90) m/uL Hgb (13.0-17.5) gm/dL MCHC (31.0-37.0) g/dL Neutrophils # (1.3-7.7) k/uL Lymphocytes # (1.0-4.8) k/uL APTT 76.3 H (22.0-30.0) sec ABG pH (7.35-7.45) ABG pCO2 (35-45) mmHg ABG pO2 (83-108) mmHg ABG O2 Saturation (94-97) % Hemoglobin (13.0-17.5) gm/dL Sodium (137-145) mmol/L Carbon Dioxide (22-30) mmol/L BUN (9-20) mg/dL Creatinine (0.66-1.25) mg/dL Glucose (74-99) mg/dL POC Glucose (mg/dL) 208 H (70-110) mg/dL Hemoglobin A1c 6.3 H (<=6.0) % Calcium (8.4-10.2) mg/dL 12/07/24 12/07/24 12/07/24 Range/Units 17:45 23:35 23:37 WBC (3.8-10.6) k/uL RBC (4.30-5.90) m/uL Hgb (13.0-17.5) gm/dL MCHC (31.0-37.0) g/dL Neutrophils # (1.3-7.7) k/uL Lymphocytes # (1.0-4.8) k/uL APTT 43.3 H (22.0-30.0) sec ABG pH (7.35-7.45) ABG pCO2 (35-45) mmHg ABG pO2 (83-108) mmHg ABG O2 Saturation (94-97) % Hemoglobin (13.0-17.5) gm/dL Sodium (137-145) mmol/L Carbon Dioxide (22-30) mmol/L BUN (9-20) mg/dL Creatinine (0.66-1.25) mg/dL Glucose (74-99) mg/dL POC Glucose (mg/dL) 188 H 151 H (70-110) mg/dL Hemoglobin A1c (<=6.0) % Calcium (8.4-10.2) mg/dL 12/08/24 12/08/24 12/08/24 Range/Units 04:26 04:30 04:30 WBC 36.6 H (3.8-10.6) k/uL RBC 4.25 L (4.30-5.90) m/uL Hgb 12.0 L (13.0-17.5) gm/dL MCHC 30.8 L (31.0-37.0) g/dL Neutrophils # 35.2 H (1.3-7.7) k/uL Lymphocytes # 0.3 L (1.0-4.8) k/uL APTT (22.0-30.0) sec ABG pH (7.35-7.45) ABG pCO2 (35-45) mmHg ABG pO2 (83-108) mmHg ABG O2 Saturation (94-97) % Hemoglobin (13.0-17.5) gm/dL Sodium 134 L (137-145) mmol/L Carbon Dioxide 19 L (22-30) mmol/L BUN 38 H (9-20) mg/dL Creatinine 1.89 H (0.66-1.25) mg/dL Glucose 157 H (74-99) mg/dL POC Glucose (mg/dL) 145 H (70-110) mg/dL Hemoglobin A1c (<=6.0) % Calcium 7.7 L (8.4-10.2) mg/dL 12/08/24 Range/Units 05:45 WBC (3.8-10.6) k/uL RBC (4.30-5.90) m/uL Hgb (13.0-17.5) gm/dL MCHC (31.0-37.0) g/dL Neutrophils # (1.3-7.7) k/uL Lymphocytes # (1.0-4.8) k/uL APTT (22.0-30.0) sec ABG pH 7.25 L (7.35-7.45) ABG pCO2 50 H (35-45) mmHg ABG pO2 125 H (83-108) mmHg ABG O2 Saturation 98.7 H (94-97) % Hemoglobin 12.3 L (13.0-17.5) gm/dL Sodium (137-145) mmol/L Carbon Dioxide (22-30) mmol/L BUN (9-20) mg/dL Creatinine (0.66-1.25) mg/dL Glucose (74-99) mg/dL POC Glucose (mg/dL) (70-110) mg/dL Hemoglobin A1c (<=6.0) % Calcium (8.4-10.2) mg/dL Microbiology - Last 24 Hours (Table) 12/06/24 20:40 Gram Stain - Preliminary Sputum Assessment and Plan Assessment: Impression: Acute hypoxic respiratory failure, multifactorial persistent sepsis, and septic shock from MRSA bacteremia, this was recently diagnosed, treated with vancomycin, patient was discharged on vancomycin few days ago. Previous workup for endocarditis was negative. Moderate LV dysfunction, today's chest x-ray is showing evidence of interstitial edema hence we will continue Lasix and cut down IV fluid to KVO patient received fluid boluses initially for his presentation of hypotension. Acute kidney injury secondary to hypotension, and could also be cardiorenal patient developed acute tubular necrosis, being addressed by nephrology on the case. 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 Benign essential hypertension Acute influenza A infection, on Tamiflu Recent history of MRSA bacteremia unknown primary site of infection History of right total hip arthroplasty Recommendation: Continue ventilatory support, no plans to wean the patient today as he is still requiring relatively high FiO2 and high PEEP Continue sedation/propofol Continue hemodynamic support/norepinephrine Continue antibiotics empirically for now check blood cultures/pending Continue heparin as per protocol for DVT and possible pulmonary embolism Close monitoring of I's and O's GI and DVT prophylaxis Nutritional support/enteral feeding patient is receiving vital AF 30/45 Continue bronchodilators and methylprednisolone Continue amiodarone Continue Lipitor Restart Lasix 80 mg IV push twice daily Nephrology to address his acute kidney injury Patient is critically ill Critical care time is over 30 minutes Will continue to follow Time with Patient: Greater than 30
[2024-12-08 11:44] LABS: Glucose,Whole Blood 195 mg/dL (70-110)
--- NOTE | 2024-12-08 12:17 | P.NPCON ---
History of Present Illness - Reason for Consult acute renal failure - History of Present Illness Reason for consultation: Acute kidney injury History of present illness: Patient is 84-year-old male seen in renal consultation for acute kidney injury. Creatinine 1.06 on admission and is up to 1.89 today. Patient came to the hospital with shortness of breath. Patient had right hip surgery done early Oct. He subsequently went to rehab and then developed pneumonia. Now he presents this time with shortness of breath just 2 days after his prior discharge. Sputum cultures positive for Pseudomonas. He also tested positive for influenza A. Patient is currently intubated. He is receiving tube feeds. He is on Levophed. Also on IV Lasix 80 mg twice daily. Ejection fraction noted to be 40 to 45%. Family present at bedside. No history of diabetes or coronary artery disease. Patient did receive multiple fluid boluses yesterday for hypotension. He is also noted to be on losartan and spironolactone. Vital signs are stable. On vasopressor support. General: Resting in bed. HEENT: Head exam is unremarkable. Intubated. LUNGS: Scattered rhonchi. HEART: Rate and Rhythm are regular. ABDOMEN: Obese, no distention. EXTREMITITES: 1+ edema. Past Medical History Past Medical History: Atrial Fibrillation, Asthma, Cancer, Diabetes Mellitus, Deep Vein Thrombosis (DVT), GERD/Reflux, Hearing Disorder / Deafness, Hyperlipidemia, Hypertension, Osteoarthritis (OA), Pneumonia, Prostate Disorder Additional Past Medical History / Comment(s): Hx pneumonia yrs ago, RSV/ hospitalized x 2 weeks in ICU, dvt R calf, hiatal hernia, hx kidney stones, [place] use of bilateral hearing aids. skin ca; "pre diabetic". History of Any Multi-Drug Resistant Organisms: MRSA Date of last positivie culture/infection: 11/25/24 MDRO Source:: blood Past Surgical History: Joint Replacement, Orthopedic Surgery Additional Past Surgical History / Comment(s): Bilateral knee replacements., total L hip arthroplasty, LIS and cardioversions, elbow surg, cystoscopy & right ureter stent Aug 2024, stent removed Sep 2024. Right TAD. Past Anesthesia/Blood Transfusion Reactions: No Reported Reaction Past Psychological History: Depression Additional Psychological History / Comment(s): Pt resides alone. Spouse 04/2023 Smoking Status: Never smoker Past Alcohol Use History: Rare Additional Past Alcohol Use History / Comment(s): Quit smoking 50 yrs ago. Past Drug Use History: None Reported - Past Family History Mother Family Medical History: No Reported History Father Additional Family Medical History / Comment(s): open heart Medications and Allergies Home Medications Medication Instructions Recorded Confirmed Type Tamsulosin HCl [Flomax] 0.4 mg PO HS 05/29/18 12/06/24 History Albuterol Sulfate [Albuterol 1 puff INHALATION RT-Q4H PRN 10/07/21 12/06/24 History Sulfate Hfa] Fluticasone Nasal [place] [Flonase 1 spr EA NOSTRIL Q12H PRN 06/02/22 12/06/24 History Nasal [place]] Fluticasone/Umeclidin/Vilanter 1 puff INHALATION RT-DAILY 09/07/23 12/06/24 History [Trelegy Ellipta 200-62.5-25] Atorvastatin [Lipitor] 40 mg PO HS 10/16/23 12/06/24 History Ezetimibe [Zetia] 10 mg PO HS 10/16/23 12/06/24 History Levocetirizine Dihydrochloride 5 mg PO HS 10/16/23 12/06/24 History [Xyzal] Dapagliflozin Propanediol [Farxiga] 10 mg PO DAILY #30 tab 03/27/24 12/06/24 Rx Budesonide/Formoterol Fumarate 1 puff INHALATION RT-BID@0800,1600 09/13/24 12/06/24 History [Breyna 160-4.5 Mcg Inhaler] Cholecalciferol (Vitamin D3) 50 mcg PO DAILY 10/21/24 12/06/24 History [Vitamin D3 (50 Mcg = 2000 Iu)] Ondansetron [Zofran] 4 mg PO Q6HR PRN #30 tab 10/25/24 12/06/24 Rx guaiFENesin SYRUP 100MG/5ML 200 mg PO Q6HR PRN ml 10/30/24 12/06/24 Rx [Robitussin] Acetaminophen [Tylenol 8 Hour] 650 mg PO Q6H PRN 11/25/24 12/06/24 History Benzonatate [Tessalon Perles] 100 mg PO TID 11/25/24 12/06/24 History Docusate [Colace] 100 mg PO BID@0800,1600 11/25/24 12/06/24 History Furosemide [Lasix] 40 mg PO BID 11/25/24 12/06/24 History Ipratropium-Albuterol Nebulize 3 ml INHALATION RT-Q6H 11/25/24 12/06/24 History [Duoneb 0.5 mg-3 mg/3 ml Soln] Naloxone HCl [Narcan] 4 mg NASAL ONCE PRN 11/25/24 12/06/24 History Potassium Chloride [Klor-Con M20] 20 meq PO DAILY 11/25/24 12/06/24 History Rivaroxaban [Xarelto] 20 mg PO DAILY 11/25/24 12/06/24 History Sennosides [Senokot] 17.2 mg PO DAILY PRN 11/25/24 12/06/24 History polyethylene glycoL 3350 [Miralax] 17 gm PO Q24H PRN 11/25/24 12/06/24 History HYDROcodone/APAP 5-325MG [[place] 1 tab PO Q6HR PRN #12 tab 12/04/24 12/06/24 Rx 5-325] Losartan [Cozaar] 25 mg PO DAILY tab 12/04/24 12/06/24 Rx Metoprolol Tartrate [Lopressor] 150 mg PO BID tab 12/04/24 12/06/24 Rx Spironolactone [Aldactone] 25 mg PO DAILY tab 12/04/24 12/06/24 Rx Vancomycin 1,750 mg IVPB Q16H 10 Days each 12/04/24 12/06/24 Rx Ammonium Lactate Cream [Lac-Hydrin 1 applic TOPICAL Q12H PRN 12/06/24 12/06/24 H istory 12% Cream] Magnesium Hydroxide [Milk of 2,400 mg PO Q24H PRN 12/06/24 12/06/24 History Magnesia] Omeprazole 20 mg PO HS 12/06/24 12/06/24 History Venlafaxine HCl ER [Effexor Xr] 37.5 mg PO HS 12/06/24 12/06/24 History predniSONE See Taper PO DAILY 12/06/24 12/06/24 History Allergies Allergy/AdvReac Type Severity Reaction Status Date / Time rosuvastatin [From Crestor] AdvReac muscle Verified 12/06/24 14:08 soreness/cramps Physical Exam Vitals: Vital Signs Temp Pulse Resp BP Pulse Ox FiO2 12/08/24 11:26 100 12/08/24 11:14 100 12/08/24 11:09 60 12/08/24 11:00 93 116/85 12/08/24 10:45 86 116/85 92 L 12/08/24 10:30 100 116/85 92 L 12/08/24 10:15 101 H 116/85 92 L 12/08/24 10:00 99 119/88 92 L 60 12/08/24 09:45 101 H 119/88 91 L 12/08/24 09:30 105 H 119/88 92 L 12/08/24 09:15 98 119/88 93 L 80 12/08/24 09:00 98 110/74 96 12/08/24 08:45 89 110/74 98 12/08/24 08:30 90 110/74 97 12/08/24 08:15 95 110/74 97 12/08/24 08:11 92 12/08/24 08:00 97.8 F 86 104/70 97 90 12/08/24 07:56 92 12/08/24 07:48 80 12/08/24 07:45 89 104/70 98 12/08/24 07:30 101 H 104/70 99 12/08/24 07:15 89 104/70 99 12/08/24 07:00 93 98 12/08/24 06:45 101 H 98 12/08/24 06:30 100 98 12/08/24 06:15 93 98 12/08/24 06:00 86 99 12/08/24 05:45 85 98 12/08/24 05:30 89 98 12/08/24 05:15 84 97 12/08/24 05:00 90 111/67 96 12/08/24 04:45 85 111/67 95 12/08/24 04:39 95 12/08/24 04:30 79 111/67 96 12/08/24 04:28 92 12/08/24 04:25 90 12/08/24 04:15 92 111/67 93 L 12/08/24 04:00 97.7 F 80 91/74 93 L 90 12/08/24 03:45 90 95/68 94 L 12/08/24 03:30 95 93/65 95 12/08/24 03:15 89 24 95 12/08/24 03:00 86 97 12/08/24 02:45 89 98 12/08/24 02:30 117 H 98 12/08/24 02:15 123 H 49 H 98 12/08/24 02:00 124 H 24 98 12/08/24 01:45 124 H 24 98 12/08/24 01:30 117 H 24 98 12/08/24 01:15 109 H 24 98 12/08/24 01:00 123 H 97 12/08/24 00:45 124 H 98 12/08/24 00:30 124 H 24 98 12/08/24 00:15 123 H 98 12/08/24 00:08 113 H 98 12/08/24 00:00 123 H 36 H 98 90 12/07/24 23:45 125 H 37 H 98 12/07/24 23:42 114 H 12/07/24 23:32 115 H 90 12/07/24 23:30 118 H 98 12/07/24 23:15 120 H 25 H 98 12/07/24 23:00 118 H 97 12/07/24 22:45 124 H 24 97 12/07/24 22:30 131 H 97 12/07/24 22:15 121 H 24 97 12/07/24 22:00 125 H 20 98 12/07/24 21:45 107 H 58 H 97 12/07/24 21:30 117 H 24 98 12/07/24 21:15 106 H 24 97 12/07/24 21:00 130 H 24 98 12/07/24 20:45 117 H 24 98 12/07/24 20:30 125 H 24 98 12/07/24 20:15 121 H 21 98 12/07/24 20:00 98.2 F 124 H 24 97 90 12/07/24 19:54 112 H 12/07/24 19:45 120 H 24 96 12/07/24 19:40 111 H 12/07/24 19:37 90 12/07/24 19:30 129 H 23 97 12/07/24 19:15 118 H 97 12/07/24 19:00 118 H 30 H 97 12/07/24 18:45 111 H 27 H 95 12/07/24 18:30 124 H 24 96 12/07/24 18:15 117 H 24 96 12/07/24 18:00 115 H 24 96 12/07/24 17:45 121 H 23 94 L 12/07/24 17:30 112 H 33 H 95 12/07/24 17:15 122 H 24 95 12/07/24 17:00 116 H 24 95 12/07/24 16:45 104 H 24 93 L 12/07/24 16:30 118 H 24 94 L 12/07/24 16:15 111 H 24 94 L 12/07/24 16:00 94.3 F L 108 H 24 95 90 12/07/24 15:45 109 H 24 94 L 12/07/24 15:30 116 H 24 94 L 12/07/24 15:18 104 H 12/07/24 15:15 103 H 24 95 12/07/24 15:06 110 H 90 12/07/24 15:00 112 H 24 94 L 12/07/24 14:45 110 H 24 94 L 12/07/24 14:30 116 H 24 92 L 12/07/24 14:15 112 H 24 94 L 12/07/24 14:00 120 H 24 93 L 12/07/24 13:45 112 H 24 93 L 12/07/24 13:30 115 H 24 94 L 12/07/24 13:15 110 H 24 94 L 12/07/24 13:00 122 H 21 93 L 12/07/24 12:45 125 H 20 94 L 12/07/24 12:30 115 H 20 94 L 12/07/24 12:15 120 H 10 L 94 L Intake and Output 12/07/24 12/08/24 12/08/24 22:59 06:59 14:59 Intake Total 2440.147 7101.620 662.821 Output Total 375 540 390 Balance 0909.231 9770.620 272.821 Intake: IV 800 800 300 Sodium Chloride 0.9% 1, 800 800 300 000 ml @ 100 mls/hr IV . Q10H [facility] Rx#:[id number] Intake, IV Titration 907.839 8930.620 182.821 Amount Amiodarone 450 mg In 250 Dextrose 5% in Water 250 ml @ 0.5 MG/MIN 16.667 mls/hr IV .Q15H [facility] Rx#: [id number] Cefepime 2 gm In Sodium 100 Chloride 0.9% 100 ml @ 25 mls/hr IVPB Q12H [facility] Rx# :[id number] Heparin Sod,Pork in 0.45% 74.833 NaCl 25,000 unit In 0.45 % NaCl 1 250ml.bag @ 8. 889 UNITS/KG/HR 10 mls/hr IV .Q24H [facility] Rx#: [id number] Norepinephrine 4 mg In 283.379 285.151 109.220 Sodium Chloride 0.9% 250 ml @ 0.03 MCG/KG/MIN 12. 443 mls/hr IV .[id number] [facility] Rx#:[id number] Vancomycin 1,750 mg In 500 Sodium Chloride 0.9% 500 ml 500 ml @ 167 mls/hr IVPB Q24H [facility] Rx#: [id number] propofoL 1,000 mg In 196.888 192.469 73.601 Empty Bag 1 bag @ 15 MCG/ KG/MIN 9.798 mls/hr IV . [id number] [facility] Rx#:[id number] Tube Feeding 190 120 150 Other 60 30 30 Output: Urine 375 540 390 Other: Voiding Method Indwelling Catheter Indwelling Catheter Indwelling Catheter Weight 116.7 kg ABP, PAP, CO, CI - Last 8 Hours Arterial Blood Pressure 110/65 Arterial Blood Pressure 106/64 Arterial Blood Pressure 107/66 Arterial Blood Pressure 107/67 Arterial Blood Pressure 106/67 Arterial Blood Pressure 109/65 Arterial Blood Pressure 112/67 Arterial Blood Pressure 92/55 Arterial Blood Pressure 113/61 Arterial Blood Pressure 116/64 Arterial Blood Pressure 105/61 Arterial Blood Pressure 103/60 Arterial Blood Pressure 101/59 Arterial Blood Pressure 97/60 Arterial Blood Pressure 102/57 Arterial Blood Pressure 99/58 Arterial Blood Pressure 98/56 Arterial Blood Pressure 96/57 Arterial Blood Pressure 99/59 Arterial Blood Pressure 100/60 Arterial Blood Pressure 107/60 Arterial Blood Pressure 106/65 Arterial Blood Pressure 108/66 Arterial Blood Pressure 99/64 Arterial Blood Pressure 100/60 Arterial Blood Pressure 97/60 Arterial Blood Pressure 91/59 Results - Lab Results Most recent lab results ABG pH 7.25 (7.35-7.45) L 12/08/24 05:45 ABG pCO2 50 mmHg (35-45) H 12/08/24 05:45 ABG pO2 125 mmHg (83-108) H 12/08/24 05:45 ABG HCO3 22 mmol/L (21-25) 12/08/24 05:45 ABG O2 Saturation 98.7 % (94-97) H 12/08/24 05:45 Calcium 7.7 mg/dL (8.4-10.2) L 12/08/24 04:30 Magnesium 1.8 mg/dL (1.6-2.3) 12/07/24 03:19 12/08/24 04:30 12/08/24 04:30 Assessment and Plan Plan: Assessment: 1. Acute kidney injury secondary to ATN secondary to septic shock. Baseline creatinine near 1 and is 1.89 today. Nonoliguric. 2. Acute hypoxic respiratory failure secondary to pneumonia. 3. Septic shock. Patient with influenza A pneumonia and sputum culture positive for Pseudomonas. 4. Metabolic acidosis secondary to acute kidney injury. 5. A-fib with RVR maintained on amiodarone drip. 6. Cardiomyopathy with ejection fraction of 40 to 45%. 7. Fluid overload. Plan: Maintain tube feeds. Maintain IV Lasix. 2 amp sodium bicarb IV push today. Stop Cozaar. Stop Aldactone. Stop Farxiga. Wean FiO2 and vasopressors. Stop potassium supplementation. Check renal ultrasound. Avoid nephrotoxins. Continue to monitor renal function and urine output. Continue to assess daily for need for renal replacement therapy. Thank you for the consultation. I will continue to follow the patient with you during his hospital stay.
[2024-12-08] MEDS: SODIUM BICARB 8.4% 50 ML SYR (1 MEQ/ML) IV STA (12:26)
[2024-12-08] MEDS: SODIUM CHLORIDE 0.9% 1,000 ML IV SCH (12:31)
--- NOTE | 2024-12-08 13:08 | P.PN ---
Subjective Progress Note Date: 12/08/24 HISTORY OF PRESENT ILLNESS This is a 84-year-old male with past medical history of hypertension, paroxysmal atrial fibrillation on Xarelto, benign prostatic hypertrophy, hiatal hernia, hereditary factor VIII deficiency, hyperlipidemia, mild intermittent asthma, mild COPD, patient was recently admitted to [facility] after he underwent right total hip arthroplasty that was done by Dr. Thakkar and he has been at [facility] for physical therapy rehabilitation, patient was recently hospitalized at [facility] from November 25 of December 04 after he was admitted for what appears to be right lower lobe pneumonia appears to be MRSA pneumonia, initially was started on vancomycin as well as cefepime was seen in consultation by pulm medicine as well as cardiology, he had a significant MRSA bacteremia, that responded very well to vancomycin, patient ended up going for transesophageal echocardiogram that did not show evidence of any vegetation, it did show evidence of 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%, patient was sent to [facility] December 04, 2024 while he was there he was requiring about 5 L nasal cannula of oxygen, I received a phone call from the nursing staff stating that the patient is in acute respiratory distress today, he was given 60 mg IM of Lasix as well as 80 mg IM of Solu-Medrol with nebulizer treatment along with Pulmicort and DuoNeb, without any relief, he was placed on nonrebreather, and patient was sent to the ER for evaluation, he was found to have a significant leukocytosis with a white count of 36,000, his swab came back positive for influenza A, and chest x-ray showed evidence of cardiomegaly as well as basilar pneumonia patient was started back on his vancomycin as well as cefepime he was started on Tamiflu, he was started on Lasix 80 mg IV push every 12 hours, along with Solu-Medrol 60 mg IV push every 6 hours, DuoNeb nebulization 4 times every day Pulmicort 1 mg nebulization twice every day he is currently on BiPAP, pulmonary consultation as well as cardiology consultation. Sputum culture will be obtained as well as blood cultures. 12/07: While the patient yesterday in the emergency department he went into severe respiratory distress while he was on the BiPAP, he did receive 1 dose of Lasix 80 mg IV push, along with Solu-Medrol 60 mg IV push along with nebulized treatment in the form of DuoNeb as well as Pulmicort, without relief, at that time the decision was made for the patient to be intubated and transferred to the intensive care unit from the emergency department, patient is currently sedated on the ventilator, he is currently on amiodarone drip, as well as propofol drip, he is on 90% FiO2, with a PEEP of 5, pulmonary/critical care is following the patient very closely, cardiology is following as well, patient was started on IV antibiotic in the form of vancomycin as well as cefepime, he was started on Tamiflu as well due to influenza A, his white count initially was elevated at 43,000 down to 38,000, patient appears quite sick at this point in time, his prognosis continue be guarded, will continue with aggressive treatment plan for now, we will follow-up with the patient very closely. 12/08: Patient is laying down in bed he continues to be on the ventilator, currently FiO2 of 60%, PEEP of 12, tidal volume of 550, he continues to have a significant edema both upper and lower extremities, he is not getting any more IV fluid, will wean down his Levophed drip, continue IV antibiotic in the form of vancomycin as well as cefepime, sputum cultures growing Pseudomonas aeruginosa, currently on cefepime as well as vancomycin with pharmacy to dose to be controlled, continue also with Tamiflu for influenza A, patient was seen earlier by nephrology for acute kidney injury due to acute tubular necrosis and vasomotor nephropathy due to septic shock, continue current Lasix 80 mg IV push every 12 hours, monitor the patient input and output and daily weight, ultr asound of the kidney was obtained. REVIEW OF SYSTEMS Patient is sedated on the ventilator. PHYSICAL EXAMINATION Gen: This is an obese 84-year-old is sedated on the ventilator HEENT: Head is atraumatic, normocephalic. Pupils equal, round. Sclerae is anicteric, there is an NG tube in place, and ET tube placed NECK: Supple. No JVD. No lymphadenopathy. No thyromegaly. LUNGS: decreased breath sound at bases, few rhonchi, minimal expiratory wheezes, no chest wall tenderness, no intercostal retractions. HEART: First heart sound is depressed, second heart sound is normal, 2/6 systolic ejection murmur at the left sternal border, irregular irregular due to atrial fibrillation. ABDOMEN: Soft. Bowel sounds are present. No masses. No tenderness. EXTREMITIES: +2 pedal edema. No calf tenderness. Pain in the left hip. Dorsalis pedis palpable bilaterally. NEUROLOGICAL: Patient is currently sedated on the ventilator. ASSESSMENT AND PLAN: 1. Acute vent dependent hypoxemic respiratory failure due to acute systolic heart failure as well as acute left lower lobe Pseudomonas pneumonia and influenza A. Continue Solu-Medrol 60 mg IV push every 6 hours, continue DuoNeb 3 mL nebulization every 4 hours, continue Pulmicort 1 mg of Lasix twice every day, continue Lasix 80 mg IV push every 12 hours, continue vancomycin/cefepime/Tamiflu, pulmonary/cardiology/nephrology/ID consulted. 2. Pseudomonas pneumonia with septic shock . Try to wean Levophed off continue IV antibiotic in the form of cefepime/vancomycin/Tamiflu, continue oxygen support, try to wean FiO2 down, continue to monitor the patient very closely. Infectious disease consultation from Dr. Agosto. 3. Atrial fibrillation with rapid ventricular response. Continue amiodarone drip continue with Lasix 80 mg IV push every 12 hours, cardiology consultation appreciated. 4. 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 Continue Lasix 80 mg IV push every 12 hours, continue to monitor the patient very closely. Patient is currently on Levophed drip is currently not taking any antihypertensive medication including metoprolol. 5. Acute kidney injury due to acute tubular necrosis with vasomotor nephropathy due to septic shock. Continue treatment as in the previous paragraphs patient did receive 1 dose of sodium bicarbonate x 1. 6. Anion gap antibiotic acidosis due to acute kidney injury patient did receive IV sodium bicarbonate times 1 repeat CMP tomorrow morning. 7. COPD exacerbation. Continue Solu-Medrol 60 mg IV push every 6 hours, continue Pulmicort 1 mg nebulization twice every day, DuoNeb 3 manipulation 4 times every day, oxygen support, currently on the ventilator. 8. Mild intermittent asthma. Continue Singulair 10 mg at bedtime, loratadine 10 mg once every day, continue aggressive pulmonary toileting. 9. Benign prostatic hypertrophy. Continue Flomax 0.4 mg currently has a Henry catheter in place. 10. Hereditary factor VIII deficiency. Continue heparin drip for now. 11. Hyperlipidemia. Continue Zetia 10 mg daily and Atorvastatin 40 mg once a day. Monitor the patient lipid panel, keep LDL 55-70 12. Hypertension and hypertensive cardiovascular disease. patient is currently hypotensive, continue off blood pressure medication for now. 13. GI prophylaxis. Protonix 40 mg IV push daily. 14. DVT prophylaxis. Continue drip for now. 15. Major depressive disorder. Continue patient on Effexor XR 37.5 mg orally once every day. 16. Prognosis is guarded 17. Full code. 18. His son and his [id number] were at the bedside they were updated about his current condition. Objective - Vital Signs Vital signs: Vital Signs Temp 97.8 F 12/08/24 08:00 Pulse 100 12/08/24 10:30 Resp 24 12/08/24 03:15 BP 116/85 12/08/24 10:30 Pulse Ox 92 L 12/08/24 10:30 FiO2 60 12/08/24 10:00 Intake & Output 12/07/24 12/08/24 12/08/24 18:59 06:59 18:59 Intake Total 3777.804 5811.887 632.821 Output Total 490 740 290 Balance 0702.955 9841.887 342.821 Weight 112.5 kg 116.7 kg Intake: IV 1100 1200 300 Sodium Chloride 0.9% 1, 1100 1200 300 000 ml @ 100 mls/hr IV . Q10H BRIANA Rx#:[id number] Intake, IV Titration 176.931 1504.887 182.821 Amount Amiodarone 450 mg In 16.67 250 Dextrose 5% in Water 250 ml @ 0.5 MG/MIN 16.667 mls/hr IV .Q15H BRIANA Rx#: [id number] Cefepime 2 gm In Sodium 100 Chloride 0.9% 100 ml @ 25 mls/hr IVPB Q12H BRIANA Rx# :[id number] Heparin Sod,Pork in 0.45% 74.833 NaCl 25,000 unit In 0.45 % NaCl 1 250ml.bag @ 8. 889 UNITS/KG/HR 10 mls/hr IV .Q24H BRIANA Rx#: [id number] Norepinephrine 4 mg In 62.307 568.530 109.220 Sodium Chloride 0.9% 250 ml @ 0.03 MCG/KG/MIN 12. 443 mls/hr IV .[id number] BRIANA Rx#:[id number] Sodium Chloride 0.9% 1, 100 000 ml @ 100 mls/hr IV . Q10H BRIANA Rx#:[id number] Vancomycin 1,750 mg In 500 Sodium Chloride 0.9% 500 ml 500 ml @ 167 mls/hr IVPB Q24H BRIANA Rx#: [id number] propofoL 1,000 mg In 300 289.357 73.601 Empty Bag 1 bag @ 15 MCG/ KG/MIN 9.798 mls/hr IV . [id number] BRIANA Rx#:[id number] Tube Feeding 140 210 120 Other 30 60 30 Output: Urine 490 740 290 Other: Voiding Method Indwelling Catheter Indwelling Catheter Indwelling Catheter ABP, PAP, CO, CI - Last Documented Arterial Blood Pressure 107/66 - Labs CBC & Chem 7: 12/08/24 04:30 12/08/24 04:30 Labs: Abnormal Lab Results - Last 24 Hours (Table) 12/07/24 12/07/24 12/07/24 Range/Units 03:13 11:31 16:10 WBC (3.8-10.6) k/uL RBC (4.30-5.90) m/uL Hgb (13.0-17.5) gm/dL MCHC (31.0-37.0) g/dL Neutrophils # (1.3-7.7) k/uL Lymphocytes # (1.0-4.8) k/uL APTT 76.3 H (22.0-30.0) sec ABG pH (7.35-7.45) ABG pCO2 (35-45) mmHg ABG pO2 (83-108) mmHg ABG O2 Saturation (94-97) % Hemoglobin (13.0-17.5) gm/dL Sodium (137-145) mmol/L Carbon Dioxide (22-30) mmol/L BUN (9-20) mg/dL Creatinine (0.66-1.25) mg/dL Glucose (74-99) mg/dL POC Glucose (mg/dL) 208 H (70-110) mg/dL Hemoglobin A1c 6.3 H (<=6.0) % Calcium (8.4-10.2) mg/dL 12/07/24 12/07/24 12/07/24 Range/Units 17:45 23:35 23:37 WBC (3.8-10.6) k/uL RBC (4.30-5.90) m/uL Hgb (13.0-17.5) gm/dL MCHC (31.0-37.0) g/dL Neutrophils # (1.3-7.7) k/uL Lymphocytes # (1.0-4.8) k/uL APTT 43.3 H (22.0-30.0) sec ABG pH (7.35-7.45) ABG pCO2 (35-45) mmHg ABG pO2 (83-108) mmHg ABG O2 Saturation (94-97) % Hemoglobin (13.0-17.5) gm/dL Sodium (137-145) mmol/L Carbon Dioxide (22-30) mmol/L BUN (9-20) mg/dL Creatinine (0.66-1.25) mg/dL Glucose (74-99) mg/dL POC Glucose (mg/dL) 188 H 151 H (70-110) mg/dL Hemoglobin A1c (<=6.0) % Calcium (8.4-10.2) mg/dL 12/08/24 12/08/24 12/08/24 Range/Units 04:26 04:30 04:30 WBC 36.6 H (3.8-10.6) k/uL RBC 4.25 L (4.30-5.90) m/uL Hgb 12.0 L (13.0-17.5) gm/dL MCHC 30.8 L (31.0-37.0) g/dL Neutrophils # 35.2 H (1.3-7.7) k/uL Lymphocytes # 0.3 L (1.0-4.8) k/uL APTT (22.0-30.0) sec ABG pH (7.35-7.45) ABG pCO2 (35-45) mmHg ABG pO2 (83-108) mmHg ABG O2 Saturation (94-97) % Hemoglobin (13.0-17.5) gm/dL Sodium 134 L (137-145) mmol/L Carbon Dioxide 19 L (22-30) mmol/L BUN 38 H (9-20) mg/dL Creatinine 1.89 H (0.66-1.25) mg/dL Glucose 157 H (74-99) mg/dL POC Glucose (mg/dL) 145 H (70-110) mg/dL Hemoglobin A1c (<=6.0) % Calcium 7.7 L (8.4-10.2) mg/dL 12/08/24 Range/Units 05:45 WBC (3.8-10.6) k/uL RBC (4.30-5.90) m/uL Hgb (13.0-17.5) gm/dL MCHC (31.0-37.0) g/dL Neutrophils # (1.3-7.7) k/uL Lymphocytes # (1.0-4.8) k/uL APTT (22.0-30.0) sec ABG pH 7.25 L (7.35-7.45) ABG pCO2 50 H (35-45) mmHg ABG pO2 125 H (83-108) mmHg ABG O2 Saturation 98.7 H (94-97) % Hemoglobin 12.3 L (13.0-17.5) gm/dL Sodium (137-145) mmol/L Carbon Dioxide (22-30) mmol/L BUN (9-20) mg/dL Creatinine (0.66-1.25) mg/dL Glucose (74-99) mg/dL POC Glucose (mg/dL) (70-110) mg/dL Hemoglobin A1c (<=6.0) % Calcium (8.4-10.2) mg/dL Microbiology - Last 24 Hours (Table) 12/06/24 20:40 Gram Stain - Preliminary Sputum
--- NOTE | 2024-12-08 13:26 | US ---
EXAMINATION TYPE: US kidneys/renal and bladder DATE OF EXAM: 12/08/2024 COMPARISON: CT CLINICAL INDICATION: Male, 84 years old with history of deena; DEENA TECHNIQUE: Grayscale imaging of the bilateral kidneys and urinary bladder: FINDINGS: EXAM MEASUREMENTS: Right Kidney: 11.8 x 4.9 x 4.6 cm Left Kidney: 11.8 x 5.3 x 4.7 cm Limited views- obese, immobile, vented pt in ICU- difficult to scan Right Kidney: Limited views show no evidence of hydro Left Kidney: Limited views show no evidence of hydro Bladder: Pt has cath in place There is no evidence for hydronephrosis at this point in time. No nephrolithiasis is seen. No gray s are identified. The urinary bladder is anechoic. IMPRESSION: No evidence for obstructive uropathy. [facility], , 12/08/2024 1:24 PM
[2024-12-08 17:35] LABS: Glucose,Whole Blood 187 mg/dL (70-110)
[2024-12-08 18:04] LABS: Glucose,Whole Blood 172 mg/dL (70-110)
[2024-12-08] MEDS ORDERED: VENLAFAXINE HCL 25 MG TAB PO SCH (21:00)
[2024-12-08] MEDS: SENNOSIDES 8.6 MG TAB PO PRN (21:16)
[2024-12-08] MEDS: MAGNESIUM HYDROXIDE 2,400 MG/30 ML CUP PO PRN (21:16)
[2024-12-08] MEDS: VENLAFAXINE HCL 37.5 MG TAB PO SCH (21:18)
--- NOTE | 2024-12-08 22:35 | P.PN ---
Subjective Progress Note Date: 12/08/24 HISTORY OF PRESENTING ILLNESS: Patient is a 84-year-old male with past medical history of hypertension, p aroxysmal atrial fibrillation and other multiple comorbidities. He was recently admitted at [facility] for a right total hip arthroplasty and was then sent to [facility] for physical therapy and rehabilitation. Patient was again hospitalized at [facility] from November 25 to December 04 this time was found to have MRSA pneumonia and was treated with vancomycin. He had a transesophageal echocardiogram which did not show any significant intracardiac infections or concerns of infective endocarditis. This time he presented to the hospital because of increased worsening shortness of breath. On admission he was tested positive for influenza A. Chest x-ray showed concerns of basilar pneumonia and congestive heart failure exacerbation. Due to respiratory distress and increased work of breathing he was intubated. Admission Cardiac Labs: Hemoglobin 12.9, BUN 33, creatinine 1.06, troponin was 0.027, NT-proBNP 2000, Admission testing: EKG shows atrial fibrillation with RVR, right bundle branch block, occasional PVCs Prior cardiac testing: Echo from November 2024 shows LVEF 40 to 45%, mild aortic regurgitation. Technically difficult study Progress note 12/08/2024 Patient is seen and examined bedside this a.m., continues to be on ventilator support and is requiring pressor support. Atrial fibrillation is rate controlled. PHYSICAL EXAMINATION: Neck: Brisk carotid upstroke, Lungs: ET tube in place on vent support, mild crackles and rhonchi audible Heart: Irregularly irregular pulse, S1-S2, mild diastolic murmur audible Abdomen: Soft nontender, positive bowel sounds. Extremities: 1+ pitting edema. Neuro: Under sedation. Detailed neuroexam was not performed. 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 Resume low-dose beta-niraj once patient is able to titrate down from pressors Continue supportive care from ICU and primary care team Prognosis is guarded Objective - Vital Signs Vital signs: Vital Signs Temp 97.5 F L 12/08/24 20:00 Pulse 93 12/08/24 22:00 Resp 26 H 12/08/24 22:00 BP 108/76 12/08/24 22:00 Pulse Ox 97 12/08/24 22:00 FiO2 50 12/08/24 20:00 Intake & Output 12/08/24 12/08/24 12/09/24 06:59 18:59 06:59 Intake Total 3177.887 1359.621 250 Output Total 740 920 190 Balance 2437.887 439.621 60 Weight 116.7 kg Intake: IV 1200 300 Sodium Chloride 0.9% 1, 1200 300 000 ml @ 100 mls/hr IV . Q10H BRIANA Rx#:[id number] Intake, IV Titration 1707.887 729.621 130 Amount Amiodarone 450 mg In 250 Dextrose 5% in Water 250 ml @ 0.5 MG/MIN 16.667 mls/hr IV .Q15H BRIANA Rx#: [id number] Cefepime 2 gm In Sodium 100 Chloride 0.9% 100 ml @ 25 mls/hr IVPB Q12H [facility]RIANA Rx# :[id number] Heparin Sod,Pork in 0.45% 152.804 NaCl 25,000 unit In 0.45 % NaCl 1 250ml.bag @ 8. 889 UNITS/KG/HR 10 mls/hr IV .Q24H BRIANA Rx#: [id number] Norepinephrine 4 mg In 568.530 269.598 Sodium Chloride 0.9% 250 ml @ 0.03 MCG/KG/MIN 12. 443 mls/hr IV .[id number] BRIANA Rx#:[id number] Sodium Chloride 0.9% 1, 70 30 000 ml @ 10 mls/hr IV . Q24H BRIANA Rx#:[id number] Vancomycin 1,750 mg In 500 Sodium Chloride 0.9% 500 ml 500 ml @ 167 mls/hr IVPB Q24H BRIANA Rx#: [id number] propofoL 1,000 mg In 289.357 237.219 100 Empty Bag 1 bag @ 15 MCG/ KG/MIN 9.798 mls/hr IV . [id number] BRIANA Rx#:[id number] Tube Feeding 210 270 90 Other 60 60 30 Output: Urine 740 920 190 Other: Voiding Method Indwelling Catheter Indwelling Catheter ABP, PAP, CO, CI - Last Documented Arterial Blood Pressure 105/62 - Labs CBC & Chem 7: 12/08/24 04:30 12/08/24 04:30 Labs: Abnormal Lab Results - Last 24 Hours (Table) 12/07/24 12/07/24 12/07/24 Range/Units 03:13 23:35 23:37 WBC (3.8-10.6) k/uL RBC (4.30-5.90) m/uL Hgb (13.0-17.5) gm/dL MCHC (31.0-37.0) g/dL Neutrophils # (1.3-7.7) k/uL Lymphocytes # (1.0-4.8) k/uL APTT 43.3 H (22.0-30.0) sec ABG pH (7.35-7.45) ABG pCO2 (35-45) mmHg ABG pO2 (83-108) mmHg ABG O2 Saturation (94-97) % Hemoglobin (13.0-17.5) gm/dL Sodium (137-145) mmol/L Carbon Dioxide (22-30) mmol/L BUN (9-20) mg/dL Creatinine (0.66-1.25) mg/dL Glucose (74-99) mg/dL POC Glucose (mg/dL) 151 H (70-110) mg/dL Hemoglobin A1c 6.3 H (<=6.0) % Calcium (8.4-10.2) mg/dL 12/08/24 12/08/24 12/08/24 Range/Units 04:26 04:30 04:30 WBC 36.6 H (3.8-10.6) k/uL RBC 4.25 L (4.30-5.90) m/uL Hgb 12.0 L (13.0-17.5) gm/dL MCHC 30.8 L (31.0-37.0) g/dL Neutrophils # 35.2 H (1.3-7.7) k/uL Lymphocytes # 0.3 L (1.0-4.8) k/uL APTT (22.0-30.0) sec ABG pH (7.35-7.45) ABG pCO2 (35-45) mmHg ABG pO2 (83-108) mmHg ABG O2 Saturation (94-97) % Hemoglobin (13.0-17.5) gm/dL Sodium 134 L (137-145) mmol/L Carbon Dioxide 19 L (22-30) mmol/L BUN 38 H (9-20) mg/dL Creatinine 1.89 H (0.66-1.25) mg/dL Glucose 157 H (74-99) mg/dL POC Glucose (mg/dL) 145 H (70-110) mg/dL Hemoglobin A1c (<=6.0) % Calcium 7.7 L (8.4-10.2) mg/dL 12/08/24 12/08/24 12/08/24 Range/Units 05:45 11:42 17:34 WBC (3.8-10.6) k/uL RBC (4.30-5.90) m/uL Hgb (13.0-17.5) gm/dL MCHC (31.0-37.0) g/dL Neutrophils # (1.3-7.7) k/uL Lymphocytes # (1.0-4.8) k/uL APTT (22.0-30.0) sec ABG pH 7.25 L (7.35-7.45) ABG pCO2 50 H (35-45) mmHg ABG pO2 125 H (83-108) mmHg ABG O2 Saturation 98.7 H (94-97) % Hemoglobin 12.3 L (13.0-17.5) gm/dL Sodium (137-145) mmol/L Carbon Dioxide (22-30) mmol/L BUN (9-20) mg/dL Creatinine (0.66-1.25) mg/dL Glucose (74-99) mg/dL POC Glucose (mg/dL) 195 H 187 H (70-110) mg/dL Hemoglobin A1c (<=6.0) % Calcium (8.4-10.2) mg/dL 12/08/24 Range/Units 18:02 WBC (3.8-10.6) k/uL RBC (4.30-5.90) m/uL Hgb (13.0-17.5) gm/dL MCHC (31.0-37.0) g/dL Neutrophils # (1.3-7.7) k/uL Lymphocytes # (1.0-4.8) k/uL APTT (22.0-30.0) sec ABG pH (7.35-7.45) ABG pCO2 (35-45) mmHg ABG pO2 (83-108) mmHg ABG O2 Saturation (94-97) % Hemoglobin (13.0-17.5) gm/dL Sodium (137-145) mmol/L Carbon Dioxide (22-30) mmol/L BUN (9-20) mg/dL Creatinine (0.66-1.25) mg/dL Glucose (74-99) mg/dL POC Glucose (mg/dL) 172 H (70-110) mg/dL Hemoglobin A1c (<=6.0) % Calcium (8.4-10.2) mg/dL Microbiology - Last 24 Hours (Table) 12/07/24 09:37 Blood Culture - Preliminary Blood 12/06/24 20:40 Gram Stain - Preliminary Sputum Sputum Culture - Preliminary Pseudomonas aeruginosa
[2024-12-08 23:31] LABS: Glucose,Whole Blood 169 mg/dL (70-110)
[2024-12-08] MEDS: METOPROLOL TARTRATE 25 MG TAB PO STA (23:42)
[2024-12-09] MEDS: HEPARIN SODIUM 1,000 UN/ML (10ML VL) IV PRN (01:30)
[2024-12-09] MEDS: HYDROcodone/APAP 5-325MG 1 EACH TAB PO PRN (02:40)
[2024-12-09 04:19] LABS: Basophils % (A) 0 %; Eosinophils % (A) 0 %; HCT 36.1 % (39.0-53.0); HGB 11.4 gm/dL (13.0-17.5); Hypochromasia Moderate; Lymphocytes # (A) 0.4 k/uL (1.0-4.8); Lymphocytes % (A) 1 %; MCH 28.2 pg (25.0-35.0); MCHC 31.5 g/dL (31.0-37.0); MCV 89.6 fL (80.0-100.0); Mean Platelet Volume 7.9; Monocytes # (A) 0.6 k/uL (0-1.0); Monocytes % (A) 2 %; Neutrophils # (A) 28.2 k/uL (1.3-7.7); Neutrophils % (A) 97 %; Platelet Count 158 k/uL (150-450); RBC 4.03 m/uL (4.30-5.90); RDW 15.7 % (11.5-15.5); WBC 29.2 k/uL (3.8-10.6)
[2024-12-09 05:30] LABS: African American GFR (CKD) 26 (>60 ml/min/1.73 sqM); Anion Gap 11 mmol/L; Blood Urea Nitrogen 56 mg/dL (9-20); Calcium 7.6 mg/dL (8.4-10.2); Carbon Dioxide 21 mmol/L (22-30); Chloride 102 mmol/L (98-107); Glucose 188 mg/dL (74-99); Magnesium 2.2 mg/dL (1.6-2.3); Non-African American GFR(CKD) 22 (>60 ml/min/1.73 sqM); Sodium 134 mmol/L (137-145)
[2024-12-09 05:39] LABS: Glucose,Whole Blood 194 mg/dL (70-110)
[2024-12-09 05:48] LABS: ABG Base Excess -4.1 mmol/L; ABG HCO3 22 mmol/L (21-25); ABG Oxygen Saturation 93.8 % (94-97); ABG PCO2 43 mmHg (35-45); ABG PH 7.32 (7.35-7.45); ABG PO2 72 mmHg (83-108); ABG TCO2 23 mmol/L (19-24)
[2024-12-09 05:49] LABS: Allen Test Performed? no
[2024-12-09] MEDS: METOPROLOL TARTRATE 25 MG TAB PO STA (06:30)
[2024-12-09] MEDS: METOPROLOL TARTRATE 50 MG TAB PO STA (06:35)
--- NOTE | 2024-12-09 07:12 | XR ---
EXAMINATION TYPE: XR chest 1V portable DATE OF EXAM: 12/09/2024 COMPARISON: 12/08/2024 CLINICAL INDICATION: Male, 84 years old with history of Tube placement; , TECHNIQUE: XR chest 1V portable views of the chest. FINDINGS: The heart is enlarged and there is a diffuse interstitial pattern. ET, NG tube and central line stabl e. Atherosclerotic change aorta. Tiny bilateral pleural effusion. No pneumothorax. Degenerative blake e of the spine. IMPRESSION: 1. Stable interstitial pattern with small effusion and basilar subsegmental consolidation. Correlate for mild CHF otherwise consider infectious etiology\pneumonia. [facility], , 12/09/2024 7:09 AM
--- NOTE | 2024-12-09 07:47 | P.CONS ---
History of Present Illness - Reason for Consult Consult date: 12/08/24 Sepsis, Pseudomonas pneumonia Requesting physician: Buzz Zimmerman - Chief Complaint Increasing shortness of breath x 1 day on admission - History of Present Illness Patient is a 84-year-old male with a past medical history significant for atrial fibrillation diabetes mellitus DVT hypertension hyperlipidemia recent admission to the hospital diagnosed with MRSA bacteremia source was likely pneumonia patient did have extensive workup including LIS that was negative he clear his bacteremia and was discharged to the assisted to finish his course of therapy patient has been brought back to the hospital on 12/06/2024 for evaluation of increasing shortness of breath requiring more oxygen and nonrebreather patient ended up getting intubated and admitted to the ICU on presentation to the hospital patient was afebrile and no fever have been called subsequently patient was tachycardic hypotensive requiring pressor support and is currently on the vent requiring 60% FiO2 patient did have a white count of 34,000 on admission which went up to 43,000 currently down to 36.6 thousand patient did have normal creatinine on admission which is trending up up to 1.89 today Vanco trough is 27.3 tested positive for influenza A blood culture were not on admission we will repeat yesterday so far pending sputum is growing Pseudomonas chest x-ray on admission noted exam and mention no evidence of effusion focal consolidation or pneumothorax chest x-ray from this morning mild pulmonary vascular congestion no definite effusion or pneumothorax ID was consulted today for management of antibiotic most information has been obtained from review the chart talking nursing staff as the patient is currently intubated on the vent and cannot provide any history Review of Systems Positive points has been mentioned in HPI complete review could not be obtained because of his underlying mental status Past Medical History Past Medical History: Atrial Fibrillation, Asthma, Cancer, Diabetes Mellitus, Deep Vein Thrombosis (DVT), GERD/Reflux, Hearing Disorder / Deafness, Hyperlipidemia, Hypertension, Osteoarthritis (OA), Pneumonia, Prostate Disorder Additional Past Medical History / Comment(s): Hx pneumonia yrs ago, RSV/ hospitalized x 2 weeks in ICU, dvt R calf, hiatal hernia, hx kidney stones, [place] use of bilateral hearing aids. skin ca; "pre diabetic". History of Any Multi-Drug Resistant Organisms: MRSA Year Discovered:: 11/25/24 MDRO Source:: blood Past Surgical History: Joint Replacement, Orthopedic Surgery Additional Past Surgical History / Comment(s): Bilateral knee replacements., total L hip arthroplasty, LIS and cardioversions, elbow surg, cystoscopy & right ureter stent Aug 2024, stent removed Sep 2024. Right TAD. Past Anesthesia/Blood Transfusion Reactions: No Reported Reaction Past Psychological History: Depression Smoking Status: Never smoker Past Alcohol Use History: Rare Past Drug Use History: None Reported - Past Family History Mother Family Medical History: No Reported History Father Additional Family Medical History / Comment(s): open heart Medications and Allergies Home Medications Medication Instructions Recorded Confirmed Type Tamsulosin HCl [Flomax] 0.4 mg PO HS 05/29/18 12/06/24 History Albuterol Sulfate [Albuterol 1 puff INHALATION RT-Q4H PRN 10/07/21 12/06/24 History Sulfate Hfa] Fluticasone Nasal [place] [Flonase 1 spr EA NOSTRIL Q12H PRN 06/02/22 12/06/24 History Nasal [place]] Fluticasone/Umeclidin/Vilanter 1 puff INHALATION RT-DAILY 09/07/23 12/06/24 History [Trelegy Ellipta 200-62.5-25] Atorvastatin [Lipitor] 40 mg PO HS 10/16/23 12/06/24 History Ezetimibe [Zetia] 10 mg PO HS 10/16/23 12/06/24 History Levocetirizine Dihydrochloride 5 mg PO HS 10/16/23 12/06/24 History [Xyzal] Dapagliflozin Propanediol [Farxiga] 10 mg PO DAILY #30 tab 03/27/24 12/06/24 Rx Budesonide/Formoterol Fumarate 1 puff INHALATION RT-BID@0800,1600 09/13/24 12/06/24 History [Breyna 160-4.5 Mcg Inhaler] Cholecalciferol (Vitamin D3) 50 mcg PO DAILY 10/21/24 12/06/24 History [Vitamin D3 (50 Mcg = 2000 Iu)] Ondansetron [Zofran] 4 mg PO Q6HR PRN #30 tab 10/25/24 12/06/24 Rx guaiFENesin SYRUP 100MG/5ML 200 mg PO Q6HR PRN ml 10/30/24 12/06/24 Rx [Robitussin] Acetaminophen [Tylenol 8 Hour] 650 mg PO Q6H PRN 11/25/24 12/06/24 History Benzonatate [Tessalon Perles] 100 mg PO TID 11/25/24 12/06/24 History Docusate [Colace] 100 mg PO BID@0800,1600 11/25/24 12/06/24 History Furosemide [Lasix] 40 mg PO BID 11/25/24 12/06/24 History Ipratropium-Albuterol Nebulize 3 ml INHALATION RT-Q6H 11/25/24 12/06/24 History [Duoneb 0.5 mg-3 mg/3 ml Soln] Naloxone HCl [Narcan] 4 mg NASAL ONCE PRN 11/25/24 12/06/24 History Potassium Chloride [Klor-Con M20] 20 meq PO DAILY 11/25/24 12/06/24 History Rivaroxaban [Xarelto] 20 mg PO DAILY 11/25/24 12/06/24 History Sennosides [Senokot] 17.2 mg PO DAILY PRN 11/25/24 12/06/24 History polyethylene glycoL 3350 [Miralax] 17 gm PO Q24H PRN 11/25/24 12/06/24 History HYDROcodone/APAP 5-325MG [[place] 1 tab PO Q6HR PRN #12 tab 12/04/24 12/06/24 Rx 5-325] Losartan [Cozaar] 25 mg PO DAILY tab 12/04/24 12/06/24 Rx Metoprolol Tartrate [Lopressor] 150 mg PO BID tab 12/04/24 12/06/24 Rx Spironolactone [Aldactone] 25 mg PO DAILY tab 12/04/24 12/06/24 Rx Vancomycin 1,750 mg IVPB Q16H 10 Days each 12/04/24 12/06/24 Rx Ammonium Lactate Cream [Lac-Hydrin 1 applic TOPICAL Q12H PRN 12/06/24 12/06/24 History 12% Cream] Magnesium Hydroxide [Milk of 2,400 mg PO Q24H PRN 12/06/24 12/06/24 History Magnesia] Omeprazole 20 mg PO HS 12/06/24 12/06/24 History Venlafaxine HCl ER [Effexor Xr] 37.5 mg PO HS 12/06/24 12/06/24 History predniSONE See Taper PO DAILY 12/06/24 12/06/24 History Allergies Allergy/AdvReac Type Severity Reaction Status Date / Time rosuvastatin [From Crestor] AdvReac muscle Verified 12/06/24 14:08 soreness/cramps Physical Exam Vitals: Vital Signs Temp Pulse Resp BP Pulse Ox FiO2 12/08/24 13:00 107 H 24 114/84 96 12/08/24 12:45 109 H 24 114/84 97 12/08/24 12:30 96 24 114/84 95 12/08/24 12:15 97.7 F 102 H 24 114/84 96 12/08/24 12:00 99 114/84 96 60 12/08/24 11:45 96 96 12/08/24 11:30 92 95 12/08/24 11:26 100 12/08/24 11:15 89 93 L 12/08/24 11:14 100 12/08/24 11:09 60 12/08/24 11:00 93 116/85 12/08/24 10:45 86 116/85 92 L 12/08/24 10:30 100 116/85 92 L 12/08/24 10:15 101 H 116/85 92 L 12/08/24 10:00 99 119/88 92 L 60 12/08/24 09:45 101 H 119/88 91 L 12/08/24 09:30 105 H 119/88 92 L 12/08/24 09:15 98 119/88 93 L 80 12/08/24 09:00 98 110/74 96 12/08/24 08:45 89 110/74 98 12/08/24 08:30 90 110/74 97 12/08/24 08:15 95 110/74 97 12/08/24 08:11 92 12/08/24 08:00 97.8 F 86 104/70 97 90 12/08/24 07:56 92 12/08/24 07:48 80 12/08/24 07:45 89 104/70 98 12/08/24 07:30 101 H 104/70 99 12/08/24 07:15 89 104/70 99 12/08/24 07:00 93 98 12/08/24 06:45 101 H 98 12/08/24 06:30 100 98 12/08/24 06:15 93 98 12/08/24 06:00 86 99 12/08/24 05:45 85 98 12/08/24 05:30 89 98 12/08/24 05:15 84 97 12/08/24 05:00 90 111/67 96 12/08/24 04:45 85 111/67 95 12/08/24 04:39 95 12/08/24 04:30 79 111/67 96 12/08/24 04:28 92 12/08/24 04:25 90 12/08/24 04:15 92 111/67 93 L 12/08/24 04:00 97.7 F 80 91/74 93 L 90 12/08/24 03:45 90 95/68 94 L 12/08/24 03:30 95 93/65 95 12/08/24 03:15 89 24 95 12/08/24 03:00 86 97 12/08/24 02:45 89 98 12/08/24 02:30 117 H 98 12/08/24 02:15 123 H 49 H 98 12/08/24 02:00 124 H 24 98 12/08/24 01:45 124 H 24 98 12/08/24 01:30 117 H 24 98 12/08/24 01:15 109 H 24 98 12/08/24 01:00 123 H 97 12/08/24 00:45 124 H 98 12/08/24 00:30 124 H 24 98 12/08/24 00:15 123 H 98 12/08/24 00:08 113 H 98 12/08/24 00:00 123 H 36 H 98 90 12/07/24 23:45 125 H 37 H 98 12/07/24 23:42 114 H 12/07/24 23:32 115 H 90 12/07/24 23:30 118 H 98 12/07/24 23:15 120 H 25 H 98 12/07/24 23:00 118 H 97 12/07/24 22:45 124 H 24 97 12/07/24 22:30 131 H 97 12/07/24 22:15 121 H 24 97 12/07/24 22:00 125 H 20 98 12/07/24 21:45 107 H 58 H 97 12/07/24 21:30 117 H 24 98 12/07/24 21:15 106 H 24 97 12/07/24 21:00 130 H 24 98 12/07/24 20:45 117 H 24 98 12/07/24 20:30 125 H 24 98 12/07/24 20:15 121 H 21 98 12/07/24 20:00 98.2 F 124 H 24 97 90 12/07/24 19:54 112 H 12/07/24 19:45 120 H 24 96 12/07/24 19:40 111 H 12/07/24 19:37 90 12/07/24 19:30 129 H 23 97 12/07/24 19:15 118 H 97 12/07/24 19:00 118 H 30 H 97 12/07/24 18:45 111 H 27 H 95 12/07/24 18:30 124 H 24 96 12/07/24 18:15 117 H 24 96 12/07/24 18:00 115 H 24 96 12/07/24 17:45 121 H 23 94 L 12/07/24 17:30 112 H 33 H 95 12/07/24 17:15 122 H 24 95 12/07/24 17:00 116 H 24 95 12/07/24 16:45 104 H 24 93 L 12/07/24 16:30 118 H 24 94 L 12/07/24 16:15 111 H 24 94 L 12/07/24 16:00 94.3 F L 108 H 24 95 90 12/07/24 15:45 109 H 24 94 L 12/07/24 15:30 116 H 24 94 L 12/07/24 15:18 104 H 12/07/24 15:15 103 H 24 95 12/07/24 15:06 110 H 90 12/07/24 15:00 112 H 24 94 L 12/07/24 14:45 110 H 24 94 L 12/07/24 14:30 116 H 24 92 L 12/07/24 14:15 112 H 24 94 L 12/07/24 14:00 120 H 24 93 L 12/07/24 13:45 112 H 24 93 L Intake and Output 12/07/24 12/08/24 12/08/24 22:59 06:59 14:59 Intake Total 8415.263 5901.620 1067.167 Output Total 375 540 570 Balance 0901.084 5751.620 497.167 Intake: IV 800 800 300 Sodium Chloride 0.9% 1, 800 800 300 000 ml @ 100 mls/hr IV . Q10H [facility] Rx#:[id number] Intake, IV Titration 899.249 7551.620 497.167 Amount Amiodarone 450 mg In 250 Dextrose 5% in Water 250 ml @ 0.5 MG/MIN 16.667 mls/hr IV .Q15H [facility] Rx#: [id number] Cefepime 2 gm In Sodium 100 Chloride 0.9% 100 ml @ 25 mls/hr IVPB Q12H [facility] Rx# :[id number] Heparin Sod,Pork in 0.45% 74.833 152.804 NaCl 25,000 unit In 0.45 % NaCl 1 250ml.bag @ 8. 889 UNITS/KG/HR 10 mls/hr IV .Q24H [facility] Rx#: [id number] Norepinephrine 4 mg In 283.379 285.151 186.643 Sodium Chloride 0.9% 250 ml @ 0.03 MCG/KG/MIN 12. 443 mls/hr IV .[id number] [facility] Rx#:[id number] Sodium Chloride 0.9% 1, 20 000 ml @ 10 mls/hr IV . Q24H [facility] Rx#:[id number] Vancomycin 1,750 mg In 500 Sodium Chloride 0.9% 500 ml 500 ml @ 167 mls/hr IVPB Q24H [facility] Rx#: [id number] propofoL 1,000 mg In 196.888 192.469 137.720 Empty Bag 1 bag @ 15 MCG/ KG/MIN 9.798 mls/hr IV . [id number] [facility] Rx#:[id number] Tube Feeding 190 120 210 Other 60 30 60 Output: Urine 375 540 570 Other: Voiding Method Indwelling Catheter Indwelling Catheter Indwelling Catheter Weight 116.7 kg ABP, PAP, CO, CI - Last 8 Hours Arterial Blood Pressure 112/60 Arterial Blood Pressure 121/68 Arterial Blood Pressure 101/64 Arterial Blood Pressure 106/68 Arterial Blood Pressure 115/64 Arterial Blood Pressure 105/66 Arterial Blood Pressure 121/68 Arterial Blood Pressure 106/62 Arterial Blood Pressure 110/65 Arterial Blood Pressure 106/64 Arterial Blood Pressure 107/66 Arterial Blood Pressure 107/67 Arterial Blood Pressure 106/67 Arterial Blood Pressure 109/65 Arterial Blood Pressure 112/67 Arterial Blood Pressure 92/55 Arterial Blood Pressure 113/61 Arterial Blood Pressure 116/64 Arterial Blood Pressure 105/61 Arterial Blood Pressure 103/60 Arterial Blood Pressure 101/59 Arterial Blood Pressure 97/60 Arterial Blood Pressure 102/57 Arterial Blood Pressure 99/58 Arterial Blood Pressure 98/56 Arterial Blood Pressure 96/57 Arterial Blood Pressure 99/59 Arterial Blood Pressure 100/60 Arterial Blood Pressure 107/60 GENERAL DESCRIPTION: Elderly male intubated on the vent HEENT: Shows Pallor , no scleral icterus. Oral mucous membrane is dry. NECK: Trachea central, no thyromegaly. LUNGS: Unlabored breathing. Decreased breath sounds at the base HEART: S1, S2, regular rate and rhythm. No loud murmur ABDOMEN: Soft, no tenderness , guarding or rigidity, no organomegaly EXTREMITIES: No edema of feet. SKIN: No rash, no masses palpable. NEUROLOGICAL: The patient is sedated on the vent Results CBC & Chem 7: 12/09/24 04:00 12/09/24 04:00 Labs: Abnormal Lab Results - Last 24 Hours (Table) 12/07/24 12/07/24 12/07/24 Range/Units 03:13 16:10 17:45 WBC (3.8-10.6) k/uL RBC (4.30-5.90) m/uL Hgb (13.0-17.5) gm/dL MCHC (31.0-37.0) g/dL Neutrophils # (1.3-7.7) k/uL Lymphocytes # (1.0-4.8) k/uL APTT 76.3 H (22.0-30.0) sec ABG pH (7.35-7.45) ABG pCO2 (35-45) mmHg ABG pO2 (83-108) mmHg ABG O2 Saturation (94-97) % Hemoglobin (13.0-17.5) gm/dL Sodium (137-145) mmol/L Carbon Dioxide (22-30) mmol/L BUN (9-20) mg/dL Creatinine (0.66-1.25) mg/dL Glucose (74-99) mg/dL POC Glucose (mg/dL) 188 H (70-110) mg/dL Hemoglobin A1c 6.3 H (<=6.0) % Calcium (8.4-10.2) mg/dL 01/18/25 01/18/25 01/19/25 Range/Units 23:35 23:37 04:26 WBC (3.8-10.6) k/uL RBC (4.30-5.90) m/uL Hgb (13.0-17.5) gm/dL MCHC (31.0-37.0) g/dL Neutrophils # (1.3-7.7) k/uL Lymphocytes # (1.0-4.8) k/uL APTT 43.3 H (22.0-30.0) sec ABG pH (7.35-7.45) ABG pCO2 (35-45) mmHg ABG pO2 (83-108) mmHg ABG O2 Saturation (94-97) % Hemoglobin (13.0-17.5) gm/dL Sodium (137-145) mmol/L Carbon Dioxide (22-30) mmol/L BUN (9-20) mg/dL Creatinine (0.66-1.25) mg/dL Glucose (74-99) mg/dL POC Glucose (mg/dL) 151 H 145 H (70-110) mg/dL Hemoglobin A1c (<=6.0) % Calcium (8.4-10.2) mg/dL 12/08/24 12/08/24 12/08/24 Range/Units 04:30 04:30 05:45 WBC 36.6 H (3.8-10.6) k/uL RBC 4.25 L (4.30-5.90) m/uL Hgb 12.0 L (13.0-17.5) gm/dL MCHC 30.8 L (31.0-37.0) g/dL Neutrophils # 35.2 H (1.3-7.7) k/uL Lymphocytes # 0.3 L (1.0-4.8) k/uL APTT (22.0-30.0) sec ABG pH 7.25 L (7.35-7.45) ABG pCO2 50 H (35-45) mmHg ABG pO2 125 H (83-108) mmHg ABG O2 Saturation 98.7 H (94-97) % Hemoglobin 12.3 L (13.0-17.5) gm/dL Sodium 134 L (137-145) mmol/L Carbon Dioxide 19 L (22-30) mmol/L BUN 38 H (9-20) mg/dL Creatinine 1.89 H (0.66-1.25) mg/dL Glucose 157 H (74-99) mg/dL POC Glucose (mg/dL) (70-110) mg/dL Hemoglobin A1c (<=6.0) % Calcium 7.7 L (8.4-10.2) mg/dL 12/08/24 Range/Units 11:42 WBC (3.8-10.6) k/uL RBC (4.30-5.90) m/uL Hgb (13.0-17.5) gm/dL MCHC (31.0-37.0) g/dL Neutrophils # (1.3-7.7) k/uL Lymphocytes # (1.0-4.8) k/uL APTT (22.0-30.0) sec ABG pH (7.35-7.45) ABG pCO2 (35-45) mmHg ABG pO2 (83-108) mmHg ABG O2 Saturation (94-97) % Hemoglobin (13.0-17.5) gm/dL Sodium (137-145) mmol/L Carbon Dioxide (22-30) mmol/L BUN (9-20) mg/dL Creatinine (0.66-1.25) mg/dL Glucose (74-99) mg/dL POC Glucose (mg/dL) 195 H (70-110) mg/dL Hemoglobin A1c (<=6.0) % Calcium (8.4-10.2) mg/dL Microbiology - Last 24 Hours (Table) 12/06/24 20:40 Gram Stain - Preliminary Sputum Sputum Culture - Preliminary Pseudomonas aeruginosa Assessment and Plan (1) Influenza A Current Visit: Yes Status: Acute Code(s): J10.1 - FLU DUE TO OTH IDENT INFLUENZA VIRUS W OTH RESP MANIFEST SNOMED Code(s): 271539755 (2) Leukocytosis Current Visit: Yes Status: Acute Code(s): D72.829 - ELEVATED WHITE BLOOD CELL COUNT, UNSPECIFIED SNOMED Code(s): 301818105 (3) Pneumonia Current Visit: No Status: Acute Code(s): J18.9 - PNEUMONIA, UNSPECIFIED ORGANISM SNOMED Code(s): 552141971 (4) Sepsis Current Visit: No Status: Acute Code(s): A41.9 - SEPSIS, UNSPECIFIED ORGANISM SNOMED Code(s): 93800338 Plan: 1patient presented to hospital with sepsis in this patient who did have hypot ension requiring pressor support elevated white count source is multifactorial possible component of pneumonia with the sputum not showing Pseudomonas aeruginosa and recently did have a history of MRSA pneumonia. 2 Patient also tested positive for influenza more likely contributing to some of his symptoms 3-patient is adequately covered with cefepime continue while waiting for sensitivities to finalize 4-patient is on vancomycin pharmacy to dose which will be discontinued after completion of 2-week course from his negative blood culture 5-Tamiflu 30 mg p.o. every 12 hours to finish a 5-day course of therapy We will follow on clinical condition and cultures to further adjust medication if needed Thank you for this consultation we will follow the patient along with you Dictation was produced using [employer] dictation software. please excuse any grammatical, word or spelling errors. Time with Patient: Greater than 30
[2024-12-09 12:00] LABS: Glucose,Whole Blood 190 mg/dL (70-110)
[2024-12-09] MEDS: METOPROLOL TARTRATE 25 MG TAB PO SCH (12:29)
[2024-12-09] MEDS: AMIODARONE 200 MG TAB PO SCH (12:29)
--- NOTE | 2024-12-09 12:35 | P.PN ---
Subjective Principal diagnosis: Acute hypoxic respiratory failure This is an 84-year-old white male familiar to my service, patient was recently seen in the hospital for MRSA bacteremia, workup for endocarditis and transesophageal echocardiogram was unremarkable and there was no evidence of vegetations. Patient was discharged to longterm on vancomycin and he had a PICC line in place. His transesophageal echo on his last admission showed ejection fraction of 45%, patient is also known to have history of paroxysmal atrial fibrillation as well as history of hereditary factor VIII deficiency. In addition to all of this the patient is known to have history of mild COPD, hiatal hernia, hypertension, and yesterday longterm was concerned about the patient having episodes of shortness of breath. Patient received diuretics, received bronchodilators, this was done upon arrival to the ER, patient developed worsening atrial fibrillation with RVR. I was notified about this patient from the ER, initially recommended amiodarone and amiodarone drip because of his atrial fibrillation with RVR, cardiology was consulted, his oxygenation while in the ER was getting worse in spite of diuretics his chest x- ray did not show any evidence of significant pulmonary edema, patient was intubated shortly after upon my recommendation, and arrangements made for the patient to transfer to the ICU late at night. In the meantime patient was noted to have leukocytosis, WBC count as high as 43.6, hemoglobin was 12.2. Basic metabolic profile was normal except for slightly low bicarb of 18 BUN 35 creatinine 1.28. Chest x-ray this morning showed normal pulmonary vasculature there was no clear-cut evidence of pneumonia or any pleural effusion, no evidence of congestive heart failure, patient did receive multiple fluid boluses yesterday for low blood pressure after intubation. Today the patient is on assist-control rate of 24 tidal volume 500 FiO2 90% and PEEP of 8 which I increased to 10 ABG remains marginal with a pO2 of 85 pCO2 44 pH of 7.31 patient has been on Xarelto for history of chronic atrial fibrillation presently I would recommend that we place the patient on heparin, patient is still receiving amiodarone at 0.5 mg/min he is also on norepinephrine at 0.06 mcg/kg/min propofol at 50 mcg/kg/min IV fluid 100 cc/h 0.9 normal saline. Went ahead and establish a right radial arterial line, patient does have a PICC line in place hence no need to change PICC line unless the patient comes back with positive blood cultures. In the meantime we are recommending cefepime and vancomycin. 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 Knowing this, possibility of pulmonary embolism is likely and I am recommending that we heparinized the patient for now, once his renal functioning improved may consider sending him down for a CT angiogram of the chest. Seen today on 12/08/2024, patient remains in the ICU, intubated mechanically ventilated, he is on assist-control rate of 24 tidal volume 500 FiO2 90% PEEP of 12 ABG showed a pO2 of 125 pCO2 50 pH of 7.25 hence tidal volume was increased to 550, FiO2 was cut down to 60%, kept the PEEP at 12. Chest x-ray is showing evidence of worsening interstitial edema. Patient is on diuretics Lasix 80 mg IV push twice daily. Patient is still requiring pressors he is on norepineph rine at 0.06 mcg/kg/min propofol at 30 mcg/kg/min IV fluid was 100 cc/h, however considering his chest x-ray I recommended we cut it down to KVO. Patient remains on amiodarone at 0.5 mg/min antibiotics schaefer he is on cefepime and vancomycin patient had recent MRSA bacteremia he is also on Tamiflu for acute influenza. For his DVT and possible pulmonary embolism patient remains on heparin as per protocol. Patient is sedated, still hemodynamically unstable requiring norepinephrine, patient is receiving GI DVT prophylaxis is also on enteral feeding for nutritional support. Blood cultures are still pending no plans to address weaning today since the patient is still requiring relatively high FiO2 and high PEEP. Renal functioning seems to be a bit worse, being addressed by nephrology on the case. Patient may have developed acute kidney injury, likely cardiorenal in nature. And could be related to his low blood pressure on presentation /acute tubular necrosis. 12/09/2024: Patient remains in the ICU, intubated mechanically ventilated, he is on assist-control rate of rr 24 tidal volume 550, peep at 12, fio2 60. ABG showed pO2 of 72, pCO2 43, and pH of 7.32. Overnight heart rate was in the 140s, Dr. Taylor was called and he gave Lopressor PO. CXR showing evidence of stable interstitial pattern with small effusion and basilar subsegmental consolidation. Patient had lower extremity Doppler on 12/07 showing chronic nonoccluding right lower extremity DVT for which she remains on heparin as per protocol. Patient is sedated, still hemodynamically unstable requiring norepinephrine, patient is receiving GI DVT prophylaxis and is also on enteral feeding 25 at goal. Fluid balance is approximately positive 1 L in the last 24 hours. Levo at 7.63 mg/min, heprin at 10, amio at .5, prop 50. Lasix at 80 IV BID. Preliminary Gram stain showed Pseudomonas and blood cultures have been negative through 48 hours. . Creatinine today 2.58 which is increased from yes terday of 1.89. Nephrology is following, they added 2 amp sodium bicarb IV push yesterday and stopped Cozaar, Aldactone, and Farxiga. Nephrology considers DEENA secondary to ATN secondary to septic shock as patient's baseline creatinine is usually near 1. Physical exam: General: Revealed an 84-year-old white male obese intubated mechanically ventilated, sedated HEENT: Atraumatic normocephalic, PERRLA, EOMI, anicteric, no neck masses no JVD NECK: Supple. No JVD. No lymphadenopathy. No thyromegaly. LUNGS: Diminished breath sounds at the bases minimal wheezing/scattered HEART: Irregular irregular rhythm, 2/6 systolic murmur over left lower sternal border ABDOMEN: Obese, soft. Bowel sounds are present. No masses. No tenderness. EXTREMITIES: +2 pedal edema. No tenderness, good pulses bilaterally. NEUROLOGICAL: Could not fully assess, patient is sedated on propofol. Psychiatric: Could not assess because of sedation Assessment: Acute hypoxic respiratory failure, multifactorial persistent sepsis, and septic shock from MRSA bacteremia, this was recently diagnosed, treated with vancomycin, patient was discharged on vancomycin few days ago. Previous workup for endocarditis was negative. Moderate LV dysfunction, today's chest x-ray is showing evidence of interstitial edema hence we will continue Lasix and cut down IV fluid to KVO patient received fluid boluses initially for his presentation of hypotension. Acute kidney injury secondary to hypotension, and could also be cardiorenal patient developed acute tubular necrosis, being addressed by nephrology on the case. 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 Benign essential hypertension Acute influenza A infection, on Tamiflu Recent history of MRSA bacteremia unknown primary site of infection History of right total hip arthroplasty Plan: Continue cefepime, discontinue vancomycin Continue ventilatory support, no plans to wean the patient today Continue sedation/propofol Continue hemodynamic support/norepinephrine (running at 7.63 mg per minute) wean as tolerated Continue heparin as per protocol for DVT and possible pulmonary embolism Close monitoring of I's and O's GI and DVT prophylaxis Nutritional support/enteral feeding patient is receiving vital AF 25 Continue bronchodilators and methylprednisolone Continue amiodarone Continue Lipitor Restart Lasix 80 mg IV push twice daily Nephrology gave 2 Amps sodium bicarb IV push yesterday and discontinued Cozaar, Aldactone, and Farxiga. Patient continues to have positive fluid balance, will discuss this with nephrology potential SLED as renal function remains poor and patient is already on Lasix 80 IV twice daily Patient is critically ill Critical care time is over 30 minutes Will continue to follow Objective - Vital Signs Vital signs: Vital Signs Temp 97.0 F L 12/09/24 04:00 Pulse 115 H 12/09/24 07:00 Resp 24 12/09/24 07:00 BP 96/80 12/09/24 07:00 Pulse Ox 90 L 12/09/24 07:00 FiO2 60 12/09/24 04:51 Intake & Output 12/08/24 12/09/24 12/09/24 18:59 06:59 18:59 Intake Total 6975.341 1842.316 13 Output Total 920 815 25 Balance 439.621 661.316 -12 Weight 122.924 kg Intake: IV 300 243 13 Cefepime 2 gm In Sodium 100 Chloride 0.9% 100 ml @ 25 mls/hr IVPB Q12H [facility] Rx# :[id number] Pressure Bag 33 3 Sodium Chloride 0.9% 1, 300 000 ml @ 100 mls/hr IV . Q10H [facility] Rx#:[id number] kvo 110 10 Intake, IV Titration 729.621 738.316 Amount Amiodarone 450 mg In 250 Dextrose 5% in Water 250 ml @ 0.5 MG/MIN 16.667 mls/hr IV .Q15H [facility] Rx#: [id number] Heparin Sod,Pork in 0.45% 152.804 92.354 NaCl 25,000 unit In 0.45 % NaCl 1 250ml.bag @ 8. 889 UNITS/KG/HR 10 mls/hr IV .Q24H [facility] Rx#: [id number] Norepinephrine 4 mg In 269.598 141.665 Sodium Chloride 0.9% 250 ml @ 0.03 MCG/KG/MIN 12. 443 mls/hr IV .[id number] [facility] Rx#:[id number] Sodium Chloride 0.9% 1, 70 10 000 ml @ 10 mls/hr IV . Q24H [facility] Rx#:[id number] propofoL 1,000 mg In 237.219 244.297 Empty Bag 1 bag @ 15 MCG/ KG/MIN 9.798 mls/hr IV . [id number] [facility] Rx#:[id number] Tube Feeding 270 405 Other 60 90 Output: Urine 920 815 25 Other: Voiding Method Indwelling Catheter Indwelling Catheter ABP, PAP, CO, CI - Last Documented Arterial Blood Pressure 94/57 - Labs CBC & Chem 7: 12/09/24 04:00 12/09/24 04:00 Labs: Abnormal Lab Results - Last 24 Hours (Table) 12/08/24 12/08/24 12/08/24 Range/Units 11:42 17:34 18:02 WBC (3.8-10.6) k/uL RBC (4.30-5.90) m/uL Hgb (13.0-17.5) gm/dL Hct (39.0-53.0) % RDW (11.5-15.5) % Neutrophils # (1.3-7.7) k/uL Lymphocytes # (1.0-4.8) k/uL APTT (22.0-30.0) sec ABG pH (7.35-7.45) ABG pO2 (83-108) mmHg ABG O2 Saturation (94-97) % Hemoglobin (13.0-17.5) gm/dL Sodium (137-145) mmol/L Carbon Dioxide (22-30) mmol/L BUN (9-20) mg/dL Creatinine (0.66-1.25) mg/dL Glucose (74-99) mg/dL POC Glucose (mg/dL) 195 H 187 H 172 H (70-110) mg/dL Calcium (8.4-10.2) mg/dL 12/08/24 12/09/24 12/09/24 Range/Units 23:30 00:00 04:00 WBC 29.2 H (3.8-10.6) k/uL RBC 4.03 L (4.30-5.90) m/uL Hgb 11.4 L (13.0-17.5) gm/dL Hct 36.1 L (39.0-53.0) % RDW 15.7 H (11.5-15.5) % Neutrophils # 28.2 H (1.3-7.7) k/uL Lymphocytes # 0.4 L (1.0-4.8) k/uL APTT 37.5 H (22.0-30.0) sec ABG pH (7.35-7.45) ABG pO2 (83-108) mmHg ABG O2 Saturation (94-97) % Hemoglobin (13.0-17.5) gm/dL Sodium (137-145) mmol/L Carbon Dioxide (22-30) mmol/L BUN (9-20) mg/dL Creatinine (0.66-1.25) mg/dL Glucose (74-99) mg/dL POC Glucose (mg/dL) 169 H (70-110) mg/dL Calcium (8.4-10.2) mg/dL 12/09/24 12/09/24 12/09/24 Range/Units 04:00 05:37 05:46 WBC (3.8-10.6) k/uL RBC (4.30-5.90) m/uL Hgb (13.0-17.5) gm/dL Hct (39.0-53.0) % RDW (11.5-15.5) % Neutrophils # (1.3-7.7) k/uL Lymphocytes # (1.0-4.8) k/uL APTT (22.0-30.0) sec ABG pH 7.32 L (7.35-7.45) ABG pO2 72 L (83-108) mmHg ABG O2 Saturation 93.8 L (94-97) % Hemoglobin 11.4 L (13.0-17.5) gm/dL Sodium 134 L (137-145) mmol/L Carbon Dioxide 21 L (22-30) mmol/L BUN 56 H (9-20) mg/dL Creatinine 2.58 H (0.66-1.25) mg/dL Glucose 188 H (74-99) mg/dL POC Glucose (mg/dL) 194 H (70-110) mg/dL Calcium 7.6 L (8.4-10.2) mg/dL Microbiology - Last 24 Hours (Table) 12/07/24 09:37 Blood Culture - Preliminary Blood 12/06/24 20:40 Gram Stain - Preliminary Sputum Sputum Culture - Preliminary Pseudomonas aeruginosa
--- NOTE | 2024-12-09 12:43 | P.PN ---
Subjective Progress Note Date: 12/09/24 HISTORY OF PRESENT ILLNESS This is a 84-year-old male with past medical history of hypertension, paroxysmal atrial fibrillation on Xarelto, benign prostatic hypertrophy, hiatal hernia, hereditary factor VIII deficiency, hyperlipidemia, mild intermittent asthma, mild COPD, patient was recently admitted to [facility] after he underwent right total hip arthroplasty that was done by Dr. Thakkar and he has been at [facility] for physical therapy rehabilitation, patient was recently hospitalized at [facility] from November 25 of December 04 after he was admitted for what appears to be right lower lobe pneumonia appears to be MRSA pneumonia, initially was started on vancomycin as well as cefepime was seen in consultation by pulm medicine as well as cardiology, he had a significant MRSA bacteremia, that responded very well to vancomycin, patient ended up going for transesophageal echocardiogram that did not show evidence of any vegetation, it did show evidence of 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%, patient was sent to [facility] December 04, 2024 while he was there he was requiring about 5 L nasal cannula of oxygen, I received a phone call from the nursing staff stating that the patient is in acute respiratory distress today, he was given 60 mg IM of Lasix as well as 80 mg IM of Solu-Medrol with nebulizer treatment along with Pulmicort and DuoNeb, without any relief, he was placed on nonrebreather, and patient was sent to the ER for evaluation, he was found to have a significant leukocytosis with a white count of 36,000, his swab came back positive for influenza A, and chest x-ray showed evidence of cardiomegaly as well as basilar pneumonia patient was started back on his vancomycin as well as cefepime he was started on Tamiflu, he was started on Lasix 80 mg IV push every 12 hours, along with Solu-Medrol 60 mg IV push every 6 hours, DuoNeb nebulization 4 times every day Pulmicort 1 mg nebulization twice every day he is currently on BiPAP, pulmonary consultation as well as cardiology consultation. Sputum culture will be obtained as well as blood cultures. 12/07: While the patient yesterday in the emergency department he went into severe respiratory distress while he was on the BiPAP, he did receive 1 dose of Lasix 80 mg IV push, along with Solu-Medrol 60 mg IV push along with nebulized treatment in the form of DuoNeb as well as Pulmicort, without relief, at that time the decision was made for the patient to be intubated and transferred to the intensive care unit from the emergency department, patient is currently sedated on the ventilator, he is currently on amiodarone drip, as well as propofol drip, he is on 90% FiO2, with a PEEP of 5, pulmonary/critical care is following the patient very closely, cardiology is following as well, patient was started on IV antibiotic in the form of vancomycin as well as cefepime, he was started on Tamiflu as well due to influenza A, his white count initially was elevated at 43,000 down to 38,000, patient appears quite sick at this point in time, his prognosis continue be guarded, will continue with aggressive treatment plan for now, we will follow-up with the patient very closely. 12/08: Patient is laying down in bed he continues to be on the ventilator, currently FiO2 of 60%, PEEP of 12, tidal volume of 550, he continues to have a significant edema both upper and lower extremities, he is not getting any more IV fluid, will wean down his Levophed drip, continue IV antibiotic in the form of vancomycin as well as cefepime, sputum cultures growing Pseudomonas aeruginosa, currently on cefepime as well as vancomycin with pharmacy to dose to be controlled, continue also with Tamiflu for influenza A, patient was seen earlier by nephrology for acute kidney injury due to acute tubular necrosis and vasomotor nephropathy due to septic shock, continue current Lasix 80 mg IV push every 12 hours, monitor the patient input and output and daily weight, ultr asound of the kidney was obtained. 12/09: Patient is still intubated on the ventilator, he is currently on AC mode with a tidal volume of 550 respiration of 24, FiO2 of 60%, PEEP of 12, x-ray still showing evidence of pulmonary edema, he has been getting Lasix 80 mg IV push every 12 hours, he has an acute kidney injury that is getting worse today, his BUN and creatinine is elevated, nephrology is following, patient continues to be on Levophed, he has been on cefepime we will monitor the patient very closely, continue current treatment plan, will follow-up with the patient very closely, patient has been seen by nephrology, cardiology, as well as by pulmonary medicine and critical care, patient also was seen in consultation by infectious disease at this point in time, taken off vancomycin and Tamiflu due to acute kidney injury. REVIEW OF SYSTEMS Patient is sedated on the ventilator. PHYSICAL EXAMINATION Gen: This is an obese 84-year-old is sedated on the ventilator HEENT: Head is atraumatic, normocephalic. Pupils equal, round. Sclerae is anicteric, there is an NG tube in place, and ET tube placed NECK: Supple. No JVD. No lymphadenopathy. No thyromegaly. LUNGS: decreased breath sound at bases, few rhonchi, minimal expiratory wheezes, no chest wall tenderness, no intercostal retractions. HEART: First heart sound is depressed, second heart sound is normal, 2/6 systolic ejection murmur at the left sternal border, irregular irregular due to atrial fibrillation. ABDOMEN: Soft. Bowel sounds are present. No masses. No tenderness. EXTREMITIES: +2 pedal edema. No calf tenderness. Pain in the left hip. Dorsalis pedis palpable bilaterally. NEUROLOGICAL: Patient is currently sedated on the ventilator. ASSESSMENT AND PLAN: 1. Acute vent dependent hypoxemic respiratory failure due to acute systolic heart failure as well as acute left lower lobe Pseudomonas pneumonia and influenza A. Continue Solu-Medrol 60 mg IV push every 6 hours, continue DuoNeb 3 mL nebulization every 4 hours, continue Pulmicort 1 mg of Lasix twice every day, continue Lasix 80 mg IV push every 12 hours, continue cefepime 1 g IV piggyback every 12 hours, discontinue vancomycin as well as Tamiflu. 2. Pseudomonas pneumonia with septic shock . Try to wean Levophed off continue IV antibiotic in the form of cefepime 1 g piggyback every 12 hours, continue oxygen support, try to wean FiO2 down, continue to monitor the patient very closely. Infectious disease consultation from Dr. Agosto is appreciated. 3. Atrial fibrillation with rapid ventricular response. Discontinue amiodarone drip, continue patient on amiodarone 200 mg orally twice every day, start the patient on metoprolol 25 mg orally twice every day, monitor the patient symptoms very closely. 4. 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 Continue Lasix 80 mg IV push every 12 hours, continue to monitor the patient very closely. Patient is currently on Levophed drip is currently not taking any antihypertensive medication including metoprolol. 5. Acute kidney injury due to acute tubular necrosis with vasomotor nephropathy due to septic shock. Continue treatment as in the previous paragraphs patient did receive 1 dose of sodium bicarbonate x 1. Discontinue vancomycin and Tamiflu. 6. Anion gap antibiotic acidosis due to acute kidney injury patient did receive IV sodium bicarbonate times 1 repeat CMP tomorrow morning. 7. COPD exacerbation. Continue Solu-Medrol 60 mg IV push every 6 hours, continue Pulmicort 1 mg nebulization twice every day, DuoNeb 3 manipulation 4 times every day, oxygen support, currently on the ventilator. 8. Mild intermittent asthma. Continue Singulair 10 mg at bedtime, loratadine 10 mg once every day, continue aggressive pulmonary toileting. 9. Benign prostatic hypertrophy. Continue Flomax 0.4 mg currently has a Henry catheter in place. 10. Hereditary factor VIII deficiency. Continue heparin drip for now. 11. Hyperlipidemia. Continue Zetia 10 mg daily and Atorvastatin 40 mg once a day. Monitor the patient lipid panel, keep LDL 55-70 12. Hypertension and hypertensive cardiovascular disease. patient blood pressure is soft at this time, continue metoprolol 25 mg twice every day for now. 13. GI prophylaxis. Protonix 40 mg IV push daily. 14. DVT prophylaxis. Continue drip for now. 15. Major depressive disorder. Continue patient on Effexor XR 37.5 mg orally once every day. 16. Prognosis is guarded 17. Full code. Objective - Vital Signs Vital signs: Vital Signs Temp 97.0 F L 12/09/24 08:00 Pulse 105 H 12/09/24 10:00 Resp 24 12/09/24 10:00 BP 106/82 12/09/24 09:15 Pulse Ox 92 L 12/09/24 10:00 FiO2 50 12/09/24 08:00 Intake & Output 12/08/24 12/09/24 12/09/24 18:59 06:59 18:59 Intake Total 0879.655 3944.316 187.347 Output Total 920 815 85 Balance 439.621 661.316 102.347 Weight 122.924 kg Intake: IV 300 243 39 Cefepime 2 gm In Sodium 100 Chloride 0.9% 100 ml @ 25 mls/hr IVPB Q12H [facility] Rx# :[id number] Pressure Bag 33 9 Sodium Chloride 0.9% 1, 300 000 ml @ 100 mls/hr IV . Q10H [facility] Rx#:[id number] kvo 110 30 Intake, IV Titration 729.621 738.316 148.347 Amount Amiodarone 450 mg In 250 Dextrose 5% in Water 250 ml @ 0.5 MG/MIN 16.667 mls/hr IV .Q15H [facility] Rx#: [id number] Heparin Sod,Pork in 0.45% 152.804 92.354 NaCl 25,000 unit In 0.45 % NaCl 1 250ml.bag @ 8. 889 UNITS/KG/HR 10 mls/hr IV .Q24H [facility] Rx#: [id number] Norepinephrine 4 mg In 269.598 141.665 148.347 Sodium Chloride 0.9% 250 ml @ 0.03 MCG/KG/MIN 12. 443 mls/hr IV .[id number] [facility] Rx#:[id number] Sodium Chloride 0.9% 1, 70 10 000 ml @ 10 mls/hr IV . Q24H [facility] Rx#:[id number] propofoL 1,000 mg In 237.219 244.297 Empty Bag 1 bag @ 15 MCG/ KG/MIN 9.798 mls/hr IV . [id number] [facility] Rx#:[id number] Tube Feeding 270 405 Other 60 90 Output: Urine 920 815 85 Other: Voiding Method Indwelling Catheter Indwelling Catheter Indwelling Catheter ABP, PAP, CO, CI - Last Documented Arterial Blood Pressure 95/55 - Labs CBC & Chem 7: 12/09/24 04:00 12/09/24 04:00 Labs: Abnormal Lab Results - Last 24 Hours (Table) 12/08/24 12/08/24 12/08/24 Range/Units 11:42 17:34 18:02 WBC (3.8-10.6) k/uL RBC (4.30-5.90) m/uL Hgb (13.0-17.5) gm/dL Hct (39.0-53.0) % RDW (11.5-15.5) % Neutrophils # (1.3-7.7) k/uL Lymphocytes # (1.0-4.8) k/uL APTT (22.0-30.0) sec ABG pH (7.35-7.45) ABG pO2 (83-108) mmHg ABG O2 Saturation (94-97) % Hemoglobin (13.0-17.5) gm/dL Sodium (137-145) mmol/L Carbon Dioxide (22-30) mmol/L BUN (9-20) mg/dL Creatinine (0.66-1.25) mg/dL Glucose (74-99) mg/dL POC Glucose (mg/dL) 195 H 187 H 172 H (70-110) mg/dL Calcium (8.4-10.2) mg/dL 12/08/24 12/09/24 12/09/24 Range/Units 23:30 00:00 04:00 WBC 29.2 H (3.8-10.6) k/uL RBC 4.03 L (4.30-5.90) m/uL Hgb 11.4 L (13.0-17.5) gm/dL Hct 36.1 L (39.0-53.0) % RDW 15.7 H (11.5-15.5) % Neutrophils # 28.2 H (1.3-7.7) k/uL Lymphocytes # 0.4 L (1.0-4.8) k/uL APTT 37.5 H (22.0-30.0) sec ABG pH (7.35-7.45) ABG pO2 (83-108) mmHg ABG O2 Saturation (94-97) % Hemoglobin (13.0-17.5) gm/dL Sodium (137-145) mmol/L Carbon Dioxide (22-30) mmol/L BUN (9-20) mg/dL Creatinine (0.66-1.25) mg/dL Glucose (74-99) mg/dL POC Glucose (mg/dL) 169 H (70-110) mg/dL Calcium (8.4-10.2) mg/dL 12/09/24 12/09/24 12/09/24 Range/Units 04:00 05:37 05:46 WBC (3.8-10.6) k/uL RBC (4.30-5.90) m/uL Hgb (13.0-17.5) gm/dL Hct (39.0-53.0) % RDW (11.5-15.5) % Neutrophils # (1.3-7.7) k/uL Lymphocytes # (1.0-4.8) k/uL APTT (22.0-30.0) sec ABG pH 7.32 L (7.35-7.45) ABG pO2 72 L (83-108) mmHg ABG O2 Saturation 93.8 L (94-97) % Hemoglobin 11.4 L (13.0-17.5) gm/dL Sodium 134 L (137-145) mmol/L Carbon Dioxide 21 L (22-30) mmol/L BUN 56 H (9-20) mg/dL Creatinine 2.58 H (0.66-1.25) mg/dL Glucose 188 H (74-99) mg/dL POC Glucose (mg/dL) 194 H (70-110) mg/dL Calcium 7.6 L (8.4-10.2) mg/dL Microbiology - Last 24 Hours (Table) 12/07/24 09:37 Blood Culture - Preliminary Blood 12/06/24 20:40 Gram Stain - Preliminary Sputum Sputum Culture - Preliminary Pseudomonas aeruginosa
--- NOTE | 2024-12-09 13:32 | PN ---
PROGRESS NOTE SUBJECTIVE: This is an 84-year-old patient with history of hypertension, paroxysmal atrial fibrillation, who is in the hospital with pneumonia. The patient did not have any evidence of infective endocarditis. He presented to hospital recently with symptoms of worsening shortness of breath, thought to be due to a combination of pneumonia and heart failure exacerbation. His BNP was elevated at 1999. His echocardiogram shows an ejection fraction of 40% to 45%. CURRENT MEDICATIONS: Include, 1. Amiodarone 200 b.i.d. 2. Lipitor. 3. Cefepime. 4. Zetia. 5. Lasix 80 IV q.12. 6. Intravenous heparin. 7. Metoprolol. 8. Levophed. OBJECTIVE: VITAL SIGNS: Heart rate is 104 beats per minute, blood pressure is 106/56, respiratory rate is 24. NECK: There is no jugular venous distention. CHEST: Reveals bilateral wheezing. HEART: Reveals first and second heart sounds, irregular, systolic murmur at the apex. ABDOMEN: Soft. EXTREMITIES: Reveals mild edema. LABORATORY DATA: Labs show a hemoglobin of 11.4, white cell count is 29, platelet count is 158, potassium is 4, BUN is 56, and creatinine is 2.5. ASSESSMENT: Atrial fibrillation with rapid ventricular rate, septic shock, gram-negative pneumonia, acute on chronic congestive heart failure. PLAN: I will switch the patient's amiodarone to p.o. Continue the beta blockers. MMJEFFL / JAVADN: [id number] /
--- NOTE | 2024-12-09 15:03 | P.PN ---
Subjective Patient is seen in follow-up for acute kidney injury. Creatinine 2.58 today. Nonoliguric. On IV Lasix. Now on oral amiodarone. Still on Levophed. Receiving tube feeds. Intubated. Vital signs are stable. On vasopressor support. General: Resting in bed. HEENT: Intubated. LUNGS: Scattered rhonchi. HEART: Irregular rate and rhythm. ABDOMEN: Obese. EXTREMITITES: 2+ edema. Objective - Vital Signs Vital signs: Vital Signs Temp 97.5 F L 12/09/24 12:00 Pulse 98 12/09/24 14:15 Resp 20 12/09/24 14:15 BP 106/82 12/09/24 09:15 Pulse Ox 94 L 12/09/24 14:15 FiO2 50 12/09/24 12:00 Intake & Output 12/08/24 12/09/24 12/09/24 18:59 06:59 18:59 Intake Total 5608.224 1472.316 460.750 Output Total 920 815 280 Balance 439.621 661.316 180.750 Weight 122.924 kg Intake: IV 300 243 91 Cefepime 2 gm In Sodium 100 Chloride 0.9% 100 ml @ 25 mls/hr IVPB Q12H [facility] Rx# :[id number] Pressure Bag 33 21 Sodium Chloride 0.9% 1, 300 000 ml @ 100 mls/hr IV . Q10H [facility] Rx#:[id number] kvo 110 70 Intake, IV Titration 729.621 738.316 369.750 Amount Amiodarone 450 mg In 250 Dextrose 5% in Water 250 ml @ 0.5 MG/MIN 16.667 mls/hr IV .Q15H [facility] Rx#: [id number] Heparin Sod,Pork in 0.45% 152.804 92.354 NaCl 25,000 unit In 0.45 % NaCl 1 250ml.bag @ 8. 889 UNITS/KG/HR 10 mls/hr IV .Q24H [facility] Rx#: [id number] Norepinephrine 4 mg In 269.598 141.665 205.957 Sodium Chloride 0.9% 250 ml @ 0.03 MCG/KG/MIN 12. 443 mls/hr IV .[id number] [facility] Rx#:[id number] Sodium Chloride 0.9% 1, 70 10 000 ml @ 10 mls/hr IV . Q24H [facility] Rx#:[id number] propofoL 1,000 mg In 237.219 244.297 163.793 Empty Bag 1 bag @ 15 MCG/ KG/MIN 9.798 mls/hr IV . [id number] [facility] Rx#:[id number] Tube Feeding 270 405 Other 60 90 Output: Urine 920 815 280 Other: Voiding Method Indwelling Catheter Indwelling Catheter Indwelling Catheter ABP, PAP, CO, CI - Last Documented Arterial Blood Pressure 95/51 - Labs CBC & Chem 7: 12/09/24 04:00 12/09/24 04:00 Labs: Abnormal Lab Results - Last 24 Hours (Table) 12/08/24 12/08/24 12/08/24 Range/Units 17:34 18:02 23:30 WBC (3.8-10.6) k/uL RBC (4.30-5.90) m/uL Hgb (13.0-17.5) gm/dL Hct (39.0-53.0) % RDW (11.5-15.5) % Neutrophils # (1.3-7.7) k/uL Lymphocytes # (1.0-4.8) k/uL APTT (22.0-30.0) sec ABG pH (7.35-7.45) ABG pO2 (83-108) mmHg ABG O2 Saturation (94-97) % Hemoglobin (13.0-17.5) gm/dL Sodium (137-145) mmol/L Carbon Dioxide (22-30) mmol/L BUN (9-20) mg/dL Creatinine (0.66-1.25) mg/dL Glucose (74-99) mg/dL POC Glucose (mg/dL) 187 H 172 H 169 H (70-110) mg/dL Calcium (8.4-10.2) mg/dL 12/09/24 12/09/24 12/09/24 Range/Units 00:00 04:00 04:00 WBC 29.2 H (3.8-10.6) k/uL RBC 4.03 L (4.30-5.90) m/uL Hgb 11.4 L (13.0-17.5) gm/dL Hct 36.1 L (39.0-53.0) % RDW 15.7 H (11.5-15.5) % Neutrophils # 28.2 H (1.3-7.7) k/uL Lymphocytes # 0.4 L (1.0-4.8) k/uL APTT 37.5 H (22.0-30.0) sec ABG pH (7.35-7.45) ABG pO2 (83-108) mmHg ABG O2 Saturation (94-97) % Hemoglobin (13.0-17.5) gm/dL Sodium 134 L (137-145) mmol/L Carbon Dioxide 21 L (22-30) mmol/L BUN 56 H (9-20) mg/dL Creatinine 2.58 H (0.66-1.25) mg/dL Glucose 188 H (74-99) mg/dL POC Glucose (mg/dL) (70-110) mg/dL Calcium 7.6 L (8.4-10.2) mg/dL 12/09/24 12/09/24 12/09/24 Range/Units 05:37 05:46 10:16 WBC (3.8-10.6) k/uL RBC (4.30-5.90) m/uL Hgb (13.0-17.5) gm/dL Hct (39.0-53.0) % RDW (11.5-15.5) % Neutrophils # (1.3-7.7) k/uL Lymphocytes # (1.0-4.8) k/uL APTT 47.8 H (22.0-30.0) sec ABG pH 7.32 L (7.35-7.45) ABG pO2 72 L (83-108) mmHg ABG O2 Saturation 93.8 L (94-97) % Hemoglobin 11.4 L (13.0-17.5) gm/dL Sodium (137-145) mmol/L Carbon Dioxide (22-30) mmol/L BUN (9-20) mg/dL Creatinine (0.66-1.25) mg/dL Glucose (74-99) mg/dL POC Glucose (mg/dL) 194 H (70-110) mg/dL Calcium (8.4-10.2) mg/dL 12/09/24 Range/Units 11:59 WBC (3.8-10.6) k/uL RBC (4.30-5.90) m/uL Hgb (13.0-17.5) gm/dL Hct (39.0-53.0) % RDW (11.5-15.5) % Neutrophils # (1.3-7.7) k/uL Lymphocytes # (1.0-4.8) k/uL APTT (22.0-30.0) sec ABG pH (7.35-7.45) ABG pO2 (83-108) mmHg ABG O2 Saturation (94-97) % Hemoglobin (13.0-17.5) gm/dL Sodium (137-145) mmol/L Carbon Dioxide (22-30) mmol/L BUN (9-20) mg/dL Creatinine (0.66-1.25) mg/dL Glucose (74-99) mg/dL POC Glucose (mg/dL) 190 H (70-110) mg/dL Calcium (8.4-10.2) mg/dL Microbiology - Last 24 Hours (Table) 12/06/24 20:40 Gram Stain - Final Sputum Sputum Culture - Final Pseudomonas aeruginosa 12/07/24 09:37 Blood Culture - Preliminary Blood Assessment and Plan Plan: Assessment: 1. Acute kidney injury secondary to ATN secondary to septic shock. Baseline creatinine near 1 and is 2.58 today. Nonoliguric. No hydronephrosis noted on kidney ultrasound. 2. Acute hypoxic respiratory failure secondary to pneumonia. 3. Septic shock. Patient with influenza A pneumonia and sputum culture positive for Pseudomonas. 4. Metabolic acidosis secondary to acute kidney injury. Better. 5. A-fib with RVR maintained on oral amiodarone. 6. Cardiomyopathy with ejection fraction of 40 to 45%. 7. Fluid overload. Plan: Maintain tube feeds. Maintain IV Lasix. Continue to hold Cozaar, Aldactone, Farxiga. Wean FiO2 and vasopressors. Avoid nephrotoxins. Continue to monitor renal function and urine output. Continue to assess daily for need for renal replacement therapy.
[2024-12-09 17:50] LABS: Glucose,Whole Blood 146 mg/dL (70-110)
[2024-12-09] MEDS: CEFEPIME 1 GM in SODIUM CHLORIDE 0.9% 50 ML IVPB SCH (17:59)
[2024-12-09] MEDS: FUROSEMIDE 10 MG/ML 4 ML VIAL IV STA (19:45)
[2024-12-09 23:21] LABS: Glucose,Whole Blood 130 mg/dL (70-110)
[2024-12-10 05:17] LABS: Basophils % (A) 0 %; Eosinophils % (A) 0 %; HCT 36.2 % (39.0-53.0); HGB 11.6 gm/dL (13.0-17.5); Hypochromasia Moderate; Lymphocytes # (A) 0.4 k/uL (1.0-4.8); Lymphocytes % (A) 1 %; MCH 28.7 pg (25.0-35.0); MCHC 32.2 g/dL (31.0-37.0); MCV 89.2 fL (80.0-100.0); Mean Platelet Volume 8.4; Monocytes # (A) 0.5 k/uL (0-1.0); Monocytes % (A) 2 %; Neutrophils % (A) 97 %; Platelet Count 139 k/uL (150-450); RBC 4.05 m/uL (4.30-5.90); RDW 15.8 % (11.5-15.5); WBC 27.5 k/uL (3.8-10.6)
[2024-12-10 05:41] LABS: Neutrophils # (A) 26.6 k/uL (1.3-7.7)
[2024-12-10 06:48] LABS: African American GFR (CKD) 18 (>60 ml/min/1.73 sqM); Anion Gap 12 mmol/L; Blood Urea Nitrogen 68 mg/dL (9-20); Carbon Dioxide 21 mmol/L (22-30); Chloride 101 mmol/L (98-107); Glucose 142 mg/dL (74-99); Non-African American GFR(CKD) 15 (>60 ml/min/1.73 sqM); Potassium 4.8 mmol/L (3.5-5.1); Sodium 134 mmol/L (137-145)
--- NOTE | 2024-12-10 07:09 | XR ---
EXAMINATION TYPE: XR chest 1V portable DATE OF EXAM: 12/10/2024 COMPARISON: 12/09/2024 CLINICAL INDICATION: Male, 84 years old with history of mechanical ventilation; , TECHNIQUE: XR chest 1V portable views of the chest. FINDINGS: The heart is enlarged and there is a diffuse interstitial pattern. ET, NG tube and central line stable. Atherosclerotic change aorta. Tiny bilateral pleural effusion. No pneumothorax. Degenera tive change of the spine. IMPRESSION: 1. Stable interstitial pattern with small effusion and basilar subsegmental consolidation. Correlate for mild CHF otherwise consider infectious etiology pneumonia. [facility], , 12/10/2024 7:07 AM
[2024-12-10] MEDS: OSELTAMIVIR 30 MG CAP PO SCH (08:14)
[2024-12-10 09:08] LABS: ABG Base Excess -5.9 mmol/L; ABG HCO3 22 mmol/L (21-25); ABG Oxygen Saturation 93.7 % (94-97); ABG PCO2 53 mmHg (35-45); ABG PH 7.23 (7.35-7.45); ABG PO2 75 mmHg (83-108); ABG TCO2 24 mmol/L (19-24); Allen Test Performed? Yes
--- NOTE | 2024-12-10 10:35 | P.PN ---
Subjective Progress Note Date: 12/10/24 HISTORY OF PRESENT ILLNESS This is a 84-year-old male with past medical history of hypertension, paroxysmal atrial fibrillation on Xarelto, benign prostatic hypertrophy, hiatal hernia, hereditary factor VIII deficiency, hyperlipidemia, mild intermittent asthma, mild COPD, patient was recently admitted to [facility] after he underwent right total hip arthroplasty that was done by Dr. Thakkar and he has been at [facility] for physical therapy rehabilitation, patient was recently hospitalized at [facility] from November 25 of December 04 after he was admitted for what appears to be right lower lobe pneumonia appears to be MRSA pneumonia, initially was started on vancomycin as well as cefepime was seen in consultation by pulm medicine as well as cardiology, he had a significant MRSA bacteremia, that responded very well to vancomycin, patient ended up going for transesophageal echocardiogram that did not show evidence of any vegetation, it did show evidence of 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%, patient was sent to [facility] December 04, 2024 while he was there he was requiring about 5 L nasal cannula of oxygen, I received a phone call from the nursing staff stating that the patient is in acute respiratory distress today, he was given 60 mg IM of Lasix as well as 80 mg IM of Solu-Medrol with nebulizer treatment along with Pulmicort and DuoNeb, without any relief, he was placed on nonrebreather, and patient was sent to the ER for evaluation, he was found to have a significant leukocytosis with a white count of 36,000, his swab came back positive for influenza A, and chest x-ray showed evidence of cardiomegaly as well as basilar pneumonia patient was started back on his vancomycin as well as cefepime he was started on Tamiflu, he was started on Lasix 80 mg IV push every 12 hours, along with Solu-Medrol 60 mg IV push every 6 hours, DuoNeb nebulization 4 times every day Pulmicort 1 mg nebulization twice every day he is currently on BiPAP, pulmonary consultation as well as cardiology consultation. Sputum culture will be obtained as well as blood cultures. 12/07: While the patient yesterday in the emergency department he went into severe respiratory distress while he was on the BiPAP, he did receive 1 dose of Lasix 80 mg IV push, along with Solu-Medrol 60 mg IV push along with nebulized treatment in the form of DuoNeb as well as Pulmicort, without relief, at that time the decision was made for the patient to be intubated and transferred to the intensive care unit from the emergency department, patient is currently sedated on the ventilator, he is currently on amiodarone drip, as well as propofol drip, he is on 90% FiO2, with a PEEP of 5, pulmonary/critical care is following the patient very closely, cardiology is following as well, patient was started on IV antibiotic in the form of vancomycin as well as cefepime, he was started on Tamiflu as well due to influenza A, his white count initially was elevated at 43,000 down to 38,000, patient appears quite sick at this point in time, his prognosis continue be guarded, will continue with aggressive treatment plan for now, we will follow-up with the patient very closely. 12/08: Patient is laying down in bed he continues to be on the ventilator, currently FiO2 of 60%, PEEP of 12, tidal volume of 550, he continues to have a significant edema both upper and lower extremities, he is not getting any more IV fluid, will wean down his Levophed drip, continue IV antibiotic in the form of vancomycin as well as cefepime, sputum cultures growing Pseudomonas aeruginosa, currently on cefepime as well as vancomycin with pharmacy to dose to be controlled, continue also with Tamiflu for influenza A, patient was seen earlier by nephrology for acute kidney injury due to acute tubular necrosis and vasomotor nephropathy due to septic shock, continue current Lasix 80 mg IV push every 12 hours, monitor the patient input and output and daily weight, ultr asound of the kidney was obtained. 12/09: Patient is still intubated on the ventilator, he is currently on AC mode with a tidal volume of 550 respiration of 24, FiO2 of 60%, PEEP of 12, x-ray still showing evidence of pulmonary edema, he has been getting Lasix 80 mg IV push every 12 hours, he has an acute kidney injury that is getting worse today, his BUN and creatinine is elevated, nephrology is following, patient continues to be on Levophed, he has been on cefepime we will monitor the patient very closely, continue current treatment plan, will follow-up with the patient very closely, patient has been seen by nephrology, cardiology, as well as by pulmonary medicine and critical care, patient also was seen in consultation by infectious disease at this point in time, taken off vancomycin and Tamiflu due to acute kidney injury. 12/10: Patient is laying down in bed he continues to be on the ventilator, his current vent setting is FiO2 of 60%, respiratory rate is 24, tidal volume 450, and FiO2 of 60%, PEEP of 12, patient blood gases showed evidence of metabolic and respiratory acidosis with hypoxemia his pO2 is about 72 and pCO2 is 56, patient is getting a central line today, he continues to have worsening kidney function, will continue current treatment plan, continue follow-up with the patient very closely REVIEW OF SYSTEMS Patient is sedated on the ventilator. PHYSICAL EXAMINATION Gen: This is an obese 84-year-old is sedated on the ventilator HEENT: Head is atraumatic, normocephalic. Pupils equal, round. Sclerae is anicteric, there is an NG tube in place, and ET tube placed NECK: Supple. No JVD. No lymphadenopathy. No thyromegaly. LUNGS: decreased breath sound at bases, few rhonchi, minimal expiratory wh eezes, no chest wall tenderness, no intercostal retractions. HEART: First heart sound is depressed, second heart sound is normal, 2/6 systolic ejection murmur at the left sternal border, irregular irregular due to atrial fibrillation. ABDOMEN: Soft. Bowel sounds are present. No masses. No tenderness. EXTREMITIES: +2 pedal edema. No calf tenderness. Pain in the left hip. Dorsalis pedis palpable bilaterally. NEUROLOGICAL: Patient is currently sedated on the ventilator. ASSESSMENT AND PLAN: 1. Acute vent dependent hypoxemic respiratory failure due to acute systolic heart failure as well as acute left lower lobe Pseudomonas pneumonia and influenza A. Continue Solu-Medrol 60 mg IV push every 6 hours, continue DuoNeb 3 mL nebulization every 4 hours, continue Pulmicort 1 mg of Lasix twice every day, continue Lasix 80 mg IV push every 12 hours, continue cefepime 1 g IV piggyback every 12 hours, discontinue vancomycin as well as Tamiflu. 2. Pseudomonas pneumonia with septic shock . Try to wean Levophed off continue IV antibiotic in the form of cefepime 1 g piggyback every 12 hours, continue oxygen support, try to wean FiO2 down, continue to monitor the patient very closely. Infectious disease consultation from Dr. Agosto is appreciated. 3. Atrial fibrillation with rapid ventricular response. Discontinue amiodarone drip, continue patient on amiodarone 200 mg orally twice every day, start the patient on metoprolol 25 mg orally twice every day, monitor the patient symptoms very closely. 4. 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 Continue Lasix 80 mg IV push every 12 hours, continue to monitor the patient ashu y closely. Patient is currently on Levophed drip is currently not taking any antihypertensive medication including metoprolol. 5. Acute kidney injury due to acute tubular necrosis with vasomotor nephropathy due to septic shock. Continue treatment as in the previous paragraphs patient did receive 1 dose of sodium bicarbonate x 1. Discontinue vancomycin and Tamiflu. 6. Anion gap antibiotic acidosis due to acute kidney injury patient did receive IV sodium bicarbonate times 1 repeat CMP tomorrow morning. 7. COPD exacerbation. Continue Solu-Medrol 60 mg IV push every 6 hours, continue Pulmicort 1 mg nebulization twice every day, DuoNeb 3 manipulation 4 times every day, oxygen support, currently on the ventilator. 8. Mild intermittent asthma. Continue Singulair 10 mg at bedtime, loratadine 10 mg once every day, continue aggressive pulmonary toileting. 9. Benign prostatic hypertrophy. Continue Flomax 0.4 mg currently has a Henry catheter in place. 10. Hereditary factor VIII deficiency. Continue heparin drip for now. 11. Hyperlipidemia. Continue Zetia 10 mg daily and Atorvastatin 40 mg once a day. Monitor the patient lipid panel, keep LDL 55-70 12. Hypertension and hypertensive cardiovascular disease. patient blood pressure is soft at this time, continue metoprolol 25 mg twice every day for now. 13. GI prophylaxis. Protonix 40 mg IV push daily. 14. DVT prophylaxis. Continue drip for now. 15. Major depressive disorder. Continue patient on Effexor XR 37.5 mg orally once every day. 16. Prognosis is guarded 17. Full code. Objective - Vital Signs Vital signs: Vital Signs Temp 96.8 F L 12/10/24 08:00 Pulse 111 H 12/10/24 10:15 Resp 24 12/10/24 09:15 BP 106/82 12/09/24 09:15 Pulse Ox 94 L 12/10/24 09:15 FiO2 60 12/10/24 09:00 Intake & Output 12/09/24 12/10/24 12/10/24 18:59 06:59 18:59 Intake Total 808.435 502.009 364.983 Output Total 415 275 87 Balance 393.435 227.009 277.983 Weight 122.924 kg 123.4 kg Intake: IV 156 156 39 Pressure Bag 36 36 9 kvo 120 120 30 Intake, IV Titration 652.435 191.009 220.983 Amount Heparin Sod,Pork in 0.45% 153.167 NaCl 25,000 unit In 0.45 % NaCl 1 250ml.bag @ 8. 889 UNITS/KG/HR 10 mls/hr IV .Q24H BRIANA Rx#: [id number] Norepinephrine 4 mg In 235.475 0 142.058 Sodium Chloride 0.9% 250 ml @ 0.03 MCG/KG/MIN 12. 443 mls/hr IV .[id number] BRIANA Rx#:[id number] propofoL 1,000 mg In 263.793 191.009 78.925 Empty Bag 1 bag @ 15 MCG/ KG/MIN 9.798 mls/hr IV . [id number] BRIANA Rx#:[id number] Tube Feeding 125 75 Other 30 30 Output: Urine 415 275 87 Other: Voiding Method Indwelling Catheter Indwelling Catheter ABP, PAP, CO, CI - Last Documented Arterial Blood Pressure 106/59 - Labs CBC & Chem 7: 12/10/24 06:00 12/10/24 06:00 Labs: Abnormal Lab Results - Last 24 Hours (Table) 12/09/24 12/09/24 12/09/24 Range/Units 10:16 11:59 17:49 WBC (3.8-10.6) k/uL RBC (4.30-5.90) m/uL Hgb (13.0-17.5) gm/dL Hct (39.0-53.0) % RDW (11.5-15.5) % Plt Count (150-450) k/uL Neutrophils # (1.3-7.7) k/uL Lymphocytes # (1.0-4.8) k/uL APTT 47.8 H (22.0-30.0) sec ABG pH (7.35-7.45) ABG pCO2 (35-45) mmHg ABG pO2 (83-108) mmHg ABG O2 Saturation (94-97) % Hemoglobin (13.0-17.5) gm/dL Sodium (137-145) mmol/L Carbon Dioxide (22-30) mmol/L BUN (9-20) mg/dL Creatinine (0.66-1.25) mg/dL Glucose (74-99) mg/dL POC Glucose (mg/dL) 190 H 146 H (70-110) mg/dL Calcium (8.4-10.2) mg/dL 12/09/24 12/10/24 12/10/24 Range/Units 23:20 05:07 06:00 WBC 27.5 H (3.8-10.6) k/uL RBC 4.05 L (4.30-5.90) m/uL Hgb 11.6 L (13.0-17.5) gm/dL Hct 36.2 L (39.0-53.0) % RDW 15.8 H (11.5-15.5) % Plt Count 139 L (150-450) k/uL Neutrophils # 26.6 H (1.3-7.7) k/uL Lymphocytes # 0.4 L (1.0-4.8) k/uL APTT (22.0-30.0) sec ABG pH 7.23 L (7.35-7.45) ABG pCO2 53 H (35-45) mmHg ABG pO2 75 L (83-108) mmHg ABG O2 Saturation 93.7 L (94-97) % Hemoglobin 11.3 L (13.0-17.5) gm/dL Sodium (137-145) mmol/L Carbon Dioxide (22-30) mmol/L BUN (9-20) mg/dL Creatinine (0.66-1.25) mg/dL Glucose (74-99) mg/dL POC Glucose (mg/dL) 130 H (70-110) mg/dL Calcium (8.4-10.2) mg/dL 12/10/24 12/10/24 Range/Units 06:00 07:28 WBC (3.8-10.6) k/uL RBC (4.30-5.90) m/uL Hgb (13.0-17.5) gm/dL Hct (39.0-53.0) % RDW (11.5-15.5) % Plt Count (150-450) k/uL Neutrophils # (1.3-7.7) k/uL Lymphocytes # (1.0-4.8) k/uL APTT 46.6 H (22.0-30.0) sec ABG pH (7.35-7.45) ABG pCO2 (35-45) mmHg ABG pO2 (83-108) mmHg ABG O2 Saturation (94-97) % Hemoglobin (13.0-17.5) gm/dL Sodium 134 L (137-145) mmol/L Carbon Dioxide 21 L (22-30) mmol/L BUN 68 H (9-20) mg/dL Creatinine 3.51 H (0.66-1.25) mg/dL Glucose 142 H (74-99) mg/dL POC Glucose (mg/dL) (70-110) mg/dL Calcium 8.0 L (8.4-10.2) mg/dL Microbiology - Last 24 Hours (Table) 12/07/24 09:37 Blood Culture - Preliminary Blood 12/06/24 20:40 Gram Stain - Final Sputum Sputum Culture - Final Pseudomonas aeruginosa
--- NOTE | 2024-12-10 11:23 | PN ---
PROGRESS NOTE SUBJECTIVE: Yaw is an 84-year-old gentleman with history of paroxysmal atrial fibrillation, hypertension, and pneumonia, has respiratory failure, currently intubated on vent. CURRENT MEDICATIONS: Include, 1. Amiodarone 200 b.i.d. 2. Lipitor 40 daily. 3. Lasix 80 IV q.12. 4. IV heparin. 5. Lopressor 25 b.i.d. OBJECTIVE: VITAL SIGNS: Heart rate is around 100 to 110 beats per minute, blood pressure is 106/59, respiratory rate is 24. CHEST: Reveals occasional rhonchi bilaterally. HEART: Reveals first and second heart sounds, irregular rhythm. Systolic murmur at the left lower sternal border. ABDOMEN: Soft. EXTREMITIES: Reveals 1+ pitting edema bilaterally. ASSESSMENT: 1. Atrial fibrillation with poorly controlled ventricular rate. 2. Vent requiring respiratory failure. 3. Renal failure. PLAN: I am going to increase the dose of metoprolol to 25 t.i.d. MMODL / JAVADN: [id number] /
[2024-12-10] MEDS: CISATRACURIUM 2 MG/ML 5 ML VIAL IV ONE (11:24)
[2024-12-10 12:09] LABS: Glucose,Whole Blood 136 mg/dL (70-110)
--- NOTE | 2024-12-10 12:24 | P.PN ---
Subjective Progress Note Date: 12/10/24 Principal diagnosis: Respiratory failure. This is an 84-year-old white male familiar to my service, patient was recently seen in the hospital for MRSA bacteremia, workup for endocarditis and transesophageal echocardiogram was unremarkable and there was no evidence of vegetations. Patient was [facility] to [facility] on vancomycin and he had a PICC line in place. His transesophageal echo on his last admission showed ejection fraction of 45%, patient is also known to have history of paroxysmal atrial fibrillation as well as history of hereditary factor VIII deficiency. In addition to all of this the patient is known to have history of mild COPD, hiatal hernia, hypertension, and yesterday [facility] was concerned about the patient having episodes of shortness of breath. Patient received diuretics, received bronchodilators, this was done upon arrival to the ER, patient developed worsening atrial fibrillation with RVR. I was notified about this patient from the ER, initially recommended amiodarone and amiodarone drip because of his atrial fibrillation with RVR, cardiology was consulted, his oxygenation while in the ER was getting worse in spite of diuretics his chest x- ray did not show any evidence of significant pulmonary edema, patient was intubated shortly after upon my recommendation, and arrangements made for the patient to transfer to the ICU late at night. In the meantime patient was noted to have leukocytosis, WBC count as high as 43.6, hemoglobin was 12.2. Basic metabolic profile was normal except for slightly low bicarb of 18 BUN 35 crea tinine 1.28. Chest x-ray this morning showed normal pulmonary vasculature there was no clear-cut evidence of pneumonia or any pleural effusion, no evidence of congestive heart failure, patient did receive multiple fluid boluses yesterday for low blood pressure after intubation. Today the patient is on assist-control rate of 24 tidal volume 500 FiO2 90% and PEEP of 8 which I increased to 10 ABG r emains marginal with a pO2 of 85 pCO2 44 pH of 7.31 patient has been on Xarelto for history of chronic atrial fibrillation presently I would recommend that we place the patient on heparin, patient is still receiving amiodarone at 0.5 mg/min he is also on norepinephrine at 0.06 mcg/kg/min propofol at 50 mcg/kg/min IV fluid 100 cc/h 0.9 normal saline. Went ahead and establish a right radial arterial line, patient does have a PICC line in place hence no need to change PICC line unless the patient comes back with positive blood cultures. In the meantime we are recommending cefepime and vancomycin. 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 Knowing this, possibility of pulmonary embolism is likely and I am recommending that we heparinized the patient for now, once his renal functioning improved may consider sending him down for a CT angiogram of the chest. Seen today on 12/08/2024, patient remains in the ICU, intubated mechanically ventilated, he is on assist-control rate of 24 tidal volume 500 FiO2 90% PEEP of 12 ABG showed a pO2 of 125 pCO2 50 pH of 7.25 hence tidal volume was increased to 550, FiO2 was cut down to 60%, kept the PEEP at 12. Chest x-ray is showing evidence of worsening interstitial edema. Patient is on diuretics Lasix 80 mg IV push twice daily. Patient is still requiring pressors he is on norepinephrine at 0.06 mcg/kg/min propofol at 30 mcg/kg/min IV fluid was 100 cc/h, however considering his chest x-ray I recommended we cut it down to KVO. Patient remains on amiodarone at 0.5 mg/min antibiotics schaefer he is on cefepime and vancomycin patient had recent MRSA bacteremia he is also on Tamiflu for acute influenza. For his DVT and possible pulmonary embolism patient remains on heparin as per protocol. Patient is sedated, still hemodynamically unstable requiring norepinephrine, patient is receiving GI DVT prophylaxis is also on enteral feeding for nutritional support. Blood cultures are still pending no plans to address weaning today since the patient is still requiring relatively high FiO2 and high PEEP. Renal functioning seems to be a bit worse, being addressed by nephrology on the case. Patient may have developed acute kidney injury, likely cardiorenal in nature. And could be related to his low blood pressure on presentation /acute tubular necrosis. 12/09/2024: Patient remains in the ICU, intubated mechanically ventilated, he is on assist-control rate of rr 24 tidal volume 550, peep at 12, fio2 60. ABG showe d pO2 of 72, pCO2 43, and pH of 7.32. Overnight heart rate was in the 140s, Dr. Taylor was called and he gave Lopressor PO. CXR showing evidence of stable interstitial pattern with small effusion and basilar subsegmental consolidation. Patient had lower extremity Doppler on 12/07 showing chronic nonoccluding right lower extremity DVT for which she remains on heparin as per protocol. Patient is sedated, still hemodynamically unstable requiring norepinephrine, patient is receiving GI DVT prophylaxis and is also on enteral feeding 25 at goal. Fluid balance is approximately positive 1 L in the last 24 hours. Levo at 7.63 mg/min, heprin at 10, amio at .5, prop 50. Lasix at 80 IV BID. Preliminary Gram stain showed Pseudomonas and blood cultures have been negative through 48 hours. . Creatinine today 2.58 which is increased from yesterday of 1.89. Nephrology is following, they added 2 amp sodium bicarb IV push yesterday and stopped Cozaar, Aldactone, and Farxiga. Nephrology considers DEENA secondary to ATN secondary to septic shock as patient's baseline creatinine is usually near 1. Progress note dated December 10, 2024. 84-year-old male seen today in room 254. He remains on the mechanical ventilator. He is on volume assist-control mode, rate 24, tidal volume 450, FiO2 60%, PEEP of 12. Blood gases show a pO2 of 75, pCO2 of 53, pH of 7.23. The patient is getting saline at 20 cc an hour, propofol at 20 mcg/kg/min, Levophed at 2 mcg/min. In addition, the patient is getting heparin via weight- based protocol, and vital AF at 25 cc an hour which is goal. The patient continues on Tamiflu, and cefepime. His peak airway pressures 33, with a plateau pressure of 22. Current labs include a white count of 27.5, hemoglobin 11.6, hematocrit 36.2, and a platelet count of 139,000. PTT is 46.6. Sodium 134, potassium 4.8, chlorides 101, CO2 21, BUN 68, and creatinine 3.51. Glucose is 136. Calcium is 8. Sputum from December 06 is positive for Pseudomonas aeruginosa. Chest x-ray earlier from this morning, shows a stable interstitial pattern with small effusion. Chest x-ray after central line insertion shows a properly placed central line, with the tip of the catheter at the junction of superior vena cava and right atrium. Objective - Vital Signs Vital signs: Vital Signs Temp 97.5 F L 12/10/24 12:00 Pulse 98 12/10/24 12:00 Resp 24 12/10/24 12:00 BP 106/82 12/09/24 09:15 Pulse Ox 94 L 12/10/24 12:00 FiO2 60 12/10/24 12:00 Intake & Output 12/09/24 12/10/24 12/10/24 18:59 06:59 18:59 Intake Total 808.435 502.009 622.591 Output Total 415 275 172 Balance 393.435 227.009 450.591 Weight 122.924 kg 123.4 kg Intake: IV 156 156 178 Cefepime 2 gm In Sodium 100 Chloride 0.9% 100 ml @ 25 mls/hr IVPB Q12H [facility] Rx# :[id number] Pressure Bag 36 36 18 kvo 120 120 60 Intake, IV Titration 652.435 191.009 234.591 Amount Heparin Sod,Pork in 0.45% 153.167 NaCl 25,000 unit In 0.45 % NaCl 1 250ml.bag @ 8. 889 UNITS/KG/HR 10 mls/hr IV .Q24H [facility] Rx#: [id number] Norepinephrine 4 mg In 235.475 0 142.058 Sodium Chloride 0.9% 250 ml @ 0.03 MCG/KG/MIN 12. 443 mls/hr IV .[id number] [facility] Rx#:[id number] propofoL 1,000 mg In 263.793 191.009 92.533 Empty Bag 1 bag @ 15 MCG/ KG/MIN 9.798 mls/hr IV . [id number] [facility] Rx#:[id number] Tube Feeding 125 150 Other 30 60 Output: Urine 415 275 172 Other: Voiding Method Indwelling Catheter Indwelling Catheter Indwelling Catheter ABP, PAP, CO, CI - Last Documented Arterial Blood Pressure 113/57 - Exam No acute distress, sedated, with an orally placed endotracheal tube. HEENT examination is grossly unremarkable. Mucous membranes are moist. No oral lesions. Neck supple. Full range of motion. No adenopathy thyromegaly or neck vein distention. Cardiovascular examination reveals regular rhythm rate. S1-S2 normal. No S3 or S4. No discernible murmur noted. Lungs reveal scattered coarse rhonchi. Crackles are appreciated. No wheezes. Breath sounds are equal. Abdomen soft bowel sounds are heard. No masses or tenderness. Extremities are intact. No cyanosis or clubbing. Diffuse anasarca is noted. Skin is without rash or lesion. Neurologic examination cannot be assessed at this time. - Labs CBC & Chem 7: 12/10/24 06:00 12/10/24 06:00 Labs: Abnormal Lab Results - Last 24 Hours (Table) 12/09/24 12/09/24 12/10/24 Range/Units 17:49 23:20 05:07 WBC (3.8-10.6) k/uL RBC (4.30-5.90) m/uL Hgb (13.0-17.5) gm/dL Hct (39.0-53.0) % RDW (11.5-15.5) % Plt Count (150-450) k/uL Neutrophils # (1.3-7.7) k/uL Lymphocytes # (1.0-4.8) k/uL APTT (22.0-30.0) sec ABG pH 7.23 L (7.35-7.45) ABG pCO2 53 H (35-45) mmHg ABG pO2 75 L (83-108) mmHg ABG O2 Saturation 93.7 L (94-97) % Hemoglobin 11.3 L (13.0-17.5) gm/dL Sodium (137-145) mmol/L Carbon Dioxide (22-30) mmol/L BUN (9-20) mg/dL Creatinine (0.66-1.25) mg/dL Glucose (74-99) mg/dL POC Glucose (mg/dL) 146 H 130 H (70-110) mg/dL Calcium (8.4-10.2) mg/dL 12/10/24 12/10/24 12/10/24 Range/Units 06:00 06:00 07:28 WBC 27.5 H (3.8-10.6) k/uL RBC 4.05 L (4.30-5.90) m/uL Hgb 11.6 L (13.0-17.5) gm/dL Hct 36.2 L (39.0-53.0) % RDW 15.8 H (11.5-15.5) % Plt Count 139 L (150-450) k/uL Neutrophils # 26.6 H (1.3-7.7) k/uL Lymphocytes # 0.4 L (1.0-4.8) k/uL APTT 46.6 H (22.0-30.0) sec ABG pH (7.35-7.45) ABG pCO2 (35-45) mmHg ABG pO2 (83-108) mmHg ABG O2 Saturation (94-97) % Hemoglobin (13.0-17.5) gm/dL Sodium 134 L (137-145) mmol/L Carbon Dioxide 21 L (22-30) mmol/L BUN 68 H (9-20) mg/dL Creatinine 3.51 H (0.66-1.25) mg/dL Glucose 142 H (74-99) mg/dL POC Glucose (mg/dL) (70-110) mg/dL Calcium 8.0 L (8.4-10.2) mg/dL 12/10/24 Range/Units 12:08 WBC (3.8-10.6) k/uL RBC (4.30-5.90) m/uL Hgb (13.0-17.5) gm/dL Hct (39.0-53.0) % RDW (11.5-15.5) % Plt Count (150-450) k/uL Neutrophils # (1.3-7.7) k/uL Lymphocytes # (1.0-4.8) k/uL APTT (22.0-30.0) sec ABG pH (7.35-7.45) ABG pCO2 (35-45) mmHg ABG pO2 (83-108) mmHg ABG O2 Saturation (94-97) % Hemoglobin (13.0-17.5) gm/dL Sodium (137-145) mmol/L Carbon Dioxide (22-30) mmol/L BUN (9-20) mg/dL Creatinine (0.66-1.25) mg/dL Glucose (74-99) mg/dL POC Glucose (mg/dL) 136 H (70-110) mg/dL Calcium (8.4-10.2) mg/dL Microbiology - Last 24 Hours (Table) 12/07/24 09:37 Blood Culture - Preliminary Blood 12/06/24 20:40 Gram Stain - Final Sputum Sputum Culture - Final Pseudomonas aeruginosa Assessment and Plan Assessment: Acute hypoxemic respiratory failure, currently maintained on mechanical ventilation. Persistent sepsis and septic shock, secondary to MRSA bacteremia. Moderate LV dysfunction, with diffuse interstitial edema. Acute kidney injury secondary to hypotension, and possible acute tubular necrosis. History of atrial fibrillation with RVR. Acute on chronic systolic congestive heart failure. COPD exacerbation. History of BPH. History of factor VIII deficiency. Possible pulmonary embolism. History of DVT. Benign essential hypertension. Acute influenza A infection. History of previous right total hip arthroplasty. Plan: Plan dated December 10, 2024. The patient is seen today in room 254. He had an uneventful night according to the nurses. The patient continues on mechanical ventilation. Blood gases show pO2 of 75, pCO2 of 53, pH is 7.23. The patient continues on propofol, and a small amount of Levophed at 2 mcg/min. The patient continues on heparin via weight-based protocol. In addition, the patient continues on Tamiflu, and cefepime. Respiratory mechanics reveal a peak airway pressure of 33 cm of water, and a plateau pressure of 22 cm of water. The patient is receiving tube feedings with vital AF at goal, which is 25 cc an hour. Labs, x-rays, and all medications are reviewed. Prognosis is guarded. The patient does continue on GI and DVT prophylaxis. Time with Patient: Greater than 30
[2024-12-10] MEDS: FUROSEMIDE 100 MG in SODIUM CHLORIDE 0.9% 90 ML IV SCH (12:31)
--- NOTE | 2024-12-10 12:39 | XR ---
EXAMINATION TYPE: XR chest 1V portable DATE OF EXAM: 12/10/2024 COMPARISON: 12/10/2024 CLINICAL INDICATION: Male, 84 years old with history of central line placement; , TECHNIQUE: XR chest 1V portable views of the chest. FINDINGS: The heart is enlarged and there is a diffuse interstitial pattern. ET, NG tube and central line stabl e. Atherosclerotic change aorta. Tiny bilateral pleural effusion. No pneumothorax. Degenerative blake e of the spine. Left-sided PICC line with tip overlying SVC. Bilateral consolidation is a small right pleural effusion. More nodular area of consolidation now seen right lung base. IMPRESSION: 1. Persistent interstitial pattern with small effusion and basilar subsegmental consolidation. Interv al development of increased consolidation right lung base. Correlate for mild CHF otherwise consider infectious etiology pneumonia. 2. Left-sided PICC line with the tip overlying the SVC. [facility], , 12/10/2024 12:37 PM
--- NOTE | 2024-12-10 12:50 | PCN ---
PROCEDURE NOTE PROCEDURE PERFORMED: Left internal jugular triple-lumen catheter insertion. PREOPERATIVE DIAGNOSIS: Administration of fluids and pressors. POSTOPERATIVE DIAGNOSIS: Administration of fluids and pressors. There was informed consent and universal timeout. The patient's procedure was done in room 254. OPERATORS: Dr. Welsh, Dr. Borja, and Dr. Rutledge. TRIPLE LUMEN CATHETER PLACEMENT: Indication: Hemodynamic monitoring/Intravenous access. A time-out was completed verifying correct patient, procedure, site, positioning, and implant(s) or special equipment if applicable. The patient was placed in a dependent position appropriate for triple lumen catheter placement based on the vein to be cannulated. The patient's left shoulder or left neck or left groin was prepped and draped in sterile fashion. 1% Lidocaine was used to anesthetize the surrounding skin area. A triple lumen 9F Cordis catheter was introduced into the left internal jugular vein using Seldinger technique. The catheter was threaded smoothly over the guide wire and appropriate blood return was obtained. Each lumen of the catheter was evacuated of air and flushed with sterile saline. The catheter was then sutured in place to the skin and a sterile dressing applied. Perfusion to the extremity distal to the point of catheter insertion was checked and found to be adequate. We used the internal jugular site on the left. We went via the posterior approach. There was good blood return from all 3 ports. The patient tolerated the procedure well. The catheter was sutured in place and sterile dressing was applied by the nurse. There was no immediate complication. A chest x-ray was ordered. The tip of the catheter was seen in the area of the right atrium superior vena cava. MMODL / IJN: [id number] /
--- NOTE | 2024-12-10 14:27 | P.PN ---
Subjective Progress Note Date: 12/10/24 Principal diagnosis: Reason for follow-up is acute influenza A/Pseudomonas pneumonia Patient is a 84-year-old male with a past medical history significant for atrial fibrillation diabetes mellitus DVT hypertension hyperlipidemia recent admission to the hospital diagnosed with MRSA bacteremia source was likely pneumonia, did have a negative LIS presenting back to the hospital for increasing shortness of breath has been diagnosed with sepsis secondary pneumonia also tested positive for influenza A sputum showing Pseudomonas. On today's evaluation that is 12/10/2024, Patient is afebrile this morning patient remains to be debated on the vent FiO2 slightly up to 60% however no significant purulent secretion through the ET patient required low-dose pressor support no other changes reported by the nursing staff. Patient white count is down to 27.5 creatinine is 3.51 Objective - Vital Signs Vital signs: Vital Signs Temp 97.5 F L 12/10/24 12:00 Pulse 99 12/10/24 12:34 Resp 24 12/10/24 12:00 BP 106/82 12/09/24 09:15 Pulse Ox 94 L 12/10/24 12:00 FiO2 60 12/10/24 12:00 Intake & Output 12/09/24 12/10/24 12/10/24 18:59 06:59 18:59 Intake Total 808.435 502.009 696.182 Output Total 415 275 172 Balance 393.435 227.009 524.182 Weight 122.924 kg 123.4 kg Intake: IV 156 156 178 Cefepime 2 gm In Sodium 100 Chloride 0.9% 100 ml @ 25 mls/hr IVPB Q12H [facility] Rx# :[id number] Pressure Bag 36 36 18 kvo 120 120 60 Intake, IV Titration 652.435 191.009 308.182 Amount Heparin Sod,Pork in 0.45% 153.167 NaCl 25,000 unit In 0.45 % NaCl 1 250ml.bag @ 8. 889 UNITS/KG/HR 10 mls/hr IV .Q24H [facility] Rx#: [id number] Norepinephrine 4 mg In 235.475 0 142.058 Sodium Chloride 0.9% 250 ml @ 0.03 MCG/KG/MIN 12. 443 mls/hr IV .[id number] [facility] Rx#:[id number] propofoL 1,000 mg In 263.793 191.009 166.124 Empty Bag 1 bag @ 15 MCG/ KG/MIN 9.798 mls/hr IV . [id number] [facility] Rx#:[id number] Tube Feeding 125 150 Other 30 60 Output: Urine 415 275 172 Other: Voiding Method Indwelling Catheter Indwelling Catheter Indwelling Catheter ABP, PAP, CO, CI - Last Documented Arterial Blood Pressure 113/57 - Exam GENERAL DESCRIPTION: An elderly male intubated on the vent RESPIRATORY SYSTEM: Unlabored breathing , decreased breath sounds at bases HEART: S1 S2 regular rate and rhythm , ABDOMEN: Soft , no tenderness EXTREMITIES: Mild swelling to the leg no redness - Labs CBC & Chem 7: 12/10/24 06:00 12/10/24 06:00 Labs: Abnormal Lab Results - Last 24 Hours (Table) 12/09/24 12/09/24 12/10/24 Range/Units 17:49 23:20 05:07 WBC (3.8-10.6) k/uL RBC (4.30-5.90) m/uL Hgb (13.0-17.5) gm/dL Hct (39.0-53.0) % RDW (11.5-15.5) % Plt Count (150-450) k/uL Neutrophils # (1.3-7.7) k/uL Lymphocytes # (1.0-4.8) k/uL APTT (22.0-30.0) sec ABG pH 7.23 L (7.35-7.45) ABG pCO2 53 H (35-45) mmHg ABG pO2 75 L (83-108) mmHg ABG O2 Saturation 93.7 L (94-97) % Hemoglobin 11.3 L (13.0-17.5) gm/dL Sodium (137-145) mmol/L Carbon Dioxide (22-30) mmol/L BUN (9-20) mg/dL Creatinine (0.66-1.25) mg/dL Glucose (74-99) mg/dL POC Glucose (mg/dL) 146 H 130 H (70-110) mg/dL Calcium (8.4-10.2) mg/dL 12/10/24 12/10/24 12/10/24 Range/Units 06:00 06:00 07:28 WBC 27.5 H (3.8-10.6) k/uL RBC 4.05 L (4.30-5.90) m/uL Hgb 11.6 L (13.0-17.5) gm/dL Hct 36.2 L (39.0-53.0) % RDW 15.8 H (11.5-15.5) % Plt Count 139 L (150-450) k/uL Neutrophils # 26.6 H (1.3-7.7) k/uL Lymphocytes # 0.4 L (1.0-4.8) k/uL APTT 46.6 H (22.0-30.0) sec ABG pH (7.35-7.45) ABG pCO2 (35-45) mmHg ABG pO2 (83-108) mmHg ABG O2 Saturation (94-97) % Hemoglobin (13.0-17.5) gm/dL Sodium 134 L (137-145) mmol/L Carbon Dioxide 21 L (22-30) mmol/L BUN 68 H (9-20) mg/dL Creatinine 3.51 H (0.66-1.25) mg/dL Glucose 142 H (74-99) mg/dL POC Glucose (mg/dL) (70-110) mg/dL Calcium 8.0 L (8.4-10.2) mg/dL 12/10/24 Range/Units 12:08 WBC (3.8-10.6) k/uL RBC (4.30-5.90) m/uL Hgb (13.0-17.5) gm/dL Hct (39.0-53.0) % RDW (11.5-15.5) % Plt Count (150-450) k/uL Neutrophils # (1.3-7.7) k/uL Lymphocytes # (1.0-4.8) k/uL APTT (22.0-30.0) sec ABG pH (7.35-7.45) ABG pCO2 (35-45) mmHg ABG pO2 (83-108) mmHg ABG O2 Saturation (94-97) % Hemoglobin (13.0-17.5) gm/dL Sodium (137-145) mmol/L Carbon Dioxide (22-30) mmol/L BUN (9-20) mg/dL Creatinine (0.66-1.25) mg/dL Glucose (74-99) mg/dL POC Glucose (mg/dL) 136 H (70-110) mg/dL Calcium (8.4-10.2) mg/dL Microbiology - Last 24 Hours (Table) 12/07/24 09:37 Blood Culture - Preliminary Blood 12/06/24 20:40 Gram Stain - Final Sputum Sputum Culture - Final Pseudomonas aeruginosa Assessment and Plan (1) Influenza A Current Visit: Yes Status: Acute Code(s): J10.1 - FLU DUE TO OTH IDENT INFLUENZA VIRUS W OTH RESP MANIFEST SNOMED Code(s): 582751728 (2) Leukocytosis Current Visit: Yes Status: Acute Code(s): D72.829 - ELEVATED WHITE BLOOD CELL COUNT, UNSPECIFIED SNOMED Code(s): 646099820 (3) Pneumonia Current Visit: No Status: Acute Code(s): J18.9 - PNEUMONIA, UNSPECIFIED ORGANISM SNOMED Code(s): 032750407 (4) Sepsis Current Visit: No Status: Acute Code(s): A41.9 - SEPSIS, UNSPECIFIED ORGANISM SNOMED Code(s): 47488234 Plan: 1patient presented to hospital with sepsis in this patient who did have hypotension requiring pressor support elevated white count source is multifactorial possible component of pneumonia with the sputum not showing Pseudomonas aeruginosa and recently did have a history of MRSA pneumonia for the patient has received adequate vancomycin which has been discontinued. 2 Patient with acute influenza A, patient is covered with Tamiflu to finish a 5-day course of therapy 3-patient with Pseudomonas pneumonia for the patient is currently covered with cefepime dose adjusted to the kidney function Dictation was produced using [employer] dictation software. please excuse any grammatical, word or spelling errors. Time with Patient: Less than 30
[2024-12-10 17:49] LABS: Glucose,Whole Blood 147 mg/dL (70-110)
[2024-12-10] MEDS: SODIUM CHLORIDE 0.9% 500 ML 500 ML IV SCH (19:03)
--- NOTE | 2024-12-10 19:52 | P.PN ---
Subjective Patient is seen for follow-up for acute kidney injury. Patient remains on the vent. FiO2 at 60% with PEEP of 12. Urine output at about 30 cc an hour. No pressors today. Chest x-ray shows bilateral interstitial pattern. Serum creatinine increased to 3.5 today. Objective - Vital Signs Vital signs: Vital Signs Temp 98 F 12/10/24 16:00 Pulse 108 H 12/10/24 19:00 Resp 24 12/10/24 19:00 BP 106/82 12/09/24 09:15 Pulse Ox 96 12/10/24 19:00 FiO2 60 12/10/24 19:00 Intake & Output 12/10/24 12/10/24 12/11/24 06:59 18:59 06:59 Intake Total 020.640 8104.580 48 Output Total 275 285 12 Balance 168.509 3451.580 36 Weight 123.4 kg Intake: IV 156 316 23 Cefepime 2 gm In Sodium 100 Chloride 0.9% 100 ml @ 25 mls/hr IVPB Q12H [facility] Rx# :[id number] Pressure Bag 36 36 3 kvo 120 180 20 Intake, IV Titration 191.009 754.580 Amount Furosemide 100 mg In 56.167 Sodium Chloride 0.9% 90 ml @ 10 MG/HR 10 mls/hr IV .Q10H [facility] Rx#: [id number] Heparin Sod,Pork in 0.45% 250 NaCl 25,000 unit In 0.45 % NaCl 1 250ml.bag @ 8. 889 UNITS/KG/HR 10 mls/hr IV .Q24H [facility] Rx#: [id number] Norepinephrine 4 mg In 0 182.289 Sodium Chloride 0.9% 250 ml @ 0.03 MCG/KG/MIN 12. 443 mls/hr IV .[id number] [facility] Rx#:[id number] propofoL 1,000 mg In 191.009 266.124 Empty Bag 1 bag @ 15 MCG/ KG/MIN 9.798 mls/hr IV . [id number] [facility] Rx#:[id number] Tube Feeding 125 300 25 Other 30 90 Output: Urine 275 285 12 Other: Voiding Method Indwelling Catheter Indwelling Catheter ABP, PAP, CO, CI - Last Documented Arterial Blood Pressure 104/55 - Exam Patient is on the vent. Examination of the heart S1 and S2 Examination of the lungs bilateral breath sounds are heard Abdomen is soft nontender Examination of lower extremities shows edema 1+ bilaterally. - Labs CBC & Chem 7: 12/10/24 06:00 12/10/24 06:00 Labs: Abnormal Lab Results - Last 24 Hours (Table) 12/09/24 12/10/24 12/10/24 Range/Units 23:20 05:07 06:00 WBC 27.5 H (3.8-10.6) k/uL RBC 4.05 L (4.30-5.90) m/uL Hgb 11.6 L (13.0-17.5) gm/dL Hct 36.2 L (39.0-53.0) % RDW 15.8 H (11.5-15.5) % Plt Count 139 L (150-450) k/uL Neutrophils # 26.6 H (1.3-7.7) k/uL Lymphocytes # 0.4 L (1.0-4.8) k/uL APTT (22.0-30.0) sec ABG pH 7.23 L (7.35-7.45) ABG pCO2 53 H (35-45) mmHg ABG pO2 75 L (83-108) mmHg ABG O2 Saturation 93.7 L (94-97) % Hemoglobin 11.3 L (13.0-17.5) gm/dL Sodium (137-145) mmol/L Carbon Dioxide (22-30) mmol/L BUN (9-20) mg/dL Creatinine (0.66-1.25) mg/dL Glucose (74-99) mg/dL POC Glucose (mg/dL) 130 H (70-110) mg/dL Calcium (8.4-10.2) mg/dL 12/10/24 12/10/24 12/10/24 Range/Units 06:00 07:28 12:08 WBC (3.8-10.6) k/uL RBC (4.30-5.90) m/uL Hgb (13.0-17.5) gm/dL Hct (39.0-53.0) % RDW (11.5-15.5) % Plt Count (150-450) k/uL Neutrophils # (1.3-7.7) k/uL Lymphocytes # (1.0-4.8) k/uL APTT 46.6 H (22.0-30.0) sec ABG pH (7.35-7.45) ABG pCO2 (35-45) mmHg ABG pO2 (83-108) mmHg ABG O2 Saturation (94-97) % Hemoglobin (13.0-17.5) gm/dL Sodium 134 L (137-145) mmol/L Carbon Dioxide 21 L (22-30) mmol/L BUN 68 H (9-20) mg/dL Creatinine 3.51 H (0.66-1.25) mg/dL Glucose 142 H (74-99) mg/dL POC Glucose (mg/dL) 136 H (70-110) mg/dL Calcium 8.0 L (8.4-10.2) mg/dL 12/10/24 Range/Units 17:49 WBC (3.8-10.6) k/uL RBC (4.30-5.90) m/uL Hgb (13.0-17.5) gm/dL Hct (39.0-53.0) % RDW (11.5-15.5) % Plt Count (150-450) k/uL Neutrophils # (1.3-7.7) k/uL Lymphocytes # (1.0-4.8) k/uL APTT (22.0-30.0) sec ABG pH (7.35-7.45) ABG pCO2 (35-45) mmHg ABG pO2 (83-108) mmHg ABG O2 Saturation (94-97) % Hemoglobin (13.0-17.5) gm/dL Sodium (137-145) mmol/L Carbon Dioxide (22-30) mmol/L BUN (9-20) mg/dL Creatinine (0.66-1.25) mg/dL Glucose (74-99) mg/dL POC Glucose (mg/dL) 147 H (70-110) mg/dL Calcium (8.4-10.2) mg/dL Microbiology - Last 24 Hours (Table) 12/07/24 09:37 Blood Culture - Preliminary Blood Assessment and Plan Assessment: 1. Acute kidney injury secondary to ATN secondary to septic shock. Baseline creatinine near 1 and is 3.5 today. Nonoliguric. No hydronephrosis noted on kidney ultrasound. 2. Acute hypoxic respiratory failure secondary to pneumonia. 3. Septic shock. Patient with influenza A pneumonia and sputum culture positive for Pseudomonas. 4. Metabolic acidosis secondary to acute kidney injury. Better. 5. A-fib with RVR maintained on oral amiodarone. 6. Cardiomyopathy with ejection fraction of 40 to 45%. 7. Fluid overload. Plan: Increase diuretics. Patient will be switched to Lasix drip. We will proceed with renal replacement therapy if there is no improvement in urine output.
[2024-12-10] MEDS: polyethylene glycoL 3350 17 GM POWD.PACK PO PRN (21:36)
[2024-12-10 23:31] LABS: Glucose,Whole Blood 155 mg/dL (70-110)
[2024-12-11 04:57] LABS: Basophils % (A) 0 %; Eosinophils % (A) 0 %; HCT 34.7 % (39.0-53.0); HGB 10.8 gm/dL (13.0-17.5); Hypochromasia Moderate; Lymphocytes # (A) 0.3 k/uL (1.0-4.8); Lymphocytes % (A) 2 %; MCH 27.9 pg (25.0-35.0); Mean Platelet Volume 8.7; Monocytes # (A) 0.3 k/uL (0-1.0); Monocytes % (A) 2 %; Neutrophils # (A) 17.7 k/uL (1.3-7.7); Neutrophils % (A) 96 %; Platelet Count 115 k/uL (150-450); RBC 3.86 m/uL (4.30-5.90); RDW 15.9 % (11.5-15.5); WBC 18.4 k/uL (3.8-10.6)
[2024-12-11 05:13] LABS: African American GFR (CKD) 14 (>60 ml/min/1.73 sqM); Anion Gap 11 mmol/L; Blood Urea Nitrogen 89 mg/dL (9-20); Calcium 7.9 mg/dL (8.4-10.2); Carbon Dioxide 20 mmol/L (22-30); Chloride 100 mmol/L (98-107); Glucose 138 mg/dL (74-99); Non-African American GFR(CKD) 12 (>60 ml/min/1.73 sqM); Potassium 5.5 mmol/L (3.5-5.1); Sodium 131 mmol/L (137-145)
--- NOTE | 2024-12-11 06:59 | XR ---
EXAMINATION TYPE: XR chest 1V portable DATE OF EXAM: 12/11/2024 5:16 AM COMPARISON: Chest radiograph from one day prior. CLINICAL INDICATION: Male, 84 years old with history of mechanical ventilation; [facility] TECHNIQUE: XR chest 1V portable Frontal view of the chest. FINDINGS: Lungs/Pleura: No evidence of focal consolidation or pneumothorax. Blunting of the costophrenic angles is present. Pulmonary vascularity: Pulmonary vascular congestion. Heart/mediastinum: Cardiomediastinal silhouette is unremarkable. Musculoskeletal: No acute osseous pathology. Other findings: None Lines/Tubes: Endotracheal tube with distal tip 4.30cm above the landen. Nasogastric tube with its distal tip and side-port projecting under the diaphragm. Left internal jugular central venous catheter with distal tip at the cavoatrial junction. Left-sided PICC with distal tip at the superior vena cava/brachiocephalic confluence. IMPRESSION: Similar Cardiomegaly, pulmonary vascular congestion and bilateral pleural effusions. Correlate with [employer] for congestive heart failure. [facility], , 12/11/2024 6:57 AM
[2024-12-11 08:02] LABS: ABG Base Excess -7.8 mmol/L; ABG HCO3 20 mmol/L (21-25); ABG Oxygen Saturation 97.2 % (94-97); ABG PCO2 51 mmHg (35-45); ABG PH 7.21 (7.35-7.45); ABG PO2 96 mmHg (83-108); ABG TCO2 22 mmol/L (19-24)
[2024-12-11 08:04] LABS: Allen Test Performed? no
[2024-12-11] MEDS: DEXTROSE 50% SYRINGE 50 ML IVP STA (08:32)
[2024-12-11] MEDS: INSULIN REGULAR 100 UNIT/ML VIAL (IV) IV ONE (08:32)
[2024-12-11] MEDS: SENNOSIDES 8.6 MG TAB PO SCH (09:54)
[2024-12-11] MEDS: HEPARIN SODIUM 1,000 UN/ML (10ML VL) IVP ONE (10:45)
--- NOTE | 2024-12-11 11:16 | P.PN ---
Subjective Principal diagnosis: Respiratory failure. This is an 84-year-old white male familiar to my service, patient was recently seen in the hospital for MRSA bacteremia, workup for endocarditis and transesophageal echocardiogram was unremarkable and there was no evidence of vegetations. Patient was discharged to skilled nursing on vancomycin and he had a PICC line in place. His transesophageal echo on his last admission showed ejection fraction of 45%, patient is also known to have history of paroxysmal atrial fibrillation as well as history of hereditary factor VIII deficiency. In addition to all of this the patient is known to have history of mild COPD, hiatal hernia, hypertension, and yesterday skilled nursing was concerned about the patient having episodes of shortness of breath. Patient received diuretics, received bronchodilators, this was done upon arrival to the ER, patient developed worsening atrial fibrillation with RVR. I was notified about this patient from the ER, initially recommended amiodarone and amiodarone drip because of his atrial fibrillation with RVR, cardiology was consulted, his oxygenation while in the ER was getting worse in spite of diuretics his chest x- ray did not show any evidence of significant pulmonary edema, patient was intubated shortly after upon my recommendation, and arrangements made for the patient to transfer to the ICU late at night. In the meantime patient was noted to have leukocytosis, WBC count as high as 43.6, hemoglobin was 12.2. Basic metabolic profile was normal except for slightly low bicarb of 18 BUN 35 creatinine 1.28. Chest x-ray this morning showed normal pulmonary vasculature there was no clear-cut evidence of pneumonia or any pleural effusion, no eviden ce of congestive heart failure, patient did receive multiple fluid boluses yesterday for low blood pressure after intubation. Today the patient is on assist-control rate of 24 tidal volume 500 FiO2 90% and PEEP of 8 which I increased to 10 ABG remains marginal with a pO2 of 85 pCO2 44 pH of 7.31 patient has been on Xarelto for history of chronic atrial fibrillation presently I would recommend that we place the patient on heparin, patient is still receiving amiodarone at 0.5 mg/min he is also on norepinephrine at 0.06 mcg/kg/min propofol at 50 mcg/kg/min IV fluid 100 cc/h 0.9 normal saline. Went ahead and establish a right radial arterial line, patient does have a PICC line in place hence no need to change PICC line unless the patient comes back with positive blood cultures. In the meantime we are recommending cefepime and vancomycin. 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 Knowing this, possibility of pulmonary embolism is likely and I am recommending that we heparinized the patient for now, once his renal functioning improved may consider sending him down for a CT angiogram of the chest. Seen today on 12/08/2024, patient remains in the ICU, intubated mechanically ventilated, he is on assist-control rate of 24 tidal volume 500 FiO2 90% PEEP of 12 ABG showed a pO2 of 125 pCO2 50 pH of 7.25 hence tidal volume was increased to 550, FiO2 was cut down to 60%, kept the PEEP at 12. Chest x-ray is showing evidence of worsening interstitial edema. Patient is on diuretics Lasix 80 mg IV push twice daily. Patient is still requiring pressors he is on norepinephrine at 0.06 mcg/kg/min propofol at 30 mcg/kg/min IV fluid was 100 cc/h, however considering his chest x-ray I recommended we cut it down to KVO. Patient remains on amiodarone at 0.5 mg/min antibiotics schaefer he is on cefepime and vancomycin patient had recent MRSA bacteremia he is also on Tamiflu for acute influenza. For his DVT and possible pulmonary embolism patient remains on heparin as per protocol. Patient is sedated, still hemodynamically unstable requiring norepinephrine, patient is receiving GI DVT prophylaxis is also on enteral feeding for nutritional support. Blood cultures are still pending no plans to address weaning today since the patient is still requiring relatively high FiO2 and high PEEP. Renal functioning seems to be a bit worse, being addressed by nephrology on the case. Patient may have developed acute kidney injury, likely cardiorenal in nature. And could be related to his low blood pressure on presentation /acute tubular necrosis. 12/09/2024: Patient remains in the ICU, intubated mechanically ventilated, he is on assist-control rate of rr 24 tidal volume 550, peep at 12, fio2 60. ABG showed pO2 of 72, pCO2 43, and pH of 7.32. Overnight heart rate was in the 140s, Dr. Taylor was called and he gave Lopressor PO. CXR showing evidence of stable interstitial pattern with small effusion and basilar subsegmental consolidation. Patient had lower extremity Doppler on 12/07 showing chronic nonoccluding right lower extremity DVT for which she remains on heparin as per protocol. Patient is sedated, still hemodynamically unstable requiring norepinephrine, patient is receiving GI DVT prophylaxis and is also on enteral feeding 25 at goal. Fluid balance is approximately positive 1 L in the last 24 hours. Levo at 7.63 mg/min, heprin at 10, amio at .5, prop 50. Lasix at 80 IV BID. Preliminary Gram stain showed Pseudomonas and blood cultures have been negative through 48 hours. . Creatinine today 2.58 which is increased from yesterday of 1.89. Nephrology is following, they added 2 amp sodium bicarb IV push yesterday and stopped Cozaar, Aldactone, and Farxiga. Nephrology considers DEENA secondary to ATN secondary to septic shock as patient's baseline creatinine is usually near 1. Progress note dated December 10, 2024. 84-year-old male seen today in room 254. He remains on the mechanical ventilator. He is on volume assist-control mode, rate 24, tidal volume 450, FiO2 60%, PEEP of 12. Blood gases show a pO2 of 75, pCO2 of 53, pH of 7.23. The patient is getting saline at 20 cc an hour, propofol at 20 mcg/kg/min, Levophed at 2 mcg/min. In addition, the patient is getting heparin via weight- based protocol, and vital AF at 25 cc an hour which is goal. The patient continues on Tamiflu, and cefepime. His peak airway pressures 33, with a plateau pressure of 22. Current labs include a white count of 27.5, hemoglobin 11.6, hematocrit 36.2, and a platelet count of 139,000. PTT is 46.6. Sodium 134, potassium 4.8, chlorides 101, CO2 21, BUN 68, and creatinine 3.51. Glucose is 136. Calcium is 8. Sputum from December 06 is positive for Pseudomonas a eruginosa. Chest x-ray earlier from this morning, shows a stable interstitial pattern with small effusion. Chest x-ray after central line insertion shows a properly placed central line, with the tip of the catheter at the junction of superior vena cava and right atrium. Progress note dated December 11, 2024. 84-year-old male seen today in room 254. He remains on the mechanical ventilator. He is on volume assist-control mode, rate 28, tidal volume of 450, FiO2 60%, and PEEP of 12. His peak airway pressure is 29, with a plateau pressure of 22. Blood gases show pH 7.2, pCO2 51, pO2 96. The patient is getting NS at 20 cc/h and propofol at 40 mcg/kg/min, no levo since 4 AM this morning. In addition the patient is off heparin currently due to bleeding around central line that was placed yesterday.Vital AF at 25 cc an hour and a goal of 35. The patient continues on cefepime (day 3) and completed Tamiflu. Current labs include WBC of 18.6, hemoglobin of 10.8, hematocrit of 34.7, and platelet count of 115,000. Sodium is 131, potassium 5.5, chloride 100, BUN 89, and creatinine 4.26. Glucose is 138. Calcium 7.9. Urine output remains poor, 690 mL over the last 24 hours. Chest x-ray from earlier from this morning shows blunting of the costophrenic angle, cardiomegaly, pulmonary vascular congestion and bilateral pleural effusions. Patient getting dialysis catheter placed this morning. Physical exam: No acute distress, sedated, with an orally placed endotracheal tube. HEENT examination is grossly unremarkable. Mucous membranes are moist. No oral lesions. Neck supple. Full range of motion. No adenopathy thyromegaly or neck vein distention. Cardiovascular examination reveals regular rhythm rate. S1-S2 normal. No S3 or S4. No discernible murmur noted. Lungs reveal scattered coarse rhonchi. Crackles are appreciated. No wheezes. Breath sounds are equal. Abdomen soft bowel sounds are heard. No masses or tenderness. Extremities are intact. No cyanosis or clubbing. Diffuse anasarca is noted. Skin is without rash or lesion. Neurologic examination cannot be assessed at this time. Assessment: Acute hypoxemic respiratory failure, currently maintained on mechanical ventilation. Persistent sepsis and septic shock, secondary to MRSA bacteremia. Moderate LV dysfunction, with diffuse interstitial edema. Acute kidney injury secondary to hypotension, and possible acute tubular necrosis. History of atrial fibrillation with RVR. Acute on chronic systolic congestive heart failure. COPD exacerbation. History of BPH. History of factor VIII deficiency. Possible pulmonary embolism. History of DVT. Benign essential hypertension. Acute influenza A infection. History of previous right total hip arthroplasty. Plan: Plan dated December 10, 2024. The patient is seen today in room 254. He had an uneventful night according to the nurses. The patient continues on mechanical ventilation. Blood gases show pO2 of 75, pCO2 of 53, pH is 7.23. The patient continues on propofol, and a small amount of Levophed at 2 mcg/min. The patient continues on heparin via weight-based protocol. In addition, the patient continues on Tamiflu, and cefepime. Respiratory mechanics reveal a peak airway pressure of 33 cm of water, and a plateau pressure of 22 cm of water. The patient is receiving tube feedings with vital AF at goal, which is 25 cc an hour. Labs, x-rays, and all medications are reviewed. Prognosis is guarded. The patient does continue on GI and DVT prophylaxis. Plan dated December 11, 2024. The patient is seen today in room 254. No significant overnight events according to nurses. The patient continues on mechanical ventilation. Blood gases show pO2 96, pCO2 51, and pH is 7.21. Propofol is at 40 mcg/kg/min, no levo since 4 AM this morning. Heparin currently discontinued due to bleeding from the central line as well as in anticipation of the patient getting dialysis catheter today. Patient requires dialysis catheter due to poor urine output and steadily increasing BUN and creatinine. This is in concordance with neph rology's plan. Patient has completed Tamiflu and is on day 3 of cefepime. Respiratory mechanics reveal peak airway pressure of 29 cm of water with a plateau pressure of 22 cm of water. New goal for vital AF is 35. Labs, x-rays, and all medications are reviewed. Prognosis is guarded. The patient does continue on GI and DVT prophylaxis. Objective - Vital Signs Vital signs: Vital Signs Temp 98.0 F 12/11/24 04:00 Pulse 97 12/11/24 07:15 Resp 28 H 12/11/24 07:15 BP 106/82 12/09/24 09:15 Pulse Ox 94 L 12/11/24 07:15 FiO2 60 12/11/24 05:55 Intake & Output 12/10/24 12/11/24 12/11/24 18:59 06:59 18:59 Intake Total 4066.940 5985.139 48 Output Total 285 149 5 Balance 1175.580 952.139 43 Weight 124.5 kg Intake: IV 316 346 23 Cefepime 1 gm In Sodium 50 Chloride 0.9% 50 ml @ 12. 5 mls/hr IVPB Q12H [facility] Rx #:[id number] Cefepime 2 gm In Sodium 100 Chloride 0.9% 100 ml @ 25 mls/hr IVPB Q12H [facility] Rx# :[id number] Furosemide 100 mg In 110 10 Sodium Chloride 0.9% 90 ml @ 10 MG/HR 10 mls/hr IV .Q10H [facility] Rx#: [id number] Pressure Bag 36 36 3 kvo 180 150 10 Intake, IV Titration 754.580 365.139 Amount Furosemide 100 mg In 56.167 100 Sodium Chloride 0.9% 90 ml @ 10 MG/HR 10 mls/hr IV .Q10H [facility] Rx#: [id number] Heparin Sod,Pork in 0.45% 250 88.5 NaCl 25,000 unit In 0.45 % NaCl 1 250ml.bag @ 8. 889 UNITS/KG/HR 10 mls/hr IV .Q24H [facility] Rx#: [id number] Norepinephrine 4 mg In 182.289 Sodium Chloride 0.9% 250 ml @ 0.03 MCG/KG/MIN 12. 443 mls/hr IV .[id number] [facility] Rx#:[id number] propofoL 1,000 mg In 266.124 176.639 Empty Bag 1 bag @ 15 MCG/ KG/MIN 9.798 mls/hr IV . [id number] [facility] Rx#:[id number] Tube Feeding 300 300 25 Other 90 90 Output: Urine 285 149 5 Other: Voiding Method Indwelling Catheter Indwelling Catheter ABP, PAP, CO, CI - Last Documented Arterial Blood Pressure 89/49 - Labs CBC & Chem 7: 12/11/24 04:00 12/11/24 04:00 Labs: Abnormal Lab Results - Last 24 Hours (Table) 12/10/24 12/10/24 12/10/24 Range/Units 05:07 07:28 12:08 WBC (3.8-10.6) k/uL RBC (4.30-5.90) m/uL Hgb (13.0-17.5) gm/dL Hct (39.0-53.0) % RDW (11.5-15.5) % Plt Count (150-450) k/uL Neutrophils # (1.3-7.7) k/uL Lymphocytes # (1.0-4.8) k/uL APTT 46.6 H (22.0-30.0) sec ABG pH 7.23 L (7.35-7.45) ABG pCO2 53 H (35-45) mmHg ABG pO2 75 L (83-108) mmHg ABG O2 Saturation 93.7 L (94-97) % Hemoglobin 11.3 L (13.0-17.5) gm/dL Sodium (137-145) mmol/L Potassium (3.5-5.1) mmol/L Carbon Dioxide (22-30) mmol/L BUN (9-20) mg/dL Creatinine (0.66-1.25) mg/dL Glucose (74-99) mg/dL POC Glucose (mg/dL) 136 H (70-110) mg/dL Calcium (8.4-10.2) mg/dL 12/10/24 12/10/24 12/10/24 Range/Units 17:49 20:10 23:30 WBC (3.8-10.6) k/uL RBC (4.30-5.90) m/uL Hgb (13.0-17.5) gm/dL Hct (39.0-53.0) % RDW (11.5-15.5) % Plt Count (150-450) k/uL Neutrophils # (1.3-7.7) k/uL Lymphocytes # (1.0-4.8) k/uL APTT 49.1 H (22.0-30.0) sec ABG pH (7.35-7.45) ABG pCO2 (35-45) mmHg ABG pO2 (83-108) mmHg ABG O2 Saturation (94-97) % Hemoglobin (13.0-17.5) gm/dL Sodium (137-145) mmol/L Potassium (3.5-5.1) mmol/L Carbon Dioxide (22-30) mmol/L BUN (9-20) mg/dL Creatinine (0.66-1.25) mg/dL Glucose (74-99) mg/dL POC Glucose (mg/dL) 147 H 155 H (70-110) mg/dL Calcium (8.4-10.2) mg/dL 12/11/24 12/11/24 Range/Units 04:00 04:00 WBC 18.4 H (3.8-10.6) k/uL RBC 3.86 L (4.30-5.90) m/uL Hgb 10.8 L (13.0-17.5) gm/dL Hct 34.7 L (39.0-53.0) % RDW 15.9 H (11.5-15.5) % Plt Count 115 L (150-450) k/uL Neutrophils # 17.7 H (1.3-7.7) k/uL Lymphocytes # 0.3 L (1.0-4.8) k/uL APTT (22.0-30.0) sec ABG pH (7.35-7.45) ABG pCO2 (35-45) mmHg ABG pO2 (83-108) mmHg ABG O2 Saturation (94-97) % Hemoglobin (13.0-17.5) gm/dL Sodium 131 L (137-145) mmol/L Potassium 5.5 H (3.5-5.1) mmol/L Carbon Dioxide 20 L (22-30) mmol/L BUN 89 H (9-20) mg/dL Creatinine 4.26 H (0.66-1.25) mg/dL Glucose 138 H (74-99) mg/dL POC Glucose (mg/dL) (70-110) mg/dL Calcium 7.9 L (8.4-10.2) mg/dL Microbiology - Last 24 Hours (Table) 12/07/24 09:37 Blood Culture - Preliminary Blood
[2024-12-11 12:30] LABS: Glucose,Whole Blood 177 mg/dL (70-110)
[2024-12-11 15:43] LABS: Hepatitis B Surface Antigen Nonreactive (Nonreactive)
[2024-12-11 16:17] LABS: Hepatitis B Surface AB- Quant 3.5 mIU/mL
--- NOTE | 2024-12-11 18:17 | P.PN ---
Subjective Progress Note Date: 12/11/24 HISTORY OF PRESENT ILLNESS This is a 84-year-old male with past medical history of hypertension, paroxysmal atrial fibrillation on Xarelto, benign prostatic hypertrophy, hiatal hernia, hereditary factor VIII deficiency, hyperlipidemia, mild intermittent asthma, mild COPD, patient was recently admitted to [facility] after he underwent right total hip arthroplasty that was done by Dr. Thakkar and he has been at [facility] for physical therapy rehabilitation, patient was recently hospitalized at [facility] from November 25 of December 04 after he was admitted for what appears to be right lower lobe pneumonia appears to be MRSA pneumonia, initially was started on vancomycin as well as cefepime was seen in consultation by pulm medicine as well as cardiology, he had a significant MRSA bacteremia, that responded very well to vancomycin, patient ended up going for transesophageal echocardiogram that did not show evidence of any vegetation, it did show evidence of 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%, patient was sent to [facility] December 04, 2024 while he was there he was requiring about 5 L nasal cannula of oxygen, I received a phone call from the nursing staff stating that the patient is in acute respiratory distress today, he was given 60 mg IM of Lasix as well as 80 mg IM of Solu-Medrol with nebulizer treatment along with Pulmicort and DuoNeb, without any relief, he was placed on nonrebreather, and patient was sent to the ER for evaluation, he was found to have a significant leukocytosis with a white count of 36,000, his swab came back positive for influenza A, and chest x-ray showed evidence of cardiomegaly as well as basilar pneumonia patient was started back on his vancomycin as well as cefepime he was started on Tamiflu, he was started on Lasix 80 mg IV push every 12 hours, along with Solu-Medrol 60 mg IV push every 6 hours, DuoNeb nebulization 4 times every day Pulmicort 1 mg nebulization twice every day he is currently on BiPAP, pulmonary consultation as well as cardiology consultation. Sputum culture will be obtained as well as blood cultures. 12/07: While the patient yesterday in the emergency department he went into severe respiratory distress while he was on the BiPAP, he did receive 1 dose of Lasix 80 mg IV push, along with Solu-Medrol 60 mg IV push along with nebulized treatment in the form of DuoNeb as well as Pulmicort, without relief, at that time the decision was made for the patient to be intubated and transferred to the intensive care unit from the emergency department, patient is currently sedated on the ventilator, he is currently on amiodarone drip, as well as propofol drip, he is on 90% FiO2, with a PEEP of 5, pulmonary/critical care is following the patient very closely, cardiology is following as well, patient was started on IV antibiotic in the form of vancomycin as well as cefepime, he was started on Tamiflu as well due to influenza A, his white count initially was elevated at 43,000 down to 38,000, patient appears quite sick at this point in time, his prognosis continue be guarded, will continue with aggressive treatment plan for now, we will follow-up with the patient very closely. 12/08: Patient is laying down in bed he continues to be on the ventilator, currently FiO2 of 60%, PEEP of 12, tidal volume of 550, he continues to have a significant edema both upper and lower extremities, he is not getting any more IV fluid, will wean down his Levophed drip, continue IV antibiotic in the form of vancomycin as well as cefepime, sputum cultures growing Pseudomonas aeruginosa, currently on cefepime as well as vancomycin with pharmacy to dose to be controlled, continue also with Tamiflu for influenza A, patient was seen earlier by nephrology for acute kidney injury due to acute tubular necrosis and vasomotor nephropathy due to septic shock, continue current Lasix 80 mg IV push every 12 hours, monitor the patient input and output and daily weight, ultr asound of the kidney was obtained. 12/09: Patient is still intubated on the ventilator, he is currently on AC mode with a tidal volume of 550 respiration of 24, FiO2 of 60%, PEEP of 12, x-ray still showing evidence of pulmonary edema, he has been getting Lasix 80 mg IV push every 12 hours, he has an acute kidney injury that is getting worse today, his BUN and creatinine is elevated, nephrology is following, patient continues to be on Levophed, he has been on cefepime we will monitor the patient very closely, continue current treatment plan, will follow-up with the patient very closely, patient has been seen by nephrology, cardiology, as well as by pulmonary medicine and critical care, patient also was seen in consultation by infectious disease at this point in time, taken off vancomycin and Tamiflu due to acute kidney injury. 12/10: Patient is laying down in bed he continues to be on the ventilator, his current vent setting is FiO2 of 60%, respiratory rate is 24, tidal volume 450, and FiO2 of 60%, PEEP of 12, patient blood gases showed evidence of metabolic and respiratory acidosis with hypoxemia his pO2 is about 72 and pCO2 is 56, patient is getting a central line today, he continues to have worsening kidney function, will continue current treatment plan, continue follow-up with the patient very closely 12/11: Patient is laying down in bed continues to be sedated on the ventilator, worsening renal function his creatinine is up to 4.5, decreased urine output, was on lasix drip without improvement and he was started on HD today for 2 hours , patient continues to be treated with cefepime for Pseudomonas pneumonia, he continued to have a septic shock he is currently on Levophed, he is currently on propofol, his prognosis continues to be guarded, patient has underlying ca rdiomyopathy ejection fraction 45%, he continues to have atrial fibrillation for which she has been on amiodarone, patient has been followed by multiple specialties including ICU/pulmonary medicine, cardiology, nephrology, infectious disease, we will continue to follow-up with the patient very closely, he may require to have hemodialysis even for short period of time to improve his kidney function as well as fluid status. REVIEW OF SYSTEMS Patient is sedated on the ventilator. PHYSICAL EXAMINATION Gen: This is an obese 84-year-old is sedated on the ventilator HEENT: Head is atraumatic, normocephalic. Pupils equal, round. Sclerae is anicteric, there is an NG tube in place, and ET tube placed NECK: Supple. No JVD. No lymphadenopathy. No thyromegaly. LUNGS: decreased breath sound at bases, few rhonchi, minimal expiratory whe ezes, no chest wall tenderness, no intercostal retractions. HEART: First heart sound is depressed, second heart sound is normal, 2/6 systolic ejection murmur at the left sternal border, irregular irregular due to atrial fibrillation. ABDOMEN: Soft. Bowel sounds are present. No masses. No tenderness. EXTREMITIES: +2 pedal edema. No calf tenderness. Pain in the left hip. Dorsalis pedis palpable bilaterally. NEUROLOGICAL: Patient is currently sedated on the ventilator. ASSESSMENT AND PLAN: 1. Acute vent dependent hypoxemic respiratory failure due to acute systolic heart failure as well as acute left lower lobe Pseudomonas pneumonia and influenza A. Continue Solu-Medrol 60 mg IV push every 6 hours, continue DuoNeb 3 mL nebulization every 4 hours, continue Pulmicort 1 mg of Lasix twice every day, continue Lasix 80 mg IV push every 12 hours, continue cefepime 1 g IV piggyback every 12 hours, monitor the patient symptoms very closely, patient is still requiring FiO2 of 60% at this point in time. 2. Pseudomonas pneumonia with septic shock . Try to wean Levophed off continue IV antibiotic in the form of cefepime 1 g piggyback every 12 hours, continue oxygen support, try to wean FiO2 down, continue to monitor the patient very closely. Infectious disease consultation from Dr. Agosto is appreciated. Monitor the patient symptoms very closely, blood cultures so far no growth after 72 hours. 3. Atrial fibrillation with rapid ventricular response. Discontinue amiodarone drip, continue patient on amiodarone 200 mg orally twice every day, continue on metoprolol 25 mg orally twice every day, monitor the patient symptoms very closely. 4. 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 Continue Lasix 80 mg IV push every 12 hours, continue to monitor the patient very closely. Patient is currently on Levophed drip is currently not taking any antihypertensive medication including metoprolol. 5. Acute kidney injury due to acute tubular necrosis with vasomotor nephropathy due to septic shock. Patient started on hemodialysis today for 2 hours, 500 cc were removed. Chest x-ray looked better. 6. Anion gap antibiotic acidosis due to acute kidney injury monitor the patient symptoms very closely, patient may need to be started on hemodialysis in the next 24 hours if there is no improvement. 7. COPD exacerbation. Continue Solu-Medrol 60 mg IV push every 6 hours, continue Pulmicort 1 mg nebulization twice every day, DuoNeb 3 manipulation 4 times every day, oxygen support, currently on the ventilator. 8. Mild intermittent asthma. Continue Singulair 10 mg at bedtime, loratadine 10 mg once every day, continue aggressive pulmonary toileting. 9. Benign prostatic hypertrophy. Continue Flomax 0.4 mg currently has a Henry catheter in place. 10. Hereditary factor VIII deficiency. Continue heparin drip for now. 11. Hyperlipidemia. Continue Zetia 10 mg daily and Atorvastatin 40 mg once a day. Monitor the patient lipid panel, keep LDL 55-70 12. Hypertension and hypertensive cardiovascular disease. patient blood pressure is soft at this time, continue metoprolol 25 mg twice every day for now. 13. GI prophylaxis. Protonix 40 mg IV push daily. 14. DVT prophylaxis. Continue drip for now. 15. Major depressive disorder. Continue patient on Effexor XR 37.5 mg orally once every day. 16. Prognosis is guarded 17. Full code. Objective - Vital Signs Vital signs: Vital Signs Temp 95.5 F L 12/11/24 15:38 Pulse 101 H 12/11/24 15:38 Resp 26 H 12/11/24 15:38 BP 101/53 12/11/24 15:38 Pulse Ox 96 12/11/24 15:30 FiO2 60 12/11/24 15:00 Intake & Output 12/10/24 12/11/24 12/11/24 18:59 06:59 18:59 Intake Total 1318.075 4859.139 1138.197 Output Total 757 258 1083 Balance 5184.080 8120.139 -283.803 Weight 124.5 kg 124.5 kg Intake: IV 316 346 207 Cefepime 1 gm In Sodium 50 Chloride 0.9% 50 ml @ 12. 5 mls/hr IVPB Q12H [facility] Rx #:[id number] Cefepime 2 gm In Sodium 100 Chloride 0.9% 100 ml @ 25 mls/hr IVPB Q12H [facility] Rx# :[id number] Furosemide 100 mg In 110 60 Sodium Chloride 0.9% 90 ml @ 10 MG/HR 10 mls/hr IV .Q10H [facility] Rx#: [id number] Pressure Bag 36 36 27 kvo 180 150 120 Intake, IV Titration 754.580 465.139 206.197 Amount Furosemide 100 mg In 56.167 100 61.333 Sodium Chloride 0.9% 90 ml @ 10 MG/HR 10 mls/hr IV .Q10H [facility] Rx#: [id number] Heparin Sod,Pork in 0.45% 250 88.5 NaCl 25,000 unit In 0.45 % NaCl 1 250ml.bag @ 8. 889 UNITS/KG/HR 10 mls/hr IV .Q24H [facility] Rx#: [id number] Norepinephrine 4 mg In 182.289 44.864 Sodium Chloride 0.9% 250 ml @ 0.03 MCG/KG/MIN 12. 443 mls/hr IV .[id number] [facility] Rx#:[id number] propofoL 1,000 mg In 266.124 276.639 100 Empty Bag 1 bag @ 15 MCG/ KG/MIN 9.798 mls/hr IV . [id number] [facility] Rx#:[id number] Tube Feeding 300 300 265 Hemodialysis 400 Other 90 90 60 Output: Urine 285 149 22 Hemodialysis 900 Hemodialysis Net Amount 500 Other: Voiding Method Indwelling Catheter Indwelling Catheter Indwelling Catheter ABP, PAP, CO, CI - Last Documented Arterial Blood Pressure 103/53 - Labs CBC & Chem 7: 12/11/24 04:00 12/11/24 04:00 Labs: Abnormal Lab Results - Last 24 Hours (Table) 12/10/24 12/10/24 12/10/24 Range/Units 17:49 20:10 23:30 WBC (3.8-10.6) k/uL RBC (4.30-5.90) m/uL Hgb (13.0-17.5) gm/dL Hct (39.0-53.0) % RDW (11.5-15.5) % Plt Count (150-450) k/uL Neutrophils # (1.3-7.7) k/uL Lymphocytes # (1.0-4.8) k/uL APTT 49.1 H (22.0-30.0) sec ABG pH (7.35-7.45) ABG pCO2 (35-45) mmHg ABG HCO3 (21-25) mmol/L ABG O2 Saturation (94-97) % Hemoglobin (13.0-17.5) gm/dL Sodium (137-145) mmol/L Potassium (3.5-5.1) mmol/L Carbon Dioxide (22-30) mmol/L BUN (9-20) mg/dL Creatinine (0.66-1.25) mg/dL Glucose (74-99) mg/dL POC Glucose (mg/dL) 147 H 155 H (70-110) mg/dL Calcium (8.4-10.2) mg/dL 12/11/24 12/11/24 12/11/24 Range/Units 04:00 04:00 06:03 WBC 18.4 H (3.8-10.6) k/uL RBC 3.86 L (4.30-5.90) m/uL Hgb 10.8 L (13.0-17.5) gm/dL Hct 34.7 L (39.0-53.0) % RDW 15.9 H (11.5-15.5) % Plt Count 115 L (150-450) k/uL Neutrophils # 17.7 H (1.3-7.7) k/uL Lymphocytes # 0.3 L (1.0-4.8) k/uL APTT (22.0-30.0) sec ABG pH 7.21 L (7.35-7.45) ABG pCO2 51 H (35-45) mmHg ABG HCO3 20 L (21-25) mmol/L ABG O2 Saturation 97.2 H (94-97) % Hemoglobin 10.6 L (13.0-17.5) gm/dL Sodium 131 L (137-145) mmol/L Potassium 5.5 H (3.5-5.1) mmol/L Carbon Dioxide 20 L (22-30) mmol/L BUN 89 H (9-20) mg/dL Creatinine 4.26 H (0.66-1.25) mg/dL Glucose 138 H (74-99) mg/dL POC Glucose (mg/dL) (70-110) mg/dL Calcium 7.9 L (8.4-10.2) mg/dL 12/11/24 Range/Units 12:29 WBC (3.8-10.6) k/uL RBC (4.30-5.90) m/uL Hgb (13.0-17.5) gm/dL Hct (39.0-53.0) % RDW (11.5-15.5) % Plt Count (150-450) k/uL Neutrophils # (1.3-7.7) k/uL Lymphocytes # (1.0-4.8) k/uL APTT (22.0-30.0) sec ABG pH (7.35-7.45) ABG pCO2 (35-45) mmHg ABG HCO3 (21-25) mmol/L ABG O2 Saturation (94-97) % Hemoglobin (13.0-17.5) gm/dL Sodium (137-145) mmol/L Potassium (3.5-5.1) mmol/L Carbon Dioxide (22-30) mmol/L BUN (9-20) mg/dL Creatinine (0.66-1.25) mg/dL Glucose (74-99) mg/dL POC Glucose (mg/dL) 177 H (70-110) mg/dL Calcium (8.4-10.2) mg/dL Microbiology - Last 24 Hours (Table) 12/07/24 09:37 Blood Culture - Preliminary Blood
[2024-12-11 18:29] LABS: Glucose,Whole Blood 142 mg/dL (70-110)
--- NOTE | 2024-12-11 19:17 | P.PN ---
Subjective Patient is seen for follow-up for acute kidney injury. Patient remains on the vent. FiO2 at 60% with PEEP of 12. Urine output at 10 to 15 mL/h with Lasix drip. Chest x-ray shows bilateral interstitial pattern. Serum creatinine increased to 4.3 and potassium is 5.5 today. Objective - Vital Signs Vital signs: Vital Signs Temp 97.5 F L 12/11/24 17:48 Pulse 116 H 12/11/24 19:00 Resp 30 H 12/11/24 19:00 BP 117/71 12/11/24 18:30 Pulse Ox 96 12/11/24 19:00 FiO2 60 12/11/24 19:00 Intake & Output 12/11/24 12/11/24 12/12/24 06:59 18:59 06:59 Intake Total 0101.737 7389.725 31.352 Output Total 149 2332 Balance 1052.139 63.725 31.352 Weight 124.5 kg 124.5 kg Intake: IV 346 326 Cefepime 1 gm In Sodium 50 50 Chloride 0.9% 50 ml @ 12. 5 mls/hr IVPB Q12H [facility] Rx #:[id number] Furosemide 100 mg In 110 60 Sodium Chloride 0.9% 90 ml @ 10 MG/HR 10 mls/hr IV .Q10H [facility] Rx#: [id number] Pressure Bag 36 36 kvo 150 180 Intake, IV Titration 465.139 409.725 31.352 Amount Furosemide 100 mg In 100 61.333 Sodium Chloride 0.9% 90 ml @ 10 MG/HR 10 mls/hr IV .Q10H [facility] Rx#: [id number] Heparin Sod,Pork in 0.45% 88.5 NaCl 25,000 unit In 0.45 % NaCl 1 250ml.bag @ 8. 889 UNITS/KG/HR 10 mls/hr IV .Q24H [facility] Rx#: [id number] Norepinephrine 4 mg In 89.451 Sodium Chloride 0.9% 250 ml @ 0.03 MCG/KG/MIN 12. 443 mls/hr IV .[id number] [facility] Rx#:[id number] propofoL 1,000 mg In 276.639 258.941 31.352 Empty Bag 1 bag @ 15 MCG/ KG/MIN 9.798 mls/hr IV . [id number] [facility] Rx#:[id number] Tube Feeding 300 370 Hemodialysis 1200 Other 90 90 Output: Urine 149 32 Hemodialysis 1550 Hemodialysis Net Amount 750 Other: Voiding Method Indwelling Catheter Indwelling Catheter ABP, PAP, CO, CI - Last Documented Arterial Blood Pressure 117/59 - Exam Patient is on the vent. Examination of the heart S1 and S2 Examination of the lungs bilateral breath sounds are heard Abdomen is soft nontender Examination of lower extremities shows edema 1+ bilaterally. - Labs CBC & Chem 7: 12/11/24 04:00 12/11/24 04:00 Labs: Abnormal Lab Results - Last 24 Hours (Table) 12/10/24 12/10/24 12/11/24 Range/Units 20:10 23:30 04:00 WBC 18.4 H (3.8-10.6) k/uL RBC 3.86 L (4.30-5.90) m/uL Hgb 10.8 L (13.0-17.5) gm/dL Hct 34.7 L (39.0-53.0) % RDW 15.9 H (11.5-15.5) % Plt Count 115 L (150-450) k/uL Neutrophils # 17.7 H (1.3-7.7) k/uL Lymphocytes # 0.3 L (1.0-4.8) k/uL APTT 49.1 H (22.0-30.0) sec ABG pH (7.35-7.45) ABG pCO2 (35-45) mmHg ABG HCO3 (21-25) mmol/L ABG O2 Saturation (94-97) % Hemoglobin (13.0-17.5) gm/dL Sodium (137-145) mmol/L Potassium (3.5-5.1) mmol/L Carbon Dioxide (22-30) mmol/L BUN (9-20) mg/dL Creatinine (0.66-1.25) mg/dL Glucose (74-99) mg/dL POC Glucose (mg/dL) 155 H (70-110) mg/dL Calcium (8.4-10.2) mg/dL 12/11/24 12/11/24 12/11/24 Range/Units 04:00 06:03 12:29 WBC (3.8-10.6) k/uL RBC (4.30-5.90) m/uL Hgb (13.0-17.5) gm/dL Hct (39.0-53.0) % RDW (11.5-15.5) % Plt Count (150-450) k/uL Neutrophils # (1.3-7.7) k/uL Lymphocytes # (1.0-4.8) k/uL APTT (22.0-30.0) sec ABG pH 7.21 L (7.35-7.45) ABG pCO2 51 H (35-45) mmHg ABG HCO3 20 L (21-25) mmol/L ABG O2 Saturation 97.2 H (94-97) % Hemoglobin 10.6 L (13.0-17.5) gm/dL Sodium 131 L (137-145) mmol/L Potassium 5.5 H (3.5-5.1) mmol/L Carbon Dioxide 20 L (22-30) mmol/L BUN 89 H (9-20) mg/dL Creatinine 4.26 H (0.66-1.25) mg/dL Glucose 138 H (74-99) mg/dL POC Glucose (mg/dL) 177 H (70-110) mg/dL Calcium 7.9 L (8.4-10.2) mg/dL 12/11/24 Range/Units 18:28 WBC (3.8-10.6) k/uL RBC (4.30-5.90) m/uL Hgb (13.0-17.5) gm/dL Hct (39.0-53.0) % RDW (11.5-15.5) % Plt Count (150-450) k/uL Neutrophils # (1.3-7.7) k/uL Lymphocytes # (1.0-4.8) k/uL APTT (22.0-30.0) sec ABG pH (7.35-7.45) ABG pCO2 (35-45) mmHg ABG HCO3 (21-25) mmol/L ABG O2 Saturation (94-97) % Hemoglobin (13.0-17.5) gm/dL Sodium (137-145) mmol/L Potassium (3.5-5.1) mmol/L Carbon Dioxide (22-30) mmol/L BUN (9-20) mg/dL Creatinine (0.66-1.25) mg/dL Glucose (74-99) mg/dL POC Glucose (mg/dL) 142 H (70-110) mg/dL Calcium (8.4-10.2) mg/dL Microbiology - Last 24 Hours (Table) 12/07/24 09:37 Blood Culture - Preliminary Blood Assessment and Plan Assessment: 1. Acute kidney injury secondary to ATN secondary to septic shock. Baseline creatinine near 1 and is 4.26 today. Nonoliguric. No hydronephrosis noted on kidney ultrasound. 2. Acute hypoxic respiratory failure secondary to pneumonia and component of CHF 3. Septic shock. Patient with influenza A pneumonia and sputum culture positive for Pseudomonas. 4. Metabolic acidosis secondary to acute kidney injury. Better. 5. A-fib with RVR maintained on oral amiodarone. 6. Cardiomyopathy with ejection fraction of 40 to 45%. 7. Fluid overload. Plan: Proceed with renal replacement therapy. First treatment of hemodialysis today and repeat in a.m. MEAGAN prasad
--- NOTE | 2024-12-11 21:47 | PN ---
PROGRESS NOTE SUBJECTIVE: Yaw is an 84-year-old gentleman with respiratory failure, persistent atrial fibrillation, hypertension, and pneumonia. He remains in atrial fibrillation with slightly elevated heart rates in the 100s. He is on Lopressor 25 b.i.d. along with amiodarone 200 b.i.d., on Lipitor, and Lasix. OBJECTIVE: VITAL SIGNS: Heart rate is 90 beats per minute, blood pressure is 100/70, respiratory rate is 18. CHEST: Reveals diminished air entry at the bases. HEART: Reveals first and second heart sounds. Regular rhythm and a systolic murmur at the apex. ABDOMEN: Soft. EXTREMITIES: Reveals bilateral 1+ pitting edema. LABORATORY DATA: Hemoglobin is 10.8, platelet count is 115, potassium is 5.5, BUN is 89, creatinine is 4.2, PTT is 49. The patient's heparin had been stopped because of persistent oozing from the central line site. We will continue to hold it for now. ASSESSMENT: Persistent atrial fibrillation. PLAN: I will continue current rate control measures. I am going to hold off on the heparin at this time. MMODL / IJN: [id number] /
[2024-12-11 23:40] LABS: Glucose,Whole Blood 133 mg/dL (70-110)
[2024-12-12 04:43] LABS: HCT 34.7 % (39.0-53.0); Hypochromasia Slight; MCH 28.1 pg (25.0-35.0); MCHC 31.6 g/dL (31.0-37.0); MCV 88.8 fL (80.0-100.0); Mean Platelet Volume 8.7; Platelet Count 122 k/uL (150-450); RBC 3.91 m/uL (4.30-5.90)
[2024-12-12 05:20] LABS: African American GFR (CKD) 14 (>60 ml/min/1.73 sqM); Anion Gap 12 mmol/L; Blood Urea Nitrogen 81 mg/dL (9-20); Calcium 7.7 mg/dL (8.4-10.2); Carbon Dioxide 20 mmol/L (22-30); Chloride 96 mmol/L (98-107); Glucose 123 mg/dL (74-99); Non-African American GFR(CKD) 12 (>60 ml/min/1.73 sqM); Sodium 128 mmol/L (137-145)
[2024-12-12 05:35] LABS: ABG Base Excess -5.7 mmol/L; ABG HCO3 22 mmol/L (21-25); ABG Oxygen Saturation 93.2 % (94-97); ABG PCO2 56 mmHg (35-45); ABG PH 7.21 (7.35-7.45); ABG PO2 74 mmHg (83-108); ABG TCO2 24 mmol/L (19-24)
[2024-12-12 05:36] LABS: Allen Test Performed? No
[2024-12-12 06:02] LABS: Lymphocytes # (M) 0.26 k/uL (1.0-4.8); Monocytes # (M) 0.52 k/uL (0-1.0); Neutrophils # (M) 25.28 k/uL (1.3-7.7); Neutrophils % (M) 98 %; Nucleated Red Blood Cells 2 /100 WBC (0-0); Total Cells Counted 200; WBC 25.8 k/uL (3.8-10.6)
[2024-12-12 06:05] LABS: Crenated RBC Present; Tear Drop Cells Present
[2024-12-12 06:21] LABS: Glucose,Whole Blood 127 mg/dL (70-110)
[2024-12-12] MEDS: INSULIN REGULAR 100 UNIT/ML VIAL (IV) IV ONE (07:03)
[2024-12-12] MEDS: DEXTROSE 50% SYRINGE 50 ML IVP ONE (07:03)
--- NOTE | 2024-12-12 07:34 | XR ---
EXAMINATION TYPE: XR chest 1V portable DATE OF EXAM: 12/12/2024 5:00 AM COMPARISON: Chest radiographs from 12/11/2024. CLINICAL INDICATION: Male, 84 years old with history of mechanical ventilation; [facility] TECHNIQUE: XR chest 1V portable Frontal view of the chest. FINDINGS: Lungs/Pleura: Right basilar airspace opacities. No evidence of pneumothorax or pleural effusion. Pulmonary vascularity: Unremarkable. Heart/mediastinum: Cardiomediastinal silhouette is unremarkable. Musculoskeletal: No acute osseous pathology. Other findings: None Lines/Tubes: Endotracheal tube with distal tip 8.8cm above the landen. Nasogastric tube with its distal tip and side-port projecting under the diaphragm and projecting over the gastric lumen. Left internal jugular central venous catheter with distal tip at the cavoatrial junction. IMPRESSION: 1. Endotracheal tube in high position consider advancement of 4.0 cm for more appropriate. 2. Nasogastric tube in appropriate position. 3. There remains right basilar airspace opacities. [facility], , 12/12/2024 7:31 AM
--- NOTE | 2024-12-12 08:07 | P.PN ---
Subjective Progress Note Date: 12/11/24 Principal diagnosis: Reason for follow-up is acute influenza A/Pseudomonas pneumonia Patient is a 84-year-old male with a past medical history significant for atrial fibrillation diabetes mellitus DVT hypertension hyperlipidemia recent admission to the hospital diagnosed with MRSA bacteremia source was likely pneumonia, did have a negative LIS presenting back to the hospital for increasing shortness of breath has been diagnosed with sepsis secondary pneumonia also tested positive for influenza A sputum showing Pseudomonas. On today's evaluation that is 12/11/2024, Patient is afebrile this morning patient remains to be debated on the vent FiO2 is currently at 60% no significant purulent secretion through the ET diarrhea any changes reported by the nurse. Patient is off pressor support. Patient white count is down to 18.4 creatinine is 4.26, blood culture have been negative Objective - Vital Signs Vital signs: Vital Signs Temp 98.0 F 12/11/24 04:00 Pulse 87 12/11/24 07:46 Resp 28 H 12/11/24 07:15 BP 106/82 12/09/24 09:15 Pulse Ox 94 L 12/11/24 07:15 FiO2 60 12/11/24 07:39 Intake & Output 12/10/24 12/11/24 12/11/24 18:59 06:59 18:59 Intake Total 3793.320 5398.139 48 Output Total 285 149 5 Balance 6344.811 7673.139 43 Weight 124.5 kg Intake: IV 316 346 23 Cefepime 1 gm In Sodium 50 Chloride 0.9% 50 ml @ 12. 5 mls/hr IVPB Q12H [facility] Rx #:[id number] Cefepime 2 gm In Sodium 100 Chloride 0.9% 100 ml @ 25 mls/hr IVPB Q12H [facility] Rx# :[id number] Furosemide 100 mg In 110 10 Sodium Chloride 0.9% 90 ml @ 10 MG/HR 10 mls/hr IV .Q10H [facility] Rx#: [id number] Pressure Bag 36 36 3 kvo 180 150 10 Intake, IV Titration 754.580 465.139 Amount Furosemide 100 mg In 56.167 100 Sodium Chloride 0.9% 90 ml @ 10 MG/HR 10 mls/hr IV .Q10H [facility] Rx#: [id number] Heparin Sod,Pork in 0.45% 250 88.5 NaCl 25,000 unit In 0.45 % NaCl 1 250ml.bag @ 8. 889 UNITS/KG/HR 10 mls/hr IV .Q24H [facility] Rx#: [id number] Norepinephrine 4 mg In 182.289 Sodium Chloride 0.9% 250 ml @ 0.03 MCG/KG/MIN 12. 443 mls/hr IV .[id number] [facility] Rx#:[id number] propofoL 1,000 mg In 266.124 276.639 Empty Bag 1 bag @ 15 MCG/ KG/MIN 9.798 mls/hr IV . [id number] [facility] Rx#:[id number] Tube Feeding 300 300 25 Other 90 90 Output: Urine 285 149 5 Other: Voiding Method Indwelling Catheter Indwelling Catheter ABP, PAP, CO, CI - Last Documented Arterial Blood Pressure 89/49 - Exam GENERAL DESCRIPTION: An elderly male intubated on the vent RESPIRATORY SYSTEM: Unlabored breathing , decreased breath sounds at bases HEART: S1 S2 regular rate and rhythm , ABDOMEN: Soft , no tenderness EXTREMITIES: Mild swelling to the leg no redness - Labs CBC & Chem 7: 12/12/24 04:20 12/12/24 04:20 Labs: Abnormal Lab Results - Last 24 Hours (Table) 12/10/24 12/10/24 12/10/24 Range/Units 12:08 17:49 20:10 WBC (3.8-10.6) k/uL RBC (4.30-5.90) m/uL Hgb (13.0-17.5) gm/dL Hct (39.0-53.0) % RDW (11.5-15.5) % Plt Count (150-450) k/uL Neutrophils # (1.3-7.7) k/uL Lymphocytes # (1.0-4.8) k/uL APTT 49.1 H (22.0-30.0) sec ABG pH (7.35-7.45) ABG pCO2 (35-45) mmHg ABG HCO3 (21-25) mmol/L ABG O2 Saturation (94-97) % Hemoglobin (13.0-17.5) gm/dL Sodium (137-145) mmol/L Potassium (3.5-5.1) mmol/L Carbon Dioxide (22-30) mmol/L BUN (9-20) mg/dL Creatinine (0.66-1.25) mg/dL Glucose (74-99) mg/dL POC Glucose (mg/dL) 136 H 147 H (70-110) mg/dL Calcium (8.4-10.2) mg/dL 12/10/24 12/11/24 12/11/24 Range/Units 23:30 04:00 04:00 WBC 18.4 H (3.8-10.6) k/uL RBC 3.86 L (4.30-5.90) m/uL Hgb 10.8 L (13.0-17.5) gm/dL Hct 34.7 L (39.0-53.0) % RDW 15.9 H (11.5-15.5) % Plt Count 115 L (150-450) k/uL Neutrophils # 17.7 H (1.3-7.7) k/uL Lymphocytes # 0.3 L (1.0-4.8) k/uL APTT (22.0-30.0) sec ABG pH (7.35-7.45) ABG pCO2 (35-45) mmHg ABG HCO3 (21-25) mmol/L ABG O2 Saturation (94-97) % Hemoglobin (13.0-17.5) gm/dL Sodium 131 L (137-145) mmol/L Potassium 5.5 H (3.5-5.1) mmol/L Carbon Dioxide 20 L (22-30) mmol/L BUN 89 H (9-20) mg/dL Creatinine 4.26 H (0.66-1.25) mg/dL Glucose 138 H (74-99) mg/dL POC Glucose (mg/dL) 155 H (70-110) mg/dL Calcium 7.9 L (8.4-10.2) mg/dL 12/11/24 Range/Units 06:03 WBC (3.8-10.6) k/uL RBC (4.30-5.90) m/uL Hgb (13.0-17.5) gm/dL Hct (39.0-53.0) % RDW (11.5-15.5) % Plt Count (150-450) k/uL Neutrophils # (1.3-7.7) k/uL Lymphocytes # (1.0-4.8) k/uL APTT (22.0-30.0) sec ABG pH 7.21 L (7.35-7.45) ABG pCO2 51 H (35-45) mmHg ABG HCO3 20 L (21-25) mmol/L ABG O2 Saturation 97.2 H (94-97) % Hemoglobin 10.6 L (13.0-17.5) gm/dL Sodium (137-145) mmol/L Potassium (3.5-5.1) mmol/L Carbon Dioxide (22-30) mmol/L BUN (9-20) mg/dL Creatinine (0.66-1.25) mg/dL Glucose (74-99) mg/dL POC Glucose (mg/dL) (70-110) mg/dL Calcium (8.4-10.2) mg/dL Microbiology - Last 24 Hours (Table) 12/07/24 09:37 Blood Culture - Preliminary Blood Assessment and Plan (1) Influenza A Current Visit: Yes Status: Acute Code(s): J10.1 - FLU DUE TO OTH IDENT INFLUENZA VIRUS W OTH RESP MANIFEST SNOMED Code(s): 282999417 (2) Leukocytosis Current Visit: Yes Status: Acute Code(s): D72.829 - ELEVATED WHITE BLOOD CELL COUNT, UNSPECIFIED SNOMED Code(s): 629868358 (3) Pneumonia Current Visit: No Status: Acute Code(s): J18.9 - PNEUMONIA, UNSPECIFIED ORGANISM SNOMED Code(s): 201223741 (4) Sepsis Current Visit: No Status: Acute Code(s): A41.9 - SEPSIS, UNSPECIFIED ORGANISM SNOMED Code(s): 26469151 Plan: 1patient presented to hospital with sepsis in this patient who did have hypotension requiring pressor support elevated white count source is multifactorial possible component of pneumonia with the sputum not showing Pseud omonas aeruginosa and recently did have a history of MRSA pneumonia for the patient has received adequate vancomycin which has been discontinued. 2 Patient with acute influenza A, patient is covered with Tamiflu to finish a 5-day course of therapy 3-patient did have worsening of his kidney function and has been started on hemodialysis nephrology is following the patient 4- patient did have Pseudomonas pneumonia patient white count is trending down down to 18,000 will be treated with cefepime and will monitor clinical course closely Dictation was produced using [employer] dictation software. please excuse any grammatical, word or spelling errors. Time with Patient: Less than 30
--- NOTE | 2024-12-12 08:29 | PN ---
PROGRESS NOTE SUBJECTIVE: Yaw is an 84-year-old gentleman with respiratory failure, persistent atrial fibrillation, hypertension, and pneumonia and had been in the ICU. He remains in atrial fibrillation with a heart rate around 100 to 105 beats per minute. OBJECTIVE: GENERAL: Intubated on the vent. VITAL SIGNS: Heart rate is around 120 beats per minute. Blood pressure is 90/44, respiratory rate is 28. CHEST: Reveals diminished air entry bilaterally. HEART: Reveals first and second heart sounds, irregular rhythm. ABDOMEN: Soft. EXTREMITIES: Reveals 1+ edema bilaterally. LABORATORY DATA: Show hemoglobin of 11, white cell count had increased to 25, potassium is 6, BUN 81, creatinine is 4.3. ASSESSMENT AND PLAN: Persistent atrial fibrillation with poorly controlled ventricular rate. I will increase the dose of metoprolol to 25 t.i.d. and continue the amiodarone that he is on. The patient has worsening renal failure and hyperkalemia. Nephrology is on the case. Prognosis is guarded. MMODL / IJN: [id number] /
--- NOTE | 2024-12-12 10:55 | P.PN ---
Subjective Principal diagnosis: Respiratory failure. This is an 84-year-old white male familiar to my service, patient was recently seen in the hospital for MRSA bacteremia, workup for endocarditis and transesophageal echocardiogram was unremarkable and there was no evidence of vegetations. Patient was discharged to shelter on vancomycin and he had a PICC line in place. His transesophageal echo on his last admission showed ejection fraction of 45%, patient is also known to have history of paroxysmal atrial fibrillation as well as history of hereditary factor VIII deficiency. In addition to all of this the patient is known to have history of mild COPD, hiatal hernia, hypertension, and yesterday shelter was concerned about the patient having episodes of shortness of breath. Patient received diuretics, received bronchodilators, this was done upon arrival to the ER, patient developed worsening atrial fibrillation with RVR. I was notified about this patient from the ER, initially recommended amiodarone and amiodarone drip because of his atrial fibrillation with RVR, cardiology was consulted, his oxygenation while in the ER was getting worse in spite of diuretics his chest x- ray did not show any evidence of significant pulmonary edema, patient was intubated shortly after upon my recommendation, and arrangements made for the patient to transfer to the ICU late at night. In the meantime patient was noted to have leukocytosis, WBC count as high as 43.6, hemoglobin was 12.2. Basic metabolic profile was normal except for slightly low bicarb of 18 BUN 35 creatinine 1.28. Chest x-ray this morning showed normal pulmonary vasculature there was no clear-cut evidence of pneumonia or any pleural effusion, no evidence of congestive heart failure, patient did receive multiple fluid boluses yesterday for low blood pressure after intubation. Today the patient is on assist-control rate of 24 tidal volume 500 FiO2 90% and PEEP of 8 which I increased to 10 ABG remains marginal with a pO2 of 85 pCO2 44 pH of 7.31 patient has been on Xarelto for history of chronic atrial fibrillation presently I would recommend that we place the patient on heparin, patient is still receiving amiodarone at 0.5 mg/min he is also on norepinephrine at 0.06 mcg/kg/min propofol at 50 mcg/kg/min IV fluid 100 cc/h 0.9 normal saline. Went ahead and establish a right radial arterial line, patient does have a PICC line in place hence no need to change PICC line unless the patient comes back with positive blood cultures. In the meantime we are recommending cefepime and vancomycin. 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 Knowing this, possibility of pulmonary embolism is likely and I am recommending that we heparinized the patient for now, once his renal functioning improved may consider sending him down for a CT angiogram of the chest. Seen today on 12/08/2024, patient remains in the ICU, intubated mechanically ventilated, he is on assist-control rate of 24 tidal volume 500 FiO2 90% PEEP of 12 ABG showed a pO2 of 125 pCO2 50 pH of 7.25 hence tidal volume was increased to 550, FiO2 was cut down to 60%, kept the PEEP at 12. Chest x-ray is showing evidence of worsening interstitial edema. Patient is on diuretics Lasix 80 mg IV push twice daily. Patient is still requiring pressors he is on norepinephr ine at 0.06 mcg/kg/min propofol at 30 mcg/kg/min IV fluid was 100 cc/h, however considering his chest x-ray I recommended we cut it down to KVO. Patient remains on amiodarone at 0.5 mg/min antibiotics schaefer he is on cefepime and vancomycin patient had recent MRSA bacteremia he is also on Tamiflu for acute influenza. For his DVT and possible pulmonary embolism patient remains on heparin as per protocol. Patient is sedated, still hemodynamically unstable requiring norepinephrine, patient is receiving GI DVT prophylaxis is also on enteral feeding for nutritional support. Blood cultures are still pending no plans to address weaning today since the patient is still requiring relatively high FiO2 and high PEEP. Renal functioning seems to be a bit worse, being addressed by nephrology on the case. Patient may have developed acute kidney injury, likely cardiorenal in nature. And could be related to his low blood pressure on presentation /acute tubular necrosis. 12/09/2024: Patient remains in the ICU, intubated mechanically ventilated, he is on assist-control rate of rr 24 tidal volume 550, peep at 12, fio2 60. ABG showed pO2 of 72, pCO2 43, and pH of 7.32. Overnight heart rate was in the 140s, Dr. Taylor was called and he gave Lopressor PO. CXR showing evidence of stable interstitial pattern with small effusion and basilar subsegmental consolidation. Patient had lower extremity Doppler on 12/07 showing chronic nonoccluding right lower extremity DVT for which she remains on heparin as per protocol. Patient is sedated, still hemodynamically unstable requiring norepinephrine, patient is receiving GI DVT prophylaxis and is also on enteral feeding 25 at goal. Fluid balance is approximately positive 1 L in the last 24 hours. Levo at 7.63 mg/min, heprin at 10, amio at .5, prop 50. Lasix at 80 IV BID. Preliminary Gram stain showed Pseudomonas and blood cultures have been nega tive through 48 hours. . Creatinine today 2.58 which is increased from yesterday of 1.89. Nephrology is following, they added 2 amp sodium bicarb IV push yesterday and stopped Cozaar, Aldactone, and Farxiga. Nephrology considers DEENA secondary to ATN secondary to septic shock as patient's baseline creatinine is usually near 1. Progress note dated December 10, 2024. 84-year-old male seen today in room 254. He remains on the mechanical ventilator. He is on volume assist-control mode, rate 24, tidal volume 450, FiO2 60%, PEEP of 12. Blood gases show a pO2 of 75, pCO2 of 53, pH of 7.23. The patient is getting saline at 20 cc an hour, propofol at 20 mcg/kg/min, Levophed at 2 mcg/min. In addition, the patient is getting heparin via weight- based protocol, and vital AF at 25 cc an hour which is goal. The patient continues on Tamiflu, and cefepime. His peak airway pressures 33, with a pl ateau pressure of 22. Current labs include a white count of 27.5, hemoglobin 11.6, hematocrit 36.2, and a platelet count of 139,000. PTT is 46.6. Sodium 134, potassium 4.8, chlorides 101, CO2 21, BUN 68, and creatinine 3.51. Glucose is 136. Calcium is 8. Sputum from December 06 is positive for Pseudomonas aeruginosa. Chest x-ray earlier from this morning, shows a stable interstitial pattern with small effusion. Chest x-ray after central line insertion shows a properly placed central line, with the tip of the catheter at the junction of superior vena cava and right atrium. Progress note dated December 11, 2024. 84-year-old male seen today in room 254. He remains on the mechanical chris tilator. He is on volume assist-control mode, rate 28, tidal volume of 450, FiO2 60%, and PEEP of 12. His peak airway pressure is 29, with a plateau pressure of 22. Blood gases show pH 7.2, pCO2 51, pO2 96. The patient is getting NS at 20 cc/h and propofol at 40 mcg/kg/min, no levo since 4 AM this morning. In addition the patient is off heparin currently due to bleeding around central line that was placed yesterday.Vital AF at 25 cc an hour and a goal of 35. The patient continues on cefepime (day 3) and completed Tamiflu. Current labs include WBC of 18.6, hemoglobin of 10.8, hematocrit of 34.7, and platelet count of 115,000. Sodium is 131, potassium 5.5, chloride 100, BUN 89, and creatinine 4.26. Glucose is 138. Calcium 7.9. Urine output remains poor, 690 mL over the last 24 hours. Chest x-ray from earlier from this morning shows blunting of the costophrenic angle, cardiomegaly, pulmonary vascular congestion and bilateral pleural effusions. Patient getting dialysis catheter placed this morning. Progress note dated December 12, 2024. 84-year-old male seen today in room 254. No significant overnight events, yesterday had dialysis catheter placed and received first round of dialysis. He remains on the mechanical ventilator. He is on volume assist-control mode,rr 28, tv 450, fio2 60%, and peep 12. The delta between the peak airway pressure and plateau pressure was 11. Blood gases show pO2 of 74, pCO2 56, and pH of 7.21 the patient is getting NS at 10ml/hr and propofol at 60. Patient is on levo at 0.05. Currently heparin drip on hold. Vital AF at 35. The patient continues on cefepime (day 4) and completed Tamiflu already. Current labs include WBC of 25.8, hemoglobin of 11, platelet count of 122,000, sodium 128, potassium 6, bicarb 20, BUN 81, creatinine 4.31, glucose 123, and calcium 7.7. They took off 1.5 L during hemodialysis yesterday. Chest x-ray shows stable/potentially slightly worsening right basilar airspace opacities.` Physical exam: No acute distress, sedated, with an orally placed endotracheal tube. HEENT examination is grossly unremarkable. Mucous membranes are moist. No oral lesions. Neck supple. Full range of motion. No adenopathy thyromegaly or neck vein distention. Cardiovascular examination reveals regular rhythm rate. S1-S2 normal. No S3 or S4. No discernible murmur noted. Lungs reveal scattered coarse rhonchi. Crackles are appreciated. No wheezes. Breath sounds are equal. Abdomen soft bowel sounds are heard. No masses or tenderness. Extremities are intact. No cyanosis or clubbing. Diffuse anasarca is noted. Skin is without rash or lesion. Neurologic examination cannot be assessed at this time. Assessment: Acute hypoxemic respiratory failure, currently maintained on mechanical ventilation. Persistent sepsis and septic shock, secondary to MRSA bacteremia. Moderate LV dysfunction, with diffuse interstitial edema. Acute kidney injury secondary to hypotension, and possible acute tubular necrosis. History of atrial fibrillation with RVR. Acute on chronic systolic congestive heart failure. COPD exacerbation. History of BPH. History of factor VIII deficiency. Possible pulmonary embolism. History of DVT. Benign essential hypertension. Acute influenza A infection. History of previous right total hip arthroplasty. Plan: Plan dated December 10, 2024. The patient is seen today in room 254. He had an uneventful night according to the nurses. The patient continues on mechanical ventilation. Blood gases show pO2 of 75, pCO2 of 53, pH is 7.23. The patient continues on propofol, and a small amount of Levophed at 2 mcg/min. The patient continues on heparin via weight-based protocol. In addition, the patient continues on Tamiflu, and cefepime. Respiratory mechanics reveal a peak airway pressure of 33 cm of water, and a plateau pressure of 22 cm of water. The patient is receiving tube feedings with vital AF at goal, which is 25 cc an hour. Labs, x-rays, and all m edications are reviewed. Prognosis is guarded. The patient does continue on GI and DVT prophylaxis. Plan dated December 11, 2024. The patient is seen today in room 254. No significant overnight events according to nurses. The patient continues on mechanical ventilation. Blood gases show pO2 96, pCO2 51, and pH is 7.21. Propofol is at 40 mcg/kg/min, no levo since 4 AM this morning. Heparin currently discontinued due to bleeding from the central line as well as in anticipation of the patient getting dialysis catheter today. Patient requires dialysis catheter due to poor urine output and steadily increasing BUN and creatinine. This is in concordance with nephrology's plan. Patient has completed Tamiflu and is on day 3 of cefepime. Respiratory mechanics reveal peak airway pressure of 29 cm of water with a plateau pressure of 22 cm of water. New goal for vital AF is 35. Labs, x-rays, and all medications are reviewed. Prognosis is guarded. The patient does continue on GI and DVT prophylaxis. Plan dated December 12, 2024. The patient is seen today in room 254. No significant overnight events. Patient had a dialysis catheter placed yesterday, and underwent 1 round of marilou lysis then and is currently receiving another round of dialysis this morning. Will reevaluate renal function in the a.m. tomorrow after this round of dialysis and determine if further dialysis is required. The patient continues on mechanical ventilation. Blood gases show pO2 74, pCO2 56, and pH 7.21. NS is running at 10 mL/h and propofol at 60. Patient is currently on 0.08 Levophed. Decreased 60 mg IV solumedrol to BID. Per cardiology metoprolol has been increased to 25 mg 3 times daily for better control of A-fib and continuation of the amiodarone that he is already on. Currently on day 4 of cefepime after positive for Pseudomonas sputum culture. Labs, x-rays, and all medications are reviewed. Prognosis is guarded. The patient does continue on GI and DVT prophylaxis. Objective - Vital Signs Vital signs: Vital Signs Temp 99.2 F 12/12/24 04:00 Pulse 120 H 12/12/24 07:54 Resp 28 H 12/12/24 07:00 BP 117/71 12/11/24 18:30 Pulse Ox 92 L 12/12/24 07:00 FiO2 60 12/12/24 07:35 Intake & Output 12/11/24 12/12/24 12/12/24 18:59 06:59 18:59 Intake Total 2395.725 1127.152 58 Output Total 2332 35 0 Balance 63.725 1092.152 58 Weight 124.5 kg 125 kg Intake: IV 326 316 23 Cefepime 1 gm In Sodium 50 50 Chloride 0.9% 50 ml @ 12. 5 mls/hr IVPB Q12H [facility] Rx #:[id number] Furosemide 100 mg In 60 Sodium Chloride 0.9% 90 ml @ 10 MG/HR 10 mls/hr IV .Q10H [facility] Rx#: [id number] Pressure Bag 36 36 3 kvo 180 230 20 Intake, IV Titration 409.725 331.152 Amount Furosemide 100 mg In 61.333 Sodium Chloride 0.9% 90 ml @ 10 MG/HR 10 mls/hr IV .Q10H [facility] Rx#: [id number] Norepinephrine 4 mg In 89.451 126.645 Sodium Chloride 0.9% 250 ml @ 0.03 MCG/KG/MIN 12. 443 mls/hr IV .[id number] [facility] Rx#:[id number] propofoL 1,000 mg In 258.941 204.507 Empty Bag 1 bag @ 15 MCG/ KG/MIN 9.798 mls/hr IV . [id number] [facility] Rx#:[id number] Tube Feeding 370 420 35 Hemodialysis 1200 Other 90 60 Output: Urine 32 35 0 Hemodialysis 1550 Hemodialysis Net Amount 750 Other: Voiding Method Indwelling Catheter Indwelling Catheter ABP, PAP, CO, CI - Last Documented Arterial Blood Pressure 89/44 - Labs CBC & Chem 7: 12/12/24 04:20 12/12/24 04:20 Labs: Abnormal Lab Results - Last 24 Hours (Table) 12/11/24 12/11/24 12/11/24 Range/Units 06:03 12:29 18:28 WBC (3.8-10.6) k/uL RBC (4.30-5.90) m/uL Hgb (13.0-17.5) gm/dL Hct (39.0-53.0) % RDW (11.5-15.5) % Plt Count (150-450) k/uL Neutrophils # (Manual) (1.3-7.7) k/uL Lymphocytes # (Manual) (1.0-4.8) k/uL Nucleated RBCs (0-0) /100 WBC ABG pH 7.21 L (7.35-7.45) ABG pCO2 51 H (35-45) mmHg ABG pO2 (83-108) mmHg ABG HCO3 20 L (21-25) mmol/L ABG O2 Saturation 97.2 H (94-97) % Hemoglobin 10.6 L (13.0-17.5) gm/dL Sodium (137-145) mmol/L Potassium (3.5-5.1) mmol/L Chloride (98-107) mmol/L Carbon Dioxide (22-30) mmol/L BUN (9-20) mg/dL Creatinine (0.66-1.25) mg/dL Glucose (74-99) mg/dL POC Glucose (mg/dL) 177 H 142 H (70-110) mg/dL Calcium (8.4-10.2) mg/dL 12/11/24 12/12/24 12/12/24 Range/Units 23:38 04:20 04:20 WBC 25.8 H (3.8-10.6) k/uL RBC 3.91 L (4.30-5.90) m/uL Hgb 11.0 L (13.0-17.5) gm/dL Hct 34.7 L (39.0-53.0) % RDW 16.0 H (11.5-15.5) % Plt Count 122 L (150-450) k/uL Neutrophils # (Manual) 25.28 H (1.3-7.7) k/uL Lymphocytes # (Manual) 0.26 L (1.0-4.8) k/uL Nucleated RBCs 2 H (0-0) /100 WBC ABG pH (7.35-7.45) ABG pCO2 (35-45) mmHg ABG pO2 (83-108) mmHg ABG HCO3 (21-25) mmol/L ABG O2 Saturation (94-97) % Hemoglobin (13.0-17.5) gm/dL Sodium 128 L (137-145) mmol/L Potassium 6.0 H (3.5-5.1) mmol/L Chloride 96 L (98-107) mmol/L Carbon Dioxide 20 L (22-30) mmol/L BUN 81 H (9-20) mg/dL Creatinine 4.31 H (0.66-1.25) mg/dL Glucose 123 H (74-99) mg/dL POC Glucose (mg/dL) 133 H (70-110) mg/dL Calcium 7.7 L (8.4-10.2) mg/dL 12/12/24 12/12/24 Range/Units 05:26 06:20 WBC (3.8-10.6) k/uL RBC (4.30-5.90) m/uL Hgb (13.0-17.5) gm/dL Hct (39.0-53.0) % RDW (11.5-15.5) % Plt Count (150-450) k/uL Neutrophils # (Manual) (1.3-7.7) k/uL Lymphocytes # (Manual) (1.0-4.8) k/uL Nucleated RBCs (0-0) /100 WBC ABG pH 7.21 L (7.35-7.45) ABG pCO2 56 H (35-45) mmHg ABG pO2 74 L (83-108) mmHg ABG HCO3 (21-25) mmol/L ABG O2 Saturation 93.2 L (94-97) % Hemoglobin 10.8 L (13.0-17.5) gm/dL Sodium (137-145) mmol/L Potassium (3.5-5.1) mmol/L Chloride (98-107) mmol/L Carbon Dioxide (22-30) mmol/L BUN (9-20) mg/dL Creatinine (0.66-1.25) mg/dL Glucose (74-99) mg/dL POC Glucose (mg/dL) 127 H (70-110) mg/dL Calcium (8.4-10.2) mg/dL
[2024-12-12 11:59] LABS: Glucose,Whole Blood 149 mg/dL (70-110)
--- NOTE | 2024-12-12 13:01 | P.PN ---
Subjective Progress Note Date: 12/12/24 Principal diagnosis: Reason for follow-up is acute influenza A/Pseudomonas pneumonia Patient is a 84-year-old male with a past medical history significant for atrial fibrillation diabetes mellitus DVT hypertension hyperlipidemia recent admission to the hospital diagnosed with MRSA bacteremia source was likely pneumonia, did have a negative LIS presenting back to the hospital for increasing shortness of breath has been diagnosed with sepsis secondary pneumonia also tested positive for influenza A sputum showing Pseudomonas. On today's evaluation that is 12/12/2024,the patient remains to be afebrile, patient is on on the ventilator FiO2 is currently at 60% patient is requiring more pressor support and is undergoing dialysis and did have an session of dialysis last evening with removal of 500 cc as reported by the industrial electrical technician no other changes reported by nursing staff. Patient white count is slightly up 25.8 this morning creatinine is 4.31 blood culture have been negative Objective - Vital Signs Vital signs: Vital Signs Temp 99.2 F 12/12/24 04:00 Pulse 131 H 12/12/24 10:00 Resp 17 12/12/24 10:00 BP 109/66 12/12/24 10:00 Pulse Ox 91 L 12/12/24 10:00 FiO2 60 12/12/24 07:35 Intake & Output 12/11/24 12/12/24 12/12/24 18:59 06:59 18:59 Intake Total 2395.725 1227.152 58 Output Total 2332 35 0 Balance 63.725 1192.152 58 Weight 124.5 kg 125 kg Intake: IV 326 316 23 Cefepime 1 gm In Sodium 50 50 Chloride 0.9% 50 ml @ 12. 5 mls/hr IVPB Q12H [facility] Rx #:[id number] Furosemide 100 mg In 60 Sodium Chloride 0.9% 90 ml @ 10 MG/HR 10 mls/hr IV .Q10H [facility] Rx#: [id number] Pressure Bag 36 36 3 kvo 180 230 20 Intake, IV Titration 409.725 431.152 Amount Furosemide 100 mg In 61.333 Sodium Chloride 0.9% 90 ml @ 10 MG/HR 10 mls/hr IV .Q10H [facility] Rx#: [id number] Norepinephrine 4 mg In 89.451 126.645 Sodium Chloride 0.9% 250 ml @ 0.03 MCG/KG/MIN 12. 443 mls/hr IV .[id number] [facility] Rx#:[id number] propofoL 1,000 mg In 258.941 304.507 Empty Bag 1 bag @ 15 MCG/ KG/MIN 9.798 mls/hr IV . [id number] [facility] Rx#:[id number] Tube Feeding 370 420 35 Hemodialysis 1200 Other 90 60 Output: Urine 32 35 0 Hemodialysis 1550 Hemodialysis Net Amount 750 Other: Voiding Method Indwelling Catheter Indwelling Catheter ABP, PAP, CO, CI - Last Documented Arterial Blood Pressure 89/54 - Exam GENERAL DESCRIPTION: An elderly male intubated on the vent RESPIRATORY SYSTEM: Unlabored breathing , decreased breath sounds at bases HEART: S1 S2 regular rate and rhythm , ABDOMEN: Soft , no tenderness EXTREMITIES: Mild swelling to the leg no redness - Labs CBC & Chem 7: 12/12/24 04:20 12/12/24 04:20 Labs: Abnormal Lab Results - Last 24 Hours (Table) 12/11/24 12/11/24 12/11/24 Range/Units 12:29 18:28 23:38 WBC (3.8-10.6) k/uL RBC (4.30-5.90) m/uL Hgb (13.0-17.5) gm/dL Hct (39.0-53.0) % RDW (11.5-15.5) % Plt Count (150-450) k/uL Neutrophils # (Manual) (1.3-7.7) k/uL Lymphocytes # (Manual) (1.0-4.8) k/uL Nucleated RBCs (0-0) /100 WBC ABG pH (7.35-7.45) ABG pCO2 (35-45) mmHg ABG pO2 (83-108) mmHg ABG O2 Saturation (94-97) % Hemoglobin (13.0-17.5) gm/dL Sodium (137-145) mmol/L Potassium (3.5-5.1) mmol/L Chloride (98-107) mmol/L Carbon Dioxide (22-30) mmol/L BUN (9-20) mg/dL Creatinine (0.66-1.25) mg/dL Glucose (74-99) mg/dL POC Glucose (mg/dL) 177 H 142 H 133 H (70-110) mg/dL Calcium (8.4-10.2) mg/dL 12/12/24 12/12/24 12/12/24 Range/Units 04:20 04:20 05:26 WBC 25.8 H (3.8-10.6) k/uL RBC 3.91 L (4.30-5.90) m/uL Hgb 11.0 L (13.0-17.5) gm/dL Hct 34.7 L (39.0-53.0) % RDW 16.0 H (11.5-15.5) % Plt Count 122 L (150-450) k/uL Neutrophils # (Manual) 25.28 H (1.3-7.7) k/uL Lymphocytes # (Manual) 0.26 L (1.0-4.8) k/uL Nucleated RBCs 2 H (0-0) /100 WBC ABG pH 7.21 L (7.35-7.45) ABG pCO2 56 H (35-45) mmHg ABG pO2 74 L (83-108) mmHg ABG O2 Saturation 93.2 L (94-97) % Hemoglobin 10.8 L (13.0-17.5) gm/dL Sodium 128 L (137-145) mmol/L Potassium 6.0 H (3.5-5.1) mmol/L Chloride 96 L (98-107) mmol/L Carbon Dioxide 20 L (22-30) mmol/L BUN 81 H (9-20) mg/dL Creatinine 4.31 H (0.66-1.25) mg/dL Glucose 123 H (74-99) mg/dL POC Glucose (mg/dL) (70-110) mg/dL Calcium 7.7 L (8.4-10.2) mg/dL 12/12/24 Range/Units 06:20 WBC (3.8-10.6) k/uL RBC (4.30-5.90) m/uL Hgb (13.0-17.5) gm/dL Hct (39.0-53.0) % RDW (11.5-15.5) % Plt Count (150-450) k/uL Neutrophils # (Manual) (1.3-7.7) k/uL Lymphocytes # (Manual) (1.0-4.8) k/uL Nucleated RBCs (0-0) /100 WBC ABG pH (7.35-7.45) ABG pCO2 (35-45) mmHg ABG pO2 (83-108) mmHg ABG O2 Saturation (94-97) % Hemoglobin (13.0-17.5) gm/dL Sodium (137-145) mmol/L Potassium (3.5-5.1) mmol/L Chloride (98-107) mmol/L Carbon Dioxide (22-30) mmol/L BUN (9-20) mg/dL Creatinine (0.66-1.25) mg/dL Glucose (74-99) mg/dL POC Glucose (mg/dL) 127 H (70-110) mg/dL Calcium (8.4-10.2) mg/dL Assessment and Plan (1) Influenza A Current Visit: Yes Status: Acute Code(s): J10.1 - FLU DUE TO OTH IDENT INFLUENZA VIRUS W OTH RESP MANIFEST SNOMED Code(s): 629353042 (2) Leukocytosis Current Visit: Yes Status: Acute Code(s): D72.829 - ELEVATED WHITE BLOOD CELL COUNT, UNSPECIFIED SNOMED Code(s): 747050961 (3) Pneumonia Current Visit: No Status: Acute Code(s): J18.9 - PNEUMONIA, UNSPECIFIED ORGANISM SNOMED Code(s): 969598650 (4) Sepsis Current Visit: No Status: Acute Code(s): A41.9 - SEPSIS, UNSPECIFIED ORGANISM SNOMED Code(s): 03379691 Plan: 1patient presented to hospital with sepsis in this patient who did have hypotension requiring pressor support elevated white count source is multifactorial possible component of pneumonia with the sputum not showing Pseudomonas aeruginosa and recently did have a history of MRSA pneumonia for the patient has received adequate vancomycin which has been discontinued. 2 Patient with acute influenza A, patient is covered with Tamiflu to finish a 5-day course of therapy 3-patient did have worsening of his kidney function and has been started on hemodialysis with a second session today 4- patient is afebrile patient white count slightly up 25,000 today that we will monitor closely blood culture have been negative sputum is showing Pseudomonas aeruginosa 4patient will be treated with cefepime and will monitor clinical course closely Dictation was produced using [employer] dictation software. please excuse any grammatical, word or spelling errors. Time with Patient: Less than 30
--- NOTE | 2024-12-12 13:13 | P.PN ---
Subjective Progress Note Date: 12/12/24 HISTORY OF PRESENT ILLNESS This is a 84-year-old male with past medical history of hypertension, paroxysmal atrial fibrillation on Xarelto, benign prostatic hypertrophy, hiatal hernia, hereditary factor VIII deficiency, hyperlipidemia, mild intermittent asthma, mild COPD, patient was recently admitted to [facility] after he underwent right total hip arthroplasty that was done by Dr. Thakkar and he has been at 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 December 04, 2024 while he was there he was requiring about 5 L nasal cannula of oxygen, I received a phone call from the nursing staff stating that the patient is in acute respiratory distress today, he was given 60 mg IM of Lasix as well as 80 mg IM of Solu-Medrol with nebulizer treatment along with Pulmicort and DuoNeb, without any relief, he was placed on nonrebreather, and patient was sent to the ER for evaluation, he was found to have a significant leukocytosis with a white count of 36,000, his swab came back positive for influenza A, and chest x-ray showed evidence of cardiomegaly as well as basilar pneumonia patient was started back on his vancomycin as well as cefepime he was started on Tamiflu, he was started on Lasix 80 mg IV push every 12 hours, along with Solu-Medrol 60 mg IV push every 6 hours, DuoNeb nebulization 4 times every day Pulmicort 1 mg nebulization twice every day he is currently on BiPAP, pulmonary consultation as well as cardiology consultation. Sputum culture will be obtained as well as blood cultures. 12/07: While the patient yesterday in the emergency department he went into severe respiratory distress while he was on the BiPAP, he did receive 1 dose of Lasix 80 mg IV push, along with Solu-Medrol 60 mg IV push along with nebulized treatment in the form of DuoNeb as well as Pulmicort, without relief, at that time the decision was made for the patient to be intubated and transferred to the intensive care unit from the emergency department, patient is currently sedated on the ventilator, he is currently on amiodarone drip, as well as propofol drip, he is on 90% FiO2, with a PEEP of 5, pulmonary/critical care is following the patient very closely, cardiology is following as well, patient was started on IV antibiotic in the form of vancomycin as well as cefepime, he was started on Tamiflu as well due to influenza A, his white count initially was elevated at 43,000 down to 38,000, patient appears quite sick at this point in time, his prognosis continue be guarded, will continue with aggressive treatment plan for now, we will follow-up with the patient very closely. 12/08: Patient is laying down in bed he continues to be on the ventilator, currently FiO2 of 60%, PEEP of 12, tidal volume of 550, he continues to have a significant edema both upper and lower extremities, he is not getting any more IV fluid, will wean down his Levophed drip, continue IV antibiotic in the form of vancomycin as well as cefepime, sputum cultures growing Pseudomonas aeruginosa, currently on cefepime as well as vancomycin with pharmacy to dose to be controlled, continue also with Tamiflu for influenza A, patient was seen earlier by nephrology for acute kidney injury due to acute tubular necrosis and vasomotor nephropathy due to septic shock, continue current Lasix 80 mg IV push every 12 hours, monitor the patient input and output and daily weight, ultr asound of the kidney was obtained. 12/09: Patient is still intubated on the ventilator, he is currently on AC mode with a tidal volume of 550 respiration of 24, FiO2 of 60%, PEEP of 12, x-ray still showing evidence of pulmonary edema, he has been getting Lasix 80 mg IV push every 12 hours, he has an acute kidney injury that is getting worse today, his BUN and creatinine is elevated, nephrology is following, patient continues to be on Levophed, he has been on cefepime we will monitor the patient very closely, continue current treatment plan, will follow-up with the patient very closely, patient has been seen by nephrology, cardiology, as well as by pulmonary medicine and critical care, patient also was seen in consultation by infectious disease at this point in time, taken off vancomycin and Tamiflu due to acute kidney injury. 12/10: Patient is laying down in bed he continues to be on the ventilator, his current vent setting is FiO2 of 60%, respiratory rate is 24, tidal volume 450, and FiO2 of 60%, PEEP of 12, patient blood gases showed evidence of metabolic and respiratory acidosis with hypoxemia his pO2 is about 72 and pCO2 is 56, patient is getting a central line today, he continues to have worsening kidney function, will continue current treatment plan, continue follow-up with the patient very closely 12/11: Patient is laying down in bed continues to be sedated on the ventilator, worsening renal function his creatinine is up to 4.5, decreased urine output, was on lasix drip without improvement and he was started on HD today for 2 hours , patient continues to be treated with cefepime for Pseudomonas pneumonia, he continued to have a septic shock he is currently on Levophed, he is currently on propofol, his prognosis continues to be guarded, patient has underlying ca rdiomyopathy ejection fraction 45%, he continues to have atrial fibrillation for which she has been on amiodarone, patient has been followed by multiple specialties including ICU/pulmonary medicine, cardiology, nephrology, infectious disease, we will continue to follow-up with the patient very closely, he may require to have hemodialysis even for short period of time to improve his kidney function as well as fluid status. 12/12: Patient remains on the ventilator, his current tidal volume is 450 FiO2 of 60%, and a PEEP of 12, he is still requiring quite a bit of sedation he is still requiring Levophed to keep his pressure up, he is getting his edema hemodialysis for the second day today, his blood pressure is marginal, we discussed with the nursing staff increasing his Levophed little bit, but he is still in atrial fibrillation with rapid ventricular response, his urine output is minimal, trying to get another 500 cc out of his body today, chest x-ray still showing evidence of right lower lobe pneumonia, will follow-up with the patient very closely at this point patient prognosis continue to be guarded, I still think that the patient can turn around, we can continue with the current treatment plan continue with cefepime continue with aggressive pulmonary toileting, continue to follow-up with the patient very closely. REVIEW OF SYSTEMS Patient is sedated on the ventilator. PHYSICAL EXAMINATION Gen: This is an obese 84-year-old is sedated on the ventilator HEENT: Head is atraumatic, normocephalic. Pupils equal, round. Sclerae is anicteric, there is an NG tube in place, and ET tube placed NECK: Supple. No JVD. No lymphadenopathy. No thyromegaly. LUNGS: decreased breath sound at bases, few rhonchi, minimal expiratory wheezes, no chest wall tenderness, no intercostal retractions. HEART: First heart sound is depressed, second heart sound is normal, 2/6 systolic ejection murmur at the left sternal border, irregular irregular due to atrial fibrillation. ABDOMEN: Soft. Bowel sounds are present. No masses. No tenderness. EXTREMITIES: +2 pedal edema. No calf tenderness. Pain in the left hip. Dorsalis pedis palpable bilaterally. NEUROLOGICAL: Patient is currently sedated on the ventilator. ASSESSMENT AND PLAN: 1. Acute vent dependent hypoxemic respiratory failure due to acute systolic heart failure as well as acute left lower lobe Pseudomonas pneumonia and influenza A. Continue Solu-Medrol 60 mg IV push every 6 hours, continue DuoNeb 3 mL nebulization every 4 hours, continue Pulmicort 1 mg of Lasix twice every day, continue Lasix 80 mg IV push every 12 hours, continue cefepime 1 g IV piggyback every 12 hours, monitor the patient symptoms very closely, patient is still requiring FiO2 of 60% at this point in time. 2. Pseudomonas pneumonia with septic shock . Try to wean Levophed off continue IV antibiotic in the form of cefepime 1 g piggyback every 12 hours, continue oxygen support, try to wean FiO2 down, continue to monitor the patient very closely. Infectious disease consultation from Dr. Agosto is appreciated. Monitor the patient symptoms very closely, blood cultures so far no growth after 72 hours. 3. Atrial fibrillation with rapid ventricular response. Discontinue amiodarone drip, continue patient on amiodarone 200 mg orally twice every day, continue on metoprolol 25 mg orally twice every day, monitor the patient symptoms very closely. 4. 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 Continue Lasix 80 mg IV push every 12 hours, continue to monitor the patient very closely. Patient is currently on Levophed drip is currently not taking any antihypertensive medication including metoprolol. 5. Acute kidney injury due to acute tubular necrosis with vasomotor nephropathy due to septic shock. Patient started on hemodialysis yesterday and he is getting hemodialysis today, his blood pressure is marginal his Levophed was increased. 6. Anion gap antibiotic acidosis due to acute kidney injury monitor the patient symptoms very closely, patient may need to be started on hemodialysis in the next 24 hours if there is no improvement. 7. COPD exacerbation. Continue Solu-Medrol 60 mg IV push every 6 hours, continue Pulmicort 1 mg nebulization twice every day, DuoNeb 3 manipulation 4 times every day, oxygen support, currently on the ventilator. 8. Mild intermittent asthma. Continue Singulair 10 mg at bedtime, loratadine 10 mg once every day, continue aggressive pulmonary toileting. 9. Benign prostatic hypertrophy. Continue Flomax 0.4 mg currently has a Henry catheter in place. 10. Hereditary factor VIII deficiency. Continue heparin drip for now. 11. Hyperlipidemia. Continue Zetia 10 mg daily and Atorvastatin 40 mg once a day. Monitor the patient lipid panel, keep LDL 55-70 12. Hypertension and hypertensive cardiovascular disease. patient blood pressure is soft at this time, continue metoprolol 25 mg twice every day for now. 13. GI prophylaxis. Protonix 40 mg IV push daily. 14. DVT prophylaxis. Continue drip for now. 15. Major depressive disorder. Continue patient on Effexor XR 37.5 mg orally once every day. 16. Prognosis is guarded 17. Full code. 18. Discussed his care with pulmonary team Dr. Welsh. Objective - Vital Signs Vital signs: Vital Signs Temp 98.1 F 12/12/24 12:13 Pulse 103 H 12/12/24 12:13 Resp 28 H 12/12/24 12:13 BP 109/53 12/12/24 12:13 Pulse Ox 95 12/12/24 11:30 FiO2 60 12/12/24 12:13 Intake & Output 12/11/24 12/12/24 12/12/24 18:59 06:59 18:59 Intake Total 2395.725 1227.152 700.294 Output Total 2332 35 2500 Balance 63.725 1192.152 -1799.706 Weight 124.5 kg 125 kg Intake: IV 326 316 115 Cefepime 1 gm In Sodium 50 50 Chloride 0.9% 50 ml @ 12. 5 mls/hr IVPB Q12H [facility] Rx #:[id number] Furosemide 100 mg In 60 Sodium Chloride 0.9% 90 ml @ 10 MG/HR 10 mls/hr IV .Q10H [facility] Rx#: [id number] Pressure Bag 36 36 15 kvo 180 230 100 Intake, IV Titration 409.725 431.152 50.294 Amount Furosemide 100 mg In 61.333 Sodium Chloride 0.9% 90 ml @ 10 MG/HR 10 mls/hr IV .Q10H [facility] Rx#: [id number] Norepinephrine 4 mg In 89.451 126.645 Sodium Chloride 0.9% 250 ml @ 0.03 MCG/KG/MIN 12. 443 mls/hr IV .[id number] [facility] Rx#:[id number] propofoL 1,000 mg In 258.941 304.507 50.294 Empty Bag 1 bag @ 15 MCG/ KG/MIN 9.798 mls/hr IV . [id number] [facility] Rx#:[id number] Tube Feeding 370 420 35 Hemodialysis 1200 500 Other 90 60 Output: Urine 32 35 0 Hemodialysis 1550 1500 Hemodialysis Net Amount 750 1000 Other: Voiding Method Indwelling Catheter Indwelling Catheter Indwelling Catheter ABP, PAP, CO, CI - Last Documented Arterial Blood Pressure 99/56 - Labs CBC & Chem 7: 12/12/24 04:20 12/12/24 04:20 Labs: Abnormal Lab Results - Last 24 Hours (Table) 12/11/24 12/11/24 12/12/24 Range/Units 18:28 23:38 04:20 WBC 25.8 H (3.8-10.6) k/uL RBC 3.91 L (4.30-5.90) m/uL Hgb 11.0 L (13.0-17.5) gm/dL Hct 34.7 L (39.0-53.0) % RDW 16.0 H (11.5-15.5) % Plt Count 122 L (150-450) k/uL Neutrophils # (Manual) 25.28 H (1.3-7.7) k/uL Lymphocytes # (Manual) 0.26 L (1.0-4.8) k/uL Nucleated RBCs 2 H (0-0) /100 WBC ABG pH (7.35-7.45) ABG pCO2 (35-45) mmHg ABG pO2 (83-108) mmHg ABG O2 Saturation (94-97) % Hemoglobin (13.0-17.5) gm/dL Sodium (137-145) mmol/L Potassium (3.5-5.1) mmol/L Chloride (98-107) mmol/L Carbon Dioxide (22-30) mmol/L BUN (9-20) mg/dL Creatinine (0.66-1.25) mg/dL Glucose (74-99) mg/dL POC Glucose (mg/dL) 142 H 133 H (70-110) mg/dL Calcium (8.4-10.2) mg/dL 12/12/24 12/12/24 12/12/24 Range/Units 04:20 05:26 06:20 WBC (3.8-10.6) k/uL RBC (4.30-5.90) m/uL Hgb (13.0-17.5) gm/dL Hct (39.0-53.0) % RDW (11.5-15.5) % Plt Count (150-450) k/uL Neutrophils # (Manual) (1.3-7.7) k/uL Lymphocytes # (Manual) (1.0-4.8) k/uL Nucleated RBCs (0-0) /100 WBC ABG pH 7.21 L (7.35-7.45) ABG pCO2 56 H (35-45) mmHg ABG pO2 74 L (83-108) mmHg ABG O2 Saturation 93.2 L (94-97) % Hemoglobin 10.8 L (13.0-17.5) gm/dL Sodium 128 L (137-145) mmol/L Potassium 6.0 H (3.5-5.1) mmol/L Chloride 96 L (98-107) mmol/L Carbon Dioxide 20 L (22-30) mmol/L BUN 81 H (9-20) mg/dL Creatinine 4.31 H (0.66-1.25) mg/dL Glucose 123 H (74-99) mg/dL POC Glucose (mg/dL) 127 H (70-110) mg/dL Calcium 7.7 L (8.4-10.2) mg/dL 12/12/24 Range/Units 11:58 WBC (3.8-10.6) k/uL RBC (4.30-5.90) m/uL Hgb (13.0-17.5) gm/dL Hct (39.0-53.0) % RDW (11.5-15.5) % Plt Count (150-450) k/uL Neutrophils # (Manual) (1.3-7.7) k/uL Lymphocytes # (Manual) (1.0-4.8) k/uL Nucleated RBCs (0-0) /100 WBC ABG pH (7.35-7.45) ABG pCO2 (35-45) mmHg ABG pO2 (83-108) mmHg ABG O2 Saturation (94-97) % Hemoglobin (13.0-17.5) gm/dL Sodium (137-145) mmol/L Potassium (3.5-5.1) mmol/L Chloride (98-107) mmol/L Carbon Dioxide (22-30) mmol/L BUN (9-20) mg/dL Creatinine (0.66-1.25) mg/dL Glucose (74-99) mg/dL POC Glucose (mg/dL) 149 H (70-110) mg/dL Calcium (8.4-10.2) mg/dL
--- NOTE | 2024-12-12 15:08 | P.PN ---
Subjective Patient is seen for follow-up for acute kidney injury. Patient remains on the vent. FiO2 at 60% with PEEP of 12. Started hemodialysis on 12/11/24 for worsening acute kidney injury and volume overload Chest x-ray shows bilateral interstitial infiltrates/interstitial edema Potassium 6.1 Objective - Vital Signs Vital signs: Vital Signs Temp 98.1 F 12/12/24 12:13 Pulse 101 H 12/12/24 13:30 Resp 28 H 12/12/24 13:30 BP 109/53 12/12/24 12:13 Pulse Ox 96 12/12/24 13:30 FiO2 60 12/12/24 12:13 Intake & Output 12/11/24 12/12/24 12/12/24 18:59 06:59 18:59 Intake Total 2395.725 1227.152 846.294 Output Total 2332 35 2505 Balance 63.725 1192.152 -1658.706 Weight 124.5 kg 125 kg Intake: IV 326 316 161 Cefepime 1 gm In Sodium 50 50 Chloride 0.9% 50 ml @ 12. 5 mls/hr IVPB Q12H [facility] Rx #:[id number] Furosemide 100 mg In 60 Sodium Chloride 0.9% 90 ml @ 10 MG/HR 10 mls/hr IV .Q10H [facility] Rx#: [id number] Pressure Bag 36 36 21 kvo 180 230 140 Intake, IV Titration 409.725 431.152 150.294 Amount Furosemide 100 mg In 61.333 Sodium Chloride 0.9% 90 ml @ 10 MG/HR 10 mls/hr IV .Q10H [facility] Rx#: [id number] Norepinephrine 4 mg In 89.451 126.645 Sodium Chloride 0.9% 250 ml @ 0.03 MCG/KG/MIN 12. 443 mls/hr IV .[id number] [facility] Rx#:[id number] propofoL 1,000 mg In 258.941 304.507 150.294 Empty Bag 1 bag @ 15 MCG/ KG/MIN 9.798 mls/hr IV . [id number] BRIANA Rx#:[id number] Tube Feeding 370 420 35 Hemodialysis 1200 500 Other 90 60 Output: Urine 32 35 5 Hemodialysis 1550 1500 Hemodialysis Net Amount 750 1000 Other: Voiding Method Indwelling Catheter Indwelling Catheter Indwelling Catheter ABP, PAP, CO, CI - Last Documented Arterial Blood Pressure 106/55 - Exam Patient is on the vent. Examination of the heart S1 and S2 Examination of the lungs bilateral breath sounds are heard Abdomen is soft nontender Examination of lower extremities shows edema 1+ bilaterally. - Labs CBC & Chem 7: 12/12/24 04:20 12/12/24 04:20 Labs: Abnormal Lab Results - Last 24 Hours (Table) 12/11/24 12/11/24 12/12/24 Range/Units 18:28 23:38 04:20 WBC 25.8 H (3.8-10.6) k/uL RBC 3.91 L (4.30-5.90) m/uL Hgb 11.0 L (13.0-17.5) gm/dL Hct 34.7 L (39.0-53.0) % RDW 16.0 H (11.5-15.5) % Plt Count 122 L (150-450) k/uL Neutrophils # (Manual) 25.28 H (1.3-7.7) k/uL Lymphocytes # (Manual) 0.26 L (1.0-4.8) k/uL Nucleated RBCs 2 H (0-0) /100 WBC ABG pH (7.35-7.45) ABG pCO2 (35-45) mmHg ABG pO2 (83-108) mmHg ABG O2 Saturation (94-97) % Hemoglobin (13.0-17.5) gm/dL Sodium (137-145) mmol/L Potassium (3.5-5.1) mmol/L Chloride (98-107) mmol/L Carbon Dioxide (22-30) mmol/L BUN (9-20) mg/dL Creatinine (0.66-1.25) mg/dL Glucose (74-99) mg/dL POC Glucose (mg/dL) 142 H 133 H (70-110) mg/dL Calcium (8.4-10.2) mg/dL 12/12/24 12/12/24 12/12/24 Range/Units 04:20 05:26 06:20 WBC (3.8-10.6) k/uL RBC (4.30-5.90) m/uL Hgb (13.0-17.5) gm/dL Hct (39.0-53.0) % RDW (11.5-15.5) % Plt Count (150-450) k/uL Neutrophils # (Manual) (1.3-7.7) k/uL Lymphocytes # (Manual) (1.0-4.8) k/uL Nucleated RBCs (0-0) /100 WBC ABG pH 7.21 L (7.35-7.45) ABG pCO2 56 H (35-45) mmHg ABG pO2 74 L (83-108) mmHg ABG O2 Saturation 93.2 L (94-97) % Hemoglobin 10.8 L (13.0-17.5) gm/dL Sodium 128 L (137-145) mmol/L Potassium 6.0 H (3.5-5.1) mmol/L Chloride 96 L (98-107) mmol/L Carbon Dioxide 20 L (22-30) mmol/L BUN 81 H (9-20) mg/dL Creatinine 4.31 H (0.66-1.25) mg/dL Glucose 123 H (74-99) mg/dL POC Glucose (mg/dL) 127 H (70-110) mg/dL Calcium 7.7 L (8.4-10.2) mg/dL 12/12/24 Range/Units 11:58 WBC (3.8-10.6) k/uL RBC (4.30-5.90) m/uL Hgb (13.0-17.5) gm/dL Hct (39.0-53.0) % RDW (11.5-15.5) % Plt Count (150-450) k/uL Neutrophils # (Manual) (1.3-7.7) k/uL Lymphocytes # (Manual) (1.0-4.8) k/uL Nucleated RBCs (0-0) /100 WBC ABG pH (7.35-7.45) ABG pCO2 (35-45) mmHg ABG pO2 (83-108) mmHg ABG O2 Saturation (94-97) % Hemoglobin (13.0-17.5) gm/dL Sodium (137-145) mmol/L Potassium (3.5-5.1) mmol/L Chloride (98-107) mmol/L Carbon Dioxide (22-30) mmol/L BUN (9-20) mg/dL Creatinine (0.66-1.25) mg/dL Glucose (74-99) mg/dL POC Glucose (mg/dL) 149 H (70-110) mg/dL Calcium (8.4-10.2) mg/dL Assessment and Plan Assessment: 1. Acute kidney injury secondary to ATN secondary to septic shock. Baseline creatinine near 1 and peaked at 4.3. Nonoliguric. No hydronephrosis noted on kidney ultrasound. Started hemodialysis on 12/11/24 2. Acute hypoxic respiratory failure secondary to pneumonia and component of CHF 3. Septic shock. Patient with influenza A pneumonia and sputum culture positive for Pseudomonas. 4. Metabolic acidosis secondary to acute kidney injury. Better. 5. A-fib with RVR maintained on oral amiodarone. 6. Cardiomyopathy with ejection fraction of 40 to 45%. 7. Fluid overload. Plan: Repeat hemodialysis in a.m. We will attempt sled procedure due to continued hypotension.
[2024-12-12 17:23] LABS: Glucose,Whole Blood 150 mg/dL (70-110)
[2024-12-12] MEDS: methylPREDNISolone SOD SUCCI 125 MG/2 ML VIAL IV SCH (21:12)
[2024-12-12 23:31] LABS: Glucose,Whole Blood 138 mg/dL (70-110)
[2024-12-13] MEDS ORDERED: ZINC OXIDE PASTE (Z-GUARD) 1 APPLIC TOPICAL PRN (01:12)
[2024-12-13 05:28] LABS: ABG Base Excess -5.9 mmol/L; ABG HCO3 21 mmol/L (21-25); ABG Oxygen Saturation 97.9 % (94-97); ABG PCO2 48 mmHg (35-45); ABG PH 7.25 (7.35-7.45); ABG PO2 106 mmHg (83-108); ABG TCO2 23 mmol/L (19-24)
[2024-12-13 05:31] LABS: Allen Test Performed? No
[2024-12-13 05:33] LABS: Glucose,Whole Blood 151 mg/dL (70-110)
[2024-12-13 05:33] LABS: Glucose,Whole Blood 162 mg/dL (70-110)
[2024-12-13 05:42] LABS: HCT 33.2 % (39.0-53.0); HGB 10.6 gm/dL (13.0-17.5); Hypochromasia Moderate; MCH 28.2 pg (25.0-35.0); MCHC 31.9 g/dL (31.0-37.0); MCV 88.5 fL (80.0-100.0); Mean Platelet Volume 8.8; Platelet Count 107 k/uL (150-450); RBC 3.76 m/uL (4.30-5.90); RDW 15.8 % (11.5-15.5); WBC 26.6 k/uL (3.8-10.6)
[2024-12-13 05:51] LABS: ALT 51 U/L (4-49); AST 48 U/L (17-59); African American GFR (CKD) 15 (>60 ml/min/1.73 sqM); Albumin 2.5 g/dL (3.5-5.0); Alkaline Phosphatase 82 U/L (38-126); Anion Gap 13 mmol/L; Blood Urea Nitrogen 83 mg/dL (9-20); Calcium 7.8 mg/dL (8.4-10.2); Carbon Dioxide 19 mmol/L (22-30); Chloride 95 mmol/L (98-107); Glucose 147 mg/dL (74-99); Magnesium 2.6 mg/dL (1.6-2.3); Non-African American GFR(CKD) 13 (>60 ml/min/1.73 sqM); Potassium 5.9 mmol/L (3.5-5.1); Sodium 127 mmol/L (137-145); Total Bilirubin 0.5 mg/dL (0.2-1.3); Total Protein 4.8 g/dL (6.3-8.2)
[2024-12-13 07:05] LABS: Lymphocytes # (M) 0.27 k/uL (1.0-4.8); Monocytes # (M) 0.27 k/uL (0-1.0); Neutrophils # (M) 26.33 k/uL (1.3-7.7); Neutrophils % (M) 99 %; Nucleated Red Blood Cells 0 /100 WBC (0-0); Total Cells Counted 200
[2024-12-13] MEDS: METOPROLOL TARTRATE 25 MG TAB PO SCH (08:09)
--- NOTE | 2024-12-13 08:15 | XR ---
EXAMINATION TYPE: XR chest 1V portable DATE OF EXAM: 12/13/2024 4:25 AM COMPARISON: 12/12/2024 CLINICAL INDICATION: Male, 84 years old with history of Ventilator ICU, difficulty breathing TECHNIQUE: XR chest 1V portable view(s) obtained. FINDINGS: The heart size is normal. The pulmonary vasculature is prominent. Previous right lower lobe infiltrate has improved. Endotracheal tube tip is 10.3 cm above the landen. Nasogastric tube transverses the thorax tip in the left upper quadrant of the abdomen. Left central venous catheter tip is in the superior vena cava re gion. IMPRESSION: 1. Improving right lower lobe infiltrate. 2. Somewhat prominent vascular markings. 3. Lines and catheters discussed above. 4. Endotracheal tube tip 10.3 cm above the landen. [facility], , 12/13/2024 8:12 AM
[2024-12-13] MEDS ORDERED: HEPARIN SODIUM 1,000 UN/ML (10ML VL) ONE (09:46)
--- NOTE | 2024-12-13 11:46 | P.PN ---
Subjective Principal diagnosis: Respiratory failure. This is an 84-year-old white male familiar to my service, patient was recently seen in the hospital for MRSA bacteremia, workup for endocarditis and transesophageal echocardiogram was unremarkable and there was no evidence of vegetations. Patient was discharged to senior care on vancomycin and he had a PICC line in place. His transesophageal echo on his last admission showed ejection fraction of 45%, patient is also known to have history of paroxysmal atrial fibrillation as well as history of hereditary factor VIII deficiency. In addition to all of this the patient is known to have history of mild COPD, hiatal hernia, hypertension, and yesterday senior care was concerned about the patient having episodes of shortness of breath. Patient received diuretics, received bronchodilators, this was done upon arrival to the ER, patient developed worsening atrial fibrillation with RVR. I was notified about this patient from the ER, initially recommended amiodarone and amiodarone drip because of his atrial fibrillation with RVR, cardiology was consulted, his oxygenation while in the ER was getting worse in spite of diuretics his chest x- ray did not show any evidence of significant pulmonary edema, patient was intubated shortly after upon my recommendation, and arrangements made for the patient to transfer to the ICU late at night. In the meantime patient was noted to have leukocytosis, WBC count as high as 43.6, hemoglobin was 12.2. Basic metabolic profile was normal except for slightly low bicarb of 18 BUN 35 creatinine 1.28. Chest x-ray this morning showed normal pulmonary vasculature there was no clear-cut evidence of pneumonia or any pleural effusion, no eviden ce of congestive heart failure, patient did receive multiple fluid boluses yesterday for low blood pressure after intubation. Today the patient is on assist-control rate of 24 tidal volume 500 FiO2 90% and PEEP of 8 which I increased to 10 ABG remains marginal with a pO2 of 85 pCO2 44 pH of 7.31 patient has been on Xarelto for history of chronic atrial fibrillation presently I would recommend that we place the patient on heparin, patient is still receiving amiodarone at 0.5 mg/min he is also on norepinephrine at 0.06 mcg/kg/min propofol at 50 mcg/kg/min IV fluid 100 cc/h 0.9 normal saline. Went ahead and establish a right radial arterial line, patient does have a PICC line in place hence no need to change PICC line unless the patient comes back with positive blood cultures. In the meantime we are recommending cefepime and vancomycin. 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 Knowing this, possibility of pulmonary embolism is likely and I am recommending that we heparinized the patient for now, once his renal functioning improved may consider sending him down for a CT angiogram of the chest. Seen today on 12/08/2024, patient remains in the ICU, intubated mechanically ventilated, he is on assist-control rate of 24 tidal volume 500 FiO2 90% PEEP of 12 ABG showed a pO2 of 125 pCO2 50 pH of 7.25 hence tidal volume was increased to 550, FiO2 was cut down to 60%, kept the PEEP at 12. Chest x-ray is showing evidence of worsening interstitial edema. Patient is on diuretics Lasix 80 mg IV push twice daily. Patient is still requiring pressors he is on norepinephrine at 0.06 mcg/kg/min propofol at 30 mcg/kg/min IV fluid was 100 cc/h, however considering his chest x-ray I recommended we cut it down to KVO. Patient remains on amiodarone at 0.5 mg/min antibiotics schaefer he is on cefepime and vancomycin patient had recent MRSA bacteremia he is also on Tamiflu for acute influenza. For his DVT and possible pulmonary embolism patient remains on heparin as per protocol. Patient is sedated, still hemodynamically unstable requiring norepinephrine, patient is receiving GI DVT prophylaxis is also on enteral feeding for nutritional support. Blood cultures are still pending no plans to address weaning today since the patient is still requiring relatively high FiO2 and high PEEP. Renal functioning seems to be a bit worse, being addressed by nephrology on the case. Patient may have developed acute kidney injury, likely cardiorenal in nature. And could be related to his low blood pressure on presentation /acute tubular necrosis. 12/09/2024: Patient remains in the ICU, intubated mechanically ventilated, he is on assist-control rate of rr 24 tidal volume 550, peep at 12, fio2 60. ABG showed pO2 of 72, pCO2 43, and pH of 7.32. Overnight heart rate was in the 140s, Dr. Taylor was called and he gave Lopressor PO. CXR showing evidence of stable interstitial pattern with small effusion and basilar subsegmental consolidation. Patient had lower extremity Doppler on 12/07 showing chronic nonoccluding right lower extremity DVT for which she remains on heparin as per protocol. Patient is sedated, still hemodynamically unstable requiring norepinephrine, patient is receiving GI DVT prophylaxis and is also on enteral feeding 25 at goal. Fluid balance is approximately positive 1 L in the last 24 hours. Levo at 7.63 mg/min, heprin at 10, amio at .5, prop 50. Lasix at 80 IV BID. Preliminary Gram stain showed Pseudomonas and blood cultures have been negative through 48 hours. . Creatinine today 2.58 which is increased from yesterday of 1.89. Nephrology is following, they added 2 amp sodium bicarb IV push yesterday and stopped Cozaar, Aldactone, and Farxiga. Nephrology considers DEENA secondary to ATN secondary to septic shock as patient's baseline creatinine is usually near 1. Progress note dated December 10, 2024. 84-year-old male seen today in room 254. He remains on the mechanical ventilator. He is on volume assist-control mode, rate 24, tidal volume 450, FiO2 60%, PEEP of 12. Blood gases show a pO2 of 75, pCO2 of 53, pH of 7.23. The patient is getting saline at 20 cc an hour, propofol at 20 mcg/kg/min, Levophed at 2 mcg/min. In addition, the patient is getting heparin via weight- based protocol, and vital AF at 25 cc an hour which is goal. The patient continues on Tamiflu, and cefepime. His peak airway pressures 33, with a plateau pressure of 22. Current labs include a white count of 27.5, hemoglobin 11.6, hematocrit 36.2, and a platelet count of 139,000. PTT is 46.6. Sodium 134, potassium 4.8, chlorides 101, CO2 21, BUN 68, and creatinine 3.51. Glucose is 136. Calcium is 8. Sputum from December 06 is positive for Pseudomonas a eruginosa. Chest x-ray earlier from this morning, shows a stable interstitial pattern with small effusion. Chest x-ray after central line insertion shows a properly placed central line, with the tip of the catheter at the junction of superior vena cava and right atrium. Progress note dated December 11, 2024. 84-year-old male seen today in room 254. He remains on the mechanical ventilator. He is on volume assist-control mode, rate 28, tidal volume of 450, FiO2 60%, and PEEP of 12. His peak airway pressure is 29, with a plateau pressure of 22. Blood gases show pH 7.2, pCO2 51, pO2 96. The patient is getting NS at 20 cc/h and propofol at 40 mcg/kg/min, no levo since 4 AM this morning. In addition the patient is off heparin currently due to bleeding around central line that was placed yesterday.Vital AF at 25 cc an hour and a goal of 35. The patient continues on cefepime (day 3) and completed Tamiflu. Current labs include WBC of 18.6, hemoglobin of 10.8, hematocrit of 34.7, and platelet count of 115,000. Sodium is 131, potassium 5.5, chloride 100, BUN 89, and creatinine 4.26. Glucose is 138. Calcium 7.9. Urine output remains poor, 690 mL over the last 24 hours. Chest x-ray from earlier from this morning shows blunting of the costophrenic angle, cardiomegaly, pulmonary vascular congestion and bilateral pleural effusions. Patient getting dialysis catheter placed this morning. Progress note dated December 12, 2024. 84-year-old male seen today in room 254. No significant overnight events, yesterday had dialysis catheter placed and received first round of dialysis. He remains on the mechanical ventilator. He is on volume assist-control mode,rr 28, tv 450, fio2 60%, and peep 12. The delta between the peak airway pressure and plateau pressure was 11. Blood gases show pO2 of 74, pCO2 56, and pH of 7.21 the patient is getting NS at 10ml/hr and propofol at 60. Patient is on levo at 0.05. Currently heparin drip on hold. Vital AF at 35. The patient continues on cefepime (day 4) and completed Tamiflu already. Current labs include WBC of 25.8, hemoglobin of 11, platelet count of 122,000, sodium 128, potassium 6, bicarb 20, BUN 81, creatinine 4.31, glucose 123, and calcium 7.7. They took off 1.5 L during hemodialysis yesterday. Chest x-ray shows stable/po tentially slightly worsening right basilar airspace opacities.` Progress note dated December 13, 2024. 84-year-old male seen today in room 254. No significant overnight events, yesterday received another round of dialysis. Plan is to receive dialysis again today, potentially sled. He remains on mechanical ventilator on volume assist- control mode with a respiratory rate of 28, tidal volume of 450, FiO2 60%, and PEEP of 12. The delta between the peak airway pressure and plateau pressure was 10. Patient noted to have significant cuff leak. Blood gases show pO2 106, pCO2 48, and pH 7.25. The patient is getting NS@10 mL/h and propofol at 60. Patient is on levo at 11.4 mcg/min. Patient remains off heparin for 2 days now after having bleeding from central line. Getting vital AF at 35 which is goal. On amiodarone 200 twice daily and Lopressor 25 3 times daily for A-fib. Patient continues on cefepime (day 5) and has already completed 5-day course Tamiflu. Current labs include WBC of 26.6, hemoglobin of 10.6, platelet count 107,000, sodium 127, potassium 5.9, bicarb 19, BUN 83, creatinine 3.94, calcium 7.8, and albumin 2.5. They took off 1.5 L during hemodialysis yesterday. Chest x-ray shows improvement from prior in the right lower lobe, stable left pleural effusion still noted. Physical exam: No acute distress, sedated, with an orally placed endotracheal tube. HEENT examination is grossly unremarkable. Mucous membranes are moist. No oral lesions. Neck supple. Full range of motion. No adenopathy thyromegaly or neck vein distention. Cardiovascular examination reveals regular rhythm rate. S1-S2 normal. No S3 or S4. No discernible murmur noted. Lungs reveal scattered coarse rhonchi. Crackles are appreciated. No wheezes. Breath sounds are equal. Abdomen soft bowel sounds are heard. No masses or tenderness. Extremities are intact. No cyanosis or clubbing. Diffuse anasarca is noted. Skin is without rash or lesion. Neurologic examination cannot be assessed at this time. Assessment: Acute hypoxemic respiratory failure, currently maintained on mechanical ventilation. Persistent sepsis and septic shock, secondary to MRSA bacteremia. Moderate LV dysfunction, with diffuse interstitial edema. Acute kidney injury secondary to hypotension, and possible acute tubular necrosis. History of atrial fibrillation with RVR. Acute on chronic systolic congestive heart failure. COPD exacerbation. History of BPH. History of factor VIII deficiency. Possible pulmonary embolism. History of DVT. Benign essential hypertension. Acute influenza A infection. History of previous right total hip arthroplasty. Plan: Plan dated December 10, 2024. The patient is seen today in room 254. He had an uneventful night according to the nurses. The patient continues on mechanical ventilation. Blood gases show pO2 of 75, pCO2 of 53, pH is 7.23. The patient continues on propofol, and a small amount of Levophed at 2 mcg/min. The patient continues on heparin via weight-based protocol. In addition, the patient continues on Tamiflu, and cefep obey. Respiratory mechanics reveal a peak airway pressure of 33 cm of water, and a plateau pressure of 22 cm of water. The patient is receiving tube feedings with vital AF at goal, which is 25 cc an hour. Labs, x-rays, and all medications are reviewed. Prognosis is guarded. The patient does continue on GI and DVT prophylaxis. Plan dated December 11, 2024. The patient is seen today in room 254. No significant overnight events according to nurses. The patient continues on mechanical ventilation. Blood gases show pO2 96, pCO2 51, and pH is 7.21. Propofol is at 40 mcg/kg/min, no levo since 4 AM this morning. Heparin currently discontinued due to bleeding from the central line as well as in anticipation of the patient getting dialysis catheter today. Patient requires dialysis catheter due to poor urine output and steadily increasing BUN and creatinine. This is in concordance with nephrology's plan. Patient has completed Tamiflu and is on day 3 of cefepime. Respiratory mechanics reveal peak airway pressure of 29 cm of water with a plateau pressure of 22 cm of water. New goal for vital AF is 35. Labs, x-rays, and all medications are reviewed. Prognosis is guarded. The patient does continue on GI and DVT prophylaxis. Plan dated December 12, 2024. The patient is seen today in room 254. No significant overnight events. Patient had a dialysis catheter placed yesterday, and underwent 1 round of dialysis then and is currently receiving another round of dialysis this morning. Will reevaluate renal function in the a.m. tomorrow after this round of dialysis and determine if further dialysis is required. The patient continues on mechanical ventilation. Blood gases show pO2 74, pCO2 56, and pH 7.21. NS is running at 10 mL/h and propofol at 60. Patient is currently on 0.08 Levophed. Decreased 60 mg IV solumedrol to BID. Per cardiology metoprolol has been increased to 25 mg 3 times daily for better control of A-fib and continuation of the amiodarone that he is already on. Currently on day 4 of cefepime after positive for Pseudomonas sputum culture. Labs, x-rays, and all medications are reviewed. Prognosis is guarded. The patient does continue on GI and DVT prophylaxis. Plan dated June 12, 2020. The patient is seen today in room 254. No significant overnight events. Patient received second round of dialysis yesterday taking of 1.5 L. Plan for today is for patient to get sled. ABG showed pO2 of 106, pCO2 48, and pH 7.25 and based off these findings we have reduced FiO2 to 50%. NS continues running at 10 mL/h and propofol is at 60. Patient currently on Levophed 11.4 mcg/min, will continue to try to wean throughout the day. Albumin noted to be low, likely explains the third spacing that is occurring. Continue to ensure nutrition is at goal, currently vital AF at 35. Patient remains on 60 mg IV Solu-Medrol twice daily. For A-fib patient is on Lopressor 25 mg 3 times daily and amiodarone. Currently on day 5 of cefepime. Patient has been off heparin for 2 days after having bleeding around the central line. Will start Lovenox SQ 40 daily. Labs, x-rays, and all medications are reviewed. Prognosis is guarded. The patient does continue on GI and DVT prophylaxis. Objective - Vital Signs Vital signs: Vital Signs Temp 97.8 F 12/13/24 07:00 Pulse 95 12/13/24 07:00 Resp 28 H 12/13/24 07:00 BP 117/65 12/13/24 04:00 Pulse Ox 93 L 12/13/24 07:00 FiO2 60 12/13/24 07:00 Intake & Output 12/12/24 12/13/24 12/13/24 18:59 06:59 18:59 Intake Total 1710.406 8977.105 Output Total 2510 46 Balance -1649.051 2476.105 Weight 127.5 kg Intake: IV 366 269 Cefepime 1 gm In Sodium 100 Chloride 0.9% 50 ml @ 12. 5 mls/hr IVPB Q12H BRIANA Rx #:[id number] Pressure Bag 36 39 kvo 230 230 Intake, IV Titration 504.294 870.105 Amount Norepinephrine 4 mg In 254.000 444.240 Sodium Chloride 0.9% 250 ml @ 0.03 MCG/KG/MIN 12. 443 mls/hr IV .[id number] BRIANA Rx#:[id number] propofoL 1,000 mg In 250.294 425.865 Empty Bag 1 bag @ 15 MCG/ KG/MIN 9.798 mls/hr IV . [id number] RBIANA Rx#:[id number] Tube Feeding 35 385 Hemodialysis 500 Other 120 Output: Urine 10 46 Hemodialysis 1500 Hemodialysis Net Amount 1000 Other: Voiding Method Indwelling Catheter Indwelling Catheter ABP, PAP, CO, CI - Last Documented Arterial Blood Pressure 115/53 - Labs CBC & Chem 7: 12/13/24 05:32 12/13/24 05:32 Labs: Abnormal Lab Results - Last 24 Hours (Table) 12/12/24 12/12/24 12/12/24 Range/Units 11:58 17:22 19:39 WBC (3.8-10.6) k/uL RBC (4.30-5.90) m/uL Hgb (13.0-17.5) gm/dL Hct (39.0-53.0) % RDW (11.5-15.5) % Plt Count (150-450) k/uL Neutrophils # (Manual) (1.3-7.7) k/uL Lymphocytes # (Manual) (1.0-4.8) k/uL ABG pH (7.35-7.45) ABG pCO2 (35-45) mmHg ABG O2 Saturation (94-97) % Hemoglobin (13.0-17.5) gm/dL Sodium (137-145) mmol/L Potassium 5.4 H (3.5-5.1) mmol/L Chloride (98-107) mmol/L Carbon Dioxide (22-30) mmol/L BUN (9-20) mg/dL Creatinine (0.66-1.25) mg/dL Glucose (74-99) mg/dL POC Glucose (mg/dL) 149 H 150 H (70-110) mg/dL Calcium (8.4-10.2) mg/dL Magnesium (1.6-2.3) mg/dL ALT (4-49) U/L Total Protein (6.3-8.2) g/dL Albumin (3.5-5.0) g/dL 12/12/24 12/13/24 12/13/24 Range/Units 23:29 05:29 05:31 WBC (3.8-10.6) k/uL RBC (4.30-5.90) m/uL Hgb (13.0-17.5) gm/dL Hct (39.0-53.0) % RDW (11.5-15.5) % Plt Count (150-450) k/uL Neutrophils # (Manual) (1.3-7.7) k/uL Lymphocytes # (Manual) (1.0-4.8) k/uL ABG pH 7.25 L (7.35-7.45) ABG pCO2 48 H (35-45) mmHg ABG O2 Saturation 97.9 H (94-97) % Hemoglobin 10.5 L (13.0-17.5) gm/dL Sodium (137-145) mmol/L Potassium (3.5-5.1) mmol/L Chloride (98-107) mmol/L Carbon Dioxide (22-30) mmol/L BUN (9-20) mg/dL Creatinine (0.66-1.25) mg/dL Glucose (74-99) mg/dL POC Glucose (mg/dL) 138 H 151 H (70-110) mg/dL Calcium (8.4-10.2) mg/dL Magnesium (1.6-2.3) mg/dL ALT (4-49) U/L Total Protein (6.3-8.2) g/dL Albumin (3.5-5.0) g/dL 12/13/24 12/13/24 12/13/24 Range/Units 05:32 05:32 05:32 WBC 26.6 H (3.8-10.6) k/uL RBC 3.76 L (4.30-5.90) m/uL Hgb 10.6 L (13.0-17.5) gm/dL Hct 33.2 L (39.0-53.0) % RDW 15.8 H (11.5-15.5) % Plt Count 107 L (150-450) k/uL Neutrophils # (Manual) 26.33 H (1.3-7.7) k/uL Lymphocytes # (Manual) 0.27 L (1.0-4.8) k/uL ABG pH (7.35-7.45) ABG pCO2 (35-45) mmHg ABG O2 Saturation (94-97) % Hemoglobin (13.0-17.5) gm/dL Sodium 127 L (137-145) mmol/L Potassium 5.9 H (3.5-5.1) mmol/L Chloride 95 L (98-107) mmol/L Carbon Dioxide 19 L (22-30) mmol/L BUN 83 H (9-20) mg/dL Creatinine 3.94 H (0.66-1.25) mg/dL Glucose 147 H (74-99) mg/dL POC Glucose (mg/dL) 162 H (70-110) mg/dL Calcium 7.8 L (8.4-10.2) mg/dL Magnesium 2.6 H (1.6-2.3) mg/dL ALT 51 H (4-49) U/L Total Protein 4.8 L (6.3-8.2) g/dL Albumin 2.5 L (3.5-5.0) g/dL Microbiology - Last 24 Hours (Table) 12/07/24 09:37 Blood Culture - Final Blood
--- NOTE | 2024-12-13 12:01 | P.PN ---
Subjective Progress Note Date: 12/13/24 HISTORY OF PRESENT ILLNESS This is a 84-year-old male with past medical history of hypertension, paroxysmal atrial fibrillation on Xarelto, benign prostatic hypertrophy, hiatal hernia, hereditary factor VIII deficiency, hyperlipidemia, mild intermittent asthma, mild COPD, patient was recently admitted to [facility] after he underwent right total hip arthroplasty that was done by Dr. Thakkar and he has been at [facility] for physical therapy rehabilitation, patient was recently hospitalized at [facility] from November 25 of December 04 after he was admitted for what appears to be right lower lobe pneumonia appears to be MRSA pneumonia, initially was started on vancomycin as well as cefepime was seen in consultation by pulm medicine as well as cardiology, he had a significant MRSA bacteremia, that responded very well to vancomycin, patient ended up going for transesophageal echocardiogram that did not show evidence of any vegetation, it did show evidence of 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%, patient was sent to [facility] December 04, 2024 while he was there he was requiring about 5 L nasal cannula of oxygen, I received a phone call from the nursing staff stating that the patient is in acute respiratory distress today, he was given 60 mg IM of Lasix as well as 80 mg IM of Solu-Medrol with nebulizer treatment along with Pulmicort and DuoNeb, without any relief, he was placed on nonrebreather, and patient was sent to the ER for evaluation, he was found to have a significant leukocytosis with a white count of 36,000, his swab came back positive for influenza A, and chest x-ray showed evidence of cardiomegaly as well as basilar pneumonia patient was started back on his vancomycin as well as cefepime he was started on Tamiflu, he was started on Lasix 80 mg IV push every 12 hours, along with Solu-Medrol 60 mg IV push every 6 hours, DuoNeb nebulization 4 times every day Pulmicort 1 mg nebulization twice every day he is currently on BiPAP, pulmonary consultation as well as cardiology consultation. Sputum culture will be obtained as well as blood cultures. 12/07: While the patient yesterday in the emergency department he went into severe respiratory distress while he was on the BiPAP, he did receive 1 dose of Lasix 80 mg IV push, along with Solu-Medrol 60 mg IV push along with nebulized treatment in the form of DuoNeb as well as Pulmicort, without relief, at that time the decision was made for the patient to be intubated and transferred to the intensive care unit from the emergency department, patient is currently sedated on the ventilator, he is currently on amiodarone drip, as well as propofol drip, he is on 90% FiO2, with a PEEP of 5, pulmonary/critical care is following the patient very closely, cardiology is following as well, patient was started on IV antibiotic in the form of vancomycin as well as cefepime, he was started on Tamiflu as well due to influenza A, his white count initially was elevated at 43,000 down to 38,000, patient appears quite sick at this point in time, his prognosis continue be guarded, will continue with aggressive treatment plan for now, we will follow-up with the patient very closely. 12/08: Patient is laying down in bed he continues to be on the ventilator, currently FiO2 of 60%, PEEP of 12, tidal volume of 550, he continues to have a significant edema both upper and lower extremities, he is not getting any more IV fluid, will wean down his Levophed drip, continue IV antibiotic in the form of vancomycin as well as cefepime, sputum cultures growing Pseudomonas aeruginosa, currently on cefepime as well as vancomycin with pharmacy to dose to be controlled, continue also with Tamiflu for influenza A, patient was seen earlier by nephrology for acute kidney injury due to acute tubular necrosis and vasomotor nephropathy due to septic shock, continue current Lasix 80 mg IV push every 12 hours, monitor the patient input and output and daily weight, ultr asound of the kidney was obtained. 12/09: Patient is still intubated on the ventilator, he is currently on AC mode with a tidal volume of 550 respiration of 24, FiO2 of 60%, PEEP of 12, x-ray still showing evidence of pulmonary edema, he has been getting Lasix 80 mg IV push every 12 hours, he has an acute kidney injury that is getting worse today, his BUN and creatinine is elevated, nephrology is following, patient continues to be on Levophed, he has been on cefepime we will monitor the patient very closely, continue current treatment plan, will follow-up with the patient very closely, patient has been seen by nephrology, cardiology, as well as by pulmonary medicine and critical care, patient also was seen in consultation by infectious disease at this point in time, taken off vancomycin and Tamiflu due to acute kidney injury. 12/10: Patient is laying down in bed he continues to be on the ventilator, his current vent setting is FiO2 of 60%, respiratory rate is 24, tidal volume 450, and FiO2 of 60%, PEEP of 12, patient blood gases showed evidence of metabolic and respiratory acidosis with hypoxemia his pO2 is about 72 and pCO2 is 56, patient is getting a central line today, he continues to have worsening kidney function, will continue current treatment plan, continue follow-up with the patient very closely 12/11: Patient is laying down in bed continues to be sedated on the ventilator, worsening renal function his creatinine is up to 4.5, decreased urine output, was on lasix drip without improvement and he was started on HD today for 2 hours , patient continues to be treated with cefepime for Pseudomonas pneumonia, he continued to have a septic shock he is currently on Levophed, he is currently on propofol, his prognosis continues to be guarded, patient has underlying ca rdiomyopathy ejection fraction 45%, he continues to have atrial fibrillation for which she has been on amiodarone, patient has been followed by multiple specialties including ICU/pulmonary medicine, cardiology, nephrology, infectious disease, we will continue to follow-up with the patient very closely, he may require to have hemodialysis even for short period of time to improve his kidney function as well as fluid status. 12/12: Patient remains on the ventilator, his current tidal volume is 450 FiO2 of 60%, and a PEEP of 12, he is still requiring quite a bit of sedation he is still requiring Levophed to keep his pressure up, he is getting his edema hemodialysis for the second day today, his blood pressure is marginal, we discussed with the nursing staff increasing his Levophed little bit, but he is still in atrial fibrillation with rapid ventricular response, his urine output is minimal, trying to get another 500 cc out of his body today, chest x-ray still showing evidence of right lower lobe pneumonia, will follow-up with the patient very closely at this point patient prognosis continue to be guarded, I still think that the patient can turn around, we can continue with the current treatment plan continue with cefepime continue with aggressive pulmonary toileting, continue to follow-up with the patient very closely. 12/13: Patient is laying down in bed he continues to be on the ventilator, with the AC mode, tidal volume of 450, respiratory rate of 28, FiO2 50%, PEEP of 12, chest x-ray continues to show some signs of pneumonia in the right lower lobe, minimal pulmonary vascular congestion as well, he is getting dialysis for the third day in the room, his blood pressure appears to be marginal at this time, hopefully will increase his Levophed little bit for the patient to go for dialysis at this point in time, he continues to improve slowly, he continues to be on Levophed, he continues to be on cefepime, he has been followed by multiple specialty, we will continue with the feeding tube he is currently at 35 mL/h, he seems to be tolerating this very well. REVIEW OF SYSTEMS Patient is sedated on the ventilator. PHYSICAL EXAMINATION Gen: This is an obese 84-year-old is sedated on the ventilator HEENT: Head is atraumatic, normocephalic. Pupils equal, round. Sclerae is anicteric, there is an NG tube in place, and ET tube placed NECK: Supple. No JVD. No lymphadenopathy. No thyromegaly. LUNGS: decreased breath sound at bases, few rhonchi, minimal expiratory wheezes, no chest wall tenderness, no intercostal retractions. HEART: First heart sound is depressed, second heart sound is normal, 2/6 syst olic ejection murmur at the left sternal border, irregular irregular due to atrial fibrillation. ABDOMEN: Soft. Bowel sounds are present. No masses. No tenderness. EXTREMITIES: +2 pedal edema. No calf tenderness. Pain in the left hip. Dorsalis pedis palpable bilaterally. NEUROLOGICAL: Patient is currently sedated on the ventilator. ASSESSMENT AND PLAN: 1. Acute vent dependent hypoxemic respiratory failure due to acute systolic heart failure as well as acute left lower lobe Pseudomonas pneumonia and influenza A. Continue Solu-Medrol 60 mg IV push every 12 hours, continue DuoNeb 3 mL nebulization every 4 hours, continue Pulmicort 1 mg of Lasix twice every da y, continue cefepime 1 g IV piggyback every 12 hours, monitor the patient symptoms very closely, patient is still requiring FiO2 of 50% at this point in time. 2. Pseudomonas pneumonia with septic shock . Try to wean Levophed off continue IV antibiotic in the form of cefepime 1 g piggyback every 12 hours, continue oxygen support, try to wean FiO2 down, continue to monitor the patient very closely. Infectious disease consultation from Dr. Agosto is appreciated. Monitor the patient symptoms very closely, blood cultures so far no growth after 72 hours. 3. Atrial fibrillation with rapid ventricular response. Discontinue amiodarone drip, continue patient on amiodarone 200 mg orally twice every day, continue on metoprolol 25 mg orally twice every day, monitor the patient symptoms very chelsea sely. 4. 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 Patient is currently on Levophed drip 5. Acute kidney injury due to acute tubular necrosis with vasomotor nephropathy due to septic shock. Patient and he is getting hemodialysis today, his blood pressure is marginal his Levophed was increased. 6. Anion gap antibiotic acidosis due to acute kidney injury monitor the patient symptoms very closely, continue with hemodialysis for now. 7. COPD exacerbation. Continue Solu-Medrol 60 mg IV push every 12 hours, cont inue Pulmicort 1 mg nebulization twice every day, DuoNeb 3 manipulation 4 times every day, oxygen support, currently on the ventilator. 8. Mild intermittent asthma. Continue Singulair 10 mg at bedtime, loratadine 10 mg once every day, continue aggressive pulmonary toileting. 9. Benign prostatic hypertrophy. Continue Flomax 0.4 mg currently has a Henry catheter in place. 10. Hereditary factor VIII deficiency. Patient was taken off heparin drip, he is currently on Lovenox 40 mg subcutaneous every 24 hours. 11. Hyperlipidemia. Continue Zetia 10 mg daily and Atorvastatin 40 mg once a d ay. Monitor the patient lipid panel, keep LDL 55-70 12. Hypertension and hypertensive cardiovascular disease. patient blood pressure is soft at this time, continue metoprolol 25 mg orally 3 times every day. 13. GI prophylaxis. Protonix 40 mg IV push daily. 14. DVT prophylaxis. Patient is currently on Lovenox 40 mg subcutaneous every 24 hours. He may need to go back on Xarelto 15 mg orally once every day or even Eliquis 2.5 mg orally twice every day. 15. Major depressive disorder. Continue patient on Effexor XR 37.5 mg orally once every day. 16. Prognosis is guarded 17. Full code. Objective - Vital Signs Vital signs: Vital Signs Temp 97.4 F L 12/13/24 02:00 Pulse 96 12/13/24 02:00 Resp 28 H 12/13/24 02:00 BP 117/65 12/13/24 02:00 Pulse Ox 94 L 12/13/24 02:00 FiO2 60 12/13/24 02:00 Intake & Output 12/12/24 12/12/24 12/13/24 06:59 18:59 06:59 Intake Total 6952.564 6415.294 901.588 Output Total 35 2510 31 Balance 1192.152 -1104.706 870.588 Weight 125 kg Intake: IV 316 366 154 Cefepime 1 gm In Sodium 50 100 Chloride 0.9% 50 ml @ 12. 5 mls/hr IVPB Q12H B[facility] Rx #:[id number] Pressure Bag 36 36 24 kvo 230 230 130 Intake, IV Titration 431.152 504.294 447.588 Amount Norepinephrine 4 mg In 126.645 254.000 190.240 Sodium Chloride 0.9% 250 ml @ 0.03 MCG/KG/MIN 12. 443 mls/hr IV .[id number] BRIANA Rx#:[id number] propofoL 1,000 mg In 304.507 250.294 257.348 Empty Bag 1 bag @ 15 MCG/ KG/MIN 9.798 mls/hr IV . [id number] BRIANA Rx#:[id number] Tube Feeding 420 35 210 Hemodialysis 500 Other 60 90 Output: Urine 35 10 31 Hemodialysis 1500 Hemodialysis Net Amount 1000 Other: Voiding Method Indwelling Catheter Indwelling Catheter Indwelling Catheter ABP, PAP, CO, CI - Last Documented Arterial Blood Pressure 109/52 - Labs CBC & Chem 7: 12/13/24 05:32 12/13/24 05:32 Labs: Abnormal Lab Results - Last 24 Hours (Table) 12/12/24 12/12/24 12/12/24 Range/Units 04:20 04:20 05:26 WBC 25.8 H (3.8-10.6) k/uL RBC 3.91 L (4.30-5.90) m/uL Hgb 11.0 L (13.0-17.5) gm/dL Hct 34.7 L (39.0-53.0) % RDW 16.0 H (11.5-15.5) % Plt Count 122 L (150-450) k/uL Neutrophils # (Manual) 25.28 H (1.3-7.7) k/uL Lymphocytes # (Manual) 0.26 L (1.0-4.8) k/uL Nucleated RBCs 2 H (0-0) /100 WBC ABG pH 7.21 L (7.35-7.45) ABG pCO2 56 H (35-45) mmHg ABG pO2 74 L (83-108) mmHg ABG O2 Saturation 93.2 L (94-97) % Hemoglobin 10.8 L (13.0-17.5) gm/dL Sodium 128 L (137-145) mmol/L Potassium 6.0 H (3.5-5.1) mmol/L Chloride 96 L (98-107) mmol/L Carbon Dioxide 20 L (22-30) mmol/L BUN 81 H (9-20) mg/dL Creatinine 4.31 H (0.66-1.25) mg/dL Glucose 123 H (74-99) mg/dL POC Glucose (mg/dL) (70-110) mg/dL Calcium 7.7 L (8.4-10.2) mg/dL 12/12/24 12/12/24 12/12/24 Range/Units 06:20 11:58 17:22 WBC (3.8-10.6) k/uL RBC (4.30-5.90) m/uL Hgb (13.0-17.5) gm/dL Hct (39.0-53.0) % RDW (11.5-15.5) % Plt Count (150-450) k/uL Neutrophils # (Manual) (1.3-7.7) k/uL Lymphocytes # (Manual) (1.0-4.8) k/uL Nucleated RBCs (0-0) /100 WBC ABG pH (7.35-7.45) ABG pCO2 (35-45) mmHg ABG pO2 (83-108) mmHg ABG O2 Saturation (94-97) % Hemoglobin (13.0-17.5) gm/dL Sodium (137-145) mmol/L Potassium (3.5-5.1) mmol/L Chloride (98-107) mmol/L Carbon Dioxide (22-30) mmol/L BUN (9-20) mg/dL Creatinine (0.66-1.25) mg/dL Glucose (74-99) mg/dL POC Glucose (mg/dL) 127 H 149 H 150 H (70-110) mg/dL Calcium (8.4-10.2) mg/dL 12/12/24 12/12/24 Range/Units 19:39 23:29 WBC (3.8-10.6) k/uL RBC (4.30-5.90) m/uL Hgb (13.0-17.5) gm/dL Hct (39.0-53.0) % RDW (11.5-15.5) % Plt Count (150-450) k/uL Neutrophils # (Manual) (1.3-7.7) k/uL Lymphocytes # (Manual) (1.0-4.8) k/uL Nucleated RBCs (0-0) /100 WBC ABG pH (7.35-7.45) ABG pCO2 (35-45) mmHg ABG pO2 (83-108) mmHg ABG O2 Saturation (94-97) % Hemoglobin (13.0-17.5) gm/dL Sodium (137-145) mmol/L Potassium 5.4 H (3.5-5.1) mmol/L Chloride (98-107) mmol/L Carbon Dioxide (22-30) mmol/L BUN (9-20) mg/dL Creatinine (0.66-1.25) mg/dL Glucose (74-99) mg/dL POC Glucose (mg/dL) 138 H (70-110) mg/dL Calcium (8.4-10.2) mg/dL Microbiology - Last 24 Hours (Table) 12/07/24 09:37 Blood Culture - Final Blood
[2024-12-13 12:08] LABS: Glucose,Whole Blood 117 mg/dL (70-110)
--- NOTE | 2024-12-13 12:42 | PN ---
PROGRESS NOTE SUBJECTIVE: Yaw is an 84-year-old patient with respiratory failure, persistent atrial fibrillation, factory 8 deficiency, dyslipidemia, who is admitted to hospital with MRSA bacteremia and had been intubated and on the vent since. At the time of my evaluation this morning, he remains in atrial fibrillation with somewhat of better controlled ventricular rate. He is on Levophed for hypotension. Blood pressure is in the 100 systolic. OBJECTIVE: GENERAL: The patient is intubated, sedated and on the vent. VITAL SIGNS: Heart rate is 95 beats per minute, blood pressure is 105/57, respiratory rate is 28. CHEST: Reveals diminished air entry with occasional rhonchi. HEART: Reveals first and second heart sounds. No gallop. ABDOMEN: Soft. EXTREMITIES: Reveals 1+ edema. Peripheral pulses are felt. LABORATORY DATA: Labs show that the hemoglobin is 10.6, platelet count is 107, potassium is 5.9, BUN is 83, creatinine is 3.9. MEDICATIONS: Include, 1. Amiodarone 200 b.i.d. 2. Lipitor 40 daily. 3. Zetia. 4. Metoprolol 25 t.i.d. ASSESSMENT: 1. Persistent atrial fibrillation with better controlled ventricular rate. 2. Pneumonia with respiratory failure. PLAN: The patient will continue the metoprolol 25 t.i.d. and the amiodarone for rate control. Prognosis guarded. MMODL / IJN: [id number] /
[2024-12-13] MEDS: ENOXAPARIN 30 MG/0.3 ML SYRINGE SQ SCH (16:13)
[2024-12-13 17:33] LABS: Glucose,Whole Blood 149 mg/dL (70-110)
--- NOTE | 2024-12-13 18:49 | P.PN ---
Subjective Patient is seen for follow-up for acute kidney injury. Patient remains on the vent. FiO2 decreased to 50% Started hemodialysis on 12/11/24 for worsening oliguric acute kidney injury and volume overload. Patient is seen on hemodialysis today. Undergoing SLED with low blood flow and dialysate flow. Patient seems to be tolerating treatment better today. Minimal urine output. Maintained on Levophed. Potassium 5.9 today Objective - Vital Signs Vital signs: Vital Signs Temp 97.3 F L 12/13/24 16:00 Pulse 95 12/13/24 18:00 Resp 28 H 12/13/24 18:00 BP 124/76 12/13/24 18:00 Pulse Ox 94 L 12/13/24 18:00 FiO2 50 12/13/24 16:00 Intake & Output 12/12/24 12/13/24 12/13/24 18:59 06:59 18:59 Intake Total 6588.138 2316.105 1561.178 Output Total 2510 46 4400 Balance -3875.931 7850.105 -2838.822 Weight 127.5 kg 127.5 kg Intake: IV 366 269 203 Cefepime 1 gm In Sodium 100 50 Chloride 0.9% 50 ml @ 12. 5 mls/hr IVPB Q12H [facility] Rx #:[id number] Pressure Bag 36 39 33 kvo 230 230 120 Intake, IV Titration 504.294 870.105 553.178 Amount Norepinephrine 4 mg In 254.000 444.240 207.522 Sodium Chloride 0.9% 250 ml @ 0.03 MCG/KG/MIN 12. 443 mls/hr IV .[id number] [facility] Rx#:[id number] propofoL 1,000 mg In 250.294 425.865 345.656 Empty Bag 1 bag @ 15 MCG/ KG/MIN 9.798 mls/hr IV . [id number] [facility] Rx#:[id number] Tube Feeding 35 385 315 Hemodialysis 500 400 Other 120 90 Output: Urine 10 46 0 Hemodialysis 1500 2400 Hemodialysis Net Amount 1000 2000 Other: Voiding Method Indwelling Catheter Indwelling Catheter Indwelling Catheter # Voids 0 ABP, PAP, CO, CI - Last Documented Arterial Blood Pressure 115/50 - Exam Patient is on the vent. Examination of the heart S1 and S2 Examination of the lungs bilateral breath sounds are heard Abdomen is soft nontender Examination of lower extremities shows edema 1+ bilaterally. - Labs CBC & Chem 7: 12/13/24 05:32 12/13/24 05:32 Labs: Abnormal Lab Results - Last 24 Hours (Table) 12/12/24 12/12/24 12/13/24 Range/Units 19:39 23:29 05:29 WBC (3.8-10.6) k/uL RBC (4.30-5.90) m/uL Hgb (13.0-17.5) gm/dL Hct (39.0-53.0) % RDW (11.5-15.5) % Plt Count (150-450) k/uL Neutrophils # (Manual) (1.3-7.7) k/uL Lymphocytes # (Manual) (1.0-4.8) k/uL ABG pH 7.25 L (7.35-7.45) ABG pCO2 48 H (35-45) mmHg ABG O2 Saturation 97.9 H (94-97) % Hemoglobin 10.5 L (13.0-17.5) gm/dL Sodium (137-145) mmol/L Potassium 5.4 H (3.5-5.1) mmol/L Chloride (98-107) mmol/L Carbon Dioxide (22-30) mmol/L BUN (9-20) mg/dL Creatinine (0.66-1.25) mg/dL Glucose (74-99) mg/dL POC Glucose (mg/dL) 138 H (70-110) mg/dL Calcium (8.4-10.2) mg/dL Magnesium (1.6-2.3) mg/dL ALT (4-49) U/L Total Protein (6.3-8.2) g/dL Albumin (3.5-5.0) g/dL 12/13/24 12/13/24 12/13/24 Range/Units 05:31 05:32 05:32 WBC 26.6 H (3.8-10.6) k/uL RBC 3.76 L (4.30-5.90) m/uL Hgb 10.6 L (13.0-17.5) gm/dL Hct 33.2 L (39.0-53.0) % RDW 15.8 H (11.5-15.5) % Plt Count 107 L (150-450) k/uL Neutrophils # (Manual) 26.33 H (1.3-7.7) k/uL Lymphocytes # (Manual) 0.27 L (1.0-4.8) k/uL ABG pH (7.35-7.45) ABG pCO2 (35-45) mmHg ABG O2 Saturation (94-97) % Hemoglobin (13.0-17.5) gm/dL Sodium 127 L (137-145) mmol/L Potassium 5.9 H (3.5-5.1) mmol/L Chloride 95 L (98-107) mmol/L Carbon Dioxide 19 L (22-30) mmol/L BUN 83 H (9-20) mg/dL Creatinine 3.94 H (0.66-1.25) mg/dL Glucose 147 H (74-99) mg/dL POC Glucose (mg/dL) 151 H (70-110) mg/dL Calcium 7.8 L (8.4-10.2) mg/dL Magnesium 2.6 H (1.6-2.3) mg/dL ALT 51 H (4-49) U/L Total Protein 4.8 L (6.3-8.2) g/dL Albumin 2.5 L (3.5-5.0) g/dL 12/13/24 12/13/24 12/13/24 Range/Units 05:32 12:06 17:32 WBC (3.8-10.6) k/uL RBC (4.30-5.90) m/uL Hgb (13.0-17.5) gm/dL Hct (39.0-53.0) % RDW (11.5-15.5) % Plt Count (150-450) k/uL Neutrophils # (Manual) (1.3-7.7) k/uL Lymphocytes # (Manual) (1.0-4.8) k/uL ABG pH (7.35-7.45) ABG pCO2 (35-45) mmHg ABG O2 Saturation (94-97) % Hemoglobin (13.0-17.5) gm/dL Sodium (137-145) mmol/L Potassium (3.5-5.1) mmol/L Chloride (98-107) mmol/L Carbon Dioxide (22-30) mmol/L BUN (9-20) mg/dL Creatinine (0.66-1.25) mg/dL Glucose (74-99) mg/dL POC Glucose (mg/dL) 162 H 117 H 149 H (70-110) mg/dL Calcium (8.4-10.2) mg/dL Magnesium (1.6-2.3) mg/dL ALT (4-49) U/L Total Protein (6.3-8.2) g/dL Albumin (3.5-5.0) g/dL Microbiology - Last 24 Hours (Table) 12/07/24 09:37 Blood Culture - Final Blood Assessment and Plan Assessment: 1. Acute kidney injury secondary to ATN secondary to septic shock. Baseline creatinine near 1 and peaked at 4.3. Oliguric. No hydronephrosis noted on kidney ultrasound. Started hemodialysis on 12/11/24 2. Acute hypoxic respiratory failure secondary to pneumonia and component of CHF 3. Septic shock. Patient with influenza A pneumonia and sputum culture positive for Pseudomonas. 4. Metabolic acidosis secondary to acute kidney injury. Better. 5. A-fib with RVR maintained on oral amiodarone. 6. Cardiomyopathy with ejection fraction of 40 to 45%. 7. Fluid overload. Plan: Hemodialysis in a.m. We will repeat sled, sustained low efficiency dialysis due to continued hypotension.
[2024-12-13 23:52] LABS: Glucose,Whole Blood 126 mg/dL (70-110)
[2024-12-14 05:15] LABS: African American GFR (CKD) 20 (>60 ml/min/1.73 sqM); Anion Gap 11 mmol/L; Blood Urea Nitrogen 70 mg/dL (9-20); Calcium 7.9 mg/dL (8.4-10.2); Carbon Dioxide 20 mmol/L (22-30); Chloride 96 mmol/L (98-107); Glucose 127 mg/dL (74-99); Non-African American GFR(CKD) 17 (>60 ml/min/1.73 sqM); Potassium 5.4 mmol/L (3.5-5.1); Sodium 127 mmol/L (137-145)
[2024-12-14 05:29] LABS: ABG Base Excess -4.2 mmol/L; ABG HCO3 22 mmol/L (21-25); ABG Oxygen Saturation 93.9 % (94-97); ABG PCO2 47 mmHg (35-45); ABG PH 7.29 (7.35-7.45); ABG PO2 75 mmHg (83-108); ABG TCO2 24 mmol/L (19-24); Allen Test Performed? Yes
[2024-12-14 05:33] LABS: Basophils % (A) 0 %; Eosinophils % (A) 0 %; HCT 32.1 % (39.0-53.0); HGB 10.3 gm/dL (13.0-17.5); Hypochromasia Slight; Lymphocytes # (A) 0.2 k/uL (1.0-4.8); Lymphocytes % (A) 1 %; MCH 27.8 pg (25.0-35.0); MCV 86.9 fL (80.0-100.0); Mean Platelet Volume 9.6; Monocytes # (A) 0.5 k/uL (0-1.0); Monocytes % (A) 2 %; Neutrophils # (A) 20.9 k/uL (1.3-7.7); Neutrophils % (A) 97 %; RBC 3.69 m/uL (4.30-5.90); RDW 15.7 % (11.5-15.5); WBC 21.6 k/uL (3.8-10.6)
[2024-12-14 06:17] LABS: Platelet Count 92 k/uL (150-450)
[2024-12-14 06:19] LABS: Crenated RBC Present; Tear Drop Cells Present
[2024-12-14 06:21] LABS: Glucose,Whole Blood 133 mg/dL (70-110)
--- NOTE | 2024-12-14 07:12 | XR ---
EXAMINATION TYPE: XR chest 1V portable DATE OF EXAM: 12/14/2024 COMPARISON: 12/13/2024 CLINICAL INDICATION: Male, 84 years old with history of Pt. intubated; TECHNIQUE: Single frontal view of the chest is obtained. FINDINGS: There is an ET tube 5.2 cm above the landen. There is an NG tube within the stomach. Left c entral venous catheter tip in the SVC/RA junction. There is no significant interval change in the pulmonary vascular congestion and small bilateral pleu ral effusions. There is no pneumothorax. The heart size is normal. IMPRESSION: 1. ET tube 5.2 cm above the landen. NG tube within the stomach.Left central venous catheter tip in th e SVC/RA junction. 2. No change in the acute cardiopulmonary process as described above. [facility], , 12/14/2024 7:10 AM
--- NOTE | 2024-12-14 09:06 | P.PN ---
Subjective Progress Note Date: 12/13/24 Principal diagnosis: Reason for follow-up is acute influenza A/Pseudomonas pneumonia Patient is a 84-year-old male with a past medical history significant for atrial fibrillation diabetes mellitus DVT hypertension hyperlipidemia recent admission to the hospital diagnosed with MRSA bacteremia source was likely pneumonia, did have a negative LIS presenting back to the hospital for increasing shortness of breath has been diagnosed with sepsis secondary pneumonia also tested positive for influenza A sputum showing Pseudomonas. On today's evaluation that is 12/13/2024, the patient continues to be afebrile, the patient is on ventilator FiO2 is currently stable at 50% no significant purulent secretion through the ET diarrhea and the change reported by nursing staff. Patient white count slightly up to 26.6, creatinine is 3.94 blood culture have been negative Objective - Vital Signs Vital signs: Vital Signs Temp 97.0 F L 12/13/24 12:00 Pulse 121 H 12/13/24 14:45 Resp 28 H 12/13/24 13:15 BP 107/64 12/13/24 13:15 Pulse Ox 92 L 12/13/24 13:15 FiO2 50 12/13/24 14:47 Intake & Output 12/12/24 12/13/24 12/13/24 18:59 06:59 18:59 Intake Total 4943.134 1016.105 741.127 Output Total 2510 46 0 Balance -0829.701 6814.105 741.127 Weight 127.5 kg 127.5 kg Intake: IV 366 269 125 Cefepime 1 gm In Sodium 100 50 Chloride 0.9% 50 ml @ 12. 5 mls/hr IVPB Q12H [facility] Rx #:[id number] Pressure Bag 36 39 15 kvo 230 230 60 Intake, IV Titration 504.294 870.105 391.127 Amount Norepinephrine 4 mg In 254.000 444.240 207.522 Sodium Chloride 0.9% 250 ml @ 0.03 MCG/KG/MIN 12. 443 mls/hr IV .[id number] [facility] Rx#:[id number] propofoL 1,000 mg In 250.294 425.865 183.605 Empty Bag 1 bag @ 15 MCG/ KG/MIN 9.798 mls/hr IV . [id number] [facility] Rx#:[id number] Tube Feeding 35 385 165 Hemodialysis 500 Other 120 60 Output: Urine 10 46 0 Hemodialysis 1500 Hemodialysis Net Amount 1000 Other: Voiding Method Indwelling Catheter Indwelling Catheter Indwelling Catheter # Voids 0 ABP, PAP, CO, CI - Last Documented Arterial Blood Pressure 98/55 - Exam GENERAL DESCRIPTION: An elderly male intubated on the vent RESPIRATORY SYSTEM: Unlabored breathing , decreased breath sounds at bases HEART: S1 S2 regular rate and rhythm , ABDOMEN: Soft , no tenderness EXTREMITIES: Mild swelling to the leg no redness - Labs CBC & Chem 7: 12/14/24 04:30 12/14/24 04:30 Labs: Abnormal Lab Results - Last 24 Hours (Table) 12/12/24 12/12/24 12/12/24 Range/Units 17:22 19:39 23:29 WBC (3.8-10.6) k/uL RBC (4.30-5.90) m/uL Hgb (13.0-17.5) gm/dL Hct (39.0-53.0) % RDW (11.5-15.5) % Plt Count (150-450) k/uL Neutrophils # (Manual) (1.3-7.7) k/uL Lymphocytes # (Manual) (1.0-4.8) k/uL ABG pH (7.35-7.45) ABG pCO2 (35-45) mmHg ABG O2 Saturation (94-97) % Hemoglobin (13.0-17.5) gm/dL Sodium (137-145) mmol/L Potassium 5.4 H (3.5-5.1) mmol/L Chloride (98-107) mmol/L Carbon Dioxide (22-30) mmol/L BUN (9-20) mg/dL Creatinine (0.66-1.25) mg/dL Glucose (74-99) mg/dL POC Glucose (mg/dL) 150 H 138 H (70-110) mg/dL Calcium (8.4-10.2) mg/dL Magnesium (1.6-2.3) mg/dL ALT (4-49) U/L Total Protein (6.3-8.2) g/dL Albumin (3.5-5.0) g/dL 12/13/24 12/13/24 12/13/24 Range/Units 05:29 05:31 05:32 WBC 26.6 H (3.8-10.6) k/uL RBC 3.76 L (4.30-5.90) m/uL Hgb 10.6 L (13.0-17.5) gm/dL Hct 33.2 L (39.0-53.0) % RDW 15.8 H (11.5-15.5) % Plt Count 107 L (150-450) k/uL Neutrophils # (Manual) 26.33 H (1.3-7.7) k/uL Lymphocytes # (Manual) 0.27 L (1.0-4.8) k/uL ABG pH 7.25 L (7.35-7.45) ABG pCO2 48 H (35-45) mmHg ABG O2 Saturation 97.9 H (94-97) % Hemoglobin 10.5 L (13.0-17.5) gm/dL Sodium (137-145) mmol/L Potassium (3.5-5.1) mmol/L Chloride (98-107) mmol/L Carbon Dioxide (22-30) mmol/L BUN (9-20) mg/dL Creatinine (0.66-1.25) mg/dL Glucose (74-99) mg/dL POC Glucose (mg/dL) 151 H (70-110) mg/dL Calcium (8.4-10.2) mg/dL Magnesium (1.6-2.3) mg/dL ALT (4-49) U/L Total Protein (6.3-8.2) g/dL Albumin (3.5-5.0) g/dL 12/13/24 12/13/24 12/13/24 Range/Units 05:32 05:32 12:06 WBC (3.8-10.6) k/uL RBC (4.30-5.90) m/uL Hgb (13.0-17.5) gm/dL Hct (39.0-53.0) % RDW (11.5-15.5) % Plt Count (150-450) k/uL Neutrophils # (Manual) (1.3-7.7) k/uL Lymphocytes # (Manual) (1.0-4.8) k/uL ABG pH (7.35-7.45) ABG pCO2 (35-45) mmHg ABG O2 Saturation (94-97) % Hemoglobin (13.0-17.5) gm/dL Sodium 127 L (137-145) mmol/L Potassium 5.9 H (3.5-5.1) mmol/L Chloride 95 L (98-107) mmol/L Carbon Dioxide 19 L (22-30) mmol/L BUN 83 H (9-20) mg/dL Creatinine 3.94 H (0.66-1.25) mg/dL Glucose 147 H (74-99) mg/dL POC Glucose (mg/dL) 162 H 117 H (70-110) mg/dL Calcium 7.8 L (8.4-10.2) mg/dL Magnesium 2.6 H (1.6-2.3) mg/dL ALT 51 H (4-49) U/L Total Protein 4.8 L (6.3-8.2) g/dL Albumin 2.5 L (3.5-5.0) g/dL Microbiology - Last 24 Hours (Table) 12/07/24 09:37 Blood Culture - Final Blood Assessment and Plan (1) Influenza A Current Visit: Yes Status: Acute Code(s): J10.1 - FLU DUE TO OTH IDENT INFL UENZA VIRUS W OTH RESP MANIFEST SNOMED Code(s): 807690374 (2) Leukocytosis Current Visit: Yes Status: Acute Code(s): D72.829 - ELEVATED WHITE BLOOD CELL COUNT, UNSPECIFIED SNOMED Code(s): 085619715 (3) Pneumonia Current Visit: No Status: Acute Code(s): J18.9 - PNEUMONIA, UNSPECIFIED ORGANISM SNOMED Code(s): 756295595 (4) Sepsis Current Visit: No Status: Acute Code(s): A41.9 - SEPSIS, UNSPECIFIED ORGANISM SNOMED Code(s): 13497070 Plan: 1patient presented to hospital with sepsis in this patient who did have hypotension requiring pressor support elevated white count source is multifactorial possible component of pneumonia with the sputum not showing Pseudomonas aeruginosa and recently did have a history of MRSA pneumonia for the patient has received adequate vancomycin which has been discontinued. 2 Patient with acute influenza A, patient is covered with Tamiflu to finish a 5-day course of therapy 3-patient did have worsening of his kidney function and has been started on hemodialysis with a second session today 4- patient is afebrile patient white count trending up the need to be monitored closely, patient blood culture have been negative sputum is showing Pseudomonas aeruginosa 4patient currently on cefepime which will be continued and will monitor clinical course closely Dictation was produced using Note dictation software. please excuse any grammatical, word or spelling errors.
[2024-12-14] MEDS ORDERED: HEPARIN SODIUM 1,000 UN/ML (10ML VL) ONE (09:15)
[2024-12-14] MEDS: APIXABAN 2.5 MG TABLET PO SCH (09:19)
--- NOTE | 2024-12-14 09:28 | P.PN ---
Subjective Principal diagnosis: Respiratory failure. This is an 84-year-old white male familiar to my service, patient was recently seen in the hospital for MRSA bacteremia, workup for endocarditis and transesophageal echocardiogram was unremarkable and there was no evidence of vegetations. Patient was discharged to [facility] on vancomycin and he had a PICC line in place. His transesophageal echo on his last admission showed ejection fraction of 45%, patient is also known to have history of paroxysmal atrial fibrillation as well as history of hereditary factor VIII deficiency. In addition to all of this the patient is known to have history of mild COPD, hiatal hernia, hypertension, and yesterday [facility] was concerned about the patient having episodes of shortness of breath. Patient received diuretics, received bronchodilators, this was done upon arrival to the ER, patient developed worsening atrial fibrillation with RVR. I was notified about this patient from the ER, initially recommended amiodarone and amiodarone drip because of his atrial fibrillation with RVR, cardiology was consulted, his oxygenation while in the ER was getting worse in spite of diuretics his chest x- ray did not show any evidence of significant pulmonary edema, patient was intubated shortly after upon my recommendation, and arrangements made for the patient to transfer to the ICU late at night. In the meantime patient was noted to have leukocytosis, WBC count as high as 43.6, hemoglobin was 12.2. Basic metabolic profile was normal except for slightly low bicarb of 18 BUN 35 creatinine 1.28. Chest x-ray this morning showed normal pulmonary vasculature there was no clear-cut evidence of pneumonia or any pleural effusion, no evidence of congestive heart failure, patient did receive multiple fluid boluses yesterday for low blood pressure after intubation. Today the patient is on assist-control rate of 24 tidal volume 500 FiO2 90% and PEEP of 8 which I increased to 10 ABG remains marginal with a pO2 of 85 pCO2 44 pH of 7.31 patient has been on Xarelto for history of chronic atrial fibrillation presently I would recommend that we place the patient on heparin, patient is still receiving amiodarone at 0.5 mg/min he is also on norepinephrine at 0.06 mcg/kg/min propofol at 50 mcg/kg/min IV fluid 100 cc/h 0.9 normal saline. Went ahead and establish a right radial arterial line, patient does have a PICC line in place hence no need to change PICC line unless the patient comes back with positive blood cultures. In the meantime we are recommending cefepime and vancomycin. 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 Knowing this, possibility of pulmonary embolism is likely and I am recommending that we heparinized the patient for now, once his renal functioning improved may consider sending him down for a CT angiogram of the chest. Seen today on 12/08/2024, patient remains in the ICU, intubated mechanically ventilated, he is on assist-control rate of 24 tidal volume 500 FiO2 90% PEEP of 12 ABG showed a pO2 of 125 pCO2 50 pH of 7.25 hence tidal volume was increased to 550, FiO2 was cut down to 60%, kept the PEEP at 12. Chest x-ray is showing evidence of worsening interstitial edema. Patient is on diuretics Lasix 80 mg IV push twice daily. Patient is still requiring pressors he is on norepinephr ine at 0.06 mcg/kg/min propofol at 30 mcg/kg/min IV fluid was 100 cc/h, however considering his chest x-ray I recommended we cut it down to KVO. Patient remains on amiodarone at 0.5 mg/min antibiotics schaefer he is on cefepime and vancomycin patient had recent MRSA bacteremia he is also on Tamiflu for acute influenza. For his DVT and possible pulmonary embolism patient remains on heparin as per protocol. Patient is sedated, still hemodynamically unstable requiring norepinephrine, patient is receiving GI DVT prophylaxis is also on enteral feeding for nutritional support. Blood cultures are still pending no plans to address weaning today since the patient is still requiring relatively high FiO2 and high PEEP. Renal functioning seems to be a bit worse, being addressed by nephrology on the case. Patient may have developed acute kidney injury, likely cardiorenal in nature. And could be related to his low blood pressure on presentation /acute tubular necrosis. 12/09/2024: Patient remains in the ICU, intubated mechanically ventilated, he is on assist-control rate of rr 24 tidal volume 550, peep at 12, fio2 60. ABG showed pO2 of 72, pCO2 43, and pH of 7.32. Overnight heart rate was in the 140s, Dr. Taylor was called and he gave Lopressor PO. CXR showing evidence of stable interstitial pattern with small effusion and basilar subsegmental consolidation. Patient had lower extremity Doppler on 12/07 showing chronic nonoccluding right lower extremity DVT for which she remains on heparin as per protocol. Patient is sedated, still hemodynamically unstable requiring norepinephrine, patient is receiving GI DVT prophylaxis and is also on enteral feeding 25 at goal. Fluid balance is approximately positive 1 L in the last 24 hours. Levo at 7.63 mg/min, heprin at 10, amio at .5, prop 50. Lasix at 80 IV BID. Preliminary Gram stain showed Pseudomonas and blood cultures have been nega tive through 48 hours. . Creatinine today 2.58 which is increased from yesterday of 1.89. Nephrology is following, they added 2 amp sodium bicarb IV push yesterday and stopped Cozaar, Aldactone, and Farxiga. Nephrology considers DEENA secondary to ATN secondary to septic shock as patient's baseline creatinine is usually near 1. Progress note dated December 10, 2024. 84-year-old male seen today in room 254. He remains on the mechanical ventilator. He is on volume assist-control mode, rate 24, tidal volume 450, FiO2 60%, PEEP of 12. Blood gases show a pO2 of 75, pCO2 of 53, pH of 7.23. The patient is getting saline at 20 cc an hour, propofol at 20 mcg/kg/min, Levophed at 2 mcg/min. In addition, the patient is getting heparin via weight- based protocol, and vital AF at 25 cc an hour which is goal. The patient continues on Tamiflu, and cefepime. His peak airway pressures 33, with a pl ateau pressure of 22. Current labs include a white count of 27.5, hemoglobin 11.6, hematocrit 36.2, and a platelet count of 139,000. PTT is 46.6. Sodium 134, potassium 4.8, chlorides 101, CO2 21, BUN 68, and creatinine 3.51. Glucose is 136. Calcium is 8. Sputum from December 06 is positive for Pseudomonas aeruginosa. Chest x-ray earlier from this morning, shows a stable interstitial pattern with small effusion. Chest x-ray after central line insertion shows a properly placed central line, with the tip of the catheter at the junction of superior vena cava and right atrium. Progress note dated December 11, 2024. 84-year-old male seen today in room 254. He remains on the mechanical chris tilator. He is on volume assist-control mode, rate 28, tidal volume of 450, FiO2 60%, and PEEP of 12. His peak airway pressure is 29, with a plateau pressure of 22. Blood gases show pH 7.2, pCO2 51, pO2 96. The patient is getting NS at 20 cc/h and propofol at 40 mcg/kg/min, no levo since 4 AM this morning. In addition the patient is off heparin currently due to bleeding around central line that was placed yesterday.Vital AF at 25 cc an hour and a goal of 35. The patient continues on cefepime (day 3) and completed Tamiflu. Current labs include WBC of 18.6, hemoglobin of 10.8, hematocrit of 34.7, and platelet count of 115,000. Sodium is 131, potassium 5.5, chloride 100, BUN 89, and creatinine 4.26. Glucose is 138. Calcium 7.9. Urine output remains poor, 690 mL over the last 24 hours. Chest x-ray from earlier from this morning shows blunting of the costophrenic angle, cardiomegaly, pulmonary vascular congestion and bilateral pleural effusions. Patient getting dialysis catheter placed this morning. Progress note dated December 12, 2024. 84-year-old male seen today in room 254. No significant overnight events, yesterday had dialysis catheter placed and received first round of dialysis. He remains on the mechanical ventilator. He is on volume assist-control mode,rr 28, tv 450, fio2 60%, and peep 12. The delta between the peak airway pressure and plateau pressure was 11. Blood gases show pO2 of 74, pCO2 56, and pH of 7.21 the patient is getting NS at 10ml/hr and propofol at 60. Patient is on levo at 0.05. Currently heparin drip on hold. Vital AF at 35. The patient continues on cefepime (day 4) and completed Tamiflu already. Current labs include WBC of 25.8, hemoglobin of 11, platelet count of 122,000, sodium 128, potassium 6, bicarb 20, BUN 81, creatinine 4.31, glucose 123, and calcium 7.7. They took off 1.5 L during hemodialysis yesterday. Chest x-ray shows stable/potentially slightly worsening right basilar airspace opacities.` Progress note dated December 13, 2024. 84-year-old male seen today in room 254. No significant overnight events, yesterday received another round of dialysis. Plan is to receive dialysis again today, potentially sled. He remains on mechanical ventilator on volume assist- control mode with a respiratory rate of 28, tidal volume of 450, FiO2 60%, and PEEP of 12. The delta between the peak airway pressure and plateau pressure was 10. Patient noted to have significant cuff leak. Blood gases show pO2 106, pCO2 48, and pH 7.25. The patient is getting NS@10 mL/h and propofol at 60. Patient is on levo at 11.4 mcg/min. Patient remains off heparin for 2 days now after having bleeding from central line. Getting vital AF at 35 which is goal. On amiodarone 200 twice daily and Lopressor 25 3 times daily for A-fib. Patient continues on cefepime (day 5) and has already completed 5-day course Tamiflu. Current labs include WBC of 26.6, hemoglobin of 10.6, platelet count 107,000, sodium 127, potassium 5.9, bicarb 19, BUN 83, creatinine 3.94, calcium 7.8, and albumin 2.5. They took off 1.5 L during hemodialysis yesterday. Chest x-ray shows improvement from prior in the right lower lobe, stable left pleural e ffusion still noted. Progress note dated December 14, 2024. 84-year-old male seen today in room 254. No significant overnight events, yesterday received sled and took off 2.4L. Patient remains on mechanical ventilator on volume assist-control mode with respiratory rate of 28, tidal volume 450, FiO2 50%, and PEEP of 10. The delta between the peak airway pressure and plateau pressure was 8. Blood gases show pCO2 75, pCO2 47, and pH 7.29. The patient is getting NS@10 mL/h and propofol at 60 mcg/kg/min. Patient was on levo at 9 mcg/min. For DVT prophylaxis patient is on Lovenox SQ 40 daily . Getting vital AF at 25 which is goal. On amiodarone 200 mg twice daily and Lopressor 25 mg 3 times daily for A-fib. Patient continues on cefepime (day 6). Current labs include WBC 21.6, hemoglobin 10.3, platelet count 90,000, sodium 127, potassium 5.4, BUN 70, creatinine 3.21, calcium 7.9. They took off 2.4 L yesterday during dialysis. Chest x-ray shows no significant interval change in the pulmonary vascular congestion and bilateral small pleural effusions. Physical exam: No acute distress, sedated, with an orally placed endotracheal tube. HEENT examination is grossly unremarkable. Mucous membranes are moist. No oral lesions. Neck supple. Full range of motion. No adenopathy thyromegaly or neck vein distention. Cardiovascular examination reveals regular rhythm rate. S1-S2 normal. No S3 or S4. No discernible murmur noted. Lungs reveal scattered coarse rhonchi. Crackles are appreciated. No wheezes. Breath sounds are equal. Abdomen soft bowel sounds are heard. No masses or tenderness. Extremities are intact. No cyanosis or clubbing. Diffuse anasarca is noted. Skin is without rash or lesion. Neurologic examination cannot be assessed at this time. Assessment: Acute hypoxemic respiratory failure, currently maintained on mechanical ventilation. Persistent sepsis and septic shock, secondary to MRSA bacteremia. Moderate LV dysfunction, with diffuse interstitial edema. Acute kidney injury secondary to hypotension, and possible acute tubular necrosis. History of atrial fibrillation with RVR. Acute on chronic systolic congestive heart failure. COPD exacerbation. History of BPH. History of factor VIII deficiency. Possible pulmonary embolism. History of DVT. Benign essential hypertension. Acute influenza A infection. History of previous right total hip arthroplasty. Plan: Plan dated December 10, 2024. The patient is seen today in room 254. He had an uneventful night according to the nurses. The patient continues on mechanical ventilation. Blood gases show pO2 of 75, pCO2 of 53, pH is 7.23. The patient continues on propofol, and a small amount of Levophed at 2 mcg/min. The patient continues on heparin via weight-based protocol. In addition, the patient continues on Tamiflu, and cefepime. Respiratory mechanics reveal a peak airway pressure of 33 cm of water, and a plateau pressure of 22 cm of water. The patient is receiving tube feedings with vital AF at goal, which is 25 cc an hour. Labs, x-rays, and all medications are reviewed. Prognosis is guarded. The patient does continue on GI and DVT prophylaxis. Plan dated December 11, 2024. The patient is seen today in room 254. No significant overnight events ac cording to nurses. The patient continues on mechanical ventilation. Blood gases show pO2 96, pCO2 51, and pH is 7.21. Propofol is at 40 mcg/kg/min, no levo since 4 AM this morning. Heparin currently discontinued due to bleeding from the central line as well as in anticipation of the patient getting dialysis catheter today. Patient requires dialysis catheter due to poor urine output and steadily increasing BUN and creatinine. This is in concordance with nephrology's plan. Patient has completed Tamiflu and is on day 3 of cefepime. Respiratory mechanics reveal peak airway pressure of 29 cm of water with a plateau pressure of 22 cm of water. New goal for vital AF is 35. Labs, x-rays, and all medications are reviewed. Prognosis is guarded. The patient does continue on GI and DVT prophylaxis. Plan dated December 12, 2024. The patient is seen today in room 254. No significant overnight events. Patient had a dialysis catheter placed yesterday, and underwent 1 round of dialysis then and is currently receiving another round of dialysis this morning. Will reevaluate renal function in the a.m. tomorrow after this round of dialysis and determine if further dialysis is required. The patient continues on mechanical ventilation. Blood gases show pO2 74, pCO2 56, and pH 7.21. NS is running at 10 mL/h and propofol at 60. Patient is currently on 0.08 Levophed. Decreased 60 mg IV solumedrol to BID. Per cardiology metoprolol has been increased to 25 mg 3 times daily for better control of A-fib and continuation of the amiodarone that he is already on. Currently on day 4 of cefepime after positive for Pseudomonas sputum culture. Labs, x-rays, and all medications are reviewed. Prognosis is guarded. The patient does continue on GI and DVT prophylaxis. Plan dated December 13, 2024. The patient is seen today in room 254. No significant overnight events. Patient received second round of dialysis yesterday taking of 1.5 L. Plan for today is for patient to get sled. ABG showed pO2 of 106, pCO2 48, and pH 7.25 and based off these findings we have reduced FiO2 to 50%. NS continues running at 10 mL/h and propofol is at 60. Patient currently on Levophed 11.4 mcg/min, will continue to try to wean throughout the day. Albumin noted to be low, likely explains the third spacing that is occurring. Continue to ensure nutrition is at goal, currently vital AF at 35. Patient remains on 60 mg IV Solu-Medrol twice daily. For A-fib patient is on Lopressor 25 mg 3 times daily and amiodarone. Currently on day 5 of cefepime. Patient has been off heparin for 2 days after having bleeding around the central line. Will start Lovenox SQ 40 daily. Labs, x-rays, and all medications are reviewed. Prognosis is guarded. The patient does continue on GI and DVT prophylaxis. Plan dated December 14, 2024. The patient is seen today in room 254. No significant overnight events. Patient received third round of dialysis yesterday taking off 2.4 L. Plan for today is for another round of dialysis. ABG showed pO2 of 75, pCO2 47, and pH of 7.29 and based off these values we dropped the PEEP to 10 and will except saturations above 88. NS continues running at 10 mL/h, and propofol at 60 mcg/min. Patient is requiring less Levophed now 9 mcg/min, will continue to try to wean throughout the day. Nutrition, patient receiving vital AF at 25 which is goal. Patient remains on 60 mg IV Solu-Medrol twice daily. Lopressor 25 mg 3 times daily and amiodarone 200 mg twice daily for A-fib. Currently on day 6 of cefepime, will discontinue after 7-day course of antibiotics for Pseudomonas infection in the sputum. For DVT prophylaxis patient is on Lovenox SQ 40 daily. Labs, x-rays, and all medications are reviewed. Prognosis is guarded. The patient does continue on GI and DVT prophylaxis. Objective - Vital Signs Vital signs: Vital Signs Temp 97.8 F 12/14/24 04:00 Pulse 96 12/14/24 07:00 Resp 28 H 12/14/24 07:00 BP 131/87 12/14/24 00:45 Pulse Ox 91 L 12/14/24 07:00 FiO2 50 12/14/24 04:00 Intake & Output 12/13/24 12/14/24 12/14/24 18:59 06:59 18:59 Intake Total 9391.877 4292.405 48 Output Total 4400 5 0 Balance -2584.822 1478.405 48 Weight 127.5 kg 126.5 kg Intake: IV 203 266 23 Cefepime 1 gm In Sodium 50 Chloride 0.9% 50 ml @ 12. 5 mls/hr IVPB Q12H [facility] Rx #:[id number] Pressure Bag 33 36 3 kvo 120 230 20 Intake, IV Titration 807.178 827.405 Amount Norepinephrine 4 mg In 461.522 392.917 Sodium Chloride 0.9% 250 ml @ 0.03 MCG/KG/MIN 12. 443 mls/hr IV .[id number] [facility] Rx#:[id number] propofoL 1,000 mg In 345.656 434.488 Empty Bag 1 bag @ 15 MCG/ KG/MIN 9.798 mls/hr IV . [id number] BRI[facility] Rx#:[id number] Tube Feeding 315 300 25 Hemodialysis 400 Other 90 90 Output: Urine 0 5 0 Hemodialysis 2400 Hemodialysis Net Amount 2000 Other: Voiding Method Indwelling Catheter Indwelling Catheter # Voids 0 0 ABP, PAP, CO, CI - Last Documented Arterial Blood Pressure 119/53 - Labs CBC & Chem 7: 12/14/24 04:30 12/14/24 04:30 Labs: Abnormal Lab Results - Last 24 Hours (Table) 12/13/24 12/13/24 12/13/24 Range/Units 12:06 17:32 23:51 WBC (3.8-10.6) k/uL RBC (4.30-5.90) m/uL Hgb (13.0-17.5) gm/dL Hct (39.0-53.0) % RDW (11.5-15.5) % Plt Count (150-450) k/uL Neutrophils # (1.3-7.7) k/uL Lymphocytes # (1.0-4.8) k/uL ABG pH (7.35-7.45) ABG pCO2 (35-45) mmHg ABG pO2 (83-108) mmHg ABG O2 Saturation (94-97) % Hemoglobin (13.0-17.5) gm/dL Sodium (137-145) mmol/L Potassium (3.5-5.1) mmol/L Chloride (98-107) mmol/L Carbon Dioxide (22-30) mmol/L BUN (9-20) mg/dL Creatinine (0.66-1.25) mg/dL Glucose (74-99) mg/dL POC Glucose (mg/dL) 117 H 149 H 126 H (70-110) mg/dL Calcium (8.4-10.2) mg/dL 12/14/24 12/14/24 12/14/24 Range/Units 04:30 04:30 05:22 WBC 21.6 H (3.8-10.6) k/uL RBC 3.69 L (4.30-5.90) m/uL Hgb 10.3 L (13.0-17.5) gm/dL Hct 32.1 L (39.0-53.0) % RDW 15.7 H (11.5-15.5) % Plt Count 92 L (150-450) k/uL Neutrophils # 20.9 H (1.3-7.7) k/uL Lymphocytes # 0.2 L (1.0-4.8) k/uL ABG pH 7.29 L (7.35-7.45) ABG pCO2 47 H (35-45) mmHg ABG pO2 75 L (83-108) mmHg ABG O2 Saturation 93.9 L (94-97) % Hemoglobin 10.2 L (13.0-17.5) gm/dL Sodium 127 L (137-145) mmol/L Potassium 5.4 H (3.5-5.1) mmol/L Chloride 96 L (98-107) mmol/L Carbon Dioxide 20 L (22-30) mmol/L BUN 70 H (9-20) mg/dL Creatinine 3.21 H (0.66-1.25) mg/dL Glucose 127 H (74-99) mg/dL POC Glucose (mg/dL) (70-110) mg/dL Calcium 7.9 L (8.4-10.2) mg/dL 12/14/24 Range/Units 06:20 WBC (3.8-10.6) k/uL RBC (4.30-5.90) m/uL Hgb (13.0-17.5) gm/dL Hct (39.0-53.0) % RDW (11.5-15.5) % Plt Count (150-450) k/uL Neutrophils # (1.3-7.7) k/uL Lymphocytes # (1.0-4.8) k/uL ABG pH (7.35-7.45) ABG pCO2 (35-45) mmHg ABG pO2 (83-108) mmHg ABG O2 Saturation (94-97) % Hemoglobin (13.0-17.5) gm/dL Sodium (137-145) mmol/L Potassium (3.5-5.1) mmol/L Chloride (98-107) mmol/L Carbon Dioxide (22-30) mmol/L BUN (9-20) mg/dL Creatinine (0.66-1.25) mg/dL Glucose (74-99) mg/dL POC Glucose (mg/dL) 133 H (70-110) mg/dL Calcium (8.4-10.2) mg/dL
[2024-12-14 11:35] LABS: Glucose,Whole Blood 111 mg/dL (70-110)
--- NOTE | 2024-12-14 14:04 | P.PN ---
Subjective Progress Note Date: 12/14/24 Patient is seen for follow-up for acute kidney injury. Patient remains on the vent. FiO2 decreased to 50%. Maintained on Levophed. Started hemodialysis on 12/11/24 for worsening oliguric acute kidney injury and volume overload. Seen today while undergoing SLED with low blood flow and dialysate flow. Minimal urine output. Patient is on the vent. Examination of the heart S1 and S2 Examination of the lungs bilateral breath sounds are heard Abdomen is soft nontender Examination of lower extremities shows edema 1+ bilaterally. Objective - Vital Signs Vital signs: Vital Signs Temp 97.8 F 12/14/24 04:00 Pulse 96 12/14/24 08:00 Resp 28 H 12/14/24 07:00 BP 131/87 12/14/24 00:45 Pulse Ox 91 L 12/14/24 07:00 FiO2 50 12/14/24 07:53 Intake & Output 12/13/24 12/14/24 12/14/24 18:59 06:59 18:59 Intake Total 3022.346 0934.405 148 Output Total 4400 5 0 Balance -2584.822 1478.405 148 Weight 127.5 kg 126.5 kg Intake: IV 203 266 23 Cefepime 1 gm In Sodium 50 Chloride 0.9% 50 ml @ 12. 5 mls/hr IVPB Q12H [facility] Rx #:[id number] Pressure Bag 33 36 3 kvo 120 230 20 Intake, IV Titration 807.178 827.405 100 Amount Norepinephrine 4 mg In 461.522 392.917 Sodium Chloride 0.9% 250 ml @ 0.03 MCG/KG/MIN 12. 443 mls/hr IV .[id number] BRIANA Rx#:[id number] propofoL 1,000 mg In 345.656 434.488 100 Empty Bag 1 bag @ 15 MCG/ KG/MIN 9.798 mls/hr IV . [id number] BRIANA Rx#:[id number] Tube Feeding 315 300 25 Hemodialysis 400 Other 90 90 Output: Urine 0 5 0 Hemodialysis 2400 Hemodialysis Net Amount 2000 Other: Voiding Method Indwelling Catheter Indwelling Catheter # Voids 0 0 ABP, PAP, CO, CI - Last Documented Arterial Blood Pressure 119/53 - Labs CBC & Chem 7: 12/14/24 04:30 12/14/24 04:30 Labs: Abnormal Lab Results - Last 24 Hours (Table) 12/13/24 12/13/24 12/13/24 Range/Units 12:06 17:32 23:51 WBC (3.8-10.6) k/uL RBC (4.30-5.90) m/uL Hgb (13.0-17.5) gm/dL Hct (39.0-53.0) % RDW (11.5-15.5) % Plt Count (150-450) k/uL Neutrophils # (1.3-7.7) k/uL Lymphocytes # (1.0-4.8) k/uL ABG pH (7.35-7.45) ABG pCO2 (35-45) mmHg ABG pO2 (83-108) mmHg ABG O2 Saturation (94-97) % Hemoglobin (13.0-17.5) gm/dL Sodium (137-145) mmol/L Potassium (3.5-5.1) mmol/L Chloride (98-107) mmol/L Carbon Dioxide (22-30) mmol/L BUN (9-20) mg/dL Creatinine (0.66-1.25) mg/dL Glucose (74-99) mg/dL POC Glucose (mg/dL) 117 H 149 H 126 H (70-110) mg/dL Calcium (8.4-10.2) mg/dL 12/14/24 12/14/24 12/14/24 Range/Units 04:30 04:30 05:22 WBC 21.6 H (3.8-10.6) k/uL RBC 3.69 L (4.30-5.90) m/uL Hgb 10.3 L (13.0-17.5) gm/dL Hct 32.1 L (39.0-53.0) % RDW 15.7 H (11.5-15.5) % Plt Count 92 L (150-450) k/uL Neutrophils # 20.9 H (1.3-7.7) k/uL Lymphocytes # 0.2 L (1.0-4.8) k/uL ABG pH 7.29 L (7.35-7.45) ABG pCO2 47 H (35-45) mmHg ABG pO2 75 L (83-108) mmHg ABG O2 Saturation 93.9 L (94-97) % Hemoglobin 10.2 L (13.0-17.5) gm/dL Sodium 127 L (137-145) mmol/L Potassium 5.4 H (3.5-5.1) mmol/L Chloride 96 L (98-107) mmol/L Carbon Dioxide 20 L (22-30) mmol/L BUN 70 H (9-20) mg/dL Creatinine 3.21 H (0.66-1.25) mg/dL Glucose 127 H (74-99) mg/dL POC Glucose (mg/dL) (70-110) mg/dL Calcium 7.9 L (8.4-10.2) mg/dL 12/14/24 Range/Units 06:20 WBC (3.8-10.6) k/uL RBC (4.30-5.90) m/uL Hgb (13.0-17.5) gm/dL Hct (39.0-53.0) % RDW (11.5-15.5) % Plt Count (150-450) k/uL Neutrophils # (1.3-7.7) k/uL Lymphocytes # (1.0-4.8) k/uL ABG pH (7.35-7.45) ABG pCO2 (35-45) mmHg ABG pO2 (83-108) mmHg ABG O2 Saturation (94-97) % Hemoglobin (13.0-17.5) gm/dL Sodium (137-145) mmol/L Potassium (3.5-5.1) mmol/L Chloride (98-107) mmol/L Carbon Dioxide (22-30) mmol/L BUN (9-20) mg/dL Creatinine (0.66-1.25) mg/dL Glucose (74-99) mg/dL POC Glucose (mg/dL) 133 H (70-110) mg/dL Calcium (8.4-10.2) mg/dL Assessment and Plan Assessment: 1. Acute kidney injury secondary to ATN secondary to septic shock. Baseline creatinine near 1.0 and peaked at 4.3. Oliguric. No hydronephrosis noted on kidney ultrasound. Started hemodialysis on 12/11/24 2. Acute hypoxic respiratory failure secondary to pneumonia and component of CHF 3. Septic shock. Patient with influenza A pneumonia and sputum culture positive for Pseudomonas. 4. Metabolic acidosis secondary to acute kidney injury. Better. 5. A-fib with RVR maintained on oral amiodarone. 6. Cardiomyopathy with ejection fraction of 40 to 45%. 7. Fluid overload. Plan: Hemodialysis today. We will repeat sled, sustained low efficiency dialysis due to continued hypotension. Next HD treatment will be Monday unless urgent need arises tomorrow
--- NOTE | 2024-12-14 14:58 | P.PN ---
Subjective Progress Note Date: 12/14/24 Interval History: This is a 84-year-old male with past medical history of hypertension, paroxysmal atrial fibrillation on Xarelto, benign prostatic hypertrophy, hiatal hernia, hereditary factor VIII deficiency, hyperlipidemia, mild intermittent asthma, mild COPD, patient was recently admitted to [facility] after he underwent right total hip arthroplasty that was done by Dr. Thakkar and he has been at [facility] for physical therapy rehabilitation, patient was recently hospitalized at [facility] from November 25 of December 04 after he was admitted for what appears to be right lower lobe pneumonia appears to be MRSA pneumonia, initially was started on vancomycin as well as cefepime was seen in consultation by pulm medicine as well as cardiology, he had a significant MRSA bacteremia, that responded very well to vancomycin, patient ended up going for transesophageal echocardiogram that did not show evidence of any vegetation, it did show evidence of 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%, patient was sent to [facility] December 04, 2024 while he was there he was requiring about 5 L nasal cannula of oxygen, I received a phone call from the nursing staff stating that the patient is in acute respiratory distress today, he was given 60 mg IM of Lasix as well as 80 mg IM of Solu-Medrol with nebulizer treatment along with Pulmicort and DuoNeb, without any relief, he was placed on nonrebreather, and patient was sent to the ER for evaluation, he was found to have a significant leukocytosis with a white count of 36,000, his swab came back positive for influenza A, and chest x-ray showed evidence of cardiomegaly as well as basilar pneumonia patient was started back on his vancomycin as well as cefepime he was started on Tamiflu, he was started on Lasix 80 mg IV push every 12 hours, along with Solu-Medrol 60 mg IV push every 6 hours, DuoNeb nebulizatio n 4 times every day Pulmicort 1 mg nebulization twice every day he is currently on BiPAP, pulmonary consultation as well as cardiology consultation. Sputum culture will be obtained as well as blood cultures. 12/07: While the patient yesterday in the emergency department he went into severe respiratory distress while he was on the BiPAP, he did receive 1 dose of Lasix 80 mg IV push, along with Solu-Medrol 60 mg IV push along with nebulized treatment in the form of DuoNeb as well as Pulmicort, without relief, at that time the decision was made for the patient to be intubated and transferred to the intensive care unit from the emergency department, patient is currently sedated on the ventilator, he is currently on amiodarone drip, as well as propofol drip, he is on 90% FiO2, with a PEEP of 5, pulmonary/critical care is following the patient very closely, cardiology is following as well, patient was started on IV antibiotic in the form of vancomycin as well as cefepime, he was started on Tamiflu as well due to influenza A, his white count initially was elevated at 43,000 down to 38,000, patient appears quite sick at this point in time, his prognosis continue be guarded, will continue with aggressive treatment plan for now, we will follow-up with the patient very closely. 12/08: Patient is laying down in bed he continues to be on the ventilator, currently FiO2 of 60%, PEEP of 12, tidal volume of 550, he continues to have a significant edema both upper and lower extremities, he is not getting any more IV fluid, will wean down his Levophed drip, continue IV antibiotic in the form of vancomycin as well as cefepime, sputum cultures growing Pseudomonas aeruginosa, currently on cefepime as well as vancomycin with pharmacy to dose to be controlled, continue also with Tamiflu for influenza A, patient was seen earlier by nephrology for acute kidney injury due to acute tubular necrosis and vasomotor nephropathy due to septic shock, continue current Lasix 80 mg IV push every 12 hours, monitor the patient input and output and daily weight, ultrasound of the kidney was obtained. 12/09: Patient is still intubated on the ventilator, he is currently on AC mode with a tidal volume of 550 respiration of 24, FiO2 of 60%, PEEP of 12, x-ray still showing evidence of pulmonary edema, he has been getting Lasix 80 mg IV push every 12 hours, he has an acute kidney injury that is getting worse today, his BUN and creatinine is elevated, nephrology is following, patient continues to be on Levophed, he has been on cefepime we will monitor the patient very closely, continue current treatment plan, will follow-up with the patient very closely, patient has been seen by nephrology, cardiology, as well as by pulmonary medicine and critical care, patient also was seen in consultation by infectious disease at this point in time, taken off vancomycin and Tamiflu due to acute kidney injury. 12/10: Patient is laying down in bed he continues to be on the ventilator, his current vent setting is FiO2 of 60%, respiratory rate is 24, tidal volume 450, and FiO2 of 60%, PEEP of 12, patient blood gases showed evidence of metabolic and respiratory acidosis with hypoxemia his pO2 is about 72 and pCO2 is 56, patient is getting a central line today, he continues to have worsening kidney function, will continue current treatment plan, continue follow-up with the patient very closely 12/11: Patient is laying down in bed continues to be sedated on the ventilator, worsening renal function his creatinine is up to 4.5, decreased urine output, was on lasix drip without improvement and he was started on HD today for 2 hours , patient continues to be treated with cefepime for Pseudomonas pneumonia, he continued to have a septic shock he is currently on Levophed, he is currently on propofol, his prognosis continues to be guarded, patient has underlying 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%, he continues to have atrial fibrillation for which she has been on amiodarone, patient has been followed by multiple specialties including ICU/pulmonary medicine, cardiology, nephrology, infectious disease, we will continue to follow-up with the patient very closely, he may require to have hemodialysis even for short period of time to improve his kidney function as well as fluid status. 12/12: Patient remains on the ventilator, his current tidal volume is 450 FiO2 of 60%, and a PEEP of 12, he is still requiring quite a bit of sedation he is still requiring Levophed to keep his pressure up, he is getting his edema hemodialysis for the second day today, his blood pressure is marginal, we discussed with the nursing staff increasing his Levophed little bit, but he is still in atrial fibrillation with rapid ventricular response, his urine output is minimal, trying to get another 500 cc out of his body today, chest x-ray still showing evidence of right lower lobe pneumonia, will follow-up with the patient very closely at this point patient prognosis continue to be guarded, I still think th at the patient can turn around, we can continue with the current treatment plan continue with cefepime continue with aggressive pulmonary toileting, continue to follow-up with the patient very closely. 12/13: Patient is laying down in bed he continues to be on the ventilator, with the AC mode, tidal volume of 450, respiratory rate of 28, FiO2 50%, PEEP of 12, chest x-ray continues to show some signs of pneumonia in the right lower lobe, minimal pulmonary vascular congestion as well, he is getting dialysis for the third day in the room, his blood pressure appears to be marginal at this time, hopefully will increase his Levophed little bit for the patient to go for dialysis at this point in time, he continues to improve slowly, he continues to be on Levophed, he continues to be on cefepime, he has been followed by multiple specialty, we will continue with the feeding tube he is currently at 35 mL/h, he seems to be tolerating this very well. 12/14--patient was seen and examined today. Remains on Levophed. Remains intubated and sedated. Underwent hemodialysis today. Vitals reviewed. WBCs 21.6, hemoglobin 10.3, platelet 92. Blood gases showed pH 7.29, pCO2 47, pO2 75. Sodium 127, potassium 5.4, BUN 70, creatinine 3.21. Infectious disease, nephrology, ICU following. Assessment and plan: 1. Acute vent dependent hypoxemic respiratory failure due to acute systolic heart failure as well as acute left lower lobe Pseudomonas pneumonia and influenza A. Continue Solu-Medrol 60 mg IV push every 12 hours, continue DuoNeb 3 mL nebulization every 4 hours, continue Pulmicort 1 mg of Lasix twice every day, continue cefepime 1 g IV piggyback every 12 hours, monitor the patient symp toms very closely, patient is still requiring FiO2 of 50% at this point in time. 2. Pseudomonas pneumonia with septic shock . Try to wean Levophed off continue IV antibiotic in the form of cefepime 1 g piggyback every 12 hours, continue oxygen support, try to wean FiO2 down, continue to monitor the patient very closely. Infectious disease consultation from Dr. Agosto is appreciated. Monitor the patient symptoms very closely, blood cultures so far no growth after 72 hours. 3. Atrial fibrillation with rapid ventricular response. Discontinue amiodarone drip, continue patient on amiodarone 200 mg orally twice every day, continue on metoprolol 25 mg orally twice every day, monitor the patient symptoms very closely. Cristopher. 4. 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 Patient is currently on Levophed drip 5. Acute kidney injury due to acute tubular necrosis with vasomotor nephropathy due to septic shock. Patient and he is getting hemodialysis today, his blood pressure is marginal his Levophed was increased. 6. Anion gap antibiotic acidosis due to acute kidney injury monitor the patient symptoms very closely, continue with hemodialysis for now. 7. COPD exacerbation. Continue Solu-Medrol 60 mg IV push every 12 hours, continue Pulmicort 1 mg nebulization twice every day, DuoNeb 3 manipulation 4 times every day, oxygen support, currently on the ventilator. 8. Mild intermittent asthma. Continue Singulair 10 mg at bedtime, loratadine 10 mg once every day, continue aggressive pulmonary toileting. 9. Benign prostatic hypertrophy. Continue Flomax 0.4 mg currently has a Henry catheter in place. 10. Hereditary factor VIII deficiency. Patient was taken off heparin drip, he is currently on Lovenox 40 mg subcutaneous every 24 hours. 11. Hyperlipidemia. Continue Zetia 10 mg daily and Atorvastatin 40 mg once a day. Monitor the patient lipid panel, keep LDL 55-70 12. Hypertension and hypertensive cardiovascular disease. patient blood pressure is soft at this time, continue metoprolol 25 mg orally 3 times every day. 13. GI prophylaxis. Protonix 40 mg IV push daily. 14. DVT prophylaxis. Request 15. Major depressive disorder. Continue patient on Effexor XR 37.5 mg orally once every day. 16. Prognosis is guarded 17. Full code. DVT prophylaxis: Eliquis Monitor vital signs and labs Labs and medication were reviewed. Continue same treatment. Further recommendations as per clinical course of the patient PHYSICAL EXAMINATION: GENERAL: A&O x 0. Intubated and sedated. HEENT: EOMI, Sclerae anicteric, Moist Mucous membranes Neck: Supple, Non tender, No JVD PULMONARY: Equal breath souds B/L, No wheezing, + crackles. CARDIOVASCULAR: S1, S2 present. No murmurs, rubs, or gallops. ABDOMEN: Soft, nontender, nondistended, normoactive bowel sounds. No guarding or rebound tenderness. MUSCULOSKELETAL: ++edema, No cyanosis. No clubbing. Normal ROM. Intact peripheral pulses. NEUROLOGICAL: CN 2-12 grossly intact. No FND Skin: No Rash REVIEW OF SYSTEMS: Review of system, patient sedated and intubated. Dictation was produced using [employer] dictation software. please excuse any grammatical, word or spelling errors. Objective - Vital Signs Vital signs: Vital Signs Temp 98.1 F 12/14/24 08:00 Pulse 98 12/14/24 11:40 Resp 28 H 12/14/24 11:00 BP 131/87 12/14/24 00:45 Pulse Ox 92 L 12/14/24 11:00 FiO2 50 12/14/24 12:00 Intake & Output 12/13/24 12/14/24 12/14/24 18:59 06:59 18:59 Intake Total 2547.472 9929.405 592.016 Output Total 4400 5 15 Balance -2584.822 1478.405 577.016 Weight 127.5 kg 126.5 kg Intake: IV 203 266 161 Cefepime 1 gm In Sodium 50 Chloride 0.9% 50 ml @ 12. 5 mls/hr IVPB Q12H [facility] Rx #:[id number] Pressure Bag 33 36 21 kvo 120 230 140 Intake, IV Titration 807.178 827.405 196.016 Amount Norepinephrine 4 mg In 461.522 392.917 Sodium Chloride 0.9% 250 ml @ 0.03 MCG/KG/MIN 12. 443 mls/hr IV .[id number] BRIANA Rx#:[id number] propofoL 1,000 mg In 345.656 434.488 196.016 Empty Bag 1 bag @ 15 MCG/ KG/MIN 9.798 mls/hr IV . [id number] BRIANA Rx#:[id number] Tube Feeding 315 300 175 Hemodialysis 400 Other 90 90 60 Output: Urine 0 5 15 Hemodialysis 2400 Hemodialysis Net Amount 2000 Other: Voiding Method Indwelling Catheter Indwelling Catheter Indwelling Catheter # Voids 0 0 ABP, PAP, CO, CI - Last Documented Arterial Blood Pressure 104/51 - Labs CBC & Chem 7: 12/14/24 04:30 12/14/24 04:30 Labs: Abnormal Lab Results - Last 24 Hours (Table) 12/13/24 12/13/24 12/14/24 Range/Units 17:32 23:51 04:30 WBC 21.6 H (3.8-10.6) k/uL RBC 3.69 L (4.30-5.90) m/uL Hgb 10.3 L (13.0-17.5) gm/dL Hct 32.1 L (39.0-53.0) % RDW 15.7 H (11.5-15.5) % Plt Count 92 L (150-450) k/uL Neutrophils # 20.9 H (1.3-7.7) k/uL Lymphocytes # 0.2 L (1.0-4.8) k/uL ABG pH (7.35-7.45) ABG pCO2 (35-45) mmHg ABG pO2 (83-108) mmHg ABG O2 Saturation (94-97) % Hemoglobin (13.0-17.5) gm/dL Sodium (137-145) mmol/L Potassium (3.5-5.1) mmol/L Chloride (98-107) mmol/L Carbon Dioxide (22-30) mmol/L BUN (9-20) mg/dL Creatinine (0.66-1.25) mg/dL Glucose (74-99) mg/dL POC Glucose (mg/dL) 149 H 126 H (70-110) mg/dL Calcium (8.4-10.2) mg/dL 12/14/24 12/14/24 12/14/24 Range/Units 04:30 05:22 06:20 WBC (3.8-10.6) k/uL RBC (4.30-5.90) m/uL Hgb (13.0-17.5) gm/dL Hct (39.0-53.0) % RDW (11.5-15.5) % Plt Count (150-450) k/uL Neutrophils # (1.3-7.7) k/uL Lymphocytes # (1.0-4.8) k/uL ABG pH 7.29 L (7.35-7.45) ABG pCO2 47 H (35-45) mmHg ABG pO2 75 L (83-108) mmHg ABG O2 Saturation 93.9 L (94-97) % Hemoglobin 10.2 L (13.0-17.5) gm/dL Sodium 127 L (137-145) mmol/L Potassium 5.4 H (3.5-5.1) mmol/L Chloride 96 L (98-107) mmol/L Carbon Dioxide 20 L (22-30) mmol/L BUN 70 H (9-20) mg/dL Creatinine 3.21 H (0.66-1.25) mg/dL Glucose 127 H (74-99) mg/dL POC Glucose (mg/dL) 133 H (70-110) mg/dL Calcium 7.9 L (8.4-10.2) mg/dL 12/14/24 Range/Units 11:34 WBC (3.8-10.6) k/uL RBC (4.30-5.90) m/uL Hgb (13.0-17.5) gm/dL Hct (39.0-53.0) % RDW (11.5-15.5) % Plt Count (150-450) k/uL Neutrophils # (1.3-7.7) k/uL Lymphocytes # (1.0-4.8) k/uL ABG pH (7.35-7.45) ABG pCO2 (35-45) mmHg ABG pO2 (83-108) mmHg ABG O2 Saturation (94-97) % Hemoglobin (13.0-17.5) gm/dL Sodium (137-145) mmol/L Potassium (3.5-5.1) mmol/L Chloride (98-107) mmol/L Carbon Dioxide (22-30) mmol/L BUN (9-20) mg/dL Creatinine (0.66-1.25) mg/dL Glucose (74-99) mg/dL POC Glucose (mg/dL) 111 H (70-110) mg/dL Calcium (8.4-10.2) mg/dL
[2024-12-14] MEDS: CEFEPIME 1 GM in SODIUM CHLORIDE 0.9% 50 ML IVPB SCH (15:43)
[2024-12-14 17:28] LABS: Glucose,Whole Blood 125 mg/dL (70-110)
--- NOTE | 2024-12-14 21:24 | PN ---
PROGRESS NOTE SUBJECTIVE: Yaw is an 84-year-old gentleman who is in the ICU with vent-requiring respiratory failure and end-stage renal disease, on hemodialysis that we are involved in the care of for persistent atrial fibrillation with poorly controlled ventricular rate. The patient was on IV heparin that was stopped because of bleeding at the central line site, but the patient had remained stable. I am going to resume anticoagulant in the form of Eliquis 2.5 b.i.d. He used to be on Xarelto at home. PHYSICAL EXAMINATION: VITAL SIGNS: This morning, he is in atrial fibrillation with heart rates in the 90 to 100 beats per minute, blood pressure is 110/50, respiratory rate is 18. CHEST: Reveals diminished air entry with occasional rhonchi. HEART: Reveals first and second heart sounds. No gallop. No murmur. ABDOMEN: Soft. EXTREMITIES: Did not reveal any edema. Peripheral pulses are felt. LABS: Show that the white cell count is 21, hemoglobin is 10, platelet count is 92. Potassium is 5.4, BUN is 70, creatinine is 3.2, and sodium is 127. ASSESSMENT: 1. Persistent atrial fibrillation with poorly controlled ventricular rate. 2. Vent-requiring respiratory failure. 3. End-stage renal disease, on hemodialysis. PLAN: We will start the patient on Eliquis. Continue rest of his medications. We will continue with the amiodarone mainly to control his heart rate. MMODL / IJN: [id number] /
[2024-12-14 23:47] LABS: Glucose,Whole Blood 131 mg/dL (70-110)
[2024-12-15 04:40] LABS: Basophils % (A) 0 %; Eosinophils # (A) 0.1 k/uL (0-0.7); Eosinophils % (A) 0 %; HCT 30.2 % (39.0-53.0); HGB 10.1 gm/dL (13.0-17.5); Lymphocytes # (A) 0.1 k/uL (1.0-4.8); Lymphocytes % (A) 1 %; MCH 28.6 pg (25.0-35.0); MCHC 33.4 g/dL (31.0-37.0); MCV 85.7 fL (80.0-100.0); Mean Platelet Volume 10.2; Monocytes # (A) 0.3 k/uL (0-1.0); Monocytes % (A) 1 %; Neutrophils # (A) 18.2 k/uL (1.3-7.7); Neutrophils % (A) 97 %; RBC 3.52 m/uL (4.30-5.90); WBC 18.7 k/uL (3.8-10.6)
[2024-12-15 04:52] LABS: Platelet Count 87 k/uL (150-450)
[2024-12-15 04:55] LABS: ALT 62 U/L (4-49); AST 50 U/L (17-59); African American GFR (CKD) 22 (>60 ml/min/1.73 sqM); Albumin 2.3 g/dL (3.5-5.0); Alkaline Phosphatase 82 U/L (38-126); Anion Gap 11 mmol/L; Blood Urea Nitrogen 73 mg/dL (9-20); Calcium 7.6 mg/dL (8.4-10.2); Carbon Dioxide 21 mmol/L (22-30); Chloride 93 mmol/L (98-107); Glucose 126 mg/dL (74-99); Non-African American GFR(CKD) 19 (>60 ml/min/1.73 sqM); Potassium 5.1 mmol/L (3.5-5.1); Sodium 125 mmol/L (137-145); Total Bilirubin 0.5 mg/dL (0.2-1.3); Total Protein 4.5 g/dL (6.3-8.2)
[2024-12-15 06:23] LABS: ABG Base Excess -3.3 mmol/L; ABG HCO3 23 mmol/L (21-25); ABG Oxygen Saturation 89.5 % (94-97); ABG PCO2 43 mmHg (35-45); ABG PH 7.33 (7.35-7.45); ABG PO2 61 mmHg (83-108); ABG TCO2 24 mmol/L (19-24); Allen Test Performed? Yes
--- NOTE | 2024-12-15 06:54 | XR ---
EXAMINATION TYPE: XR chest 1V portable DATE OF EXAM: 12/15/2024 COMPARISON: 12/14/2024 CLINICAL INDICATION: Male, 84 years old with history of Pt. intubated; TECHNIQUE: Single frontal view of the chest is obtained. FINDINGS: ET tube is 4.1 cm above the landen. There is an NG tube within the stomach. There is stable small bilateral pleural effusions and pulmonary vascular congestion and possibly mild interstitial edema. IMPRESSION: 1. ET tube 4.1 cm above the landen. NG tube within the stomach. Left jugular central venous catheter tip in the SVC/RA junction. 2. No change in the acute cardiopulmonary disease as described above. [facility], , 12/15/2024 6:51 AM
--- NOTE | 2024-12-15 09:57 | P.PN ---
Subjective Progress Note Date: 12/14/24 Principal diagnosis: Reason for follow-up is acute influenza A/Pseudomonas pneumonia Patient is a 84-year-old male with a past medical history significant for atrial fibrillation diabetes mellitus DVT hypertension hyperlipidemia recent admission to the hospital diagnosed with MRSA bacteremia source was likely pneumonia, did have a negative LIS presenting back to the hospital for increasing shortness of breath has been diagnosed with sepsis secondary pneumonia also tested positive for influenza A sputum showing Pseudomonas. On today's evaluation that is 12/14/2024, patient did not have any fever and remains to be intubated on the vent patient is hemodynamically stable not requiring any pressor support, the patient event is currently 50% no significant purulent secretions through the ET or in the changes reported by the nursing staff. Patient white count is down to 21.6 creatinine is 3.21 Objective - Vital Signs Vital signs: Vital Signs Temp 98.1 F 12/14/24 08:00 Pulse 98 12/14/24 11:40 Resp 28 H 12/14/24 11:00 BP 131/87 12/14/24 00:45 Pulse Ox 92 L 12/14/24 11:00 FiO2 50 12/14/24 12:00 Intake & Output 12/13/24 12/14/24 12/14/24 18:59 06:59 18:59 Intake Total 1254.842 2249.405 418.016 Output Total 4400 5 10 Balance -2584.822 1478.405 408.016 Weight 127.5 kg 126.5 kg Intake: IV 203 266 92 Cefepime 1 gm In Sodium 50 Chloride 0.9% 50 ml @ 12. 5 mls/hr IVPB Q12H [facility] Rx #:[id number] Pressure Bag 33 36 12 kvo 120 230 80 Intake, IV Titration 807.178 827.405 196.016 Amount Norepinephrine 4 mg In 461.522 392.917 Sodium Chloride 0.9% 250 ml @ 0.03 MCG/KG/MIN 12. 443 mls/hr IV .[id number] [facility] Rx#:[id number] propofoL 1,000 mg In 345.656 434.488 196.016 Empty Bag 1 bag @ 15 MCG/ KG/MIN 9.798 mls/hr IV . [id number] [facility] Rx#:[id number] Tube Feeding 315 300 100 Hemodialysis 400 Other 90 90 30 Output: Urine 0 5 10 Hemodialysis 2400 Hemodialysis Net Amount 1999 Other: Voiding Method Indwelling Catheter Indwelling Catheter Indwelling Catheter # Voids 0 0 ABP, PAP, CO, CI - Last Documented Arterial Blood Pressure 104/51 - Exam GENERAL DESCRIPTION: An elderly male intubated on the vent RESPIRATORY SYSTEM: Unlabored breathing , decreased breath sounds at bases HEART: S1 S2 regular rate and rhythm , ABDOMEN: Soft , no tenderness EXTREMITIES: Mild swelling to the leg no redness - Labs CBC & Chem 7: 12/15/24 04:28 12/15/24 04:28 Labs: Abnormal Lab Results - Last 24 Hours (Table) 12/13/24 12/13/24 12/14/24 Range/Units 17:32 23:51 04:30 WBC 21.6 H (3.8-10.6) k/uL RBC 3.69 L (4.30-5.90) m/uL Hgb 10.3 L (13.0-17.5) gm/dL Hct 32.1 L (39.0-53.0) % RDW 15.7 H (11.5-15.5) % Plt Count 92 L (150-450) k/uL Neutrophils # 20.9 H (1.3-7.7) k/uL Lymphocytes # 0.2 L (1.0-4.8) k/uL ABG pH (7.35-7.45) ABG pCO2 (35-45) mmHg ABG pO2 (83-108) mmHg ABG O2 Saturation (94-97) % Hemoglobin (13.0-17.5) gm/dL Sodium (137-145) mmol/L Potassium (3.5-5.1) mmol/L Chloride (98-107) mmol/L Carbon Dioxide (22-30) mmol/L BUN (9-20) mg/dL Creatinine (0.66-1.25) mg/dL Glucose (74-99) mg/dL POC Glucose (mg/dL) 149 H 126 H (70-110) mg/dL Calcium (8.4-10.2) mg/dL 12/14/24 12/14/24 12/14/24 Range/Units 04:30 05:22 06:20 WBC (3.8-10.6) k/uL RBC (4.30-5.90) m/uL Hgb (13.0-17.5) gm/dL Hct (39.0-53.0) % RDW (11.5-15.5) % Plt Count (150-450) k/uL Neutrophils # (1.3-7.7) k/uL Lymphocytes # (1.0-4.8) k/uL ABG pH 7.29 L (7.35-7.45) ABG pCO2 47 H (35-45) mmHg ABG pO2 75 L (83-108) mmHg ABG O2 Saturation 93.9 L (94-97) % Hemoglobin 10.2 L (13.0-17.5) gm/dL Sodium 127 L (137-145) mmol/L Potassium 5.4 H (3.5-5.1) mmol/L Chloride 96 L (98-107) mmol/L Carbon Dioxide 20 L (22-30) mmol/L BUN 70 H (9-20) mg/dL Creatinine 3.21 H (0.66-1.25) mg/dL Glucose 127 H (74-99) mg/dL POC Glucose (mg/dL) 133 H (70-110) mg/dL Calcium 7.9 L (8.4-10.2) mg/dL 12/14/24 Range/Units 11:34 WBC (3.8-10.6) k/uL RBC (4.30-5.90) m/uL Hgb (13.0-17.5) gm/dL Hct (39.0-53.0) % RDW (11.5-15.5) % Plt Count (150-450) k/uL Neutrophils # (1.3-7.7) k/uL Lymphocytes # (1.0-4.8) k/uL ABG pH (7.35-7.45) ABG pCO2 (35-45) mmHg ABG pO2 (83-108) mmHg ABG O2 Saturation (94-97) % Hemoglobin (13.0-17.5) gm/dL Sodium (137-145) mmol/L Potassium (3.5-5.1) mmol/L Chloride (98-107) mmol/L Carbon Dioxide (22-30) mmol/L BUN (9-20) mg/dL Creatinine (0.66-1.25) mg/dL Glucose (74-99) mg/dL POC Glucose (mg/dL) 111 H (70-110) mg/dL Calcium (8.4-10.2) mg/dL Assessment and Plan (1) Influenza A Current Visit: Yes Status: Acute Code(s): J10.1 - FLU DUE TO OTH IDENT INFLUENZA VIRUS W OTH RESP MANIFEST SNOMED Code(s): 389845653 (2) Leukocytosis Current Visit: Yes Status: Acute Code(s): D72.829 - ELEVATED WHITE BLOOD CELL COUNT, UNSPECIFIED SNOMED Code(s): 459237512 (3) Pneumonia Current Visit: No Status: Acute Code(s): J18.9 - PNEUMONIA, UNSPECIFIED ORGANISM SNOMED Code(s): 811799100 (4) Sepsis Current Visit: No Status: Acute Code(s): A41.9 - SEPSIS, UNSPECIFIED ORGANISM SNOMED Code(s): 95413343 Plan: 1patient presented to hospital with sepsis in this patient who did have hypotension requiring pressor support elevated white count source is multifactorial possible component of pneumonia with the sputum not showing Pseudomonas aeruginosa and recently did have a history of MRSA pneumonia for the patient has received adequate vancomycin which has been discontinued. 2 Patient with acute influenza A, patient is covered with Tamiflu to finish a 5-day course of therapy 3-patient did have worsening of his kidney function and has been started on hemodialysis, nephrology is following the patient 4- patient is afebrile patient white count trending down to 21,000 .y, patient blood culture have been negative sputum is showing Pseudomonas aeruginosa 4patient will be continued on cefepime and will monitor clinical course closely Dictation was produced using [employer] dictation software. please excuse any grammatical, word or spelling errors. Time with Patient: Less than 30
--- NOTE | 2024-12-15 10:25 | P.PN ---
Subjective Progress Note Date: 12/15/24 Patient is seen for follow-up for acute kidney injury. Patient remains on the vent. FiO2 decreased to 50%. Maintained on Levophed which requirements decreasing overnight. Started hemodialysis on 12/11/24 for worsening oliguric acute kidney injury and volume overload. Tolerated SLED yesterday. Minimal urine output still. Patient is on the vent. Examination of the heart S1 and S2 Examination of the lungs bilateral breath sounds are heard Abdomen is soft nontender Examination of lower extremities shows edema 1+ bilaterally. Objective - Vital Signs Vital signs: Vital Signs Temp 97.6 F 12/15/24 04:00 Pulse 84 12/15/24 08:23 Resp 28 H 12/15/24 07:00 BP 120/60 12/14/24 18:08 Pulse Ox 90 L 12/15/24 07:00 FiO2 50 12/15/24 08:04 Intake & Output 12/14/24 12/15/24 12/15/24 18:59 06:59 18:59 Intake Total 4390.022 1012.126 48 Output Total 2920 10 0 Balance 9234.145 0652.126 48 Weight 126.2 kg Intake: IV 326 276 23 Cefepime 1 gm In Sodium 50 Chloride 0.9% 50 ml @ 12. 5 mls/hr IVPB Q24HR [facility] Rx#:[id number] Pressure Bag 36 36 3 kvo 240 240 20 Intake, IV Titration 774.022 346.126 Amount Norepinephrine 4 mg In 358.313 176.301 Sodium Chloride 0.9% 250 ml @ 0.03 MCG/KG/MIN 12. 443 mls/hr IV .[id number] [facility] Rx#:[id number] propofoL 1,000 mg In 415.709 169.825 Empty Bag 1 bag @ 15 MCG/ KG/MIN 9.798 mls/hr IV . [id number] [facility] Rx#:[id number] Tube Feeding 300 300 25 Hemodialysis 2900 Other 90 90 Output: Urine 20 10 0 Hemodialysis 400 Hemodialysis Net Amount 2500 Other: Voiding Method Indwelling Catheter Indwelling Catheter ABP, PAP, CO, CI - Last Documented Arterial Blood Pressure 138/60 - Labs CBC & Chem 7: 12/15/24 04:28 12/15/24 04:28 Labs: Abnormal Lab Results - Last 24 Hours (Table) 12/14/24 12/14/24 12/14/24 Range/Units 11:34 17:27 23:46 WBC (3.8-10.6) k/uL RBC (4.30-5.90) m/uL Hgb (13.0-17.5) gm/dL Hct (39.0-53.0) % RDW (11.5-15.5) % Plt Count (150-450) k/uL Neutrophils # (1.3-7.7) k/uL Lymphocytes # (1.0-4.8) k/uL ABG pH (7.35-7.45) ABG pO2 (83-108) mmHg ABG O2 Saturation (94-97) % Hemoglobin (13.0-17.5) gm/dL Sodium (137-145) mmol/L Chloride (98-107) mmol/L Carbon Dioxide (22-30) mmol/L BUN (9-20) mg/dL Creatinine (0.66-1.25) mg/dL Glucose (74-99) mg/dL POC Glucose (mg/dL) 111 H 125 H 131 H (70-110) mg/dL Calcium (8.4-10.2) mg/dL ALT (4-49) U/L Total Protein (6.3-8.2) g/dL Albumin (3.5-5.0) g/dL 12/15/24 12/15/24 12/15/24 Range/Units 04:28 04:28 06:19 WBC 18.7 H (3.8-10.6) k/uL RBC 3.52 L (4.30-5.90) m/uL Hgb 10.1 L (13.0-17.5) gm/dL Hct 30.2 L (39.0-53.0) % RDW 16.0 H (11.5-15.5) % Plt Count 87 L (150-450) k/uL Neutrophils # 18.2 H (1.3-7.7) k/uL Lymphocytes # 0.1 L (1.0-4.8) k/uL ABG pH 7.33 L (7.35-7.45) ABG pO2 61 L (83-108) mmHg ABG O2 Saturation 89.5 L (94-97) % Hemoglobin 9.7 L (13.0-17.5) gm/dL Sodium 125 L (137-145) mmol/L Chloride 93 L (98-107) mmol/L Carbon Dioxide 21 L (22-30) mmol/L BUN 73 H (9-20) mg/dL Creatinine 2.98 H (0.66-1.25) mg/dL Glucose 126 H (74-99) mg/dL POC Glucose (mg/dL) (70-110) mg/dL Calcium 7.6 L (8.4-10.2) mg/dL ALT 62 H (4-49) U/L Total Protein 4.5 L (6.3-8.2) g/dL Albumin 2.3 L (3.5-5.0) g/dL Assessment and Plan Assessment: 1. Acute kidney injury secondary to ATN secondary to septic shock. Baseline creatinine near 1.0 and peaked at 4.3. Oliguric. No hydronephrosis noted on kidney ultrasound. Started hemodialysis on 12/11/24 2. Acute hypoxic respiratory failure secondary to pneumonia and component of CHF 3. Septic shock. Patient with influenza A pneumonia and sputum culture positive for Pseudomonas. 4. Metabolic acidosis secondary to acute kidney injury. Better with dialysis. 5. A-fib with RVR maintained on oral amiodarone. 6. Cardiomyopathy with ejection fraction of 40 to 45%. 7. Fluid overload. Plan: Hemodialysis planned again tomorrow. Pressor requirement improving. Still PEEP 10
--- NOTE | 2024-12-15 11:09 | P.PN ---
Subjective Progress Note Date: 12/15/24 This is an 84-year-old white male familiar to my service, patient was recently seen in the hospital for MRSA bacteremia, workup for endocarditis and transesophageal echocardiogram was unremarkable and there was no evidence of vegetations. Patient was discharged to halfway on vancomycin and he had a PICC line in place. His transesophageal echo on his last admission showed ejection fraction of 45%, patient is also known to have history of paroxysmal atrial fibrillation as well as history of hereditary factor VIII deficiency. In addition to all of this the patient is known to have history of mild COPD, hiatal hernia, hypertension, and yesterday halfway was concerned about the patient having episodes of shortness of breath. Patient received diuretics, received bronchodilators, this was done upon arrival to the ER, patient developed worsening atrial fibrillation with RVR. I was notified about this patient from the ER, initially recommended amiodarone and amiodarone drip because of his atrial fibrillation with RVR, cardiology was consulted, his oxygenation while in the ER was getting worse in spite of diuretics his chest x- ray did not show any evidence of significant pulmonary edema, patient was intubated shortly after upon my recommendation, and arrangements made for the patient to transfer to the ICU late at night. In the meantime patient was noted to have leukocytosis, WBC count as high as 43.6, hemoglobin was 12.2. Basic metabolic profile was normal except for slightly low bicarb of 18 BUN 35 creatinine 1.28. Chest x-ray this morning showed normal pulmonary vasculature there was no clear-cut evidence of pneumonia or any pleural effusion, no evidence of congestive heart failure, patient did receive multiple fluid boluses yesterday for low blood pressure after intubation. Today the patient is on assist-control rate of 24 tidal volume 500 FiO2 90% and PEEP of 8 which I increased to 10 ABG remains marginal with a pO2 of 85 pCO2 44 pH of 7.31 patient has been on Xarelto for history of chronic atrial fibrillation presently I would recommend that we place the patient on heparin, patient is still receiving amiodarone at 0.5 mg/min he is also on norepinephrine at 0.06 mcg/kg/min propofol at 50 mcg/kg/min IV fluid 100 cc/h 0.9 normal saline. Went ahead and e stablish a right radial arterial line, patient does have a PICC line in place hence no need to change PICC line unless the patient comes back with positive blood cultures. In the meantime we are recommending cefepime and vancomycin. 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 Knowing this, possibility of pulmonary embolism is likely and I am recommending that we heparinized the patient for now, once his renal functioning improved may consider sending him down for a CT angiogram of the chest. Seen today on 12/08/2024, patient remains in the ICU, intubated mechanically ventilated, he is on assist-control rate of 24 tidal volume 500 FiO2 90% PEEP of 12 ABG showed a pO2 of 125 pCO2 50 pH of 7.25 hence tidal volume was increased to 550, FiO2 was cut down to 60%, kept the PEEP at 12. Chest x-ray is showing evidence of worsening interstitial edema. Patient is on diuretics Lasix 80 mg IV push twice daily. Patient is still requiring pressors he is on norepinephrine at 0.06 mcg/kg/min propofol at 30 mcg/kg/min IV fluid was 100 cc/h, however considering his chest x-ray I recommended we cut it down to KVO. Patient remains on amiodarone at 0.5 mg/min antibiotics schaefer he is on cefepime and vancomycin patient had recent MRSA bacteremia he is also on Tamiflu for acute influenza. For his DVT and possible pulmonary embolism patient remains on heparin as per protocol. Patient is sedated, still hemodynamically unstable requiring norepinephrine, patient is receiving GI DVT prophylaxis is also on enteral feeding for nutritional support. Blood cultures are still pending no plans to address weaning today since the patient is still requiring relatively high FiO2 and high PEEP. Renal functioning seems to be a bit worse, being addressed by nephrology on the case. Patient may have developed acute kidney injury, likely cardiorenal in nature. And could be related to his low blood pressure on presentation /acute tubular necrosis. 12/09/2024: Patient remains in the ICU, intubated mechanically ventilated, he is on assist-control rate of rr 24 tidal volume 550, peep at 12, fio2 60. ABG showed pO2 of 72, pCO2 43, and pH of 7.32. Overnight heart rate was in the 140s, Dr. Taylor was called and he gave Lopressor PO. CXR showing evidence of stable interstitial pattern with small effusion and basilar subsegmental consolidation. Patient had lower extremity Doppler on 12/07 showing chronic nonoccluding right lower extremity DVT for which she remains on heparin as per protocol. Patient is sedated, still hemodynamically unstable requiring norepinephrine, patient is receiving GI DVT prophylaxis and is also on enteral feeding 25 at goal. Fluid balance is approximately positive 1 L in the last 24 hours. Levo at 7.63 mg/min, heprin at 10, amio at .5, prop 50. Lasix at 80 IV BID. Preliminary Gram stain showed Pseudomonas and blood cultures have been negative through 48 hours. . Creatinine today 2.58 which is increased from yesterday of 1.89. Nephrology is following, they added 2 amp sodium bicarb IV push yesterday and stopped Cozaar, Aldactone, and Farxiga. Nephrology considers DEENA secondary to ATN secondary to septic shock as patient's baseline creatinine is usually near 1. Progress note dated December 10, 2024. 84-year-old male seen today in room 254. He remains on the mechanical ventilator. He is on volume assist-control mode, rate 24, tidal volume 450, FiO2 60%, PEEP of 12. Blood gases show a pO2 of 75, pCO2 of 53, pH of 7.23. The patient is getting saline at 20 cc an hour, propofol at 20 mcg/kg/min, Levophed at 2 mcg/min. In addition, the patient is getting heparin via weight- based protocol, and vital AF at 25 cc an hour which is goal. The patient cont inues on Tamiflu, and cefepime. His peak airway pressures 33, with a plateau pressure of 22. Current labs include a white count of 27.5, hemoglobin 11.6, hematocrit 36.2, and a platelet count of 139,000. PTT is 46.6. Sodium 134, potassium 4.8, chlorides 101, CO2 21, BUN 68, and creatinine 3.51. Glucose is 136. Calcium is 8. Sputum from December 06 is positive for Pseudomonas aeruginosa. Chest x-ray earlier from this morning, shows a stable interstitial pattern with small effusion. Chest x-ray after central line insertion shows a properly placed central line, with the tip of the catheter at the junction of superior vena cava and right atrium. Progress note dated December 11, 2024. 84-year-old male seen today in room 254. He remains on the mechanical ventilator. He is on volume assist-control mode, rate 28, tidal volume of 450, FiO2 60%, and PEEP of 12. His peak airway pressure is 29, with a plateau pressure of 22. Blood gases show pH 7.2, pCO2 51, pO2 96. The patient is gett ing NS at 20 cc/h and propofol at 40 mcg/kg/min, no levo since 4 AM this morning. In addition the patient is off heparin currently due to bleeding around central line that was placed yesterday.Vital AF at 25 cc an hour and a goal of 35. The patient continues on cefepime (day 3) and completed Tamiflu. Current labs include WBC of 18.6, hemoglobin of 10.8, hematocrit of 34.7, and platelet count of 115,000. Sodium is 131, potassium 5.5, chloride 100, BUN 89, and creatinine 4.26. Glucose is 138. Calcium 7.9. Urine output remains poor, 690 mL over the last 24 hours. Chest x-ray from earlier from this morning shows blunting of the costophrenic angle, cardiomegaly, pulmonary vascular congestion and bilateral pleural effusions. Patient getting dialysis catheter placed this morning. Progress note dated December 12, 2024. 84-year-old male seen today in room 254. No significant overnight events, yesterday had dialysis catheter placed and received first round of dialysis. He remains on the mechanical ventilator. He is on volume assist-control mode,rr 28, tv 450, fio2 60%, and peep 12. The delta between the peak airway pressure and plateau pressure was 11. Blood gases show pO2 of 74, pCO2 56, and pH of 7.21 the patient is getting NS at 10ml/hr and propofol at 60. Patient is on levo at 0.05. Currently heparin drip on hold. Vital AF at 35. The patient continues on cefepime (day 4) and completed Tamiflu already. Current labs include WBC of 25.8, hemoglobin of 11, platelet count of 122,000, sodium 128, potassium 6, bicarb 20, BUN 81, creatinine 4.31, glucose 123, and calcium 7.7. They took off 1.5 L during hemodialysis yesterday. Chest x-ray shows stable/potentially slightly worsening right basilar airspace opacities.` Progress note dated December 13, 2024. 84-year-old male seen today in room 254. No significant overnight events, yesterday received another round of dialysis. Plan is to receive dialysis again today, potentially sled. He remains on mechanical ventilator on volume assist- control mode with a respiratory rate of 28, tidal volume of 450, FiO2 60%, and PEEP of 12. The delta between the peak airway pressure and plateau pressure was 10. Patient noted to have significant cuff leak. Blood gases show pO2 106, pCO2 48, and pH 7.25. The patient is getting NS@10 mL/h and propofol at 60. Patient is on levo at 11.4 mcg/min. Patient remains off heparin for 2 days now after having bleeding from central line. Getting vital AF at 35 which is goal. On amiodarone 200 twice daily and Lopressor 25 3 times daily for A-fib. Patient continues on cefepime (day 5) and has already completed 5-day course Tamiflu. Current labs include WBC of 26.6, hemoglobin of 10.6, platelet count 107,000, sodium 127, potassium 5.9, bicarb 19, BUN 83, creatinine 3.94, calcium 7.8, and albumin 2.5. They took off 1.5 L during hemodialysis yesterday. Chest x-ray shows improvement from prior in the right lower lobe, stable left pleural effusion still noted. Progress note dated December 14, 2024. 84-year-old male seen today in room 254. No significant overnight events, yesterday received sled and took off 2.4L. Patient remains on mechanical ventilator on volume assist-control mode with respiratory rate of 28, tidal volume 450, FiO2 50%, and PEEP of 10. The delta between the peak airway pressure and plateau pressure was 8. Blood gases show pCO2 75, pCO2 47, and pH 7.29. The patient is getting NS@10 mL/h and propofol at 60 mcg/kg/min. Patient was on levo at 9 mcg/min. For DVT prophylaxis patient is on Lovenox SQ 40 daily. Getting vital AF at 25 which is goal. On amiodarone 200 mg twice daily and Lopressor 25 mg 3 times daily for A-fib. Patient continues on cefepime (day 6). Current labs include WBC 21.6, hemoglobin 10.3, platelet count 90,000, sodium 127, potassium 5.4, BUN 70, creatinine 3.21, calcium 7.9. They took off 2.4 L yesterday during dialysis. Chest x-ray shows no significant interval change in the pulmonary vascular congestion and bilateral small pleural effusions. The patient is seen today December 15, 2024 in follow-up in the intensive care unit. He remains intubated on mechanical ventilator. Currently assist-control mode with a respiratory rate of 28, tidal line 450, FiO2 50% and a PEEP of 10. Morning blood gases revealed a PaO2 of 61, pCO2 43 and a pH of 7.33. Chest x- ray continues to show a right lower lobe infiltrate. He is having episodes of desaturations while being repositioned by staff. He is sedated on propofol at 40 mcg/kg/min. Requiring norepinephrine at 2.5 mcg/min. Normal saline at 20 mL /h. He is being nourished with vital AF at 25 mL/h which is goal. Plan is for hemodialysis tomorrow. He remains on cefepime for his Pseudomonas aeruginosa positive sputum. Blood cultures revealed no growth. White count 18.7. Hemoglobin 10.1. Platelets 87,000. Sodium 125. Potassium 5.1. Bicarb 21. BUN 73. Creatinine 2.98. Glucose 126. He remains on DuoNeb inhalations, Solu- Medrol, Pulmicort inhalations. Anticoagulated with Eliquis. Objective - Vital Signs Vital signs: Vital Signs Temp 96.7 F L 12/15/24 08:00 Pulse 87 12/15/24 10:30 Resp 28 H 12/15/24 10:30 BP 120/60 12/14/24 18:08 Pulse Ox 94 L 12/15/24 10:30 FiO2 50 12/15/24 08:04 Intake & Output 12/14/24 12/15/24 12/15/24 18:59 06:59 18:59 Intake Total 4390.022 1112.126 222 Output Total 2920 10 0 Balance 6331.302 9921.126 222 Weight 126.2 kg Intake: IV 326 276 92 Cefepime 1 gm In Sodium 50 Chloride 0.9% 50 ml @ 12. 5 mls/hr IVPB Q24HR [facility] Rx#:[id number] Pressure Bag 36 36 12 kvo 240 240 80 Intake, IV Titration 774.022 446.126 Amount Norepinephrine 4 mg In 358.313 176.301 Sodium Chloride 0.9% 250 ml @ 0.03 MCG/KG/MIN 12. 443 mls/hr IV .[id number] [facility] Rx#:[id number] propofoL 1,000 mg In 415.709 269.825 Empty Bag 1 bag @ 15 MCG/ KG/MIN 9.798 mls/hr IV . [id number] [facility] Rx#:[id number] Tube Feeding 300 300 100 Hemodialysis 2900 Other 90 90 30 Output: Urine 20 10 0 Hemodialysis 400 Hemodialysis Net Amount 2500 Other: Voiding Method Indwelling Catheter Indwelling Catheter Indwelling Catheter ABP, PAP, CO, CI - Last Documented Arterial Blood Pressure 133/58 - Exam GENERAL EXAM: Intubated, sedated 84-year-old male patient, in no apparent distress. HEAD: Normocephalic. EYES: Sluggish reaction of pupils, equal size. NOSE: Clear with pink turbinates. THROAT: Oral endotracheal and gastric tube secured in place, no erythema or exudates. NECK: Left IJ triple-lumen catheter in place. No masses, no JVD. CHEST: No chest wall deformity. LUNGS: Equal air entry with bilateral scattered rhonchi. CVS: S1 and S2 normal with no audible murmur, regular rhythm. ABDOMEN: No hepatosplenomegaly, normal bowel sounds, no guarding or rigidity. SPINE: No scoliosis or deformity SKIN: No rashes CENTRAL NERVOUS SYSTEM: No focal deficits, tone is normal in all 4 extremities. EXTREMITIES: Right radial arterial line in place. There is 1+ peripheral edema. No clubbing, no cyanosis. Peripheral pulses are intact. - Labs CBC & Chem 7: 12/15/24 04:28 12/15/24 04:28 Labs: Abnormal Lab Results - Last 24 Hours (Table) 12/14/24 12/14/24 12/14/24 Range/Units 11:34 17:27 23:46 WBC (3.8-10.6) k/uL RBC (4.30-5.90) m/uL Hgb (13.0-17.5) gm/dL Hct (39.0-53.0) % RDW (11.5-15.5) % Plt Count (150-450) k/uL Neutrophils # (1.3-7.7) k/uL Lymphocytes # (1.0-4.8) k/uL ABG pH (7.35-7.45) ABG pO2 (83-108) mmHg ABG O2 Saturation (94-97) % Hemoglobin (13.0-17.5) gm/dL Sodium (137-145) mmol/L Chloride (98-107) mmol/L Carbon Dioxide (22-30) mmol/L BUN (9-20) mg/dL Creatinine (0.66-1.25) mg/dL Glucose (74-99) mg/dL POC Glucose (mg/dL) 111 H 125 H 131 H (70-110) mg/dL Calcium (8.4-10.2) mg/dL ALT (4-49) U/L Total Protein (6.3-8.2) g/dL Albumin (3.5-5.0) g/dL 12/15/24 12/15/24 12/15/24 Range/Units 04:28 04:28 06:19 WBC 18.7 H (3.8-10.6) k/uL RBC 3.52 L (4.30-5.90) m/uL Hgb 10.1 L (13.0-17.5) gm/dL Hct 30.2 L (39.0-53.0) % RDW 16.0 H (11.5-15.5) % Plt Count 87 L (150-450) k/uL Neutrophils # 18.2 H (1.3-7.7) k/uL Lymphocytes # 0.1 L (1.0-4.8) k/uL ABG pH 7.33 L (7.35-7.45) ABG pO2 61 L (83-108) mmHg ABG O2 Saturation 89.5 L (94-97) % Hemoglobin 9.7 L (13.0-17.5) gm/dL Sodium 125 L (137-145) mmol/L Chloride 93 L (98-107) mmol/L Carbon Dioxide 21 L (22-30) mmol/L BUN 73 H (9-20) mg/dL Creatinine 2.98 H (0.66-1.25) mg/dL Glucose 126 H (74-99) mg/dL POC Glucose (mg/dL) (70-110) mg/dL Calcium 7.6 L (8.4-10.2) mg/dL ALT 62 H (4-49) U/L Total Protein 4.5 L (6.3-8.2) g/dL Albumin 2.3 L (3.5-5.0) g/dL Assessment and Plan Assessment: Acute hypoxemic respiratory failure secondary to suspected healthcare acquired pneumonia, sputum culture positive for Pseudomonas aeruginosa currently ma intained on mechanical ventilation, intubated on 12/06/2024. Remains on cefepime Persistent sepsis and septic shock, secondary to MRSA bacteremia persistent positive blood cultures 3 11/25/2024. Follow-up blood cultures revealed no growth Recent discharge on 12/04/2024 to an ECF with PICC line and vancomycin Moderate LV dysfunction, with diffuse interstitial edema Acute kidney injury secondary to hypotension, and possible acute tubular necrosis History of atrial fibrillation with RVR, anticoagulated with Eliquis Acute on chronic systolic congestive heart failure COPD exacerbation History of BPH History of factor VIII deficiency Possible pulmonary embolism History of DVT Benign essential hypertension Acute influenza A infection History of previous right total hip arthroplasty Plan: The patient was seen and evaluated Chest x-ray, ABGs, labs and medications reviewed Completing a course of cefepime today Continue bronchodilators, steroids Anticoagulated with Eliquis Being nourished with vital AF at goal Will plan for daily interruption of sedation Hemodialysis tomorrow being followed by nephrology Will need to be considered for tracheostomy and PEG tube placement I have personally seen and examined the patient, performed the documentation and the assessment and plan as written. Number of minutes spent on the visit: 15 Dictation was produced using [employer] dictation software. Please excuse any grammatical, word or spelling errors. Time with Patient: Greater than 30
[2024-12-15 11:31] LABS: Glucose,Whole Blood 135 mg/dL (70-110)
--- NOTE | 2024-12-15 14:03 | P.PN ---
Subjective Progress Note Date: 12/15/24 Interval History: This is a 84-year-old male with past medical history of hypertension, paroxysmal atrial fibrillation on Xarelto, benign prostatic hypertrophy, hiatal hernia, hereditary factor VIII deficiency, hyperlipidemia, mild intermittent asthma, mild COPD, patient was recently admitted to [facility] after he underwent right total hip arthroplasty that was done by Dr. Thakkar and he has been at [facility] for physical therapy rehabilitation, patient was recently hospitalized at [facility] from November 25 of December 04 after he was admitted for what appears to be right lower lobe pneumonia appears to be MRSA pneumonia, initially was started on vancomycin as well as cefepime was seen in consultation by pulm medicine as well as cardiology, he had a significant MRSA bacteremia, that responded very well to vancomycin, patient ended up going for transesophageal echocardiogram that did not show evidence of any vegetation, it did show evidence of 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%, patient was sent to [facility] December 04, 2024 while he was there he was requiring about 5 L nasal cannula of oxygen, I received a phone call from the nursing staff stating that the patient is in acute respiratory distress today, he was given 60 mg IM of Lasix as well as 80 mg IM of Solu-Medrol with nebulizer treatment along with Pulmicort and DuoNeb, without any relief, he was placed on nonrebreather, and patient was sent to the ER for evaluation, he was found to have a significant leukocytosis with a white count of 36,000, his swab came back positive for influenza A, and chest x-ray showed evidence of cardiomegaly as well as basilar pneumonia patient was started back on his vancomycin as well as cefepime he was started on Tamiflu, he was started on Lasix 80 mg IV push every 12 hours, along with Solu-Medrol 60 mg IV push every 6 hours, DuoNeb nebulizatio n 4 times every day Pulmicort 1 mg nebulization twice every day he is currently on BiPAP, pulmonary consultation as well as cardiology consultation. Sputum culture will be obtained as well as blood cultures. 12/07: While the patient yesterday in the emergency department he went into severe respiratory distress while he was on the BiPAP, he did receive 1 dose of Lasix 80 mg IV push, along with Solu-Medrol 60 mg IV push along with nebulized treatment in the form of DuoNeb as well as Pulmicort, without relief, at that time the decision was made for the patient to be intubated and transferred to the intensive care unit from the emergency department, patient is currently sedated on the ventilator, he is currently on amiodarone drip, as well as propofol drip, he is on 90% FiO2, with a PEEP of 5, pulmonary/critical care is following the patient very closely, cardiology is following as well, patient was started on IV antibiotic in the form of vancomycin as well as cefepime, he was started on Tamiflu as well due to influenza A, his white count initially was elevated at 43,000 down to 38,000, patient appears quite sick at this point in time, his prognosis continue be guarded, will continue with aggressive treatment plan for now, we will follow-up with the patient very closely. 12/08: Patient is laying down in bed he continues to be on the ventilator, currently FiO2 of 60%, PEEP of 12, tidal volume of 550, he continues to have a significant edema both upper and lower extremities, he is not getting any more IV fluid, will wean down his Levophed drip, continue IV antibiotic in the form of vancomycin as well as cefepime, sputum cultures growing Pseudomonas aeruginosa, currently on cefepime as well as vancomycin with pharmacy to dose to be controlled, continue also with Tamiflu for influenza A, patient was seen earlier by nephrology for acute kidney injury due to acute tubular necrosis and vasomotor nephropathy due to septic shock, continue current Lasix 80 mg IV push every 12 hours, monitor the patient input and output and daily weight, ultrasound of the kidney was obtained. 12/09: Patient is still intubated on the ventilator, he is currently on AC mode with a tidal volume of 550 respiration of 24, FiO2 of 60%, PEEP of 12, x-ray still showing evidence of pulmonary edema, he has been getting Lasix 80 mg IV push every 12 hours, he has an acute kidney injury that is getting worse today, his BUN and creatinine is elevated, nephrology is following, patient continues to be on Levophed, he has been on cefepime we will monitor the patient very closely, continue current treatment plan, will follow-up with the patient very closely, patient has been seen by nephrology, cardiology, as well as by pulmonary medicine and critical care, patient also was seen in consultation by infectious disease at this point in time, taken off vancomycin and Tamiflu due to acute kidney injury. 12/10: Patient is laying down in bed he continues to be on the ventilator, his current vent setting is FiO2 of 60%, respiratory rate is 24, tidal volume 450, and FiO2 of 60%, PEEP of 12, patient blood gases showed evidence of metabolic and respiratory acidosis with hypoxemia his pO2 is about 72 and pCO2 is 56, patient is getting a central line today, he continues to have worsening kidney function, will continue current treatment plan, continue follow-up with the patient very closely 12/11: Patient is laying down in bed continues to be sedated on the ventilator, worsening renal function his creatinine is up to 4.5, decreased urine output, was on lasix drip without improvement and he was started on HD today for 2 hours , patient continues to be treated with cefepime for Pseudomonas pneumonia, he continued to have a septic shock he is currently on Levophed, he is currently on propofol, his prognosis continues to be guarded, patient has underlying 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%, he continues to have atrial fibrillation for which she has been on amiodarone, patient has been followed by multiple specialties including ICU/pulmonary medicine, cardiology, nephrology, infectious disease, we will continue to follow-up with the patient very closely, he may require to have hemodialysis even for short period of time to improve his kidney function as well as fluid status. 12/12: Patient remains on the ventilator, his current tidal volume is 450 FiO2 of 60%, and a PEEP of 12, he is still requiring quite a bit of sedation he is still requiring Levophed to keep his pressure up, he is getting his edema hemodialysis for the second day today, his blood pressure is marginal, we discussed with the nursing staff increasing his Levophed little bit, but he is still in atrial fibrillation with rapid ventricular response, his urine output is minimal, trying to get another 500 cc out of his body today, chest x-ray still showing evidence of right lower lobe pneumonia, will follow-up with the patient very closely at this point patient prognosis continue to be guarded, I still think th at the patient can turn around, we can continue with the current treatment plan continue with cefepime continue with aggressive pulmonary toileting, continue to follow-up with the patient very closely. 12/13: Patient is laying down in bed he continues to be on the ventilator, with the AC mode, tidal volume of 450, respiratory rate of 28, FiO2 50%, PEEP of 12, chest x-ray continues to show some signs of pneumonia in the right lower lobe, minimal pulmonary vascular congestion as well, he is getting dialysis for the third day in the room, his blood pressure appears to be marginal at this time, hopefully will increase his Levophed little bit for the patient to go for dialysis at this point in time, he continues to improve slowly, he continues to be on Levophed, he continues to be on cefepime, he has been followed by multiple specialty, we will continue with the feeding tube he is currently at 35 mL/h, he seems to be tolerating this very well. 12/14--patient was seen and examined today. Remains on Levophed. Remains intubated and sedated. Underwent hemodialysis today. Vitals reviewed. WBCs 21.6, hemoglobin 10.3, platelet 92. Blood gases showed pH 7.29, pCO2 47, pO2 75. Sodium 127, potassium 5.4, BUN 70, creatinine 3.21. Infectious disease, nephrology, ICU following. 12/15--patient was seen and examined today. Family at bedside. Levophed weaned off. Patient remains intubated and sedated. Nephrology infectious disease and ICU following. Currently on cefepime. Chest x-ray showed right lower lobe infiltrate. Patient on tube feeds. Nephrology planning for hemodialysis tomorrow. Cultures remain negative. Labs reviewed. Anticoagulated with Eliquis. Assessment and plan: 1. Acute vent dependent hypoxemic respiratory failure due to acute systolic heart failure as well as acute left lower lobe Pseudomonas pneumonia and influenza A. Continue Solu-Medrol 60 mg IV push every 12 hours, continue DuoNeb 3 mL nebulization every 4 hours, continue Pulmicort 1 mg of Lasix twice every day, continue cefepime 1 g IV piggyback every 12 hours, monitor the patient symptoms very closely, patient is still requiring FiO2 of 50% at this point in time. 2. Pseudomonas pneumonia with septic shock . Try to wean Levophed off continue IV antibiotic in the form of cefepime 1 g piggyback every 12 hours, continue oxygen support, try to wean FiO2 down, continue to monitor the patient very closely. Infectious disease consultation from Dr. Agosto is appreciated. Monitor the patient symptoms very closely, blood cultures so far no growth after 72 hours. 3. Atrial fibrillation with rapid ventricular response. Discontinue amiodarone drip, continue patient on amiodarone 200 mg orally twice every day, continue on metoprolol 25 mg orally twice every day, monitor the patient symptoms very closely. Cristopher. 4. 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 Patient is currently on Levophed drip 5. Acute kidney injury due to acute tubular necrosis with vasomotor nephropathy due to septic shock. Patient and he is getting hemodialysis today, his blood pressure is marginal his Levophed was increased. 6. Anion gap antibiotic acidosis due to acute kidney injury monitor the patient symptoms very closely, continue with hemodialysis for now. 7. COPD exacerbation. Continue Solu-Medrol 60 mg IV push every 12 hours, continue Pulmicort 1 mg nebulization twice every day, DuoNeb 3 manipulation 4 times every day, oxygen support, currently on the ventilator. 8. Mild intermittent asthma. Continue Singulair 10 mg at bedtime, loratadine 10 mg once every day, continue aggressive pulmonary toileting. 9. Benign prostatic hypertrophy. Continue Flomax 0.4 mg currently has a Henry catheter in place. 10. Hereditary factor VIII deficiency. Patient was taken off heparin drip, he is currently on Lovenox 40 mg subcutaneous every 24 hours. 11. Hyperlipidemia. Continue Zetia 10 mg daily and Atorvastatin 40 mg once a day. Monitor the patient lipid panel, keep LDL 55-70 12. Hypertension and hypertensive cardiovascular disease. patient blood pressure is soft at this time, continue metoprolol 25 mg orally 3 times every day. 13. GI prophylaxis. Protonix 40 mg IV push daily. 14. DVT prophylaxis. Request 15. Major depressive disorder. Continue patient on Effexor XR 37.5 mg orally once every day. 16. Prognosis is guarded 17. Full code. DVT prophylaxis: Eliquis Monitor vital signs and labs Labs and medication were reviewed. Continue same treatment. Further recommendations as per clinical course of the patient PHYSICAL EXAMINATION: GENERAL: A&O x 0. Intubated and sedated. HEENT: EOMI, Sclerae anicteric, Moist Mucous membranes Neck: Supple, Non tender, No JVD PULMONARY: Equal breath souds B/L, No wheezing, + crackles. CARDIOVASCULAR: S1, S2 present. No murmurs, rubs, or gallops. ABDOMEN: Soft, nontender, nondistended, normoactive bowel sounds. No guarding or rebound tenderness. MUSCULOSKELETAL: ++edema, No cyanosis. No clubbing. Normal ROM. Intact perip heral pulses. NEUROLOGICAL: CN 2-12 grossly intact. No FND Skin: No Rash REVIEW OF SYSTEMS: Review of system, patient sedated and intubated. Dictation was produced using [employer] dictation software. please excuse any grammatical, word or spelling errors. Objective - Vital Signs Vital signs: Vital Signs Temp 97.5 F L 12/15/24 12:00 Pulse 92 12/15/24 12:30 Resp 28 H 12/15/24 12:30 BP 120/60 12/14/24 18:08 Pulse Ox 92 L 12/15/24 12:30 FiO2 50 12/15/24 12:15 Intake & Output 12/14/24 12/15/24 12/15/24 18:59 06:59 18:59 Intake Total 4390.022 1112.126 548.419 Output Total 2920 10 5 Balance 7620.677 9286.126 543.419 Weight 126.2 kg Intake: IV 326 276 138 Cefepime 1 gm In Sodium 50 Chloride 0.9% 50 ml @ 12. 5 mls/hr IVPB Q24HR BRIANA Rx#:[id number] Pressure Bag 36 36 18 kvo 240 240 120 Intake, IV Titration 774.022 446.126 200.419 Amount Norepinephrine 4 mg In 358.313 176.301 118.554 Sodium Chloride 0.9% 250 ml @ 0.03 MCG/KG/MIN 12. 443 mls/hr IV .[id number] BRIANA Rx#:[id number] propofoL 1,000 mg In 415.709 269.825 81.865 Empty Bag 1 bag @ 15 MCG/ KG/MIN 9.798 mls/hr IV . [id number] BRIANA Rx#:[id number] Tube Feeding 300 300 150 Hemodialysis 2900 Other 90 90 60 Output: Urine 20 10 5 Hemodialysis 400 Hemodialysis Net Amount 2500 Other: Voiding Method Indwelling Catheter Indwelling Catheter Indwelling Catheter ABP, PAP, CO, CI - Last Documented Arterial Blood Pressure 120/54 - Labs CBC & Chem 7: 12/15/24 04:28 12/15/24 04:28 Labs: Abnormal Lab Results - Last 24 Hours (Table) 12/14/24 12/14/24 12/15/24 Range/Units 17:27 23:46 04:28 WBC 18.7 H (3.8-10.6) k/uL RBC 3.52 L (4.30-5.90) m/uL Hgb 10.1 L (13.0-17.5) gm/dL Hct 30.2 L (39.0-53.0) % RDW 16.0 H (11.5-15.5) % Plt Count 87 L (150-450) k/uL Neutrophils # 18.2 H (1.3-7.7) k/uL Lymphocytes # 0.1 L (1.0-4.8) k/uL ABG pH (7.35-7.45) ABG pO2 (83-108) mmHg ABG O2 Saturation (94-97) % Hemoglobin (13.0-17.5) gm/dL Sodium (137-145) mmol/L Chloride (98-107) mmol/L Carbon Dioxide (22-30) mmol/L BUN (9-20) mg/dL Creatinine (0.66-1.25) mg/dL Glucose (74-99) mg/dL POC Glucose (mg/dL) 125 H 131 H (70-110) mg/dL Calcium (8.4-10.2) mg/dL ALT (4-49) U/L Total Protein (6.3-8.2) g/dL Albumin (3.5-5.0) g/dL 12/15/24 12/15/24 12/15/24 Range/Units 04:28 06:19 11:30 WBC (3.8-10.6) k/uL RBC (4.30-5.90) m/uL Hgb (13.0-17.5) gm/dL Hct (39.0-53.0) % RDW (11.5-15.5) % Plt Count (150-450) k/uL Neutrophils # (1.3-7.7) k/uL Lymphocytes # (1.0-4.8) k/uL ABG pH 7.33 L (7.35-7.45) ABG pO2 61 L (83-108) mmHg ABG O2 Saturation 89.5 L (94-97) % Hemoglobin 9.7 L (13.0-17.5) gm/dL Sodium 125 L (137-145) mmol/L Chloride 93 L (98-107) mmol/L Carbon Dioxide 21 L (22-30) mmol/L BUN 73 H (9-20) mg/dL Creatinine 2.98 H (0.66-1.25) mg/dL Glucose 126 H (74-99) mg/dL POC Glucose (mg/dL) 135 H (70-110) mg/dL Calcium 7.6 L (8.4-10.2) mg/dL ALT 62 H (4-49) U/L Total Protein 4.5 L (6.3-8.2) g/dL Albumin 2.3 L (3.5-5.0) g/dL
--- NOTE | 2024-12-15 14:31 | P.PN ---
Subjective Progress Note Date: 12/15/24 Principal diagnosis: Reason for follow-up is acute influenza A/Pseudomonas pneumonia Patient is a 84-year-old male with a past medical history significant for atrial fibrillation diabetes mellitus DVT hypertension hyperlipidemia recent admission to the hospital diagnosed with MRSA bacteremia source was likely pneumonia, did have a negative LIS presenting back to the hospital for increasing shortness of breath has been diagnosed with sepsis secondary pneumonia also tested positive for influenza A sputum showing Pseudomonas. On today's evaluation that is 12/15/2024, Patient is afebrile patient is currently on ventilator FiO2 is stable at 50% no significant purulent secretion through the ET patient is currently off the pressor support no diarrhea and the changes reported by nursing staff. Patient white count is down to 18.7, creatinine is 2.98 blood culture have been negative Objective - Vital Signs Vital signs: Vital Signs Temp 97.5 F L 12/15/24 12:00 Pulse 92 12/15/24 12:30 Resp 28 H 12/15/24 12:30 BP 120/60 12/14/24 18:08 Pulse Ox 92 L 12/15/24 12:30 FiO2 50 12/15/24 12:15 Intake & Output 12/14/24 12/15/24 12/15/24 18:59 06:59 18:59 Intake Total 4390.022 1112.126 548.419 Output Total 2920 10 5 Balance 4800.361 4938.126 543.419 Weight 126.2 kg Intake: IV 326 276 138 Cefepime 1 gm In Sodium 50 Chloride 0.9% 50 ml @ 12. 5 mls/hr IVPB Q24HR BRIANA Rx#:[id number] Pressure Bag 36 36 18 kvo 240 240 120 Intake, IV Titration 774.022 446.126 200.419 Amount Norepinephrine 4 mg In 358.313 176.301 118.554 Sodium Chloride 0.9% 250 ml @ 0.03 MCG/KG/MIN 12. 443 mls/hr IV .[id number] BRIANA Rx#:[id number] propofoL 1,000 mg In 415.709 269.825 81.865 Empty Bag 1 bag @ 15 MCG/ KG/MIN 9.798 mls/hr IV . [id number] BRIANA Rx#:[id number] Tube Feeding 300 300 150 Hemodialysis 2900 Other 90 90 60 Output: Urine 20 10 5 Hemodialysis 400 Hemodialysis Net Amount 2500 Other: Voiding Method Indwelling Catheter Indwelling Catheter Indwelling Catheter ABP, PAP, CO, CI - Last Documented Arterial Blood Pressure 120/54 - Exam GENERAL DESCRIPTION: An elderly male intubated on the vent RESPIRATORY SYSTEM: Unlabored breathing , decreased breath sounds at bases HEART: S1 S2 regular rate and rhythm , ABDOMEN: Soft , no tenderness EXTREMITIES: Mild swelling to the leg no redness - Labs CBC & Chem 7: 12/15/24 04:28 12/15/24 04:28 Labs: Abnormal Lab Results - Last 24 Hours (Table) 12/14/24 12/14/24 12/15/24 Range/Units 17:27 23:46 04:28 WBC 18.7 H (3.8-10.6) k/uL RBC 3.52 L (4.30-5.90) m/uL Hgb 10.1 L (13.0-17.5) gm/dL Hct 30.2 L (39.0-53.0) % RDW 16.0 H (11.5-15.5) % Plt Count 87 L (150-450) k/uL Neutrophils # 18.2 H (1.3-7.7) k/uL Lymphocytes # 0.1 L (1.0-4.8) k/uL ABG pH (7.35-7.45) ABG pO2 (83-108) mmHg ABG O2 Saturation (94-97) % Hemoglobin (13.0-17.5) gm/dL Sodium (137-145) mmol/L Chloride (98-107) mmol/L Carbon Dioxide (22-30) mmol/L BUN (9-20) mg/dL Creatinine (0.66-1.25) mg/dL Glucose (74-99) mg/dL POC Glucose (mg/dL) 125 H 131 H (70-110) mg/dL Calcium (8.4-10.2) mg/dL ALT (4-49) U/L Total Protein (6.3-8.2) g/dL Albumin (3.5-5.0) g/dL 12/15/24 12/15/24 12/15/24 Range/Units 04:28 06:19 11:30 WBC (3.8-10.6) k/uL RBC (4.30-5.90) m/uL Hgb (13.0-17.5) gm/dL Hct (39.0-53.0) % RDW (11.5-15.5) % Plt Count (150-450) k/uL Neutrophils # (1.3-7.7) k/uL Lymphocytes # (1.0-4.8) k/uL ABG pH 7.33 L (7.35-7.45) ABG pO2 61 L (83-108) mmHg ABG O2 Saturation 89.5 L (94-97) % Hemoglobin 9.7 L (13.0-17.5) gm/dL Sodium 125 L (137-145) mmol/L Chloride 93 L (98-107) mmol/L Carbon Dioxide 21 L (22-30) mmol/L BUN 73 H (9-20) mg/dL Creatinine 2.98 H (0.66-1.25) mg/dL Glucose 126 H (74-99) mg/dL POC Glucose (mg/dL) 135 H (70-110) mg/dL Calcium 7.6 L (8.4-10.2) mg/dL ALT 62 H (4-49) U/L Total Protein 4.5 L (6.3-8.2) g/dL Albumin 2.3 L (3.5-5.0) g/dL Assessment and Plan (1) Influenza A Current Visit: Yes Status: Acute Code(s): J10.1 - FLU DUE TO OTH IDENT INFLUENZA VIRUS W OTH RESP MANIFEST SNOMED Code(s): 713976639 (2) Leukocytosis Current Visit: Yes Status: Acute Code(s): D72.829 - ELEVATED WHITE BLOOD CELL COUNT, UNSPECIFIED SNOMED Code(s): 810751944 (3) Pneumonia Current Visit: No Status: Acute Code(s): J18.9 - PNEUMONIA, UNSPECIFIED ORGANISM SNOMED Code(s): 736108298 (4) Sepsis Current Visit: No Status: Acute Code(s): A41.9 - SEPSIS, UNSPECIFIED ORGANISM SNOMED Code(s): 96549970 Plan: 1patient presented to hospital with sepsis in this patient who did have hypotension requiring pressor support elevated white count source is multifactorial possible component of pneumonia with the sputum not showing Pseud omonas aeruginosa and recently did have a history of MRSA pneumonia for the patient has received adequate vancomycin which has been discontinued. 2 Patient with acute influenza A, patient completed 5-day course of Tamiflu. 3-patient did have worsening of his kidney function and has been started on hemodialysis, nephrology is following the patient 4- patient is afebrile patient white count trending down to 18,000 today patient blood culture have been negative sputum culture positive for Pseudomonas aeruginosa 4patient did have some clinical improvement we will continue cefepime and will monitor clinical course closely Daughter and son-in-law at the bedside question answered Dictation was produced using [employer] dictation software. please excuse any grammatical, word or spelling errors. Time with Patient: Less than 30
[2024-12-15] MEDS: CEFEPIME 1 GM in SODIUM CHLORIDE 0.9% 50 ML IVPB SCH (16:18)
[2024-12-15 17:55] LABS: Glucose,Whole Blood 150 mg/dL (70-110)
[2024-12-15] MEDS: ENOXAPARIN 40 MG/0.4 ML SYRINGE SQ SCH (19:38)
[2024-12-15] MEDS: polyethylene glycoL 3350 17 GM POWD.PACK PO SCH (20:56)
--- NOTE | 2024-12-15 21:12 | PN ---
PROGRESS NOTE SUBJECTIVE: An 84-year-old gentleman who is admitted to ICU with vent requiring respiratory failure, that we are following because of persistent atrial fibrillation with poorly controlled ventricular rate. His hypotension has improved. Levophed is being tapered and hopefully will be stopped. The patient is on amiodarone 200 b.i.d. and metoprolol 25 t.i.d. for rate control and the heart rate is well controlled. I resumed Eliquis yesterday for anticoagulation. OBJECTIVE: GENERAL: The patient is intubated, sedated on the vent. VITAL SIGNS: Heart rate is 90 beats per minute. Blood pressure is 133/58, respiratory rate is 28. CHEST: Reveals diminished air entry with occasional rhonchi bilaterally. HEART: Reveals first and second heart sounds. No gallop. EXTREMITIES: Reveals bilateral pitting edema. LABORATORY DATA: Labs showed that the sodium is 125, potassium is 5.1, BUN is 73, creatinine is 3, hemoglobin is 10.1, platelet count is 87. ASSESSMENT: 1. Vent-requiring respiratory failure, persistent atrial fibrillation with controlled ventricular rate. 2. Hypotension. 3. Thrombocytopenia. PLAN: Continue current medications. Follow the platelet count. If it drops further, we may have to stop the blood thinners. Prognosis is guarded. MMODL / IJN: [id number] /
[2024-12-15 23:14] LABS: Glucose,Whole Blood 173 mg/dL (70-110)
[2024-12-15] MEDS: bisacodyL 10 MG SUPP RECTAL PRN (23:46)
[2024-12-16 04:10] LABS: Basophils % (A) 0 %; Eosinophils % (A) 0 %; HCT 31.1 % (39.0-53.0); HGB 10.2 gm/dL (13.0-17.5); Lymphocytes # (A) 0.1 k/uL (1.0-4.8); Lymphocytes % (A) 1 %; MCH 28.2 pg (25.0-35.0); MCHC 32.8 g/dL (31.0-37.0); Monocytes # (A) 0.4 k/uL (0-1.0); Monocytes % (A) 2 %; Neutrophils # (A) 22.9 k/uL (1.3-7.7); Neutrophils % (A) 97 %; Platelet Count 107 k/uL (150-450); RBC 3.62 m/uL (4.30-5.90); RDW 15.9 % (11.5-15.5); WBC 23.6 k/uL (3.8-10.6)
[2024-12-16 04:27] LABS: Anion Gap 14 mmol/L; Calcium 7.6 mg/dL (8.4-10.2); Carbon Dioxide 17 mmol/L (22-30); Chloride 92 mmol/L (98-107); Glucose 118 mg/dL (74-99); Magnesium 2.6 mg/dL (1.6-2.3); Potassium 5.8 mmol/L (3.5-5.1); Sodium 123 mmol/L (137-145)
[2024-12-16 04:33] LABS: African American GFR (CKD) 15 (>60 ml/min/1.73 sqM); Non-African American GFR(CKD) 13 (>60 ml/min/1.73 sqM)
[2024-12-16 04:48] LABS: ABG Base Excess -7.1 mmol/L; ABG HCO3 19 mmol/L (21-25); ABG Oxygen Saturation 89.9 % (94-97); ABG PCO2 41 mmHg (35-45); ABG PH 7.28 (7.35-7.45); ABG PO2 65 mmHg (83-108); ABG TCO2 20 mmol/L (19-24)
[2024-12-16 05:01] LABS: Allen Test Performed? no
[2024-12-16 05:30] LABS: Blood Urea Nitrogen 102 mg/dL (9-20)
[2024-12-16 05:51] LABS: Glucose,Whole Blood 136 mg/dL (70-110)
--- NOTE | 2024-12-16 07:05 | XR ---
EXAMINATION TYPE: XR chest 1V portable DATE OF EXAM: 12/16/2024 5:54 AM COMPARISON: Chest radiographs from 12/15/2024 TECHNIQUE: XR chest 1V portable Portable AP radiograph of the chest. CLINICAL INDICATION:Male, 84 years old with history of vent; FINDINGS: Lungs/Pleura: No evidence of focal consolidation or pneumothorax. Blunting of the costophrenic angles is present. Pulmonary vascularity: Pulmonary vascular congestion. Heart/mediastinum: Cardiomediastinal silhouette is unremarkable. Musculoskeletal: No acute osseous pathology. Other findings: None Lines/Tubes: Endotracheal tube with distal tip 4.1 cm above the landen Nasogastric tube with its distal tip and side-port projecting under the diaphragm and projecting over the gastric lumen. Left IJ approach central venous catheter distal tip in the mid SVC. IMPRESSION: 1. Stable position of support lines and tubes. 2. No significant change in acute cardiopulmonary disease as described above. [facility], , 12/16/2024 7:03 AM
--- NOTE | 2024-12-16 10:33 | P.PN ---
Subjective Patient is seen in follow-up for acute kidney injury. Intubated. Receiving tube feeds. Off vasopressors. Vital signs are stable. General: Resting in bed. HEENT: Intubated. LUNGS: Scattered rhonchi. HEART: Regular rate and rhythm. ABDOMEN: Obese. EXTREMITITES: 2+ edema. Objective - Vital Signs Vital signs: Vital Signs Temp 96.3 F L 12/16/24 08:00 Pulse 92 12/16/24 10:00 Resp 28 H 12/16/24 10:00 BP 131/87 12/16/24 08:30 Pulse Ox 95 12/16/24 10:00 FiO2 50 12/16/24 08:00 Intake & Output 12/15/24 12/16/24 12/16/24 18:59 06:59 18:59 Intake Total 5263.940 1187.473 282 Output Total 5 10 10 Balance 3883.025 6552.473 272 Weight 128.7 kg Intake: IV 326 266 92 Cefepime 1 gm In Sodium 50 Chloride 0.9% 50 ml @ 12. 5 mls/hr IVPB Q24HR [facility] Rx#:[id number] Pressure Bag 36 36 12 kvo 240 230 80 Intake, IV Titration 375.726 414.473 Amount Cefepime 1 gm In Sodium 50 Chloride 0.9% 50 ml @ 12. 5 mls/hr IVPB Q24H [facility] Rx #:[id number] Norepinephrine 4 mg In 155.606 39.680 Sodium Chloride 0.9% 250 ml @ 0.03 MCG/KG/MIN 12. 443 mls/hr IV .[id number] [facility] Rx#:[id number] propofoL 1,000 mg In 220.120 324.793 Empty Bag 1 bag @ 15 MCG/ KG/MIN 9.798 mls/hr IV . [id number] [facility] Rx#:[id number] Tube Feeding 300 304 100 Other 90 180 90 Output: Urine 5 10 10 Other: Voiding Method Indwelling Catheter Indwelling Catheter Indwelling Catheter ABP, PAP, CO, CI - Last Documented Arterial Blood Pressure 129/57 - Labs CBC & Chem 7: 12/16/24 04:00 12/16/24 04:00 Labs: Abnormal Lab Results - Last 24 Hours (Table) 12/15/24 12/15/24 12/15/24 Range/Units 11:30 17:54 23:13 WBC (3.8-10.6) k/uL RBC (4.30-5.90) m/uL Hgb (13.0-17.5) gm/dL Hct (39.0-53.0) % RDW (11.5-15.5) % Plt Count (150-450) k/uL Neutrophils # (1.3-7.7) k/uL Lymphocytes # (1.0-4.8) k/uL ABG pH (7.35-7.45) ABG pO2 (83-108) mmHg ABG HCO3 (21-25) mmol/L ABG O2 Saturation (94-97) % Hemoglobin (13.0-17.5) gm/dL Sodium (137-145) mmol/L Potassium (3.5-5.1) mmol/L Chloride (98-107) mmol/L Carbon Dioxide (22-30) mmol/L BUN (9-20) mg/dL Creatinine (0.66-1.25) mg/dL Glucose (74-99) mg/dL POC Glucose (mg/dL) 135 H 150 H 173 H (70-110) mg/dL Calcium (8.4-10.2) mg/dL Magnesium (1.6-2.3) mg/dL 12/16/24 12/16/24 12/16/24 Range/Units 04:00 04:00 04:46 WBC 23.6 H (3.8-10.6) k/uL RBC 3.62 L (4.30-5.90) m/uL Hgb 10.2 L (13.0-17.5) gm/dL Hct 31.1 L (39.0-53.0) % RDW 15.9 H (11.5-15.5) % Plt Count 107 L (150-450) k/uL Neutrophils # 22.9 H (1.3-7.7) k/uL Lymphocytes # 0.1 L (1.0-4.8) k/uL ABG pH 7.28 L (7.35-7.45) ABG pO2 65 L (83-108) mmHg ABG HCO3 19 L (21-25) mmol/L ABG O2 Saturation 89.9 L (94-97) % Hemoglobin 9.9 L (13.0-17.5) gm/dL Sodium 123 L (137-145) mmol/L Potassium 5.8 H (3.5-5.1) mmol/L Chloride 92 L (98-107) mmol/L Carbon Dioxide 17 L (22-30) mmol/L BUN 102 H* (9-20) mg/dL Creatinine 4.07 H (0.66-1.25) mg/dL Glucose 118 H (74-99) mg/dL POC Glucose (mg/dL) (70-110) mg/dL Calcium 7.6 L (8.4-10.2) mg/dL Magnesium 2.6 H (1.6-2.3) mg/dL 12/16/24 Range/Units 05:50 WBC (3.8-10.6) k/uL RBC (4.30-5.90) m/uL Hgb (13.0-17.5) gm/dL Hct (39.0-53.0) % RDW (11.5-15.5) % Plt Count (150-450) k/uL Neutrophils # (1.3-7.7) k/uL Lymphocytes # (1.0-4.8) k/uL ABG pH (7.35-7.45) ABG pO2 (83-108) mmHg ABG HCO3 (21-25) mmol/L ABG O2 Saturation (94-97) % Hemoglobin (13.0-17.5) gm/dL Sodium (137-145) mmol/L Potassium (3.5-5.1) mmol/L Chloride (98-107) mmol/L Carbon Dioxide (22-30) mmol/L BUN (9-20) mg/dL Creatinine (0.66-1.25) mg/dL Glucose (74-99) mg/dL POC Glucose (mg/dL) 136 H (70-110) mg/dL Calcium (8.4-10.2) mg/dL Magnesium (1.6-2.3) mg/dL Assessment and Plan Plan: Assessment: 1. Acute kidney injury secondary to ATN secondary to septic shock. Baseline creatinine near 1. Started on hemodialysis December 11, 2024 via femoral cat heter. Oliguric. No hydronephrosis noted on kidney ultrasound. 2. Acute hypoxic respiratory failure secondary to pneumonia. 3. Septic shock. Patient with influenza A pneumonia and sputum culture positive for Pseudomonas. 4. Metabolic acidosis secondary to acute kidney injury. 5. A-fib with RVR maintained on oral amiodarone and metoprolol. 6. Cardiomyopathy with ejection fraction of 40 to 45%. 7. Fluid overload. 8. Hyperkalemia secondary to acute kidney injury. Expect improvement pos tdialysis. 9. Hypervolemic hyponatremia. Plan: Currently seen while undergoing hemodialysis. Another treatment tomorrow mostly for ultrafiltration. Maintain tube feeds. Wean FiO2. Trach and PEG being considered. Avoid nephrotoxins. Continue to monitor renal function and urine output.
--- NOTE | 2024-12-16 12:31 | P.PN ---
Subjective Progress Note Date: 12/16/24 HISTORY OF PRESENT ILLNESS This is a 84-year-old male with past medical history of hypertension, paroxysmal atrial fibrillation on Xarelto, benign prostatic hypertrophy, hiatal hernia, hereditary factor VIII deficiency, hyperlipidemia, mild intermittent asthma, mild COPD, patient was recently admitted to [facility] after he underwent right total hip arthroplasty that was done by Dr. Thakkar and he has been at [facility] for physical therapy rehabilitation, patient was recently hospitalized at [facility] from November 25 of December 04 after he was admitted for what appears to be right lower lobe pneumonia appears to be MRSA pneumonia, initially was started on vancomycin as well as cefepime was seen in consultation by pulm medicine as well as cardiology, he had a significant MRSA bacteremia, that responded very well to vancomycin, patient ended up going for transesophageal echocardiogram that did not show evidence of any vegetation, it did show evidence of 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%, patient was sent to [facility] December 04, 2024 while he was there he was requiring about 5 L nasal cannula of oxygen, I received a phone call from the nursing staff stating that the patient is in acute respiratory distress today, he was given 60 mg IM of Lasix as well as 80 mg IM of Solu-Medrol with nebulizer treatment along with Pulmicort and DuoNeb, without any relief, he was placed on nonrebreather, and patient was sent to the ER for evaluation, he was found to have a significant leukocytosis with a white count of 36,000, his swab came back positive for influenza A, and chest x-ray showed evidence of cardiomegaly as well as basilar pneumonia patient was started back on his vancomycin as well as cefepime he was started on Tamiflu, he was started on Lasix 80 mg IV push every 12 hours, along with Solu-Medrol 60 mg IV push every 6 hours, DuoNeb nebulization 4 times every day Pulmicort 1 mg nebulization twice every day he is currently on BiPAP, pulmonary consultation as well as cardiology consultation. Sputum culture will be obtained as well as blood cultures. 12/07: While the patient yesterday in the emergency department he went into severe respiratory distress while he was on the BiPAP, he did receive 1 dose of Lasix 80 mg IV push, along with Solu-Medrol 60 mg IV push along with nebulized treatment in the form of DuoNeb as well as Pulmicort, without relief, at that time the decision was made for the patient to be intubated and transferred to the intensive care unit from the emergency department, patient is currently sedated on the ventilator, he is currently on amiodarone drip, as well as propofol drip, he is on 90% FiO2, with a PEEP of 5, pulmonary/critical care is following the patient very closely, cardiology is following as well, patient was started on IV antibiotic in the form of vancomycin as well as cefepime, he was started on Tamiflu as well due to influenza A, his white count initially was elevated at 43,000 down to 38,000, patient appears quite sick at this point in time, his prognosis continue be guarded, will continue with aggressive treatment plan for now, we will follow-up with the patient very closely. 12/08: Patient is laying down in bed he continues to be on the ventilator, currently FiO2 of 60%, PEEP of 12, tidal volume of 550, he continues to have a significant edema both upper and lower extremities, he is not getting any more IV fluid, will wean down his Levophed drip, continue IV antibiotic in the form of vancomycin as well as cefepime, sputum cultures growing Pseudomonas aeruginosa, currently on cefepime as well as vancomycin with pharmacy to dose to be controlled, continue also with Tamiflu for influenza A, patient was seen earlier by nephrology for acute kidney injury due to acute tubular necrosis and vasomotor nephropathy due to septic shock, continue current Lasix 80 mg IV push every 12 hours, monitor the patient input and output and daily weight, ultr asound of the kidney was obtained. 12/09: Patient is still intubated on the ventilator, he is currently on AC mode with a tidal volume of 550 respiration of 24, FiO2 of 60%, PEEP of 12, x-ray still showing evidence of pulmonary edema, he has been getting Lasix 80 mg IV push every 12 hours, he has an acute kidney injury that is getting worse today, his BUN and creatinine is elevated, nephrology is following, patient continues to be on Levophed, he has been on cefepime we will monitor the patient very closely, continue current treatment plan, will follow-up with the patient very closely, patient has been seen by nephrology, cardiology, as well as by pulmonary medicine and critical care, patient also was seen in consultation by infectious disease at this point in time, taken off vancomycin and Tamiflu due to acute kidney injury. 12/10: Patient is laying down in bed he continues to be on the ventilator, his current vent setting is FiO2 of 60%, respiratory rate is 24, tidal volume 450, and FiO2 of 60%, PEEP of 12, patient blood gases showed evidence of metabolic and respiratory acidosis with hypoxemia his pO2 is about 72 and pCO2 is 56, patient is getting a central line today, he continues to have worsening kidney function, will continue current treatment plan, continue follow-up with the patient very closely 12/11: Patient is laying down in bed continues to be sedated on the ventilator, worsening renal function his creatinine is up to 4.5, decreased urine output, was on lasix drip without improvement and he was started on HD today for 2 hours , patient continues to be treated with cefepime for Pseudomonas pneumonia, he continued to have a septic shock he is currently on Levophed, he is currently on propofol, his prognosis continues to be guarded, patient has underlying ca rdiomyopathy ejection fraction 45%, he continues to have atrial fibrillation for which she has been on amiodarone, patient has been followed by multiple specialties including ICU/pulmonary medicine, cardiology, nephrology, infectious disease, we will continue to follow-up with the patient very closely, he may require to have hemodialysis even for short period of time to improve his kidney function as well as fluid status. 12/12: Patient remains on the ventilator, his current tidal volume is 450 FiO2 of 60%, and a PEEP of 12, he is still requiring quite a bit of sedation he is still requiring Levophed to keep his pressure up, he is getting his edema hemodialysis for the second day today, his blood pressure is marginal, we discussed with the nursing staff increasing his Levophed little bit, but he is still in atrial fibrillation with rapid ventricular response, his urine output is minimal, trying to get another 500 cc out of his body today, chest x-ray still showing evidence of right lower lobe pneumonia, will follow-up with the patient very closely at this point patient prognosis continue to be guarded, I still think that the patient can turn around, we can continue with the current treatment plan continue with cefepime continue with aggressive pulmonary toileting, continue to follow-up with the patient very closely. 12/13: Patient is laying down in bed he continues to be on the ventilator, with the AC mode, tidal volume of 450, respiratory rate of 28, FiO2 50%, PEEP of 12, chest x-ray continues to show some signs of pneumonia in the right lower lobe, minimal pulmonary vascular congestion as well, he is getting dialysis for the third day in the room, his blood pressure appears to be marginal at this time, hopefully will increase his Levophed little bit for the patient to go for dialysis at this point in time, he continues to improve slowly, he continues to be on Levophed, he continues to be on cefepime, he has been followed by multiple specialty, we will continue with the feeding tube he is currently at 35 mL/h, he seems to be tolerating this very well. 12/14--patient was seen and examined today. Remains on Levophed. Remains intubated and sedated. Underwent hemodialysis today. Vitals reviewed. WBCs 21.6, hemoglobin 10.3, platelet 92. Blood gases showed pH 7.29, pCO2 47, pO2 75. Sodium 127, potassium 5.4, BUN 70, creatinine 3.21. Infectious disease, ne phrology, ICU following. 12/15--patient was seen and examined today. Family at bedside. Levophed weaned off. Patient remains intubated and sedated. Nephrology infectious disease and ICU following. Currently on cefepime. Chest x-ray showed right lower lobe infiltrate. Patient on tube feeds. Nephrology planning for hemodialysis tomorrow. Cultures remain negative. Labs reviewed. Anticoagulated with Eliquis. 12/16: Patient's kidney function test continues to deteriorate, he is going for h emodialysis today, he is hypertensive today, he is 2.2 L fluid overload, is going for dialysis today, he was off Levophed, he continues to be on cefepime, his blood gases showed worsening hypoxemia, patient is not making much urine at this point in time, we will continue with hemodialysis at this point, due to acute kidney injury that is oliguric due to acute tubular necrosis as well as vasomotor nephropathy, nephrology is following, we will follow-up with the patient very closely, patient has been on the ventilator for 10 days, will discuss with the family whether or not they want to have a trach and PEG tube placement at this point in time. REVIEW OF SYSTEMS Patient is sedated on the ventilator. PHYSICAL EXAMINATION Gen: This is an obese 84-year-old is sedated on the ventilator HEENT: Head is atraumatic, normocephalic. Pupils equal, round. Sclerae is anicteric, there is an NG tube in place, and ET tube placed NECK: Supple. No JVD. No lymphadenopathy. No thyromegaly. LUNGS: decreased breath sound at bases, few rhonchi, minimal expiratory wheezes, no chest wall tenderness, no intercostal retractions. HEART: First heart sound is depressed, second heart sound is normal, 2/6 systolic ejection murmur at the left sternal border, irregular irregular due to atrial fibrillation. ABDOMEN: Soft. Bowel sounds are present. No masses. No tenderness. EXTREMITIES: +3 pedal edema. No calf tenderness. Pain in the left hip. Dorsalis pedis palpable bilaterally. NEUROLOGICAL: Patient is currently sedated on the ventilator. ASSESSMENT AND PLAN: 1. Acute vent dependent hypoxemic respiratory failure due to acute systolic heart failure as well as acute left lower lobe Pseudomonas pneumonia and influenza A. Continue Solu-Medrol 40 mg IV push every 12 hours, continue DuoNeb 3 mL nebulization every 4 hours, continue Pulmicort 1 mg nebulization twice every day, continue cefepime 1 g IV piggyback every 12 hours, monitor the patient symptoms very closely, patient is still requiring FiO2 down to 50%, PEEP is down to 8, tidal volume 450 and respiratory rate is 24. 2. Pseudomonas pneumonia with septic shock . Try to wean Levophed off continue IV antibiotic in the form of cefepime 1 g piggyback every 4 hours, continue oxygen support, try to wean FiO2 down, continue to monitor the patient very closely. Infectious disease consultation from Dr. Agosto is appreciated. Monitor the patient symptoms very closely, b blood cultures are negative. 3. Atrial fibrillation with rapid ventricular response. Discontinue amiodarone 200 mg orally twice every day, continue on metoprolol 25 mg orally 3 times every day, monitor the patient symptoms very closely. Continue Eliquis 2.5 mg orally twice every day. 4. 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 5. Acute kidney injury due to acute tubular necrosis with vasomotor nephropathy due to septic shock. Patient did not do well without hemodialysis his BUN is up to 100 and creatinine is up to 4.5, he is 2.2 L overload he is getting hemodialysis right now. 6. Anion gap antibiotic acidosis due to acute kidney injury monitor the patient symptoms very closely, continue with hemodialysis for now. 7. COPD exacerbation. Continue Solu-Medrol 40 mg IV push every 12 hours, continue Pulmicort 1 mg nebulization twice every day, DuoNeb 3 manipulation 4 times every day, oxygen support, currently on the ventilator. 8. Mild intermittent asthma. Continue Singulair 10 mg at bedtime, loratadine 10 mg once every day, continue aggressive pulmonary toileting. 9. Benign prostatic hypertrophy. Continue Flomax 0.4 mg currently has a Henry catheter in place. 10. Hereditary factor VIII deficiency. Patient was taken off heparin drip, he is currently on Eliquis 2.5 mg orally twice every day. 11. Hyperlipidemia. Continue Zetia 10 mg daily and Atorvastatin 40 mg once a day and Zetia 10 mg once every day. Monitor the patient lipid panel, keep LDL 55-70 12. Hypertension and hypertensive cardiovascular disease. patient blood pressure is soft at this time, continue metoprolol 25 mg orally 3 times every day. 13. GI prophylaxis. Protonix 40 mg IV push daily. 14. DVT prophylaxis. Continue with Eliquis 2.5 mg orally twice every day. 15. Major depressive disorder. Continue patient on Effexor XR 37.5 mg orally once every day. 16. Prognosis is guarded 17. Full code. Objective - Vital Signs Vital signs: Vital Signs Temp 96.3 F L 12/16/24 08:00 Pulse 79 12/16/24 08:15 Resp 28 H 12/16/24 08:15 BP 131/87 12/16/24 07:00 Pulse Ox 92 L 12/16/24 08:15 FiO2 50 12/16/24 07:29 Intake & Output 12/15/24 12/16/24 12/16/24 18:59 06:59 18:59 Intake Total 8643.384 0219.473 126 Output Total 5 10 0 Balance 4622.736 3046.473 126 Weight 128.7 kg Intake: IV 326 266 46 Cefepime 1 gm In Sodium 50 Chloride 0.9% 50 ml @ 12. 5 mls/hr IVPB Q24HR [facility] Rx#:[id number] Pressure Bag 36 36 6 kvo 240 230 40 Intake, IV Titration 375.726 414.473 Amount Cefepime 1 gm In Sodium 50 Chloride 0.9% 50 ml @ 12. 5 mls/hr IVPB Q24H [facility] Rx #:[id number] Norepinephrine 4 mg In 155.606 39.680 Sodium Chloride 0.9% 250 ml @ 0.03 MCG/KG/MIN 12. 443 mls/hr IV .[id number] [facility] Rx#:[id number] propofoL 1,000 mg In 220.120 324.793 Empty Bag 1 bag @ 15 MCG/ KG/MIN 9.798 mls/hr IV . [id number] [facility] Rx#:[id number] Tube Feeding 300 304 50 Other 90 180 30 Output: Urine 5 10 0 Other: Voiding Method Indwelling Catheter Indwelling Catheter ABP, PAP, CO, CI - Last Documented Arterial Blood Pressure 131/55 - Labs CBC & Chem 7: 12/16/24 04:00 12/16/24 04:00 Labs: Abnormal Lab Results - Last 24 Hours (Table) 12/15/24 12/15/24 12/15/24 Range/Units 11:30 17:54 23:13 WBC (3.8-10.6) k/uL RBC (4.30-5.90) m/uL Hgb (13.0-17.5) gm/dL Hct (39.0-53.0) % RDW (11.5-15.5) % Plt Count (150-450) k/uL Neutrophils # (1.3-7.7) k/uL Lymphocytes # (1.0-4.8) k/uL ABG pH (7.35-7.45) ABG pO2 (83-108) mmHg ABG HCO3 (21-25) mmol/L ABG O2 Saturation (94-97) % Hemoglobin (13.0-17.5) gm/dL Sodium (137-145) mmol/L Potassium (3.5-5.1) mmol/L Chloride (98-107) mmol/L Carbon Dioxide (22-30) mmol/L BUN (9-20) mg/dL Creatinine (0.66-1.25) mg/dL Glucose (74-99) mg/dL POC Glucose (mg/dL) 135 H 150 H 173 H (70-110) mg/dL Calcium (8.4-10.2) mg/dL Magnesium (1.6-2.3) mg/dL 12/16/24 12/16/24 12/16/24 Range/Units 04:00 04:00 04:46 WBC 23.6 H (3.8-10.6) k/uL RBC 3.62 L (4.30-5.90) m/uL Hgb 10.2 L (13.0-17.5) gm/dL Hct 31.1 L (39.0-53.0) % RDW 15.9 H (11.5-15.5) % Plt Count 107 L (150-450) k/uL Neutrophils # 22.9 H (1.3-7.7) k/uL Lymphocytes # 0.1 L (1.0-4.8) k/uL ABG pH 7.28 L (7.35-7.45) ABG pO2 65 L (83-108) mmHg ABG HCO3 19 L (21-25) mmol/L ABG O2 Saturation 89.9 L (94-97) % Hemoglobin 9.9 L (13.0-17.5) gm/dL Sodium 123 L (137-145) mmol/L Potassium 5.8 H (3.5-5.1) mmol/L Chloride 92 L (98-107) mmol/L Carbon Dioxide 17 L (22-30) mmol/L BUN 102 H* (9-20) mg/dL Creatinine 4.07 H (0.66-1.25) mg/dL Glucose 118 H (74-99) mg/dL POC Glucose (mg/dL) (70-110) mg/dL Calcium 7.6 L (8.4-10.2) mg/dL Magnesium 2.6 H (1.6-2.3) mg/dL 12/16/24 Range/Units 05:50 WBC (3.8-10.6) k/uL RBC (4.30-5.90) m/uL Hgb (13.0-17.5) gm/dL Hct (39.0-53.0) % RDW (11.5-15.5) % Plt Count (150-450) k/uL Neutrophils # (1.3-7.7) k/uL Lymphocytes # (1.0-4.8) k/uL ABG pH (7.35-7.45) ABG pO2 (83-108) mmHg ABG HCO3 (21-25) mmol/L ABG O2 Saturation (94-97) % Hemoglobin (13.0-17.5) gm/dL Sodium (137-145) mmol/L Potassium (3.5-5.1) mmol/L Chloride (98-107) mmol/L Carbon Dioxide (22-30) mmol/L BUN (9-20) mg/dL Creatinine (0.66-1.25) mg/dL Glucose (74-99) mg/dL POC Glucose (mg/dL) 136 H (70-110) mg/dL Calcium (8.4-10.2) mg/dL Magnesium (1.6-2.3) mg/dL
[2024-12-16 12:32] LABS: Glucose,Whole Blood 110 mg/dL (70-110)
--- NOTE | 2024-12-16 13:22 | P.PN ---
Subjective Progress Note Date: 12/16/24 This is an 84-year-old white male familiar to my service, patient was recently seen in the hospital for MRSA bacteremia, workup for endocarditis and transesophageal echocardiogram was unremarkable and there was no evidence of vegetations. Patient was discharged to [facility] on vancomycin and he had a PICC line in place. His transesophageal echo on his last admission showed ejection fraction of 45%, patient is also known to have history of paroxysmal atrial fibrillation as well as history of hereditary factor VIII deficiency. In addition to all of this the patient is known to have history of mild COPD, hiatal hernia, hypertension, and yesterday [facility] was concerned about the patient having episodes of shortness of breath. Patient received diuretics, received bronchodilators, this was done upon arrival to the ER, patient developed worsening atrial fibrillation with RVR. I was notified about this patient from the ER, initially recommended amiodarone and amiodarone drip because of his atrial fibrillation with RVR, cardiology was consulted, his oxygenation while in the ER was getting worse in spite of diuretics his chest x- ray did not show any evidence of significant pulmonary edema, patient was intubated shortly after upon my recommendation, and arrangements made for the patient to transfer to the ICU late at night. In the meantime patient was noted to have leukocytosis, WBC count as high as 43.6, hemoglobin was 12.2. Basic metabolic profile was normal except for slightly low bicarb of 18 BUN 35 creatinine 1.28. Chest x-ray this morning showed normal pulmonary vasculature there was no clear-cut evidence of pneumonia or any pleural effusion, no evidence of congestive heart failure, patient did receive multiple fluid boluses yesterday for low blood pressure after intubation. Today the patient is on assist-control rate of 24 tidal volume 500 FiO2 90% and PEEP of 8 which I increased to 10 ABG remains marginal with a pO2 of 85 pCO2 44 pH of 7.31 patient has been on Xarelto for history of chronic atrial fibrillation presently I would recommend that we place the patient on heparin, patient is still receiving amiodarone at 0.5 mg/min he is also on norepinephrine at 0.06 mcg/kg/min propofol at 50 mcg/kg/min IV fluid 100 cc/h 0.9 normal saline. Went ahead and establish a right radial arterial line, patient does have a PICC line in place hence no need to change PICC line unless the patient comes back with positive blood cultures. In the meantime we are recommending cefepime and vancomycin. 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 Knowing this, possibility of pulmonary embolism is likely and I am recommending that we heparinized the patient for now, once his renal functioning improved may consider sending him down for a CT angiogram of the chest. Seen today on 12/08/2024, patient remains in the ICU, intubated mechanically ventilated, he is on assist-control rate of 24 tidal volume 500 FiO2 90% PEEP of 12 ABG showed a pO2 of 125 pCO2 50 pH of 7.25 hence tidal volume was increased to 550, FiO2 was cut down to 60%, kept the PEEP at 12. Chest x-ray is showing evidence of worsening interstitial edema. Patient is on diuretics Lasix 80 mg IV push twice daily. Patient is still requiring pressors he is on norepinephrine at 0.06 mcg/kg/min propofol at 30 mcg/kg/min IV fluid was 100 cc/h, however considering his chest x-ray I recommended we cut it down to KVO. Patient remains on amiodarone at 0.5 mg/min antibiotics schaefer he is on cefepime and vancomycin patient had recent MRSA bacteremia he is also on Tamiflu for acute influenza. For his DVT and possible pulmonary embolism patient remains on heparin as per protocol. Patient is sedated, still hemodynamically unstable requiring norepinephrine, patient is receiving GI DVT prophylaxis is also on enteral feeding for nutritional support. Blood cultures are still pending no plans to address weaning today since the patient is still requiring relatively high FiO2 and high PEEP. Renal functioning seems to be a bit worse, being addressed by nephrology on the case. Patient may have developed acute kidney injury, likely cardiorenal in nature. And could be related to his low blood pressure on presentation /acute tubular necrosis. 12/09/2024: Patient remains in the ICU, intubated mechanically ventilated, he is on assist-control rate of rr 24 tidal volume 550, peep at 12, fio2 60. ABG showed pO2 of 72, pCO2 43, and pH of 7.32. Overnight heart rate was in the 140s, Dr. Taylor was called and he gave Lopressor PO. CXR showing evidence of stable interstitial pattern with small effusion and basilar subsegmental consolidation. Patient had lower extremity Doppler on 12/07 showing chronic nonoccluding right lower extremity DVT for which she remains on heparin as per protocol. Patient is sedated, still hemodynamically unstable requiring norepinephrine, patient is receiving GI DVT prophylaxis and is also on enteral feeding 25 at goal. Fluid balance is approximately positive 1 L in the last 24 hours. Levo at 7.63 mg/min, heprin at 10, amio at .5, prop 50. Lasix at 80 IV BID. Preliminary Gram stain showed Pseudomonas and blood cultures have been negative through 48 hours. . Creatinine today 2.58 which is increased from yesterday of 1.89. Nephrology is following, they added 2 amp sodium bicarb IV push yesterday and stopped Cozaar, Aldactone, and Farxiga. Nephrology considers DEENA secondary to ATN secondary to septic shock as patient's baseline creatinine is usually near 1. Progress note dated December 10, 2024. 84-year-old male seen today in room 254. He remains on the mechanical ventilator. He is on volume assist-control mode, rate 24, tidal volume 450, FiO2 60%, PEEP of 12. Blood gases show a pO2 of 75, pCO2 of 53, pH of 7.23. The patient is getting saline at 20 cc an hour, propofol at 20 mcg/kg/min, Levophed at 2 mcg/min. In addition, the patient is getting heparin via weight- based protocol, and vital AF at 25 cc an hour which is goal. The patient con tinues on Tamiflu, and cefepime. His peak airway pressures 33, with a plateau pressure of 22. Current labs include a white count of 27.5, hemoglobin 11.6, hematocrit 36.2, and a platelet count of 139,000. PTT is 46.6. Sodium 134, potassium 4.8, chlorides 101, CO2 21, BUN 68, and creatinine 3.51. Glucose is 136. Calcium is 8. Sputum from December 06 is positive for Pseudomonas aeruginosa. Chest x-ray earlier from this morning, shows a stable interstitial pattern with small effusion. Chest x-ray after central line insertion shows a properly placed central line, with the tip of the catheter at the junction of superior vena cava and right atrium. Progress note dated December 11, 2024. 84-year-old male seen today in room 254. He remains on the mechanical ventilator. He is on volume assist-control mode, rate 28, tidal volume of 450, FiO2 60%, and PEEP of 12. His peak airway pressure is 29, with a plateau pressure of 22. Blood gases show pH 7.2, pCO2 51, pO2 96. The patient is get ting NS at 20 cc/h and propofol at 40 mcg/kg/min, no levo since 4 AM this morning. In addition the patient is off heparin currently due to bleeding around central line that was placed yesterday.Vital AF at 25 cc an hour and a goal of 35. The patient continues on cefepime (day 3) and completed Tamiflu. Current labs include WBC of 18.6, hemoglobin of 10.8, hematocrit of 34.7, and platelet count of 115,000. Sodium is 131, potassium 5.5, chloride 100, BUN 89, and creatinine 4.26. Glucose is 138. Calcium 7.9. Urine output remains poor, 690 mL over the last 24 hours. Chest x-ray from earlier from this morning shows blunting of the costophrenic angle, cardiomegaly, pulmonary vascular congestion and bilateral pleural effusions. Patient getting dialysis catheter placed this morning. Progress note dated December 12, 2024. 84-year-old male seen today in room 254. No significant overnight events, yesterday had dialysis catheter placed and received first round of dialysis. He remains on the mechanical ventilator. He is on volume assist-control mode,rr 28, tv 450, fio2 60%, and peep 12. The delta between the peak airway pressure and plateau pressure was 11. Blood gases show pO2 of 74, pCO2 56, and pH of 7.21 the patient is getting NS at 10ml/hr and propofol at 60. Patient is on lev o at 0.05. Currently heparin drip on hold. Vital AF at 35. The patient continues on cefepime (day 4) and completed Tamiflu already. Current labs include WBC of 25.8, hemoglobin of 11, platelet count of 122,000, sodium 128, potassium 6, bicarb 20, BUN 81, creatinine 4.31, glucose 123, and calcium 7.7. They took off 1.5 L during hemodialysis yesterday. Chest x-ray shows stable/potentially slightly worsening right basilar airspace opacities.` Progress note dated December 13, 2024. 84-year-old male seen today in room 254. No significant overnight events, yesterday received another round of dialysis. Plan is to receive dialysis again today, potentially sled. He remains on mechanical ventilator on volume assist- control mode with a respiratory rate of 28, tidal volume of 450, FiO2 60%, and PEEP of 12. The delta between the peak airway pressure and plateau pressure was 10. Patient noted to have significant cuff leak. Blood gases show pO2 106, pCO2 48, and pH 7.25. The patient is getting NS@10 mL/h and propofol at 60. Patient is on levo at 11.4 mcg/min. Patient remains off heparin for 2 days now after having bleeding from central line. Getting vital AF at 35 which is goal. On amiodarone 200 twice daily and Lopressor 25 3 times daily for A-fib. Patient continues on cefepime (day 5) and has already completed 5-day course Tamiflu. Current labs include WBC of 26.6, hemoglobin of 10.6, platelet count 107,000, sodium 127, potassium 5.9, bicarb 19, BUN 83, creatinine 3.94, calcium 7.8, and albumin 2.5. They took off 1.5 L during hemodialysis yesterday. Chest x-ray sh ows improvement from prior in the right lower lobe, stable left pleural effusion still noted. Progress note dated December 14, 2024. 84-year-old male seen today in room 254. No significant overnight events, yesterday received sled and took off 2.4L. Patient remains on mechanical ventilator on volume assist-control mode with respiratory rate of 28, tidal volume 450, FiO2 50%, and PEEP of 10. The delta between the peak airway pressure and plateau pressure was 8. Blood gases show pCO2 75, pCO2 47, and pH 7.29. The patient is getting NS@10 mL/h and propofol at 60 mcg/kg/min. Patient was on levo at 9 mcg/min. For DVT prophylaxis patient is on Lovenox SQ 40 daily. Getting vital AF at 25 which is goal. On amiodarone 200 mg twice daily and Lopressor 25 mg 3 times daily for A-fib. Patient continues on cefepime (day 6). Current labs include WBC 21.6, hemoglobin 10.3, platelet count 90,000, sodium 127, potassium 5.4, BUN 70, creatinine 3.21, calcium 7.9. They took off 2.4 L yesterday during dialysis. Chest x-ray shows no significant interval change in the pulmonary vascular congestion and bilateral small pleural effusions. On December 15, 2024 in follow-up in the intensive care unit. He remains intubated on mechanical ventilator. Currently assist-control mode with a respir atory rate of 28, tidal line 450, FiO2 50% and a PEEP of 10. Morning blood gases revealed a PaO2 of 61, pCO2 43 and a pH of 7.33. Chest x-ray continues to show a right lower lobe infiltrate. He is having episodes of desaturations while being repositioned by staff. He is sedated on propofol at 45 mcg/kg/min. Requiring norepinephrine at 2.5 mcg/mi. Normal saline at 20 mL/h. He is being nourished with vital AF at 25 mL/h which is goal. He remains on cefepime for his Pseudomonas aeruginosa positive sputum , completed 7 days course. Blood cultures revealed no growth. White count 18.7. Hemoglobin 10.1. Platelets 87,000. Sodium 125. Potassium 5.1. Bicarb 21. BUN 73. Creatinine 2.98. Glucose 126. He remains on DuoNeb inhalations, Solu-Medrol, Pulmicort inhalations. Anticoagulated with Eliquis. on 12/16/2024, the patient remains intubated on the mechanical ventilator. A [age]-year-old male patient who had a recent hospitalization for a MRSA sepsis discharged to ECF to receive IV vancomycin treatment via PICC line in an ECF. Noted his endocarditis workup was negative. The patient is known to have COPD, hypertension in addition to a combination of other comorbidities which include chronic A-fib, BPH, previous history of DVT, hypertension and he underwent a recent right hip arthroplasty on 10/25/2024. He also has mild chronic systolic heart failure with an EF of around 40 to 45% and his endocarditis workup was negative. Other comorbidities include BPH, nephrolithiasis with previous bilateral ureteral stent placement and previous history of frequent urine tract infection. During this current admission, the patient had a COPD exacerbation with influenza A positive and subsequently he developed pseudomonal pneumonia. At this point in time, the patient is intubated on mechanical ventilator. He was intubated on the day of admission and he remains on assist-control mode of mechanical ventilation at rate of 28, tidal volume of 450, FiO2 of 50% with a PEEP of 10. Blood gas showed pH of 7.28 with a pCO2 of 41 and pO2 of 65. Most recent sputum samples from 12/06/2024 was positive for Pseudomonas aeruginosa and the patient remains on IV cefepime. Blood cultures were essentially negative. Chest x-ray from today shows interstitial bilateral pulmonary filtrates essentially involving the lower lobes. Tube is in a good location. No airspace disease or consolidations. Remains on DuoNeb nebulized treatments [id number]. Remains on IV Solu-Medrol 60 mg every 6 hours. This morning, he is sedated on propofol which is running at 45 mcg/kg/min. He is on vital AF at rate of 25 cc an hour which is at goal. He is also off pressors . Noted during the course of this current admission, the patient sustained an acute kidney injury. He was seen by nephrology and started on hemodialysis. The patient is receiving hemodialysis periodically. Most recent labs from today showing a sodium level of 123, potassium of 5.8, bicarb of 17, BUN of 102 and a creatinine of 4.07. The CBC shows a white cell count of 23 with a hemoglobin 10.2 and a platelet count of 107. The fluid balance over the past 24 hours is +2.5 L. Patient patient is in A-fib with a controlled rate. He is on metoprolol for rate control. He is also on amiodarone 200 mg p.o. twice a day and anticoagulation with Eliquis 2.5 mg p.o. twice a day. He is on IV Protonix. Last HD was on 12/14/24 and he is planned to have HD today and he is anuric. Objective - Vital Signs Vital signs: Vital Signs Temp 97.5 F L 12/16/24 07:00 Pulse 75 12/16/24 07:32 Resp 28 H 12/16/24 07:00 BP 131/87 12/16/24 07:00 Pulse Ox 90 L 12/16/24 07:00 FiO2 50 12/16/24 07:29 Intake & Output 12/15/24 12/16/24 12/16/24 18:59 06:59 18:59 Intake Total 0776.985 7605.473 48 Output Total 5 10 0 Balance 5245.338 1900.473 48 Weight 128.7 kg Intake: IV 326 266 23 Cefepime 1 gm In Sodium 50 Chloride 0.9% 50 ml @ 12. 5 mls/hr IVPB Q24HR BRIANA Rx#:[id number] Pressure Bag 36 36 3 kvo 240 230 20 Intake, IV Titration 375.726 414.473 Amount Cefepime 1 gm In Sodium 50 Chloride 0.9% 50 ml @ 12. 5 mls/hr IVPB Q24H BRIANA Rx #:[id number] Norepinephrine 4 mg In 155.606 39.680 Sodium Chloride 0.9% 250 ml @ 0.03 MCG/KG/MIN 12. 443 mls/hr IV .[id number] BRIANA Rx#:[id number] propofoL 1,000 mg In 220.120 324.793 Empty Bag 1 bag @ 15 MCG/ KG/MIN 9.798 mls/hr IV . [id number] BRIANA Rx#:[id number] Tube Feeding 300 304 25 Other 90 180 Output: Urine 5 10 0 Other: Voiding Method Indwelling Catheter Indwelling Catheter ABP, PAP, CO, CI - Last Documented Arterial Blood Pressure 136/57 - Exam GENERAL EXAM: Intubated, sedated 84-year-old male patient, in no apparent distress. Intubated on mechanical ventilator. Orogastric and orotracheal tube are both in place. Peak airway pressure is around 24 HEAD: Normocephalic. EYES: Sluggish reaction of pupils, equal size. NOSE: Clear with pink turbinates. THROAT: Oral endotracheal and gastric tube secured in place, no erythema or exudates. NECK: Left IJ triple-lumen catheter in place. No masses, no JVD. CHEST: No chest wall deformity. LUNGS: Equal air entry with bilateral scattered rhonchi. CVS: S1 and S2 normal with no audible murmur, regular rhythm. ABDOMEN: No hepatosplenomegaly, normal bowel sounds, no guarding or rigidity. SPINE: No scoliosis or deformity SKIN: No rashes CENTRAL NERVOUS SYSTEM: No focal deficits, tone is normal in all 4 extremities. EXTREMITIES: Right radial arterial line in place. There is 1+ peripheral edema. No clubbing, no cyanosis. Peripheral pulses are intact. - Labs CBC & Chem 7: 12/16/24 04:00 12/16/24 04:00 Labs: Abnormal Lab Results - Last 24 Hours (Table) 12/15/24 12/15/24 12/15/24 Range/Units 11:30 17:54 23:13 WBC (3.8-10.6) k/uL RBC (4.30-5.90) m/uL Hgb (13.0-17.5) gm/dL Hct (39.0-53.0) % RDW (11.5-15.5) % Plt Count (150-450) k/uL Neutrophils # (1.3-7.7) k/uL Lymphocytes # (1.0-4.8) k/uL ABG pH (7.35-7.45) ABG pO2 (83-108) mmHg ABG HCO3 (21-25) mmol/L ABG O2 Saturation (94-97) % Hemoglobin (13.0-17.5) gm/dL Sodium (137-145) mmol/L Potassium (3.5-5.1) mmol/L Chloride (98-107) mmol/L Carbon Dioxide (22-30) mmol/L BUN (9-20) mg/dL Creatinine (0.66-1.25) mg/dL Glucose (74-99) mg/dL POC Glucose (mg/dL) 135 H 150 H 173 H (70-110) mg/dL Calcium (8.4-10.2) mg/dL Magnesium (1.6-2.3) mg/dL 12/16/24 12/16/24 12/16/24 Range/Units 04:00 04:00 04:46 WBC 23.6 H (3.8-10.6) k/uL RBC 3.62 L (4.30-5.90) m/uL Hgb 10.2 L (13.0-17.5) gm/dL Hct 31.1 L (39.0-53.0) % RDW 15.9 H (11.5-15.5) % Plt Count 107 L (150-450) k/uL Neutrophils # 22.9 H (1.3-7.7) k/uL Lymphocytes # 0.1 L (1.0-4.8) k/uL ABG pH 7.28 L (7.35-7.45) ABG pO2 65 L (83-108) mmHg ABG HCO3 19 L (21-25) mmol/L ABG O2 Saturation 89.9 L (94-97) % Hemoglobin 9.9 L (13.0-17.5) gm/dL Sodium 123 L (137-145) mmol/L Potassium 5.8 H (3.5-5.1) mmol/L Chloride 92 L (98-107) mmol/L Carbon Dioxide 17 L (22-30) mmol/L BUN 102 H* (9-20) mg/dL Creatinine 4.07 H (0.66-1.25) mg/dL Glucose 118 H (74-99) mg/dL POC Glucose (mg/dL) (70-110) mg/dL Calcium 7.6 L (8.4-10.2) mg/dL Magnesium 2.6 H (1.6-2.3) mg/dL 12/16/24 Range/Units 05:50 WBC (3.8-10.6) k/uL RBC (4.30-5.90) m/uL Hgb (13.0-17.5) gm/dL Hct (39.0-53.0) % RDW (11.5-15.5) % Plt Count (150-450) k/uL Neutrophils # (1.3-7.7) k/uL Lymphocytes # (1.0-4.8) k/uL ABG pH (7.35-7.45) ABG pO2 (83-108) mmHg ABG HCO3 (21-25) mmol/L ABG O2 Saturation (94-97) % Hemoglobin (13.0-17.5) gm/dL Sodium (137-145) mmol/L Potassium (3.5-5.1) mmol/L Chloride (98-107) mmol/L Carbon Dioxide (22-30) mmol/L BUN (9-20) mg/dL Creatinine (0.66-1.25) mg/dL Glucose (74-99) mg/dL POC Glucose (mg/dL) 136 H (70-110) mg/dL Calcium (8.4-10.2) mg/dL Magnesium (1.6-2.3) mg/dL Assessment and Plan Plan: Acute hypoxemic respiratory failure secondary to suspected healthcare acquired pneumonia, sputum culture positive for Pseudomonas aeruginosa currently maintained on mechanical ventilation, intubated on 12/06/2024. Completed the cou rse of cefepime. The patient remains on the mechanical ventilator. Some improvement in the acid-base status. His ongoing respiratory acidosis. Persistent sepsis and septic shock, secondary to MRSA bacteremia persistent positive blood cultures on 11/25/2024. Follow-up blood cultures revealed no gr owth, the patient is currently off pressors Recent discharge on 12/04/2024 to an ECF with PICC line and vancomycin in the LLE Moderate LV dysfunction, with diffuse interstitial edema Acute kidney injury secondary to hypotension, and possible acute tubular necrosis, currently on hemodialysis, left femoral HD cath History of atrial fibrillation with RVR, anticoagulated with Eliquis, maintained on a combination of amiodarone 200 mg p.o. twice a day, metoprolol anticoagulation with Eliquis Acute on chronic systolic congestive heart failure COPD exacerbation, he remains on DuoNeb updrafts and IV Solu-Medrol History of BPH History of factor VIII deficiency Possible pulmonary embolism History of DVT Benign essential hypertension Acute influenza A infection, completed a course of Tamiflu History of previous right total hip arthroplasty Plan: Give the patient a sedation holiday and assess the mental status Continue bronchodilators And IV Solu-Medrol to 40 mg every 12 hours Dropped respiratory rate of 22 Dropped the PEEP down to 8 Obtain a follow-up blood gas Completing a course of cefepime today Hemodialysis to performed today. Following hemodialysis, the patient will have another blood gas Anticoagulated with Eliquis Being nourished with vital AF at goal Will need to be considered for tracheostomy and PEG tube placement Condition remains critical. Will continue to follow. This evaluation was done more than 30 minutes. Time with Patient: Greater than 30
[2024-12-16 15:00] LABS: ABG Base Excess -2.5 mmol/L; ABG HCO3 22 mmol/L (21-25); ABG Oxygen Saturation 91.5 % (94-97); ABG PCO2 36 mmHg (35-45); ABG PH 7.39 (7.35-7.45); ABG PO2 64 mmHg (83-108); ABG TCO2 23 mmol/L (19-24)
[2024-12-16 15:41] VITALS: BMI 40.7
[2024-12-16 17:30] LABS: Glucose,Whole Blood 116 mg/dL (70-110)
--- NOTE | 2024-12-16 17:32 | P.PN ---
Subjective Patient remains intubated. On IV antibiotics. He has A-fib with RVR and is on amiodarone and metoprolol p.o. Discussed with the nurse From a cardiac standpoint continue current medications. His heart rates are in the low 100s His blood pressure is 118/60 mmHg. Occasionally he does need norepinephrine Labs are reviewed: Sodium 123 potassium 5.8, BUN 102 and creatinine 4.1 Continue current treatment from a cardiac standpoint Continue dialysis Objective - Vital Signs Vital signs: Vital Signs Temp 97.1 F L 12/16/24 16:00 Pulse 109 H 12/16/24 17:00 Resp 20 12/16/24 17:00 BP 131/87 12/16/24 16:45 Pulse Ox 90 L 12/16/24 17:00 FiO2 50 12/16/24 16:00 Intake & Output 12/15/24 12/16/24 12/16/24 18:59 06:59 18:59 Intake Total 0678.250 6642.473 1569.906 Output Total 5 10 6010 Balance 4176.832 5904.473 -4440.094 Weight 128.7 kg 128.7 kg Intake: IV 326 266 253 Cefepime 1 gm In Sodium 50 Chloride 0.9% 50 ml @ 12. 5 mls/hr IVPB Q24HR [facility] Rx#:[id number] Pressure Bag 36 36 33 kvo 240 230 220 Intake, IV Titration 375.726 414.473 341.906 Amount Cefepime 1 gm In Sodium 50 Chloride 0.9% 50 ml @ 12. 5 mls/hr IVPB Q24H [facility] Rx #:[id number] Norepinephrine 4 mg In 155.606 39.680 254.000 Sodium Chloride 0.9% 250 ml @ 0.03 MCG/KG/MIN 12. 443 mls/hr IV .[id number] [facility] Rx#:[id number] propofoL 1,000 mg In 220.120 324.793 87.906 Empty Bag 1 bag @ 15 MCG/ KG/MIN 9.798 mls/hr IV . [id number] [facility] Rx#:[id number] Oral 0 Tube Feeding 300 304 275 Blood Product 0 Hemodialysis 400 Other 90 180 300 Output: Urine 5 10 10 Hemodialysis 3200 Hemodialysis Net Amount 2800 Other: Voiding Method Indwelling Catheter Indwelling Catheter Indwelling Catheter # Bowel Movements 1 ABP, PAP, CO, CI - Last Documented Arterial Blood Pressure 129/57 - Labs CBC & Chem 7: 12/16/24 04:00 12/16/24 04:00 Labs: Abnormal Lab Results - Last 24 Hours (Table) 12/15/24 12/15/24 12/16/24 Range/Units 17:54 23:13 04:00 WBC 23.6 H (3.8-10.6) k/uL RBC 3.62 L (4.30-5.90) m/uL Hgb 10.2 L (13.0-17.5) gm/dL Hct 31.1 L (39.0-53.0) % RDW 15.9 H (11.5-15.5) % Plt Count 107 L (150-450) k/uL Neutrophils # 22.9 H (1.3-7.7) k/uL Lymphocytes # 0.1 L (1.0-4.8) k/uL ABG pH (7.35-7.45) ABG pO2 (83-108) mmHg ABG HCO3 (21-25) mmol/L ABG O2 Saturation (94-97) % Hemoglobin (13.0-17.5) gm/dL Sodium (137-145) mmol/L Potassium (3.5-5.1) mmol/L Chloride (98-107) mmol/L Carbon Dioxide (22-30) mmol/L BUN (9-20) mg/dL Creatinine (0.66-1.25) mg/dL Glucose (74-99) mg/dL POC Glucose (mg/dL) 150 H 173 H (70-110) mg/dL Calcium (8.4-10.2) mg/dL Magnesium (1.6-2.3) mg/dL 12/16/24 12/16/24 12/16/24 Range/Units 04:00 04:46 05:50 WBC (3.8-10.6) k/uL RBC (4.30-5.90) m/uL Hgb (13.0-17.5) gm/dL Hct (39.0-53.0) % RDW (11.5-15.5) % Plt Count (150-450) k/uL Neutrophils # (1.3-7.7) k/uL Lymphocytes # (1.0-4.8) k/uL ABG pH 7.28 L (7.35-7.45) ABG pO2 65 L (83-108) mmHg ABG HCO3 19 L (21-25) mmol/L ABG O2 Saturation 89.9 L (94-97) % Hemoglobin 9.9 L (13.0-17.5) gm/dL Sodium 123 L (137-145) mmol/L Potassium 5.8 H (3.5-5.1) mmol/L Chloride 92 L (98-107) mmol/L Carbon Dioxide 17 L (22-30) mmol/L BUN 102 H* (9-20) mg/dL Creatinine 4.07 H (0.66-1.25) mg/dL Glucose 118 H (74-99) mg/dL POC Glucose (mg/dL) 136 H (70-110) mg/dL Calcium 7.6 L (8.4-10.2) mg/dL Magnesium 2.6 H (1.6-2.3) mg/dL 12/16/24 12/16/24 Range/Units 14:55 17:29 WBC (3.8-10.6) k/uL RBC (4.30-5.90) m/uL Hgb (13.0-17.5) gm/dL Hct (39.0-53.0) % RDW (11.5-15.5) % Plt Count (150-450) k/uL Neutrophils # (1.3-7.7) k/uL Lymphocytes # (1.0-4.8) k/uL ABG pH (7.35-7.45) ABG pO2 64 L (83-108) mmHg ABG HCO3 (21-25) mmol/L ABG O2 Saturation 91.5 L (94-97) % Hemoglobin 10.2 L (13.0-17.5) gm/dL Sodium (137-145) mmol/L Potassium (3.5-5.1) mmol/L Chloride (98-107) mmol/L Carbon Dioxide (22-30) mmol/L BUN (9-20) mg/dL Creatinine (0.66-1.25) mg/dL Glucose (74-99) mg/dL POC Glucose (mg/dL) 116 H (70-110) mg/dL Calcium (8.4-10.2) mg/dL Magnesium (1.6-2.3) mg/dL
[2024-12-16] MEDS: methylPREDNISolone SOD SUCCI 40 MG/ML 1 ML VIAL IV SCH (20:54)
[2024-12-16 23:34] LABS: Glucose,Whole Blood 113 mg/dL (70-110)
[2024-12-17 04:17] LABS: ABG Base Excess -4.7 mmol/L; ABG HCO3 19 mmol/L (21-25); ABG PCO2 32 mmHg (35-45); ABG PH 7.39 (7.35-7.45); ABG PO2 64 mmHg (83-108); ABG TCO2 20 mmol/L (19-24)
[2024-12-17 04:28] LABS: Allen Test Performed? no
[2024-12-17 05:06] LABS: Glucose,Whole Blood 96 mg/dL (70-110)
[2024-12-17 05:21] LABS: Anisocytosis Slight; Basophils % (A) 0 %; Eosinophils # (A) 0.1 k/uL (0-0.7); Eosinophils % (A) 0 %; HCT 28.3 % (39.0-53.0); HGB 9.4 gm/dL (13.0-17.5); Lymphocytes # (A) 0.1 k/uL (1.0-4.8); Lymphocytes % (A) 1 %; MCHC 33.1 g/dL (31.0-37.0); MCV 84.7 fL (80.0-100.0); Mean Platelet Volume 9.9; Monocytes # (A) 0.5 k/uL (0-1.0); Monocytes % (A) 3 %; Neutrophils # (A) 20.7 k/uL (1.3-7.7); Neutrophils % (A) 96 %; Platelet Count 103 k/uL (150-450); RBC 3.34 m/uL (4.30-5.90); RDW 16.1 % (11.5-15.5); WBC 21.6 k/uL (3.8-10.6)
[2024-12-17 05:40] LABS: Anion Gap 14 mmol/L; Blood Urea Nitrogen 100 mg/dL (9-20); Calcium 7.6 mg/dL (8.4-10.2); Carbon Dioxide 18 mmol/L (22-30); Chloride 92 mmol/L (98-107); Glucose 116 mg/dL (74-99); Magnesium 2.5 mg/dL (1.6-2.3); Potassium 5.8 mmol/L (3.5-5.1); Sodium 124 mmol/L (137-145)
[2024-12-17 06:00] LABS: African American GFR (CKD) 16 (>60 ml/min/1.73 sqM); Non-African American GFR(CKD) 14 (>60 ml/min/1.73 sqM)
--- NOTE | 2024-12-17 07:06 | XR ---
EXAMINATION TYPE: XR chest 1V portable DATE OF EXAM: 12/17/2024 4:16 AM COMPARISON: Chest radiographs from 12/16/2024 TECHNIQUE: XR chest 1V portable Portable AP radiograph of the chest. CLINICAL INDICATION:Male, 84 years old with history of vent; FINDINGS: Lungs/Pleura: No evidence of pneumothorax. Blunting of the right costophrenic angle angle with right basilar patchy airspace opacities. Pulmonary vascularity: Pulmonary vascular congestion. Heart/mediastinum: Cardiomediastinal silhouette is unremarkable. Atherosclerotic calcifications are seen in the aorta. Musculoskeletal: No acute osseous pathology. Other findings: None Lines/Tubes: Endotracheal tube with distal tip 3.6 cm above the landen Nasogastric tube with its distal tip and side-port projecting under the diaphragm and projecting over the gastric lumen. Left IJ approach central venous catheter distal tip in the mid SVC. IMPRESSION: 1. Stable position of support lines and tubes. 2. Similar small right pleural effusion with increasing right basilar patchy airspace opacities. [facility], , 12/17/2024 7:04 AM
--- NOTE | 2024-12-17 09:23 | P.PN ---
Subjective Progress Note Date: 12/17/24 The patient is an 84-year-old male with multiple comorbid conditions is currently admitted to the hospital with acute hypoxic respiratory failure and septic shock. Cardiology has been consulted for A-fib management. Patient is currently on oral amiodarone, beta-niraj, and anticoagulation. He remains s edated on ventilator. GENERAL: Ill-appearing, well-nourished and in no acute distress. Currently s edated on ventilator. NECK: Supple without JVD or thyromegaly. LUNGS: Breath sounds coarse to auscultation bilaterally. Respiration equal and unlabored. Bilateral rhonchi. HEART: Irregular rate and rhythm without murmurs, rubs or gallops. S1 and S2 heard. EXTREMITIES: Normal range of motion, +2-3 pitting edema. No clubbing or cyanosis. Peripheral pulses intact and strong. TELEMETRY: Atrial fibrillation with heart rates in the low 100s LABS: WBC 21.6, hemoglobin 9.4, hematocrit 28.3, platelet 103, sodium 124, potassium 5.8, BUN 100, creatinine 3.80, magnesium 2.5 IMPRESSION: Hypoxic respiratory failure Septic shock Persistent atrial fibrillation Thrombocytopenia Acute on chronic kidney disease, on dialysis Influenza A PLAN: Continue current cardiac regimen Maximize beta-blockers as tolerated with blood pressure Continue dialysis Further recommendations to be based upon clinical course I am dictating on behalf of Dr Adama Arrieta's history/physical and assessment/plan. Objective - Vital Signs Vital signs: Vital Signs Temp 97.8 F 12/17/24 08:00 Pulse 108 H 12/17/24 09:00 Resp 28 H 12/17/24 09:00 BP 131/87 12/17/24 05:00 Pulse Ox 90 L 12/17/24 09:00 FiO2 50 12/17/24 08:00 Intake & Output 12/16/24 12/17/24 12/17/24 18:59 06:59 18:59 Intake Total 1725.906 735.931 209 Output Total 6010 13 0 Balance -4284.094 722.931 209 Weight 128.7 kg 126.9 kg Intake: IV 299 233 39 Pressure Bag 39 33 9 kvo 260 200 30 Intake, IV Titration 341.906 102.931 Amount Norepinephrine 4 mg In 254.000 102.931 Sodium Chloride 0.9% 250 ml @ 0.03 MCG/KG/MIN 12. 443 mls/hr IV .[id number] [facility] Rx#:[id number] propofoL 1,000 mg In 87.906 Empty Bag 1 bag @ 15 MCG/ KG/MIN 9.798 mls/hr IV . [id number] [facility] Rx#:[id number] Oral 0 Tube Feeding 325 250 50 Blood Product 0 Hemodialysis 400 Other 360 150 120 Output: Urine 10 13 0 Hemodialysis 3200 Hemodialysis Net Amount 2800 Other: Voiding Method Indwelling Catheter Indwelling Catheter Indwelling Catheter # Bowel Movements 1 1 ABP, PAP, CO, CI - Last Documented Arterial Blood Pressure 119/53 - Labs CBC & Chem 7: 12/17/24 05:00 12/17/24 05:00 Labs: Abnormal Lab Results - Last 24 Hours (Table) 12/16/24 12/16/24 12/16/24 Range/Units 14:55 17:29 23:31 WBC (3.8-10.6) k/uL RBC (4.30-5.90) m/uL Hgb (13.0-17.5) gm/dL Hct (39.0-53.0) % RDW (11.5-15.5) % Plt Count (150-450) k/uL Neutrophils # (1.3-7.7) k/uL Lymphocytes # (1.0-4.8) k/uL ABG pCO2 (35-45) mmHg ABG pO2 64 L (83-108) mmHg ABG HCO3 (21-25) mmol/L ABG O2 Saturation 91.5 L (94-97) % Hemoglobin 10.2 L (13.0-17.5) gm/dL Sodium (137-145) mmol/L Potassium (3.5-5.1) mmol/L Chloride (98-107) mmol/L Carbon Dioxide (22-30) mmol/L BUN (9-20) mg/dL Creatinine (0.66-1.25) mg/dL Glucose (74-99) mg/dL POC Glucose (mg/dL) 116 H 113 H (70-110) mg/dL Calcium (8.4-10.2) mg/dL Magnesium (1.6-2.3) mg/dL 12/17/24 12/17/24 12/17/24 Range/Units 04:17 05:00 05:00 WBC 21.6 H (3.8-10.6) k/uL RBC 3.34 L (4.30-5.90) m/uL Hgb 9.4 L (13.0-17.5) gm/dL Hct 28.3 L (39.0-53.0) % RDW 16.1 H (11.5-15.5) % Plt Count 103 L (150-450) k/uL Neutrophils # 20.7 H (1.3-7.7) k/uL Lymphocytes # 0.1 L (1.0-4.8) k/uL ABG pCO2 32 L (35-45) mmHg ABG pO2 64 L (83-108) mmHg ABG HCO3 19 L (21-25) mmol/L ABG O2 Saturation 91.0 L (94-97) % Hemoglobin 10.4 L (13.0-17.5) gm/dL Sodium 124 L (137-145) mmol/L Potassium 5.8 H (3.5-5.1) mmol/L Chloride 92 L (98-107) mmol/L Carbon Dioxide 18 L (22-30) mmol/L BUN 100 H (9-20) mg/dL Creatinine 3.80 H (0.66-1.25) mg/dL Glucose 116 H (74-99) mg/dL POC Glucose (mg/dL) (70-110) mg/dL Calcium 7.6 L (8.4-10.2) mg/dL Magnesium 2.5 H (1.6-2.3) mg/dL
--- NOTE | 2024-12-17 10:05 | P.PN ---
Subjective Patient is seen in follow-up for acute kidney injury. Intubated. Receiving tube feeds. Back on Levophed. Tolerated 2.8 L ultrafiltration yesterday. Family present at bedside. Vital signs are stable. General: Resting in bed. HEENT: Intubated. LUNGS: Scattered rhonchi. HEART: Regular rate and rhythm. ABDOMEN: Obese. EXTREMITITES: 2+ edema. Objective - Vital Signs Vital signs: Vital Signs Temp 97.8 F 12/17/24 08:00 Pulse 108 H 12/17/24 09:00 Resp 28 H 12/17/24 09:00 BP 131/87 12/17/24 05:00 Pulse Ox 90 L 12/17/24 09:00 FiO2 50 12/17/24 08:00 Intake & Output 12/16/24 12/17/24 12/17/24 18:59 06:59 18:59 Intake Total 1725.906 735.931 209 Output Total 6010 13 0 Balance -4284.094 722.931 209 Weight 128.7 kg 126.9 kg Intake: IV 299 233 39 Pressure Bag 39 33 9 kvo 260 200 30 Intake, IV Titration 341.906 102.931 Amount Norepinephrine 4 mg In 254.000 102.931 Sodium Chloride 0.9% 250 ml @ 0.03 MCG/KG/MIN 12. 443 mls/hr IV .[id number] [facility] Rx#:[id number] propofoL 1,000 mg In 87.906 Empty Bag 1 bag @ 15 MCG/ KG/MIN 9.798 mls/hr IV . [id number] [facility] Rx#:[id number] Oral 0 Tube Feeding 325 250 50 Blood Product 0 Hemodialysis 400 Other 360 150 120 Output: Urine 10 13 0 Hemodialysis 3200 Hemodialysis Net Amount 2800 Other: Voiding Method Indwelling Catheter Indwelling Catheter Indwelling Catheter # Bowel Movements 1 1 ABP, PAP, CO, CI - Last Documented Arterial Blood Pressure 119/53 - Labs CBC & Chem 7: 12/17/24 05:00 12/17/24 05:00 Labs: Abnormal Lab Results - Last 24 Hours (Table) 12/16/24 12/16/24 12/16/24 Range/Units 14:55 17:29 23:31 WBC (3.8-10.6) k/uL RBC (4.30-5.90) m/uL Hgb (13.0-17.5) gm/dL Hct (39.0-53.0) % RDW (11.5-15.5) % Plt Count (150-450) k/uL Neutrophils # (1.3-7.7) k/uL Lymphocytes # (1.0-4.8) k/uL ABG pCO2 (35-45) mmHg ABG pO2 64 L (83-108) mmHg ABG HCO3 (21-25) mmol/L ABG O2 Saturation 91.5 L (94-97) % Hemoglobin 10.2 L (13.0-17.5) gm/dL Sodium (137-145) mmol/L Potassium (3.5-5.1) mmol/L Chloride (98-107) mmol/L Carbon Dioxide (22-30) mmol/L BUN (9-20) mg/dL Creatinine (0.66-1.25) mg/dL Glucose (74-99) mg/dL POC Glucose (mg/dL) 116 H 113 H (70-110) mg/dL Calcium (8.4-10.2) mg/dL Magnesium (1.6-2.3) mg/dL 12/17/24 12/17/24 12/17/24 Range/Units 04:17 05:00 05:00 WBC 21.6 H (3.8-10.6) k/uL RBC 3.34 L (4.30-5.90) m/uL Hgb 9.4 L (13.0-17.5) gm/dL Hct 28.3 L (39.0-53.0) % RDW 16.1 H (11.5-15.5) % Plt Count 103 L (150-450) k/uL Neutrophils # 20.7 H (1.3-7.7) k/uL Lymphocytes # 0.1 L (1.0-4.8) k/uL ABG pCO2 32 L (35-45) mmHg ABG pO2 64 L (83-108) mmHg ABG HCO3 19 L (21-25) mmol/L ABG O2 Saturation 91.0 L (94-97) % Hemoglobin 10.4 L (13.0-17.5) gm/dL Sodium 124 L (137-145) mmol/L Potassium 5.8 H (3.5-5.1) mmol/L Chloride 92 L (98-107) mmol/L Carbon Dioxide 18 L (22-30) mmol/L BUN 100 H (9-20) mg/dL Creatinine 3.80 H (0.66-1.25) mg/dL Glucose 116 H (74-99) mg/dL POC Glucose (mg/dL) (70-110) mg/dL Calcium 7.6 L (8.4-10.2) mg/dL Magnesium 2.5 H (1.6-2.3) mg/dL Assessment and Plan Plan: Assessment: 1. Acute kidney injury secondary to ATN secondary to septic shock. Baseline creatinine near 1. Started on hemodialysis December 11, 2024 via femoral catheter. Oliguric. No hydronephrosis noted on kidney ultrasound. 2. Acute hypoxic respiratory failure secondary to pneumonia. 3. Septic shock. Patient with influenza A pneumonia and sputum culture positive for Pseudomonas. 4. Metabolic acidosis secondary to acute kidney injury. 5. A-fib with RVR maintained on oral amiodarone and metoprolol. 6. Cardiomyopathy with ejection fraction of 40 to 45%. 7. Fluid overload. 8. Hyperkalemia secondary to acute kidney injury. Expect improvement postdialysis. 9. Hypervolemic hyponatremia. Plan: Currently seen while undergoing hemodialysis. Continue with daily dialysis for ultrafiltration and also hyperkalemia. Maintain tube feeds. Wean FiO2. Trach and PEG being considered. Wean Levophed. Avoid nephrotoxins. Continue to monitor renal function and urine output.
[2024-12-17 11:35] LABS: Glucose,Whole Blood 106 mg/dL (70-110)
[2024-12-17] MEDS: LABETALOL 5 MG/ML VIAL MDV IVP STA (12:26)
--- NOTE | 2024-12-17 13:02 | P.PN ---
Subjective Progress Note Date: 12/16/24 Principal diagnosis: Reason for follow-up is acute influenza A/Pseudomonas pneumonia Patient is a 84-year-old male with a past medical history significant for atrial fibrillation diabetes mellitus DVT hypertension hyperlipidemia recent admission to the hospital diagnosed with MRSA bacteremia source was likely pneumonia, did have a negative LIS presenting back to the hospital for increasing shortness of breath has been diagnosed with sepsis secondary pneumonia also tested positive for influenza A sputum showing Pseudomonas. On today's evaluation that is 12/16/2024, patient has been afebrile, patient is intubated on the vent FiO2 is currently stable at 50% with significant purulent secretions in the ET, patient is requiring low-dose pressor support no diarrhea and the changes reported by the nursing staff. Patient white count is up to 23.6, creatinine 4.07 Objective - Vital Signs Vital signs: Vital Signs Temp 96 F L 12/16/24 13:34 Pulse 104 H 12/16/24 15:12 Resp 9 L 12/16/24 15:00 BP 140/86 12/16/24 13:34 Pulse Ox 92 L 12/16/24 15:00 FiO2 50 12/16/24 15:02 Intake & Output 12/15/24 12/16/24 12/16/24 18:59 06:59 18:59 Intake Total 9248.440 8032.473 1443.906 Output Total 5 10 6010 Balance 3303.738 4915.473 -4566.094 Weight 128.7 kg 128.7 kg Intake: IV 326 266 207 Cefepime 1 gm In Sodium 50 Chloride 0.9% 50 ml @ 12. 5 mls/hr IVPB Q24HR [facility] Rx#:[id number] Pressure Bag 36 36 27 kvo 240 230 180 Intake, IV Titration 375.726 414.473 341.906 Amount Cefepime 1 gm In Sodium 50 Chloride 0.9% 50 ml @ 12. 5 mls/hr IVPB Q24H [facility] Rx #:[id number] Norepinephrine 4 mg In 155.606 39.680 254.000 Sodium Chloride 0.9% 250 ml @ 0.03 MCG/KG/MIN 12. 443 mls/hr IV .[id number] [facility] Rx#:[id number] propofoL 1,000 mg In 220.120 324.793 87.906 Empty Bag 1 bag @ 15 MCG/ KG/MIN 9.798 mls/hr IV . [id number] [facility] Rx#:[id number] Oral 0 Tube Feeding 300 304 225 Blood Product 0 Hemodialysis 400 Other 90 180 270 Output: Urine 5 10 10 Hemodialysis 3200 Hemodialysis Net Amount 2800 Other: Voiding Method Indwelling Catheter Indwelling Catheter Indwelling Catheter # Bowel Movements 1 ABP, PAP, CO, CI - Last Documented Arterial Blood Pressure 113/52 - Exam GENERAL DESCRIPTION: An elderly male intubated on the vent RESPIRATORY SYSTEM: Unlabored breathing , decreased breath sounds at bases HEART: S1 S2 regular rate and rhythm , ABDOMEN: Soft , no tenderness EXTREMITIES: Mild swelling to the leg no redness - Labs CBC & Chem 7: 12/17/24 05:00 12/17/24 05:00 Labs: Abnormal Lab Results - Last 24 Hours (Table) 12/15/24 12/15/24 12/16/24 Range/Units 17:54 23:13 04:00 WBC 23.6 H (3.8-10.6) k/uL RBC 3.62 L (4.30-5.90) m/uL Hgb 10.2 L (13.0-17.5) gm/dL Hct 31.1 L (39.0-53.0) % RDW 15.9 H (11.5-15.5) % Plt Count 107 L (150-450) k/uL Neutrophils # 22.9 H (1.3-7.7) k/uL Lymphocytes # 0.1 L (1.0-4.8) k/uL ABG pH (7.35-7.45) ABG pO2 (83-108) mmHg ABG HCO3 (21-25) mmol/L ABG O2 Saturation (94-97) % Hemoglobin (13.0-17.5) gm/dL Sodium (137-145) mmol/L Potassium (3.5-5.1) mmol/L Chloride (98-107) mmol/L Carbon Dioxide (22-30) mmol/L BUN (9-20) mg/dL Creatinine (0.66-1.25) mg/dL Glucose (74-99) mg/dL POC Glucose (mg/dL) 150 H 173 H (70-110) mg/dL Calcium (8.4-10.2) mg/dL Magnesium (1.6-2.3) mg/dL 12/16/24 12/16/24 12/16/24 Range/Units 04:00 04:46 05:50 WBC (3.8-10.6) k/uL RBC (4.30-5.90) m/uL Hgb (13.0-17.5) gm/dL Hct (39.0-53.0) % RDW (11.5-15.5) % Plt Count (150-450) k/uL Neutrophils # (1.3-7.7) k/uL Lymphocytes # (1.0-4.8) k/uL ABG pH 7.28 L (7.35-7.45) ABG pO2 65 L (83-108) mmHg ABG HCO3 19 L (21-25) mmol/L ABG O2 Saturation 89.9 L (94-97) % Hemoglobin 9.9 L (13.0-17.5) gm/dL Sodium 123 L (137-145) mmol/L Potassium 5.8 H (3.5-5.1) mmol/L Chloride 92 L (98-107) mmol/L Carbon Dioxide 17 L (22-30) mmol/L BUN 102 H* (9-20) mg/dL Creatinine 4.07 H (0.66-1.25) mg/dL Glucose 118 H (74-99) mg/dL POC Glucose (mg/dL) 136 H (70-110) mg/dL Calcium 7.6 L (8.4-10.2) mg/dL Magnesium 2.6 H (1.6-2.3) mg/dL 12/16/24 Range/Units 14:55 WBC (3.8-10.6) k/uL RBC (4.30-5.90) m/uL Hgb (13.0-17.5) gm/dL Hct (39.0-53.0) % RDW (11.5-15.5) % Plt Count (150-450) k/uL Neutrophils # (1.3-7.7) k/uL Lymphocytes # (1.0-4.8) k/uL ABG pH (7.35-7.45) ABG pO2 64 L (83-108) mmHg ABG HCO3 (21-25) mmol/L ABG O2 Saturation 91.5 L (94-97) % Hemoglobin 10.2 L (13.0-17.5) gm/dL Sodium (137-145) mmol/L Potassium (3.5-5.1) mmol/L Chloride (98-107) mmol/L Carbon Dioxide (22-30) mmol/L BUN (9-20) mg/dL Creatinine (0.66-1.25) mg/dL Glucose (74-99) mg/dL POC Glucose (mg/dL) (70-110) mg/dL Calcium (8.4-10.2) mg/dL Magnesium (1.6-2.3) mg/dL Assessment and Plan (1) Influenza A Current Visit: Yes Status: Acute Code(s): J10.1 - FLU DUE TO OTH IDENT INFLUENZA VIRUS W OTH RESP MANIFEST SNOMED Code(s): 582558326 (2) Leukocytosis Current Visit: Yes Status: Acute Code(s): D72.829 - ELEVATED WHITE BLOOD CELL COUNT, UNSPECIFIED SNOMED Code(s): 397464791 (3) Pneumonia Current Visit: No Status: Acute Code(s): J18.9 - PNEUMONIA, UNSPECIFIED ORGANISM SNOMED Code(s): 779422454 (4) Sepsis Current Visit: No Status: Acute Code(s): A41.9 - SEPSIS, UNSPECIFIED ORGANISM SNOMED Code(s): 60985833 Plan: 1patient presented to hospital with sepsis in this patient who did have hypotension requiring pressor support elevated white count source is multifactorial possible component of pneumonia with the sputum not showing Pseudomonas aeruginosa and recently did have a history of MRSA pneumonia for the patient has received adequate vancomycin which has been discontinued. 2 Patient with acute influenza A, patient completed 5-day course of Tamiflu. 3-patient did have worsening of his kidney function and has been started on hemodialysis, nephrology is following the patient 4- patient is afebrile patient white count slightly up today possible related to the steroids, patient blood culture have been negative sputum culture positive for Pseudomonas aeruginosa 4patient will complete a 10-day course of cefepime today and will monitor clinical course closely Dictation was produced using [employer] dictation software. please excuse any grammatical, word or spelling errors. Time with Patient: Less than 30
--- NOTE | 2024-12-17 13:03 | P.PN ---
Subjective Progress Note Date: 12/17/24 Principal diagnosis: Reason for follow-up is acute influenza A/Pseudomonas pneumonia Patient is a 84-year-old male with a past medical history significant for atrial fibrillation diabetes mellitus DVT hypertension hyperlipidemia recent admission to the hospital diagnosed with MRSA bacteremia source was likely pneumonia, did have a negative LIS presenting back to the hospital for increasing shortness of breath has been diagnosed with sepsis secondary pneumonia also tested positive for influenza A sputum showing Pseudomonas. On today's evaluation that is 12/17/2024, Patient is afebrile this morning patient, remains to be debated on the vent patient is a requiring low-dose pressor support, patient is hemodynamically stable, FiO2 at 50% and no significant purulent secretion through the ET Patient white count slightly up to 21.6 creatinine is 3.80 chest x-ray from this morning small right effusion with right basilar opacity Objective - Vital Signs Vital signs: Vital Signs Temp 97.8 F 12/17/24 08:00 Pulse 141 H 12/17/24 12:30 Resp 27 H 12/17/24 12:30 BP 131/87 12/17/24 05:00 Pulse Ox 93 L 12/17/24 12:30 FiO2 50 12/17/24 12:00 Intake & Output 12/16/24 12/17/24 12/17/24 18:59 06:59 18:59 Intake Total 1725.906 735.931 430.423 Output Total 6010 13 0 Balance -4284.094 722.931 430.423 Weight 128.7 kg 126.9 kg Intake: IV 299 233 78 Pressure Bag 39 33 18 kvo 260 200 60 Intake, IV Titration 341.906 102.931 77.423 Amount Norepinephrine 4 mg In 254.000 102.931 77.423 Sodium Chloride 0.9% 250 ml @ 0.03 MCG/KG/MIN 12. 443 mls/hr IV .[id number] [facility]RIANA Rx#:[id number] propofoL 1,000 mg In 87.906 Empty Bag 1 bag @ 15 MCG/ KG/MIN 9.798 mls/hr IV . [id number] BRIANA Rx#:[id number] Oral 0 Tube Feeding 325 250 125 Blood Product 0 Hemodialysis 400 Other 360 150 150 Output: Urine 10 13 0 Hemodialysis 3200 Hemodialysis Net Amount 2800 Other: Voiding Method Indwelling Catheter Indwelling Catheter Indwelling Catheter # Bowel Movements 1 1 ABP, PAP, CO, CI - Last Documented Arterial Blood Pressure 101/93 - Exam GENERAL DESCRIPTION: An elderly male intubated on the vent RESPIRATORY SYSTEM: Unlabored breathing , decreased breath sounds at bases HEART: S1 S2 regular rate and rhythm , ABDOMEN: Soft , no tenderness EXTREMITIES: Mild swelling to the leg no redness - Labs CBC & Chem 7: 12/17/24 05:00 12/17/24 05:00 Labs: Abnormal Lab Results - Last 24 Hours (Table) 12/16/24 12/16/24 12/16/24 Range/Units 14:55 17:29 23:31 WBC (3.8-10.6) k/uL RBC (4.30-5.90) m/uL Hgb (13.0-17.5) gm/dL Hct (39.0-53.0) % RDW (11.5-15.5) % Plt Count (150-450) k/uL Neutrophils # (1.3-7.7) k/uL Lymphocytes # (1.0-4.8) k/uL ABG pCO2 (35-45) mmHg ABG pO2 64 L (83-108) mmHg ABG HCO3 (21-25) mmol/L ABG O2 Saturation 91.5 L (94-97) % Hemoglobin 10.2 L (13.0-17.5) gm/dL Sodium (137-145) mmol/L Potassium (3.5-5.1) mmol/L Chloride (98-107) mmol/L Carbon Dioxide (22-30) mmol/L BUN (9-20) mg/dL Creatinine (0.66-1.25) mg/dL Glucose (74-99) mg/dL POC Glucose (mg/dL) 116 H 113 H (70-110) mg/dL Calcium (8.4-10.2) mg/dL Magnesium (1.6-2.3) mg/dL 12/17/24 12/17/24 12/17/24 Range/Units 04:17 05:00 05:00 WBC 21.6 H (3.8-10.6) k/uL RBC 3.34 L (4.30-5.90) m/uL Hgb 9.4 L (13.0-17.5) gm/dL Hct 28.3 L (39.0-53.0) % RDW 16.1 H (11.5-15.5) % Plt Count 103 L (150-450) k/uL Neutrophils # 20.7 H (1.3-7.7) k/uL Lymphocytes # 0.1 L (1.0-4.8) k/uL ABG pCO2 32 L (35-45) mmHg ABG pO2 64 L (83-108) mmHg ABG HCO3 19 L (21-25) mmol/L ABG O2 Saturation 91.0 L (94-97) % Hemoglobin 10.4 L (13.0-17.5) gm/dL Sodium 124 L (137-145) mmol/L Potassium 5.8 H (3.5-5.1) mmol/L Chloride 92 L (98-107) mmol/L Carbon Dioxide 18 L (22-30) mmol/L BUN 100 H (9-20) mg/dL Creatinine 3.80 H (0.66-1.25) mg/dL Glucose 116 H (74-99) mg/dL POC Glucose (mg/dL) (70-110) mg/dL Calcium 7.6 L (8.4-10.2) mg/dL Magnesium 2.5 H (1.6-2.3) mg/dL Assessment and Plan (1) Influenza A Current Visit: Yes Status: Acute Code(s): J10.1 - FLU DUE TO OTH IDENT INFLUENZA VIRUS W OTH RESP MANIFEST SNOMED Code(s): 337981781 (2) Leukocytosis Current Visit: Yes Status: Acute Code(s): D72.829 - ELEVATED WHITE BLOOD C ELL COUNT, UNSPECIFIED SNOMED Code(s): 883124922 (3) Pneumonia Current Visit: No Status: Acute Code(s): J18.9 - PNEUMONIA, UNSPECIFIED ORGANISM SNOMED Code(s): 320080228 (4) Sepsis Current Visit: No Status: Acute Code(s): A41.9 - SEPSIS, UNSPECIFIED OR GANISM SNOMED Code(s): 79009479 Plan: 1patient presented to hospital with sepsis in this patient who did have hypotension requiring pressor support elevated white count source is multifactorial possible component of pneumonia with the sputum not showing Pseudomonas aeruginosa and recently did have a history of MRSA pneumonia for the patient has received adequate vancomycin which has been discontinued. 2 Patient with acute influenza A, patient completed 5-day course of Tamiflu. 3-patient did have worsening of his kidney function and has been started on hemodialysis, nephrology is following the patient 4- patient has completed a 10-day course of cefepime as of 12/16/2024 patient remains to be afebrile white count is trending down and will monitor closely off antibiotic at this point Dictation was produced using [employer] dictation software. please excuse any grammatical, word or spelling errors. Time with Patient: Less than 30
--- NOTE | 2024-12-17 13:39 | P.PN ---
Subjective Progress Note Date: 12/17/24 This is an 84-year-old white male familiar to my service, patient was recently seen in the hospital for MRSA bacteremia, workup for endocarditis and transesophageal echocardiogram was unremarkable and there was no evidence of vegetations. Patient was discharged to correction on vancomycin and he had a PICC line in place. His transesophageal echo on his last admission showed ejection fraction of 45%, patient is also known to have history of paroxysmal atrial fibrillation as well as history of hereditary factor VIII deficiency. In addition to all of this the patient is known to have history of mild COPD, hiatal hernia, hypertension, and yesterday correction was concerned about the patient having episodes of shortness of breath. Patient received diuretics, received bronchodilators, this was done upon arrival to the ER, patient developed worsening atrial fibrillation with RVR. I was notified about this patient from the ER, initially recommended amiodarone and amiodarone drip because of his atrial fibrillation with RVR, cardiology was consulted, his oxygenation while in the ER was getting worse in spite of diuretics his chest x- ray did not show any evidence of significant pulmonary edema, patient was intubated shortly after upon my recommendation, and arrangements made for the patient to transfer to the ICU late at night. In the meantime patient was noted to have leukocytosis, WBC count as high as 43.6, hemoglobin was 12.2. Basic metabolic profile was normal except for slightly low bicarb of 18 BUN 35 creatinine 1.28. Chest x-ray this morning showed normal pulmonary vasculature there was no clear-cut evidence of pneumonia or any pleural effusion, no evidence of congestive heart failure, patient did receive multiple fluid boluses yesterday for low blood pressure after intubation. Today the patient is on assist-control rate of 24 tidal volume 500 FiO2 90% and PEEP of 8 which I increased to 10 ABG remains marginal with a pO2 of 85 pCO2 44 pH of 7.31 patient has been on Xarelto for history of chronic atrial fibrillation presently I would recommend that we place the patient on heparin, patient is still receiving amiodarone at 0.5 mg/min he is also on norepinephrine at 0.06 mcg/kg/min propofol at 50 mcg/kg/min IV fluid 100 cc/h 0.9 normal saline. Went ahead and establish a right radial arterial line, patient does have a PICC line in place hence no need to change PICC line unless the patient comes back with positive blood cultures. In the meantime we are recommending cefepime and vancomycin. 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 Knowing this, possibility of pulmonary embolism is likely and I am recommending that we heparinized the patient for now, once his renal functioning improved may consider sending him down for a CT angiogram of the chest. Seen today on 12/08/2024, patient remains in the ICU, intubated mechanically ventilated, he is on assist-control rate of 24 tidal volume 500 FiO2 90% PEEP of 12 ABG showed a pO2 of 125 pCO2 50 pH of 7.25 hence tidal volume was increased to 550, FiO2 was cut down to 60%, kept the PEEP at 12. Chest x-ray is showing evidence of worsening interstitial edema. Patient is on diuretics Lasix 80 mg IV push twice daily. Patient is still requiring pressors he is on norepinephrine at 0.06 mcg/kg/min propofol at 30 mcg/kg/min IV fluid was 100 cc/h, however considering his chest x-ray I recommended we cut it down to KVO. Patient remains on amiodarone at 0.5 mg/min antibiotics schaefer he is on cefepime and vancomycin patient had recent MRSA bacteremia he is also on Tamiflu for acute influenza. For his DVT and possible pulmonary embolism patient remains on heparin as per protocol. Patient is sedated, still hemodynamically unstable requiring norepinephrine, patient is receiving GI DVT prophylaxis is also on enteral feeding for nutritional support. Blood cultures are still pending no plans to address weaning today since the patient is still requiring relatively high FiO2 and high PEEP. Renal functioning seems to be a bit worse, being addressed by nephrology on the case. Patient may have developed acute kidney injury, likely cardiorenal in nature. And could be related to his low blood pressure on presentation /acute tubular necrosis. 12/09/2024: Patient remains in the ICU, intubated mechanically ventilated, he is on assist-control rate of rr 24 tidal volume 550, peep at 12, fio2 60. ABG showed pO2 of 72, pCO2 43, and pH of 7.32. Overnight heart rate was in the 140s, Dr. Taylor was called and he gave Lopressor PO. CXR showing evidence of stable interstitial pattern with small effusion and basilar subsegmental consolidation. Patient had lower extremity Doppler on 12/07 showing chronic nonoccluding right lower extremity DVT for which she remains on heparin as per protocol. Patient is sedated, still hemodynamically unstable requiring norepinephrine, patient is receiving GI DVT prophylaxis and is also on enteral feeding 25 at goal. Fluid balance is approximately positive 1 L in the last 24 hours. Levo at 7.63 mg/min, heprin at 10, amio at .5, prop 50. Lasix at 80 IV BID. Preliminary Gram stain showed Pseudomonas and blood cultures have been negative through 48 hours. . Creatinine today 2.58 which is increased from yesterday of 1.89. Nephrology is following, they added 2 amp sodium bicarb IV push yesterday and stopped Cozaar, Aldactone, and Farxiga. Nephrology considers DEENA secondary to ATN secondary to septic shock as patient's baseline creatinine is usually near 1. Progress note dated December 10, 2024. 84-year-old male seen today in room 254. He remains on the mechanical ventilator. He is on volume assist-control mode, rate 24, tidal volume 450, FiO2 60%, PEEP of 12. Blood gases show a pO2 of 75, pCO2 of 53, pH of 7.23. The patient is getting saline at 20 cc an hour, propofol at 20 mcg/kg/min, Levophed at 2 mcg/min. In addition, the patient is getting heparin via weight- based protocol, and vital AF at 25 cc an hour which is goal. The patient con tinues on Tamiflu, and cefepime. His peak airway pressures 33, with a plateau pressure of 22. Current labs include a white count of 27.5, hemoglobin 11.6, hematocrit 36.2, and a platelet count of 139,000. PTT is 46.6. Sodium 134, potassium 4.8, chlorides 101, CO2 21, BUN 68, and creatinine 3.51. Glucose is 136. Calcium is 8. Sputum from December 06 is positive for Pseudomonas aeruginosa. Chest x-ray earlier from this morning, shows a stable interstitial pattern with small effusion. Chest x-ray after central line insertion shows a properly placed central line, with the tip of the catheter at the junction of superior vena cava and right atrium. Progress note dated December 11, 2024. 84-year-old male seen today in room 254. He remains on the mechanical ventilator. He is on volume assist-control mode, rate 28, tidal volume of 450, FiO2 60%, and PEEP of 12. His peak airway pressure is 29, with a plateau pressure of 22. Blood gases show pH 7.2, pCO2 51, pO2 96. The patient is get ting NS at 20 cc/h and propofol at 40 mcg/kg/min, no levo since 4 AM this morning. In addition the patient is off heparin currently due to bleeding around central line that was placed yesterday.Vital AF at 25 cc an hour and a goal of 35. The patient continues on cefepime (day 3) and completed Tamiflu. Current labs include WBC of 18.6, hemoglobin of 10.8, hematocrit of 34.7, and platelet count of 115,000. Sodium is 131, potassium 5.5, chloride 100, BUN 89, and creatinine 4.26. Glucose is 138. Calcium 7.9. Urine output remains poor, 690 mL over the last 24 hours. Chest x-ray from earlier from this morning shows blunting of the costophrenic angle, cardiomegaly, pulmonary vascular congestion and bilateral pleural effusions. Patient getting dialysis catheter placed this morning. Progress note dated December 12, 2024. 84-year-old male seen today in room 254. No significant overnight events, yesterday had dialysis catheter placed and received first round of dialysis. He remains on the mechanical ventilator. He is on volume assist-control mode,rr 28, tv 450, fio2 60%, and peep 12. The delta between the peak airway pressure and plateau pressure was 11. Blood gases show pO2 of 74, pCO2 56, and pH of 7.21 the patient is getting NS at 10ml/hr and propofol at 60. Patient is on lev o at 0.05. Currently heparin drip on hold. Vital AF at 35. The patient continues on cefepime (day 4) and completed Tamiflu already. Current labs include WBC of 25.8, hemoglobin of 11, platelet count of 122,000, sodium 128, potassium 6, bicarb 20, BUN 81, creatinine 4.31, glucose 123, and calcium 7.7. They took off 1.5 L during hemodialysis yesterday. Chest x-ray shows stable/potentially slightly worsening right basilar airspace opacities.` Progress note dated December 13, 2024. 84-year-old male seen today in room 254. No significant overnight events, yesterday received another round of dialysis. Plan is to receive dialysis again today, potentially sled. He remains on mechanical ventilator on volume assist- control mode with a respiratory rate of 28, tidal volume of 450, FiO2 60%, and PEEP of 12. The delta between the peak airway pressure and plateau pressure was 10. Patient noted to have significant cuff leak. Blood gases show pO2 106, pCO2 48, and pH 7.25. The patient is getting NS@10 mL/h and propofol at 60. Patient is on levo at 11.4 mcg/min. Patient remains off heparin for 2 days now after having bleeding from central line. Getting vital AF at 35 which is goal. On amiodarone 200 twice daily and Lopressor 25 3 times daily for A-fib. Patient continues on cefepime (day 5) and has already completed 5-day course Tamiflu. Current labs include WBC of 26.6, hemoglobin of 10.6, platelet count 107,000, sodium 127, potassium 5.9, bicarb 19, BUN 83, creatinine 3.94, calcium 7.8, and albumin 2.5. They took off 1.5 L during hemodialysis yesterday. Chest x-ray sh ows improvement from prior in the right lower lobe, stable left pleural effusion still noted. Progress note dated December 14, 2024. 84-year-old male seen today in room 254. No significant overnight events, yesterday received sled and took off 2.4L. Patient remains on mechanical ventilator on volume assist-control mode with respiratory rate of 28, tidal volume 450, FiO2 50%, and PEEP of 10. The delta between the peak airway pressure and plateau pressure was 8. Blood gases show pCO2 75, pCO2 47, and pH 7.29. The patient is getting NS@10 mL/h and propofol at 60 mcg/kg/min. Patient was on levo at 9 mcg/min. For DVT prophylaxis patient is on Lovenox SQ 40 daily. Getting vital AF at 25 which is goal. On amiodarone 200 mg twice daily and Lopressor 25 mg 3 times daily for A-fib. Patient continues on cefepime (day 6). Current labs include WBC 21.6, hemoglobin 10.3, platelet count 90,000, sodium 127, potassium 5.4, BUN 70, creatinine 3.21, calcium 7.9. They took off 2.4 L yesterday during dialysis. Chest x-ray shows no significant interval change in the pulmonary vascular congestion and bilateral small pleural effusions. On December 15, 2024 in follow-up in the intensive care unit. He remains intubated on mechanical ventilator. Currently assist-control mode with a respir atory rate of 28, tidal line 450, FiO2 50% and a PEEP of 10. Morning blood gases revealed a PaO2 of 61, pCO2 43 and a pH of 7.33. Chest x-ray continues to show a right lower lobe infiltrate. He is having episodes of desaturations while being repositioned by staff. He is sedated on propofol at 45 mcg/kg/min. Requiring norepinephrine at 2.5 mcg/mi. Normal saline at 20 mL/h. He is being nourished with vital AF at 25 mL/h which is goal. He remains on cefepime for his Pseudomonas aeruginosa positive sputum , completed 7 days course. Blood cultures revealed no growth. White count 18.7. Hemoglobin 10.1. Platelets 87,000. Sodium 125. Potassium 5.1. Bicarb 21. BUN 73. Creatinine 2.98. Glucose 126. He remains on DuoNeb inhalations, Solu-Medrol, Pulmicort inhalations. Anticoagulated with Eliquis. on 12/16/2024, the patient remains intubated on the mechanical ventilator. A [age]-year-old male patient who had a recent hospitalization for a MRSA sepsis discharged to ECF to receive IV vancomycin treatment via PICC line in an ECF. Noted his endocarditis workup was negative. The patient is known to have COPD, hypertension in addition to a combination of other comorbidities which include chronic A-fib, BPH, previous history of DVT, hypertension and he underwent a recent right hip arthroplasty on 10/25/2024. He also has mild chronic systolic heart failure with an EF of around 40 to 45% and his endocarditis workup was negative. Other comorbidities include BPH, nephrolithiasis with previous bilateral ureteral stent placement and previous history of frequent urine tract infection. During this current admission, the patient had a COPD exacerbation with influenza A positive and subsequently he developed pseudomonal pneumonia. At this point in time, the patient is intubated on mechanical ventilator. He was intubated on the day of admission and he remains on assist-control mode of mechanical ventilation at rate of 28, tidal volume of 450, FiO2 of 50% with a PEEP of 10. Blood gas showed pH of 7.28 with a pCO2 of 41 and pO2 of 65. Most recent sputum samples from 12/06/2024 was positive for Pseudomonas aeruginosa and the patient remains on IV cefepime. Blood cultures were essentially negative. Chest x-ray from today shows interstitial bilateral pulmonary filtrates essentially involving the lower lobes. Tube is in a good location. No airspace disease or consolidations. Remains on DuoNeb nebulized treatments [id number]. Remains on IV Solu-Medrol 60 mg every 6 hours. This morning, he is sedated on propofol which is running at 45 mcg/kg/min. He is on vital AF at rate of 25 cc an hour which is at goal. He is also off pressors . Noted during the course of this current admission, the patient sustained an acute kidney injury. He was seen by nephrology and started on hemodialysis. The patient is receiving hemodialysis periodically. Most recent labs from today showing a sodium level of 123, potassium of 5.8, bicarb of 17, BUN of 102 and a creatinine of 4.07. The CBC shows a white cell count of 23 with a hemoglobin 10.2 and a platelet count of 107. The fluid balance over the past 24 hours is +2.5 L. Patient patient is in A-fib with a controlled rate. He is on metoprolol for rate control. He is also on amiodarone 200 mg p.o. twice a day and anticoagulation with Eliquis 2.5 mg p.o. twice a day. He is on IV Protonix. Last HD was on 12/14/24 and he is planned to have HD today and he is anuric. On 12/17/2024, the patient is being seen for a follow-up. The patient has been off sedation for the past 24 hours. Neurologically, remains deeply sedated and unresponsive. Does not respond to deep painful stimulation despite being off sedation for the past 24 hours. At the same time, the patient has been switched to a pressure control mode of mechanical ventilator. Remains intubated on the mechanical ventilator with a pressure control mode at rate of 20, pressure control of 20 cm of water with a inspiratory time of 0.8 and an FiO2 of 50% with a PEEP of 8. Blood gas showed a pH of 7.39 with a pCO2 of 32 and pO2 of 64. Chest x-ray findings from today are essentially unchanged and the patient continues to have stable right basilar patchy airspace opacities and pulm vascular congestion. The patient also has a small right-sided pleural effusion and stable positioning of the lines and tubes. Hemodynamically, the patient is requiring low-dose norepinephrine which is running at 0.03 mcg/kg/min. The patient remains in atrial fibrillation with a controlled rate. The patient underwent hemodialysis yesterday and a total of 3.8 L of ultrafiltration was performed. The patient is on enteral feeding for nutritional support with vital AF at rate of 25 cc an hour. Blood work from today shows a white cell count of 21.6 with a hemoglobin 9.4 and a platelet count of 103. The sodium is at 124, potassium is at 5.8, bicarb is at 18 with a BUN of 100 and a creatinine of 3.8. Chloride is at 92. Afebrile. No other significant events overnight. In terms of atrial fibrillation, the patient is currently on amiodarone 20 mg p.o. twice daily, metoprolol 25 mg p.o. 3 times daily and the patient remains on anticoagulation with Eliquis. Had a lengthy discussion with the family. The family showed no interest hours long-term vent care, then no interest towers tracheostomy or PEG tube insertion. Objective - Vital Signs Vital signs: Vital Signs Temp 97.8 F 12/17/24 08:00 Pulse 108 H 12/17/24 09:00 Resp 28 H 12/17/24 09:00 BP 131/87 12/17/24 05:00 Pulse Ox 90 L 12/17/24 09:00 FiO2 50 12/17/24 08:00 Intake & Output 12/16/24 12/17/24 12/17/24 18:59 06:59 18:59 Intake Total 1725.906 735.931 209 Output Total 6010 13 0 Balance -4284.094 722.931 209 Weight 128.7 kg 126.9 kg Intake: IV 299 233 39 Pressure Bag 39 33 9 kvo 260 200 30 Intake, IV Titration 341.906 102.931 Amount Norepinephrine 4 mg In 254.000 102.931 Sodium Chloride 0.9% 250 ml @ 0.03 MCG/KG/MIN 12. 443 mls/hr IV .[id number] BRIANA Rx#:[id number] propofoL 1,000 mg In 87.906 Empty Bag 1 bag @ 15 MCG/ KG/MIN 9.798 mls/hr IV . [id number] BRIANA Rx#:[id number] Oral 0 Tube Feeding 325 250 50 Blood Product 0 Hemodialysis 400 Other 360 150 120 Output: Urine 10 13 0 Hemodialysis 3200 Hemodialysis Net Amount 2800 Other: Voiding Method Indwelling Catheter Indwelling Catheter Indwelling Catheter # Bowel Movements 1 1 ABP, PAP, CO, CI - Last Documented Arterial Blood Pressure 119/53 - Exam GENERAL EXAM: Intubated, sedated 84-year-old male patient, in no apparent distress. Intubated on mechanical ventilator. Orogastric and orotracheal tube are both in place. Peak airway pressure is around 24 HEAD: Normocephalic. EYES: Sluggish reaction of pupils, equal size. NOSE: Clear with pink turbinates. THROAT: Oral endotracheal and gastric tube secured in place, no erythema or exudates. NECK: Left IJ triple-lumen catheter in place. No masses, no JVD. CHEST: No chest wall deformity. LUNGS: Equal air entry with bilateral scattered rhonchi. CVS: S1 and S2 normal with no audible murmur, regular rhythm. ABDOMEN: No hepatosplenomegaly, normal bowel sounds, no guarding or rigidity. SPINE: No scoliosis or deformity SKIN: No rashes CENTRAL NERVOUS SYSTEM: No focal deficits, tone is normal in all 4 extremities. EXTREMITIES: Right radial arterial line in place. There is 1+ peripheral edema. No clubbing, no cyanosis. Peripheral pulses are intact. - Labs CBC & Chem 7: 12/17/24 05:00 12/17/24 05:00 Labs: Abnormal Lab Results - Last 24 Hours (Table) 12/16/24 12/16/24 12/16/24 Range/Units 14:55 17:29 23:31 WBC (3.8-10.6) k/uL RBC (4.30-5.90) m/uL Hgb (13.0-17.5) gm/dL Hct (39.0-53.0) % RDW (11.5-15.5) % Plt Count (150-450) k/uL Neutrophils # (1.3-7.7) k/uL Lymphocytes # (1.0-4.8) k/uL ABG pCO2 (35-45) mmHg ABG pO2 64 L (83-108) mmHg ABG HCO3 (21-25) mmol/L ABG O2 Saturation 91.5 L (94-97) % Hemoglobin 10.2 L (13.0-17.5) gm/dL Sodium (137-145) mmol/L Potassium (3.5-5.1) mmol/L Chloride (98-107) mmol/L Carbon Dioxide (22-30) mmol/L BUN (9-20) mg/dL Creatinine (0.66-1.25) mg/dL Glucose (74-99) mg/dL POC Glucose (mg/dL) 116 H 113 H (70-110) mg/dL Calcium (8.4-10.2) mg/dL Magnesium (1.6-2.3) mg/dL 12/17/24 12/17/24 12/17/24 Range/Units 04:17 05:00 05:00 WBC 21.6 H (3.8-10.6) k/uL RBC 3.34 L (4.30-5.90) m/uL Hgb 9.4 L (13.0-17.5) gm/dL Hct 28.3 L (39.0-53.0) % RDW 16.1 H (11.5-15.5) % Plt Count 103 L (150-450) k/uL Neutrophils # 20.7 H (1.3-7.7) k/uL Lymphocytes # 0.1 L (1.0-4.8) k/uL ABG pCO2 32 L (35-45) mmHg ABG pO2 64 L (83-108) mmHg ABG HCO3 19 L (21-25) mmol/L ABG O2 Saturation 91.0 L (94-97) % Hemoglobin 10.4 L (13.0-17.5) gm/dL Sodium 124 L (137-145) mmol/L Potassium 5.8 H (3.5-5.1) mmol/L Chloride 92 L (98-107) mmol/L Carbon Dioxide 18 L (22-30) mmol/L BUN 100 H (9-20) mg/dL Creatinine 3.80 H (0.66-1.25) mg/dL Glucose 116 H (74-99) mg/dL POC Glucose (mg/dL) (70-110) mg/dL Calcium 7.6 L (8.4-10.2) mg/dL Magnesium 2.5 H (1.6-2.3) mg/dL Assessment and Plan Plan: Acute hypoxemic respiratory failure secondary to suspected healthcare acquired pneumonia, sputum culture positive for Pseudomonas aeruginosa currently maintained on mechanical ventilation, intubated on 12/06/2024. Completed the course of cefepime. The patient remains on the mechanical ventilator, pressure control mode.. Chest x-ray findings are stable and unchanged. The patient was taken off the sedation. Remains unresponsive. Persistent sepsis and septic shock, secondary to MRSA bacteremia persistent positive blood cultures on 11/25/2024. Follow-up blood cultures revealed no growth, the patient is currently off pressors Recent discharge on 12/04/2024 to an ECF with PICC line and vancomycin in the LLE Moderate LV dysfunction, with diffuse interstitial edema Acute kidney injury secondary to hypotension, and possible acute tubular necrosis, currently on hemodialysis, left femoral HD cath History of atrial fibrillation with RVR, anticoagulated with Eliquis, maintained on a combination of amiodarone 200 mg p.o. twice a day, metoprolol anticoagulation with Eliquis Acute on chronic systolic congestive heart failure COPD exacerbation, he remains on DuoNeb updrafts and IV Solu-Medrol History of BPH History of factor VIII deficiency Possible pulmonary embolism History of DVT Benign essential hypertension Acute influenza A infection, completed a course of Tamiflu History of previous right total hip arthroplasty Plan: Keep the patient off sedation Continue bronchodilators Continue IV Solu-Medrol to 40 mg every 12 hours No ventilator changes for today Follow-up blood gases were noted Completed the course of cefepime Hemodialysis to performed yesterday another session to be done today Controlled atrial fibrillation Continue amiodarone and metoprolol Anticoagulated with Eliquis Being nourished with vital AF at goal Family is not interested in tracheostomy or PEG tube insertion Family was updated on his condition Condition remains critical. Will continue to follow. This evaluation was done more than 30 minutes. Time with Patient: Greater than 30
--- NOTE | 2024-12-17 14:26 | P.PN ---
Subjective Progress Note Date: 12/17/24 HISTORY OF PRESENT ILLNESS This is a 84-year-old male with past medical history of hypertension, paroxysmal atrial fibrillation on Xarelto, benign prostatic hypertrophy, hiatal hernia, hereditary factor VIII deficiency, hyperlipidemia, mild intermittent asthma, mild COPD, patient was recently admitted to [facility] after he underwent right total hip arthroplasty that was done by Dr. Thakkar and he has been at [facility] for physical therapy rehabilitation, patient was recently hospitalized at [facility] from November 25 of December 04 after he was admitted for what appears to be right lower lobe pneumonia appears to be MRSA pneumonia, initially was started on vancomycin as well as cefepime was seen in consultation by pulm medicine as well as cardiology, he had a significant MRSA bacteremia, that responded very well to vancomycin, patient ended up going for transesophageal echocardiogram that did not show evidence of any vegetation, it did show evidence of 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%, patient was sent to [facility] December 04, 2024 while he was there he was requiring about 5 L nasal cannula of oxygen, I received a phone call from the nursing staff stating that the patient is in acute respiratory distress today, he was given 60 mg IM of Lasix as well as 80 mg IM of Solu-Medrol with nebulizer treatment along with Pulmicort and DuoNeb, without any relief, he was placed on nonrebreather, and patient was sent to the ER for evaluation, he was found to have a significant leukocytosis with a white count of 36,000, his swab came back positive for influenza A, and chest x-ray showed evidence of cardiomegaly as well as basilar pneumonia patient was started back on his vancomycin as well as cefepime he was started on Tamiflu, he was started on Lasix 80 mg IV push every 12 hours, along with Solu-Medrol 60 mg IV push every 6 hours, DuoNeb nebulization 4 times every day Pulmicort 1 mg nebulization twice every day he is currently on BiPAP, pulmonary consultation as well as cardiology consultation. Sputum culture will be obtained as well as blood cultures. 12/07: While the patient yesterday in the emergency department he went into severe respiratory distress while he was on the BiPAP, he did receive 1 dose of Lasix 80 mg IV push, along with Solu-Medrol 60 mg IV push along with nebulized treatment in the form of DuoNeb as well as Pulmicort, without relief, at that time the decision was made for the patient to be intubated and transferred to the intensive care unit from the emergency department, patient is currently sedated on the ventilator, he is currently on amiodarone drip, as well as propofol drip, he is on 90% FiO2, with a PEEP of 5, pulmonary/critical care is following the patient very closely, cardiology is following as well, patient was started on IV antibiotic in the form of vancomycin as well as cefepime, he was started on Tamiflu as well due to influenza A, his white count initially was elevated at 43,000 down to 38,000, patient appears quite sick at this point in time, his prognosis continue be guarded, will continue with aggressive treatment plan for now, we will follow-up with the patient very closely. 12/08: Patient is laying down in bed he continues to be on the ventilator, currently FiO2 of 60%, PEEP of 12, tidal volume of 550, he continues to have a significant edema both upper and lower extremities, he is not getting any more IV fluid, will wean down his Levophed drip, continue IV antibiotic in the form of vancomycin as well as cefepime, sputum cultures growing Pseudomonas aeruginosa, currently on cefepime as well as vancomycin with pharmacy to dose to be controlled, continue also with Tamiflu for influenza A, patient was seen earlier by nephrology for acute kidney injury due to acute tubular necrosis and vasomotor nephropathy due to septic shock, continue current Lasix 80 mg IV push every 12 hours, monitor the patient input and output and daily weight, ultr asound of the kidney was obtained. 12/09: Patient is still intubated on the ventilator, he is currently on AC mode with a tidal volume of 550 respiration of 24, FiO2 of 60%, PEEP of 12, x-ray still showing evidence of pulmonary edema, he has been getting Lasix 80 mg IV push every 12 hours, he has an acute kidney injury that is getting worse today, his BUN and creatinine is elevated, nephrology is following, patient continues to be on Levophed, he has been on cefepime we will monitor the patient very closely, continue current treatment plan, will follow-up with the patient very closely, patient has been seen by nephrology, cardiology, as well as by pulmonary medicine and critical care, patient also was seen in consultation by infectious disease at this point in time, taken off vancomycin and Tamiflu due to acute kidney injury. 12/10: Patient is laying down in bed he continues to be on the ventilator, his current vent setting is FiO2 of 60%, respiratory rate is 24, tidal volume 450, and FiO2 of 60%, PEEP of 12, patient blood gases showed evidence of metabolic and respiratory acidosis with hypoxemia his pO2 is about 72 and pCO2 is 56, patient is getting a central line today, he continues to have worsening kidney function, will continue current treatment plan, continue follow-up with the patient very closely 12/11: Patient is laying down in bed continues to be sedated on the ventilator, worsening renal function his creatinine is up to 4.5, decreased urine output, was on lasix drip without improvement and he was started on HD today for 2 hours , patient continues to be treated with cefepime for Pseudomonas pneumonia, he continued to have a septic shock he is currently on Levophed, he is currently on propofol, his prognosis continues to be guarded, patient has underlying ca rdiomyopathy ejection fraction 45%, he continues to have atrial fibrillation for which she has been on amiodarone, patient has been followed by multiple specialties including ICU/pulmonary medicine, cardiology, nephrology, infectious disease, we will continue to follow-up with the patient very closely, he may require to have hemodialysis even for short period of time to improve his kidney function as well as fluid status. 12/12: Patient remains on the ventilator, his current tidal volume is 450 FiO2 of 60%, and a PEEP of 12, he is still requiring quite a bit of sedation he is still requiring Levophed to keep his pressure up, he is getting his edema hemodialysis for the second day today, his blood pressure is marginal, we discussed with the nursing staff increasing his Levophed little bit, but he is still in atrial fibrillation with rapid ventricular response, his urine output is minimal, trying to get another 500 cc out of his body today, chest x-ray still showing evidence of right lower lobe pneumonia, will follow-up with the patient very closely at this point patient prognosis continue to be guarded, I still think that the patient can turn around, we can continue with the current treatment plan continue with cefepime continue with aggressive pulmonary toileting, continue to follow-up with the patient very closely. 12/13: Patient is laying down in bed he continues to be on the ventilator, with the AC mode, tidal volume of 450, respiratory rate of 28, FiO2 50%, PEEP of 12, chest x-ray continues to show some signs of pneumonia in the right lower lobe, minimal pulmonary vascular congestion as well, he is getting dialysis for the third day in the room, his blood pressure appears to be marginal at this time, hopefully will increase his Levophed little bit for the patient to go for dialysis at this point in time, he continues to improve slowly, he continues to be on Levophed, he continues to be on cefepime, he has been followed by multiple specialty, we will continue with the feeding tube he is currently at 35 mL/h, he seems to be tolerating this very well. 12/14--patient was seen and examined today. Remains on Levophed. Remains intubated and sedated. Underwent hemodialysis today. Vitals reviewed. WBCs 21.6, hemoglobin 10.3, platelet 92. Blood gases showed pH 7.29, pCO2 47, pO2 75. Sodium 127, potassium 5.4, BUN 70, creatinine 3.21. Infectious disease, ne phrology, ICU following. 12/15--patient was seen and examined today. Family at bedside. Levophed weaned off. Patient remains intubated and sedated. Nephrology infectious disease and ICU following. Currently on cefepime. Chest x-ray showed right lower lobe infiltrate. Patient on tube feeds. Nephrology planning for hemodialysis tomorrow. Cultures remain negative. Labs reviewed. Anticoagulated with Eliquis. 12/16: Patient's kidney function test continues to deteriorate, he is going for h emodialysis today, he is hypertensive today, he is 2.2 L fluid overload, is going for dialysis today, he was off Levophed, he continues to be on cefepime, his blood gases showed worsening hypoxemia, patient is not making much urine at this point in time, we will continue with hemodialysis at this point, due to acute kidney injury that is oliguric due to acute tubular necrosis as well as vasomotor nephropathy, nephrology is following, we will follow-up with the patient very closely, patient has been on the ventilator for 10 days, will discuss with the family whether or not they want to have a trach and PEG tube placement at this point in time. 12/17: Patient continues to be on the ventilator at this time, he is vent settings were AC mode tidal volume 450 FiO2 50% PEEP of +8, chest x-ray con tinues to show some congestion, positive for pneumonia as well, has been seen by pulmonary medicine and critical care, continue dialysis for now, mild hyponatremia and mild improvement in kidney function, however patient is oliguric still, if he continues to be on the ventilator he may need to go and have a PEG and trach placed otherwise if the patient is not able to come off the ventilator then we will discuss with the family whether or not the patient should go on comfort care. REVIEW OF SYSTEMS Patient is sedated on the ventilator. PHYSICAL EXAMINATION Gen: This is an obese 84-year-old is sedated on the ventilator HEENT: Head is atraumatic, normocephalic. Pupils equal, round. Sclerae is anicteric, there is an NG tube in place, and ET tube placed NECK: Supple. No JVD. No lymphadenopathy. No thyromegaly. LUNGS: decreased breath sound at bases, few rhonchi, minimal expiratory wheezes, no chest wall tenderness, no intercostal retractions. HEART: First heart sound is depressed, second heart sound is normal, 2/6 systolic ejection murmur at the left sternal border, irregular irregular due to atrial fibrillation. ABDOMEN: Soft. Bowel sounds are present. No masses. No tenderness. EXTREMITIES: +3 pedal edema. No calf tenderness. Pain in the left hip. Dorsalis pedis palpable bilaterally. NEUROLOGICAL: Patient is currently sedated on the ventilator. ASSESSMENT AND PLAN: 1. Acute vent dependent hypoxemic respiratory failure due to acute systolic heart failure as well as acute left lower lobe Pseudomonas pneumonia and influenza A. Continue Solu-Medrol 40 mg IV push every 12 hours, continue DuoNeb 3 mL nebulization every 4 hours, continue Pulmicort 1 mg nebulization twice every day, continue cefepime 1 g IV piggyback every 12 hours, monitor the patient symptoms very closely, patient is still requiring FiO2 down to 50%, PEEP is down to 8, tidal volume 450 and respiratory rate is 24. 2. Pseudomonas pneumonia with septic shock . Try to wean Levophed off continue IV antibiotic in the form of cefepime 1 g piggyback every 4 hours, continue oxygen support, try to wean FiO2 down, continue to monitor the patient very closely. Infectious disease consultation from Dr. Agosto is appreciated. Monitor the patient symptoms very closely, b blood cultures are negative. 3. Atrial fibrillation with rapid ventricular response. Discontinue amiodarone 200 mg orally twice every day, continue on metoprolol 25 mg orally 3 times every day, monitor the patient symptoms very closely. Continue Eliquis 2.5 mg orally twice every day. 4. 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 5. Acute kidney injury due to acute tubular necrosis with vasomotor nephropathy due to septic shock. Patient did not do well without hemodialysis his BUN is up to 100 and creatinine is up to 4.5, he is 2.2 L overload he is getting hemodialysis right now. 6. Anion gap antibiotic acidosis due to acute kidney injury monitor the patient symptoms very closely, continue with hemodialysis for now. 7. COPD exacerbation. Continue Solu-Medrol 40 mg IV push every 12 hours, continue Pulmicort 1 mg nebulization twice every day, DuoNeb 3 manipulation 4 times every day, oxygen support, currently on the ventilator. 8. Mild intermittent asthma. Continue Singulair 10 mg at bedtime, loratadine 10 mg once every day, continue aggressive pulmonary toileting. 9. Benign prostatic hypertrophy. Continue Flomax 0.4 mg currently has a Henry catheter in place. 10. Hereditary factor VIII deficiency. Patient was taken off heparin drip, he is currently on Eliquis 2.5 mg orally twice every day. 11. Hyperlipidemia. Continue Zetia 10 mg daily and Atorvastatin 40 mg once a day and Zetia 10 mg once every day. Monitor the patient lipid panel, keep LDL 55-70 12. Hypertension and hypertensive cardiovascular disease. patient blood pressure is soft at this time, continue metoprolol 25 mg orally 3 times every day. 13. GI prophylaxis. Protonix 40 mg IV push daily. 14. DVT prophylaxis. Continue with Eliquis 2.5 mg orally twice every day. 15. Major depressive disorder. Continue patient on Effexor XR 37.5 mg orally once every day. 16. Prognosis is guarded 17. Full code. Objective - Vital Signs Vital signs: Vital Signs Temp 97.8 F 12/17/24 08:00 Pulse 93 12/17/24 10:00 Resp 28 H 12/17/24 10:00 BP 131/87 12/17/24 05:00 Pulse Ox 91 L 12/17/24 10:00 FiO2 50 12/17/24 08:00 Intake & Output 12/16/24 12/17/24 12/17/24 18:59 06:59 18:59 Intake Total 1725.906 735.931 261.24 Output Total 6010 13 0 Balance -4284.094 722.931 261.24 Weight 128.7 kg 126.9 kg Intake: IV 299 233 52 Pressure Bag 39 33 12 kvo 260 200 40 Intake, IV Titration 341.906 102.931 14.24 Amount Norepinephrine 4 mg In 254.000 102.931 14.24 Sodium Chloride 0.9% 250 ml @ 0.03 MCG/KG/MIN 12. 443 mls/hr IV .[id number] [facility] Rx#:[id number] propofoL 1,000 mg In 87.906 Empty Bag 1 bag @ 15 MCG/ KG/MIN 9.798 mls/hr IV . [id number] [facility] Rx#:[id number] Oral 0 Tube Feeding 325 250 75 Blood Product 0 Hemodialysis 400 Other 360 150 120 Output: Urine 10 13 0 Hemodialysis 3200 Hemodialysis Net Amount 2800 Other: Voiding Method Indwelling Catheter Indwelling Catheter Indwelling Catheter # Bowel Movements 1 1 ABP, PAP, CO, CI - Last Documented Arterial Blood Pressure 124/52 - Labs CBC & Chem 7: 12/17/24 05:00 12/17/24 05:00 Labs: Abnormal Lab Results - Last 24 Hours (Table) 12/16/24 12/16/24 12/16/24 Range/Units 14:55 17:29 23:31 WBC (3.8-10.6) k/uL RBC (4.30-5.90) m/uL Hgb (13.0-17.5) gm/dL Hct (39.0-53.0) % RDW (11.5-15.5) % Plt Count (150-450) k/uL Neutrophils # (1.3-7.7) k/uL Lymphocytes # (1.0-4.8) k/uL ABG pCO2 (35-45) mmHg ABG pO2 64 L (83-108) mmHg ABG HCO3 (21-25) mmol/L ABG O2 Saturation 91.5 L (94-97) % Hemoglobin 10.2 L (13.0-17.5) gm/dL Sodium (137-145) mmol/L Potassium (3.5-5.1) mmol/L Chloride (98-107) mmol/L Carbon Dioxide (22-30) mmol/L BUN (9-20) mg/dL Creatinine (0.66-1.25) mg/dL Glucose (74-99) mg/dL POC Glucose (mg/dL) 116 H 113 H (70-110) mg/dL Calcium (8.4-10.2) mg/dL Magnesium (1.6-2.3) mg/dL 12/17/24 12/17/24 12/17/24 Range/Units 04:17 05:00 05:00 WBC 21.6 H (3.8-10.6) k/uL RBC 3.34 L (4.30-5.90) m/uL Hgb 9.4 L (13.0-17.5) gm/dL Hct 28.3 L (39.0-53.0) % RDW 16.1 H (11.5-15.5) % Plt Count 103 L (150-450) k/uL Neutrophils # 20.7 H (1.3-7.7) k/uL Lymphocytes # 0.1 L (1.0-4.8) k/uL ABG pCO2 32 L (35-45) mmHg ABG pO2 64 L (83-108) mmHg ABG HCO3 19 L (21-25) mmol/L ABG O2 Saturation 91.0 L (94-97) % Hemoglobin 10.4 L (13.0-17.5) gm/dL Sodium 124 L (137-145) mmol/L Potassium 5.8 H (3.5-5.1) mmol/L Chloride 92 L (98-107) mmol/L Carbon Dioxide 18 L (22-30) mmol/L BUN 100 H (9-20) mg/dL Creatinine 3.80 H (0.66-1.25) mg/dL Glucose 116 H (74-99) mg/dL POC Glucose (mg/dL) (70-110) mg/dL Calcium 7.6 L (8.4-10.2) mg/dL Magnesium 2.5 H (1.6-2.3) mg/dL
[2024-12-17 17:27] LABS: Glucose,Whole Blood 117 mg/dL (70-110)
[2024-12-18 00:02] LABS: Glucose,Whole Blood 140 mg/dL (70-110)
[2024-12-18 04:44] LABS: Glucose,Whole Blood 133 mg/dL (70-110)
[2024-12-18 04:48] LABS: ABG HCO3 21 mmol/L (21-25); ABG Oxygen Saturation 95.4 % (94-97); ABG PCO2 31 mmHg (35-45); ABG PH 7.44 (7.35-7.45); ABG PO2 79 mmHg (83-108); ABG TCO2 22 mmol/L (19-24)
[2024-12-18 05:30] LABS: Anion Gap 15 mmol/L; Blood Urea Nitrogen 94 mg/dL (9-20); Calcium 7.7 mg/dL (8.4-10.2); Carbon Dioxide 18 mmol/L (22-30); Chloride 94 mmol/L (98-107); Glucose 119 mg/dL (74-99); Potassium 5.7 mmol/L (3.5-5.1); Sodium 127 mmol/L (137-145)
[2024-12-18 05:32] LABS: Allen Test Performed? no
[2024-12-18 05:37] LABS: African American GFR (CKD) 17 (>60 ml/min/1.73 sqM); Non-African American GFR(CKD) 15 (>60 ml/min/1.73 sqM)
[2024-12-18 05:52] LABS: Anisocytosis Slight; Basophils % (A) 0 %; Eosinophils % (A) 0 %; HCT 29.2 % (39.0-53.0); HGB 9.9 gm/dL (13.0-17.5); Lymphocytes # (A) 0.2 k/uL (1.0-4.8); Lymphocytes % (A) 1 %; MCH 28.3 pg (25.0-35.0); MCHC 33.8 g/dL (31.0-37.0); MCV 83.6 fL (80.0-100.0); Mean Platelet Volume 10.4; Monocytes # (A) 0.4 k/uL (0-1.0); Monocytes % (A) 2 %; Neutrophils % (A) 96 %; Platelet Count 120 k/uL (150-450); RBC 3.49 m/uL (4.30-5.90); RDW 16.3 % (11.5-15.5); WBC 17.6 k/uL (3.8-10.6)
--- NOTE | 2024-12-18 07:08 | XR ---
EXAMINATION TYPE: XR chest 1V portable DATE OF EXAM: 12/18/2024 4:58 AM COMPARISON: Chest radiographs from TECHNIQUE: XR chest 1V portable . CLINICAL INDICATION:Male, 84 years old with history of mechanical ventilation; FINDINGS: Lungs/Pleura: No evidence of pneumothorax. Blunting of the right costophrenic angle angle with right basilar patchy airspace opacities. Pulmonary vascularity: Pulmonary vascular congestion. Heart/mediastinum: Cardiomediastinal silhouette is enlarged and stable. Atherosclerotic calcificatio ns are seen in the aorta. Musculoskeletal: No acute osseous pathology. Other findings: None Lines/Tubes: Endotracheal tube with distal tip 4.8 cm above the landen Nasogastric tube with its distal tip and side-port projecting under the diaphragm and projecting over the gastric lumen. Left-sided PICC with distal tip at the high SVC. Left IJ approach central venous catheter distal tip in the mid SVC. IMPRESSION: 1. Stable position of support lines and tubes. 2. Similar small right pleural effusion with pulmonary vascular congestion and right basilar patchy airspace opacities. [facility], , 12/18/2024 7:05 AM
--- NOTE | 2024-12-18 09:27 | P.PN ---
Subjective Progress Note Date: 12/18/24 The patient is an 84-year-old male with multiple comorbid conditions is currently admitted to the hospital with acute hypoxic respiratory failure and septic shock. Cardiology has been consulted for A-fib management. Patient is currently on oral amiodarone, beta-niraj, and anticoagulation. He remains s edated on ventilator. Patient continues to have heart rates in the low 90s to 1 teens. Patient's h eart rates elevate with dialysis. Levophed was turned off yesterday, however was turned back on this morning in preparation for dialysis. GENERAL: Ill-appearing, well-nourished and in no acute distress. Currently sedated on ventilator. NECK: Supple without JVD or thyromegaly. LUNGS: Breath sounds coarse to auscultation bilaterally. Respiration equal and unlabored. Bilateral rhonchi. HEART: Irregular rate and rhythm without murmurs, rubs or gallops. S1 and S2 heard. EXTREMITIES: Normal range of motion, +2-3 pitting edema. No clubbing or cyanosis. Peripheral pulses intact and strong. TELEMETRY: Atrial fibrillation with heart rates in the 1 teens IMPRESSION: Hypoxic respiratory failure Septic shock Persistent atrial fibrillation Thrombocytopenia Acute on chronic kidney disease, on dialysis Influenza A PLAN: Continue oral amiodarone Maximize beta-blockers as tolerated with blood pressure Patient's family considering comfort care with comorbid conditions Further recommendations to be based upon clinical course I am dictating on behalf of Dr Adama Arrieta's history/physical and a ssessment/plan. Objective - Vital Signs Vital signs: Vital Signs Temp 97.7 F 12/18/24 04:00 Pulse 111 H 12/18/24 09:00 Resp 20 12/18/24 09:00 BP 131/87 12/18/24 07:00 Pulse Ox 93 L 12/18/24 07:30 FiO2 50 12/18/24 08:39 Intake & Output 12/17/24 12/18/24 12/18/24 18:59 06:59 18:59 Intake Total 1338.612 669.672 120.449 Output Total 4200 20 0 Balance -2861.388 649.672 120.449 Weight 125 kg Intake: IV 183 143 26 Pressure Bag 33 33 6 kvo 150 110 20 Intake, IV Titration 265.612 186.672 14.449 Amount Norepinephrine 4 mg In 265.612 186.672 14.449 Sodium Chloride 0.9% 250 ml @ 0.03 MCG/KG/MIN 12. 443 mls/hr IV .[id number] [facility] Rx#:[id number] Oral 0 Tube Feeding 250 250 50 Hemodialysis 400 Other 240 90 30 Output: Urine 0 20 0 Hemodialysis 2300 Hemodialysis Net Amount 1900 Other: Voiding Method Indwelling Catheter Indwelling Catheter Indwelling Catheter ABP, PAP, CO, CI - Last Documented Arterial Blood Pressure 125/52 - Labs CBC & Chem 7: 12/18/24 04:41 12/18/24 04:41 Labs: Abnormal Lab Results - Last 24 Hours (Table) 12/17/24 12/18/24 12/18/24 Range/Units 17:26 00:01 04:41 WBC 17.6 H (3.8-10.6) k/uL RBC 3.49 L (4.30-5.90) m/uL Hgb 9.9 L (13.0-17.5) gm/dL Hct 29.2 L (39.0-53.0) % RDW 16.3 H (11.5-15.5) % Plt Count 120 L (150-450) k/uL Neutrophils # 17.0 H (1.3-7.7) k/uL Lymphocytes # 0.2 L (1.0-4.8) k/uL ABG pCO2 (35-45) mmHg ABG pO2 (83-108) mmHg Hemoglobin (13.0-17.5) gm/dL Sodium (137-145) mmol/L Potassium (3.5-5.1) mmol/L Chloride (98-107) mmol/L Carbon Dioxide (22-30) mmol/L BUN (9-20) mg/dL Creatinine (0.66-1.25) mg/dL Glucose (74-99) mg/dL POC Glucose (mg/dL) 117 H 140 H (70-110) mg/dL Calcium (8.4-10.2) mg/dL 12/18/24 12/18/24 12/18/24 Range/Units 04:41 04:42 04:47 WBC (3.8-10.6) k/uL RBC (4.30-5.90) m/uL Hgb (13.0-17.5) gm/dL Hct (39.0-53.0) % RDW (11.5-15.5) % Plt Count (150-450) k/uL Neutrophils # (1.3-7.7) k/uL Lymphocytes # (1.0-4.8) k/uL ABG pCO2 31 L (35-45) mmHg ABG pO2 79 L (83-108) mmHg Hemoglobin 9.7 L (13.0-17.5) gm/dL Sodium 127 L (137-145) mmol/L Potassium 5.7 H (3.5-5.1) mmol/L Chloride 94 L (98-107) mmol/L Carbon Dioxide 18 L (22-30) mmol/L BUN 94 H (9-20) mg/dL Creatinine 3.67 H (0.66-1.25) mg/dL Glucose 119 H (74-99) mg/dL POC Glucose (mg/dL) 133 H (70-110) mg/dL Calcium 7.7 L (8.4-10.2) mg/dL
--- NOTE | 2024-12-18 10:40 | P.PN ---
Subjective Patient is seen in follow-up for acute kidney injury. Intubated. Receiving tube feeds. On low-dose Levophed during dialysis. Vital signs are stable. On Levophed. General: Resting in bed. HEENT: Intubated. LUNGS: Scattered rhonchi. HEART: Tachycardic. ABDOMEN: Obese. EXTREMITITES: 2+ edema. Objective - Vital Signs Vital signs: Vital Signs Temp 97.7 F 12/18/24 04:00 Pulse 111 H 12/18/24 09:00 Resp 20 12/18/24 09:00 BP 131/87 12/18/24 07:00 Pulse Ox 93 L 12/18/24 07:30 FiO2 50 12/18/24 08:39 Intake & Output 12/17/24 12/18/24 12/18/24 18:59 06:59 18:59 Intake Total 1338.612 669.672 120.449 Output Total 4200 20 0 Balance -2861.388 649.672 120.449 Weight 125 kg Intake: IV 183 143 26 Pressure Bag 33 33 6 kvo 150 110 20 Intake, IV Titration 265.612 186.672 14.449 Amount Norepinephrine 4 mg In 265.612 186.672 14.449 Sodium Chloride 0.9% 250 ml @ 0.03 MCG/KG/MIN 12. 443 mls/hr IV .[id number] [facility] Rx#:[id number] Oral 0 Tube Feeding 250 250 50 Hemodialysis 400 Other 240 90 30 Output: Urine 0 20 0 Hemodialysis 2300 Hemodialysis Net Amount 1900 Other: Voiding Method Indwelling Catheter Indwelling Catheter Indwelling Catheter ABP, PAP, CO, CI - Last Documented Arterial Blood Pressure 125/52 - Labs CBC & Chem 7: 12/18/24 04:41 12/18/24 04:41 Labs: Abnormal Lab Results - Last 24 Hours (Table) 12/17/24 12/18/24 12/18/24 Range/Units 17:26 00:01 04:41 WBC 17.6 H (3.8-10.6) k/uL RBC 3.49 L (4.30-5.90) m/uL Hgb 9.9 L (13.0-17.5) gm/dL Hct 29.2 L (39.0-53.0) % RDW 16.3 H (11.5-15.5) % Plt Count 120 L (150-450) k/uL Neutrophils # 17.0 H (1.3-7.7) k/uL Lymphocytes # 0.2 L (1.0-4.8) k/uL ABG pCO2 (35-45) mmHg ABG pO2 (83-108) mmHg Hemoglobin (13.0-17.5) gm/dL Sodium (137-145) mmol/L Potassium (3.5-5.1) mmol/L Chloride (98-107) mmol/L Carbon Dioxide (22-30) mmol/L BUN (9-20) mg/dL Creatinine (0.66-1.25) mg/dL Glucose (74-99) mg/dL POC Glucose (mg/dL) 117 H 140 H (70-110) mg/dL Calcium (8.4-10.2) mg/dL 12/18/24 12/18/24 12/18/24 Range/Units 04:41 04:42 04:47 WBC (3.8-10.6) k/uL RBC (4.30-5.90) m/uL Hgb (13.0-17.5) gm/dL Hct (39.0-53.0) % RDW (11.5-15.5) % Plt Count (150-450) k/uL Neutrophils # (1.3-7.7) k/uL Lymphocytes # (1.0-4.8) k/uL ABG pCO2 31 L (35-45) mmHg ABG pO2 79 L (83-108) mmHg Hemoglobin 9.7 L (13.0-17.5) gm/dL Sodium 127 L (137-145) mmol/L Potassium 5.7 H (3.5-5.1) mmol/L Chloride 94 L (98-107) mmol/L Carbon Dioxide 18 L (22-30) mmol/L BUN 94 H (9-20) mg/dL Creatinine 3.67 H (0.66-1.25) mg/dL Glucose 119 H (74-99) mg/dL POC Glucose (mg/dL) 133 H (70-110) mg/dL Calcium 7.7 L (8.4-10.2) mg/dL Assessment and Plan Plan: Assessment: 1. Acute kidney injury secondary to ATN secondary to septic shock. Baseline creatinine near 1. Started on hemodialysis December 11, 2024 via femoral catheter. Oliguric. No hydronephrosis noted on kidney ultrasound. 2. Acute hypoxic respiratory failure secondary to pneumonia. 3. Septic shock. Patient with influenza A pneumonia and sputum culture positive for Pseudomonas. 4. Metabolic acidosis secondary to acute kidney injury. 5. A-fib with RVR maintained on oral amiodarone and metoprolol. 6. Cardiomyopathy with ejection fraction of 40 to 45%. 7. Fluid overload. 8. Hyperkalemia secondary to acute kidney injury. Stable. 9. Hypervolemic hyponatremia. Plan: Currently seen while undergoing hemodialysis. Continue to assess daily for need for renal placement therapy. Ultrafiltration as able to tolerate. Maintain tube feeds. Wean FiO2. Wean Levophed. Avoid nephrotoxins. Continue to monitor renal function and urine output. Trach and PEG versus hospice being considered. Prognosis guarded
[2024-12-18 11:58] LABS: Glucose,Whole Blood 106 mg/dL (70-110)
--- NOTE | 2024-12-18 15:32 | P.PN ---
Subjective Progress Note Date: 12/18/24 This is an 84-year-old white male familiar to my service, patient was recently seen in the hospital for MRSA bacteremia, workup for endocarditis and transesophageal echocardiogram was unremarkable and there was no evidence of vegetations. Patient was discharged to half-way on vancomycin and he had a PICC line in place. His transesophageal echo on his last admission showed ejection fraction of 45%, patient is also known to have history of paroxysmal atrial fibrillation as well as history of hereditary factor VIII deficiency. In addition to all of this the patient is known to have history of mild COPD, hiatal hernia, hypertension, and yesterday half-way was concerned about the patient having episodes of shortness of breath. Patient received diuretics, received bronchodilators, this was done upon arrival to the ER, patient developed worsening atrial fibrillation with RVR. I was notified about this patient from the ER, initially recommended amiodarone and amiodarone drip because of his atrial fibrillation with RVR, cardiology was consulted, his oxygenation while in the ER was getting worse in spite of diuretics his chest x- ray did not show any evidence of significant pulmonary edema, patient was intubated shortly after upon my recommendation, and arrangements made for the patient to transfer to the ICU late at night. In the meantime patient was noted to have leukocytosis, WBC count as high as 43.6, hemoglobin was 12.2. Basic metabolic profile was normal except for slightly low bicarb of 18 BUN 35 creatinine 1.28. Chest x-ray this morning showed normal pulmonary vasculature there was no clear-cut evidence of pneumonia or any pleural effusion, no evidence of congestive heart failure, patient did receive multiple fluid boluses yesterday for low blood pressure after intubation. Today the patient is on assist-control rate of 24 tidal volume 500 FiO2 90% and PEEP of 8 which I increased to 10 ABG remains marginal with a pO2 of 85 pCO2 44 pH of 7.31 patient has been on Xarelto for history of chronic atrial fibrillation presently I would recommend that we place the patient on heparin, patient is still receiving amiodarone at 0.5 mg/min he is also on norepinephrine at 0.06 mcg/kg/min propofol at 50 mcg/kg/min IV fluid 100 cc/h 0.9 normal saline. Went ahead and establish a right radial arterial line, patient does have a PICC line in place hence no need to change PICC line unless the patient comes back with positive blood cultures. In the meantime we are recommending cefepime and vancomycin. 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 Knowing this, possibility of pulmonary embolism is likely and I am recommending that we heparinized the patient for now, once his renal functioning improved may consider sending him down for a CT angiogram of the chest. Seen today on 12/08/2024, patient remains in the ICU, intubated mechanically ventilated, he is on assist-control rate of 24 tidal volume 500 FiO2 90% PEEP of 12 ABG showed a pO2 of 125 pCO2 50 pH of 7.25 hence tidal volume was increased to 550, FiO2 was cut down to 60%, kept the PEEP at 12. Chest x-ray is showing evidence of worsening interstitial edema. Patient is on diuretics Lasix 80 mg IV push twice daily. Patient is still requiring pressors he is on norepinephrine at 0.06 mcg/kg/min propofol at 30 mcg/kg/min IV fluid was 100 cc/h, however considering his chest x-ray I recommended we cut it down to KVO. Patient remains on amiodarone at 0.5 mg/min antibiotics schaefer he is on cefepime and vancomycin patient had recent MRSA bacteremia he is also on Tamiflu for acute influenza. For his DVT and possible pulmonary embolism patient remains on heparin as per protocol. Patient is sedated, still hemodynamically unstable requiring norepinephrine, patient is receiving GI DVT prophylaxis is also on enteral feeding for nutritional support. Blood cultures are still pending no plans to address weaning today since the patient is still requiring relatively high FiO2 and high PEEP. Renal functioning seems to be a bit worse, being addressed by nephrology on the case. Patient may have developed acute kidney injury, likely cardiorenal in nature. And could be related to his low blood pressure on presentation /acute tubular necrosis. 12/09/2024: Patient remains in the ICU, intubated mechanically ventilated, he is on assist-control rate of rr 24 tidal volume 550, peep at 12, fio2 60. ABG showed pO2 of 72, pCO2 43, and pH of 7.32. Overnight heart rate was in the 140s, Dr. Taylor was called and he gave Lopressor PO. CXR showing evidence of stable interstitial pattern with small effusion and basilar subsegmental consolidation. Patient had lower extremity Doppler on 12/07 showing chronic nonoccluding right lower extremity DVT for which she remains on heparin as per protocol. Patient is sedated, still hemodynamically unstable requiring norepinephrine, patient is receiving GI DVT prophylaxis and is also on enteral feeding 25 at goal. Fluid balance is approximately positive 1 L in the last 24 hours. Levo at 7.63 mg/min, heprin at 10, amio at .5, prop 50. Lasix at 80 IV BID. Preliminary Gram stain showed Pseudomonas and blood cultures have been negative through 48 hours. . Creatinine today 2.58 which is increased from yesterday of 1.89. Nephrology is following, they added 2 amp sodium bicarb IV push yesterday and stopped Cozaar, Aldactone, and Farxiga. Nephrology considers DEENA secondary to ATN secondary to septic shock as patient's baseline creatinine is usually near 1. Progress note dated December 10, 2024. 84-year-old male seen today in room 254. He remains on the mechanical ventilator. He is on volume assist-control mode, rate 24, tidal volume 450, FiO2 60%, PEEP of 12. Blood gases show a pO2 of 75, pCO2 of 53, pH of 7.23. The patient is getting saline at 20 cc an hour, propofol at 20 mcg/kg/min, Levophed at 2 mcg/min. In addition, the patient is getting heparin via weight- based protocol, and vital AF at 25 cc an hour which is goal. The patient con tinues on Tamiflu, and cefepime. His peak airway pressures 33, with a plateau pressure of 22. Current labs include a white count of 27.5, hemoglobin 11.6, hematocrit 36.2, and a platelet count of 139,000. PTT is 46.6. Sodium 134, potassium 4.8, chlorides 101, CO2 21, BUN 68, and creatinine 3.51. Glucose is 136. Calcium is 8. Sputum from December 06 is positive for Pseudomonas aeruginosa. Chest x-ray earlier from this morning, shows a stable interstitial pattern with small effusion. Chest x-ray after central line insertion shows a properly placed central line, with the tip of the catheter at the junction of superior vena cava and right atrium. Progress note dated December 11, 2024. 84-year-old male seen today in room 254. He remains on the mechanical ventilator. He is on volume assist-control mode, rate 28, tidal volume of 450, FiO2 60%, and PEEP of 12. His peak airway pressure is 29, with a plateau pressure of 22. Blood gases show pH 7.2, pCO2 51, pO2 96. The patient is get ting NS at 20 cc/h and propofol at 40 mcg/kg/min, no levo since 4 AM this morning. In addition the patient is off heparin currently due to bleeding around central line that was placed yesterday.Vital AF at 25 cc an hour and a goal of 35. The patient continues on cefepime (day 3) and completed Tamiflu. Current labs include WBC of 18.6, hemoglobin of 10.8, hematocrit of 34.7, and platelet count of 115,000. Sodium is 131, potassium 5.5, chloride 100, BUN 89, and creatinine 4.26. Glucose is 138. Calcium 7.9. Urine output remains poor, 690 mL over the last 24 hours. Chest x-ray from earlier from this morning shows blunting of the costophrenic angle, cardiomegaly, pulmonary vascular congestion and bilateral pleural effusions. Patient getting dialysis catheter placed this morning. Progress note dated December 12, 2024. 84-year-old male seen today in room 254. No significant overnight events, yesterday had dialysis catheter placed and received first round of dialysis. He remains on the mechanical ventilator. He is on volume assist-control mode,rr 28, tv 450, fio2 60%, and peep 12. The delta between the peak airway pressure and plateau pressure was 11. Blood gases show pO2 of 74, pCO2 56, and pH of 7.21 the patient is getting NS at 10ml/hr and propofol at 60. Patient is on lev o at 0.05. Currently heparin drip on hold. Vital AF at 35. The patient continues on cefepime (day 4) and completed Tamiflu already. Current labs include WBC of 25.8, hemoglobin of 11, platelet count of 122,000, sodium 128, potassium 6, bicarb 20, BUN 81, creatinine 4.31, glucose 123, and calcium 7.7. They took off 1.5 L during hemodialysis yesterday. Chest x-ray shows stable/potentially slightly worsening right basilar airspace opacities.` Progress note dated December 13, 2024. 84-year-old male seen today in room 254. No significant overnight events, yesterday received another round of dialysis. Plan is to receive dialysis again today, potentially sled. He remains on mechanical ventilator on volume assist- control mode with a respiratory rate of 28, tidal volume of 450, FiO2 60%, and PEEP of 12. The delta between the peak airway pressure and plateau pressure was 10. Patient noted to have significant cuff leak. Blood gases show pO2 106, pCO2 48, and pH 7.25. The patient is getting NS@10 mL/h and propofol at 60. Patient is on levo at 11.4 mcg/min. Patient remains off heparin for 2 days now after having bleeding from central line. Getting vital AF at 35 which is goal. On amiodarone 200 twice daily and Lopressor 25 3 times daily for A-fib. Patient continues on cefepime (day 5) and has already completed 5-day course Tamiflu. Current labs include WBC of 26.6, hemoglobin of 10.6, platelet count 107,000, sodium 127, potassium 5.9, bicarb 19, BUN 83, creatinine 3.94, calcium 7.8, and albumin 2.5. They took off 1.5 L during hemodialysis yesterday. Chest x-ray sh ows improvement from prior in the right lower lobe, stable left pleural effusion still noted. Progress note dated December 14, 2024. 84-year-old male seen today in room 254. No significant overnight events, yesterday received sled and took off 2.4L. Patient remains on mechanical ventilator on volume assist-control mode with respiratory rate of 28, tidal volume 450, FiO2 50%, and PEEP of 10. The delta between the peak airway pressure and plateau pressure was 8. Blood gases show pCO2 75, pCO2 47, and pH 7.29. The patient is getting NS@10 mL/h and propofol at 60 mcg/kg/min. Patient was on levo at 9 mcg/min. For DVT prophylaxis patient is on Lovenox SQ 40 daily. Getting vital AF at 25 which is goal. On amiodarone 200 mg twice daily and Lopressor 25 mg 3 times daily for A-fib. Patient continues on cefepime (day 6). Current labs include WBC 21.6, hemoglobin 10.3, platelet count 90,000, sodium 127, potassium 5.4, BUN 70, creatinine 3.21, calcium 7.9. They took off 2.4 L yesterday during dialysis. Chest x-ray shows no significant interval change in the pulmonary vascular congestion and bilateral small pleural effusions. On December 15, 2024 in follow-up in the intensive care unit. He remains intubated on mechanical ventilator. Currently assist-control mode with a respir atory rate of 28, tidal line 450, FiO2 50% and a PEEP of 10. Morning blood gases revealed a PaO2 of 61, pCO2 43 and a pH of 7.33. Chest x-ray continues to show a right lower lobe infiltrate. He is having episodes of desaturations while being repositioned by staff. He is sedated on propofol at 45 mcg/kg/min. Requiring norepinephrine at 2.5 mcg/mi. Normal saline at 20 mL/h. He is being nourished with vital AF at 25 mL/h which is goal. He remains on cefepime for his Pseudomonas aeruginosa positive sputum , completed 7 days course. Blood cultures revealed no growth. White count 18.7. Hemoglobin 10.1. Platelets 87,000. Sodium 125. Potassium 5.1. Bicarb 21. BUN 73. Creatinine 2.98. Glucose 126. He remains on DuoNeb inhalations, Solu-Medrol, Pulmicort inhalations. Anticoagulated with Eliquis. on 12/16/2024, the patient remains intubated on the mechanical ventilator. A [age]-year-old male patient who had a recent hospitalization for a MRSA sepsis discharged to ECF to receive IV vancomycin treatment via PICC line in an ECF. Noted his endocarditis workup was negative. The patient is known to have COPD, hypertension in addition to a combination of other comorbidities which include chronic A-fib, BPH, previous history of DVT, hypertension and he underwent a recent right hip arthroplasty on 10/25/2024. He also has mild chronic systolic heart failure with an EF of around 40 to 45% and his endocarditis workup was negative. Other comorbidities include BPH, nephrolithiasis with previous bilateral ureteral stent placement and previous history of frequent urine tract infection. During this current admission, the patient had a COPD exacerbation with influenza A positive and subsequently he developed pseudomonal pneumonia. At this point in time, the patient is intubated on mechanical ventilator. He was intubated on the day of admission and he remains on assist-control mode of mechanical ventilation at rate of 28, tidal volume of 450, FiO2 of 50% with a PEEP of 10. Blood gas showed pH of 7.28 with a pCO2 of 41 and pO2 of 65. Most recent sputum samples from 12/06/2024 was positive for Pseudomonas aeruginosa and the patient remains on IV cefepime. Blood cultures were essentially negative. Chest x-ray from today shows interstitial bilateral pulmonary filtrates essentially involving the lower lobes. Tube is in a good location. No airspace disease or consolidations. Remains on DuoNeb nebulized treatments [id number]. Remains on IV Solu-Medrol 60 mg every 6 hours. This morning, he is sedated on propofol which is running at 45 mcg/kg/min. He is on vital AF at rate of 25 cc an hour which is at goal. He is also off pressors . Noted during the course of this current admission, the patient sustained an acute kidney injury. He was seen by nephrology and started on hemodialysis. The patient is receiving hemodialysis periodically. Most recent labs from today showing a sodium level of 123, potassium of 5.8, bicarb of 17, BUN of 102 and a creatinine of 4.07. The CBC shows a white cell count of 23 with a hemoglobin 10.2 and a platelet count of 107. The fluid balance over the past 24 hours is +2.5 L. Patient patient is in A-fib with a controlled rate. He is on metoprolol for rate control. He is also on amiodarone 200 mg p.o. twice a day and anticoagulation with Eliquis 2.5 mg p.o. twice a day. He is on IV Protonix. Last HD was on 12/14/24 and he is planned to have HD today and he is anuric. On 12/17/2024, the patient is being seen for a follow-up. The patient has been off sedation for the past 24 hours. Neurologically, remains deeply sedated and unresponsive. Does not respond to deep painful stimulation despite being off sedation for the past 24 hours. At the same time, the patient has been switched to a pressure control mode of mechanical ventilator. Remains intubated on the mechanical ventilator with a pressure control mode at rate of 20, pressure control of 20 cm of water with a inspiratory time of 0.8 and an FiO2 of 50% with a PEEP of 8. Blood gas showed a pH of 7.39 with a pCO2 of 32 and pO2 of 64. Chest x-ray findings from today are essentially unchanged and the patient continues to have stable right basilar patchy airspace opacities and pulm vascular congestion. The patient also has a small right-sided pleural effusion and stable positioning of the lines and tubes. Hemodynamically, the patient is requiring low-dose norepinephrine which is running at 0.03 mcg/kg/min. The patient remains in atrial fibrillation with a controlled rate. The patient underwent hemodialysis yesterday and a total of 3.8 L of ultrafiltration was performed. The patient is on enteral feeding for nutritional support with vital AF at rate of 25 cc an hour. Blood work from today shows a white cell count of 21.6 with a hemoglobin 9.4 and a platelet count of 103. The sodium is at 124, potassium is at 5.8, bicarb is at 18 with a BUN of 100 and a creatinine of 3.8. Chloride is at 92. Afebrile. No other significant events overnight. In terms of atrial fibrillation, the patient is currently on amiodarone 20 mg p.o. twice daily, metoprolol 25 mg p.o. 3 times daily and the patient remains on anticoagulation with Eliquis. Had a lengthy discussion with the family. The family showed no interest hours long-term vent care, then no interest towers tracheostomy or PEG tube insertion. 12/18/2024, the patient remains unresponsive despite being off propofol for the past 48 hours. The patient remains intubated on the mechanical ventilator on pressure control mode of mechanical ventilation at rate of 20, pressure control of 20 cm of water with an expiratory time of 0.8 and a PEEP of 8 and FiO2 of 50%. Chest x-ray findings are essentially unchanged. Blood gas from today showed a pH of 7.44 with pCO2 31 and pO2 of 79. He is undergoing daily hemodialysis. Fluid balance for the past 48 hours is -3.5 L of -2.2 L. He remains atrial fibrillation. He is having episodes of tachycardia. He remains on norepinephrine at a rate of 0.05 mcg/kg/min. White cell count is 17.6 with a hemoglobin 9.9 and a platelet count of 120. Sodium levels at 127, BUN is 94 with a creatinine of 3.6. He remains oliguric. Potassium level is at 5.7. Serum bicarb is at 18. He remains on enteral feeding for nutritional support. He is on vital AF at rate of 25 cc an hour. Hide the next discussion with the family. The son and the daughter were both at the bedside. We discussed the current condition and the prognosis which is essentially poor and the family is interested in end-of-life care to be done within next 24 hours. Meanwhile, we will continue our supportive care for now. Objective - Vital Signs Vital signs: Vital Signs Temp 97.7 F 12/18/24 04:00 Pulse 111 H 12/18/24 09:00 Resp 20 12/18/24 09:00 BP 131/87 12/18/24 07:00 Pulse Ox 93 L 12/18/24 07:30 FiO2 50 12/18/24 08:39 Intake & Output 12/17/24 12/18/24 12/18/24 18:59 06:59 18:59 Intake Total 1338.612 669.672 120.449 Output Total 4200 20 0 Balance -2861.388 649.672 120.449 Weight 125 kg Intake: IV 183 143 26 Pressure Bag 33 33 6 kvo 150 110 20 Intake, IV Titration 265.612 186.672 14.449 Amount Norepinephrine 4 mg In 265.612 186.672 14.449 Sodium Chloride 0.9% 250 ml @ 0.03 MCG/KG/MIN 12. 443 mls/hr IV .[id number] [facility] Rx#:[id number] Oral 0 Tube Feeding 250 250 50 Hemodialysis 400 Other 240 90 30 Output: Urine 0 20 0 Hemodialysis 2300 Hemodialysis Net Amount 1900 Other: Voiding Method Indwelling Catheter Indwelling Catheter Indwelling Catheter ABP, PAP, CO, CI - Last Documented Arterial Blood Pressure 125/52 - Exam GENERAL EXAM: Intubated, sedated 84-year-old male patient, in no apparent distress. Intubated on mechanical ventilator. Orogastric and orotracheal tube are both in place. Peak airway pressure is around 24 HEAD: Normocephalic. EYES: Sluggish reaction of pupils, equal size. NOSE: Clear with pink turbinates. THROAT: Oral endotracheal and gastric tube secured in place, no erythema or exudates. NECK: Left IJ triple-lumen catheter in place. No masses, no JVD. CHEST: No chest wall deformity. LUNGS: Equal air entry with bilateral scattered rhonchi. CVS: S1 and S2 normal with no audible murmur, regular rhythm. ABDOMEN: No hepatosplenomegaly, normal bowel sounds, no guarding or rigidity. SPINE: No scoliosis or deformity SKIN: No rashes CENTRAL NERVOUS SYSTEM: No focal deficits, tone is normal in all 4 extremities. EXTREMITIES: Right radial arterial line in place. There is 1+ peripheral edema. No clubbing, no cyanosis. Peripheral pulses are intact. - Labs CBC & Chem 7: 12/18/24 04:41 12/18/24 04:41 Labs: Abnormal Lab Results - Last 24 Hours (Table) 12/17/24 12/18/24 12/18/24 Range/Units 17:26 00:01 04:41 WBC 17.6 H (3.8-10.6) k/uL RBC 3.49 L (4.30-5.90) m/uL Hgb 9.9 L (13.0-17.5) gm/dL Hct 29.2 L (39.0-53.0) % RDW 16.3 H (11.5-15.5) % Plt Count 120 L (150-450) k/uL Neutrophils # 17.0 H (1.3-7.7) k/uL Lymphocytes # 0.2 L (1.0-4.8) k/uL ABG pCO2 (35-45) mmHg ABG pO2 (83-108) mmHg Hemoglobin (13.0-17.5) gm/dL Sodium (137-145) mmol/L Potassium (3.5-5.1) mmol/L Chloride (98-107) mmol/L Carbon Dioxide (22-30) mmol/L BUN (9-20) mg/dL Creatinine (0.66-1.25) mg/dL Glucose (74-99) mg/dL POC Glucose (mg/dL) 117 H 140 H (70-110) mg/dL Calcium (8.4-10.2) mg/dL 12/18/24 12/18/24 12/18/24 Range/Units 04:41 04:42 04:47 WBC (3.8-10.6) k/uL RBC (4.30-5.90) m/uL Hgb (13.0-17.5) gm/dL Hct (39.0-53.0) % RDW (11.5-15.5) % Plt Count (150-450) k/uL Neutrophils # (1.3-7.7) k/uL Lymphocytes # (1.0-4.8) k/uL ABG pCO2 31 L (35-45) mmHg ABG pO2 79 L (83-108) mmHg Hemoglobin 9.7 L (13.0-17.5) gm/dL Sodium 127 L (137-145) mmol/L Potassium 5.7 H (3.5-5.1) mmol/L Chloride 94 L (98-107) mmol/L Carbon Dioxide 18 L (22-30) mmol/L BUN 94 H (9-20) mg/dL Creatinine 3.67 H (0.66-1.25) mg/dL Glucose 119 H (74-99) mg/dL POC Glucose (mg/dL) 133 H (70-110) mg/dL Calcium 7.7 L (8.4-10.2) mg/dL Assessment and Plan Plan: Acute hypoxemic respiratory failure secondary to suspected healthcare acquired pneumonia, sputum culture positive for Pseudomonas aeruginosa currently maintained on mechanical ventilation, intubated on 12/06/2024. Completed the course of cefepime. The patient remains on the mechanical ventilator, pressure control mode.. Chest x-ray findings are stable and unchanged. The patient was taken off the sedation. Remains unresponsive while being off propofol for more than 48 hours. Overall respiratory status is unchanged. The patient remains on mechanical ventilator. Chest x-ray and blood gases from today were noted. Persistent sepsis and septic shock, secondary to MRSA bacteremia persistent positive blood cultures on 11/25/2024. Follow-up blood cultures revealed no growth, the patient is currently off pressors Recent discharge on 12/04/2024 to an ECF with PICC line and vancomycin in the LLE Moderate LV dysfunction, with diffuse interstitial edema Acute kidney injury secondary to hypotension, and possible acute tubular necrosis, currently on hemodialysis, left femoral HD cath History of atrial fibrillation with RVR, anticoagulated with Eliquis, maintained on a combination of amiodarone 200 mg p.o. twice a day, metoprolol anticoagulation with Eliquis Acute on chronic systolic congestive heart failure COPD exacerbation, he remains on DuoNeb updrafts and IV Solu-Medrol History of BPH History of factor VIII deficiency Possible pulmonary embolism History of DVT Benign essential hypertension Acute influenza A infection, completed a course of Tamiflu History of previous right total hip arthroplasty Plan: Keep the patient off sedation Remains unresponsive Condition essentially unchanged Continue bronchodilators Continue vent support Continue pressors Hemodialysis to today y Continue amiodarone and metoprolol Anticoagulated with Eliquis Being nourished with vital AF at goal Family is not interested in tracheostomy or PEG tube insertion Suggested a CAT scan of the brain based on his ongoing diminished level of consciousness. However, the family was interested in end-of-life care and they want to proceed with that within the next 24 hours. They do understand the poor prognosis in this patient. Family was updated on his condition Condition remains critical. Will continue to follow. This evaluation was done more than 30 minutes. Time with Patient: Greater than 30
[2024-12-18 17:13] VITALS: BP 131/87
[2024-12-18 17:58] LABS: Glucose,Whole Blood 111 mg/dL (70-110)
[2024-12-19 04:38] LABS: Anisocytosis Slight; Basophils % (A) 0 %; Eosinophils % (A) 0 %; HCT 29.6 % (39.0-53.0); HGB 9.9 gm/dL (13.0-17.5); Lymphocytes # (A) 0.3 k/uL (1.0-4.8); Lymphocytes % (A) 1 %; MCH 27.8 pg (25.0-35.0); MCHC 33.6 g/dL (31.0-37.0); MCV 82.6 fL (80.0-100.0); Mean Platelet Volume 10.4; Monocytes # (A) 0.6 k/uL (0-1.0); Monocytes % (A) 3 %; Neutrophils # (A) 17.4 k/uL (1.3-7.7); Neutrophils % (A) 95 %; Platelet Count 159 k/uL (150-450); RBC 3.58 m/uL (4.30-5.90); RDW 16.3 % (11.5-15.5); WBC 18.3 k/uL (3.8-10.6)
[2024-12-19 04:56] LABS: Anion Gap 12 mmol/L; Blood Urea Nitrogen 92 mg/dL (9-20); Calcium 7.7 mg/dL (8.4-10.2); Carbon Dioxide 21 mmol/L (22-30); Chloride 92 mmol/L (98-107); Glucose 107 mg/dL (74-99); Potassium 5.8 mmol/L (3.5-5.1); Sodium 125 mmol/L (137-145)
[2024-12-19 05:02] LABS: African American GFR (CKD) 17 (>60 ml/min/1.73 sqM); Non-African American GFR(CKD) 14 (>60 ml/min/1.73 sqM)
[2024-12-19 05:43] LABS: ABG Base Excess -1.7 mmol/L; ABG HCO3 22 mmol/L (21-25); ABG Oxygen Saturation 94.6 % (94-97); ABG PCO2 31 mmHg (35-45); ABG PH 7.45 (7.35-7.45); ABG PO2 74 mmHg (83-108); ABG TCO2 23 mmol/L (19-24); Allen Test Performed? Yes
--- NOTE | 2024-12-19 07:26 | XR ---
EXAMINATION TYPE: XR chest 1V portable DATE OF EXAM: 12/19/2024 4:19 AM COMPARISON: Chest radiographs from 12/18/2024 TECHNIQUE: XR chest 1V portable Portable AP radiograph of the chest. CLINICAL INDICATION:Male, 84 years old with history of mechanical ventilation; FINDINGS: Lungs/Pleura: No evidence of pneumothorax. Blunting of both costophrenic angles with bibasilar patchy airspace opacities. Pulmonary vascularity: Pulmonary vascular congestion. Heart/mediastinum: Cardiomediastinal silhouette is enlarged and stable. Atherosclerotic calcificatio ns are seen in the aorta. Musculoskeletal: No acute osseous pathology. Other findings: None Lines/Tubes: Endotracheal tube with distal tip 4.1 cm above the landen. Nasogastric tube with its distal tip in the region of the stomach. The sidehole is in the distal esop hagus/GE junction. Left-sided PICC with distal tip at the high SVC. Left IJ approach central venous catheter distal tip in the mid SVC. IMPRESSION: 1. NG tube with sidehole at the distal esophagus/GE junction. Recommend advancement approximately 6 cm. Stable position remaining support lines and tubes. 2. Small bilateral pleural effusions with pulmonary vascular congestion and bibasilar patchy airspac e opacities. Correlate for CHF exacerbation with superimposed pneumonia not excluded. [facility], , 12/19/2024 7:23 AM
--- NOTE | 2024-12-19 08:00 | P.PN ---
Subjective Progress Note Date: 12/18/24 Principal diagnosis: Reason for follow-up is acute influenza A/Pseudomonas pneumonia Patient is a 84-year-old male with a past medical history significant for atrial fibrillation diabetes mellitus DVT hypertension hyperlipidemia recent admission to the hospital diagnosed with MRSA bacteremia source was likely pneumonia, did have a negative LIS presenting back to the hospital for increasing shortness of breath has been diagnosed with sepsis secondary pneumonia also tested positive for influenza A sputum showing Pseudomonas. On today's evaluation that is 12/18/2024,the patient continues to be afebrile patient remains to be intubated on the vent FiO2 is currently stable at 50% no significant purulent secretions through the ET diarrhea and the changes reported. Patient white count is down to 17.6 creatinine 3.67 Objective - Vital Signs Vital signs: Vital Signs Temp 97.7 F 12/18/24 04:00 Pulse 129 H 12/18/24 10:30 Resp 18 12/18/24 10:30 BP 131/87 12/18/24 10:30 Pulse Ox 94 L 12/18/24 10:30 FiO2 50 12/18/24 08:39 Intake & Output 12/17/24 12/18/24 12/18/24 18:59 06:59 18:59 Intake Total 1338.612 669.672 256.449 Output Total 4200 20 0 Balance -2861.388 649.672 256.449 Weight 125 kg Intake: IV 183 143 52 Pressure Bag 33 33 12 kvo 150 110 40 Intake, IV Titration 265.612 186.672 14.449 Amount Norepinephrine 4 mg In 265.612 186.672 14.449 Sodium Chloride 0.9% 250 ml @ 0.03 MCG/KG/MIN 12. 443 mls/hr IV .[id number] [facility] Rx#:[id number] Oral 0 Tube Feeding 250 250 100 Hemodialysis 400 Other 240 90 90 Output: Urine 0 20 0 Hemodialysis 2300 Hemodialysis Net Amount 1900 Other: Voiding Method Indwelling Catheter Indwelling Catheter Indwelling Catheter ABP, PAP, CO, CI - Last Documented Arterial Blood Pressure 104/58 - Exam GENERAL DESCRIPTION: An elderly male intubated on the vent RESPIRATORY SYSTEM: Unlabored breathing , decreased breath sounds at bases HEART: S1 S2 regular rate and rhythm , ABDOMEN: Soft , no tenderness EXTREMITIES: Mild swelling to the leg no redness - Labs CBC & Chem 7: 12/19/24 04:20 12/19/24 04:20 Labs: Abnormal Lab Results - Last 24 Hours (Table) 12/17/24 12/18/24 12/18/24 Range/Units 17:26 00:01 04:41 WBC 17.6 H (3.8-10.6) k/uL RBC 3.49 L (4.30-5.90) m/uL Hgb 9.9 L (13.0-17.5) gm/dL Hct 29.2 L (39.0-53.0) % RDW 16.3 H (11.5-15.5) % Plt Count 120 L (150-450) k/uL Neutrophils # 17.0 H (1.3-7.7) k/uL Lymphocytes # 0.2 L (1.0-4.8) k/uL ABG pCO2 (35-45) mmHg ABG pO2 (83-108) mmHg Hemoglobin (13.0-17.5) gm/dL Sodium (137-145) mmol/L Potassium (3.5-5.1) mmol/L Chloride (98-107) mmol/L Carbon Dioxide (22-30) mmol/L BUN (9-20) mg/dL Creatinine (0.66-1.25) mg/dL Glucose (74-99) mg/dL POC Glucose (mg/dL) 117 H 140 H (70-110) mg/dL Calcium (8.4-10.2) mg/dL 12/18/24 12/18/24 12/18/24 Range/Units 04:41 04:42 04:47 WBC (3.8-10.6) k/uL RBC (4.30-5.90) m/uL Hgb (13.0-17.5) gm/dL Hct (39.0-53.0) % RDW (11.5-15.5) % Plt Count (150-450) k/uL Neutrophils # (1.3-7.7) k/uL Lymphocytes # (1.0-4.8) k/uL ABG pCO2 31 L (35-45) mmHg ABG pO2 79 L (83-108) mmHg Hemoglobin 9.7 L (13.0-17.5) gm/dL Sodium 127 L (137-145) mmol/L Potassium 5.7 H (3.5-5.1) mmol/L Chloride 94 L (98-107) mmol/L Carbon Dioxide 18 L (22-30) mmol/L BUN 94 H (9-20) mg/dL Creatinine 3.67 H (0.66-1.25) mg/dL Glucose 119 H (74-99) mg/dL POC Glucose (mg/dL) 133 H (70-110) mg/dL Calcium 7.7 L (8.4-10.2) mg/dL Assessment and Plan (1) Influenza A Current Visit: Yes Status: Acute Code(s): J10.1 - FLU DUE TO OTH IDENT INFLUENZA VIRUS W OTH RESP MANIFEST SNOMED Code(s): 336302199 (2) Leukocytosis Current Visit: Yes Status: Acute Code(s): D72.829 - ELEVATED WHITE BLOOD CELL COUNT, UNSPECIFIED SNOMED Code(s): 644400625 (3) Pneumonia Current Visit: No Status: Acute Code(s): J18.9 - PNEUMONIA, UNSPECIFIED ORGANISM SNOMED Code(s): 955105314 (4) Sepsis Current Visit: No Status: Acute Code(s): A41.9 - SEPSIS, UNSPECIFIED ORGANISM SNOMED Code(s): 22612848 Plan: 1patient presented to hospital with sepsis in this patient who did have hypotension requiring pressor support elevated white count source is multifac torial possible component of pneumonia with the sputum not showing Pseudomonas aeruginosa and recently did have a history of MRSA pneumonia for the patient has received adequate vancomycin which has been discontinued. 2 Patient with acute influenza A, patient completed 5-day course of Tamiflu. 3-patient did have worsening of his kidney function and has been started on hemodialysis, nephrology is following the patient 4- patient remains to be afebrile white count is trending down, completed course of IV cefepime for Pseudomonas pneumonia and will monitor closely off antibiotic. Dictation was produced using [employer] dictation software. please excuse any grammatical, word or spelling errors. Time with Patient: Less than 30
[2024-12-19 08:10] VITALS: TEMP 99.5
[2024-12-19] MEDS ORDERED: GLYCOPYRROLATE 0.2 MG/ML 2 ML VIAL IVP PRN (08:57)
[2024-12-19] MEDS ORDERED: ACETAMINOPHEN SUPPOSITORY 650 MG SUPP RECTAL PRN (08:57)
[2024-12-19] MEDS ORDERED: ONDANSETRON 4 MG/2 ML VIAL IVP PRN (08:57)
[2024-12-19] MEDS: MORPHINE SULFATE (100 MG/2 ML) 100 MG in SODIUM CHLORIDE 0.9% 100 ML IV SCH (09:15)
[2024-12-19] MEDS: MORPHINE SULFATE 4 MG/ML SYRINGE IV PRN (09:16)
[2024-12-19] MEDS: LORazepam 2 MG/ML INJ IV PRN (09:25)
[2024-12-19] MEDS: LORazepam 2 MG/ML INJ IV STA (10:07)
--- NOTE | 2024-12-19 10:28 | P.PN ---
Subjective Progress Note Date: 12/18/24 HISTORY OF PRESENT ILLNESS This is a 84-year-old male with past medical history of hypertension, paroxysmal atrial fibrillation on Xarelto, benign prostatic hypertrophy, hiatal hernia, hereditary factor VIII deficiency, hyperlipidemia, mild intermittent asthma, mild COPD, patient was recently admitted to [facility] after he underwent right total hip arthroplasty that was done by Dr. Thakkar and he has been at [facility] for physical therapy rehabilitation, patient was recently hospitalized at [facility] from November 25 of December 04 after he was admitted for what appears to be right lower lobe pneumonia appears to be MRSA pneumonia, initially was started on vancomycin as well as cefepime was seen in consultation by pulm medicine as well as cardiology, he had a significant MRSA bacteremia, that responded very well to vancomycin, patient ended up going for transesophageal echocardiogram that did not show evidence of any vegetation, it did show evidence of 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%, patient was sent to [facility] December 04, 2024 while he was there he was requiring about 5 L nasal cannula of oxygen, I received a phone call from the nursing staff stating that the patient is in acute respiratory distress today, he was given 60 mg IM of Lasix as well as 80 mg IM of Solu-Medrol with nebulizer treatment along with Pulmicort and DuoNeb, without any relief, he was placed on nonrebreather, and patient was sent to the ER for evaluation, he was found to have a significant leukocytosis with a white count of 36,000, his swab came back positive for influenza A, and chest x-ray showed evidence of cardiomegaly as well as basilar pneumonia patient was started back on his vancomycin as well as cefepime he was started on Tamiflu, he was started on Lasix 80 mg IV push every 12 hours, along with Solu-Medrol 60 mg IV push every 6 hours, DuoNeb nebulization 4 times every day Pulmicort 1 mg nebulization twice every day he is currently on BiPAP, pulmonary consultation as well as cardiology consultation. Sputum culture will be obtained as well as blood cultures. 12/07: While the patient yesterday in the emergency department he went into severe respiratory distress while he was on the BiPAP, he did receive 1 dose of Lasix 80 mg IV push, along with Solu-Medrol 60 mg IV push along with nebulized treatment in the form of DuoNeb as well as Pulmicort, without relief, at that time the decision was made for the patient to be intubated and transferred to the intensive care unit from the emergency department, patient is currently sedated on the ventilator, he is currently on amiodarone drip, as well as propofol drip, he is on 90% FiO2, with a PEEP of 5, pulmonary/critical care is following the patient very closely, cardiology is following as well, patient was started on IV antibiotic in the form of vancomycin as well as cefepime, he was started on Tamiflu as well due to influenza A, his white count initially was elevated at 43,000 down to 38,000, patient appears quite sick at this point in time, his prognosis continue be guarded, will continue with aggressive treatment plan for now, we will follow-up with the patient very closely. 12/08: Patient is laying down in bed he continues to be on the ventilator, currently FiO2 of 60%, PEEP of 12, tidal volume of 550, he continues to have a significant edema both upper and lower extremities, he is not getting any more IV fluid, will wean down his Levophed drip, continue IV antibiotic in the form of vancomycin as well as cefepime, sputum cultures growing Pseudomonas aeruginosa, currently on cefepime as well as vancomycin with pharmacy to dose to be controlled, continue also with Tamiflu for influenza A, patient was seen earlier by nephrology for acute kidney injury due to acute tubular necrosis and vasomotor nephropathy due to septic shock, continue current Lasix 80 mg IV push every 12 hours, monitor the patient input and output and daily weight, ultr asound of the kidney was obtained. 12/09: Patient is still intubated on the ventilator, he is currently on AC mode with a tidal volume of 550 respiration of 24, FiO2 of 60%, PEEP of 12, x-ray still showing evidence of pulmonary edema, he has been getting Lasix 80 mg IV push every 12 hours, he has an acute kidney injury that is getting worse today, his BUN and creatinine is elevated, nephrology is following, patient continues to be on Levophed, he has been on cefepime we will monitor the patient very closely, continue current treatment plan, will follow-up with the patient very closely, patient has been seen by nephrology, cardiology, as well as by pulmonary medicine and critical care, patient also was seen in consultation by infectious disease at this point in time, taken off vancomycin and Tamiflu due to acute kidney injury. 12/10: Patient is laying down in bed he continues to be on the ventilator, his current vent setting is FiO2 of 60%, respiratory rate is 24, tidal volume 450, and FiO2 of 60%, PEEP of 12, patient blood gases showed evidence of metabolic and respiratory acidosis with hypoxemia his pO2 is about 72 and pCO2 is 56, patient is getting a central line today, he continues to have worsening kidney function, will continue current treatment plan, continue follow-up with the patient very closely 12/11: Patient is laying down in bed continues to be sedated on the ventilator, worsening renal function his creatinine is up to 4.5, decreased urine output, was on lasix drip without improvement and he was started on HD today for 2 hours , patient continues to be treated with cefepime for Pseudomonas pneumonia, he continued to have a septic shock he is currently on Levophed, he is currently on propofol, his prognosis continues to be guarded, patient has underlying ca rdiomyopathy ejection fraction 45%, he continues to have atrial fibrillation for which she has been on amiodarone, patient has been followed by multiple specialties including ICU/pulmonary medicine, cardiology, nephrology, infectious disease, we will continue to follow-up with the patient very closely, he may require to have hemodialysis even for short period of time to improve his kidney function as well as fluid status. 12/12: Patient remains on the ventilator, his current tidal volume is 450 FiO2 of 60%, and a PEEP of 12, he is still requiring quite a bit of sedation he is still requiring Levophed to keep his pressure up, he is getting his edema hemodialysis for the second day today, his blood pressure is marginal, we discussed with the nursing staff increasing his Levophed little bit, but he is still in atrial fibrillation with rapid ventricular response, his urine output is minimal, trying to get another 500 cc out of his body today, chest x-ray still showing evidence of right lower lobe pneumonia, will follow-up with the patient very closely at this point patient prognosis continue to be guarded, I still think that the patient can turn around, we can continue with the current treatment plan continue with cefepime continue with aggressive pulmonary toileting, continue to follow-up with the patient very closely. 12/13: Patient is laying down in bed he continues to be on the ventilator, with the AC mode, tidal volume of 450, respiratory rate of 28, FiO2 50%, PEEP of 12, chest x-ray continues to show some signs of pneumonia in the right lower lobe, minimal pulmonary vascular congestion as well, he is getting dialysis for the third day in the room, his blood pressure appears to be marginal at this time, hopefully will increase his Levophed little bit for the patient to go for dialysis at this point in time, he continues to improve slowly, he continues to be on Levophed, he continues to be on cefepime, he has been followed by multiple specialty, we will continue with the feeding tube he is currently at 35 mL/h, he seems to be tolerating this very well. 12/14--patient was seen and examined today. Remains on Levophed. Remains intubated and sedated. Underwent hemodialysis today. Vitals reviewed. WBCs 21.6, hemoglobin 10.3, platelet 92. Blood gases showed pH 7.29, pCO2 47, pO2 75. Sodium 127, potassium 5.4, BUN 70, creatinine 3.21. Infectious disease, ne phrology, ICU following. 12/15--patient was seen and examined today. Family at bedside. Levophed weaned off. Patient remains intubated and sedated. Nephrology infectious disease and ICU following. Currently on cefepime. Chest x-ray showed right lower lobe infiltrate. Patient on tube feeds. Nephrology planning for hemodialysis tomorrow. Cultures remain negative. Labs reviewed. Anticoagulated with Eliquis. 12/16: Patient's kidney function test continues to deteriorate, he is going for h emodialysis today, he is hypertensive today, he is 2.2 L fluid overload, is going for dialysis today, he was off Levophed, he continues to be on cefepime, his blood gases showed worsening hypoxemia, patient is not making much urine at this point in time, we will continue with hemodialysis at this point, due to acute kidney injury that is oliguric due to acute tubular necrosis as well as vasomotor nephropathy, nephrology is following, we will follow-up with the patient very closely, patient has been on the ventilator for 10 days, will discuss with the family whether or not they want to have a trach and PEG tube placement at this point in time. 12/17: Patient continues to be on the ventilator at this time, he is vent settings were AC mode tidal volume 450 FiO2 50% PEEP of +8, chest x-ray con tinues to show some congestion, positive for pneumonia as well, has been seen by pulmonary medicine and critical care, continue dialysis for now, mild hyponatremia and mild improvement in kidney function, however patient is oliguric still, if he continues to be on the ventilator he may need to go and have a PEG and trach placed otherwise if the patient is not able to come off the ventilator then we will discuss with the family whether or not the patient should go on comfort care. 12/18: Patient did not make any improvement on the ventilator at this point in time, he did not have any significant response after stopping the sedation at this point in time family were at the bedside, they are electing to go for comfort wean tomorrow morning, this will be started tomorrow morning on comfort care patient will be started on morphine drip as well as Ativan as needed REVIEW OF SYSTEMS Patient is sedated on the ventilator. PHYSICAL EXAMINATION Gen: This is an obese 84-year-old is sedated on the ventilator HEENT: Head is atraumatic, normocephalic. Pupils equal, round. Sclerae is anicteric, there is an NG tube in place, and ET tube placed NECK: Supple. No JVD. No lymphadenopathy. No thyromegaly. LUNGS: decreased breath sound at bases, few rhonchi, minimal expiratory wheezes, no chest wall tenderness, no intercostal retractions. HEART: First heart sound is depressed, second heart sound is normal, 2/6 systolic ejection murmur at the left sternal border, irregular irregular due to atrial fibrillation. ABDOMEN: Soft. Bowel sounds are present. No masses. No tenderness. EXTREMITIES: +3 pedal edema. No calf tenderness. Pain in the left hip. Dorsalis pedis palpable bilaterally. NEUROLOGICAL: Patient is currently sedated on the ventilator. ASSESSMENT AND PLAN: 1. Acute vent dependent hypoxemic respiratory failure due to acute systolic heart failure as well as acute left lower lobe Pseudomonas pneumonia and influenza A. Continue Solu-Medrol 40 mg IV push every 12 hours, continue DuoNeb 3 mL nebulization every 4 hours, continue Pulmicort 1 mg nebulization twice every day, continue cefepime 1 g IV piggyback every 12 hours, monitor the patient symptoms very closely, patient is still requiring FiO2 down to 50%, PEEP is down to 8, tidal volume 450 and respiratory rate is 24. 2. Pseudomonas pneumonia with septic shock . Try to wean Levophed off continue IV antibiotic in the form of cefepime 1 g piggyback every 4 hours, continue oxygen support, try to wean FiO2 down, continue to monitor the patient very closely. Infectious disease consultation from Dr. Agosto is appreciated. Monitor the patient symptoms very closely, b blood cultures are negative. 3. Atrial fibrillation with rapid ventricular response. Discontinue amiodarone 200 mg orally twice every day, continue on metoprolol 25 mg orally 3 times every day, monitor the patient symptoms very closely. Continue Eliquis 2.5 mg orally twice every day. 4. 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 5. Acute kidney injury due to acute tubular necrosis with vasomotor nephropathy due to septic shock. Patient did not do well without hemodialysis his BUN is up to 100 and creatinine is up to 4.5, he is 2.2 L overload he is getting hemodialysis right now. 6. Anion gap antibiotic acidosis due to acute kidney injury monitor the patient symptoms very closely, continue with hemodialysis for now. 7. COPD exacerbation. Continue Solu-Medrol 40 mg IV push every 12 hours, continue Pulmicort 1 mg nebulization twice every day, DuoNeb 3 manipulation 4 times every day, oxygen support, currently on the ventilator. 8. Mild intermittent asthma. Continue Singulair 10 mg at bedtime, loratadine 10 mg once every day, continue aggressive pulmonary toileting. 9. Benign prostatic hypertrophy. Continue Flomax 0.4 mg currently has a Henry catheter in place. 10. Hereditary factor VIII deficiency. Patient was taken off heparin drip, he is currently on Eliquis 2.5 mg orally twice every day. 11. Hyperlipidemia. Continue Zetia 10 mg daily and Atorvastatin 40 mg once a day and Zetia 10 mg once every day. Monitor the patient lipid panel, keep LDL 55-70 12. Hypertension and hypertensive cardiovascular disease. patient blood pressure is soft at this time, continue metoprolol 25 mg orally 3 times every day. 13. GI prophylaxis. Protonix 40 mg IV push daily. 14. DVT prophylaxis. Continue with Eliquis 2.5 mg orally twice every day. 15. Major depressive disorder. Continue patient on Effexor XR 37.5 mg orally once every day. 16. Prognosis is guarded 17. comfort care tomorrow morning. Objective - Vital Signs Vital signs: Vital Signs Temp 97.3 F L 12/18/24 12:30 Pulse 130 H 12/18/24 12:46 Resp 22 12/18/24 12:46 BP 110/55 12/18/24 12:30 Pulse Ox 92 L 12/18/24 12:30 FiO2 50 12/18/24 12:29 Intake & Output 12/17/24 12/18/24 12/18/24 18:59 06:59 18:59 Intake Total 1338.612 777.407 1467.040 Output Total 4200 20 4400 Balance -2861.388 649.672 -3389.960 Weight 125 kg Intake: IV 183 143 91 Pressure Bag 33 33 21 kvo 150 110 70 Intake, IV Titration 265.612 186.672 164.040 Amount Norepinephrine 4 mg In 265.612 186.672 164.040 Sodium Chloride 0.9% 250 ml @ 0.03 MCG/KG/MIN 12. 443 mls/hr IV .[id number] [facility] Rx#:[id number] Oral 0 Tube Feeding 250 250 175 Hemodialysis 400 400 Other 240 90 180 Output: Urine 0 20 0 Hemodialysis 2300 2400 Hemodialysis Net Amount 1900 2000 Other: Voiding Method Indwelling Catheter Indwelling Catheter Indwelling Catheter ABP, PAP, CO, CI - Last Documented Arterial Blood Pressure 103/60 - Labs CBC & Chem 7: 12/19/24 04:20 12/19/24 04:20 Labs: Abnormal Lab Results - Last 24 Hours (Table) 12/17/24 12/18/24 12/18/24 Range/Units 17:26 00:01 04:41 WBC 17.6 H (3.8-10.6) k/uL RBC 3.49 L (4.30-5.90) m/uL Hgb 9.9 L (13.0-17.5) gm/dL Hct 29.2 L (39.0-53.0) % RDW 16.3 H (11.5-15.5) % Plt Count 120 L (150-450) k/uL Neutrophils # 17.0 H (1.3-7.7) k/uL Lymphocytes # 0.2 L (1.0-4.8) k/uL ABG pCO2 (35-45) mmHg ABG pO2 (83-108) mmHg Hemoglobin (13.0-17.5) gm/dL Sodium (137-145) mmol/L Potassium (3.5-5.1) mmol/L Chloride (98-107) mmol/L Carbon Dioxide (22-30) mmol/L BUN (9-20) mg/dL Creatinine (0.66-1.25) mg/dL Glucose (74-99) mg/dL POC Glucose (mg/dL) 117 H 140 H (70-110) mg/dL Calcium (8.4-10.2) mg/dL 12/18/24 12/18/24 12/18/24 Range/Units 04:41 04:42 04:47 WBC (3.8-10.6) k/uL RBC (4.30-5.90) m/uL Hgb (13.0-17.5) gm/dL Hct (39.0-53.0) % RDW (11.5-15.5) % Plt Count (150-450) k/uL Neutrophils # (1.3-7.7) k/uL Lymphocytes # (1.0-4.8) k/uL ABG pCO2 31 L (35-45) mmHg ABG pO2 79 L (83-108) mmHg Hemoglobin 9.7 L (13.0-17.5) gm/dL Sodium 127 L (137-145) mmol/L Potassium 5.7 H (3.5-5.1) mmol/L Chloride 94 L (98-107) mmol/L Carbon Dioxide 18 L (22-30) mmol/L BUN 94 H (9-20) mg/dL Creatinine 3.67 H (0.66-1.25) mg/dL Glucose 119 H (74-99) mg/dL POC Glucose (mg/dL) 133 H (70-110) mg/dL Calcium 7.7 L (8.4-10.2) mg/dL
--- NOTE | 2024-12-19 10:32 | P.DS ---
Providers Date of admission: 12/06/24 15:49 Expected date of discharge: 12/19/24 Attending physician: Buzz Zimmerman Consults: 12/06/24 15:45 Consult Physician Urgent Consulting Provider: Jessica Palafox Consult Reason/Comments: bipap resp failure, copd exacerbation, influenza a Do you want consulting provider notified?: Yes 12/06/24 18:18 Consult Physician Routine Consulting Provider: Ez Taylor Consult Reason/Comments: CHF, Afib RVR, Do you want consulting provider notified?: Yes 12/08/24 11:34 Consult Physician Routine Consulting Provider: Hira Horton Consult Reason/Comments: DEENA Do you want consulting provider notified?: Yes 12/08/24 13:02 Consult Physician Routine Consulting Provider: Silverio Agosto Consult Reason/Comments: Sepsis/Pseudomonas Pneumonia Do you want consulting provider notified?: Yes 12/10/24 20:26 Consult Physician Routine Consulting Provider: Urbano Corea Consult Reason/Comments: HD cath placement Do you want consulting provider notified?: Yes, Notify in am Primary care physician: Buzz Zimmerman Hospital Course: HISTORY OF PRESENT ILLNESS This is a 84-year-old male with past medical history of hypertension, paroxysmal atrial fibrillation on Xarelto, benign prostatic hypertrophy, hiatal hernia, hereditary factor VIII deficiency, hyperlipidemia, mild intermittent asthma, mild COPD, patient was recently admitted to [facility] after he underwent right total hip arthroplasty that was done by Dr. Thakkar and he has been at [facility] for physical therapy rehabilitation, patient was recently hospitalized at [facility] from November 25December 04 after he was admitted for what appears to be right lower lobe pneumonia appears to be MRSA pneumonia, initially was started on vancomycin as well as cefepime was seen in consultation by pulm medicine as well as cardiology, he had a significant MRSA bacteremia, that responded very well to vancomycin, patient ended up going for transesophageal echocardiogram that did not show evidence of any vegetation, it did show evidence of 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%, patient was sent to [facility] December 04, 2024 while he was there he was requiring about 5 L nasal cannula of oxygen, I received a phone call from the nursing staff stating that the patient is in acute respiratory distress today, he was given 60 mg IM of Lasix as well as 80 mg IM of Solu-Medrol with nebulizer treatment along with Pulmicort and DuoNeb, without any relief, he was placed on nonrebreather, and patient was sent to the ER for evaluation, he was found to have a significant leukocytosis with a white count of 36,000, his swab came back positive for influenza A, and chest x-ray showed evidence of cardiomegaly as well as basilar pneumonia patient was started back on his vancomycin as well as cefepime he was started on Tamiflu, he was started on Lasix 80 mg IV push every 12 hours, along with Solu-Medrol 60 mg IV push every 6 hours, DuoNeb nebulization 4 times every day Pulmicort 1 mg nebulization twice every day he is currently on BiPAP, pulmonary consultation as well as cardiology consultation. Sputum culture will be obtained as well as blood cultures. 12/07: While the patient yesterday in the emergency department he went into severe respiratory distress while he was on the BiPAP, he did receive 1 dose of Lasix 80 mg IV push, along with Solu-Medrol 60 mg IV push along with nebulized treatment in the form of DuoNeb as well as Pulmicort, without relief, at that time the decision was made for the patient to be intubated and transferred to the intensive care unit from the emergency department, patient is currently sedated on the ventilator, he is currently on amiodarone drip, as well as propofol drip, he is on 90% FiO2, with a PEEP of 5, pulmonary/critical care is following the patient very closely, cardiology is following as well, patient was started on IV antibiotic in the form of vancomycin as well as cefepime, he was started on Tamiflu as well due to influenza A, his white count initially was elevated at 43,000 down to 38,000, patient appears quite sick at this point in time, his prognosis continue be guarded, will continue with aggressive treatment plan for now, we will follow-up with the patient very closely. 12/08: Patient is laying down in bed he continues to be on the ventilator, currently FiO2 of 60%, PEEP of 12, tidal volume of 550, he continues to have a significant edema both upper and lower extremities, he is not getting any more IV fluid, will wean down his Levophed drip, continue IV antibiotic in the form of vancomycin as well as cefepime, sputum cultures growing Pseudomonas aeruginosa, currently on cefepime as well as vancomycin with pharmacy to dose to be controlled, continue also with Tamiflu for influenza A, patient was seen earlier by nephrology for acute kidney injury due to acute tubular necrosis and vasomotor nephropathy due to septic shock, continue current Lasix 80 mg IV push every 12 hours, monitor the patient input and output and daily weight, ultrasound of the kidney was obtained. 12/09: Patient is still intubated on the ventilator, he is currently on AC mode with a tidal volume of 550 respiration of 24, FiO2 of 60%, PEEP of 12, x-ray still showing evidence of pulmonary edema, he has been getting Lasix 80 mg IV push every 12 hours, he has an acute kidney injury that is getting worse today, his BUN and creatinine is elevated, nephrology is following, patient continues to be on Levophed, he has been on cefepime we will monitor the patient very closely, continue current treatment plan, will follow-up with the patient very closely, patient has been seen by nephrology, cardiology, as well as by pulmonary medicine and critical care, patient also was seen in consultation by infectious disease at this point in time, taken off vancomycin and Tamiflu due to acute kidney injury. 12/10: Patient is laying down in bed he continues to be on the ventilator, his current vent setting is FiO2 of 60%, respiratory rate is 24, tidal volume 450, and FiO2 of 60%, PEEP of 12, patient blood gases showed evidence of metabolic and respiratory acidosis with hypoxemia his pO2 is about 72 and pCO2 is 56, patient is getting a central line today, he continues to have worsening kidney function, will continue current treatment plan, continue follow-up with the karla ent very closely 12/11: Patient is laying down in bed continues to be sedated on the ventilator, worsening renal function his creatinine is up to 4.5, decreased urine output, was on lasix drip without improvement and he was started on HD today for 2 hours , patient continues to be treated with cefepime for Pseudomonas pneumonia, he continued to have a septic shock he is currently on Levophed, he is currently on propofol, his prognosis continues to be guarded, patient has underlying 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%, he continues to have atrial fibrillation for which she has been on amiodarone, patient has been followed by multiple specialties including ICU/pulmonary medicine, cardiology, nephrology, infectious disease, we will continue to follow-up with the patient very closely, he may require to have hemodialysis even for short period of time to improve his kidney function as well as fluid status. 12/12: Patient remains on the ventilator, his current tidal volume is 450 FiO2 of 60%, and a PEEP of 12, he is still requiring quite a bit of sedation he is still requiring Levophed to keep his pressure up, he is getting his edema hemodialysis for the second day today, his blood pressure is marginal, we discussed with the nursing staff increasing his Levophed little bit, but he is still in atrial fibrillation with rapid ventricular response, his urine output is minimal, trying to get another 500 cc out of his body today, chest x-ray still showing evidence of right lower lobe pneumonia, will follow-up with the patient very closely at this point patient prognosis continue to be guarded, I still think that the patient can turn around, we can continue with the current treatment plan continue with cefepime continue with aggressive pulmonary toileting, continue to follow-up with the patient very closely. 12/13: Patient is laying down in bed he continues to be on the ventilator, with the AC mode, tidal volume of 450, respiratory rate of 28, FiO2 50%, PEEP of 12, chest x-ray continues to show some signs of pneumonia in the right lower lobe, minimal pulmonary vascular congestion as well, he is getting dialysis for the third day in the room, his blood pressure appears to be marginal at this time, hopefully will increase his Levophed little bit for the patient to go for dialysis at this point in time, he continues to improve slowly, he continues to be on Levophed, he continues to be on cefepime, he has been followed by multiple specialty, we will continue with the feeding tube he is currently at 35 mL/h, he seems to be tolerating this very well. 12/14--patient was seen and examined today. Remains on Levophed. Remains intubated and sedated. Underwent hemodialysis today. Vitals reviewed. WBCs 21.6, hemoglobin 10.3, platelet 92. Blood gases showed pH 7.29, pCO2 47, pO2 75. Sodium 127, potassium 5.4, BUN 70, creatinine 3.21. Infectious disease, nephrology, ICU following. 12/15--patient was seen and examined today. Family at bedside. Levophed weaned off. Patient remains intubated and sedated. Nephrology infectious disease and ICU following. Currently on cefepime. Chest x-ray showed right lower lobe infiltrate. Patient on tube feeds. Nephrology planning for hemodialysis tomorrow. Cultures remain negative. Labs reviewed. Anticoagulated with Eliquis. 12/16: Patient's kidney function test continues to deteriorate, he is going for hemodialysis today, he is hypertensive today, he is 2.2 L fluid overload, is going for dialysis today, he was off Levophed, he continues to be on cefepime, his blood gases showed worsening hypoxemia, patient is not making much urine at this point in time, we will continue with hemodialysis at this point, due to acute kidney injury that is oliguric due to acute tubular necrosis as well as vasomotor nephropathy, nephrology is following, we will follow-up with the patient very closely, patient has been on the ventilator for 10 days, will discuss with the family whether or not they want to have a trach and PEG tube placement at this point in time. 12/17: Patient continues to be on the ventilator at this time, he is vent settings were AC mode tidal volume 450 FiO2 50% PEEP of +8, chest x-ray continues to show some congestion, positive for pneumonia as well, has been seen by pulmonary medicine and critical care, continue dialysis for now, mild hyponatremia and mild improvement in kidney function, however patient is oliguric still, if he continues to be on the ventilator he may need to go and have a PEG and trach placed otherwise if the patient is not able to come off the ventilator then we will discuss with the family whether or not the patient should go on comfort care. 12/18: Patient did not make any improvement on the ventilator at this point in time, he did not have any significant response after stopping the sedation at this point in time family were at the bedside, they are electing to go for comfort wean tomorrow morning, this will be started tomorrow morning on comfort care patient will be started on morphine drip as well as Ativan as needed 12/19: Patient is started on morphine drip,, he is on terminal wean, he is off the ventilator at this point in time, we will continue to monitor the patient very closely, patient is getting Ativan as well as morphine, is imminent, family were at the bedside including his daughter and his son-in-law as well as his son and his [id number] they were brief about and dying. Discharge diagnoses: 1. Acute vent dependent hypoxemic respiratory failure due to acute systolic heart failure as well as acute left lower lobe Pseudomonas pneumonia and influenza A. 2. Pseudomonas pneumonia with septic shock . 3. Atrial fibrillation with rapid ventricular response. 4. 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 Acute kidney injury due to acute tubular necrosis with vasomotor nephropathy due to septic shock. 6. Anion gap antibiotic acidosis due to acute kidney injury 7. COPD exacerbation. 8. Mild intermittent asthma. 9. Benign prostatic hypertrophy. 10. Hereditary factor VIII deficiency. 11. Hyperlipidemia. 12. Hypertension and hypertensive cardiovascular disease. Patient Condition at Discharge: Serious Plan - Discharge Summary New Discharge Prescriptions: No Action Tamsulosin HCl [Flomax] 0.4 mg PO HS Fluticasone/Umeclidin/Vilanter [Trelegy Ellipta 200-62.5-25] 1 puff INHALATION RT-DAILY Ezetimibe [Zetia] 10 mg PO HS Sennosides [Senokot] 17.2 mg PO DAILY PRN PRN Reason: Constipation polyethylene glycoL 3350 [Miralax] 17 gm PO Q24H PRN PRN Reason: Constipation Acetaminophen [Tylenol 8 Hour] 650 mg PO Q6H PRN PRN Reason: Pain Benzonatate [Tessalon Perles] 100 mg PO TID Docusate [Colace] 100 mg PO BID@0800,1600 Rivaroxaban [Xarelto] 20 mg PO DAILY Metoprolol Tartrate [Lopressor] 150 mg PO BID tab Vancomycin 1,750 mg IVPB Q16H 10 Days each Magnesium Hydroxide [Milk of Magnesia] 2,400 mg PO Q24H PRN PRN Reason: No BM x 3 days Omeprazole 20 mg PO HS Albuterol Sulfate [Albuterol Sulfate Hfa] 1 puff INHALATION RT-Q4H PRN PRN Reason: Airway Patency Fluticasone Nasal [place] [Flonase Nasal [place]] 1 spr EA NOSTRIL Q12H PRN PRN Reason: Seasonal Allergic Rhinitis Atorvastatin [Lipitor] 40 mg PO HS Levocetirizine Dihydrochloride [Xyzal] 5 mg PO HS Dapagliflozin Propanediol [Farxiga] 10 mg PO DAILY #30 tab Budesonide/Formoterol Fumarate [Breyna 160-4.5 Mcg Inhaler] 1 puff INHALATION RT-BID@0800,1600 Cholecalciferol (Vitamin D3) [Vitamin D3 (50 Mcg = 2000 Iu)] 50 mcg PO DAILY Ondansetron [Zofran] 4 mg PO Q6HR PRN #30 tab PRN Reason: Nausea guaiFENesin SYRUP 100MG/5ML [Robitussin] 200 mg PO Q6HR PRN ml PRN Reason: Cough Naloxone HCl [Narcan] 4 mg NASAL ONCE PRN PRN Reason: OVERDOSE SUSPECTED Ipratropium-Albuterol Nebulize [Duoneb 0.5 mg-3 mg/3 ml Soln] 3 ml INHALATION RT-Q6H Furosemide [Lasix] 40 mg PO BID Potassium Chloride [Klor-Con M20] 20 meq PO DAILY Spironolactone [Aldactone] 25 mg PO DAILY tab Losartan [Cozaar] 25 mg PO DAILY tab HYDROcodone/APAP 5-325MG [[place] 5-325] 1 tab PO Q6HR PRN #12 tab PRN Reason: Pain Venlafaxine HCl ER [Effexor Xr] 37.5 mg PO HS predniSONE See Taper PO DAILY Ammonium Lactate Cream [Lac-Hydrin 12% Cream] 1 applic TOPICAL Q12H PRN PRN Reason: itching due to dermatitis Discharge Medication List Tamsulosin HCl [Flomax] 0.4 mg PO HS 05/29/18 [History] Albuterol Sulfate [Albuterol Sulfate Hfa] 1 puff INHALATION RT-Q4H PRN 10/07/21 [History] Fluticasone Nasal [place] [Flonase Nasal [place]] 1 spr EA NOSTRIL Q12H PRN 06/02/22 [History] Fluticasone/Umeclidin/Vilanter [Trelegy Ellipta 200-62.5-25] 1 puff INHALATION RT-DAILY 09/07/23 [History] Atorvastatin [Lipitor] 40 mg PO HS 10/16/23 [History] Ezetimibe [Zetia] 10 mg PO HS 10/16/23 [History] Levocetirizine Dihydrochloride [Xyzal] 5 mg PO HS 10/16/23 [History] Dapagliflozin Propanediol [Farxiga] 10 mg PO DAILY #30 tab 03/27/24 [Rx] Budesonide/Formoterol Fumarate [Breyna 160-4.5 Mcg Inhaler] 1 puff INHALATION RT-BID@0800,1600 09/13/24 [History] Cholecalciferol (Vitamin D3) [Vitamin D3 (50 Mcg = 2000 Iu)] 50 mcg PO DAILY 10/21/24 [History] Ondansetron [Zofran] 4 mg PO Q6HR PRN #30 tab 10/25/24 [Rx] guaiFENesin SYRUP 100MG/5ML [Robitussin] 200 mg PO Q6HR PRN ml 10/30/24 [Rx] Acetaminophen [Tylenol 8 Hour] 650 mg PO Q6H PRN 11/25/24 [History] Benzonatate [Tessalon Perles] 100 mg PO TID 11/25/24 [History] Docusate [Colace] 100 mg PO BID@0800,1600 11/25/24 [History] Furosemide [Lasix] 40 mg PO BID 11/25/24 [History] Ipratropium-Albuterol Nebulize [Duoneb 0.5 mg-3 mg/3 ml Soln] 3 ml INHALATION RT-Q6H 11/25/24 [History] Naloxone HCl [Narcan] 4 mg NASAL ONCE PRN 11/25/24 [History] Potassium Chloride [Klor-Con M20] 20 meq PO DAILY 11/25/24 [History] Rivaroxaban [Xarelto] 20 mg PO DAILY 11/25/24 [History] Sennosides [Senokot] 17.2 mg PO DAILY PRN 11/25/24 [History] polyethylene glycoL 3350 [Miralax] 17 gm PO Q24H PRN 11/25/24 [History] HYDROcodone/APAP 5-325MG [[place] 5-325] 1 tab PO Q6HR PRN #12 tab 12/04/24 [Rx] Losartan [Cozaar] 25 mg PO DAILY tab 12/04/24 [Rx] Metoprolol Tartrate [Lopressor] 150 mg PO BID tab 12/04/24 [Rx] Spironolactone [Aldactone] 25 mg PO DAILY tab 12/04/24 [Rx] Vancomycin 1,750 mg IVPB Q16H 10 Days each 12/04/24 [Rx] Ammonium Lactate Cream [Lac-Hydrin 12% Cream] 1 applic TOPICAL Q12H PRN 12/06/24 [History] Magnesium Hydroxide [Milk of Magnesia] 2,400 mg PO Q24H PRN 12/06/24 [History] Omeprazole 20 mg PO HS 12/06/24 [History] Venlafaxine HCl ER [Effexor Xr] 37.5 mg PO HS 12/06/24 [History] predniSONE See Taper PO DAILY 12/06/24 [History] Follow up Appointment(s)/Referral(s): Buzz Zimmerman MD [Primary Care Provider] - 1-2 days
[2024-12-19 11:26] VITALS: PULSE 125; RESP 25
[2024-12-19] MEDS: SCOPOLAMINE 1 MG/72 HR PATCH TRANSDERM SCH (11:30)
--- NOTE | 2024-12-19 12:41 | P.PN ---
Subjective Progress Note Date: 12/09/24 Principal diagnosis: Reason for follow-up is acute influenza A/Pseudomonas pneumonia Patient is a 84-year-old male with a past medical history significant for atrial fibrillation diabetes mellitus DVT hypertension hyperlipidemia recent admission to the hospital diagnosed with MRSA bacteremia source was likely pneumonia, did have a negative LIS presenting back to the hospital for increasing shortness of breath has been diagnosed with sepsis secondary pneumonia also tested positive for influenza A sputum showing Pseudomonas. On today's evaluation that is 12/09/2024, patient has been afebrile, patient is intubated on the vent FiO2 is currently at 50% patient is requiring low-dose pressor support no significant purulent secretions in the ET or any other changes reported by nursing staff. Patient white count is down to 29.2, creatinine is 2.58 Objective - Vital Signs Vital signs: Vital Signs Temp 97.0 F L 12/09/24 08:00 Pulse 104 H 12/09/24 11:59 Resp 24 12/09/24 11:00 BP 106/82 12/09/24 09:15 Pulse Ox 93 L 12/09/24 11:00 FiO2 60 12/09/24 11:55 Intake & Output 12/08/24 12/09/24 12/09/24 18:59 06:59 18:59 Intake Total 6476.873 4085.316 333.987 Output Total 920 815 190 Balance 439.621 661.316 143.987 Weight 122.924 kg Intake: IV 300 243 65 Cefepime 2 gm In Sodium 100 Chloride 0.9% 100 ml @ 25 mls/hr IVPB Q12H [facility] Rx# :[id number] Pressure Bag 33 15 Sodium Chloride 0.9% 1, 300 000 ml @ 100 mls/hr IV . Q10H [facility] Rx#:[id number] kvo 110 50 Intake, IV Titration 729.621 738.316 268.987 Amount Amiodarone 450 mg In 250 Dextrose 5% in Water 250 ml @ 0.5 MG/MIN 16.667 mls/hr IV .Q15H [facility] Rx#: [id number] Heparin Sod,Pork in 0.45% 152.804 92.354 NaCl 25,000 unit In 0.45 % NaCl 1 250ml.bag @ 8. 889 UNITS/KG/HR 10 mls/hr IV .Q24H [facility] Rx#: [id number] Norepinephrine 4 mg In 269.598 141.665 173.233 Sodium Chloride 0.9% 250 ml @ 0.03 MCG/KG/MIN 12. 443 mls/hr IV .[id number] [facility] Rx#:[id number] Sodium Chloride 0.9% 1, 70 10 000 ml @ 10 mls/hr IV . Q24H [facility] Rx#:[id number] propofoL 1,000 mg In 237.219 244.297 95.754 Empty Bag 1 bag @ 15 MCG/ KG/MIN 9.798 mls/hr IV . [id number] [facility] Rx#:[id number] Tube Feeding 270 405 Other 60 90 Output: Urine 920 815 190 Other: Voiding Method Indwelling Catheter Indwelling Catheter Indwelling Catheter ABP, PAP, CO, CI - Last Documented Arterial Blood Pressure 106/56 - Exam GENERAL DESCRIPTION: An elderly male intubated on the vent RESPIRATORY SYSTEM: Unlabored breathing , decreased breath sounds at bases HEART: S1 S2 regular rate and rhythm , ABDOMEN: Soft , no tenderness EXTREMITIES: Mild swelling to the leg no redness - Labs CBC & Chem 7: 12/10/24 06:00 12/10/24 06:00 Labs: Abnormal Lab Results - Last 24 Hours (Table) 12/08/24 12/08/24 12/08/24 Range/Units 17:34 18:02 23:30 WBC (3.8-10.6) k/uL RBC (4.30-5.90) m/uL Hgb (13.0-17.5) gm/dL Hct (39.0-53.0) % RDW (11.5-15.5) % Neutrophils # (1.3-7.7) k/uL Lymphocytes # (1.0-4.8) k/uL APTT (22.0-30.0) sec ABG pH (7.35-7.45) ABG pO2 (83-108) mmHg ABG O2 Saturation (94-97) % Hemoglobin (13.0-17.5) gm/dL Sodium (137-145) mmol/L Carbon Dioxide (22-30) mmol/L BUN (9-20) mg/dL Creatinine (0.66-1.25) mg/dL Glucose (74-99) mg/dL POC Glucose (mg/dL) 187 H 172 H 169 H (70-110) mg/dL Calcium (8.4-10.2) mg/dL 12/09/24 12/09/24 12/09/24 Range/Units 00:00 04:00 04:00 WBC 29.2 H (3.8-10.6) k/uL RBC 4.03 L (4.30-5.90) m/uL Hgb 11.4 L (13.0-17.5) gm/dL Hct 36.1 L (39.0-53.0) % RDW 15.7 H (11.5-15.5) % Neutrophils # 28.2 H (1.3-7.7) k/uL Lymphocytes # 0.4 L (1.0-4.8) k/uL APTT 37.5 H (22.0-30.0) sec ABG pH (7.35-7.45) ABG pO2 (83-108) mmHg ABG O2 Saturation (94-97) % Hemoglobin (13.0-17.5) gm/dL Sodium 134 L (137-145) mmol/L Carbon Dioxide 21 L (22-30) mmol/L BUN 56 H (9-20) mg/dL Creatinine 2.58 H (0.66-1.25) mg/dL Glucose 188 H (74-99) mg/dL POC Glucose (mg/dL) (70-110) mg/dL Calcium 7.6 L (8.4-10.2) mg/dL 12/09/24 12/09/24 12/09/24 Range/Units 05:37 05:46 10:16 WBC (3.8-10.6) k/uL RBC (4.30-5.90) m/uL Hgb (13.0-17.5) gm/dL Hct (39.0-53.0) % RDW (11.5-15.5) % Neutrophils # (1.3-7.7) k/uL Lymphocytes # (1.0-4.8) k/uL APTT 47.8 H (22.0-30.0) sec ABG pH 7.32 L (7.35-7.45) ABG pO2 72 L (83-108) mmHg ABG O2 Saturation 93.8 L (94-97) % Hemoglobin 11.4 L (13.0-17.5) gm/dL Sodium (137-145) mmol/L Carbon Dioxide (22-30) mmol/L BUN (9-20) mg/dL Creatinine (0.66-1.25) mg/dL Glucose (74-99) mg/dL POC Glucose (mg/dL) 194 H (70-110) mg/dL Calcium (8.4-10.2) mg/dL 12/09/24 Range/Units 11:59 WBC (3.8-10.6) k/uL RBC (4.30-5.90) m/uL Hgb (13.0-17.5) gm/dL Hct (39.0-53.0) % RDW (11.5-15.5) % Neutrophils # (1.3-7.7) k/uL Lymphocytes # (1.0-4.8) k/uL APTT (22.0-30.0) sec ABG pH (7.35-7.45) ABG pO2 (83-108) mmHg ABG O2 Saturation (94-97) % Hemoglobin (13.0-17.5) gm/dL Sodium (137-145) mmol/L Carbon Dioxide (22-30) mmol/L BUN (9-20) mg/dL Creatinine (0.66-1.25) mg/dL Glucose (74-99) mg/dL POC Glucose (mg/dL) 190 H (70-110) mg/dL Calcium (8.4-10.2) mg/dL Microbiology - Last 24 Hours (Table) 12/07/24 09:37 Blood Culture - Preliminary Blood 12/06/24 20:40 Gram Stain - Preliminary Sputum Sputum Culture - Preliminary Pseudomonas aeruginosa Assessment and Plan (1) Influenza A Current Visit: Yes Status: Acute Code(s): J10.1 - FLU DUE TO OTH IDENT INFLUENZA VIRUS W OTH RESP MANIFEST SNOMED Code(s): 618181476 (2) Leukocytosis Current Visit: Yes Status: Acute Code(s): D72.829 - ELEVATED WHITE BLOOD CELL COUNT, UNSPECIFIED SNOMED Code(s): 010987792 (3) Pneumonia Current Visit: No Status: Acute Code(s): J18.9 - PNEUMONIA, UNSPECIFIED ORGANISM SNOMED Code(s): 753576685 (4) Sepsis Current Visit: No Status: Acute Code(s): A41.9 - SEPSIS, UNSPECIFIED ORGANISM SNOMED Code(s): 04360723 Plan: 1patient presented to hospital with sepsis in this patient who did have hypotension requiring pressor support elevated white count source is multifactorial possible component of pneumonia with the sputum not showing Pseudomonas aeruginosa and recently did have a history of MRSA pneumonia for the patient has received adequate vancomycin which has been discontinued. 2 Patient also tested positive for influenza, patient is covered with Tamiflu to finish a 5-day course of therapy 3-patient being treated with cefepime for the Pseudomonas pneumonia Dictation was produced using [employer] dictation software. please excuse any grammatical, word or spelling errors. Time with Patient: Less than 30
--- NOTE | 2024-12-19 16:03 | P.PN ---
Subjective Progress Note Date: 12/19/24 This is an 84-year-old white male familiar to my service, patient was recently seen in the hospital for MRSA bacteremia, workup for endocarditis and transesophageal echocardiogram was unremarkable and there was no evidence of vegetations. Patient was discharged to shelter on vancomycin and he had a PICC line in place. His transesophageal echo on his last admission showed ejection fraction of 45%, patient is also known to have history of paroxysmal atrial fibrillation as well as history of hereditary factor VIII deficiency. In addition to all of this the patient is known to have history of mild COPD, hiatal hernia, hypertension, and yesterday shelter was concerned about the patient having episodes of shortness of breath. Patient received diuretics, received bronchodilators, this was done upon arrival to the ER, patient developed worsening atrial fibrillation with RVR. I was notified about this patient from the ER, initially recommended amiodarone and amiodarone drip because of his atrial fibrillation with RVR, cardiology was consulted, his oxygenation while in the ER was getting worse in spite of diuretics his chest x- ray did not show any evidence of significant pulmonary edema, patient was intubated shortly after upon my recommendation, and arrangements made for the patient to transfer to the ICU late at night. In the meantime patient was noted to have leukocytosis, WBC count as high as 43.6, hemoglobin was 12.2. Basic metabolic profile was normal except for slightly low bicarb of 18 BUN 35 creatinine 1.28. Chest x-ray this morning showed normal pulmonary vasculature there was no clear-cut evidence of pneumonia or any pleural effusion, no evidence of congestive heart failure, patient did receive multiple fluid boluses yesterday for low blood pressure after intubation. Today the patient is on assist-control rate of 24 tidal volume 500 FiO2 90% and PEEP of 8 which I increased to 10 ABG remains marginal with a pO2 of 85 pCO2 44 pH of 7.31 patient has been on Xarelto for history of chronic atrial fibrillation presently I would recommend that we place the patient on heparin, patient is still receiving amiodarone at 0.5 mg/min he is also on norepinephrine at 0.06 mcg/kg/min propofol at 50 mcg/kg/min IV fluid 100 cc/h 0.9 normal saline. Went ahead and establish a right radial arterial line, patient does have a PICC line in place hence no need to change PICC line unless the patient comes back with positive blood cultures. In the meantime we are recommending cefepime and vancomycin. 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 Knowing this, possibility of pulmonary embolism is likely and I am recommending that we heparinized the patient for now, once his renal functioning improved may consider sending him down for a CT angiogram of the chest. Seen today on 12/08/2024, patient remains in the ICU, intubated mechanically ventilated, he is on assist-control rate of 24 tidal volume 500 FiO2 90% PEEP of 12 ABG showed a pO2 of 125 pCO2 50 pH of 7.25 hence tidal volume was increased to 550, FiO2 was cut down to 60%, kept the PEEP at 12. Chest x-ray is showing evidence of worsening interstitial edema. Patient is on diuretics Lasix 80 mg IV push twice daily. Patient is still requiring pressors he is on norepinephrine at 0.06 mcg/kg/min propofol at 30 mcg/kg/min IV fluid was 100 cc/h, however considering his chest x-ray I recommended we cut it down to KVO. Patient remains on amiodarone at 0.5 mg/min antibiotics schaefer he is on cefepime and vancomycin patient had recent MRSA bacteremia he is also on Tamiflu for acute influenza. For his DVT and possible pulmonary embolism patient remains on heparin as per protocol. Patient is sedated, still hemodynamically unstable requiring norepinephrine, patient is receiving GI DVT prophylaxis is also on enteral feeding for nutritional support. Blood cultures are still pending no plans to address weaning today since the patient is still requiring relatively high FiO2 and high PEEP. Renal functioning seems to be a bit worse, being addressed by nephrology on the case. Patient may have developed acute kidney injury, likely cardiorenal in nature. And could be related to his low blood pressure on presentation /acute tubular necrosis. 12/09/2024: Patient remains in the ICU, intubated mechanically ventilated, he is on assist-control rate of rr 24 tidal volume 550, peep at 12, fio2 60. ABG showed pO2 of 72, pCO2 43, and pH of 7.32. Overnight heart rate was in the 140s, Dr. Taylor was called and he gave Lopressor PO. CXR showing evidence of stable interstitial pattern with small effusion and basilar subsegmental consolidation. Patient had lower extremity Doppler on 12/07 showing chronic nonoccluding right lower extremity DVT for which she remains on heparin as per protocol. Patient is sedated, still hemodynamically unstable requiring norepinephrine, patient is receiving GI DVT prophylaxis and is also on enteral feeding 25 at goal. Fluid balance is approximately positive 1 L in the last 24 hours. Levo at 7.63 mg/min, heprin at 10, amio at .5, prop 50. Lasix at 80 IV BID. Preliminary Gram stain showed Pseudomonas and blood cultures have been negative through 48 hours. . Creatinine today 2.58 which is increased from yesterday of 1.89. Nephrology is following, they added 2 amp sodium bicarb IV push yesterday and stopped Cozaar, Aldactone, and Farxiga. Nephrology considers DEENA secondary to ATN secondary to septic shock as patient's baseline creatinine is usually near 1. Progress note dated December 10, 2024. 84-year-old male seen today in room 254. He remains on the mechanical ventilator. He is on volume assist-control mode, rate 24, tidal volume 450, FiO2 60%, PEEP of 12. Blood gases show a pO2 of 75, pCO2 of 53, pH of 7.23. The patient is getting saline at 20 cc an hour, propofol at 20 mcg/kg/min, Levophed at 2 mcg/min. In addition, the patient is getting heparin via weight- based protocol, and vital AF at 25 cc an hour which is goal. The patient con tinues on Tamiflu, and cefepime. His peak airway pressures 33, with a plateau pressure of 22. Current labs include a white count of 27.5, hemoglobin 11.6, hematocrit 36.2, and a platelet count of 139,000. PTT is 46.6. Sodium 134, potassium 4.8, chlorides 101, CO2 21, BUN 68, and creatinine 3.51. Glucose is 136. Calcium is 8. Sputum from December 06 is positive for Pseudomonas aeruginosa. Chest x-ray earlier from this morning, shows a stable interstitial pattern with small effusion. Chest x-ray after central line insertion shows a properly placed central line, with the tip of the catheter at the junction of superior vena cava and right atrium. Progress note dated December 11, 2024. 84-year-old male seen today in room 254. He remains on the mechanical ventilator. He is on volume assist-control mode, rate 28, tidal volume of 450, FiO2 60%, and PEEP of 12. His peak airway pressure is 29, with a plateau pressure of 22. Blood gases show pH 7.2, pCO2 51, pO2 96. The patient is get ting NS at 20 cc/h and propofol at 40 mcg/kg/min, no levo since 4 AM this morning. In addition the patient is off heparin currently due to bleeding around central line that was placed yesterday.Vital AF at 25 cc an hour and a goal of 35. The patient continues on cefepime (day 3) and completed Tamiflu. Current labs include WBC of 18.6, hemoglobin of 10.8, hematocrit of 34.7, and platelet count of 115,000. Sodium is 131, potassium 5.5, chloride 100, BUN 89, and creatinine 4.26. Glucose is 138. Calcium 7.9. Urine output remains poor, 690 mL over the last 24 hours. Chest x-ray from earlier from this morning shows blunting of the costophrenic angle, cardiomegaly, pulmonary vascular congestion and bilateral pleural effusions. Patient getting dialysis catheter placed this morning. Progress note dated December 12, 2024. 84-year-old male seen today in room 254. No significant overnight events, yesterday had dialysis catheter placed and received first round of dialysis. He remains on the mechanical ventilator. He is on volume assist-control mode,rr 28, tv 450, fio2 60%, and peep 12. The delta between the peak airway pressure and plateau pressure was 11. Blood gases show pO2 of 74, pCO2 56, and pH of 7.21 the patient is getting NS at 10ml/hr and propofol at 60. Patient is on lev o at 0.05. Currently heparin drip on hold. Vital AF at 35. The patient continues on cefepime (day 4) and completed Tamiflu already. Current labs include WBC of 25.8, hemoglobin of 11, platelet count of 122,000, sodium 128, potassium 6, bicarb 20, BUN 81, creatinine 4.31, glucose 123, and calcium 7.7. They took off 1.5 L during hemodialysis yesterday. Chest x-ray shows stable/potentially slightly worsening right basilar airspace opacities.` Progress note dated December 13, 2024. 84-year-old male seen today in room 254. No significant overnight events, yesterday received another round of dialysis. Plan is to receive dialysis again today, potentially sled. He remains on mechanical ventilator on volume assist- control mode with a respiratory rate of 28, tidal volume of 450, FiO2 60%, and PEEP of 12. The delta between the peak airway pressure and plateau pressure was 10. Patient noted to have significant cuff leak. Blood gases show pO2 106, pCO2 48, and pH 7.25. The patient is getting NS@10 mL/h and propofol at 60. Patient is on levo at 11.4 mcg/min. Patient remains off heparin for 2 days now after having bleeding from central line. Getting vital AF at 35 which is goal. On amiodarone 200 twice daily and Lopressor 25 3 times daily for A-fib. Patient continues on cefepime (day 5) and has already completed 5-day course Tamiflu. Current labs include WBC of 26.6, hemoglobin of 10.6, platelet count 107,000, sodium 127, potassium 5.9, bicarb 19, BUN 83, creatinine 3.94, calcium 7.8, and albumin 2.5. They took off 1.5 L during hemodialysis yesterday. Chest x-ray sh ows improvement from prior in the right lower lobe, stable left pleural effusion still noted. Progress note dated December 14, 2024. 84-year-old male seen today in room 254. No significant overnight events, yesterday received sled and took off 2.4L. Patient remains on mechanical ventilator on volume assist-control mode with respiratory rate of 28, tidal volume 450, FiO2 50%, and PEEP of 10. The delta between the peak airway pressure and plateau pressure was 8. Blood gases show pCO2 75, pCO2 47, and pH 7.29. The patient is getting NS@10 mL/h and propofol at 60 mcg/kg/min. Patient was on levo at 9 mcg/min. For DVT prophylaxis patient is on Lovenox SQ 40 daily. Getting vital AF at 25 which is goal. On amiodarone 200 mg twice daily and Lopressor 25 mg 3 times daily for A-fib. Patient continues on cefepime (day 6). Current labs include WBC 21.6, hemoglobin 10.3, platelet count 90,000, sodium 127, potassium 5.4, BUN 70, creatinine 3.21, calcium 7.9. They took off 2.4 L yesterday during dialysis. Chest x-ray shows no significant interval change in the pulmonary vascular congestion and bilateral small pleural effusions. On December 15, 2024 in follow-up in the intensive care unit. He remains intubated on mechanical ventilator. Currently assist-control mode with a respir atory rate of 28, tidal line 450, FiO2 50% and a PEEP of 10. Morning blood gases revealed a PaO2 of 61, pCO2 43 and a pH of 7.33. Chest x-ray continues to show a right lower lobe infiltrate. He is having episodes of desaturations while being repositioned by staff. He is sedated on propofol at 45 mcg/kg/min. Requiring norepinephrine at 2.5 mcg/mi. Normal saline at 20 mL/h. He is being nourished with vital AF at 25 mL/h which is goal. He remains on cefepime for his Pseudomonas aeruginosa positive sputum , completed 7 days course. Blood cultures revealed no growth. White count 18.7. Hemoglobin 10.1. Platelets 87,000. Sodium 125. Potassium 5.1. Bicarb 21. BUN 73. Creatinine 2.98. Glucose 126. He remains on DuoNeb inhalations, Solu-Medrol, Pulmicort inhalations. Anticoagulated with Eliquis. on 12/16/2024, the patient remains intubated on the mechanical ventilator. A [age]-year-old male patient who had a recent hospitalization for a MRSA sepsis discharged to ECF to receive IV vancomycin treatment via PICC line in an ECF. Noted his endocarditis workup was negative. The patient is known to have COPD, hypertension in addition to a combination of other comorbidities which include chronic A-fib, BPH, previous history of DVT, hypertension and he underwent a recent right hip arthroplasty on 10/25/2024. He also has mild chronic systolic heart failure with an EF of around 40 to 45% and his endocarditis workup was negative. Other comorbidities include BPH, nephrolithiasis with previous bilateral ureteral stent placement and previous history of frequent urine tract infection. During this current admission, the patient had a COPD exacerbation with influenza A positive and subsequently he developed pseudomonal pneumonia. At this point in time, the patient is intubated on mechanical ventilator. He was intubated on the day of admission and he remains on assist-control mode of mechanical ventilation at rate of 28, tidal volume of 450, FiO2 of 50% with a PEEP of 10. Blood gas showed pH of 7.28 with a pCO2 of 41 and pO2 of 65. Most recent sputum samples from 12/06/2024 was positive for Pseudomonas aeruginosa and the patient remains on IV cefepime. Blood cultures were essentially negative. Chest x-ray from today shows interstitial bilateral pulmonary filtrates essentially involving the lower lobes. Tube is in a good location. No airspace disease or consolidations. Remains on DuoNeb nebulized treatments [id number]. Remains on IV Solu-Medrol 60 mg every 6 hours. This morning, he is sedated on propofol which is running at 45 mcg/kg/min. He is on vital AF at rate of 25 cc an hour which is at goal. He is also off pressors . Noted during the course of this current admission, the patient sustained an acute kidney injury. He was seen by nephrology and started on hemodialysis. The patient is receiving hemodialysis periodically. Most recent labs from today showing a sodium level of 123, potassium of 5.8, bicarb of 17, BUN of 102 and a creatinine of 4.07. The CBC shows a white cell count of 23 with a hemoglobin 10.2 and a platelet count of 107. The fluid balance over the past 24 hours is +2.5 L. Patient patient is in A-fib with a controlled rate. He is on metoprolol for rate control. He is also on amiodarone 200 mg p.o. twice a day and anticoagulation with Eliquis 2.5 mg p.o. twice a day. He is on IV Protonix. Last HD was on 12/14/24 and he is planned to have HD today and he is anuric. On 12/17/2024, the patient is being seen for a follow-up. The patient has been off sedation for the past 24 hours. Neurologically, remains deeply sedated and unresponsive. Does not respond to deep painful stimulation despite being off sedation for the past 24 hours. At the same time, the patient has been switched to a pressure control mode of mechanical ventilator. Remains intubated on the mechanical ventilator with a pressure control mode at rate of 20, pressure control of 20 cm of water with a inspiratory time of 0.8 and an FiO2 of 50% with a PEEP of 8. Blood gas showed a pH of 7.39 with a pCO2 of 32 and pO2 of 64. Chest x-ray findings from today are essentially unchanged and the patient continues to have stable right basilar patchy airspace opacities and pulm vascular congestion. The patient also has a small right-sided pleural effusion and stable positioning of the lines and tubes. Hemodynamically, the patient is requiring low-dose norepinephrine which is running at 0.03 mcg/kg/min. The patient remains in atrial fibrillation with a controlled rate. The patient underwent hemodialysis yesterday and a total of 3.8 L of ultrafiltration was performed. The patient is on enteral feeding for nutritional support with vital AF at rate of 25 cc an hour. Blood work from today shows a white cell count of 21.6 with a hemoglobin 9.4 and a platelet count of 103. The sodium is at 124, potassium is at 5.8, bicarb is at 18 with a BUN of 100 and a creatinine of 3.8. Chloride is at 92. Afebrile. No other significant events overnight. In terms of atrial fibrillation, the patient is currently on amiodarone 20 mg p.o. twice daily, metoprolol 25 mg p.o. 3 times daily and the patient remains on anticoagulation with Eliquis. Had a lengthy discussion with the family. The family showed no interest hours long-term vent care, then no interest towers tracheostomy or PEG tube insertion. 12/18/2024, the patient remains unresponsive despite being off propofol for the past 48 hours. The patient remains intubated on the mechanical ventilator on pressure control mode of mechanical ventilation at rate of 20, pressure control of 20 cm of water with an expiratory time of 0.8 and a PEEP of 8 and FiO2 of 50%. Chest x-ray findings are essentially unchanged. Blood gas from today showed a pH of 7.44 with pCO2 31 and pO2 of 79. He is undergoing daily hemodialysis. Fluid balance for the past 48 hours is -3.5 L of -2.2 L. He remains atrial fibrillation. He is having episodes of tachycardia. He remains on norepinephrine at a rate of 0.05 mcg/kg/min. White cell count is 17.6 with a hemoglobin 9.9 and a platelet count of 120. Sodium levels at 127, BUN is 94 with a creatinine of 3.6. He remains oliguric. Potassium level is at 5.7. Serum bicarb is at 18. He remains on enteral feeding for nutritional support. He is on vital AF at rate of 25 cc an hour. Hide the next discussion with the family. The son and the daughter were both at the bedside. We discussed the current condition and the prognosis which is essentially poor and the family is interested in end-of-life care to be done within next 24 hours. Meanwhile, we will continue our supportive care for now. On today's evaluation of 12/19/2024, the patient is being seen for a follow-up. She the patient has been off propofol for more than 72 hours. The patient remains completely unresponsive. Not following commands. Grimaces only to deep painful stimulation. Remains on mechanical ventilator. This morning, he is on pressure control mode of mechanical ventilation at rate of 20, pressure control of 20, FiO2 of 50% with a PEEP of 8. Blood gas showed a pH of 7.45 with a pCO2 of 31 and pO2 of 74. No pressors for now. Underwent hemodialysis yesterday with a total of 2 L of ultrafiltration. Chest x-ray findings are unchanged. White cell count is at 18 with a hemoglobin 9.9 and platelet count of 159. There is a sodium level is at 125, BUN is 92 with a creatinine of 3.68. Potassium level is at 5.8. Family is at the bedside. Daughter and son are both in the room and they want to proceed with end-of-life care. They are interested in extubating the patient today. Based on that, morphine drip was started at 5 mg an hour and subsequently the patient will be extubated for end-of-life care per family's wishes. I think this choice is quite reasonable. Objective - Vital Signs Vital signs: Vital Signs Temp 99.5 F 12/19/24 08:00 Pulse 123 H 12/19/24 08:00 Resp 21 12/19/24 08:00 BP 131/87 12/18/24 19:30 Pulse Ox 93 L 12/19/24 08:00 FiO2 50 12/19/24 08:00 Intake & Output 12/18/24 12/19/24 12/19/24 18:59 06:59 18:59 Intake Total 1410.944 583.585 151.347 Output Total 4400 5 0 Balance -2989.056 578.585 151.347 Weight 128 kg Intake: IV 156 143 26 Pressure Bag 36 33 6 kvo 120 110 20 Intake, IV Titration 254.944 165.585 45.347 Amount Norepinephrine 4 mg In 254.944 165.585 45.347 Sodium Chloride 0.9% 250 ml @ 0.03 MCG/KG/MIN 12. 443 mls/hr IV .[id number] [facility] Rx#:[id number] Oral 0 Tube Feeding 300 275 50 Hemodialysis 400 Other 300 30 Output: Urine 0 5 0 Hemodialysis 2400 Hemodialysis Net Amount 1999 Other: Voiding Method Indwelling Catheter Indwelling Catheter Indwelling Catheter ABP, PAP, CO, CI - Last Documented Arterial Blood Pressure 123/55 - Exam GENERAL EXAM: Intubated, sedated 84-year-old male patient, in no apparent distress. Intubated on mechanical ventilator. Orogastric and orotracheal tube are both in place. Peak airway pressure is around 24 HEAD: Normocephalic. EYES: Sluggish reaction of pupils, equal size. NOSE: Clear with pink turbinates. THROAT: Oral endotracheal and gastric tube secured in place, no erythema or exudates. NECK: Left IJ triple-lumen catheter in place. No masses, no JVD. CHEST: No chest wall deformity. LUNGS: Equal air entry with bilateral scattered rhonchi. CVS: S1 and S2 normal with no audible murmur, regular rhythm. ABDOMEN: No hepatosplenomegaly, normal bowel sounds, no guarding or rigidity. SPINE: No scoliosis or deformity SKIN: No rashes CENTRAL NERVOUS SYSTEM: No focal deficits, tone is normal in all 4 extremities. EXTREMITIES: Right radial arterial line in place. There is 1+ peripheral edema. No clubbing, no cyanosis. Peripheral pulses are intact. - Labs CBC & Chem 7: 12/19/24 04:20 12/19/24 04:20 Labs: Abnormal Lab Results - Last 24 Hours (Table) 12/18/24 12/19/24 12/19/24 Range/Units 17:57 04:20 04:20 WBC 18.3 H (3.8-10.6) k/uL RBC 3.58 L (4.30-5.90) m/uL Hgb 9.9 L (13.0-17.5) gm/dL Hct 29.6 L (39.0-53.0) % RDW 16.3 H (11.5-15.5) % Neutrophils # 17.4 H (1.3-7.7) k/uL Lymphocytes # 0.3 L (1.0-4.8) k/uL ABG pCO2 (35-45) mmHg ABG pO2 (83-108) mmHg Hemoglobin (13.0-17.5) gm/dL Sodium 125 L (137-145) mmol/L Potassium 5.8 H (3.5-5.1) mmol/L Chloride 92 L (98-107) mmol/L Carbon Dioxide 21 L (22-30) mmol/L BUN 92 H (9-20) mg/dL Creatinine 3.68 H (0.66-1.25) mg/dL Glucose 107 H (74-99) mg/dL POC Glucose (mg/dL) 111 H (70-110) mg/dL Calcium 7.7 L (8.4-10.2) mg/dL 12/19/24 Range/Units 05:39 WBC (3.8-10.6) k/uL RBC (4.30-5.90) m/uL Hgb (13.0-17.5) gm/dL Hct (39.0-53.0) % RDW (11.5-15.5) % Neutrophils # (1.3-7.7) k/uL Lymphocytes # (1.0-4.8) k/uL ABG pCO2 31 L (35-45) mmHg ABG pO2 74 L (83-108) mmHg Hemoglobin 9.7 L (13.0-17.5) gm/dL Sodium (137-145) mmol/L Potassium (3.5-5.1) mmol/L Chloride (98-107) mmol/L Carbon Dioxide (22-30) mmol/L BUN (9-20) mg/dL Creatinine (0.66-1.25) mg/dL Glucose (74-99) mg/dL POC Glucose (mg/dL) (70-110) mg/dL Calcium (8.4-10.2) mg/dL Assessment and Plan Plan: Acute hypoxemic respiratory failure secondary to suspected healthcare acquired pneumonia, sputum culture positive for Pseudomonas aeruginosa currently maintained on mechanical ventilation, intubated on 12/06/2024. Completed the course of cefepime. The patient remains on the mechanical ventilator, pressure control mode.. Chest x-ray findings are stable and unchanged. The patient was taken off the sedation. Remains unresponsive while being off propofol for more than 72 hours. Mental status remains quite diminished. The patient remains unresponsive. Remains intubated on mechanical ventilator. Chest x-ray findings are essentially unchanged. Persistent sepsis and septic shock, secondary to MRSA bacteremia persistent positive blood cultures on 11/25/2024. Follow-up blood cultures revealed no gr owth, the patient is currently off pressors Recent discharge on 12/04/2024 to an ECF with PICC line and vancomycin in the LLE Moderate LV dysfunction, with diffuse interstitial edema Acute kidney injury secondary to hypotension, and possible acute tubular necrosis, currently on hemodialysis, left femoral HD cath History of atrial fibrillation with RVR, anticoagulated with Eliquis, maintained on a combination of amiodarone 200 mg p.o. twice a day, metoprolol anticoagulation with Eliquis Acute on chronic systolic congestive heart failure COPD exacerbation, he remains on DuoNeb updrafts and IV Solu-Medrol History of BPH History of factor VIII deficiency Possible pulmonary embolism History of DVT Benign essential hypertension Acute influenza A infection, completed a course of Tamiflu History of previous right total hip arthroplasty Plan: I had a lengthy discussion with the family members. The family understands the current situation. They do also understand the poor prognosis. They do appreciate the work has been done on this patient over the past several weeks. They are interested in end-of-life care. Based on that, the patient was started on a morphine drip. The plan is to extubate the patient and proceed with end-of-life care today. I did update the family on the condition. I answered all their questions to his satisfaction. Condition remains critical. Will continue to follow. This evaluation was done more than 30 minutes. Time with Patient: Greater than 30
== END 2024-12-19 11:36 | disposition expired | DRG 870 ==
LOC: EC 13:10 → 3SCARD 15:49 → 2SICU 19:23
PROVIDERS: ADMIT Internal Medicine; ATTEND Internal Medicine
PROC: 3E043XZ Introduction of Vasopressor into Central Vein, Percutaneous Approach (ICD-10-PCS; 2024-12-06)
PROC: 5A09357 Assistance with Respiratory Ventilation, Less than 24 Consecutive Hours, Continuous Positive Airway Pressure (ICD-10-PCS; 2024-12-06)
PROC: 5A1955Z Respiratory Ventilation, Greater than 96 Consecutive Hours (ICD-10-PCS; principal; 2024-12-07)
PROC: 03HY32Z Insertion of Monitoring Device into Upper Artery, Percutaneous Approach (ICD-10-PCS; 2024-12-07)
PROC: 4A133B1 Monitoring of Arterial Pressure, Peripheral, Percutaneous Approach (ICD-10-PCS; 2024-12-07)
PROC: 4A133J1 Monitoring of Arterial Pulse, Peripheral, Percutaneous Approach (ICD-10-PCS; 2024-12-07)
PROC: 0BH17EZ Insertion of Endotracheal Airway into Trachea, Via Natural or Artificial Opening (ICD-10-PCS; 2024-12-07)
PROC: 02HV33Z Insertion of Infusion Device into Superior Vena Cava, Percutaneous Approach (ICD-10-PCS; 2024-12-10)
PROC: 5A1D70Z Performance of Urinary Filtration, Intermittent, Less than 6 Hours Per Day (ICD-10-PCS; 2024-12-11)
DX: A41.52 Sepsis due to Pseudomonas (principal); D66 Hereditary factor VIII deficiency; R65.21 Severe sepsis with septic shock; J10.08 Influenza due to other identified influenza virus with other specified pneumonia; J15.1 Pneumonia due to Pseudomonas; N17.0 Acute kidney failure with tubular necrosis; J96.01 Acute respiratory failure with hypoxia; N18.6 End stage renal disease; I50.23 Acute on chronic systolic (congestive) heart failure; Z66 Do not resuscitate; Z51.5 Encounter for palliative care; I13.2 Hypertensive heart and chronic kidney disease with heart failure and with stage 5 chronic kidney disease, or end stage renal disease; I42.9 Cardiomyopathy, unspecified; D69.6 Thrombocytopenia, unspecified; Z99.2 Dependence on renal dialysis; J44.1 Chronic obstructive pulmonary disease with (acute) exacerbation; E66.9 Obesity, unspecified; E11.22 Type 2 diabetes mellitus with diabetic chronic kidney disease; F32.9 Major depressive disorder, single episode, unspecified; Z68.41 Body mass index [BMI] 40.0-44.9, adult; I48.19 Other persistent atrial fibrillation; J44.0 Chronic obstructive pulmonary disease with (acute) lower respiratory infection; E87.1 Hypo-osmolality and hyponatremia; E87.4 Mixed disorder of acid-base balance; E78.5 Hyperlipidemia, unspecified; H91.93 Unspecified hearing loss, bilateral; J45.20 Mild intermittent asthma, uncomplicated; N40.0 Benign prostatic hyperplasia without lower urinary tract symptoms; E87.5 Hyperkalemia; I45.10 Unspecified right bundle-branch block; I49.3 Ventricular premature depolarization; Z96.643 Presence of artificial hip joint, bilateral; Z96.653 Presence of artificial knee joint, bilateral; Z79.01 Long term (current) use of anticoagulants; Z79.51 Long term (current) use of inhaled steroids; Z79.84 Long term (current) use of oral hypoglycemic drugs; Z79.899 Other long term (current) drug therapy; Z86.14 Personal history of Methicillin resistant Staphylococcus aureus infection; Z86.718 Personal history of other venous thrombosis and embolism; Z87.01 Personal history of pneumonia (recurrent); Z97.4 Presence of external hearing-aid
CPT/HCPCS: 36415; 36600; 71045; 76770; 80048; 80053; 80202; 82805; 83036; 83605; 83735; 83880; 84132; 84484; 85025; 85610; 85730; 86706; 87040; 87070; 87077; 87186; 87205; 87340; 87636; 90935; 93005; 93970; 94002; 94003; 94640; 94660; 96365; 96366; 96368; 96375; 99291